=== PATIENT | female | born 2000 | race Caucasian/White ===

== ENCOUNTER 2023-05-05 08:28 | Outpatient (CLI) | payer MEDICAID, SELFPAY | END 2023-05-05 08:29 | disposition home or self-care (01) | LOC: AMB 05-06 15:55 | PROVIDERS: Visit Provider Internal Medicine | DX: R55 Syncope and collapse (principal); I49.9 Cardiac arrhythmia, unspecified | CPT/HCPCS: A0425; A0429 ==

== ENCOUNTER 2023-05-05 08:49 | Emergency (ER) | payer MEDICAID, SELFPAY ==
[2023-05-05] VITALS (26 sets, daily range): BP systolic 124–151; BP diastolic 26–108; PULSE 97–150; RESP 18; TEMP 36.6; O2SAT 96–100; BMI 32.4
[2023-05-05] MEDS: 0.9 % SODIUM CHLORIDE 1000 ml 1,000 ML IV (08:50)
[2023-05-05] MEDS: MAGNESIUM IV 4 GM/100 ML PIGGYBACK IVPB (09:22)
--- NOTE | 2023-05-05 09:34 | ED.NURSE ---
Dr. Daily speaking with metal burrer.
[2023-05-05 09:35] LABS: Basophils Absolute Auto 0.07 K/uL (0.00-0.30); Basophils Percent Auto 0.6 % (0.0-3.0); Eosinophils Absolute Auto 0.39 K/uL (0.00-0.50); Eosinophils Percent Auto 3.6 % (0.0-7.0); Hemoglobin* 10.4 gm/dL (12.0-16.0); Immature Granulocytes Abs Auto 0.15 K/uL (0.00-0.30); Immature Granulocytes Pct Auto 1.4 %; Lymphocytes Percent Auto 13.4 % (20-44); Mean Corpuscular HGB Conc 30 gm/dL (32-36); Mean Corpuscular Hemoglobin 21 pg (26-34); Mean Corpuscular Volume 72 fL (80-100); Monocytes Percent Auto 4.2 % (0.0-11.0); Neutrophils Percent Auto 76.8 % (42.0-72.0); Platelet Count* 253 K/uL (140-440); RDW Coefficient of Variation % 17.6 % (11.5-15.5); Red Blood Count 4.89 m/uL (4.00-5.20); White Blood Count* 10.88 K/uL (4.50-11.00)
[2023-05-05 09:38] LABS: Slide Review Reflex Yes
[2023-05-05 09:43] LABS: Appearance Urine Clear (Clear); Bilirubin Urine Negative (Negative); Blood Urine Negative (Negative); Color Urine Yellow (Yellow); Glucose Urine Negative (Negative); Ketones Urine Negative (Negative); Leukocyte Esterase Urine Negative (Negative); Nitrite Urine Negative (Negative); Protein Urine Negative (Negative); Specific Gravity Urine 1.015 (1.000-1.030); Urobilinogen Urine 0.2 (0.2-1.0); pH Urine 7.5 (5.0-8.5)
--- NOTE | 2023-05-05 09:45 | P.GYNCN_ITS ---
VICE PRESIDENT OF BUSINESS DEVELOPMENT - CN: HPI Data of Consult Time Seen by Provider: 09:10 Date Seen: 05/05/23 Patient: Other ( at [facility] on 05/03/2023.) Consult date: 05/05/23 Requesting Physician: Dr. Alon Daily Consult Narrative Reason for consult: other (Seizures, elevated BP, tachycardic) Narrative: Merry Vargas is a 22 year old 2 para 2 who was brought to the emergency department by EMS this morning after loosing consciousness at home. When she arrived at the ED she was nonresponsive and was having spastic movements of hands and feet. When she became conscious she was somewhat confused. She did not lose control of urination or defecation. She and her spouse, Jesús, recently moved to [place]. She delivered a term girl on 05/03/2023 at [facility] at approximately 2:00 a.m.. She was discharged home yesterday on 05/04/2023. She was told to watch her blood pressure because she had a few elevated blood pressures . She reports that she did not have any serum blood testing. She states that she has had problems with headache starting the week prior to delivery and continued . Also states that she was having small seizures prior to delivery. She states she does not feel that the physicians at [facility] were listening to her. She is anxious that she is dying. Well taking this history it was noticed that the patient was moving back and forth and states that she feels like she is going to have another episode. Prior to delivery she states that these episodes were not severe and just felt like she was going to faint. She states she took her blood pressure this morning and she thinks it was 130s/ 80s. 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 She is extremely edematous and had a blood pressure of 140's/80's on admission. Preeclampsia labs are pending. She received a magnesium 4 g IV load and is now receiving magnesium 2 g IV Q hour for at least 24 hours. If she continues to have seizures Ativan 2-4 mg IV every 10-15 minutes. The patient is being transferred to [facility] via helicopter. MEDICAL HISTORY: 1. Asthma: Uses an albuterol inhaler p.r.n. 2. Anxiety/depression: Sertraline 50 mg daily SURGICAL HISTORY: No history of surgery OBSTETRIC/GYNECOLOGIC HISTORY: Merry has had 2 pregnancies: 1. 03/09/2021. at term, male, Chuy. Father of this baby is different than the father of her most recent baby. Complications of this or delivery. 2. 05/03/2023. at term, female, Aidan. Complicated by eclampsia diagnosed PPD#2. Cis-gender, heterosexual woman Sexually transmitted infections: No Pelvic inflammatory disease: No MRSA infection: No. History of abnormal Pap smears: Has not had a Pap smear as she is not 23 years old. Nothing for contraception SOCIAL HISTORY: Relationship status: . Spouse/Partner: Graciela. 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 Illicit or Recreational drug use: No. Concerns for safety at home/work: No. Would like to discuss issues of abuse: No. Dietary restrictions: No Exercise: No FAMILY HISTORY: 1. Hypertension: Maternal grandmother. 2. Heart disease: Maternal grandfather Negative for recurrent defects, stillbirth, recurrent loss, mental disabilities, genetic or inherited disorders. ALLERGIES: NKDA cc:: CC: [facility] Social History Smoking Status: Former smoker How often do you have a drink containing alcohol: never AUDIT-C Alcohol total score: 0 Non-prescribed substance use: denies use service: No Meds Home Medications and Allergies Allergies Allergy/AdvReac Type Severity Reaction Status Date / Time No Known Drug Allergies Allergy Verified 05/05/23 08:58 VICE PRESIDENT OF BUSINESS DEVELOPMENT - Exam Physical Exam: Vital signs: Temp Pulse Resp BP Pulse Ox O2 Del Method 98 F 135 H 18 124/89 99 Room Air 05/05/23 08:59 05/05/23 09:32 05/05/23 08:59 05/05/23 09:32 05/05/23 09:32 05/05/23 08:59 Narrative: GENERAL APPEARANCE: Pleasant, , appears somewhat agitated and confused VITAL SIGNS: as noted in nursing notes HEAD: Facial edema. THYROID: no masses, nodularity, tenderness or enlargement. LUNGS: Clear to auscultation bilaterally without wheezes, rales or rhonchi. HEART: Regular rate and rhythm with normal S1 and S2. No gallop, rub or murmur. GENITOURINARY: Deferred. EXTREMITIES: 2+ bilateral lower extremity edema to the mid leg, (+)facial edema NEUROLOGIC: Postictal confusion no apparent other neurologic affects. Patient reports feeling weak. PSYCHIATRIC: Somewhat confused but is oriented x3. Slow speech. Normal eye contact. Appropriately tearful. SKIN: Warm, dry, and well perfused. Good turgor. No lesions, nodules or rashes. VICE PRESIDENT OF BUSINESS DEVELOPMENT - Results Labs Labs: Short CBC 05/05/23 Range/Units 09:15 WBC 10.88 (4.50-11.00) K/uL Hgb 10.4 L (12.0-16.0) gm/dL Hct 35.0 (33.0-51.0) % Plt Count 253 (140-440) K/uL Urine 05/05/23 Range/Units 09:08 Urine Color Yellow (Yellow) Urine Appearance Clear (Clear) Urine pH 7.5 (5.0-8.5) Ur Specific [place] 1.015 (1.000-1.030) Urine Protein Negative (Negative) Urine Glucose (UA) Negative (Negative) Assessment and Plan Assessment and plan (1) Eclampsia: Status: Acute Plan 1. Serum preeclampsia labs ordered, pending 2. Magnesium 4 g IV load completed. Running magnesium IV 2 g/hour. 3. If the patient has more seizures: Ativan IV 2-4 g IV
[2023-05-05] MEDS: LACTATED RINGERS 1000 ML 1,000 ML 75 ML IV (09:47)
[2023-05-05 09:50] LABS: Albumin* 3.5 g/dL (3.3-5.0); Chloride* 108 mmol/L (96-114)
--- NOTE | 2023-05-05 09:50 | ED_ITS ---
HPI - Syncope General Chief Complaint: Syncope/Fainted Stated Complaint: syncope Time Seen by Provider: 05/05/23 09:47 History of Present Illness HPI narrative: Patient is a 22-year-old woman who is 2 para 2 who had normal term gestation baby 2 days ago. Patient had some elevated blood pressures during her and was told what her blood pressure carefully at home. Patient was discharged from [facility] yesterday and has been having syncopal and presyncopal episodes at home. Patient has not been feeling well. She has had a small amount of vaginal bleeding. Today she had a major syncopal episode and actually fell to the ground. Her called 911 she was brought to the emergency room where she was nonverbal with repetitive activities of the head neck. She did come out of this and did have some post echo confusion but no incontinence. Patient's blood pressure and pulse are noted to be elevated. OBGYN was immediately called to the bedside and they graciously came by. Related Data Allergies Allergy/AdvReac Type Severity Reaction Status Date / Time No Known Drug Allergies Allergy Verified 05/05/23 08:58 Review of Systems Status of ROS: Reports: unobtainable due to mental status PFSH PFS Social History Smoking Status: Former smoker How often do you have a drink containing alcohol: never AUDIT-C Alcohol total score: 0 Non-prescribed substance use: denies use service: No Exam Narrative: Exam Narrative: Postictal exam EXAM GENERAL: Patient appears to be in moderate distress with tachycardia hypertension. EYES: No scleral icterus. LYMPH: No supraclavicular or cervical lymphadenopathy. SKIN: Visible skin seen during exam normal or with benign process only. EXT: 2+ lower extremity edema. HEART: Tachycardic LUNGS: Clear to auscultation bilaterally with no crackles or wheezes. ABD: Soft, non tender, non distended. PSYCH: Good eye contact, speech is not pressured. Const: Vital Signs, click to edit/add: Vital Signs - 24 hr 05/05/23 08:59 05/05/23 09:21 05/05/23 09:26 Temperature 98 F Pulse Rate 135 H 143 H Pulse Rate [Apical ] 107 H Respiratory Rate 18 Blood Pressure 148/84 H Blood Pressure [Le ft Upper Arm] 147/108 H Pulse Oximetry 98 99 100 Oxygen Delivery Me thod Room Air 05/05/23 09:30 05/05/23 09:32 05/05/23 09:33 Temperature Pulse Rate 138 H 135 H 126 H Pulse Rate [Apical ] Respiratory Rate Blood Pressure 124/89 Blood Pressure [Le ft Upper Arm] Pulse Oximetry 98 99 100 Oxygen Delivery Me thod 05/05/23 09:40 05/05/23 09:42 Temperature Pulse Rate 137 H 134 H Pulse Rate [Apical ] Respiratory Rate Blood Pressure 140/87 H Blood Pressure [Le ft Upper Arm] Pulse Oximetry 100 99 Oxygen Delivery Me thod Course Course Hospital Course: Patient seen and examined. OBGYN called immediately as patient is eclamptic. Vital Signs Vital signs: Initial Vital Signs Temperature 98 F 05/05/23 08:59 Temperature Source Temporal Artery Scan 05/05/23 08:59 Pulse Rate 107 H 05/05/23 08:59 Pulse Rhythm Regular 05/05/23 08:59 Respiratory Rate 18 05/05/23 08:59 Blood Pressure 147/108 H 05/05/23 08:59 Blood Pressure Mean 121 H 05/05/23 08:59 Blood Pressure Position Supine 05/05/23 08:59 Pulse Oximetry 98 05/05/23 08:59 Oxygen Delivery Method Room Air 05/05/23 08:59 Vital Signs Temperature 98 F 05/05/23 08:59 Pulse Rate 107 H 05/05/23 08:59 Respiratory Rate 18 05/05/23 08:59 Blood Pressure 147/108 H 05/05/23 08:59 Pulse Oximetry 98 05/05/23 08:59 Oxygen Delivery Method Room Air 05/05/23 08:59 Temperature 98 F 05/05/23 08:59 Pulse Rate 134 H 05/05/23 09:42 Respiratory Rate 18 05/05/23 08:59 Blood Pressure 140/87 H 05/05/23 09:42 Pulse Oximetry 99 05/05/23 09:42 Oxygen Delivery Method Room Air 05/05/23 08:59 MDM - Syncope MDM Narrative Medical decision making narrative: Patient is a 22-year-old woman who presents with a clamp see a. OBGYN called to the bedside. He was established patient received IV magnesium. She was medically stabilized with IV fluids and we did have the [place] supervisor from [facility] come down to help with care. Patient is receiving IV magnesium and standard treatment. We have arranged for transfer to the ICU at [facility] she will be gone by air. She is leaving and stable condition but I am still very concerned. Critical care time 1:00 hour. Differential Diagnosis Differential diagnosis: Likely syncope due to orthostatic hypotension, vasovagal syncope, complete atrioventricular block, subarachnoid hemorrhage, pulmonary embolism and dehydration Lab Data Labs: Lab Results 05/05/23 05/05/23 Range/Units 09:08 09:15 WBC 10.88 (4.50-11.00) K/uL RBC 4.89 (4.00-5.20) m/uL Hgb 10.4 L (12.0-16.0) gm/dL Hct 35.0 (33.0-51.0) % MCV 72 L (80-100) fL MCH 21 L (26-34) pg MCHC 30 L (32-36) gm/dL RDW Coeff of [place] 17.6 H (11.5-15.5) % Plt Count 253 (140-440) K/uL Neut % (Auto) 76.8 H (42.0-72.0) % Lymph % (Auto) 13.4 L (20-44) % [place] % (Auto) 4.2 (0.0-11.0) % Eos % (Auto) 3.6 (0.0-7.0) % Baso % (Auto) 0.6 (0.0-3.0) % Neut # (Auto) 8.40 H (1.7-7.0) K/uL Lymph # (Auto) 1.50 (0.90-2.90) K/uL [place] # (Auto) 0.50 (0.00-0.90) K/UL Eos # (Auto) 0.39 (0.00-0.50) K/uL Baso # (Auto) 0.07 (0.00-0.30) K/uL Abs Immat Gran (auto) 0.15 (0.00-0.30) K/uL Imm/Tot Granulo (auto) 1.4 % Urine Color Yellow (Yellow) Urine Appearance Clear (Clear) Urine pH 7.5 (5.0-8.5) Ur Specific [place] 1.015 (1.000-1.030) Urine Protein Negative (Negative) Urine Glucose (UA) Negative (Negative) Urine Ketones Negative (Negative) Urine Blood Negative (Negative) Urine Nitrite Negative (Negative) Urine Bilirubin Negative (Negative) Urine Urobilinogen 0.2 (0.2-1.0) Ur Leukocyte Esterase Negative (Negative) Discharge Plan Discharge Clinical Impression: Eclampsia Patient Disposition: Xfer [facility] Discharge Location: [facility] Condition: Critical Activity Level: Other Discharge Diet: Other Stand Alone Forms: MyHealth Info Instructions
[2023-05-05 09:51] LABS: Potassium* 3.3 mmol/L (3.6-5.1); Sodium* 139 mmol/L (135-149)
[2023-05-05 09:53] LABS: Alkaline Phosphatase* 80 U/L (40-150); Aspartate Amino Transferase* 24 U/L (12-35); Bilirubin Total* 0.3 mg/dL (0.1-1.5); Blood Urea Nitrogen* 5 mg/dL (5-24); Carbon Dioxide* 24 mmol/L (20-32); Creatinine* 0.7 mg/dL (0.5-1.5); Est. Creatinine Clearance* 124.67; Estimated Glomerular Filt Rate 127 ml/min; Total Protein* 6.6 g/dL (6.0-8.3)
[2023-05-05 09:54] LABS: Alanine Aminotransferase* 17 U/L (4-35); Calcium* 8.7 mg/dL (8.4-10.6); Glucose* 88 mg/dL (60-115)
[2023-05-05 10:01] LABS: Slide Review Acceptable Review (Acceptable)
[2023-05-05 10:06] LABS: Troponin I* < 0.01 ng/mL (0.01-0.04)
== END 2023-05-05 10:45 | disposition short-term general hospital (02) ==
PROVIDERS: Emergency Provider Internal Medicine
DX: O15.2 Eclampsia complicating the puerperium (principal)
CPT/HCPCS: 36415; 80053; 81003; 84484; 85025; 87040; 93005; 96365; 96366; 96375; 99284; 99291; J3475; J7030; J7120

== ENCOUNTER 2023-05-08 18:15 | Emergency (ER) | payer MEDICAID, SELFPAY ==
[2023-05-08] VITALS (17 sets, daily range): BP systolic 143–150; BP diastolic 86–109; PULSE 79–108; RESP 20; TEMP 37; O2SAT 96–98; BMI 30.5
--- NOTE | 2023-05-08 18:50 | ED.NURSE ---
patient is concerned of having another seizure and is feeling lightheaded and tinging in the back of the head. rechecked bp 145/109. talking with patient taken Seroquel 25 mg tonight at 1800 as missed mourning dose. Updated Dr. Bray of patient's concern.
--- NOTE | 2023-05-08 19:16 | ED.GENADULT ---
HPI - General Adult General Chief complaint: Headache/Migraine Stated complaint: high BP, headache, nausea, clammy Time Seen by Provider: 05/08/23 18:37 History of Present Illness HPI narrative: This 22-year-old female is 4 days and 2 days status post eclampsia seizure. She was seen here 2 days ago with a seizure and transferred to [facility]. She was discharged yesterday. She comes in today stating that she feels some tingling sensation and wonders if this is a precursor to another seizure. She states that she does have some generalized anxiety and during her hospitalization she had 2 visits with psychiatrist as there was apparently some realization that there is an anxiety component to her symptoms. She does report a mild to moderate headache. She did have lots of pedal edema a couple days ago but this has completely resolved. The patient did receive magnesium sulfate for 24 hours according to protocol for eclampsia. She was not placed on a blood pressure medicine and has a follow-up appointment to review that possible need. She arrives here with blood pressure in the 140s for systolic value and the diastolic value around 90. The patient is breast-feeding. Related Data Previous Rx's Medication Instructions Recorded nifedipine 30 mg tablet,extended 30 mg PO DAILY #30 tabs 05/08/23 release Allergies Allergy/AdvReac Type Severity Reaction Status Date / Time No Known Drug Allergies Allergy Verified 05/08/23 18:23 Review of Systems Status of ROS: Reports: 10 or more systems reviewed and unremarkable except as noted in History and below Narrative: Constitutional: No fevers, no weight gain or loss. Eyes: No discharge. No vision changes. HENT: No congestion, no sore throat, no ear pain. Cardiovascular: No chest pain, no palpitations. Respiratory: No shortness of breath, no wheezes, no cough. Gastrointestinal: No vomiting, no diarrhea. Genitourinary: No dysuria, no hematuria. Musculoskeletal: Normal range of motion. Skin: No rashes, no pruritis. Neurological: No dizziness, weakness, sensory change, speech change. Endo/Heme/Allergies: No bruising or bleeding. No polydipsia. Pysch: no suicidality, no insomnia. All other systems reviewed and are negative. [facility] Social History Smoking Status: Former smoker Do you use any of these nicotine containing products: None Second hand tobacco smoke exposure: No How often do you have a drink containing alcohol: never How often do you have six or more drinks on one occasion: Never AUDIT-C Alcohol total score: 0 Non-prescribed substance use: denies use service: No Exam Narrative: Exam Narrative: Constitutional: Well-developed, well-nourished, no acute distress. HEENT: Normocephalic, atraumatic. Neck: Normal range of motion. Nontender. Supple. Heart: Regular. No murmurs. Normal rate. Intact distal pulses. Lungs: Clear to auscultation. No chest discomfort. No wheezes, rhonchi, or rales. Abdomen: Normal bowel sounds. A abdomen. Genitalia: Deferred. Back: No midline tenderness. Normal range of motion. Extremities: Normal range of motion. No injury. Skin: Intact. No rash. Warm. No erythema or pallor. Neurologic: No altered sensation. No weakness. Alert and oriented. Psychiatric: No suicidality. No anxiety or depression. No insomnia. Nursing notes and vitals signs are reviewed. Const: Vital Signs, click to edit/add: Vital Signs - 24 hr 05/08/23 18:23 05/08/23 18:35 05/08/23 18:36 Temperature 98.6 F Pulse Rate 93 85 Pulse Rate [Pulse Oximeter] 79 Respiratory Rate 20 Blood Pressure 144/90 H Blood Pressure [Ri ght Upper Arm] 149/93 H Pulse Oximetry 97 97 97 Oxygen Delivery Me thod Room Air 05/08/23 18:45 05/08/23 18:46 05/08/23 19:00 Temperature Pulse Rate 88 99 89 Pulse Rate [Pulse Oximeter] Respiratory Rate Blood Pressure 145/109 H Blood Pressure [Ri ght Upper Arm] Pulse Oximetry 98 98 97 Oxygen Delivery Me thod 05/08/23 19:01 Temperature Pulse Rate 89 Pulse Rate [Pulse Oximeter] Respiratory Rate Blood Pressure 145/95 H Blood Pressure [Ri ght Upper Arm] Pulse Oximetry 96 Oxygen Delivery Me thod Course Vital Signs Vital signs: Initial Vital Signs Temperature 98.6 F 05/08/23 18:23 Temperature Source Temporal Artery Scan 05/08/23 18:23 Pulse Rate 79 05/08/23 18:23 Pulse Rhythm Regular 05/08/23 18:23 Respiratory Rate 20 05/08/23 18:23 Blood Pressure 149/93 H 05/08/23 18:23 Blood Pressure Mean 111 H 05/08/23 18:23 Blood Pressure Position Supine 05/08/23 18:23 Pulse Oximetry 97 05/08/23 18:23 Oxygen Delivery Method Room Air 05/08/23 18:23 Vital Signs Temperature 98.6 F 05/08/23 18:23 Pulse Rate 79 05/08/23 18:23 Respiratory Rate 20 05/08/23 18:23 Blood Pressure 149/93 H 05/08/23 18:23 Pulse Oximetry 97 05/08/23 18:23 Oxygen Delivery Method Room Air 05/08/23 18:23 Temperature 98.6 F 05/08/23 18:23 Pulse Rate 89 05/08/23 19:01 Respiratory Rate 20 05/08/23 18:23 Blood Pressure 145/95 H 05/08/23 19:01 Pulse Oximetry 96 05/08/23 19:01 Oxygen Delivery Method Room Air 05/08/23 18:23 Medical Decision Making MDM Narrative Medical decision making narrative: This patient comes in 4 days and did have a eclamptic seizure 2 days ago. She does arrive with blood pressure at around 145 systolic. Her blood pressure remained at this level throughout her stay here. She was just discharged from the hospital yesterday and there are plans to follow-up with her regular doctor to consider ongoing antihypertensive management. Currently she is not taking any such medicine. She reports a mild headache but states that her pedal edema is completely resolved. She does have some anxiety related to these recent circumstances and prior to this with some generalized anxiety. The patient did receive an oral dose of Zofran and [place]. I did connect with the OBGYN physician on-call, Dr. Baez, who recommended nifedipine 30 mg daily. The patient is okay to return home and does have follow-up appointment for ongoing management. A prescription for nifedipine is provided. The patient also received a 30 mg dose orally here in the emergency department. Discharge Plan Discharge Clinical Impression: Essential hypertension in patient Patient Disposition: Home, Self-Care Condition: Stable Additional Instructions: Take nifedipine as prescribed. Follow up with MD appointment as scheduled. Return if worsening. Prescriptions: New nifedipine 30 mg tablet extended release 30 mg PO DAILY Qty: 30 2RF Follow Up/Referrals: Provider,Not a Local [Primary Care Provider] - Stand Alone Forms: MyHealth Info Instructions
[2023-05-08] MEDS: ONDANSETRON ODT 4 MG TAB PO (19:20)
[2023-05-08] MEDS: NIFEdipine 30 MG TAB.ER.24 PO (20:21)
== END 2023-05-08 20:28 | disposition home or self-care (01) ==
PROVIDERS: Emergency Provider Emergency Medicine Emergency Medical Services
DX: O16.5 Unspecified maternal hypertension, complicating the puerperium (principal)
CPT/HCPCS: 99283; 99284; A9270

== ENCOUNTER 2023-05-10 16:11 | Emergency (ER) | payer MEDICAID, SELFPAY ==
[2023-05-10] VITALS (7 sets, daily range): BP systolic 121–129; BP diastolic 73–80; PULSE 79–98; RESP 18; TEMP 37.1; O2SAT 97–98; BMI 30.5
[2023-05-10 16:38] LABS: Appearance Urine Cloudy (Clear); Bilirubin Urine Negative (Negative); Blood Urine Trace-intact (Negative); Color Urine Yellow (Yellow); Glucose Urine Negative (Negative); Ketones Urine Negative (Negative); Leukocyte Esterase Urine Negative (Negative); Nitrite Urine Negative (Negative); Protein Urine Negative (Negative); Urobilinogen Urine 0.2 (0.2-1.0); pH Urine 7.5 (5.0-8.5)
--- NOTE | 2023-05-10 16:38 | CRLHL7_ITS ---
For Patients: As a result of the Century Cures Act, medical imaging exams and procedure reports are released immediately into your electronic medical record. You may view this report before your referring provider. If you have questions, please contact your health care provider. INDICATION: Right flank pain. TECHNIQUE: CT abdomen and pelvis without contrast. Permanently recorded images are archived. COMPARISON: None. FINDINGS: Lower chest: Unremarkable. Liver: Normal in size and attenuation. No suspicious masses. Gallbladder and bile ducts: No stones or inflammation. No biliary dilatation. Pancreas: Unremarkable. No mass or inflammation. Spleen: Normal in size. No masses. Adrenal glands: Normal in size. No nodules. Kidneys, Ureters, and Bladder: No suspicious renal masses, stones, or hydronephrosis. Unremarkable ureters. Normal bladder. GI tract: Unremarkable. Normal in caliber. No sign of inflammation. Normal appendix. Vasculature: Abdominal aorta is normal in caliber. Lymph nodes: No lymphadenopathy. Peritoneum/Abdominal Wall: Unremarkable. No free air or significant free fluid. Pelvis: Bulky uterus with increased myometrial thickness. Otherwise limited evaluation due to noncontrast technique. No adnexal mass. Bones: Unremarkable for age. IMPRESSION: No acute findings in the abdomen and pelvis. No urolith or evidence of obstructive uropathy. Bulky uterus with increased myometrial thickness. This could be on the basis of adenomyosis or multiple fibroids. Recommend pelvic ultrasound for further evaluation. Please note that all CT scans at this facility use dose modulation, iterative reconstruction, and/or weight-based dosing when appropriate to reduce radiation dose to as low as reasonably achievable. Dictated by Cruz Garrido MD @ 05/10/2023 6:23:27 PM (Electronically Signed)
--- NOTE | 2023-05-10 16:39 | CRLHL7_ITS ---
For Patients: As a result of the Century Cures Act, medical imaging exams and procedure reports are released immediately into your electronic medical record. You may view this report before your referring provider. If you have questions, please contact your health care provider. INDICATION: Shortness of breath TECHNIQUE: Chest 2 view. Permanently recorded images are archived. COMPARISON: None. FINDINGS: Cardiovascular and mediastinum: Heart size and vasculature are normal in caliber and appearance. Lungs and pleural spaces: The lungs are clear. No pleural effusion or pneumothorax. Bones and soft tissues: Mild dextroconvex curvature of the spine. Otherwise, unremarkable for age. IMPRESSION: No evidence of an acute pulmonary process. Dictated by Cruz Garrido MD @ 05/10/2023 6:23:48 PM (Electronically Signed)
--- NOTE | 2023-05-10 16:39 | CRLHL7_ITS ---
For Patients: As a result of the Century Cures Act, medical imaging exams and procedure reports are released immediately into your electronic medical record. You may view this report before your referring provider. If you have questions, please contact your health care provider. INDICATION: Vision changes TECHNIQUE: CT of the head without contrast. Coronal and sagittal reformats. Bone and soft tissue algorithms. COMPARISON: No prior studies available for comparison at this institution. FINDINGS: No acute intracranial hemorrhage or extraaxial collection. No evidence of acute cortical infarction. No mass effect or midline shift. The ventricles and sulci are age appropriate. Orbital contents are normal. No calvarial fractures. Unremarkable pituitary gland and sella. Unremarkable optic chiasm. No lytic or sclerotic osseous lesions within the calvarium or skull base. Scalp and other imaged soft tissue structures are normal. Mastoid air cells are clear. Rightward deviation of the nasal septum. Mild polypoid mucosal thickening in the right maxillary sinus. No evidence of dural venous sinus thrombosis. IMPRESSION: No acute intracranial abnormality. Please note that all CT scans at this facility use dose modulation, iterative reconstruction, and/or weight-based dosing when appropriate to reduce radiation dose to as low as reasonably achievable. Dictated by Ruddy Pa MD @ 05/10/2023 5:57:42 PM (Electronically Signed)
[2023-05-10 16:47] LABS: Amorphous Sediment Urine Few; RBC Urine 0-2 (0-2); Squamous Epithelial Cell Urine Few (None-Few); WBC Urine 0-2 (0-5)
--- NOTE | 2023-05-10 17:06 | ED_ITS ---
HPI - General Adult General Date Seen: 05/10/23 Chief complaint: Abdominal Pain Stated complaint: R side pain Time Seen by Provider: 05/10/23 16:14 Source: patient Mode of arrival: ambulatory Limitations: no limitations History of Present Illness HPI narrative: Patient is a 22-year-old female with most recent delivery 05/03 with a history of eclampsia 6 days ago and essential hypertension present to to the emergency department for multiple complaints. She states since her seizure she has been noticing worsening vision in her right side. She has also been having a mild headache. She took Tylenol for the pain with only helped minimally. She last took it at 09:00. He she also states she has been having right flank pain. Symptoms have been radiated to the right upper quadrant but pain is worse on the right flank. This has been going for the past couple days. She has also nose with a past couple days she has been having foul-smelling urine. She states that has been getting worse but denies dysuria or polyuria. She says she has been eating and drinking well without issues. Has been having some nausea but no vomiting. Does states she has had some mild shortness of breath compared to her baseline denies any chest pain. She states she did not get short of breath walking from her car to the triage area but the states she was more short of breath than normal walking up multiple flights of stairs today. Denies fevers, chills, diarrhea, constipation, weakness, numbness. Related Data Home Medications Medication Instructions Recorded Confirmed magnesium sulfate PO 05/10/23 [id number] ps-folate 1 PO 05/10/23 quetiapine 50 mg tablet (Seroquel) 50 mg PO QHS 05/10/23 05/10/23 valacyclovir 500 mg tablet 500 mg PO DAILY 05/10/23 05/10/23 (Valtrex) Previous Rx's Medication Instructions Recorded nifedipine 30 mg tablet,extended 30 mg PO DAILY #30 tabs 05/08/23 release Allergies Allergy/AdvReac Type Severity Reaction Status Date / Time No Known Drug Allergies Allergy Verified 05/08/23 18:23 Review of Systems Status of ROS: Reports: 10 or more systems reviewed and unremarkable except as noted in History and below PFSH PFS Social History Smoking Status: Former smoker Do you use any of these nicotine containing products: None Second hand tobacco smoke exposure: No How often do you have a drink containing alcohol: never How often do you have six or more drinks on one occasion: Never AUDIT-C Alcohol total score: 0 Non-prescribed substance use: denies use service: No Exam Narrative: Exam Narrative: Const: Well-nourished, Well-developed, in mild distress Eyes: PERRL, no conjunctival injection, and symmetrical lids ENMT: Atraumatic external nose and ears. Moist mucous membranes. Neck: Symmetric, trachea midline, No thyromegaly. CVS: RRR, No murmurs or gallops. Peripheral pulses 2+ and equal in all extremities RESP: Unlabored respiratory effort. Clear to auscultation bilaterally. GI: Minimal tenderness right upper quadrant. Right CVA tenderness. Nondi stended, No rebound or guarding. MSK:Extremities w/o deformity, Normal Active ROM Skin: Warm, Dry. No rashes or lesions. Neuro: Normal Muscle tone, No focal neurological deficits. Psych: Awake, Alert, & Oriented x3. Appropriate mood and affect. Const: Vital Signs, click to edit/add: Vital Signs - 24 hr 05/10/23 16:15 05/10/23 17:07 05/10/23 17:31 Temperature 98.7 F Pulse Rate 94 98 Pulse Rate [Pulse Oximeter] 92 Respiratory Rate 18 Blood Pressure Blood Pressure [Ri ght Upper Arm] 126/80 Pulse Oximetry 98 98 97 Oxygen Delivery Me thod Room Air 05/10/23 17:54 05/10/23 17:55 05/10/23 18:00 Temperature Pulse Rate 79 86 92 Pulse Rate [Pulse Oximeter] Respiratory Rate Blood Pressure 129/73 Blood Pressure [Ri ght Upper Arm] Pulse Oximetry 98 98 98 Oxygen Delivery Me thod 05/10/23 18:01 Temperature Pulse Rate 87 Pulse Rate [Pulse Oximeter] Respiratory Rate Blood Pressure 121/79 Blood Pressure [Ri ght Upper Arm] Pulse Oximetry 97 Oxygen Delivery Me thod Course Vital Signs Vital signs: Initial Vital Signs Temperature 98.7 F 05/10/23 16:15 Temperature Source Temporal Artery Scan 05/10/23 16:15 Pulse Rate 92 05/10/23 16:15 Respiratory Rate 18 05/10/23 16:15 Blood Pressure 126/80 05/10/23 16:15 Blood Pressure Mean 95 05/10/23 16:15 Blood Pressure Position Supine 05/10/23 16:15 Pulse Oximetry 98 05/10/23 16:15 Oxygen Delivery Method Room Air 05/10/23 16:15 Vital Signs Temperature 98.7 F 05/10/23 16:15 Pulse Rate 92 05/10/23 16:15 Respiratory Rate 18 05/10/23 16:15 Blood Pressure 126/80 05/10/23 16:15 Pulse Oximetry 98 05/10/23 16:15 Oxygen Delivery Method Room Air 05/10/23 16:15 Temperature 98.7 F 05/10/23 16:15 Pulse Rate 87 05/10/23 18:01 Respiratory Rate 18 05/10/23 16:15 Blood Pressure 121/79 05/10/23 18:01 Pulse Oximetry 97 05/10/23 18:01 Oxygen Delivery Method Room Air 05/10/23 16:15 Medical Decision Making MDM Narrative Medical decision making narrative: Patient is a 22-year-old female presenting for multiple complaints. First complaint is a headache and some visual disturbance her right eye. This has been going on since her eclamptic seizure 6 days ago. She does take Tylenol for headache movement minimal improvement in symptoms. With a recent being and the seizure we will do a head CT to rule out any intracranial hemorrhages or other concerning acute abnormalities. She is also having some shortness of breath. This is being off for few days but she states it is mild. Her blood pressure is stable and she does not appear to be suffering from preec lampsia at this time. We will order a chest x-ray, EKG, troponin. She is PERC negative and D-dimer is not indicated. She is complaining of right flank pain has been going on since her seizure the radiates to her right upper quadrant. CBC, CMP, urinalysis and abdominal CT without contrast were ordered. Patient's lab work returned showing no concerning abnormalities. She does appear to have a microcytic anemia that has improved since she was previously here. She follow-up with a primary care provider for that. Urine does not appear to show a UTI. BMP shows no concerning abnormalities. Review a head CT which shows no acute abnormalities. Visual acuity shows 20/25 on the right eye and 20/20 on the left. Since this has been going on for few days I believe she can follow-up both patent with optometry with the minimal change in her vision. Chest x-ray shows no acute abnormalities. Troponin EKG showed no acute abnormalities. Abdominal CT also shows no acute abnormalities within a bulky uterus. Since she is at this time notes that the likely cause which we will have her follow-up with chemical waste management technician. Is not clear what is causing her vision changes at this time but she will follow up outpatient. For shortness of breath is also unclear exactly what could be secondary to microcytic anemia but she does have since giving in her seizure. I recommend she follow up with primary care for this. Her abdominal and flank pain is most likely muscle strain secondary to sequela from her seizure. She is doing well at this time. She will be discharged home. She is agreeable to this plan Lab Data Labs: Lab Results 05/10/23 05/10/23 Range/Units 16:33 16:58 WBC 10.81 (4.50-11.00) K/uL RBC 5.38 H (4.00-5.20) m/uL Hgb 11.5 L (12.0-16.0) gm/dL Hct 38.8 (33.0-51.0) % MCV 72 L (80-100) fL MCH 21 L (26-34) pg MCHC 30 L (32-36) gm/dL RDW Coeff of [place] 18.8 H (11.5-15.5) % Plt Count 384 (140-440) K/uL Neut % (Auto) 72.6 H (42.0-72.0) % Lymph % (Auto) 16.6 L (20-44) % [place] % (Auto) 6.8 (0.0-11.0) % Eos % (Auto) 3.1 (0.0-7.0) % Baso % (Auto) 0.6 (0.0-3.0) % Neut # (Auto) 7.80 H (1.7-7.0) K/uL Lymph # (Auto) 1.80 (0.90-2.90) K/uL [place] # (Auto) 0.70 (0.00-0.90) K/UL Eos # (Auto) 0.33 (0.00-0.50) K/uL Baso # (Auto) 0.07 (0.00-0.30) K/uL Abs Immat Gran (auto) 0.03 (0.00-0.30) K/uL Imm/Tot Granulo (auto) 0.3 % Sodium 137 (135-149) mmol/L Potassium 3.7 (3.6-5.1) mmol/L Chloride 105 (96-114) mmol/L Carbon Dioxide 24 (20-32) mmol/L BUN 20 (5-24) mg/dL Creatinine 0.9 (0.5-1.5) mg/dL Estimated Creat Clear 96.96 Estimated GFR 94 ml/min Glucose 93 (60-115) mg/dL Calcium 9.3 (8.4-10.6) mg/dL Troponin I < 0.01 L (0.01-0.04) ng/mL Urine Color Yellow (Yellow) Urine Appearance Cloudy A (Clear) Urine pH 7.5 (5.0-8.5) Ur Specific [place] 1.020 (1.000-1.030) Urine Protein Negative (Negative) Urine Glucose (UA) Negative (Negative) Urine Ketones Negative (Negative) Urine Blood Trace-intact A (Negative) Urine Nitrite Negative (Negative) Urine Bilirubin Negative (Negative) Urine Urobilinogen 0.2 (0.2-1.0) Ur Leukocyte Esterase Negative (Negative) Urine RBC 0-2 (0-2) Urine WBC 0-2 (0-5) Ur Squamous Epith Cells Few (None-Few) Amorphous Sediment Few A (None) Urine Bacteria None (None) ECG Data Attestation: I personally reviewed and interpreted this ECG as follows: (Normal sinus rhythm with rate of 94 beats per minute, occasional PVCs, normal axis, normal intervals, no ST or T-wave abnormalities.) Prior ECG tracings: available for review (05/05/2023) Discharge Plan Discharge Clinical Impression: Muscle strain, Microcytic anemia Patient Disposition: Home, Self-Care Condition: Stable Instructions: Anemia (ED) Additional Instructions: Your head CT showed no concerning abnormalities. Her visual acuity was only slightly. I recommend he follow up with Ophthalmology or Optometry if your visual acuity continues to worsen. Her shortness of breath could be secondary to her mild microcytic anemia. Unsure if this is a chronic issue or not I do recommend you follow-up with your primary care provider. This could be secondary to your recent and may improve over time on its own. Your flank pain is likely a muscle strain as is a results of your recent seizure. The abdominal CT shows no concerning abnormalities. It does show an enlarged uterus but this is normal after in will be back to its normal size most likely within 4 weeks. If symptoms continue to worsen to follow up with the chemical waste management technician Return emergency department for any new or worsening symptoms. Prescriptions: No Action nifedipine 30 mg tablet extended release 30 mg PO DAILY Qty: 30 2RF valacyclovir [Valtrex] 500 mg tablet 500 mg PO DAILY quetiapine [Seroquel] 50 mg tablet 50 mg PO QHS [id number] ps-folate 1 PO magnesium sulfate PO Follow Up/Referrals: Provider,Not a Local [Primary Care Provider] - Stand Alone Forms: [employer] Info Instructions
[2023-05-10 17:07] LABS: Basophils Absolute Auto 0.07 K/uL (0.00-0.30); Basophils Percent Auto 0.6 % (0.0-3.0); Eosinophils Absolute Auto 0.33 K/uL (0.00-0.50); Eosinophils Percent Auto 3.1 % (0.0-7.0); Hematocrit 38.8 % (33.0-51.0); Hemoglobin* 11.5 gm/dL (12.0-16.0); Immature Granulocytes Abs Auto 0.03 K/uL (0.00-0.30); Immature Granulocytes Pct Auto 0.3 %; Lymphocytes Percent Auto 16.6 % (20-44); Mean Corpuscular HGB Conc 30 gm/dL (32-36); Mean Corpuscular Hemoglobin 21 pg (26-34); Mean Corpuscular Volume 72 fL (80-100); Monocytes Percent Auto 6.8 % (0.0-11.0); Neutrophils Percent Auto 72.6 % (42.0-72.0); Platelet Count* 384 K/uL (140-440); RDW Coefficient of Variation % 18.8 % (11.5-15.5); Red Blood Count 5.38 m/uL (4.00-5.20); White Blood Count* 10.81 K/uL (4.50-11.00)
[2023-05-10 17:23] LABS: Slide Review Reflex No
[2023-05-10 17:24] LABS: Chloride* 105 mmol/L (96-114); Sodium* 137 mmol/L (135-149)
[2023-05-10 17:25] LABS: Potassium* 3.7 mmol/L (3.6-5.1)
[2023-05-10 17:27] LABS: Creatinine* 0.9 mg/dL (0.5-1.5); Est. Creatinine Clearance* 96.96; Estimated Glomerular Filt Rate 94 ml/min
[2023-05-10 17:28] LABS: Blood Urea Nitrogen* 20 mg/dL (5-24); Calcium* 9.3 mg/dL (8.4-10.6); Carbon Dioxide* 24 mmol/L (20-32); Glucose* 93 mg/dL (60-115)
[2023-05-10 17:44] LABS: Troponin I* < 0.01 ng/mL (0.01-0.04)
== END 2023-05-10 18:55 | disposition home or self-care (01) ==
PROVIDERS: Emergency Provider Student in an Organized Health Care Education/Training Program
DX: S39.011A Strain of muscle, fascia and tendon of abdomen, initial encounter (principal); D50.8 Other iron deficiency anemias
CPT/HCPCS: 36415; 70450; 71046; 74176; 80048; 81001; 84484; 85025; 93005; 99283; 99284; 99285

== ENCOUNTER 2023-05-13 23:15 | Emergency (ER) | payer MEDICAID, SELFPAY ==
[2023-05-13 23:21] VITALS: BP 126/79; PULSE 103; RESP 16; TEMP 36.1; O2SAT 97; BMI 30.5
--- NOTE | 2023-05-13 23:33 | ED_ITS ---
HPI - General Chief complaint: Vaginal Bleeding Stated complaint: 10 days , cramping and heavy bleeding. Time Seen by Provider: 05/13/23 23:17 History of Present Illness HPI Narrative: Patient is a 22-year-old woman who delivered a baby approximately 10 days ago who was seen 2 days later with eclampsia with seizure. She was stabilized on IV magnesium and was sent to the ICU at [place]. She is discharged home the next day and has been in 2 other times for complaints of visual changes headaches body aches fatigue and malaise. Workup has been unremarkable patient was started on Procardia for her blood pressure and blood pressure looks great at 126/79. Patient has had low level vaginal bleeding since her delivery but her bleeding has picked up in tonight to greater than 1 pad per hour. Patient is having no nausea no vomiting no fevers no chills and otherwise has been feeling better with regards to her other concerns. She states that her vaginal drainage is foul smelling. She has no dysuria no other related symptoms. No abdominal pain or fever. Related Data Home Medications Medication Instructions Recorded Confirmed magnesium sulfate PO 05/10/23 [id number] ps-folate 1 PO 05/10/23 quetiapine 50 mg tablet (Seroquel) 50 mg PO QHS 05/10/23 05/13/23 valacyclovir 500 mg tablet 500 mg PO DAILY 05/10/23 05/13/23 (Valtrex) Previous Rx's Medication Instructions Recorded nifedipine 30 mg tablet,extended 30 mg PO DAILY #30 tabs 05/08/23 release Allergies Allergy/AdvReac Type Severity Reaction Status Date / Time No Known Drug Allergies Allergy Verified 05/13/23 23:27 Review of Systems Status of ROS: Reports: 10 or more systems reviewed and unremarkable except as noted in History and below [facility] Medical History Seizure ?R56.9 - Unspecified convulsions (ICD-10) Preeclampsia ?O14.90 - Unspecified pre-eclampsia, unspecified trimester (ICD-10) Social History Smoking Status: Former smoker Do you use any of these nicotine containing products: None Second hand tobacco smoke exposure: No How often do you have a drink containing alcohol: never How often do you have six or more drinks on one occasion: Never AUDIT-C Alcohol total score: 0 Non-prescribed substance use: denies use service: No Exam Narrative: Exam Narrative: EXAM GENERAL: Patient appears comfortable and well. EYES: No scleral icterus. LYMPH: No supraclavicular or cervical lymphadenopathy. SKIN: Visible skin seen during exam normal or with benign process only. EXT: No dependent lower extremity pedal edema. HEART: Regular rate and rhythm with no murmurs, rubs, or gallops. LUNGS: Clear to auscultation bilaterally with no crackles or wheezes. ABD: Soft, non tender, non distended. PSYCH: Good eye contact, speech is not pressured. Const: Vital Signs, click to edit/add: Vital Signs - 24 hr 05/13/23 23:21 Temperature 96.9 F L Pulse Rate [Pulse Oximeter] 103 H Respiratory Rate 16 Blood Pressure [Le ft Upper Arm] 126/79 Pulse Oximetry 97 Oxygen Delivery Me thod Room Air Course Course Hospital Course: Patient seen examined CBC PT PTT CMP pelvic ultrasound requested. Vital Signs Vital signs: Initial Vital Signs Temperature 96.9 F L 05/13/23 23:21 Temperature Source Temporal Artery Scan 05/13/23 23:21 Pulse Rate 103 H 05/13/23 23:21 Pulse Rhythm Regular 05/13/23 23:21 Pulse Strength 3+ Normal 05/13/23 23:21 Respiratory Rate 16 05/13/23 23:21 Blood Pressure 126/79 05/13/23 23:21 Blood Pressure Mean 94 05/13/23 23:21 Pulse Oximetry 97 05/13/23 23:21 Oxygen Delivery Method Room Air 05/13/23 23:21 Vital Signs Temperature 96.9 F L 05/13/23 23:21 Pulse Rate 103 H 05/13/23 23:21 Respiratory Rate 16 05/13/23 23:21 Blood Pressure 126/79 05/13/23 23:21 Pulse Oximetry 97 05/13/23 23:21 Oxygen Delivery Method Room Air 05/13/23 23:21 Temperature 96.9 F L 05/13/23 23:21 Pulse Rate 103 H 05/13/23 23:21 Respiratory Rate 16 05/13/23 23:21 Blood Pressure 126/79 05/13/23 23:21 Pulse Oximetry 97 05/13/23 23:21 Oxygen Delivery Method Room Air 05/13/23 23:21 MDM - OB/Uterine Contractions MDM Narrative Medical decision making narrative: Patient is a 22-year-old woman who has had a complex post course as outlined above. She comes in to discuss heavy vaginal bleeding. We did do a trance vaginal entrance abdominal ultrasound which showed no retained products of conception minimal blood and there was no overt bleeding at the time through the vagina. Hemoglobin is stable coags are normal electrolytes look great her blood pressure is under good control. At this time reassurance is offered and I did recommend continued care at home with primary care follow-up. Lab Data Labs: Lab Results 05/13/23 05/13/23 Range/Units 23:40 23:57 WBC 9.93 (4.50-11.00) K/uL RBC 4.83 (4.00-5.20) m/uL Hgb 10.4 L (12.0-16.0) gm/dL Hct 35.1 (33.0-51.0) % MCV 73 L (80-100) fL MCH 22 L (26-34) pg MCHC 30 L (32-36) gm/dL RDW Coeff of [place] 18.9 H (11.5-15.5) % Plt Count 316 (140-440) K/uL Neut % (Auto) 75.3 H (42.0-72.0) % Lymph % (Auto) 15.1 L (20-44) % [place] % (Auto) 5.1 (0.0-11.0) % Eos % (Auto) 2.9 (0.0-7.0) % Baso % (Auto) 0.7 (0.0-3.0) % Neut # (Auto) 7.50 H (1.7-7.0) K/uL Lymph # (Auto) 1.50 (0.90-2.90) K/uL [place] # (Auto) 0.50 (0.00-0.90) K/UL Eos # (Auto) 0.29 (0.00-0.50) K/uL Baso # (Auto) 0.07 (0.00-0.30) K/uL Abs Immat Gran (auto) 0.09 (0.00-0.30) K/uL Imm/Tot Granulo (auto) 0.9 % APTT 28 (23-33) Seconds Sodium 139 (135-149) mmol/L Potassium 3.5 L (3.6-5.1) mmol/L Chloride 108 (96-114) mmol/L Carbon Dioxide 24 (20-32) mmol/L BUN 13 (5-24) mg/dL Creatinine 0.8 (0.5-1.5) mg/dL Estimated Creat Clear 109.08 Estimated GFR 108 ml/min Glucose 113 (60-115) mg/dL Calcium 8.9 (8.4-10.6) mg/dL Total Bilirubin 0.4 (0.1-1.5) mg/dL AST 23 (12-35) U/L ALT 16 (4-35) U/L Alkaline Phosphatase 51 (40-150) U/L Total Protein 6.7 (6.0-8.3) g/dL Albumin 3.9 (3.3-5.0) g/dL Urine Color Yellow (Yellow) Urine Appearance Cloudy A (Clear) Urine pH 7.0 (5.0-8.5) Ur Specific [place] 1.025 (1.000-1.030) Urine Protein Negative (Negative) Urine Glucose (UA) Negative (Negative) Urine Ketones Negative (Negative) Urine Blood Trace-intact A (Negative) Urine Nitrite Negative (Negative) Urine Bilirubin Negative (Negative) Urine Urobilinogen 0.2 (0.2-1.0) Ur Leukocyte Esterase 1+ A (Negative) Discharge Plan Discharge Clinical Impression: Vaginal bleeding Patient Disposition: Home, Self-Care Condition: Stable Instructions: Abnormal (Dysfunctional) Uterine Bleeding (ED) Additional Instructions: Continue current care Follow-up with your doctor Activity Level: No Restrictions Discharge Diet: Regular Prescriptions: No Action nifedipine 30 mg tablet extended release 30 mg PO DAILY Qty: 30 2RF valacyclovir [Valtrex] 500 mg tablet 500 mg PO DAILY quetiapine [Seroquel] 50 mg tablet 50 mg PO QHS [id number] ps-folate 1 PO magnesium sulfate PO Follow Up/Referrals: Provider,Not a Local [Primary Care Provider] - Stand Alone Forms: [facility] Info Instructions
[2023-05-13 23:48] LABS: Basophils Absolute Auto 0.07 K/uL (0.00-0.30); Basophils Percent Auto 0.7 % (0.0-3.0); Eosinophils Absolute Auto 0.29 K/uL (0.00-0.50); Eosinophils Percent Auto 2.9 % (0.0-7.0); Hematocrit 35.1 % (33.0-51.0); Hemoglobin* 10.4 gm/dL (12.0-16.0); Immature Granulocytes Abs Auto 0.09 K/uL (0.00-0.30); Immature Granulocytes Pct Auto 0.9 %; Lymphocytes Percent Auto 15.1 % (20-44); Mean Corpuscular HGB Conc 30 gm/dL (32-36); Mean Corpuscular Hemoglobin 22 pg (26-34); Mean Corpuscular Volume 73 fL (80-100); Monocytes Percent Auto 5.1 % (0.0-11.0); Neutrophils Percent Auto 75.3 % (42.0-72.0); Platelet Count* 316 K/uL (140-440); RDW Coefficient of Variation % 18.9 % (11.5-15.5); Red Blood Count 4.83 m/uL (4.00-5.20); White Blood Count* 9.93 K/uL (4.50-11.00)
[2023-05-13 23:50] LABS: Slide Review Reflex No
[2023-05-14] LABS: Albumin* 3.9 g/dL (3.3-5.0); Chloride* 108 mmol/L (96-114); Potassium* 3.5 mmol/L (3.6-5.1); Sodium* 139 mmol/L (135-149)
[2023-05-14 00:03] LABS: Alanine Aminotransferase* 16 U/L (4-35); Alkaline Phosphatase* 51 U/L (40-150); Aspartate Amino Transferase* 23 U/L (12-35); Bilirubin Total* 0.4 mg/dL (0.1-1.5); Blood Urea Nitrogen* 13 mg/dL (5-24); Calcium* 8.9 mg/dL (8.4-10.6); Carbon Dioxide* 24 mmol/L (20-32); Creatinine* 0.8 mg/dL (0.5-1.5); Est. Creatinine Clearance* 109.08; Estimated Glomerular Filt Rate 108 ml/min; Glucose* 113 mg/dL (60-115); Total Protein* 6.7 g/dL (6.0-8.3)
[2023-05-14 00:16] LABS: Appearance Urine Cloudy (Clear); Bilirubin Urine Negative (Negative); Blood Urine Trace-intact (Negative); Color Urine Yellow (Yellow); Glucose Urine Negative (Negative); Ketones Urine Negative (Negative); Protein Urine Negative (Negative); Specific Gravity Urine 1.025 (1.000-1.030)
[2023-05-14 00:17] LABS: Leukocyte Esterase Urine 1+ (Negative); Nitrite Urine Negative (Negative); Urobilinogen Urine 0.2 (0.2-1.0)
[2023-05-14 00:18] LABS: Partial Thromboplastin Time* 28 Seconds (23-33)
[2023-05-14 00:42] LABS: RBC Urine 0-2 (0-2)
[2023-05-14 00:43] LABS: Bacteria Urine Few
[2023-05-14 01:35] VITALS: BP 123/67
--- NOTE | 2023-05-14 23:31 | CRLHL7_ITS ---
For Patients: As a result of the Century Cures Act, medical imaging exams and procedure reports are released immediately into your electronic medical record. You may view this report before your referring provider. If you have questions, please contact your health care provider. INDICATION: 10 days post w/cramping and bleeding. TECHNIQUE: Ultrasound pelvis transvaginal. Real-time sonographic images with spectral and color Doppler imaging of the ovaries were obtained. COMPARISON: CT abdomen and pelvis 05/10/2023.. FINDINGS: Uterus: 11.1 x 7.7 x 8.3 cm. Normal echotexture of the myometrium. No masses. Endometrium: Fluid within the endometrial canal. No evidence to suggest retained products of conception. The ovaries are not visualized. Cul-de-sac: Small amount of free fluid. IMPRESSION: uterus with fluid in the endometrial canal. No evidence to suggest retained products of conception. Dictated by Julien Mahmood MD @ 05/14/2023 1:27:29 AM (Electronically Signed)
== END 2023-05-14 01:35 | disposition home or self-care (01) ==
PROVIDERS: Emergency Provider Internal Medicine
DX: O72.1 Other immediate postpartum hemorrhage (principal)
CPT/HCPCS: 36415; 76830; 80053; 81003; 81015; 85025; 85610; 85730; 87086; 99283

== ENCOUNTER 2023-05-22 20:44 | Emergency (ER) | payer MEDICAID, SELFPAY ==
[2023-05-22 20:49] VITALS: BP 120/81; PULSE 117; RESP 18; TEMP 36.7; O2SAT 100; BMI 30.5
--- NOTE | 2023-05-22 21:15 | ED.GENADULT ---
HPI - General Adult General Date Seen: 05/22/23 Chief complaint: Hypertension Stated complaint: high blood pressure, 3wks Time Seen by Provider: 05/22/23 20:47 Source: patient Mode of arrival: ambulatory Limitations: no limitations History of Present Illness HPI narrative: Patient is a very nice 23-year-old female who delivered a baby, I had a chance to review her history. She was flown out of here for preeclampsia, discharged the next day. She does have what sounds like essential hypertension, bad anxiety. Presents now with a couple different issues she just feels unwell for the last 3-4 days felt her heart racing, feels like her blood pressure is up and down, taking her medicine somewhat as needed. Was recently started on Risperdal, in place of the Seroquel. She thinks this is likely anxiety she is feeling, but just want to be safe, and coming in here tonight to be checked. She denies any nausea vomiting, fevers chills or sweats or any visual disturbances or headaches. She says that she is eating and drinking normally in fact trying to drink more water. Denies any use of drugs or alcohol. Did take up smoking again and smokes approximately 5 cigarettes per day. Has an appointment on Tuesday with primary care, Denies chest pain abdominal pain nausea , vomiting, leg swelling, suicidal or homicidal ideation or other issues. Related Data Home Medications Medication Instructions Recorded Confirmed magnesium sulfate PO 05/10/23 [id number] ps-folate 1 PO 05/10/23 quetiapine 50 mg tablet (Seroquel) 50 mg PO QHS 05/10/23 05/13/23 valacyclovir 500 mg tablet 500 mg PO DAILY 05/10/23 05/13/23 (Valtrex) Previous Rx's Medication Instructions Recorded nifedipine 30 mg tablet,extended 30 mg PO DAILY #30 tabs 05/08/23 release Allergies Allergy/AdvReac Type Severity Reaction Status Date / Time No Known Drug Allergies Allergy Verified 05/22/23 20:53 Review of Systems Status of ROS: Reports: 10 or more systems reviewed and unremarkable except as noted in History and below [facility] Medical History Seizure ?R56.9 - Unspecified convulsions (ICD-10) Preeclampsia ?O14.90 - Unspecified pre-eclampsia, unspecified trimester (ICD-10) Social History Smoking Status: Former smoker Do you use any of these nicotine containing products: None Second hand tobacco smoke exposure: No How often do you have a drink containing alcohol: never How often do you have six or more drinks on one occasion: Never AUDIT-C Alcohol total score: 0 Non-prescribed substance use: denies use service: No Exam Narrative: Exam Narrative: I find her in room 3, she is a little anxious but not overly. Speaking to me normally. Her pupils are equal round reactive to light there is no scleral icterus redness TMs are normal oropharynx is normal her visual solorio bilaterally are normal, her fundi are nice and crisp. Oropharynx normal. Neck is supple no meningismus chest is clear heart sounds are normal abdomen is soft skin reveals no petechiae rashes and she does not have a tremor she moves all extremities independently and well. Reflexes are 2+ out of 4. No clonus Const: Vital Signs, click to edit/add: Vital Signs - 24 hr 05/22/23 20:49 Temperature 98.1 F Pulse Rate [Right Pulse Oximeter] 117 H Respiratory Rate 18 Blood Pressure [Ri ght Upper Arm] 120/81 Pulse Oximetry 100 Oxygen Delivery Me thod Room Air Documenting provider has reviewed patient's vital signs: yes Course Vital Signs Vital signs: Initial Vital Signs Temperature 98.1 F 05/22/23 20:49 Temperature Source Temporal Artery Scan 05/22/23 20:49 Pulse Rate 117 H 05/22/23 20:49 Pulse Rhythm Regular 05/22/23 20:49 Pulse Strength 3+ Normal 05/22/23 20:49 Respiratory Rate 18 05/22/23 20:49 Blood Pressure 120/81 05/22/23 20:49 Blood Pressure Mean 94 05/22/23 20:49 Blood Pressure Position Sitting 05/22/23 20:49 Pulse Oximetry 100 05/22/23 20:49 Oxygen Delivery Method Room Air 05/22/23 20:49 Vital Signs Temperature 98.1 F 05/22/23 20:49 Pulse Rate 117 H 05/22/23 20:49 Respiratory Rate 18 05/22/23 20:49 Blood Pressure 120/81 05/22/23 20:49 Pulse Oximetry 100 05/22/23 20:49 Oxygen Delivery Method Room Air 05/22/23 20:49 Temperature 98.1 F 05/22/23 20:49 Pulse Rate 117 H 05/22/23 20:49 Respiratory Rate 18 05/22/23 20:49 Blood Pressure 120/81 05/22/23 20:49 Pulse Oximetry 100 05/22/23 20:49 Oxygen Delivery Method Room Air 05/22/23 20:49 Medical Decision Making MDM Narrative Medical decision making narrative: I reassured her that I do not think she has preeclampsia, I do think this is likely anxiety related to the above. She has a lot a good supports for this. Including Psychiatry and also psychology she is not suicidal or homicidal. I think it would be reasonable let her go home with reassurance tonight, but she should keep a log of her blood pressures, if she is continually in the 100 her 90 systolic I do not think she needs to take her nifedipine. The other thing that this could be issues recently switched over from Seroquel to risperidone, and this could be just the new medication taking affect. This was done 3 days ago. We went over signs and symptoms of worsening she will follow up with these occur. Discharge Plan Discharge Clinical Impression: Anxiety Patient Disposition: Home, Self-Care Condition: Stable Instructions: Generalized Anxiety Disorder (ED), Anxiety (ED) Additional Instructions: I totally understand which are going through. I would like to reassure you tonight that I do not think anything severe is going on, a couple things we discussed were the keeping track of the blood pressures, so when you see your provider on Tuesday there will be a good record. Reassurance given. Return as needed Activity Level: Light activity Prescriptions: No Action nifedipine 30 mg tablet extended release 30 mg PO DAILY Qty: 30 2RF valacyclovir [Valtrex] 500 mg tablet 500 mg PO DAILY quetiapine [Seroquel] 50 mg tablet 50 mg PO QHS [id number] ps-folate 1 PO magnesium sulfate PO Follow Up/Referrals: Provider,Not a Local [Primary Care Provider] - Stand Alone Forms: [employer]th Info Instructions
== END 2023-05-22 21:29 | disposition home or self-care (01) ==
LOC: ED 21:15
PROVIDERS: Emergency Provider Family Medicine
DX: F41.9 Anxiety disorder, unspecified (principal); O90.9 Complication of the puerperium, unspecified
CPT/HCPCS: 99283

== ENCOUNTER 2023-05-24 02:34 | Emergency (ER) | payer MEDICAID, SELFPAY ==
[2023-05-24 02:48] VITALS: BP 128/85; PULSE 111; RESP 16; TEMP 36.7; O2SAT 98; BMI 30.5
--- NOTE | 2023-05-24 02:51 | ED_ITS ---
HPI - General Adult General Time Seen by Provider: 02:51 Date Seen: 05/24/23 Chief complaint: Psychiatric Problem/Disorder Stated complaint: mental health Time Seen by Provider: 05/24/23 02:50 History of Present Illness HPI narrative: Patient is a 23-year-old female who is presenting over 2 weeks after giving for suicide ideation, auditory hallucinations, concerned that she might hurt her children. Patient states she is been having symptoms of depression since the . She has been seen emergency department a few times but previously has had homicidal or suicidal thoughts. She states now she is having them as she is concerned she will hurt her children or her . She is doing outpatient treatment right now that she states is not helping. She feels like she needs to be inpatient somewhere. She states the previous pregnancies she had depression but was not this bad. Patient states right now her symptoms are better but they seem to come and go. Denies fevers, chills, chest pain, shortness of breath, abdominal pain, diarrhea, constipation, headache, vision changes, lightheadedness, dizziness. Related Data Home Medications Medication Instructions Recorded Confirmed magnesium sulfate PO 05/10/23 [id number] ps-folate 1 PO 05/10/23 quetiapine 50 mg tablet (Seroquel) 50 mg PO QHS 05/10/23 05/13/23 valacyclovir 500 mg tablet 500 mg PO DAILY 05/10/23 05/13/23 (Valtrex) Previous Rx's Medication Instructions Recorded nifedipine 30 mg tablet,extended 30 mg PO DAILY #30 tabs 05/08/23 release Allergies Allergy/AdvReac Type Severity Reaction Status Date / Time No Known Drug Allergies Allergy Verified 05/22/23 20:53 Review of Systems Status of ROS: Reports: 10 or more systems reviewed and unremarkable except as noted in History and below [facility] Medical History Seizure ?R56.9 - Unspecified convulsions (ICD-10) Preeclampsia ?O14.90 - Unspecified pre-eclampsia, unspecified trimester (ICD-10) Social History Smoking Status: Former smoker Do you use any of these nicotine containing products: None Second hand tobacco smoke exposure: No How often do you have a drink containing alcohol: never How often do you have six or more drinks on one occasion: Never AUDIT-C Alcohol total score: 0 Non-prescribed substance use: denies use service: No Exam Narrative: Exam Narrative: Const: Well-nourished, Well-developed, in mild distress Eyes: PERRL, no conjunctival injection, and symmetrical lids ENMT: Atraumatic external nose and ears. Moist mucous membranes. Neck: Symmetric, trachea midline, No thyromegaly. CVS: RRR, No murmurs or gallops. Peripheral pulses 2+ and equal in all extremities RESP: Unlabored respiratory effort. Clear to auscultation bilaterally. GI: Nontender/Nondistended, No rebound or guarding. MSK:Extremities w/o deformity, Normal Active ROM Skin: Warm, Dry. No rashes or lesions. Neuro: Normal Muscle tone, No focal neurological deficits. Psych: Awake, Alert, & Oriented x3. Appropriate mood and affect. Const: Vital Signs, click to edit/add: Vital Signs - 24 hr 05/24/23 02:48 Temperature 98.1 F Pulse Rate [Left P ulse Oximeter] 111 H Respiratory Rate 16 Blood Pressure [Ri ght Upper Arm] 128/85 Pulse Oximetry 98 Oxygen Delivery Me thod Room Air Course Vital Signs Vital signs: Initial Vital Signs Temperature 98.1 F 05/24/23 02:48 Temperature Source Temporal Artery Scan 05/24/23 02:48 Pulse Rate 111 H 05/24/23 02:48 Respiratory Rate 16 05/24/23 02:48 Blood Pressure 128/85 05/24/23 02:48 Blood Pressure Mean 99 05/24/23 02:48 Blood Pressure Position Sitting 05/24/23 02:48 Pulse Oximetry 98 05/24/23 02:48 Oxygen Delivery Method Room Air 05/24/23 02:48 Vital Signs Temperature 98.1 F 05/24/23 02:48 Pulse Rate 111 H 05/24/23 02:48 Respiratory Rate 16 05/24/23 02:48 Blood Pressure 128/85 05/24/23 02:48 Pulse Oximetry 98 05/24/23 02:48 Oxygen Delivery Method Room Air 05/24/23 02:48 Temperature 98.1 F 05/24/23 02:48 Pulse Rate 111 H 05/24/23 02:48 Respiratory Rate 16 05/24/23 02:48 Blood Pressure 128/85 05/24/23 02:48 Pulse Oximetry 98 05/24/23 02:48 Oxygen Delivery Method Room Air 05/24/23 02:48 Medical Decision Making MDM Narrative Medical decision making narrative: Patient is doing old female presented emergency department for mental health evaluation. She admits to intermittent auditory hallucinations with homicidal and suicidal ideation. She states she is not currently have these feelings was concerned she will hurt herself or others related to depression. She has seen outpatient providers but she is is is not helping she believes she needs inpatient treatment. Mental health labs were ordered. DEC was consulted and they recommended inpatient treatment. Patient is voluntary at this time. Or lab work shows no concerning abnormalities. Patient is currently pending placement and will be signed out to the day team. Lab Data Labs: Lab Results 05/24/23 Range/Units 02:55 WBC 8.38 (4.50-11.00) K/uL RBC 5.40 H (4.00-5.20) m/uL Hgb 11.8 L (12.0-16.0) gm/dL Hct 39.9 (33.0-51.0) % MCV 74 L (80-100) fL MCH 22 L (26-34) pg MCHC 30 L (32-36) gm/dL RDW Coeff of [place] 21.2 H (11.5-15.5) % Plt Count 397 (140-440) K/uL Neut % (Auto) 71.1 (42.0-72.0) % Lymph % (Auto) 19.6 L (20-44) % [place] % (Auto) 5.5 (0.0-11.0) % Eos % (Auto) 3.0 (0.0-7.0) % Baso % (Auto) 0.7 (0.0-3.0) % Neut # (Auto) 5.96 (1.7-7.0) K/uL Lymph # (Auto) 1.60 (0.90-2.90) K/uL [place] # (Auto) 0.50 (0.00-0.90) K/UL Eos # (Auto) 0.25 (0.00-0.50) K/uL Baso # (Auto) 0.06 (0.00-0.30) K/uL Abs Immat Gran (auto) 0.01 (0.00-0.30) K/uL Imm/Tot Granulo (auto) 0.1 % Sodium 142 (135-149) mmol/L Potassium 4.1 (3.6-5.1) mmol/L Chloride 106 (96-114) mmol/L Carbon Dioxide 25 (20-32) mmol/L BUN 15 (5-24) mg/dL Creatinine 0.8 (0.5-1.5) mg/dL Estimated Creat Clear 108.17 Estimated GFR 107 ml/min Glucose 121 H (60-115) mg/dL Calcium 9.5 (8.4-10.6) mg/dL TSH 2.140 (0.270-4.20) uIU/mL Salicylates < 1.0 L (1.0-10) mg/dL Acetaminophen < 10.0 L (10.0-30.0) ug/mL Discharge Plan Discharge Prescriptions: No Action nifedipine 30 mg tablet extended release 30 mg PO DAILY Qty: 30 2RF valacyclovir [Valtrex] 500 mg tablet 500 mg PO DAILY quetiapine [Seroquel] 50 mg tablet 50 mg PO QHS [id number] ps-folate 1 PO magnesium sulfate PO Follow Up/Referrals: Provider,Not a Local [Primary Care Provider] -
[2023-05-24 03:02] LABS: Basophils Absolute Auto 0.06 K/uL (0.00-0.30); Basophils Percent Auto 0.7 % (0.0-3.0); Eosinophils Absolute Auto 0.25 K/uL (0.00-0.50); Hematocrit 39.9 % (33.0-51.0); Hemoglobin* 11.8 gm/dL (12.0-16.0); Immature Granulocytes Abs Auto 0.01 K/uL (0.00-0.30); Immature Granulocytes Pct Auto 0.1 %; Lymphocytes Percent Auto 19.6 % (20-44); Mean Corpuscular HGB Conc 30 gm/dL (32-36); Mean Corpuscular Hemoglobin 22 pg (26-34); Mean Corpuscular Volume 74 fL (80-100); Monocytes Percent Auto 5.5 % (0.0-11.0); Neutrophils Absolute Auto 5.96 K/uL (1.7-7.0); Neutrophils Percent Auto 71.1 % (42.0-72.0); Platelet Count* 397 K/uL (140-440); RDW Coefficient of Variation % 21.2 % (11.5-15.5); White Blood Count* 8.38 K/uL (4.50-11.00)
[2023-05-24 03:09] LABS: Slide Review Reflex No
[2023-05-24 03:14] LABS: Chloride* 106 mmol/L (96-114); Potassium* 4.1 mmol/L (3.6-5.1); Sodium* 142 mmol/L (135-149)
[2023-05-24 03:17] LABS: Blood Urea Nitrogen* 15 mg/dL (5-24); Carbon Dioxide* 25 mmol/L (20-32); Creatinine* 0.8 mg/dL (0.5-1.5); Est. Creatinine Clearance* 108.17; Estimated Glomerular Filt Rate 107 ml/min; Glucose* 121 mg/dL (60-115)
[2023-05-24 03:18] LABS: Acetaminophen* < 10.0 ug/mL (10.0-30.0); Calcium* 9.5 mg/dL (8.4-10.6); Salicylate* < 1.0 mg/dL (1.0-10)
--- NOTE | 2023-05-24 05:40 | ED.NURSE ---
patient given manual breast pump x2.
[2023-05-24 07:43] VITALS: BP 120/71; PULSE 62; RESP 16; TEMP 36.9; O2SAT 99
[2023-05-24 11:35] LABS: Ur HCG Qualitative* Negative (Negative)
[2023-05-24 11:38] LABS: Amphetamine Screen Urine Negative (Negative); Barbiturate Screen Urine Negative (Negative); Benzodiazepines Screen Urine Negative (Negative); Cannabinoid Screen Urine Negative (Negative); Cocaine Screen Urine Negative (Negative); Methadone Screen Urine Negative (Negative); Methamphetamines Screen Urine Negative (Negative); Opiate Screen Urine Negative (Negative); Oxycodone Screen Urine Negative (Negative); Phencyclidine Screen Urine Negative (Negative); Tricyclic Antidepressant Urine Negative (Negative)
[2023-05-24 11:40] LABS: Appearance Urine Clear (Clear); Bilirubin Urine Negative (Negative); Blood Urine Negative (Negative); Color Urine Yellow (Yellow); Glucose Urine Negative (Negative); Ketones Urine Negative (Negative); Leukocyte Esterase Urine Trace (Negative); Nitrite Urine Negative (Negative); Protein Urine Negative (Negative); Urobilinogen Urine 0.2 (0.2-1.0)
[2023-05-24 11:57] LABS: RBC Urine 0-2 (0-2)
--- NOTE | 2023-05-24 12:32 | ED.NURSE ---
Pt vitally stable, cooperative, voided x1. Refused breakfast. Aware that a bed is available for her [place] and pt is okay with this.
[2023-05-24 12:52] VITALS: BP 106/57; PULSE 67; RESP 20; TEMP 36.6; O2SAT 99
--- NOTE | 2023-05-24 16:53 | ED.NURSE ---
Attempted to call report x2 to [facility] , [place] gave number. Left voicemail to call back, unable to give RN report.
== END 2023-05-24 13:30 ==
PROVIDERS: Student in an Organized Health Care Education/Training Program; Emergency Provider Emergency Medicine
DX: F53.0 Postpartum depression (principal)
CPT/HCPCS: 36415; 80048; 80143; 80179; 80306; 81001; 81025; 84443; 85025; 99283; 99284

== ENCOUNTER 2023-05-24 13:14 | Outpatient (CLI) | payer MEDICAID, SELFPAY | END 2023-05-24 13:15 | disposition home or self-care (01) | LOC: AMB 05-25 18:37 | PROVIDERS: Visit Provider Emergency Medicine | DX: F32.A Depression, unspecified (principal); R44.3 Hallucinations, unspecified | CPT/HCPCS: A0425; A0428 ==

== ENCOUNTER 2023-06-02 09:56 | Outpatient (CLI) | payer MEDICAID, SELFPAY | END 2023-06-02 09:57 | disposition home or self-care (01) | PROVIDERS: PCP Nurse Practitioner Family; Visit Provider Nurse Practitioner Family | DX: Z00.00 Encounter for general adult medical examination without abnormal findings (principal); R00.2 Palpitations; R10.32 Left lower quadrant pain; D50.9 Iron deficiency anemia, unspecified; I10 Essential (primary) hypertension; R19.5 Other fecal abnormalities | CPT/HCPCS: 82607; 83540; 83550; 83735; 84443; 85025; 86376; 87086 ==

== ENCOUNTER 2023-06-03 10:47 | Emergency (ER) | payer MEDICAID, SELFPAY ==
[2023-06-03 10:58] VITALS: BP 137/74; PULSE 106; RESP 16; TEMP 36.7; O2SAT 99; BMI 30.4
--- NOTE | 2023-06-03 11:48 | ED_ITS ---
HPI - Abdominal Pain General Time Seen by Provider: 11:48 Date Seen: 06/03/23 Chief Complaint: Abdominal Pain Stated Complaint: R side pain Time Seen by Provider: 06/03/23 11:48 Source: patient and RN notes reviewed Mode of arrival: ambulatory Limitations: no limitations History of Present Illness HPI narrative: This 23-year-old female is coming in with right-sided abdominal pain. It woke her at about 3:00 a.m. overnight but she was able to get back to sleep. She feels it in the right upper quadrant and does radiate or wrap around into her back now. Stools have been dark but she is on iron. She delivered a baby at the end of March. She has not been sexually active and thus does not feel there is any chance for . Has not noted any change in urination like dysuria or hematuria. Has had no vomiting but did feel nausea this morning. She had decreased appetite but force herself to eat earlier today, felt that increased her pain. No fevers noted. MD elicited complaint: abdominal pain Related Data Patient : No Home Medications Medication Instructions Recorded Confirmed [id number] ps-folate 1 PO 05/10/23 06/02/23 valacyclovir 500 mg tablet 500 mg PO DAILY 05/10/23 06/02/23 (Valtrex) cyanocobalamin (vitamin B-12) 1,000 mcg PO QDAY 06/02/23 06/02/23 1,000 mcg capsule lamotrigine 25 mg tablet (Lamictal) 25 mg PO ONCE 06/02/23 06/02/23 magnesium sulfate 100 mg capsule 250 mg PO QDAY 06/02/23 06/02/23 nifedipine 30 mg tablet,extended 30 mg PO DAILY PRN 06/02/23 release olanzapine 2.5 mg tablet (Zyprexa) 2.5 mg PO QDAY 06/02/23 06/02/23 Allergies Allergy/AdvReac Type Severity Reaction Status Date / Time No Known Drug Allergies Allergy Verified 06/02/23 09:18 Review of Systems Status of ROS Reports: 6 or more systems reviewed and unremarkable except as noted in History and below [facility] Medical History Seizure ?R56.9 - Unspecified convulsions (ICD-10) Preeclampsia ?O14.90 - Unspecified pre-eclampsia, unspecified trimester (ICD-10) Family History Maternal Grandfather Heart disease Father Depression Anxiety Paternal Grandmother Anxiety Depression Mother Anxiety Depression Paternal Grandmother Anxiety Depression Social History Narrative: . 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 Current everyday smoker. No alcohol. No illicit drug use. Smoking Status: Current every day smoker What tobacco products do you use: ci garjames Second hand tobacco smoke exposure: No How often do you have a drink containing alcohol: never How often do you have six or more drinks on one occasion: Never AUDIT-C Alcohol total score: 0 Non-prescribed substance use: denies use Little interest or pleasure in doing things: several days Feeling down, depressed, or hopeless: more than half the days service: No Exam Const: Vital Signs, click to edit/add: Vital Signs - 24 hr 06/03/23 10:58 06/03/23 12:50 06/03/23 15:15 Temperature 98.1 F Pulse Rate [Left P ulse Oximeter] 106 H 70 Respiratory Rate 16 16 Blood Pressure [Ri ght Upper Arm] 137/74 115/64 Pulse Oximetry 99 100 100 Oxygen Delivery Me thod Room Air Room Air Documenting provider has reviewed patient's vital signs: yes Common normals: no apparent distress, average body habitus, oriented x3, no limitations, healthy appearing, alert and well nourished General appearance: cooperative, comfortable, well kempt and well developed HENMT: Common normals: normocephalic, head/scalp atraumatic, hearing grossly normal bilaterally and external nose normal Head and scalp: normocephalic and atraumatic Face and sinus: normal facial exam Nose: external nose normal Eye: Common normals: PERRL, EOMs intact bilaterally, conjunctivae normal and no scleral icterus Conjunctiva: conjunctiva(e) normal Pupil: PERRL Neck & C-Spine: Common normals: full ROM, no lymphadenopathy, supple and no JVD Resp: Common normals: normal respiratory effort, no retractions, no use of accessory muscles and clear to auscultation bilaterally Effort & inspection: able to speak in complete sentences Auscultation: clear to auscultation bilaterally Cardio: Common normals: no JVD, regular rate, regular rhythm, S1 normal heart sound, S2 normal heart sound, no gallops, no clicks and no murmurs Rate: regular rate Rhythm: regular rhythm Heart sounds: S1 normal and S2 normal GI: Common normals: Normal to inspection, nondistended, normoactive bowel sounds present, soft to palpation, no hepatosplenomegaly and no masses Palpation: soft and no hepatosplenomegaly Other: Is definitely tender right upper quadrant. Neuro: Common normals: oriented x3 Sensorium/orientation: alert Psych: Appearance: well kempt Course Course Hospital Course: Discussed with patient that gallbladder issues as well as kidney stones can sometimes present around and . She notes her grandmother had to have her gallbladder out before. Her symptoms to me certainly sound concerning for possible gallbladder disease, she is tender in the right upper quadrant. Will get appropriate labs. Discussed IV placement with nausea control with Zofran and pain management with Toradol. Will initiate our evaluation with a limited abdominal ultrasound. She should be out of the window preeclampsia. Reevaluation(s) Time of Reevaluation #1: 14:58 Reevaluation #1: Reviewed with patient that her ultrasound is normal, no gallstones or any evidence of cholecystitis. We did discuss that this does not completely rule out gallbladder disease. We did discuss biliary dysfunction which cannot be adequately evaluated and worked up in the ED. We did discuss HIDA scan if ongoing symptoms that were suggestive of this. She is still noting a little mild right flank pain. Her urine was just collected, await urinalysis. We reviewed that are lipase reagent is out and we were unable to get further E agent, I will not get a lipase in a timely fashion today. Given her symptoms, we have discussed CT imaging and she would like to proceed with this. We are going to do CT abdomen pelvis with IV contrast to ensure that we are not missing any acute intra-abdominal pathology. Time of Reevaluation #2: 16:15 Reevaluation #2: Reviewed with patient that there were no acute findings on her CT. She is reassured by this. We have discussed conservative outpatient management, follow up in clinic if ongoing symptoms. We reviewed signs and symptoms to return to the ED. she does have baseline reflux, did discuss with her consider taking [id number] omeprazole. Vital Signs Vital signs: Initial Vital Signs Temperature 98.1 F 06/03/23 10:58 Temperature Source Oral 06/03/23 10:58 Pulse Rate 106 H 06/03/23 10:58 Pulse Rhythm Regular 06/03/23 10:58 Respiratory Rate 16 06/03/23 10:58 Blood Pressure 137/74 06/03/23 10:58 Blood Pressure Mean 95 06/03/23 10:58 Pulse Oximetry 99 06/03/23 10:58 Oxygen Delivery Method Room Air 06/03/23 10:58 Vital Signs Temperature 98.1 F 06/03/23 10:58 Pulse Rate 106 H 06/03/23 10:58 Respiratory Rate 16 06/03/23 10:58 Blood Pressure 137/74 06/03/23 10:58 Pulse Oximetry 99 06/03/23 10:58 Oxygen Delivery Method Room Air 06/03/23 10:58 Temperature 98.1 F 06/03/23 10:58 Pulse Rate 70 06/03/23 15:15 Respiratory Rate 16 06/03/23 15:15 Blood Pressure 115/64 06/03/23 15:15 Pulse Oximetry 100 06/03/23 15:15 Oxygen Delivery Method Room Air 06/03/23 15:15 MDM - Abdominal Pain Differential Diagnosis Differential diagnosis: Likely abdominal pain, acute appendicitis, calculus of kidney, constipation, diverticulitis, gastroenteritis and pancreatitis Lab Data Attestation: I reviewed the patient's lab results. Labs: Lab Results 06/03/23 06/03/23 Range/Units 13:10 14:48 WBC 8.15 (4.50-11.00) K/uL RBC 4.93 (4.00-5.20) m/uL Hgb 11.1 L (12.0-16.0) gm/dL Hct 37.0 (33.0-51.0) % MCV 75 L (80-100) fL MCH 23 L (26-34) pg MCHC 30 L (32-36) gm/dL RDW Coeff of [place] 22.7 H (11.5-15.5) % Plt Count 283 (140-440) K/uL Neut % (Auto) 73.5 H (42.0-72.0) % Lymph % (Auto) 18.0 L (20-44) % Frio % (Auto) 5.4 (0.0-11.0) % Eos % (Auto) 2.3 (0.0-7.0) % Baso % (Auto) 0.7 (0.0-3.0) % Neut # (Auto) 6.00 (1.7-7.0) K/uL Lymph # (Auto) 1.50 (0.90-2.90) K/uL Frio # (Auto) 0.40 (0.00-0.90) K/UL Eos # (Auto) 0.19 (0.00-0.50) K/uL Baso # (Auto) 0.06 (0.00-0.30) K/uL Abs Immat Gran (auto) 0.01 (0.00-0.30) K/uL Imm/Tot Granulo (auto) 0.1 % Sodium 139 (135-149) mmol/L Potassium 4.1 (3.6-5.1) mmol/L Chloride 107 (96-114) mmol/L Carbon Dioxide 26 (20-32) mmol/L Anion Gap 6 L (7-15) mEq/L BUN 13 (5-24) mg/dL Creatinine 0.8 (0.5-1.5) mg/dL Estimated Creat Clear 108.17 Estimated GFR 107 ml/min Glucose 93 (60-115) mg/dL Lactate 0.7 (0.5-1.9) mmol/L Calcium 9.5 (8.4-10.6) mg/dL Total Bilirubin 0.3 (0.1-1.5) mg/dL Direct Bilirubin 0.0 (0.0-0.5) mg/dL AST 23 (12-35) U/L ALT 22 (4-35) U/L Alkaline Phosphatase 53 (40-150) U/L C-Reactive Protein 0.5 (0.5-1.0) mg/dL Total Protein 7.0 (6.0-8.3) g/dL Albumin 4.2 (3.3-5.0) g/dL HCG, Qual Negative (Negative) Urine Color Yellow (Yellow) Urine Appearance Slightly Cloudy A (Clear) Urine pH 7.5 (5.0-8.5) Ur Specific [place] 1.025 (1.000-1.030) Urine Protein Negative (Negative) Urine Glucose (UA) Negative (Negative) Urine Ketones Negative (Negative) Urine Blood Negative (Negative) Urine Nitrite Negative (Negative) Urine Bilirubin Negative (Negative) Urine Urobilinogen 0.2 (0.2-1.0) Ur Leukocyte Esterase Negative (Negative) Urine RBC 0-2 (0-2) Urine WBC 0-2 (0-5) Ur Squamous Epith Cells Few (None-Few) Urine Bacteria Few A (None) Imaging Data US - abdomen: Attestation: I have reviewed the pertinent imaging results. Radiologist's impression: Patient: [facility] Facility:?[facility] Patient ID:?[id number] Site Patient ID:?[id number]. Site :?[id number] Study:?US Abdomen RUQ-06/03/2023 12:34:22 PM Ordering Physician:?Alejandra Suarez Final Report: INDICATION: Right upper quadrant abdomen pain. TECHNIQUE: Ultrasound abdomen limited. Sonographic images of the right upper quadrant were obtained using rand-scale and color Doppler images. COMPARISON: None. FINDINGS: Liver: Normal in size and echotexture. No suspicious masses. No intrahepatic biliary dilatation. Gallbladder: No stones or sludge. Normal wall thickness. No pericholecystic f luid. Common bile duct: 4 mm. Pancreas: Obscured. Right kidney: Normal in size. Normal echotexture and cortex. No suspicious masses, stones, or hydronephrosis. Vasculature: Visualized proximal aorta is unremarkable. IMPRESSION: Unremarkable right upper quadrant ultrasound. Dictated by Kash Villar MD @ 06/03/2023 1:18:10 PM (Electronic Signature) CT scan - abdomen: Attestation: I have reviewed the pertinent imaging results. Radiologist's impression: Patient: [facility] Facility:?[facility] Patient ID:?[id number] Site Patient ID:?[id number]. Site :?2002 Study:?CT Abdomen/Pelvis W/ 90CC [id number]/25/2023 3:39:17 PM Ordering Physician:?Alejandra Suarez Final Report: INDICATION: RIGHT SIDED ABD PAIN TECHNIQUE: CT abdomen and pelvis with 90 cc Isovue 370 IV contrast. COMPARISON: CT abdomen May 10, 2023 FINDINGS: The liver is normal in size, shape and attenuation. Gallbladder and biliary tree are normal. The spleen, adrenal glands and pancreas are within normal limits. The kidneys are unremarkable. No hydronephrosis. Decompressed bladder. No evidence of bowel obstruction or inflammation. Unremarkable appearing appendix. No significant free fluid and no free air. Abdominal aorta normal in caliber. No enlarged lymph nodes by size criteria. Uterus and ovaries are visualized. The lower chest is unremarkable. No acute osseous abnormality. IMPRESSION: No evidence of acute intra-abdominal/pelvic process. Please note that all CT scans at this facility use dose modulation, iterative reconstruction, and/or weight-based dosing when appropriate to reduce radiation dose to as low as reasonably achievable. Dictated by Allen Seth MD @ 06/03/2023 4:07:39 PM (Electronic Signature) Critical Care Time Critical Care Time Critical Care Time: No Discharge Plan Discharge Clinical Impression: Right upper quadrant abdominal pain Patient Disposition: Home, Self-Care Condition: Stable Instructions: Acute Abdominal Pain (ED) Additional Instructions: Labs, ultrasound and CT were not showing any definitive acute pathology. If you have ongoing symptoms and if they are particularly associated with food, biliary dysfunction or gallbladder dysfunction is still a possibility. Follow up in clinic to have a HIDA scan ordered with her primary care provider if felt clinically indicated. In the meantime, if you have increasing abdominal pain, if it is associated with fever or vomiting, have other concerning symptoms develop, please seek re-evaluation in the ER. Activity Level: Activity as Tolerated Discharge Diet: Regular Prescriptions: No Action magnesium sulfate 100 mg capsule 250 mg PO QDAY nifedipine 30 mg tablet extended release 30 mg PO DAILY PRN olanzapine [Zyprexa] 2.5 mg tablet 2.5 mg PO QDAY Rx Instructions: 2.5 am and 5mg PM lamotrigine [Lamictal] 25 mg tablet 25 mg PO ONCE cyanocobalamin (vitamin B-12) 1,000 mcg capsule 1,000 mcg PO QDAY valacyclovir [Valtrex] 500 mg tablet 500 mg PO DAILY [id number] ps-folate 1 PO Follow Up/Referrals: Comfort Platt, COMPUTER SECURITY COORDINATOR, [employer] [Primary Care Provider] - Stand Alone Forms: [employer] Info Instructions
--- NOTE | 2023-06-03 12:05 | CRLHL7_ITS ---
For Patients: As a result of the Century Cures Act, medical imaging exams and procedure reports are released immediately into your electronic medical record. You may view this report before your referring provider. If you have questions, please contact your health care provider. INDICATION: Right upper quadrant abdomen pain. TECHNIQUE: Ultrasound abdomen limited. Sonographic images of the right upper quadrant were obtained using rand-scale and color Doppler images. COMPARISON: None. FINDINGS: Liver: Normal in size and echotexture. No suspicious masses. No intrahepatic biliary dilatation. Gallbladder: No stones or sludge. Normal wall thickness. No pericholecystic fluid. Common bile duct: 4 mm. Pancreas: Obscured. Right kidney: Normal in size. Normal echotexture and cortex. No suspicious masses, stones, or hydronephrosis. Vasculature: Visualized proximal aorta is unremarkable. IMPRESSION: Unremarkable right upper quadrant ultrasound. Dictated by Kash Villar MD @ 06/03/2023 1:18:10 PM (Electronically Signed)
[2023-06-03 12:50] VITALS: O2SAT 100
[2023-06-03] MEDS: KETOROLAC 15 MG/ML inj IVP (13:00)
[2023-06-03] MEDS: ONDANSETRON 2 MG/ML inj 4 MG IVP (13:00)
[2023-06-03] MEDS: 0.9 % SODIUM CHLORIDE 1000 ml 1,000 ML 500 ML IV (13:00)
[2023-06-03 13:18] LABS: Lactate* 0.7 mmol/L (0.5-1.9)
[2023-06-03 13:24] LABS: Basophils Absolute Auto 0.06 K/uL (0.00-0.30); Basophils Percent Auto 0.7 % (0.0-3.0); Eosinophils Absolute Auto 0.19 K/uL (0.00-0.50); Eosinophils Percent Auto 2.3 % (0.0-7.0); Hemoglobin* 11.1 gm/dL (12.0-16.0); Immature Granulocytes Abs Auto 0.01 K/uL (0.00-0.30); Immature Granulocytes Pct Auto 0.1 %; Mean Corpuscular HGB Conc 30 gm/dL (32-36); Mean Corpuscular Hemoglobin 23 pg (26-34); Mean Corpuscular Volume 75 fL (80-100); Monocytes Percent Auto 5.4 % (0.0-11.0); Neutrophils Percent Auto 73.5 % (42.0-72.0); Platelet Count* 283 K/uL (140-440); RDW Coefficient of Variation % 22.7 % (11.5-15.5); Red Blood Count 4.93 m/uL (4.00-5.20); White Blood Count* 8.15 K/uL (4.50-11.00)
[2023-06-03 13:37] LABS: Albumin* 4.2 g/dL (3.3-5.0); Chloride* 107 mmol/L (96-114)
[2023-06-03 13:38] LABS: Potassium* 4.1 mmol/L (3.6-5.1); Sodium* 139 mmol/L (135-149)
[2023-06-03 13:39] LABS: Slide Review Reflex No
[2023-06-03 13:40] LABS: Alkaline Phosphatase* 53 U/L (40-150); Anion Gap 6 mEq/L (7-15); Aspartate Amino Transferase* 23 U/L (12-35); Bilirubin Total* 0.3 mg/dL (0.1-1.5); Blood Urea Nitrogen* 13 mg/dL (5-24); Carbon Dioxide* 26 mmol/L (20-32); Creatinine* 0.8 mg/dL (0.5-1.5); Est. Creatinine Clearance* 108.17; Estimated Glomerular Filt Rate 107 ml/min
[2023-06-03 13:41] LABS: Alanine Aminotransferase* 22 U/L (4-35); Calcium* 9.5 mg/dL (8.4-10.6); Glucose* 93 mg/dL (60-115)
[2023-06-03 13:43] LABS: C Reactive Protein* 0.5 mg/dL (0.5-1.0); HCG Qualitative Serum* Negative (Negative)
[2023-06-03 14:59] LABS: Appearance Urine Slightly Cloudy (Clear); Bilirubin Urine Negative (Negative); Blood Urine Negative (Negative); Color Urine Yellow (Yellow); Glucose Urine Negative (Negative); Ketones Urine Negative (Negative); Leukocyte Esterase Urine Negative (Negative); Nitrite Urine Negative (Negative); Protein Urine Negative (Negative); Specific Gravity Urine 1.025 (1.000-1.030); Urobilinogen Urine 0.2 (0.2-1.0); pH Urine 7.5 (5.0-8.5)
--- NOTE | 2023-06-03 15:00 | CRLHL7_ITS ---
For Patients: As a result of the Century Cures Act, medical imaging exams and procedure reports are released immediately into your electronic medical record. You may view this report before your referring provider. If you have questions, please contact your health care provider. INDICATION: RIGHT SIDED ABD PAIN TECHNIQUE: CT abdomen and pelvis with 90 cc Isovue 370 IV contrast. COMPARISON: CT abdomen May 10, 2023 FINDINGS: The liver is normal in size, shape and attenuation. Gallbladder and biliary tree are normal. The spleen, adrenal glands and pancreas are within normal limits. The kidneys are unremarkable. No hydronephrosis. Decompressed bladder. No evidence of bowel obstruction or inflammation. Unremarkable appearing appendix. No significant free fluid and no free air. Abdominal aorta normal in caliber. No enlarged lymph nodes by size criteria. Uterus and ovaries are visualized. The lower chest is unremarkable. No acute osseous abnormality. IMPRESSION: No evidence of acute intra-abdominal/pelvic process. Please note that all CT scans at this facility use dose modulation, iterative reconstruction, and/or weight-based dosing when appropriate to reduce radiation dose to as low as reasonably achievable. Dictated by Allen Seth MD @ 06/03/2023 4:07:39 PM (Electronically Signed)
[2023-06-03 15:09] LABS: Bacteria Urine Few; RBC Urine 0-2 (0-2); Squamous Epithelial Cell Urine Few (None-Few); WBC Urine 0-2 (0-5)
[2023-06-03 15:15] VITALS: BP 115/64; PULSE 70; RESP 16; O2SAT 100
[2023-06-03 18:51] LABS: Lipase* 38 U/L (23-300)
== END 2023-06-03 17:00 | disposition home or self-care (01) ==
PROVIDERS: Emergency Provider Family Medicine; PCP Nurse Practitioner Family
DX: R10.11 Right upper quadrant pain (principal)
CPT/HCPCS: 36415; 74177; 76705; 80053; 81001; 82248; 83605; 83690; 84703; 85025; 86140; 87086; 93225; 93226; 94761; 96374; 96375; 99283; 99284; J1885; J2405; J7030; Q9967

== ENCOUNTER 2023-06-07 20:08 | Emergency (ER) | payer MEDICAID, SELFPAY ==
[2023-06-07 20:17] VITALS: BP 130/82; PULSE 98; RESP 18; TEMP 37.1; O2SAT 97; BMI 30.4
[2023-06-07 20:20] VITALS: BP 121/82; PULSE 93; RESP 18; O2SAT 99
[2023-06-07 20:30] VITALS: BP 133/83; PULSE 101; RESP 18; TEMP 36.7; O2SAT 98
[2023-06-07] MEDS: PROPRANOLOL 20 MG TABLET PO (21:03)
--- NOTE | 2023-06-07 21:26 | ED.GENADULT ---
HPI - General Adult General Date Seen: 06/07/23 Chief complaint: Dizziness/Vertigo Stated complaint: feeling like she may pass out, feeling dizzy Time Seen by Provider: 06/07/23 20:14 Source: patient Mode of arrival: ambulatory Limitations: no limitations History of Present Illness HPI narrative: Patient is a 23-year-old woman who is recently and notably had eclampsia, was signed out by helicopter to [facility]. She has had significant problems with anxiety since then, has had multiple visits to the ER and actually had an inpatient psychiatric stay a couple of weeks ago, she is on several medications for anxiety at this point and is participating in an outpatient psychiatric program that she goes to Tuesday through . She comes in tonight saying that she has been having symptoms tonight of feeling intermittently confused, vision changes, headaches, lightheadedness, shortness of breath, she admits that she is uncertain whether very these symptoms are due to anxiety, she notes that her heart is racing, all these symptoms come and go and she has had these intermittently throughout the past couple of weeks. She is not able to tell when it is anxiety when it might be something else. She starts to worry that maybe she is having eclamptic symptoms again and she does not know whether she should come in or not. She does say overall she feels like her anxiety symptoms have been getting somewhat better, but she knows that she comes into the hospital lot because she worries about possibly swelling in her brain, recurrent seizures, recurrent high blood pressure, etcetera. She says that her psychiatrist did talk about possibly giving her prescription for propanolol but wanted to talk with her regular doctor 1st. She is actually off of blood pressure medicines because her blood pressures have been around 110/80 and it has been determined that she did not need the nifedipine any longer. She has not had any swelling. She is not having vomiting, altered mentation, or focal neurologic changes. Her she says is good at helping her with her baby and her 2-year-old, but he is also back at work, and her day program will stop in a couple of weeks, so she has anxiety about what will happen when she no longer has that as an outlet. She does not have any family who can help and she worries about being at home with the kids all the time. She is a [id number] mom. She did have problems with depression and anxiety as well as psychosis and PTSD after her 1st baby although symptoms were delayed to about 6 months after she had her baby. Related Data Home Medications Medication Instructions Recorded Confirmed [id number] ps-folate 1 PO 05/10/23 06/02/23 valacyclovir 500 mg tablet 500 mg PO DAILY 05/10/23 06/07/23 (Valtrex) cyanocobalamin (vitamin B-12) 1,000 mcg PO QDAY 06/02/23 06/07/23 1,000 mcg capsule lamotrigine 25 mg tablet (Lamictal) 25 mg PO ONCE 06/02/23 06/07/23 magnesium sulfate 100 mg capsule 250 mg PO QDAY 06/02/23 06/07/23 nifedipine 30 mg tablet,extended 30 mg PO DAILY PRN 06/02/23 release olanzapine 2.5 mg tablet (Zyprexa) 2.5 mg PO QDAY 06/02/23 06/07/23 Previous Rx's Medication Instructions Recorded propranolol 20 mg tablet 20 mg PO BID PRN #30 tabs 06/07/23 Allergies Allergy/AdvReac Type Severity Reaction Status Date / Time No Known Drug Allergies Allergy Verified 06/02/23 09:18 Review of Systems Status of ROS: Reports: 10 or more systems reviewed and unremarkable except as noted in History and below [facility] Medical History Seizure ?R56.9 - Unspecified convulsions (ICD-10) Preeclampsia ?O14.90 - Unspecified pre-eclampsia, unspecified trimester (ICD-10) Family History Maternal Grandfather Heart disease Father Depression Anxiety Paternal Grandmother Anxiety Depression Mother Anxiety Depression Paternal Grandmother Anxiety Depression Social History Narrative: . 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 Current everyday smoker. No alcohol. No illicit drug use. Smoking Status: Current every day smoker What tobacco products do you use: cigarettes Second hand tobacco smoke exposure: No How often do you have a drink containing alcohol: never How often do you have six or more drinks on one occasion: Never AUDIT-C Alcohol total score: 0 Non-prescribed substance use: denies use Little interest or pleasure in doing things: several days Feeling down, depressed, or hopeless: more than half the days service: No Exam Narrative: Exam Narrative: Vital signs as noted above. In general, an alert, well-appearing patient. Head: Normocephalic, atraumatic. Eyes: Pupils are equal reactive. Extraocular movements are full. Conjunctivae are normal. ENT: Mucous membranes are moist. Throat is normal. Neck: Supple without lymphadenopathy. Heart: Regular rate and rhythm. No murmur or rub. Lungs: Clear bilaterally. No increased work of breathing, crackles or wheezes. Abdomen: Soft and nontender. No organomegaly. Extremities: Well perfused. No edema. No calf tenderness. Pulses intact. Neurologic: Patient is alert and oriented to person and place. Speech is fluent. Face is symmetric. Moves all extremities equally. Affect: Normal. Skin: Warm and dry. Well perfused. Const: Vital Signs, click to edit/add: Vital Signs - 24 hr 06/07/23 20:17 06/07/23 20:20 06/07/23 20:30 Temperature 98.8 F 98.1 F Pulse Rate [Left P ulse Oximeter] 98 93 101 H Respiratory Rate 18 18 18 Blood Pressure [Ri ght Upper Arm] 130/82 121/82 133/83 Pulse Oximetry 97 99 98 Oxygen Delivery Me thod Room Air Room Air Room Air Course Course Hospital Course: I had a lengthy conversation with her. She was initially fairly anxious but calmed down quite a bit as we talked. I have reviewed her records, she has had multiple recent visits and lots of labs done as recently as 4 days ago all of which were normal. Her vital signs here initially she was tachycardic, she did have an EKG done and she has occasional PVCs, but otherwise has a sinus rhythm, was little tachycardic when she came in but came down to a sinus rhythm with rare PVCs. Her blood pressure initially was in the 130 systolic, came down to 110 systolic. I did give her a dose of propanolol here and I am giving her prescription as I think it is reasonable for her to have that when she starts to feel more agitated. She is working with a psychiatrist on medication management, she has her outpatient program. They were talking about EMDR which I think would be a good option for her in terms of managing the PTSD component from her eclampsia. I discussed with her I do not think she needs additional evaluation tonight, I think her symptoms are related to anxiety and she agrees. She does feel quite a bit better and is comfortable going home tonight. Reviewed with her that I think in the short term if she needs to come back if she is having uncontrolled anxiety that may be her best option, but I would go ahead and try the propanolol and see if that helps as I think if her physical symptoms are better controlled as she may be able to get things under better control from an anxiety standpoint. Continue current therapies. Vital Signs Vital signs: Initial Vital Signs Temperature 98.8 F 06/07/23 20:17 Temperature Source Temporal Artery Scan 06/07/23 20:17 Pulse Rate 98 06/07/23 20:17 Respiratory Rate 18 06/07/23 20:17 Blood Pressure 130/82 06/07/23 20:17 Blood Pressure Mean 98 06/07/23 20:17 Blood Pressure Position Sitting 06/07/23 20:17 Pulse Oximetry 97 06/07/23 20:17 Oxygen Delivery Method Room Air 06/07/23 20:17 Vital Signs Temperature 98.8 F 06/07/23 20:17 Pulse Rate 98 06/07/23 20:17 Respiratory Rate 18 06/07/23 20:17 Blood Pressure 130/82 06/07/23 20:17 Pulse Oximetry 97 06/07/23 20:17 Oxygen Delivery Method Room Air 06/07/23 20:17 Temperature 98.1 F 06/07/23 20:30 Pulse Rate 101 H 06/07/23 20:30 Respiratory Rate 18 06/07/23 20:30 Blood Pressure 133/83 06/07/23 20:30 Pulse Oximetry 98 06/07/23 20:30 Oxygen Delivery Method Room Air 06/07/23 20:30 Discharge Plan Discharge Clinical Impression: Anxiety Patient Disposition: Home, Self-Care Condition: Improved Instructions: Anxiety (ED) Additional Instructions: Continue your medications, consider EMDR therapy as discussed. Add propranolol as needed for symptoms of heart racing, lightheadedness, elevated blood pressure etcetera. Continue your outpatient and psychiatric therapy. Return to the emergency department as needed for acute worsening. Prescriptions: New propranolol 20 mg tablet 20 mg PO BID PRNQty: 30 0RF No Action magnesium sulfate 100 mg capsule 250 mg PO QDAY nifedipine 30 mg tablet extended release 30 mg PO DAILY PRN olanzapine [Zyprexa] 2.5 mg tablet 2.5 mg PO QDAY Rx Instructions: 2.5 am and 5mg PM lamotrigine [Lamictal] 25 mg tablet 25 mg PO ONCE cyanocobalamin (vitamin B-12) 1,000 mcg capsule 1,000 mcg PO QDAY valacyclovir [Valtrex] 500 mg tablet 500 mg PO DAILY [id number] ps-folate 1 PO Follow Up/Referrals: Comfort Platt, ADVERTISING COPYWRITER, PULL OVER [Primary Care Provider] - Stand Alone Forms: [facility] Info Instructions
== END 2023-06-07 21:04 | disposition home or self-care (01) ==
LOC: ED 20:55
PROVIDERS: Emergency Provider Emergency Medicine; PCP Nurse Practitioner Family
DX: F41.9 Anxiety disorder, unspecified (principal)
CPT/HCPCS: 93005; 99283; 99284; A9270

== ENCOUNTER 2023-07-01 15:50 | Outpatient (CLI) | payer MEDICAID, SELFPAY ==
[2023-07-01 18:32] LABS: Chlamydia DNA Amplified* NOT DETECTED (No Detected); GC DNA Amplified* NOT DETECTED (No Detected)
== END 2023-07-01 15:51 | disposition home or self-care (01) ==
LOC: NFLDREF 15:50
PROVIDERS: PCP Nurse Practitioner Family; Visit Provider Registered Nurse
DX: Z11.3 Encounter for screening for infections with a predominantly sexual mode of transmission (principal)
CPT/HCPCS: 87491; 87591

== ENCOUNTER 2023-09-15 08:54 | Day surgery (SDC) | payer MEDICAID, SELFPAY ==
[2023-09-15] VITALS (11 sets, daily range): BP systolic 83–132; BP diastolic 42–71; PULSE 43–84; RESP 12–21; TEMP 35.8–36.7; O2SAT 94–100; BMI 31.7
[2023-09-15] MEDS: LACTATED RINGERS 1000 ML 1,000 ML 100 ML IV (09:15)
[2023-09-15] MEDS: SODIUM CHLORIDE 0.9 % (FLUSH) 10 ML SYRINGE IVF (09:15)
[2023-09-15 09:38] LABS: Hemoglobin* 13.4 gm/dL (12.0-16.0)
[2023-09-15 09:40] LABS: Ur HCG Qualitative* Negative (Negative)
--- NOTE | 2023-09-15 10:12 | W.PM.H&PU ---
History & Physical Update History & Physical Update H&P Reviewed and patient assessed: No changes noted H&P Updates: Preoperative diagnosis: Undesired fertility Planned procedures: laparoscopic bilateral salpingectomy Labs: hemoglobin 13.4 urine hCG negative
--- NOTE | 2023-09-15 11:56 | W.ANESCHARGE ---
Anesthesia Charges Start Date/Time Anesthesia Start Date: 09/15/23 Anesthesia Start Time: 10:28 Stop Date/Time Anesthesia Stop Date: 09/15/23 Anesthesia Stop Time: 11:55
--- NOTE | 2023-09-15 11:57 | W.ANESCHARGE ---
Anesthesia Charges Start Date/Time Anesthesia Start Date: 09/15/23 Anesthesia Start Time: 10:28 Stop Date/Time Anesthesia Stop Date: 09/15/23 Anesthesia Stop Time: 11:55
--- NOTE | 2023-09-15 12:01 | P.GYNPRC_ITS ---
Procedure Note Date of procedure: 09/15/23 Pre-op diagnosis: Undesired fertility Post-op diagnosis: same Procedure: Laparoscopic bilateral salpingectomy Anesthesia: GETA Complications: None Surgeon: Isis Walker MD Estimated blood loss (mL): 5 IV fluids (mL): 900 Pathology: specimen obtained, sent to pathology (Fallopian tubes. Intention to send to pathology was confirmed in postoperative debrief.) Condition: stable Disposition: same day Findings: 1. Upon pelvic exam under anesthesia, the cervix and vagina were normal in appearance. Uterus was mobile and anteverted, of normal size and texture. There were no palpable adnexal masses. 2. Upon laparoscopy, survey of the upper abdomen revealed a normal appearance to the inferior edge of the liver, gallbladder and stomach. Bowels were grossly normal appearance, as was the appendix. Survey of the pelvis revealed normal appearance to the uterus. Bilateral tubes and ovaries were normal in appearance. The cul-de-sac and bladder reflection were normal in appearance. Procedure Description: Patient was taken to the operating room with IV running. She was positioned in dorsal lithotomy position with her legs fully supported in Yellofin stirrups. General anesthesia was administered. She was prepped and draped in the usual sterile fashion. Bimanual exam was performed for the above-noted findings. Speculum was inserted. A single-toothed uterine manipulator was inserted through the cervix into the lower uterine segment, and affixed to the anterior cervical lip. Speculum was removed. Yun catheter was placed. Patient's legs were placed in neutral position. Attention was turned to patient's abdomen. The infraumbilical area was infiltrated with small amount of Marcaine. An infraumbilical incision was made with a scalpel and carried through to the underlying layer of fascia with a hemostat. The 5 mm Fios Kii trocar was assembled with laparoscope within, and insufflator attached. While tenting up the abdomen manually, the trocar was passed through the anterior abdominal wall into the peritoneal cavity. Trocar was removed. Pneumoperitoneum was achieved. Survey of abdomen and pelvis revealed the above-noted findings. Two additional port sites were created. The first was in the patient's left lower quadrant, just superior medial to the left ASIS. The second was a hand's breath superior to and slightly medial to the first. Each was infiltrated with small amount of Marcaine prior to incision. A 5 mm incision was made at each site, making sure the large vessels were out of harm's way. A 5 mm Fios Kii port was inserted at each site, under direct visualization and without complication. The balloon on each of the three ports was inflated, holding each in place. The left fallopian tube was elevated away from the left pelvic sidewall. Using the Thunderbeat device, this was divided from its blood supply, which was cauter ized and transected. Dissection was carried laterally to medially through the mesosalpinx, reaching the left uterine cornua. The tube was amputated at the left uterine cornua and removed through the port. Hemostasis was noted. Attention was then turned to the right fallopian tube, which was similarly elevated away from the right pelvic sidewall. The Thunderbeat device was again used to cauterize and transect the blood supply and divide the tube from the mesosalpinx. It was amputated at the right uterine cornua. Hemostasis of the pedicle was achieved with Thunderbeat. Bilateral fallopian tubes were sent to pathology for further analysis. All instruments were removed from the port sites. The balloon tip of all of the ports were deflated. Pneumoperitoneum was released and ports removed. The skin of each port site was closed with a subcuticular stitch of 4 Monocryl. Surgical glue was applied above this. With the patient's legs back in lithotomy position, the uterine manipulator was removed. Hemostasis of the puncture wound of the cervix was attained with silver nitrate. Catheter was removed. Patient tolerated procedure well and was taken to recovery area in stable condition.
[2023-09-15] MEDS: HYDROmorphone 0.5 mg/0.5 ml inj IVP (12:03)
== END 2023-09-15 13:12 | disposition home or self-care (01) ==
PROVIDERS: PCP Nurse Practitioner Family; Visit Provider Obstetrics & Gynecology
PROC: (CPT 58661; principal; 2023-09-15 10:15)
DX: Z30.2 Encounter for sterilization (principal)
CPT/HCPCS: 58661; 00851; 36415; 81025; 85018; 86850; 86900; 86901; A9270; J1100; J1170; J1885; J2405; J2704; J2710; J3010; J7120

== ENCOUNTER 2023-09-15 22:15 | Emergency (ER) | payer MEDICAID, SELFPAY ==
[2023-09-15 22:25] VITALS: BP 135/76; PULSE 155; RESP 30; TEMP 37.6; O2SAT 97; BMI 31.3
[2023-09-15] MEDS: LORazepam 1 MG TABLET PO (22:33)
--- NOTE | 2023-09-15 22:36 | ED_ITS ---
HPI - General Adult General Date Seen: 09/15/23 Chief complaint: Anxiety Stated complaint: Post-surgery, having a panic attack Time Seen by Provider: 09/15/23 22:19 Source: patient Mode of arrival: ambulatory Limitations: no limitations History of Present Illness HPI narrative: Patient is a 23-year-old female with a history of panic attacks and generalized anxiety since her eclampsia this summer presenting to emergency department for what she believes is a panic attack. She states she have salpingectomy this morning around 10:00 and was not having any issues but started having worsening anxiety throughout the day. She states she took an oxycodone at 19:00 and her BuSpar at 21:00. She states her anxiety has been getting worse and she feels short of breath, tingling sensation in her arms, lightheaded and dizzy. She states this feels like a previous panic attacks but is not taking any benzodiazepines for these symptoms today. Denies fevers, chills, abdominal pain, headache, weakness. Related Data Home Medications Medication Instructions Recorded Confirmed [id number] ps-folate 1 PO 05/10/23 08/30/23 valacyclovir 500 mg tablet 500 mg PO DAILY 05/10/23 09/15/23 (Valtrex) ascorbic acid (vitamin C) 1,000 mg 1 g PO Q6H 06/28/23 09/15/23 tablet ferrous sulfate 325 mg (65 mg 325 mg PO QDAY 06/28/23 09/15/23 iron) tablet (Iron (ferrous sulfate)) buspirone 15 mg tablet 15 mg PO BID 08/30/23 09/15/23 sertraline 100 mg tablet 100 mg PO QDAY 08/30/23 09/15/23 Previous Rx's Medication Instructions Recorded albuterol sulfate 90 mcg/actuation 2 puff inhalation Q4-6H PRN 08/30/23 aerosol inhaler shortness of breath or wheezing #8.5 grams acetaminophen 500 mg tablet 1,000 mg (2 x 500 mg) PO Q6H PRN 09/15/23 Pain #0 tabs oxycodone 5 mg tablet 5 mg PO Q4H PRN 4 OR GREATER ON 09/15/23 PAIN SCALE #25 tabs Allergies Allergy/AdvReac Type Severity Reaction Status Date / Time tea tree Allergy Mild Verified 09/15/23 09:05 lamotrigine [From Lamictal] Allergy Verified 09/15/23 09:05 Review of Systems Status of ROS: Reports: 10 or more systems reviewed and unremarkable except as noted in History and below PFSH PFSH Medical History PTSD (post-traumatic stress disorder) ?F43.10 - Post-traumatic stress disorder, unspecified (ICD-10) Palpitations ?R00.2 - Palpitations (ICD-10) Hypertension ?I10 - Essential (primary) hypertension (ICD-10) Eclampsia ?O15.9 - Eclampsia, unspecified as to time period (ICD-10) Anxiety, generalized ?F41.1 - Generalized anxiety disorder (ICD-10) Migraines ?G43.909 - Migraine, unspecified, not intractable, without status migrainosus (ICD-10) Seizure ?R56.9 - Unspecified convulsions (ICD-10) Surgical History No history of previous surgery Family History Maternal Grandfather Heart disease Father Depression Anxiety Alcohol dependence Drug dependence Paternal Grandmother Anxiety Depression Mother Anxiety Depression Diabetes Alcohol dependence Drug dependence Maternal Grandmother Preeclampsia Paternal Grandfather Anxiety Depression Alcohol dependence Eczema Social History Narrative: . 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 The patient vapes. No alcohol. No illicit drug use. What is your current living situation?: I presently have a place to live Problems where you live: no known problems In the past 12 months, utilities in danger of being shut off: no In past 12 months, lack of transportation kept you from medical appts, meetings, work, or getting things needed for daily living: no In the past 12 mos, have been you worried that your food would run out before you had money to buy more?: never true In the past 12 mos, the food you bought just didn't last and you didn't have money to buy more?: never true Smoking Status: Current every day smoker What tobacco products do you use: cigarettes Second hand tobacco smoke exposure: Yes How often do you have a drink containing alcohol: never How often do you have six or more drinks on one occasion: Never AUDIT-C Alcohol total score: 0 Non-prescribed substance use: denies use Caffeine: Yes How often does anyone, including family, friends and others, physically hurt you : never How often does anyone, including family, friends and others, insult or talk down to you: never How often does anyone, including family, friends and others, threaten you with harm: never How often does anyone, including family, friends and others, scream or curse at you: never Little interest or pleasure in doing things: several days Feeling down, depressed, or hopeless: more than half the days service: No Exam Narrative: Exam Narrative: Const: Well-nourished, Well-developed, in moderate distress Eyes: PERRL, no conjunctival injection, and symmetrical lids HENT: Atraumatic external nose and ears. Moist mucous membranes. Neck: Symmetric, trachea midline, No thyromegaly. CVS: Tachycardic, No murmurs or gallops. Peripheral pulses 2+ and equal in all extremities RESP: Tachypneic. Clear to auscultation bilaterally. GI: Nontender/Nondistended, No rebound or guarding. MSK:Extremities w/o deformity, Normal Active ROM Skin: Warm, Dry. No rashes or lesions. Neuro: Normal Muscle tone, No focal neurological deficits. Psych: Awake, Alert, & Oriented x3. Appropriate mood and affect. Const: Vital Signs, click to edit/add: Vital Signs - 24 hr 09/15/23 22:25 Temperature 99.7 F H Pulse Rate [Pulse Oximeter] 155 H Respiratory Rate 30 H Blood Pressure [Ri ght Upper Arm] 135/76 Pulse Oximetry 97 Oxygen Delivery Me thod Room Air Course Vital Signs Vital signs: Initial Vital Signs Respiratory Effort Normal, Spontaneous, Non-Labored 09/15/23 22:19 Respiratory Depth Normal 09/15/23 22:19 Respiratory Pattern Normal 09/15/23 22:19 Vital Signs Temperature 99.7 F H 09/15/23 22:25 Pulse Rate 155 H 09/15/23 22:25 Respiratory Rate 30 H 09/15/23 22:25 Blood Pressure 135/76 09/15/23 22:25 Pulse Oximetry 97 09/15/23 22:25 Oxygen Delivery Method Room Air 09/15/23 22:25 Temperature 99.7 F H 09/15/23 22:25 Pulse Rate 155 H 09/15/23 22:25 Respiratory Rate 30 H 09/15/23 22:25 Blood Pressure 135/76 09/15/23 22:25 Pulse Oximetry 97 09/15/23 22:25 Oxygen Delivery Method Room Air 09/15/23 22:25 Medications Administered Medications: Discontinued Medications Generic Name Dose Route Start Last Admin Trade Name Evens PRN Reason Stop Dose Admin Lorazepam 1 mg 09/15/23 22:30 09/15/23 22:33 Lorazepam 1 Mg Tablet PO 09/15/23 22:31 1 mg ONCE ONE Administration Medical Decision Making MDM Narrative Medical decision making narrative: Patient is a 23-year-old female presents to emergency department for multiple symptoms. She states this feels like a panic attack so I will give her a dose of Ativan p.o. to the help with her symptoms. The symptoms persist we will do further workup. Her surgery was very recent so that seems unlikely it would be a pulmonary embolism. At her age ACS also seems unlikely. Pneumonia and pneumothorax are on the differential at this time. After the Ativan her symptoms resolved and her heart rate came down to between 90 and 96. She states she feels much better and feels safe for discharge. I do not believe further workup is necessary at this time as appears all other symptoms were from her anxiety. I did give her return give her return precautions. She states he understands. Discharge Plan Discharge Clinical Impression: Panic disorder Patient Disposition: Home, Self-Care Condition: Improved Instructions: Panic Attack (ED) Additional Instructions: Appears symptoms are all from anxiety. Of note since he did have recent surgery today does increase her chance of blood clots for the next few weeks of he developed shortness of breath and chest pain again it is reasonable to come in to be re-evaluated. Prescriptions: No Action buspirone 15 mg tablet 15 mg PO BID sertraline 100 mg tablet 100 mg PO QDAY albuterol sulfate 90 mcg/actuation HFA aerosol inhaler 2 puff inhalation Q4-6H PRN (Reason: shortness of breath or wheezing) Qty: 8.5 0RF ferrous sulfate [Iron (ferrous sulfate)] 325 mg (65 mg iron) tablet 325 mg PO QDAY ascorbic acid (vitamin C) 1,000 mg tablet 1 g PO Q6H acetaminophen 500 mg Tablet 1,000 mg PO Q6H PRN (Reason: Pain) Qty: 0 0RF oxycodone 5 mg Tablet 5 mg PO Q4H PRN (Reason: 4 OR GREATER ON PAIN SCALE) Qty: 25 0RF valacyclovir [Valtrex] 500 mg tablet 500 mg PO DAILY [id number] ps-folate 1 PO Follow Up/Referrals: Comfort Platt, VAZQUEZ, INSURANCE SALES REPRESENTATIVE [Primary Care Provider] - Stand [facility]
[2023-09-15 23:25] VITALS: PULSE 93; RESP 18; O2SAT 98
[2023-09-15 23:47] VITALS: BP 135/76; PULSE 93; RESP 18; TEMP 37.6
== END 2023-09-15 23:48 | disposition home or self-care (01) ==
PROVIDERS: Emergency Provider Student in an Organized Health Care Education/Training Program; PCP Nurse Practitioner Family
DX: F41.0 Panic disorder [episodic paroxysmal anxiety] (principal)
CPT/HCPCS: 99282; 99283; A9270

== ENCOUNTER 2023-09-22 17:04 | Emergency (ER) | payer MEDICAID, SELFPAY ==
[2023-09-22 17:22] VITALS: BP 122/80; PULSE 91; TEMP 36.6; O2SAT 98; BMI 31.3
--- NOTE | 2023-09-22 17:42 | ED.GENADULT ---
HPI - General Adult General Date Seen: 09/22/23 Chief complaint: Skin/Abscess/Foreign Body Stated complaint: Ref from UC-wound from tube removal needs restuck Time Seen by Provider: 09/22/23 17:26 History of Present Illness HPI narrative: 23-year-old female with a past medical history including anxiety, GERD, anemia, previous eclampsia, who underwent laparoscopic tubal ligation 1 week ago on 09/[address] Walker here at [facility] [place] presents to the ER today with concern that 1 of her laparoscopic incisions is opening. She had has been healing well from her incision. No bleeding, drainage, or redness around any of her 3 incisions. Today the Dermabond glue was peeling up from the incision from her left lower quadrant. She peeled off (even though her told her leave it alone). After doing so the edges of the wound began to open up about a mm. She called her doctor's office and they told to come in. She went to the Urgent Care. When she told them that her wound was peeling open, they directly referred her to the emergency department review of without examining her. Only she felt like she probably could have been treated in the Urgent Care, but came to here to the ER anyway. She is not having any pain. No redness. No drainage. No bleeding. No fever. Other incisions are fine. Related Data Home Medications Medication Instructions Recorded Confirmed [id number] ps-folate 1 PO 05/10/23 08/30/23 valacyclovir 500 mg tablet 500 mg PO DAILY 05/10/23 09/15/23 (Valtrex) ascorbic acid (vitamin C) 1,000 mg 1 g PO Q6H 06/28/23 09/15/23 tablet ferrous sulfate 325 mg (65 mg 325 mg PO QDAY 06/28/23 09/15/23 iron) tablet (Iron (ferrous sulfate)) buspirone 15 mg tablet 15 mg PO BID 08/30/23 09/15/23 sertraline 100 mg tablet 100 mg PO QDAY 08/30/23 09/15/23 Previous Rx's Medication Instructions Recorded albuterol sulfate 90 mcg/actuation 2 puff inhalation Q4-6H PRN 08/30/23 aerosol inhaler shortness of breath or wheezing #8.5 grams acetaminophen 500 mg tablet 1,000 mg (2 x 500 mg) PO Q6H PRN 09/15/23 Pain #0 tabs oxycodone 5 mg tablet 5 mg PO Q4H PRN 4 OR GREATER ON 09/15/23 PAIN SCALE #25 tabs Allergies Allergy/AdvReac Type Severity Reaction Status Date / Time tea tree Allergy Mild Verified 09/15/23 09:05 lamotrigine [From Lamictal] Allergy Verified 09/15/23 09:05 [facility] Medical History PTSD (post-traumatic stress disorder) ?F43.10 - Post-traumatic stress disorder, unspecified (ICD-10) Palpitations ?R00.2 - Palpitations (ICD-10) Hypertension ?I10 - Essential (primary) hypertension (ICD-10) Eclampsia ?O15.9 - Eclampsia, unspecified as to time period (ICD-10) Anxiety, generalized ?F41.1 - Generalized anxiety disorder (ICD-10) Migraines ?G43.909 - Migraine, unspecified, not intractable, without status migrainosus (ICD-10) Seizure ?R56.9 - Unspecified convulsions (ICD-10) Surgical History No history of previous surgery Family History Maternal Grandfather Heart disease Father Depression Anxiety Alcohol dependence Drug dependence Paternal Grandmother Anxiety Depression Mother Anxiety Depression Diabetes Alcohol dependence Drug dependence Maternal Grandmother Preeclampsia Paternal Grandfather Anxiety Depression Alcohol dependence Eczema Social History Narrative: . 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 The patient vapes. No alcohol. No illicit drug use. What is your current living situation?: I presently have a place to live Problems where you live: no known problems In the past 12 months, utilities in danger of being shut off: no In past 12 months, lack of transportation kept you from medical appts, meetings, work, or getting things needed for daily living: no In the past 12 mos, have been you worried that your food would run out before you had money to buy more?: never true In the past 12 mos, the food you bought just didn't last and you didn't have money to buy more?: never true Smoking Status: Current every day smoker What tobacco products do you use: cigarettes Do you use any of these nicotine containing products: None Second hand tobacco smoke exposure: Yes How often do you have a drink containing alcohol: never How often do you have six or more drinks on one occasion: Never AUDIT-C Alcohol total score: 0 Non-prescribed substance use: denies use Caffeine: Yes How often does anyone, including family, friends and others, physically hurt you: never How often does anyone, including family, friends and others, insult or talk down to you: never How often does anyone, including family, friends and others, threaten you with harm: never How often does anyone, including family, friends and others, scream or curse at you: never Little interest or pleasure in doing things: several days Feeling down, depressed, or hopeless: more than half the days service: No Exam Narrative: Exam Narrative: Constitutional: Appears well-developed and well-nourished. Alert. Conversant. Non toxic. HENT: Head: Atraumatic. Nose: Nose normal. Mouth/Throat: Oral mucosa is clear and moist. no trismus. Pharynx normal. Tonsils symmetric. No tonsillar enlargement, erythema, or exudate. Eyes: Conjunctivae normal. EOM normal. Pupils equal, round, and reactive to light. No scleral icterus. Neck: Normal range of motion. Neck supple. No tracheal deviation present. Cardiovascular: Normal rate, regular rhythm. N normal cap refill Pulmonary/Chest: Effort normal. No stridor. No respiratory distress. No wheezes. No rales. No rhonchi . Abdominal: Soft. Three her laparoscopic incisions. The incision in the periumbilical region and in the left central abdomen looked good. The incision in left lower quadrant has the Dermabond removed. The wound edges dehisced about 1 mm at the skin edge. I think it is being held together by a subcuticular stitch. There is no redness. No drainage. No bleeding from any of her incisions. No tenderness. Bowel sounds normal. No distension. No mass. No tenderness. No rebound. No guarding. Musculoskeletal: RUE: Normal range of motion. No tenderness. No deformity LUE: Normal range of motion. No tenderness. No deformity RLE: Normal range of motion. No edema. No tenderness. No deformity LLE: Normal range of motion. No edema. No tenderness. No deformity Neurological: Alert and oriented to person, place, and time. Normal strength. CN II-VII intact. No sensory deficit. GCS eye subscore is 4. GCS verbal subscore is 5. GCS motor subscore is 6. Normal coordination Skin: Skin is warm and dry. No rash noted. No pallor. Normal capillary refill. Psychiatric: Normal mood. Normal affect. Const: Vital Signs, click to edit/add: Vital Signs - 24 hr 09/22/23 17:22 Temperature 97.9 F Pulse Rate [Pulse Oximeter] 91 Blood Pressure [Ri ght Upper Arm] 122/80 Pulse Oximetry 98 Oxygen Delivery Me thod Room Air Course Vital Signs Vital signs: Initial Vital Signs Temperature 97.9 F 09/22/23 17:22 Temperature Source Temporal Artery Scan 09/22/23 17:22 Pulse Rate 91 09/22/23 17:22 Pulse Rhythm Regular 09/22/23 17:22 Blood Pressure 122/80 09/22/23 17:22 Blood Pressure Mean 94 09/22/23 17:22 Blood Pressure Position Sitting 09/22/23 17:22 Pulse Oximetry 98 09/22/23 17:22 Oxygen Delivery Method Room Air 09/22/23 17:22 Vital Signs Temperature 97.9 F 09/22/23 17:22 Pulse Rate 91 09/22/23 17:22 Blood Pressure 122/80 09/22/23 17:22 Pulse Oximetry 98 09/22/23 17:22 Oxygen Delivery Method Room Air 09/22/23 17:22 Temperature 97.9 F 09/22/23 17:22 Pulse Rate 91 09/22/23 17:22 Blood Pressure 122/80 09/22/23 17:22 Pulse Oximetry 98 09/22/23 17:22 Oxygen Delivery Method Room Air 09/22/23 17:22 Medical Decision Making MDM Narrative Medical decision making narrative: Very pleasant 23-year-old females who is 7 days status post laparoscopic tubal ligation presents to the ER today with concerned that her left lower quadrant laparoscopic incision is breaking open. She was picking at and subsequently removed the Dermabond tissue adhesive from the skin this morning. On exam the wound edges gaping about 1 mm or so. There is no redness or warmth suggest abscess. No bleeding. No purulent drainage to suggest seroma. Overall I think the wound is actually healing well. I think it is probably being held together by subcuticular stitches. We did place 1 Steri-Strips across the wound edges to help give it support. Brother in 2 incisions look good and there Dermabond is well in place. At this point I do not think patient needs lab workup, ultrasound or CT imaging, or surgical consultation. She will monitor carefully at home. Precautions for follow-up and return to the ER reviewed. Questions answered.. Discharge Plan Discharge Clinical Impression: Encounter for wound re-check Patient Disposition: Home, Self-Care Condition: Stable Instructions: Laceration (DC) Additional Instructions: Please monitor your incisions carefully. If you develop redness, swelling, drainage of fluid or pus from her wounds, high fever, or have any overt problems, please call your surgeon or come back to the ER right away to be rechecked. To care for your incisions, try to keep them clean and dry. Keep the incision with a Steri-Strip on it covered with a Band-Aid. Avoid picking at the Steri-Strips or glue. If the Steri-Strips does start to peel off, you can reapply a new Steri-Strips or trim off the peeling edges of the Steri-Strip with a nail clipper. Prescriptions: No Action buspirone 15 mg tablet 15 mg PO BID sertraline 100 mg tablet 100 mg PO QDAY albuterol sulfate 90 mcg/actuation HFA aerosol inhaler 2 puff inhalation Q4-6H PRN (Reason: shortness of breath or wheezing) Qty: 8.5 0RF ferrous sulfate [Iron (ferrous sulfate)] 325 mg (65 mg iron) tablet 325 mg PO QDAY ascorbic acid (vitamin C) 1,000 mg tablet 1 g PO Q6H acetaminophen 500 mg Tablet 1,000 mg PO Q6H PRN (Reason: Pain) Qty: 0 0RF oxycodone 5 mg Tablet 5 mg PO Q4H PRN (Reason: 4 OR GREATER ON PAIN SCALE) Qty: 25 0RF valacyclovir [Valtrex] 500 mg tablet 500 mg PO DAILY [id number] ps-folate 1 PO Follow Up/Referrals: Comfort Platt, [employer]ER, INFORMATION DIRECTOR [Primary Care Provider] - Stand Alone Forms: MyHealth Info Instructions Discharge Comment: Pt discharged @ [id number]
== END 2023-09-22 18:00 | disposition home or self-care (01) ==
LOC: ED 17:57
PROVIDERS: Emergency Provider Emergency Medicine; PCP Nurse Practitioner Family
DX: Z48.89 Encounter for other specified surgical aftercare (principal)
CPT/HCPCS: 95992; 99281; 99282

== ENCOUNTER 2023-09-28 18:47 | Emergency (ER) | payer MEDICAID, SELFPAY ==
[2023-09-28 19:07] VITALS: BP 132/73; PULSE 110; RESP 16; TEMP 36.4; O2SAT 99; BMI 31.3
--- NOTE | 2023-09-28 19:17 | CRLHL7_ITS ---
For Patients: As a result of the Century Cures Act, medical imaging exams and procedure reports are released immediately into your electronic medical record. You may view this report before your referring provider. If you have questions, please contact your health care provider. INDICATION: Left lower extremity pain. TECHNIQUE: Ultrasound venous duplex lower left extremity. Compression venous exam was performed using rand-scale, color Doppler, and spectral Doppler analysis. Permanently recorded images are archived. COMPARISON: None. FINDINGS: Deep veins: Sonographic imaging demonstrates the left common femoral, deep femoral, superficial femoral, popliteal, posterior tibial, peroneal and the contralateral right common femoral veins to be fully compressible with normal color Doppler blood flow. Superficial veins: Greater saphenous vein is fully compressible. No popliteal cyst. IMPRESSION: No deep venous thrombosis in the evaluated veins of the left lower extremity. Dictated by Cruz Garrido MD @ 09/28/2023 8:45:51 PM (Electronically Signed)
--- NOTE | 2023-09-28 19:17 | ED_ITS ---
HPI - General Adult General Chief complaint: Cough Stated complaint: Cough, shortness of breath, elevated heartrate/BP Time Seen by Provider: 09/28/23 18:50 History of Present Illness HPI narrative: This 23-year-old female was seen in urgent care earlier today and noted to have slightly elevated heart rate. The patient does have history of anxiety and states that she has recently tapering off of 2 antidepressant medications. She does have an occasional cough. She also reports a recent surgery under anesthesia where she had tubal ligation. She was indicating some discomfort in her left upper leg and comes here to rule out deep venous thrombosis. The patient did receive a prescription for steroid at her urgent care visit. She arrives here with normal vital signs but does have a slightly elevated heart rate at 110 beats per minute. She admits to being anxious and is rather fidgety during the time of my initial interview. Related Data Home Medications Medication Instructions Recorded Confirmed [id number] ps-folate 1 PO 05/10/23 09/28/23 valacyclovir 500 mg tablet 500 mg PO DAILY 05/10/23 09/28/23 (Valtrex) ascorbic acid (vitamin C) 1,000 mg 1 g PO Q6H 06/28/23 09/28/23 tablet ferrous sulfate 325 mg (65 mg 325 mg PO QDAY 06/28/23 09/28/23 iron) tablet (Iron (ferrous sulfate)) buspirone 15 mg tablet 15 mg PO BID 08/30/23 09/28/23 sertraline 100 mg tablet 100 mg PO QDAY 08/30/23 09/28/23 lorazepam 1 mg tablet mg PO 09/28/23 09/28/23 Previous Rx's Medication Instructions Recorded albuterol sulfate 90 mcg/actuation 2 puff inhalation Q4-6H PRN 08/30/23 aerosol inhaler shortness of breath or wheezing #8.5 grams acetaminophen 500 mg tablet 1,000 mg (2 x 500 mg) PO Q6H PRN 09/15/23 Pain #0 tabs prednisone 20 mg tablet 40 mg (2 x 20 mg) PO QDAY 5 days 09/28/23 #10 tabs Allergies Allergy/AdvReac Type Severity Reaction Status Date / Time tea tree Allergy Mild Verified 09/28/23 15:58 adhesive Allergy Rash Verified 09/28/23 15:58 lamotrigine [From Lamictal] Allergy Verified 09/28/23 15:58 Review of Systems Status of ROS: Reports: 10 or more systems reviewed and unremarkable except as noted in History and below Narrative: Constitutional: No fevers, no weight gain or loss. Eyes: No discharge. No vision changes. HENT: No congestion, no sore throat, no ear pain. Cardiovascular: No chest pain, no palpitations. Respiratory: No shortness of breath, no wheezes, no cough. Gastrointestinal: No abdominal pain, no vomiting, no diarrhea. Genitourinary: No dysuria, no hematuria. Musculoskeletal: Normal range of motion. Skin: No rashes, no pruritis. Neurological: No dizziness, weakness, sensory change, speech change. Endo/Heme/Allergies: No bruising or bleeding. No polydipsia. Pysch: no suicidality, no insomnia. She reports anxiety symptoms. All other systems reviewed and are negative. [facility] Medical History (Updated 09/28/23 @ 20:25 by Art Bray MD) PTSD (post-traumatic stress disorder) ?F43.10 - Post-traumatic stress disorder, unspecified (ICD-10) Palpitations ?R00.2 - Palpitations (ICD-10) Hypertension ?I10 - Essential (primary) hypertension (ICD-10) Eclampsia ?O15.9 - Eclampsia, unspecified as to time period (ICD-10) Anxiety, generalized ?F41.1 - Generalized anxiety disorder (ICD-10) Migraines ?G43.909 - Migraine, unspecified, not intractable, without status migrainosus (ICD-10) Seizure ?R56.9 - Unspecified convulsions (ICD-10) Surgical History (Updated 09/23/23 @ 07:00 by Comfort Platt APRN, [employer]) H/O tubal ligation ?Z98.51 - Tubal ligation status (ICD-10) Family History Maternal Grandfather Heart disease Father Depression Anxiety Alcohol dependence Drug dependence Paternal Grandmother Anxiety Depression Mother Anxiety Depression Diabetes Alcohol dependence Drug dependence Maternal Grandmother Preeclampsia Paternal Grandfather Anxiety Depression Alcohol dependence Eczema Social History Narrative: . 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 The patient vapes. No alcohol. No illicit drug use. What is your current living situation?: I presently have a place to live Problems where you live: no known problems In the past 12 months, utilities in danger of being shut off: no In past 12 months, lack of transportation kept you from medical appts, meetings, work, or getting things needed for daily living: no In the past 12 mos, have been you worried that your food would run out before you had money to buy more?: never true In the past 12 mos, the food you bought just didn't last and you didn't have money to buy more?: never true Smoking Status: Current every day smoker What tobacco products do you use: cigarettes Do you use any of these nicotine containing products: None Second hand tobacco smoke exposure: Yes How often do you have a drink containing alcohol: never How often do you have six or more drinks on one occasion: Never AUDIT-C Alcohol total score: 0 Non-prescribed substance use: denies use Caffeine: Yes How often does anyone, including family, friends and others, physically hurt you : never How often does anyone, including family, friends and others, insult or talk down to you: never How often does anyone, including family, friends and others, threaten you with harm: never How often does anyone, including family, friends and others, scream or curse at you: never Little interest or pleasure in doing things: several days Feeling down, depressed, or hopeless: more than half the days service: No Exam Narrative: Exam Narrative: Constitutional: Well-developed, well-nourished, no acute distress. HEENT: Normocephalic, atraumatic. Neck: Normal range of motion. Nontender. Supple. Heart: Regular. No murmurs. Tachycardia. Intact distal pulses. Lungs: Clear to auscultation. No chest discomfort. No wheezes, rhonchi, or rales. Abdomen: Normal bowel sounds. Nontender. No rebound tenderness. Genitalia: Deferred. Back: No midline tenderness. Normal range of motion. Extremities: Normal range of motion. No injury. No unilateral leg swelling. She reports some discomfort in her left upper thigh. Skin: Intact. No rash. Warm. No erythema or pallor. Neurologic: No altered sensation. No weakness. Alert and oriented. Psychiatric: No suicidality. No insomnia. She has anxiety symptoms. Nursing notes and vitals signs are reviewed. Const: Vital Signs, click to edit/add: Vital Signs - 24 hr 09/28/23 19:07 Temperature 97.6 F Pulse Rate [Pulse Oximeter] 110 H Respiratory Rate 16 Blood Pressure [Ri ght Upper Arm] 132/73 Pulse Oximetry 99 Oxygen Delivery Me thod Room Air Course Vital Signs Vital signs: Initial Vital Signs Temperature 97.6 F 09/28/23 19:07 Temperature Source Temporal Artery Scan 09/28/23 19:07 Pulse Rate 110 H 09/28/23 19:07 Pulse Rhythm Regular 09/28/23 19:07 Respiratory Rate 16 09/28/23 19:07 Blood Pressure 132/73 09/28/23 19:07 Blood Pressure Mean 92 09/28/23 19:07 Blood Pressure Position Sitting 09/28/23 19:07 Pulse Oximetry 99 09/28/23 19:07 Oxygen Delivery Method Room Air 09/28/23 19:07 Vital Signs Temperature 97.6 F 09/28/23 19:07 Pulse Rate 110 H 09/28/23 19:07 Respiratory Rate 16 09/28/23 19:07 Blood Pressure 132/73 09/28/23 19:07 Pulse Oximetry 99 09/28/23 19:07 Oxygen Delivery Method Room Air 09/28/23 19:07 Temperature 97.6 F 09/28/23 19:07 Pulse Rate 110 H 09/28/23 19:07 Respiratory Rate 16 09/28/23 19:07 Blood Pressure 132/73 09/28/23 19:07 Pulse Oximetry 99 09/28/23 19:07 Oxygen Delivery Method Room Air 09/28/23 19:07 Medical Decision Making MDM Narrative Medical decision making narrative: This patient is here because of concern about possible blood clot. Her revised [place] score does score a moderate risk. Ultrasound of her left lower extremity shows no evidence of thrombus. Nasal pharyngeal swab returns negative for COVID, influenza, and RSV. The patient does have anxiety symptoms in his weaned off of Zoloft and BuSpar and awaiting insurance approval to use a newer medication. She states that she has some increased anxiety currently. The patient is okay to return home and follow-up with her primary physician. Lab Data Labs: Lab Results 09/28/23 Range/Units 19:00 SARS-CoV-2 (PCR) Negative SARS-CoV-2 (Negative) Influenza Type A (PCR) Negative PCR FLU A (Negative) Influenza Type B (PCR) Negative PCR FLU B (Negative) RSV (PCR) Negative PCR RSV (Negative) Discharge Plan Discharge Clinical Impression: Feared condition not demonstrated Patient Disposition: Home, Self-Care Condition: Stable Additional Instructions: Continue current plans. Follow up with primary physician for ongoing management. Return if worsening. Prescriptions: No Action buspirone 15 mg tablet 15 mg PO BID sertraline 100 mg tablet 100 mg PO QDAY albuterol sulfate 90 mcg/actuation HFA aerosol inhaler 2 puff inhalation Q4-6H PRN (Reason: shortness of breath or wheezing) Qty: 8.5 0RF lorazepam 1 mg tablet PO prednisone 20 mg tablet 40 mg PO QDAY 5 Days Qty: 10 0RF ferrous sulfate [Iron (ferrous sulfate)] 325 mg (65 mg iron) tablet 325 mg PO QDAY ascorbic acid (vitamin C) 1,000 mg tablet 1 g PO Q6H acetaminophen 500 mg Tablet 1,000 mg PO Q6H PRN (Reason: Pain) Qty: 0 0RF valacyclovir [Valtrex] 500 mg tablet 500 mg PO DAILY [id number] ps-folate 1 PO Follow Up/Referrals: Comfort Platt APRN, [employer] [Primary Care Provider] - Stand Alone Forms: MyHealth Info Instructions
[2023-09-28 19:58] LABS: PCR FLU A Negative PCR FLU A (Negative); PCR FLU B Negative PCR FLU B (Negative); PCR RSV Negative PCR RSV (Negative)
[2023-09-28 20:10] LABS: SARS PCR* Negative SARS-CoV-2 (Negative)
== END 2023-09-28 20:30 | disposition home or self-care (01) ==
PROVIDERS: Emergency Provider Emergency Medicine Emergency Medical Services; PCP Nurse Practitioner Family
DX: Z71.1 Person with feared health complaint in whom no diagnosis is made (principal)
CPT/HCPCS: 87631; 93971; 99283; 99284

== ENCOUNTER 2023-09-29 16:20 | Outpatient (CLI) | payer MEDICAID, SELFPAY | END 2023-09-29 16:21 | disposition home or self-care (01) | LOC: NFLDREF 10-02 07:29 | PROVIDERS: PCP Nurse Practitioner Family; Referring Provider Nurse Practitioner Family; Visit Provider Nurse Practitioner Family | DX: D50.9 Iron deficiency anemia, unspecified (principal); Z15.89 Genetic susceptibility to other disease | CPT/HCPCS: 82607; 83090; 83540; 83550 ==

== ENCOUNTER 2023-10-08 00:46 | Emergency (ER) | payer MEDICAID, SELFPAY ==
[2023-10-08 00:51] VITALS: BP 165/78; PULSE 110; RESP 20; TEMP 37.2; O2SAT 99; BMI 31.3
--- NOTE | 2023-10-08 00:52 | ED_ITS ---
HPI - General Adult General Time Seen by Provider: 00:52 Date Seen: 10/08/23 Chief complaint: Anxiety Stated complaint: anxiety Time Seen by Provider: 10/08/23 00:53 Source: patient, RN notes reviewed and old records reviewed Mode of arrival: ambulatory Limitations: no limitations History of Present Illness HPI narrative: 23-year-old female with history of anxiety who presents today with anxiety symptoms. Reviewed prior emergency department evaluation from September 28 as well as July and May of this year when patient was seen with anxiety symptoms, treated and discharged. Related Data Home Medications Medication Instructions Recorded Confirmed valacyclovir 500 mg tablet 500 mg PO DAILY 05/10/23 10/08/23 (Valtrex) ascorbic acid (vitamin C) 1,000 mg 1 g PO Q6H 06/28/23 10/08/23 tablet ferrous sulfate 325 mg (65 mg 325 mg PO QDAY 06/28/23 10/08/23 iron) tablet (Iron (ferrous sulfate)) buspirone 15 mg tablet 15 mg PO BID 08/30/23 10/08/23 lorazepam 1 mg tablet 1 mg PO DAILY PRN 09/28/23 10/08/23 Previous Rx's Medication Instructions Recorded albuterol sulfate 90 mcg/actuation 2 puff inhalation Q4-6H PRN 08/30/23 aerosol inhaler shortness of breath or wheezing #8.5 grams acetaminophen 500 mg tablet 1,000 mg (2 x 500 mg) PO Q6H PRN 09/15/23 Pain #0 tabs Allergies Allergy/AdvReac Type Severity Reaction Status Date / Time tea tree Allergy Mild Verified 10/08/23 00:54 adhesive Allergy Rash Verified 10/08/23 00:54 lamotrigine [From Lamictal] Allergy Verified 10/08/23 00:54 [facility] Medical History PTSD (post-traumatic stress disorder) ?F43.10 - Post-traumatic stress disorder, unspecified (ICD-10) Palpitations ?R00.2 - Palpitations (ICD-10) Hypertension ?I10 - Essential (primary) hypertension (ICD-10) Eclampsia ?O15.9 - Eclampsia, unspecified as to time period (ICD-10) Anxiety, generalized ?F41.1 - Generalized anxiety disorder (ICD-10) Migraines ?G43.909 - Migraine, unspecified, not intractable, without status migrainosus (ICD-10) Seizure ?R56.9 - Unspecified convulsions (ICD-10) Family History Maternal Grandfather Heart disease Father Depression Anxiety Alcohol dependence Drug dependence Paternal Grandmother Anxiety Depression Mother Anxiety Depression Diabetes Alcohol dependence Drug dependence Maternal Grandmother Preeclampsia Paternal Grandfather Anxiety Depression Alcohol dependence Eczema Social History Narrative: . 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 The patient vapes. No alcohol. No illicit drug use. What is your current living situation?: I presently have a place to live Problems where you live: no known problems In the past 12 months, utilities in danger of being shut off: no In past 12 months, lack of transportation kept you from medical appts, meetings, work, or getting things needed for daily living: no In the past 12 mos, have been you worried that your food would run out before you had money to buy more?: never true In the past 12 mos, the food you bought just didn't last and you didn't have money to buy more?: never true Smoking Status: Current every day smoker What tobacco products do you use: cigarettes Do you use any of these nicotine containing products: None Second hand tobacco smoke exposure: Yes How often do you have a drink containing alcohol: never How often do you have six or more drinks on one occasion: Never AUDIT-C Alcohol total score: 0 Non-prescribed substance use: denies use Caffeine: Yes How often does anyone, including family, friends and others, physically hurt you : never How often does anyone, including family, friends and others, insult or talk down to you: never How often does anyone, including family, friends and others, threaten you with harm: never How often does anyone, including family, friends and others, scream or curse at you: never Little interest or pleasure in doing things: several days Feeling down, depressed, or hopeless: more than half the days service: No Exam Narrative: Exam Narrative: General: Well-developed and well-nourished, tearful, tremulous Head: Atraumatic and normocephalic Eyes: Pupils are equal reactive, extraocular motions intact, conjunctiva clear ENT: External nose and ears are normal, posterior pharynx without erythema or exudate Neck: No midline cervical tenderness, full spontaneous range of motion the neck, trachea midline, no adenopathy Heart: Tachycardic but regular Lungs: Clear to auscultation bilaterally without wheezes or crackles Abdomen: Soft, nontender, nondistended with active bowel sounds Musculoskeletal: No tenderness, deformity, or edema Neurologic: Awake, alert, and oriented x3, no gross focal neurologic deficits, cranial nerves intact as tested Psych: Anxious appearing, tearful Skin: No rashes Const: Vital Signs, click to edit/add: Vital Signs - 24 hr 10/08/23 00:51 10/08/23 02:00 10/08/23 02:37 Temperature 99.0 F 98.5 F Pulse Rate [Right Pulse Oximeter] 110 H 105 H Respiratory Rate 20 20 Blood Pressure [Ri ght Upper Arm] 165/78 H 132/70 Pulse Oximetry 99 98 99 Oxygen Delivery Me thod Room Air Room Air Course Course ED Course: Patient seen and examined, prior records are reviewed. Patient with history of anxiety presents with palpitations, lightheadedness, headache. Appears anxious on exam, tachycardia but otherwise vital is stable. Ativan will be given in anticipate discharge. No chest pain or shortness of breath suggest pulmonary embolism, acute myocardial infarction or acute coronary syndrome, pneumonia. Does report upper respiratory symptoms but says she had a negative COVID and influenza recently. Vital Signs Vital signs: Initial Vital Signs Temperature 99.0 F 10/08/23 00:51 Temperature Source Temporal Artery Scan 10/08/23 00:51 Pulse Rate 110 H 10/08/23 00:51 Respiratory Rate 20 10/08/23 00:51 Blood Pressure 165/78 H 10/08/23 00:51 Blood Pressure Mean 107 H 10/08/23 00:51 Blood Pressure Position Sitting 10/08/23 00:51 Pulse Oximetry 99 10/08/23 00:51 Oxygen Delivery Method Room Air 10/08/23 00:51 Vital Signs Temperature 99.0 F 10/08/23 00:51 Pulse Rate 110 H 10/08/23 00:51 Respiratory Rate 20 10/08/23 00:51 Blood Pressure 165/78 H 10/08/23 00:51 Pulse Oximetry 99 10/08/23 00:51 Oxygen Delivery Method Room Air 10/08/23 00:51 Temperature 98.5 F 10/08/23 02:37 Pulse Rate 105 H 10/08/23 02:37 Respiratory Rate 20 10/08/23 02:37 Blood Pressure 132/70 10/08/23 02:37 Pulse Oximetry 99 10/08/23 02:37 Oxygen Delivery Method Room Air 10/08/23 02:37 Medications Administered Medications: Discontinued Medications Generic Name Dose Route Start Last Admin Trade Name Freq PRN Reason Stop Dose Admin Lorazepam 1 mg 10/08/23 01:30 10/08/23 01:37 Lorazepam 1 Mg Tablet PO 10/08/23 01:31 1 mg ONCE ONE Administration Discharge Plan Discharge Clinical Impression: Acute anxiety Patient Disposition: Home, Self-Care Condition: Improved Instructions: Panic Disorder (ED), Anxiety (ED) Additional Instructions: Take Ativan as needed Follow-up with your primary care provider Activity Level: Activity as Tolerated Discharge Diet: Regular Prescriptions: No Action buspirone 15 mg tablet 15 mg PO BID albuterol sulfate 90 mcg/actuation HFA aerosol inhaler 2 puff inhalation Q4-6H PRN (Reason: shortness of breath or wheezing) Qty: 8.5 0RF lorazepam 1 mg tablet 1 mg PO DAILY PRN ferrous sulfate [Iron (ferrous sulfate)] 325 mg (65 mg iron) tablet 325 mg PO QDAY ascorbic acid (vitamin C) 1,000 mg tablet 1 g PO Q6H acetaminophen 500 mg Tablet 1,000 mg PO Q6H PRN (Reason: Pain) Qty: 0 0RF valacyclovir [Valtrex] 500 mg tablet 500 mg PO DAILY Follow Up/Referrals: Comfort Platt, CRIME VICTIM SPECIALIST, BEHAVIORAL HEALTH CLINICIAN [Primary Care Provider] - Stand Alone Forms: MyHealth Info Instructions
[2023-10-08] MEDS: LORazepam 1 MG TABLET PO (01:37)
[2023-10-08 02:00] VITALS: O2SAT 98
[2023-10-08 02:37] VITALS: BP 132/70; PULSE 105; RESP 20; TEMP 36.9; O2SAT 99
[2023-10-08 03:23] VITALS: BP 132/70; PULSE 105; RESP 20; TEMP 36.9
== END 2023-10-08 03:23 | disposition home or self-care (01) ==
LOC: ED 01:26
PROVIDERS: Emergency Provider Family Medicine; PCP Nurse Practitioner Family
DX: F41.9 Anxiety disorder, unspecified (principal)
CPT/HCPCS: 94761; 99282; 99283; A9270

== ENCOUNTER 2023-10-20 07:03 | Outpatient (CLI) | payer MEDICAID, SELFPAY ==
--- OUTSIDE RECORDS SUMMARY | 2023-10-20 07:07 | XMS_ITS | Encounter Summary ---
Author Name Unknown Organization [facility] Address [address] [place] [address] Phone Care Team Providers Care Assistant Health Educator Name Role Phone Unavailable Primary Care Provider Unavailabl e Encounter Details Date Type Department Care Team Description 07/01/2023 10:00 AM CDT Telemedicine Psych Rehab [address] [id number] Claire Workman, [facility] [address] [place], [place] [id number] Discharge Disposition: Discharged to home or self care (routine discharge) Social History Tobacco Use Types Packs/Day Years Used Date Smoking Tobacco: Unknown Alcohol Use Standard Drinks/Week Comments Not Currently 0 (1 standard drink = 0.6 oz pur e alcohol) PHQ-2 Answer Date Recorded PHQ-2 Subtotal 3 06/02/2023 Sex and Gender Information Value Date Recorded Sex Assigned at Female 05/06/2023 2:19 PM CDT Gender Identity Female 05/06/2023 2:19 PM CDT Sexual Orientation Not on file COVID-19 Exposure Response Date Recorded In the last 10 days, have yo u been in contact with someone who was confirmed or suspected to have Coronavirus/COVID-19? No / Unsure 06/08/2023 9:50 PM CDT documented as of this encounter Miscellaneous Notes * [facility] 07/01/2023 10:00 AM CDT Dept: [facility] Type of Service: Group Therapy Provider/Group Chief Steward/Stewardess: Claire Workman [facility] Date of Service: 07/01/2023 Start Time: 10:00 AM Stop Time: 11:30 AM Number of Group Members Present: 4 Name of Group: [facility] Group Frequency: Weekly Location of Service: Hybrid Group (some participants face to face and some some on video): If this option is selected, telemed statement needs to be added for those who were on video. Telemedicine: [employer] Video Visit: This telemedicine visit is conducted by audio and video technology between thepatient and provider. Informed consent was provided during e-check in and signed by patient. Patient was offered opportunity to ask any questions. Patient's Physical Location: Home Provider's Physical Location: Onsite at [facility] Participants in this Telemedicine Visit other than the patient/provided included: Other group members This visit started at: 10 AM and concluded at: 11:30 AM. Group Description: [facility] group consists of a psychotherapy group with content from [facility] [employer] [facility]. Session Content of Today's Group: Topics addressed in psychotherapy group included coping with anxiety, navigating difficult family dynamics, and self- care when caring for young children. The targeted goal and objective: In development. The patient's response to the intervention (including any plans to change the treatment if deemed ineffective): Merry joined group and introduced herself. She reports feeling, okay, noting someanxiety and depression, on and off, over the past week. She processed frustration related to not being able to access a needed medical procedure, which the group held and validated, and discussed plan to return to her and her 's apartment over the weekend. She reports feeling nervous aboutthis but also ready to challenge herself. Observations of Individual Group Member: MENTAL STATUS EXAMINATION: Appearance: No apparent distress, Casually groomed, and Dressed appropriately for weather Behavior/relationship to examiner/demeanor: Cooperative, Engaged, and Pleasant Motor activity/EPS: Normal Speech rate: Normal Speech volume: Normal Speech articulation: Normal Speech coherence: Normal Speech spontaneity: Normal Mood (subjective report): Neutral Affect (objective appearance): Appropriate/mood-congruent, Anxious/Nervous Thought Process (Associations): Logical/goal-directed Thought process (Rate): Normal Thought content: Normal, No suicidal ideation, No violent ideation, and No homicidal ideation Abnormal Perception: None Sensorium: Alert, Oriented to person, Oriented to place, Oriented to date/time, and Oriented to situation Attention/Concentration: Normal Memory: Immediate recall intact, Short-term memory intact, and Long-term memory intact Computation: Not Assessed Language: Intact Fund of Knowledge/Intelligence: Average Abstraction: Normal Insight: Adequate Judgment: Adequate. Patient denies thoughts of suicide, thoughts of self-harm/self-Injury, and thoughts of harm to others. Discharge Plan/Anticipated Discharge: 09/16 Diagnoses: 1. Bipolar II disorder () 2. Trauma and stressor-related disorder Claire Workman [facility], 07/01/2023 11:49 AM documented in this encounter Plan of Treatment Not on file documented as of this encounter Visit Diagnoses Diagnosis Bipolar II disorder ()- Primary Other bipolar disorders Trauma and stressor-related disorder documented in this encounter Additional Health Concerns Assessment Noted Time PHQ-9 Depression Total Score: 19 023 4:26 PM CDT PHQ-2 Depression Total Score: 3 06/02/20 23 4:26 PM CDT documented as of this encounter
--- OUTSIDE RECORDS SUMMARY | 2023-10-20 07:07 | XMS_ITS | Encounter Summary ---
Author Name Unknown Organization [facility] Address [address] [place] [id number] Phone Care Team Providers Care Floor Grinder Name Role Phone Unavailable Primary Care Provider Unavailabl e Reason for Visit * Prior Authorization (Routine) - Closed Specialty Diagnoses / Procedures Referred By Contac t Referred To Contact Psych Rehab Diagnoses Bipolar II disorder () Trauma and stressor-related disorder Procedures MOTHER BABY ENROLLMENT Jazmine Potter, [facility] [address] [place] [address] [address] Referral ID Status Reason Start Date Expiration Date Visits Re quested Visits Authorized [id number] Closed 05/09/2023 06/24/2023 105 105 Encounter Details Date Type Department Care Team Description 06/23/2023 10:15 AM CDT Psych Rehab [facility] [address] [place] [id number] Karoline Benson MD [address] [facility] [address] [place], [place] [phone] Dh, Mother Baby Discharge Disposition: Discharged to home or self [...] Notes * Group Note - Claire Workman [facility] - 06/23/2023 10:15 AM CDT Dept: [facility] Type of Service: Group Therapy Name of Group: Psychotherapy Process Group Provider/Group Rubber Off: Claire Workman [facility] Date of Service: 06/23/2023 Start Time: 10:15 AM Stop Time: 11:00 AM Number of Group Members Present: 4 Location of Service: Face to Face at [facility] Session Content of Today's Group: At the start of this group, participants were invited to check inby identifying themselves, describing their current emotional status, and identifying issues to address in this group. Topics addressed included coping skills for anxiety and dissociation, systems' influence on mental health and life choices, and feelings of loss of control. The targeted goal and objective: To increase functioning by decreasing mental health symptoms that impact the ability to make safe choices Decrease frequency/intensity/duration of worry The patient's response to the intervention (including any plans to change the treatment if deemed ineffective): Kristina processed a stressful night with many unexpected happenings, but also named coping with this and using skills to regulate her anxiety. She reports her intrusive thoughts have felt,pretty good, and states that she has been able to cope with these. She reflected on which days ofthe week are better and/or worse for her, naming that , Fridays, and Saturdays are best for her and Sundays, Mondays, and Tuesdays are hardest, and noted that these difficult days were aligned with her father's custody days in the past. Observations of Individual Group Member: MENTAL STATUS EXAMINATION: Appearance: No apparent distress, Casually groomed, and Dressed appropriately for weather Behavior/relationship to examiner/demeanor: Cooperative, Engaged, and Pleasant Motor activity/EPS: Normal Speech rate: Normal Speech volume: Normal Speech articulation: Normal Speech coherence: Normal Speech spontaneity: Normal Mood (subjective report): Neutral Affect (objective appearance): Appropriate/mood-congruent Thought Process (Associations): Logical/goal-directed Thought process (Rate): [...] self-harm/self-Injury, and thoughts of harm to others. Diagnoses: 1. Bipolar II disorder () 2. Trauma and stressor-related disorder Claire Workman [facility], 06/23/2023 11:27 AM documented in this encounter Plan of [...]
--- OUTSIDE RECORDS SUMMARY | 2023-10-20 07:07 | XMS_ITS | Clinical Summary ---
Author Name Unknown Organization [facility] Address [address] [place] [address] Phone Care Team Providers Care Head Irrigator Name Role Phone Unavailable Primary Care Provider Unavailabl e Source Comments [facility] is fully rolled out on judo. Last update 03/14/09.[place] Allergies Active Allergy Reactions Criticality Noted Date Comments Lamotrigine Rash 06/21/2023 Medications * Be aware that medications may not be up to date as of this document. Always verify current medications with patient. Medication Sig Dispensed Refills Start Date End Date Status valACYclovir (VALTREX) 500 mg oral TABSIndications:Her pes Simplex Infection Take 2 Tablets (1,000 mg) by mouth once daily for 5 days for HSV outbreaks as needed 0 Active cyanocobalamin (VITAMIN B-12) 1000 mcg oral TABSIndications:Vit aguilar B12 Deficiency Take 1 tablet (1,000 mcg) by mouth daily. 0 Active ibuprofen (MOTRIN;ADVIL) 600 mg oral tabletIndications:P ain Take 1 tablet (600 mg) by mouth every 6 hours if needed for pain 0 Active albuterol (VENTOLIN HFA;PROVENTIL HFA;PROAIR) 108 (90 BASE) mcg/act inhalation inhalerIndications: Asthma Inhale 1-2 puffs into the lungs every 4 hours as needed for wheezing or shortness of breath 0 Active ferrous sulfate 325 mg oral TABSIndications:Iro n Deficiency Take 1 tablet (325 mg) by mouth every Tuesday, Tuesday and Tuesday for Iron Deficiency 30 tablet 0 06/15/2023 Active Vit-Fe Fumarate-FA ( VIT-FE SULFATE-FA) 27-0.8 MG oral TABSIndications:Lac tation Take 1 tablet by mouth at bedtime. Indications: 30 tablet 0 06/15/2023 Active busPIRone (BUSPAR) 15 mg oral tablet Take 1 tablet (15 mg) by mouth 3 times daily. 90 tablet 2 06/20/2023 Active sertraline (ZOLOFT) 50 mg oral tabletIndications:G eneralized Anxiety Disorder,Major Depressive Disorder,Posttrauma tic Stress Disorder Take 1 tablet (50 mg) by mouth daily 30 tablet 0 06/22/2023 Active Active Problems Problem Noted Date Diagnosed Date Obsessive-compulsive disorder 08/19/2023 Panic disorder 08/19/2023 MDD (major depressive disord er), recurrent episode, moderate 08/19/2023 Suicidal ideation 06/09/2023 Asthma 06/08/2023 06/08/2023 Essential hypertension in patient 06/08/2023 Hypertension 06/08/2023 06/08/2023 Iron deficiency anemia 06/08/2023 Anxiety 06/08/2023 06/08/2023 Anxiety disorder, unspecified type 06/08/2023 Bipolar II disorder 05/09/2023 PTSD (post-traumatic stress disorder) 05/09/2023 Eclampsia 05/05/2023 06/08/2023 History of depression 05/05/2023 06/08/2023 Iron deficiency 12/23/2020 06/08/2023 Chronic GERD 01/24/2020 06/08/2023 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 Encounter for screening 02/05/2005 06/08/20 23 Overview: LW Onset: [id number] ; Child and Teen Check Up Needs Resolved Problems Problem Noted Date Diagnosed Date Resolved Date Acute encephalopathy 05/07/2023 06/08/2023 023 Encounters Date Type Department Care Team Description 10/14/2023 10:00 AM ER MEDICAL TECHNICIAN Telemedicine Psych Rehab [facility] [address] [address] Claire Workman, [facility] Karoline Benson MD Discharge Disposition: Discharged to home or self care (routine discharge) 09/30/2023 10:00 AM ER MEDICAL TECHNICIAN Telemedicine Psych Re[facility] [address] [address] Claire Workman, [facility] Karoline Benson MD Discharge Disposition: Discharged to home or self care (routine discharge) 09/23/2023 10:00 AM ER MEDICAL TECHNICIAN Telemedicine Psych Re[facility] [address] [address] Claire Workman, [facility] Mando Estes DO Discharge Disposition: Discharged to home or self care (routine discharge) 09/09/2023 10:00 AM ER MEDICAL TECHNICIAN Telemedicine Psych Rehab [facility] [address] [address] Claire Workman, [facility] Discharge Disposition: Discharged to home or self care (routine discharge) 09/07/2023 [place] [facility] [address] [address] Regina Romero MHW Mother Baby - Mental Health Outreach 08/26/2023 10:00 AM ER MEDICAL TECHNICIAN Telemedicine Psych Rehab [facility] [address] [address] Claire Workman, [facility] Discharge Disposition: Discharged to home or self care (routine discharge) 08/19/2023 1:00 PM ER MEDICAL TECHNICIAN Telemedicine Psych Rehab [facility] [address] [address] Claire Workman, [facility] Mother Baby - Standard Diagnostic Assessment Discharge Disposition: Discharged to home or self care (routine discharge) 08/19/2023 10:00 AM ER MEDICAL TECHNICIAN Telemedicine Psych Rehab [facility] [address] [address] Claire Workman, [facility] Discharge Disposition: Discharged to home or self care (routine discharge) 08/12/2023 10:00 AM CDT Telemedicine Psych Rehab [address] [address] Claire Workman, [facility] Discharge Disposition: Discharged to home or self care (routine discharge) 08/12/2023 Documentation Only [address] [address] Kiana Borges RN Psych Rehab Health Screen 07/22/2023 10:00 AM CDT Telemedicine Psych Rehab [address] [address] Claire Workman, [facility] Discharge Disposition: Discharged to home or self care (routine discharge) from Last 3 Months Social History Tobacco Use Types Packs/Day Years Used Date Smoking Tobacco: Unknown Tobacco Cessation:Counseling Given: Yes Alcohol Use Standard Drinks/Week Comments Not Currently 0 (1 standard drink = 0.6 oz pur e alcohol) PHQ-2 Answer Date Recorded PHQ-2 Subtotal 2 08/22/2023 Sex and Gender Information Value Date Recorded Sex Assigned at Female 05/06/2023 2:19 PM CDT Gender Identity Female 05/06/2023 2:19 PM CDT Sexual Orientation Not on file Last Filed Vital Signs Vital Sign Reading Time Taken Comments Blood Pressure 105/59 06/14/2023 9:28 AM CDT Pulse 82 06/14/2023 9:28 AM CDT Temperature 36.4 ??C (97.5 ??F) 06/14/2023 9:28 AM CD T Respiratory Rate 18 06/14/2023 9:28 AM CDT Oxygen Saturation 99% 06/14/2023 9:28 AM CDT Inhaled Oxygen Concentration - - Weight 88.6 kg (195 lb 6.4 oz) 06/08/2023 8:18 P M CDT Height 170.8 cm (5' 7.24) 06/08/2023 8:18 PM CD T Body Mass Index 30.38 06/08/2023 8:18 PM CDT Plan of Treatment Health Maintenance Due Date Last Done Comments Asthma Action Plan 2002 Asthma Control Test 2002 Dental Oral Exam 2002 Dental Prophylaxis 2002 Dental X-Ray: Bitewings 2002 Well Child Check 2005 Pneumococcal Vaccine: Pediatrics (0 to 5 Years) and At-Risk Patients (6 to 64 Years) (1 of 2 - PCV) 2008 07/16/2004, 07/16/2004, 2002, Additional history exists Periodontal Maintenance 2016 HEALTH MAINTENANCE PROTOCOL 2021 HPV (3 - 3-dose series) 01/13/2022 10/21/2021, 07/01 PREVENTATIVE VISIT 10/21/2022 10/21/2021 INFLUENZA VACCINE 05/10/2023 10/21/2021, , 08/20/2008, Additional history exists Cervical Cancer Screening Age 21-29 2023 COVID-19 Vaccine ( season) 2023 09/30/2021, 2021 Chlamydia & Gonorrhea Screening 11/26/2023 11/26/2022, 09/21/2022, 10/21/2021, Additional history exists Depression Management 02/20/2024 08/22/2023 TD/TDAP ADULTS 03/30/2033 03/30/2023, 12/09, 02/19/2014, Additional history exists HIB Completed 07/16/2004, 2002 Hepatitis B Vaccines Completed 07/08/2022, 07/16/2004, 2002, Additional history exists HIV Screening Completed 11/26/2022, 1212/2019, 07/01/2020, Additional history exists RSV Immunoglobulin Aged Out No longer eligible based on patient's age to complete this topic Goals Goal Patient Goal Type Associated Problems Recent Progress Patient-Stated? Author Mood - MB OTP - To increase functioning by decreasing mental health symptoms that impact the ability to make safe choices Care Plan MB OTP - To increase functioning by decreasing mental health symptoms that impact the ability to make safe choices [facility], [facility] Reflective Functioning - MB OTP - To increase capacity to recognize and act on her child(deann)? s needs Care Plan MB OTP - To increase capacity to recognize and act on her child(deann)? s needs No [facility], [facility] Developmental Growth - MB OTP - Increase overall functioning and stability by working towards emotional safety, developmental growth and self-agency Care Plan MB OTP - Increase overall functioning and stability by working towards emotional safety, developmental growth and self-agency No Claire Workman, [facility] Additional Health Concerns Problem Noted Date Diagnosed Date MB OTP - To increase functio lai by decreasing mental health symptoms that impact the ability to make safe choices 07/22/2023 MB OTP - To increase capacit y to recognize and act on her child(deann)? s needs 07/22/2023 MB OTP - Increase overall fu nctioning and stability by working towards emotional safety, developmental growth and self-agency 07/22/2023 Advance Directives For more information, please contact: [phone] Latest Code Status on File Code Status Date Activated Date Inactivated Comments Full Code 06/08/2023 10:12 PM 06/15/2023 1:52 PM Question Answer Comments Does the Patient have prefer ences regarding life sustaining measures (these options only apply when the patient has a pulse): No Discussed Code Status With Whom? Not discussed
--- OUTSIDE RECORDS SUMMARY | 2023-10-20 07:07 | XMS_ITS | Encounter Summary ---
Author Name Unknown Organization [facility] Address [address] [place] [address] Phone Care Team Providers Care R&D Engineer Name Role Phone Unavailable Primary Care Provider Unavailabl e Reason for Visit * Prior Authorization (Routine) - Closed Specialty Diagnoses / Procedures Referred By Contac t Referred To Contact Psych Rehab Diagnoses Bipolar II disorder () Trauma and stressor-related disorder Procedures MOTHER BABY ENROLLMENT Jazmine Potter, [facility] [address] [place] [id number] [address] Referral ID Status Reason Start Date Expiration Date Visits Re quested Visits Authorized [id number] Closed 05/09/2023 06/24/2023 105 105 Encounter Details Date Type Department Care Team Description 06/23/2023 9:30 AM CDT [facility] [address] [place] [id number] Karoline Benson MD [address] [facility] [address] [place], [place] [phone] Dh, Mother Baby Discharge Disposition: Discharged to [...] Note - Claire Workman LPCC - 06/23/2023 9:30 AM CDT Dept: [facility] Type of Service: Group Therapy Name of Group: Psychoeducation/Skills Group Provider/Group Memorial Designer: Claire Workman LPCC Date of Service: 06/23/2023 Start Time: 9:30 AM Stop Time: 10:15 AM Number of Group Members Present: 4 Location of Service: Face to Face at [facility] Session Content (Intervention): Welcomed any new patients to the group and reviewed group guidelines. Asked patients to participate in a check in identifying their focus for the day, how their evening was, and any baby concerns or triumphs, and any requests of the group. Offered clients time to identify issues they would like to bring up in psychotherapy group. Encouraged group interaction. Skills taught today included: Understanding Shame and Guilt and Self-Compassion The patient???s response to the intervention (including observations of the patient and their readiness to learn): Patient presented as engaged and active. The patient did demonstrate readiness to learn both verbally and non-verbally. The patient did demonstrate understanding of the material as evidenced by sharing own experience, participating in the group discussion, and non-verbals (i.e., nodding head in agreement) . Barriers to learning: No Other observations: N/A Claire Workman LPCC, 06/23/2023 11:26 AM documented in this encounter Plan of [...]
--- OUTSIDE RECORDS SUMMARY | 2023-10-20 07:07 | XMS_ITS | Encounter Summary ---
Author Name Unknown Organization [facility] Address [address] [place] [address] Phone Care Team Providers Care Correctional Officer Chief Name Role Phone Unavailable Primary Care Provider Unavailabl e Encounter Details Date Type Department Care Team Description 10/14/2023 10:00 AM BOARDER MACHINE [facility] [address] [place], [place] [phone] Claire Workman, [facility] [address] [facility] [place], [place] [id number] Karoline Benson MD [address] [facility] [address] [place], [place] [address] Discharge Disposition: Discharged to home or self [...] PM CDT Sexual Orientation Not on file documented as of this encounter Plan of Treatment Not on file documented as of this encounter Goals Goal Patient Goal Type Associated Problems Recent Progress Patient-Stated? Author Mood - MB OTP - To increase functioning by decreasing mental health symptoms that impact the ability to make safe choices Care Plan MB OTP - To increase functioning by decreasing mental health symptoms that impact the ability to make safe choices No Claire Workman LPCC Reflective Functioning - MB OTP - To increase capacity to recognize and act on her child(deann)? s needs Care Plan MB OTP - To increase capacity to recognize and act on her child(deann)? s needs No Clarie Workman LPCC Developmental Growth - MB OTP - Increase overall functioning and stability by working towards emotional safety, developmental growth and self-agency Care Plan MB OTP - Increase overall functioning and stability by working towards emotional safety, developmental growth and self-agency No Claire Workman LPCC documented as of this encounter Visit Diagnoses Not on filedocumented in this encounter Additional Health Concerns Problem Noted Date Diagnosed [...] emotional safety, developmental growth and self-agency 07/22/2023 Assessment Noted Time PHQ-9 Depression Total Score: 7 08/22/20 23 11:05 AM BOARDER MACHINE PHQ-2 Depression Total Score: 2 08/22/20 23 11:05 AM BOARDER MACHINE documented as of this encounter
--- OUTSIDE RECORDS SUMMARY | 2023-10-20 07:07 | XMS_ITS | Encounter Summary ---
Author Name Unknown Organization [facility] Address [address] [place] [address] Phone Care Team Providers Care Weather Analyst Name Role Phone Unavailable Primary Care Provider Unavailabl e Encounter Details Date Type Department Care Team Description 08/12/2023 10:00 AM CDT Telemedicine Psych Rehab [facility] [address] [place] [id number] Claire Workman LPCC [address] [place], [place] [phone] Discharge Disposition: Discharged to home or self [...] on file documented as of this encounter Miscellaneous Notes * Group Note - Claire Workman LPCC - 08/12/2023 10:00 AM CDT Dept: [facility] Type of Service: Group Therapy Provider/Group Pipe Fitter [employer] Spr[employer]: Claire Workman LPCC Date of Service: 08/12/2023 Start Time: 10:00 AM Stop Time: 11:30 AM Number of Group Members Present: 5 Name of Group: Tuesday Connections Group Frequency: Weekly Location of Service: Telemedicine: This group telemedicine visit is conducted by audio and video technology between the patient and providers. Informed consent was provided during e-check in and signed by the patient. Patient was offered opportunity to ask questions. Patient's Physical Location: Home Provider's Physical Location: [facility]site [facility] Participants in this Telemedicine Visit other than the patient/provider and other group attendees included: N/A This visit started at: 10 AM and concluded at: 11:30 AM. Total time spent on this visit, including [id number] interaction, review of medical record, and documentation: 100 minutes. Patient consents to this service: Yes Group Description: Tuesday Connections group consists of a psychotherapy group with content from [place] [employer]. Session Content of Today's Group: Topics addressed in psychotherapy group included boundaries as well as shame and guilt. The targeted goal and objective: To increase functioning by decreasing mental health symptoms that impact the ability to make safe choices Improve understanding of mental health, symptoms and coping strategies in order to alleviate symptoms and improve functioning and quality of life The patient's response to the intervention (including any plans to change the treatment if deemed ineffective): Kristina processed setting boundaries with family members and difficulties present in navigating complex relationships. She names that at home, her current experience is, a lot of chaos, and notes an increase in intrusive thoughts related to the idea of going crazy. She received validation from other group members related to this and named she is working on this with her individual therapist, which has been helpful. Observations of Individual Group Member: MENTAL STATUS EXAMINATION: Appearance: No apparent distress, Casually groomed, and Dressed appropriately for weather Behavior/relationship to examiner/demeanor: Cooperative, Engaged, and Pleasant Motor activity/EPS: Normal Speech rate: Normal Speech volume: Normal Speech articulation: Normal Speech coherence: Normal Speech spontaneity: Normal Mood (subjective report): Neutral, Depressed, Elevated, Euphoric, Anxious, Angry, Irritable, and Stable Affect (objective appearance): Appropriate/mood-congruent, Inappropriate, Euthymic, Bright, Subdued, Dysphoric, Tearful, Reactive/Full range, Labile, Restricted, Blunted/Flat, and Anxious/Nervous Thought Process (Associations): Logical/goal-directed Thought process [...] of harm to others. Discharge Plan/Anticipated Discharge: 09/23 Diagnoses: 1. Bipolar II disorder () 2. Trauma and stressor-related disorder Claire Workman LPCC, 08/12/2023 12:00 PM documented in this encounter Plan of Treatment [...] on her child(deann)? s needs No Claire Workman LPCC Developmental Growth - MB OTP [...] documented in this encounter Additional Health Concerns Problem [...]
--- OUTSIDE RECORDS SUMMARY | 2023-10-20 07:07 | XMS_ITS | Encounter Summary ---
Author Name Unknown Organization [facility] Address [address] [place] [address] Phone Care Team Providers Care Heavy Equipment Engine Mechanic Name Role Phone Unavailable Primary Care Provider Unavailabl e Reason for Visit * Reason Onset Date Comments Mother Baby - Mental Health Outreach 09/07/2023 Encounter Details Date Type Department Care Team Description 09/07/2023 Telephone [facility] [address] [place] [address] Regina Romero MHW [address] [place] [address] Mother Baby - Mental Health Outreach Social History Tobacco Use Types Packs/Day Years [...] as of this encounter Miscellaneous Notes * Telephone Encounter - Regina Romero MHW - 09/07/2023 12:39 PM CST Left a vm regarding starting POP and needing to know if they can start next week. Stated we needed confirmation by 12p 09/08 Lor Romero Mental Health Worker Mother-Baby Program TRICAL ENGINEER documented in this encounter Plan of Treatment [...] the ability to make safe choices Claire Vazquez LPCC Reflective Functioning - MB OTP - [...] towards emotional safety, developmental growth and self-agency Claire Vazquez LPCC documented as of this encounter Visit [...] Total Score: 7 08/22/20 23 11:05 AM ELECTRICAL ENGINEER PHQ-2 Depression Total Score: 2 08/22/20 23 11:05 AM ELECTRICAL ENGINEER documented as of this encounter
--- OUTSIDE RECORDS SUMMARY | 2023-10-20 07:07 | XMS_ITS | Encounter Summary ---
Author Name Unknown Organization [facility] Address [address] [place] [address] Phone Care Team Providers Care Center Mgr Name Role Phone Unavailable Primary Care Provider Unavailabl e Encounter Details Date Type Department Care Team Description 08/19/2023 10:00 AM PRINT GRAPHIC DESIGNER Telemedicine Psych Rehab [facility] [address] [place] [phone] Claire Workman LPCC [address] [place], [place] [address] Discharge Disposition: Discharged to home or self [...] Group Note - Claire Workman LPCC - 08/19/2023 10:00 AM CST Dept: [facility] Type of Service: Group Therapy Provider/Group Tetryl Wringer Operator: Claire Workman LPCC Date of Service: 08/19/2023 Start Time: 10:00 AM Stop Time: 11:30 AM Number of Group Members Present: 6 Name of Group: Tuesday Connections Group Frequency: Weekly Location of Service: Telemedicine: This group telemedicine visit is conducted by audio and video technology between the patient and providers. Informed consent was provided during e-check in and signed by the patient. Patient was offered opportunity to ask questions. Patient's Physical Location: Home Provider's Physical Location: Onsite at [facility] Participants in this Telemedicine Visit other than the patient/provider and other group attendees included: N/A This visit started at: 10 AM and concluded at: 11:30 AM. Total time spent on this visit, including [id number] interaction, review of medical record, and documentation: 100 minutes. Patient consents to this service: Yes Group Description: Tuesday Connections group consists of a psychotherapy group with content from [place] [employer]. Session Content of Today's Group: Topics addressed in psychotherapy group included coping with anxiety and trauma reminders, communication with partners/spouses and self-advocacy, and sleep loss. The targeted goal and objective: To increase functioning by decreasing mental health symptoms that impact the ability to make safe choices Improve understanding of mental health, symptoms and coping strategies in order to alleviate symptoms and improve functioning and quality of life The patient's response to the intervention (including any plans to change the treatment if deemed ineffective): Kristina reports that her family had a cold/flu virus this week and processed how this experience triggered her anxiety and caused trauma reminders of her experience with eclampsia immediately after her daughter's . She reports increased anxiety, intrusive thoughts, and ruminative thought patterns. She reflected on ways that she has been able to disrupt these patterns and states that she has noticed symptoms decrease as her physical symptoms have lessened. Observations of Individual Group Member: MENTAL STATUS EXAMINATION: Appearance: No apparent distress, Casually groomed, and Dressed appropriately for weather Behavior/relationship to examiner/demeanor: Cooperative, Engaged, and Pleasant Motor activity/EPS: Normal Speech rate: Normal Speech volume: Normal Speech articulation: Normal Speech coherence: Normal Speech spontaneity: Normal Mood (subjective report): Anxious Affect (objective appearance): Appropriate/mood-congruent, Anxious/Nervous Thought Process [...] of harm to others. Discharge Plan/Anticipated Discharge: Discharge 08/26 to begin POP program Diagnoses: 1. Bipolar II disorder () 2. Trauma and stressor-related disorder Claire Workman LPCC, 08/19/2023 2:14 PM T GRAPHIC DESIGNER documented in this encounter Plan of Treatment [...] Noted Time PHQ-9 Depression Total Score: 19 06/02/2 023 4:26 PM CDT PHQ-2 Depression Total Score: 3 06/02/20 23 4:26 PM CDT documented as of this encounter
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
--- OUTSIDE RECORDS SUMMARY | 2023-10-20 07:07 | XMS_ITS | Encounter Summary ---
Author Name Unknown Organization [facility] Address [address] [facility] [place] [address] Phone Care Team Providers Care Chalker Soles Name Role Phone Unavailable Primary Care Provider Unavailabl e Encounter Details Date Type Department Care Team Description 07/22/2023 Plan of Care Documentation [facility] Family [facility] [address] [place], [place] [phone] Social History Tobacco Use Types Packs/Day Years [...] safety, developmental growth and self-agency Claire Vazquez, LPCC documented as of this encounter Visit Diagnoses Not on filedocumented in this encounter Additional Health Concerns Problem Noted Date Diagnosed Date NEIL OTP - To increase functio lai by [...]
--- OUTSIDE RECORDS SUMMARY | 2023-10-20 07:07 | XMS_ITS | Encounter Summary ---
Author Name Unknown Organization [facility] Address [address] [place] [id number] Phone Care Team Providers Care Flavor Tank Tender Name Role Phone Unavailable Primary Care Provider Unavailabl e Encounter Details Date Type Department Care Team Description 09/23/2023 10:00 AM BROOD STATION MANAGER Telemedicine Psych Rehab [address] [id number] Claire Workman, [address] [address] Mando Estes DO HENN [address] [id number] Discharge Disposition: Discharged to home or self [...] Notes * Group Note - Claire Workman [facility] - 09/23/2023 10:00 AM CST Dept: [facility] Type of Service: Group Therapy Provider/Group Import Export Agent: Claire Workman [facility] Date of Service: 09/23/2023 Start Time: 10:00 AM Stop Time: 11:30 AM Number of Group Members Present: 3 Name of Group: Tuesday Ariane Group Frequency: Weekly Location of Service: Telemedicine: This group telemedicine visit is conducted by audio and video technology between the patient and providers. Informed consent was provided during e-check in and signed by the patient. Patient was offered opportunity to ask questions. Patient's Physical Location: Home Provider's Physical Location: Onsite at [facility] Participants in this Telemedicine Visit other than the patient/provider and other group attendees included: N/A This visit started at: 10 AM and concluded at: 11:30 AM. Total time spent on this visit, including dvrojfff-nn-twiptry interaction, review of medical record, and documentation: 100 minutes. Patient consents to this service: Yes Group Description: Tuesday Connections group consists of a psychotherapy group with content from [place] [facility] [employer]. Session Content of Today's Group: Topics addressed in psychotherapy group included boundaries, in/out of control, and coping skills. The targeted goal and objective: To increase functioning by decreasing mental health symptoms that impact the ability to make safe choices Improve understanding of mental health, symptoms and coping strategies in order to alleviate symptoms and improve functioning and quality of life The patient's response to the intervention (including any plans to change the treatment if deemed ineffective): Kristina reflected on her outpatient surgical procedure a week ago, naming increased anxiety and panic since the procedure. She states she was given an Ativan prn from an emergency room doctor but has not needed to use this so far. She notes that sleep has been difficult for her and she feels this has further complicated her recovery. She reports she is making medication changes after agenetic test suggested these changes and has recently noticed she is experiencing new tics, although states this has happened in the past when weaning off of SSRIs. Observations of Individual Group Member: MENTAL STATUS EXAMINATION: Appearance: No apparent distress, Casually groomed, and Dressed appropriately for weather Behavior/relationship to examiner/demeanor: Cooperative, Engaged, and Pleasant Motor activity/EPS: Normal Speech rate: Normal Speech volume: Normal Speech articulation: Normal Speech coherence: Normal Speech spontaneity: Normal Mood (subjective report): Anxious Affect (objective appearance): Anxious/Nervous Thought Process (Associations): Logical/goal-directed Thought process [...] of harm to others. Discharge Plan/Anticipated Discharge: 10/14 Diagnoses: 1. PTSD (post-traumatic stress disorder) 2. Mixed obsessional thoughts and acts Claire Workman LPCC, 09/23/2023 1:01 PM D STATION MANAGER documented in this encounter Plan of Treatment [...] (post-traumatic stress disorder)- Primary Posttraumatic stress disorder Mixed obsessional thoughts and acts documented in [...] Total Score: 7 08/22/20 23 11:05 AM BROOD STATION MANAGER PHQ-2 Depression Total Score: 2 08/22/20 11:05 AM BROOD STATION MANAGER documented as of this encounter
--- OUTSIDE RECORDS SUMMARY | 2023-10-20 07:07 | XMS_ITS | Encounter Summary ---
Author Name Unknown Organization [facility] Address [address] [place] [phone] Phone Care Team Providers Care Procurement Services Manager Name Role Phone Unavailable Primary Care Provider Unavailabl e Reason for Visit * Prior Authorization (Routine) - Closed Specialty Diagnoses / Procedures Referred By Contac t Referred To Contact Psych Rehab Diagnoses Bipolar II disorder () Trauma and stressor-related disorder Procedures MOTHER BABY ENROLLMENT Jazmine Potter, [facility] [address] [place] [address] [address] Referral ID Status Reason Start Date Expiration Date Visits Re quested Visits Authorized [id number] Closed 05/09/2023 06/24/2023 105 105 Encounter Details Date Type Department Care Team Description 06/23/2023 1:45 PM CDT [facility] [address] [place] [phone] Karoline Benson MD [address] [facility] [address] [place], [place] [phone] Dh, Mother Baby Discharge Disposition: Discharged to [...] Note - Claire Workman LPCC - 06/23/2023 1:45 PM CDT Dept: [facility] Type of Service: Group Therapy Name of Group: Psychoeducation/Skills Group Provider/Group Hydraulic Design Engineer: Claire Workman LPCC Date of Service: 06/23/2023 Start Time: 1:45 PM Stop Time: 2:30 PM Number of Group Members Present: 5 Location of Service: Face to Face at [facility] Session Content (Intervention): The purpose of this group was to provide education through information-sharing and facilitated group discussion. Handouts were provided and covered in detail. Skills taught today included: Other: Weekend planning and graduation The patient???s response to the intervention (including [...] Other observations: N/A Claire Workman LPCC, 06/23/2023 3:13 PM documented in this encounter Plan of [...]
--- OUTSIDE RECORDS SUMMARY | 2023-10-20 07:07 | XMS_ITS ---
Care Plan Created on: October 20, 2023 Merry Rooney : 2000 Sex: Female Author Name Unknown Organization [facility] Address [address] [place] [phone] Phone Care Team Providers Care Ice Seller Name Role Phone Unavailable Primary Care Provider Unavailabl e Active Problems Problem Noted Date Diagnosed Date [...] screening 02/05/2005 06/08/20 23 Overview: LW Onset: [id number] ; Child and Teen Check Up Needs Resolved Problems Problem Noted Date Diagnosed Date Resolved Date Acute encephalopathy 05/07/2023 06/08/2023 023 Additional Health Concerns Problem Noted Date Diagnosed [...] emotional safety, developmental growth and self-agency 07/22/2023 Goals Goal Patient Goal Type Associated Problems Recent Progress Patient-Stated? Author Mood - MB OTP - To increase functioning by decreasing mental health symptoms that impact the ability to make safe choices Care Plan MB OTP - To increase functioning by decreasing mental health symptoms that impact the ability to make safe choices No Claire Workman, [facility] Reflective Functioning - MB OTP - To increase capacity to recognize and act on her child(deann)? s needs Care Plan MB OTP - To increase capacity to recognize and act on her child(deann)? s needs No Claire Workman, [facility] Developmental Growth - MB OTP - Increase overall functioning and stability by working towards emotional safety, developmental growth and self-agency Care Plan MB OTP - Increase overall functioning and stability by working towards emotional safety, developmental growth and self-agency No Claire Workman, [facility] Interventions Intervention Entry Date Outcome (Patient) Build relational capacity by identifying sources of emotional support and asking for/accepting emotional support; identify and ask for support in 4/10 opportunities?? - MB OTP 07/22/2023 Note:07/15: I asked [] to hold the baby and help with the baby more. (Patient) Increase understanding of the impact of own trauma/mental health on baby and/or parent-child relationship, identify impact of trauma on relationship in 4/10 situations?? - MB OTP 07/22/2023 Note:07/15: I have some guilt over not feeling bonded to baby after everything that's happened. (Patient) Improve understanding of mental health, symptoms and coping strategies in order to alleviate symptoms and improve functioning and quality of life and will be able to use coping skills 6/10 times in times of stress?? - MB OTP 07/22/2023 Note:07/15: The anxiety is still there, especially when I'm by myself all day. Related Goals and Interventions Goal Associated Intervent ions Mood - MB OTP - To increase functioning by decreasing mental health symptoms that impact the ability to make safe choices (Patient) Improve understanding of mental health, symptoms and coping strategies in order to alleviate symptoms and improve functioning and quality of life and will be able to use coping skills 6/10 times in times of stress?? - MB OTP Reflective Functioning - MB OTP - To increase capacity to recognize and act on her child(deann)? s needs (Patient) Increase understanding of the impact of own trauma/mental health on baby and/or parent-child relationship, identify impact of trauma on relationship in 4/10 situations?? - MB OTP Developmental Growth - MB OT P - Increase overall functioning and stability by working towards emotional safety, developmental growth and self-agency (Patient) Build relational capacity by identifying sources of emotional support and asking for/accepting emotional support; identify and ask for support in 4/10 opportunities?? - MB OTP
--- OUTSIDE RECORDS SUMMARY | 2023-10-20 07:07 | XMS_ITS | Encounter Summary ---
Author Name Unknown Organization [facility] Address [address] [facility] [place] [address] Phone Care Team Providers Care Cigarette Book Maker Name Role Phone Unavailable Primary Care Provider Unavailabl e Reason for Visit * Reason Onset Date Comments Mother Baby - Mental Health Outreach 07/11/2023 Encounter Details Date Type Department Care Team Description 07/11/2023 Telephone [facility] Family [facility] [address] [place], [place] [phone] Claire Workman LPCC [address] [place], [place] [phone] Mother Baby - Mental Health Outreach Social [...] encounter Miscellaneous Notes * Telephone Encounter - Claire Workman LPCC - 07/11/2023 3:16 PM CDT Attempted to call pt to check in after missed Tuesday group; pt did not answer. Plan: LVM asking for call back to check in. documented in this encounter Plan of Treatment Not on file documented as of this encounter Visit Diagnoses Not on filedocumented in this encounter Additional Health Concerns Assessment Noted Time PHQ-9 Depression Total Score: 19 023 4:26 PM CDT PHQ-2 Depression Total Score: 3 06/02/20 23 4:26 PM CDT documented as of this encounter
--- OUTSIDE RECORDS SUMMARY | 2023-10-20 07:07 | XMS_ITS | Encounter Summary ---
Author Name Unknown Organization [facility] Address 1 [place] [address] Phone Care Team Providers Care Clinical Implementation Specialist Name Role Phone Unavailable Primary Care Provider Unavailabl e Encounter Details Date Type Department Care Team Description 09/09/2023 10:00 AM PAPER AND PULP MILL OPERATOR Telemedicine Psych Rehab [facility] [address] [place] [phone] Claire Workman LPCC [address] [place], [place] [phone] Discharge Disposition: Discharged to home or self [...] Group Note - Claire Workman LPCC - 09/09/2023 10:00 AM CST Dept: [facility] Type of Service: Group Therapy Provider/Group Sawmilling Operator: Claire Workman LPCC Date of Service: 09/09/2023 Start Time: 10:00 AM Stop Time: 11:30 AM Number of Group Members Present: 4 Name of Group: Tuesday Connections group Frequency: Weekly Location of Service: Telemedicine: This group telemedicine visit is conducted by audio and video technology between the patient and providers. Informed consent was provided during e-check in and signed by the patient. Patient was offered opportunity to ask questions. Patient's Physical Location: Home Provider's Physical Location: Onsite at [facility] Participants in this Telemedicine Visit other than the patient/provider and other group attendees included: N/A This visit started at: 10 AM and concluded at: 11:30 AM. Total time spent on this visit, including aegpsdxb-zq-raotkge interaction, review of medical record, and documentation: 100 minutes. Patient consents to this service: Yes Group Description: Tuesday Connections group consists of a psychotherapy group with content from [place] [facility] [employer]. Session Content of Today's Group: Topics addressed in psychotherapy group included boundaries, stressors and trauma reminders, and interpersonal dynamics. The targeted goal and objective: To increase functioning by decreasing mental health symptoms that impact the ability to make safe choices Improve understanding of mental health, symptoms and coping strategies in order to alleviate symptoms and improve functioning and quality of life The patient's response to the intervention (including any plans to change the treatment if deemed ineffective): Kristina reports her anxiety has increased over the past week and a half. She notes this may be in anticipation of scheduled surgical procedure next week, and processed the trauma triggers around medical procedures and spending time in the hospital. She reports it feels difficult to keep herself grounded. She and the group discussed ways to cope, particularly in regards to the days before her procedure. Observations of Individual Group Member: MENTAL STATUS [...] others. Discharge Plan/Anticipated Discharge: 09/23 Diagnoses: 1. PTSD (post-traumatic stress disorder) 2. Mixed obsessional thoughts and acts 3. MDD (major depressive disorder), recurrent episode, moderate () Claire Workman LPCC, 09/09/2023 11:54 AM R AND PULP MILL OPERATOR documented in this encounter Plan of Treatment [...] stress disorder Mixed obsessional thoughts and acts MDD (major depressive disorder), recurrent episode, moderate () Major depressive disorder, recurrent episode, moderate documented in this encounter Additional Health Concerns [...] Total Score: 7 08/22/20 23 11:05 AM PAPER AND PULP MILL OPERATOR PHQ-2 Depression Total Score: 2 08/22/20 11:05 AM PAPER AND PULP MILL OPERATOR documented as of this encounter
--- OUTSIDE RECORDS SUMMARY | 2023-10-20 07:07 | XMS_ITS | Encounter Summary ---
Author Name Unknown Organization [facility] Address [address] [place] [address] Phone Care Team Providers Care High School Band Teacher Name Role Phone Unavailable Primary Care Provider Unavailabl e Reason for Visit * Reason Comments Psych Rehab Health Screen Encounter Details Date Type Department Care Team Description 08/12/2023 Documentation Only [facility] [address] [place], [place] [phone] Kiana Borges, RN [facility] [address] [place] [address] Psych Rehab Health Screen Social History Tobacco Use Types Packs/Day Years [...] as of this encounter Progress Notes * Kiana Borges RN - 08/12/2023 4:52 PM CDT Health Screen Mother Baby Treatment Program A Health Screen form was completed by the patient. Information provided by the patient was reviewedand updated during a phone meeting. The problem list will be updated as needed and the procedure for screening, assessment, and triage will be followed. See plan, below. Primary Care Provider: [facility] Date of last PCP visit: A month ago Primary Care visit indicated: No NOTE: If last medical history/physical was completed >1 year ago, and/or there is a new/urgent health concern, refer to Primary Care. Dentist: [facility] Date of last dental visit: 06/2023 Dental visit indicated: Yes. Pt will make own appt when ready. NOTE: If last dental visit was completed >1 year ago, and/or there is a new/urgent concern, refer to Dentist. Urgent health concerns identified by patient: No Allergies: Reviewed with Pt. Allergies Allergen Reactions Lamotrigine Rash Past Surgical History:Reviewed with Pt. No past surgical history on file. Past Medical History:Reviewed with Pt. No past medical history on file. Do you have a current problem with any of the following? Yes No Yes No Diabetes X Hearing X Seizure X Sight: R eye still blurry, but hasn't gotten any worse. X High Blood Pressure:History of preeclampsia/eclampsia. X Head Injury X Arthritis X Memory X HIV/AIDS X Skin X Hepatitis X Sleep X TB X Urinary X Do you smoke? Vaping, not interested in quitting X Stomach/Bowel X Do you use Over the Counter Medications and/or Herbal Remedies? Tylenol X Asthma: Uses PRN albuterol X Do you have a child that you are currently breast feeding or formula feeding? 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 X If you answered yes to the question above, any concerns with feeding or accessing formula? X If male: impotence, prostate, STD's, sexual issues N/A Describe where your child or children sleep at naptime and at bedtime? Baby sleeps in bassinet and toddler in a toddler bed Current reproductive plans: (Future plans on conceiving, natural family planning, condoms, control ect???.) Pt getting tubal on 09/15/23 X The patient endorsed the following issues related to diet: Yes No 1. I don't always have enough money to buy food. X 2. I have trouble with my teeth, mouth, or throat that prevent me from eating. X 3. In the last month, I have overeaten and had to make myself throw up. X 4. In the last month, I have taken laxatives or water pills to help control my weight. X 5. I have been eating poorly due to a reduced appetite for the past 7 days or more. X 6. In the last three months I have lost or gained 10 pounds without trying. X Have your family experienced financial changes recently? If yes, answer the three following questions. Difficult to pay for director of child welfare services? X 2. Difficult to pay your bills? X 3. Difficult to buy food? X Pain Screening and Assessment Denied pain. Healthcare Directive on File: No Healthcare Directive information provided to patient: No Psychiatric Advanced Directive on File: No Psychiatric Advanced Directive information provided to patient: No Plan for follow up: Pt is up to date for physical and dental exam. Pt denied any urgent health concerns at this time. Pt denied financial concerns or concerns with access to food. Patient will attend wellness groups as part of current programming. Patient educated to contact RN or treatment team while in the program related to any concerns with medications, symptoms, or physical health concerns. documented in this encounter Plan of Treatment [...]
--- OUTSIDE RECORDS SUMMARY | 2023-10-20 07:07 | XMS_ITS | Encounter Summary ---
Author Name Unknown Organization [facility] Address [address] [place] [address] Phone Care Team Providers Care Service Now Developer Name Role Phone Unavailable Primary Care Provider Unavailabl e Encounter Details Date Type Department Care Team Description 08/26/2023 10:00 AM OPTICAL GLASS SAWYER Telemedicine Psych Rehab [facility] [address] [place] [phone] Claire Workman LPCC [address] [place], [place] [phone] Discharge Disposition: Discharged to home or self [...] Group Note - Claire Workman LPCC - 08/26/2023 10:00 AM CST Dept: [facility] Type of Service: Group Therapy Provider/Group Drilling Engineer: Claire Workman LPCC Date of Service: 08/26/2023 Start Time: 10:00 AM Stop Time: 11:30 AM Number of Group Members Present: 5 Name of Group: Tuesday Connections Frequency: Weekly Location of Service: Telemedicine: This group telemedicine visit is conducted by audio and video technology between the patient and providers. Informed consent was provided during e-check in and signed by the patient. Patient was offered opportunity to ask questions. Patient's Physical Location: Home Provider's Physical Location: Onsite at [facility]ili[facility] Participants in this Telemedicine Visit other than the patient/provider and other group attendees included: N/A This visit started at: 10 AM and concluded at: 11:30 AM. Total time spent on this visit, including wfqtndgt-cx-xuqodhe interaction, review of medical record, and documentation: 100 minutes. Patient consents to this service: Yes Group Description: Tuesday Connections group consists of a psychotherapy group with content from [place] [facility] [employer]. Session Content of Today's Group: Topics addressed in psychotherapy group included coping with anxiety triggers, effect of sleep deprivation on mood and daily functioning, and coping with upcoming holidays. The targeted goal and objective: To increase functioning by decreasing mental health symptoms that impact the ability to make safe choices Improve understanding of mental health, symptoms and coping strategies in order to alleviate symptoms and improve functioning and quality of life The patient's response to the intervention (including any plans to change the treatment if deemed ineffective): Kristina reports her mood has been, up and down, noting recent stressor of finding moldin her apartment as well as another illness. She connected illness to PTSD symptom triggers. She reports increased obsessions and intrusive thoughts. She processed coping skills, noting that art has felt helpful, as well as butterfly hugs/tapping as a form of vagus nerve stimulation. Observations of Individual Group Member: MENTAL STATUS [...] of harm to others. Discharge Plan/Anticipated Discharge: 09/09, then transfer to [facility] Diagnoses: 1. PTSD (post-traumatic stress disorder) 2. Mixed obsessional thoughts and acts Claire Workman LPCC, 08/26/2023 1:21 PM CAL GLASS SAWYER documented in this encounter Plan of Treatment [...] Total Score: 7 08/22/20 23 11:05 AM OPTICAL GLASS SAWYER PHQ-2 Depression Total Score: 2 08/22/20 23 11:05 AM OPTICAL GLASS SAWYER documented as of this encounter
--- OUTSIDE RECORDS SUMMARY | 2023-10-20 07:07 | XMS_ITS | Encounter Summary ---
Author Name Unknown Organization [facility] Address [address] [place] [address] Phone Care Team Providers Care Inspector Watch Parts Name Role Phone Unavailable Primary Care Provider Unavailabl e Encounter Details Date Type Department Care Team Description 09/30/2023 10:00 AM PLANT BREEDER Telemedicine Psych Rehab [facility] [address] [place] [address] Claire Workman, [facility] [address] [place], [place] [phone] Karoline Benson MD [address] [facility] [address] [place], [place] [phone] Discharge Disposition: Discharged to home or self [...] Group Note - Claire Workman LPCC - 09/30/2023 10:00 AM CST Dept: [facility] Type of Service: Group Therapy Provider/Group Prefabricator: Claire Workman [facility] Date of Service: 09/30/2023 Start Time: 10:00 AM Stop Time: 11:30 AM Number of Group Members Present: 6 Name of Group: Tuesday Ariane Group Frequency: Weekly Location of Service: Telemedicine: This group telemedicine visit is conducted by audio and video technology between the patient and providers. Informed consent was provided during e-check in and signed by the patient. Patient was offered opportunity to ask questions. Patient's Physical Location: Home Provider's Physical Location: Onsite at [facility] Participants in this Telemedicine Visit other than the patient/provider and other group attendees included: N/A This visit started at: 10 AM and concluded at: 11:30 AM. Total time spent on this visit, including cpedrjyo-cg-[id number] interaction, review of medical record, and documentation: 100 minutes. Patient consents to this service: Yes Group Description: Tuesday Connections group consists of a psychotherapy group with content from [place] [facility] [employer]. Session Content of Today Group: Topics addressed in psychotherapy group included boundaries, regulation, and holiday stress coping techniques. The targeted goal and objective: To increase functioning by decreasing mental health symptoms that impact the ability to make safe choices Improve understanding of mental health, symptoms and coping strategies in order to alleviate symptoms and improve functioning and quality of life The patient's response to the intervention (including any plans to change the treatment if deemed ineffective): Kristina reports feeling sick this week and reports increased anxiety and panic in context of weaning off of SSRIs. She processed her fear of losing control and how this has been exacerbated by withdrawal symptoms. She and the group named how trauma healing can occur around trauma-versaries, with Kristina sharing that she has felt more reminded of past trauma in recent weeks, and namingfeeling more anger towards perpetrators of trauma than previous. Observations of Individual Group Member: MENTAL STATUS [...] obsessional thoughts and acts Claire Workman LPCC, 09/30/2023 1:35 PM T BREEDER documented in this encounter Plan of Treatment [...] Total Score: 7 08/22/20 23 11:05 AM PLANT BREEDER PHQ-2 Depression Total Score: 2 08/22/20 23 11:05 AM PLANT BREEDER documented as of this encounter
--- OUTSIDE RECORDS SUMMARY | 2023-10-20 07:07 | XMS_ITS | Encounter Summary ---
Author Name Unknown Organization [facility] Address [address] [place] [phone] Phone Care Team Providers Care Brush Cutter Name Role Phone Unavailable Primary Care Provider Unavailabl e Reason for Visit * Prior Authorization (Routine) - Closed Specialty Diagnoses / Procedures Referred By Contac t Referred To Contact Psych Rehab Diagnoses Bipolar II disorder () Trauma and stressor-related disorder Procedures MOTHER BABY ENROLLMENT Jazmine Potter, [facility] [address] [place] [address] [address] Referral ID Status Reason Start Date Expiration Date Visits Re quested Visits Authorized [id number] Closed 05/09/2023 06/24/2023 105 105 Encounter Details Date Type Department Care Team Description 06/23/2023 11:00 AM CDT Psych [facility]hab [facility] [address] [place] [phone] Karoline Benson MD 701 [facility] [address] [place], [place] [phone] Dh, Mother Baby Discharge Disposition: Discharged to [...] encounter Miscellaneous Notes * Group Note - Kiana Borges RN - 06/23/2023 11:00 AM CDT Dept: [facility] Type of Service: Group Therapy Provider/Group Experimental Rocketsled Mechanic: Kiana Borges RN Date of Service: 06/23/2023 Start Time: 11:15 AM Stop Time: 12:00 PM Number of Group Members Present: 4 Name of Group: Movement Location of Service: Face to Face at [facility] [employer] PROVIDED (if applicable): No Session Content (Intervention) (including goal/intended outcome): Encouraged group members to participate in mind-body skills facilitated by [facility] Trauma- Informed Yoga providers. Trauma-sensitive mind-body skills and practice were used to safely experiment with connecting with one's body. Movement included practicing - breathing, moving, strengthening and resting. Group members were invited to check in and notice their bodies. The psychoeducation topic related to the mind-body skills today was self compassion. The patient's response to the intervention: Patient presented as engaged and passive. The patient did participate fully in the activity. Observations of Individual Group Member: the patient arrived to group on time and remained the entire 45-minute session. She participated in the mind-body skills and movement exercises. Appeared alert and attentive to material presented and group members. Kiana Borges RN, 06/23/2023 12:07 PM documented in this encounter Plan of Treatment Not on file documented as of this encounter Visit Diagnoses Diagnosis Bipolar II disorder ()- Primary Other bipolar disorders Trauma and stressor-related disorder History of depression documented in this encounter Additional Health Concerns Assessment Noted Time PHQ-9 Depression Total Score: 19 06/02/ 023 4:26 PM CDT PHQ-2 Depression Total Score: 3 06/02/20 23 4:26 PM CDT documented as of this encounter
--- OUTSIDE RECORDS SUMMARY | 2023-10-20 07:07 | XMS_ITS | Encounter Summary ---
Author Name Unknown Organization [facility] Address [address] [place] [address] Phone Care Team Providers Care Electric Motor Analyst Name Role Phone Unavailable Primary Care Provider Unavailabl e Encounter Details Date Type Department Care Team Description 07/22/2023 10:00 AM CDT Telemedicine Psych Rehab [facility] [address] [place] [phone] Claire Workman LPCC [address] [place], [place] [address] Discharge Disposition: Discharged to home or self [...] Group Note - Claire Workman LPCC - 07/22/2023 10:00 AM CDT Dept: [facility] Type of Service: Group Therapy Provider/Group Cartography Professor: Claire Workman LPCC Date of Service: 07/22/2023 Start Time: 10:00 AM Stop Time: 11:30 AM Number of Group Members Present: 5 Name of Group: Tuesday Group Frequency: Weekly Location of Service: Hybrid Group (some participants face to face and some some on video): If this option is selected, telemed statement needs to be added for those who were on video. Group Description: Tuesday group consists of a psychotherapy group with content from [place] [facility] [employer]. Session Content of Today's Group: Topics addressed in psychotherapy group included complex relationships with parents, substance use and its effect on relationships, and coping skills in the period. The targeted goal and objective: To increase functioning by decreasing mental health symptoms that impact the ability to make safe choices Improve understanding of mental health, symptoms and coping strategies in order to alleviate symptoms and improve functioning and quality of life The patient's response to the intervention (including any plans to change the treatment if deemed ineffective): Kristina named continuing to process trauma, both from recent hospitalizations and also deeper trauma from childhood. She notes that her mood is, okay, and states she has experienced increased anxiety yesterday and today but has been able to cope with this. She participated in a group discussion of complex grief and named grieving her relationships with her parents as well as elementsof ambiguous loss. Observations of Individual Group Member: MENTAL STATUS EXAMINATION: Appearance: No apparent distress, Casually groomed, and Dressed appropriately for weather Behavior/relationship to examiner/demeanor: Cooperative, Engaged, and Pleasant Motor activity/EPS: Normal Speech rate: Normal Speech volume: Normal Speech articulation: Normal Speech coherence: Normal Speech spontaneity: Normal Mood (subjective report): Anxious/nervous Affect (objective appearance): Anxious/Nervous Thought Process (Associations): [...] Trauma and stressor-related disorder Claire Workman LPCC, 07/22/2023 11:46 AM documented in this encounter Plan of [...] No Claire Workman LPCC Developmental Growth - OTP - Increase overall functioning and stability [...]
--- OUTSIDE RECORDS SUMMARY | 2023-10-20 07:07 | XMS_ITS | Encounter Summary ---
Author Name Unknown Organization [facility] Address [address] [place] [address] Phone Care Team Providers Care Feeder Operator Automatic Name Role Phone Unavailable Primary Care Provider Unavailabl e Encounter Details Date Type Department Care Team Description 07/15/2023 10:00 AM CDT Telemedicine Psych Rehab [facility] [address] [place] [phone] Claire Workman LPCC [address] [place], [place] [address] Discharge Disposition: Discharged to home or self [...] Group Note - Claire Workman LPCC - 07/15/2023 10:00 AM CDT Dept: [facility] Type of Service: Group Therapy Provider/Group Denitrator: Claire Workman LPCC Date of Service: 07/15/2023 Start Time: 10:00 AM Stop Time: 11:30 AM Number of Group Members Present: 5 Name of Group: Tuesday Connections Group Frequency: Weekly Location of Service: Hybrid Group (some participants face to face and some some on video): If this option is selected, telemed statement needs to be added for those who were on video. Telemedicine: [employer] Video Visit: This telemedicine visit is conducted by audio and video technology between thepatient and provider. Informed consent was provided during e-check in and signed by patient. Patient was offered opportunity to ask any questions. Patient's Physical Location: Home Provider's Physical Location: Onsite at [facility] Participants in this Telemedicine Visit other than the patient/provided included: Group members This visit started at: 10 AM and concluded at: 11:30 AM. Group Description: Tuesday Connections group consists of a psychotherapy group with content from [place] [facility] [employer]. Session Content of Today's Group: Topics addressed in psychotherapy group included boundaries, coping with anxiety, and ambiguous loss around relationship with parents. The targeted goal and objective: To increase functioning by decreasing mental health symptoms that impact the ability to make safe choices Improve understanding of mental health, symptoms and coping strategies in order to alleviate symptoms and improve functioning and quality of life The patient's response to the intervention (including any plans to change the treatment if deemed ineffective): Kristina reports that she has felt, pretty good, over the last two weeks, and has had more opportunities to care for her two children without support from others. She relates that this has felt good and she has not felt overly overwhelmed. She and the group discussed asking for support,with Kristina noting she has asked her for support and experiences feelings of guilt around this. She accepted encouragement and validation from the group around asking for help. Observations of Individual Group Member: MENTAL STATUS [...] Trauma and stressor-related disorder Claire Workman LPCC, 07/15/2023 11:53 AM documented in this encounter Plan of [...]
--- OUTSIDE RECORDS SUMMARY | 2023-10-20 07:07 | XMS_ITS | Encounter Summary ---
Author Name Unknown Organization [facility] Address [address] [place] [address]. [place] [address] Phone Care Team Providers Care Adult Literacy Teacher Name Role Phone Unavailable Primary Care Provider Unavailabl e Encounter Details Date Type Department Care Team Description 06/23/2023 12:30 PM CDT Psych Rehab [facility] [address] [place] [phone] Ray Esposito MD [address] [phone] Discharge Disposition: Discharged to home or self [...] PM CDT documented as of this encounter Progress Notes * Ray Esposito MD - 06/23/2023 12:30 PM CDT 06/23/[address] [facility]. [facility] - mother-baby day [facility]. Medication review. Recent chart notes reviewed on Epic - including most recent brief admission to [facility] in-patient psychiatry because of severe and unrelenting obsessional thoughts of harming her baby (06/08/23 - 06/15/23). Per therapy staff - (and confirmed by patient herself today) - Kristina is now living with her partner's family in [place] - until such time as she can summon the courage to return to the apartcount includes the [facility] and her partner rent in [place] (which naturally had triggered a return of trauma-related s ymptoms). Has been coping better, though still symptomatic - and likely to graduate from the program this week. Patient is seen today in-person. Cooperative, pleasant in manner. Engages fairly readily. Allows adequate eye contact. Alert, gait normal. Self-care adequate. Speech is clearly enunciated. Not pressured. Normal volume. Associations intact. Thought content. Denies any current psychotic experiences - no AH, no VH. Immediate reality contactseems good. Mood - anxious, but overall less distressed and no longer severely depressed or suicidal. Denies any thoughts of causing harm to her child or to others. Affect somewhat constricted. No signs of hypomania. Insight is fairly good, current judgment improved. Recent and remote memory grossly intact. Appears fully oriented in 3 spheres. Attention span and concentration adequate for interview. Fund of knowledge adequate (but continues to disagree with the stated dx of Bipolarity). Diagnosis - Bipolar disorder type 2 (most recent episode depressed with psychotic symptoms) - PTSD with complex developmental trauma - BRANDON with intrusive thoughts - r/o OCD - history of alcohol use disorder and substance use disorder (opioids) - history multiple CHT injuries and history of seizure - pre-eclampsia with previous cardiac complications and work-up (including Holter monitor) - history of acute encephalopathy - Fe deficiency anemia Plan - continue Sertraline 50 mg daily (though has been advised to not continue unopposed SSRI without back-up from a mood stabilizer). - continue Buspirone ? 15 mg TID - FeSulfate 325 mg 3x week - Valacyclovir 500 mg tab, 2 daily - Ibuprofen 600 mg Q 6 h prn Ray Esposito M.D. documented in this encounter Plan of Treatment Not on file documented as of this encounter Visit Diagnoses Not on filedocumented in this encounter Additional Health Concerns Assessment Noted Time PHQ-9 Depression Total Score: 19 023 4:26 PM CDT PHQ-2 Depression Total Score: 3 06/02/20 23 4:26 PM CDT documented as of this encounter
--- OUTSIDE RECORDS SUMMARY | 2023-10-20 07:08 | XMS_ITS | Encounter Summary ---
Author Name Unknown Organization [facility] Address [address] [place] [phone] Phone Care Team Providers Care Lasting Machine Operator Bed Name Role Phone Unavailable Primary Care Provider Unavailabl e Reason for Visit * Reason Comments Suicidal Anxiety Direct Admit * Auth/Cert (Routine) Specialty Diagnoses / Procedures Referred By Contac t Referred To Contact PSYCHIATRY Diagnoses Bipolar II disorder () PTSD (post-traumatic stress disorder) Suicidal ideation Anxiety disorder, unspecified type Ildefonso Aviles MD [address] [place] [address] Psychiatry 3 Inpt (B5) [address] [facility] [address] [place] [address] Referral ID Status Reason Start Date Expiration Date Visits Re quested Visits Authorized [id number] 1 1 Encounter Details Date Type Department Care Team Description 06/08/2023 1:08 PM CDT - 06/15/2023 10:40 AM CDT Hospital Encounter [facility] Psych[facility] B5 [address] [facility] [address] [place], [place] [address] Andrew Barraza, SENIOR SERVICE TECHNICIAN, HAND CELL TU[facility] [address] [place], [place] [phone] Mervin Middleton MD [address] [facility] [address] [place], [place] [id number] Raegan Marinelli DO [address] [place], [place] [phone] Ildefonso Aviles MD [address] [place], [place] [id number] Bipolar II disorder () Discharge Disposition: Discharged to home or self [...] PM CDT documented as of this encounter Last Filed Vital Signs Vital Sign Reading [...] Mass Index 30.38 06/08/2023 8:18 PM CDT documented in this encounter Discharge Summaries * Raegan Marinelli DO - 06/15/2023 9:48 AM CDT Images from the original note were not included. PSYCHIATRIC DISCHARGE SUMMARY - Staff Merry Rooney : 2000 Sex: female DATE OF ADMISSION: 06/08/2023 DATE OF DISCHARGE: 06/15/2023 DISPOSITION: Home ATTENDING PSYCHIATRIST: Drs. Middleton and Yves OUTPATIENT PSYCHIATRIST: [facility] PRIMARY CARE PROVIDER: No primary care provider on file. ADMISSION DIAGNOSES: Hx of ana- mood and anxiety disorder Complex post-traumatic stress disorder R/o obsessive-compulsive disorder vs post- psychosis Bipolar disorder, unspecified vs cluster B traits Hx of opioid use disorder and alcohol use disorder, in sustained remission Pertinent medical diagnoses: Recent history of eclampsia w/ seizures DISCHARGE DIAGNOSES: Hx of ana- mood and anxiety disorder Complex post-traumatic stress disorder R/o obsessive-compulsive disorder vs post- psychosis Bipolar disorder, unspecified vs cluster B traits Hx of opioid use disorder and alcohol use disorder, in sustained remission Pertinent medical diagnoses: Recent history of eclampsia w/ seizures SUMMARY OF HOSPITAL COURSE: Initial Assessment, 06/09/23: Merry Rooney is a 23 y.o. female with past hx as noted above who presented to the ED for psychiatric admission after being placed on a 72 hour by the [facility] due to increased suicidal ideation. Upon arrival to [facility], she was calm and controlled. She denied any medical or physical concerns and was cooperative. Her current symptomatology does not suggest classic post- psychosis, but rather a confluence of past trauma, characterological factors, and perhaps underlying obsessive-compulsive disorder manifesting in ego-dystonic, intrusive thoughts. She has a history of poor tolerance of medications, particularly antipsychotics (even at lowdoses), with consequent various somatic symptoms. In light of this and due to the possibility that intrusive thoughts are less aligned with psychosis and moreso OCD, Risperdal 0.25 mg qHS will be started tonight. Pt has a history of possible akathisia on this agent (at this dose), but was not on concurrent propranolol at that time, which is likely to be protective as it is the first-line agent for treating akathisia. Pt also requested a PRN for anxiety and hydroxyzine 10 mg q4h PRN would be a reasonable option as she found 25 mg to be excessively sedating in the past. Finally, she has not yetbeen on Lamictal 25 mg for two weeks, so will defer titration until that point (next week). I believe that pt would also benefit from psychotherapy services focusing on DBT-type interventions; this is likely to help her address deeper past traumas with modalities like EMDR, which I see has been discussed during past encounters. Pt is denying any acute thoughts of harming self or others and is agreeable to hospitalization; she signed in voluntarily and we discussed tentative discharge date of mid-week next week. Pt verbalized understanding and was in agreement with the plan. Subsequent Course: 06/10/23: Pt denied acute concerns and appears to be doing well. Some residual intrusive thoughts butoverall lessened. Pt denied experiencing akathisia/restlessness, none objectively observed. No safety concerns today. Ordered referral for inpatient psychologist with an eye toward outpatient DBT program or individual therapy with DBT focus. Added additional, higher dose of hydroxyzine for insomnia. Continuing other medications for now, with plan to titrate Lamictal next week. 06/14/23: Weekend summary - went to some groups; pumping well; behaviorally did okay; medication compliant but for risperdal as she stated It gives me reactions, makes me want to go jump hard, racing thoughts. Notes she wants increase in Buspar as feels it helps immensely. Noted to RN she had intrusive thoughts 06/10 noc. Seen by x cover on 06/11 due to concern over iron level. Iron studies ordered. Ferritin within range but low end. Iron Saturation low. Iron low. Noted to another x cover that she continues to experience dizziness, headaches, and light sensitivity & Imitrex did not help. Summary from Dr. Mejia 05/29/23, right prior to admission: 23 y.o. mother of 2 following a harrowing course with psychotic symptoms and possible preeclampsia leading to transfer to [facility]. Longitudinal course consistent with Complex Developmental Trauma and bipolar spectrum. Recent psychiatric admission (05/24-) to [facility] and multiple, subsequent visits to outside ED (not avail in Care Everywhere) for increased SI, paranoia, and auditory hallucinations. Significantly worsened suicidal ideation, intrusive, ego-dystonic thoughts/images of harm befalling children, and trauma symptoms in the past several days. [place] safety concerns, recommending direct inpatient admission. Will await a bed in [facility]. Kids will be with safe family members ('s step parents). 1) Direct admission... 72 hour hold placed. 2)MEDICATIONS: - Continue Zyprexa 5mg QHS (too sedating at higher doses) - Continue buspar 10mg BID (recently increased) - Continue Lamictal titration of 25mg and due to go up to 50mg next week -Continue propranolol 10mg bid. 3) Anticipate continuing mother baby PHP upon d/c. Has therapy intake for EMDR that will need reschedule. 4) has ongoing cardiac workup with PCP -Holter monitor anticipated (has been multiple times to the ER with chest pain, palpitations. Extensive workup and ruled out for acute cardiac event or pulmonary event. Told she was having PVCs and referred to cardiology). Today, she is pleasant and engaged with the treatment team. We review her iron studies and why she is on every other day dosing for iron supplementation (per Medicine, better for absorption). We review Risperdal and she declines to take it further or any antipsychotic, I don't think I'm bipolar & they make my symptoms worse. She denies SI; and denies intrusive, ego dystonic thoughts/images over the weekend but notes this time of day (lunch) is when my trauma/anxiety comes up, can we add Buspar as I used to take it three times a day? Mixing Plant Operator reviews that notes showed she found it helpsimmensely. Per above, she's to be on 10mg BID (at present, on 7.5mg BID) and we agree to add 10mg m . As well, review that Lamictal will go to 50mg tmrw (confirmed that with PharmD). D/w her adding SSRI I was on Zoloft during my , it helped but, at present, she'd like to defer further medication additions to Mother [facility] staff. She is hopeful to return to Mother Baby program upon discharge. She denies SI/HI/AH/VH. Day of Discharge: Patient was feeling ready to leave the hospital. She was eager to be back with her family and children. She denies having any intrusive thoughts currently and says that they are overall greatly improved. She still has some intrusive thoughts but they are no longer what if I threw my baby out the window and more what if I accidentally dropped my baby. She shares that she has continued anxiety but that she is better able to identify it, address it and move on from it. She will be staying withher in-laws and will have her and children with her. Her in-laws flare worker and will bepresent with her 02/05 to assist. She feels safe to discharge both for her own safety and for that of her children. She feels supported by her family as well as by the mother baby program and other professional supports she has in place. She will be back in programming at [facility] tomorrow and plans to go visit them today at discharge. She did request to restart her Zoloft so this was restartedprior to discharge. On day of discharge, patient denies suicidal ideations, homicidal ideation, and did not appear to be a threat to themself or others . There are no enforcements of auditory hallucinations or visual hallucinations and no overt psychosis or manic symptoms are observed. Even though we are discharging the patient today, there are still chronic risk factors that continue to exist. The patient will be discharged in stable condition and as of today , no longer requires further monitoring in an inpatient setting. The patient is tolerating medications and is willing to maintain compliance. They will follow up with scheduled appointments. Complete sobriety was stressed and a crisis situation was discussed with the patient and a crisis plan was set in place. Medications: 06/09/23: CONTROL SYSTEMS TECHNICIAN Buspar 7.5 mg BID, Lamictal 25 mg daily, propranolol 10 mg BID Discontinued Zyprexa 5 mg due to poor tolerance / side effects Started Risperdal 0.25 mg qHS -- aware of previous of possible akathisia, believe it will be mitigated/masked by concurrent propranolol Started hydroxyzine 10 mg q4h PRN 06/10/23: Add hydroxyzine 25 mg qHS PRN for insomnia. 06/14/2023 Dc risperidone c/o akathisia Add to Buspar dosing, so now on 7.5mg qAM / 10mg qLunch / 7.5mg qHS (she states TID dosing would not be an issue for her) Inc Lamictal to 50mg on 06/15/2023 (confirmed with PharmD) Add Melatonin 1mg po qHS prn sleep 06/15/2023 Zoloft 50 mg daily RECOMMENDATIONS AND FOLLOWUP: Discharge Instructions: 1) Take medications on time as recommended and do not manage on your own/discontinue without consulting your physician. 2) Do not drive, operate heavy machinery or make any major life decision and/or business deal if feels sedated after taking medications. 3) Do not mix medications with alcohol. 4) Avoid use of alcohol and illegal drugs. 5) Keep all appointments as scheduled. 6) Come to nearest ER or call 911 or Crisis line if suicidal, homicidal and violent thoughts occur. Patient Education: 1) I educated the patient regarding the purpose of medications and potential side effects at length. 2) Diagnosis, medication choices, and the risks and benefits of all treatment options were discussed Your Appointments Jun 16, 2023 9:00 AM Gathering Group with Mother Sharron [facility] ([facility])) Arrive at: [address] [place], [place] [id number] Arrival Screening: When you arrive for your appointment, please have your photo ID and insurance card with you. Symptoms or Exposure: Please wear a mask if you have respiratory symptoms or were exposed or testedpositive for COVID-19 in the last 10 days. Visitor Policy: [facility], [facility] 2 visitors maximumin exam room, not including patient (subject to provider discretion). Located on the 1st level of the [facility] (P[facility]) , [address] [place] [address] Parking is available in the [facility] Parking Ramp on [address] [place] [address]. Jun 16, 2023 10:15 AM Psychtherapy Group with Mother Sharron [facility] ([facility])) Arrive at: [address] [place] [phone] Arrival Screening: When you arrive for your appointment, please have your photo ID and insurance card with you. Symptoms or Exposure: Please wear a mask if you have respiratory symptoms or were exposed or testedpositive for COVID-19 in the last 10 days. Visitor Policy: [facility], [facility], [facility] 2 visitors maximumin exam room, not including patient (subject to provider discretion). Located on the 1st level of the [facility] (P1.274) , [address] [place] [address] Parking is available in the [facility] Parking Ramp on [address] [place] [address]. Jun 16, 2023 11:00 AM Mother-Baby Connection Group with Mother Baby [facility] ([facility])) Arrive at: [address] [place] [phone] Arrival Screening: When you arrive for your appointment, please have your photo ID and insurance card with you. Symptoms or Exposure: Please wear a mask if you have respiratory symptoms or were exposed or testedpositive for COVID-19 in the last 10 days. Visitor Policy: [facility], [facility], [facility] 2 visitors maximumin exam room, not including patient (subject to provider discretion). Located on the 1st level of the [facility] (P1.508) , [address] [place] [address] Parking is available in the [facility] Parking Ramp on [address] [place] [address]. Jun 16, 2023 12:30 PM Psycheducation Group with Mother Baby [facility] ([facility])) Arrive at: [address] [place] [phone] Arrival Screening: When you arrive for your appointment, please have your photo ID and insurance card with you. Symptoms or Exposure: Please wear a mask if you have respiratory symptoms or were exposed or testedpositive for COVID-19 in the last 10 days. Visitor Policy: [facility], [facility], [facility] 2 visitors maximumin exam room, not including patient (subject to provider discretion). Located on the 1st level of the [facility] (P1.584) , [address] [place] [address] Parking is available in the [facility] Parking Ramp on [address] [place] [address]. Jun 16, 2023 1:45 PM Reflection Group with Mother Baby [facility] ([facility])) Arrive at: [address] [place] [phone] Arrival Screening: When you arrive for your appointment, please have your photo ID and insurance card with you. Symptoms or Exposure: Please wear a mask if you have respiratory symptoms or were exposed or testedpositive for COVID-19 in the last 10 days. Visitor Policy: [facility], [facility], [facility] 2 visitors maximumin exam room, not including patient (subject to provider discretion). Located on the 1st level of the [facility] (P1.571) , [address] [place] [address] Parking is available in the [facility] Parking Ramp on [address] [place] [address]. The next level of care provider has access to the EMR: Yes. PENDING TEST RESULTS: None RECOMMENDATIONS OF ANY SUB-SPECIALTY CONSULTANTS: - Patient was seen by consults to assist with during hospitalization - Follow up with neurology for assessment of neurological concerns - Follow up regarding microcytic anemia HOSPITAL PROBLEM LIST Principal Problem: Bipolar II disorder () Active Problems: Trauma and stressor-related disorder Anxiety disorder, unspecified type Suicidal ideation Resolved Problems: * No resolved hospital problems. * DISCHARGE VITALS: BP 105/59 (Cuff Location: Left Arm) Pulse 82 Temp 36.4 ??C (97.5 ??F) Resp 18 Ht 1.708 m (5' 7.24) Wt 88.6 kg (195 lb 6.4 oz) SpO2 99% BMI 30.38 kg/m?? DISCHARGE MENTAL STATUS EXAMINATION: Appearance: No apparent distress and Casually groomed Behavior/relationship to examiner/demeanor: Cooperative, Engaged, and Pleasant Speech rate: Normal Speech volume: Normal Speech articulation: Normal Speech coherence: Normal Speech spontaneity: Normal Thought Process (Associations): Logical/goal-directed, no loosening of associations Thought process (Rate): Normal Thought content: No suicidal ideation, No violent ideation, and No homicidal ideation. No current intrusive thoughts about harming herself or her child. Has not had any intrusive thoughts about harm since the 06/10. Continues to have thoughts of anxiety such as what if I accidentally drop my baby? Abnormal Perception: Denies, not RTIS Insight: Adequate Judgment: Adequate Sensorium: Alert, Oriented to person, Oriented to place, Oriented to date/time, and Oriented to situation Memory: Immediate recall intact, Short-term memory intact, and Long-term memory intact Attention/Concentration: Normal Fund of Knowledge/Intelligence: Average Mood (subjective report): good! Affect (objective appearance): Appropriate/mood-congruent and Bright Motor activity/EPS: Normal muscle strength and tone grossly Gait/Station: Normal Language: Intact Battery Vent Plug Inserter Needed: no PLANNED DISCHARGE ORDERS: Discharge Procedure Orders Set up Med Minders and educate. Order Comments: Set up Med Minders process and educate patient/caregivers. Scheduling Instructions: Specify what patient education is needed. Patient refuses post-discharge tobacco cessation education/assistance Why you were at the hospital: Order Comments: You were in the hospital to have your mood stabilized and to have your thinking improved. Your legal status at discharge: Other: voluntary Major Tests/Treatments During This Encounter Order Comments: Your care did not include major test or treatments, but followed an individualized treatment plan that included medication management, psychotherapy, and occupational therapy. Studies Pending at Discharge Order Comments: There were no pending lab tests or other tests at the time of your hospital discharge. When should I be concerned? Order Comments: Please call your clinic Psychiatrist, 911, or Acute Psychiatric Services (APS) at [phone]. It is located on the 1st floor of the [facility] ([address] [place] [address]) if: - you have not slept for 2 or more nights in a row - you have thoughts of self-harm - you have thoughts of harming others - you have increased depression - you have feelings of helplessness or hopelessness - you are unable to enjoy or complete usual activities After discharge phone call: Order Comments: -- A nursing staff person will call you 2 to 3 days after you are discharged to seehow you are doing. Please keep the appointments that have already been made. Order Comments: -- Please keep the appointments that have already been made. Ways to cope: Order Comments: -- Take prescribed medicines as scheduled -- Keep follow-up appointments -- Talk to others about your concerns -- Get regular exercise -- Eat a healthy diet -- Use community resources -- Stay sober Up as tolerated activity level. Order Comments: UP TOLERATED -- Rest is an important part of healing. Save your energy by spreading out activities that make youtired. Rest as needed. -- Slowly increase your level of activity. Resume Previous Activity Order Comments: -- You may continue your usual level of activity. It is important to get regular activity! -- Rest is also an important part of healing. Save your energy by spreading out activities that make you tired. Regular diet Order Comments: -- Eat a wide variety of foods, including fruits and vegetables, dairy, grains and meats. Take your medicine and plan ahead for refills Order Comments: - It is important that you take the medicines on your list. Work with your health care provider or pharmacist if you have questions about your medicine. - Plan ahead and use the Refill Line so that you don't run out of your medicine. It may take time to review your chart and get the medicine ordered. Medication List START taking these medications sertraline 50 mg tablet Commonly known as: ZOLOFT Take 1 tablet (50 mg) by mouth daily CHANGE how you take these medications * busPIRone 5 mg tablet Commonly known as: BUSPAR Take 1.5 tablets (7.5 mg) by mouth twice daily. What changed: medication strength how much to take * busPIRone 10 mg tablet Commonly known as: BUSPAR Take 1 tablet (10 mg) by mouth daily with lunch. Indications: Anxiety Disorder What changed: You were already taking a medication with the same name, and this prescription was added. Make sure you understand how and when to take each. ferrous sulfate 325 mg Tabs Take 1 tablet (325 mg) by mouth every Tuesday, Tuesday and Tuesday for Iron Deficiency What changed: how much to take how to take this when to take this additional instructions lamoTRIgine 25 mg Tabs Commonly known as: LaMICtal Take 2 tablets (50 mg) by mouth daily. Indications: Manic-Depression Start taking on: June 16, 2023 What changed: how much to take how to take this when to take this additional instructions vit-fe sulfate-fa 27-0.8 MG Tabs Take 1 tablet by mouth at bedtime. Indications: What changed: medication strength how much to take how to take this when to take this additional instructions * This list has 2 medication(s) that are the same as other medications prescribed for you. Read thedirections carefully, and ask your doctor or other care provider to review them with you. CONTINUE taking these medications albuterol 108 (90 BASE) mcg/act inhaler Commonly known as: VENTOLIN HFA;PROVENTIL HFA;PROAIR cyanocobalamin 1000 mcg Tabs Commonly known as: VITAMIN B-12 ibuprofen 600 mg tablet Commonly known as: MOTRIN;ADVIL propranolol 10 mg Tabs Commonly known as: INDERAL Take 1 tablet (10 mg) by mouth twice daily. valACYclovir 500 mg Tabs Commonly known as: VALTREX STOP taking these medications NIFEdipine 30 mg XL tablet Commonly known as: PROCARDIA XL OLANZapine 2.5 mg Tabs Commonly known as: ZyPREXA Where to Get Your Medications These medications were sent to [facility] [place] [id number] Hours: 02/05 busPIRone 10 mg tablet busPIRone 5 mg tablet ferrous sulfate 325 mg Tabs lamoTRIgine 25 mg Tabs vit-fe sulfate-fa 27-0.8 MG Tabs propranolol 10 mg Tabs sertraline 50 mg tablet REVIEW OF ANTIPSYCHOTIC MEDICATIONS: This patient was not discharged on multiple antipsychotic medications LEGAL STATUS AT TIME OF DISCHARGE: Voluntary Raegan Marinelli DO, 06/15/2023 9:22 PM documented in this encounter Medications at Time of Discharge Medication Sig Dispensed Refills Start Date End Date ferrous sulfate 325 mg oral TABSIndications:Iron Deficiency Take 1 tablet (325 mg) by mouth every Tuesday, Tuesday and Tuesday for Iron Deficiency 30 tablet 0 06/15/2023 Vit-Fe Fumarate-FA ( VIT-FE SULFATE-FA) 27-0.8 MG oral TABSIndications:Lactat ion Take 1 tablet by mouth at bedtime. Indications: 30 tablet 0 06/15/2023 valACYclovir (VALTREX) 500 mg oral TABSIndications:Herpes Simplex Infection Take 2 Tablets (1,000 mg) by mouth once daily for 5 days for HSV outbreaks as needed 0 cyanocobalamin (VITAMIN B-12) 1000 mcg oral TABSIndications:Vitami n B12 Deficiency Take 1 tablet (1,000 mcg) by mouth daily. 0 ibuprofen (MOTRIN;ADVIL) 600 mg oral tabletIndications:Pain Take 1 tablet (600 mg) by mouth every 6 hours if needed for pain 0 albuterol (VENTOLIN HFA;PROVENTIL HFA;PROAIR) 108 (90 BASE) mcg/act inhalation inhalerIndications:Ast hma Inhale 1-2 puffs into the lungs every 4 hours as needed for wheezing or shortness of breath 0 busPIRone (BUSPAR) 5 mg oral tabletIndications:Anxi ety Disorder Take 1.5 tablets (7.5 mg) by mouth twice daily. 90 tablet 0 06/15/2023 06/16/2023 busPIRone (BUSPAR) 10 mg oral tabletIndications:Anxi ety Disorder Take 1 tablet (10 mg) by mouth daily with lunch. Indications: Anxiety Disorder 30 tablet 0 06/15/2023 06/16/2023 lamoTRIgine (LAMICTAL) 25 mg oral TABSIndications:Bipola r Mood Disorder Take 2 tablets (50 mg) by mouth daily. Indications: Manic-Depression 60 tablet 0 06/16/2023 06/22/2023 propranolol (INDERAL) 10 mg oral TABSIndications:Situat ional Anxiety Take 1 tablet (10 mg) by mouth twice daily. 60 tablet 0 06/15/2023 06/16/2023 sertraline (ZOLOFT) 50 mg oral tabletIndications:Gene ralized Anxiety Disorder,Major Depressive Disorder,Posttraumatic Stress Disorder Take 1 tablet (50 mg) by mouth daily 30 tablet 0 06/15/2023 06/22/2023 documented as of this encounter Progress Notes * Eryn Romero RN - 06/15/2023 10:40 AM CDT DISCHARGE NOTE D: Patient has been discharged at 1040. A: (As documented in the Discharge Planning Flowsheet) Discharge Instructions (AVS): AVS given Discharge clothing/valuables: has adequate clothing Discharge medications: patient received medications Home equipment status: no equipment needed Home equipment/supplies recommended: none Final discharge destination: Home or self care R: The patient understood the AVS. P: Support patient if they call back with questions. Nursing Note D: Patient present in milieu and interacted with peers and students. Patient observed doing jewel art. Patient medication compliant, but refused propranolol 10 mg at 0907. A: Mixing Plant Operator administered medications as prescribed. Offered therapeutic 1:1 time including reassurance and positive affirmations, assessed mood and behaviors, and encouraged groups. R: Patient remained in behavioral control. Denied thought to harm self and/or others. Denied experiencing auditory and/or visual hallucinations. Denied pain. P: Patient needs met. Will continue to monitor and intervene as needed. Symptoms: No Direct COVID-19 exposure?: No History of positive COVID test?: Yes - Date: 05/26/23 - Infection Resolved Other indications for testing: No Shift compliance for patient masking: Patient did not wear mask appropriately while in milieu Shift compliance for patient social distancing: Patient was out in milieu majority of shift * Rosa Aldridge - 06/15/2023 10:09 AM CDT Psychiatric Social Work Discharge Note Plan: The patient has been evaluated and treated on inpatient psychiatry and is currently stable for discharge to home her in-laws home with .. Transportation provided by . Discharge address confirmed with: Patient beng taken home by Patient's family/Emergency Contact notified: Yes Contact information: Jesús Callejas was able to meet with the patient to discuss discharge plan. The patient is in agreement with this plan. Safety plan: Completed; see Safety Plan in FYI Legal: The patient's legal status at the time of discharge is: vol The patient does not have a legal guardian. Commitment end date, if applicable: n/a. Is there a Vanessa order in place? No Is there a Cesar Silva in place? No See PD below, if applicable. Contact Information: The patient does not have a clinical case manager. government program manager was not contacted. CM contact information: Other contact information: Additional comments/Follow Up Appointments: Pt will d/c with meds. Pt will d/c with appts noted below. Pt will restart [facility] tomorrow. Pt said she and her will be living with her in-laws for period of time and they will help care for the baby. She said in-laws flare worker. Mixing Plant Operator met with pt and her on the unit yesterday at length and discussed her illness re: knowing her triggers, importance of sleep, and f/u plan. Pt said she will be making appts at the [facility] program at some point because she will be completing the Mother Baby program. She discussed how she and her take shifts in caring for the baby during the night and speech therapist early intervention hours. She stated her family is very supportive. Appointments: Your Appointments Jun 16, 2023 9:00 AM Gathering Group with Mother Baby [facility] ([facility]) Arrive at: [address] [place] [id number] Arrival Screening: When you arrive for your appointment, please have your photo ID and insurance card with you. Symptoms or Exposure: Please wear a mask if you have respiratory symptoms or were exposed or testedpositive for COVID-19 in the last 10 days. Visitor Policy: [facility] [place], [facility], [facility] 2 visitors maximumin exam room, not including patient (subject to provider discretion). Located on the 1st level of the [facility] (F2.664) [place] [id number] Parking is available in the [facility]ing [facility]amp on [address] [place] [address]. Jun 16, 2023 10:15 AM Psychtherapy Group with Mother Baby [facility] ([facility]) Arrive at: [address] [place] [address] [phone] Arrival Screening: When you arrive for your appointment, please have your photo ID and insurance card with you. Symptoms or Exposure: Please wear a mask if you have respiratory symptoms or were exposed or testedpositive for COVID-19 in the last 10 days. Visitor Policy: [facility] [place], [facility], [facility] 2 visitors maximumin exam room, not including patient (subject to provider discretion). Located on the 1st level of the [facility] (C3.753) [address] [address] Parking is available in the [facility] Parking Ramp on [address] [place] [address]. Jun 16, 2023 11:00 AM Mother-Baby Connection Group with Mother Baby [facility] ([facility]) Arrive at: [address] [place] [phone] Arrival Screening: When you arrive for your appointment, please have your photo ID and insurance card with you. Symptoms or Exposure: Please wear a mask if you have respiratory symptoms or were exposed or testedpositive for COVID-19 in the last 10 days. Visitor Policy: [facility] [place], [facility], [facility] 2 visitors maximumin exam room, not including patient (subject to provider discretion). Located on the 1st level of the [facility] (P1.298) , [address] [place] [address] Parking is available in the [facility] Parking Ramp on [address] [place] [address]. Jun 16, 2023 12:30 PM Psycheducation Group with Mother Baby [facility] ([facility]) Arrive at: [address] [place] [phone] Arrival Screening: When you arrive for your appointment, please have your photo ID and insurance card with you. Symptoms or Exposure: Please wear a mask if you have respiratory symptoms or were exposed or testedpositive for COVID-19 in the last 10 days. Visitor Policy: [facility] [place], [facility], [facility] 2 visitors maximumin exam room, not including patient (subject to provider discretion). Located on the 1st level of the [facility] (P1.634) , [address] [place] [address] Parking is available in the [facility] Parking Ramp on [address] [place] [address]. Jun 16, 2023 1:45 PM Reflection Group with Mother Baby [facility] ([facility]) Arrive at: [address] [place] [address] Arrival Screening: When you arrive for your appointment, please have your photo ID and insurance card with you. Symptoms or Exposure: Please wear a mask if you have respiratory symptoms or were exposed or testedpositive for COVID-19 in the last 10 days. Visitor Policy: [facility] [place], [facility], [facility] 2 visitors maximumin exam room, not including patient (subject to provider discretion). Located on the 1st level of the [facility] (P1.755) , [address] [place] [address], [place] [address] Parking is available in the [facility] Parking Ramp on [address] Please keep your appointment. If you are unable to attend or if you are going to be late, please call the service or clinic. [facility] entrances: Purple = [address] or [address] [facility] [address] [facility] [address] Blue = [address] [facility] [address] or [address] Red = [address] Stage of Change: Subst Abuse: Stage of Change/Treatment: Relapse Prevention Mental Illness: Stage of Change/Treatment: Early Persuasion (IMR - Engagement) * Shira Quinones OTR/L - 06/15/2023 10:03 AM CDT Problem: Alteration in Emotional Regulation Skills Goal: By discharge, the patient will identify healthy coping strategies to manage stressful situtations Description: By discharge, the patient will identify 3 healthy coping strategies to manage stressful situtations as a way to cope in a healthy and meaningful manner within discharge setting. 06/15/2023 0956 by Shira Quinones, OTR/L Outcome: In progress Note: Occupational Therapy Contact Note D: Met with patient for 25 minutes. A: Therapist invited patient to participate in a 1:1 OT services. Patient accepted invitation. R: Approached pt who had just finished eating breakfast in the milieu. Pt was invited to work on jessica art project that she had started in OT clinic. Pt engaged in conversation throughout activity and stated she would like to purchase some jessica art for home. She reports that it is relaxing andcalming to her and I need things like this because I have a 2 year old and at home. Pt expressed that she feels she does not have enough time to do relaxing activities, and if she were to do jessica art at home her 2 year old would want to sit on her lap at all times. Discussed and educated on additional calming activities pt could do at home. Pt also stated she is waiting to meet with her doctor this morning and she believes she is leaving today. States I've done my time, I don't know why it's so difficult to leave. Pt pleasant in all interactions, expresses frustration with peer(BUTCH) who was talking poorly of a staff member. Shared that she plans to give her jessica art to nehemiah. P: Continue with plan of care. Therapist will invite to OT groups to engage patient in tasks and assess functional performance. Shira Quinones, OTR/L, 06/15/2023 9:56 AM * Sharon Camarillo RN - 06/15/2023 7:22 AM CDT Problem: Alterations in Thought Process Description: List psychotic symptoms - Hallucination - Thought blocking - Delusions - Disorganization Goal: Adequate Sleep/Rest Description: - Patient will sleep 6-8 hours per night - Patient will state he/she feels rested after each night's sleep. - Patient will state that nightmares are not a problem each morning. - Patient will not fall asleep while sitting in the TV room or lounge on all shifts. Outcome: In progress NIGHT NURSING NOTE D: Patient appeared to be asleep most hours of the shift. Declined to use breast pump at 03:00 am and 06:00 am. No concern on behavioral issue A: Sleep, mood, behavior and safety checks assessed every 15 minutes. R: Patient slept with no complain of pain. P: Continue to monitor and follow care plan. * Amelia Benavides RN - 06/14/2023 9:17 PM CDT Problem: Alterations in Thought Process Description: List psychotic symptoms - Hallucination - Thought blocking - Delusions - Disorganization Goal: Reverse/prevent/modify psychotic symptoms Description: - Patient will state psychotic symptoms are not interfering with their abiliity to process conversation at a minimum of once per shift. - Patient will report at least once per shift that their psychotic symptoms are less or at an acceptable level. - Patient will pursue interests and activities that have been important to them in the past. Outcome: In progress Nursing Note D: Had visit from at shift start reported visit went well. Signed 12 hour notice at 16:16; message sent to team however, patient changed her mind after talked to social science professor. Per provider patient might discharge tomorrow morning. Denies current thoughts of harming self, others or COVID symptoms. Compliant with medications except propanol 10 mg it will drop my blood pressure. Appropriate with request. Remain in control. A: Offered 1;1, PRN melatonin and scheduled medications given as ordered and reassurance provided to patient. Encouraged for groups and socialization, and performing ADLs. Safety and behavior monitored during the shift. R: Cooperative and calm on approach. Medication compliant. Makes needs known. P: Will continue to monitor and follow per plan. * Humera Bear TR - 06/14/2023 8:44 PM CDT Problem: Stress Management / Coping Goal: Patient will identify/demonstrate positive skills to improve stress, mood, behaviors Description: Patient will identify or demonstrate 1 positive Coping Strategies to improve Stress Management. Outcome: In progress Note: Therapeutic Recreation Group Note D: Patient attended Therapeutic Recreation group: Recreation Activity/Skills Patient stayed in group for: 100% A: Patient was invited to attend Therapeutic Recreation group to improve awareness of healthy choices that promote good physical and mental health, as well as develop the skills needed to be successful in maintaining a healthy lifestyle. Patient was encouraged to participate and was offered feedback, support, and intervention as needed. R: Patient joined group when announced, she re-learned and played Rummy, good focus, very pleasant and social with TR staff and peers, easily engaged. P: Patient met goal in today's Therapeutic Recreation group. See Care Plan for goals and interventions. Therapeutic Recreation staff will encourage patient's participation in a variety of groups. Humera Bear TR, 06/14/2023 8:43 PM * Duglas Jose TR - 06/14/2023 3:13 PM CDT Problem: Stress Management / Coping Goal: Patient will identify/demonstrate positive skills to improve stress, mood, behaviors Description: Patient will identify or demonstrate 1 positive Coping Strategies to improve Stress Management. Outcome: In progress Note: Wellness Group Core content of session: Participants were presented with the topic of social wellness. Session Structure: 45 minute group in which introductions were completed and group rules discussed.The topic from the previous group was discussed. Introduced group to discussion/activity with focuson learning new skill, healthy habits, and incorporating wellness into everyday life. When applicable, participants also discussed how substance use impacts their life in relation to this topic. Treatment Techniques: Motivational Interviewing, Cognitive-Behavioral Techniques, Psychoeducation Session Content/Progress: Introduction to social wellness Patient was able to actively participate in the group discussion and/or activity. Patient discussed during the group that on a scale from 1-10 in regards to lowest number is perceived low level of social wellness and 10 being the greatest. Pt. States that she rates this for self at 6. Pt. Shares that she does have limited social wellness connections as a young mom of two very young children where she is more isolated. She does note that her mom and as her main social connection. She now is involved in the Mother Baby program here at [facility] and expresses great appreciation for this program and would encourage everyone after the of their child to be engaged. Pt. Does openly share with comic writer post group that she has had very difficult pregnancies and post delivering. This is further complicated by her difficult childhood and much trauma and PTSD as well asun treated pre term high blood pressure which too adds to the existing PTSD. Pt. Does share that she is Jewish and stated that she appreciated talking to the comic writer and could affirm all that she has accomplished and the HOPE she has even if little can continue to build. Plan: Discuss progress in treatment rounds. Continue to encourage participation in Wellness group. Practice: Participants are encouraged to try new skills relative to the group topic. Duglas Jose TR, 06/14/2023 3:07 PM * Maxine Mays OTR/Malik - 06/14/2023 2:00 PM CDT Problem: Alteration in Emotional Regulation Skills Goal: By discharge, the patient will identify healthy coping strategies to manage stressful situtations Description: By discharge, the patient will identify 3 healthy coping strategies to manage stressful situtations as a way to cope in a healthy and meaningful manner within discharge setting. Outcome: In progress Note: Occupational Therapy Psych Progress Note D: Pt attended OT group for 30-45 minutes A: Invited to OT per schedule. Provided with opportunity to participate in task and graded to functional level. Offered feedback and support. R: Group Participation: Appearance: Clean and neatly groomed Attention span/concentration: Attends 30-45 minutes Attention to detail: neat/ organized Decision making: Makes decisions independently Organization: Organizes complex tasks Direction following: Follows 2-3 step directions consistently Problem solving: Accomplishes task with simple trial and error problem solving Interpersonal skills: Interacts upon approach Assertiveness: Expresses needs directly Comments: Pt arrived to group upon invite and continued working on fine detail project. She was self-directed and task-focused in group. She shared supplies with peer and was organized. Pt shared shemay discharge tomorrow and inquired about finishing her project. Pt was informed she could take herproject as is, but she couldn't have additional supplies. Pt verbalized understanding and worked quickly for the remainder of group while still paying attention to detail. Her affect was neutral and she was pleasant in group. P: Continue per plan. Therapist will invite to OT to engage in tasks to assess through occupationalperformance. Maxine Mays OTR/L, 06/14/2023 4:06 PM * Binu Street RN - 06/14/2023 1:21 PM CDT Problem: Inadequate Coping Goal: Verbalizes Adaptive Coping Mechanisms Description: Able to verbalize adaptive coping mechanisms such as physical activity, distraction, and deep breathing exercises. INTERVENTIONS: o Encourage ambulation/activity per patient's ability o Encourage participation in diversionary activities Outcome: In progress D: Merry has been visible on the lounge interacting with selected peers.. Has been pumping/handexpressing, getting 1-2 oz of milk. Appropriate affect. Mostly keeping to herself in room. Denies SI,HI,VH,AH. Denies for pain/headache. Neuro Intact. BP remain under control. A: Administered medications. Behavior/mood monitored. 1:1 Staff time offered. Encouraged use of healthy coping skills-pumping and attending groups. Discussed Importance of getting enough fluid to generate milk supply. R: Compliant with medications and cooperative and pleasant. Making her needs known. P: Continue to monitor with care plan and endorse positive reinforcement toward care plan behavioral goals. * Sharon Camarillo RN - 06/14/2023 7:28 AM CDT Problem: Alterations in Thought Process Description: List psychotic symptoms - Hallucination - Thought blocking - Delusions - Disorganization Goal: Adequate Sleep/Rest Description: - Patient will sleep 6-8 hours per night - Patient will state he/she feels rested after each night's sleep. - Patient will state that nightmares are not a problem each morning. - Patient will not fall asleep while sitting in the TV room or lounge on all shifts. Outcome: In progress NIGHT NURSING NOTE D: Patient appeared to be asleep most hours of the shiftPatient declined to use breast pump at 03:00 am and 06:00 am. No concern or behavioral issue was observed. Patient requested and received Tylenol 650 Mg for headache at 0332 A: Sleep, mood, behavior and safety checks assessed every 15 minutes. R: Patient slept with no complain of pain. P: Continue to monitor and follow care plan. * Dulce Hardin MD - 06/14/2023 7:18 AM CDT PSYCHIATRY PROVIDER WEEKDAY PROGRESS NOTE - Staff Merry Rooney : 2000 Sex: female Merry Rooney is seen today for ongoing management of diagnoses as noted below. DIAGNOSES: Hx of ana-betsy mood and anxiety disorder Complex post-traumatic stress disorder R/o obsessive-compulsive disorder vs post- psychosis Bipolar disorder, unspecified vs cluster B traits Hx of opioid use disorder and alcohol use disorder, in sustained remission Pertinent medical diagnoses: Recent history of eclampsia w/ seizures ASSESSMENT AND PLAN: Initial Assessment, 06/09/23: Merry Rooney is a 23 y.o. female with past hx as noted above who presented to the ED for psychiatric admission after being placed on a 72 hour by the [facility] due to increased suicidal ideation. Upon arrival to [facility], she was calm and controlled. She denied any medical or physical concerns and was cooperative. Her current symptomatology does not suggest classic post- psychosis, but rather a confluence of past trauma, characterological factors, and perhaps underlying obsessive-compulsive disorder manifesting in ego-dystonic, intrusive thoughts. She has a history of poor tolerance of medications, particularly antipsychotics (even at lowdoses), with consequent various somatic symptoms. In light of this and due to the possibility that intrusive thoughts are less aligned with psychosis and moreso OCD, Risperdal 0.25 mg qHS will be started tonight. Pt has a history of possible akathisia on this agent (at this dose), but was not on concurrent propranolol at that time, which is likely to be protective as it is the first-line agent for treating akathisia. Pt also requested a PRN for anxiety and hydroxyzine 10 mg q4h PRN would be a reasonable option as she found 25 mg to be excessively sedating in the past. Finally, she has not yetbeen on Lamictal 25 mg for two weeks, so will defer titration until that point (next week). I believe that pt would also benefit from psychotherapy services focusing on DBT-type interventions; this is likely to help her address deeper past traumas with modalities like EMDR, which I see has been discussed during past encounters. Pt is denying any acute thoughts of harming self or others and is agreeable to hospitalization; she signed in voluntarily and we discussed tentative discharge date of mid-week next week. Pt verbalized understanding and was in agreement with the plan. 06/10/23: Pt denied acute concerns and appears to be doing well. Some residual intrusive thoughts butoverall lessened. Pt denied experiencing akathisia/restlessness, none objectively observed. No safety concerns today. Ordered referral for inpatient psychologist with an eye toward outpatient DBT program or individual therapy with DBT focus. Added additional, higher dose of hydroxyzine for insomnia. Continuing other medications for now, with plan to titrate Lamictal next week. 06/14/23: Weekend summary - went to some groups; pumping well; behaviorally did okay; medication compliant but for risperdal as she stated It gives me reactions, makes me want to go jump hard, racing thoughts. Notes she wants increase in Buspar as feels it helps immensely. Noted to RN she had intrusive thoughts 06/10 noc. Seen by x cover on 06/11 due to concern over iron level. Iron studies ordered. Ferritin within range but low end. Iron Saturation low. Iron low. Noted to another x cover that she continues to experience dizziness, headaches, and light sensitivity & Imitrex did not help. Summary from Dr. Mejia 05/29/23, right prior to admission: 23 y.o. mother of 2 following a harrowing course with psychotic symptoms and possible preeclampsia leading to transfer to [facility]. Longitudinal course consistent with Complex Developmental Trauma and bipolar spectrum. Recent psychiatric admission (05/24-) to [facility] and multiple, subsequent visits to outside ED (not avail in Care Everywhere) for increased SI, paranoia, and auditory hallucinations. Significantly worsened suicidal ideation, intrusive, ego-dystonic thoughts/images of harm befalling children, and trauma symptoms in the past several days. [place] safety concerns, recommending direct inpatient admission. Will await a bed in [facility]. Kids will be with safe family members ('s step parents). 1) Direct admission... 72 hour hold placed. 2)MEDICATIONS: - Continue Zyprexa 5mg QHS (too sedating at higher doses) - Continue buspar 10mg BID (recently increased) - Continue Lamictal titration of 25mg and due to go up to 50mg next week -Continue propranolol 10mg bid. 3) Anticipate continuing mother baby PHP upon d/c. Has therapy intake for EMDR that will need reschedule. 4) has ongoing cardiac workup with PCP -Holter monitor anticipated (has been multiple times to the ER with chest pain, palpitations. Extensive workup and ruled out for acute cardiac event or pulmonary event. Told she was having PVCs and referred to cardiology). Today, she is pleasant and engaged with the treatment team. We review her iron studies and why she is on every other day dosing for iron supplementation (per Medicine, better for absorption). We review Risperdal and she declines to take it further or any antipsychotic, I don't think I'm bipolar & they make my symptoms worse. She denies SI; and denies intrusive, ego dystonic thoughts/images over the weekend but notes this time of day (lunch) is when my trauma/anxiety comes up, can we add Buspar as I used to take it three times a day? Mixing Plant Operator reviews that notes showed she found it helpsimmensely. Per above, she's to be on 10mg BID (at present, on 7.5mg BID) and we agree to add 10mg m . As well, review that Lamictal will go to 50mg tmrw (confirmed that with PharmD). D/w her adding SSRI I was on Zoloft during my , it helped but, at present, she'd like to defer further medication additions to [facility] staff. She is hopeful to return to [facility] program upon discharge. She denies SI/HI/AH/VH. 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 06/14/2023 Dc risperidone c/o akathisia Add to Buspar dosing, so now on 7.5mg qAM / 10mg qLunch / 7.5mg qHS (she states TID dosing would not be an issue for her) Inc Lamictal to 50mg on 06/15/2023 (confirmed with PharmD) Add Melatonin 1mg po qHS prn sleep Diagnostic Testing: N/A Consultations: N/A Labs: Labs reviewed and unremarkable I have reviewed and approved the Interdisciplinary Care Plan: Yes. SUBJECTIVE/HPI: Per Nursing Note/Report: D: Patient has alternated between room and lounge. Anxious mood with appropriate affect. Requested and received tylenol for headache with partial effect. Patient requested to talk to a provider.I keep having these headaches and dizziness. BP this morning 105/50 sitting pulse 82, 108/65 standing, pulse 84. Med psych cross cover paged and seen. See notes. Denied hallucinations, suicidal or homicidal ideations. Ate meals with good appetite. Kept to self. Made some calls. Compliant with medications. 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 Patient did pump breast milk . and mom visited. Took some naps. Behaviorally in control. A: Offered 1:1 time. Assessed and monitored behavior, mood, thought process. Offered support, reassurance and encouragement. Medications given as per order. R: Anxious mood. Polite and cooperative with cares. Compliant with medications. Kept to self. No behavioral concerns. P: Will continue to monitor per care plan. Per Staff Interview: Pt is seen in the conference room. We review iron studies and iron supplementation. She mentions not wanting to use Risperdal or any other AP they make my symptoms worse and thinks she was incorrectly labeled as bipolar. She has found TID Buspar to help in the past and is unaware why she went down on the Buspar dose but would like a lunchtime dose added Vistaril doesn't help. Pt says she had depression and says she can be hyperactive sometimes. Notes guanfacine did help but lowered my blood pressure. Notes she is drinking a lot of fluids to keep BP up and to help with milk supply. has been visiting her and she's been using phone pictures of the baby to help with , but she is concerned her supply is going down. Pt reports not sleeping well but that's all the time because my Propanolol drops my blood pressure some. Pt denies having any intrusive thoughts since 06/10. Denies SI/HI/AH/VH or other medication side effects. REVIEW OF SYSTEMS/SIDE EFFECTS: Constitutional: No concerns/complaints Eyes: No concerns/complaints ENT: No concerns/complaints Respiratory: No concerns/complaints Cardiovasuclar: No concerns/complaints Gastrointestinal: No concerns/complaints Genitourinary: No concerns/complaints Musculoskeletal: No concerns/complaints Integumentary: No concerns/complaints Neurological: No Concerns/complaints Psychiatric: Concerns/complaints may be reviewed in the note below Endocrine: No concerns/complaints Hematological/Lymphatic: No concerns/complaints Allergic/Immunologic: No concerns/complaints EXAMINATION: Vitals: Patient Vitals for the past 24 hrs: BP Temp Temp src Pulse Resp SpO2 06/13/23 1700 127/63 37.2 ??C (99 ??F) Oral 78 16 100 % 06/13/23 1003 91/61 -- -- 81 -- -- 06/13/23 1000 95/56 36.3 ??C (97.3 ??F) Oral 71 18 99 % 06/13/23 0822 108/65 -- -- 84 -- -- 06/13/23 0820 105/50 36.5 ??C (97.7 ??F) Oral 82 18 99 % Weight: Weight: 88.6 kg (195 lb 6.4 oz) (06/08/232017) MENTAL STATUS EXAM: Appearance: Casually groomed and Appears stated age Behavior/relationship to examiner/demeanor: Cooperative, Engaged, and Pleasant Speech rate: Normal Speech volume: Normal Speech articulation: Normal Speech coherence: Normal Speech spontaneity: Normal Thought Process (Associations): Logical/goal-directed Thought process (Rate): Normal Thought content: Normal, No SI/HI/AH/VH. Denies intrusive, ego dystonic thoughts/images today &over the weekend Abnormal Perception: None Insight: Fair Judgment: Fair Sensorium: Alert Memory: Immediate recall intact, Short-term memory intact, and Long-term memory intact Attention/Concentration: Normal Fund of Knowledge/Intelligence: Average Mood (subjective report): this time of day (lunch) is when my trauma/anxiety comes up Affect (objective appearance): Appropriate/mood-congruent Motor activity/EPS: Normal muscle strength and tone Gait/Station: Normal Language: Intact Edinson Arroyo Scribe, acted as scribe for Dulce Hardin MD in documenting the service orprocedure. Ari Birch Carter, Scribe, 06/14/2023 12:11 Dulce Arroyo MD have reviewed the initial documentation provided by the david and affirmthat it is an accurate restatement of my dictated record of services. Signed: Dulce Hardin MD, 06/14/2023 1:51 PM * Humera Christiansen RN - 06/13/2023 10:59 PM CDT Problem: Pain Goal: Verbalizes/displays adequate comfort level or baseline comfort level Description: o Encourage patient to monitor pain and request assistance o Assess pain using appropriate pain scale o Administer analgesics based on type and severity of pain and evaluate response o Implement non-pharmacological measures as appropriate and evaluate responses o Notify provider if interventions unsuccessful or patient reports new pain Outcome: In progress Problem: Inadequate Coping Goal: Demonstrates Ability to [place] Effectively Description: Patient is able to verbalize feelings related to emotional state. INTERVENTIONS: o Encourage verbalization of feelings, perceptions, fears, stressors, loss of loved ones o Encourage verbalization of problems out of their control o Encourage participation in care o Inform patient of all treatment/care prior to providing care o Collaborate with pastoral/spiritual care, social sciences chair, mental health counselor as needed 06/13/2023 [id number] by Humera Christiansen, LUCÍA Outcome: In progress 06/13/2023 0852 by Humera Christiansen RN Outcome: In progress Problem: Potential for Suicide Goal: Remain Free From Self Harm Description: INTERVENTIONS: o Assess suicide risk on admission and per hospital policy o Assess and monitor patient's mood and behaviors which may signal an increase in suicidal potential, statements such as I wish I were , acting recklessly, giving away personal possessions, or suicide notes o Assess patient for symptoms of post-traumatic stress disorder o Implement suicide precautions per hospital policy o Collaborate with interdisciplinary team and initiate plan and interventions as ordered o Provide and maintain a safe environment o Provide room close to nursing station o Visual checks per hospital policy o Sitter/family member in room with patient o Develop in writing or verbally a no self harm contract with patient o Ask family/caregiver if they have observed any suicidal preparations o Include patient/family/caregiver in decisions related to safety o Involve patient/family/caregiver in discharge planning process o Collaborate with pastoral/spiritual care, social sciences chair, mental health counselor as needed o Refer to community support groups 06/13/[id number] by Humera Christiansen RN Outcome: In progress 06/13/2023851 by Humera Christiansen RN Outcome: In progress Problem: Alterations in Thought Process Description: List psychotic symptoms - Hallucination - Thought blocking - Delusions - Disorganization Goal: Reverse/prevent/modify psychotic symptoms Description: - Patient will state psychotic symptoms are not interfering with their abiliity to process conversation at a minimum of once per shift. - Patient will report at least once per shift that their psychotic symptoms are less or at an acceptable level. - Patient will pursue interests and activities that have been important to them in the past. 06/13/20231736 by Humera Christiansen RN Outcome: In progress 06/13/2023851 by Humera Christiansen RN Outcome: In progress Nursing Note D: Patient has alternated between room and lounge. Neutral mood with appropriate affect. Denied pain or Covid symptoms. Denied thoughts of hurting self or others as well as hallucinations. Compliant with medications except bedtime Risperdal. Social with room mate. Ate meals with good appetite. Carmen received some calls. Patient expressed some breast milk but did not use the breast pump. Patient stated she is not getting enough milk. Patient stated she might be able to get more milk once she leaves the hospital and be with her baby. Watched TV. Initiated and took a shower. Observed patient doing some writing in her room. No behavioral concerns. A: Assessed and monitored behavior, mood, thought process. Offered support and reassurance. Medications given as per order. R: Compliant with medications. Social with select peer. No behavioral concerns. P: Will continue to monitor per care plan. Inpatient Psych COVID Screen Temperature: see vital signs Do you have a fever? No Do you have nasal congestion? No Do you have chills? No Do you have shortness of breath? No Do you have a cough? No Are you sneezing? No Do you have a sore throat? No Do you have nausea/vomiting or GI upset? No Do you have diarrhea? NoShift compliance for patient maskin - Patient did not wear mask appropriately while in milieu Shift compliance for patient social distancin - Patient was out in milieu majority of shift * Humera Christiansen RN - 06/13/2023 3:12 PM CDT Problem: Pain Goal: Verbalizes/displays adequate comfort level or baseline comfort level Description: o Encourage patient to monitor pain and request assistance o Assess pain using appropriate pain scale o Administer analgesics based on type and severity of pain and evaluate response o Implement non-pharmacological measures as appropriate and evaluate responses o Notify provider if interventions unsuccessful or patient reports new pain Outcome: In progress Problem: Inadequate Coping Goal: Demonstrates Ability to [place] Effectively Description: Patient is able to verbalize feelings related to emotional state. INTERVENTIONS: o Encourage verbalization of feelings, perceptions, fears, stressors, loss of loved ones o Encourage verbalization of problems out of their control o Encourage participation in care o Inform patient of all treatment/care prior to providing care o Collaborate with pastoral/spiritual care, social sciences chair, mental health counselor as needed Outcome: In progress Problem: Potential for Suicide Goal: Remain Free From Self Harm Description: INTERVENTIONS: o Assess suicide risk on admission and per hospital policy o Assess and monitor patient's mood and behaviors which may signal an increase in suicidal potential, statements such as I wish I were , acting recklessly, giving away personal possessions, or suicide notes o Assess patient for symptoms of post-traumatic stress disorder o Implement suicide precautions per hospital policy o Collaborate with interdisciplinary team and initiate plan and interventions as ordered o Provide and maintain a safe environment o Provide room close to nursing station o Visual checks per hospital policy o Sitter/family member in room with patient o Develop in writing or verbally a no self harm contract with patient o Ask family/caregiver if they have observed any suicidal preparations o Include patient/family/caregiver in decisions related to safety o Involve patient/family/caregiver in discharge planning process o Collaborate with pastoral/spiritual care, social sciences chair, mental health counselor as needed o Refer to community support groups Outcome: In progress Problem: Alterations in Thought Process Description: List psychotic symptoms - Hallucination - Thought blocking - Delusions - Disorganization Goal: Reverse/prevent/modify psychotic symptoms Description: - Patient will state psychotic symptoms are not interfering with their abiliity to process conversation at a minimum of once per shift. - Patient will report at least once per shift that their psychotic symptoms are less or at an acceptable level. - Patient will pursue interests and activities that have been important to them in the past. Outcome: In progress Nursing Note D: Patient has alternated between room and lounge. Anxious mood with appropriate affect. Requested and received tylenol for headache with partial effect. Patient requested to talk to a provider.I keep having these headaches and dizziness. BP this morning 105/50 sitting pulse 82, 108/65 standing, pulse 84. Med psych cross cover paged and seen. See notes. Denied hallucinations, suicidal or homicidal ideations. Ate meals with good appetite. Kept to self. Made some calls. Compliant with medications. 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 Patient did pump breast milk . and mom visited. Took some naps. Behaviorally in control. A: Offered 1:1 time. Assessed and monitored behavior, mood, thought process. Offered support, reassurance and encouragement. Medications given as per order. R: Anxious mood. Polite and cooperative with cares. Compliant with medications. Kept to self. No behavioral concerns. P: Will continue to monitor per care plan. Shift compliance for patient maskin - Patient did not wear mask appropriately while in milieu Shift compliance for patient social distancin - Patient was out in milieu majority of shift Inpatient Psych COVID Screen Temperature: see vital signs Do you have a fever? No Do you have nasal congestion? No Do you have chills? No Do you have shortness of breath? No Do you have a cough? No Are you sneezing? No Do you have a sore throat? No Do you have nausea/vomiting or GI upset? No Do you have diarrhea? No * Humera Christiansen RN - 06/13/2023 3:10 PM CDT MEDICATION RESPONSE NOTE D: Reveals pain, anxiety A: Merry Rooney was given tylenol for headache and vistaril for anxiety. R: Response to medication was partially effective. P: Will continue to monitor for comfort and safety. * Melvina Morrow APRN, CNP - 06/13/2023 3:08 PM CDT Provider: Melvina Morrow APRN, CNP, 06/13/2023 3:08 [place] [address] [facility]#: [id number] PATIENT: Merry Rooney INPATIENT PSYCHIATRY WEEKEND PROGRESS NOTE DATE OF SERVICE: 06/13/2023 Chief complaint: Merry Rooney is seen today for inpatient follow-up for Bipolar II disorder() [F31.81] PTSD (post-traumatic stress disorder) [F43.10] Suicidal ideation [R45.851] Anxiety disorder, unspecified type [F41.9]. Subjective/Interval History: Please refer to nursing notes for details of recent behaviors. Today, the patient was on the unit, denied any physical ailments. States that Risperdal is not a good medication for her. It makes her dizzy and decreases her BP. Would like Buspar of Sertraline for managing anxiety. Mental Status Exam: Thought Content: No suicidal ideation, No violent ideation, No homicidal ideation, No paranoid ideation or delusional thought content elicited. Abnormal Perception: Denies auditory and visual hallucinations and does not appear distracted by internal stimuli. Mood (subjective report): good Affect (objective appearance): Reactive Plan of Care/Evaluation: Continue current medication regimen and treatment plan per primary psychiatric care team. Pertinent diagnoses/considerations: Patient Active Problem List Diagnosis Bipolar II disorder () Trauma and stressor-related disorder Asthma Chronic GERD Eclampsia Encounter for screening Essential hypertension in patient Herpes simplex History of depression Hypertension Iron deficiency Iron deficiency anemia Anxiety Acute encephalopathy Anxiety disorder, unspecified type Suicidal ideation VITAL SIGNS: Blood pressure 91/61, pulse 81, temperature 36.3 ??C (97.3 ??F), temperature source Oral, resp. rate 18, height 1.708 m (5' 7.24), weight 88.6 kg (195 lb 6.4 oz), SpO2 99 %. LAB RESULTS: No results found for this visit on 06/08/23 (from the past 24 hour(s)). MEDICATIONS: Current Facility-Administered Medications Medication Dose Route Frequency Provider Last Rate Last Admin hydrOXYzine (ATARAX;VISTARIL) tablet 25 mg 25 mg Oral hs prn Mervin Middleton MD 25 mg at 06/12/23 1928 tablet 1 tablet 1 tablet Oral hs Tiera Talbert PA-C 1 tablet at 06/12/231927 ferrous sulfate tablet 325 mg 325 mg Oral every other day Tiera Talbert PA-C 325 mg at 06/13/23 0824 hydrOXYzine (ATARAX;VISTARIL) tablet 10 mg 10 mg Oral q4h prn Mervin Middleton MD 10 mg at 06/13/23 124 risperiDONE (RISPERDAL) tablet 0.25 mg 0.25 mg Oral hs Mervin Middleton MD 0.25 mg at 06/09/232041 acetaminophen tablet 650 mg 650 mg Oral q6h prn Andrew Barraza APRN, CNP 650 mg at 06/13/23 0827 lamoTRIgine (LaMICtal) tablet 25 mg 25 mg Oral daily Andrew Barraza APRN, CNP 25 mg at 06/13/23 0824 propranolol (INDERAL) tablet 10 mg 10 mg Oral bid Andrew Barraza APRN, CNP 10 mg at 06/13/23 0824 busPIRone (BUSPAR) tablet 7.5 mg 7.5 mg Oral bid Andrew Barraza APRN, CNP 7.5 mg at 06/13/23 0824 VTE - Low Risk Does not apply protocol Josiah Martines APRN, CNP Signed: Melvina Morrow APRN, CNP, 06/13/2023 3:08 PM * Mona Hudson RN - 06/12/2023 10:30 PM CDT Nursing Note D: Pt was in CR with @ start of shift. Visit went well as per pt. Calm & cooperative. Did coloring work. Denies psych sx or pain. Pt allowed cell phone access for baby's pictures to stimulate adequate pump output in CR. Pt requested prn vistaril 25 mg for anxiety & sleep with HS meds. Pt refused scheduled risperidone 0.25 mg. Good appetite. Controlled behavior. A: Assessed mood, thought process, & behavior. 1:1 time offered. Encourage groups, administer medications. Provide reassurances & maintain safe environment. R: Neutral & appropriate affect. Compliant with medications. Controlled behavior. P: Continue to monitor & follow the care plan. * Humera Christiansen RN - 06/12/2023 3:11 PM CDT Problem: Inadequate Coping Goal: Demonstrates Ability to [place] Effectively Description: Patient is able to verbalize feelings related to emotional state. INTERVENTIONS: o Encourage verbalization of feelings, perceptions, fears, stressors, loss of loved ones o Encourage verbalization of problems out of their control o Encourage participation in care o Inform patient of all treatment/care prior to providing care o Collaborate with pastoral/spiritual care, social sciences chair, mental health counselor as needed Outcome: In progress Problem: Potential for Suicide Goal: Remain Free From Self Harm Description: INTERVENTIONS: o Assess suicide risk on admission and per hospital policy o Assess and monitor patient's mood and behaviors which may signal an increase in suicidal potential, statements such as I wish I were , acting recklessly, giving away personal possessions, or suicide notes o Assess patient for symptoms of post-traumatic stress disorder o Implement suicide precautions per hospital policy o Collaborate with interdisciplinary team and initiate plan and interventions as ordered o Provide and maintain a safe environment o Provide room close to nursing station o Visual checks per hospital policy o Sitter/family member in room with patient o Develop in writing or verbally a no self harm contract with patient o Ask family/caregiver if they have observed any suicidal preparations o Include patient/family/caregiver in decisions related to safety o Involve patient/family/caregiver in discharge planning process o Collaborate with pastoral/spiritual care, social sciences chair, mental health counselor as needed o Refer to community support groups Outcome: In progress Problem: Alterations in Thought Process Description: List psychotic symptoms - Hallucination - Thought blocking - Delusions - Disorganization Goal: Reverse/prevent/modify psychotic symptoms Description: - Patient will state psychotic symptoms are not interfering with their abiliity to process conversation at a minimum of once per shift. - Patient will report at least once per shift that their psychotic symptoms are less or at an acceptable level. - Patient will pursue interests and activities that have been important to them in the past. Outcome: In progress Nursing Note D: Patient has been visible in the lounge. Neutral/anxious mood.Denied pain or Covid symptoms. Denied hallucination, suicidal or homicidal ideations. Compliant with medications. Kept to self. Sat in the lounge and did some coloring. Pumped breast milk. Patient requested and received her phone to use while pumping breast milk as per order. Ate meals with good appetite. Made some calls. No behavioral concerns. Patient requested to talk to a provider about her iron levels. Med psych cross cover paged. A: Offered 1:1 time. Assessed and monitored mood, behavior, thought process. Medications given as per order. Offered support and encouragement, reassurance,. R: Polite and cooperative with cares. Compliant with medications. Kept to self. Behaviorally in control. P: Will continue to monitor per care plan. Shift compliance for patient maskin - Patient did not wear mask appropriately while in milieu Shift compliance for patient social distancin - Patient was out in milieu majority of shift Inpatient Psych COVID Screen Temperature: see vital signs Do you have a fever? No Do you have nasal congestion? No Do you have chills? No Do you have shortness of breath? No Do you have a cough? No Are you sneezing? No Do you have a sore throat? No Do you have nausea/vomiting or GI upset? No Do you have diarrhea? No * Jackie Mohr APRN, CNP - 06/12/2023 11:35 AM CDT Provider: Jackie Mohr APRN, CNP, 06/12/2023 11:35 [place] [address] [id number] PATIENT: Merry Rooney INPATIENT PSYCHIATRY WEEKEND PROGRESS NOTE DATE OF SERVICE: 06/12/2023 Chief complaint: Merry Rooney is seen today for inpatient follow-up for Bipolar II disorder() [F31.81] PTSD (post-traumatic stress disorder) [F43.10] Suicidal ideation [R45.851] Anxiety disorder, unspecified type [F41.9]. Subjective/Interval History: Please refer to nursing notes for details of recent behaviors. Today, the patient reports an okay mood but endorsed nightmares which impacts sleep negatively. Shewould have considered Prazosin but currently on propranolol and her BP occasionally trend low. Overall, sleep is a bit restful. Appetite is intact and adequate. She denies any physical ailments. Mental Status Exam: Thought Content: No suicidal ideation, No violent ideation, No homicidal ideation, No paranoid ideation or delusional thought content elicited. Abnormal Perception: Denies auditory and visual hallucinations and does not appear distracted by internal stimuli. Mood (subjective report): Okay Affect (objective appearance): Reactive, bright Plan of Care/Evaluation: Continue current medication regimen and treatment plan per primary psychiatric care team. Pertinent diagnoses/considerations: Patient Active Problem List Diagnosis Bipolar II disorder () Trauma and stressor-related disorder Asthma Chronic GERD Eclampsia Encounter for screening Essential hypertension in patient Herpes simplex History of depression Hypertension Iron deficiency Iron deficiency anemia Anxiety Acute encephalopathy Anxiety disorder, unspecified type Suicidal ideation VITAL SIGNS: Blood pressure 125/69, pulse 74, temperature 36.5 ??C (97.7 ??F), temperature source Oral, resp. rate 16, height 1.708 m (5' 7.24), weight 88.6 kg (195 lb 6.4 oz), SpO2 99 %. LAB RESULTS: Results for orders placed or performed during the hospital encounter of 06/08/23 (from the past 24 hour(s)) FERRITIN Result Value Ref Range Ferritin 18.9 13.0 - 150.0 ng/mL TRANSFERRIN (INCLUDES TIBC) Result Value Ref Range Transferrin 293 200 - 360 mg/dL IBC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 congruent. There was no evidence of hallucinations, delusions, or formal thought disorder.Thoughts: linear. No evidence of SI or HI. Judgment and insight appeared to be fair, although not formally assessed. Teto Scott, PhD, LP, 06/14/2023 1:12 PM * Cross Cover - Rosa Astudillo DO - 06/13/2023 9:18 AM CDT Images from the original note were not included. MED-PSYCH CONSULT CROSS-COVER BRIEF NOTE - PGY-2 Merry Quarles Toribio : 2000 Sex: female BP 108/65 (Cuff Location: Left Arm) Pulse 84 Temp 36.5 ??C (97.7 ??F) (Oral) Resp 18 Ht 1.708 m (5' 7.24) Wt 88.6 kg (195 lb 6.4 oz) SpO2 99% BMI 30.38 kg/m?? Paged: Patient requested to talk to a providerI keep having these headaches and dizziness BP 105/50 sitting pulse 82, BP 108/65 standing, pulse 84 Response: Patient Has a long history of microcytic anemia that has been worsened over the past few months since being /giving . Continues to experience dizziness, headaches, and light sensitivity. Patient previously seen by med-psych on 06/10 for similar complaint and given Imitrex, saidthis did not help. Recommend patient follow up with outpatient provider who knows her anemia history well, continue todrink more fluids, consume food with high levels of iron. Patient said in the past that Excedrin sometimes helps, but sometimes worsens anxiety/palpitations. Patient is wanting to try Excedrin so will order to see if there is improvement. Currently on ferrous sulfate 325 mg every other day. Would keep it as every other day as taking it daily has been shown to decrease iron absorption. Labs were drawn on 06/12 showing low iron (32), low iron saturation of 7%,normal ferritin. Rosa Astudillo DO PGY-2 [facility] * Nursing Assessment - Cyndie Gabriel RN - 06/13/2023 5:29 AM CDT Night Nursing Note D: Merry was asleep at shift start and appeared to be asleep throughout the night. Nurse woke her up at 03:00 am to pump breast milk. Merry declined and asked not to be woken up again. Asked her about 06:00 am for Pumping and she declined that as well. A: Observed every 15 minutes. Sleep status, safety and sleep duration monitored. R: Appeared to be asleep. Respirations regular while asleep. No medical or behavioral problems. Showed no signs of distress or discomfort. No interventions necessary. P: Continue to monitor, follow care plan, meet needs as expressed while awake. * Note - Jeannette Cueto IBCLC - 06/12/2023 3:50 PM CDT Patient is visiting with her when LC arrives. She states that milk output has not been goodstill and she's only getting 5-10mL per side per feeding. She also states that she found out she's not allowed to see her baby even for nursing. MURPHY says she will reach out to auto [employer] safety program coordinator to see if there can be an exception made, but didn't make any promises. The nurse on duty, Surendra So, said that he's all for it and thinks it's a great idea to try and help Mother's milk supply increase. Nurse gave LC director's contact to try and facilitate this to happen. LC will follow up on Tuesday after the holiday. Jeannette Cueto IBCLC, 06/12/2023 3:52 PM * Note - Jeannette Cueto IBCLC - 06/11/2023 4:22 PM CDT Merry Rooney Female, 23 y.o., 2000 Patient is writing in her journal when LC arrives. Mother remembers LC and is in good spirits. She states her milk is even less than it was yesterday. Mother is not able to look at her phone because her phone and she did not have a charger tester. She also doesn't feel comfortable pumping in the offered room from the staff due to the large windows and heavily male inpatient population. LC discussesusing a blanket to cover herself up and Mother says she doesn't have a nursing bra. MURPHY recommends using a mesh underwear to shape into a pumping bra. Patient asks if LC can talk to the nurse to see what to privileges with that are. Mother also states that the staff is not waking her up in the night to pump. She asks LC if they can talk to nurse about that as well. LC agrees and says they will try to figure out the situation andif it's due to mental health well-being. LC asks if is going to bring the baby to nurse. Mother says that she's not sure now and that she has to clear it with the staff. Mother states that hus band is going to visit tomorrow and will bring her phone charger tester. LC talked to nursing staff. Nurse says that he's passed on Patient's request to pump every shift heworks. He says tonight he'll put a note on the door so that everyone is aware Mother needs to be woken up to pump in the middle of the night. He also says he has the mesh underwear for Mother to fashion a pump bra as it's a common practice when patients don't have undergarments. MURPHY relayed information to Mother and confirms she'll follow up with Patient tomorrow afternoon. Plan is as follows: -Pumping every 3 hours -Drinking and eating more -Getting charger tester for phone to charge for pictures and videos of baby -Figuring out safe covering for comfort with pumping Jeannette Cueto IBCLC, 06/11/2023 4:30 PM * Note - Jeannette Cueto IBCLC - 06/10/2023 4:41 PM CDT MURPHY saw patient on B5 for support. Mother is exclusively pumping for her 5wo baby. She is not with her baby at the moment. She states she's pumping every 2-3 hours and is not getting much from the pump. She said she's going to see if her can visit daily or every other day with babyfor more skin to skin and nursing from the breast. She said her supply tanked when she was inpatient for a week without her baby. LC asks if she's eating and drinking enough and patient says she's not. LC encourages her to eat more if she can and order some protein shakes with her meals if possible. Patient states her is bringing her cookies and snacks from [employer] this evening. LC educates on oxytocin and asks if there's anything she can do while pumping to make her feel good. Mother states that she isn't allowed to have her phone. LC suggests maybe she could ask to look atpictures of her baby on her phone while she pumps to help milk flow. Patient asks LC if she can talk to staff on her behalf. LC talked to Mother's nurse. He states that it's possible for Mother to pump in a secure and safe room and use her phone for pictures and videos of baby only. She is not allowed to do other things onher phone. He said he will pass on this ability to the other nurses as well so that she can continue this privilege to see if it helps pumping. MURPHY will follow up with her over the weekend to see if anything is improving. Jeannette Cueto IBCLC, 06/10/2023 4:46 PM * Group Note - Teto Scott, PhD, LP - 06/10/2023 1:00 PM CDT INPATIENT PSYCHIATRY PSYCHOLOGY GROUP NOTE - SMART DOS: 06/10/23 Start: 1300 Stop: 1345 Duration: 45 minutes Type of Therapy: Group - SMART (Self-Management and Recovery Training) Group Members Present: 4 Group Content & Themes: Welcomed group members. Each member stated their name, what brought them to group, drug of choice if applicable, and how their recovery has been going. Introduced SMART, including the 4 Point system: Building and Maintaining Motivation, Coping with Cravings, Managing thoughts, feelings, and behaviors, and Living a balanced lifestyle. Group today focused on Points # 1 & 2: Building and Maintaining Motivation & Coping with Urges. The rationale for SMART recovery was introduced. The strategy of developing a Cost/Benefit analysis was introduced. Cravings and urges were defined and myths about urges were dispelled. Strategies for coping with urges were covered including: avoiding triggers, finding a moment of clarity, consi dering the negative consequences, etc. Personal examples were used to highlight aspects of the points discussed. All members participated in group. Individual Response to Group: Attended for partial (left briefly to meet with physician) duration and actively participated. Engaged in completion of SMART tool: change plan worksheet. Noted her change plan is centered on managing medical anxiety. Diagnoses per chart: Hx of ana-betsy mood and anxiety disorder Complex post-traumatic stress disorder R/o obsessive-compulsive disorder vs post- psychosis Bipolar disorder, unspecified vs cluster B traits Hx of opioid use disorder and alcohol use disorder, in sustained remission Pertinent medical diagnoses: Recent history of eclampsia w/ seizures Mental Status: The patient was pleasant and cooperative. Speech of normal rate and volume. Mood was on edge. Affect was generally bright. There was no evidence of hallucinations, delusions, or formal thought disorder. Thoughts: linear. No evidence of SI or HI. Judgment and insight appeared to be fair, although not formally assessed. Teto Scott, PhD, LP, 06/10/2023 1:59 PM * Nursing Assessment - Micha Yan Sr., RN - 06/10/2023 5:10 AM CDT Problem: Alterations in Thought Process Description: List psychotic symptoms - Hallucination - Thousught blocking - Delions - Disorganization Goal: Adequate Sleep/Rest Description: - Patient will sleep 6-8 hours per night - Patient will state he/she feels rested after each night's sleep. - Patient will state that nightmares are not a problem each morning. - Patient will not fall asleep while sitting in the TV room or lounge on all shifts. NURSING NOTE D/A: Patient was in bed at start of the shift, and appeared to have slept. Quiet and conducive environment was provided to promote sleep and monitored sleep pattern. Routine round check done every 15minutes for patient safety. Provided nourishment as needed. No prn medications was given. R:Slept most of the night P: Follow plan of care * Note - Yuko Lynn, IBCLC - 06/09/2023 1:42 PM CDT INPATIENT CONSULT Patient: Merry Rooney : 2000 Sex: female CONSULT SUMMARY: Merry Rooney is a 23 y.o. female who was seen for pumping and assistance. Merry's baby is one month old and is breastfed as well as bottle fed pumped milk and formula. Merry experienced a drop in milk supply during her first hospitalization and is working to increase it again; she currently gets around 1-1.5 oz at a time, and baby takes 3-4 oz bottles. Merry reports her baby is fussier at breast because the milk flow is slowed and she is used to bottle volumes. dispensed milk storage containers to patient and refrigerator to staff. counseled about frequent pumping including at night, hands-on pumping, paced bottle feeding. A lso recommended putting baby to breast after giving half of a feed by bottle- breast for dessert.LC encouraged the benefits of baby receiving half of her nutrition from mother's milk. Merry's demeanor was warm and engaged with the consult and she appears motivated to continue trying to maintain milk supply. Mother Assessment: WNL Mother's Feeding Goals: increase supply to approach excl BF as much as possible EQUIPMENT DISPENSED: Milk storage bottles Is a DME breast pump recommended per the feeding plan? yes Is mother at risk for engorgement? no Was mother taught how to use the DME breast pump? No- already using it FOLLOW-UP PLAN: Mother was given contact information and encouraged to call if she had questions or further concerns and needed to be seen in the Clinic. Thank you for involving me in the care of Merry Rooney. I will continue to follow along with you. Please do not hesitate to page if you have questions. ++++++++++++++++++++++++++++++++++++++++++++++++++++++++++++++++ APPRAISAL TECHNICIAN PRESENT? NO LANGUAGE: Burmese [50] MEDICATIONS: No current facility-administered medications on file prior to encounter. Current Outpatient Medications on File Prior to Encounter Medication Sig Dispense Refill Vit-Fe Fumarate-FA ( VITAMIN ORAL) Take 1 tablet by mouth daily valACYclovir (VALTREX) 500 mg oral TABS Take 2 Tablets (1,000 mg) by mouth once daily for 5 days for HSV outbreaks as needed ferrous sulfate 325 mg oral TABS Take 1 tablet by mouth daily NIFEdipine (PROCARDIA XL) 30 mg oral XL tablet Take 1 Tablet (30 mg) by mouth once daily before a meal. cyanocobalamin (VITAMIN B-12) 1000 mcg oral TABS Take 1 tablet (1,000 mcg) by mouth daily. ibuprofen (MOTRIN;ADVIL) 600 mg oral tablet Take 1 tablet (600 mg) by mouth every 6 hours if neededfor pain albuterol (VENTOLIN HFA;PROVENTIL HFA;PROAIR) 108 (90 BASE) mcg/act inhalation inhaler Inhale 1-2 puffs into the lungs every 4 hours as needed for wheezing or shortness of breath busPIRone (BUSPAR) 10 mg oral tablet Take 1 tablet (10 mg) by mouth twice daily. 60 tablet 2 propranolol (INDERAL) 10 mg oral TABS Take 1 tablet (10 mg) by mouth twice daily. 60 tablet 2 lamoTRIgine (LAMICTAL) 25 mg oral TABS Take 25mg daily for 2 weeks, 50mg daily for 2 weeks, then 100mg daily 42 tablet 0 OLANZapine (ZYPREXA) 2.5 mg oral TABS Take 2.5mg QAM and 5mg QHS 90 tablet 2 ALLERGIES: No Known Drug Allergies Total Time Spent 20 minutes; Counseling/Coordination/Education time 20 minutes. [facility] [phone] (MILK) * Nursing Assessment - Micha Yan Sr., RN - 06/09/2023 5:12 AM CDT Problem: Alterations in Thought Process Description: List psychotic symptoms - Hallucination - Thousught blocking - Delions - Disorganization Goal: Adequate Sleep/Rest Description: - Patient will sleep 6-8 hours per night - Patient will state he/she feels rested after each night's sleep. - Patient will state that nightmares are not a problem each morning. - Patient will not fall asleep while sitting in the TV room or lounge on all shifts. NURSING NOTE D/A: Patient was in bed at start of the shift, and appeared to have slept. Patient awoke at 0135 and came to the desk and complained of dizziness and weakness to bilateral arms. Hand grapes strong bilateral and able to raise both hands equally, denies numbness. Vital signs Temp 36.5, P 86, R 18, bp133/86, o2 sat 99%. Offered tylenol prn. Encouraged to let the nurse know if no relief and to update the team in the morning if further complains. Patient retired to bed and slept. Quiet and conducive environment was provided to promote sleep and monitored sleep pattern. Routine round check done every 15 minutes for patient safety. Provided nourishment as needed. R:Slept most of the night P: Follow plan of care * Nursing Assessment - Loki Santizo RN - 06/08/2023 9:53 PM CDT Nursing Assessment Head to Toe Head to Toe Assessment Shift Summary Shift Summary Neurologic/Cognitive Within Defined Limits HEENT Within Defined Limits Cardiac Within Defined Limits Respiratory Within defined limits Neurovascular Within Defined Limits Gastrointestinal Within Defined Limits Genitourinary Within Defined Limits Musculoskeletal Within Defined Limits Integumentary Within Defined Limits Psychosocial Assessment Within Defined Limits except for: Psychosocial Assessment: Observed Patient Behaviors: Anxious/afraid/apprehensive, frustrated, flat affect and quiet/withdrawn Verbalized Emotional State: Anxiety and depression Filed Vitals: 06/08/232017 BP: 122/73 Pulse: 62 Resp: 18 Temp: 36.4 ??C (97.5 ??F) Weight: 88.6 kg (195 lb 6.4 oz) A 23 yo female presented to APS for psychiatric admission, after she had been seen at the [facility] due to increased suicidal ideation. Patient anxious, but calm in control upon arrival to . Patient reports a istory of eclampsia following the April of her last child. She states that her BP issues have largely resolved & that she has not required medications in recent weeks. Patient repoted reported being borderline anemic during her & has been on Iron supplements. Patient on 72 hours hold * APS Note - Jam Hope RN - 06/08/2023 7:26 PM CDT Patient stated she will take her medications when she goes upstairs. * APS Note - Jam Hope RN - 06/08/2023 7:12 PM CDT Patient has been assigned to B5. Report will be given when unit is ready to receive her. * APS Note - Jam Hope RN - 06/08/2023 6:44 PM CDT Patient just woke. She said she was feeling better because she was able to get some sleep. She asked if she could use the breast pump, but one was never ordered. She said it was too soon to say if she felt suicidal because she just woke up. She asked to use the phone to call her so cordlessphone was provided. Patient will be admitted to inpatient psych this evening. Unsure which unit as of now. Will let receiving unit know to order breast pump so it isn't sent here when she is in transit to the receiving unit (as recommended by inpatient triage). * APS Note - Jam Hope RN - 06/08/2023 3:51 PM CDT Chart reviewed, care assumed. Patient is currently bed resting in HR#14. Plan is to admit to an inpatient psychiatric unit on a 72 hour hold which expires on 06/14/23 @ 1228. She has suicide and elopement precautions in place. * APS Note - Mary Alice Encarnacion RN - 06/08/2023 1:40 PM CDT Pt cooperative with rooming. Pleasant and cooperative. Denies current SI. C/o headache, PRN Tylenolgiven. Plan is to admit on 72 hr hold. documented in this encounter Plan of Treatment Not on file documented as of this encounter Procedures Procedure Name Priority Date/Time Associated Diagnosis Comments TRANSFERRIN (INCLUDES TIBC) Routine 06/12/2023 8:27 AM CDT IRON Routine 06/12/2023 8:27 AM CDT FERRITIN Routine 06/12/2023 8:27 AM CDT PANEL LIPID Routine 06/11/2023 8:[address] HEAD NO IV CONTRAST Routine 06/10/2023 5:34 PM CDT documented in this encounter Results * (ABNORMAL) IRON (06/12/2023 8:27 AM CDT) Iron 32(L) 35 - 145 mcg/dL [facility] Blood 06/12/2023 8:27 AM CDT 06/12/2023 8:50 AM CDT Mervin Middleton MD LABORATORY [facility] [address] [address] * (ABNORMAL) TRANSFERRIN (INCLUDES TIBC) (06/12/2023 8:27 AM CDT) Transferrin 293 200 - 360 mg/dL [facility] IBC 437 298 - 536 mcg/dL [facility] Iron Saturation Percent 7(L) 20 - 50 % [facility] Blood 06/12/2023 8:27 AM CDT 06/12/2023 8:50 AM CDT Mervin Middleton MD LABORATORY Performing Organization Address City/[facility] [[email or web address]] Co de Phone Number [facility] [address] [address] * FERRITIN (06/12/2023 8:27 AM CDT) Ferritin 18.9 13.0 - 150.0 ng/mL [facility] Comment: Test Performed by: [facility] [address] [place] [id number] Blood 06/12/2023 8:27 AM CDT 06/12/2023 8:50 AM CDT Mervin Middleton MD LABORATORY Performing Organization Address [facility] [[email or web address]] Co de Phone Number [facility] [address] [phone] * (ABNORMAL) PANEL LIPID (06/11/2023 8:44 AM CDT) HDL 46(L) >=50 mg/dL [facility] Comment: Interpretive Data Normal > 40 Male > 50 Female Cholesterol 152 <=200 mg/dL [facility] Comment: Interpretive Data <200 Desirable 200-239 Borderline high >=240 High Triglyceride 104 <=150 mg/dL [facility] Comment: Interpretive Data <150 Normal 150-199 Borderline high 200-499 High >=500 Very high Calc LDL 85 <=100 mg/dL [facility] Comment: Interpretive Data <100 Desirable 100-129 Above desirable 130-159 Borderline high 160-189 High >=190 Very high Non-HDL Cholesterol Calculated 106 <=130 mg/dL [facility] Comment: Interpretive Data <130 Desirable 130-159 Above desirable 160-189 Borderline high 190-219 High >=220 Very high Blood 06/11/2023 8:44 AM CDT 06/11/2023 9:10 AM CDT Narrative [facility] - 06/11/2023 9:35 AM CDT Fasting: Yes Mervin Middleton MD LABORATORY [facility] [address] [address] * CT HEAD NO IV CONTRAST (06/10/2023 5:34 PM CDT) Anatomical Region Laterality Modality Skull Computed Tomogra phy 06/10/2023 6:04 PM CDT Impressions 06/10/2023 11:31 PM CDT Impression: No acute intracranial abnormality. I have personally reviewed the image(s) and initial interpretation, and I agree with the findings as documented by the resident/fellow. Reading Radiologist: Ino Espinosa Reading Resident: Mervin Hawley 06/10/2023 11:[address] without contrast Indication: Headache, chronic, new features or increased frequency ??Memory loss ??recently (April 2023 complicated by eclampsia); increase in CUMMINS, dizziness, memory loss; seizure activity after giving ?? Technique: Axial thin section CT images through the brain were obtained from the base of the skull through the vertex without intravenous contrast and reviewed in brain, bone and subdural windows. Dose: Total DLP = 1312.2 mGy.cm. Comparison: None. Findings: There is no evidence of intracranial hemorrhage, mass effect, midline shift or abnormal extraaxial fluid collection. Normal appearance of the pituitary gland and hypophyseal fossa. The ventricles do not appear enlarged out of proportion to the cerebral sulci. Copeland-white differentiation is intact throughout both cerebral hemispheres. The bony calvarium and the bones of the skull base appear normal. The visualized portions of the paranasal sinuses and the mastoid air cells are clear. Review of visualized dentition does not reveal significant periapical dental disease. Procedure Note Ino Espinosa MD - 06/10/[address] without contrast Indication: Headache, chronic, new features or increased frequency Memoryloss recently (April 2023 complicated by eclampsia); increasein CUMMINS, dizziness, memory loss; seizure activity after giving Technique: Axial thin section CT images through the brain were obtainedfrom the base of the skull through the vertex without intravenous contrastand reviewed in brain, bone and subdural windows. Dose: Total DLP = 1312.2 mGy.cm. Comparison: None. Findings: There is no evidence of intracranial hemorrhage, mass effect,midline shift or abnormal extraaxial fluid collection. Normal appearanceof the pituitary gland and hypophyseal fossa. The ventricles do not appearenlarged out of proportion to the cerebral sulci. Copeland-whitedifferentiation is intact throughout both cerebral hemispheres. The bony calvarium and the bones of the skull base appear normal. Thevisualized portions of the paranasal sinuses and the mastoid air cells areclear. Review of visualized dentition does not reveal significantperiapical dental disease. IMPRESSION Impression: No acute intracranial abnormality. I have personally reviewed the image(s) and initial interpretation, and Iagree with the findings as documented by the resident/fellow. Reading Radiologist: Ino Espinosa Resident: Mervin Hawley Tiera Talbert PA-C RAD CT NEURO documented in this encounter Visit Diagnoses Diagnosis Bipolar II disorder ()- Primary Other bipolar disorders Suicidal ideation Bipolar II disorder () Other bipolar disorders Anxiety disorder, unspecified type PTSD (post-traumatic stress disorder) Posttraumatic stress disorder Anxiety disorder, unspecified type Suicidal ideation Trauma and stressor-related disorder documented in this encounter Admitting Diagnoses Diagnosis Anxiety disorder, unspecified type Suicidal ideation Bipolar II disorder () Other bipolar disorders documented in this encounter Administered Medications Inactive Administered Medications - up to 3 most recent administrations Medication Order MAR Action Action Date Dose Rate Site acetaminophen tablet 650 mg 650 mg, Oral, Q6H PRN, Starting on Tue06/08/23 at 1327, Until Tue06/15/23 at 1352, Mild Pain (Use First), Moderate Pain (Use First) Given 06/14/2023 3:32 AM CDT 650 mg Given 06/13/2023 8:27 AM CDT 650 mg Given 06/11/2023 7:13 PM CDT 650 mg busPIRone (BUSPAR) tablet 10 mg 10 mg, Oral, DAILY WITH LUNCH, First dose on Tue06/14/23 at 1245, Until Discontinued Given 06/14/2023 1:17 PM CDT 10 mg busPIRone (BUSPAR) tablet 7.5 mg 7.5 mg, Oral, BID, First dose on Tue06/08/23 at 2000, Until Discontinued Given 06/15/2023 9:10 AM CDT 7.5 mg Given 06/14/2023 8:06 PM CDT 7.5 mg Given 06/14/2023 9:04 AM CDT 7.5 mg DC MED REC REVIEW BY PHARMACY Discharge Date: 06/15/2023, Discharge Location: Home, Anticipated Discharge Time: 10 am - 2 pm, Discharge Medication Orders: DC Med Orders Final, Does not apply, PROTOCOL, Starting on Tue06/15/23 at 0921, Until Tue06/15/23 at 1352 ferrous sulfate tablet 325 mg 325 mg, Oral, QOD, First dose on Tue06/11/23 at 0800, Until Discontinued Given 06/15/2023 9:10 AM CDT 325 mg Given 06/13/2023 8:24 AM CDT 325 mg Given 06/11/2023 8:44 AM CDT 325 mg hydrOXYzine (ATARAX;VISTARIL) tablet 10 mg 10 mg, Oral, Q4H PRN, Starting on Tue06/09/23 at 1259, Until Tue06/15/23 at 1352, Anxiety Given 06/13/2023 12:42 PM CDT 10 mg Given 06/11/2023 12:17 PM CDT 10 mg Given 06/09/2023 8:42 PM CDT 10 mg hydrOXYzine (ATARAX;VISTARIL) tablet 25 mg 25 mg, Oral, BEDTIME PRN, Starting on Tue06/10/23 at 0849, Until Tue06/15/23 at 1352, insomnia Given 06/12/2023 7:28 PM CDT 25 mg Given 06/11/2023 7:11 PM CDT 25 mg Given 06/10/2023 9:39 PM CDT 25 mg lamoTRIgine (LaMICtal) tablet 25 mg 25 mg, Oral, DAILY, First dose on Tue06/09/23 at 0800, Until Discontinued Given 06/14/2023 9:04 AM CDT 25 mg Given 06/13/2023 8:24 AM CDT 25 mg Given 06/12/2023 8:56 AM CDT 25 mg lamoTRIgine (LaMICtal) tablet 50 mg 50 mg, Oral, DAILY, First dose (after last modification) on Tue06/15/23 at 0800, Until Discontinued Given 06/15/2023 9:10 AM CDT 50 mg melatonin tablet 1 mg 1 mg, Oral, BEDTIME PRN, Starting on Tue06/14/23 at 1418, Until Tue06/15/23 at 1352, Sleep Given 06/14/2023 8:06 PM CDT 1 mg OLANZapine (ZyPREXA) tablet 5 mg 5 mg, Oral, BEDTIME, First dose on Tue06/08/23 at 1999, Until Discontinued Given 06/08/2023 8:18 PM CDT 5 mg tablet 1 tablet 1 tablet, Oral, BEDTIME, First dose on Tue06/10/23 at 1999, Until Discontinued Given 06/14/2023 8:06 PM CDT 1 tablet Given 06/13/2023 7:21 PM CDT 1 tablet Given 06/12/2023 7:28 PM CDT 1 tablet propranolol (INDERAL) tablet 10 mg 10 mg, Oral, BID, First dose on Tue06/08/23 at 1999, Until Discontinued Given 06/14/2023 9:04 AM CDT 10 mg Given 06/13/2023 7:21 PM CDT 10 mg Given 06/13/2023 8:24 AM CDT 10 mg risperiDONE (RISPERDAL) tablet 0.25 mg 0.25 mg, Oral, BEDTIME, First dose on Tue06/09/23 at 1999, Until Discontinued Given 06/09/2023 8:42 PM CDT 0.25 mg SUMAtriptan (IMITREX) tablet 50 mg 50 mg, Oral, ONE TIME PRN, 1 dose, Starting on Tue06/10/23 at 1453, Until Tue06/10/23 at 1633, Headache Given 06/10/2023 4:33 PM CDT 50 mg VTE - Low Risk Low Risk Reason: Ambulating greater than 200m Twice Daily, Does not apply, PROTOCOL, Starting on Tue06/08/23 at 2211, Until Tue06/15/23 at 1352 documented in this encounter Active and Recently Administered Medications Times are shown in CDT. Scheduled Medication Order 06/13/2023 06/14/2023 06/15/2023 busPIRone (BUSPAR) tablet 10 mg 10 mg, Oral, DAILY WITH LUNCH, First dose on Tue06/14/23 at 1245, Until Discontinued 1317 (Given - Provider: Binu Street RN) busPIRone (BUSPAR) tablet 7.5 mg 7.5 mg, Oral, BID, First dose on Tue06/08/23 at 2000, Until Discontinued 823 (Given - Provider: Humera Christiansen RN)1920 (Given - Provider: Humera Christiansen RN) 903 (Given - Provider: Binu Street RN)2005 (Given - Provider: Amelia Benavides RN) 909 (Given - Provider: Eryn Romero RN) [place] MED REC REVIEW BY PHARMACY(Linked Group 1) Discharge Date: 06/15/2023, Discharge Location: Home, Anticipated Discharge Time: 10 am - 2 pm, Discharge Medication Orders: DC Med Orders Final, Does not apply, PROTOCOL, Starting on Tue06/15/23 at 0921, Until Tue06/15/23 at 1352 ferrous sulfate tablet 325 mg 325 mg, Oral, QOD, First dose on Tue06/11/23 at 0800, Until Discontinued 823 (Given - Provider: Humera Christiansen RN) 909 (Given - Provider: Eryn Romero RN) lamoTRIgine (LaMICtal) tablet 25 mg (CANCELED) 25 mg, Oral, DAILY, First dose on Tue06/09/23 at 0800, Until Discontinued 823 (Given - Provider: Humera Christiansen RN) 903 (Given - Provider: Binu Street RN) lamoTRIgine (LaMICtal) tablet 50 mg 50 mg, Oral, DAILY, First dose (after last modification) on Tue06/15/23 at 0800, Until Discontinued 909 (Given - Provider: Eryn Romero RN) tablet 1 tablet 1 tablet, Oral, BEDTIME, First dose on Tue06/10/23 at 2000, Until Discontinued 1920 (Given - Provider: Humera Christiansen RN) 2005 (Given - Provider: Amelia Benavides RN) propranolol (INDERAL) tablet 10 mg 10 mg, Oral, BID, First dose on Tue06/08/23 at 2000, Until Discontinued 823 (Given - Provider: Humera Christiansen RN)1920 (Given - Provider: Humera Christiansen RN) 903 (Given - Provider: Binu Street RN)2007 (Refused - Provider: Amelia Benavides RN) 906 (Refused - Provider: Eryn Romero RN - Comment: Patient stated that medication makes her blood pressure too low.) VTE - Low Risk(Linked Group 2) Low Risk Reason: Ambulating greater than 200m Twice Daily, Does not apply, PROTOCOL, Starting on Tue06/08/23 at 2211, Until Tue06/15/23 at 1352 PRN Medication Order 06/13/2023 06/14/2023 06/15/2023 acetaminophen tablet 650 mg 650 mg, Oral, Q6H PRN, Starting on Tue06/08/23 at 1327, Until Tue06/15/23 at 1352, Mild Pain (Use First), Moderate Pain (Use First) 0827 (Given - Provider: Humera Christiansen RN) 0332 (Given - Provider: Sharon Camarillo RN) hydrOXYzine (ATARAX;VISTARIL) tablet 10 mg 10 mg, Oral, Q4H PRN, Starting on Anais 06/09/23 at 1259, Until Tue06/15/23 at 1352, Anxiety 1242 (Given - Provider: Shakila Smith RN) hydrOXYzine (ATARAX;VISTARIL) tablet 25 mg 25 mg, Oral, BEDTIME PRN, Starting on Tue06/10/23 at 0849, Until Tue06/15/23 at 1352, insomnia melatonin tablet 1 mg 1 mg, Oral, BEDTIME PRN, Starting on Tue06/14/23 at 1418, Until Tue06/15/23 at 1352, Sleep 2005 (Given - Provider: Amelia Benavides RN) Linked Groups Order Group 1: DC MED REC REVIEW BY PHARMACYJump to med Discharge Date: 06/15/2023
Discharge Location: Home
Anticipated Discharge Time: 10 am - 2 pm
Discharge Medication Orders: DC Med Orders Final
Does not apply, PROTOCOL, Starting on Tue06/15/23 at 0921, Until Tue06/15/23 at 1352 And Discharge Med Rec Final Review by Pharmacy (COMPLETED) Routine, Order to be placed by provider after medications have been entered for discharge and are ready for review by Pharmacist. This order can be placed multiple times if changes or additions have been made to medications for discharge. Choose the Preliminary DC Med Rec review when placing orders prior to the day of discharge. Choose Final DC Med Rec when all medication changes have been entered. If DC Med Rec needed now, please page the Pharmacist covering the patient to inform them.
Discharge Date: 06/15/2023
Discharge Location: Home
Anticipated Discharge Time: 10 am - 2 pm Group 2: VTE - Low RiskJump to med Low Risk Reason: Ambulating greater than 200m Twice Daily
Does not apply, PROTOCOL, Starting on Tue06/08/23 at 2211, Until Tue06/15/23 at 1352 And VTE - Low Risk Communication (CANCELED) ONCE, On Tue06/08/23 at 2215, For 1 occurrence
Low Risk Reason: Ambulating greater than 200m Twice Daily
Patient at low risk for VTE; neither mechanical nor chemical prophylaxis is required documented in this encounter Additional Health Concerns Assessment Noted Time PHQ-9 Depression Total Score: 19 023 4:26 PM CDT PHQ-2 Depression Total Score: 3 06/02/20 23 4:26 PM CDT documented as of this encounter
--- OUTSIDE RECORDS SUMMARY | 2023-10-20 07:08 | XMS_ITS | Encounter Summary ---
Author Name Unknown Organization [facility] Address [address] [place] [id number] Phone Care Team Providers Care Sr. Manager Name Role Phone Unavailable Primary Care Provider Unavailabl e Reason for Visit * Prior Authorization (Routine) - Closed Specialty Diagnoses / Procedures Referred By Contac t Referred To Contact Psych Rehab Diagnoses Bipolar II disorder () Trauma and stressor-related disorder Procedures [employer] ENRO[employer]MENT Jazmine Potter, [facility] [address] [place] [id number] [address] Referral ID Status Reason Start Date Expiration Date Visits Re quested Visits Authorized [id number] Closed 05/09/2023 06/24/[phone] Encounter Details Date Type Department Care Team Description 06/22/2023 1:45 PM CDT [facility] [address] [place] [address] [id number] Karoline Benson MD [address] [facility] [address] [place], [place] [phone] Dh, Mother Baby Discharge Disposition: Discharged to [...] encounter Miscellaneous Notes * Group Note - Jazmine Potter LICSW - 06/22/2023 1:45 PM CDT Dept: [facility] Type of Service: Group Therapy Name of Group: Psychoeducation/Skills Group Provider/Group Office Service Coordinator: Jazmine Potter LICSW Date of Service: 06/22/2023 Start Time: 1:45 PM Stop Time: 2:30 PM Number of Group Members Present: 4 Location of Service: Face to Face at [facility] DISK GRINDER SERVICES PROVIDED (if applicable): No Session Content (Intervention): The purpose of this group was to provide education through information-sharing and facilitated group discussion. Handouts were provided and covered in detail. Skills taught today included: Understanding Grief and Loss The patient???s response to the intervention (including observations of the patient and their readiness to learn): Patient presented as engaged. The patient did demonstrate readiness to learn both verbally and non-verbally. The patient did demonstrate understanding of the material as evidenced by sharing own experience, participating in the group discussion, and non-verbals (i.e., nodding head in agreement) . Barriers to learning: No Other observations: N/A Jazmine Potter LICSW, 06/22/2023 2:27 PM documented in this encounter Plan of Treatment Not on file documented as of this encounter Visit Diagnoses Diagnosis Bipolar II disorder ()- Primary Other bipolar disorders Anxiety disorder, unspecified type Trauma and stressor-related disorder documented in this encounter Additional Health Concerns Assessment Noted Time PHQ-9 Depression Total Score: 19 023 4:26 PM CDT PHQ-2 Depression Total Score: 3 06/02/20 23 4:26 PM CDT documented as of this encounter
--- OUTSIDE RECORDS SUMMARY | 2023-10-20 07:08 | XMS_ITS | Encounter Summary ---
Author Name Unknown Organization [facility] Address [address] [place] [address] Phone Care Team Providers Care Counter Professional Name Role Phone Unavailable Primary Care Provider Unavailabl e Reason for Visit * Prior Authorization (Routine) - Closed Specialty Diagnoses / Procedures Referred By Contac t Referred To Contact Psych Rehab Diagnoses Bipolar II disorder () Trauma and stressor-related disorder Procedures MOTHER BABY ENROLLMENT Jazmine Potter, [facility] [address] [place] [id number] [address] Referral ID Status Reason Start Date Expiration Date Visits Re quested Visits Authorized [id number] Closed 05/09/2023 06/24/[phone] Encounter Details Date Type Department Care Team Description 06/22/2023 9:30 AM CDT [facility] [address] [place] [address] [phone] Karoline Benson MD 701 [facility] [address] [place], [place] [phone] Dh, Mother Baby Discharge Disposition: Discharged to [...] Group Note - Claire Workman LPCC - 06/22/2023 9:30 AM CDT Dept: [facility] Type of Service: Group Therapy Name of Group: Psychoeducation/Skills Group Provider/Group Core Fitter: Claire Workman LPCC Date of Service: 06/22/2023 Start Time: 9:30 AM Stop Time: 10:15 AM Number of Group Members Present: 4 Location of Service: Face to Face at [facility] Session Content (Intervention): Welcomed any new [...] group interaction. Skills taught today included: Understanding Grief and Loss, Understanding Shame and Guilt, and Self-Compassion The patient???s response to the [...] No Other observations: N/A Claire Workman LPCC, 06/22/2023 12:58 PM documented in this encounter Plan of [...]
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
--- OUTSIDE RECORDS SUMMARY | 2023-10-20 07:08 | XMS_ITS | Encounter Summary ---
Author Name Unknown Organization [facility] Address [address] [place] [id number] Phone Care Team Providers Care Scrubber System Attendant Name Role Phone Unavailable Primary Care Provider Unavailabl e Reason for Visit * Prior Authorization (Routine) - Closed Specialty Diagnoses / Procedures Referred By Contac t Referred To Contact Psych Rehab Diagnoses Bipolar II disorder () Trauma and stressor-related disorder Procedures MOTHER BABY ENROLLMENT Jazmine Potter, [facility] [address] [place] [address] [address] Referral ID Status Reason Start Date Expiration Date Visits Re quested Visits Authorized [id number] Closed 05/09/2023 06/24/[phone] Encounter Details Date Type Department Care Team Description 06/20/2023 12:30 PM CDT [facility] [address] [place] [id number] Karoline Benson MD [address] [facility] [address] [place], [place] [phone] Dh, Mother Baby Discharge Disposition: Discharged to [...] encounter Miscellaneous Notes * Group Note - Alisha Hardy OTR/L - 06/20/2023 12:30 PM CDT Dept: [facility] Type of Service: Group Therapy Name of Group: Wellness Group Provider/Group Health And Human Performance Professor: Alisha Hardy OTR/L Date of Service: 06/20/2023 Start Time: 12:45 PM Stop Time: 1:30 PM Number of Group Members Present: 4 Location of Service: Face to Face at [facility] [employer] GOODS DRILLING MACHINE OPERATOR SERVICES PROVIDED (if applicable): No Session Content (Intervention): Education was provided using the SAMHSA 8 Dimensions of Wellness with the goal of assisting patients to lead a healthy and fulfilling life. Group discussion was facilitated, and materials were provided and covered in detail. The Dimension of Wellness covered today: emotional. The patient???s response to the intervention (including observations of the patient and their readiness to learn): Patient presented as engaged. The patient did demonstrate readiness to learn both verbally and non-verbally. The patient did demonstrate understanding of the material as evidenced by sharing own experience and participating in the group discussion. Barriers to learning: No Other observations: Education review was provided on creative activities and relationship to mentalwellness. Briefly reviewed armenta mind skill from Dialectical Behavior Therapy handout, noting that armenta mind is often the result of balancing our doing and being. Patients checked in with response to the Rani August quote Unlike self-criticism which asks if you're good enough, self-compassion asks, 'what's good for you?' in terms of an active self- compassion task or affirmation. Patients sharedcurrent task or one they plan to engage in with a plan to continue determining what brings elementsof dawson, sense of accomplishment and development of desired life roles. Patients have been provided handouts describing these skills in detail. Patient connected with group members on challenging perfectionism and identified a self-care activity for the evening. Alisha Hardy OTR/Malik, 06/20/2023 3:04 PM documented in this encounter Plan of Treatment Not on file documented as of this encounter Visit Diagnoses Diagnosis Bipolar II disorder ()- Primary Other bipolar disorders documented in this encounter Additional Health Concerns Assessment Noted Time PHQ-9 Depression Total Score: 19 023 4:26 PM CDT PHQ-2 Depression Total Score: 3 06/02/20 23 4:26 PM CDT documented as of this encounter
--- OUTSIDE RECORDS SUMMARY | 2023-10-20 07:08 | XMS_ITS | Encounter Summary ---
Author Name Unknown Organization [facility] Address [address] [place] [phone] Phone Care Team Providers Care Concrete Pourer Name Role Phone Unavailable Primary Care Provider Unavailabl e Reason for Visit * Prior Authorization (Routine) - Closed Specialty Diagnoses / Procedures Referred By Contac t Referred To Contact Psych Rehab Diagnoses Bipolar II disorder () Trauma and stressor-related disorder Procedures MOTHER BABY ENROLLMENT Jazmine Potter, [facility] [address] [place] [id number] [address] Referral ID Status Reason Start Date Expiration Date Visits Re quested Visits Authorized [id number] Closed 05/09/2023 06/24/[phone] Encounter Details Date Type Department Care Team Description 06/22/2023 12:30 PM CDT [facility] [address] [place] [phone] Karoline Benson MD [address] [facility] [address] [place], [place] [phone] Dh, Mother Baby Discharge Disposition: Discharged to [...] Group Note - Alisha Hardy OTR/L - 06/22/2023 12:30 PM CDT Dept: [facility] Type of Service: Group Therapy Name of Group: Wellness Group Provider/Group Nurse Midwife: Alisha Hardy OTR/L Date of Service: 06/22/2023 Start Time: 12:45 PM Stop Time: 1:30 PM Number of Group Members Present: 5 Location of Service: Face to Face at [facility] TRADE MARK ATTORNEY SERVICES PROVIDED (if applicable): No Session Content (Intervention): Education was provided using the SAMHSA 8 Dimensions of Wellness with the goal of assisting patients to lead a healthy and fulfilling life. Group discussion was facilitated, and materials were provided and covered in detail. The Dimension of Wellness covered today: emotional-self soothing DBT skills, IMPROVE and ACCEPTS along with self-soothing activity. The patient's response to the intervention (including observations of the client and their readiness to learn): Patient presented as engaged and active. The patient did demonstrate readiness to learnboth verbally and non-verbally. The patient did demonstrate understanding of the material as evidenced by applying technique to personal example. Barriers to learning: No. Additional Observations of Individual Group Member: Patient participated in discussion of DBT Skills to tolerate distress including using the five senses for self-soothing, using imagry and visualization to manage difficult moments. Patient engaged with group members in creating items for a self-soothing kit and reflected on the experience. Patient demonstrated significant knowledge and understanding of this skill but tends to find it hard to put into practice under stressful circumstances. Alisha Hardy OTR/L, 06/23/2023 4:14 PM documented in this encounter Plan of [...]
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
--- OUTSIDE RECORDS SUMMARY | 2023-10-20 07:08 | XMS_ITS | Encounter Summary ---
Author Name Unknown Organization [facility] Address [address] [place] [phone] Phone Care Team Providers Care Space Systems Operations Manager Name Role Phone Unavailable Primary Care Provider Unavailabl e Reason for Visit * Prior Authorization (Routine) - Closed Specialty Diagnoses / Procedures Referred By Contac t Referred To Contact Psych Rehab Diagnoses Bipolar II disorder () Trauma and stressor-related disorder Procedures MOTHER BABY ENROLLMENT Jazmine Potter, [facility] [address] [place] [address] [address] Referral ID Status Reason Start Date Expiration Date Visits Re quested Visits Authorized [id number] Closed 05/09/2023 06/24/[phone] Encounter Details Date Type Department Care Team Description 06/16/2023 1:45 PM CDT Psych [facility] [address] [place] [address] [phone] Karoline Benson MD [address] [facility] [address] [place], [place] [phone] Dh, Mother Baby Discharge Disposition: Discharged to [...] Group Note - Claire Workman LPCC - 06/16/2023 1:45 PM CDT Dept: [facility] Family [facility] Type of Service: Group Therapy Name of Group: Psychoeducation/Skills Group Provider/Group Rolloff Truck Driver: Claire Workman LPCC Date of Service: 06/16/2023 Start Time: 1:45 PM Stop Time: 2:30 PM Number of Group Members Present: 6 Location of Service: Face to Face at [facility] Session Content (Intervention): The purpose of this group was to provide education through information-sharing and facilitated group discussion. Handouts were provided and covered in detail. Skills taught today included: Social Emotional Education (describe Weekend planning) The patient???s response to the intervention (including [...] No Other observations: N/A Claire Workman LPCC, 06/16/2023 3:24 PM documented in this encounter Plan of [...]
--- OUTSIDE RECORDS SUMMARY | 2023-10-20 07:08 | XMS_ITS | Encounter Summary ---
Author Name Unknown Organization [facility] Address [address] [place] [address] Phone Care Team Providers Care Data Processing Control Clerk Name Role Phone Unavailable Primary Care Provider Unavailabl e Reason for Visit * Reason Comments Psych Medication Management Encounter Details Date Type Department Care Team Description 06/16/2023 10:00 AM CDT Psych Rehab [facility] [address] [place], [place] [phone] Karoline Benson MD 701 [facility] [address] [place], [place] [phone] Psych Medication Management Discharge Disposition: Discharged to [...] Progress Notes * Karoline Benson MD - 06/16/2023 10:00 AM CDT Images from the original note were not included. [facility], Psychiatry Visit Started the [facility] on: 05/09/23 (admitted to [facility] Psychiatry 06/08-06/15/23) Merry Rooney is a 23 y.o. mother of baby (Aidan born 05/03/23) and 2 year old son (Chuy). Referred by [facility] inpatient initially to the [facility]. Also admitted while she was in the program to [facility] ([place], [place]) 05/24-05/30/23. Cultural Context: white, Northern Irish and Kyrgyz Pronouns: she/her/hers; Supports: Espinosa -- supportive Therapist: ; PCP: ; OB-MUSEUM ATTENDANT: Antonio Ob; Dulser: Feeding Method: mainly formula because milk supply [...] while she was in the program to [facility] ([place], [place]) 05/24- 05/30/23. Multiple, recent ED visits for physical sx of anxiety as well as SI - mainly to [place] ED (see 06/02/[address] Esposito for recent summary of ED courses). Admitted to [facility] Psychiatry 06/08-06/15/23) Diagnostic Impression(s) Bipolar II Disorder, current episode depressed, severe with psychotic symptoms PTSD and (Complex Developmental Trauma) Unspecified anxiety (intrusive thoughts) Opioid and alcohol use disorders, by history Multiple closed head injuries and hx of seizure preeclampsia Assessment [place], caring, resilient 23 y.o. mother of 2 following a harrowing course with psychotic symptoms and possible preeclampsia leading to transfer to [facility] ICU. Longitudinal course consistent with Complex Developmental Trauma and bipolar spectrum leading to a psychiatric admission ( 05/24- to [facility]) and recent admission to 06/08-06/15/23 [facility]. Improved depression and no current suicidal ideation. She has clear strengths including her warmth, drive, capacity for empathy and reflection, and strong commitment to parent well. Plan 1) Discussed safety and treatment plan 2) MEDICATIONS: Buspar 7.5AM 10 afternoon and 7.5 HS ferrous sulfate 325 mg Tabs lamoTRIgine 25 mg titration vit-fe sulfate-fa 27-0.8 MG Tabs sertraline 50 mg tablet Risks and benefits reviewed including use while nursing (she is using both breast and formula) 3) Iron deficiency: taking oral iron and vit C, and will check with her PCP about possibility of iviron (has symptoms --SOB, dizziness, arm and leg numbness, and sleep symptoms) 4) Will cont [facility]. 5) Discharge planning. Intervening History Recent admission to [facility] Psychiatry reviewed -- 06/08-06/15/23 Today -I feel anxious. I still have intrusve thoughts about what if I do something myself but there not as intense. Has insight that they are irrational thoughts and able to acknowledge them them and know that's my fight or flight. I force myself to slow down -- counting, or doing a body scan -Continues to have PTSD symptoms and difficulty falling and staying asleep. -Feels safe there, but my body is constantly convinced that it's not. Breathing helps. -No firearms and kitchen knives are all put away. -Staying at her partner's step parents. -Still having a hard time falling and staying asleep. -Taking meds as prescribed. Feels the Buspar has been helpful for her anxiety. Current meds: Buspar 7.5AM 10 afternoon and 7.5 HS Sertraline 50mg Lamictal 50mg AM Admission on 06/08/2023, Discharged on 06/15/2023 Component [...] 150.0 ng/mL Final Comment: Test Performed by: [facility] Laboratory [address] [place] [id number] Transferrin 06/12/2023 293 200 - 360 mg/dL [...] when she was 4. Mother lived in [place]. 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 Legal: no had involvement with the legal system. The patient reports the following spiritual and/or cultural history: Northern Irish and Kyrgyz background Relationship to her partner/father/co-parent of the child : after short time knowing each other. He's supportive. Mental Status Exam Appearance: Dressed appropriately for weather Behavior/relationship to examiner/demeanor: Cooperative, Engaged, and Pleasant. Motor activity/EPS: Normal Gait: Normal Speech rate: Normal Speech volume: Normal Speech articulation: Normal Speech coherence: Normal Speech spontaneity: Normal Mood: depressed, anxious Affect: mood congruent, full and reactive [...]
--- OUTSIDE RECORDS SUMMARY | 2023-10-20 07:08 | XMS_ITS | Encounter Summary ---
Author Name Unknown Organization [facility] Address [address] [place] [phone] Phone Care Team Providers Care Leather Cutter Name Role Phone Unavailable Primary Care Provider Unavailabl e Reason for Visit * Prior Authorization (Routine) - Closed Specialty Diagnoses / Procedures Referred By Contac t Referred To Contact Psych Rehab Diagnoses Bipolar II disorder () Trauma and stressor-related disorder Procedures MOTHER BABY ENROLLMENT Jazmine Potter, [facility] [address] [place] [address] [address] Referral ID Status Reason Start Date Expiration Date Visits Re quested Visits Authorized [id number] Closed 05/09/2023 06/24/2023 105 105 Encounter Details Date Type Department Care Team Description 06/16/2023 11:00 AM CDT [facility] [address] [place] [address] [phone] Karoline Benson MD 701 [facility] [address] [place], [place] [phone] Dh, Mother Baby Discharge Disposition: Discharged to [...] encounter Miscellaneous Notes * Group Note - Sara Cunha PT - 06/16/2023 11:00 AM CDT Dept: [facility] Type of Service: Group Therapy Provider/Group Technology Director: Sara Cunha PT Date of Service: 06/16/2023 Start Time: 11:00 AM Stop Time: 12:00 PM Number of Group Members Present: 5 Name of Group: Movement Location of Service: Face to Face at a [facility] DIRECTOR OF TEACHING AND LEARNING SERVICES PROVIDED (if applicable): No Session Content (Intervention) (including goal/intended outcome): Mindful Movement. Encouraged group members to participate in mind-body skills facilitated by [facility] Trauma-Informed Yoga providers. Trauma-sensitive mind-body skills and practice were used to safely experiment with connecting with one's body. Movement included practicing - breathing, moving, strengthening and resting.Group members were invited to check in and notice their bodies. The psychoeducation topic related to the mind-body skills today was restorative movement and relaxation practices. The patient's response to the intervention: Patient presented as engaged and passive. The patient did participate fully in the activity. Observations of Individual Group Member: participated silently from her chair Sara Cunha PT, 06/16/2023 12:32 PM documented in this encounter Plan of [...]
--- OUTSIDE RECORDS SUMMARY | 2023-10-20 07:08 | XMS_ITS | Encounter Summary ---
Author Name Unknown Organization [facility] Address [address] [place] [address] Phone Care Team Providers Care Process Safety Management Engineer Name Role Phone Unavailable Primary Care Provider Unavailabl e Reason for Visit * Prior Authorization (Routine) - Closed Specialty Diagnoses / Procedures Referred By Contac t Referred To Contact Psych Rehab Diagnoses Bipolar II disorder () Trauma and stressor-related disorder Procedures MOTHER BABY ENROLLMENT Jazmine Potter, [facility] [address] [place] [address] [phone] [address] Referral ID Status Reason Start Date Expiration Date Visits Re quested Visits Authorized [id number] Closed 05/09/2023 06/24/2023 105 105 Encounter Details Date Type Department Care Team Description 06/20/2023 1:45 PM CDT [facility] [address] [place] [phone] Karoline Benson MD [address] [facility] [address] [place], [place] [phone] Dh, Mother Baby Discharge Disposition: Discharged to [...] Group Note - Jazmine Potter LICSW - 06/20/2023 1:45 PM CDT Dept: [facility] Family [facility] Type of Service: Group Therapy Name of Group: Psychoeducation/Skills Group Provider/Group Shroudman: Jazmine Potter LICSW Date of Service: 06/20/2023 Start Time: 1:45 PM Stop Time: 2:30 PM Number of Group Members Present: 3 Location of Service: Face to Face at [facility] CERAMIC DESIGNER SERVICES PROVIDED (if applicable): No Session Content (Intervention): The purpose of this group was to provide education through information-sharing and facilitated group discussion. Handouts were provided and covered in detail. Skills taught today included: DBT Distress Tolerance skills of TIPP and Other Mindfulness Educationor Practice (describe Progressive Muscle Relaxation), Behavioral Activation, Mood Momentum The patient???s response to the intervention (including observations of the patient and their readiness to learn): Patient presented as engaged. The patient did demonstrate readiness to learn both verbally and non-verbally. The patient did demonstrate understanding of the material as evidenced by providing an example, sharing own experience, participating in the group discussion, and non-verbals (i.e., nodding head in agreement) . Barriers to learning: No Other observations: N/A Jazmine Potter LICSW, 06/20/2023 2:31 PM documented in this encounter Plan of Treatment Not on file documented as of this encounter Visit Diagnoses Diagnosis Bipolar II disorder ()- Primary Other bipolar disorders Trauma and stressor-related disorder Anxiety disorder, unspecified type documented in this encounter Additional Health Concerns Assessment Noted Time PHQ-9 Depression Total Score: 19 023 4:26 PM CDT PHQ-2 Depression Total Score: 3 06/02/20 23 4:26 PM CDT documented as of this encounter
--- OUTSIDE RECORDS SUMMARY | 2023-10-20 07:08 | XMS_ITS | Encounter Summary ---
Author Name Unknown Organization [facility] Address [address] [place] [address] Phone Care Team Providers Care Social Worker Health Services Name Role Phone Unavailable Primary Care Provider Unavailabl e Reason for Visit * Prior Authorization (Routine) - Closed Specialty Diagnoses / Procedures Referred By Contac t Referred To Contact Psych Rehab Diagnoses Bipolar II disorder () Trauma and stressor-related disorder Procedures MOTHER BABY ENROLLMENT Jazmine Potter, [facility] [address] [place] [address] [address] Referral ID Status Reason Start Date Expiration Date Visits Re quested Visits Authorized [id number] Closed 05/09/2023 06/24/[phone] Encounter Details Date Type Department Care Team Description 06/22/2023 10:15 AM CDT [facility] [address] [place] [phone] Karoline Benson MD 701 [facility] [address] [place], [place] [phone] Dh, Mother Baby Discharge Disposition: Discharged to [...] Note - Claire Workman LPCC - 06/22/2023 10:15 AM CDT Dept: [facility] Family [facility] Type of Service: Group Therapy Name of Group: Psychotherapy Process Group Provider/Group Home Care Liaison: Claire Workman LPCC Date of Service: 06/22/2023 Start Time: 10:15 AM Stop Time: 11:00 AM Number of Group Members Present: 5 Location of Service: Face to Face at [facility] Session Content of Today's Group: At the start of this group, participants were invited to check inby identifying themselves, describing their current emotional status, and identifying issues to address in this group. Topics addressed included pressure to make progress in mental health, intrusive thoughts, and body-based regulation. The targeted goal and objective: To increase functioning by decreasing mental health symptoms that impact the ability to make safe choices Decrease frequency/intensity/duration of worry The patient's response to the intervention (including any plans to change the treatment if deemed ineffective): Kristina shared feeling, really paranoid, noting she worries about having a diagnosis of bipolar disorder or OCD. She reports some compulsive behaviors and states she has been googling OCD, incessantly. She states her intrusive thoughts have increased as well. She and the group discussed coping strategies for intrusive thoughts, including naming them and creating separation from herself as well as body-based regulation; Kristina stated she would try this and it felt doable. Observations of Individual Group Member: MENTAL STATUS EXAMINATION: Appearance: No apparent distress, Casually groomed, and Dressed appropriately for weather Behavior/relationship to examiner/demeanor: Cooperative, Engaged, and Pleasant Motor activity/EPS: Normal Speech rate: Normal Speech volume: Normal Speech articulation: Normal Speech coherence: Normal Speech spontaneity: Normal Mood (subjective report): Neutral, Anxious Affect (objective appearance): Appropriate/mood-congruent, Anxious/Nervous Thought [...] Trauma and stressor-related disorder Claire Workman LPCC, 06/22/2023 12:58 PM documented [...]
--- OUTSIDE RECORDS SUMMARY | 2023-10-20 07:08 | XMS_ITS | Encounter Summary ---
Author Name Unknown Organization [facility] Address [address] [place] [address] Phone Care Team Providers Care Holiday Detector Operator Name Role Phone Unavailable Primary Care Provider Unavailabl e Reason for Visit * Reason Onset Date Comments Mother Baby - Mental Health Outreach 06/17/2023 Encounter Details Date Type Department Care Team Description 06/17/2023 Telephone [facility] Family [facility] [address] [place], [place] [phone] Regina Romero MHW [address] [place] [address] Mother Baby - Mental Health Outreach Social [...] Telephone Encounter - Regina Romero MHW - 06/17/2023 11:48 AM CDT Left a vm just checking in. Requested a cb if needed. Lor Romero Mental Health Worker Mother-Baby Program documented in this encounter Plan of Treatment Not on file documented as of this encounter Visit Diagnoses Not on filedocumented in this encounter Additional Health Concerns Assessment Noted Time PHQ-9 Depression Total Score: 19 023 4:26 PM CDT PHQ-2 Depression Total Score: 3 06/02/20 23 4:26 PM CDT documented as of this encounter
--- OUTSIDE RECORDS SUMMARY | 2023-10-20 07:08 | XMS_ITS | Encounter Summary ---
Author Name Unknown Organization [facility] Address [address] [place] [address] Phone Care Team Providers Care Certified Mortician Name Role Phone Unavailable Primary Care Provider Unavailabl e Reason for Visit * Reason Comments Mother Baby - Individual Psychotherapy * Prior Authorization (Routine) - Closed Specialty Diagnoses / Procedures Referred By Bernardo t Referred To Contact Psych Rehab Diagnoses Bipolar II disorder () Trauma and stressor-related disorder Procedures MOTHER BABY ENROLLMENT Jazmine Potter, [facility] [address] [place] [address] [address] Referral ID Status Reason Start Date Expiration Date Visits Re quested Visits Authorized [id number] Closed 05/09/2023 06/24/2023 105 105 Encounter Details Date Type Department Care Team Description 06/20/2023 2:30 PM CDT Psych Rehab [facility] [address] [place] [address] [phone] Claire Workman, PSYCHIATRIC [address] [place], [place] [phone] Mother Baby - Individual Psychotherapy Discharge Disposition: Discharged to home or self [...] as of this encounter Progress Notes * Ji Claire Garcia, PSYCHIATRIC - 06/20/2023 2:30 PM CDT [facility] for Family [facility] Progress Note Date of Service: 06/20/2023 Start Time: 2:30 pm Stop Time: 3 pm Location of Visit: Face to Face at [facility] Participants in this Visit other than the patient/provider included: N/A Type of Therapy: Individual, Modality: Emotion Focused Therapy, Motivational Interviewing, and Narrative Therapy Session #: 4 For Calendar year: 2022 Diagnoses: 1. Bipolar II disorder () 2. Trauma and stressor-related disorder Interventions used this session: Reassessed emotional status. Provided support and opportunity to explore and express feelings and reactions. Discussed treatment directions. Will continue to follow as needed. Session Content: Kristina states, My intrusive thoughts are getting a lot better, they're really few and far between. She reports more ability to challenge and to separate herself from intrusive thoughts. She notes that mindfulness has also helped her and has helped to reduce her anxiety, reporting that previously it had felt, out of control. She reports that she cared for baby all night over the weekend and that it went well, and that she has continued to have consistent protected sleep as Mother-Baby team has emphasized. She and clinician discussed discharge plan and plan for further services, including [facility] Psychotherapy outpatient services. Patient Response to Intervention (including any plans to change the treatment if deemed ineffective): Patient presented as engaged and active. The patient did demonstrate understanding as evidenced by other: engaging in session throughout . Observations of patient (including any changes to mental or physical symptoms if indicated): Observations of Individual: MENTAL STATUS EXAMINATION: Appearance: No apparent distress, [...] self-harm/self-Injury, and thoughts of harm to others. Most Recent C-SSRS Calculated C-SSRS Risk Score (Since Last Contact): No Risk Identified - Provide treatment per regular standard of care, complete SAFE-T assessment only if needed based on clinical judgment (:25 PM) Stage of change: Preparation Progress Toward Treatment Plan Goals: Progressing. Treatment goal addressed: To increase functioning by decreasing mental health symptoms that impact the ability to make safe choices Objective targeted: Decrease frequency/intensity/duration of worry Plan: 1. Psychotherapy: Continue with this provider in , then transition to [facility] Psychotherapy provider; therapy homework = n/a 2. Psychiatric care: Continue with providers, then transition to [facility] Psychotherapy prescriber 3. Utilize emergency resources (APS, COPE) if needed; Safety Plan created and in effect Claire Workman LPCC, 06/20/23, 3:14 PM documented in this encounter Plan of [...]
--- OUTSIDE RECORDS SUMMARY | 2023-10-20 07:08 | XMS_ITS | Encounter Summary ---
Author Name Unknown Organization [facility] Address [address] [facility] [place] [address] Phone Care Team Providers Care Crane Mechanic Name Role Phone Unavailable Primary Care Provider Unavailabl e Reason for Visit * Reason Comments Mother Baby - Family Session * Auth/Cert (Routine) Specialty Diagnoses / Procedures Referred By Contac t Referred To Contact PSYCHIATRY Diagnoses Bipolar II disorder () PTSD (post-traumatic stress disorder) Suicidal ideation Anxiety disorder, unspecified type Ildefonso Aviles MD [address] [place] [address] Psychiatry 3 Inpt (B5) 701 [facility] B5.[address] [place] [address] Referral ID Status Reason Start Date Expiration Date Visits Re quested Visits Authorized [id number] 1 1 Encounter Details Date Type Department Care Team Description 06/15/2023 3:30 PM CDT Telemedicine [facility] [address] [place], [place] [phone] Noy Chen, NUISANCE WILDLIFE CONTROL OPERATOR 701 [facility] [place], [place] [phone] Mother Baby - Family Session Discharge Disposition: Discharged to home or self [...] as of this encounter Progress Notes * Noy Chen, NUISANCE WILDLIFE CONTROL OPERATOR - 06/15/2023 3:30 PM CDT [facility] Progress Note Date of Service: 06/15/2023 Start Time: 3:30pm Stop Time: 4:30pm Location of Visit: Telemedicine: [employer] Video Visit: This telemedicine visit is conducted by audio and video technology between thepatient and provider. Informed consent was provided during e-check in and signed by patient. Patient was offered opportunity to ask any questions. Patient's Physical Location: Vehicle Provider's Physical Location: Onsite at [facility] Participants in this Visit other than the patient/provider included: Patient's partner. Pt was not present during today's visit. PHYSICIAN ASSISTANT SERVICES PROVIDED (if applicable): No Type of Therapy: Family, Modality: Cognitive Behavioral Therapy, Motivational Interviewing, Narrative Therapy, and Psychodynamic Therapy Session #: 1 For Calendar year: 2022 Diagnoses: Bipolar II BRANDON Complex Trauma Interventions used this session: Provided psychoeducation regarding impact of trauma on health and emotions and how to obtain psychological resources if needed after discharge. Provided support and opportunity to explore and express feelings and reactions. Explored the nature of worries/fears and developed adaptive coping responses. Discussed treatment directions. Session Content: Today was a family session without patient. Patient's , P., was present today. He notes feelings of overwhelm given family situation and parenting two children. Partner shared parts of his ownhistory, including his mental health history, denying any current safety concerns. Treatment directions discussed. Partner notes interest in learning more about longer term, more sustainable supports. This clinician will meet partner again next week. Patient Response to Intervention (including any plans to change the treatment if deemed ineffective): Patient presented as engaged. The patient did demonstrate understanding as evidenced by applying technique to personal example. Observations of patient (including any changes to mental or physical symptoms if indicated): MSE within Normal Limits Stage of change: Action Progress Toward Treatment Plan Goals: Learning and Progressing. Treatment goal addressed: Utilizing external supports Objective targeted: Ensuring partner and patient are utilizing supports at this time Plan: 1. Psychotherapy: Pt to continue in [facility] programming; partner to engage in brief, individual support through MB team to ensure he and partner are best supported at this time 2. Psychiatric care: Dr. Benson/Dr. Mejia 3. Utilize emergency resources (APS, COPE) Noy Chen LICSW, 06/17/2023 11:03 AM documented in this encounter Plan of Treatment Not on file documented as of this encounter Visit Diagnoses Diagnosis Bipolar II disorder ()- Primary Other bipolar disorders BRANDON (generalized anxiety disorder) Generalized anxiety disorder Trauma and stressor-related disorder documented in this encounter Additional Health Concerns Assessment Noted Time PHQ-9 Depression Total Score: 19 023 4:26 PM CDT PHQ-2 Depression Total Score: 3 06/02/20 23 4:26 PM CDT documented as of this encounter
--- OUTSIDE RECORDS SUMMARY | 2023-10-20 07:08 | XMS_ITS | Encounter Summary ---
Author Name Unknown Organization [facility] Address [address] [place] [address] Phone Care Team Providers Care Detention Sergeant Name Role Phone Unavailable Primary Care Provider Unavailabl e Reason for Visit * Prior Authorization (Routine) - Closed Specialty Diagnoses / Procedures Referred By Contac t Referred To Contact Psych Rehab Diagnoses Bipolar II disorder () Trauma and stressor-related disorder Procedures MOTHER BABY ENROLLMENT Jazmine Potter, [facility] [address] [place] [address] [address] Referral ID Status Reason Start Date Expiration Date Visits Re quested Visits Authorized [id number] Closed 05/09/2023 06/24/2023 105 105 Encounter Details Date Type Department Care Team Description 06/22/2023 3:00 PM CDT [facility] [address] [place], [place] [address] oNy Chen, [facility] 701 [place], [place] [phone] Karoline Benson MD 701 [facility] [address] [place], [place] [address] Discharge Disposition: Discharged to home or self [...] this encounter Progress Notes * Noy Chen, [facility] - 06/22/2023 3:00 PM CDT [facility] Progress Note Date of Service: 06/22/2023 Start Time: 3pm Stop Time: 4pm Location of Visit: Face to Face at [facility] Participants in this Visit other than the patient/provider included: Patient's partner. Pt was not present during today's visit. SECURITY SUPPORT ANALYST SERVICES PROVIDED (if applicable): No Type of Therapy: Family, Modality: Cognitive Behavioral Therapy, Motivational Interviewing, Narrative Therapy, and Psychodynamic Therapy Session #: 2 For Calendar year: 2022 Diagnoses: Bipolar II [...] patient. Patient's , P., was present today. Partner reports patient appears to be in a better place now than she has these past several weeks and they are anticipating pt to graduate this week. Partner reports his own interest in engaging in supports to continue to be able to be there for partner, but also children. He reflected on how he was raised and notes he'd like to do things differently for his children. Treatment directions discussed and partner was made aware that today would be the last session we have together due to pt graduation. Partner notes interest in learning more about longer term, more sustainable supports, which were discussed at length and insurance information was discussed and provided. Partner encouraged to reach out to MB/this clinician with follow up questions or concerns, especially regarding finding a provider for himself. Partner consented to an email being sent with moreinformation about DAD supports and VA information. Again encouraging partner to reach out if needed. Email sent: [email or web address] Patient Response to Intervention (including any plans [...] Plan: 1. Psychotherapy: Pt to continue in [facility] programming; partner to engage in brief, individual support through MB team to ensure he and partner are best supported at this time 2. Psychiatric care: Dr. Benson/Dr. Mejia 3. Utilize emergency resources (APS, COPE) Noy Chen LICSW, 06/24/2023 10:00 AM documented in this encounter Plan of [...]
--- OUTSIDE RECORDS SUMMARY | 2023-10-20 07:08 | XMS_ITS | Encounter Summary ---
Author Name Unknown Organization [facility] Address [address] [place] [address] Phone Care Team Providers Care Conformal Pad Former Name Role Phone Unavailable Primary Care Provider Unavailabl e Reason for Visit * Prior Authorization (Routine) - Closed Specialty Diagnoses / Procedures Referred By Contac t Referred To Contact Psych Rehab Diagnoses Bipolar II disorder () Trauma and stressor-related disorder Procedures MOTHER BABY ENROLLMENT Jazmine Potter, [facility] [address] [place] [address] [address] [address] [address] Referral ID Status Reason Start Date Expiration Date Visits Re quested Visits Authorized [id number] Closed 05/09/2023 06/24/2023 105 105 Encounter Details Date Type Department Care Team Description 06/16/2023 9:30 AM CDT [facility] [address] [place] [phone] Karoline Benson MD [address] [facility] [address] [place], [place] [phone] Dh, Mother Baby Discharge Disposition: Discharged to [...] PM CDT documented as of this encounter Plan of Treatment Not on file documented as of this encounter Visit Diagnoses Not on filedocumented in this encounter Additional Health Concerns Assessment Noted Time PHQ-9 Depression Total Score: 19 023 4:26 PM CDT PHQ-2 Depression Total Score: 3 06/02/20 23 4:26 PM CDT documented as of this encounter
--- OUTSIDE RECORDS SUMMARY | 2023-10-20 07:08 | XMS_ITS | Encounter Summary ---
Author Name Unknown Organization [facility] Address [address] [place] [address] Phone Care Team Providers Care Knockup Worker Name Role Phone Unavailable Primary Care Provider Unavailabl e Reason for Visit * Prior Authorization (Routine) - Closed Specialty Diagnoses / Procedures Referred By Contac t Referred To Contact Psych Rehab Diagnoses Bipolar II disorder () Trauma and stressor-related disorder Procedures MOTHER BABY ENROLLMENT Jazmine Potter, [facility] [address] [place] [address] [address] Referral ID Status Reason Start Date Expiration Date Visits Re quested Visits Authorized [id number] Closed 05/09/2023 06/24/2023 105 105 Encounter Details Date Type Department Care Team Description 06/20/2023 11:00 AM CDT [facility] [address] [place] [phone] Karoline Benson MD 701 [facility] S[address] [place], [place] [address] Dh, Mother Baby Discharge Disposition: Discharged to [...] Group Note - Claire Workman LPCC - 06/20/2023 11:00 AM CDT Dept: [facility] Family [facility] Type of Service: Group Therapy Name of Group: Psychoeducation/Skills Group Provider/Group Shovel Handle Assembler: Claire Workman LPCC Date of Service: 06/20/2023 Start Time: 11:15 AM Stop Time: 12:00 PM Number of Group Members Present: 3 Location of Service: Face to Face at [facility] Session Content (Intervention): The purpose of this group was to provide education through information-sharing and facilitated group discussion. Handouts were provided and covered in detail. Skills taught today included: Parenting Education (describe [employer] Chapter 7) The patient???s response to the intervention (including [...] No Other observations: N/A Claire Workman LPCC, 06/20/2023 1:46 PM documented in this encounter Plan of [...]
--- OUTSIDE RECORDS SUMMARY | 2023-10-20 07:09 | XMS_ITS | Encounter Summary ---
Author Name Unknown Organization [facility] Address [address] [place] [address] Phone Care Team Providers Care Outsewer Name Role Phone Unavailable Primary Care Provider Unavailabl e Reason for Visit * Reason Comments Mother Baby - Family Session * Prior Authorization (Routine) - Closed Specialty Diagnoses / Procedures Referred By Bernardo t Referred To Contact Psych Rehab Diagnoses Bipolar II disorder () Trauma and stressor-related disorder Procedures MOTHER BABY ENROLLMENT Jazmine Potter, [facility] [address] [place] [address] [address] Referral ID Status Reason Start Date Expiration Date Visits Re quested Visits Authorized [id number] Closed 05/09/2023 06/24/[phone] Encounter Details Date Type Department Care Team Description 06/01/2023 9:00 AM CDT Psych Rehab [facility] [address] [place] [address] [phone] Claire Workman, [facility] [address] [place] [address] [id number] Mother Baby - Family Session Discharge Disposition: Discharged to home or self care (routine discharge) Social History Tobacco Use Types Packs/Day Years Used Date Smoking Tobacco: Unknown PHQ-2 Answer Date Recorded PHQ-2 Subtotal 3 [...] of this encounter Progress Notes * Claire Workman, [facility] - 06/01/2023 9:00 AM CDT [facility] Progress Note Date of Service: 06/01/2023 Start Time: 9 am Stop Time: 9:30 am Location of Visit: Face to Face at [facility] Participants in this Visit other than the patient/provider included: Pt's , son, daughter present Type of Therapy: Family, Modality: Emotion Focused Therapy, Motivational Interviewing, and Narrative Therapy Session #: 1 For Calendar year: 2022 Diagnoses: 1. Bipolar II disorder () 2. Trauma and stressor-related disorder Interventions used this session: Reassessed emotional status. Provided support and opportunity to explore and express feelings and reactions. Reviewed progress in treatment and gains made. Discussed treatment directions. Will continue to follow as needed. Session Content: Kristina and P were present along with their two young children. Kristina processed her recent hospitalization, naming that before hospitalization she felt intense anxiety, I was dizzy, heart racing... I felt pretty out of touch. She reports that intrusive thoughts intensify along with heightened anxiety, and states that before hospitalization she experienced vivid images of harm coming to herself and her children. She also named feeling paranoia before hospitalization, including feeling that the doctors in the emergency room were planning to hurt her and feeling her was a threat to her. She and clinician and created a safety plan, naming that if she experiences the above symptoms, is isolating herself, feels dizzy or clammy or out of it, is more irritable or has less impulse control or having intrusive thoughts, she will go to her room or on the balcony at their apartment or sit in their car, all safe places fo rher. She identified her and her mother as i ndividuals she could reach out to. She and her agreed to attempt to check in twice a day with one of these occurring before bed in attempt to help them feel more joined while feeling the stress of caring for two young and high- needs children. She and her agreed at end of session that safety plan feels adequate and they are both comfortable with Kristina at home. Patient Response to Intervention (including any plans to change the treatment if deemed ineffective): Patient presented as engaged and active. The patient did demonstrate understanding as evidenced by practicing the skill in session. Observations of Patient: MENTAL STATUS EXAMINATION: Appearance: No apparent distress, Casually groomed, and Dressed appropriately for weather Behavior/relationship to examiner/demeanor: Cooperative, Engaged, and Distressed Motor activity/EPS: Normal Speech rate: Normal Speech volume: Normal Speech articulation: Normal Speech coherence: Normal Speech spontaneity: Normal Mood (subjective report): Neutral Affect (objective appearance): Anxious/Nervous Thought Process (Associations): [...] only if needed based on clinical judgment (05/18/2023 2:36 PM) Stage of change: Action Progress Toward Treatment Plan Goals: Progressing. Treatment goal addressed: To increase functioning by decreasing mental health symptoms that impact the ability to make safe choices Objective targeted: Decrease frequency/intensity/duration of worry Plan: 1. Psychotherapy: Continue with this clinician in ; therapy homework = n/a 2. Psychiatric care: providers 3. Utilize emergency resources (APS, COPE) if needed; Safety Plan in effect and pt has copy Claire Workman, [facility], 05/18/2023 3:15 PM documented in this encounter Plan of [...]
--- OUTSIDE RECORDS SUMMARY | 2023-10-20 07:09 | XMS_ITS | Encounter Summary ---
Author Name Unknown Organization [facility] Address [address] [place] [address] Phone Care Team Providers Care Junior Brand Manager Name Role Phone Unavailable Primary Care Provider Unavailabl e Encounter Details Date Type Department Care Team Description 05/31/2023 Telephone [facility][note 3] for Family [facility] [address] [place], [place] [address] Kiana Borges RN [facility] [address] [place] [address] Social History Tobacco Use Types Packs/Day Years Used Date Smoking Tobacco: Unknown PHQ-2 Answer Date Recorded PHQ-2 Subtotal 2 05/18/2023 Sex and Gender Information Value Date Recorded Sex Assigned at Female 05/06/2023 2:19 PM CDT Gender Identity Female 05/06/2023 2:19 PM CDT Sexual Orientation Not on file documented as of this encounter Miscellaneous Notes * Telephone Encounter - Kiana Borges RN - 05/31/2023 1:09 PM CDT Pt called and requested to speak with resume writer. Pt reported she has an appt with a doctor on , yet doesn't know if she should wait or be seen sooner. Pt states she the hospital she was recentlydischarged from was a behavioral health center and did not address her physical symptoms. Pt reports she has been having a headache and right sided eye pain along with trails in her vision.Pt also reports she has been experiencing twitching that started in her hands and now happens all over her body. Pt reports this started about 5 days ago. Pt also reports she has been experiencing heart palpitations. She states she has had heart palpitations in the past, yet these are worse than before. She described them occurring when she lays down and when asked, she reports she also feels dizzy. Pt denies ever passing out, yet states I have seen some spots though. Pt was encouraged to be evaluated today, either in in urgent care or emergency room. Pt verbalized an understanding. Notified Dr. Mejia. documented in this encounter Plan of Treatment Not on file documented as of this encounter Visit Diagnoses Not on filedocumented in this encounter Additional Health Concerns Assessment Noted Time PHQ-9 Depression Total Score: 12 023 3:14 PM CDT PHQ-2 Depression Total Score: 2 05/18/20 23 3:14 PM CDT documented as of this encounter
--- OUTSIDE RECORDS SUMMARY | 2023-10-20 07:09 | XMS_ITS | Encounter Summary ---
Author Name Unknown Organization [facility] Address [address] [facility] [place] [address] Phone Care Team Providers Care Dust Operator Name Role Phone Unavailable Primary Care Provider Unavailabl e Reason for Visit * Reason Onset Date Comments Mother Baby - Mental Health Outreach 06/03/2023 Encounter Details Date Type Department Care Team Description 06/03/2023 Telephone [facility] Family [facility] [address] [place], [place] [address] Claire Workman, [facility] [address] [facility] [place], [place] [phone] Mother Baby - Mental Health Outreach Social [...] Miscellaneous Notes * Telephone Encounter - Claire Workman, [facility] - 06/03/2023 12:57 PM CDT Called pt to check in, pt states she is in ER due to gallbladder concerns. She and clinician processed frustration over pt's multiple physical health concerns that have arisen recently. She expressedconcern over her partner's burnout when caring for children, and she and clinician again reviewed options for respite care/support from family. She stated she has no concerns for children's wellbeingwhile in partner's care. Clinician encouraged pt to ask to schedule a session with her (andpossibly pt) next week for his own support; she stated she would do this. Pt reports her anxiety has decreased significantly after beginning Buspar prescription yesterday. Plan: Pt to ask to schedule session with clinician next week. documented in this encounter Plan of Treatment Not on file documented as of this encounter Visit Diagnoses Not on filedocumented in this encounter Additional Health Concerns Assessment Noted Time PHQ-9 Depression Total Score: 19 023 4:26 PM CDT PHQ-2 Depression Total Score: 3 06/02/20 23 4:26 PM CDT documented as of this encounter
--- OUTSIDE RECORDS SUMMARY | 2023-10-20 07:09 | XMS_ITS | Encounter Summary ---
Author Name Unknown Organization [facility] Address [address] [place] [phone] Phone Care Team Providers Care Heater Mechanic Name Role Phone Unavailable Primary Care Provider Unavailabl e Reason for Visit * Prior Authorization (Routine) - Closed Specialty Diagnoses / Procedures Referred By Contac t Referred To Contact Psych Rehab Diagnoses Bipolar II disorder () Trauma and stressor-related disorder Procedures MOTHER BABY ENROLLMENT Jazmine Potter, [facility] [address] [place] [address] [address] Referral ID Status Reason Start Date Expiration Date Visits Re quested Visits Authorized [id number] Closed 05/09/2023 06/24/2023 105 105 Encounter Details Date Type Department Care Team Description 05/23/2023 1:45 PM CDT [facility] [address] [place] [address] [phone] Karoline Benson MD 701 [facility] [address] [place], [place] [phone] Dh, Mother Baby Discharge Disposition: Discharged to [...] Group Note - Jazmine Potter LICSW - 05/23/2023 1:45 PM CDT Dept: [facility] Type of Service: Group Therapy Name of Group: Psychoeducation/Skills Group Provider/Group Line Erector: Jazmine Potter LICSW Date of Service: 05/23/2023 Start Time: 1:45 PM Stop Time: 2:30 PM Number of Group Members Present: 5 Location of Service: Face to Face at [facility] MED DIR SERVICES PROVIDED (if applicable): No Session Content (Intervention): The purpose of this group was to provide education through information-sharing and facilitated group discussion. Handouts were provided and covered in detail. Skills taught today included: stress exploration and management. Completed worksheet and reviewed as a group. The patient???s response to the intervention (including [...] No Other observations: N/A Jazmine Potter LICSW, 05/23/2023 2:48 PM documented in this encounter Plan of [...]
--- OUTSIDE RECORDS SUMMARY | 2023-10-20 07:09 | XMS_ITS | Encounter Summary ---
Author Name Unknown Organization [facility] Address [address] [place] [address] Phone Care Team Providers Care Bicycle Rental Clerk Name Role Phone Unavailable Primary Care Provider Unavailabl e Reason for Visit * Reason Onset Date Comments Follow-up 05/27/2023 Encounter Details Date Type Department Care Team Description 05/27/2023 Telephone [facility] Family [facility] [address] [place], [place] [phone] Kiana Borges RN [facility] [address] [place] [address] Follow-up Social History Tobacco Use Types Packs/Day Years Used Date Smoking Tobacco: Unknown PHQ-2 Answer Date Recorded PHQ-2 Subtotal 2 05/18/2023 Sex and Gender Information Value Date Recorded Sex Assigned at Female 05/06/2023 2:19 PM CDT Gender Identity Female 05/06/2023 2:19 PM CDT Sexual Orientation Not on file documented as of this encounter Miscellaneous Notes * Telephone Encounter - Kiana Borges RN - 05/27/2023 11:20 AM CDT Pt called the clinic to update staff that she has been hospitalized in [place] at [facility]. Pt stated They have stated I have had a brief psychotic episode/ psychosis. I am hoping to be back next week, if not the next week. Pt stated the team may reach out next week, she is willing to sign a MERY if needed. Pt stated she is feeling better and has been able to sleep. She does report she has been bleeding more and is waiting to be worked up for this as she is also feeling tired and dizzy. Pt encouraged to reach out if she has any further questions or concerns and Pt verbalized an understanding. Will update team. documented in this encounter Plan of Treatment Not on file documented as of this encounter Visit Diagnoses Not on filedocumented in this encounter Additional Health Concerns Assessment Noted Time PHQ-9 Depression Total Score: 12 023 3:14 PM CDT PHQ-2 Depression Total Score: 2 05/18/20 23 3:14 PM CDT documented as of this encounter
--- OUTSIDE RECORDS SUMMARY | 2023-10-20 07:09 | XMS_ITS | Encounter Summary ---
Author Name Unknown Organization [facility] Address [address] [place] [phone] Phone Care Team Providers Care Inflated Ball Molder Name Role Phone Unavailable Primary Care Provider Unavailabl e Encounter Details Date Type Department Care Team Description 05/23/2023 10:00 AM CDT Psych Rehab [facility] [address] [place] [phone] Ray Esposito MD [address] [phone] Discharge Disposition: Discharged to home or self [...] Progress Notes * Ray Esposito MD - 05/23/2023 10:00 AM CDT 05/23/2023 [facility] ([facility]) Medication follow-up. Patient seen in-person today. Medical records reviewed (Epic). Recent clinical status discussed with therapy staff. Start time: 10:00 a.m. Finish time: 10:30 a.m. Interviewed in-person in [facility] today. Seen together with her baby daughter. Is noted to be attentive to her new-born, breast feeding her. Reports difficulties getting to sleep - though says that once asleep she is usually able to fairly easily get back to sleep - even after feeding. On 05/22/23 did take a further Risperdal tablet - but now describes that with additional Risperidone she experienced a worsening of her symptoms. Specifically waves of anxiety and and a certain difficulty because of feeling her body tingly. Some increase in racing thoughts and heart palpitations are also noted - as well as distinct feelings of restlessness and an inability to relax - (suggestive of possible akathesia ?). Is reluctant to have Seroquel re-started, and states she's unable to tolerate Abilify. In other respects appears to have been coping fairly well - (though did make a visit to her local ER because of these recent difficulties). Mood has otherwise improved - not any longer suicidal. Reports that she checks her BP several times daily - and that for the most part she has not needed to take Nifedipine (though does still take occasionally when BP becomes elevated). States that she remains on Guanfacine (prescribed long-term for ADHD) - and that she finds it very helpful in controlling her hyperactivity. Mental status Cooperative, alert. Engages readily, good eye contact. Gait normal. Self-care good. Speech normal in volume and rate - not pressured. Associations intact. Thought content - no psychotic material, denies AH, VH. No delusional material. Mood is anxious (see above) - but denies having any current suicidal thoughts or plan. No grandiosesymptoms. Affect is mood-congruent. Insight is fair. Current judgment fair. Appears fully oriented in 3 spheres. Concentration and attention span are adequate for purpose of interview. Recent and remote memory are intact. Diagnosis - reported history of bipolar disorder (though patient herself seems somewhat uncertain re this diagnosis) - mood disorder - history of ADHD - history of CHT and seizure - history of cumulative trauma - recent history of hypertension during - ? Pre-eclampsia Plan: extensive discussion of potential side-effects today - with the possibility of akathesia considered - thus, on a trial basis the immediate plan will be to withhold Risperidone and substitute Hydroxyzine 25 mg at hs for management of sleep pattern (prescription called in to [facility] in [place]) - continue Guanfacine (and Nifedipine basically on a prn basis). Ray Esposito M.D. documented in this encounter Miscellaneous Notes * Group Note - Jazmine Potter LICSW - 05/23/2023 10:00 AM CDT Dept: [facility] Type of Service: Group Therapy Name of Group: Psychoeducation/Skills Group Provider/Group Education And Outreach Coordinator: Jazmine Potter LICSW Date of Service: 05/23/2023 Start Time: 9:30 AM Stop Time: 10:15 AM Number of Group Members Present: 5 Location of Service: Face to Face at [facility] ESL INSTRUCTIONAL ASSISTANT SERVICES PROVIDED (if applicable): No Session Content (Intervention): The purpose of this group was to provide education through information-sharing and facilitated group discussion. Handouts were provided and covered in detail. Skills taught today included: Wellness Education (describe boundaries and self-compassion) Welcomed any new patients to the group and reviewed group guidelines. Asked patients to participatein a check in identifying their focus for the day, how their evening was, and any baby concerns or triumphs, and any requests of the group. Offered clients time to identify issues they would like to bring up in psychotherapy group. Encouraged group interaction. The patient???s response to the intervention (including [...] Other observations: N/A Jazmine Potter LICSW, 05/23/2023 12:55 PM documented in this encounter Plan of [...]
--- OUTSIDE RECORDS SUMMARY | 2023-10-20 07:09 | XMS_ITS | Encounter Summary ---
Author Name Unknown Organization [facility] Address [address] [place] [phone] Phone Care Team Providers Care Insurance Account Representative Name Role Phone Unavailable Primary Care Provider Unavailabl e Encounter Details Date Type Department Care Team Description 06/08/2023 Travel Social History Tobacco Use Types Packs/Day Years [...]
--- OUTSIDE RECORDS SUMMARY | 2023-10-20 07:09 | XMS_ITS | Encounter Summary ---
Author Name Unknown Organization [facility] Address [address] [place] [phone] Phone Care Team Providers Care Technology Services Manager Name Role Phone Unavailable Primary Care Provider Unavailabl e Reason for Visit * Prior Authorization (Routine) - Closed Specialty Diagnoses / Procedures Referred By Contac t Referred To Contact Psych Rehab Diagnoses Bipolar II disorder () Trauma and stressor-related disorder Procedures MOTHER BABY ENROLLMENT Jazmine Potter, [facility] [address] [place] [address] [address] Referral ID Status Reason Start Date Expiration Date Visits Re quested Visits Authorized [id number] Closed 05/09/2023 06/24/2023 105 105 Encounter Details Date Type Department Care Team Description 06/02/2023 1:45 PM CDT Psych [facility] [address] [place] [address] [phone] Karoline Benson MD 701 [facility] [address] [place], [place] [address] Dh, Mother Baby Discharge Disposition: Discharged to [...] Group Note - Claire Workman LPCC - 06/02/2023 1:45 PM CDT Dept: [facility] Type of Service: Group Therapy Name of Group: Psychoeducation/Skills Group Provider/Group Telephone Exchange Operator: Claire Workman LPCC Date of Service: 06/02/2023 Start Time: 1:45 PM Stop Time: 2:30 PM Number of Group Members Present: 3 Location of Service: Face to Face at [facility] Session Content (Intervention): The purpose of this group was to provide education through information-sharing and facilitated group discussion. Handouts were provided and covered in detail. Skills taught today included: Other: Weekend Planning, BOBO DBT skill The patient???s response to the intervention (including [...] No Other observations: N/A Claire Workman LPCC, 06/02/2023 4:01 PM documented in this encounter Plan of [...]
--- OUTSIDE RECORDS SUMMARY | 2023-10-20 07:09 | XMS_ITS | Encounter Summary ---
Author Name Unknown Organization [facility] Address [address] [place] [address] Phone Care Team Providers Care Singing Telegram Performer Name Role Phone Unavailable Primary Care Provider Unavailabl e Reason for Visit * Prior Authorization (Routine) - Closed Specialty Diagnoses / Procedures Referred By Contac t Referred To Contact Psych Rehab Diagnoses Bipolar II disorder () Trauma and stressor-related disorder Procedures MOTHER BABY ENROLLMENT Jazmine Potter, [facility] [address] [place] [address] [address] Referral ID Status Reason Start Date Expiration Date Visits Re quested Visits Authorized [id number] Closed 05/09/2023 06/24/2023 105 105 Encounter Details Date Type Department Care Team Description 06/06/2023 11:00 AM CDT [facility] [address] [place] [phone] Karoline Benson MD 701 [facility] [address] [place], [place] [address] Dh, Mother Baby Discharge Disposition: Discharged to [...] Group Note - Jazmine Potter LICSW - 06/06/2023 11:00 AM CDT Dept: [facility] Type of Service: Group Therapy Name of Group: Psychoeducation/Skills Group Provider/Group Rope Silica Machine Operator: Jazmine Potter LICSW Date of Service: 06/06/2023 Start Time: 11:15 AM Stop Time: 12:00 PM Number of Group Members Present: 4 Location of Service: Face to Face at [facility] MANAGER LOSS PREVENTION SERVICES PROVIDED (if applicable): No Session Content (Intervention): The purpose of this group was to provide education through information-sharing and facilitated group discussion. Skills taught today included: Understanding Shame and Guilt The patient???s response to the intervention (including [...] No Other observations: N/A Jazmine Potter LICSW, 06/06/2023 2:01 PM documented in this encounter Plan of [...]
--- OUTSIDE RECORDS SUMMARY | 2023-10-20 07:09 | XMS_ITS | Encounter Summary ---
Author Name Unknown Organization [facility] Address [address] [place] [address] Phone Care Team Providers Care Oriental Medicine Practitioner Name Role Phone Unavailable Primary Care Provider Unavailabl e Reason for Visit * Reason Comments Psych Medication Management Encounter Details Date Type Department Care Team Description 06/06/2023 10:00 AM CDT Psych Rehab [facility] for Family [facility] [address] [place], [place] [id number] Karoline Benson MD [address] [facility] [address] [place], [place] [id number] Psych Medication Management Discharge Disposition: Discharged to [...] Progress Notes * Karoline Benson MD - 06/06/2023 10:00 AM CDT Images from the original note were not included. Mother Baby [facility], Psychiatry Visit Started the [facility] on: 05/09/23 Merry Rooney is a 23 y.o. mother of baby (Aidan born 05/03/23) and 2 year old son (Chuy). Referred by [place] inpatient initially to the [facility]. Also admitted while she was in the program to [facility] ([place], [place]) 05/24-05/30/23. Cultural Context: white, Frisian and Tunisian Pronouns: she/her/hers; Supports: Jesús -- supportive Therapist: ; PCP: ; OB-FOUNDRY METALLURGIST: Antonio Ob; English And Reading Instructor: Feeding Method: mainly formula because milk supply [...] while she was in the program to [facility] ([place], [place]) 05/24-05/30/23. 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 mother of 2 following a harrowing course with psychotic symptoms and possible preeclampsia leading to transfer to [place] ICU. Longitudinal course consistent with Complex Developmental Trauma and bipolar spectrum. Feeling better now after recent psy chiatric admission (05/24-) to [facility] for increased SI, paranoia, and auditory hallucinations. She has clear strengths including her warmth, drive, capacity for empathy and reflection, and strong commitment to parent well. The patient is benefiting from the structure, support and education of the program and continues toneed this level of care for medication evaluation, treatment and monitoring and would likely regress without this intensive mental health intervention. Plan 1) In our prior visit we discussed diagnosis and course and frame of complex developmental trauma and bipolar spectrum. Discussed 4Ss (safety, sleep, support, and structure). 2) MEDICATIONS: - Reviewed treatment options. -Will take Zyprexa 5mg hs -Increase buspar 10mg bid -Cont lamictal 25mg and due to go up to 50mg next week -Start inderal 10mg bid -Risks and benefits reviewed including use while nursing (she is using both breast and formula) 3) LABS: Reviewed recent labs 4) Continue to monitor symptoms 5) Engage patient in individual and group therapy process in the [facility]. 6) Review old records. 7) Contact collateral informants as indicated. 8) Arrange appropriate outpatient follow-up at the conclusion of the [facility] 9) has PCP follow-up for physical symptoms tomorrow, RN to connect with services Intervening History Last seen by Dr. Esposito on 06/03/23 at which time they partnered on increasing Zyprexa to 5 mg bid and starting Buspirone 5 mg t.I.d. Today -Feeling a little better today -- slept better and doing shifts with her partner -Anxious this morning because she was by herself with the kids. Also didn't take her morning meds. -Decided that the Zyprexa in the day was too sedating so advocated for just taking 5mg at night. Also started the Buspar 5mg tid and thinks that it helps with her anxiety. -Feels the paranoia is much better. Had some tingling and twitching of her arms when she was taking more Zyprexa 2.5mg AM and 5mg HS, but feels better with just taking 5mg hs. -Yesterday went to the ER with chest pain, palpitations. Extensive workup and ruled out for acute cardiac event or pulmonary event. Told she was having PVCs and referred to cardiology Denies current chest pain, shortness of breath, palpitation -Continues to feel supported and validated by the group -Denies current SI/HI/psychotic symptoms. Baby/Children: Toddler Chuy -- all over the place, sweetheart, cute, loves animals and blocks and tractors. Baby Latha - amazing, the easiest baby ever. Recent Substance Use: denies -would like to abstain from alcohol use for now Reproductive Plans/Menstrual Cycle: Not discussed today Current Psychiatric Medications: Psychiatric medications at start of today's visit: -Olanzapine 2.5 mg twice daily Safety Screening: SI: Ms. Rooney reports in interview no suicidal thoughts. HI: She reports no violent ideation. She reports current abuse concerns: none. Most Recent C-SSRS Calculated C-SSRS Risk Score (Since Last Contact): No Risk Identified - Provide treatment per regular standard of care, complete SAFE-T assessment only if needed based on clinical judgment (:16 PM) Summary of critical care points since [...] when she was 4. Mother lived in [place]. 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 Legal: no had involvement with the legal system. The patient reports the following spiritual and/or cultural history: Frisian and Tunisian background Relationship to her partner/father/co-parent of the child : after short time knowing each other. He's supportive. Mental Status Exam Appearance: Casually groomed and Dressed appropriately for weather Behavior/relationship to examiner/demeanor: Cooperative, Engaged, and Pleasant. Motor activity/EPS: Normal Gait: Normal Speech rate: Normal Speech volume: Normal Speech articulation: Normal Speech coherence: Normal Speech spontaneity: Normal Mood: less anxious Affect: Reactive/Full range, more regulated Thought Process: Logical/goal-directed, Normal Thought Content: Normal, No suicidal ideation, and No violent ideation Abnormal Perception: None Sensorium: Alert Attention/Concentration: Normal Memory: Immediate recall intact, although not formally tested Language: Intact Fund of Knowledge/Intelligence: Average Insight: Adequate Judgment: Adequate PROVIDER: Karoline Benson MD Time In: 10 AM time Out: 10:30 AM Total time spent on this encounter, on the date of service, including pre-visit review of separately obtained history, patient counseling/education, interpretation of diagnostic results, care coordination and documentation was 45 minutes. documented in this encounter Plan of Treatment Not on file documented as of this encounter Visit Diagnoses Not on filedocumented in this encounter Additional Health Concerns Assessment Noted Time PHQ-9 Depression Total Score: 19 023 4:26 PM CDT PHQ-2 Depression Total Score: 3 06/02/20 23 4:26 PM CDT documented as of this encounter
--- OUTSIDE RECORDS SUMMARY | 2023-10-20 07:09 | XMS_ITS | Encounter Summary ---
Author Name Unknown Organization [facility] Address [address] [place] [address] Phone Care Team Providers Care Painter Name Role Phone Unavailable Primary Care Provider Unavailabl e Reason for Visit * Reason Onset Date Comments Mother Baby - Mental Health Outreach 05/24/2023 Encounter Details Date Type Department Care Team Description 05/24/2023 Telephone [facility] [address] [place], [place] [phone] Jazmine Potter, CLINICAL OB [address] [place], [place] [phone] Mother Baby - Mental Health Outreach Social [...] encounter Miscellaneous Notes * Telephone Encounter - Jazmine Potter CLINICAL OB - 05/25/2023 9:55 AM CDT Cold Patcher spoke with patient who reported that [facility] was [facility]. Patient stated, all signs are pointing to psychosis. Endorsed increased paranoia since Tuesday evening and hearing whispers. Cold Patcher offered emotional support and ensured patient that [facility] is available upon discharge from the hospital. Patient expressed relief to hear this. Ensured that she is currently safe in ED and stated that she will be in touch with [facility] upon discharge to return to programming. documented in this encounter Plan of Treatment Not on file documented as of this encounter Visit Diagnoses Not on filedocumented in this encounter Additional Health Concerns Assessment Noted Time PHQ-9 Depression Total Score: 12 023 3:14 PM CDT PHQ-2 Depression Total Score: 2 05/18/20 23 3:14 PM CDT documented as of this encounter
--- OUTSIDE RECORDS SUMMARY | 2023-10-20 07:09 | XMS_ITS | Encounter Summary ---
Author Name Unknown Organization [facility] Address [address] [place] [phone] Phone Care Team Providers Care Manager Power Name Role Phone Unavailable Primary Care Provider Unavailabl e Reason for Visit * Prior Authorization (Routine) - Closed Specialty Diagnoses / Procedures Referred By Contac t Referred To Contact Psych Rehab Diagnoses Bipolar II disorder () Trauma and stressor-related disorder Procedures MOTHER [facility]ABY ENR[facility]LLMENT Jazmine Potter, [facility] [address] [place] [address] [address] Referral ID Status Reason Start Date Expiration Date Visits Re quested Visits Authorized [id number] Closed 05/09/2023 06/24/2023 105 105 Encounter Details Date Type Department Care Team Description 06/06/2023 9:30 AM CDT Psych Rehab [facility] [address] [place] [id number] Karoline Benson MD [address] [facility] [address] [place], [place] [phone] Dh, Mother Baby Discharge Disposition: Discharged to [...] Note - Jazmine Potter LICSW - 06/06/2023 9:30 AM CDT Dept: [facility] Type of Service: Group Therapy Name of Group: Psychoeducation/Skills Group Provider/Group Field Crew Chief: Jazmine Potter LICSW Date of Service: 06/06/2023 Start Time: 9:30 AM Stop Time: 10:15 AM Number of Group Members Present: 5 Location of Service: Face to Face at [facility] PURCHASING ENGINEER SERVICES PROVIDED (if applicable): No Session Content (Intervention): Welcomed any new patients [...] Other observations: N/A Jazmine Potter LICSW, 06/06/2023 11:12 AM documented in this encounter Plan of [...]
--- OUTSIDE RECORDS SUMMARY | 2023-10-20 07:09 | XMS_ITS | Encounter Summary ---
Author Name Unknown Organization [facility] Address [address] [place] [id number] Phone Care Team Providers Care Mail Technician Name Role Phone Unavailable Primary Care Provider Unavailabl e Reason for Visit * Reason Onset Date Comments Psych Medication Management 06/01/2023 * Prior Authorization (Routine) - Closed Specialty Diagnoses / Procedures Referred By Bernardo belle Referred To Contact Psych Rehab Diagnoses Bipolar II disorder () Trauma and stressor-related disorder Procedures MOTHER BABY ENROLLMENT Jazmine Potter, [facility] [address] [place] [address] [id number] [address] Referral ID Status Reason Start Date Expiration Date Visits Re quested Visits Authorized [id number] Closed 05/09/2023 06/24/2023 105 105 Encounter Details Date Type Department Care Team Description 06/01/2023 10:00 AM CDT [facility] [address] [place] [phone] Karissa Mejia MD [address] [place], [place] [phone] Psych Medication Management Discharge Disposition: Discharged to [...] on file documented as of this encounter Patient Instructions * Patient Instructions* Karissa Mejia MD - 06/01/2023 10:00 AM CDT Only the psychiatric medicines on this list were confirmed at this visit. Please review the other medicines on this list with the person who prescribed them to make sure that they are correct. documented in this encounter Progress Notes * Karissa Mejia MD - 06/01/2023 10:00 AM CDT Images from the original note were not included. Mother Baby [facility], Psychiatry Visit Started the [facility] on: 05/09/23 Merry Rooney is a 23 y.o. mother of baby (Aidan born 05/03/23) and 2 year old son (Chuy). Referred by [facility] Cultural Context: white, Canadian and Korean Pronouns: she/her/hers; Supports: Espinosa -- supportive Therapist: ; PCP: ; OB-SATELLITE TV INSTALLER: Antonio Ob; Wood Gluer: Feeding Method: breast and bottle feeding with breastmilk and formula Psych critical item history includes: adverse childhood experiences (ACEs and cumulative trauma; history of psychiatric admissions in teens and diagnosed with bipolar disorder in 2020 after a manic episode. 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 mother of 2 following a harrowing course with what sounds like a delirium with psychotic symptoms and possible [place]. Longitudinal course consistent with Complex Developmental Trauma (history of cumulativetrauma during childhood with inadequate adult nurturance and protection resulting in struggles withself-regulation, attachment, anxiety, and relationships) and bipolar spectrum. She has clear strengths including her warmth, [...] structure). 2) MEDICATIONS: - Reviewed treatment options. -Continue olanzapine 2.5 mg in the morning and increase nighttime dose to 5 mg nightly -Start Lamictal titration -Do not restart guanfacine Risks and benefits reviewed including use while nursing (she is using both breast and formula) 3) LABS: Reviewed recent labs 4) Continue to monitor symptoms 5) Engage patient in individual and group therapy process in the [facility]. 6) Review old records. 7) Contact collateral informants as indicated. 8) Arrange appropriate outpatient follow-up at the conclusion of the [facility] 9) has PCP follow-up for physical symptoms tomorrow, RN to connect with services Intervening History Last met with Dr. Esposito on 05/23/23 at which time hydroxyzine was added in favor of risperidone dueto concerns of potential side effect of akathisia with risperidone. Since that time, she was hospitalized psychiatrically for worsening symptoms of paranoia at outside facility which is not availablein Care Everywhere (went to ED 05/24, not sure of exact admission date, discharged yesterday). Working on obtaining an MERY for the records. Yesterday, she was seen in urgent care and later brought to the emergency room by ambulance for various physical symptoms including palpitations- PVCs (tachycardia and high BP which resolved in the ED). Heart rate was up to 150 at urgent care with associated sy mptoms of feeling dizzy -EKG showed PVCs and sinus tachycardia. S/p Toradol and IVF. Today: -Overall feels better and more regulated today although continues to suffer with emotional dysregulation and trauma triggered paranoia at times. Describes her symptoms leading to recent hospitalization as episodes of paranoia, intrusive thoughts, auditory hallucinations (not come mandatory, whispers), and delusions that my was slipping the pills. -Reviewed psychiatric hospital course (records not currently available for review): States they stopped her risperidone, hydroxyzine and guanfacine. Kept Nifedipine as needed and started olanzapine 2.5 mg twice daily. Shares that she has found olanzapine very helpful and feeling more calm, reducingsymptoms of psychosis, feels mood is more regulated and is sleeping better. She wonders about an increase in this today. She also advocates to consider starting lamotrigine as she had been on this previously in a period with her son and found it very helpful for mood regulation and similar symptoms she experienced during that time. Recalls being up to either 75 mg or 100 mg of the Lamictal and only stopping it as she was feeling well and thought alcohol would be a better medication, it turns out it was not. Clarifies that she has not had any side effects previously with Lamictal, particularly no Turner- Tyler syndrome. We review r/b/a of medications in today. -Reviews her visit in the emergency room yesterday -confirms no medication changes were made and she was discharged home with counseling to return to the ER if she had worsening symptoms such as severe headache, fever, vomiting, rapid or irregular heartbeat, vision changes or other concerning symptoms. She wonders if her symptoms are due to a B12 deficiency -plans to discuss this with her PCP at their upcoming appointment tomorrow. Not currently having any of these symptoms that would warrant return to emergency room. She does not feel that she was having any seizure like activity although does feel that this explains her previous episode on day 3 (versus notes that suggest more likely related to mental health pathology versus preeclampsia/seizures). -Continues to feel supported and validated by [...] when she was 4. Mother lived in [place]. 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 Legal: no had involvement with the legal system. The patient reports the following spiritual and/or cultural history: Canadian and Korean background Relationship to her partner/father/co-parent of the child : after short time knowing each other. He's supportive. Mental Status Exam Appearance: Casually groomed and Dressed appropriately for weather Behavior/relationship to examiner/demeanor: Cooperative, Engaged, and Pleasant. Responds warmly andappropriately to baby's needs Motor activity/EPS: Normal Gait: Normal Speech rate: Normal Speech volume: Normal Speech articulation: Normal Speech coherence: Normal Speech spontaneity: Normal Mood: Anxious, depressed Affect: Reactive/Full range, more regulated Thought Process: Logical/goal-directed, Normal Thought Content: Normal, No suicidal ideation, and No violent ideation Abnormal Perception: None Sensorium: Alert Attention/Concentration: Normal Memory: Immediate recall intact, although not formally tested Language: Intact Fund of Knowledge/Intelligence: Average Insight: Adequate Judgment: Adequate PROVIDER: Karissa Mejia MD Time In: 10 AM time Out: 10:30 AM Total time spent on this encounter, on the date of service, including pre-visit review of separately obtained history, patient counseling/education, interpretation of diagnostic results, care coordination and documentation was 70 minutes. documented in this encounter Plan of Treatment Not on file documented as of this encounter Visit Diagnoses Diagnosis Bipolar II disorder ()- Primary Other bipolar disorders Trauma and stressor-related disorder documented in this encounter Additional Health Concerns Assessment Noted Time PHQ-9 Depression Total Score: 12 023 3:14 PM CDT PHQ-2 Depression Total Score: 2 05/18/20 3:14 PM CDT documented as of this encounter
--- OUTSIDE RECORDS SUMMARY | 2023-10-20 07:09 | XMS_ITS | Encounter Summary ---
Author Name Unknown Organization [facility] Address [address] [place] [address] Phone Care Team Providers Care Fast Foods Worker Name Role Phone Unavailable Primary Care Provider Unavailabl e Reason for Visit * Reason Onset Date Comments Psych Medication Management 06/08/2023 Encounter Details Date Type Department Care Team Description 06/08/2023 11:30 AM CDT [facility] [address] [place] [address] [phone] Karissa Mejia MD [address] [place] [address] [phone] Psych Medication Management Discharge Disposition: Discharged to [...] * Patient Instructions* Karissa Mejia MD - 06/08/2023 11:30 AM CDT Only the psychiatric medicines on this list were confirmed at this visit. Please review the other medicines on this list with the person who prescribed them to make sure that they are correct. documented in this encounter Progress Notes * Karissa Mejia MD - 06/08/2023 11:30 AM CDT Images from the original note were not included. Mother Baby [facility], Psychiatry Visit Started the [facility] on: 05/09/23 Merry Rooney is a 23 y.o. mother of baby (Aidan born 05/03/23) and 2 year old son (Chuy). Referred by [facility] inpatient initially to the [facility]. Also admitted while she was in the program to [facility] ([place], [place]) 05/24-05/30/23. Cultural Context: white, Setswana and Bulgarian Pronouns: she/her/hers; Supports: [place] -- supportive Therapist: ; PCP: ; OB-TRACK SERVICE WORKER: Antonio Ob; Air Traffic Controller: Feeding Method: mainly formula because milk supply [...] while she was in the program to [facility] ([place], [place]) 05/24- 05/30/23. Multiple, recent ED visits for physical sx of anxiety as well as SI - mainly to [facility] (see 06/02/[address] Esposito for recent summary of ED courses). Diagnostic Impression(s) Bipolar II Disorder, current episode depressed, severe with psychotic symptoms PTSD and (Complex Developmental Trauma) Unspecified anxiety (intrusive thoughts) Opioid and alcohol use disorders, by history Multiple closed head injuries and hx of seizure preeclampsia Assessment [employer], caring, resilient 23 y.o. mother of 2 following a harrowing course with psychotic symptoms and possible preeclampsia leading to transfer to [facility] ICU. Longitudinal course consistent with Complex Developmental Trauma and bipolar spectrum. Recent psychiatric admission (05/24- ) to [facility] and multiple, subsequent visits to outside ED (not avail in Care Everywhere) for increased SI, paranoia, and auditory hallucinations. Significantly worsened suicidal ideation, intrusive, ego-dystonic thoughts/images of harm befallingchildren, and trauma symptoms in the past several days. Given clear safety concerns, recommending direct inpatient admission. Will await a bed in APS. Kids will be with safe family members ('sstep parents). She has clear strengths including her warmth, drive, capacity for empathy and reflection, and strong commitment to parent well. Plan 1) Direct admission to inpatient psychiatry - I have connected with APS charge nurse. 72 hour hold placed. 2) MEDICATIONS: Defer any potential changes to APS/inpt team - Continue Zyprexa 5mg QHS (too sedating at higher doses) - Continue buspar 10mg BID (recently increased) -Continue Lamictal titration of 25mg and due to go up to 50mg next week -Continue propranolol 10mg bid -Risks and benefits reviewed including use while nursing (she is using both breast and formula) 3) reviewed safe plan for childcare of her kids with family and support for her who is alsostruggling with mental health 4) Anticipate continuing mother baby PHP upon d/c. Has therapy intake for EMDR this - willkeep the appt but may need to cancel pending course in APS/hospitalization. 5) has ongoing cardiac workup with PCP -Holter monitor anticipated ( has been multiple times to theER with chest pain, palpitations. Extensive workup and ruled out for acute cardiac event or pulmonary event. Told she was having PVCs and referred to cardiology) Intervening History Last seen by Dr. Benson on 06/06/23 at which time buspar was increased, inderal was started. Today: -Has been in contact with mother baby therapist since early this morning describing a very difficult morning with severe and increased symptoms. Was able to get here today later in the morning with her daughter. -Describes significantly increased and more intense ego dystonic intrusive thoughts/images of harm befalling her children including images of stabbing or suffocating them. Increased trauma symptoms including flashbacks and dissociation. Very clear that she has no intent and absolutely does not wantto harm her children although very fearful that something could happen when I feel overwhelmed ordisconnected. These intrusive thoughts and images have led to suicidal ideation with plan to overdose. Worries for her safety if she were to leave here today. Wonders about hospitalization and states that her and other family members have talked to her about considering coming back to inpatient. I echoed this concern and she is in agreement that hospitalization is warranted today. -States she called the crisis nursery this morning, she and mother baby therapist had also discussed together for good as an option of respite care although her stepparents offered to watch the children while she and her can heal in this acute distress. She feels much better about this option and confirms that they are safe and trusted people to watch her children. -Anxiety significantly worse -Describes symptoms of paranoia and worries of someone out to get her -Not sleeping well Baby/Children: Toddler Chuy -- all over the place, sweetheart, cute, loves animals and blocks and tractors. Baby Latha - amazing, the easiest baby ever. Recent Substance Use: denies -would like to abstain from alcohol use for now Reproductive Plans/Menstrual Cycle: Not discussed today Current Psychiatric Medications: Psychiatric medications at start of today's visit: - Zyprexa 5mg QHS (too sedating at higher doses) - buspar 10mg BID (recently increased) -Lamictal titration of 25mg and due to go up to 50mg next week -propranolol 10mg bid Safety Screening: SI: Ms. Rooney reports in [...] when she was 4. Mother lived in [place]. 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 Legal: no had involvement with the legal system. The patient reports the following spiritual and/or cultural history: Setswana and Bulgarian background Relationship to her partner/father/co-parent of the child : after short time knowing each other. He's supportive. Mental Status Exam Appearance: in distress and Dressed appropriately for weather Behavior/relationship to examiner/demeanor: Cooperative, Engaged, and Pleasant. Motor activity/EPS: anxious fidgeting Gait: Normal Speech rate: Normal Speech volume: Normal Speech articulation: Normal Speech coherence: Normal Speech spontaneity: Normal Mood: depressed, very anxious Affect: mood congruent, much more anxious and distressed Thought Process: Logical/goal-directed, Normal Thought Content: SI, ego-dystonic intrusive thoughts Abnormal Perception: paranoid thoughts Sensorium: Alert Attention/Concentration: limited Memory: Immediate recall intact, although not formally tested Language: Intact Fund of Knowledge/Intelligence: Average Insight: Adequate Judgment: Adequate PROVIDER: Karissa Mejia MD Time In: 1145 AM time Out: 1230pm Total time spent on this encounter, on [...]
--- OUTSIDE RECORDS SUMMARY | 2023-10-20 07:09 | XMS_ITS | Encounter Summary ---
Author Name Unknown Organization [facility] Address [address] [place] [address] Phone Care Team Providers Care Door Manager Name Role Phone Unavailable Primary Care Provider Unavailabl e Reason for Visit * Prior Authorization (Routine) - Closed Specialty Diagnoses / Procedures Referred By Contac t Referred To Contact Psych Rehab Diagnoses Bipolar II disorder () Trauma and stressor-related disorder Procedures MOTHER BABY ENROLLMENT Jazmine Potter, [facility] [address] [place] [address] [address] Referral ID Status Reason Start Date Expiration Date Visits Re quested Visits Authorized [id number] Closed 05/09/2023 06/24/2023 105 105 Encounter Details Date Type Department Care Team Description 06/01/2023 11:00 AM CDT [facility] [address] [place] [address] [phone] Karoline Benson MD 701 [facility] [address] [place], [place] 235[address] Dh, Mother Baby Discharge Disposition: Discharged to [...] Group Note - Kiana Borges RN - 06/01/2023 11:00 AM CDT Dept: [facility] Type of Service: Group Therapy Provider/Group Christian Science Healer: Kiana Borges RN Date of Service: 06/01/2023 Start Time: 11:15 AM Stop Time: 12:00 PM Number of Group Members Present: 5 Name of Group: Movement Location of Service: Face to Face at [facility] SENIOR TECHNICAL BUSINESS ANALYST SERVICES PROVIDED (if applicable): No Session Content (Intervention) (including goal/intended outcome): Encouraged group members to participate in mind-body skills facilitated by [facility] Trauma- Informed Yoga providers. Trauma-sensitive mind-body skills and practice were used to safely experiment with connecting with one's body. Movement included practicing - breathing, moving, strengthening and resting. Group members were invited to check in and notice their bodies. The psychoeducation topic related to the mind-body skills today was mind-body conection. The patient's response to the intervention: Patient presented as engaged and active. The patient did participate fully in the activity. Observations of Individual Group Member: the patient arrived to group on time and remained the entire 45-minute session. She participated in the mind-body skills and movement exercises. Appeared alert and attentive to material presented and group members. Kiana Borges RN, 06/01/2023 12:24 PM documented in this encounter Plan of [...]
--- OUTSIDE RECORDS SUMMARY | 2023-10-20 07:09 | XMS_ITS | Encounter Summary ---
Author Name Unknown Organization [facility] Address [address] [place] [address] Phone Care Team Providers Care Service Order Expediter Name Role Phone Unavailable Primary Care Provider Unavailabl e Reason for Visit * Reason Comments Mother Baby - Family Session Encounter Details Date Type Department Care Team Description 06/07/2023 12:15 PM CDT Telemedicine [facility] [address] [place], [place] [phone] Claire Workman, [facility] [address] [place], [place] [phone] Karoline Benson MD 701 [facility] [address] [place], [place] [address] Mother Baby - Family Session Discharge Disposition: [...] this encounter Progress Notes * Claire Workman, [facility] - 06/07/2023 12:15 PM CDT [facility] Progress Note Date of Service: 06/07/2023 Start Time: 12:15 pm Stop Time: 12:52 pm Location of Visit: Hybrid (pt and infant daughter in person, pt's present via telehealth) Telemedicine: [email or web address] Video Visit: This telemedicine visit is conducted by audio and video technology between thepatient and provider. Informed consent was provided during e-check in and signed by patient. Patient was offered opportunity to ask any questions. Patient's Physical Location: Home Provider's Physical Location: Onsite at [facility] Participants in this Telemedicine Visit other than the patient/provided included: pt's (home), pt's infant daughter (in person with pt) This visit started at: 12:15 PM and concluded at: 12:52 PM. Type of Therapy: Family, Modality: Emotion Focused Therapy, Motivational Interviewing, and Narrative Therapy Session #: 2 For Calendar year: 2022 Diagnoses: 1. Bipolar II disorder () 2. Trauma and stressor-related disorder Interventions used this session: Reassessed emotional status. Provided support and opportunity to explore and express feelings and reactions. Reviewed progress in treatment and gains made. Discussed treatment directions. Will continue to follow as needed. Session Content: Kristina and P were present along with their daughter. Focus of session was for P to receive additional support with his mental health. P reports, I feel like I'm not the best equipped, to care for children on a consistent basis, noting that he often feels frustrated and is quickly ov erstimulated by infant daughter's cries. He notes that before bedtime and bathrime is the hardest time for him. Kristina added that she feels P's frustration and burnout have been worse over the last weeks, with P at first stating he feels he has not noticed a change but then agreeing. Clinician provi ded psychoeducation on TIPP strategies for regulation in moments of overwhelm and also encouraged Pto make a plan of how he can step away from the children safely when he is overwhelmed. P processedhis worries that he is afraid he will have to care for the children by himself again, as has happened previously when Kristina was hospitalized. Clinician provided gentle and affirming environment to share these worries and for the couple to process them together. Plan for clinician to check with coworker Carmen to see if she can see P for individual therapy. Patient Response to Intervention (including any plans [...] in effect and pt has copy Claire Workman LPCC, 06/07/2023 1:40 PM documented in this encounter Plan of [...]
--- OUTSIDE RECORDS SUMMARY | 2023-10-20 07:09 | XMS_ITS | Encounter Summary ---
Author Name Unknown Organization [facility] Address [address] [place] [address] Phone Care Team Providers Care Fireproof Door Maker Name Role Phone Unavailable Primary Care Provider Unavailabl e Encounter Details Date Type Department Care Team Description 06/02/2023 10:00 AM CDT Psych Rehab [facility] [address] [place] [id number] Ray Esposito MD [address] [address] Discharge Disposition: Discharged to home or self [...] Progress Notes * Ray Esposito MD - 06/02/2023 10:00 AM CDT 06/02/2023 [facility] Medication follow-up Interim history - seen by this editorial writer previously on 05/23/23 - and subsequently by on 06/01/23. After delivery of her baby girl on 05/03/23 had returned home - but had then experienced visual hallucinations. Her then called 911 and she was hospitalized in [place], [place]. While there her BP was very unstable and she had a seizure (imaging apparently demonstrated brain swelling and because of very elevated BP she was then airlifted to [facility]. She was discharged home - then was seen on 05/23/23 ( [facility]) at which time she described worrisome symptoms which were felt to possibly represent akathesia. On a trial basis, Risperidone (even though in low dosage) was discontinued and prn Hydroxyzine substituted. However on 05/24/23 she became acutely paranoid and delusional - and was then transferred to [place], [place] ([facility]) - and stabilized there (on Olanzapine ) - eventually discharged [place] to [place] on 05/30/23. Later on 06/01/23 she was again evaluated at the [facility] mother-baby clinic - by Karissa Mejia M.D. - who noted that patient had been again seen in a local urgent-care clinic (in [place], [place]) - where BP was elevated and HR increased - with PVC's and sinus tachycardia reported (also received IV fluids ). Low dosage Olanzapine 2.5 mg Q a.m. was then increased to 2.5 mg a.m. and 5.0 mg Q h.s. Lamictal was also initiated at that time (had previously been on Lamictal during an earlier episode of mood changes) and Guanfacine stopped (previously had been prescribed for ADHD symptoms). Earlier today (06/02/23) patient was seen by her primary provider - who again noted tachycardia and ordered Holter monitor review. Today Merry is seen by this editorial writer in the [facility]. All recent notes are reviewed. Fully alert and cooperative with interview - but very distressed because of unrelenting obsessionalthoughts to harm her baby. Gait normal. Good eye contact. Casual attire. Speech normal in rate and volume, not pressured. Associations are intact. Thought content: denies all psychotic symptoms, denies any further AH or VH. However does emphasizeongoing intrusive and ego-alien obsessive thoughts of either harming her baby or of her baby experiencing some kind of fatal medical condition. As noted, experiences these intrusive thoughts as very unpleasant - and is quite clear that she would not wish for any kind of unpleasant outcome - instead, requests additional help in finding some relief from these thoughts. Says she has tried many different behavioral approaches - but to no avail. Somewhat reluctant to accept the possible need for temporary increase in Olanzapine dosage - but eventually says she'd agree (along with a trial of Buspi albert - which has not previously been prescribed). Mood is highly anxious, affect mood-congruent. As noted, is not currently suicidal - and strongly denies any intent to harm her children or other family members. No manic features evident at this time. Insight is fair. Judgment variable - but indicates a wish for further help at this time. Appears fully oriented in 3 spheres. Immediate reality contact good. Attention span and concentration adequate for purpose of interview. Fund of knowledge adequate. Note: patient currently does describe odd somatic complaints - which she attributes to Olanzapine -specifically a feeling of being pulled to the floor and of jerky and twitchy movements in her arms and legs. However on formal evaluation by this editorial writer today, there is no noticeable tremor and muscle tone is normal - I.e.no extra-pyramidal side effects noted. Diagnosis - PTSD - history of ADHD - history of psychosis and possible history of Bipolar disorder - BRANDON - history of MDD with prior suicide attempts and prior depression (and possible psychosis) - prior history of opioid and alcohol use disorder (but has recently maintained sobriety) - history of eclampsia and hypertension during - history of seizure - history of HSV - history of anemia. Plan: on trial basis, increase Zyprexa dosage to 5 mg a.m and h.s. - trial of Buspirone 5 mg t.I.d. - with further dosage increases likely needed [facility] [place] - continue Lamictal titration (Guanfacine discontinued). - patient given some limited info regarding potential trial of EMDR - and encouraged to seek further information regarding possible indications (considering current severe trauma-related symptoms, lack of tolerance to antipsychotic medication - even in low-dosage, and ongoing triggering by the necessity of now living in an apartment - with related constant reminders of the setting of prior trauma experience). - further cardiac work-up per primary provider - with Holter monitoring anticipated. Ray Esposito M.D. k documented in this encounter Plan of Treatment Not on file documented as of this encounter Visit Diagnoses Not on filedocumented in this encounter Additional Health Concerns Assessment Noted Time PHQ-9 Depression Total Score: 19 06/02/ 023 4:26 PM CDT PHQ-2 Depression Total Score: 3 06/02/20 23 4:26 PM CDT documented as of this encounter
--- OUTSIDE RECORDS SUMMARY | 2023-10-20 07:09 | XMS_ITS | Encounter Summary ---
Author Name Unknown Organization [facility] Address [address] [place] [address] Phone Care Team Providers Care Suction Worker Name Role Phone Unavailable Primary Care Provider Unavailabl e Encounter Details Date Type Department Care Team Description 06/08/2023 Documentation Only Unspecified Department [place] Unknown, Provider Social History Tobacco Use Types Packs/Day Years [...] Procedure Name Priority Date/Time Associated Diagnosis Comments LEGAL 06/16/2023 12:15 PM CDT documented in this encounter Results * LEGAL (06/16/2023 12:15 PM CDT) Narrative 06/16/2023 12:15 PM CDT Ordered by an unspecified provider. Provider Unknown SCANNED CONSENTS documented in this encounter Visit Diagnoses Not on filedocumented in this encounter Additional Health Concerns Assessment Noted Time PHQ-9 Depression Total Score: 19 023 4:26 PM CDT PHQ-2 Depression Total Score: 3 06/02/20 23 4:26 PM CDT documented as of this encounter
--- OUTSIDE RECORDS SUMMARY | 2023-10-20 07:09 | XMS_ITS | Encounter Summary ---
Author Name Unknown Organization [facility] Address [address] [place] [address] Phone Care Team Providers Care Real Estate Director Name Role Phone Unavailable Primary Care Provider Unavailabl e Reason for Visit * Prior Authorization (Routine) - Closed Specialty Diagnoses / Procedures Referred By Contac t Referred To Contact Psych Rehab Diagnoses Bipolar II disorder () Trauma and stressor-related disorder Procedures MOTHER BABY ENROLLMENT Jazmine Potter, [facility] [address] [place] [address] [id number] [address] [address] Referral ID Status Reason Start Date Expiration Date Visits Re quested Visits Authorized [id number] Closed 05/09/2023 06/24/2023 105 105 Encounter Details Date Type Department Care Team Description 06/07/2023 1:45 PM CDT Psych Rehab [facility] [address] [place] [address] [phone] Dh, Mother Baby Discharge Disposition: Discharged to [...] Group Note - Claire Workman LPCC - 06/07/2023 1:45 PM CDT Dept: [facility] Type of Service: Group Therapy Name of Group: Psychoeducation/Skills Group Provider/Group Mac Artist: Claire Workman LPCC Date of Service: 06/07/2023 Start Time: 1:45 PM Stop Time: 2:30 PM Number of Group Members Present: 7 Location of Service: Face to Face at [facility] Session Content (Intervention): The purpose of this group was to provide education through information-sharing and facilitated group discussion. Handouts were provided and covered in detail. Skills taught today included: Parenting Education (describe [place] [employer] [place]) The patient???s response to the intervention (including [...] No Other observations: N/A Claire Workman LPCC, 06/07/2023 2:31 PM documented in this encounter Plan [...]
--- OUTSIDE RECORDS SUMMARY | 2023-10-20 07:09 | XMS_ITS | Encounter Summary ---
Author Name Unknown Organization [facility] Address [address] [place] [address] Phone Care Team Providers Care Screw Machine Set Up Operator Tool Name Role Phone Unavailable Primary Care Provider Unavailabl e Reason for Visit * Reason Comments Blood Pressure Check Encounter Details Date Type Department Care Team Description 05/23/2023 Documentation Only [facility] Family [facility] [address] [place] [address] [phone] Kiana Borges RN [facility] [address] [place] [address] Blood Pressure Check Social History Tobacco Use Types Packs/Day Years Used Date Smoking Tobacco: Unknown PHQ-2 Answer Date Recorded PHQ-2 Subtotal 2 05/18/2023 Sex and Gender Information Value Date Recorded Sex Assigned at Female 05/06/2023 2:19 PM CDT Gender Identity Female 05/06/2023 2:19 PM CDT Sexual Orientation Not on file documented as of this encounter Last Filed Vital Signs Vital Sign Reading Time Taken Comments Blood Pressure 112/68 05/23/2023 1:45 PM CDT Pulse 86 05/23/2023 1:45 PM CDT Temperature - - Respiratory Rate - - Oxygen Saturation - - Inhaled Oxygen Concentration - - Weight - - Height - - Body Mass Index - - documented in this encounter Progress Notes * Kiana Borges RN - 05/23/2023 11:59 PM CDT Pt requested to have her BP checked throughout the day. First check around 0930 was 117/68 HR 98. Second check around 1345 was 112/68 HR 86. documented in this encounter Plan of Treatment Not on file documented as of this encounter Visit Diagnoses Not on filedocumented in this encounter Additional Health Concerns Assessment Noted Time PHQ-9 Depression Total Score: 12 023 3:14 PM CDT PHQ-2 Depression Total Score: 2 05/18/20 23 3:14 PM CDT documented as of this encounter
--- OUTSIDE RECORDS SUMMARY | 2023-10-20 07:09 | XMS_ITS | Encounter Summary ---
Author Name Unknown Organization [facility] Address [address] [place] [address] Phone Care Team Providers Care Registered Nurse Float Pool Name Role Phone Unavailable Primary Care Provider Unavailabl e Reason for Visit * Prior Authorization (Routine) - Closed Specialty Diagnoses / Procedures Referred By Contac t Referred To Contact Psych Rehab Diagnoses Bipolar II disorder () Trauma and stressor-related disorder Procedures MOTHER BABY ENROLLMENT Jazmine Potter, [facility] [address] [place] [address] [address] Referral ID Status Reason Start Date Expiration Date Visits Re quested Visits Authorized [id number] Closed 05/09/2023 06/24/2023 105 105 Encounter Details Date Type Department Care Team Description 06/02/2023 12:30 PM CDT [facility] [address] [place] [address] [phone] Karoline Benson MD 701 [facility] S1 [address] [place], [place] [phone] Dh, Mother Baby Discharge Disposition: Discharged to [...] Note - Claire Workman LPCC - 06/02/2023 12:30 PM CDT Dept: [facility] Type of Service: Group Therapy Name of Group: Psychoeducation/Skills Group Provider/Group Apprentice Electrician: Claire Workman LPCC Date of Service: 06/02/2023 Start Time: 12:45 PM Stop Time: 1:30 PM Number of Group Members Present: 4 Location of Service: Face to Face at [facility] Session Content (Intervention): The purpose of this group was to provide education through information-sharing and facilitated group discussion. Handouts were provided and covered in detail. Skills taught today included: Parenting Education (describe [place] [employer] Chapter 4) The patient???s response to the intervention (including [...] Other observations: N/A Claire Workman LPCC, 06/02/2023 4:00 PM documented in this encounter Plan of [...]
--- OUTSIDE RECORDS SUMMARY | 2023-10-20 07:09 | XMS_ITS | Encounter Summary ---
Author Name Unknown Organization [facility] Address [address] [place] [address] Phone Care Team Providers Care Quill Picking Machine Operator Name Role Phone Unavailable Primary Care Provider Unavailabl e Reason for Visit * Reason Onset Date Comments Mother Baby Documentation 06/08/2023 Encounter Details Date Type Department Care Team Description 06/08/2023 Telephone [facility] Family [facility] 701 [place], [place] [phone] Claire Workman [facility] 701 [facility] [place], [place] [phone] Mother Baby Documentation Social History Tobacco Use Types Packs/Day Years [...] Telephone Encounter - Claire Workman LPCC - 06/08/2023 9:29 AM CDT Pt called before clinician was in office requesting call. Clinician returned call at 8:05 am. Pt reports increased anxiety since last night, when her parents and siblings came over and she began to feel overwhelmed. She stated that symptoms of paranoia and psychosis seemed to have returned, along with intrusive thoughts. She stated that she went to the emergency room last night and was given propranolol, which reduced her heart rate, but has still been feeling increased anxiety and panic this morning along with intrusive thoughts (noted some intrusive thoughts were related to harming her children, but stated she had no desire to harm children and did not believe there was a risk of her acting on these thoughts). She stated she felt safe to be alone with her children until her mother arrived, made plan with clinician to call either her mother or step- father in law and stay on the phone until her mother arrived, at which point she would come into programming and meet with psychiatry to assess next steps. Plan: Listed above - pt to come into for assessment. documented in this encounter Plan of Treatment Not on file documented as of this encounter Visit Diagnoses Not on filedocumented in this encounter Additional Health Concerns Assessment Noted Time PHQ-9 Depression Total Score: 19 023 4:26 PM CDT PHQ-2 Depression Total Score: 3 06/02/20 23 4:26 PM CDT documented as of this encounter
--- OUTSIDE RECORDS SUMMARY | 2023-10-20 07:09 | XMS_ITS | Encounter Summary ---
Author Name Unknown Organization [facility] Address [address] [place] [address] Phone Care Team Providers Care Front End Loader Driver Name Role Phone Unavailable Primary Care Provider Unavailabl e Reason for Visit * Prior Authorization (Routine) - Closed Specialty Diagnoses / Procedures Referred By Contac t Referred To Contact Psych Rehab Diagnoses Bipolar II disorder () Trauma and stressor-related disorder Procedures MOTHER BABY ENROLLMENT Jazmine Potter, [facility] [address] [place] [phone] [address] Referral ID Status Reason Start Date Expiration Date Visits Re quested Visits Authorized [id number] Closed 05/09/2023 06/24/2023 105 105 Encounter Details Date Type Department Care Team Description 06/06/2023 12:30 PM CDT Psych [facility] [address] [place] [address] [phone] Karoline Benson MD 701 [facility] S[address] [place], [place] [phone] Dh, Mother Baby Discharge Disposition: Discharged to [...] Group Note - Alisha Hardy OTR/L - 06/06/2023 12:30 PM CDT Dept: [facility] Family [facility] Type of Service: Group Therapy Name of Group: Wellness Group Provider/Group Grain Elevator Superintendent: Alisha Hardy OTR/L Date of Service: 06/06/2023 Start Time: 12:45 PM Stop Time: 1:30 PM Number of Group Members Present: 4 Location of Service: Face to Face at [facility] NUTRITION ASSOCIATE SERVICES PROVIDED (if applicable): No Session Content (Intervention): Education was provided using the SAMHSA 8 Dimensions of Wellness with the goal of assisting patients to lead a healthy and fulfilling life. Group discussion was facilitated, and materials were provided and covered in detail. The Dimension of Wellness covered today: social. The patient's response to the intervention (including observations of the client and their readiness to learn): Patient presented as engaged and active. The patient did demonstrate readiness to learnboth verbally and non-verbally. The patient did demonstrate understanding of the material as evidenced by applying technique to personal example. Barriers to learning: No. Additional Observations of Individual Group Member: Patient participated in discussion about conflict interaction styles and reflected on guidelines they set in conversations with significant people in her network. Patient noted challenges with setting boundaries and shared in common with other group members that it is challenging, but possible to change dynamics in relationships. Alisha Hardy OTR/L, 06/15/2023 11:28 AM documented in this encounter Plan of [...]
--- OUTSIDE RECORDS SUMMARY | 2023-10-20 07:10 | XMS_ITS | Encounter Summary ---
Author Name Unknown Organization [facility] Address [address] [place] [address] Phone Care Team Providers Care Trade Show Coordinator Name Role Phone Unavailable Primary Care Provider Unavailabl e Reason for Visit * Prior Authorization (Routine) - Closed Specialty Diagnoses / Procedures Referred By Contac t Referred To Contact Psych Rehab Diagnoses Bipolar II disorder () Trauma and stressor-related disorder Procedures MOTHER BABY ENROLLMENT Jazmine Potter, [facility] [address] [place] [address] [address] Referral ID Status Reason Start Date Expiration Date Visits Re quested Visits Authorized [id number] Closed 05/09/2023 06/24/2023 105 105 Encounter Details Date Type Department Care Team Description 05/19/2023 1:30 PM CDT [facility] [address] [place] [address] [phone] Karoline Benson MD 701 [facility] S1 [address] [place], [place] [phone] Dh, Mother Baby Discharge Disposition: Discharged to [...] Group Note - Claire Workman LPCC - 05/19/2023 1:30 PM CDT Dept: [facility] Type of Service: Group Therapy Name of Group: Psychoeducation/Skills Group Provider/Group Manufacturing Software Engineer: Claire Workman LPCC Date of Service: 05/19/2023 Start Time: 1:45 PM Stop Time: 2:30 PM Number of Group Members Present: 7 Location of Service: Face to Face at [facility] Session Content (Intervention): The purpose of this group was to provide education through information-sharing and facilitated group discussion. Handouts were provided and covered in detail. Skills taught today included: Other: Weekend Planning, DBT (BOBO) The patient???s response to the intervention (including [...] No Other observations: N/A Claire Workman LPCC, 05/19/2023 3:36 PM documented in this encounter Plan of [...]
--- OUTSIDE RECORDS SUMMARY | 2023-10-20 07:10 | XMS_ITS | Encounter Summary ---
Author Name Unknown Organization [facility] Address [address] [place] [phone] Phone Care Team Providers Care Stage Setting Painter Apprentice Name Role Phone Unavailable Primary Care Provider Unavailabl e Reason for Visit * Reason Comments Mother Baby - Individual Psychotherapy * Prior Authorization (Routine) - Closed Specialty Diagnoses / Procedures Referred By Bernardo t Referred To Contact Psych Rehab Diagnoses Bipolar II disorder () Trauma and stressor-related disorder Procedures MOTHER BABY ENROLLMENT Jazmine Potter, [facility] [address] [place] [address] [address] Referral ID Status Reason Start Date Expiration Date Visits Re quested Visits Authorized [id number] Closed 05/09/2023 06/24/2023 105 105 Encounter Details Date Type Department Care Team Description 05/18/2023 2:30 PM CDT Psych Rehab [facility] [address] [place] [address] [phone] Claire Workman, [facility] [address] [place] [address] [phone] Mother Baby - Individual Psychotherapy Discharge Disposition: [...] this encounter Progress Notes * Claire Workman, [facility] - 05/18/2023 2:30 PM CDT [facility] Progress Note Date of Service: 05/18/2023 Start Time: 2:30 pm Stop Time: 3 pm Location of Visit: Face to Face at [facility] Participants in this Visit other than the patient/provider included: Pt's daughter present Type of Therapy: Individual, Modality: Emotion Focused [...] to follow as needed. Session Content: Kristina reports increased anxiety and panic over the weekend, reporting, my thoughts got way worse, in regards to intrusive thoughts. She reports that intrusive thoughts are sometimes virual with pictures or thoughts of ways harm could come to baby. She states she did not feel in danger of harmingherself or baby at any time. She processed feeling that past traumatic experiences are affecting her more strongly in this time of panic, noting that she feels on the edge of a panic attack. She and clinician discussed TIPP skills and ways she can regulate her emotions; she notes that panic and anxiety have subsided since attending [facility] programming this week. Patient Response to Intervention (including any plans to change the treatment if deemed ineffective): Patient presented as engaged and active. The patient did demonstrate understanding as evidenced by practicing the skill in session. Observations of Patient: MENTAL STATUS EXAMINATION: Appearance: No apparent distress, Casually groomed, and Dressed appropriately for weather Behavior/relationship to examiner/demeanor: Cooperative, Engaged, and Distressed Motor activity/EPS: Normal Speech rate: Rapid Speech volume: Normal Speech articulation: Normal Speech coherence: Normal Speech spontaneity: Normal Mood (subjective report): Neutral Affect (objective appearance): Subdued and Anxious/Nervous Thought Process (Associations): Logical/goal-directed Thought [...] and pt has copy Claire Workman LPCC, 05/18/2023 3:15 PM documented in this encounter [...]
--- OUTSIDE RECORDS SUMMARY | 2023-10-20 07:10 | XMS_ITS | Encounter Summary ---
Author Name Unknown Organization [facility] Address [address] [place] [address] Phone Care Team Providers Care General Expeditor Name Role Phone Unavailable Primary Care Provider Unavailabl e Reason for Visit * Prior Authorization (Routine) - Closed Specialty Diagnoses / Procedures Referred By Contac t Referred To Contact Psych Rehab Diagnoses Bipolar II disorder () Trauma and stressor-related disorder Procedures MOTHER BABY ENROLLMENT Jazmine Potter, [facility] 701 [place] [address] [address] Referral ID Status Reason Start Date Expiration Date Visits Re quested Visits Authorized [id number] Closed 05/09/2023 06/24/2023 105 105 Encounter Details Date Type Department Care Team Description 05/18/2023 10:15 AM CDT [facility] [address] [place] [address] [phone] Karoline Benson MD 701 [facility] S1 [address]60 [place], [place] [phone] Dh, Mother Baby Discharge Disposition: Discharged to [...] Group Note - Claire Workman LPCC - 05/18/2023 10:15 AM CDT Dept: [facility] Type of Service: Group Therapy Name of Group: Psychotherapy Process Group Provider/Group Silk Washing Machine Operator: Claire Workman LPCC Date of Service: 05/18/2023 Start Time: 10:15 AM Stop Time: 11:00 AM Number of Group Members Present: 5 Location of Service: Face to Face at [facility] Session Content of Today's Group: At the start of this group, participants were invited to check inby identifying themselves, describing their current emotional status, and identifying issues to address in this group. Topics addressed included intrusive thoughts, lack of support and advocating forself, and dialectics. The targeted goal and objective: To increase functioning by decreasing mental health symptoms that impact the ability to make safe choices Decrease frequency/intensity/duration of worry The patient's response to the intervention (including any plans to change the treatment if deemed ineffective): Kristina shared that she has had a bad several days, noting that she feels very sad and has had several difficult panic attacks recently. She reports more significant intrusive thoughts anddistress over the of her family dog over the weekend. She notes that she feels she is in a, constant fight or flight, reaction. She was open to encouragement to care for herself and rest today, and also felt encouraged by plan to meet with psychiatry and then with this clinician individually later in day. Observations of Individual Group Member: MENTAL STATUS EXAMINATION: Appearance: Distressed, Casually groomed, and Dressed appropriately for weather Behavior/relationship to examiner/demeanor: Cooperative, Engaged, and Pleasant Motor activity/EPS: Normal Speech rate: Rapid Speech volume: Normal Speech articulation: Normal Speech coherence: Normal Speech spontaneity: Normal Mood (subjective report): Neutral Affect (objective appearance): Tearful, Reactive/Full range, and Anxious/Nervous Thought Process (Associations): Logical/goal-directed Thought [...] Trauma and stressor-related disorder Claire Workman LPCC, 05/18/2023 11:55 AM documented in this encounter Plan of [...]
--- OUTSIDE RECORDS SUMMARY | 2023-10-20 07:10 | XMS_ITS | Encounter Summary ---
Author Name Unknown Organization [facility] Address [address] [facility] [place] [address] Phone Care Team Providers Care Bingo Checker Name Role Phone Unavailable Primary Care Provider Unavailabl e Encounter Details Date Type Department Care Team Description 05/19/2023 12:00 PM CDT Psych Rehab [facility] [address] [place] [address] [phone] Ray Esposito MD [address] [address] Discharge Disposition: Discharged to home or self [...] Progress Notes * Ray Esposito MD - 05/19/2023 12:00 PM CDT Not seen by this blurb writer in [facility] today. documented in this encounter Plan of Treatment Not on file documented as of this encounter Visit Diagnoses Not on filedocumented in this encounter Additional Health Concerns Assessment Noted Time PHQ-9 Depression Total Score: 12 023 3:14 PM CDT PHQ-2 Depression Total Score: 2 05/18/20 23 3:14 PM CDT documented as of this encounter
--- OUTSIDE RECORDS SUMMARY | 2023-10-20 07:10 | XMS_ITS | Encounter Summary ---
Author Name Unknown Organization [facility] Address [address] [place] [address] Phone Care Team Providers Care Senior Sourcing Manager Name Role Phone Unavailable Primary Care Provider Unavailabl e Encounter Details Date Type Department Care Team Description 05/13/2023 9:00 AM CDT Telemedicine Psych Rehab [facility] 701 [place], [place] [phone] Karoline Benson MD 701 [facility] S[address]60 [place] [address] Left without seen Discharge Disposition: Discharged to home or self [...] Progress Notes * Karoline Benson MD - 05/13/2023 9:00 AM CDT Not seen today documented in this encounter Plan of Treatment Not on file documented as of this encounter Visit Diagnoses Not on filedocumented in this encounter Additional Health Concerns Assessment Noted Time PHQ-9 Depression Total Score: 12 023 3:56 PM CDT PHQ-2 Depression Total Score: 1 05/11/20 23 3:56 PM CDT documented as of this encounter
--- OUTSIDE RECORDS SUMMARY | 2023-10-20 07:10 | XMS_ITS | Encounter Summary ---
Author Name Unknown Organization [facility] Address [address] [place] [address] Phone Care Team Providers Care Package Reinspector Name Role Phone Unavailable Primary Care Provider Unavailabl e Reason for Visit * Prior Authorization (Routine) - Closed Specialty Diagnoses / Procedures Referred By Contac t Referred To Contact Psych Rehab Diagnoses Bipolar II disorder () Trauma and stressor-related disorder Procedures MOTHER BABY ENROLLMENT Jazmine Potter, [facility] [address] [place] [address] [address] [address] [address] Referral ID Status Reason Start Date Expiration Date Visits Re quested Visits Authorized [id number] Closed 05/09/2023 06/24/2023 105 105 Encounter Details Date Type Department Care Team Description 05/23/2023 12:30 PM CDT [facility] [address] [place] [address] [phone] Karoline Benson MD 701 [facility] S1 [address]60 [place], [place] [phone] Dh, Mother Baby Discharge Disposition: Discharged to [...] Group Note - Kiana Borges RN - 05/23/2023 12:30 PM CDT Dept: [facility] Type of Service: Group Therapy Provider/Group Technical Support Analyst: Kiana Borges RN Date of Service: 05/23/2023 Start Time: 12:45 PM Stop Time: 1:30 PM Number of Group Members Present: 6 Name of Group: Psycho education Location of Service: Face to Face at [facility] TRANSACTIONAL PARALEGAL SERVICES PROVIDED (if applicable): No Session Content of Today's Group (including goal/intended outcome): Medications. The patient's response to the intervention: Kiana Borges RN Name of Group: Psycho education Location of Service: Face to Face at [facility] TRANSACTIONAL PARALEGAL SERVICES PROVIDED (if applicable): No Session Content of Today's Group (including goal/intended outcome): Medications. Merry presented as: D: alert and actively involved in the discussion. A: Educational material was presented, utilizing handouts and encouraging discussion. R: Based on comments and questions Merry appears to have a reasonable understanding of the information and is open to learning about the topics. Her baby was present with her. P: To continue with [facility]. Encourage follow up in psychotherapy group regarding any outstanding issues. Observations of Individual Group Member: the patient arrived to group on time and remained the entire 45-minute session. Appeared alert and attentive to material presented and group members. Kiana Borges RN, 05/23/2023 3:16 PM documented in this encounter Plan of [...]
--- OUTSIDE RECORDS SUMMARY | 2023-10-20 07:10 | XMS_ITS | Encounter Summary ---
Author Name Unknown Organization [facility] Address [address] [place] [phone] Phone Care Team Providers Care Press Set Up Name Role Phone Unavailable Primary Care Provider Unavailabl e Reason for Visit * Prior Authorization (Routine) - Closed Specialty Diagnoses / Procedures Referred By Contac t Referred To Contact Psych Rehab Diagnoses Bipolar II disorder () Trauma and stressor-related disorder Procedures MOTHER BABY ENROLLMENT Jazmine Potter, [facility] [address] [place] [id number] [address] Referral ID Status Reason Start Date Expiration Date Visits Re quested Visits Authorized [id number] Closed 05/09/2023 06/24/[phone] Encounter Details Date Type Department Care Team Description 05/16/2023 1:45 PM CDT [facility] [address] [place] [address] [phone] Karoline Benson MD 701 [facility] [address] [place], [place] [phone] Dh, Mother Baby Discharge Disposition: Discharged to home or self care (routine discharge) Social History Tobacco Use Types Packs/Day Years Used Date Smoking Tobacco: Unknown PHQ-2 Answer Date Recorded PHQ-2 Subtotal 1 05/11/2023 Sex and Gender Information Value Date Recorded Sex Assigned at Female 05/06/2023 2:19 PM CDT Gender Identity Female 05/06/2023 2:19 PM CDT Sexual Orientation Not on file documented as of this encounter Miscellaneous Notes * Group Note - Jazmine Potter LICSW - 05/16/2023 1:45 PM CDT Dept: [facility] Type of Service: Group Therapy Name of Group: Psychoeducation/Skills Group Provider/Group Unemployment Insurance Director: Jazmine Potter LICSW Date of Service: 05/16/2023 Start Time: 1:45 PM Stop Time: 2:30 PM Number of Group Members Present: 7 Location of Service: Face to Face at [facility] NUMERICAL CONTROL DRILL PRESS OPERATOR SERVICES PROVIDED (if applicable): No Session Content (Intervention): The purpose of this group was to provide education through information-sharing and facilitated group discussion. Handouts were provided and covered in detail. Skills taught today included: Social Emotional Education (describe discussed core beliefs.) The patient???s response to the intervention (including observations of the patient and their readiness to learn): Patient presented as engaged. The patient did demonstrate readiness to learn both verbally and non-verbally. The patient did demonstrate understanding of the material as evidenced by providing an example, sharing own experience, and asking questions. Barriers to learning: No Other observations: N/A Jazmine Potter LICSW, 05/16/2023 2:49 PM documented in this encounter Plan of [...]
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
--- OUTSIDE RECORDS SUMMARY | 2023-10-20 07:10 | XMS_ITS | Encounter Summary ---
Author Name Unknown Organization [facility] Address [address] [place] [address] Phone Care Team Providers Care Technical Training Specialist Name Role Phone Unavailable Primary Care Provider Unavailabl e Reason for Visit * Prior Authorization (Routine) - Closed Specialty Diagnoses / Procedures Referred By Contac t Referred To Contact Psych Rehab Diagnoses Bipolar II disorder () Trauma and stressor-related disorder Procedures MOTHER BABY ENROLLMENT Jazmine Potter, [facility] [address] [place] [address] [address] Referral ID Status Reason Start Date Expiration Date Visits Re quested Visits Authorized [id number] Closed 05/09/2023 06/24/[phone] Encounter Details Date Type Department Care Team Description 05/17/2023 11:00 AM CDT [facility] [address] [place] [phone] Karoline Benson MD 701 [facility] S[address]60 [place], [place] [phone] Dh, Mother Baby Discharge Disposition: Discharged to [...] Group Note - Sara Cunha PT - 05/17/2023 11:00 AM CDT Dept: [facility] Type of Service: Group Therapy Provider/Group Epic Analyst: Sara Cunha PT Date of Service: 05/17/2023 Start Time: 11:00 AM Stop Time: 12:00 PM Number of Group Members Present: 4 Name of Group: Movement Location of Service: Face to Face at a [facility] NOVELTY WORKER SERVICES PROVIDED (if applicable): No Session Content (Intervention) (including goal/intended outcome): Mindful Movement. Encouraged group members to participate in mind-body skills facilitated by [facility] Trauma-Informed Yoga providers. Trauma-sensitive mind-body skills and practice were used to safely experiment with connecting with one's body. Movement included practicing - breathing, moving, strengthening and resting.Group members were invited to check in and notice their bodies. The psychoeducation topic related to the mind-body skills today was movement for improved digestion. The patient's response to the intervention: Patient presented as engaged and active. The patient did participate fully in the activity. Observations of Individual Group Member: actively participated in movement Sara Cunha PT, 05/19/2023 12:14 PM documented in this encounter Plan of Treatment Not on file documented as of this encounter Visit Diagnoses Diagnosis Trauma and stressor-related disorder- Primary documented in this encounter Additional Health Concerns Assessment Noted Time PHQ-9 Depression Total Score: 12 023 3:56 PM CDT PHQ-2 Depression Total Score: 1 05/11/20 23 3:56 PM CDT documented as of this encounter
--- OUTSIDE RECORDS SUMMARY | 2023-10-20 07:10 | XMS_ITS | Encounter Summary ---
Author Name Unknown Organization [facility] Address [address] [place] [phone] Phone Care Team Providers Care Development Chemist Name Role Phone Unavailable Primary Care Provider Unavailabl e Reason for Visit * Prior Authorization (Routine) - Closed Specialty Diagnoses / Procedures Referred By Contac t Referred To Contact Psych Rehab Diagnoses Bipolar II disorder () Trauma and stressor-related disorder Procedures MOTHER BABY ENROLLMENT Jazmine Potter, [facility] [address] [place] [address] [address] Referral ID Status Reason Start Date Expiration Date Visits Re quested Visits Authorized [id number] Closed 05/09/2023 06/24/2023 105 105 Encounter Details Date Type Department Care Team Description 05/18/2023 12:30 PM CDT [facility] [address] [place] [address] [phone] Karoline Benson MD 701 [facility] [address] [place], [place] [phone] Dh, Mother Baby Discharge Disposition: Discharged to [...] Group Note - Alisha Hardy OTR/L - 05/18/2023 12:30 PM CDT Dept: [facility] Type of Service: Group Therapy Name of Group: Wellness Group Provider/Group Iron Worker Foreman: Alisha Hardy OTR/L Date of Service: 05/18/2023 Start Time: 12:45 PM Stop Time: 1:30 PM Number of Group Members Present: 6 Location of Service: Face to Face at [facility] SUPERINTENDENT DISTRIBUTION SERVICES PROVIDED (if applicable): No Session Content (Intervention): Education was provided using the SAMHSA 8 Dimensions of Wellness with the goal of assisting patients to lead a healthy and fulfilling life. Group discussion was facilitated, and materials were provided and covered in detail. The Dimension of Wellness covered today: emotional, Self-compassion vs. Self-esteem. Modalities: Rani AGUSTIN Talk with discussion, Short Form Self compassion inventory, check out per turn The patient???s response to the intervention (including observations of the patient and their readiness to learn): Patient presented as engaged. The patient did demonstrate readiness to learn both verbally and non-verbally. The patient did demonstrate understanding of the material as evidenced by sharing own experience and participating in the group discussion. Barriers to learning: No The patient's response to the intervention (including observations of the client, progress made, etc.): Patient was engaged with both individual and group aspects of session. Patient agreed that developing a healthy level of self- compassion would help them feel more engaged in parenting and aspectsof family life. Patient endorsed understanding of mindfulness, self-kindness, and common humanity. Alisha Hardy OTR/L, 05/18/2023 3:47 PM documented in this encounter Plan of [...]
--- OUTSIDE RECORDS SUMMARY | 2023-10-20 07:10 | XMS_ITS | Encounter Summary ---
Author Name Unknown Organization [facility] Address [address] [place] [address] Phone Care Team Providers Care Power Wood Sawyer Name Role Phone Unavailable Primary Care Provider Unavailabl e Reason for Visit * Reason Comments Blood Pressure Check Encounter Details Date Type Department Care Team Description 05/18/[address] [facility] Family [facility] [address] [place] [address] [phone] Kiana Borges RN [facility] [address] [place] [address] Blood Pressure Check Social History Tobacco Use [...] Sign Reading Time Taken Comments Blood Pressure 118/82 05/18/2023 12:32 PM CDT Pulse 100 05/18/2023 12:32 PM CDT Temperature - - Respiratory Rate - - Oxygen Saturation - - Inhaled Oxygen Concentration - - Weight - - Height - - Body Mass Index - - documented in this encounter Progress Notes * Kiana Borges RN - 05/18/2023 4:42 PM CDT Assessed BP per Dr. Mejia request as Pt reports mild symptoms of dizziness at times, especiallywith positional changes. Pt sitting BP was 115/69 HR 85. Standing BP was 118/82 HR 100. Pt reportedmild dizziness from sitting to standing that went away shortly after. Pt encouraged to drink enoughwater and change positions slowly. Pt verbalized an understanding. Notified Dr. Mejia of VS. documented in this encounter Plan of Treatment Not on file documented as of this encounter Visit Diagnoses Not on filedocumented in this encounter Additional Health Concerns Assessment Noted Time PHQ-9 Depression Total Score: 12 023 3:14 PM CDT PHQ-2 Depression Total Score: 2 05/18/20 23 3:14 PM CDT documented as of this encounter
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
--- OUTSIDE RECORDS SUMMARY | 2023-10-20 07:10 | XMS_ITS | Encounter Summary ---
Author Name Unknown Organization [facility] Address [address] [place] [phone] Phone Care Team Providers Care Complaint Investigations Officer Name Role Phone Unavailable Primary Care Provider Unavailabl e Reason for Visit * Prior Authorization (Routine) - Closed Specialty Diagnoses / Procedures Referred By Contac t Referred To Contact Psych Rehab Diagnoses Bipolar II disorder () Trauma and stressor-related disorder Procedures MOTHER BABY ENROLLMENT Jazmine Potter, [facility] [address] [place] [phone] [address] Referral ID Status Reason Start Date Expiration Date Visits Re quested Visits Authorized [id number] Closed 05/09/2023 06/24/2023 105 105 Encounter Details Date Type Department Care Team Description 05/12/2023 1:30 PM CDT [facility] [address] [place] [address] [phone] Karoline Benson MD 701 [facility] [address]60 [place], [place] [phone] Dh, Mother Baby Discharge Disposition: Discharged to [...] encounter Miscellaneous Notes * Group Note - Noy Chen LICSW - 05/12/2023 1:30 PM CDT Dept: [facility] Type of Service: Group Therapy Name of Group: Psychoeducation/Skills Group Provider/Group Gluer Machine Operator: Noy Chen LICSW Date of Service: 05/12/2023 Start Time: 1:45 PM Stop Time: 2:30 PM Number of Group Members Present: 5 Location of Service: Face to Face at [facility] GRADUATE RECRUITER SERVICES PROVIDED (if applicable): No Session Content (Intervention): The purpose of this group was to provide education through information-sharing and facilitated group discussion. Handouts were provided and covered in detail. Skills taught today included: DBT Distress Tolerance skills of coping ahead and Weekend Planning The patient???s response to the intervention (including observations of the patient and their readiness to learn): Patient presented as engaged. The patient did demonstrate readiness to learn both verbally and non-verbally. The patient did demonstrate understanding of the material as evidenced by sharing own experience and participating in the group discussion. Barriers to learning: No Other observations: Noy Barrera LICSW, 05/13/2023 3:37 PM documented in this encounter Plan of [...]
--- OUTSIDE RECORDS SUMMARY | 2023-10-20 07:10 | XMS_ITS | Encounter Summary ---
Author Name Unknown Organization [facility][Note 3] Address [address] [place] [phone] Phone Care Team Providers Care Fur Pointer Name Role Phone Unavailable Primary Care Provider Unavailabl e Reason for Visit * Prior Authorization (Routine) - Closed Specialty Diagnoses / Procedures Referred By Contac t Referred To Contact Psych Rehab Diagnoses Bipolar II disorder () Trauma and stressor-related disorder Procedures MOTHER BABY ENROLLMENT Jazmine Potter, [facility] [address] [place] [phone] [address] Referral ID Status Reason Start Date Expiration Date Visits Re quested Visits Authorized [id number] Closed 05/09/2023 06/24/2023 105 105 Encounter Details Date Type Department Care Team Description 05/16/2023 12:30 PM CDT [facility] [address] [place] [address] [phone] Karoline Benson MD 701 [facility] S[address]60 [place], [place] [phone] Dh, Mother Baby Discharge Disposition: Discharged to [...] Group Note - Alisha Hardy OTR/L - 05/16/2023 12:30 PM CDT Dept: [facility] Type of Service: Group Therapy Name of Group: Wellness Group Provider/Group Correction Officer: Alisha Hardy OTR/L Date of Service: 05/16/2023 Start Time: 12:45 PM Stop Time: 1:30 PM Number of Group Members Present: 6 Location of Service: Face to Face at [facility] DIETARY CLERK SERVICES PROVIDED (if applicable): No Session Content (Intervention): Education was provided using the SAMHSA 8 Dimensions of Wellness with the goal of assisting patients to lead a healthy and fulfilling life. Group discussion was facilitated, and materials were provided and covered in detail. The Dimension of Wellness covered today: emotional and social. The patient???s response to the intervention (including [...] agreed that developing a healthy level of empathy is important in building and maintaining relationships. Patient noted feeling somewhat skilled regarding their observation of their ability to be self-aware and empathetic in a balanced way. Patient was engaged with both individual and group aspects of session. Patient agreed that developing a healthy level of empathy is important in building and maintaining relationships. Patient noted job stress and relationship stress are factors regarding their observation of their ability to be self-aware and empathetic in a balanced, middle ground way. Naming her own needs, managing expectations, and setting healthy boundaries were discussed. Alisha Hardy OTR/L, 05/16/2023 3:47 PM documented in this encounter Plan [...]
--- OUTSIDE RECORDS SUMMARY | 2023-10-20 07:10 | XMS_ITS | Encounter Summary ---
Author Name Unknown Organization [facility] Address [address] [place] [phone] Phone Care Team Providers Care Straightening Machine Feeder Name Role Phone Unavailable Primary Care Provider Unavailabl e Reason for Visit * Prior Authorization (Routine) - Closed Specialty Diagnoses / Procedures Referred By Contac t Referred To Contact Psych Rehab Diagnoses Bipolar II disorder () Trauma and stressor-related disorder Procedures MOTHER BABY ENROLLMENT Jazmine Potter, [facility] 701 [place] [address] [address] Referral ID Status Reason Start Date Expiration Date Visits Re quested Visits Authorized [id number] Closed 05/09/2023 06/24/2023 105 105 Encounter Details Date Type Department Care Team Description 05/12/2023 11:00 AM CDT [facility] [address] [place] [address] [phone] Karoline Benson MD 701 [facility] [address]60 [place], [place] [phone] Dh, Mother Baby Discharge Disposition: Discharged to [...] Group Note - Sara Cunha PT - 05/12/2023 11:00 AM CDT Dept: [facility] Type of Service: Group Therapy Provider/Group Energy Engineer: Sara Cunha PT Date of Service: 05/12/2023 Start Time: 11:00 AM Stop Time: 12:00 PM Number of Group Members Present: 5 Name of Group: Movement Location of Service: Face to Face at a [facility] PRESSURISED CONTAINER FILLER SERVICES PROVIDED (if applicable): No Session Content (Intervention) (including goal/intended outcome): Mindful Movement. Encouraged group members to participate in mind-body skills facilitated by [facility] Trauma-Informed Yoga providers. Trauma-sensitive mind-body skills and practice were used to safely experiment with connecting with one's body. Movement included practicing - breathing, moving, strengthening and resting.Group members were invited to check in and notice their bodies. The psychoeducation topic related to the mind-body skills today was mindful self compassion. The patient's response to the intervention: Patient presented as engaged and active. The patient did participate fully in the activity. Observations of Individual Group Member: actively participated as able - needed to pause practice occasionally but much more engaged than previous session Sara Cunha PT, 05/12/2023 12:45 PM documented in this encounter Plan of [...]
--- OUTSIDE RECORDS SUMMARY | 2023-10-20 07:10 | XMS_ITS | Encounter Summary ---
Author Name Unknown Organization [facility] Address [address] [place] [address] Phone Care Team Providers Care Blueprint Assembler Name Role Phone Unavailable Primary Care Provider Unavailabl e Reason for Visit * Prior Authorization (Routine) - Closed Specialty Diagnoses / Procedures Referred By Contac t Referred To Contact Psych Rehab Diagnoses Bipolar II disorder () Trauma and stressor-related disorder Procedures MOTHER BABY ENROLLMENT Jazmine Potter, [facility] [address] [place] [address] [address] Referral ID Status Reason Start Date Expiration Date Visits Re quested Visits Authorized [id number] Closed 05/09/2023 06/24/2023 105 105 Encounter Details Date Type Department Care Team Description 05/18/2023 1:45 PM CDT [facility] [address] [place] [address] [phone] Karoline Benson MD 701 [facility] [address] [place], [place] [phone] Dh, Mother Baby Discharge Disposition: Discharged to [...] Group Note - Jazmine Potter LICSW - 05/18/2023 1:45 PM CDT Dept: [facility] Type of Service: Group Therapy Name of Group: Psychoeducation/Skills Group Provider/Group Tire Shop Mechanic: Jazmine Potter LICSW Date of Service: 05/18/2023 Start Time: 1:45 PM Stop Time: 2:30 PM Number of Group Members Present: 5 Location of Service: Face to Face at [facility] PRINTED CIRCUIT BOARD REWORKER SERVICES PROVIDED (if applicable): No Session Content (Intervention): The purpose of this group was to provide education through information-sharing and facilitated group discussion. Handouts were provided and covered in detail. Skills taught today included: Other: Psychoeducation group regarding intrusive thoughts. The patient???s response to the intervention (including observations of the patient and their readiness to learn): Patient presented as engaged. The patient did demonstrate readiness to learn both verbally and non-verbally. The patient did demonstrate understanding of the material as evidenced by providing an example, sharing own experience, sharing previous knowledge of topic, and non-verbals (i.e., nodding head in agreement) . Barriers to learning: No Other observations: N/A Jazmine Potter LICSW, 05/18/2023 2:41 PM documented in this encounter Plan of [...]
--- OUTSIDE RECORDS SUMMARY | 2023-10-20 07:10 | XMS_ITS | Encounter Summary ---
Author Name Unknown Organization [facility] Address [address] [place] [phone] Phone Care Team Providers Care Policy Analyst Name Role Phone Unavailable Primary Care Provider Unavailabl e Reason for Visit * Prior Authorization (Routine) - Closed Specialty Diagnoses / Procedures Referred By Contac t Referred To Contact Psych Rehab Diagnoses Bipolar II disorder () Trauma and stressor-related disorder Procedures MOTHER BABY ENROLLMENT Jazmine Potter, [facility] 701 [place] [address] [address] Referral ID Status Reason Start Date Expiration Date Visits Re quested Visits Authorized [id number] Closed 05/09/2023 06/24/2023 105 105 Encounter Details Date Type Department Care Team Description 05/19/2023 10:15 AM CDT [facility] [address] [place] [address] [phone] Karoline Benson MD 701 [facility] S[address]60 [place], [place] [phone] Dh, Mother Baby Discharge Disposition: Discharged to [...] Note - Claire Workman LPCC - 05/19/2023 10:15 AM CDT Dept: [facility] Type of Service: Group Therapy Name of Group: Psychotherapy Process Group Provider/Group Oss Architect: Claire Workman LPCC Date of Service: 05/19/2023 Start Time: 10:15 AM Stop Time: 11:00 AM Number of Group Members Present: 5 Location of Service: Face to Face at [facility] Session Content of Today's Group: At the start of this group, participants were invited to check inby identifying themselves, describing their current emotional status, and identifying issues to address in this group. Topics addressed included coping with depressive symptoms and boundary-setting. The targeted goal and objective: To increase functioning by decreasing mental health symptoms that impact the ability to make safe choices Decrease frequency/intensity/duration of worry The patient's response to the intervention (including any plans to change the treatment if deemed ineffective): Kristina reports feeling tired and reports she has continued to connect with her partner as she had hoped earlier in the week. She notes that this feels good, but also leaves her with less time to sleep. She processed concerns around her physical health and connected this to desire to find a new provider. Observations of Individual Group Member: MENTAL STATUS EXAMINATION: Appearance: No apparent distress, Neatly groomed, and Dressed appropriately for weather Behavior/relationship [...] Trauma and stressor-related disorder Claire Workman LPCC, 05/19/2023 3:34 PM documented in this encounter Plan of [...]
--- OUTSIDE RECORDS SUMMARY | 2023-10-20 07:10 | XMS_ITS | Encounter Summary ---
Author Name Unknown Organization [facility] Address [address] [place] [phone] Phone Care Team Providers Care Pbx Inspector Name Role Phone Unavailable Primary Care Provider Unavailabl e Reason for Visit * Prior Authorization (Routine) - Closed Specialty Diagnoses / Procedures Referred By Contac t Referred To Contact Psych Rehab Diagnoses Bipolar II disorder () Trauma and stressor-related disorder Procedures MOTHER BABY ENROLLMENT Jazmine Potter, [facility] [address] [place] [address] [address] Referral ID Status Reason Start Date Expiration Date Visits Re quested Visits Authorized [id number] Closed 05/09/2023 06/24/2023 105 105 Encounter Details Date Type Department Care Team Description 05/19/2023 12:30 PM CDT [facility] [address] [place] [address] [phone] Karoline Benson MD 701 [facility] S[address] [place], [place] [phone] Dh, Mother Baby Discharge Disposition: Discharged to [...] Note - Claire Workman LPCC - 05/19/2023 12:30 PM CDT Dept: [facility] Type of Service: Group Therapy Name of Group: Psychoeducation/Skills Group Provider/Group Marketing Intern: Claire Workman LPCC Date of Service: 05/19/2023 Start Time: 12:45 PM Stop Time: 1:30 PM Number of Group Members Present: 5 Location of Service: Face to Face at [facility] Session Content (Intervention): The purpose of this group was to provide education through information-sharing and facilitated group discussion. Handouts were provided and covered in detail. Skills taught today included: Parenting Education (describe [place] of Security Chapters 1 and 2) The patient???s response to the intervention (including [...] Other observations: N/A Claire Workman LPCC, 05/19/2023 3:35 PM documented in this encounter Plan of Treatment Not on file documented as of this encounter Visit Diagnoses Not on filedocumented in this encounter Additional Health Concerns Assessment Noted Time PHQ-9 Depression Total Score: 12 023 3:14 PM CDT PHQ-2 Depression Total Score: 2 05/18/20 23 3:14 PM CDT documented as of this encounter
--- OUTSIDE RECORDS SUMMARY | 2023-10-20 07:10 | XMS_ITS | Encounter Summary ---
Author Name Unknown Organization [facility] Address [address] [place] [address] Phone Care Team Providers Care Theater Company Producer Name Role Phone Unavailable Primary Care Provider Unavailabl e Reason for Visit * Prior Authorization (Routine) - Closed Specialty Diagnoses / Procedures Referred By Contac t Referred To Contact Psych Rehab Diagnoses Bipolar II disorder () Trauma and stressor-related disorder Procedures MOTHER BABY ENROLLMENT Jazmine Potter, [facility] 701 [place] [address] [address] Referral ID Status Reason Start Date Expiration Date Visits Re quested Visits Authorized [id number] Closed 05/09/2023 06/24/2023 105 105 Encounter Details Date Type Department Care Team Description 05/23/2023 11:00 AM CDT [facility] [address] [place] [address] [phone] Karoline Benson MD 701 [facility] [address] [place], [place] [phone] Dh, Mother Baby Discharge Disposition: Discharged to [...] Group Note - Claire Workman LPCC - 05/23/2023 11:00 AM CDT Dept: [facility] Type of Service: Group Therapy Name of Group: Psychoeducation/Skills Group Provider/Group Measurement Superintendent: Claire Workman LPCC Date of Service: 05/23/2023 Start Time: 11:15 AM Stop Time: 12:00 PM Number of Group Members Present: 5 Location of Service: Face to Face at [facility] Session Content (Intervention): The purpose of this group was to provide education through information-sharing and facilitated group discussion. Handouts were provided and covered in detail. Skills taught today included: Parenting Education (describe [place] of Security Chapter 2) The patient???s response to the intervention [...] . Barriers to learning: No Other observations: N/A. Claire Workman LPCC, 05/23/2023 1:14 PM documented in this encounter Plan of [...]
--- OUTSIDE RECORDS SUMMARY | 2023-10-20 07:10 | XMS_ITS | Encounter Summary ---
Author Name Unknown Organization [facility] Address [address] [place] [address] Phone Care Team Providers Care Data Center Project Manager Name Role Phone Unavailable Primary Care Provider Unavailabl e Reason for Visit * Prior Authorization (Routine) - Closed Specialty Diagnoses / Procedures Referred By Contac t Referred To Contact Psych Rehab Diagnoses Bipolar II disorder () Trauma and stressor-related disorder Procedures MOTHER BABY ENROLLMENT Jazmine Potter, [facility] 701 [place] [address] [address] Referral ID Status Reason Start Date Expiration Date Visits Re quested Visits Authorized [id number] Closed 05/09/2023 06/24/2023 105 105 Encounter Details Date Type Department Care Team Description 05/17/2023 10:15 AM CDT [facility] [address] [place] [address] [phone] Karolnie Benson MD 701 [facility] [address] [place], [place] [phone] Dh, Mother Baby Discharge Disposition: Discharged to [...] Group Note - Jazmine Potter LICSW - 05/17/2023 10:15 AM CDT Dept: [facility] Type of Service: Group Therapy Name of Group: Psychotherapy Process Group Provider/Group Automation Mechanic: Jazmine Potter LICSW Date of Service: 05/17/2023 Start Time: 10:15 AM Stop Time: 11:00 AM Number of Group Members Present: 7 Location of Service: Face to Face at [facility] TANK WASHER SERVICES PROVIDED (if applicable): No Session Content of Today's Group: At the start of this group, participants were invited to check inby identifying themselves, describing their current emotional status, and identifying issues to address in this group. Topics addressed included healthy boundaries, self-compassion and emotional regulation. The targeted goal and objective: To increase functioning by decreasing mental health symptoms that impact the ability to make safe choices The patient's response to the intervention (including any plans to change the treatment if deemed ineffective): Patient reported feeling dysregulated due to chaotic morning getting to programming. She demonstrated ability to effectively utilize TIPP skills to regulate anxiety. Reports ongoing thoughts of recent trauma. Engaged with group members and provided support and validation. Observations of Individual Group Member: MENTAL STATUS EXAMINATION: Appearance: Distressed Behavior/relationship to examiner/demeanor: Cooperative and Engaged Motor activity/EPS: Normal Speech rate: Normal Speech volume: Normal Speech articulation: Normal Speech coherence: Normal Speech spontaneity: Normal Mood (subjective report): Anxious Affect (objective appearance): Anxious/Nervous Thought Process (Associations): Logical/goal-directed Thought process (Rate): Normal Thought content: Normal Abnormal Perception: None Sensorium: Alert Attention/Concentration: Normal Memory: Immediate recall intact, Short-term memory intact, and Long-term memory intact Computation: Intact Language: Intact Fund of Knowledge/Intelligence: Average Abstraction: Normal Insight: Adequate Judgment: Adequate. Patient denies thoughts of suicide, thoughts of self-harm/self-Injury, and thoughts of harm to others. Diagnoses: No diagnosis found. Jazmine Potter LICSW, 05/17/2023 3:36 PM documented in this encounter Plan [...]
--- OUTSIDE RECORDS SUMMARY | 2023-10-20 07:10 | XMS_ITS | Encounter Summary ---
Author Name Unknown Organization [facility] Address [address] [place] [address] Phone Care Team Providers Care Bagging Machine Operator Name Role Phone Unavailable Primary Care Provider Unavailabl e Reason for Visit * Prior Authorization (Routine) - Closed Specialty Diagnoses / Procedures Referred By Contac t Referred To Contact Psych Rehab Diagnoses Bipolar II disorder () Trauma and stressor-related disorder Procedures MOTHER BABY ENROLLMENT Jazmine Potter, [facility] [address] [place] [address] [address] [address] Referral ID Status Reason Start Date Expiration Date Visits Re quested Visits Authorized [id number] Closed 05/09/2023 06/24/2023 105 105 Encounter Details Date Type Department Care Team Description 05/18/2023 9:30 AM CDT [facility] [address] [place] [address] [phone] Karoline Benson MD 701 [facility] [address] [place], [place] [phone] Dh, Mother Baby Discharge Disposition: Discharged to [...] Note - Claire Workman LPCC - 05/18/2023 9:30 AM CDT Dept: [facility] Type of Service: Group Therapy Name of Group: Psychoeducation/Skills Group Provider/Group Draughtsman: Claire Workman LPCC Date of Service: 05/18/2023 Start Time: 9:30 AM Stop Time: 10:15 AM Number of Group Members Present: 4 Location of Service: Face to Face at [facility] Session Content (Intervention): Welcomed any new [...] No Other observations: N/A Claire Workman LPCC, 05/18/2023 11:54 AM documented in this encounter Plan [...]
--- OUTSIDE RECORDS SUMMARY | 2023-10-20 07:10 | XMS_ITS | Encounter Summary ---
Author Name Unknown Organization [facility] Address [address] [place] [phone] Phone Care Team Providers Care Scientific Publications Editor Name Role Phone Unavailable Primary Care Provider Unavailabl e Reason for Visit * Reason Onset Date Comments Psych Medication Management 05/18/2023 Encounter Details Date Type Department Care Team Description 05/18/2023 11:00 AM CDT Psych Rehab [facility] [address] [place] [address] [id number] Karissa Mejia MD [address] [place] [address] [phone] Psych Medication Management Discharge Disposition: Discharged to [...] * Patient Instructions* Karissa Mejia MD - 05/18/2023 11:00 AM CDT Only the psychiatric medicines on this list were confirmed at this visit. Please review the other medicines on this list with the person who prescribed them to make sure that they are correct. documented in this encounter Progress Notes * Karissa Mejia MD - 05/18/2023 11:00 AM CDT Images from the original note were not included. [facility], Psychiatry Visit Started the Day Hospital on: 05/09/23 Merry Rooney is a 22 y.o. mother of baby (Aidan born 05/03/23) and 2 year old son (Chuy). Referred by [facility] inpatient Cultural Context: white, German and Kyrgyz Pronouns: she/her/hers; Supports: [place] -- supportive Therapist: ; PCP: ; OB-PERFORMING ARTS TECHNICIANS: Antonio Ob; Seat Covers Trimmer: Feeding Method: breast and bottle feeding with [...] injuries and one recent seizure preeclampsia Assessment Increased emotion regulation and resolution of psychotic symptoms although emerging and severe ego dystonic intrusive thoughts in this brave, caring, resilient 22 y.o. mother of 2 following aharrowing course with what sounds like a delirium with psychotic symptoms and possible pr eeclampsia leading to transfer to [facility]. Seen by psychiatry (Dr Ortiz) at [facility], discontinued from her sertraline and started on Seroquel which has been helpful for sleep, regulation, and resolution of her acute psychotic symptoms. 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 [...] structure). 2) MEDICATIONS: - Reviewed treatment options. -Discontinue Seroquel 25 mg given daytime grogginess and start risperidone 0.25 mg nightly and 0.25mg daily as needed for intrusive thoughts -Continue Guanfacine 2mg. She has taken it in the past for ADHD and found it helpful. Risks and benefits reviewed including use while nursing (she is using both breast and formula) 3) LABS: Will review labs in [facility] 4) Continue to monitor symptoms 5) Engage patient in individual and group therapy process in the [facility]. 6) Review old records. 7) Contact collateral informants as indicated. 8) Arrange appropriate outpatient follow-up at the conclusion of the [facility] 9) RN to check blood pressure today given occasional lightheadedness and recent restart of guanfacine. She has been holding nifedipine as prescribed in the emergency room given blood pressures have been within normal limits. Has an appointment with PCP to discuss further next week. Intervening History Last met with Dr. Benson 05/16/23 at which time Seroquel was lowered 50mg -->25mg given daytime sedation and guanfacine 2mg was restarted for ADHD. Today: -Overall feeling ok and has found the group helpful and supportive. -Feels restarting guanfacine has been helpful for ADHD, feels less groggy on the lower dose of Seroquel. Describes never feeling great on the Seroquel although is grateful for the acute relief it offered when she needed it. Does not feel that going down on the Seroquel has contributed to worsening intrusive thoughts. -Shares more about her intrusive thoughts today. Becomes tearful in discussing them given the ego-dystonic nature and fear around them. I would never want to hurt my kids. Some avoidance after obsessions such as avoiding holding baby when she has the intrusive thought if what if I drop baby. Atthe same time has been able to somewhat gently challenge these thoughts and continue to engage in caretaking behaviors. We spend much of our visit today on psychoeducation around intrusive thoughts reminding her that she is not these thoughts and the difference between them and psychosis (also acknowledging potential previous psychotic features she has experienced) - We also talked about the overlap of ADHD with hypomania (distractibility, racing thoughts, impulsivity) and she said she hasn't had hypomanic symptoms like grandiosity, decreased need for sleep, pressured speech. -Denies SI/HI/psychotic symptoms. Baby/Children: Toddler Chuy -- all over the place, sweetheart, cute, loves animals and blocks and tractors. Baby Latha - amazing, the easiest baby ever. Recent Substance Use: denies Reproductive Plans/Menstrual Cycle: Not discussed today Current Psychiatric Medications: Psychiatric medications at start of today's visit: -Seroquel 25 mg HS and 12.5mg bid prn anxiety (has not been using daytime as needed) -Guanfacine 2 mg nightly Safety Screening: SI: Ms. Rooney reports in interview no suicidal thoughts. HI: She reports no violent ideation. She reports current abuse concerns: none. Most Recent C-SSRS Calculated C-SSRS Risk Score (Since Last Contact): No Risk Identified - Provide treatment per regular standard of care, complete SAFE-T assessment only if needed based on clinical judgment (05/18/2023 2:36 PM) Substance Use No current substance use. She notices a desire to have 1-2 drinks on her 23st birthday although after discussing together today including how this could increase vulnerability for worsening intrusivethoughts and mood she is thinking of avoiding any alcohol for now. Psychiatric History Hospitalizations: admitted at 16 for [...] with sleep but caused daytime drowsiness) Zoloft Mood, Anxiety, and Trauma Related Disorders [...] when she was 4. Mother lived in [place]. 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 Legal: no had involvement with the legal system. The patient reports the following spiritual and/or cultural history: German and Kyrgyz background Relationship to her partner/father/co-parent [...] Adequate PROVIDER: Karissa Mejia MD Time In: 2:30PM Time Out: 3PM [...]
--- OUTSIDE RECORDS SUMMARY | 2023-10-20 07:10 | XMS_ITS | Encounter Summary ---
Author Name Unknown Organization [facility] Address [address] [place] [phone] Phone Care Team Providers Care Clinical Care Manager Name Role Phone Unavailable Primary Care Provider Unavailabl e Reason for Visit * Prior Authorization (Routine) - Closed Specialty Diagnoses / Procedures Referred By Contac t Referred To Contact Psych Rehab Diagnoses Bipolar II disorder () Trauma and stressor-related disorder Procedures MOTHER BABY ENROLLMENT Jazmine Potter, [facility] [address] [place] [address] [address] Referral ID Status Reason Start Date Expiration Date Visits Re quested Visits Authorized [id number] Closed 05/09/2023 06/24/[phone] Encounter Details Date Type Department Care Team Description 05/16/2023 10:15 AM CDT Psych [facility] [address] [place] [address] [phone] Karoline Benson MD [address] [facility] [address] [place], [place] [phone] Dh, Mother Baby Discharge Disposition: Discharged to [...] encounter Miscellaneous Notes * Group Note - Jazimne Potter LICSW - 05/16/2023 10:15 AM CDT Dept: [facility] Type of Service: Group Therapy Name of Group: Psychotherapy Process Group Provider/Group Safety Fire Boss: Jazmine Potter LICSW Date of Service: 05/16/2023 Start Time: 10:15 AM Stop Time: 11:00 AM Number of Group Members Present: 6 Location of Service: Face to Face at [facility] MIG TIG WELDER SERVICES PROVIDED (if applicable): No Session Content of Today's Group: At the start of this group, participants were invited to check inby identifying themselves, describing their current emotional status, and identifying issues to address in this group. Topics addressed included accessing support systems, emotional regulation and self-compassion. The targeted goal and objective: To increase functioning by decreasing mental health symptoms that impact the ability to make safe choices The patient's response to the intervention (including any plans to change the treatment if deemed ineffective): Patient reports having a challenging weekend. Endorsed difficulty managing anxiety due to a variety of situational factors. Observations of Individual Group Member: MENTAL STATUS EXAMINATION: Appearance: Distressed Behavior/relationship to examiner/demeanor: Cooperative and Engaged Motor activity/EPS: Normal Speech rate: Normal Speech volume: Normal Speech articulation: Normal Speech coherence: Normal Speech spontaneity: Normal Mood (subjective report): Anxious Affect (objective appearance): Appropriate/mood-congruent Thought Process (Associations): [...] disorder () 2. Trauma and stressor-related disorder Jazmine Potter LICSW, 05/16/2023 1:03 PM documented in this encounter Plan of [...]
--- OUTSIDE RECORDS SUMMARY | 2023-10-20 07:11 | XMS_ITS | Encounter Summary ---
Author Name Unknown Organization [facility] Address [address] [place] [address] Phone Care Team Providers Care Repairer Handtools Name Role Phone Unavailable Primary Care Provider Unavailabl e Reason for Visit * Prior Authorization (Routine) - Closed Specialty Diagnoses / Procedures Referred By Contac t Referred To Contact Psych Rehab Diagnoses Bipolar II disorder () Trauma and stressor-related disorder Procedures MOTHER BABY ENROLLMENT Jazmine Potter, [facility] [address] [place] [address] [address] Referral ID Status Reason Start Date Expiration Date Visits Re quested Visits Authorized [id number] Closed 05/09/2023 06/24/[phone] Encounter Details Date Type Department Care Team Description 05/09/2023 1:45 PM CDT [facility] [address] [place] [address] [phone] Karoline Benson MD [address] [facility] [address] [place], [place] [phone] Dh, Mother Baby Discharge Disposition: Discharged to [...] Group Note - Jazmine Potter LICSW - 05/09/2023 1:45 PM CDT Dept: [facility] Type of Service: Group Therapy Name of Group: Psychoeducation/Skills Group Provider/Group Student Services Coordinator: Jazmine Potter LICSW Date of Service: 05/09/2023 Start Time: 1:45 PM Stop Time: 2:30 PM Number of Group Members Present: 5 Location of Service: Face to Face at [facility] Session Content (Intervention): The purpose of this group was to provide education through information-sharing and facilitated group discussion. Handouts were provided and covered in detail. Skills taught today included: Social Emotional Education (describe Polyvagal Theory) The patient???s response to the intervention (including observations of the patient and their readiness to learn): Patient presented as engaged. The patient did demonstrate readiness to learn both verbally and non-verbally. The patient did demonstrate understanding of the material as evidenced by providing an example and sharing own experience. Barriers to learning: No Other observations: N/A Jazmine Potter LICSW, 05/09/2023 2:32 PM documented in this encounter Plan of Treatment Not on file documented as of this encounter Visit Diagnoses Diagnosis Bipolar II disorder ()- Primary Other bipolar disorders Trauma and stressor-related disorder documented in this encounter
--- OUTSIDE RECORDS SUMMARY | 2023-10-20 07:11 | XMS_ITS | Encounter Summary ---
Author Name Unknown Organization [facility] Address [address] [place] [address] Phone Care Team Providers Care Life Underwriter Name Role Phone Unavailable Primary Care Provider Unavailabl e Reason for Visit * Prior Authorization (Routine) - Closed Specialty Diagnoses / Procedures Referred By Contac t Referred To Contact Psych Rehab Diagnoses Bipolar II disorder () Trauma and stressor-related disorder Procedures MOTHER BABY ENROLLMENT Jazmine Potter, [facility] [address] [place] [address] [address] [address] Referral ID Status Reason Start Date Expiration Date Visits Re quested Visits Authorized [id number] Closed 05/09/2023 06/24/[phone] Encounter Details Date Type Department Care Team Description 05/10/2023 9:30 AM CDT [facility] [address] [place] [address] [phone] Karoline Benson MD 701 [facility] [address] [place], [place] [phone] Dh, Mother Baby Discharge Disposition: Discharged to [...] Group Note - Jazmine Potter LICSW - 05/10/2023 9:30 AM CDT Dept: [facility] Type of Service: Group Therapy Name of Group: Psychoeducation/Skills Group Provider/Group Digital Marketing Strategist: Jazmine Potter LICSW Date of Service: 05/10/2023 Start Time: 9:30 AM Stop Time: 10:15 AM Number of Group Members Present: 4 Location of Service: Face to Face at [facility] PROGRAM MANAGEMENT SPECIALIST SERVICES PROVIDED (if applicable): No Session Content (Intervention): The purpose of this group was to provide education through information-sharing and facilitated group discussion. Handouts were provided and covered in detail. Skills taught today included: Social and emotional skills, self-compassion The patient???s response to the intervention (including observations of the patient and their readiness to learn): Patient presented as engaged. The patient did demonstrate readiness to learn both verbally and non-verbally. The patient did demonstrate understanding of the material as evidenced by providing an example, sharing own experience, and taking notes. Barriers to learning: No Other observations: N/A Jazmine Potter LICSW, 05/10/2023 11:07 AM documented in this encounter Plan of Treatment Not on file documented as of this encounter Visit Diagnoses Diagnosis Bipolar II disorder ()- Primary Other bipolar disorders Trauma and stressor-related disorder documented in this encounter
--- OUTSIDE RECORDS SUMMARY | 2023-10-20 07:11 | XMS_ITS | Encounter Summary ---
Author Name Unknown Organization [facility] Address [address] [place] [phone] Phone Care Team Providers Care Websphere Commerce Consultant Name Role Phone Unavailable Primary Care Provider Unavailabl e Reason for Visit * Prior Authorization (Routine) - Closed Specialty Diagnoses / Procedures Referred By Contac t Referred To Contact Psych Rehab Diagnoses Bipolar II disorder () Trauma and stressor-related disorder Procedures MOTHER BABY ENROLLMENT Jazmine Potter, [facility] [address] [place] [address] [address] [address] Referral ID Status Reason Start Date Expiration Date Visits Re quested Visits Authorized [id number] Closed 05/09/2023 06/24/[phone] Encounter Details Date Type Department Care Team Description 05/10/2023 12:30 PM CDT [facility] [address] [place] [address] [phone] Karoline Benson MD 701 [facility] [address] [place], [place] [phone] Dh, Mother Baby Discharge Disposition: Discharged to [...] Group Note - Alisha Hardy OTR/L - 05/10/2023 12:30 PM CDT Dept: [facility] Type of Service: Group Therapy Name of Group: Wellness Group Provider/Group Brass Pourer: Alisha Hardy OTR/L Date of Service: 05/10/2023 Start Time: 12:45 PM Stop Time: 1:30 PM Number of Group Members Present: 5 Location of Service: Face to Face at [facility] SEWING MACHINE REPAIRER HELPER SERVICES PROVIDED (if applicable): No Session Content (Intervention): Education was provided using the SAMHSA 8 Dimensions of Wellness with the goal of assisting patients to lead a healthy and fulfilling life. Group discussion was facilitated, and materials were provided and covered in detail. The Dimension of Wellness covered today: physical. The patient's response to the intervention (including observations of the patient and their readiness to learn): Patient presented as active. The patient did demonstrate readiness to learn both verbally and non-verbally. The patient did demonstrate understanding of the material as evidenced by providing an example, sharing own experience, and sharing previous knowledge of topic. Barriers to learning: No Other observations: Patient noted they are working at establishing increased structure and routine.Habit formation and behavioral activation techniques were discussed and plans for implementation were developed. Patient took physical wellness inventory and made plans for ways to implement meaningful activity around treating physical illnesses, getting adequate sleep, eating well, and having somemindful moments into daily plans. Alisha Hardy OTR/L, 05/24/2023 10:08 AM documented in this encounter Plan of Treatment Not on file documented as of this encounter Visit Diagnoses Diagnosis Bipolar II disorder ()- Primary Other bipolar disorders documented in this encounter
--- OUTSIDE RECORDS SUMMARY | 2023-10-20 07:11 | XMS_ITS | Encounter Summary ---
Author Name Unknown Organization [facility] Address [address] [place] [phone] Phone Care Team Providers Care Tipple Supervisor Name Role Phone Unavailable Primary Care Provider Unavailabl e Reason for Visit * Prior Authorization (Routine) - Closed Specialty Diagnoses / Procedures Referred By Contac t Referred To Contact Psych Rehab Diagnoses Bipolar II disorder () Trauma and stressor-related disorder Procedures MOTHER BABY ENROLLMENT Jazmine Potter, [facility] [address] [place] [address] [address] Referral ID Status Reason Start Date Expiration Date Visits Re quested Visits Authorized [id number] Closed 05/09/2023 06/24/2023 105 105 Encounter Details Date Type Department Care Team Description 05/10/2023 10:15 AM CDT [facility] [address] [place] [id number] Karoline Benson MD 701 [facility] [address] [place], [place] [phone] Dh, Mother Baby Discharge Disposition: Discharged to [...] Note - Jazmine Potter LICSW - 05/10/2023 10:15 AM CDT Dept: [facility] Type of Service: Group Therapy Name of Group: Psychotherapy Process Group Provider/Group Doorkeeper: Jazmine Potter LICSW Date of Service: 05/10/2023 Start Time: 10:15 AM Stop Time: 11:00 AM Number of Group Members Present: 4 Location of Service: Face to Face at [facility] CHIMNEY MECHANIC SERVICES PROVIDED (if applicable): No Session Content of Today's Group: At the start of this group, participants were invited to check inby identifying themselves, describing their current emotional status, and identifying issues to address in this group. Topics addressed included emotional regulation, accessing support systems and engaging in self-compassion. The targeted goal and objective: To increase functioning by decreasing mental health symptoms that impact the ability to make safe choices: Learn and practice coping skills to deal with mood and emotional fluctuations The patient's response to the intervention (including any plans to change the treatment if deemed ineffective): Kristina reported experiencing a breakdown last night. Endorses feeling vulnerable after giving one week ago and experiencing significant medical trauma while in the hospital. Discussed childhood trauma and how it impacts her mental health and relationships today. Observations of Individual Group Member: MENTAL STATUS [...] Fund of Knowledge/Intelligence: Average Abstraction: Normal Insight: Fair Judgment: Adequate. Patient denies thoughts of suicide, thoughts of self-harm/self-Injury, and thoughts of harm to others. Diagnoses: No diagnosis found. Jazmine Potter LICSW, 05/10/2023 11:23 AM documented in this encounter Plan of Treatment Not on file documented as of this encounter Visit Diagnoses Diagnosis Bipolar II disorder ()- Primary Other bipolar disorders Trauma and stressor-related disorder documented in this encounter
--- OUTSIDE RECORDS SUMMARY | 2023-10-20 07:11 | XMS_ITS | Referral Summary ---
Author Name Unknown Organization [facility] Address [address] [place] [address] Care Team Providers Care Minute Clerk Name Role Phone Abbey Bagley PA-C Primary Care Provider + [phone] Ino Robbins MD Unavailable + [phone] Allergies No known active allergies Medications Medication Sig Dispensed Refills Start Date End Date Status albuterol (PROAIR HFA/PROVENTIL HFA/VENTOLIN HFA) 108 (90 Base) MCG/ACT inhaler Inhale 1 puff into the lungs 0 11/26/2019 Active sertraline (ZOLOFT) 50 MG tabletIndications:Cur rent mild episode of major depressive disorder, unspecified whether recurrent (H24) Take 1 tablet (50 mg) by mouth daily 30 tablet 3 01/19/2023 Active valACYclovir (VALTREX) 500 MG tabletIndications:HSV (herpes simplex virus) infection TAKE 1 TABLET BY MOUTH EVERY DAY 90 tablet 1 03/01/2023 Active Vit-Fe Fumarate-FA ( MULTIVITAMIN W/IRON) 27-0.8 MG tabletIndications:Pre care in third trimester Take 1 tablet by mouth daily 90 tablet 3 03/30/2023 Active ibuprofen (ADVIL/MOTRIN) 600 MG tabletIndications:Vag inal delivery Take 1 tablet (600 mg) by mouth every 6 hours as needed for mild pain or moderate pain Take w/ food 30 tablet 0 05/04/2023 Active Active Problems Problem Noted Date Diagnosed Date anemia 05/04/2023 Depression 11/23/2022 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 02/18/2021 Overview: valtrex prn, lidocaine Vaginal delivery 01/14/2021 Iron deficiency 12/23/2020 Mild intermittent asthma 12/23/2020 Overview: albuterol as needed albuterol as needed Chronic GERD 01/24/2020 PTSD (post-traumatic stress disorder) 08/10/2016 Resolved Problems Problem Noted Date Diagnosed Date Resolved Date Encounter for triage in patient 04/09/2023 05/04/2023 Club foot of fetus affecting antepartum care of mother 01/13/2021 05/04/2023 Echogenic intracardiac focus of fetus on ultrasound 01/13/2021 05/04/2023 Herpes simplex virus (HSV) infection 09/09/2019 02/18/2021 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 Mirena IUD inserted : Due for removal 05/2026/ 5 05/04/2023 Immunizations Name Administration Dates Next Due COVID-19 MONOVALENT 12+ (Pfizer) 09/30/2021,05/10 DTAP (<7y) 05/23/2007,08/27/2004,2002 DTaP / Hep B / IPV 07/16/2004 Flu, Unspecified 10/21/2021,08/27/2004 HEPATITIS A (PEDS 12M-18Y) 02/19/2014,05/23/2007 HIB (PRP-T) 07/16/2004,2002 HIB(PRP-OMP)(PedvaxHIB) 07/16/2004 HPV9 10/21/2021,07/01/2020 Hep B, Adult (Heplisav- B) 07/08/2022 Hepatitis B, Peds 2002,2002 Hib, Unspecified 2002 Influenza (IIV3) PF 07/01/2020,08/20/2008,2003 Influenza Intranasal Vaccine 08/20/2008 Influenza Vaccine >6 months,quad, PF 10/21/2021, 07/01/2020,08/20/2008 Influenza, seasonal, injectable, PF 08/27/2004 MMR 05/23/2007,07/16/2004 Meningococcal ACWY (Menveo??) 11/27/2019, 014 Meningococcal,unspecified 02/19/2014 Nasal Influenza Vaccine 2-49 (FluMist) 8 Pneumococcal (PCV 7) 07/16/2004,2002 Poliovirus, inactivated (IPV) 05/23/2007, 004,2002 TDAP (Adacel,Boostrix) 03/30/2023,01/01/2021, Social History Tobacco Use Types Packs/Day Years Used Date Smoking Tobacco: Former Cigarettes 0.3 Q uit: 03/10/2023 Passive Smoke Exposure: Never Smokeless Tobacco: Never Alcohol Use Standard Drinks/Week Comments Not Currently 0 (1 standard drink = 0.6 oz pur e alcohol) Seldom PHQ-2 Answer Date Recorded PHQ-2 Score 0 04/14/2023 [place] Depression Scale Answer Date Recorded Last EPDS Total Score Not on file 05/04/2023 The thought of harming myself has occurred to me . Never 05/04/2023 Adolescent Education Answer Date Record ed Getting School Help Needed Not on file 07/10 Education Answer Date Recorded What is the highest level of school you have completed or the highest degree you have received? GED or equivalent Sex and Gender Information Value Date Recorded Sex Assigned at Female 07/13/2020 10:08 AM CDT Gender Identity Female 07/13/2020 10:08 AM CDT Sexual Orientation Bisexual 07/13/2020 10 :08 AM CDT Last Filed Vital Signs Vital Sign Reading Time Taken Comments Blood Pressure 125/66 05/04/2023 10:00 AM CDT Pulse 70 05/04/2023 4:19 AM CDT Temperature 36.8 ??C (98.2 ??F) 05/04/2023 10:00 AM C DT Respiratory Rate 16 05/04/2023 10:00 AM CDT Oxygen Saturation 99% 05/03/2023 1:20 AM CDT Inhaled Oxygen Concentration - - Weight 95 kg (209 lb 8 oz) 05/04/2023 12:13 PM C DT Height 170.2 cm (5' 7) 05/02/2023 9:25 AM CDT Body Mass Index 32.81 05/02/2023 9:25 AM CDT Plan of Treatment Not on file Advance Directives For more information, please contact: [phone] Latest Code Status on File Code Status Date Activated Date Inactivated Comments Full Code 05/02/2023 8:49 AM 05/03/2023 5:05 AM All b asic and advanced life-sustaining interventions are performed as appropriate Question Answer Comments Code status determined by: Discussion with patient/ legal decision maker Code Status History Code Status Date Activated Date Inactivated Comments Full Code 03/10/2021 4:09 PM 03/10/2021 10:45 PM All ba sic and advanced life-sustaining interventions are performed as appropriate Question Answer Comments Code status determined by: Discussion with patient/ legal decision maker Care Teams Minute Clerk Relationship Specialty Start Date End Date Abbey Bagley PA-C [employer] [address] [place] [address] PCP - General Physician Health Assessment And Treatment Teacher 08/15/20 Ino Robbins MD [address] [place] [address] Assigned OBGYN Provider 01/01/23
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
--- OUTSIDE RECORDS SUMMARY | 2023-10-20 07:11 | XMS_ITS | Encounter Summary ---
Author Name Unknown Organization [facility] Address [address] [place] [address] Phone Care Team Providers Care Packager And Strapper Name Role Phone Unavailable Primary Care Provider Unavailabl e Reason for Visit * Prior Authorization (Routine) - Closed Specialty Diagnoses / Procedures Referred By Contac t Referred To Contact Psych Rehab Diagnoses Bipolar II disorder () Trauma and stressor-related disorder Procedures MOTHER BABY ENROLLMENT Jazmine Potter, [facility] [address] [place] [address] [address] Referral ID Status Reason Start Date Expiration Date Visits Re quested Visits Authorized [id number] Closed 05/09/2023 06/24/2023 105 105 Encounter Details Date Type Department Care Team Description 05/09/2023 10:15 AM CDT Psych [facility] [address] [place] [id number] Karoline Benson MD [address] [facility] [address] [place], [place] [address] Dh, Mother Baby Discharge Disposition: Discharged to [...] Note - Jazmine Potter LICSW - 05/09/2023 10:15 AM CDT Dept: [facility] Type of Service: Group Therapy Name of Group: Psychotherapy Process Group Provider/Group Crackling Press Operator: Jazmine Potter LICSW Date of Service: 05/09/2023 Start Time: 10:15 AM Stop Time: 11:00 AM Number of Group Members Present: 2 Location of Service: Face to Face at [facility] PHOTOGRAPHER HELPER SERVICES PROVIDED (if applicable): No Session Content of Today's Group: At the start of this group, participants were invited to check inby identifying themselves, describing their current emotional status, and identifying issues to address in this group. Topics addressed included processing experiences with anxiety and relational stressors. The targeted goal and objective: To increase functioning by decreasing mental health symptoms that impact the ability to make safe choices: Learn and practice coping skills to deal with mood and emotional fluctuations The patient's response to the intervention (including any plans to change the treatment if deemed ineffective): Patient shared experience with recent medical trauma. Discussed how it is currently impacting her mental health. Observations of Individual Group Member: MSE within Normal Limits. Patient denies thoughts of suicide, thoughts of self-harm/self-Injury, thoughts of harm to others, suicidal Ideation, suicidal action, actions of harm to self, homicidal Ideation, and actions of harm to others. Diagnoses: No diagnosis found. Jazmine Potter LICSW, 05/09/2023 3:03 PM documented in this encounter Plan of Treatment Not on file documented as of this encounter Visit Diagnoses Diagnosis Bipolar II disorder ()- Primary Other bipolar disorders Trauma and stressor-related disorder documented in this encounter
--- OUTSIDE RECORDS SUMMARY | 2023-10-20 07:11 | XMS_ITS | Encounter Summary ---
Author Name Unknown Organization [facility] Address [address] [facility] [place] [place] [address] Phone Care Team Providers Care Transportation Security Officer Name Role Phone Unavailable Primary Care Provider Unavailabl e Reason for Visit * Reason Comments Mother Baby - Individual Psychotherapy Encounter Details Date Type Department Care Team Description 05/11/2023 2:30 PM CDT Psych Rehab [facility] [address] [place], [place] [address] Claire Workman, [facility] [address] [place], [place] [phone] Mother Baby - Individual Psychotherapy Discharge Disposition: [...] this encounter Progress Notes * [facility]/11/[facility]23 2:30 PM CDT [facility] [place] for Treatment Planning Sessions Start Time: 2:30 pm Stop Time: 2:55 pm Date of Service: 05/11/2023 Type of Therapy: Individual, Modality: Emotion Focused Therapy Type of Treatment Plan: Initial Location of Visit: Face to Face at [facility] Participants in this Visit other than the patient/provider included: pt's daughter Session #: 1 For Calendar year: 2022 Diagnoses (note any changes): 1. Bipolar II disorder () 2. Trauma and stressor-related disorder Session Content:? Observations of patient (including any changes to mental or physical symptoms if indicated): MSE within Normal Limits Patient reports taking the following psychotropic medications (if any): Serjaki The prescriber for these medications is: Drs. Benson and Roberto Patient completed assessment measures including PHQ-9 and BRANDON. These were reviewed with the patientand discussed: Notable findings include: Depression Screening (PHQ-9): Little interest or pleasure in doing things?: Not at all Feeling down, depressed or hopeless?: Several days Trouble falling/staying asleep, sleeping too much: Several days Feeling tired or having little energy: Nearly every day Poor appetite or overeating: Nearly every day Feeling bad about yourself - or that you are a failure or have let yourself or your family down: Several days Trouble concentrating on things, such as reading the newspaper or watching television: Nearly everyday Moving or speaking so slowly that other people could have noticed. Or the opposite - being so fidgety or restless that you have been moving around a lot more than usual.: Not at all Thoughts that you would be better off or of hurting yourself in some way: Not at all PHQ-9 Total score: 12 Score: moderate risk for depression Anxiety Disorder Screen - BRANDON-7: Feeling nervous, anxious, or on edge?: nearly every day Not being able to stop or control worrying?: nearly every day Worrying too much about different things?: nearly every day Trouble relaxing?: more than half the days Being so restless that it is hard to sit still?: several days Becoming easily annoyed or irritable?: several days Feeling afraid as if something awful might happen?: more than half the days BRANDON-7 TOTAL: 15 BRANDON-7 Result: Positive screen for anxiety disorder with severe symptom severity Does the patient have a family or cultural support person that they would like to be involved in their treatment planning? No. Is the patient court ordered to participate in treatment or take neuroleptic medications? No. Were there areas of assessment that were not complete during the DA? No. Does the patient have a history of not engaging in treatment? No. Does the patient/guardian agree with this plan? Yes. Other Interventions used this session (if applicable): Reassessed emotional status. Provided support and opportunity to explore and express feelings and reactions. Will continue to follow as needed.. Patient response to intervention(s): Patient presented as engaged and active, as evidenced by verbal engagement in session. Plan for Discharge: 06/02. Claire Workman LPCC, 05/11/2023 4:17 PM documented in this encounter Plan of [...]
--- OUTSIDE RECORDS SUMMARY | 2023-10-20 07:11 | XMS_ITS | Encounter Summary ---
Author Name Unknown Organization [facility] Address [address] [place] [address] Phone Care Team Providers Care Firearms Model Maker Name Role Phone Unavailable Primary Care Provider Unavailabl e Encounter Details Date Type Department Care Team Description 05/11/2023 Plan of Care Documentation [facility] [address] [place], [place] [id number] Social History Tobacco Use Types Packs/Day Years [...]
--- OUTSIDE RECORDS SUMMARY | 2023-10-20 07:11 | XMS_ITS | Encounter Summary ---
Author Name Unknown Organization [facility] Address [address] [place] [address] Phone Care Team Providers Care Supervisor Steel Division Name Role Phone Unavailable Primary Care Provider Unavailabl e Reason for Visit * Prior Authorization (Routine) - Closed Specialty Diagnoses / Procedures Referred By Contac t Referred To Contact Psych Rehab Diagnoses Bipolar II disorder () Trauma and stressor-related disorder Procedures MOTHER BABY ENROLLMENT Jazmine Potter, [facility] [address] [place] [address] [address] Referral ID Status Reason Start Date Expiration Date Visits Re quested Visits Authorized [id number] Closed 05/09/2023 06/24/2023 105 105 Encounter Details Date Type Department Care Team Description 05/10/2023 11:00 AM CDT [facility] [address] [place] [address] [phone] Karoline Benson MD 701 [facility] S1 [address]60 [place], [place] [phone] Dh, Mother Baby Discharge Disposition: Discharged to [...] Group Note - Sara Cunha PT - 05/10/2023 11:00 AM CDT Dept: [facility] Type of Service: Group Therapy Provider/Group Marketing Graphics Specialist: Sara Cunha PT Date of Service: 05/10/2023 Start Time: 11:00 AM Stop Time: 12:00 PM Number of Group Members Present: 5 Name of Group: Movement Location of Service: Face to Face at a [facility] TEST WORKER SERVICES PROVIDED (if applicable): No Session Content (Intervention) (including goal/intended outcome): Mindful Movement. Encouraged group members to participate in mind-body skills facilitated by [facility] Trauma-Informed Yoga providers. Trauma-sensitive mind-body skills and practice were used to safely experiment with connecting with one's body. Movement included practicing - breathing, moving, strengthening and resting.Group members were invited to check in and notice their bodies. The psychoeducation topic related to the mind-body skills today was interoceptive movement for pain relieve and relaxation. The patient's response to the intervention: Patient presented as engaged and active. The patient did participate fully in the activity. Observations of Individual Group Member: participated throughout Sara Cunha PT, 05/10/2023 5:00 PM documented in this encounter Plan of Treatment Not on file documented as of this encounter Visit Diagnoses Diagnosis Trauma and stressor-related disorder- Primary documented in this encounter
--- OUTSIDE RECORDS SUMMARY | 2023-10-20 07:11 | XMS_ITS | Encounter Summary ---
Author Name Unknown Organization [facility] Address [address] [place] [address] Phone Care Team Providers Care Perioperative Assistant Name Role Phone Unavailable Primary Care Provider Unavailabl e Reason for Referral * Prior Authorization (Routine) - Closed Specialty Diagnoses / Procedures Referred By Contac t Referred To Contact Psych Rehab Diagnoses Bipolar II disorder () Trauma and stressor-related disorder Procedures MOTHER BABY ENROLLMENT Jazmine Potter [facility] [address] [place] [address] [address] Referral ID Status Reason Start Date Expiration Date Visits Re quested Visits Authorized [id number] Closed 05/09/2023 06/24/2023 105 105 Reason for Visit * Prior Authorization (Routine) - Closed Specialty Diagnoses / Procedures Referred By Contac t Referred To Contact Psych Rehab Diagnoses Bipolar II disorder () Trauma and stressor-related disorder Procedures MOTHER BABY ENROLLMENT Jazmine Potter [employer] [address] [place] [address] [address] Referral ID Status Reason Start Date Expiration Date Visits Re quested Visits Authorized [id number] Closed 05/09/2023 06/24/2023 105 105 Encounter Details Date Type Department Care Team Description 05/09/2023 9:30 AM CDT Psych Rehab [facility] [address] [place] [address] Karoline Benson MD 701 [facility] S1 [address]60 [place] [address] Dh, Mother Baby Discharge Disposition: Discharged to [...] Note - Jazmine Potter LICSW - 05/09/2023 9:30 AM CDT Dept: [facility] Type of Service: Group Therapy Name of Group: Psychoeducation/Skills Group Provider/Group Straightener And Aligner: Jazmine Potter LICSW Date of Service: 05/09/2023 Start Time: 9:30 AM Stop Time: 10:15 AM Number of Group Members Present: 3 Location of Service: Face to Face at [facility] PUBLIC SERVICES LIBRARIAN SERVICES PROVIDED (if applicable): No Session Content [...] Skills taught today included: Understanding Shame and Guilt, Self-Compassion, and Co-dependency andHealthy Boundaries The patient???s response to the intervention (including observations of the patient and their readiness to learn): Patient presented as engaged. The patient did demonstrate readiness to learn both verbally and non-verbally. The patient did demonstrate understanding of the material as evidenced by providing an example, sharing own experience, and asking questions. Barriers to learning: No Other observations: N/A Jazmine Potter LICSW, 05/09/2023 2:58 PM documented in this encounter Plan of Treatment Not on file documented as of this encounter Visit Diagnoses Diagnosis Bipolar II disorder ()- Primary Other bipolar disorders Trauma and stressor-related disorder documented in this encounter
--- OUTSIDE RECORDS SUMMARY | 2023-10-20 07:11 | XMS_ITS | Encounter Summary ---
Author Name Unknown Organization [facility] Address [address] [place] [address] Phone Care Team Providers Care Supervisor [place] Name Role Phone Unavailable Primary Care Provider Unavailabl e Reason for Visit * Prior Authorization (Routine) - Closed Specialty Diagnoses / Procedures Referred By Contac t Referred To Contact Psych Rehab Diagnoses Bipolar II disorder () Trauma and stressor-related disorder Procedures MOTHER BABY ENROLLMENT Jazmine Potter, [facility] [address] [place] [address] [address] Referral ID Status Reason Start Date Expiration Date Visits Re quested Visits Authorized [id number] Closed 05/09/2023 06/24/2023 105 105 Encounter Details Date Type Department Care Team Description 05/12/2023 12:30 PM CDT [facility] [address] [place] [address] [phone] Karoline Benson MD 701 [facility] S1 [address]60 [place], [place] [address] Dh, Mother Baby Discharge Disposition: Discharged to [...] Note - Noy Chen LICSW - 05/12/2023 12:30 PM CDT Dept: [facility] Type of Service: Group Therapy Name of Group: Psychoeducation/Skills Group Provider/Group Physical Plant Employee: Noy Chen LICSW Date of Service: 05/12/2023 Start Time: 12:45 PM Stop Time: 1:30 PM Number of Group Members Present: 5 Location of Service: Face to Face at [facility] HAND UPPER AND BOTTOM LACER SERVICES PROVIDED (if applicable): No Session Content (Intervention): The purpose of this group was to provide education through information-sharing and facilitated group discussion. Handouts were provided and covered in detail. Skills taught today included: Parenting Education (describe [place] [employer]) The patient???s response to the intervention (including observations of the patient and their readiness to learn): Patient presented as engaged. The patient did demonstrate readiness to learn both verbally and non-verbally. The patient did demonstrate understanding of the material as evidenced by sharing own experience and participating in the group discussion. Barriers to learning: No Other observations: Noy Barrera LICSW, 05/12/2023 1:35 PM documented in this encounter Plan of [...]
--- OUTSIDE RECORDS SUMMARY | 2023-10-20 07:11 | XMS_ITS | Encounter Summary ---
Author Name Unknown Organization [facility] Address [address] [place] [address] Phone Care Team Providers Care Bun Panner Name Role Phone Unavailable Primary Care Provider Unavailabl e Reason for Visit * Reason Comments Blood Pressure Check Encounter Details Date Type Department Care Team Description 05/09/2023 Documentation Only [facility] [address] [place] [address] [phone] Kiana Borges RN [facility] [address] [place] [address] Blood Pressure Check Social History Tobacco Use Types Packs/Day Years Used Date Smoking Tobacco: Unknown Sex and Gender Information Value Date Recorded Sex Assigned at Female 05/06/2023 2:19 PM CDT Gender Identity Female 05/06/2023 2:19 PM CDT Sexual Orientation Not on file documented as of this encounter Last Filed Vital Signs Vital Sign Reading Time Taken Comments Blood Pressure 113/72 05/09/2023 1:40 PM CDT Pulse 87 05/09/2023 1:40 PM CDT Temperature - - Respiratory Rate - - Oxygen Saturation - - Inhaled Oxygen Concentration - - Weight - - Height - - Body Mass Index - - documented in this encounter Progress Notes * Kiana Borges RN - 05/09/2023 2:00 PM CDT Pt requests to have her BP assessed due to recent elevation in her BP after delivery. At 1130, her BP was 100/71 and HR was 55. At 1340, her BP was 113/72 and HR was 87. Provided reassurance. Pt was thankful. documented in this encounter Plan of Treatment Not on file documented as of this encounter Visit Diagnoses Not on filedocumented in this encounter
--- OUTSIDE RECORDS SUMMARY | 2023-10-20 07:11 | XMS_ITS | Encounter Summary ---
Author Name Unknown Organization [facility] Address [address] [place] [address] Phone Care Team Providers Care Diplomatic Interpreter Name Role Phone Unavailable Primary Care Provider Unavailabl e Reason for Visit * Reason Comments Psych Rehab Health Screen Encounter Details Date Type Department Care Team Description 05/10/2023 Documentation Only [facility] [address] [place], [place] [address] Kiana Borges RN [facility] [address] [place] [address] Psych Rehab Health Screen Social History Tobacco Use Types Packs/Day Years Used Date Smoking Tobacco: Unknown PHQ-2 Answer Date Recorded PHQ-2 Subtotal 2 05/18/2023 Sex and Gender Information Value Date Recorded Sex Assigned at Female 05/06/2023 2:19 PM CDT Gender Identity Female 05/06/2023 2:19 PM CDT Sexual Orientation Not on file documented as of this encounter Progress Notes * Kiana Borges RN - 05/10/2023 5:04 PM CDT Health Screen Mother Baby Treatment Program A Health Screen form was completed by the patient. Information provided by the patient was reviewedand updated during a [id number] meeting. The problem list will be updated as needed and the procedure for screening, assessment, and triage will be followed. See plan, below. Primary Care Provider: Getting established at [facility] Date of last PCP visit: 10/2021 Primary Care visit indicated: Yes. Pt will make own appt when ready. NOTE: If last medical history/physical was completed >1 year ago, and/or there is a new/urgent health concern, refer to Primary Care. Dentist: Doesn't have one Date of last dental visit: 2007 Dental visit indicated: Yes. Pt will make own appt when ready. NOTE: If last dental visit was completed >1 year ago, and/or there is a new/urgent concern, refer to Dentist. Urgent health concerns identified by patient: Yes. Pt currently concerned about possible preeclampsia or eclampsia. Allergies: Reviewed with Pt. No Known Drug Allergies Past Surgical History:Reviewed with Pt. No past surgical history on file. Past Medical History:Reviewed with Pt. No past medical history on file. Do you have a current problem with any of the following? Yes No Yes No Diabetes X Hearing X Seizure X Sight: R eye has gotten worse X High Blood Pressure: Possible preeclampsia/eclampsia, on meds X Head Injury X Arthritis X Memory X HIV/AIDS X Skin X Hepatitis X Sleep X TB X Urinary X Do you smoke? X Stomach/Bowel X Do you use Over the Counter Medications and/or Herbal Remedies? Tylenol X Asthma: Uses PRN albuterol X Do you have a child that you are currently breast feeding or formula feeding? 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 X If you answered yes to the question above, any concerns with feeding or accessing formula? X If male: impotence, prostate, STD's, sexual issues N/A Describe where your child or children sleep at naptime and at bedtime? Baby sleeps in bassinet and toddler in a toddler bed Current reproductive plans: (Future plans on conceiving, natural family planning, condoms, control ect???.) Partner thinking about vasectomy or Pt possible Tubal or control. X The patient endorsed the following issues [...] for the past 7 days or more. Declined nutrition referral. X 6. In the last three months I have lost or gained 10 pounds without trying. Declined nutrition referral. X Have your family experienced financial changes recently? If yes, answer the three following questions. Difficult to pay for early childhood associate teacher? X 2. Difficult to pay your bills? X 3. Difficult to buy food? X Pain Screening and Assessment acute - Patient reports acute pain. Rating 5/10, Location right side of back, radiating to front abdomen, Onset since , Treatment and Effectiveness Tylenol and rest, Impact on Functioning mild. Pt also reports some nausea, along with concern about her urine which she reports as Fluorescentyellow and has an ammonia odor. Pt denied pain on urination, vaginal discharge, states she is not really bleeding anymore either. When asked about vision changes, Pt reports she has had worsening vision in her right eye since she fell last week on . Pt allowed VS and her BP was 111/72 HR 96. She also endorsed having recent headaches, currently rated her headache at about a 3/10 and reports it goes down with Tylenol. Discussed with Dr. Benson and encouraged Pt to be seen in urgent care today. Gave Pt a list of urgent care clinics that were on her way home. Pt verbalized an understanding and thanked proposal manager writer. Healthcare Directive on File: No Healthcare Directive information provided to patient: Yes Psychiatric Advanced Directive on File: No Psychiatric Advanced Directive information provided to patient: Yes Plan for follow up: Pt is due for physical and dental exam. Pt identified urgent health concern regarding preeclampsia or eclampsia. Pt currently about 2 weeks . Pt reporting pain in her abdomen that continuesto get worse and abnormalities with her urine. Pt referred to urgent care. Pt currently on medications for HTN. Reports vision changes in her right eye that have also gotten worse from when she fell.Pt has asthma she manages with PRN albuterol inhaler. 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 Pt identified reduced appetite along with recent weight changes, yet declined a nutrition referral at this time. Pt denied financial concerns [...]
--- OUTSIDE RECORDS SUMMARY | 2023-10-20 07:11 | XMS_ITS | Encounter Summary ---
Author Name Unknown Organization [facility] Address [address] [place] [address] Phone Care Team Providers Care Candy Mixer Name Role Phone Unavailable Primary Care Provider Unavailabl e Reason for Visit * Prior Authorization (Routine) - Closed Specialty Diagnoses / Procedures Referred By Contac t Referred To Contact Psych Rehab Diagnoses Bipolar II disorder () Trauma and stressor-related disorder Procedures MOTHER BABY ENROLLMENT Jazmine Potter, [facility] [address] [place] [address] [address] [address] [address] Referral ID Status Reason Start Date Expiration Date Visits Re quested Visits Authorized [id number] Closed 05/09/2023 06/24/2023 105 105 Encounter Details Date Type Department Care Team Description 05/12/2023 9:30 AM CDT [facility] [address] [place] [address] [phone] Karoline Benson MD [address] [facility] S1 [address]60 [place], [place] [phone] Dh, Mother Baby Discharge Disposition: Discharged to [...] Note - Claire Workman LPCC - 05/12/2023 9:30 AM CDT Dept: [facility] Type of Service: Group Therapy Name of Group: Psychoeducation/Skills Group Provider/Group Airfreight Loading Supervisor: Claire Workman LPCC Date of Service: 05/12/2023 Start Time: 9:30 AM Stop Time: 10:15 AM Number of Group Members Present: 5 Location of Service: Face to Face at [facility] Session Content (Intervention): Welcomed any new patients [...] No Other observations: N/A Claire Workman LPCC, 05/12/2023 11:51 AM documented in this encounter Plan of [...]
--- OUTSIDE RECORDS SUMMARY | 2023-10-20 07:11 | XMS_ITS | Encounter Summary ---
Author Name Unknown Organization [facility] Address [address] [place] [address] Phone Care Team Providers Care [place] Miner Name Role Phone Unavailable Primary Care Provider Unavailabl e Reason for Visit * Prior Authorization (Routine) - Closed Specialty Diagnoses / Procedures Referred By Contac t Referred To Contact Psych Rehab Diagnoses Bipolar II disorder () Trauma and stressor-related disorder Procedures MOTHER BABY ENROLLMENT Jazmine Potter, [facility] [address] [place] [address] [address] [address] [address] Referral ID Status Reason Start Date Expiration Date Visits Re quested Visits Authorized [id number] Closed 05/09/2023 06/24/2023 105 105 Encounter Details Date Type Department Care Team Description 05/10/2023 1:45 PM CDT [facility] [address] [place] [address] [phone] Karoline Benson MD 701 [facility] S1 [address]60 [place], [place] [phone] Dh, Mother Baby Discharge Disposition: Discharged to [...] Group Note - Noy Chen LICSW - 05/10/2023 1:45 PM CDT Dept: [facility] Type of Service: Group Therapy Name of Group: Psychoeducation/Skills Group Provider/Group Vermin Exterminator: Noy Chen LICSW Date of Service: 05/10/2023 Start Time: 1:45 PM Stop Time: 2:30 PM Number of Group Members Present: 5 Location of Service: Face to Face at [facility] MAINTENANCE SUPERVISOR 2ND SHIFT SERVICES PROVIDED (if applicable): No Session Content (Intervention): The purpose of this group was to provide education through information-sharing and facilitated group discussion. Skills taught today included: Parenting Education (describe [place] [employer] Parenting) The patient???s response to the intervention (including observations of the patient and their readiness to learn): Patient presented as engaged. The patient did demonstrate readiness to learn both verbally and non-verbally. The patient did demonstrate understanding of the material as evidenced by sharing own experience and participating in the group discussion. Barriers to learning: No Other observations: NA Noy Chen LICSW, 05/10/2023 4:07 PM documented in this encounter Plan of Treatment Not on file documented as of this encounter Visit Diagnoses Diagnosis Bipolar II disorder ()- Primary Other bipolar disorders Trauma and stressor-related disorder documented in this encounter
--- OUTSIDE RECORDS SUMMARY | 2023-10-20 07:11 | XMS_ITS | Encounter Summary ---
Author Name Unknown Organization [facility] Address [address] [place] [phone] Phone Care Team Providers Care Used Car Make Ready Worker Name Role Phone Unavailable Primary Care Provider Unavailabl e Reason for Visit * Prior Authorization (Routine) - Closed Specialty Diagnoses / Procedures Referred By Contac t Referred To Contact Psych Rehab Diagnoses Bipolar II disorder () Trauma and stressor-related disorder Procedures MOTHER BABY ENROLLMENT Jazmine Potter, [facility] [address] [place] [address] [address] [address] Referral ID Status Reason Start Date Expiration Date Visits Re quested Visits Authorized [id number] Closed 05/09/2023 06/24/2023 105 105 Encounter Details Date Type Department Care Team Description 05/09/2023 12:30 PM CDT [facility] [address] [place] [address] [phone] Karoline Benson MD 701 [facility] S1 [address]60 [place], [place] [phone] Dh, Mother Baby Discharge Disposition: Discharged to [...] Group Note - Alisha Hardy OTR/L - 05/09/2023 12:30 PM CDT Dept: [facility] Type of Service: Group Therapy Name of Group: Wellness Group Provider/Group Airport Sales Agent: Alisha Hardy OTR/L Date of Service: 05/09/2023 Start Time: 12:45 PM Stop Time: 1:30 PM Number of Group Members Present: 5 Location of Service: Face to Face at [facility] CLIENT ADMINISTRATOR SERVICES PROVIDED (if applicable): No Session Content (Intervention): Education was provided using the [employer] 8 Dimensions of Wellness with the goal of assisting patients to lead a healthy and fulfilling life. Group discussion was facilitated, and materials were provided and covered in detail. The Dimension of Wellness covered today: emotional and social. The patient's response to the intervention [...] plans for implementation were developed. Patient took emotional and social wellness inventory and made plans for ways to implement meaningful activity into daily plans. Alisha Hardy OTR/L, 05/23/2023 1:53 PM documented in this encounter Plan of Treatment Not on file documented as of this encounter Visit Diagnoses Diagnosis Bipolar II disorder ()- Primary Other bipolar disorders documented in this encounter
--- OUTSIDE RECORDS SUMMARY | 2023-10-20 07:11 | XMS_ITS | Clinical Summary ---
Author Name Unknown Organization [facility] Address [address] [place] [address] Care Team Providers Care Municipal Court Magistrate Name Role Phone Abbey Bagley PA-C Primary Care Provider + [phone] Ino Robbins MD Unavailable + [phone] Allergies No known active allergies Medications Medication [...] inactivated (IPV) 05/23/2007, 004,2002 TDAP (Adacel,Boostrix) 03/30/2023,01/01/2021, Family History Relation Status Comments Father Alive Mother Alive Social History Tobacco Use Types Packs/Day Years Used Date Smoking Tobacco: Former Cigarettes 0.3 Q uit: 03/10/2023 Passive Smoke Exposure: Never Smokeless Tobacco: Never Alcohol Use Standard Drinks/Week Comments Not Currently 0 (1 standard drink = 0.6 oz pur e alcohol) Seldom PHQ-2 Answer Date Recorded PHQ-2 Score 0 04/14/2023 [place] Depression Scale Answer Date Recorded Last EPDS [...] 05/02/2023 9:25 AM CDT Plan of Treatment Health Maintenance Due Date Last Done Comments ADVANCE CARE PLANNING 2002 ANNUAL REVIEW OF HM ORDERS 2002 ASTHMA ACTION PLAN 2002 ASTHMA CONTROL TEST 2002 DEPRESSION ACTION PLAN 2002 HPV IMMUNIZATION (3 - 3-dose series) 01/13/2022 10/21/2021, 07/01/2020 YEARLY PREVENTIVE VISIT 10/21/2022 10/21/2021, 08/20 PAP 2023 COVID-19 Vaccine ( season) 2023 09/30/2021, 2021 INFLUENZA VACCINE (#1) 2023 , 10/21/2021, 07/01/2020, Additional history exists PHQ-9 09/29/2023 03/30/2023, 08/02/2021, 02/19/2021 CHLAMYDIA SCREENING 11/26/2023 11/26/2022, 09/21/2022, 12/23/2020, Additional history exists DTAP/TDAP/TD IMMUNIZATION (8 - Td or Tdap) 03/30/2033 03/30/2023, 01/01/2021, 02/19/2014, Additional history exists Pneumococcal Vaccine: Pediatrics (0 to 5 Years) and At-Risk Patients (6 to 64 Years) Aged Out 07/16/2004, 2002 No longer eligibl e based on patient's age to complete this topic IPV IMMUNIZATION Completed 05/23/2007, , 07/16/2004, Additional history exists MENINGITIS IMMUNIZATION Completed 11/27/19 20, 02/19/2014, 02/19/2014 HEPATITIS B IMMUNIZATION Completed 022, 07/16/2004, 2002, Additional history exists HEPATITIS C SCREENING Completed 11/26/2022 HIV SCREENING Completed 11/26/2022, 09/11/2020 RSV MONOCLONAL ANTIBODY Aged Out No l onger eligible based on patient's age to complete this topic Advance Directives For more information, please contact: [phone] Latest Code Status on File Code Status [...] with patient/ legal decision maker Care Teams Municipal Court Magistrate Relationship Specialty Start Date End Date Abbey Bagley PA-C [employer] [address] [place] [address] PCP - General Physician Event Organizer 08/15/20 Ino Robbins MD [address] [place] [address] Assigned OBGYN Provider 01/01/23
--- OUTSIDE RECORDS SUMMARY | 2023-10-20 07:11 | XMS_ITS | Encounter Summary ---
Author Name Unknown Organization [facility] Address [address] [place] [id number] Phone Care Team Providers Care Spar Machine Operator Helper Name Role Phone Unavailable Primary Care Provider Unavailabl e Reason for Visit * Prior Authorization (Routine) - Closed Specialty Diagnoses / Procedures Referred By Contac t Referred To Contact Psych Rehab Diagnoses Bipolar II disorder () Trauma and stressor-related disorder Procedures MOTHER BABY ENROLLMENT Jazmine Potter, [facility] [address] [place] [address] [address] Referral ID Status Reason Start Date Expiration Date Visits Re quested Visits Authorized [id number] Closed 05/09/2023 06/24/2023 105 105 Encounter Details Date Type Department Care Team Description 05/11/2023 12:30 PM CDT Psych Rehab [facility] [address] [place] [id number] Karoline Benson MD [address] [facility] [address] [place], [place] [address] Dh, Mother Baby Discharge Disposition: Discharged to [...] Group Note - Alisha Hardy OTR/L - 05/11/2023 12:30 PM CDT Dept: [facility] Type of Service: Group Therapy Name of Group: Wellness Group Provider/Group Thread Drawer: Alisha Hardy OTR/L Date of Service: 05/11/2023 Start Time: 12:45 PM Stop Time: 1:30 PM Number of Group Members Present: 6 Location of Service: Face to Face at [facility] [employer] PROVIDED (if applicable): No Session Content (Intervention): Education was provided using the [employer] 8 Dimensions of Wellness with the goal of assisting patients to lead a healthy and fulfilling life. Group discussion was facilitated, and materials were provided and covered in detail. The Dimension of Wellness covered today: emotional and social. Skills taught today included: Mindfulness based experiences and planning for structure and routine The patient's response to the intervention (including observations of the patient and their readiness to learn): Patient presented as active. The patient did demonstrate readiness to learn both verbally and non-verbally. The patient did demonstrate understanding of the material as evidenced by providing an example, sharing own experience, and sharing previous knowledge of topic. Barriers to learning: No Other observations: Patient participated in check in about whole-hearted living, noting that letting go of worries about what others think and challenging perfectionism and self-criticism are important parts of healing for emotional wellness. Patient noted an affirmation that could help as they approach these challenges. Alisha Hardy OTR/L, 05/24/2023 10:18 AM documented in this encounter Plan of [...]
--- OUTSIDE RECORDS SUMMARY | 2023-10-20 07:12 | XMS_ITS | Encounter Summary ---
Author Name Unknown Organization [facility] Address [address] [facility] [place] [address] Care Team Providers Care Ice Cream Dispenser Name Role Phone Abbey Bagley PA-C Unavailable [phone] Abbey Bagley PA-C Primary Care Provider + [phone] Ino Robbins MD Unavailable + [phone] Reason for Visit * Reason Comments Care Encounter Details Date Type Department Care Team (Late st Contact Info) Description 04/20/2023 1:30 PM CDT Office Visit [facility] [address] [place] [phone] Ino Robbins MD [address] [place], [place] [phone] care in third trimester (Primary Dx) Social History Tobacco Use Types Packs/Day Years Used Date Smoking Tobacco: Former Cigarettes 0.3 Q uit: 03/10/2023 Passive Smoke Exposure: Never Smokeless Tobacco: Never Alcohol Use Standard Drinks/Week Comments Not Currently 0 (1 standard drink = 0.6 oz pur e alcohol) Seldom PHQ-2 Answer Date Recorded PHQ-2 Score 0 04/14/2023 [place] Depression Scale Answer Date Recorded [place] Depression Score 13 03/10/2021 Last EPDS Self Harm Result Not on file 03/10 Education Answer Date Recorded What is the highest level of school you have completed or the highest degree you have received? GED or equivalent Comments Yes Sex and Gender Information Value Date Recorded Sex Assigned at Female 07/13/2020 10:08 AM CDT Gender Identity Female 07/13/2020 10:08 AM CDT Sexual Orientation Bisexual 07/13/2020 10 :08 AM CDT COVID-19 Exposure Response Date Recorded In the last 10 days, have yo u been in contact with someone who was confirmed or suspected to have Coronavirus/COVID-19? No / Unsure 04/20/2023 1:20 PM CDT documented as of this encounter Last Filed Vital Signs Vital Sign Reading Time Taken Comments Blood Pressure 118/78 04/20/2023 1:26 PM CDT Pulse - - Temperature - - Respiratory Rate - - Oxygen Saturation - - Inhaled Oxygen Concentration - - Weight 98 kg (216 lb) 04/20/2023 1:26 PM CDT Height - - Body Mass Index 33.83 04/12/2023 3:52 PM CDT documented in this encounter Progress Notes * Ino Robbins MD - 04/20/2023 1:30 PM CDT 22yo at 37w5d here for routine visit. No OB concerns. Has apartment now and with paternity leave. Ready for delivery. Discussed elective induction at 39 weeks if cervix favorable and sheexpressed interest. RTC 1 week if undelivered documented in this encounter Plan of Treatment Not on file documented as of this encounter Visit Diagnoses Diagnosis care in third trimester- Primary documented in this encounter Additional Health Concerns Assessment Noted Time PHQ-9 Depression Total Score: 21 023 12:25 PM CDT documented as of this encounter Care Teams Ice Cream Dispenser Relationship Specialty Start Date End Date Abbey Bagley PA-C [employer] [facility] [employer] [address] [address] PCP - General Physician Merchandise Pickup/Receiving Associate 11/6/20 Abbey Bagley PA-C [facility] [address] [address] Physician Merchandise Pickup/Receiving Associate 04/11/20 05/02/23 Ino Robbins MD [address] [place], [place] [id number] Assigned OBGYN Provider 01/01/23 documented as of this encounter
--- OUTSIDE RECORDS SUMMARY | 2023-10-20 07:12 | XMS_ITS | Encounter Summary ---
Author Name Unknown Organization [facility] Address [facility] [place] [address] Care Team Providers Care Suit Maker Name Role Phone Abbey Bagley PA-C Unavailable [phone] Abbey Bagley PA-C Primary Care Provider + [phone] Ino Robbins MD Unavailable + [phone] Encounter Details Date Type Department Care Team (Latest Contact Info) Description 04/27/2023 Travel Social History Tobacco Use Types Packs/Day Years Used Date Smoking Tobacco: Former Cigarettes 0.3 Q uit: 03/10/2023 Passive Smoke Exposure: Never Smokeless Tobacco: Never Alcohol Use Standard Drinks/Week Comments Not Currently 0 (1 standard drink = 0.6 oz pur e alcohol) Seldom PHQ-2 Answer Date Recorded PHQ-2 Score 0 04/14/2023 [place] Depression Scale Answer Date Recorded [place] Depression Score 13 03/10/2021 Last EPDS Self [...] Recorded In the last 10 days, have robert u been in contact with someone who was confirmed or suspected to have Coronavirus/COVID-19? No / Unsure 04/27/2023 3:24 PM CDT documented as of this encounter Plan of Treatment Not on file documented as of this encounter Visit Diagnoses Not on filedocumented in this encounter Additional Health Concerns Assessment Noted Time PHQ-9 Depression Total Score: 21 023 12:25 PM CDT documented as of this encounter Care Teams Suit Maker Relationship Specialty Start Date End Date Abbey Bagley PA-C [employer] [address] [place] [address] PCP - General Physician Director Of Flight Operations 08/15/20 Abbey Bagley PA-C [employer] [address] [place] [address] Physician Director Of Flight Operations 04/11/20 05/02/23 Ino Robbins MD [address] [place] [address] Assigned OBGYN Provider 01/01/23 documented as of this encounter
--- OUTSIDE RECORDS SUMMARY | 2023-10-20 07:12 | XMS_ITS | Encounter Summary ---
Author Name Unknown Organization [place] Address [address] [place] [address] Care Team Providers Care Vector Control Assistant Name Role Phone Abbey Bagley PA-C Unavailable [phone] Abbey Bagley PA-C Primary Care Provider [phone] Ino Robbins MD Unavailable Reason for Visit * Reason Comments Rule Out Labor Encounter Details Date Type Department Care Team (Latest Contact Info) Description 04/24/2023 11:01 PM CDT - 04/25/2023 1:18 AM CDT Hospital Encounter [facility] [address] [place] [address] [place] [address] [place] [address] Discharge Disposition: Home or Self Care Social History Tobacco Use Types Packs/Day Years Used Date Smoking Tobacco: Former Cigarettes 0.3 Q uit: 03/10/2023 Passive Smoke Exposure: Never Smokeless Tobacco: Never Alcohol Use Standard Drinks/Week Comments Not Currently 0 (1 standard drink = 0.6 oz pur e alcohol) Seldom PHQ-2 Answer Date Recorded PHQ-2 Score 0 04/14/2023 [place] Depression Scale Answer Date Recorded [place] Depression Score 13 03/10/2021 Last EPDS Self [...] suspected to have Coronavirus/COVID-19? No / Unsure 04/22/2023 12:30 PM CDT documented as of this encounter Last Filed Vital Signs Vital Sign Reading Time Taken Comments Blood Pressure 117/71 04/25/2023 1:07 AM CDT Pulse - - Temperature 37 ??C (98.6 ??F) 04/24/2023 11:22 PM CDT Respiratory Rate 15 04/24/2023 11:22 PM CDT Oxygen Saturation - - Inhaled Oxygen Concentration - - Weight - - Height - - Body Mass Index - - documented in this encounter Discharge Instructions * Discharge Instructions* Martha Guzmán V, RN - 04/25/2023 1:15 AM CDT Discharge Instruction for Undelivered Patients You were seen for: Labor Assessment We Consulted: Dr. Diane You had (Test or Medicine): and uterine monitoring, labs, cervix checked x2 Diet: Drink 8 to 12 glasses of liquids (milk, juice, water) every day. You may eat meals and snacks. Activity: Count kicks everyday (see handout) Call your doctor or nurse chinchilla machine operator if your baby is moving less than usual. Call your provider if you notice: Swelling in your face or increased swelling in your hands or legs. Headaches that are not relieved by Tylenol (acetaminophen). Changes in your vision (blurring: seeing spots or stars.) Nausea (sick to your stomach) and vomiting (throwing up). Weight gain of 5 pounds or more per week. Heartburn that doesn't go away. Signs of bladder infection: pain when you urinate (use the toilet), need to go more often and more urgently. The bag of pressley (rupture of membranes) breaks, or you notice leaking in your underwear. Bright red blood in your underwear. Abdominal (lower belly) or stomach pain. Second (plus) baby: Contractions (tightening) less than 10 minutes apart and getting stronger. Increase or change in vaginal discharge (note the color and amount) Follow-up: Make an appointment to be seen on Wednesday 04/25 * Attachments The following attachments cannot be sent through Care Everywhere. * (s) Any Day Now: Your guide to early labor at home (Setswana) documented in this encounter Medications at Time of Discharge Medication Sig Dispensed Refills Start Date End Date albuterol (PROAIR HFA/PROVENTIL HFA/VENTOLIN HFA) 108 (90 Base) MCG/ACT inhaler Inhale 1 puff into the lungs 0 11/26/2019 Vit-Fe Fumarate-FA ( MULTIVITAMIN W/IRON) 27-0.8 MG tabletIndications:Prenata l care in third trimester Take 1 tablet by mouth daily 90 tablet 3 03/30/2023 sertraline (ZOLOFT) 50 MG tabletIndications:Current mild episode of major depressive disorder, unspecified whether recurrent (H24) Take 1 tablet (50 mg) by mouth daily 30 tablet 3 01/19/2023 valACYclovir (VALTREX) 500 MG tabletIndications:HSV (herpes simplex virus) infection TAKE 1 TABLET BY MOUTH EVERY DAY 90 tablet 1 03/01/2023 ferrous sulfate (FEROSUL) 325 (65 Fe) MG tablet Take 325 mg by mouth daily (with breakfast) 0 05/04/2023 valACYclovir (VALTREX) 1000 mg tablet Take 1,000 mg by mouth 0 05/04/2023 documented as of this encounter Miscellaneous Notes * Plan of Care - Martha Guzmán RN - 04/25/2023 1:18 AM CDT Data: Patient assessed in the Birthplace for uterine contractions. Cervical exam mid position, dilated to 1, effaced 50-70% and soft. Membranes intact. Contractions/uterine assessment irregular 2-25 minutes, palpate mild. FHR category 1. Action: Presumed adequate oxygenation documented (see flow record). Discharge instructions reviewed. Patient instructed to report change in movement, vaginal leaking of fluid or bleeding,abdominal pain, or any concerns related to the to her nurse/physician. Response: Orders to discharge home per Kelley Diane. Patient verbalized understanding of education and verbalized agreement with plan. Discharged to home at 0118. \ * Provider Notification - Martha Guzmán RN - 04/24/2023 11:48 PM CDT 04/24/23 5718 Provider Notification Provider Name/Title Dr. Diane Method of Notification Phone Patient is a at 38 weeks and 2 days here for r/o labor. 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 Pt reports contractions at home every 5-10 min utes. TOCO shows 1 ctx in 25 minutes. Pt also agrees, she has only had one. FHR category 1. Denies LOF, vaginal bleeding, and fetus is active. Cervix unchanged from clinic, 1.5/60/-1. BP 140/93 with 15 min recheck at 144/68. No pre-e symptoms at this time. wants pre-e labs and serial blood pressure. R/O labor with cervix rechecked in 1 hour. * Plan of Care - Martha Guzmán RN - 04/24/2023 11:33 PM CDT Data: Patient presented to Birthplace: 04/24/2023 11:01 PM. Reason for maternal/ assessment is uterine contractions. Patient reports contractions intensified this morning and occurring every 5-10minutes. Patient is a . record reviewed. has been uncomplicated.. Gestational Age 38w2d. VSS. movement active. Patient denies leaking of vaginal fluid/rupture of membranes, vaginal bleeding, abdominal pain, pelvic pressure, nausea, vomiting, headache, visual disturbances, epigastric or URQ pain, significant edema. Support person is not present. Action: Verbal consent for EFM. Triage assessment completed. Bill of rights reviewed. Response: Patient verbalized agreement with plan. Will contact Dr Kelley Diane with update and for further orders. documented in this encounter Plan of Treatment Not on file documented as of this encounter Procedures Procedure Name Priority Date/Time Associated Diagnosis Comments PROTEIN RANDOM URINE STAT 04/25/2023 12:15 AM CDT COMPREHENSIVE METABOLIC PANEL STAT 04/25/2023 12:03 AM CDT CBC WITH PLATELETS STAT 04/25/2023 12 :03 AM CDT documented in this encounter Results * Protein random urine (04/25/2023 12:15 AM CDT) Total Protein Urine mg/dL 8.4 mg/dL 04/25/2023 1:04 AM CDT LABORATORY Comment:The reference ranges have not been established in urine protein. The results should be integrated into the clinical context for interpretation. Total Protein Urine mg/mg Creat 0.07 0.00 - 0.20 mg/mg Cr 04/25/2023 1:04 AM CDT LABORATORY Creatinine Urine mg/dL 112.5 mg/dL 04/25/2023 1:04 AM CDT LABORATORY Comment:The reference ranges have not been established in urine creatinine. The results should be integrated into the clinical context for interpretation. Urine MID-STREAM URINE SPECIMEN / Unknown Non-blood Collection / Unknown 04/25/2023 12:15 AM CDT 04/25/2023 12:25 AM CDT Kelley Diane DO LAB - URINE ORDER [facility] [address] [facility] Lab (1st floor, no room number) [place] [address], [facility] [phone] * (ABNORMAL) CBC with platelets (04/25/2023 12:03 AM CDT) WBC Count 11.1(H) 4.0 - 11.0 10e3/uL 04/25/2023 12:18 AM CDT [facility] RBC Count 4.45 3.80 - 5.20 10e6/uL 04/25/2023 12:18 AM CDT [facility] Hemoglobin 9.8(L) 11.7 - 15.7 g/dL 04/25/2023 12:18 AM CDT [facility] Hematocrit 32.6(L) 35.0 - 47.0 % 04/25/2023 12:18 AM CDT [facility] MCV 73(L) 78 - 100 fL 04/25/2023 12:18 AM CDT [facility] MCH 22.0(L) 26.5 - 33.0 pg 04/25/2023 12:18 AM CDT [facility] MCHC 30.1(L) 31.5 - 36.5 g/dL 04/25/2023 12:18 AM CDT [facility] RDW 15.8(H) 10.0 - 15.0 % 04/25/2023 12:18 AM CDT [facility] Platelet Count 281 150 - 450 10e3/uL 04/25/2023 12:18 AM CDT [facility] Blood STRUCTURE OF LEFT UPPER LIMB / Unknown Venipuncture / Unknown 04/25/2023 12:03 AM CDT 04/25/2023 12:16 AM CDT Kelley Diane DO LAB - BLOOD ORDER [facility] [address] Lab (1st floor, no room number) [place] [address], [facility] [phone] * (ABNORMAL) Comprehensive metabolic panel (04/25/2023 12:03 AM CDT) Sodium 139 136 - 145 mmol/L 04/25/2023 1:05 AM CDT [facility] Potassium 4.3 3.4 - 5.3 mmol/L 04/25/2023 1:05 AM CDT LABORATORY Chloride 105 98 - 107 mmol/L 04/25/2023 1:05 AM CDT LABORATORY Carbon Dioxide (CO2) 23 22 - 29 mmol/L 04/25/2023 1:05 AM CDT [facility] Anion Gap 11 7 - 15 mmol/L 04/25/2023 1:05 AM CDT LABORATORY Urea Nitrogen 5.6(L) 6.0 - 20.0 mg/dL 04/25/2023 1:05 AM CDT LABORATORY Creatinine 0.72 0.51 - 0.95 mg/dL 04/25/2023 1:05 AM CDT LABORATORY Calcium 9.8 8.6 - 10.0 mg/dL 04/25/2023 1:05 AM CDT LABORATORY Glucose 101(H) 70 - 99 mg/dL 04/25/2023 1:05 AM CDT LABORATORY Alkaline Phosphatase 88 35 - 104 U/L 04/25/2023 1:05 AM CDT LABORATORY AST 17 0 - 45 U/L 04/25/2023 1:05 AM CDT LABORATORY Comment:Reference intervals for this test were updated on 03/21/2023 to more accurately reflect our healthy population. There may be differences in the flagging of prior results with similar values performed with this method. Interpretation of those prior results can be made in the context of the updated reference intervals. ALT 8 0 - 50 U/L 04/25/2023 1:05 AM CDT [facility] Comment:Reference intervals for this test were updated on 03/21/2023 to more accurately reflect our healthy population. There may be differences in the flagging of prior results with similar values performed with this method. Interpretation of those prior results can be made in the context of the updated reference intervals. Protein Total 6.5 6.4 - 8.3 g/dL 04/25/2023 1:05 AM CDT LABORATORY Albumin 3.4(L) 3.5 - 5.2 g/dL 04/25/2023 1:05 AM CDT LABORATORY Bilirubin Total 0.3 <=1.2 mg/dL 04/25/2023 1:05 AM CDT LABORATORY GFR Estimate >90 >60 mL/min/1. 73m2 04/25/2023 1:05 AM CDT LABORATORY Blood STRUCTURE OF LEFT UPPER LIMB / Unknown Venipuncture / Unknown 04/25/2023 12:03 AM CDT 04/25/2023 12:16 AM CDT Kelley Gloria Benedicto DO LAB - BLOOD ORDER [facility] [address] Lab (1st floor, no room number) [place] [address], [facility] [phone] documented in this encounter Visit Diagnoses Diagnosis Encounter for triage in patient- Primary documented in this encounter Admitting Diagnoses Diagnosis Encounter for triage in patient documented in this encounter Administered Medications Inactive Administered Medications - up to 3 most recent administrations Medication Order MAR Action Action Date Dose Rate Site lidocaine (LMX4) cream Topical, EVERY 1 HOUR PRN, pain, with VAD insertion, Starting on 04/24/23 at 2347, Apply at least 30 minutes prior to VAD insertion in divided doses as needed for size of site for insertion. MAX Dose: 2.5 g (?? of 5 g tube) Do NOT give if patient has a history of allergy to any local anesthetic or any gracie product. Do NOT use both lidocaine intradermal/subcutaneous injection and the lidocaine cream on the same site., OB Preadmission lidocaine 1 % 0.1-1 mL 0.1-1 mL, Other, EVERY 1 HOUR PRN, mild pain with VAD insertion, Starting on 04/24/23 at 2347, MAX dose 1 mL subcutaneous OR intradermal along the side of the vein in divided doses as needed for VAD insertion. Do NOT give if patient has a history of allergy to any local anesthetic or any gracie product. Do NOT use both lidocaine intradermal/subcutaneous injection and the lidocaine cream on the same site., OB Preadmission sodium chloride (PF) 0.9% PF flush 3 mL 3 mL, Intracatheter, EVERY 8 HOURS, First dose on 04/25/23 at 0000, to lock peripheral IV dormant line, OB Preadmission sodium chloride (PF) 0.9% PF flush 3 mL 3 mL, Intracatheter, EVERY 1 MIN PRN, line flush, other, to ensure patency or to lock dormant line, Starting on 04/24/23 at 2347, OB Preadmission documented in this encounter Active and Recently Administered Medications Times are shown in CDT. Scheduled Medication Order 04/23/2023 04/24/2023 04/25/2023 sodium chloride (PF) 0.9% PF flush 3 mL 3 mL, Intracatheter, EVERY 8 HOURS, First dose on 04/25/23 at 0000, to lock peripheral IV dormant line, OB Preadmission 0000 (Canceled Entry - Provider: Orders Generic Provider - Comment: Automatically canceled at discontinue of medication order) PRN Medication Order 04/23/2023 04/24/2023 04/25/2023 lidocaine (LMX4) cream Topical, EVERY 1 HOUR PRN, pain, with VAD insertion, Starting on 04/24/23 at 2347, Apply at least 30 minutes prior to VAD insertion in divided doses as needed for size of site for insertion. MAX Dose: 2.5 g (?? of 5 g tube) Do NOT give if patient has a history of allergy to any local anesthetic or any gracie product. Do NOT use both lidocaine intradermal/subcutaneous injection and the lidocaine cream on the same site., OB Preadmission lidocaine 1 % 0.1-1 mL 0.1-1 mL, Other, EVERY 1 HOUR PRN, mild pain with VAD insertion, Starting on 04/24/23 at 2347, MAX dose 1 mL subcutaneous OR intradermal along the side of the vein in divided doses as needed for VAD insertion. Do NOT give if patient has a history of allergy to any local anesthetic or any gracie product. Do NOT use both lidocaine intradermal/subcutaneous injection and the lidocaine cream on the same site., OB Preadmission sodium chloride (PF) 0.9% PF flush 3 mL 3 mL, Intracatheter, EVERY 1 MIN PRN, line flush, other, to ensure patency or to lock dormant line, Starting on 04/24/23 at 2347, OB Preadmission documented in this encounter Additional Health Concerns Assessment Noted Time PHQ-9 Depression Total Score: 21 023 12:25 PM CDT documented as of this encounter Care Teams Vector Control Assistant Relationship Specialty Start Date End Date Abbey Bagley PA-C [facility] [address] [address] PCP - General Physician Welder Gas 08/15/20 Abbey Bagley PA-C [facility] [address] [address] Physician Welder Gas 04/11/20 05/02/23 Ino Robbins MD [address], [place] [address] Assigned OBGYN Provider 01/01/23 documented as of this encounter
--- OUTSIDE RECORDS SUMMARY | 2023-10-20 07:12 | XMS_ITS | Encounter Summary ---
Author Name Unknown Organization [place] Address [address] [facility] [place] [address] Care Team Providers Care Outdoor Guide Name Role Phone Abbey Bagley PA-C Unavailable [phone] Abbey Bagley PA-C Primary Care Provider + [phone] Ino Robbins MD Unavailable + [phone] Reason for Visit * Reason Comments Care Encounter Details Date Type Department Care Team (Late st Contact Info) Description 04/27/2023 3:45 PM CDT Office Visit [facility] [address] [place] [phone] Ino Robbins MD [address], [place] [address] care in third trimester (Primary Dx) Social History Tobacco Use Types Packs/Day Years Used Date Smoking Tobacco: Former Cigarettes 0.3 Q uit: 03/10/2023 Passive Smoke Exposure: Never Smokeless Tobacco: Never Alcohol Use Standard Drinks/Week Comments Not Currently 0 (1 standard drink = 0.6 oz pur e alcohol) Seldom PHQ-2 Answer Date Recorded PHQ-2 Score 0 04/14/2023 [place] Depression Scale Answer Date Recorded [place] Depression Score 13 03/10/2021 Last EPDS Self [...] Sign Reading Time Taken Comments Blood Pressure 126/74 04/27/2023 3:38 PM CDT Pulse - - Temperature - - Respiratory Rate - - Oxygen Saturation - - Inhaled Oxygen Concentration - - Weight 98.4 kg (217 lb) 04/27/2023 3:38 PM CDT Height - - Body Mass Index 33.99 04/12/2023 3:52 PM CDT documented in this encounter Progress Notes * Ino Robbins MD - 04/27/2023 3:45 PM CDT 22yo at 38w5d. Miserable with prodromal ctx. Desires delivery. 3 visits to L&D last 2 weeks. Discussed elective induction at 39wks and will schedule given Finley of 8 and multip status. documented in this encounter Plan of Treatment Not on file documented as of this encounter Visit Diagnoses Diagnosis care in third trimester- Primary documented in this encounter Additional Health Concerns Assessment Noted Time PHQ-9 Depression Total Score: 21 023 12:25 PM CDT documented as of this encounter Care Teams Outdoor Guide Relationship Specialty Start Date End Date Abbey Bagley PA-C [employer] [address] [address] PCP - General Physician Agency Development Manager 08/15/20 Abbey Bagley PA-C [facility] [address] [address] Physician Agency Development Manager 04/11/20 05/02/23 Ino Robbins MD [address] [place] [address] Assigned OBGYN Provider 01/01/23 documented as of this encounter
--- OUTSIDE RECORDS SUMMARY | 2023-10-20 07:12 | XMS_ITS | Encounter Summary ---
Author Name Unknown Organization [place] Address [address] [place] [address] Care Team Providers Care Gas Well Drilling Manager Name Role Phone Abbey Bagley PA-C Unavailable [phone] Abbey Bagley PA-C Primary Care Provider + [phone] Ino Robbins MD Unavailable + [phone] Reason for Visit * Reason Onset Date Comments Care 04/26/2023 Encounter Details Date Type Department Care Team (Late st Contact Info) Description 04/26/2023 MyC Medical Advice [facility] [place] [address] [facility] [address] [place] [address] Ino Robbins MD [address], [place] [address] Care Social History Tobacco Use Types Packs/Day Years Used Date Smoking Tobacco: Former Cigarettes 0.3 Q uit: 03/10/2023 Passive Smoke Exposure: Never Smokeless Tobacco: Never Alcohol Use Standard Drinks/Week Comments Not Currently 0 (1 standard drink = 0.6 oz pur e alcohol) Seldom PHQ-2 Answer Date Recorded PHQ-2 Score 0 04/14/2023 [place] Depression Scale Answer Date Recorded [place] Depression Score 13 03/10/2021 Last EPDS Self [...] documented as of this encounter Care Teams Gas Well Drilling Manager Relationship Specialty Start Date End Date Abbey Bagley PA-C [facility] [address] [address] PCP - General Physician Skein Straightener 08/15/20 Abbey Bagley PA-C [facility] [address] [address] Physician Skein Straightener 04/11/20 05/02/23 Ino Robbins MD [address] [place] [address] Assigned OBGYN Provider 01/01/23 documented as of this encounter
--- OUTSIDE RECORDS SUMMARY | 2023-10-20 07:12 | XMS_ITS | Encounter Summary ---
Author Name Unknown Organization [place] Address [address] [place] [address] Care Team Providers Care Charge Histotechnologist Name Role Phone Abbey Bagley PA-C Unavailable [phone] Abbey Bagley PA-C Primary Care Provider + [phone] Ino Robbins MD Unavailable + [phone] Encounter Details Date Type Department Care Team (Latest Contact Info) Description 05/02/2023 11:59 PM CDT Hospital Encounter [facility] [address] [place] [phone] No Show Discharge Disposition: Home or Self Care Social History Tobacco Use Types Packs/Day Years Used Date Smoking Tobacco: Former Cigarettes 0.3 Q uit: 03/10/2023 Passive Smoke Exposure: Never Smokeless Tobacco: Never Alcohol Use Standard Drinks/Week Comments Not Currently 0 (1 standard drink = 0.6 oz pur e alcohol) Seldom PHQ-2 Answer Date Recorded PHQ-2 Score 0 04/14/2023 [place] Depression Scale Answer Date Recorded [place] Depression Score 13 03/10/2021 Last EPDS Self [...] PM CDT documented as of this encounter Medications at Time of Discharge Medication Sig Dispensed Refills Start Date End Date albuterol (PROAIR HFA/PROVENTIL HFA/VENTOLIN HFA) 108 (90 Base) MCG/ACT inhaler Inhale 1 puff into the lungs 0 11/26/2019 ibuprofen (ADVIL/MOTRIN) 600 MG tabletIndications:Vagina l delivery Take 1 tablet (600 mg) by mouth every 6 hours as needed for mild pain or moderate pain Take w/ food 30 tablet 0 05/04/2023 Vit-Fe Fumarate-FA ( MULTIVITAMIN W/IRON) 27-0.8 MG tabletIndications:Prenat al care in third trimester Take 1 tablet by mouth daily 90 tablet 3 03/30/2023 sertraline (ZOLOFT) 50 MG tabletIndications:Dain belle mild episode of major depressive disorder, unspecified whether recurrent (H24) Take 1 tablet (50 mg) by mouth daily 30 tablet 3 01/19/2023 valACYclovir (VALTREX) 500 MG tabletIndications:HSV (herpes simplex virus) infection TAKE 1 TABLET BY MOUTH EVERY DAY 90 tablet 1 03/01/2023 ferrous sulfate (FEROSUL) 325 (65 Fe) MG tabletIndications:Postpa rtum anemia Take 1 tablet (325 mg) by mouth daily (with breakfast) for 14 days 14 tablet 0 05/04/2023 05/18/2023 ferrous sulfate (FEROSUL) 325 (65 Fe) MG tablet Take 325 mg by mouth daily (with breakfast) 0 05/04/2023 valACYclovir (VALTREX) 1000 mg tablet Take 1,000 mg by mouth 0 05/04/2023 documented as of this encounter Plan of Treatment Not on file documented as of this encounter Visit Diagnoses Not on filedocumented in this encounter Additional Health Concerns Assessment Noted Time PHQ-9 Depression Total Score: 21 023 12:25 PM CDT documented as of this encounter Care Teams Charge Histotechnologist Relationship Specialty Start Date End Date [facility] [address] [address] PCP - General Physician Monkey Trainer 08/15/20 Abbey Bagley PA-C [email or web address] [address] [address] Physician Monkey Trainer 04/11/20 05/02/23 Ino Robbins MD [address] [place] [address] Assigned OBGYN Provider 01/01/23 documented as of this encounter
--- OUTSIDE RECORDS SUMMARY | 2023-10-20 07:12 | XMS_ITS | Encounter Summary ---
Author Name Unknown Organization [place] Address [facility] [place] [address] Care Team Providers Care Ship'S Carpenter Name Role Phone Abbey Bagley PA-C Unavailable [phone] Abbey Bagley PA-C Primary Care Provider + [phone] Ino Robbins MD Unavailable + [phone] Encounter Details Date Type Department Care Team (Latest Contact Info) Description 04/14/2023 Travel Social History Tobacco Use Types Packs/Day Years Used Date Smoking Tobacco: Some Days Cigarettes 0.3 Passive Smoke Exposure: Never Smokeless Tobacco: Never Alcohol Use Standard Drinks/Week Comments Not Currently 0 (1 standard drink = 0.6 oz pur e alcohol) Seldom PHQ-2 Answer Date Recorded PHQ-2 Score 0 04/14/2023 [place] Depression Scale Answer Date Recorded [place] Depression Score 13 03/10/2021 Last EPDS Self [...] suspected to have Coronavirus/COVID-19? No / Unsure 04/14/2023 4:11 PM CDT documented as of this encounter Plan of Treatment Not on file documented as of this encounter Visit Diagnoses Not on filedocumented in this encounter Additional Health Concerns Assessment Noted Time PHQ-9 Depression Total Score: 21 023 12:25 PM CDT documented as of this encounter Care Teams Ship'S Carpenter Relationship Specialty Start Date End Date Abbey Bagley PA-C [facility] [address] [facility] [address] [place] [address] PCP - General Physician Group Fitness Assistant Department Head 08/15/20 Abbey Bagley PA-C [facility] [address] [place] [address] Physician Group Fitness Assistant Department Head 04/11/20 05/02/23 Ino Robbins MD [address] [place], [place] [address] Assigned OBGYN Provider 01/01/23 documented as of this encounter
--- OUTSIDE RECORDS SUMMARY | 2023-10-20 07:12 | XMS_ITS | Encounter Summary ---
Author Name Unknown Organization [place] Address [facility] [place] [address] Care Team Providers Care Coffee Shop Manager Name Role Phone Abbey Bagley PA-C Unavailable [phone] Abbey Bagley PA-C Primary Care Provider + [phone] Ino Robbins MD Unavailable + [phone] Encounter Details Date Type Department Care Team (Latest Contact Info) Description 04/22/2023 Travel Social History Tobacco Use Types Packs/Day Years Used Date Smoking Tobacco: Former Cigarettes 0.3 Q uit: 03/10/2023 Passive Smoke Exposure: Never Smokeless Tobacco: Never Alcohol Use Standard Drinks/Week Comments Not Currently 0 (1 standard drink = 0.6 oz pur e alcohol) Seldom PHQ-2 Answer Date Recorded PHQ-2 Score 0 04/14/2023 [place] Depression Scale Answer Date Recorded [place] Depression Score 13 03/10/2021 Last EPDS Self [...] documented as of this encounter Care Teams Coffee Shop Manager Relationship Specialty Start Date End Date Abbey Bagley PA-C [employer]AGE [address] [place] [address] PCP - General Physician Environmental Marketer 08/15/20 Abbey Bagley PA-C [employer]AGE [address] [place] [address] Physician Environmental Marketer 04/11/20 05/02/23 Ino Robbins MD [address] [place] [address] Assigned OBGYN Provider 01/01/23 documented as of this encounter
--- OUTSIDE RECORDS SUMMARY | 2023-10-20 07:12 | XMS_ITS | Encounter Summary ---
Author Name Unknown Organization [place] Address [address] [facility] [place] [address] Care Team Providers Care Hris Coordinator Name Role Phone Abbey Bagley PA-C Unavailable [phone] Abbey Bagley PA-C Primary Care Provider + [phone] Ion Robbins MD Unavailable [phone] Reason for Visit * Reason Comments Care Encounter Details Date Type Department Care Team (Latest Contact Info) Description 04/14/2023 4:15 PM CDT Office Visit [facility] [place] [address] [facility] [address] [place] [address] [place] [address] [place] [address] care in third trimester (Primary Dx) Social History Tobacco Use Types Packs/Day Years Used Date Smoking Tobacco: Some Days Cigarettes 0.3 Passive Smoke Exposure: Never Smokeless Tobacco: Never Alcohol Use Standard Drinks/Week Comments Not Currently 0 (1 standard drink = 0.6 oz pur e alcohol) Seldom PHQ-2 Answer Date Recorded PHQ-2 Score 0 04/14/2023 [place] Depression Scale Answer Date Recorded [place] Depression Score 13 03/10/2021 Last EPDS Self [...] Sign Reading Time Taken Comments Blood Pressure 110/76 04/14/2023 4:14 PM CDT Pulse - - Temperature - - Respiratory Rate - - Oxygen Saturation - - Inhaled Oxygen Concentration - - Weight 98 kg (216 lb) 04/14/2023 4:14 PM CDT Height - - Body Mass Index 33.83 04/12/2023 3:52 PM CDT documented in this encounter Patient Instructions * Patient Instructions* Kelley Diane DO - 04/14/2023 4:15 PM CDT Return weekly Return to clinic: every 4 weeks till 28 weeks, then every 2 weeks till 36 weeks, then weekly till delivery Phone numbers [place]: Day/ night [phone] ask for ob triage Emergency: Call labor and delivery: [phone] What should I call about?? Contraction every 5 minutes for 1 hour 1 minute long (511), bleeding, loss of fluid, headache that doesn't resolve with tylenol, and decreased movement Start kick counts @ 26-28 weeks There is an maureen for this! It is called count the kicks Keep track of movement and discover your normal baby movement pattern guideline is listed below Please call if you do not feel the baby move! We will have you come in for heart rate monitoring: Perception of at least 10 FMs during 12 hours of normal maternal activity Perception of least 10 FMs over two hours when the mother is at rest and focused on [facility] Address [address] [facility], [place] [address] Dr. Kelley Diane DO COREMAKING SUPERVISOR [facility] documented in this encounter Progress Notes * Kelley Diane DO - 04/14/2023 4:15 PM CDT CC: Here for routine visit 22 year old y/o @ 36w6d with Estimated Date of Delivery: May 06, 2023 BP 110/76 Wt 98 kg (216 lb) LMP 07/30/2022 (Exact Date) BMI 33.83 kg/m?? See OB flowsheet + movement, no contractions, no bleeding, no loss of fluid Discussed monitoring movement 1) concerns: doing well, feeling like baby will come early 2) Routine: Blood type A+ RI tdap [ ] flu [ ] GS [dec] Covid v [ ] gtt [ ] 3) Risk factors: A: HSV: valtrex B: intermittent care: moved and then returned, housing stable now, moving into own Apartment tomorrow. C: Anemia: On iron 4) Return: weekly [place] documented in this encounter Plan of Treatment Not on file documented as of this encounter Procedures Procedure Name Priority Date/Time Associated Diagnosis Comments GROUP B STREP PCR Routine 04/14/2023 4:1 7 PM CDT care in third trimester documented in this encounter Results * Group B strep PCR (04/14/2023 4:17 PM CDT) Group B Strep PCR Negative Negative 023 9:09 AM CDT [facility] Comment:Presumed negative fo r Streptococcus agalactiae (Group B Streptococcus) or the number of organisms may be below the limit of detection of the assay. Swab STRUCTURE OF RECTOVAGINAL SEPTUM / Unknown Non-blood Collection / Unknown 04/14/2023 4:17 PM CDT 04/14/2023 4:56 PM CDT Narrative [facility] - 04/16/2023 9:09 AM CDT The Cepheid Xpert GBS LB Assay, performed on the [employer] Instrument Systems, is a qualitative in vitro diagnostic test designed to detect Group B Streptococcus (GBS) DNA from enriched vaginal/rectal swab specimens, using fully automated, real- time polymerase chain reaction (PCR) with fluorogenic detection of the amplified DNA. Xpert GBS LB Assay testing is indicated as an aid in determining GBS colonization status in antepartum women. This assay does not diagnose or monitor treatment for GBS infections. The Cepheid Xpert GBS LB Assay is intended for use in hospital, reference or state laboratory settings. The device is not intended for [id number]-ik-[id number] use. Kelley Diane DO LAB - MICRO GENER AL ORDERABLES [facility] Inf. Diseases Diag. Lab [address] [facility], [address] [place] [id number], [facility] [phone] documented in this encounter Visit Diagnoses Diagnosis care in third trimester- Primary documented in this encounter Additional Health Concerns Assessment Noted Time PHQ-9 Depression Total Score: 21 023 12:25 PM CDT documented as of this encounter Care Teams Hris Coordinator Relationship Specialty Start Date End Date Abbey Bagley PA-C [employer] [address] [address] PCP - General Physician Security Researcher 08/15/20 Abbey Bagley PA-C [employer] [address] [address] Physician Security Researcher 04/11/20 05/02/23 Ino Robbins MD [address] [place] [address] Assigned OBGYN Provider 01/01/23 documented as of this encounter
--- OUTSIDE RECORDS SUMMARY | 2023-10-20 07:12 | XMS_ITS | Encounter Summary ---
Author Name Unknown Organization [place] Address [address] [facility] [place] [address] Care Team Providers Care Equipment Scheduler Name Role Phone Abbey Bagley PA-C Unavailable [phone] Abbey Bagley PA-C Primary Care Provider + [phone] Ino Robbins MD Unavailable [phone] Reason for Visit * Reason Comments Rule Out Labor Encounter Details Date Type Department Care Team (Latest Contact Info) Description 04/22/2023 12:14 PM CDT - 04/22/2023 3:10 PM CDT Hospital Encounter [facility] [address] [place] [id number] Vanessa Lopes MD [address] [place] [address] Discharge Disposition: Home or Self Care Social History Tobacco Use Types Packs/Day Years Used Date Smoking Tobacco: Former Cigarettes 0.3 Q uit: 03/10/2023 Passive Smoke Exposure: Never Smokeless Tobacco: Never Alcohol Use Standard Drinks/Week Comments Not Currently 0 (1 standard drink = 0.6 oz pur e alcohol) Seldom PHQ-2 Answer Date Recorded PHQ-2 Score 0 04/14/2023 [place] Depression Scale Answer Date Recorded [place] Depression Score 13 03/10/2021 Last EPDS Self [...] Sign Reading Time Taken Comments Blood Pressure 116/71 04/22/2023 12:35 PM CDT Pulse - - Temperature 36.7 ??C (98 ??F) 04/22/2023 12:35 PM CDT Respiratory Rate 16 04/22/2023 12:35 PM CDT Oxygen Saturation - - Inhaled Oxygen Concentration - - Weight - - Height - - Body Mass Index - - documented in this encounter Discharge Instructions * Discharge Instructions* Charlene Price RN - 04/22/2023 12:49 PM CDT Discharge Instruction for Undelivered Patients You were seen for: Labor Assessment We Consulted: Dr. Lopes You had (Test or Medicine): and Uterine monitoring, SVE Diet: Drink 8 to 12 glasses of liquids (milk, juice, water) every day. Activity: Call your doctor or nurse pier hand if your baby is moving less than [...] underwear. Abdominal (lower belly) or stomach pain. For first baby: Contractions (tightening) less than 5 minutes apart for one hour or more. Second (plus) baby: Contractions (tightening) less than 10 minutes apart and getting stronger. *If less than 34 weeks: Contractions (tightening) more than 6 times in one hour. Increase or change in vaginal discharge (note the color and amount) Follow-up: As scheduled in the clinic documented in this encounter Medications at Time [...] as of this encounter Miscellaneous Notes * Provider Notification - Charlene Price RN - 04/22/2023 3:02 PM CDT 04/22/23 1502 Provider Notification Provider Name/Title Moses Method of Notification Phone Telephone call to Dr. Lopes-updated on SVE, ctx patter, Cat I tracing. Okay to discharge to home.Discharge instructions reviewed. SVE checked again before discharge per patient request-no change. Patient discharge to home. * Plan of Care - Charlene Price RN - 04/22/2023 12:54 PM CDT Goal Outcome Evaluation: No change in SVE since clinic visit yesterday. Ctx every 2-4 minutes apart, palpate mild. Patient on phone and talking calmly through admission. Lots of movement. * Plan of Care - Charlene Price RN - 04/22/2023 12:18 PM CDT Goal Outcome Evaluation: Patient present to [facility] for labor evaluation-patient was being seen by irving Lucas. Dr. Lopes assuming care. Verbal permission given to apply external monitors. Hx and VS taken. documented in this encounter Plan of Treatment Not on file documented as of this encounter Visit Diagnoses Diagnosis Encounter for triage in patient- Primary documented in this encounter Admitting Diagnoses Diagnosis Encounter for triage in patient documented in this encounter Administered Medications Inactive Administered Medications - up to 3 most recent administrations Medication Order MAR Action Action Date Dose Rate Site lidocaine (LMX4) cream Topical, EVERY 1 HOUR PRN, pain, with VAD insertion, Starting on Tue04/22/23 at 1217, Apply at least 30 minutes prior to [...] mild pain with VAD insertion, Starting on Tue04/22/23 at 1217, MAX dose 1 mL subcutaneous OR intradermal [...] Intracatheter, EVERY 8 HOURS, First dose on Tue04/22/23 at 1230, to lock peripheral IV dormant line, OB Preadmission sodium chloride (PF) 0.9% PF flush 3 mL 3 mL, Intracatheter, EVERY 1 MIN PRN, line flush, other, to ensure patency or to lock dormant line, Starting on Tue04/22/23 at 1217, OB Preadmission documented in this encounter Active and Recently Administered Medications Times are shown in CDT. Scheduled Medication Order 04/20/2023 04/21/2023 04/22/2023 sodium chloride (PF) 0.9% PF flush 3 mL 3 mL, Intracatheter, EVERY 8 HOURS, First dose on Tue04/22/23 at 1230, to lock peripheral IV dormant line, OB Preadmission 1230 (Canceled Entry - Provider: Orders Generic Provider - Comment: Automatically canceled at discontinue of medication order) PRN Medication Order 04/20/2023 04/21/2023 04/22/2023 lidocaine (LMX4) cream Topical, EVERY 1 HOUR PRN, pain, with VAD insertion, Starting on Tue04/22/23 at 1217, Apply at least 30 minutes prior to [...] mild pain with VAD insertion, Starting on Tue04/22/23 at 1217, MAX dose 1 mL subcutaneous OR intradermal [...] or to lock dormant line, Starting on Tue04/22/23 at 1217, OB Preadmission documented in this encounter Additional Health Concerns Assessment Noted Time PHQ-9 Depression Total Score: 21 023 12:25 PM CDT documented as of this encounter Care Teams Equipment Scheduler Relationship Specialty Start Date End Date Abbey Bagley PA-C [employer] [address] [address] PCP - General Physician Whip Operator 08/15/20 Abbey Bagley PA-C [employer] [address] [address] Physician Whip Operator 04/11/20 05/02/23 Ino Robbins MD [address] [place] [address] Assigned OBGYN Provider 01/01/23 documented as of this encounter
--- OUTSIDE RECORDS SUMMARY | 2023-10-20 07:12 | XMS_ITS | Encounter Summary ---
Author Name Unknown Organization [facility] Address [address] [place] [address] Care Team Providers Care Radiologist Chief Of Breast Imaging Name Role Phone Abbey Bagley PA-C Unavailable [phone] Abbey Bagley PA-C Primary Care Provider + [phone] Ino Robbins MD Unavailable + [phone] Reason for Visit * Auth/Cert (Routine) Specialty Diagnoses / Procedures Referred By Bernardo belle Referred To Contact html web developer Diagnoses Indication for care in labor or delivery Indication for care in labor or delivery [place] [address] [place] [address] Referral ID Status Reason Start Date Expiration Date Visits Re quested Visits Authorized [id number] 1 1 Encounter Details Date Type Department Care Team (Late st Contact Info) Description 05/02/2023 8:35 PM CDT Anesthesia Event [facility] [address] [place] [address] Wagner Lynn MD [facility] ANESTHESIA [address] [place], [place] [address] Deangelo Gamboa MD [facility] [address] [place] [address] Anesthesia Record Procedure Summary Procedure Name Responsible Anesthesiologist Anesthesia Start Time Anesthesia Stop Time LABOR ANALGESIA Wagner Lynn MD 05/02/23203405/03/23218 Events Date Time Event Comment 05/02/20232034 An Start 2034 AN FACE TIME IN 2051 An Facetime Out 05/03/2023218 An Stop Electronically signed by Leena Thao, LUCÍA on May 03, 2023 2:23 AM Meds Name Total 0.25% Bupivacaine PF (Epidural) 10 mL 2% Lidocaine w/ 1:200K Epi (EPIDURAL) 2. 5 mL * Agents No agents on file. * Blood No blood administrations on file. Lines, Drains, and Airways Type Details Placement Removal Peripheral IV 05/02/23; 0904; 18 G ; BD; Left, Posterior; Hand; Chlorhexidine; None; 1; Tolerated well 05/02/23 09 by Zainab Regalado RN 05/03/231644 by Lorrie Clifford, LUCÍA Epidural 05/02/23; 2051; Physician; Epidural; L3-4; Leena Funes RN; Tip intact 05/02/232051 by Wagner Lynn MD 05/03/23239 by Leena Thao, LUCÍA documented in this encounter Social History Tobacco Use Types Packs/Day Years Used Date Smoking Tobacco: Former Cigarettes 0.3 Q uit: 03/10/2023 Passive Smoke Exposure: Never Smokeless Tobacco: Never Alcohol Use Standard Drinks/Week Comments Not Currently 0 (1 standard drink = 0.6 oz pur e alcohol) Seldom PHQ-2 Answer Date Recorded PHQ-2 Score 0 04/14/2023 [place] Depression Scale Answer Date Recorded Last EPDS Total Score Not on file 05/04/2023 The thought of harming myself has occurred to me . Never 05/04/2023 Education Answer Date Recorded What is the [...] PM CDT documented as of this encounter OR Notes * Anesthesia Postprocedure Evaluation - Piter Ho DO - 05/03/2023 9:04 AM CDT Patient: Merry Vargas Procedure: * No procedures listed * Anesthesia Type: Epidural Note: Postop Pain Control: Uneventful Sign Out: Well controlled pain PONV: No Neuro/Psych: Uneventful Sign Out: Acceptable/Baseline neuro status Airway/Respiratory: Sign Out: Acceptable/Baseline resp. status CV/Hemodynamics: Sign Out: Acceptable CV status Other NRE: DID A NON-ROUTINE EVENT OCCUR? Event details/Postop Comments: .Anesthesiologist ANGIE Monitoring Note. EMR/L&D RN communication of patient progress of labor. Anesthesiologist immediately available for management. Adam Ho Last vitals: Vitals: 05/03/23 0405 05/03/23 0420 05/03/23 0750 BP: 102/57 90/55 111/41 Resp: 16 Temp: 98.1 ??F (36.7 ??C) SpO2: Electronically Signed By: Piter Ho DO May 03, 2023 9:04 AM * Anesthesia Procedure Notes - Wagner Lynn MD - 05/02/2023 8:54 PM CDT Associated Order(s): Epidural Block Epidural catheter Procedure Note Pre-Procedure Staff - Anesthesiologist: Wagner Lynn MD Performed By: anesthesiologist Referred By: Benedicto Location: OB Procedure Start/Stop Times: 05/02/2023 8:35 PM and 05/02/2023 8:52 PM Pre-Anesthestic Checklist: patient identified, IV checked, risks and benefits discussed, informed consent, monitors and equipment checked, pre-op evaluation, at physician/surgeon's request and post-op pain management Timeout: Correct Patient: Yes Correct Procedure: Yes Correct Site: Yes Correct Position: Yes Procedure Documentation Procedure: epidural catheter Medication(s) Administered 0.25% Bupivacaine PF (Epidural) - EPIDURAL 10 mL - 05/02/2023 8:45:00 PM 2% Lidocaine w/ 1:200K Epi (EPIDURAL) - EPIDURAL 2.5 mL - 05/02/2023 8:40:00 PM Medication Administration Time: 05/02/2023 8:35 PM Comments: Patient desires Labor Epidural for labor analgesia. Vaginal delivery anticipated. Chart reviewed. Patient examined. No changes to pre procedure chart review. Risks including but notlimited to bleeding, infection, nerve injury, PDPH, intrathecal injection, high block, incomplete block, one-sided block, back pain, and low blood pressure discussed in detail. Questions answered. Consent signed. Pause for the Cause completed. NIBP and pulse ox functioning. L&D nurse present. Procedure: Sitting. Betadine prep x 3. Sterile drape applied. Lidocaine 1% x 2 cc local infiltration at L 3-4. 17 G. Tu needle ML MELISSA 1 attempt. No CSF, paresthesia or blood. 20 g. Epidural catheter inserted w/o resistance 5 cm. Negative aspiration for CSF and blood. Filter in line. Test dose Lidocaine 2% w/ 1:200,000 epi x 2.5 cc injected. Negative for neuro change or symptoms ofintravascular injection. Bolus dose: Marcaine 0.25% 5cc x 2 doses (10 cc total). Infusion orders written. I or my partner am immediately available. I or my partner will monitor the patient and supervise nursing care at necessary intervals. [facility] ([facility] ONLY: Pain Team Contact information: please page the Pain Team Via [facility]Search Pain. During daytime hours, please page the attending first. At night please page the resident first. * Anesthesia Preprocedure Evaluation - Wagner Lynn MD - 05/02/2023 6:44 PM CDT Anesthesia Pre-Procedure Evaluation Patient: Merry Vargas : 2000 Procedure : Past Medical History: Diagnosis Date Anemia Anxiety Asthma Depressive disorder 12/2020 on meds Gastroesophageal reflux disease Genital herpes Migraines Past Surgical History: Procedure Laterality Date NO HISTORY OF SURGERY No Known Allergies Social History Tobacco Use Smoking status: Former Packs/day: 0.25 Types: Cigarettes Quit date: 03/10/2023 Years since quittin.1 Passive exposure: Never Smokeless tobacco: Never Substance Use Topics Alcohol use: Not Currently Comment: Seldom Wt Readings from Last 1 Encounters: 05/02/23 98.4 kg (217 lb) Anesthesia Evaluation ROS/MED HX ENT/Pulmonary: (+) asthma Neurologic: - neg neurologic ROS Cardiovascular: - neg cardiovascular ROS METS/Exercise Tolerance: >4 METS Hematologic: - neg hematologic ROS Musculoskeletal: - neg musculoskeletal ROS GI/Hepatic: (+) GERD, Renal/Genitourinary: - neg Renal ROS Endo: - neg endo ROS Psychiatric/Substance Use: (+) psychiatric history depression Infectious Disease: - neg infectious disease ROS Malignancy: - neg malignancy ROS Other: - neg other ROS Physical Exam Airway Mallampati: II TM distance: > 3 FB Neck ROM: full Mouth opening: > 3 cm Respiratory Devices and Support Dental Cardiovascular cardiovascular exam normal Pulmonary pulmonary exam normal OUTSIDE LABS: CBC: Lab Results Component Value Date WBC 11.1 (H) 04/25/2023 WBC 10.5 03/30/2023 HGB 9.2 (L) 05/02/2023 HGB 9.8 (L) 04/25/2023 HCT 32.6 (L) 04/25/2023 HCT 31.6 (L) 03/30/2023 PLT 281 04/25/2023 PLT 263 03/30/2023 BMP: Lab Results Component Value Date NA 139 04/25/2023 NA 139 01/14/2021 POTASSIUM 4.3 04/25/2023 POTASSIUM 3.8 01/14/2021 CHLORIDE 105 04/25/2023 CHLORIDE 109 01/14/2021 CO2 23 04/25/2023 CO2 24 01/14/2021 BUN 5.6 (L) 04/25/2023 BUN 6 (L) 01/14/2021 CR 0.72 04/25/2023 CR 0.67 01/14/2021 GLC 101 (H) 04/25/2023 GLC 93 01/14/2021 COAGS: No results found for: PTT, INR, FIBR POC: Lab Results Component Value Date HCG Negative 05/14/2021 HEPATIC: Lab Results Component Value Date ALBUMIN 3.4 (L) 04/25/2023 PROTTOTAL 6.5 04/25/2023 ALT 8 04/25/2023 AST 17 04/25/2023 ALKPHOS 88 04/25/2023 BILITOTAL 0.3 04/25/2023 OTHER: Lab Results Component Value Date ROX 9.8 04/25/2023 Anesthesia Plan ASA Status: 2 Anesthesia Type: Epidural. Consents Anesthesia Plan(s) and associated risks, benefits, and realistic alternatives discussed. Questions answered and patient/asset protection representative(s) expressed understanding. - Discussed: - Discussed with: Patient Postoperative Care Comments: Wagner Lynn MD documented in this encounter Plan of Treatment Not on file documented as of this encounter Procedures Procedure Name Priority Date/Time Associated Diagnosis Comments ANE EPIDURAL BLOCK Routine 05/02/2023 8: 35 PM CDT documented in this encounter Results * Epidural Block (05/02/2023 8:35 PM CDT) Narrative Wagner Lynn MD - 05/02/2023 8:35 PM CDT Wagner Lynn MD ? 05/02/2023 ??8:56 PM Epidural catheter Procedure Note Pre-Procedure Staff - ? Anesthesiologist: ??Wagner Lynn MD ? Performed By: anesthesiologist ? Referred By: Benedicto ? Location: OB ? Procedure Start/Stop Times: 05/02/2023 8:35 PM and 05/02/2023 8:52 PM ? Pre-Anesthestic Checklist: patient identified, IV checked, risks and benefits discussed, informed consent, monitors and equipment checked, pre-op evaluation, at physician/surgeon's request and post-op pain management Timeout: ? Correct Patient: Yes ? Correct Procedure: Yes ? Correct Site: Yes ? Correct Position: Yes Procedure Documentation Procedure: epidural catheter Medication(s) Administered 0.25% Bupivacaine PF (Epidural) - EPIDURAL 10 mL - 05/02/2023 8:45:00 PM 2% Lidocaine w/ 1:200K Epi (EPIDURAL) - EPIDURAL 2.5 mL - 05/02/2023 8:40:00 PM Medication Administration Time: 05/02/2023 8:35 PM Comments: ??Patient desires Labor Epidural for labor analgesia. Vaginal delivery anticipated. Chart reviewed. Patient examined. No changes to pre procedure chart review. Risks including but not limited to bleeding, infection, nerve injury, PDPH, intrathecal injection, high block, incomplete block, one-sided block, back pain, and low blood pressure discussed in detail. Questions answered. Consent signed. Pause for the Cause completed. NIBP and pulse ox functioning. L&D nurse present. Procedure: Sitting. Betadine prep x 3. Sterile drape applied. Lidocaine 1% x 2 cc local infiltration at L 3-4. ??17 G. Tu needle ML MELISSA 1 attempt. No CSF, paresthesia or blood. 20 g. Epidural catheter inserted w/o resistance 5 cm. Negative aspiration for CSF and blood. Filter in line. Test dose Lidocaine 2% w/ 1:200,000 epi x 2.5 cc injected. Negative for neuro change or symptoms of intravascular injection. Bolus dose: Marcaine 0.25% 5cc x 2 doses (10 cc total). Infusion orders written. I or my partner am immediately available. I or my partner will monitor the patient and supervise nursing care at necessary intervals. [facility] ([facility] ONLY: ?? Pain Team Contact information: please page the Pain Team Via [facility]. Search Pain. During daytime hours, please page the attending first. At night please page the resident first. Wagner Lynn MD [place] [facility] documented in this encounter Visit Diagnoses Not on filedocumented in this encounter Administered Medications Inactive Administered Medications - up to 3 most recent administrations Medication Order MAR Action Action Date Dose Rate Site 0.25% Bupivacaine PF (Epidural) EPIDURAL, Starting on Tue05/02/23 at 2044, Anesthesia Intra-op $Given 05/02/2023 8:45 PM CDT 10 mLs lidocaine 2%-EPINEPHrine 1:200,000 injection EPIDURAL, Starting on Tue05/02/23 at 2040, Anesthesia Intra-op $Given 05/02/2023 8:40 PM CDT 2.5 mLs documented in this encounter Additional Health Concerns Assessment Noted Time PHQ-9 Depression Total Score: 21 023 12:25 PM CDT documented as of this encounter Care Teams Radiologist Chief Of Breast Imaging Relationship Specialty Start Date End Date Abbey Bagley PA-C [employer] [address] [facility] [address] [place] [address] PCP - General Physician Industrial Relations Commissioner 08/15/20 Abbey Bagley PA-C [employer] [address] [place] [address] Physician Industrial Relations Commissioner 04/11/20 05/02/23 Ino Robbins MD [address] [place], [place] [address] Assigned OBGYN Provider 01/01/23 documented as of this encounter
--- OUTSIDE RECORDS SUMMARY | 2023-10-20 07:12 | XMS_ITS | Encounter Summary ---
Author Name Unknown Organization [facility] Address [facility] [place] [address] Care Team Providers Care Outreach Consultant Name Role Phone Abbey Bagley PA-C Unavailable [phone] Abbey Bagley PA-C Primary Care Provider + [phone] Ino Robbins MD Unavailable + [phone] Encounter Details Date Type Department Care Team (Latest Contact Info) Description 04/12/2023 Travel Social History Tobacco Use Types Packs/Day Years Used Date Smoking Tobacco: Some Days Cigarettes 0.3 Passive Smoke Exposure: Never Smokeless Tobacco: Never Alcohol Use Standard Drinks/Week Comments Not Currently 0 (1 standard drink = 0.6 oz pur e alcohol) Seldom PHQ-2 Answer Date Recorded PHQ-2 Score 4 03/30/2023 [place] Depression Scale Answer Date Recorded [place] Depression Score 13 03/10/2021 Last EPDS Self [...] suspected to have Coronavirus/COVID-19? No / Unsure 04/12/2023 3:48 PM CDT documented as of this encounter Plan of Treatment Not on file documented as of this encounter Visit Diagnoses Not on filedocumented in this encounter Additional Health Concerns Assessment Noted Time PHQ-9 Depression Total Score: 21 023 12:25 PM CDT documented as of this encounter Care Teams Outreach Consultant Relationship Specialty Start Date End Date Abbey Bagley PA-C [employer] [address] [facility] [address] [place] [address] PCP - General Physician Dianetic Counselor 08/15/20 Abbey Bagley PA-C [employer] [address] [place] [address] Physician Dianetic Counselor 04/11/20 05/02/23 Ino Robbins MD [address] [place], [place] [address] Assigned OBGYN Provider 01/01/23 documented as of this encounter
--- OUTSIDE RECORDS SUMMARY | 2023-10-20 07:12 | XMS_ITS | Encounter Summary ---
Author Name Unknown Organization [facility] Address [facility] [place] [address] Care Team Providers Care Allergy Specialist Name Role Phone Abbey Bagley PA-C Unavailable [phone] Abbey Bagley PA-C Primary Care Provider + [phone] Ino Robbins MD Unavailable + [phone] Encounter Details Date Type Department Care Team (Latest Contact Info) Description 04/20/2023 Travel Social History Tobacco Use Types Packs/Day Years Used Date Smoking Tobacco: Former Cigarettes 0.3 Q uit: 03/10/2023 Passive Smoke Exposure: Never Smokeless Tobacco: Never Alcohol Use Standard Drinks/Week Comments Not Currently 0 (1 standard drink = 0.6 oz pur e alcohol) Seldom PHQ-2 Answer Date Recorded PHQ-2 Score 0 04/14/2023 [place] Depression Scale Answer Date Recorded [place] Depression Score 13 03/10/2021 Last EPDS Self [...] documented as of this encounter Care Teams Allergy Specialist Relationship Specialty Start Date End Date Abbey Bagley PA-C [employer] [address] [place] [address] PCP - General Physician Set O Type Operator 08/15/20 Abbey Bagley PA-C [employer] [address] [place] [address] Physician Set O Type Operator 04/11/20 05/02/23 Ino Robbins MD [address] [place] [address] Assigned OBGYN Provider 01/01/23 documented as of this encounter
--- OUTSIDE RECORDS SUMMARY | 2023-10-20 07:12 | XMS_ITS | Encounter Summary ---
Author Name Unknown Organization [facility] Address [address] [place] [address] Care Team Providers Care Cabinetmaker Maintenance Name Role Phone Abbey Bagley PA-C Unavailable [phone] Abbey Bagley PA-C Primary Care Provider [phone] Ino Robbins MD Unavailable Reason for Visit * Reason Comments Decreased Movement Abdominal Cramping Encounter Details Date Type Department Care Team (Latest Contact Info) Description 04/12/2023 3:31 PM CDT - 04/12/2023 5:05 PM CDT Hospital Encounter [facility] [address] [place] [id number] [place] [address] [place], [place] [phone] Encounter for triage in patient (Primary Dx) Discharge Disposition: Home or Self Care Social History Tobacco Use Types Packs/Day Years Used Date Smoking Tobacco: Some Days Cigarettes 0.3 Passive Smoke Exposure: Never Smokeless Tobacco: Never Tobacco Cessation:Ready to Q uit: Not Asked; Counseling Given: Not Answered Alcohol Use Standard Drinks/Week Comments Not Currently 0 (1 standard drink = 0.6 oz pur e alcohol) Seldom PHQ-2 Answer Date Recorded PHQ-2 Score 4 03/30/2023 Thorp Depression Scale Answer Date Recorded Thorp Depression Score 13 03/10/2021 Last EPDS Self [...] Sign Reading Time Taken Comments Blood Pressure 120/67 04/12/2023 3:52 PM CDT Pulse 102 04/12/2023 3:52 PM CDT Temperature 36.8 ??C (98.2 ??F) 04/12/2023 3:52 PM CD T Respiratory Rate 16 04/12/2023 3:52 PM CDT Oxygen Saturation - - Inhaled Oxygen Concentration - - Weight 97.1 kg (214 lb) 04/12/2023 3:52 PM CDT Height 170.2 cm (5' 7) 04/12/2023 3:52 PM CDT Body Mass Index 33.52 04/12/2023 3:52 PM CDT documented in this encounter Discharge Instructions * Discharge Instructions* Bernadette Blair RN - 04/12/2023 4:59 PM CDT Discharge Instruction for Undelivered Patients You were seen for: Decreased Movement We Consulted: Dr. Diane You had (Test or Medicine): uterine and monitoring, biophysical profile Diet: Drink 8 to 12 glasses of liquids (milk, juice, water) every day. You may eat meals and snacks. Activity: Count kicks everyday (see handout) Call your doctor or nurse wringer machine operator if your baby is moving [...] amount) Follow-up: As scheduled in the clinic for 04/14/23 * Attachments The following attachments cannot be sent through Care Everywhere. * Kick Counts (Estonian) documented in this encounter Medications at Time [...] MOUTH EVERY DAY 90 tablet 1 03/01/2023 Docosahexaenoic Acid (DHA) 200 MG CAPSIndications: care in second trimester Take 1 each by mouth daily 60 capsule 3 11/26/2022 04/20/2023 ferrous sulfate (FEROSUL) 325 (65 Fe) MG tablet Take 325 mg by mouth daily (with breakfast) 0 05/04/2023 Vit-Fe Fumarate-FA (PNV PLUS MULTIVITAMIN) 27-1 MG TABS per tablet Take 1 tablet by mouth daily 0 04/20/2023 valACYclovir (VALTREX) 1000 mg tablet Take 1,000 mg by mouth 0 05/04/2023 documented as of this encounter Miscellaneous Notes * Plan of Care - Bernadette Blair RN - 04/12/2023 5:06 PM CDT Data: Patient assessed in the [facility] for decreased movement, abdominal cramping, nausea. Cervical exam not examined. Membranes intact. Contractions/uterine assessment none per toco, some irritability but patient not feeling cramping at this time. Action: Presumed adequate oxygenation documented (see flow record). Discharge instructions reviewed. Patient instructed to report change in movement, vaginal leaking of fluid or bleeding,abdominal pain, or any concerns related to the to her nurse/physician. Response: Orders to discharge home per Kelley Diane. Patient verbalized understanding of education and verbalized agreement with plan. Discharged to home at 1705. * Provider Notification - Bernadette Blair RN - 04/12/2023 4:54 PM CDT 04/12/23 1654 Provider Notification Provider Name/Title Dr. Diane Method of Notification Electronic Page Request Evaluate - Remote Notification Reason Lab/Diagnostic Study Dr. Diane web-paged and updated on BPP 05/17 with MVP 5.2cm. Patient discharged to home. * Provider Notification - Bernadette Blair RN - 04/12/2023 4:16 PM CDT 04/12/23 1614 Provider Notification Provider Name/Title Dr. Diane Method of Notification Phone Request Evaluate - Remote Notification Reason Patient Arrived;Uterine Activity;Status Update Dr. Diane paged and updated on patient arrival, patient report of decreased movement since last evening prior to midnight, intermittent abdominal cramping, some nausea but able to eat and drink, blood tinged mucous when wiping after using the bathroom, patient seen on 04/09 at [facility] for similar complaints. MD updated on FHR tracing category I with baseline 135bpm accelerations present, patient able to feel some movement since arrival, no contractions per toco or palpation, UA and wet prep normal from 04/09. Orders received for BPP at this time. If BPP 03/17 or 05/17, patient may discharge to home with plan to follow up as scheduled in clinic on 04/14. Will web-page MD with BPP results. * Plan of Care - Bernadette Blair RN - 04/12/2023 4:02 PM CDT Data: Patient presented to [facility]: 04/12/2023 3:31 PM. Reason for maternal/ assessment is decreased movement, abdominal cramping, and nausea. Patient reports she has not felt any baby movements since last evening before midnight. Patient also reports some mild intermittent abdominal cramping and blood tinged mucous like discharge when wiping after using the bathroom. Patient also c/osome nausea over the past couple of days but has been able to eat and drink without vomiting. Patient is a . record reviewed. has been complicated by limited care and hx genital herpes currently taking valtrex. Gestational Age 36w4d. VSS. movement decreased since last evening before midnight. Patient denies uterine contractions, leaking of vaginal fluid/rupture of membranes, vaginal bleeding, pelvic pressure, vomiting, headache, visual disturbances, epigastric or URQ pain, significant edema. SupportpersonJesús is present. Action: Verbal consent for EFM. Triage assessment completed. Bill of rights reviewed. Response: Patient verbalized agreement with plan. Will contact Dr Kelley Diane with update and for further orders. documented in this encounter Plan of Treatment Scheduled Orders Name Type Priority Associated Diagnoses Orde r Schedule Non Stress Test by Provider/bone char puller Routine One Time for 1 Occurrences starting 04/12/2023 until 04/12/2023 documented as of this encounter Procedures Procedure Name Priority Date/Time Associated Diagnosis Comments US OB BIOPHY PROFILE W/O NON STRESS SINGLE STAT 04/12/2023 4:50 PM CDT NON-STRESS TEST - HIM SCAN 04/12/2023 12:00 AM CDT NON-STRESS TEST - HIM SCAN 04/12/2023 12:00 AM CDT documented in this encounter Results * US Biophys Prof w/o Non Stress Test (04/12/2023 4:50 PM CDT) Anatomical Region Laterality Modality Abdomen/Pelvis Ultrasound 04/12/2023 4:50 PM CDT Impressions 04/12/2023 4:53 PM CDT IMPRESSION: 1. ??Single living intrauterine gestation in cephalic presentation. 2. ??Normal / biophysical profile. Narrative 04/12/2023 4:53 PM CDT EXAM: US OB BIOPHY PROFILE W/O NST SINGLE W/LTD LOCATION: [facility] DATE: 04/12/2023 INDICATION: 36w4d with decreased movement COMPARISON: None. FINDINGS: Single living fetus, cephalic presentation. HEART RATE: 149 bpm. SDP 5.2 cm. PLACENTA: Anterior. No previa. CERVIX: Not visualized. 2/2 breathing 2/2 movements 2/2 tone 2/2 amniotic fluid Total biophysical profile 05/17 Procedure Note Danyell Hi MD - 04/12/2023 EXAM: US OB BIOPHY PROFILE W/O NST SINGLE W/LTD LOCATION: [facility] DATE: 04/12/2023 INDICATION: 36w4d with decreased movement COMPARISON: None. FINDINGS: Single living fetus, cephalic presentation. HEART RATE: 149 bpm. SDP 5.2 cm. PLACENTA: Anterior. No previa. CERVIX: Not visualized. 2/2 breathing 2/2 movements 2/2 tone 2/2 amniotic fluid Total biophysical profile 05/17 IMPRESSION: 1. Single living intrauterine gestation in cephalic presentation. 2. Normal /8 biophysical profile. Kelley Diane DO IMG US ORDERABLES * NON-STRESS TEST - HIM SCAN (04/12/2023 12:00 AM CDT) 04/12/2023 Provider Outside PROCEDURES * NON-STRESS TEST - HIM SCAN (04/12/2023 12:00 AM CDT) 04/12/2023 Provider Outside PROCEDURES documented in this encounter Visit Diagnoses Diagnosis Encounter for triage in patient- Primary Encounter for triage in patient documented in this encounter Admitting Diagnoses Diagnosis Encounter for triage in patient documented in this encounter Additional Health Concerns Assessment Noted Time PHQ-9 Depression Total Score: 21 023 12:25 PM CDT documented as of this encounter Care Teams Cabinetmaker Maintenance Relationship Specialty Start Date End Date Abbey Bagley PA-C [employer] [id number] [address] PCP - General Physician Piano Mover 08/15/20 Abbey Bagley PA-C [employer] [address] [facility] [address] [place] [address] Physician Piano Mover 04/11/20 05/02/23 Ino Robbins MD [facility] [place] [address] [place] [address] Assigned OBGYN Provider 01/01/23 documented as of this encounter
--- OUTSIDE RECORDS SUMMARY | 2023-10-20 07:12 | XMS_ITS | Encounter Summary ---
Author Name Unknown Organization [place] Address [address] [place] [address] Care Team Providers Care Ruby On Rails Software Developer Name Role Phone Abbey Bagley PA-C Unavailable [phone] Abbey Bagley PA-C Primary Care Provider + [phone] Ino Robbins MD Unavailable + [phone] Reason for Referral * Home Health Therapies & Aides (Priority: 1-2 Weeks) Specialty Diagnoses / Procedures Referred By Bernardo belle Referred To Contact [facility] [address] [place] [address] Referral ID Status Reason Start Date Expiration Date Visits Re quested Visits Authorized Question Answer Please see patient within 96 hours of discharge Reason for Referral /Low Milk Supply Comments If your home visit was not scheduled during your hospital stay, you should receive a call from [facility] within 24 hours after discharge to schedule your ordered home visit. If you have not heard by then, please call [phone]. Reason for Visit * Reason Comments Induction Of Labor * Auth/Cert (Routine) Specialty Diagnoses / Procedures Referred By Bernardo belle Referred To Contact tissue coordinator Diagnoses Indication for care in labor or delivery Indication for care in labor or delivery [facility] [address] [place] [address] Referral ID Status Reason Start Date Expiration Date Visits Re quested Visits Authorized [id number] 1 1 Encounter Details Date Type Department Care Team (Latest Contact Info) Description 05/02/2023 7:24 AM CDT - 05/04/2023 12:33 PM CDT Hospital Encounter [facility] [address] [place] [id number] [place] [address] [place] [address] Vaginal delivery (Primary Dx); Indication for care in labor or delivery; anemia Discharge Disposition: Home-Health Care Svc Social History Tobacco Use Types Packs/Day Years Used Date Smoking Tobacco: Former Cigarettes 0.3 Q uit: 03/10/2023 Passive Smoke Exposure: Never Smokeless Tobacco: Never Alcohol Use Standard Drinks/Week Comments Not Currently 0 (1 standard drink = 0.6 oz pur e alcohol) Seldom PHQ-2 Answer Date Recorded PHQ-2 Score 0 04/14/2023 [place] Depression Scale Answer Date Recorded Last EPDS [...] Mass Index 32.81 05/02/2023 9:25 AM CDT documented in this encounter Discharge Summaries * Micheal Rodriguez MD - 05/04/2023 7:54 AM CDT [facility] OB /Discharge Note S: Patient without complaints. Minimal lochia. Wants to go home if baby okay for discharge. O: Blood pressure 110/67, pulse 70, temperature 97.9 ??F (36.6 ??C), temperature source Oral, resp.rate 16, height 1.702 m (5' 7), weight 98.4 kg (217 lb), last menstrual period 07/30/2022, SpO2 99%, unknown if currently . Urine output adequate Abdomen - Fundus firm, at umbilicus, nontender Extremities - No calf tenderness Hemoglobin Date Value Ref Range Status 05/03/2023 8.3 (L) 11.7 - 15.7 g/dL Final 03/10/2021 9.1 (L) 11.7 - 15.7 g/dL Final ] A: Day# 1, s/p Vaginal delivery - doing well Acute Blood Loss Anemia superimposed on chronic Anemia - due to typical intrapartum blood loss, no sx's, mild, plan to Rx w/ po Fe on discharge home. P: 1) Discharge home if baby okay for discharge. If baby needs to stay, cancel discharge. 2) F/U 6 weeks w/ Primary OB 3) Discharge meds: Fe sulfate 325 mg every day x 14 days, Cristhian Jaffe. MD Michael documented in this encounter Discharge Instructions * Discharge Instructions* Sharona Elena RN - 05/04/2023 11:35 AM CDT Warning Signs after Having a Baby Keep this paper on your fridge or somewhere else where you can see it. Call your provider if you have any of these symptoms up to 12 weeks after having your baby. Thoughts of hurting yourself or your baby Pain in your chest or trouble breathing Severe headache not helped by pain medicine Eyesight concerns (blurry vision, seeing spots or flashes of light, other changes to eyesight) Fainting, shaking or other signs of a seizure Call if you feel that it is an emergency. The symptoms below can happen to anyone after giving . They can be very serious. Call your provider if you have any of these warning signs. My provider???s phone number: Losing too much blood (hemorrhage) Call your provider if you soak through a pad in less than an hour or pass blood clots bigger than agolf ball. These may be signs that you are bleeding too much. Blood clots in the legs or lungs After you give , your body naturally clots its blood to help prevent blood loss. Sometimes this increased clotting can happen in other areas of the body, like the legs or lungs. This can block your blood flow and be very dangerous. Call your provider if you: Have a red, swollen spot on the back of your leg that is warm or painful when you touch it. Are coughing up blood. Infection Call your provider if you have any of these symptoms: Fever of 100.4 F (38 C) or higher. Pain or redness around your stitches if you had an incision. Any yellow, white, or green fluid coming from places where you had stitches or surgery. Mood Problems ( depression) Many people feel sad or have mood changes after having a baby. But for some people, these mood swings are worse. Call your provider right away if you feel so anxious or nervous that you can't care for yourself oryour baby. Preeclampsia (high blood pressure) Even if you didn't have high blood pressure when you were , you are at risk for the high blood pressure disease called preeclampsia. This risk can last up to 12 weeks after giving . Call your provider if you have: Pain on your right side under your rib cage Sudden swelling in the hands and face Remember: You know your body. If something doesn't feel right, get medical help. For informational purposes only. Not to replace the advice of your health care provider. Copyright 2020 [facility]. All rights reserved. Clinically reviewed by Gala Singh RNC-OB, MSN. [employer] [id number] - Rev 12/02. documented in this encounter Medications at Time [...] 14 days 14 tablet 0 05/04/2023 05/18/2023 documented as of this encounter H&P Notes * Kelley Diane DO - 05/04/2023 12:33 PM CDT No significant change in general health status based on exam of the patient, review of Nursing database and Dr. Kelley Diane DO Obstetrics and Gynecology [facility] [place] [facility] [place] * Kelley Diane DO - 05/02/2023 4:06 PM CDT [facility] Labor and Delivery History and Physical Merry Vargas Age: [age] year old Date of : 2000 Date of Admission: 05/02/2023 Primary care provider: Abbey Bagley Chief Complaint: Merry Vargas is a 22 year old female who is @ 39w3d and being admitted for SROM. GBS negative. history: OBSTETRIC HISTORY: OB History Para Term AB Living 2 1 1 0 0 1 SAB IAB Ectopic Multiple Live Births 0 0 0 0 1 # Outcome Date GA Lbr Randall/2nd Weight Sex Delivery Anes PTL Lv 2 Current 1 Term 03/09/21 38w2d 05:20 / 00:32 2.86 kg (6 lb 4.9 oz) M Vag-Vacuum EPI N SHANNA Complications: Intolerance Name: Chuy Apgar1: 8 Apgar5: 9 EDC: Estimated Date of Delivery: May 06, 2023 Labs: Lab Results Component Value Date ABO A 03/09/2021 RH Pos 03/09/2021 Negative 05/02/2023 HEPBANG Nonreactive 11/26/2022 CHPCRT Negative 11/26/2022 RUBELLAABIGG immune 09/11/2020 HGB 9.2 (L) 05/02/2023 GBS Status: Lab Results Component Value Date GBS Negative 02/27/2021 Active Problem List Patient Active Problem List Diagnosis Indication for care in labor or delivery Chronic GERD Club foot of fetus affecting antepartum care of mother Echogenic intracardiac focus of fetus on ultrasound Mirena IUD inserted : Due for removal 05/2026 Iron deficiency Mild intermittent asthma PTSD (post-traumatic stress disorder) Recurrent genital HSV (herpes simplex virus) infection Depression Encounter for triage in patient Medication Prior to Admission Medications Prior to Admission Medication Sig Dispense Refill Last Dose albuterol (PROAIR HFA/PROVENTIL HFA/VENTOLIN HFA) 108 (90 Base) MCG/ACT inhaler Inhale 1 puff into the lungs More than a month ferrous sulfate (FEROSUL) 325 (65 Fe) MG tablet Take 325 mg by mouth daily (with breakfast) 05/01/2023 Vit-Fe Fumarate-FA ( MULTIVITAMIN W/IRON) 27-0.8 MG tablet Take 1 tablet by mouth daily 90 tablet 3 05/01/2023 sertraline (ZOLOFT) 50 MG tablet Take 1 tablet (50 mg) by mouth daily 30 tablet 3 More than a month valACYclovir (VALTREX) 500 MG tablet TAKE 1 TABLET BY MOUTH EVERY DAY 90 tablet 1 05/01/2023 valACYclovir (VALTREX) 1000 mg tablet Take 1,000 mg by mouth (Patient not taking: Reported on 04/27/2023) . Maternal Past Medical History: Past Medical History: Diagnosis Date Anemia Anxiety Asthma Depressive disorder 12/2020 on meds Gastroesophageal reflux disease Genital herpes Migraines Family History: This patient has no significant family history Social History: This patient has no significant social history Review of Systems: CONSTITUTIONAL: NEGATIVE for fever, chills, change in weight INTEGUMENTARY/SKIN: NEGATIVE for worrisome rashes, moles or lesions EYES: NEGATIVE for vision changes or irritation ENT/MOUTH: NEGATIVE for ear, mouth and throat problems RESP: NEGATIVE for significant cough or SOB BREAST: NEGATIVE for masses, tenderness or discharge CV: NEGATIVE for chest pain, palpitations or peripheral edema GI: NEGATIVE for nausea, abdominal pain, heartburn, or change in bowel habits : NEGATIVE for frequency, dysuria, or hematuria MUSCULOSKELETAL: NEGATIVE for significant arthralgias or myalgia NEURO: NEGATIVE for weakness, dizziness or paresthesias ENDOCRINE: NEGATIVE for temperature intolerance, skin/hair changes HEME: NEGATIVE for bleeding problems PSYCHIATRIC: NEGATIVE for changes in mood or affect Physical Exam: Vitals were reviewed Patient Vitals for the past 8 hrs: BP Temp Temp src Resp Height Weight 05/02/23 1507 111/57 98 ??F (36.7 ??C) Oral 18 -- -- 05/02/23 1349 111/68 98.2 ??F (36.8 ??C) Oral 18 -- -- 05/02/23 1200 -- 98.1 ??F (36.7 ??C) Oral -- -- -- 05/02/23 1000 -- 98 ??F (36.7 ??C) Oral -- -- -- 05/02/23 0925 -- -- -- -- 1.702 m (5' 7) 98.4 kg (217 lb) Constitutional: Awake, alert, cooperative, no apparent distress, and appears stated age. Eyes: Lids and lashes normal, pupils equal, round and reactive to light, extra ocular muscles intact, sclera clear, conjunctiva normal. ENT: Normocephalic, without obvious abnormality, atramatic, sinuses nontender on palpation, external ears without lesions, oral pharynx with moist mucus membranes, tonsils without erythema or exudates, gums normal and good dentition. Neck: Supple, symmetrical, trachea midline, no adenopathy, thyroid symmetric, not enlarged and no tenderness, skin normal. Hematologic / Lymphatic: No cervical lymphadenopathy and no supraclavicular lymphadenopathy. Back: Symmetric, no curvature, spinous processes are non-tender on palpation, paraspinous muscles are non-tender on palpation, no costal vertebral tenderness. Lungs: No increased work of breathing, good air exchange, clear to auscultation bilaterally, no crackles or wheezing. Cardiovascular: Regular rate and rhythm, normal S1 and S2, no S3 or S4, and no murmur noted. Chest / Breast: Breasts symmetrical, skin without lesion(s), no nipple retraction or dimpling, no nipple discharge, no masses palpated, no axillary or supraclavicular adenopathy. Abdomen: No scars, normal bowel sounds, soft, non-distended, non-tender, no masses palpated, no hepatosplenomegally. Genitourinary: No urethral discharge, normal external genitalia, no hernia. Musculoskeletal: No redness, warmth, or swelling of the joints. Full range of motion noted. Motor strength is 5 out of 5 all extremities bilaterally. Tone is normal. Neurologic: Awake, alert, oriented to name, place and time. Cranial nerves II- XII are grossly intact. Motor is 5 out of 5 bilaterally. Cerebellar finger to nose, heel to escalona intact. Sensory is intact. Babinski down going, Romberg negative, and gait is normal. Neuropsychiatric: Normal affect, mood, orientation, memory and insight. Skin: No rashes, erythema, pallor, petechia or purpura. Cervix: Membranes: SROM Dilation: 1 Effacement: 50% Station:-2 Consistency: average Position: Mid Presentation:Cephalic Heart Rate Tracing: Tier 1 (normal) Tocometer: frequency q 2-4 minutes Assessment: Merry Vargas is a 22 year old female who is @ 39w3d and being admitted for SROM. GBS negative. Plan: Admit - see IP orders Labor induction with Pitocin, GBS negative. Anticipate Kelley Diane DO documented in this encounter Consult Notes * Yuli Pace LSW - 05/04/2023 9:51 AM CDTAssociated Order(s): CARE MANAGEMENT / SOCIAL WORK IP CONSULT SW is aware of consult placed due to patient having moved during & history of PPD. Per discussion with nursing patient is declining a need for a social work consult at this time. SW will clear consult & can be re-consulted if needs arise. DOUGLAS [facility] 05/04/2023 9:51 AM documented in this encounter Miscellaneous Notes * L&D Delivery Note - Kelley Diane DO - 05/04/2023 12:33 PM CDT OB Vaginal Delivery Note Merry Vargas Age: [age] year old Date of : 2000 GA: 39w4d GP: Labor Complications: EBL: mL Delivery QBL: 100 mL Delivery Type: Vaginal, Spontaneous ROM to Delivery Time: (Delivered) Hours: 19 Minutes: 59 Mullen Weight: 3.19 kg (7 lb 0.5 oz) 1 Minute 5 Minute 10 Minute Totals: 8 9 KEVEN THAO;MAE SCOTT Delivery Details: Merry Vargas, a 22 year old female delivered a viable infant with apgars of 8 and 9 . Patient was fully dilated and pushing after hours minutes in active labor. Delivery was via vaginal, spontaneous to a sterile field under epidural anesthesia. Infant delivered in vertex left occiput anterior position. Anterior and posterior shoulders delivered without difficulty. The cord was clamped, cut twice and 3 vessels were noted. Cord blood was obtained in routine fashion with the following disposition: discard . Cord complications: none Placenta delivered at 05/03/2023 2:23 AM . Placental disposition was Hospital disposal . Fundal massage performed and fundus found to be firm. Episiotomy: none Perineum, vagina, cervix were inspected, and the following lacerations were noted: Perineal lacerations: none Excellent hemostasis was noted. Needle count correct. Infant and patient in delivery room in good and stable condition. Aidan Vargas [[id number]] Labor Event Times Dilation complete date: 05/03/23 Complete time: 2:10 AM Start pushing date/time: 05/03/2023 0214 Labor Length 2nd Stage (hrs): 0 (min): 9 3rd Stage (hrs): 0 (min): 4 Labor Events labor?: No steroids: None Labor Type: Augmentation Predominate monitoring during 1st stage: continuous electronic monitoring Antibiotics received during labor?: No Rupture date/time: 05/02/23 0620 Rupture type: Spontaneous Rupture of Membranes Fluid color: Clear Augmentation: Oxytocin Augmentation date/time: 05/02/23 0915 Delivery/Placenta Date and Time Delivery Date: 05/03/23 Delivery Time: 2:19 AM Placenta Date/Time: 05/03/2023 2:23 AM Oxytocin given at the time of delivery: after delivery of baby Delivering clinician: Kelley Diane DO Other personnel present at delivery: Provider Role Keven Thao RN Delivery Nurse Mae Scott RN Delivery Assist Vaginal Counts Initial count performed by 2 team members: Two Team Members Dr. Benedicto Stern RN Oxford Suture Oxford Sponges (RETIRED) Instruments Initial counts 2 5 Added to count Relief counts Final counts 2 5 Placed during labor Accounted for at the end of labor FSE Yes Yes IUPC Yes Yes Cervidil No NA Final count performed by 2 team members: Two Team Members MD Keven Morillo, RN Final count correct?: Yes Pre- Team Brief: Complete Post- Team Debrief: Complete Apgars Living status: Living 1 Minute 5 Minute 10 Minute 15 Minute 20 Minute Skin color: 0 1 Heart rate: 2 2 Reflex irritability: 2 2 Muscle tone: 2 2 Respiratory effort: 2 2 Total: 8 9 Apgars assigned by: KEVEN Funes RN Cord Vessels: 3 Vessels Cord Complications: None Cord Blood Disposition: Discard Gases Sent?: No Delayed cord clamping?: Yes Cord Clamping Delay (seconds): 31-60 seconds Mullen Resuscitation Methods: None Care at Delivery: Infant to maternal chest. Stimulation and bulb suction provided Mullen Measurements Weight: 7 lb 0.5 oz Length: 1' 8.5 Head circumference: 33 cm Skin to Skin and Feeding Plan Skin to skin initiation date/time: 10/16/1840 Skin to skin with: Mother Skin to skin end date/time: Labor Events and Shoulder Dystocia Tracing Prior to Delivery: Category 1 Shoulder dystocia present?: Neg Delivery (Maternal) (Provider to Complete) ([id number]) Episiotomy: None Perineal lacerations: None Repair suture: None Blood Loss Mother: Chaz Vargasvivek Quarles #[id number] Start of Mother's Information Delivery Blood Loss 05/02/23 1419 - 05/04/23 0219 Delivery QBL (mL) Hospital Encounter 100 mL Total 100 mL End of Mother's Information Mother: AliciaChazvivek Quarles #[id number] Delivery - Provider to Complete ([id number]) Delivering clinician: Kelley Diane DO Delivery Type (Choose the 1 that will go to the History): Vaginal, Spontaneous Other personnel: Provider Role Keven Thao RN Delivery Nurse Mae Scott band tier Assist Placenta Date/Time: 05/03/2023 2:23 AM Removal: Spontaneous Disposition: Hospital disposal Anesthesia Method: Epidural Cervical dilation at placement: 0-3 Presentation and Position Presentation: Vertex Position: Left Occiput Anterior Kelley Diane DO * Plan of Care - Sharona Elena RN - 05/04/2023 12:22 PM CDT Vitals remained stable. checks within normal limits. Ambulating independently. Voiding spontaneously. every 2-3 hours, baby latching well but not sustaining latch every time and is sleepy. Education done with parents about ways to stimulate baby to feed. Formula feeding after each attempt per parent request. Tolerating 10-20 mL. Education complete with mom and spouse. All questions answered. Discharge paperwork discussed and signed for mom and baby. Bands checked. Sensor removed. Walked out with staff member at 1225. * Plan of Care - Cathy Mcintyre RN - 05/04/2023 3:21 AM CDT VSS and WDL. Fundus firm and midline, bleeding scant. Up ad lillian, voiding spontaneously. Pain well managed. baby every 2-3 hours, as well as supplementing with formula as needed. Independent with self and baby's cares. Spouse at bedside and supportive. * Plan of Care - Lorrie Clifford RN - 05/03/2023 8:41 PM CDT Patient doing well this shift. VSS. Eating and drinking, tolerating regular diet well. Voiding without difficulty. She has been independent with self and cares. Up ad lillian in the room. Husbandpresent, supportive and involved in care. * Plan of Care - Sharona Elena RN - 05/03/2023 2:46 PM CDT Vitals remained stable with Lower bps this morning with slight dizziness. Able to ambulate independently. Adequate oral intake with no reports of nausea. checks within normal limits. Pain controlled with ibuprofen. every 2-3 hours, baby very sleepy at breast. Bonding well with baby. Spouse at bedside and attentive to mom and baby. * Plan of Care - Cathy Mcintyre RN - 05/03/2023 5:17 AM CDT Pt transferred to unit at 0500 via wheelchair. Stable upon transfer. Room orientation completed, call light within reach. Pt told to call once more when needing to use bathroom, as legs were still feeling a little heavy. Voiding spontaneously. Pain well managed. baby every 2-3 hours. Attentive to baby's cues and bonding well. Spouse at bedside and supportive. * Plan of Care - Keven Thao RN - 05/03/2023 5:07 AM CDT Data: Merry Quarles Held transferred to 429 via wheelchair at 0450. Baby transferred via parent's arms. Action: Receiving unit notified of transfer: Yes. Patient and family notified of room change. Report given to LUCÍA Morgan at 0450. Belongings sent to receiving unit. Accompanied by Registered Nurse. Oriented patient to surroundings. Call light within reach. ID bands double-checked with receiving RN. Response: Patient tolerated transfer and is stable. * Provider Notification - Keven Thao RN - 05/03/2023 12:00 AM CDT MD updated on patient status. Comfortable with epidural & last SVE was roughly unchanged so internals were placed. First MVU was adequate. FHR moderate with accels and occ variables. Will plan toincrease pitocin as able and update MD as needed. * Provider Notification - Keven Thao RN - 05/02/2023 9:45 PM CDT 05/02/232144 Provider Notification Provider Name/Title Dr. Diane Method of Notification In Department MD updated on patient status. Pt got an epidural about an hour ago and is comfortable. Was tianna q2-3 before epidural but difficult to hot die picker now that she is on her side. FHR moderate with accels and no decels. Pitocin at 14. SVE at 1930 3/50/-2. If no cervical change after next SVE, orders to place internals. * Provider Notification - Carol Darnell RN - 05/02/2023 6:42 PM CDT 05/02/23 1832 Provider Notification Provider Name/Title Dr. Diane Method of Notification In Department Patient requesting fentanyl for discomfort. Patient will get an epidural but not ready yet Order received * Provider Notification - Zainab Regalado RN - 05/02/2023 3:33 PM CDT 05/02/23 1532 Provider Notification Provider Name/Title Dr. Diane Method of Notification In Department Request Evaluate - Remote UC's q 1.5-3, patient getting more uncomfortable, rates pain at 4. 12 ashwin units of Pitocin infusing. Update given. * Plan of Care - Zainab Regalado RN - 05/02/2023 1:38 PM CDT 1330- Patient admits to feeling occasional cramping/contracts, uterus palpates mild, rates pain at 1. Pitocin increased to 12 ashwin units. * Provider Notification - Zainab Regalado RN - 05/02/2023 12:57 PM CDT 05/02/23 1250 Provider Notification Provider Name/Title Dr. Diane Method of Notification Phone Request Evaluate in Person Tianna q 1.5-3 minutes, getting more uncomfortable, requesting stronger heartburn medicine. Dr. Diane updated per phone, order received for Mylanta. * Provider Notification - Zainab Regalado RN - 05/02/2023 8:49 AM CDT Data: Patient presented to Birthplace: 05/02/2023 7:24 AM. Patient admitted for induction for elective induction scheduled today and patient SROM. Patient is a . record reviewed. has been uncomplicated.. Gestational Age 39w3d. VSS. movement active. Patient denies vaginal bleeding, headache, visual disturbances, epigastric or URQ pain, significant edema. Support person is present. Action: Verbal consent for EFM. Admission assessment completed. Bill of rights reviewed. Response: Patient verbalized agreement with plan. Dr Kelley Diane contacted with update and orders received. documented in this encounter Plan of Treatment Scheduled Referrals Name Type Priority Associated Diagnoses Orde r Schedule Home Care Referral Referral Priority: 1-2 Weeks Vaginal delivery Ordered: 05/04/2023 documented as of this encounter Procedures Procedure Name Priority Date/Time Associated Diagnosis Comments HEMOGLOBIN Routine 05/03/2023 6:52 AM CDT TYPE AND SCREEN, ADULT STAT 05/02/2023 9:21 AM CDT TREPONEMA ABS W REFLEX TO RPR AND TITER STAT 05/02/2023 9:21 AM CDT HEMOGLOBIN STAT 05/02/2023 9:21 AM CDT ABO/RH TYPE AND SCREEN STAT 05/02/2023 9:21 AM CDT documented in this encounter Results * (ABNORMAL) Hemoglobin (05/03/2023 6:52 AM CDT) Hemoglobin 8.3(L) 11.7 - 15.7 g/dL 05/03/2023 7:08 AM CDT [facility] Blood STRUCTURE OF LEFT UPPER LIMB / Unknown Venipuncture / Unknown 05/03/2023 6:52 AM CDT 05/03/2023 7:04 AM CDT Kelley Diane DO LAB - BLOOD ORDER [facility] [address] [facility] (1st floor, no room number) [place] [address], [facility] [phone] * Adult Type and Screen (05/02/2023 9:21 AM CDT) ABO/RH(D) A POS 05/02/2023 8:50 AM CDT [facility] Antibody Screen Negative Negative 05/02/2023 8:50 AM CDT [facility] SPECIMEN EXPIRATION DATE [id number] 05/02/2023 8:50 AM CDT [facility] Blood BLOOD SPECIMEN / Unknown Venipuncture / Unknown 05/02/2023 9:21 AM CDT 05/02/2023 9:36 AM CDT Kelley Diane DO LAB - BLOOD BANK TEST ORDER Performing Organization Address City/[facility]/ZIP Co de Phone Number BLOOD BANK [address] [place] [address], [facility] [facility] * Treponema Abs w Reflex to RPR and Titer (05/02/2023 9:21 AM CDT) Treponema Antibody Total Nonreactive Nonreactive 05/02/2023 3:59 PM CDT [facility] DO Blood BLOOD SPECIMEN / Unknown Venipuncture / Unknown 05/02/2023 9:21 AM CDT 05/02/2023 9:36 AM CDT Kelley Diane DO LAB - BLOOD ORDER [facility]Endo [address] [facility] [address], Room [address] [place] [address], [facility] [phone] * (ABNORMAL) Hemoglobin (05/02/2023 9:21 AM CDT) Hemoglobin 9.2(L) 11.7 - 15.7 g/dL 05/02/2023 9:40 AM CDT LABORATORY Blood BLOOD SPECIMEN / Unknown Venipuncture / Unknown 05/02/2023 9:21 AM CDT 05/02/2023 9:36 AM CDT Kelley Diane DO LAB - BLOOD ORDER [facility] [address] [facility] (1st floor, no room number) [place] [address], [facility] [phone] documented in this encounter Visit Diagnoses Diagnosis Vaginal delivery- Primary Normal delivery Indication for care in labor or delivery Unspecified indication for care or intervention related to labor and delivery, unspecified as to episode of care anemia Anemia, Vaginal delivery Normal delivery anemia Anemia, documented in this encounter Admitting Diagnoses Diagnosis Indication for care in labor or delivery Unspecified indication for care or intervention related to labor and delivery, unspecified as to episode of care documented in this encounter Administered Medications Inactive Administered Medications - up to 3 most recent administrations Medication Order MAR Action Action Date Dose Rate Site acetaminophen (TYLENOL) tablet 650 mg 650 mg, Oral, EVERY 4 HOURS PRN, mild pain, fever, greater than or equal to 38?? C /100.4?? F (oral) or 38.5?? C/ 101.4?? F (core)., Starting on Tue05/03/23 at 0236, Maximum acetaminophen dose from all sources = 75 mg/kg/day not to exceed 4 grams/day. alum & mag hydroxide-simethicone (MAALOX) suspension 30 mL 30 mL, Oral, EVERY 4 HOURS PRN, indigestion, Starting on Tue05/02/23 at 1252, Shake well. $Given 05/03/2023 12:55 AM CDT 30 mLs $Given 05/02/2023 5:10 PM CDT 30 mLs $Given 05/02/2023 1:24 PM CDT 30 mLs benzocaine (AMERICAINE) 20 % topical spray Topical, 4 TIMES DAILY PRN, perineal pain, Starting on Tue05/03/23 at 0236 bisacodyl (DULCOLAX) suppository 10 mg 10 mg, Rectal, DAILY PRN, constipation, Starting on Tue05/03/23 at 0237, Do not administer if patient has 3rd or 4th degree lacerations. Hold for loose stools. calcium carbonate (TUMS) chewable tablet 1,000 mg 1,000 mg, Oral, DAILY PRN, heartburn, Starting on Tue05/02/23 at 0843 $Given 05/02/2023 9:12 AM CDT 1,000 mg carboprost (HEMABATE) injection 250 mcg 250 mcg, Intramuscular, EVERY 15 MIN PRN, ONLY for uterine atony with significant bleeding POST-DELIVERY, Starting on Tue05/03/23 at 0236, Notify provider IF uterine atony and clarify with provider medication preference. Administer only if directed by provider. Give with caution in patients with asthma, active pulmonary, hepatic, renal or cardiovascular disease. docusate sodium (COLACE) capsule 100 mg 100 mg, Oral, DAILY, First dose on Tue05/03/23 at 0900, Hold for loose stools. $Given 05/03/2023 9:34 AM CDT 100 mg fentaNYL (PF) (SUBLIMAZE) injection 100 mcg 100 mcg, Intravenous, EVERY 1 HOUR PRN, moderate pain, Starting on Tue05/02/23 at 1834 $Given 05/02/2023 8:18 PM CDT 100 mcg $Given 05/02/2023 7:05 PM CDT 100 mcg fentaNYL (SUBLIMAZE) 2 mcg/mL, bupivacaine (MARCAINE) 0.125% in NS premix for PCEA PCEA dose (mL): 5, PCEA Lockout Interval (min): 15 minutes, Hour Limit (mL): 25, Continuous Rate (Basal Rate) (mL/hr): 10, Absolutely no anticoagulants, thrombolytics or antiplatelet medications or other opioid analgesics or other sedatives without prior notification of anesthesiology. For CADD cassettes, pharmacy to send epidural tubing set., Routine $New Syringe/Cartridge 05/02/2023 9:01 PM CDT hydrocortisone (Perianal) (ANUSOL-HC) 2.5 % cream Rectal, 3 TIMES DAILY PRN, hemorrhoids, Starting on Tue05/03/23 at 0236, Apply to hemorrhoids. Send only if nurse requests. ibuprofen (ADVIL/MOTRIN) tablet 800 mg 800 mg, Oral, EVERY 6 HOURS PRN, other, cramping, Starting on Tue05/03/23 at 0236, Start 6 hours after ketorolac is completed (if ordered). Max dose: 3200 mg/day Give with food. $Given 05/04/2023 4:19 AM CDT 800 mg $Given 05/03/2023 1:42 PM CDT 800 mg $Given 05/03/2023 2:49 AM CDT 800 mg lactated ringers infusion at 25-125 mL/hr, Intravenous, CONTINUOUS, Intrapartum, Starting on Tue05/02/23 at 0900, Until Tue05/03/23 at 0239 $New Bag 05/02/2023 9:04 AM CDT 125 mL/hr lanolin cream Topical, EVERY 1 HOUR PRN, other, sore nipples, Starting on Tue05/03/23 at 0236, Apply to sore nipples. methylergonovine (METHERGINE) injection 200 mcg 200 mcg, Intramuscular, EVERY 2 HOURS PRN, ONLY for uterine atony with significant bleeding POST-DELIVERY, Starting on Tue05/03/23 at 0236, Notify provider IF uterine atony and clarify with provider medication preference. Administer only if directed by provider. Contraindicated if Blood Pressure greater than 140/90, preeclampsia, or hypertension. misoprostol (CYTOTEC) tablet 400 mcg 400 mcg, Oral, GIVE ONCE PRN AND REPEAT ACCORDING TO INSTRUCTIONS, post- hemorrhage, Starting on Tue05/03/23 at 0236, Administer only if directed by provider. Max administrations: 4 doses misoprostol (CYTOTEC) tablet 800 mcg 800 mcg, Rectal, GIVE ONCE PRN AND REPEAT ACCORDING TO INSTRUCTIONS, post- hemorrhage, Starting on Tue05/03/23 at 0236, Give rectally if unable to take oral without complications. Administer only if directed by provider. Max administrations: 4 doses. oxytocin (PITOCIN) 30 units in 500 mL 0.9% NaCl infusion 100-340 mL/hr, Intravenous, CONTINUOUS PRN, After delivery to prevent uterine atony, Starting on Tue05/02/23 at 0844, Give after delivery to prevent uterine atony per provider direction. Administer 340 mL/hr over 30 minutes for a total of 170 mL, then decrease to 100 mL/hr until infusion complete (about 3.5 hours) or per provider direction. Start new bag at delivery. Discontinue or saline lock peripheral IV per nurse discretion., $New Bag 05/03/2023 2:50 AM CDT 100 mL/hr 100 mL/hr $New Bag 05/03/2023 2:27 AM CDT 340 mL/hr 340 mL/hr oxytocin (PITOCIN) 30 units in 500 mL 0.9% NaCl infusion 1-24 ashwin-units/min (1-24 mL/hr), Intravenous, CONTINUOUS, Starting on Tue05/02/23 at 0900, Start infusion at 2 ashwin-units/min. Increase by 2 ashwin-units/min every 30 minutes until contractions are 2-3 minutes apart, lasting 45 to 60 seconds in duration to achieve labor progress. Max rate is 24 milliunits/min. Do NOT go higher without a provider order. If oxytocin (PITOCIN) infusion is discontinued and off for less than 30 minutes, restart infusion at half of previous oxytocin (PITOCIN) rate. If oxytocin (PITOCIN) infusion has been discontinued equal to or greater than 30 minutes, begin at initial dose. IF another cervical ripening medication is ordered wait 60 minutes after oxytocin (PITOCIN) infusion is stopped before administering cervical ripening medication., Intrapartum Rate/Dose Change 05/02/2023 4:59 PM CDT 14 ashwin-units/min 14 mL/hr Rate/Dose Change 05/02/2023 1:30 PM CDT 12 ashwin-units/min 12 mL/hr Rate/Dose Change 05/02/2023 11:17 AM CDT 10 ashwin-units/mi n 10 mL/hr oxytocin (PITOCIN) 30 units in 500 mL 0.9% NaCl infusion 340 mL/hr, Intravenous, CONTINUOUS PRN, for hemorrhage (PPH) UNTIL bleeding subsided., Starting on Tue05/03/23 at 0236, When bleeding subsides decrease rate to 100 mL/hr. Notify provider immediately when infusion begun. Oxytocin is first line medication for PPH. oxytocin (PITOCIN) injection 10 Units 10 Units, Intramuscular, ONCE PRN, for hemorrhage (PPH), IF no IV access is available., Starting on Tue05/03/23 at 0236, For 1 dose, Notify provider immediately when injection given. Oxytocin is first line medication for PPH. tranexamic acid 1 g in 100 mL NS IV bag (premix) 1 g, Intravenous, Administer over 10 Minutes, EVERY 30 MIN PRN, Post- hemorrhage (PPH), Starting on Tue05/03/23 at 0236, For 2 doses, Provider consultation REQUIRED and MUST be administered as soon as the ONSET of bleeding AND within 3 hours of regardless of cause of the PPH (atony OR laceration). IF bleeding continues, a 2nd dose may be administered after 30 minutes. IF concern for DIC (Disseminated Intravascular Coagulation), obtain coagulation studies PRIOR to administration. Contraindications include: history of PE (Pulmonary Emboli), DVT (Deep Vein Thrombosis) and current Subarachnoid hemorrhage and active DIC. Administer only if directed by provider. documented in this encounter Active and Recently Administered Medications Times are shown in CDT. Scheduled Medication Order 05/02/2023 05/03/2023 05/04/2023 docusate sodium (COLACE) capsule 100 mg 100 mg, Oral, DAILY, First dose on Tue05/03/23 at 0900, Hold for loose stools. 0934 ($Given - Provider: Sharona Elena RN) 0930 (Not Given - Provider: Sharona Elena RN - Reason: Patient/family refused) fentaNYL (SUBLIMAZE) 2 mcg/mL, bupivacaine (MARCAINE) 0.125% in NS premix for PCEA (CANCELED) PCEA dose (mL): 5, PCEA Lockout Interval (min): 15 minutes, Hour Limit (mL): 25, Continuous Rate (Basal Rate) (mL/hr): 10, Absolutely no anticoagulants, thrombolytics or antiplatelet medications or other opioid analgesics or other sedatives without prior notification of anesthesiology. For CADD cassettes, pharmacy to send epidural tubing set., Routine 1900 (Hold - Provider: Keven Thao RN - Reason: Order parameters not met)2100 ($New Syringe/Cartridge - Provider: Keven Thao RN) 227 (Stopped - Provider: Keven Thao RN) Continuous Medication Order 05/02/2023 05/03/2023 05/04/2023 lactated ringers infusion (CANCELED) at 25-125 mL/hr, Intravenous, CONTINUOUS, Intrapartum, Starting on Tue05/02/23 at 0900, Until Tue05/03/23 at 0239 0904 ($New Bag - Provider: Zainab Regalado RN) oxytocin (PITOCIN) 30 units in 500 mL 0.9% NaCl infusion (CANCELED) 1-24 ashwin-units/min (1-24 mL/hr), Intravenous, CONTINUOUS, Starting on Tue05/02/23 at 0900, Start infusion at 2 ashwin-units/min. Increase by 2 ashwin-units/min every 30 minutes until contractions are 2-3 minutes apart, lasting 45 to 60 seconds in duration to achieve labor progress. Max rate is 24 milliunits/min. Do NOT go higher without a provider order. If oxytocin (PITOCIN) infusion is discontinued and off for less than 30 minutes, restart infusion at half of previous oxytocin (PITOCIN) rate. If oxytocin (PITOCIN) infusion has been discontinued equal to or greater than 30 minutes, begin at initial dose. IF another cervical ripening medication is ordered wait 60 minutes after oxytocin (PITOCIN) infusion is stopped before administering cervical ripening medication., Intrapartum 0913 ($New Bag - Provider: Zainab Regalado RN)0945 (Rate/Dose Change - Provider: Zainab Regalado RN)1015 (Rate/Dose Change - Provider: Zainab Regalado RN)1045 (Rate/Dose Change - Provider: Zainab Regalado RN)1117 (Rate/Dose Change - Provider: Zainab Regalado RN)1330 (Rate/Dose Change - Provider: Zainab Regalado RN)1659 (Rate/Dose Change - Provider: Carol Darnell RN) PRN Medication Order 05/02/2023 05/03/2023 05/04/2023 acetaminophen (TYLENOL) tablet 650 mg 650 mg, Oral, EVERY 4 HOURS PRN, mild pain, fever, greater than or equal to 38?? C /100.4?? F (oral) or 38.5?? C/ 101.4?? F (core)., Starting on Tue05/03/23 at 0236, Maximum acetaminophen dose from all sources = 75 mg/kg/day not to exceed 4 grams/day. alum & mag hydroxide-simethicone (MAALOX) suspension 30 mL (CANCELED) 30 mL, Oral, EVERY 4 HOURS PRN, indigestion, Starting on Tue05/02/23 at 1252, Shake well. 1324 ($Given - Provider: Zainab Regalado RN)1710 ($Given - Provider: Carol Darnell, LUCÍA) 0055 ($Given - Provider: Keven Thao, LUCÍA) benzocaine (AMERICAINE) 20 % topical spray Topical, 4 TIMES DAILY PRN, perineal pain, Starting on Tue05/03/23 at 0236 bisacodyl (DULCOLAX) suppository 10 mg 10 mg, Rectal, DAILY PRN, constipation, Starting on Tue05/03/23 at 0237, Do not administer if patient has 3rd or 4th degree lacerations. Hold for loose stools. calcium carbonate (TUMS) chewable tablet 1,000 mg (CANCELED) 1,000 mg, Oral, DAILY PRN, heartburn, Starting on Tue05/02/23 at 0843 0912 ($Given - Provider: Zainab Regalado RN) carboprost (HEMABATE) injection 250 mcg 250 mcg, Intramuscular, EVERY 15 MIN PRN, ONLY for uterine atony with significant bleeding POST-DELIVERY, Starting on Tue05/03/23 at 0236, Notify provider IF uterine atony and clarify with provider medication preference. Administer only if directed by provider. Give with caution in patients with asthma, active pulmonary, hepatic, renal or cardiovascular disease. fentaNYL (PF) (SUBLIMAZE) injection 100 mcg (CANCELED) 100 mcg, Intravenous, EVERY 1 HOUR PRN, moderate pain, Starting on Tue05/02/23 at 1834 1905 ($Given - Provider: Carol Darnell, LUCÍA)2018 ($Given - Provider: Keven Thao, LUCÍA) hydrocortisone (Perianal) (ANUSOL-HC) 2.5 % cream Rectal, 3 TIMES DAILY PRN, hemorrhoids, Starting on Tue05/03/23 at 0236, Apply to hemorrhoids. Send only if nurse requests. ibuprofen (ADVIL/MOTRIN) tablet 800 mg 800 mg, Oral, EVERY 6 HOURS PRN, other, cramping, Starting on Tue05/03/23 at 0236, Start 6 hours after ketorolac is completed (if ordered). Max dose: 3200 mg/day Give with food. 0249 ($Given - Provider: Keven Thao, RN)1342 ($Given - Provider: Maite Delgado, LUCÍA) 0419 ($Given - Provider: Cathy Mcintyre RN) lanolin cream Topical, EVERY 1 HOUR PRN, other, sore nipples, Starting on Tue05/03/23 at 0236, Apply to sore nipples. methylergonovine (METHERGINE) injection 200 mcg 200 mcg, Intramuscular, EVERY 2 HOURS PRN, ONLY for uterine atony with significant bleeding POST-DELIVERY, Starting on Tue05/03/23 at 0236, Notify provider IF uterine atony and clarify with provider medication preference. Administer only if directed by provider. Contraindicated if Blood Pressure greater than 140/90, preeclampsia, or hypertension. misoprostol (CYTOTEC) tablet 400 mcg(Linked Group 1) 400 mcg, Oral, GIVE ONCE PRN AND REPEAT ACCORDING TO INSTRUCTIONS, post- hemorrhage, Starting on Tue05/03/23 at 0236, Administer only if directed by provider. Max administrations: 4 doses misoprostol (CYTOTEC) tablet 800 mcg(Linked Group 1) 800 mcg, Rectal, GIVE ONCE PRN AND REPEAT ACCORDING TO INSTRUCTIONS, post- hemorrhage, Starting on Tue05/03/23 at 0236, Give rectally if unable to take oral without complications. Administer only if directed by provider. Max administrations: 4 doses. oxytocin (PITOCIN) 30 units in 500 mL 0.9% NaCl infusion (CANCELED) 100-340 mL/hr, Intravenous, CONTINUOUS PRN, After delivery to prevent uterine atony, Starting on Tue05/02/23 at 0844, Give after delivery to prevent uterine atony per provider direction. Administer 340 mL/hr over 30 minutes for a total of 170 mL, then decrease to 100 mL/hr until infusion complete (about 3.5 hours) or per provider direction. Start new bag at delivery. Discontinue or saline lock peripheral IV per nurse discretion., 226 ($New Bag - Provider: Keven Thao, RN)0250 ($New Bag - Provider: Keven Thao, RN) oxytocin (PITOCIN) 30 units in 500 mL 0.9% NaCl infusion 340 mL/hr, Intravenous, CONTINUOUS PRN, for hemorrhage (PPH) UNTIL bleeding subsided., Starting on Tue05/03/23 at 0236, When bleeding subsides decrease rate to 100 mL/hr. Notify provider immediately when infusion begun. Oxytocin is first line medication for PPH. oxytocin (PITOCIN) injection 10 Units 10 Units, Intramuscular, ONCE PRN, for hemorrhage (PPH), IF no IV access is available., Starting on Tue05/03/23 at 0236, For 1 dose, Notify provider immediately when injection given. Oxytocin is first line medication for PPH. tranexamic acid 1 g in 100 mL NS IV bag (premix) 1 g, Intravenous, Administer over 10 Minutes, EVERY 30 MIN PRN, Post- hemorrhage (PPH), Starting on Tue05/03/23 at 0236, For 2 doses, Provider consultation REQUIRED and MUST be administered as soon as the ONSET of bleeding AND within 3 hours of regardless of cause of the PPH (atony OR laceration). IF bleeding continues, a 2nd dose may be administered after 30 minutes. IF concern for DIC (Disseminated Intravascular Coagulation), obtain coagulation studies PRIOR to administration. Contraindications include: history of PE (Pulmonary Emboli), DVT (Deep Vein Thrombosis) and current Subarachnoid hemorrhage and active DIC. Administer only if directed by provider. Linked Groups Order Group 1: misoprostol (CYTOTEC) tablet 400 mcgJump to med 400 mcg, Oral, GIVE ONCE PRN AND REPEAT ACCORDING TO INSTRUCTIONS, post- hemorrhage, Starting on Tue05/03/23 at 0236, Administer only if directed by provider. Max administrations: 4 doses Or misoprostol (CYTOTEC) tablet 800 mcgJump to med 800 mcg, Rectal, GIVE ONCE PRN AND REPEAT ACCORDING TO INSTRUCTIONS, post- hemorrhage, Starting on Tue05/03/23 at 0236, Give rectally if unable to take oral without complications. Administer only if directed by provider. Max administrations: 4 doses. 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
--- OUTSIDE RECORDS SUMMARY | 2023-10-20 07:13 | XMS_ITS | Encounter Summary ---
Author Name Unknown Organization [facility] [place] [address] Care Team Providers Care Dust Handler Name Role Phone Abbey Bagley PA-C Unavailable [phone] Abbey Bagley PA-C Primary Care Provider + [phone] Ino Robbins MD Unavailable + [phone] Encounter Details Date Type Department Care Team (Latest Contact Info) Description 03/23/2023 Travel Social History Tobacco Use Types Packs/Day Years Used Date Smoking Tobacco: Some Days Cigarettes 0.3 Smokeless Tobacco: Never Alcohol Use Standard Drinks/Week Comments Not Currently 0 (1 standard drink = 0.6 oz pur e alcohol) Seldom PHQ-2 Answer Date Recorded PHQ-2 Score 2 11/26/2022 [place] Depression Scale Answer Date Recorded [place] Depression Score 13 03/10/2021 Last EPDS Self [...] suspected to have Coronavirus/COVID-19? No / Unsure 03/23/2023 1:30 PM CDT documented as of this encounter Plan of Treatment Not on file documented as of this encounter Visit Diagnoses Not on filedocumented in this encounter Additional Health Concerns Assessment Noted Time PHQ-9 Depression Total Score: 19 021 3:52 PM CDT documented as of this encounter Care Teams Dust Handler Relationship Specialty Start Date End Date Abbey Bagley PA-C [employer] [address] [place] [address] PCP - General Physician Biller 08/15/20 Abbey Bagley PA-C [employer] [address] [place] [address] Physician Biller 04/11/20 05/02/23 Ino Robbins MD [address] [place] [address] Assigned OBGYN Provider 01/01/23 documented as of this encounter
--- OUTSIDE RECORDS SUMMARY | 2023-10-20 07:13 | XMS_ITS | Encounter Summary ---
Author Name Unknown Organization [place] Address [address] [facility] [place] [address] Care Team Providers Care Cream Maker Name Role Phone Abbey Bagley PA-C Unavailable [phone] Abbey Bagley PA-C Primary Care Provider [phone] Ino Robbins MD Unavailable Reason for Visit * Reason Comments Vaginal Bleeding Encounter Details Date Type Department Care Team (Latest Contact Info) Description 04/09/2023 1:24 PM CDT - 04/09/2023 3:18 PM CDT Hospital Encounter [facility] [address] [place] [address] Christie Medellin MD [address] [place] [address] Discharge Disposition: Home or Self Care Social History Tobacco Use Types Packs/Day Years Used Date Smoking Tobacco: Some Days Cigarettes 0.3 Smokeless Tobacco: Never Alcohol Use Standard Drinks/Week Comments Not Currently 0 (1 standard drink = 0.6 oz pur e alcohol) Seldom PHQ-2 Answer Date Recorded PHQ-2 Score 4 03/30/2023 [place] Depression Scale Answer Date Recorded [place] Depression Score 13 03/10/2021 Last EPDS Self [...] suspected to have Coronavirus/COVID-19? No / Unsure 04/01/2023 8:31 AM CDT documented as of this encounter Last Filed Vital Signs Vital Sign Reading Time Taken Comments Blood Pressure 121/68 04/09/2023 1:42 PM CDT Pulse - - Temperature 36.8 ??C (98.3 ??F) 04/09/2023 1:42 PM CD T Respiratory Rate 16 04/09/2023 1:42 PM CDT Oxygen Saturation - - Inhaled Oxygen Concentration - - Weight - - Height - - Body Mass Index - - documented in this encounter Discharge Instructions * Discharge Instructions* Tali Matthews RN - 04/09/2023 2:52 PM CDT Discharge Instruction for Undelivered Patients You were seen for: Bleeding Assessment We Consulted: Dr. Christie Medellin You had (Test or Medicine): and uterine monitoring, cervical exam, wet prep and urine analysis Diet: Drink 8 to 12 glasses of liquids (milk, juice, water) every day. You may eat meals and snacks. Activity: Pelvic rest-Nothing in the vagina Count kicks everyday (see handout) Call your doctor or nurse auto bumper straightener if your baby is moving less than [...] mouth daily 60 capsule 3 11/26/2022 04/20/2023 Vit-Fe Fumarate-FA (PNV PLUS MULTIVITAMIN) 27-1 MG TABS per tablet Take 1 tablet by mouth daily 0 04/20/2023 valACYclovir (VALTREX) 1000 mg tablet Take 1,000 mg by mouth 0 05/04/2023 documented as of this encounter Plan of Treatment Scheduled Orders Name Type Priority Associated Diagnoses Orde r Schedule Non Stress Test by Provider/environmental studies program director Routine One Time for 1 Occurrences starting 04/09/2023 until 04/09/2023 documented as of this encounter Procedures Procedure Name Priority Date/Time Associated Diagnosis Comments ROUTINE UA WITH MICROSCOPIC REFLEX TO CULTURE STAT 04/09/2023 2:29 PM CDT WET PREPARATION STAT 04/09/2023 2:29 PM CDT NON-STRESS TEST - HIM SCAN 04/09/2023 12:00 AM CDT documented in this encounter Results * (ABNORMAL) UA with Microscopic reflex to Culture (04/09/2023 2:29 PM CDT) Color Urine Yellow Colorless, Straw, Light Yellow, Yellow 04/09/2023 2:42 PM CDT LABORATORY Appearance Urine Clear Clear 04/09/20 2:42 PM CDT LABORATORY Glucose Urine Negative Negative mg/dL 04/09/2023 2:42 PM CDT LABORATORY Bilirubin Urine Negative Negative 2:42 PM CDT LABORATORY Ketones Urine Trace(A) Negative mg/dL 04/09/2023 2:42 PM CDT LABORATORY Specific [place] Urine 1.027 1.003 - 1.035 04/09/2023 2:42 PM CDT LABORATORY Blood Urine Moderate(A) Negative 04/09/2023 2:42 PM CDT LABORATORY pH Urine 6.0 5.0 - 7.0 04/09/2023 2:42 PM CDT LABORATORY Protein Albumin Urine 20(A) Negative mg/dL 04/09/2023 2:42 PM CDT LABORATORY Urobilinogen Urine Normal Normal, 2.0 mg/dL 04/09/2023 2:42 PM CDT LABORATORY Nitrite Urine Negative Negative 04/09/2023 2:42 PM CDT LABORATORY Leukocyte Esterase Urine Negative Negative 04/09/2023 2:42 PM CDT LABORATORY Mucus Urine Present(A) None Seen /LPF 04/09/2023 2:42 PM CDT LABORATORY RBC Urine 8(H) <=2 /HPF 04/09/2023 2:42 PM CDT LABORATORY WBC Urine 1 <=5 /HPF 04/09/2023 2:42 PM CDT LABORATORY Squamous Epithelials Urine 18(H) <=1 /HPF 04/09/2023 2:42 PM CDT LABORATORY Urine URINE SPECIMEN OBTAINED BY CLEAN CATCH PROCEDURE / Unknown Non-blood Collection / Unknown 04/09/2023 2:29 PM CDT 04/09/2023 2:36 PM CDT Narrative LABORATORY - 04/09/2023 2:42 PM CDT Urine Culture not indicated Christie Medellin MD LAB - URINE ORDERABL ES Performing Organization Address City/[facility]/ZIP Co de Phone Number LABORATORY [facility] [address], [address] [place] [address], [facility] [phone] * (ABNORMAL) Wet preparation (04/09/2023 2:29 PM CDT) Trichomonas Absent Absent RHIANNA 04/09/2023 2:48 PM CDT LABORATORY Yeast Absent Absent RHIANNA 04/09/2023 2:48 PM CDT LABORATORY Clue Cells Absent Absent RHIANNA 04/09/2023 2:48 PM CDT LABORATORY WBCs/high power field 1+(A) None RHIANNA 04/09/2023 2:48 PM CDT LABORATORY Swab VAGINAL STRUCTURE / Unknown Non-blood Collection / Unknown 04/09/2023 2:29 PM CDT 04/09/2023 2:35 PM CDT Christie Medellin MD LAB - MICRO GENERAL ORDERABLES LABORATORY [facility] [address], [address] [place] [address], [facility] [phone] * NON-STRESS TEST - HIM SCAN (04/09/2023 12:00 AM CDT) 04/09/2023 Provider Outside PROCEDURES documented in this encounter [...] PRN, pain, with VAD insertion, Starting on 04/09/23 at 1415, Apply at least 30 minutes prior to [...] mild pain with VAD insertion, Starting on 04/09/23 at 1415, MAX dose 1 mL subcutaneous OR intradermal [...] Intracatheter, EVERY 8 HOURS, First dose on 04/09/23 at 1430, to lock peripheral IV dormant line, OB Preadmission sodium chloride (PF) 0.9% PF flush 3 mL 3 mL, Intracatheter, EVERY 1 MIN PRN, line flush, other, to ensure patency or to lock dormant line, Starting on 04/09/23 at 1415, OB Preadmission documented in this encounter Active and Recently Administered Medications Times are shown in CDT. Scheduled Medication Order 04/07/2023 04/08/2023 04/09/2023 sodium chloride (PF) 0.9% PF flush 3 mL 3 mL, Intracatheter, EVERY 8 HOURS, First dose on 04/09/23 at 1430, to lock peripheral IV dormant line, OB Preadmission 1430 (Canceled Entry - Provider: Orders Generic Provider - Comment: Automatically canceled at discontinue of medication order) PRN Medication Order 04/07/2023 04/08/2023 04/09/2023 lidocaine (LMX4) cream Topical, EVERY 1 HOUR PRN, pain, with VAD insertion, Starting on 04/09/23 at 1415, Apply at least 30 minutes prior to [...] mild pain with VAD insertion, Starting on 04/09/23 at 1415, MAX dose 1 mL subcutaneous OR intradermal [...] or to lock dormant line, Starting on 04/09/23 at 1415, OB Preadmission documented in this encounter Additional Health Concerns Assessment Noted Time PHQ-9 Depression Total Score: 21 023 12:25 PM CDT documented as of this encounter Care Teams Cream Maker Relationship Specialty Start Date End Date Abbey Bagley PA-C [employer] [address] [place] [address] PCP - General Physician Toxicology Supervisor 08/15/20 Abbey Bagley PA-C [employer] [facility] [place] [address] [place] [address] Physician Toxicology Supervisor 04/11/20 05/02/23 Ino Robbins MD [address] [place], [place] [address] Assigned OBGYN Provider 01/01/23 documented as of this encounter
--- OUTSIDE RECORDS SUMMARY | 2023-10-20 07:13 | XMS_ITS | Encounter Summary ---
Author Name Unknown Organization [place] Address [facility] [place] [address] Care Team Providers Care Account Support Associate Name Role Phone Abbey Bagley PA-C Unavailable [phone] Abbey Bagley PA-C Primary Care Provider + [phone] Ino Robbins MD Unavailable + [phone] Encounter Details Date Type Department Care Team (Latest Contact Info) Description 04/01/2023 Travel Social History Tobacco Use Types Packs/Day Years Used Date Smoking Tobacco: Some Days Cigarettes 0.3 Smokeless Tobacco: Never Alcohol Use Standard Drinks/Week Comments Not Currently 0 (1 standard drink = 0.6 oz pur e alcohol) Seldom PHQ-2 Answer Date Recorded PHQ-2 Score 4 03/30/2023 [place] Depression Scale Answer Date Recorded [place] Depression Score 13 03/10/2021 Last EPDS Self [...] AM CDT documented as of this encounter Plan of Treatment Not on file documented as of this encounter Visit Diagnoses Not on filedocumented in this encounter Additional Health Concerns Assessment Noted Time PHQ-9 Depression Total Score: 21 023 12:25 PM CDT documented as of this encounter Care Teams Account Support Associate Relationship Specialty Start Date End Date Abbey Bagley PA-C [employer] [address] [facility] [address] [place] [address] PCP - General Physician Semiconductor Packages Leak Tester 08/15/20 Abbey Bagley PA-C [employer] [address] [facility] [address] [place] [address] Physician Semiconductor Packages Leak Tester 04/11/20 05/02/23 Ino Robbins MD [address] [place] [address] Assigned OBGYN Provider 01/01/23 documented as of this encounter
--- OUTSIDE RECORDS SUMMARY | 2023-10-20 07:13 | XMS_ITS | Encounter Summary ---
Author Name Unknown Organization [place] Address Replaced by [facility] [place] [address] Care Team Providers Care Sprinkler Inspector Name Role Phone Abbey Bagley PA-C Unavailable [phone] Abbey Bagley PA-C Primary Care Provider + [phone] Ino Robbins MD Unavailable + [phone] Encounter Details Date Type Department Care Team (Latest Contact Info) Description 01/25/2023 Travel Social History Tobacco Use Types Packs/Day Years Used Date Smoking Tobacco: Some Days Cigarettes 0.3 Smokeless Tobacco: Never Alcohol Use Standard Drinks/Week Comments Not Currently 0 (1 standard drink = 0.6 oz pur e alcohol) Seldom PHQ-2 Answer Date Recorded PHQ-2 Score 2 11/26/2022 [place] Depression Scale Answer Date Recorded [place] Depression Score 13 03/10/2021 Last EPDS Self [...] suspected to have Coronavirus/COVID-19? No / Unsure 01/25/2023 10:11 AM CDT documented as of this encounter Plan of Treatment Not on file documented as of this encounter Visit Diagnoses Not on filedocumented in this encounter Additional Health Concerns Assessment Noted Time PHQ-9 Depression Total Score: 19 021 3:52 PM CDT documented as of this encounter Care Teams Sprinkler Inspector Relationship Specialty Start Date End Date Abbey Bagley PA-C [employer] [address] [facility] [address] [place] [address] PCP - General Physician Machine Feller 08/15/20 Abbey Bagley PA-C [employer] [address] [facility] [address] [place] [address] Physician Machine Feller 04/11/20 05/02/23 Ino Robbins MD [address] [place] [address] Assigned OBGYN Provider 01/01/23 documented as of this encounter
--- OUTSIDE RECORDS SUMMARY | 2023-10-20 07:13 | XMS_ITS | Encounter Summary ---
Author Name Unknown Organization [place] Address [facility] [place] [address] Care Team Providers Care Perl Developer Name Role Phone Abbey Bagley PA-C Unavailable [phone] Abbey Bagley PA-C Primary Care Provider + [phone] Ino Robbins MD Unavailable + [phone] Encounter Details Date Type Department Care Team (Latest Contact Info) Description 01/19/2023 Travel Social History Tobacco Use Types Packs/Day Years Used Date Smoking Tobacco: Some Days Cigarettes 0.3 Smokeless Tobacco: Never Alcohol Use Standard Drinks/Week Comments Not Currently 0 (1 standard drink = 0.6 oz pur e alcohol) Seldom PHQ-2 Answer Date Recorded PHQ-2 Score 2 11/26/2022 [place] Depression Scale Answer Date Recorded [place] Depression Score 13 03/10/2021 Last EPDS Self [...] suspected to have Coronavirus/COVID-19? No / Unsure 01/19/2023 1:25 PM CDT documented as of this encounter Plan of Treatment Not on file documented as of this encounter Visit Diagnoses Not on filedocumented in this encounter Additional Health Concerns Assessment Noted Time PHQ-9 Depression Total Score: 19 021 3:52 PM CDT documented as of this encounter Care Teams Perl Developer Relationship Specialty Start Date End Date Abbey Bagley PA-C [employer] [address] [facility] [address] [place] [address] PCP - General Physician Boat Engines Installer 08/15/20 Abbey Bagley PA-C [employer] [address] [facility] [address] [place] [address] Physician Boat Engines Installer 04/11/20 05/02/23 Ino Robbins MD [address] [place] [address] Assigned OBGYN Provider 01/01/23 documented as of this encounter
--- OUTSIDE RECORDS SUMMARY | 2023-10-20 07:13 | XMS_ITS | Encounter Summary ---
Author Name Unknown Organization [place] Address [address] [facility] [place] [address] Care Team Providers Care Mail Handler Assistant Name Role Phone Abbey Bagley PA-C Unavailable [phone] Abbey Bagley PA-C Primary Care Provider Kelley Diane DO Unavailable [phone] Reason for Visit * Diagnostic Imaging Ultrasound (Routine) - Pending Review Specialty Diagnoses / Procedures Referred By Bernardo belle Referred To Contact Radiology. Diagnoses care in second trimester Procedures US OB >14 Weeks Follow Up Ino Robbins MD [address] [place] [address] Referral ID Status Reason Start Date Expiration Date V isits Requested Visits Authorized [id number] Pending Review 12/14/2022 12/14/2023 1 1 Encounter Details Date Type Department Care Team (Late st Contact Info) Description 12/30/2022 3:40 PM CDT Ancillary Procedure [address] [id number] Ino Robbins MD [address] [place] [address] care in second trimester Social History Tobacco Use Types Packs/Day Years Used Date Smoking Tobacco: Some Days Cigarettes 0.3 Smokeless Tobacco: Never Alcohol Use Standard Drinks/Week Comments Not Currently 0 (1 standard drink = 0.6 oz pur e alcohol) Seldom PHQ-2 Answer Date Recorded PHQ-2 Score 2 11/26/2022 [place] Depression Scale Answer Date Recorded [place] Depression Score 13 03/10/2021 Last EPDS Self [...] suspected to have Coronavirus/COVID-19? No / Unsure 12/30/2022 3:11 PM CDT documented as of this encounter Plan of Treatment Not on file documented as of this encounter Procedures Procedure Name Priority Date/Time Associated Diagnosis Comments US OB FOLLOW UP >14 WEEKS Routine 12/30/2022 4:12 PM CDT care in second trimester documented in this encounter Results * (ABNORMAL) US OB >14 Weeks Follow Up (12/30/2022 4:12 PM CDT) Anatomical Region Laterality Modality Abdomen/Pelvis Ultrasound Impressions 12/30/2022 6:59 PM CDT ? [place] Gestation. ?? presentation: Cephalic Placenta: Anterior, no previa, > 2 cm from internal os ?? Cord: 3 Vessel Cord ?? MEASUREMENTS BPD 5.30 cm 22w1d HC 19.84 cm 22w0d AC 16.08 cm 21w1d FL 3.62 cm 21w3d HL 3.70 cm 22w6d Heart Rate 169 bpm ?? Amniotic fluid 4.5 cm MVP ?? EFW (lbs/oz) 0 lbs 15ozs ?? EFW (g) 422 g 23.5% EDC: ?? 05/07/23 GA by Current Scan: 21w5d ? SURVEY Visualized with normal appearance: 4 Chamber Heart, RVOT, Kidneys, Stomach, and Bladder Not visualized on today? s ultrasound: LVOT Abnormal appearance: ?? MATERNAL ANATOMY ?? Right Ovary: Visualized Left Ovary: Not visualized ?? *Other Findings: ?? Impression: ?? Limited growth obstetrical ultrasound using realtime transabdominal scanning. No gross anomalies observed. Corresponding menstrual and sonographic dates. Amniotic fluid assessment is Normal. Spine and 4CH view seen and appear normal on today's sonogram. ?? Sub-optimal views of LVOT due to maternal habitus and position, favor normal. ??Consider short term follow-up versus referral to M to complete heart views. growth shows satisfactory interval growth with composite EFW 24%ile Camila Ledezma MD Note: federal law requires the release of results to patients even prior to the ordering provider viewing the result. Your provider will notify you, generally within 24 hours, of any critical results. If follow up is necessary, you will be notified at that time. Normal results, and abnormal but non-urgent results, will generally be addressed within 48-72 hours. ?? Narrative 12/30/2022 6:59 PM CDT Table formatting from the original result was not included. [facility] ULTRASOUND - OB FOLLOW UP > 14 Weeks - Transabdominal ?? Referring Provider: Ino Robbins MD ?? INDICATIONS FOR ULTRASOUND: OB History: Present Conditions: Follow-up spine, heart, outflow tracts ?? CLINICAL INFORMATION ?? LMP: Jul 31 ??- sure EDC: May 01 ?EGA: 21w 6d Ino Robbins MD [facility] ORDERAB LES documented in this encounter Visit Diagnoses Diagnosis care in second trimester documented in this encounter Additional Health Concerns Assessment Noted Time PHQ-9 Depression Total Score: 19 05/14/ 021 3:52 PM CDT documented as of this encounter Care Teams Mail Handler Assistant Relationship Specialty Start Date End Date Abbey Bagley PA-C [employer] [address] [address] PCP - General Physician Franchise Business Consultant 08/15/20 Abbey Bagley PA-C [employer] [address] [facility] [address] [place] [address] Physician Franchise Business Consultant 04/11/20 05/02/23 [place] [address] [place] [address] Assigned OBGYN Provider 12/04/22 documented as of this encounter
--- OUTSIDE RECORDS SUMMARY | 2023-10-20 07:13 | XMS_ITS | Encounter Summary ---
Author Name Unknown Organization [place] Address [address] [facility] [place] [address] Care Team Providers Care Anesthesiologist/Physician Name Role Phone Abbey Bagley PA-C Unavailable [phone] Abbey Bagley PA-C Primary Care Provider + [phone] Ino Robbins MD Unavailable [phone] Encounter Details Date Type Department Care Team (Late st Contact Info) Description 03/30/2023 Orders Only [facility] [place] [address] [facility] [address] [place] [address] Ino Robbins MD [address] [place], [place] [address] Abnormal maternal glucose tolerance, antepartum (Primary Dx) Social History Tobacco Use Types Packs/Day Years Used Date Smoking Tobacco: Some Days Cigarettes 0.3 Smokeless Tobacco: Never Alcohol Use Standard Drinks/Week Comments Not Currently 0 (1 standard drink = 0.6 oz pur e alcohol) Seldom PHQ-2 Answer Date Recorded PHQ-2 Score 4 03/30/2023 [place] Depression Scale Answer Date Recorded [place] Depression Score 13 03/10/2021 Last EPDS Self [...] suspected to have Coronavirus/COVID-19? No / Unsure 03/30/2023 11:47 AM CDT documented as of this encounter Plan of Treatment Not on file documented as of this encounter Visit Diagnoses Diagnosis Abnormal maternal glucose tolerance, antepartum- Primary documented in this encounter Additional Health Concerns Assessment Noted Time PHQ-9 Depression Total Score: 21 023 12:25 PM CDT documented as of this encounter Care Teams Anesthesiologist/Physician Relationship Specialty Start Date End Date Abbey Bagley PA-C [employer] [address] [address] PCP - General Physician Jumpbasting Machine Operator 08/15/20 Abbey Bagley PA-C [employer] [address] [address] Physician Jumpbasting Machine Operator 04/11/20 05/02/23 Ino Robbins MD [address] [place] [address] Assigned OBGYN Provider 01/01/23 documented as of this encounter
--- OUTSIDE RECORDS SUMMARY | 2023-10-20 07:13 | XMS_ITS | Encounter Summary ---
Author Name Unknown Organization [place] Address [address] [facility] [place] [address] Care Team Providers Care Car Rental Agent Name Role Phone Abbey Bagley PA-C Unavailable [phone] Abbey Bagley PA-C Primary Care Provider + [phone] Ino Robbins MD Unavailable [phone] Reason for Visit * Reason Comments Medication Refill Encounter Details Date Type Department Care Team (Late st Contact Info) Description 02/10/2023 Refill [facility] [address] [place] [address] Ino Robbins MD [address] [place], [place] [address] Medication Refill Social History Tobacco Use Types Packs/Day Years Used Date Smoking Tobacco: Some Days Cigarettes 0.3 Smokeless Tobacco: Never Alcohol Use Standard Drinks/Week Comments Not Currently 0 (1 standard drink = 0.6 oz pur e alcohol) Seldom PHQ-2 Answer Date Recorded PHQ-2 Score 2 11/26/2022 [place] Depression Scale Answer Date Recorded [place] Depression Score 13 03/10/2021 Last EPDS Self [...] AM CDT documented as of this encounter Miscellaneous Notes * Telephone Encounter - Tierra Soliman RN - 02/10/2023 10:55 AM CDT Prescription approved per [facility] Refill Protocol. Last OV: 01/19/23 which provider wrote order. LUCÍA Mayorga documented in this encounter Plan of Treatment Not on file documented as of this encounter Visit Diagnoses Diagnosis HSV (herpes simplex virus) infection Herpes simplex without mention of complication documented in this encounter Additional Health Concerns Assessment Noted Time PHQ-9 Depression Total Score: 19 021 3:52 PM CDT documented as of this encounter Care Teams Car Rental Agent Relationship Specialty Start Date End Date Abbey Bagley PA-C [employer] [address] [address] PCP - General Physician Stars Specialist 08/15/20 Abbey Bagley PA-C [employer] [address] [place] [address] Physician Stars Specialist 04/11/20 05/02/23 Ino Robbins MD [address] [place], [place] [address] Assigned OBGYN Provider 01/01/23 documented as of this encounter
--- OUTSIDE RECORDS SUMMARY | 2023-10-20 07:13 | XMS_ITS | Encounter Summary ---
Author Name Unknown Organization [place] Address [address] [facility] [place] [address] Care Team Providers Care Lumber Tying Machine Operator Name Role Phone Abbey Bagley PA-C Unavailable [phone] Abbey Bagley PA-C Primary Care Provider + [phone] Ino Robbins MD Unavailable [phone] Reason for Visit * Reason Comments Ultrasound L2-LVOT not well see n on outside scan Encounter Details Date Type Department Care Team (Late st Contact Info) Description 01/25/2023 10:45 AM CDT Office Visit [facility] [place] [address] [facility] [address] [place] [address] Ino Robbins MD [address] [place], [place] [address] Camden Flores MD [address] [place] [address] Suspected anomaly, antepartum, single or unspecified fetus (Primary Dx); Encounter for follow-up ultrasound of anatomy Social History Tobacco Use Types Packs/Day Years Used Date Smoking Tobacco: Some Days Cigarettes 0.3 Smokeless Tobacco: Never Alcohol Use Standard Drinks/Week Comments Not Currently 0 (1 standard drink = 0.6 oz pur e alcohol) Seldom PHQ-2 Answer Date Recorded PHQ-2 Score 2 11/26/2022 [place] Depression Scale Answer Date Recorded [place] Depression Score 13 03/10/2021 Last EPDS Self [...] AM CDT documented as of this encounter Progress Notes * Camden Flores MD - 01/25/2023 10:45 AM CDT Please see Imaging tab under Chart Review for details of today's US at the [facility]. Camden Flores MD Maternal- Medicine documented in this encounter Plan of Treatment Not on file documented as of this encounter Visit Diagnoses Diagnosis Suspected anomaly, antepartum, single or unspecified fetus- Primary Encounter for follow-up ultrasound of anatomy documented in this encounter Additional Health Concerns Assessment Noted Time PHQ-9 Depression Total Score: 19 021 3:52 PM CDT documented as of this encounter Care Teams Lumber Tying Machine Operator Relationship Specialty Start Date End Date Abbey Bagley PA-C [employer] [place] [address] [address] PCP - General Physician Gasket Notcher 08/15/20 Abbey Bagley PA-C [employer] [place] [address] [place] [address] Physician Gasket Notcher 04/11/20 05/02/23 Ino Robbins MD [address] [place] [address] Assigned OBGYN Provider 01/01/23 documented as of this encounter
--- OUTSIDE RECORDS SUMMARY | 2023-10-20 07:13 | XMS_ITS | Encounter Summary ---
Author Name Unknown Organization [place] Address [address] [facility] [place] [address] Care Team Providers Care Maintenance Supervisor Electrical Name Role Phone Abbey Bagley PA-C Unavailable [phone] Abbey Bagley PA-C Primary Care Provider + [phone] Ino Robbins MD Unavailable [phone] Reason for Visit * Reason Comments Care Encounter Details Date Type Department Care Team (Late st Contact Info) Description 03/30/2023 11:45 AM CDT Office Visit [facility] [address] [place] [phone] Ino Robbins MD [address] [place], [place] [id number] care in third trimester (Primary Dx); HSV (herpes simplex virus) infection Social History Tobacco Use Types Packs/Day Years Used Date Smoking Tobacco: Some Days Cigarettes 0.3 Smokeless Tobacco: Never Tobacco Cessation:Ready to Q uit: Not Asked; Counseling Given: Not Answered Alcohol Use Standard Drinks/Week Comments Not Currently 0 (1 standard drink = 0.6 oz pur e alcohol) Seldom PHQ-2 Answer Date Recorded PHQ-2 Score 4 03/30/2023 [place] Depression Scale Answer Date Recorded [place] Depression Score 13 03/10/2021 Last EPDS Self [...] Sign Reading Time Taken Comments Blood Pressure 118/72 03/30/2023 11:55 AM CDT Pulse - - Temperature - - Respiratory Rate - - Oxygen Saturation - - Inhaled Oxygen Concentration - - Weight 97.1 kg (214 lb) 03/30/2023 11:55 AM CDT Height - - Body Mass Index 33.52 11/04/2022 3:15 PM DIRECTOR OF TEENAGE ACTIVITIES documented in this encounter Progress Notes * Ino Robbins MD - 03/30/2023 11:45 AM CDT 22yo at 34w5d. Care has been intermittent due primarily to familial chaos. Moved to [place] and living arrangements were not as advertised. Now living locally. Needs to have meds refilled as were lost. Advised to begin Valtrex suppression. Some nausea and unusual cravings. Checking GCT and CBC today. TDap today. RTC 2 weeks documented in this encounter Plan of Treatment Not on file documented as of this encounter Procedures Procedure Name Priority Date/Time Associated Diagnosis Comments TREPONEMA ABS W REFLEX TO RPR AND TITER Routine 03/30/2023 12:53 PM CDT care in third trimester HSV (herpes simplex virus) infection GLUCOSE TOLERANCE GEST SCREEN 1 HOUR Routine 03/30/2023 12:53 PM CDT care in third trimester HSV (herpes simplex virus) infection CBC WITH PLATELETS Routine 03/30/2023 12 :53 PM CDT care in third trimester HSV (herpes simplex virus) infection documented in this encounter Results * (ABNORMAL) Glucose tolerance, gest screen, 1 hour (03/30/2023 12:53 PM CDT) Glu Gest Screen 1hr 50g 133(H) 70 - 129 mg/dL 03/30/2023 12:58 PM CDT [facility] Blood BLOOD SPECIMEN / Unknown Venipuncture / Unknown 03/30/2023 12:53 PM CDT 03/30/2023 12:53 PM CDT Narrative [facility] - 03/30/2023 12:58 PM CDT This is a screening test for Gestational Diabetes Mellitus. If results are 130 mg/dL or greater, a Standard 100 gram Gestational ??3 hour Glucose Tolerance should be performed. Ino Robbins MD LAB - BLOOD OR DERABLES [facility] [address] [facility], [address] [place] [address], [facility] [phone] * Treponema Abs w Reflex to RPR and Titer (03/30/2023 12:53 PM CDT) Treponema Antibody Total Nonreactive Nonreactive 03/31/2023 9:50 AM CDT SPECIALTY CORE/PROT/EN DO Blood BLOOD SPECIMEN / Unknown Venipuncture / Unknown 03/30/2023 12:53 PM CDT 03/30/2023 12:53 PM CDT Ino Robbins MD LAB - BLOOD OR DERABLES [facility]/PROT/ENDO Specialty Core/Prot/Endo [address] [facility], [address] [place] [address], [facility] [phone] * (ABNORMAL) CBC with platelets (03/30/2023 12:53 PM CDT) WBC Count 10.5 4.0 - 11.0 10e3/uL 03/30/2023 1:13 PM CDT [facility] RBC Count 4.31 3.80 - 5.20 10e6/uL 03/30/2023 1:13 PM CDT [facility] Hemoglobin 9.8(L) 11.7 - 15.7 g/dL 03/30/2023 1:13 PM CDT [facility] Hematocrit 31.6(L) 35.0 - 47.0 % 03/30/2023 1:13 PM CDT [facility] MCV 73(L) 78 - 100 fL 03/30/2023 1:13 PM CDT [facility] MCH 22.7(L) 26.5 - 33.0 pg 03/30/2023 1:13 PM CDT [facility] MCHC 31.0(L) 31.5 - 36.5 g/dL 03/30/2023 1:13 PM CDT [facility] RDW 14.2 10.0 - 15.0 % 03/30/2023 1:13 PM CDT [facility] Platelet Count 263 150 - 450 10e3/uL 03/30/2023 1:13 PM CDT [facility] Blood BLOOD SPECIMEN / Unknown Venipuncture / Unknown 03/30/2023 12:53 PM CDT 03/30/2023 12:53 PM CDT Ino Robbins MD LAB - BLOOD OR DERABLES [facility] [address], [address] [place] [address], [facility] [phone] documented in this encounter Visit Diagnoses Diagnosis care in third trimester- Primary HSV (herpes simplex virus) infection Herpes simplex without mention of complication documented in this encounter Additional Health Concerns Assessment Noted Time PHQ-9 Depression Total Score: 023 12:25 PM CDT documented as of this encounter Care Teams Maintenance Supervisor Electrical Relationship Specialty Start Date End Date Abbey Bagley PA-C [facility] [place] [address] [place] [address] PCP - General Physician Broaching Machine Repairer 08/15/20 Abbey Bagley PA-C [facility] [place] [address] [place] [address] Physician Broaching Machine Repairer 04/11/20 05/02/23 Ino Robbins MD [address] [place], [place] [address] Assigned OBGYN Provider 01/01/23 documented as of this encounter
--- OUTSIDE RECORDS SUMMARY | 2023-10-20 07:13 | XMS_ITS | Encounter Summary ---
Author Name Unknown Organization [place] Address [address] [place] [address] Care Team Providers Care Mother Tester Name Role Phone Abbey Bagley PA-C Unavailable [phone] Abbey Bagley PA-C Primary Care Provider + [phone] Pawel Guardado MD Unavailable + [phone] Reason for Referral * Diagnostic Imaging Ultrasound (Routine) - Pending Review Specialty Diagnoses / Procedures Referred By Bernardo t Referred To Contact Radiology. Diagnoses related condition, antepartum Procedures [facility] Pawel Forte MD [address] [place] [address] Referral ID Status Reason Start Date Expiration Date V isits Requested Visits Authorized [id number] Pending Review 01/19/2023 01/19/2024 1 1 Reason for Visit * Diagnostic Imaging Ultrasound (Routine) - Pending Review Specialty Diagnoses / Procedures Referred By Contac t Referred To Contact Radiology. Diagnoses related condition, antepartum Procedures [facility] Pawel Forte MD [address] [place] [address] Referral ID Status Reason Start Date Expiration Date V isits Requested Visits Authorized [id number] Pending Review 01/19/2023 01/19/2024 1 1 Encounter Details Date Type Department Care Team (Late st Contact Info) Description 01/25/2023 10:11 AM CDT - 01/25/2023 11:59 PM CDT Hospital Encounter [facility] [place] [address] [facility] [address] [place] [address] Pawel Guardado MD [address] [place] [address] Camden Flores MD [address] [place] [address] [address] [place] [address] related condition, antepartum Discharge Disposition: Home or Self Care Social History Tobacco Use Types Packs/Day Years Used Date Smoking Tobacco: Some Days Cigarettes 0.3 Smokeless Tobacco: Never Alcohol Use Standard Drinks/Week Comments Not Currently 0 (1 standard drink = 0.6 oz pur e alcohol) Seldom PHQ-2 Answer Date Recorded PHQ-2 Score 2 11/26/2022 [place] Depression Scale Answer Date Recorded [place] Depression Score 13 03/10/2021 Last EPDS Self [...] AM CDT documented as of this encounter Medications at Time of Discharge Medication Sig Dispensed Refills Start Date End Date albuterol (PROAIR HFA/PROVENTIL HFA/VENTOLIN HFA) 108 (90 Base) MCG/ACT inhaler Inhale 1 puff into the lungs 0 11/26/2019 sertraline (ZOLOFT) 50 MG tabletIndications:Dain belle mild episode of major depressive disorder, unspecified whether recurrent (H24) Take 1 tablet (50 mg) by mouth daily 30 tablet 3 01/19/2023 Docosahexaenoic Acid (DHA) 200 MG CAPSIndications: care in second trimester Take 1 each by mouth daily 60 capsule 3 11/26/2022 04/20/2023 Vit-Fe Fumarate-FA (PNV PLUS MULTIVITAMIN) 27-1 MG TABS per tablet Take 1 tablet by mouth daily 0 04/20/2023 valACYclovir (VALTREX) 1000 mg tablet Take 1,000 mg by mouth 0 05/04/2023 valACYclovir (VALTREX) 500 MG tabletIndications:HSV (herpes simplex virus) infection Take 1 tablet (500 mg) by mouth daily 30 tablet 1 01/19/2023 02/10/2023 documented as of this encounter Plan of Treatment Not on file documented as of this encounter Procedures Procedure Name Priority Date/Time Associated Diagnosis Comments [facility] COMPREHENSIVE SINGLE Routine 01/25/2023 11:28 AM CDT related condition, antepartum documented in this encounter Results * [facility] Comprehensive Single (01/25/2023 11:28 AM CDT) Anatomical Region Laterality Modality Ultrasound 01/25/2023 10:1 9 AM CDT Impressions 01/25/2023 11:14 AM CDT IMPRESSION ----- 1) Growth parameters and estimated weight were consistent with appropriate for gestational age pattern of growth. 2) The cardiac and facial anatomy were not adequately seen due to position. 3) anatomy appeared otherwise normal for gestational age. Narrative 01/25/2023 11:14 AM CDT Comprehensive ----- Pat. Name: MERRY JACK Study Date: 01/25/2023 10:19am Pat. NO: [id number] Referring ??MD: PAWEL GUARDADO Site: [facility] Third Helper: Arthur Herman RDMS : 2000 Age: 22 ----- INDICATION ----- LVOT not well seen on outside u/s. METHOD ----- Transabdominal ultrasound examination. View: Suboptimal view: limited by maternal body habitus. Suboptimal view: limited by position ----- Cartwright . Number of fetuses: 1 DATING ----- ? Date ?Details ?Gest. age ?LAINA LMP ?07/30/2022 ? 25 w + 4 d ? 05/06/2023 Prior assessment ? 11/04/2022 ? GA: 14 w + 1 d ?25 w + 6 d ? 05/04/2023 U/S ? 01/25/2023 ? based upon AC, BPD, Femur, HC ?26 w + 0 d ? 05/03/2023 Assigned dating ?Dating performed on 01/25/2023, based on the LMP ?25 w + 4 d ? 05/06/2023 GENERAL EVALUATION ----- Cardiac activity present. FHR 142 bpm. movements present. Presentation cephalic. Placenta Anterior, No Previa, > 2 cm from internal os. Umbilical cord 3 vessel cord. Amniotic fluid Amount of AF: normal. MVP 4.0 cm. BIOMETRY ----- Main Biometry: BPD ?66.7 ?mm ? 26w 6d ?Lawanda LOVE ?81.8 ?mm ? 24w 5d ?Nicolaides HC ?236.4 ?mm ?25w 5d ?Hadlock Cerebellum tr ?29.2 ? mm ?26w 1d ?Nicolaides AC ?203.5 ?mm ?25w 0d ?23% ?Hadlock Femur ?48.3 ? mm ?26w 1d ?Hadlock Humerus ?42.5 ?mm ? 25w 4d ?Honey Weight Calculation: EFW ? 827 ? g ? 39% ?Hadlock EFW (lb,oz) ? 1 lb 13 ? oz EFW by ?Hadlock ([id number]) Head / Face / Neck Biometry: Model And Pattern Supervisor ? 7.7 ? mm CM ?6.9 ? mm ANATOMY ----- The following structures appear normal: Head / Neck ? Cranium. Head size. Head shape. Lateral ventricles. Choroid plexus. Midline falx. Cavum septi pellucidi. Cerebellum. Cisterna magna. ? Parenchyma. Thalami. Vermis. ? Neck. Face ? Lips. Heart / Thorax ?RVOT view. LVOT view. Situs. Aortic arch view. Bicaval view. Superior vena cava. Inferior vena cava. 3-vessel view. 9-gspbkp-lyenbfo view. ? Cardiac position. Cardiac size. Cardiac rhythm. ? Diaphragm. Abdomen ? Abdominal wall. Cord insertion. Stomach. Kidneys. Bladder. Liver. Bowel. Genitals. Spine ?Cervical spine. Thoracic spine. Lumbar spine. Sacral spine. Extremities / Skeleton ?Right arm. Right hand. Left arm. Left hand. Right leg. Right foot. Left leg. Left foot. The following structures could not be adequately visualized: Face ? Profile. Nose. Maxilla. Mandible. Orbits. Lens. Heart / Thorax ?4-chamber view: Suboptimal Apical view. ? Right lung. Left lung. The following structures could not be visualized: Heart / Thorax ?Ductal arch view. Gender: female. MATERNAL STRUCTURES ----- Cervix ?Visualized ? Appearance: Appears Closed ? Approach - Transabdominal: Cervical length 32.7 mm Right Ovary ?Visualized Left Ovary ?Visualized RECOMMENDATION ----- We discussed the findings on today's ultrasound with the patient. A repeat ultrasound has been scheduled in 4 weeks to reevaluate the anatomy. Return to primary provider for continued care. Thank-you for the opportunity to participate in the care of this patient. If you have questions regarding today's evaluation or if we can be of further service, please contact the [facility]. anomalies may be present but not detected Procedure Note Camden Flores MD - 01/25/2023 Comprehensive ----- Pat. Name:Loki JACK Date:01/25/2023 10:19am Pat. NO: [id number] MD:PAWEL GUARDADO Site:Ulisesonographer:Arthur Herman RDMS :2000Age:22 ----- INDICATION ----- LVOT not well seen on outside u/s. METHOD ----- Transabdominal ultrasound examination. View: Suboptimal view: limited bymaternal body habitus. Suboptimal view: limited by position ----- Cartwright . Number of fetuses: 1 DATING ----- DateDetailsGest. age LAINA LMP w + 4 d 05/06/2023 Prior assessment 11/04/2022 GA: 14 w+ 1 d25 w + 6 d 05/04/2023 U/S 01/25/2023ased upon AC, BPD, Femur, HC26 w + 0 d 05/03/2023 Assigned dating Dating performed on 01/25/2023, based onthe LMP 25 w +4 d 05/06/2023 GENERAL EVALUATION ----- Cardiac activity present. FHR 142 bpm. movements present. Presentation cephalic. Placenta Anterior, No Previa, > 2 cm from internal os. Umbilical cord 3 vessel cord. Amniotic fluid Amount of AF: normal. MVP 4.0 cm. BIOMETRY ----- Main Biometry: BPD 66.7 mm26w 6d Hadlock OFD 81.8 mm24w 5d Nicolaides HC 236.4 mm25w 5d Hadlock Cerebellum tr 29.2 mm26w 1d Nicolaides AC 203.5 mm25w 0d 23% Hadlock Femur 48.3 mm26w 1d Hadlock Humerus 42.5 mm25w 4d Honey Weight Calculation: EFW 827 g39% Hadlock EFW (lb,oz) 1 lb 13 oz EFW by Hadlock ([id number]) Head / Face / Neck Biometry: Model And Pattern Supervisor 7.7 mm CM 6.9 mm ANATOMY ----- The following structures appear normal: Head / Neck Cranium. Head size. Head shape.Lateral ventricles. Choroid plexus. Midline falx. Cavum septi pellucidi.Cerebellum. Cisterna magna. Parenchyma. Thalami. Vermis. Neck. Face Lips. Heart / Thorax RVOT view. LVOT view. Situs. Aorticarch view. Bicaval view. Superior vena cava. Inferior vena cava. 3-vesselview. 0-scfdlj-gnhhzdo view. Cardiac position. Cardiac size.Cardiac rhythm. Diaphragm. Abdomen Abdominal wall. Cord insertion.Stomach. Kidneys. Bladder. Liver. Bowel. Genitals. Spine Cervical spine. Thoracic spine.Lumbar spine. Sacral spine. Extremities / Skeleton Right arm. Right hand. Left arm. Lefthand. Right leg. Right foot. Left leg. Left foot. The following structures could not be adequately visualized: Face Profile. Nose. Maxilla. Mandible.Orbits. Lens. Heart / Thorax 4-chamber view: Suboptimal Apicalview. Right lung. Left lung. The following structures could not be visualized: Heart / Thorax Ductal arch view. Gender: female. MATERNAL STRUCTURES ----- Cervix Visualized Appearance: Appears Closed Approach - Transabdominal:Cervical length 32.7 mm Right Ovary Visualized Left Ovary Visualized RECOMMENDATION ----- We discussed the findings on today's ultrasound with the patient. A repeat ultrasound has been scheduled in 4 weeks to reevaluate the fetalanatomy. Return to primary provider for continued care. Thank-you for the opportunity to participate in the care of this patient.If you have questions regarding today's evaluation or if we can be offurther service, please contact the [facility]. anomalies may be present but not detected IMPRESSION ----- 1) Growth parameters and estimated weight were consistent withappropriate for gestational age pattern of growth. 2) The cardiac and facial anatomy were not adequately seen due to fetalposition. 3) anatomy appeared otherwise normal for gestational age. Pawel Guardado MD [facility] ORD ERABLES documented in this encounter Visit Diagnoses Diagnosis related condition, antepartum documented in this encounter Additional Health Concerns Assessment Noted Time PHQ-9 Depression Total Score: 19 021 3:52 PM CDT documented as of this encounter Care Teams Mother Tester Relationship Specialty Start Date End Date Abbey Bagley PA-C [facility].AGE [address] [address] [place] [address] PCP - General Physician Machine I Coremaker 08/15/20 Abbey Bagley PA-C [facility] [address] [address] Physician Machine I Coremaker 04/11/20 05/02/23 Pawel Guardado MD [address] [place], [place] [id number] Assigned OBGYN Provider 01/01/23 documented as of this encounter
--- OUTSIDE RECORDS SUMMARY | 2023-10-20 07:13 | XMS_ITS | Encounter Summary ---
Author Name Unknown Organization [place] Address [address] [facility] [place] [address] Care Team Providers Care Rug Cutter Name Role Phone Abbey Bagley PA-C Unavailable [phone] Abbey Bagley PA-C Primary Care Provider + [phone] Ino Robbins MD Unavailable + [phone] Encounter Details Date Type Department Care Team (Late st Contact Info) Description 04/01/2023 8:30 AM CDT [facility] [address] [facility] [address] [place] [phone] Abnormal maternal glucose tolerance, antepartum Social History Tobacco Use Types Packs/Day Years Used Date Smoking Tobacco: Some Days Cigarettes 0.3 Smokeless Tobacco: Never Alcohol Use Standard Drinks/Week Comments Not Currently 0 (1 standard drink = 0.6 oz pur e alcohol) Seldom PHQ-2 Answer Date Recorded PHQ-2 Score 4 03/30/2023 [place] Depression Scale Answer Date Recorded [place] Depression Score 13 03/10/2021 Last EPDS Self [...] Procedure Name Priority Date/Time Associated Diagnosis Comments GESTATIONAL GLUCOSE TOLERANCE TESTING, 3 HOUR Routine 04/01/2023 11:35 AM CDT Abnormal maternal glucose tolerance, antepartum GESTATIONAL GLUCOSE TOLERANCE TESTING, 2 HOUR Routine 04/01/2023 10:38 AM CDT Abnormal maternal glucose tolerance, antepartum GESTATIONAL GLUCOSE TOLERANCE TESTING, 1 HOUR Routine 04/01/2023 9:37 AM CDT Abnormal maternal glucose tolerance, antepartum GESTATIONAL GLUCOSE TOLERANCE TESTING, FASTING Routine 04/01/2023 8:31 AM CDT Abnormal maternal glucose tolerance, antepartum GESTATIONAL GLUCOSE TOLERANCE TESTING, 3 HOUR Routine 04/01/2023 8:31 AM CDT Abnormal maternal glucose tolerance, antepartum documented in this encounter Results * Gestational Glucose Tolerance Testing, 3 Hour (04/01/2023 11:35 AM CDT) Gestational GTT 3 Hr Post Dose 129 60 - 139 mg/dL 04/02/2023 12:55 AM CDT [facility] Blood BLOOD SPECIMEN / Unknown Venipuncture / Unknown 04/01/2023 11:35 AM CDT 04/01/2023 11:35 AM CDT Narrative [facility] - 04/02/2023 12:55 AM CDT Blood glucose levels collected at fasting, 1 hour, 2 hours and 3 hours after ingestion of 100g glucose during . The diagnosis of gestational diabetes mellitus is made when 2 or more of the glucose values listed below are met or exceeded: Fasting ? 95 mg/dL 1 hour ?180 mg/dL 2 hour ?155 mg/dL 3 hour ?140 mg/dL Ino Robbins MD LAB - BLOOD OR DERABLES Performing Organization Address [facility]/ZIP Co de Phone Number [facility] [address] [facility], [address] [place] [address], [facility] [phone] * Gestational Glucose Tolerance Testing, 2 Hour (04/01/2023 10:38 AM CDT) Gestational GTT 2 Hr Post Dose 117 60 - 154 mg/dL 04/02/2023 12:23 AM CDT [facility] Blood BLOOD SPECIMEN / Unknown Venipuncture / Unknown 04/01/2023 10:38 AM CDT 04/01/2023 10:38 AM CDT Ino Robbins MD LAB - BLOOD OR DERABLES Performing Organization Address [facility] Co de Phone Number LABORATORY [facility] [address] [facility], [address] [place] [address], [facility] [phone] * Gestational Glucose Tolerance Testing, 1 Hour (04/01/2023 9:37 AM CDT) Gestational GTT 1 Hr Post Dose 151 60 - 179 mg/dL 04/02/2023 12:16 AM CDT [facility] Blood BLOOD SPECIMEN / Unknown Venipuncture / Unknown 04/01/2023 9:37 AM CDT 04/01/2023 9:37 AM CDT Ino Robbins MD LAB - BLOOD OR DERABLES LABORATORY [facility] [address] [facility], [address] [place] [address], [facility] [phone] * Gestational Glucose Tolerance Testing, Fasting (04/01/2023 8:31 AM CDT) Gestational GTT Fasting 89 60 - 94 mg/dL 04/01/2023 7:17 PM CDT [facility] Blood BLOOD SPECIMEN / Unknown Venipuncture / Unknown 04/01/2023 8:31 AM CDT 04/01/2023 8:35 AM CDT Ino Robbins MD LAB - BLOOD OR DERABLES [facility] [address] [facility], [address] [place] [address], [facility] [phone] documented in this encounter Visit Diagnoses Diagnosis Abnormal maternal glucose tolerance, antepartum documented in this encounter Additional Health Concerns Assessment Noted Time PHQ-9 Depression Total Score: 023 12:25 PM CDT documented as of this encounter Care Teams Rug Cutter Relationship Specialty Start Date End Date Abbey Bagley PA-C [employer] [address] [facility] [address] [place] [address] PCP - General Physician Client Consultant 08/15/20 Abbey Bagley PA-C [employer] [address] [facility] [address] [place] [address] Physician Client Consultant 04/11/20 05/02/23 Ino Robbins MD [address] [place] [address] Assigned OBGYN Provider 01/01/23 documented as of this encounter
--- OUTSIDE RECORDS SUMMARY | 2023-10-20 07:13 | XMS_ITS | Encounter Summary ---
Author Name Unknown Organization [facility] Address [address] [place] [address] Care Team Providers Care Robotic Toy Inventor Name Role Phone Abbey Bagley PA-C Unavailable [phone] Abbey Bagley PA-C Primary Care Provider + [phone] Kelley Diane DO Unavailable [phone] Encounter Details Date Type Department Care Team (Latest Contact Info) Description 12/30/2022 Travel Social History Tobacco Use Types Packs/Day Years Used Date Smoking Tobacco: Some Days Cigarettes 0.3 Smokeless Tobacco: Never Alcohol Use Standard Drinks/Week Comments Not Currently 0 (1 standard drink = 0.6 oz pur e alcohol) Seldom PHQ-2 Answer Date Recorded PHQ-2 Score 2 11/26/2022 [place] Depression Scale Answer Date Recorded [place] Depression Score 13 03/10/2021 Last EPDS Self [...] documented as of this encounter Care Teams Robotic Toy Inventor Relationship Specialty Start Date End Date Abbey Bagley PA-C [employer] [address] [place] [address] PCP - General Physician Cut Tobacco Bulker 08/15/20 Abbey Bagley PA-C [facility] [place] [address] [place] [address] Physician Cut Tobacco Bulker 04/11/20 05/02/23 [place] [address] [place] [address] Assigned OBGYN Provider 12/04/22 documented as of this encounter
--- OUTSIDE RECORDS SUMMARY | 2023-10-20 07:13 | XMS_ITS | Encounter Summary ---
Author Name Unknown Organization [place] Address [facility] [place] [address] Care Team Providers Care Dormitory Maid Name Role Phone Abbey Bagley PA-C Unavailable [phone] Abbey Bagley PA-C Primary Care Provider + [phone] Ino Robbins MD Unavailable [phone] Reason for Referral * Consultation (Routine) - Pending Review Specialty Diagnoses / Procedures Referred By Bernardo belle Referred To Contact Diagnoses care in second trimester Ino Robbins MD [address] [place] [address] [facility]aternal [facility] [address] [place] [address] Referral ID Status Reason Start Date Expiration Date V isits Requested Visits Authorized [id number] Pending Review 01/19/2023 01/19/2024 1 1 Question Answer Preferred Location: [facility] [place] 05/06/2023 Ultrasound Comprehensive US (>than 18 weeks GA) US PROC NONE MF Issue Abnormal Ultrasound Findings (enter details in Comments) - LVOT not well seen Genetic Counseling Consultation: No fax x Comments >> Patient may proceed with recommendations for further testing as directed by the Maternal Medicine Specialist >> >> If requesting Echo: MFM will determine appropriate location for exam due to indication. >> If requesting Lung Maturity Amnio: If results indicate lung maturity, induction or C/S is recommended within 36 hours. Please schedule accordingly. Dear Patient: Please be aware that coverage of these services is subject to the terms and limitations of your health insurance plan. Call member services at your health plan with any benefit or coverage questions. Please bring the following to your appointment: >> Any x-rays, CTs or MRIs which have been performed. Contact the facility where they were done to arrange for fruit picker prior to your scheduled appointment. Any new CT, MRI or other procedures ordered by your specialist must be performed at a [facility] or coordinated by your clinic's referral office. >> List of current medications >> This referral request >> Any documents/labs given to you for this referral Reason for Visit * Reason Comments Care Encounter Details Date Type Department Care Team (Late st Contact Info) Description 01/19/2023 1:30 PM CDT Office Visit [facility] Women's [address] [place] [phone] Ino Robbins MD [address] [place] [address] HSV (herpes simplex virus) infection (Primary Dx); Current mild episode of major depressive disorder, unspecified whether recurrent (H); care in second trimester Social History Tobacco Use Types Packs/Day Years Used Date Smoking Tobacco: Some Days Cigarettes 0.3 Smokeless Tobacco: Never Tobacco Cessation:Ready to Q uit: Not Asked; Counseling Given: Not Answered Alcohol Use Standard Drinks/Week Comments Not Currently 0 (1 standard drink = 0.6 oz pur e alcohol) Seldom PHQ-2 Answer Date Recorded PHQ-2 Score 2 11/26/2022 [place] Depression Scale Answer Date Recorded [place] Depression Score 13 03/10/2021 Last EPDS Self [...] Sign Reading Time Taken Comments Blood Pressure 114/74 01/19/2023 1:31 PM CDT Pulse - - Temperature - - Respiratory Rate - - Oxygen Saturation - - Inhaled Oxygen Concentration - - Weight 93.7 kg (206 lb 9.6 oz) 01/19/2023 1:31 P M CDT Height - - Body Mass Index 32.36 11/04/2022 3:15 PM MANAGER READING documented in this encounter Progress Notes * Ino Robbins MD - 01/19/2023 1:30 PM CDT 22yo at 24w5d. Was planning to relocate to [place] but found housing conditions filthy. Ants,mold, etc. Has had diarrhea off and on. Concerned about an intestinal parasite. Will check stool culture and O&P. Needs follow up U/S to visualize LVOT not yet well seen. MFM referral placed. Unsure if she plans to remain in [place] for delivery. RTC 4 weeks with GCT documented in this encounter Nursing Notes * Shelly Pedraza CMA - 01/19/2023 1:30 PM CDT Chief Complaint Patient presents with ??? Care 24w5d Moving back from [place] initial BP 114/74 Wt 93.7 kg (206 lb 9.6 oz) LMP 07/30/2022 (Exact Date) BMI 32.36 kg/m?? Estimated body mass index is 32.36 kg/m?? as calculated from the following: Height as of 11/04/22: 1.702 m (5' 7). Weight as of this encounter: 93.7 kg (206 lb 9.6 oz). BP completed using cuff size regular. Shelly Pedraza CMA documented in this encounter Plan of Treatment Scheduled Referrals Name Type Priority Associated Diagnoses Orde r Schedule Mat Med Ctr Referral - Referral Routine care in second trimester Ordered: 01/19/2023 documented as of this encounter Procedures Procedure Name Priority Date/Time Associated Diagnosis Comments ENTERIC BACTERIA AND VIRUS PANEL BY PCR Routine 01/19/2023 2:50 PM CDT care in second trimester ROUTINE PARASITOLOGY EXAM Routine 01/19/2023 2:50 PM CDT care in second trimester WET PREPARATION Routine 01/19/2023 2:00 PM CDT care in second trimester documented in this encounter Results * Enteric Bacteria and Virus Panel by KANG Stool (01/19/2023 2:50 PM CDT) Campylobacter group Not Detected Not Detected 01/20/2023 12:39 AM CDT [facility] Salmonella species Not Detected Not Detected 01/20/2023 12:39 AM CDT [facility] Shigella species Not Detected Not Detected 01/20/2023 12:39 AM CDT [facility] Vibrio group Not Detected Not Detected 01/20/2023 12:39 AM CDT [facility] Rotavirus Not Detected Not Detected 01/20/2023 12:39 AM CDT [facility] Shiga toxin 1 gene Not Detected Not Detected 01/20/2023 12:39 AM CDT [facility] Shiga toxin 2 gene Not Detected Not Detected 01/20/2023 12:39 AM CDT [facility] Norovirus I and II Not Detected Not Detected 01/20/2023 12:39 AM CDT [facility] Yersinia enterocolitica Not Detected Not Detected 01/20/2023 12:39 AM CDT [facility] Stool RECTAL CONTENTS / Unknown Non-blood Collection / Unknown 01/19/2023 2:50 PM CDT 01/19/2023 3:33 PM CDT Narrative [facility] - 01/20/2023 12:39 AM CDT Testing performed by multiplexed, qualitative PCR using the [employer] Enteric Pathogens Nucleic Acid Test. Results should not be used as the sole basis for diagnosis, treatment or other patient management decisions. Positive results do not rule out co-infection with other organisms that are not detected by this test and may not be the sole or definitive cause of patient illness. Negative results in the setting of clinical illness compatible with gastroenteritis may be due to infection by pathogens that are not detected by this test or non-infectious causes such as ulcerative colitis, irritable bowel syndrome or Crohn's disease. Note: Shiga toxin producing E. coli (STEC) typically harbor one or both genes that encode for Shiga toxins 1 and 2. Ino Robbins MD LAB - MICRO Teamo.ru ORDERABLES Performing Organization Address City/[facility]/ZIP Co de Phone Number [facility] Inf. Diseases Diag. Lab [address] [facility], [address] [address], [facility] [phone] * Ova and Parasite Exam Routine (01/19/2023 2:50 PM CDT) [facility] OVA AND PARASITE EXAM Negative Negative [facility] 01/20/2023 2:49 PM CDT [facility] Comment:A single negative sp ecimen does not rule out parasitic infection. Stool RECTAL CONTENTS / Unknown Non-blood Collection / Unknown 01/19/2023 2:50 PM CDT 01/19/2023 3:33 PM CDT Narrative [facility] - 01/20/2023 2:49 PM CDT Cryptosporidium, Cyclospora and Microsporidia are not readily detected by this method. Ino Robbins MD LAB - MICRO IntentAL ORDERABLES [facility] Inf. Diseases Diag. Lab [address] [facility], [address] [address] [phone] * (ABNORMAL) Wet prep - Clinic Collect (01/19/2023 2:00 PM CDT) Trichomonas Absent Absent [facility] 01/19/2023 3:04 PM CDT [facility] Yeast Absent Absent [facility] 01/19/2023 3:04 PM CDT [facility] Clue Cells Absent Absent [facility] 01/19/2023 3:04 PM CDT [facility] WBCs/high power field 1+(A) None [facility] 01/19/2023 3:04 PM CDT [facility] Swab VAGINAL STRUCTURE / Unknown Non-blood Collection / Unknown 01/19/2023 2:00 PM CDT 01/19/2023 2:02 PM CDT Ino Robbins MD LAB - MICRO GE NERAL ORDERABLES [facility] [address] [place] [address] [phone] documented in this encounter Visit Diagnoses Diagnosis HSV (herpes simplex virus) infection- Primary Herpes simplex without mention of complication Current mild episode of major depressive disorder, unspecified whether recurrent (H24) care in second trimester documented in this encounter Additional Health Concerns Assessment Noted Time PHQ-9 Depression Total Score: 19 08/2 021 3:52 PM CDT documented as of this encounter Care Teams Dormitory Maid Relationship Specialty Start Date End Date Abbey Bagley PA-C [employer] [address] [address] PCP - General Physician Elevator Supervisor 08/15/20 Abbey Bagley PA-C [employer] [address] [address] Physician Elevator Supervisor 04/11/20 05/02/23 Ino Robbins MD [address] [address] Assigned OBGYN Provider 01/01/23 documented as of this encounter
--- OUTSIDE RECORDS SUMMARY | 2023-10-20 07:13 | XMS_ITS | Encounter Summary ---
Author Name Unknown Organization [place] Address [address] [facility] [address] Care Team Providers Care Sizer Hand Name Role Phone Abbey Bagley PA-C Unavailable [phone] Abbey Bagley PA-C Primary Care Provider + [phone] Ino Robbins MD Unavailable [phone] Reason for Visit * Reason Comments Med Change Request Encounter Details Date Type Department Care Team (Late st Contact Info) Description 03/01/2023 [facility] [address] [place] [address] Ino Robbins MD [address], [place] [address] Med Change Request Social History Tobacco Use Types Packs/Day Years Used Date Smoking Tobacco: Some Days Cigarettes 0.3 Smokeless Tobacco: Never Alcohol Use Standard Drinks/Week Comments Not Currently 0 (1 standard drink = 0.6 oz pur e alcohol) Seldom PHQ-2 Answer Date Recorded PHQ-2 Score 2 11/26/2022 [place] Depression Scale Answer Date Recorded [place] Depression Score 13 03/10/2021 Last EPDS Self [...] Orientation Bisexual 07/13/2020 10 :08 AM CDT documented as of this encounter Miscellaneous Notes * Telephone Encounter - Diana Rainey RN - 03/01/2023 12:31 PM CDT Prescription approved per [facility] Refill Protocol. Diana Rodrigues RN documented in this encounter Plan of Treatment Not on file documented as of this encounter Visit Diagnoses Diagnosis HSV (herpes simplex virus) infection Herpes simplex without mention of complication documented in this encounter Additional Health Concerns Assessment Noted Time PHQ-9 Depression Total Score: 19 021 3:52 PM CDT documented as of this encounter Care Teams Sizer Hand Relationship Specialty Start Date End Date Abbey Bagley PA-C [employer] [address] [address] PCP - General Physician Boom Worker 08/15/20 Abbey Bagley PA-C [employer] [place] [address] [address] Physician Boom Worker 04/11/20 05/02/23 Ino Robbins MD [address] [place], [place] [address] Assigned OBGYN Provider 01/01/23 documented as of this encounter
--- OUTSIDE RECORDS SUMMARY | 2023-10-20 07:13 | XMS_ITS | Encounter Summary ---
Author Name Unknown Organization [place] Address [facility] [place] [address] Care Team Providers Care Pcmh Specialist Name Role Phone Abbey Bagley PA-C Unavailable [phone] Abbey Bagley PA-C Primary Care Provider + [phone] Ino Robbins MD Unavailable + [phone] Encounter Details Date Type Department Care Team (Latest Contact Info) Description 03/30/2023 Travel Social History Tobacco Use Types Packs/Day Years Used Date Smoking Tobacco: Some Days Cigarettes 0.3 Smokeless Tobacco: Never Alcohol Use Standard Drinks/Week Comments Not Currently 0 (1 standard drink = 0.6 oz pur e alcohol) Seldom PHQ-2 Answer Date Recorded PHQ-2 Score 4 03/30/2023 [place] Depression Scale Answer Date Recorded [place] Depression Score 13 03/10/2021 Last EPDS Self [...] documented as of this encounter Care Teams Pcmh Specialist Relationship Specialty Start Date End Date Abbey Bagley PA-C [employer] [address] [facility] [address] [place] [address] PCP - General Physician Aircraft Time Clerk 08/15/20 Abbey Bagley PA-C [employer] [address] [facility] [address] [place] [address] Physician Aircraft Time Clerk 04/11/20 05/02/23 Ino Robbins MD [address] [place] [address] Assigned OBGYN Provider 01/01/23 documented as of this encounter
--- OUTSIDE RECORDS SUMMARY | 2023-10-20 07:13 | XMS_ITS | Encounter Summary ---
Author Name Unknown Organization [place] Address [address] [facility] [address] Care Team Providers Care Carbon Paper Coating Supervisor Name Role Phone Abbey Bagley PA-C Unavailable [phone] Abbey Bagley PA-C Primary Care Provider + [phone] Pawel Guardado MD Unavailable + [phone] Reason for Referral * Diagnostic Imaging Ultrasound (Routine) - Pending Review Specialty Diagnoses / Procedures Referred By Bernardo belle Referred To Contact Radiology. Diagnoses related condition, antepartum Procedures [facility] US Comprehensive Single Pawel Guardado MD [address] [place] [address] Referral ID Status Reason Start Date Expiration Date V isits Requested Visits Authorized [id number] Pending Review 01/19/2023 01/19/2024 1 1 Encounter Details Date Type Department Care Team (Late st Contact Info) Description 01/19/2023 Transcribe Orders [facility] [place] [address] [place] [address] Pawel Guardado MD [address] [place] [address] related condition, antepartum (Primary Dx) Social History Tobacco Use Types Packs/Day Years Used Date Smoking Tobacco: Some Days Cigarettes 0.3 Smokeless Tobacco: Never Alcohol Use Standard Drinks/Week Comments Not Currently 0 (1 standard drink = 0.6 oz pur e alcohol) Seldom PHQ-2 Answer Date Recorded PHQ-2 Score 2 11/26/2022 [place] Depression Scale Answer Date Recorded [place] Depression Score 13 03/10/2021 Last EPDS Self [...] on file documented as of this encounter Results * [facility] Comprehensive Single (01/25/2023 11:28 AM CDT) Anatomical [...] JACK Study Date: 01/25/2023 10:19am Pat. NO: [id number] Referring ??: PAWEL GUARDADO Site: [facility] Wellness Educator: Arthur Herman RDMS : 2000 Age: 22 [...] lb 13 ? oz EFW by ?Hadlock ([id number]) Head / Face / Neck Biometry: Senior Business Manager ? 7.7 ? mm CM ?6.9 ? [...] vena cava. Inferior vena cava. 3-vessel view. 2-bhnqwh-pttrjdq view. ? Cardiac position. Cardiac size. Cardiac [...] Pat. Name:Loki JACK Date:01/25/2023 10:19am Pat. NO: [id number] MD:PAWEL GUARDADO Site:[facility]grapher:Arthur Herman RDMS :2000Age:22 ----- INDICATION ----- LVOT [...] 1 lb 13 oz EFW by Hadlock ([id number]) Head / Face / Neck Biometry: Senior Business Manager 7.7 mm CM 6.9 mm ANATOMY ----- The following structures appear normal: Head / Neck Cranium. Head size. Head shape.Lateral ventricles. Choroid plexus. Midline falx. Cavum septi pellucidi.Cerebellum. Cisterna magna. Parenchyma. Thalami. Vermis. Neck. Face Lips. Heart / Thorax RVOT view. LVOT view. Situs. Aorticarch view. Bicaval view. Superior vena cava. Inferior vena cava. 3-vesselview. 3-ihqrwu-tparawd view. Cardiac position. Cardiac size.Cardiac rhythm. Diaphragm. [...] normal for gestational age. Pawel Guardado MD [facility] ORD [facility] documented in this encounter Visit Diagnoses Diagnosis related condition, antepartum- Primary related condition, antepartum documented in this encounter Additional Health Concerns Assessment Noted Time PHQ-9 Depression Total Score: 19 05/14/2 021 3:52 PM CDT documented as of this encounter Care Teams Carbon Paper Coating Supervisor Relationship Specialty Start Date End Date Abbey Bagley PA-C [employer] [place] [address] [address] PCP - General Physician Poultry Offal Icer 08/15/20 Abbey Bagley PA-C [facility] [address] [address] Physician Poultry Offal Icer 04/11/20 05/02/23 Pawel Guardado MD [address] [place] [address] Assigned OBGYN Provider 01/01/23 documented as of this encounter
--- OUTSIDE RECORDS SUMMARY | 2023-10-20 07:13 | XMS_ITS | Encounter Summary ---
Author Name Unknown Organization [place] Address [address] [facility] [place] [address] Care Team Providers Care Graphics Edit Technician Name Role Phone Abbey Bagley PA-C Unavailable [phone] Abbey Bagley PA-C Primary Care Provider + [phone] Ino Robbins MD Unavailable + [phone] Reason for Visit * Reason Comments Ultrasound L2-LVOT not well see n Encounter Details Date Type Department Care Team (Late st Contact Info) Description 01/19/[address] [facility] Maternal Medicine Center [place] [address] [facility] [address] [place] [address] Michelle Avina RN Ultrasound (L2-LVOT not well seen) Social History Tobacco Use Types Packs/Day Years Used Date Smoking Tobacco: Some Days Cigarettes 0.3 Smokeless Tobacco: Never Alcohol Use Standard Drinks/Week Comments Not Currently 0 (1 standard drink = 0.6 oz pur e alcohol) Seldom PHQ-2 Answer Date Recorded PHQ-2 Score 2 11/26/2022 [place] Depression Scale Answer Date Recorded [place] Depression Score 13 03/10/2021 Last EPDS Self [...] documented as of this encounter Care Teams Graphics Edit Technician Relationship Specialty Start Date End Date Abbey Bagley PA-C [employer] [address] [facility] [address] [place] [address] PCP - General Physician Employee Placement Specialist 08/15/20 Abbey Bagley PA-C [employer] [place] [address] [place] [address] Physician Employee Placement Specialist 04/11/20 05/02/23 Ino Robbins MD [address] [place] [address] Assigned OBGYN Provider 01/01/23 documented as of this encounter
--- OUTSIDE RECORDS SUMMARY | 2023-10-20 07:14 | XMS_ITS | Encounter Summary ---
Author Name Unknown Organization [place] Address [address] [facility] [place] [address] Care Team Providers Care Personal Companion Name Role Phone Abbey Bagley PA-C Unavailable [phone] Abbey Bagley PA-C Primary Care Provider Ino Robbins MD Unavailable Azul Gilman DO Unavailable [phone] Kelley Diane DO Unavailable Ino Robbins MD Unavailable Encounter Details Date Type Department Care Team (Late st Contact Info) Description 04/07/2021 [facility] Medical Advice [facility] [address] [place] [phone] Ino Robbins MD [address] [place], [place] [address] Social History Tobacco Use Types Packs/Day Years Used Date Smoking Tobacco: Every Day Cigarettes 0.3 Smokeless Tobacco: Never Alcohol Use Standard Drinks/Week Comments Not Currently 0 (1 standard drink = 0.6 oz pur e alcohol) Seldom PHQ-2 Answer Date Recorded PHQ-2 Score 6 02/19/2021 [place] Depression Scale Answer Date Recorded [place] Depression Score 13 03/10/2021 Last EPDS Self Harm Result Not on file 03/10 Sex and Gender Information Value Date Recorded Sex Assigned at Female 07/13/2020 10:08 AM CDT Gender Identity Female 07/13/2020 10:08 AM CDT Sexual Orientation Bisexual 07/13/2020 10 :08 AM CDT COVID-19 Exposure Response Date Recorded In the last month, have you been in contact with someone who was confirmed or suspected to have Coronavirus / COVID-19? No / Unsure 03/13/2021 8:34 AM CDT documented as of this encounter Plan of Treatment Not on file documented as of this encounter Visit Diagnoses Not on filedocumented in this encounter Additional Health Concerns Assessment Noted Time PHQ-9 Depression Total Score: 21 021 2:42 PM CDT documented as of this encounter Care Teams Personal Companion Relationship Specialty Start Date End Date Abbey Bagley PA-C [employer] [address] [address] PCP - General Physician Utility Porter 08/15/20 Abbey Bagley PA-C [employer] [address] [address] Physician Utility Porter 04/11/20 05/02/23 Ino Robbins MD [address] [place] [address] Assigned OBGYN Provider 03/08/21 Azul Gilman DO [address] [place] [address] Assigned Heart and Vascular Provider 03/08/21 09/10/22 [place] [address] [place] [address] Assigned OBGYN Provider 12/04/22 Ino Robbins MD [address] [place] [address] Assigned OBGYN Provider 01/01/23 documented as of this encounter
--- OUTSIDE RECORDS SUMMARY | 2023-10-20 07:14 | XMS_ITS | Encounter Summary ---
Author Name Unknown Organization [facility] Address [address] [facility] [address] Care Team Providers Care Web Services Architect Name Role Phone Abbey Bagley PA-C Unavailable [phone] Abbey Bagley PA-C Primary Care Provider Reason for Visit * Reason Comments Care New visit 1 7 weeks 0 days Labs & G/C due U/S 11/04 & 12/13/2022 Encounter Details Date Type Department Care Team (Latest Contact Info) Description 11/26/2022 1:30 PM CADASTRAL SURVEYOR Office Visit [facility] [place] [address] [facility] [address] [place] [address] [place] [address] [place] [address] Screen for STD (sexually transmitted disease) (Primary Dx); care in second trimester; Encounter for supervision of other normal in second trimester Social History Tobacco Use Types Packs/Day Years Used Date Smoking Tobacco: Some Days Cigarettes 0.3 Smokeless Tobacco: Never Tobacco Cessation:Ready to Q uit: No; Counseling Given: Yes Alcohol Use Standard Drinks/Week Comments Not Currently 0 (1 standard drink = 0.6 oz pur e alcohol) Seldom PHQ-2 Answer Date Recorded PHQ-2 Score 2 11/26/2022 [place] Depression Scale Answer Date Recorded [place] Depression Score 13 03/10/2021 Last EPDS Self [...] suspected to have Coronavirus/COVID-19? No / Unsure 11/26/2022 1:26 PM CADASTRAL SURVEYOR documented as of this encounter Last Filed Vital Signs Vital Sign Reading Time Taken Comments Blood Pressure 92/64 11/26/2022 1:32 PM CADASTRAL SURVEYOR Pulse - - Temperature - - Respiratory Rate - - Oxygen Saturation - - Inhaled Oxygen Concentration - - Weight 89.9 kg (198 lb 4.8 oz) 11/26/2022 1:32 P M CADASTRAL SURVEYOR Height - - Body Mass Index 31.06 11/04/2022 3:15 PM CADASTRAL SURVEYOR documented in this encounter Patient Instructions * Patient Instructions* Kelley Diane, - 11/26/2022 1:30 PM CADASTRAL SURVEYOR Labs today Return 4 weeks Return to clinic: every 4 weeks till 28 weeks, then every 2 weeks till 36 weeks, then weekly till delivery Phone numbers [place]: Day/ night [phone] ask for ob triage Emergency: Call labor and delivery: [phone] What should I call about?? Contraction every [...] mother is at rest and focused on [facility] Address Luigi Norman [facility], [place] [address] Dr. Kelley Diane DO QUILL CLEANER [facility] STRAL SURVEYOR documented in this encounter Progress Notes * Kelley Diane DO - 11/26/2022 1:30 PM CST Merry Rooney is a 22 year old @ 17w0d wks EGA with May 06, 2023 who presents to theclinic for an new ob visit. Estimated Date of Delivery: May 06, 2023 Reviewed nurse intake visit on previously H/o Chicken Pox or Varicella Vaccination: Yes History of GDM: no Hx PTL : no History of HTN in : no Shoulder dystocia: no Vacuum Extraction: yes PPH: no 3rd of 4th degree laceration: no Other complications: no PERSONAL HISTORY Exercise Habits: normal Employment: [email or web address] Her job involves no activity with no potential for toxic exposure. Travel plans: no Diet: normal vitamins? yes Fish Oil? no, rx called in today Abuse concerns? no Any history if abuse, varbal, physical, sexual? no Hgb A1c screen: BMI > 30: yes, 1st degree family DM: no, History of GDM: no, PCOS: no, High riskethnicity: no Low Dose Aspirin for Preeclampsia Prevention: Consider for those with 1 high risk or 2 moderate risk factors High risk: previous with preeclampsia, multifetal gestation, chronic htn, diabetes, chronic kidney disease, autoimmune disorder Medium risk: nulliparity, BMI >30 (yes), family hx preeclampsia, age >/= 35, Americanrace, low SES, personal risk factors (hx low weight, hx stillbirth, >10yrs between pregnancies). Teenage . Patient does not qualify for low dose aspirin therapy Patient Active Problem List Diagnosis ??? Indication for care in labor or delivery ??? Chronic GERD ??? Club foot of fetus affecting antepartum care of mother ??? Echogenic intracardiac focus of fetus on ultrasound ??? Mirena IUD inserted : Due for removal 05/2026 ??? Iron deficiency ??? Mild intermittent asthma ??? PTSD (post-traumatic stress disorder) ??? Recurrent genital HSV (herpes simplex virus) infection ??? Depression Past Medical History: Diagnosis Date ??? Anemia ??? Anxiety ??? Asthma ??? Depressive disorder 12/2020 on meds ??? Gastroesophageal reflux disease ??? Genital herpes ??? Migraines Past Surgical History: Procedure Laterality Date ??? NO HISTORY OF SURGERY Current Outpatient Medications Medication Sig Dispense Refill ??? Vit-Fe Fumarate-FA (PNV PLUS MULTIVITAMIN) 27-1 MG TABS per tablet Take 1 tablet by mouth daily ??? sertraline (ZOLOFT) 50 MG tablet Take 50 mg by mouth daily ??? albuterol (PROAIR HFA/PROVENTIL HFA/VENTOLIN HFA) 108 (90 Base) MCG/ACT inhaler Inhale 1 puff into the lungs (Patient not taking: Reported on 11/23/2022) ??? valACYclovir (VALTREX) 500 MG tablet Take 1 tablet (500 mg) by mouth 2 times daily (Patient nottaking: Reported on 05/14/2021) 6 tablet 0 PERSONAL/SOCIAL HISTORY Social History Socioeconomic History ??? Marital status: Spouse name: Jesús ??? Number of children: 1 ??? Years of education: None ??? Highest education level: GED or equivalent Occupational History ??? 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 Smoking status: Some Days Packs/day: 0.25 Types: Cigarettes ??? Smokeless tobacco: Never Vaping Use ??? Vaping Use: Former ??? Substances: Nicotine, Flavoring ??? Devices: Disposable Substance and Sexual Activity ??? Alcohol use: Not Currently Comment: Seldom ??? Drug use: Not Currently ??? Sexual activity: Yes Partners: Male Social History Narrative Merged History Encounter REVIEW OF SYSTEMS ENT: NEGATIVE for ear, mouth and throat problems CV: NEGATIVE for chest pain, palpitations or peripheral edema GI: NEGATIVE for nausea, abdominal pain, heartburn, or change in bowel habits : NEGATIVE for unusual urinary or vaginal symptoms. Periods are regular. C: NEGATIVE for fever, chills, change in weight I: NEGATIVE for worrisome rashes, moles or lesions E: NEGATIVE for vision changes or irritation R: NEGATIVE for significant cough or SOB B: NEGATIVE for masses, tenderness or discharge M: NEGATIVE for significant arthralgias or myalgia N: NEGATIVE for weakness, dizziness or paresthesias P: NEGATIVE for changes in mood or affect PHYSICAL EXAM: BP 92/64 (BP Location: Right arm, Cuff Size: Adult Regular) Wt 89.9 kg (198 lb 4.8 oz) LMP 07/30/2022 (Exact Date) BMI 31.06 kg/m?? GENERAL: Pleasant female, alert, well groomed. SKIN: Warm and dry, without lesions or rashes HEAD: Symmetrical features. EYES: PERRLA, MOUTH: Buccal mucosa pink, moist without lesions. NECK: Thyroid without enlargement and nodules. Lymph nodes not palpable. LUNGS: Clear to auscultation. BREAST: Symmetrical. No dominant, fixed or suspicious masses are noted. No skin or nipple changes or axillary nodes. Self exam is taught and encouraged. Nipples everted. HEART: RRR without murmur. ABDOMEN: Soft without masses , tenderness or organomegaly. No CVA tenderness. No scars noted.. FHT 151 MUSCULOSKELETAL: Full range of motion EXTREMITIES: No edema. No significant varicosities. GENITALIA: BUS WNL, no lesions noted VAGINA: [place], normal rugae and discharge normal and physiologic, CERVIX: smooth, without discharge or CMT and parous os, firm/ closed 4 cm long. UTERUS: Anteverted, nontender 12 weeks in size. ADNEXA: Without masses or tenderness PELVIS: Adequate, Pelvis proven to 6 pounds 2 ounces. ICSI Routine [place]fe Guideline ASSESSMENT/PLAN: Merry Rooney is a 22 year old @ 17w0d wks EGA with EDC Estimated Date of Delivery: May 06, 2023 who presents to the clinic for an new ob visit. 1) Concerns: none today Nausea some, declines. Has at home Covid-19 concerns: covid infection and vaccination recommendations discussed. 2) Routine: Blood type pending R I tdap [ ] flu [ ] GS [declines] Covid v [v and b x 1] GTT [ ] 3) Risk factors: low-risk multip A: PPBC: Micronor, orthoevra when completed B: ASA evaluation for pre-eclampsia prevention: does not qualify 4) Problem list Patient Active Problem List Diagnosis ??? Indication for care in labor or delivery ??? Chronic GERD ??? Club foot of fetus affecting antepartum care of mother ??? Echogenic intracardiac focus of fetus on ultrasound ??? Mirena IUD inserted : Due for removal 05/2026 ??? Iron deficiency ??? Mild intermittent asthma ??? PTSD (post-traumatic stress disorder) ??? Recurrent genital HSV (herpes simplex virus) infection ??? Depression 5) EDUCATION : RECOMMENDED WEIGHT GAIN: 25-35 lbs. Instructed on best evidence for: weight gain for her BMI for ; healthy diet and foods to avoid; exercise and activity during ;avoiding exposure to toxoplasmosis; and maintenance of a generally healthy lifestyle. Discussed the harms, benefits, side effects and alternative therapies for current prescribed and OTC medications: patient previously given list of recommended medications. 6) Counseled about genetic screening tests (Innatal, preparent with options, discussed standard panel and other options, 1st trimester screen and targeted anatomy scan and AFP and quad screen if first trimester screening not done) and invasive definitive testing (chorionic villus sampling and genetic amniocentesis). Patient wishes to undergo anatomy scan. 7) Return: [address] Kelley Diane DO QUILL CLEANER [facility] STRAL SURVEYOR documented in this encounter Nursing Notes * Dada, Kristyn M, COMIC ARTIST - 11/26/2022 1:30 PM CST Chief Complaint Patient presents with ??? Care New visit 17 weeks 0 days Labs & G/C due U/S 11/04 & 12/13/2022 Initial BP 92/64 (BP Location: Right arm, Cuff Size: Adult Regular) Wt 89.9 kg (198 lb 4.8 oz) LMP 07/30/2022 (Exact Date) BMI 31.06 kg/m?? Estimated body mass index is 31.06 kg/m?? as calculated from the following: Height as of 11/04/22: 1.702 m (5' 7). Weight as of this encounter: 89.9 kg (198 lb 4.8 oz). BP completed using cuff size: regular Questioned patient about current smoking habits. Pt. currently smokes. Advised about smoking cessation. 17w0d The following HM Due: NONE +Nausea getting better Kristyn Garland CMA on 11/26/2022 at 1:35 PM STRAL SURVEYOR documented in this encounter Plan of Treatment Scheduled Orders Name Type Priority Associated Diagnoses Orde r Schedule NEISSERIA GONORRHOEA PCR Microbiology Routine Screen for STD (sexually transmitted disease) Ordered: 11/26/2022 documented as of this encounter Procedures Procedure Name Priority Date/Time Associated Diagnosis Comments URINE CULTURE Routine 11/26/2022 2:37 PM CADASTRAL SURVEYOR Encounter for supervision of other normal in second trimester TYPE AND SCREEN, ADULT Routine 11/26/2022 2:16 PM CADASTRAL SURVEYOR Encounter for supervision of other normal in second trimester RUBELLA ANTIBODY IGG Routine 11/26/2022 2:16 PM CADASTRAL SURVEYOR Encounter for supervision of other normal in second trimester HIV ANTIGEN ANTIBODY COMBO Routine 11/26/2022 2:16 PM CADASTRAL SURVEYOR Encounter for supervision of other normal in second trimester TREPONEMA ABS W REFLEX TO RPR AND TITER Routine 11/26/2022 2:16 PM CADASTRAL SURVEYOR Encounter for supervision of other normal in second trimester HEPATITIS C ANTIBODY Routine 11/26/2022 2:16 PM CADASTRAL SURVEYOR Encounter for supervision of other normal in second trimester HEPATITIS B SURFACE ANTIGEN Routine 11/26/2022 2:16 PM CADASTRAL SURVEYOR Encounter for supervision of other normal in second trimester ABO/RH TYPE AND SCREEN Routine 11/26/2022 2:16 PM CADASTRAL SURVEYOR Encounter for supervision of other normal in second trimester CHLAMYDIA TRACHOMATIS PCR Routine 11/26/2022 1:42 PM CADASTRAL SURVEYOR Screen for STD (sexually transmitted disease) documented in this encounter Results * Urine Culture Aerobic Bacterial (11/26/2022 2:37 PM CADASTRAL SURVEYOR) Culture 10,000-50,000 CFU/mL Mixture of urogenital chely RHIANNA 11/28/2022 10:50 AM CADASTRAL SURVEYOR [facility] Urine MID-STREAM URINE SPECIMEN / Unknown Non-blood Collection / Unknown 11/26/2022 2:37 PM CADASTRAL SURVEYOR 11/26/2022 2:37 PM CADASTRAL SURVEYOR Kelley Diane DO LAB - MICRO GENER AL ORDERABLES [facility] Inf. Diseases Diag. Lab [address] [facility] [place] [address], [facility] [phone] * Adult Type and Screen (11/26/2022 2:16 PM CADASTRAL SURVEYOR) ABO/RH(D) A POS 11/25/2022 6:00 PM CADASTRAL SURVEYOR RH BLOOD BANK Antibody Screen Negative Negative 11/25/2022 6:00 PM CADASTRAL SURVEYOR RH BLOOD BANK SPECIMEN EXPIRATION DATE [id number] 11/25/2022 6:00 PM CADASTRAL SURVEYOR RH BLOOD BANK Blood BLOOD SPECIMEN / Unknown Venipuncture / Unknown 11/26/2022 2:16 PM CADASTRAL SURVEYOR 11/26/2022 2:27 PM CADASTRAL SURVEYOR Kelley Diane DO LAB - BLOOD BANK TEST ORDER BLOOD BANK [place] [address] * Hepatitis C antibody (11/26/2022 2:16 PM CADASTRAL SURVEYOR) Hepatitis C Antibody Nonreactive Nonreactive 11/27/2022 2:46 PM CADASTRAL SURVEYOR [facility] C[facility]/PROT/EN DO Blood BLOOD SPECIMEN / Unknown Venipuncture / Unknown 11/26/2022 2:16 PM CADASTRAL SURVEYOR 11/26/2022 2:28 PM CADASTRAL SURVEYOR Narrative [facility] SPECIALTY CORE/PROT/ENDO - 11/27/2022 2:46 PM CADASTRAL SURVEYOR Assay performance characteristics have not been established for newborns, infants, and children. Kelley Diane DO LAB - BLOOD ORDER BROOKE Performing Organization Address City/[facility]/ZIP Co de Phone Number SPECIALTY CORE/PROT/ENDO Specialty Core/Prot/Endo [address] [facility], [address] [phone] * Treponema Abs w Reflex to RPR and Titer (11/26/2022 2:16 PM CADASTRAL SURVEYOR) Pathologist [facility] Treponema Antibody Total Nonreactive Nonreactive 11/27/2022 10:22 AM CADASTRAL SURVEYOR SPECIALTY CORE/PROT/EN DO Blood BLOOD SPECIMEN / Unknown Venipuncture / Unknown 11/26/2022 2:16 PM CADASTRAL SURVEYOR 11/26/2022 2:28 PM CADASTRAL SURVEYOR Kelley Castro [facility] LAB - BLOOD ORDER BROOKE SPECIALTY CORE/PROT/ENDO Specialty Core/Prot/Endo [address] [facility] [address] [facility], [address] [phone] * Rubella Antibody IgG Quantitative (11/26/2022 2:16 PM CADASTRAL SURVEYOR) Rubella Isabelle IgG Instrument Value 3.93 <0.90 Index 11/29/2022 12:01 PM CADASTRAL SURVEYOR [facility] SPECIALTY CORE/PROT/END O Rubella Antibody IgG Positive 11/29/2022 12:01 PM CADASTRAL SURVEYOR SPECIALTY CORE/PROT/END O Comment:Suggests previous ex posure or immunization and probable immunity. Blood BLOOD SPECIMEN / Unknown Venipuncture / Unknown 11/26/2022 2:16 PM CADASTRAL SURVEYOR 11/26/2022 2:27 PM CADASTRAL SURVEYOR Kelley Diane DO LAB - BLOOD ORDER BROOKE [facility] SPECIALTY CORE/PROT/ENDO UM Specialty Core/Prot/Endo [address] [facility], [address] [phone] * HIV Antigen Antibody Combo (11/26/2022 2:16 PM CADASTRAL SURVEYOR) HIV Antigen Antibody Combo Nonreactive Nonreactive 11/27/2022 2:46 PM CADASTRAL SURVEYOR SPECIALTY CORE/PROT/EN DO Comment:HIV-1 p24 Ag & HIV-1 /HIV-2 Ab Not Detected Blood BLOOD SPECIMEN / Unknown Venipuncture / Unknown 11/26/2022 2:16 PM CADASTRAL SURVEYOR 11/26/2022 2:28 PM CADASTRAL SURVEYOR Kelley Diane DO LAB - BLOOD ORDER BROOKE UM SPECIALTY CORE/PROT/ENDO Specialty Core/Prot/Endo [address] [facility], [address] [phone] * Hepatitis B surface antigen (11/26/2022 2:16 PM CADASTRAL SURVEYOR) Hepatitis B Surface Antigen Nonreactive Nonreactive 11/27/2022 2:46 PM CADASTRAL SURVEYOR SPECIALTY CORE/PROT/EN DO Blood BLOOD SPECIMEN / Unknown Venipuncture / Unknown 11/26/2022 2:16 PM CADASTRAL SURVEYOR 11/26/2022 2:28 PM CADASTRAL SURVEYOR Kelley Diane DO LAB - BLOOD ORDER BROOKE SPECIALTY CORE/PROT/ENDO Specialty Core/Prot/Endo [address] [facility], [address] [place] [address], [facility] [phone] * CHLAMYDIA TRACHOMATIS PCR (11/26/2022 1:42 PM CADASTRAL SURVEYOR) Chlamydia trachomatis Negative Negative 11/27/2022 12:55 PM CADASTRAL SURVEYOR [facility] Comment:A negative result by nutrition aide mediated amplification does not preclude the presence of C. trachomatis infection because results are dependent on proper and adequate collection, absence of inhibitors and sufficient rRNA to be detected. Swab CERVIX UTERI STRUCTURE / Unknown Non-blood Collection / Unknown 11/26/2022 1:42 PM CADASTRAL SURVEYOR 11/26/2022 3:02 PM CADASTRAL SURVEYOR Kelley Diane DO LAB - MICRO GENER AL ORDERABLES [facility] Inf. Diseases Diag. Lab [address] [facility] [place] [address], [facility] [phone] documented in this encounter Visit Diagnoses Diagnosis Screen for STD (sexually transmitted disease)- Primary Screening examination for venereal disease care in second trimester Encounter for supervision of other normal in second trimester documented in this encounter Additional Health Concerns Assessment Noted Time PHQ-9 Depression Total Score: 19 08/05/2 021 3:52 PM CDT documented as of this encounter Care Teams Web Services Architect Relationship Specialty Start Date End Date Abbey Bagley PA-C [facility] [address] [id number] PCP - General Physician Client Support Representative 08/15/20 Abbey Bagley PA-C [facility] [place] [address] [id number] Physician Client Support Representative 04/11/20 05/02/23 documented as of this encounter
--- OUTSIDE RECORDS SUMMARY | 2023-10-20 07:14 | XMS_ITS | Encounter Summary ---
Author Name Unknown Organization [place] Address [address] [facility] [address] Care Team Providers Care Knockout Machine Operator Name Role Phone Abbey Bagley PA-C Unavailable [phone] Abbey Bagley PA-C Primary Care Provider Kelley Diane DO Unavailable [phone] Reason for Referral * Diagnostic Imaging Ultrasound (Routine) - Pending Review Specialty Diagnoses / Procedures Referred By Bernardo belle Referred To Contact Radiology. Diagnoses care in second trimester Procedures US OB >14 Weeks Follow Up Ino Robbins MD [address] [place] [address] Referral ID Status Reason Start Date Expiration Date V isits Requested Visits Authorized [id number] Pending Review 12/14/2022 12/14/2023 1 1 ICATION CHEMIST Encounter Details Date Type Department Care Team (Late st Contact Info) Description 12/14/2022 Orders Only [facility] [address] [place] [phone] Ino Robbins MD [address] [place] [address] care in second trimester (Primary Dx) Social History Tobacco Use Types Packs/Day Years Used Date Smoking Tobacco: Some Days Cigarettes 0.3 Smokeless Tobacco: Never Alcohol Use Standard Drinks/Week Comments Not Currently 0 (1 standard drink = 0.6 oz pur e alcohol) Seldom PHQ-2 Answer Date Recorded PHQ-2 Score 2 11/26/2022 [place] Depression Scale Answer Date Recorded [place] Depression Score 13 03/10/2021 Last EPDS Self [...] suspected to have Coronavirus/COVID-19? No / Unsure 12/13/2022 10:57 AM APPLICATION CHEMIST documented as of this encounter Plan of Treatment Not on file documented as of this encounter Results * (ABNORMAL) US OB [...] ??Consider short term follow-up versus referral to MFM to complete heart views. growth shows satisfactory [...] from the original result was not included. [facility] ULTRASOUND - OB FOLLOW UP > 14 Weeks - Transabdominal ?? Referring Provider: Ino Robbins MD ?? INDICATIONS FOR ULTRASOUND: OB History: Present Conditions: Follow-up spine, heart, outflow tracts ?? CLINICAL INFORMATION ?? LMP: Jul 31 ??- sure EDC: May 01 ?EGA: 21w 6d Ino Robbins MD IMG US ORDERAB LES documented in this encounter Visit Diagnoses Diagnosis care in second trimester- Primary care in second trimester documented in this encounter Additional Health Concerns Assessment Noted Time PHQ-9 Depression Total Score: 19 021 3:52 PM CDT documented as of this encounter Care Teams Knockout Machine Operator Relationship Specialty Start Date End Date Abbey Bagley [facility]-C [facility] [address] [place] [address] PCP - General Physician Leave Specialist 08/15/20 Abbey Bagley PA-C [facility] [address] [place] [address] Physician Leave Specialist 04/11/20 05/02/23 [place] [address] [place] [address] Assigned OBGYN Provider 12/04/22 documented as of this encounter
--- OUTSIDE RECORDS SUMMARY | 2023-10-20 07:14 | XMS_ITS | Encounter Summary ---
Author Name Unknown Organization [facility] Address [address] [place] [address] Care Team Providers Care Skin Drier Name Role Phone Abbey Bagley PA-C Unavailable [phone] Abbey Bagley PA-C Primary Care Provider [phone] Encounter Details Date Type Department Care Team (Latest Contact Info) Description 11/26/2022 Travel Social History Tobacco Use Types Packs/Day Years Used Date Smoking Tobacco: Some Days Cigarettes 0.3 Smokeless Tobacco: Never Alcohol Use Standard Drinks/Week Comments Not Currently 0 (1 standard drink = 0.6 oz pur e alcohol) Seldom PHQ-2 Answer Date Recorded PHQ-2 Score 2 11/26/2022 [place] Depression Scale Answer Date Recorded [place] Depression Score 13 03/10/2021 Last EPDS Self [...] Coronavirus/COVID-19? No / Unsure 11/26/2022 1:26 PM SECURITY PROJECT MANAGER documented as of this encounter Plan of Treatment Not on file documented as of this encounter Visit Diagnoses Not on filedocumented in this encounter Additional Health Concerns Assessment Noted Time PHQ-9 Depression Total Score: 19 021 3:52 PM CDT documented as of this encounter Care Teams Skin Drier Relationship Specialty Start Date End Date Abbey Bagley PA-C [employer] [address] [place] [address] PCP - General Physician Loom Overhauler 08/15/20 Abbey Bagley PA-C [employer] [place] [address] [place] [address] Physician Loom Overhauler 04/11/20 05/02/23 documented as of this encounter
--- OUTSIDE RECORDS SUMMARY | 2023-10-20 07:14 | XMS_ITS | Encounter Summary ---
Author Name Unknown Organization [facility] Address [address] [place] [address] Care Team Providers Care Hospice Massage Therapist Name Role Phone Abbey Bagley PA-C Unavailable [phone] Abbey Bagley PA-C Primary Care Provider + [phone] Ino Robbins MD Unavailable [phone] Reason for Visit * Reason Comments Headache Abdominal Pain Back Pain Encounter Details Date Type Department Care Team (Late st Contact Info) Description 11/04/2022 5:28 PM STOREROOM ATTENDANT - 11/04/2022 7:04 PM [facility] Emergency Dept [address] [place] [phone] Jillian Multani MD [facility] [address] [place], [place] [id number] Nonintractable headache, unspecified chronicity pattern, unspecified headache type; 14 weeks gestation of Discharge Disposition: Left Against Medical Advice Social History Tobacco Use Types Packs/Day Years Used Date Smoking Tobacco: Every Day Cigarettes 0.3 Smokeless Tobacco: Never Alcohol Use Standard Drinks/Week Comments Not Currently 0 (1 standard drink = 0.6 oz pur e alcohol) Seldom PHQ-2 Answer Date Recorded PHQ-2 Score 4 05/14/2021 [place] Depression Scale Answer Date Recorded [place] Depression Score 13 03/10/2021 Last EPDS Self Harm Result Not on file 03/10 Comments Yes Sex and Gender Information Value Date Recorded Sex Assigned at Female 07/13/2020 10:08 AM CDT Gender Identity Female 07/13/2020 10:08 AM CDT Sexual Orientation Bisexual 07/13/2020 10 :08 AM CDT COVID-19 Exposure Response Date Recorded In the last 10 days, have yo u been in contact with someone who was confirmed or suspected to have Coronavirus/COVID-19? No / Unsure 11/04/2022 3:04 PM STOREROOM ATTENDANT documented as of this encounter Last Filed Vital Signs Vital Sign Reading Time Taken Comments Blood Pressure 115/79 11/04/2022 3:19 PM STOREROOM ATTENDANT Pulse 83 11/04/2022 3:15 PM STOREROOM ATTENDANT Temperature 36.6 ??C (97.8 ??F) 11/04/2022 3:15 PM CS T Respiratory Rate 16 11/04/2022 3:15 PM STOREROOM ATTENDANT Oxygen Saturation 100% 11/04/2022 3:15 PM STOREROOM ATTENDANT Inhaled Oxygen Concentration - - Weight 89.4 kg (197 lb) 11/04/2022 3:15 PM STOREROOM ATTENDANT Height 170.2 cm (5' 7) 11/04/2022 3:15 PM STOREROOM ATTENDANT Body Mass Index 30.85 11/04/2022 3:15 PM STOREROOM ATTENDANT documented in this encounter Medications at Time of Discharge Medication Sig Dispensed Refills Start Date End Date albuterol (PROAIR HFA/PROVENTIL HFA/VENTOLIN HFA) 108 (90 Base) MCG/ACT inhaler Inhale 1 puff into the lungs 0 11/26/2019 diphenhydrAMINE (BENADRYL) 25 MG capsuleIndications:[place] and vomiting, unspecified vomiting type Take 1 capsule (25 mg) by mouth every 6 hours as needed (nausea) 30 capsule 0 09/24/2022 11/23/2022 escitalopram (LEXAPRO) 10 MG tabletIndications:Rout ine follow-up, depression Take 1 tablet (10 mg) by mouth daily 90 tablet 1 05/14/2021 11/23/2022 levonorgestrel (MIRENA) 20 MCG/24HR IUDIndications:Encount er for insertion of intrauterine contraceptive device 1 each (20 mcg) by Intrauterine route once 0 11/23/2022 metroNIDAZOLE (FLAGYL) 500 MG tablet Take 500 mg by mouth 0 09/22/20222022 Vit-Fe Fumarate-FA (PNV PLUS MULTIVITAMIN) 27-1 MG TABS per tablet Take 1 tablet by mouth daily 0 04/20/2023 sertraline (ZOLOFT) 50 MG tablet Take 50 mg by mouth daily 0 01/19/2023 valACYclovir (VALTREX) 500 MG tablet Take 1 tablet (500 mg) by mouth 2 times daily 6 tablet 0 04/11/2020 01/19/2023 documented as of this encounter ED Notes * Anna Estrella RN - 11/04/2022 7:03 PM CST Pt states she had to leave to go cook pickled meat child. Pt signed AMA paperwork after Dr. Multani went through risks of leaving. Pt was told to come back with any worsening symptoms. EROOM ATTENDANT * Jacque Pitts RN - 11/04/2022 3:17 PM CST Pt. Presents to ED with complaints of 4 days of migraine like CUMMINS. No hx of migraines. Is 14 weeks , second . Reports lower abdominal cramping with increased clear/serous vaginal discharge along with lower back pain. Pt. Reports photosensitivity, nausea, vomiting, dizziness. AVSS onRA. A & O x 4, independent. Triage Assessment Row Name 11/04/22 1517 Triage Assessment (Adult) Airway WDL WDL Respiratory WDL Respiratory WDL WDL Skin Circulation/Temperature WDL Skin Circulation/Temperature WDL WDL Cardiac WDL Cardiac WDL WDL Peripheral/Neurovascular WDL Peripheral Neurovascular WDL WDL Cognitive/Neuro/Behavioral WDL Cognitive/Neuro/Behavioral WDL WDL EROOM ATTENDANT * Jillian Multani MD - 11/04/2022 3:04 PM CST ED evaluation Patient presented with headache and dizziness. Headache started about 4 days ago. It was not a thunderclap headach. No fever, cough or congestion. Headache has persisted despite using tylenol. Occasional nausea and vomiting- about 2x per day. No diarrhea. Mild lower abdominal cramping. Pt notes some increase in vaginal discharge but states that it is very similar to the increased discharge with her prior and denies that it is consistent leaking of fluid. No vaginal bleeding. Denies trauma. No weakness of extremities. Some light sednsitivity. Does not have a history of chronic CUMMINS. Reports occasional blurry vision but not consistent. Feels dizzy upon standing. Exam is notable for: Gen: alert HEENT: no acute abnl Neck: normal ROM CV: RRR, no murmurs Pulm: breath sounds equal, lungs clear Abd: Soft, nontender MSK: no deformity, moves all extremities Neuro: alert, oriented x3, PERRL, EOMI, CN 2-7 and 9-12 intact, 5/5 grasp BUE, 5/5 elbow flexion and extension BUE, 5/5 shoulder abduction BUE, 5/5 hip flexion, knee flexion, knee extension, plantar and dorsiflexion BLE, no pronator drift, normal gait, negative romberg, no dysdiadochokinesia, normal [id number] testing Appropriate interventions for symptom management were initiated if applicable. Appropriate diagnostic tests were initiated if indicated. Labs Ordered and Resulted from Time of ED Arrival to Time of ED Departure HCG QUANTITATIVE - Abnormal Result Value hCG Quantitative 43,965 (*) CBC WITH PLATELETS AND DIFFERENTIAL - Abnormal WBC Count 9.2 RBC Count 5.16 Hemoglobin 13.2 Hematocrit 41.7 MCV 81 MCH 25.6 (*) MCHC 31.7 RDW 15.4 (*) Platelet Count 264 % Neutrophils 74 % Lymphocytes 17 % Monocytes 5 % Eosinophils 3 % Basophils 1 % Immature Granulocytes 0 NRBCs per 100 WBC 0 Absolute Neutrophils 6.8 Absolute Lymphocytes 1.5 Absolute Monocytes 0.5 Absolute Eosinophils 0.2 Absolute Basophils 0.1 Absolute Immature Granulocytes 0.0 Absolute NRBCs 0.0 US OB < 14 Weeks Single Final Result IMPRESSION: Single living intrauterine gestation at 14 weeks 1 day, EDC 05/04/2023. CRUZ PATE MD SYSTEM ID: [id number] I mental decision making 14 weeks. I recommended MRI brain and MRV brain to the patient to evaluate for mass bleeding and venous sinus thrombosis given . I recommended treatment with headache medications and fluids. Ultrasound result was discussed with the patient. At this time, she states that she must leave to cook pickled meat her child and is not able to stay for further diagnostic testing. She understands that she is leaving AGAINST MEDICAL ADVICE but may return at any time for further evaluation. She understands that risk of missed intracranial pathology. Jillian Multani MD 11/04/22 1840 Jillian Multani MD 11/05/22 0214 EROOM ATTENDANT documented in this encounter Plan of Treatment Not on file documented as of this encounter Procedures Procedure Name Priority Date/Time Associated Diagnosis Comments US OB < 14 WEEKS SINGLE-TRANSABDOMINAL STAT 11/04/2022 4:09 PM STOREROOM ATTENDANT CBC WITH PLATELETS AND DIFFERENTIAL STAT 11/04/2022 3:22 PM STOREROOM ATTENDANT CBC WITH PLATELETS & DIFFERENTIAL STAT 11/04/2022 3:22 PM STOREROOM ATTENDANT HCG QUANTITATIVE STAT 11/04/2022 3:22 PM STOREROOM ATTENDANT documented in this encounter Results * US OB < 14 Weeks Single (11/04/2022 4:09 PM STOREROOM ATTENDANT) Anatomical Region Laterality Modality Abdomen/Pelvis Ultrasound Impressions 11/04/2022 7:34 PM STOREROOM ATTENDANT IMPRESSION: Single living intrauterine gestation at 14 weeks 1 day, EDC 05/04/2023. CRUZ PATE MD SYSTEM ID: [id number] Narrative 11/04/2022 7:34 PM STOREROOM ATTENDANT US OB < 14 WEEKS SINGLE-TRANSABDOMINAL 11/04/2022 4:09 PM CLINICAL HISTORY: Cramping and low back pain during early . TECHNIQUE: Transabdominal scans were performed. Endovaginal ultrasound was performed to better visualize the embryo. COMPARISON: 08/15/2020. FINDINGS: UTERUS: Single normal appearing intrauterine gestation sac. CRL: measures 81 mm, equals 14 weeks 1 day. HEART RATE: 161 bpm. AMNIOTIC FLUID: Normal. PLACENTA: Anterior. No evidence for sub-chorionic hemorrhage. RIGHT OVARY: Normal. LEFT OVARY: Normal. Procedure Note Cruz Pate MD - 11/04/2022 US OB < 14 WEEKS SINGLE-TRANSABDOMINAL 11/04/2022 4:09 PM CLINICAL HISTORY: Cramping and low back pain during early . TECHNIQUE: Transabdominal scans were performed. Endovaginal ultrasound was performed to better visualize the embryo. COMPARISON: 08/15/2020. FINDINGS: UTERUS: Single normal appearing intrauterine gestation sac. CRL: measures 81 mm, equals 14 weeks 1 day. HEART RATE: 161 bpm. AMNIOTIC FLUID: Normal. PLACENTA: Anterior. No evidence for sub-chorionic hemorrhage. RIGHT OVARY: Normal. LEFT OVARY: Normal. IMPRESSION: Single living intrauterine gestation at 14 weeks 1 day, EDC 05/04/2023. CRUZ PATE MD SYSTEM ID: [id number] Wagner Moody MD IMG US ORDERABLES * (ABNORMAL) CBC with platelets and differential (11/04/2022 3:22 PM STOREROOM ATTENDANT) WBC Count 9.2 4.0 - 11.0 10e3/uL 11/04/2022 5:49 PM STOREROOM ATTENDANT [facility] RBC Count 5.16 3.80 - 5.20 10e6/uL 11/04/2022 5:49 PM STOREROOM ATTENDANT [facility] Hemoglobin 13.2 11.7 - 15.7 g/dL 11/04/2022 5:49 PM STOREROOM ATTENDANT [facility] Hematocrit 41.7 35.0 - 47.0 % 11/04/2022 5:49 PM STOREROOM ATTENDANT [facility] MCV 81 78 - 100 fL 11/04/2022 5:49 PM STOREROOM ATTENDANT [facility] MCH 25.6(L) 26.5 - 33.0 pg 11/04/2022 5:49 PM STOREROOM ATTENDANT [facility] MCHC 31.7 31.5 - 36.5 g/dL 11/04/2022 5:49 PM STOREROOM ATTENDANT [facility] RDW 15.4(H) 10.0 - 15.0 % 11/04/2022 5:49 PM STOREROOM ATTENDANT [facility] Platelet Count 264 150 - 450 10e3/uL 11/04/2022 5:49 PM STOREROOM ATTENDANT [facility] % Neutrophils 74 % 11/04/2022 5:49 PM STOREROOM ATTENDANT [facility] % Lymphocytes 17 % 11/04/2022 5:49 PM STOREROOM ATTENDANT [facility] % Monocytes 5 % 11/04/2022 5:49 PM STOREROOM ATTENDANT [facility] % Eosinophils 3 % 11/04/2022 5:49 PM STOREROOM ATTENDANT [facility] % Basophils 1 % 11/04/2022 5:49 PM STOREROOM ATTENDANT [facility] % Immature Granulocytes 0 % 11/04/2022 5:49 PM STOREROOM ATTENDANT [facility] NRBCs per 100 WBC 0 <1 /100 023 5:49 PM STOREROOM ATTENDANT [facility] Absolute Neutrophils 6.8 1.6 - 8.3 10e3/uL 11/04/2022 5:49 PM STOREROOM ATTENDANT [facility] Absolute Lymphocytes 1.5 0.8 - 5.3 10e3/uL 11/04/2022 5:49 PM STOREROOM ATTENDANT [facility] Absolute Monocytes 0.5 0.0 - 1.3 10e3/uL 11/04/2022 5:49 PM STOREROOM ATTENDANT [facility] Absolute Eosinophils 0.2 0.0 - 0.7 10e3/uL 11/04/2022 5:49 PM STOREROOM ATTENDANT [facility] Absolute Basophils 0.1 0.0 - 0.2 10e3/uL 11/04/2022 5:49 PM STOREROOM ATTENDANT [facility] Absolute Immature Granulocytes 0.0 <=0.4 10e3/uL 11/04/2022 5:49 PM STOREROOM ATTENDANT [facility] Absolute NRBCs 0.0 10e3/uL 11/04/2022 5:49 PM STOREROOM ATTENDANT [facility] Blood BLOOD SPECIMEN / Unknown Venipuncture / Unknown 11/04/2022 3:22 PM STOREROOM ATTENDANT 11/04/2022 5:43 PM STOREROOM ATTENDANT Jillian Multani MD LAB - BL OOD ORDERABLES [facility] [address] Lab (1st floor, no room number) [place] [address], [facility] [phone] * (ABNORMAL) HCG QUANTitative (blood) (11/04/2022 3:22 PM STOREROOM ATTENDANT) [facility] hCG Quantitative 43,965(H) <5 mIU/mL 11/04/19 6:59 PM STOREROOM ATTENDANT LABORATORY Comment: Adult: 0-5 mIU/mL for healthy non- person Neonates: Should be within normal ranges by 2 days after Blood BLOOD SPECIMEN / Unknown Venipuncture / Unknown 11/04/2022 3:22 PM STOREROOM ATTENDANT 11/04/2022 5:43 PM STOREROOM ATTENDANT Jillian Multani MD LAB - BL OOD ORDERABLES LABORATORY [facility] [address] [facility] Lab (1st floor, no room number) [place] [address], [facility] [phone] documented in this encounter Visit Diagnoses Diagnosis Nonintractable headache, unspecified chronicity pattern, unspecified headache type 14 weeks gestation of state, incidental documented in this encounter Administered Medications Inactive Administered Medications - up to 3 most recent administrations Medication Order MAR Action Action Date Dose Rate Site ondansetron (ZOFRAN ODT) ODT tab 4 mg 4 mg, Oral, ONCE, On Anais 11/04/22 at 1535, For 1 dose, With dry hands, peel back foil backing and gently remove tablet. Do not push oral disintegrating tablet through foil backing. Administer immediately on tongue and oral disintegrating tablet dissolves in seconds, then swallow with saliva. Liquid not required. $Given 11/04/2022 3:33 PM STOREROOM ATTENDANT 4 mg documented in this encounter Active and Recently Administered Medications Times are shown in STOREROOM ATTENDANT. Scheduled Medication Order 11/02/2022 11/03/2022 11/04/2022 0.9% sodium chloride BOLUS Intravenous, 1,000 mL, ONCE, at 1,000 mL/hr, Administer over 1 Hours, On Anais 11/04/22 at 1840, For 1 dose 1840 (Canceled Entry - Provider: Orders Generic Provider - Comment: Automatically canceled at discontinue of medication order) acetaminophen (TYLENOL) tablet 650 mg 650 mg, Oral, ONCE, On Anais 11/04/22 at 1840, For 1 dose, Maximum acetaminophen dose from all sources = 75 mg/kg/day not to exceed 4 grams/day. 1840 (Canceled Entry - Provider: Orders Generic Provider - Comment: Automatically canceled at discontinue of medication order) diphenhydrAMINE (BENADRYL) injection 25 mg 25 mg, Intravenous, ONCE, On Anais 11/04/22 at 1840, For 1 dose 1840 (Canceled Entry - Provider: Orders Generic Provider - Comment: Automatically canceled at discontinue of medication order) metoclopramide (REGLAN) injection 10 mg 10 mg, Intravenous, Administer over 2 Minutes, ONCE, On Anais 11/04/22 at 1840, For 1 dose, Avoid use if patient has full bowel obstruction or perforation. Irritant. 1840 (Canceled Entry - Provider: Orders Generic Provider - Comment: Automatically canceled at discontinue of medication order) ondansetron (ZOFRAN ODT) ODT tab 4 mg (COMPLETED) 4 mg, Oral, ONCE, On Anais 11/04/22 at 1535, For 1 dose, With dry hands, peel back foil backing and gently remove tablet. Do not push oral disintegrating tablet through foil backing. Administer immediately on tongue and oral disintegrating tablet dissolves in seconds, then swallow with saliva. Liquid not required. 1533 ($Given - Provi aly: Jacque Pitts RN) documented in this encounter Additional Health Concerns Assessment Noted Time PHQ-9 Depression Total Score: 19 05/14/ 021 3:52 PM CDT documented as of this encounter Care Teams Hospice Massage Therapist Relationship Specialty Start Date End Date Abbey Bagley PA-C [facility] [address] [address] PCP - General Physician Grinder Set Up Operator Surface 08/15/20 Abbey Bagley PA-C [employer] [address] [facility] [address] [place] [address] Physician Grinder Set Up Operator Surface 04/11/20 05/02/23 [place] [address] Assigned OBGYN Provider 03/08/21 documented as of this encounter
--- OUTSIDE RECORDS SUMMARY | 2023-10-20 07:14 | XMS_ITS | Encounter Summary ---
Author Name Unknown Organization [facility] Address [address] [place] [address] Care Team Providers Care Director Writing Name Role Phone Abbey Bagley PA-C Unavailable [phone] Abbey Bagley PA-C Primary Care Provider + [phone] Kelley Diaen DO Unavailable [phone] Encounter Details Date Type Department Care Team (Latest Contact Info) Description 12/13/2022 Travel Social History Tobacco Use Types Packs/Day Years Used Date Smoking Tobacco: Some Days Cigarettes 0.3 Smokeless Tobacco: Never Alcohol Use Standard Drinks/Week Comments Not Currently 0 (1 standard drink = 0.6 oz pur e alcohol) Seldom PHQ-2 Answer Date Recorded PHQ-2 Score 2 11/26/2022 [place] Depression Scale Answer Date Recorded [place] Depression Score 13 03/10/2021 Last EPDS Self [...] Coronavirus/COVID-19? No / Unsure 12/13/2022 10:57 AM [employer] documented as of this encounter Plan of Treatment Not on file documented as of this encounter Visit Diagnoses Not on filedocumented in this encounter Additional Health Concerns Assessment Noted Time PHQ-9 Depression Total Score: 19 021 3:52 PM CDT documented as of this encounter Care Teams Director Writing Relationship Specialty Start Date End Date Abbey Bagley PA-C [employer] [address] [facility] [address] [place] [address] PCP - General Physician Core Machine Tender 08/15/20 Abbey Bagley PA-C [employer] [place] [address] [facility] [address] [place] [address] Physician Core Machine Tender 04/11/20 05/02/23 [place] [address] [place] [address] Assigned OBGYN Provider 12/04/22 documented as of this encounter
--- OUTSIDE RECORDS SUMMARY | 2023-10-20 07:14 | XMS_ITS | Encounter Summary ---
Author Name Unknown Organization [facility] Address [address] [place] [address] Care Team Providers Care Service Desk Specialist Name Role Phone Abbey Bagley PA-C Unavailable Abbey Bagley PA-C Primary Care Provider Kelley Diane DO Unavailable [phone] Reason for Visit * Diagnostic Imaging Ultrasound (Routine) - Pending Review Specialty Diagnoses / Procedures Referred By Bernardo belle Referred To Contact Radiology. Diagnoses Encounter for supervision of other normal in second trimester Procedures US OB > 14 Weeks Ino Robbins MD [address] [place] [address] Referral ID Status Reason Start Date Expiration Date V isits Requested Visits Authorized [id number] Pending Review 11/23/2022 11/23/2023 1 1 Encounter Details Date Type Department Care Team (Late st Contact Info) Description 12/13/2022 11:00 AM TRAVEL COTA Ancillary Procedure [facility] [address] [facility] [address] [place] [phone] Ino Robbins MD [address] [place] [address] Encounter for supervision of other normal in second trimester Social History Tobacco Use Types Packs/Day Years Used Date Smoking Tobacco: Some Days Cigarettes 0.3 Smokeless Tobacco: Never Alcohol Use Standard Drinks/Week Comments Not Currently 0 (1 standard drink = 0.6 oz pur e alcohol) Seldom PHQ-2 Answer Date Recorded PHQ-2 Score 2 11/26/2022 [place] Depression Scale Answer Date Recorded [place] Depression Score 13 03/10/2021 Last EPDS Self [...] Coronavirus/COVID-19? No / Unsure 12/13/2022 10:57 AM TRAVEL COTA documented as of this encounter Plan of Treatment Not on file documented as of this encounter Procedures Procedure Name Priority Date/Time Associated Diagnosis Comments US OB > 14 WEEKS Routine 12/13/2022 11:5 0 AM TRAVEL COTA Encounter for supervision of other normal in second trimester documented in this encounter Results * US OB > 14 Weeks (12/13/2022 11:50 AM TRAVEL COTA) Anatomical Region Laterality Modality Abdomen/Pelvis Ultrasound Narrative 12/13/2022 1:08 PM TRAVEL COTA Table formatting from the original result was not included. [facility] Obstetrics and Gynecology ?? ULTRASOUND - OB > 14 Weeks Complete - Transabdominal ?? Referring Provider: Ino Robbins MD ?? INDICATIONS FOR ULTRASOUND: OB History: Present Conditions: Initial Survey (18-26 weeks) ?? CLINICAL INFORMATION ?? LMP: 07/30/2022 ??sure EDC: 05/06/2023 ??EGA: 19w 3d ? [place] Gestation. ?? presentation: Cephalic Placenta location: Anterior, no previa, > 2 cm from internal os Grade: I ?? Cord: 3 Vessel Cord ?? BPD 4.72 cm 19w2d HC 16.63 cm 19w2d AC 13.58 cm 19w0d FL 2.98 cm 19w1d HL 2.86 cm 19w2d Cerebellum 1.89 cm 18w3d CM 4.18 mm ?? Lat Vent 5.67 mm ?? Amniotic Fluid 3.82 cm MVP ?? Heart Rate 138 bpm ?? EFW (lbs/oz) 10ozs ?? EFW (g) 277 g ?? EDC: 05/06/2023 EGA:19w3d ??correspond ?? SURVEY Visualized with normal appearance: Lateral Ventricle, Choroid Plexus, Cisterna Magna, Cerebellum, Midline Falx, Cavum Septum Pellucidum, Face, Nose/Lips , Profile, RVOT, Kidneys, Stomach, Diaphragm, Abdominal Cord Insertion, Bladder, Arms, Legs, and Gender: Female Not visualized on today? s ultrasound: 4 Chamber Heart, RVOT, and Spine ?? MATERNAL ANATOMY Cervix: The cervix appears long and closed. Cervical Length: 4.40cm ?? Right Ovary: Not visualized Left Ovary: Not visualized Complete obstetrical ultrasound using realtime transabdominal scanning. Corresponding menstrual and sonographic dates. Four chamber heart view, left ventricular outflow tract and spine not well seen. Maternal uterus appears Normal Maternal ovaries were not visualized. Placenta is anterior. Amniotic fluid assessment is: Normal. 1. Recommend follow-up ultrasound in 2 weeks to re-evaluate four chamber heart view, left ventricular outflow tract and spine not well seen. 2. Otherwise, no other gross anomalies observed. anomalies may be present but not detected. Godwin Latham MD FACOG Obstetrics and Gynecology [facility] Ino Robbins MD IMG US ORDERAB LES documented in this encounter Visit Diagnoses Diagnosis Encounter for supervision of other normal in second trimester documented in this encounter Additional Health Concerns Assessment Noted Time PHQ-9 Depression Total Score: 19 021 3:52 PM CDT documented as of this encounter Care Teams Service Desk Specialist Relationship Specialty Start Date End Date Abbey Bagley PA-C [employer] [address] [address] PCP - General Physician Welding Machine Operator Electroslag 08/15/20 Abbey Bagley PA-C [employer] [address] [facility] [address] [place] [address] Physician Welding Machine Operator Electroslag 04/11/20 05/02/23 [place] [address] [place] [address] Assigned OBGYN Provider 12/04/22 documented as of this encounter
--- OUTSIDE RECORDS SUMMARY | 2023-10-20 07:14 | XMS_ITS | Encounter Summary ---
Author Name Unknown Organization [facility] Address [facility] [place] [address] Care Team Providers Care Genetic Counsellor Name Role Phone Abbey Bagley PA-C Unavailable Abbey Bagley PA-C Primary Care Provider Ino Robbins MD Unavailable Azul Gilman DO Unavailable [phone] Kelley Diane DO Unavailable [phone] Ino Robbins MD Unavailable [phone] Reason for Visit * Reason Onset Date Comments Refill Request 04/02/2021 Encounter Details Date Type Department Care Team (Late st Contact Info) Description 04/02/2021 MyC Refill Initial Department Abbey Bagley PA-C [employer] [address] [id number] Refill Request Social History Tobacco Use Types Packs/Day Years Used Date Smoking Tobacco: Every Day Cigarettes 0.3 Smokeless Tobacco: Never Alcohol Use Standard Drinks/Week Comments Not Currently 0 (1 standard drink = 0.6 oz pur e alcohol) Seldom PHQ-2 Answer Date Recorded PHQ-2 Score 6 02/19/2021 [place] Depression Scale Answer Date Recorded [place] Depression Score 13 03/10/2021 Last EPDS Self [...] documented as of this encounter Care Teams Genetic Counsellor Relationship Specialty Start Date End Date Abbey Bagley PA-C [employer] [address] [address] PCP - General Physician Acquisition Consultant 08/15/20 Abbey Bagley PA-C [employer] [place] [address] [facility] [address] [place] [address] Physician Acquisition Consultant 04/11/20 05/02/23 Ino Robbins MD [address] [place], [place] [address] Assigned OBGYN Provider 03/08/21 Azul Gilman DO [address] [place] [address] Assigned Heart and Vascular Provider 03/08/21 09/10/22 [place] [address] [place] [address] Assigned OBGYN Provider 12/04/22 Ino Robbins MD [address] [place] [address] Assigned OBGYN Provider 01/01/23 documented as of this encounter
--- OUTSIDE RECORDS SUMMARY | 2023-10-20 07:14 | XMS_ITS | Encounter Summary ---
Author Name Unknown Organization [place] Address [address] [facility] [place] [address] Care Team Providers Care Agronomy Supervisor Name Role Phone Abbey Bagley PA-C Unavailable [phone] Abbey Bagley PA-C Primary Care Provider [phone] Kelley Diane DO Unavailable [phone] Ino Robbins MD Unavailable Encounter Details Date Type Department Care Team (Late st Contact Info) Description 12/07/2022 [facility] [place] [facility] Adv[facility] [address] [place] [address] Diana Rainey RN Social History Tobacco Use Types Packs/Day Years Used Date Smoking Tobacco: Some Days Cigarettes 0.3 Smokeless Tobacco: Never Alcohol Use Standard Drinks/Week Comments Not Currently 0 (1 standard drink = 0.6 oz pur e alcohol) Seldom PHQ-2 Answer Date Recorded PHQ-2 Score 2 11/26/2022 [place] Depression Scale Answer Date Recorded [place] Depression Score 13 03/10/2021 Last EPDS Self [...] Coronavirus/COVID-19? No / Unsure 11/26/2022 1:26 PM MACHINE MAINTENANCE MECHANIC documented as of this encounter Plan of Treatment Not on file documented as of this encounter Visit Diagnoses Not on filedocumented in this encounter Additional Health Concerns Assessment Noted Time PHQ-9 Depression Total Score: 19 021 3:52 PM CDT documented as of this encounter Care Teams Agronomy Supervisor Relationship Specialty Start Date End Date Abbey Bagley PA-C [employer] [address] [facility] [address] [place] [address] PCP - General Physician Auto Design Checker 08/15/20 Abbey Bagley PA-C [employer] [place] [address] [place] [address] Physician Auto Design Checker 04/11/20 05/02/23 [place] [address] [place] [address] Assigned OBGYN Provider 12/04/22 Ino Robbins MD [address] [place] [address] Assigned OBGYN Provider 01/01/23 documented as of this encounter
--- OUTSIDE RECORDS SUMMARY | 2023-10-20 07:14 | XMS_ITS | Encounter Summary ---
Author Name Unknown Organization [place] Address [address] [facility] [place] [address] Care Team Providers Care Software Installer Name Role Phone Abbey Bagley PA-C Unavailable [phone] Abbey Bagley PA-C Primary Care Provider [phone] Reason for Referral * Diagnostic Imaging Ultrasound (Routine) - Pending Review Specialty Diagnoses / Procedures Referred By Bernardo t Referred To Contact Radiology. Diagnoses Encounter for supervision of other normal in second trimester Procedures US OB > 14 Weeks Ino Robbins MD [address] [place] [address] Referral ID Status Reason Start Date Expiration Date V isits Requested Visits Authorized [id number] Pending Review 11/23/2022 11/23/2023 1 1 GATION DOCKET MANAGER Reason for Visit * Reason Comments Care New Nurse Doyle villalobos Visit Encounter Details Date Type Department Care Team (Latest Contact Info) Description 11/23/2022 2:15 PM LITIGATION DOCKET MANAGER Office Visit [address] [place] [address] Encounter for supervision of other normal in second trimester (Primary Dx) Social History Tobacco Use Types Packs/Day Years Used Date Smoking Tobacco: Some Days Cigarettes 0.3 Smokeless Tobacco: Never Tobacco Cessation:Ready to Q uit: Not Asked; Counseling Given: Not Answered Alcohol Use Standard Drinks/Week Comments Not Currently 0 (1 standard drink = 0.6 oz pur e alcohol) Seldom PHQ-2 Answer Date Recorded PHQ-2 Score 2 11/23/2022 [place] Depression Scale Answer Date Recorded [place] Depression Score 13 03/10/2021 Last EPDS Self [...] suspected to have Coronavirus/COVID-19? No / Unsure 11/17/2022 6:32 PM LITIGATION DOCKET MANAGER documented as of this encounter Progress Notes * Di Sher RN - 11/23/2022 2:15 PM CST Chief Complaint Patient presents with ??? Care New Nurse Telephone Visit [id number] Initial LMP 07/30/2022 (Exact Date) Estimated body mass index is 30.85 kg/m?? as calculated from the following: Height as of 11/04/22: 1.702 m (5' 7). Weight as of 11/04/22: 89.4 kg (197 lb). BP completed using cuff size: NA (Not Taken) Questioned patient about current smoking habits. Pt. currently smokes. Advised about smoking cessation. NPN nurse visit done over the phone. Pt will be given NPN folder and book at her upcoming appt. Discussed optional screening available to assess chromosomal anomalies. Questions answered. Pt advised to call the clinic if she has any questions or concerns related to her . labs will be obtained at her upcoming appt. New visit scheduled on 11/26/[address] Diane. No results found for: PAP Patient supplied answers from flow sheet for: OB Questionnaire. Past Medical History Have you ever recieved care for your mental health? : (!) Yes Have you ever been in a major accident or suffered serious trauma?: No Within the last year, has anyone hit, slapped, kicked or otherwise hurt you?: No In the last year, has anyone forced you to have sex when you didn't want to?: No Past Medical History 2 Have you ever received a blood transfusion?: No Would you accept a blood transfusion if was medically recommended?: Yes Does anyone in your home smoke?: (!) Yes (FOB smokes outside the home) Is your blood type Rh negative?: No Have you ever breastfed?: (!) Yes Have you been hospitalized for a nonsurgical reason excluding normal delivery?: No Have you ever had an abnormal pap smear?: No Past Medical History (Continued) Do you have a history of abnormalities of the uterus?: No Did your mother take FORD or any other hormones when she was with you?: No Do you have any other problems we have not asked about which you feel may be important to this ?: No Di Sher RN GATION DOCKET MANAGER documented in this encounter Plan of Treatment Not on file documented as of this encounter Results * US OB > 14 Weeks (12/13/2022 11:50 AM LITIGATION DOCKET MANAGER) Anatomical Region Laterality Modality Abdomen/Pelvis Ultrasound Narrative 12/13/2022 1:08 PM LITIGATION DOCKET MANAGER Table formatting from the original result was not included. [facility] Obstetrics and Gynecology ?? ULTRASOUND - OB [...] Godwin Latham MD FACOG Obstetrics and Gynecology [facility] Ino Robbins MD [facility] US ORDERAB LES * Urine Culture Aerobic Bacterial (11/26/2022 2:37 PM LITIGATION DOCKET MANAGER) Culture 10,000-50,000 CFU/mL Mixture of urogenital chely RHIANNA 11/28/2022 10:50 AM LITIGATION DOCKET MANAGER [facility] Urine MID-STREAM URINE SPECIMEN / Unknown Non-blood Collection / Unknown 11/26/2022 2:37 PM LITIGATION DOCKET MANAGER 11/26/2022 2:37 PM LITIGATION DOCKET MANAGER Kelley Diane DO LAB - MICRO GENER AL ORDERABLES [facility] Inf. Diseases Diag. Lab [address] [facility], [address] [place] [address], [facility] [phone] * Hepatitis C antibody (11/26/2022 2:16 PM LITIGATION DOCKET MANAGER) Hepatitis C Antibody Nonreactive Nonreactive 11/27/2022 2:46 PM LITIGATION DOCKET MANAGER SPECIALTY CORE/PROT/EN DO Blood BLOOD SPECIMEN / Unknown Venipuncture / Unknown 11/26/2022 2:16 PM LITIGATION DOCKET MANAGER 11/26/2022 2:28 PM LITIGATION DOCKET MANAGER Narrative SPECIALTY CORE/PROT/ENDO - 11/27/2022 2:46 PM LITIGATION DOCKET MANAGER Assay performance characteristics have not been established for newborns, infants, and children. Kelley Diane DO LAB - BLOOD ORDER BROOKE SPECIALTY CORE/PROT/ENDO Specialty Core/Prot/Endo [address] [facility], [address] [place] [address], [facility] [phone] * Treponema Abs w Reflex to RPR and Titer (11/26/2022 2:16 PM LITIGATION DOCKET MANAGER) Treponema Antibody Total Nonreactive Nonreactive 11/27/2022 10:22 AM LITIGATION DOCKET MANAGER SPECIALTY CORE/PROT/EN DO Blood BLOOD SPECIMEN / Unknown Venipuncture / Unknown 11/26/2022 2:16 PM LITIGATION DOCKET MANAGER 11/26/2022 2:28 PM LITIGATION DOCKET MANAGER Kelley Diane DO LAB - BLOOD ORDER BROOKE [facility] SPECIALTY CORE/PROT/ENDO UM Specialty Core/Prot/Endo [address] [facility] [address], [address] [place] [address], [facility] [phone] * Rubella Antibody IgG Quantitative (11/26/2022 2:16 PM LITIGATION DOCKET MANAGER) Rubella Isabelle IgG Instrument Value 3.93 <0.90 Index 11/29/2022 12:01 PM LITIGATION DOCKET MANAGER UM SPECIALTY CORE/PROT/END O Rubella Antibody IgG Positive 11/29/2022 12:01 PM LITIGATION DOCKET MANAGER SPECIALTY CORE/PROT/END O Comment:Suggests previous ex posure or immunization and probable immunity. Blood BLOOD SPECIMEN / Unknown Venipuncture / Unknown 11/26/2022 2:16 PM LITIGATION DOCKET MANAGER 11/26/2022 2:27 PM LITIGATION DOCKET MANAGER Kelley Diane DO LAB - BLOOD ORDER BROOKE UM SPECIALTY CORE/PROT/ENDO UM Specialty Core/Prot/Endo [address] [facility] [address], [address] [place] [address], [facility] [phone] * HIV Antigen Antibody Combo (11/26/2022 2:16 PM LITIGATION DOCKET MANAGER) HIV Antigen Antibody Combo Nonreactive Nonreactive 11/27/2022 2:46 PM LITIGATION DOCKET MANAGER UM SPECIALTY CORE/PROT/EN DO Comment:HIV-1 p24 Ag & HIV-1 /HIV-2 Ab Not Detected Blood BLOOD SPECIMEN / Unknown Venipuncture / Unknown 11/26/2022 2:16 PM LITIGATION DOCKET MANAGER 11/26/2022 2:28 PM LITIGATION DOCKET MANAGER Kelley Diane DO LAB - BLOOD ORDER BROOKE UM SPECIALTY CORE/PROT/ENDO UM Specialty Core/Prot/Endo [address] [facility] [address], [address] [place] [address], [facility] [phone] * Hepatitis B surface antigen (11/26/2022 2:16 PM LITIGATION DOCKET MANAGER) Hepatitis B Surface Antigen Nonreactive Nonreactive 11/27/2022 2:46 PM LITIGATION DOCKET MANAGER UM SPECIALTY CORE/PROT/EN DO Blood BLOOD SPECIMEN / Unknown Venipuncture / Unknown 11/26/2022 2:16 PM LITIGATION DOCKET MANAGER 11/26/2022 2:28 PM LITIGATION DOCKET MANAGER Kelley Diane DO LAB - BLOOD ORDER BROOKE UM SPECIALTY CORE/PROT/ENDO UM Specialty Core/Prot/Endo [address] [facility] [address] [facility], [address] [phone] documented in this encounter Visit Diagnoses Diagnosis Encounter for supervision of other normal in second trimester- Primary Encounter for supervision of other normal in second trimester documented in this encounter Additional Health Concerns Assessment Noted Time PHQ-9 Depression Total Score: 19 021 3:52 PM CDT documented as of this encounter Care Teams Software Installer Relationship Specialty Start Date End Date Abbey Bagley PA-C [employer] [address] [address] PCP - General Physician Steward/Stewardess Dining Room 08/15/20 Abbey Bagley PA-C [employer] [place] [address] [place] [address] Physician Steward/Stewardess Dining Room 04/11/20 05/02/23 documented as of this encounter
--- OUTSIDE RECORDS SUMMARY | 2023-10-20 07:14 | XMS_ITS | Encounter Summary ---
Author Name Unknown Organization [place] Address [address] [place] [address] Care Team Providers Care Vp Of Customer Experience Strategy Name Role Phone Abbey Bagley PA-C Unavailable [phone] Abbey Bagley PA-C Primary Care Provider + [phone] Ino Robbins MD Unavailable + [phone] Encounter Details Date Type Department Care Team (Latest Contact Info) Description 11/17/2022 Travel Social History Tobacco Use Types Packs/Day Years Used Date Smoking Tobacco: Every Day Cigarettes 0.3 Smokeless Tobacco: Never Alcohol Use Standard Drinks/Week Comments Not Currently 0 (1 standard drink = 0.6 oz pur e alcohol) Seldom PHQ-2 Answer Date Recorded PHQ-2 Total Score (Adult) - Positive if 3 or more points; Administer PHQ-9 if positive 2 11/17/2022 [place] Depression Scale Answer Date Recorded [place] Depression Score 13 03/10/2021 Last EPDS Self [...] Coronavirus/COVID-19? No / Unsure 11/17/2022 6:32 PM DIRECTOR OF PUBLIC HEALTH documented as of this encounter Plan of Treatment Not on file documented as of this encounter Visit Diagnoses Not on filedocumented in this encounter Additional Health Concerns Assessment Noted Time PHQ-9 Depression Total Score: 19 021 3:52 PM CDT documented as of this encounter Care Teams Vp Of Customer Experience Strategy Relationship Specialty Start Date End Date Abbey Bagley PA-C [employer] [address] [address] PCP - General Physician Ramp Lead 08/15/20 Abbey Bagley PA-C [employer] [address] [facility] [address] [place] [address] Physician Ramp Lead 04/11/20 05/02/23 Ino Robbins MD [address] [place] [address] Assigned OBGYN Provider 03/08/21 documented as of this encounter
--- OUTSIDE RECORDS SUMMARY | 2023-10-20 07:14 | XMS_ITS | Encounter Summary ---
Author Name Unknown Organization [place] Address [address] [place] [address] Care Team Providers Care Legal Billing Coordinator Name Role Phone Abbey Bagley PA-C Unavailable [phone] Abbey Bagley PA-C Primary Care Provider + [phone] Kelley Diane DO Unavailable [phone] Encounter Details Date Type Department Care Team (Latest Contact Info) Description 12/24/2022 Travel Social History Tobacco Use Types Packs/Day Years Used Date Smoking Tobacco: Some Days Cigarettes 0.3 Smokeless Tobacco: Never Alcohol Use Standard Drinks/Week Comments Not Currently 0 (1 standard drink = 0.6 oz pur e alcohol) Seldom PHQ-2 Answer Date Recorded PHQ-2 Score 2 11/26/2022 [place] Depression Scale Answer Date Recorded [place] Depression Score 13 03/10/2021 Last EPDS Self [...] suspected to have Coronavirus/COVID-19? No / Unsure 12/24/2022 1:32 PM CDT documented as of this encounter Plan of Treatment Not on file documented as of this encounter Visit Diagnoses Not on filedocumented in this encounter Additional Health Concerns Assessment Noted Time PHQ-9 Depression Total Score: 19 05/14/ 021 3:52 PM CDT documented as of this encounter Care Teams Legal Billing Coordinator Relationship Specialty Start Date End Date Abbey Bagley PA-C [employer] [address] [facility] [address] [place] [address] PCP - General Physician Demurrage Agent 08/15/20 Abbey Bagley PA-C [employer] [place] [address] [place] [address] Physician Demurrage Agent 04/11/20 05/02/23 [place] [address] [place] [address] Assigned OBGYN Provider 12/04/22 documented as of this encounter
--- OUTSIDE RECORDS SUMMARY | 2023-10-20 07:14 | XMS_ITS ---
Author Name Unknown Organization [place] Address [address] [place] [address] Care Team Providers Care Service Loss Control Consultant Name Role Phone Abbey Bagley PA-C Primary Care Provider + [phone] Ino Robbins MD Unavailable + [phone] Transitional Care Management Status:Closed (Closed) Start date:05/05/2023 End date:05/05/2023 Continued Care and Services Coordination
--- OUTSIDE RECORDS SUMMARY | 2023-10-20 07:14 | XMS_ITS | Encounter Summary ---
Author Name Unknown Organization [place] Address [address] [place] [address] Care Team Providers Care General Merchandise Manager Name Role Phone Abbey Bagley PA-C Unavailable [phone] Abbey Bagley PA-C Primary Care Provider + [phone] Ino Robbins MD Unavailable + [phone] Encounter Details Date Type Department Care Team (Latest Contact Info) Description 11/04/2022 Travel Social History Tobacco Use Types Packs/Day Years Used Date Smoking Tobacco: Every Day Cigarettes 0.3 Smokeless Tobacco: Never Alcohol Use Standard Drinks/Week Comments Not Currently 0 (1 standard drink = 0.6 oz pur e alcohol) Seldom PHQ-2 Answer Date Recorded PHQ-2 Score 4 05/14/2021 [place] Depression Scale Answer Date Recorded [place] Depression Score 13 03/10/2021 Last EPDS Self [...] Coronavirus/COVID-19? No / Unsure 11/04/2022 3:04 PM ECONOMIC SPECIALIST documented as of this encounter Plan of Treatment Not on file documented as of this encounter Visit Diagnoses Not on filedocumented in this encounter Additional Health Concerns Assessment Noted Time PHQ-9 Depression Total Score: 19 021 3:52 PM CDT documented as of this encounter Care Teams General Merchandise Manager Relationship Specialty Start Date End Date Abbey Bagley PA-C [employer] [address] [place] [address] PCP - General Physician Supervisor Agricultural Education 08/15/20 Abbey Bagley PA-C [employer] [address] [place] [address] Physician Supervisor Agricultural Education 04/11/20 05/02/23 Ino Robbins MD [address] [place], [place] [address] Assigned OBGYN Provider 03/08/21 documented as of this encounter
--- OUTSIDE RECORDS SUMMARY | 2023-10-20 07:14 | XMS_ITS | Encounter Summary ---
Author Name Unknown Organization [place] Address [address] [place] [address] Care Team Providers Care Post Framer Name Role Phone Abbey Bagley PA-C Unavailable [phone] Abbey Bagley PA-C Primary Care Provider Kelley Diane DO Unavailable [phone] Ino Robbins MD Unavailable Encounter Details Date Type Department Care Team (Late st Contact Info) Description 11/22/2022 MyC Medical Advice [address] [place] [address] Di Sher RN Social History Tobacco Use Types Packs/Day Years Used Date Smoking Tobacco: Every Day Cigarettes 0.3 Smokeless Tobacco: Never Alcohol Use Standard Drinks/Week Comments Not Currently 0 (1 standard drink = 0.6 oz pur e alcohol) Seldom PHQ-2 Answer Date Recorded PHQ-2 Score 2 11/26/2022 [place] Depression Scale Answer Date Recorded [place] Depression Score 13 03/10/2021 Last EPDS Self [...] Coronavirus/COVID-19? No / Unsure 11/17/2022 6:32 PM EMPLOYMENT AND CLAIMS AIDE documented as of this encounter Plan of Treatment Not on file documented as of this encounter Visit Diagnoses Not on filedocumented in this encounter Additional Health Concerns Assessment Noted Time PHQ-9 Depression Total Score: 19 021 3:52 PM CDT documented as of this encounter Care Teams Post Framer Relationship Specialty Start Date End Date Abbey Bagley PA-C [employer] [address] [address] PCP - General Physician Firefighter Type One 08/15/20 Abbey Bagley PA-C [employer] [place] [address] [facility] [address] [place] [address] Physician Firefighter Type One 04/11/20 05/02/23 [place] [address] [place] [address] Assigned OBGYN Provider 12/04/22 Ino Robbins MD [address] [place] [address] Assigned OBGYN Provider 01/01/23 documented as of this encounter
--- OUTSIDE RECORDS SUMMARY | 2023-10-20 07:14 | XMS_ITS | Encounter Summary ---
Author Name Unknown Organization [place] Address [address] [place] [address] Care Team Providers Care Senior Core Java Developer Name Role Phone Abbey Bagley PA-C Unavailable [phone] Abbey Bagley PA-C Primary Care Provider + [phone] Kelley Diane DO Unavailable [phone] Encounter Details Date Type Department Care Team (Latest Contact Info) Description 12/12/2022 Travel Social History Tobacco Use Types Packs/Day Years Used Date Smoking Tobacco: Some Days Cigarettes 0.3 Smokeless Tobacco: Never Alcohol Use Standard Drinks/Week Comments Not Currently 0 (1 standard drink = 0.6 oz pur e alcohol) Seldom PHQ-2 Answer Date Recorded PHQ-2 Score 2 11/26/2022 [place] Depression Scale Answer Date Recorded [place] Depression Score 13 03/10/2021 Last EPDS Self [...] suspected to have Coronavirus/COVID-19? No / Unsure 12/12/2022 12:48 PM PEARL RESTORER documented as of this encounter Plan of Treatment Not on file documented as of this encounter Visit Diagnoses Not on filedocumented in this encounter Additional Health Concerns Assessment Noted Time PHQ-9 Depression Total Score: 19 021 3:52 PM CDT documented as of this encounter Care Teams Senior Core Java Developer Relationship Specialty Start Date End Date Abbey Bagley PA-C [employer] [address] [facility] [address] [place] [address] PCP - General Physician [facility] 08/15/20 Abbey Bagley PA-C [employer] [place] [address] [place] [address] Physician [facility] 04/11/20 05/02/23 [place] [address] [place] [address] Assigned OBGYN Provider 12/04/22 documented as of this encounter
--- OUTSIDE RECORDS SUMMARY | 2023-10-20 07:14 | XMS_ITS | Encounter Summary ---
Author Name Unknown Organization [place] Address [address] [facility] [place] [address] Care Team Providers Care Carrier Blower Name Role Phone Abbey Bagley PA-C Unavailable [phone] Abbey Bagley PA-C Primary Care Provider [phone] Kelley Diane DO Unavailable [phone] Ino Robbins MD Unavailable Encounter Details Date Type Department Care Team (Late st Contact Info) Description 11/23/2022 MyC Medical Advice [address] [place] [phone] Di Sher RN Social History Tobacco Use Types Packs/Day Years Used Date Smoking Tobacco: Some Days Cigarettes 0.3 Smokeless Tobacco: Never Alcohol Use Standard Drinks/Week Comments Not Currently 0 (1 standard drink = 0.6 oz pur e alcohol) Seldom PHQ-2 Answer Date Recorded PHQ-2 Score 2 11/26/2022 [place] Depression Scale Answer Date Recorded [place] Depression Score 13 03/10/2021 Last EPDS Self [...] Coronavirus/COVID-19? No / Unsure 11/26/2022 1:26 PM DATA SECURITY ANALYST documented as of this encounter Plan of Treatment Not on file documented as of this encounter Visit Diagnoses Not on filedocumented in this encounter Additional Health Concerns Assessment Noted Time PHQ-9 Depression Total Score: 19 021 3:52 PM CDT documented as of this encounter Care Teams Carrier Blower Relationship Specialty Start Date End Date Abbey Bagley PA-C [employer] [address] [facility] [address] [place] [address] PCP - General Physician Theatrical Rigger 08/15/20 Abbey Bagley PA-C [employer] [place] [address] [facility] [address] [place] [address] Physician Theatrical Rigger 04/11/20 05/02/23 [place] [address] [place] [address] Assigned OBGYN Provider 12/04/22 Ino Robbins MD [address] [place] [address] Assigned OBGYN Provider 01/01/23 documented as of this encounter
--- OUTSIDE RECORDS SUMMARY | 2023-10-20 07:14 | XMS_ITS | Encounter Summary ---
Author Name Unknown Organization [facility] Address [address] [facility] [address] Care Team Providers Care Furnace Tapper Name Role Phone Abbey Bagley PA-C Unavailable [phone] Abbey Bagley PA-C Primary Care Provider Kelley Diane DO Unavailable [phone] Reason for Visit * Reason Comments Care Encounter Details Date Type Department Care Team (Late st Contact Info) Description 12/24/2022 1:30 PM CDT Office Visit [address] [place] [address] Ino Robbins MD [address] [place] [address] care in second trimester (Primary Dx) Social History Tobacco Use Types Packs/Day Years Used Date Smoking Tobacco: Some Days Cigarettes 0.3 Smokeless Tobacco: Never Tobacco Cessation:Ready to Q uit: Not Asked; Counseling Given: Not Answered Alcohol Use Standard Drinks/Week Comments Not Currently 0 (1 standard drink = 0.6 oz pur e alcohol) Seldom PHQ-2 Answer Date Recorded PHQ-2 Score 2 11/26/2022 [place] Depression Scale Answer Date Recorded [place] Depression Score 13 03/10/2021 Last EPDS Self [...] Sign Reading Time Taken Comments Blood Pressure 106/68 12/24/2022 1:41 PM CDT Pulse 76 12/24/2022 1:41 PM CDT irreg ular Temperature - - Respiratory Rate - - Oxygen Saturation - - Inhaled Oxygen Concentration - - Weight 91.2 kg (201 lb) 12/24/2022 1:41 PM CDT Height - - Body Mass Index 31.48 11/04/2022 3:15 PM [employer] documented in this encounter Progress Notes * Ino Robbins MD - 12/24/2022 1:30 PM CDT 22yo at 21w0d. Relocating to [place] at the end of the month. Has noted some left sided pain.No bleeding or cramps. Possibly ovarian etiology but no abnormality seen on recent U/S. Needs follow up U/S to complete anatomic survey prior to move if at all possible. documented in this encounter Plan of Treatment Not on file documented as of this encounter Visit Diagnoses Diagnosis care in second trimester- Primary documented in this encounter Additional Health Concerns Assessment Noted Time PHQ-9 Depression Total Score: 19 021 3:52 PM CDT documented as of this encounter Care Teams Furnace Tapper Relationship Specialty Start Date End Date Abbey Bagley PA-C [facility] [address] [address] PCP - General Physician Company Secretary 08/15/20 Abbey Bagley PA-C [facility] [address] [facility] [address] [place] [address] Physician Company Secretary 04/11/20 05/02/23 [place] [address] [place] [address] Assigned OBGYN Provider 12/04/22 documented as of this encounter
--- NOTE | 2023-10-20 07:15 | CRLHL7_ITS ---
For Patients: As a result of the Century Cures Act, medical imaging exams and procedure reports are released immediately into your electronic medical record. You may view this report before your referring provider. If you have questions, please contact your health care provider. Indication: Headaches, spots in vision, dizziness Technique: Multiplanar, multisequence MRI of the brain obtained without contrast. Comparison: CT head 05/10/2023 Findings: The ventricles and cortical sulci appear within normal limits for age. No hydrocephalus or herniation. No acute/subacute ischemia, intracranial hemorrhage or abnormal extra-axial fluid collection. White matter signal appears within normal limits. Midline structures are unremarkable. Major expected intracranial flow voids are visualized. Bone marrow signal is unremarkable. No suspicious findings in the regional soft tissues. Mild ethmoid air cell mucosal thickening. No paranasal sinus air-fluid level or mastoid effusion. Unremarkable orbits. Impression: 1. Unremarkable MRI brain. No evidence of acute intracranial abnormality. Dictated by Kelley Stephens MD @ 10/20/2023 8:34:57 AM (Electronically Signed)
--- OUTSIDE RECORDS SUMMARY | 2023-10-20 07:15 | XMS_ITS | Clinical Summary ---
Author Name Unknown Organization [facility] Address [place], [place] [address] Care Team Providers Care Canvas Cutter Hand Name Role Phone Staff, Other Clinical Primary Care Provider Unav ailable Allergies No known active allergies Medications Medication Sig Dispensed Refills Start Date End Date Status multivitamin () 27 mg iron- 800 mcg folic Take 1 tablet by mouth once daily with a meal. 0 07/08/2020 Active albuterol HFA (PRO-AIR; VENTOLIN; PROVENTIL) 90 mcg/actuation inhalerIndications:M ild intermittent asthma without complication Inhale 2 Puffs by mouth 4 times daily if needed. 6.7 Each 12 06/01/2021 Active ibuprofen (ADVIL; MOTRIN) 600 mg tablet Take 600 mg by mouth every 6 hours if needed for Pain. 0 Active ferrous sulfate 325 mg delayed release tablet Take 325 mg by mouth once daily. 0 Active QUEtiapine (SEROQUEL) 25 mg tabletIndications:PT SD (post-traumatic stress disorder),Brief psychotic disorder (HC) Take one-half tablet (12.5 mg) by mouth two times daily. 14 Tablet 0 05/07/2023 Active QUEtiapine (SEROQUEL) 50 mg tabletIndications:PT SD (post-traumatic stress disorder),Brief psychotic disorder (HC) Take 1 Tablet (50 mg) by mouth at bedtime. Refills per primary care provider / outpatient providers 14 Tablet 0 05/07/2023 Active NIFEdipine (PROCARDIA XL) 30 mg extended-release tablet Take 1 Tablet (30 mg) by mouth once daily before a meal. 0 05/11/2023 Active OLANzapine (ZyPREXA) 5 mg tablet Take 5 mg by mouth at bedtime. 0 Active Active Problems Problem Noted Date Diagnosed Date Acute encephalopathy 05/07/2023 Eclampsia 05/05/2023 History of depression 05/05/2023 Depression 09/21/2022 Overview: Sertraline. Past trial: lexapro (not effective) Bipolar disorder 10/21/2021 Chronic GERD 01/24/2020 PTSD (post-traumatic stress disorder) 08/10/2016 Generalized anxiety disorder 08/10/2016 Panic disorder 08/10/2016 Vitamin D deficiency Iron deficiency Mild intermittent asthma Overview: albuterol as needed 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 Resolved Problems Problem Noted Date Diagnosed Date Resolved Date Depression 09/21/2022 09/21/2022 Overview: on fluoxetine. Past trial: lexapro (not effective) Club foot of fetus affecting antepartum care of mother 01/13/2021 06/24/2021 Echogenic intracardiac focus of fetus on ultrasound 01/13/2021 06/24/2021 , supervision, normal, first 08/04/2020 06/24/2021 Subchorionic hemorrhage of p lacenta in first trimester 07/31/2020 06/24/2021 Reactive airway disease 01/24/202006/11 Herpes simplex virus (HSV) infection 09/09/2019 09/21/2022 Vitamin D insufficiency 08/11/201606/11 Overweight 02/19/2014 07/01/2020 Encounter for insertion of mirena IUD 02/05/2005 06/24/2021 BRANDON (generalized anxiety disorder) 01/24/2020 Immunizations Name Administration Dates Next Due COVID-19 vaccine ([employer] 30mcg/0.3mL) PF, MDV 2021 DTaP 05/23/2007, 7,08/27/2004,08/27,2002,2002 [id number] (Pediarix) 07/16/2004,07/16/2004 HIB PRP-OMP (PedvaxHIB) 07/16/2004 HIB PRP-T (ActHIB,Hiberix) 07/16/2004,2002 HPV 9 (Gardasil 9) 10/21/2021,07/01/2020 Hep B (Hepatitis B (Adult) R ecombinant Adjuvanted) 07/08/2022 Hepatitis A (Peds) 02/19/2014,05/23/2007, 007 Hepatitis B (Peds) 2002, 2,2002,05/22 Hepatitis B, Unspecified 2002 Hib Conjugate, Unspecified 07/16/2004,2002 Inactivated Polio Vaccine 05/23/2007,,08/27/2004,08/27,2002,2002 Influenza Virus, Unspecified 10/21/2021,08/27/20 04 Influenza, IIV3 (Age >=3 years) 08/27/2004 Influenza, IIV4 10/21/2021,07/01/2020,08/20/2008 Influenza,LAIV4 Live Intrana dee (Flumist) 08/20/2008,08/20/2008 MMR 05/23/2007, 7,07/16/2004,07/16 Meningococcal Vaccine (Menveo) 11/27/2019,2013 Meningococcal, Unspecified 02/19/2014 Pneumococcal conj 7-Valent (Prevnar 7) 1 ,07/16/2004,2002,08/20 Pneumococcal, Unspecified 07/16/2004,2002 Tdap 01/01/2021,02/19/2014 Family History Medical History Relation Name Comments Good Health Brother bad vision Emphysema Father Good Health Father No Known Problems Maternal Grandfather No Known Problems Maternal Grandmother Good Health Mother Good Health Paternal Grandfather Emphysema Paternal Grandmother Good Health Sister half Relation Name Status Comments Brother Alive bad vision Father Alive Maternal Grandfather Alive Maternal Grandmother Alive Mother Alive Paternal Grandfather Alive Paternal Grandmother Alive Sister half Alive Son 2020 Alive Social History Tobacco Use Types Packs/Day Years Used Date Smoking Tobacco: Former Cigarettes 0.3 5 S tarted: 2019 Smokeless Tobacco: Former Tobacco Cessation:Counseling Given: Not Answered Comments:4 per day Alcohol Use Standard Drinks/Week Comments Not Currently 0 (1 standard drink = 0.6 oz pur e alcohol) twice/year PHQ-2 Answer Date Recorded PHQ-2 TOTAL SCORE 6 09/21/2022 Social Connections Answer Date Recorded Frequency of Communication with Friends and Fami ly 0 05/11/2023 Financial Resource Strain Answer Date R ecorded Difficulty of Paying Living Expenses 3 05/11/2023 Difficulty of Paying Living Expenses Not on file 05/11/2023 Food Insecurity Answer Date Recorded Worried About Running Out of Food in the Last Ye ar 1 05/11/2023 Transportation Needs Answer Date Record ed Lack of Transportation (Medical) 1 05/11/2023 Housing Stability Answer Date Recorded Unable to Pay for Housing in the Last Year 1 05/11/2023 Sex and Gender Information Value Date Recorded Sex Assigned at Not on file Gender Identity Not on file Sexual Orientation Not on file Obstetrics History Para Term AB IAB SAB Ectopic Multiple Livin g Live Births 2 2 2 2 2 Date Outcome GA Total Labor Labor/2nd/3rd Weight Sex Delivery Anes PTL Heather A1 A5 Name Cl in 03/09 Term 38w 2d 5h 55m 5h 20m/0h 32m/0h 03m 2.86 kg (6 lb 4.9 oz) M Vag-Vacuu m Epidu ral N Elodia ng 8 9 Ryan min Austin Ledezma MD Complications: Intolera nce Delivery Location:[facility]) 05/03 Term 39w 3d Vag Elodia ng Last Filed Vital Signs Vital Sign Reading Time Taken Comments Blood Pressure 125/79 06/05/2023 8:00 AM CDT Pulse 84 06/05/2023 8:00 AM CDT Temperature 36.9 ??C (98.4 ??F) 06/05/2023 3:26 AM CD T Respiratory Rate 20 06/05/2023 3:26 AM CDT Oxygen Saturation 98% 06/05/2023 8:00 AM CDT Inhaled Oxygen Concentration - - Weight 88 kg (194 lb) 06/05/2023 3:26 AM CDT Height 170.2 cm (5' 7) 06/05/2023 3:26 AM CDT Body Mass Index 30.38 06/05/2023 3:26 AM CDT Plan of Treatment Health Maintenance Due Date Last Done Comments Pneumococcal series for age 6-64 (1 of 2 - PCV) 2008 07/16/2004, 07/16/2004, 07/16/2004, Additional history exists HPV series for age 9-26 (3 - 3-dose series) 01/13/2022 10/21/2021, 07/01/2020 Pap test for age 21-65 2023 COVID-19 vaccine series ( season) 2023 09/30/2021, 2021 Influenza for age 9-49 06/10/2023 , 10/21/2021, 07/01/2020, Additional history exists Chlamydia for age 16-24 09/21/2023 09/21/20, 09/11/2020, 07/01/2020, Additional history exists Depression screening for age 12+ 09/24/2023 09/24/2022, 09/22/2022, 09/22/2022, Additional history exists BMI (ht and wt on same day) for age 18+ 05/11/2024 05/11/2023, 09/21/2022, 06/01/2021, Additional history exists Tetanus booster 01/01/2031 01/01/2021, 02/19/2014 Meningococcal series for age 11-21 Completed 11/27/2019, 02/19/2014, 02/19/2014 HIV for age 15-65 Completed 09/11/2020, , 07/05/2016 Hepatitis C screening for ag e 18-79 Completed 09/11/2020, 07/05/2016 Tdap Completed 01/01/2021, 02/19/2014 Goals Goal Patient Goal Type Associated Problems Recent Progress Patient-Stated? Author Transportation - Increase reliability General Yes Praful Orozco, INDEPENDENT PRODUCER, [employer] MACHINE Note: Goal identified during: Initial Screening Status: Unresolved, Result: Attempt Failed Barriers to goal achievement: Financial. Patient has a vehicle of her own, however this mode of transportation is not reliable. Patient steps toward goal achievement: The patient will be calling the resources she received via text from the [facility] in order to begin addressing her identified social needs. Navigator steps to support goal achievement: The [facility]W will be contacting the patient for a follow-up in two weeks to review her [facility] goals and get a status update on the outcome of her communication with resources in the community. Proposed timeline for goal completion: Ongoing until resolved. Notes: None. Date of follow up: 08/04/20 Advance Directives Latest Code Status on File Code Status Date Activated Date Inactivated Comments Full Code 05/06/2023 8:15 AM 05/07/2023 4:11 PM Question Answer Comments Code Status Discussion: Reviewed Preferences Code Status History Code Status Date Activated Date Inactivated Comments Full Code 05/05/2023 11:14 AM 05/06/2023 8:15 AM Question Answer Comments Code Status Discussion: Unable to Assess Preferences, Provider to review later Full Code 08/09/2016 3:46 PM 08/18/2016 1:40 PM Care Teams Canvas Cutter Hand Relationship Specialty Start Date End Date Staff, Other Clinical . PCP - General 06/05/23
== END 2023-10-20 07:04 | disposition home or self-care (01) ==
LOC: MRI 07:04
PROVIDERS: PCP Nurse Practitioner Family; Visit Provider Nurse Practitioner Family
DX: R51.9 Headache, unspecified (principal); B36.0 Pityriasis versicolor; R29.90 Unspecified symptoms and signs involving the nervous system; R42 Dizziness and giddiness; R00.0 Tachycardia, unspecified
CPT/HCPCS: 70551

== ENCOUNTER 2023-10-22 22:27 | Emergency (ER) | payer MEDICAID, SELFPAY ==
[2023-10-22 22:46] VITALS: BP 116/75; PULSE 105; RESP 20; TEMP 36.6; O2SAT 98; BMI 30.5
[2023-10-22] MEDS: ONDANSETRON 2 MG/ML inj 4 MG IVP (23:10)
--- NOTE | 2023-10-22 23:11 | ED.NAVMDI ---
HPI - Nausea/Vomiting/Diarrhea General Time Seen by Provider: 23:11 Date Seen: 10/22/23 Chief complaint: Nausea/Vomiting Stated complaint: vomiting, diarrhea, passed out Time Seen by Provider: 10/22/23 23:11 Source: patient and RN notes reviewed Mode of arrival: ambulatory Limitations: no limitations History of Present Illness HPI Narrative: Merry is a very pleasant 23-year-old female with history of iron deficiency anemia, anxiety who comes to the emergency room for evaluation regarding nausea vomiting diarrhea abdominal pain and passing out. Patient notes the onset of vomiting and diarrhea at approximately 1300 hours earlier today. She notes no blood in either. She has not been able to keep any food or water down. She is feeling lightheaded and while she was sitting on the toilet experiencing diarrhea she had an episode of vomiting and then felt like she passed out. She remembers falling forward onto the floor which had vomit on it. She denies any injury. Immediately her was there to help pick her up clean her up and put her in the shower. She notes she had some shortness of breath earlier but denies any chest pain. She notes no recent travel, antibiotic use. She prepared food at home last night. Her has center attacks that her son is narrow starting to experience similar symptoms. Temp up to 99.1. She did take Tylenol earlier that stay down. Related Data Home Medications Medication Instructions Recorded Confirmed valacyclovir 500 mg tablet 500 mg PO DAILY 05/10/23 10/13/23 (Valtrex) ascorbic acid (vitamin C) 1,000 mg 1 g PO Q6H 06/28/23 10/13/23 tablet ferrous sulfate 325 mg (65 mg 325 mg PO QDAY 06/28/23 10/13/23 iron) tablet (Iron (ferrous sulfate)) lorazepam 1 mg tablet 1 mg PO DAILY PRN 09/28/23 10/13/23 Previous Rx's Medication Instructions Recorded albuterol sulfate 90 mcg/actuation 2 puff inhalation Q4-6H PRN 08/30/23 aerosol inhaler shortness of breath or wheezing #8.5 grams acetaminophen 500 mg tablet 1,000 mg (2 x 500 mg) PO Q6H PRN 09/15/23 Pain #0 tabs Allergies Allergy/AdvReac Type Severity Reaction Status Date / Time tea tree Allergy Mild Verified 10/13/23 08:34 adhesive Allergy Rash Verified 10/13/23 08:34 lamotrigine [From Lamictal] Allergy Verified 10/13/23 08:34 Review of Systems Status of ROS: Reports: 10 or more systems reviewed and unremarkable except as noted in History and below Narrative: Positive for nicotine vaping. Negative for alcohol use. Negative for drug use. [facility] Medical History PTSD (post-traumatic stress disorder) ?F43.10 - Post-traumatic stress disorder, unspecified (ICD-10) Palpitations ?R00.2 - Palpitations (ICD-10) Hypertension ?I10 - Essential (primary) hypertension (ICD-10) Eclampsia ?O15.9 - Eclampsia, unspecified as to time period (ICD-10) Anxiety, generalized ?F41.1 - Generalized anxiety disorder (ICD-10) Migraines ?G43.909 - Migraine, unspecified, not intractable, without status migrainosus (ICD-10) Seizure ?R56.9 - Unspecified convulsions (ICD-10) Family History Maternal Grandfather Heart disease Father Depression Anxiety Alcohol dependence Drug dependence Paternal Grandmother Anxiety Depression Mother Anxiety Depression Diabetes Alcohol dependence Drug dependence Maternal Grandmother Preeclampsia Paternal Grandfather Anxiety Depression Alcohol dependence Eczema Social History Narrative: . 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 The patient vapes. No alcohol. No illicit drug use. What is your current living situation?: I presently have a place to live Problems where you live: no known problems In the past 12 months, utilities in danger of being shut off: no In past 12 months, lack of transportation kept you from medical appts, meetings, work, or getting things needed for daily living: no In the past 12 mos, have been you worried that your food would run out before you had money to buy more?: never true In the past 12 mos, the food you bought just didn't last and you didn't have money to buy more?: never true Smoking Status: Current every day smoker What tobacco products do you use: cigarettes Do you use any of these nicotine containing products: None Second hand tobacco smoke exposure: Yes How often do you have a drink containing alcohol: never How often do you have six or more drinks on one occasion: Never AUDIT-C Alcohol total score: 0 Non-prescribed substance use: denies use Caffeine: Yes How often does anyone, including family, friends and others, physically hurt you: never How often does anyone, including family, friends and others, insult or talk down to you: never How often does anyone, including family, friends and others, threaten you with harm: never How often does anyone, including family, friends and others, scream or curse at you: never Little interest or pleasure in doing things: several days Feeling down, depressed, or hopeless: more than half the days service: No Exam Narrative: Exam Narrative: Alert and oriented. No acute distress. External ears eyes nose clear. Oral cavity with moist mucous membranes but no excessive saliva. Neck is supple. Heart with a tachycardic rate but normal rhythm. Lungs are clear bilaterally. Abdomen soft with generalized discomfort but no acute tenderness. Lower extremities without edema. Moving all extremities. Const: Vital Signs, click to edit/add: Vital Signs - 24 hr 10/22/23 22:46 10/22/23 23:19 10/23/23 00:04 Temperature 97.9 F 97.9 F Pulse Rate [Right Pulse Oximeter] 105 H 95 Pulse Rate [orthos tatic lying Right Pulse Oximeter] 99 Pulse Rate [orthos tatic sitting Righ t Pulse Oximeter] 112 H Pulse Rate [orthos tatic standing Rig ht Pulse Oximeter] 115 H Respiratory Rate 20 20 Blood Pressure [Ri ght Upper Arm] 116/75 123/78 Blood Pressure [or thostatic lying Le ft Arm] 123/82 Blood Pressure [or thostatic sitting Left Arm] 119/83 Blood Pressure [or thostatic standing Left Arm] 130/64 Pulse Oximetry 98 98 Oxygen Delivery Me thod Room Air Room Air Documenting provider has reviewed patient's vital signs: yes Course Course ED Course: Differential diagnosis at this time includes but is not limited to viral gastroenteritis, bacterial food poisoning. Patient will have IV placed with 1 L of normal saline 4 mg of IV Zofran given. Labs to include CBC, comprehensive panel, CRP, lipase. Reevaluation(s) Reevaluation #1: Patient's electrolytes are reassuring. She notes that she is already feeling better. A 2 L of fluid has been hung. Vital Signs Vital signs: Initial Vital Signs Temperature 97.9 F 10/22/23 22:46 Temperature Source Temporal Artery Scan 10/22/23 22:46 Pulse Rate 105 H 10/22/23 22:46 Respiratory Rate 20 10/22/23 22:46 Blood Pressure 116/75 10/22/23 22:46 Blood Pressure Mean 88 10/22/23 22:46 Blood Pressure Position Sitting 10/22/23 22:46 Pulse Oximetry 98 10/22/23 22:46 Oxygen Delivery Method Room Air 10/22/23 22:46 Vital Signs Temperature 97.9 F 10/22/23 22:46 Pulse Rate 105 H 10/22/23 22:46 Respiratory Rate 10/22/23 22:46 Blood Pressure 116/75 10/22/23 22:46 Pulse Oximetry 98 10/22/23 22:46 Oxygen Delivery Method Room Air 10/22/23 22:46 Temperature 97.9 F 10/23/23 00:04 Pulse Rate 95 10/23/23 00:04 Respiratory Rate 10/23/23 00:04 Blood Pressure 123/78 10/23/23 00:04 Pulse Oximetry 98 10/23/23 00:04 Oxygen Delivery Method Room Air 10/23/23 00:04 Medications Administered Medications: Generic Name Dose Route Start Last Admin Trade Name Freq PRN Reason Stop Dose Admin Sodium Chloride 1,000 mls @ 1,000 mls/hr 10/22/23 23:20 10/22/23 23:55 0.9 % Sodium Chloride 1000 Ml IV 10/23/23 00:19 Infused .Q1H JAYDON Infusion Sodium Chloride 1,000 mls @ 1,000 mls/hr 10/22/23 23:38 10/22/23 23:43 0.9 % Sodium Chloride 1000 Ml IV 10/23/23 00:37 1,000 mls/hr .Q1H JAYDON Administration Ondansetron HCl 4 mg 10/22/23 23:19 10/22/23 23:10 Ondansetron 2 Mg/Ml Inj IVP 10/22/23 23:20 4 mg ONCE ONE Administration MDM - Nausea/Vomiting/Diarrhea MDM Narrative Medical decision making narrative: 1. Vomiting and diarrhea -likely viral in nature as patient does not report any high risk foods and she now has her son coming down with similar symptoms. Labs are reassuring at this time. She is feeling much better after fluids and Zofran. Patient has Zofran at home and may use this as needed for nausea. I would ask that you avoid Imodium or any other medications to limit stooling. She will likely have resolution of the vomiting in the next few hours but may experience diarrhea over the next few days. [place] foods and pushing fluids very important at this time. 2. Near syncopal episode- patient was sitting on the toilet and remembers falling forward. was immediately there we do not think there was extended loss of consciousness. No exterior signs of trauma and patient has no complaints. EKG shows sinus tachycardia. Heart rate has now come down to within normal limits after fluids. This sounds like of vasovagal type picture exacerbated by dehydration and loss of fluids. 3. Disposition- home at this time. Will send additional Zofran into pharmacy for patient to use as needed. Of course return to the emergency room for worsening symptoms. Medical Records Attestation: I reviewed the patient's medical records. Lab Data Attestation: I reviewed the patient's lab results. Labs: Lab Results 10/22/23 Range/Units 23:00 WBC 10.85 (4.50-11.00) K/uL RBC 5.56 H (4.00-5.20) m/uL Hgb 15.3 (12.0-16.0) gm/dL Hct 47.4 (33.0-51.0) % MCV 85 (80-100) fL MCH 28 (26-34) pg MCHC 32 (32-36) gm/dL RDW Coeff of [place] 13.8 (11.5-15.5) % Plt Count 227 (140-440) K/uL Neut % (Auto) 87.9 H (42.0-72.0) % Lymph % (Auto) 4.4 L (20-44) % [place] % (Auto) 5.4 (0.0-11.0) % Eos % (Auto) 1.6 (0.0-7.0) % Baso % (Auto) 0.3 (0.0-3.0) % Neut # (Auto) 9.50 H (1.7-7.0) K/uL Lymph # (Auto) 0.50 L (0.90-2.90) K/uL [place] # (Auto) 0.60 (0.00-0.90) K/UL Eos # (Auto) 0.17 (0.00-0.50) K/uL Baso # (Auto) 0.03 (0.00-0.30) K/uL Abs Immat Gran (auto) 0.04 (0.00-0.30) K/uL Imm/Tot Granulo (auto) 0.4 % Sodium 140 (135-149) mmol/L Potassium 3.7 (3.6-5.1) mmol/L Chloride 107 (96-114) mmol/L Carbon Dioxide 21 (20-32) mmol/L Anion Gap 12 (7-15) mEq/L BUN 17 (5-24) mg/dL Creatinine 0.7 (0.5-1.5) mg/dL Estimated Creat Clear 123.63 Estimated GFR 126 ml/min Glucose 105 (60-115) mg/dL Calcium 9.2 (8.4-10.6) mg/dL Total Bilirubin 0.7 (0.1-1.5) mg/dL AST 19 (12-35) U/L ALT 18 (4-35) U/L Alkaline Phosphatase 58 (40-150) U/L C-Reactive Protein 0.6 (0.5-1.0) mg/dL Total Protein 7.8 (6.0-8.3) g/dL Albumin 4.7 (3.3-5.0) g/dL Lipase 83 (23-300) U/L ECG Data Attestation: I personally reviewed and interpreted this ECG as follows: ECG interpretation date: 10/22/23 ECG interpretation time: 23:26 Interpretation: EKG by my read shows sinus tachycardia at a rate of 113. No acute ST or T-wave changes. QT and KY intervals within normal limits Discharge Plan Discharge Clinical Impression: Combined abdominal pain, vomiting, and diarrhea Patient Disposition: Home, Self-Care Condition: Improved Additional Instructions: Zofran that you have at home may be used for vomiting. Do not take immodium and meds for diarrhea at this point. Push fluids. [place] foods return as needed Prescriptions: No Action albuterol sulfate 90 mcg/actuation HFA aerosol inhaler 2 puff inhalation Q4-6H PRN (Reason: shortness of breath or wheezing) Qty: 8.5 0RF lorazepam 1 mg tablet 1 mg PO DAILY PRN ferrous sulfate [Iron (ferrous sulfate)] 325 mg (65 mg iron) tablet 325 mg PO QDAY ascorbic acid (vitamin C) 1,000 mg tablet 1 g PO Q6H acetaminophen 500 mg Tablet 1,000 mg PO Q6H PRN (Reason: Pain) Qty: 0 0RF valacyclovir [Valtrex] 500 mg tablet 500 mg PO DAILY Follow Up/Referrals: Comfort Platt, STATION INSTALLER, BOTTOM WORKER [Primary Care Provider] - Stand Alone Forms: [facility] Info Instructions
[2023-10-22] MEDS: 0.9 % SODIUM CHLORIDE 1000 ml 1,000 ML IV ×2 (23:15→23:43)
[2023-10-22 23:19] VITALS: BP 119/83; BP 123/82; BP 130/64; PULSE 112; PULSE 115; PULSE 99
[2023-10-22 23:29] LABS: Basophils Absolute Auto 0.03 K/uL (0.00-0.30); Basophils Percent Auto 0.3 % (0.0-3.0); Eosinophils Absolute Auto 0.17 K/uL (0.00-0.50); Eosinophils Percent Auto 1.6 % (0.0-7.0); Hematocrit 47.4 % (33.0-51.0); Hemoglobin* 15.3 gm/dL (12.0-16.0); Immature Granulocytes Abs Auto 0.04 K/uL (0.00-0.30); Immature Granulocytes Pct Auto 0.4 %; Lymphocytes Percent Auto 4.4 % (20-44); Mean Corpuscular HGB Conc 32 gm/dL (32-36); Mean Corpuscular Hemoglobin 28 pg (26-34); Mean Corpuscular Volume 85 fL (80-100); Monocytes Percent Auto 5.4 % (0.0-11.0); Neutrophils Percent Auto 87.9 % (42.0-72.0); Platelet Count* 227 K/uL (140-440); RDW Coefficient of Variation % 13.8 % (11.5-15.5); Red Blood Count 5.56 m/uL (4.00-5.20); White Blood Count* 10.85 K/uL (4.50-11.00)
[2023-10-22 23:31] LABS: Slide Review Reflex No
[2023-10-22 23:42] LABS: Albumin* 4.7 g/dL (3.3-5.0); Chloride* 107 mmol/L (96-114)
[2023-10-22 23:43] LABS: Potassium* 3.7 mmol/L (3.6-5.1); Sodium* 140 mmol/L (135-149)
[2023-10-22 23:45] LABS: Creatinine* 0.7 mg/dL (0.5-1.5); Est. Creatinine Clearance* 123.63; Estimated Glomerular Filt Rate 126 ml/min
[2023-10-22 23:46] LABS: Alanine Aminotransferase* 18 U/L (4-35); Alkaline Phosphatase* 58 U/L (40-150); Anion Gap 12 mEq/L (7-15); Aspartate Amino Transferase* 19 U/L (12-35); Bilirubin Total* 0.7 mg/dL (0.1-1.5); Blood Urea Nitrogen* 17 mg/dL (5-24); Calcium* 9.2 mg/dL (8.4-10.6); Carbon Dioxide* 21 mmol/L (20-32); Glucose* 105 mg/dL (60-115); Lipase* 83 U/L (23-300); Total Protein* 7.8 g/dL (6.0-8.3)
--- OUTSIDE RECORDS SUMMARY | 2023-10-22 23:46 | XMS_ITS | Clinical Summary ---
Author Name Unknown Organization [facility] Address [address] [place] [id number] Phone Care Team Providers Care Tray Checker Name Role Phone Unavailable Primary Care Provider Unavailabl e Source Comments [employer] is fully rolled out on [employer]. Last update 03/14/09.[employer] Allergies Active Allergy Reactions Criticality Noted Date [...] screening 02/05/2005 06/08/20 23 Overview: LW Onset: [id number] ; Child and Teen Check Up Needs Resolved Problems Problem Noted Date Diagnosed Date Resolved Date Acute encephalopathy 05/07/2023 06/08/2023 023 Encounters Date Type Department Care Team Description 10/14/2023 10:00 AM PROJECT COORDINATOR Telemedicine Psych Rehab [facility] [address] [address] Claire Workman, [facility] Karoline Benson MD Discharge Disposition: Discharged to home or self care (routine discharge) 09/30/2023 10:00 AM PROJECT COORDINATOR Telemedicine Psych [facility] [address] [address] Claire Workman, [facility] Karoline Benson MD Discharge Disposition: Discharged to home or self care (routine discharge) 09/23/2023 10:00 AM PROJECT COORDINATOR Telemedicine Psych [facility] [address] [address] Claire Workman, [facility] Mando Estes DO Discharge Disposition: Discharged to home or self care (routine discharge) 09/09/2023 10:00 AM PROJECT COORDINATOR Telemedicine Psych Re[facility] [address] [address] Claire Workman, [facility] Discharge Disposition: Discharged to home or self care (routine discharge) 09/07/2023 [place] [facility] [address] [address] Regina Romero MHW Mother Baby - Mental Health Outreach 08/26/2023 10:00 AM PROJECT COORDINATOR Telemedicine Psych Re[facility] [address] [address] Claire Workman, [facility] Discharge Disposition: Discharged to home or self care (routine discharge) 08/19/2023 1:00 PM PROJECT COORDINATOR Telemedicine Psych Re[facility] [address] [address] Claire Workman, [facility] Mother Baby - Standard Diagnostic Assessment Discharge Disposition: Discharged to home or self care (routine discharge) 08/19/2023 10:00 AM PROJECT COORDINATOR Telemedicine Psych Re[facility] [address] [address] Claire Workman, [facility] Discharge Disposition: Discharged to home or self care (routine discharge) 08/12/2023 10:00 AM CDT Telemedicine Psych Rehab [address] [address] Claire Workman, [facility] Discharge Disposition: Discharged to home or self care (routine discharge) 08/12/2023 Documentation Only [address] [address] Kiana Borges RN Psych Rehab Health Screen 07/22/2023 10:00 AM CDT Telemedicine Psych Rehab [address] [address] Claire Workman, [facility] Discharge Disposition: Discharged to home or [...] ability to make safe choices [facility], [facility] Reflective Functioning - MB OTP - To increase capacity to recognize and act on her child(edann)? s needs Care Plan MB OTP - To increase capacity to recognize and act on her child(deann)? s needs No [facility] Developmental Growth - MB OTP - [...] Advance Directives For more information, please contact: [phone] Latest Code Status on File Code Status Date Activated Date Inactivated Comments Full Code 06/08/2023 10:12 PM 06/15/2023 1:52 PM Question Answer Comments Does the Patient have prefer ences regarding life sustaining measures (these options only apply when the patient has a pulse): No Discussed Code Status With Whom? Not discussed
--- OUTSIDE RECORDS SUMMARY | 2023-10-22 23:46 | XMS_ITS ---
Care Plan Created on: October 22, 2023 Merry Rooney : 2000 Sex: Female Author Name Unknown Organization [facility] Address [address] [place] [phone] Phone Care Team Providers Care Salvage Inspector [employer] Name Role Phone Unavailable Primary Care [...] screening 02/05/2005 06/08/20 23 Overview: LW Onset: [id number] ; Child and Teen Check Up Needs [...] to make safe choices No Claire Workman, [facility] Reflective Functioning - MB OTP - To increase capacity to recognize and act on her child(deann)? s needs Care Plan MB OTP - To increase capacity to recognize and act on her child(deann)? s needs No Claire Workman, [facility] Developmental Growth - MB OTP - Increase overall functioning and stability by working towards emotional safety, developmental growth and self-agency Care Plan MB OTP - Increase overall functioning and stability by working towards emotional safety, developmental growth and self-agency No Claire Workman, [facility] Interventions Intervention Entry Date Outcome (Patient) Build [...]
--- OUTSIDE RECORDS SUMMARY | 2023-10-22 23:46 | XMS_ITS | Encounter Summary ---
Author Name Unknown Organization [facility] Address [address] [place] [address] Phone Care Team Providers Care Inspector Bullet Slugs Name Role Phone Unavailable Primary Care Provider Unavailabl e Encounter Details Date Type Department Care Team Description 10/14/2023 10:00 AM AUTO CLUB TRAVEL COUNSELOR [facility]icine [facility] [address] [place], [place] [phone] Claire Workman, [facility] [address] [facility] [place], [place] [phone] Karoline Benson MD [address] [facility] [address] [place], [place] [phone] Discharge Disposition: Discharged to home or self [...] Total Score: 7 08/22/20 23 11:05 AM AUTO CLUB TRAVEL COUNSELOR PHQ-2 Depression Total Score: 2 08/22/20 23 11:05 AM AUTO CLUB TRAVEL COUNSELOR documented as of this encounter
--- OUTSIDE RECORDS SUMMARY | 2023-10-22 23:46 | XMS_ITS | Encounter Summary ---
Author Name Unknown Organization [facility] Address [address] [place] [address] Phone Care Team Providers Care Dough Mixer Operator Name Role Phone Unavailable Primary Care Provider Unavailabl e Encounter Details Date Type Department Care Team Description 09/09/2023 10:00 AM SAFETY COUNCIL DIRECTOR Telemedicine Psych Rehab [facility] [address] [place] [phone] Claire Workman [facility] [address] [place], [place] [phone] Discharge Disposition: Discharged to home or self [...] - 09/09/2023 10:00 AM CST Dept: [facility] Type of Service: Group Therapy Provider/Group Senior Vice President And Chief Information Officer: Claire Workman [facility] Date of Service: 09/09/2023 [...] Total time spent on this visit, including jxicgkoh-[id number] interaction, review of medical record, and documentation: 100 minutes. Patient consents to this service: Yes Group Description: Tuesday Connections group consists of a psychotherapy group with content from [place] [employer]. Session Content of Today's Group: Topics [...] () Claire Workman [facility], 09/09/2023 11:54 AM TY COUNCIL DIRECTOR documented in this encounter Plan of Treatment [...] Total Score: 7 08/22/20 23 11:05 AM SAFETY COUNCIL DIRECTOR PHQ-2 Depression Total Score: 2 08/22/20 11:05 AM SAFETY COUNCIL DIRECTOR documented as of this encounter
--- OUTSIDE RECORDS SUMMARY | 2023-10-22 23:46 | XMS_ITS | Encounter Summary ---
Author Name Unknown Organization [facility] Address [address] [place] [address] Phone Care Team Providers Care Life Insurance Underwriter Name Role Phone Unavailable Primary Care Provider Unavailabl e Reason for Visit * Reason Onset Date Comments Mother Baby - Mental Health Outreach 09/07/2023 Encounter Details Date Type Department Care Team Description 09/07/2023 Telephone [facility] Family [facility] [address] [place] [address] Regina Romero MHW [address] [place] [address] Mother Baby - Mental Health Outreach Social [...] Lor Romero Mental Health Worker Mother-Baby Program [facility]GG[facility] documented in this encounter Plan of Treatment [...] Total Score: 7 08/22/20 23 11:05 AM PORTER LUGGAGE PHQ-2 Depression Total Score: 2 08/22/20 23 11:05 AM PORTER LUGGAGE documented as of this encounter
--- OUTSIDE RECORDS SUMMARY | 2023-10-22 23:46 | XMS_ITS | Encounter Summary ---
Author Name Unknown Organization [facility] Address [address] [place] [phone] Phone Care Team Providers Care Manager Immunology Name Role Phone Unavailable Primary Care Provider Unavailabl e Encounter Details Date Type Department Care Team Description 09/23/2023 10:00 AM SPOUT LINER Telemedicine Psych Rehab [address] [address] Claire Workman, [address] [id number] Mando Estes DO [facility] [address] [phone] Discharge Disposition: Discharged to home or self [...] Notes * Group Note - Claire Workman [facility] - 09/23/2023 10:00 AM CST Dept: [facility] Type of Service: Group Therapy Provider/Group Assembler Bicycle: Claire Workman [facility] Date of Service: 09/23/2023 Start Time: [...] Location: Home Provider's Physical Location: Onsite at [facility] Participants in this Telemedicine Visit other than the patient/provider and other group attendees included: N/A This visit started at: 10 AM and concluded at: 11:30 AM. Total time spent on this visit, including cpkeukjf-[id number] interaction, review of medical record, and documentation: 100 minutes. Patient consents to this service: Yes Group Description: Tuesday Connections group consists of a psychotherapy group with content from [place] [facility] [employer]. Session Content of Today's Group: Topics [...] acts Claire Workman [facility], 09/23/2023 1:01 PM T LINER documented in this encounter Plan of Treatment [...] Total Score: 7 08/22/20 23 11:05 AM SPOUT LINER PHQ-2 Depression Total Score: 2 08/22/20 11:05 AM SPOUT LINER documented as of this encounter
--- OUTSIDE RECORDS SUMMARY | 2023-10-22 23:46 | XMS_ITS | Encounter Summary ---
Author Name Unknown Organization [facility] Address [address] [place] [address] Phone Care Team Providers Care Material Spreader Name Role Phone Unavailable Primary Care Provider Unavailabl e Encounter Details Date Type Department Care Team Description 09/30/2023 10:00 AM SENIOR MOBILE WEB DEVELOPER Telemedicine Psych Rehab [facility] [address] [place] [address] Claire Workman, [facility] [address] [place], [place] [phone] Karoline Benson MD [address] [facility] [address] [place], [place] [phone] Discharge Disposition: Discharged to home or self [...] [facility] - 09/30/2023 10:00 AM CST Dept: [facility] Type of Service: Group Therapy Provider/Group Enterprise Engineer: Claire Workman [facility] Date of Service: 09/30/2023 Start Time: 10:00 [...] Location: Home Provider's Physical Location: Onsite at [facility] Participants in this Telemedicine Visit other than the patient/provider and other group attendees included: N/A This visit started at: 10 AM and concluded at: 11:30 AM. Total time spent on this visit, including hmmimjvo-gu-khynzqk interaction, review of medical record, and documentation: 100 minutes. Patient consents to this service: Yes Group Description: Tuesday Connections group consists of a psychotherapy group with content from [place] [employer]. Session Content of Today Group: Topics [...] acts Claire Workman [facility], 09/30/2023 1:35 PM OR MOBILE WEB DEVELOPER documented in this encounter Plan of Treatment [...] Total Score: 7 08/22/20 23 11:05 AM SENIOR MOBILE WEB DEVELOPER PHQ-2 Depression Total Score: 2 08/22/20 23 11:05 AM SENIOR MOBILE WEB DEVELOPER documented as of this encounter
--- OUTSIDE RECORDS SUMMARY | 2023-10-22 23:47 | XMS_ITS | Encounter Summary ---
Author Name Unknown Organization [facility] Address 1 [place] [address] Phone Care Team Providers Care College Or University Department Head Name Role Phone Unavailable Primary Care Provider Unavailabl e Encounter Details Date Type Department Care Team Description 07/01/2023 10:00 AM CDT Telemedicine Psych Rehab [address] [phone] Claire Workman, [facility] [address] [place], [place] [phone] Discharge Disposition: Discharged to home or self [...] Notes * Group Note - Claire Workman [facility] - 07/01/2023 10:00 AM CDT Dept: [facility] Type of Service: Group Therapy Provider/Group Laboratory Specialist: Claire Workman [facility] Date of Service: 07/01/2023 Start Time: 10:00 AM Stop Time: 11:30 AM Number of Group Members Present: 4 Name of Group: Tuesday Connections Group Frequency: Weekly Location of Service: Hybrid Group (some participants face to face and some some on video): If this option is selected, telemed statement needs to be added for those who were on video. Telemedicine: Chatterous Video Visit: This telemedicine visit is conducted by audio and video technology between thepatient and provider. Informed consent was provided during e-check in and signed by patient. Patient was offered opportunity to ask any questions. Patient's Physical Location: Home Provider's Physical Location: Onsite at [facility]Affili[facility] Participants in this Telemedicine Visit other than the patient/provided included: Other group members This visit started at: 10 AM and concluded at: 11:30 AM. Group Description: Tuesday Connections group consists of a psychotherapy group with content from [place] of [employer]. Session Content of Today's [...]
--- OUTSIDE RECORDS SUMMARY | 2023-10-22 23:47 | XMS_ITS | Encounter Summary ---
Author Name Unknown Organization [facility] Address 1 [place] [address] Phone Care Team Providers Care Liquefied Natural Gas Plant Operator Name Role Phone Unavailable Primary Care Provider Unavailabl e Encounter Details Date Type Department Care Team Description 07/22/2023 10:00 AM CDT Telemedicine Psych Rehab [facility] [address] [place] [address] [phone] Claire Workman LPCC [address] [place], [place] [phone] Discharge Disposition: Discharged to home or self [...] LPCC - 07/22/2023 10:00 AM CDT Dept: [facility] Type of Service: Group Therapy Provider/Group Human Resources Officer: Claire Workman LPCC Date of Service: 07/22/2023 [...] of a psychotherapy group with content from [place] of [employer]. Session Content of Today's [...]
--- OUTSIDE RECORDS SUMMARY | 2023-10-22 23:47 | XMS_ITS | Encounter Summary ---
Author Name Unknown Organization [facility] Address [address] [place] [address] Phone Care Team Providers Care Sports Leadership Instructor Name Role Phone Unavailable Primary Care Provider Unavailabl e Reason for Visit * Prior Authorization (Routine) - Closed Specialty Diagnoses / Procedures Referred By Contac t Referred To Contact Psych Rehab Diagnoses Bipolar II disorder () Trauma and stressor-related disorder Procedures MOTHER BABY ENROLLMENT Jazmine Potter, [facility] [address] [place] [address] [address] Referral ID Status Reason Start Date Expiration Date Visits Re quested Visits Authorized [id number] Closed 05/09/2023 06/24/2023 105 105 Encounter Details Date Type Department Care Team Description 06/22/2023 1:45 PM CDT Psych Rehab [facility] [address] [place] [address] [phone] Karoline Benson MD 701 [facility] S1 [address]60 [place], [place] [phone] Dh, Mother Baby Discharge Disposition: Discharged to [...] LICSW - 06/22/2023 1:45 PM CDT Dept: [facility] Type of Service: Group Therapy Name of Group: Psychoeducation/Skills Group Provider/Group Grand Scribe: Jazmine Potter LICSW Date of Service: 06/22/2023 Start Time: 1:45 PM Stop Time: 2:30 PM Number of Group Members Present: 4 Location of Service: Face to Face at [facility] COSTUMED CHARACTER ENTERTAINER SERVICES PROVIDED (if applicable): No Session Content [...]
--- OUTSIDE RECORDS SUMMARY | 2023-10-22 23:47 | XMS_ITS | Encounter Summary ---
Author Name Unknown Organization [facility] Address 1 [place] [address] Phone Care Team Providers Care Mop Worker Name Role Phone Unavailable Primary Care Provider Unavailabl e Encounter Details Date Type Department Care Team Description 08/26/2023 10:00 AM SUPERVISOR COSTUMING Telemedicine Psych Rehab [facility] [address] [place] [address] [phone] Claire Workman LPCC [address] [place], [place] [address] Discharge Disposition: Discharged to home or self [...] LPCC - 08/26/2023 10:00 AM CST Dept: [facility] Type of Service: Group Therapy Provider/Group Pulp Grinder Feeder: Claire Workman LPCC Date of Service: 08/26/2023 [...] Location: Home Provider's Physical Location: Onsite at [facility]/Affiliate Participants in this Telemedicine Visit other than the patient/provider and other group attendees included: N/A This visit started at: 10 AM and concluded at: 11:30 AM. Total time spent on this visit, including jqsderkl-[id number]-[id number] interaction, review of medical record, and documentation: 100 minutes. Patient consents to this service: Yes Group Description: Tuesday Connections group consists of a psychotherapy group with content from [place] of [employer] Parenting. Session Content of Today's Group: Topics [...] Discharge Plan/Anticipated Discharge: 09/09, then transfer to [facility] Diagnoses: 1. PTSD (post-traumatic stress disorder) 2. Mixed obsessional thoughts and acts Claire Workman LPCC, 08/26/2023 1:21 PM RVISOR COSTUMING documented in this encounter Plan of Treatment [...] Total Score: 7 08/22/20 23 11:05 AM SUPERVISOR COSTUMING PHQ-2 Depression Total Score: 2 08/22/20 23 11:05 AM SUPERVISOR COSTUMING documented as of this encounter
--- OUTSIDE RECORDS SUMMARY | 2023-10-22 23:47 | XMS_ITS | Encounter Summary ---
Author Name Unknown Organization [facility] Address [address] [place] [address] Phone Care Team Providers Care Flanging Machine Operator Name Role Phone Unavailable Primary Care Provider Unavailabl e Reason for Visit * Reason Comments Psych Rehab Health Screen Encounter Details Date Type Department Care Team Description 08/12/[address] [facility] [address] [place] [address] Kiana Borges, RN [facility] 701 [place] [address] Psych Rehab Health Screen Social History Tobacco [...] three following questions. Difficult to pay for child care coordinator? X 2. Difficult to pay your bills? [...]
--- OUTSIDE RECORDS SUMMARY | 2023-10-22 23:47 | XMS_ITS | Encounter Summary ---
Author Name Unknown Organization [facility] Address [address] [place] [address] Phone Care Team Providers Care Branch Maker Name Role Phone Unavailable Primary Care Provider Unavailabl e Reason for Visit * Prior Authorization (Routine) - Closed Specialty Diagnoses / Procedures Referred By Contac t Referred To Contact Psych Rehab Diagnoses Bipolar II disorder () Trauma and stressor-related disorder Procedures MOTHER BABY ENROLLMENT Jazmine Potter, [facility] [address] [place] [address] [address] Referral ID Status Reason Start Date Expiration Date Visits Re quested Visits Authorized [id number] Closed 05/09/2023 06/24/2023 105 105 Encounter Details Date Type Department Care Team Description 06/22/2023 12:30 PM CDT [facility] [address] [place] [address]125 Karoline Benson MD [address] [facility] S1 860 [place], [place] [phone] Dh, Mother Baby Discharge Disposition: Discharged to [...] OTR/L - 06/22/2023 12:30 PM CDT [facility] Type of Service: Group Therapy Name of Group: Wellness Group Provider/Group Library Technical Assistant: Alisha Hardy OTR/L Date of Service: 06/22/2023 Start Time: 12:45 PM Stop Time: 1:30 PM Number of Group Members Present: 5 Location of Service: Face to Face at [facility] SOIL ANALYST SERVICES PROVIDED (if applicable): No Session [...]
--- OUTSIDE RECORDS SUMMARY | 2023-10-22 23:47 | XMS_ITS | Encounter Summary ---
Author Name Unknown Organization [facility] Address 1 [facility] [place] [address] Phone Care Team Providers Care Hospice Community Liaison Name Role Phone Unavailable Primary Care Provider Unavailabl e Encounter Details Date Type Department Care Team Description 06/23/2023 12:30 PM CDT Psych Rehab [facility] [address] [place] [address] [phone] Ray Esposito MD [address] [phone] Discharge Disposition: Discharged to home or self [...] MD - 06/23/2023 12:30 PM CDT 06/23/2023 [facility]. [facility] - [facility]. Medication review. Recent chart notes reviewed on Epic - including most recent brief admission to [facility] in-patient psychiatry because of severe and unrelenting obsessional thoughts of harming her baby (06/08/23 - 06/15/23). Per therapy staff - (and confirmed by patient herself today) - Kristina is now living with her partner's family in [place] - until such time as she can summon the courage to [facility] her partner rent in [place] (which naturally had triggered a return of [...]
--- OUTSIDE RECORDS SUMMARY | 2023-10-22 23:47 | XMS_ITS | Encounter Summary ---
Author Name Unknown Organization [facility] Address [address] [place] [address] Phone Care Team Providers Care Side Hemmer Name Role Phone Unavailable Primary Care Provider Unavailabl e Reason for Visit * Prior Authorization (Routine) - Closed Specialty Diagnoses / Procedures Referred By Contac t Referred To Contact Psych Rehab Diagnoses Bipolar II disorder () Trauma and stressor-related disorder Procedures MOTHER BABY ENROLLMENT Jazmine Potter, [facility] [address] [place] [address] [address] Referral ID Status Reason Start Date Expiration Date Visits Re quested Visits Authorized [id number] Closed 05/09/2023 06/24/2023 105 105 Encounter Details Date Type Department Care Team Description 06/23/2023 9:30 AM CDT [facility] [address] [place] [address] [phone] Karoline Benson MD 701 [facility] S1 860 [place], [place] [phone] Dh, Mother Baby Discharge Disposition: Discharged to [...] LPCC - 06/23/2023 9:30 AM CDT Dept: [facility] Type of Service: Group Therapy Name of Group: Psychoeducation/Skills Group Provider/Group Brass Bobbin Winder: Claire Workman LPCC Date of Service: 06/23/2023 Start Time: 9:30 AM Stop Time: 10:15 AM Number of Group Members Present: 4 Location of Service: Face to Face at [facility] Session Content (Intervention): Welcomed any new patients [...]
--- OUTSIDE RECORDS SUMMARY | 2023-10-22 23:47 | XMS_ITS | Encounter Summary ---
Author Name Unknown Organization [facility] Address 1 [place] [address] Phone Care Team Providers Care Dredge Pipe Operator Name Role Phone Unavailable Primary Care Provider Unavailabl e Encounter Details Date Type Department Care Team Description 08/19/2023 10:00 AM DEPUTY DIRECTOR OF FINANCE Telemedicine Psych Rehab [facility] [address] [place] [address] [phone] Claire Workman LPCC 701 [place], [place] [address] Discharge Disposition: Discharged to home or self [...] LPCC - 08/19/2023 10:00 AM CST Dept: [facility] Type of Service: Group Therapy Provider/Group Turning Machine Operator Helper: Claire Workman LPCC Date of Service: 08/19/2023 [...] Location: Home Provider's Physical Location: Onsite at [facility]/Affili[facility] Participants in this Telemedicine Visit other than the patient/provider and other group attendees included: N/A This visit started at: 10 AM and concluded at: 11:30 AM. Total time spent on this visit, including [id number]-jc-[id number] interaction, review of medical record, and documentation: 100 minutes. Patient consents to this service: Yes Group Description: Tuesday Connections group consists of a psychotherapy group with content from [place] of [employer] Parent[employer]. Session Content of Today's Group: Topics [...] disorder Claire Workman LPCC, 08/19/2023 2:14 PM TY DIRECTOR OF FINANCE documented in this encounter Plan of Treatment [...]
--- OUTSIDE RECORDS SUMMARY | 2023-10-22 23:47 | XMS_ITS | Encounter Summary ---
Author Name Unknown Organization [facility] Address [address] [place] [address] Phone Care Team Providers Care Improvement Rn Name Role Phone Unavailable Primary Care Provider Unavailabl e Reason for Visit * Reason Comments Mother Baby - Individual Psychotherapy * Prior Authorization (Routine) - Closed Specialty Diagnoses / Procedures Referred By Bernardo t Referred To Contact Psych Rehab Diagnoses Bipolar II disorder () Trauma and stressor-related disorder Procedures MOTHER BABY ENROLLMENT Jazmine Potter, [facility] [address] [place] [address] [address] Referral ID Status Reason Start Date Expiration Date Visits Re quested Visits Authorized [id number] Closed 05/09/2023 06/24/2023 105 105 Encounter Details Date Type Department Care Team Description 06/20/2023 2:30 PM CDT Psych Rehab [facility] [address] [place] [address] [phone] Claire Workman, [facility] 701 [place], [place] [phone] Mother Baby - Individual Psychotherapy Discharge Disposition: [...] encounter Progress Notes * Ji Claire Garcia, [facility] - 06/20/2023 2:30 PM CDT [facility] Progress Note Date of Service: 06/20/2023 Start Time: 2:30 pm Stop Time: 3 pm Location of Visit: Face [facility] Face at [facility] Participants in this Visit other than [...] plan and plan for further services, including [facility] Psychotherapy outpatient services. Patient Response to Intervention [...] this provider in , then transition to [facility] Psychotherapy provider; therapy homework = n/a 2. Psychiatric care: Continue with providers, then transition to [facility] Psychotherapy prescriber 3. Utilize emergency resources (APS, [...]
--- OUTSIDE RECORDS SUMMARY | 2023-10-22 23:47 | XMS_ITS | Encounter Summary ---
Author Name Unknown Organization [facility] Address 1 [place] [address] Phone Care Team Providers Care Master [employer] Name Role Phone Unavailable Primary Care Provider Unavailabl e Reason for Visit * Reason Comments Mother Baby - Standard Diagnostic Assess ment Encounter Details Date Type Department Care Team Description 08/19/2023 1:00 PM CHEESE PRODUCTION SUPERVISOR Telemedicine Psych Rehab [facility] 701 [place], [place] [phone] Claire Workman, [facility] [address] [place] [address] [phone] Mother Baby - Standard Diagnostic Assessment Discharge [...] this encounter Progress Notes * Claire Workman [facility] - 08/19/2023 1:00 PM CST [place] Patient Name: Merry Rooney : 2000 STANDARD DIAGNOSTIC ASSESSMENT Date of Service: 08/19/2023 Start Time: 1:07 pm Stop Time: 1:48 pm Location: Telemedicine: [facility] Video Visit: This telemedicine visit is conducted by audio and video technology between thepatient and provider. Informed consent was provided during e-check in and signed by patient. Patient was offered opportunity to ask any questions. Patient's Physical Location: Home Provider's [facility] PRESENTING CONCERN: Referral Source: referred by inpatient team at [facility] after traumatic of second child Reason for [...] who was referred by inpatient team at [facility] for evaluation of PTSD and effects of [...] She reports a history of self-injury from [phone]. She reports violent behaviors have happened several [...] Resources Current psychiatry provider is Juanita at [facility]. Current therapist is Raegan at [facility]. Current treatment resources include group psychotherapy. Other [...] and chemical health):?No Support for Sobriety Includes: [place] Support Group such as AA/SMART in the [...] Orientation: bisexual Race/Ethnicity: white History: No Belief System:?Hinduism, non-oriental orthodox Impact of Cultural Influences on Treatment: None [...] needs include Food stamps Medical insurance Employment [employer]. Significant Personal Relationships: Patient is [...] law. Claire Workman LPCC, 08/19/2023 1:08 PM SE PRODUCTION SUPERVISOR documented in this encounter Plan of Treatment [...] safety, developmental growth and self-agency [facility]quez[facility] documented as of this encounter Visit Diagnoses [...] Total Score: 7 08/22/20 23 11:05 AM CHEESE PRODUCTION SUPERVISOR PHQ-2 Depression Total Score: 2 08/22/20 23 11:05 AM CHEESE PRODUCTION SUPERVISOR documented as of this encounter
--- OUTSIDE RECORDS SUMMARY | 2023-10-22 23:47 | XMS_ITS | Encounter Summary ---
Author Name Unknown Organization [facility] Address [address] [place] [address] Phone Care Team Providers Care Grocery Cashier Name Role Phone Unavailable Primary Care Provider Unavailabl e Reason for Visit * Prior Authorization (Routine) - Closed Specialty Diagnoses / Procedures Referred By Contac t Referred To Contact Psych Rehab Diagnoses Bipolar II disorder () Trauma and stressor-related disorder Procedures MOTHER BABY ENROLLMENT Jazmine Potter, [facility] 701 [place] [address] [address] Referral ID Status Reason Start Date Expiration Date Visits Re quested Visits Authorized [id number] Closed 05/09/2023 06/24/2023 105 105 Encounter Details Date Type Department Care Team Description 06/22/2023 10:15 AM CDT [facility] [address] [place] [address] [phone] Karoline Benson MD 701 [facility] S1 [address]60 [place], [place] [phone] Dh, Mother Baby Discharge Disposition: Discharged to [...] LPCC - 06/22/2023 10:15 AM CDT Dept: [facility] Type of Service: Group Therapy Name of Group: Psychotherapy Process Group Provider/Group Police Reserves Commander: Claire Workman LPCC Date of Service: 06/22/2023 Start Time: 10:15 AM Stop Time: 11:00 AM Number of Group Members Present: 5 Location of Service: Face to Face at [facility] Session Content of Today's Group: At [...]
--- OUTSIDE RECORDS SUMMARY | 2023-10-22 23:47 | XMS_ITS | Encounter Summary ---
Author Name Unknown Organization [facility] Address 701 [facility] [place] [address] Phone Care Team Providers Care Sleep Scientist Name Role Phone Unavailable Primary Care Provider Unavailabl e Reason for Visit * Reason Onset Date Comments Mother Baby - Mental Health Outreach 07/11/2023 Encounter Details Date Type Department Care Team Description 07/11/2023 Telephone [facility] Family [facility] 701 [place], [place] [phone] Claire Workman LPCC 701 [place], [place] [phone] Mother Baby - Mental Health Outreach Social [...]
--- OUTSIDE RECORDS SUMMARY | 2023-10-22 23:47 | XMS_ITS | Encounter Summary ---
Author Name Unknown Organization [facility] Address [address] [place] [address] Phone Care Team Providers Care Manager Corporate Responsibility Name Role Phone Unavailable Primary Care Provider Unavailabl e Reason for Visit * Prior Authorization (Routine) - Closed Specialty Diagnoses / Procedures Referred By Contac t Referred To Contact Psych Rehab Diagnoses Bipolar II disorder () Trauma and stressor-related disorder Procedures MOTHER BABY ENROLLMENT Jazmine Potter, [facility] 701 [place] [address] [address] Referral ID Status Reason Start Date Expiration Date Visits Re quested Visits Authorized [id number] Closed 05/09/2023 06/24/2023 105 105 Encounter Details Date Type Department Care Team Description 06/23/2023 10:15 AM CDT [facility] [address] [place] [address] [phone] Karoline Benson MD 701 [facility] S1 860 [place], [place] [phone] Dh, Mother Baby Discharge Disposition: Discharged to [...] LPCC - 06/23/2023 10:15 AM CDT Dept: [facility] Type of Service: Group Therapy Name of Group: Psychotherapy Process Group Provider/Group Heating And Cooling Technician: Claire Workman LPCC Date of Service: 06/23/2023 Start Time: 10:15 AM Stop Time: 11:00 AM Number of Group Members Present: 4 Location of Service: Face to Face at [facility] Session Content of Today's Group: At the [...]
--- OUTSIDE RECORDS SUMMARY | 2023-10-22 23:47 | XMS_ITS | Encounter Summary ---
Author Name Unknown Organization [facility] Address 1 [place] [address] Phone Care Team Providers Care Baller Tender Name Role Phone Unavailable Primary Care Provider Unavailabl e Encounter Details Date Type Department Care Team Description 08/12/2023 10:00 AM CDT Telemedicine Psych Rehab [facility] [address] [place] [address] [phone] Claire Workman LPCC 701 [place], [place] [phone] Discharge Disposition: Discharged to home or self [...] LPCC - 08/12/2023 10:00 AM CDT Dept: [facility] Type of Service: Group Therapy Provider/Group Clinical Research Management Associate: Claire Workman LPCC Date of Service: 08/12/2023 [...] Location: Home Provider's Physical Location: [facility] Participants in this Telemedicine Visit other than the patient/provider and other group attendees included: N/A This visit started at: 10 AM and concluded at: 11:30 AM. Total time spent on this visit, including odgtmgqs-az-[id number] interaction, review of medical record, and documentation: 100 minutes. Patient consents to this service: Yes Group Description: Tuesday Connections group consists of a psychotherapy group with content from [employer]. Session Content of Today's Group: Topics [...]
--- OUTSIDE RECORDS SUMMARY | 2023-10-22 23:47 | XMS_ITS | Encounter Summary ---
Author Name Unknown Organization [facility] Address [address] [place] [address] Phone Care Team Providers Care Pile Driving Nozzleman Name Role Phone Unavailable Primary Care Provider Unavailabl e Reason for Visit * Prior Authorization (Routine) - Closed Specialty Diagnoses / Procedures Referred By Contac t Referred To Contact Psych Rehab Diagnoses Bipolar II disorder () Trauma and stressor-related disorder Procedures MOTHER BABY ENROLLMENT Jazmine Potter, [facility] [address] [place] [address] [address] Referral ID Status Reason Start Date Expiration Date Visits Re quested Visits Authorized [id number] Closed 05/09/2023 06/24/2023 105 105 Encounter Details Date Type Department Care Team Description 06/23/2023 1:45 PM CDT [facility] [address] [place] [address] [phone] Karoline Benson MD 701 [facility] S1 860 [place], [place] [phone] Dh, Mother Baby Discharge Disposition: Discharged to [...] LPCC - 06/23/2023 1:45 PM CDT Dept: [facility] Family [facility] Type of Service: Group Therapy Name of Group: Psychoeducation/Skills Group Provider/Group Public Relations Account Executive: Claire Workman LPCC Date of Service: 06/23/2023 Start Time: 1:45 PM Stop Time: 2:30 PM Number of Group Members Present: 5 Location of Service: Face to Face at [facility] Session Content (Intervention): The purpose of [...]
--- OUTSIDE RECORDS SUMMARY | 2023-10-22 23:47 | XMS_ITS | Encounter Summary ---
Author Name Unknown Organization [facility] Address 1 [place] [address] Phone Care Team Providers Care Account Services Coordinator Name Role Phone Unavailable Primary Care Provider Unavailabl e Encounter Details Date Type Department Care Team Description 07/15/2023 10:00 AM CDT Telemedicine Psych Rehab [facility] [address] [place] [address] [phone] Claire Workman LPCC 701 [place], [place] 869105 Discharge Disposition: Discharged to home or self [...] LPCC - 07/15/2023 10:00 AM CDT Dept: [facility] Type of Service: Group Therapy Provider/Group Voice Intercept Technician: Claire Workman LPCC Date of Service: 07/15/2023 Start Time: 10:00 AM Stop Time: 11:30 AM Number of Group Members Present: 5 Name of Group: Tuesday Connections Group Frequency: Weekly Location of Service: Hybrid Group (some participants face to face and some some on video): If this option is selected, telemed statement needs to be added for those who were on video. Telemedicine: Primekss Video Visit: This telemedicine visit is conducted by audio and video technology between thepatient and provider. Informed consent was provided during e-check in and signed by patient. Patient was offered opportunity to ask any questions. Patient's Physical Location: Home Provider's Physical Location: Onsite at [facility] Participants in this Telemedicine Visit other than the patient/provided included: Group members This visit started at: 10 AM and concluded at: 11:30 AM. Group Description: Tuesday Connections group consists of a psychotherapy group with content from [place] [employer] Parenting. Session Content of Today's [...]
--- OUTSIDE RECORDS SUMMARY | 2023-10-22 23:47 | XMS_ITS | Encounter Summary ---
Author Name Unknown Organization [facility] Address 701 [facility] [place] [address] Phone Care Team Providers Care Pipe Foreman Name Role Phone Unavailable Primary Care Provider Unavailabl e Encounter Details Date Type Department Care Team Description 07/22/2023 Plan of Care Documentation [facility] Family [facility] 701 [place], [place] 388495 Social History Tobacco Use Types Packs/Day Years [...]
--- OUTSIDE RECORDS SUMMARY | 2023-10-22 23:47 | XMS_ITS | Encounter Summary ---
Author Name Unknown Organization [facility] Address [address] [place] [address] Phone Care Team Providers Care Foundation Engineer Name Role Phone Unavailable Primary Care Provider Unavailabl e Reason for Visit * Prior Authorization (Routine) - Closed Specialty Diagnoses / Procedures Referred By Contac t Referred To Contact Psych Rehab Diagnoses Bipolar II disorder () Trauma and stressor-related disorder Procedures MOTHER BABY ENROLLMENT Jazmine Potter, [facility] 701 [place] [address] [address] Referral ID Status Reason Start Date Expiration Date Visits Re quested Visits Authorized [id number] Closed 05/09/2023 06/24/2023 105 105 Encounter Details Date Type Department Care Team Description 06/23/2023 11:00 AM CDT [facility] [address] [place] [address] [phone] Karoline Benson MD 701 [facility] S1 860 [place], [place] 269075 Dh, Mother Baby Discharge Disposition: Discharged to [...] RN - 06/23/2023 11:00 AM CDT Dept: [facility] Family [facility] Type of Service: Group Therapy Provider/Group Press Technician: Kiana Borges RN Date of Service: 06/23/2023 Start Time: 11:15 AM Stop Time: 12:00 PM Number of Group Members Present: 4 Name of Group: Movement Location of Service: Face to Face at [facility] LEAF STRIPPER SERVICES PROVIDED (if applicable): No Session Content (Intervention) (including goal/intended outcome): Encouraged group members to participate in mind-body skills facilitated by [facility] Trauma- Informed Yoga providers. Trauma-sensitive mind-body skills [...]
--- OUTSIDE RECORDS SUMMARY | 2023-10-22 23:47 | XMS_ITS | Encounter Summary ---
Author Name Unknown Organization [facility] Address [address] [place] [address] Phone Care Team Providers Care Office Engineer Name Role Phone Unavailable Primary Care Provider Unavailabl e Reason for Visit * Prior Authorization (Routine) - Closed Specialty Diagnoses / Procedures Referred By Contac t Referred To Contact Psych Rehab Diagnoses Bipolar II disorder () Trauma and stressor-related disorder Procedures MOTHER BABY ENROLLMENT Jazmine Potter, [facility] 701 [place] [address] [address] Referral ID Status Reason Start Date Expiration Date Visits Re quested Visits Authorized [id number] Closed 05/09/2023 06/24/2023 105 105 Encounter Details Date Type Department Care Team Description 06/22/2023 3:00 PM CDT [facility] 701 [place], [place] [phone] Noy Chen, [facility] 701 [place], [place] 8[address] Karoline Benson MD 701 [facility] S[address]60 [place], [place] 7[address]255 Discharge Disposition: Discharged to home or self [...] this encounter Progress Notes * Noy Chen, [facility] - 06/22/2023 3:00 PM CDT [facility] Progress Note Date of Service: 06/22/2023 Start Time: 3pm Stop Time: 4pm Location of Visit: Face to Face at [facility] Participants in this Visit other than the patient/provider included: Patient's partner. Pt was not present during today's visit. ETHNOARCHAEOLOGIST SERVICES PROVIDED (if applicable): No Type of [...] to reach out if needed. Email sent: [email or web address] Patient Response to Intervention (including any plans [...] Plan: 1. Psychotherapy: Pt to continue in [facility] programming; partner to engage in brief, individual [...]
--- OUTSIDE RECORDS SUMMARY | 2023-10-22 23:47 | XMS_ITS | Encounter Summary ---
Author Name Unknown Organization [facility] Address 701 [place] [address] Phone Care Team Providers Care Metal Patternmaker Name Role Phone Unavailable Primary Care Provider Unavailabl e Reason for Visit * Reason Comments Psych Medication Management Encounter Details Date Type Department Care Team Description 06/20/2023 10:00 AM CDT Psych Rehab [facility] 701 [place], [place] [phone] Karoline Benson MD 701 [facility] S1 860 [place], [place] 8[address] Psych Medication Management Discharge Disposition: Discharged to [...] Baby [facility], Psychiatry Visit Started the [facility] on: 05/09/23 ([place] [facility] [place]08-06[place]15[place] Merry Rooney is a 23 y.o. mother of baby (Aidan born 05/03/23) and 2 year old son (Chuy). Referred by [facility] inpatient initially to the [facility]. Also admitted while she was in the program to [facility] ([place], [place]) 05/24-05/30/23. Cultural Context: white, Indonesian and Citizen Of [place] Pronouns: she/her/hers; Supports: [place] -- supportive Therapist: ; PCP: ; OB-NEGOTIATIONS DIRECTOR: Antonio Ob; Cruise Counselor: Feeding Method: mainly formula because milk supply [...] she was in the program to [facility] ([place]) 05/24- 05/30/23. Multiple, recent ED visits for physical sx of anxiety as well as SI - mainly to [place] ED (see 06/02/[address] Esposito for recent summary of ED courses). Admitted [place] [facility] [place] 06/08-06/15/23) Diagnostic Impression(s) Bipolar II Disorder, current episode depressed, severe with psychotic symptoms PTSD and (Complex Developmental Trauma) Unspecified anxiety (intrusive thoughts) Opioid and alcohol use disorders, by history Multiple closed head injuries and hx of seizure preeclampsia Assessment [place], caring, resilient 23 y.o. mother of 2 following a harrowing course with psychotic symptoms and possible preeclampsia leading to transfer to [facility] ICU. Longitudinal course consistent with Complex Developmental Trauma and bipolar spectrum leading to a psychiatric admission ( 05/24- to [facility]) and recent admission to 06/08-06/15/23 [facility]. Improved depression and no [...] Discharge planning. Intervening History Recent admission [place] [facility] [place] reviewed -- 06/08-06/15/23 [...] 150.0 ng/mL Final Comment: Test Performed by: [facility] [address] [place] [phone] Transferrin 06/12/2023 293 200 - 360 mg/dL [...] when she was 4. Mother lived in [place]. 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 Legal: no had involvement with the legal system. The patient reports the following spiritual and/or cultural history: Indonesian and Citizen Of [place] background Relationship to her partner/father/co-parent of the [...]
--- OUTSIDE RECORDS SUMMARY | 2023-10-22 23:47 | XMS_ITS | Encounter Summary ---
Author Name Unknown Organization [facility] Address [address] [place] [address] Phone Care Team Providers Care Vice President Of Academic Affairs Name Role Phone Unavailable Primary Care Provider Unavailabl e Reason for Visit * Prior Authorization (Routine) - Closed Specialty Diagnoses / Procedures Referred By Contac t Referred To Contact Psych Rehab Diagnoses Bipolar II disorder () Trauma and stressor-related disorder Procedures MOTHER BABY ENROLLMENT Jazmine Potter, [facility] [address] [place] [address] [address] Referral ID Status Reason Start Date Expiration Date Visits Re quested Visits Authorized [id number] Closed 05/09/2023 06/24/2023 105 105 Encounter Details Date Type Department Care Team Description 06/22/2023 9:30 AM CDT [facility] [address] [place] [address] [phone] Karoline Benson MD 701 [facility] S1 860 [place], [place] [phone] Dh, Mother Baby Discharge Disposition: Discharged to [...] LPCC - 06/22/2023 9:30 AM CDT Dept: [facility] Type of Service: Group Therapy Name of Group: Psychoeducation/Skills Group Provider/Group Technical Sales Support Specialist: Claire Workman LPCC Date of Service: 06/22/2023 Start Time: 9:30 AM Stop Time: 10:15 AM Number of Group Members Present: 4 Location of Service: Face to Face at [facility] Session Content (Intervention): Welcomed any new [...]
--- OUTSIDE RECORDS SUMMARY | 2023-10-22 23:47 | XMS_ITS | Encounter Summary ---
Author Name Unknown Organization [facility] Address [address] [place] [address] Phone Care Team Providers Care Poultry Cutter Name Role Phone Unavailable Primary Care Provider Unavailabl e Reason for Visit * Reason Onset Date Comments Psych Medication Management 06/22/2023 Encounter Details Date Type Department Care Team Description 06/22/2023 11:00 AM CDT Psych Rehab [facility] [address] [place] [address] [phone] Karissa Sams MD [address] [place] [address] [phone] Psych Medication Management Discharge Disposition: Discharged to [...] Baby Day [facility], Psychiatry Visit Started the [facility] on: 05/09/23 ([facility] [facility] [place] 06/08-06/15/23) Merry Rooney is a 23 y.o. mother of baby (Aidan born 05/03/23) and 2 year old son (Chuy). Referred by [facility] initially to [facility]. Also admitted while she was in the program to [place], [place]) 05/24-05/30/23. Cultural Context: white, Central African and [place]ian Pronouns: she/her/hers; Supports: Espinosa -- supportive Therapist: ; PCP: ; OB-PHOTOGRAPHER STILL: Antonio Ob; Gutter Hanger: Feeding Method: mainly formula because milk supply [...] while she was in the program to [facility] ([place], [place]) 05/24- 05/30/23. Multiple, recent ED visits for physical sx of anxiety as well as SI - mainly to [place] ED (see 06/02/[address] Esposito [...] injuries and hx of seizure preeclampsia Assessment [place], caring, resilient 23 y.o. mother of 2 following a harrowing course with psychotic symptoms and possible preeclampsia leading to transfer to [place] ICU. Longitudinal course consistent with Complex Developmental Trauma and bipolar spectrum leading to a psychiatric admission ( 05/24- to [facility]) and recent [facility] [...] DBT, medication management appt next week at [facility]. Intervening History Last seen 06/20 [...] when she was 4. Mother lived in [place]. 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 Legal: no had involvement with the legal system. The patient reports the following spiritual and/or cultural history: [place] and [place]ian background Relationship to her partner/father/co-parent of the [...] LICSW - 06/22/2023 11:00 AM CDT Dept: [facility] Type of Service: Group Therapy Provider/Group Thermal Surfacing Machine Operator: Jazmine Potter LICSW Date of Service: 06/22/2023 Start Time: 11:15 AM Stop Time: 12:00 PM Number of Group Members Present: 4 Name of Group: Movement Location of Service: Face to Face at [facility] SUPERVISOR CEMETERY WORKERS SERVICES PROVIDED (if applicable): No Session Content [...]
[2023-10-22 23:48] LABS: C Reactive Protein* 0.6 mg/dL (0.5-1.0)
--- OUTSIDE RECORDS SUMMARY | 2023-10-22 23:48 | XMS_ITS | Encounter Summary ---
Author Name Unknown Organization [facility] Address [address] [place] [address] Phone Care Team Providers Care Test Engineering Intern Name Role Phone Unavailable Primary Care Provider Unavailabl e Reason for Visit * Prior Authorization (Routine) - Closed Specialty Diagnoses / Procedures Referred By Contac t Referred To Contact Psych Rehab Diagnoses Bipolar II disorder () Trauma and stressor-related disorder Procedures MOTHER BABY ENROLLMENT Jazmine Potter, [facility] [address] [place] [address] [address] Referral ID Status Reason Start Date Expiration Date Visits Re quested Visits Authorized [id number] Closed 05/09/2023 06/24/2023 105 105 Encounter Details Date Type Department Care Team Description 06/07/2023 1:45 PM CDT Psych Rehab [facility] [address] [place] [address] [phone] Dh, Mother Baby Discharge Disposition: Discharged to [...] 06/07/2023 1:45 PM CDT Dept: [facility] Type of Service: Group Therapy Name of Group: Psychoeducation/Skills Group Provider/Group Perfect Binder Operator: Claire Workman LPCC Date of Service: 06/07/2023 Start Time: 1:45 PM Stop Time: 2:30 PM Number of Group Members Present: 7 Location of Service: Face to Face at [facility] Session Content (Intervention): The purpose of this group was to provide education through information-sharing and facilitated group discussion. Handouts were provided and covered in detail. Skills taught today included: Parenting Education (describe [place] of Security Chapter 5) The patient???s response [...]
--- OUTSIDE RECORDS SUMMARY | 2023-10-22 23:48 | XMS_ITS | Encounter Summary ---
Author Name Unknown Organization [facility] Address 701 [place] [address] Phone Care Team Providers Care English Language Learner Teacher Name Role Phone Unavailable Primary Care Provider Unavailabl e Reason for Visit * Reason Comments Psych Medication Management Encounter Details Date Type Department Care Team Description 06/16/2023 10:00 AM CDT Psych Rehab [facility] 701 [place], [place] [phone] Karoline Benson MD 701 [facility] S1 860 [place], [place] [phone] Psych Medication Management Discharge Disposition: Discharged to [...] original note were not included. Mother Baby [facility], Psychiatry Visit Started the [facility] on[facility] 05/09/23 (admitted to [facility] Psych[place] 06/08-06/15/23) Merry Rooney is a 23 y.o. mother of baby (Aidan born 05/03/23) and 2 year old son (Chuy). Referred by [facility] inpatient initially to the [facility]. Also admitted while she was in the program to [facility] ([place]) 05/24-05/30/23. Cultural Context: white, [place] and Amharic Pronouns: she/her/hers; Supports: Espinosa -- supportive Therapist: ; PCP: ; OB-TRIBAL DELEGATE: Antonio Ob; Diamond Die Polisher: Feeding Method: mainly formula because milk supply [...] while she was in the program to [facility] ([place]) 05/24- 05/30/23. Multiple, recent ED visits for physical sx of anxiety as well as SI - mainly to [place] ED (see 06/02/[address] Esposito for recent summary of ED courses). Admitted to [facility] Psychiatry 06/08-06/15/23) Diagnostic Impression(s) Bipolar II Disorder, current episode depressed, severe with psychotic symptoms PTSD and (Complex Developmental Trauma) Unspecified anxiety (intrusive thoughts) Opioid and alcohol use disorders, by history Multiple closed head injuries and hx of seizure preeclampsia Assessment [place], caring, resilient 23 y.o. mother of 2 following a harrowing course with psychotic symptoms and possible preeclampsia leading to transfer to [place] ICU. Longitudinal course consistent with Complex Developmental Trauma and bipolar spectrum leading to a psychiatric admission ( 05/24- to [facility]) and recent admission to 06/08-06/15/23 [facility]. Improved depression and [...] Discharge planning. Intervening History Recent admission to [facility] Psychiatry reviewed -- [...] 150.0 ng/mL Final Comment: Test Performed by: [facility] [address] [place] [id number] Transferrin 06/12/2023 293 200 - 360 mg/dL [...] when she was 4. Mother lived in [place]. Mother's place was safe space but she [...] reports the following spiritual and/or cultural history: [place] and Amharic background Relationship to her partner/father/co-parent of the [...]
--- OUTSIDE RECORDS SUMMARY | 2023-10-22 23:48 | XMS_ITS | Encounter Summary ---
Author Name Unknown Organization [facility] Address [address] [place] [address] Phone Care Team Providers Care Diversity Manager Name Role Phone Unavailable Primary Care Provider Unavailabl e Reason for Visit * Reason Onset Date Comments Mother Baby - Mental Health Outreach 06/17/2023 Encounter Details Date Type Department Care Team Description 06/17/2023 Telephone [facility] 701 [place] [address] Regina Romero [facility] 701 [place] [address] Mother Baby - Mental Health Outreach Social [...]
--- OUTSIDE RECORDS SUMMARY | 2023-10-22 23:48 | XMS_ITS | Encounter Summary ---
Author Name Unknown Organization [facility] Address [address] [place] [address] Phone Care Team Providers Care Executive Community Planning Name Role Phone Unavailable Primary Care Provider Unavailabl e Reason for Visit * Prior Authorization (Routine) - Closed Specialty Diagnoses / Procedures Referred By Contac t Referred To Contact Psych Rehab Diagnoses Bipolar II disorder () Trauma and stressor-related disorder Procedures MOTHER BABY ENROLLMENT Jazmine Potter, [facility] 701 [place] [address] [address] Referral ID Status Reason Start Date Expiration Date Visits Re quested Visits Authorized [id number] Closed 05/09/2023 06/24/2023 105 105 Encounter Details Date Type Department Care Team Description 06/20/2023 11:00 AM CDT Psych [facility] [address] [place] [address] [phone] Karoline Benson MD 701 [facility] S1 [address]60 [place], [place] [phone] Dh, Mother Baby Discharge Disposition: Discharged to [...] LPCC - 06/20/2023 11:00 AM CDT Dept: [facility] Type of Service: Group Therapy Name of Group: Psychoeducation/Skills Group Provider/Group Cancer Genetics Assistant: Claire Workman LPCC Date of Service: 06/20/2023 Start Time: 11:15 AM Stop Time: 12:00 PM Number of Group Members Present: 3 Location of Service: Face to Face at [facility] Session Content (Intervention): The purpose of this group was to provide education through information-sharing and facilitated group discussion. Handouts were provided and covered in detail. Skills taught today included: Parenting Education (describe [place] of Security Chapter 7) The patient???s response [...]
--- OUTSIDE RECORDS SUMMARY | 2023-10-22 23:48 | XMS_ITS | Encounter Summary ---
Author Name Unknown Organization [facility] Address [address] [place] [address] Phone Care Team Providers Care Hacksaw Inspector Name Role Phone Unavailable Primary Care [...]
--- OUTSIDE RECORDS SUMMARY | 2023-10-22 23:48 | XMS_ITS | Encounter Summary ---
Author Name Unknown Organization [facility] Address [address] [place] [address] Phone Care Team Providers Care Rope Twisting Machine Operator Name Role Phone Unavailable Primary Care Provider Unavailabl e Reason for Visit * Reason Onset Date Comments Mother Baby Documentation 06/08/2023 Encounter Details Date Type Department Care Team Description 06/08/2023 Telephone [facility] [address] [place], [place] [phone] Claire Workman [facility] [address] [facility]. [place], [place] [phone] Mother Baby Documentation Social History Tobacco Use [...]
--- OUTSIDE RECORDS SUMMARY | 2023-10-22 23:48 | XMS_ITS | Encounter Summary ---
Author Name Unknown Organization [facility] Address [address] [place] [address] Phone Care Team Providers Care Crate Liner Name Role Phone Unavailable Primary Care Provider Unavailabl e Reason for Visit * Reason Comments Mother Baby - Family Session Encounter Details Date Type Department Care Team Description 06/07/2023 12:15 PM CDT Telemedicine [facility] [address] [place], [place] [address] Claire Workman, [facility] [address] [place], [place] [phone] Karoline Benson MD 701 [facility] [address] [place], [place] [phone] Mother Baby - Family Session Discharge Disposition: [...] this encounter Progress Notes * Claire Workman, [facility] - 06/07/2023 12:15 PM CDT [facility] Progress Note Date of Service: 06/07/2023 Start Time: 12:15 pm Stop Time: 12:52 pm Location of Visit: Hybrid (pt and infant daughter in person, pt's present via telehealth) Telemedicine: Pneumof[employer] System[employer]art Video Visit: This telemedicine visit is conducted [...]
--- OUTSIDE RECORDS SUMMARY | 2023-10-22 23:48 | XMS_ITS | Encounter Summary ---
Author Name Unknown Organization [facility] Address [address] [place] [address] Phone Care Team Providers Care Customer Service Dispatcher Name Role Phone Unavailable Primary Care Provider Unavailabl e Reason for Visit * Prior Authorization (Routine) - Closed Specialty Diagnoses / Procedures Referred By Contac t Referred To Contact Psych Rehab Diagnoses Bipolar II disorder () Trauma and stressor-related disorder Procedures MOTHER BABY ENROLLMENT Jazmine Potter, [facility] [address] [place] [address] [address] Referral ID Status Reason Start Date Expiration Date Visits Re quested Visits Authorized [id number] Closed 05/09/2023 06/24/[phone] Encounter Details Date Type Department Care Team Description 06/16/2023 11:00 AM CDT [facility] [address] [place] [phone] Karoline Benson MD 701 [facility] [address] [place], [place] [phone] Dh, Mother Baby Discharge Disposition: Discharged to [...] PT - 06/16/2023 11:00 AM CDT Dept: [facility] Type of Service: Group Therapy Provider/Group Gold Leaf Gilder: Sara Cunha PT Date of Service: 06/16/2023 Start Time: 11:00 AM Stop Time: 12:00 PM Number of Group Members Present: 5 Name of Group: Movement Location of Service: Face to Face at a [facility] [employer] SH[employer] HELPER SERVICES PROVIDED (if applicable): No Session Content (Intervention) (including goal/intended outcome): Mindful Movement. Encouraged group members to participate in mind-body skills facilitated by [facility] Trauma-Informed Yoga providers. Trauma-sensitive mind-body skills and [...]
--- OUTSIDE RECORDS SUMMARY | 2023-10-22 23:48 | XMS_ITS | Encounter Summary ---
Author Name Unknown Organization [facility] Address [address] [place] [address] Phone Care Team Providers Care Travel Med Surg Rn Name Role Phone Unavailable Primary Care Provider Unavailabl e Reason for Visit * Prior Authorization (Routine) - Closed Specialty Diagnoses / Procedures Referred By Contac t Referred To Contact Psych Rehab Diagnoses Bipolar II disorder () Trauma and stressor-related disorder Procedures MOTHER BABY ENROLLMENT Jazmine Potter, [facility] [address] [place] [address] [address] Referral ID Status Reason Start Date Expiration Date Visits Re quested Visits Authorized [id number] Closed 05/09/2023 06/24/[phone] Encounter Details Date Type Department Care Team Description 06/20/2023 12:30 PM CDT [facility] [address] [place] [phone] Karoline Benson MD 701 [facility] [address] [place], [place] [phone] Dh, Mother Baby Discharge Disposition: Discharged to [...] OTR/L - 06/20/2023 12:30 PM CDT Dept: [facility] Type of Service: Group Therapy Name of Group: Wellness Group Provider/Group Cutter Aluminum Sheet: Alisha Hardy OTR/L Date of Service: 06/20/2023 Start Time: 12:45 PM Stop Time: 1:30 PM Number of Group Members Present: 4 Location of Service: Face to Face at [facility] COLLIERY CLERK SERVICES PROVIDED (if applicable): No Session [...]
--- OUTSIDE RECORDS SUMMARY | 2023-10-22 23:48 | XMS_ITS | Encounter Summary ---
Author Name Unknown Organization [facility] Address [address] [facility] [place] [address] Phone Care Team Providers Care Contact Center Engineer Name Role Phone Unavailable Primary Care Provider Unavailabl e Reason for Visit * Reason Comments Mother Baby - Family Session * Auth/Cert (Routine) Specialty Diagnoses / Procedures Referred By Contac t Referred To Contact PSYCHIATRY Diagnoses Bipolar II disorder () PTSD (post-traumatic stress disorder) Suicidal ideation Anxiety disorder, unspecified type Ildefonso Aviles MD [address] [place] [address] Psychiatry 3 Inpt (B5) 701 [facility] [address] [place] [address] Referral ID Status Reason Start Date Expiration Date Visits Re quested Visits Authorized [id number] 1 1 Encounter Details Date Type Department Care Team Description 06/15/2023 3:30 PM CDT Telemedicine [facility] [address] [place], [place] [phone] Noy Chen, GLOVE WRAPPER [address] [facility] [address] [place], [place] [phone] Mother Baby - Family Session Discharge Disposition: [...] this encounter Progress Notes * Noy Chen, GLOVE WRAPPER - 06/15/2023 3:30 PM CDT [facility] Progress Note Date of Service: 06/15/2023 Start Time: 3:30pm Stop Time: 4:30pm Location of Visit: Telemedicine: ViewCast Video Visit: This telemedicine visit is conducted by audio and video technology between thepatient and provider. Informed consent was provided during e-check in and signed by patient. Patient was offered opportunity to ask any questions. Patient's Physical Location: Vehicle Provider's Physical Location: Onsite at [facility] Participants in this Visit other than the patient/provider included: Patient's partner. Pt was not present during today's visit. CONSUMER SERVICES ADVISOR SERVICES PROVIDED (if applicable): No Type of [...] Plan: 1. Psychotherapy: Pt to continue in [facility] programming; partner to engage in [...]
--- OUTSIDE RECORDS SUMMARY | 2023-10-22 23:48 | XMS_ITS | Encounter Summary ---
Author Name Unknown Organization [facility] Address [address] [place] [address] Phone Care Team Providers Care Toll Lineman Name Role Phone Unavailable Primary Care Provider Unavailabl e Reason for Visit * Prior Authorization (Routine) - Closed Specialty Diagnoses / Procedures Referred By Contac t Referred To Contact Psych Rehab Diagnoses Bipolar II disorder () Trauma and stressor-related disorder Procedures MOTHER BABY ENROLLMENT Jazmine Potter, [facility] [address] [place] [address] [address] Referral ID Status Reason Start Date Expiration Date Visits Re quested Visits Authorized [id number] Closed 05/09/2023 06/24/[phone] Encounter Details Date Type Department Care Team Description 06/16/2023 1:45 PM CDT [facility] [address] [place] [phone] Karoline Benson MD 701 [facility] [address] [place], [place] [phone] Dh, Mother Baby Discharge Disposition: Discharged to [...] LPCC - 06/16/2023 1:45 PM CDT Dept: [facility] Type of Service: Group Therapy Name of Group: Psychoeducation/Skills Group Provider/Group Ground Wirer: Claire Workman LPCC Date of Service: 06/16/2023 Start Time: 1:45 PM Stop Time: 2:30 PM Number of Group Members Present: 6 Location of Service: Face to Face at [facility] Session Content (Intervention): The purpose of this [...]
--- OUTSIDE RECORDS SUMMARY | 2023-10-22 23:48 | XMS_ITS | Encounter Summary ---
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 8:29 PM documented in this encounter [...] been seen by Dr Mejia at the [facility] and placed on a 72 hr hold due to increased suicidal ideation. She is calm and controlled upon arrival to [facility]. She denies any medical/physical concerns that require [...] has been going. Introduced CBT, including the ryebjcxp-sikhcxwg-opuwknffd interaction triangle. Group today focused : Managing thoughts, feelings, and behaviors. The cognitive model was introduced. The concept of cognitive distortions introduced. A/C Tech provided and personal examples were used to [...] of 7%,normal ferritin. Rosa Astudillo DO PGY-2 Parking Station Attendant * Nursing Assessment - Cyndie Gabriel RN [...] MURPHY says she will reach out to etl programmer to see if there can be an [...] phone and she did not have a light rail vehicle operator. She also doesn't feel comfortable pumping in [...] visit tomorrow and will bring her phone light rail vehicle operator. LC talked to nursing staff. Nurse says [...] 3 hours -Drinking and eating more -Getting light rail vehicle operator for phone to charge for pictures and [...] to page if you have questions. ++++++++++++++++++++++++++++++++++++++++++++++++++++++++++++++++ MULTI NEEDLE MACHINE OPERATOR PRESENT? NO LANGUAGE: Japanese [50] MEDICATIONS: No current facility-administered medications on [...] Counseling/Coordination/Education time 20 minutes. ALEXANDER Jin Services [phone] (MILK) * Nursing Assessment - Micha Yan [...] after she had been seen at the [facility] due to increased suicidal [...] CDT) Iron 32(L) 35 - 145 mcg/dL [facility] Blood 06/12/2023 8:27 AM CDT 06/12/2023 8:50 AM CDT Mervin Middleton MD LABORATORY [facility] [address] [address] * (ABNORMAL) TRANSFERRIN (INCLUDES TIBC) (06/12/2023 8:27 AM CDT) Transferrin 293 200 - 360 mg/dL [facility] IBC 437 298 - 536 mcg/dL [facility] Iron Saturation Percent 7(L) 20 - 50 % [facility] Blood 06/12/2023 8:27 AM CDT 06/12/2023 8:50 AM CDT Mervin Middleton MD LABORATORY Performing Organization Address [facility] Co de Phone Number [facility] [address] [address] * FERRITIN (06/12/2023 8:27 AM CDT) Ferritin 18.9 13.0 - 150.0 ng/mL [facility] Comment: Test Performed by: [facility] [address] [place] [id number] Blood 06/12/2023 8:27 AM CDT 06/12/2023 8:50 AM CDT Mervin Middleton MD LABORATORY Performing Organization Address [facility] Co de Phone Number [facility] [address] [address] * (ABNORMAL) PANEL LIPID (06/11/2023 8:44 AM CDT) HDL 46(L) >=50 mg/dL [facility] Comment: Interpretive Data Normal > 40 Male > 50 Female Cholesterol 152 <=200 mg/dL [facility] Comment: Interpretive Data <200 Desirable 200-239 Borderline high >=240 High Triglyceride 104 <=150 mg/dL [facility] Comment: Interpretive Data <150 Normal 150-199 Borderline high 200-499 High >=500 Very high Calc LDL 85 <=100 mg/dL [facility] Comment: Interpretive Data <100 Desirable 100-129 Above desirable 130-159 Borderline high 160-189 High >=190 Very high Non-HDL Cholesterol Calculated 106 <=130 mg/dL [facility] Comment: Interpretive Data <130 Desirable 130-159 Above desirable 160-189 Borderline high 190-219 High >=220 Very high Blood 06/11/2023 8:44 AM CDT 06/11/2023 9:10 AM CDT Narrative [facility] - 06/11/2023 9:35 AM CDT Fasting: Yes Mrevin Middleton MD LABORATORY [facility] [address] [address] * CT HEAD NO IV CONTRAST (06/10/2023 [...] 909 (Given - Provider: Eryn Romero RN) [place] MED REC REVIEW BY PHARMACY(Linked Group 1) [...] Humera Christiansen RN) 903 (Given - Provider: Biun Street RN) lamoTRIgine (LaMICtal) tablet 50 mg [...]
--- OUTSIDE RECORDS SUMMARY | 2023-10-22 23:48 | XMS_ITS | Encounter Summary ---
Author Name Unknown Organization [facility] Address [address] [place] [address] Phone Care Team Providers Care Braille Teacher Name Role Phone Unavailable Primary Care Provider Unavailabl e Reason for Visit * Prior Authorization (Routine) - Closed Specialty Diagnoses / Procedures Referred By Contac t Referred To Contact Psych Rehab Diagnoses Bipolar II disorder () Trauma and stressor-related disorder Procedures MOTHER BABY ENROLLMENT Jazmine Potter, [facility] [address] [place] [address] [address] Referral ID Status Reason Start Date Expiration Date Visits Re quested Visits Authorized [id number] Closed 05/09/2023 06/24/2023 105 105 Encounter Details Date Type Department Care Team Description 06/16/2023 9:30 AM CDT [facility] [address] [place] [address] [phone] Karoline Benson MD 701 [facility] S1 [address]60 [place], [place] [phone] Dh, Mother Baby Discharge Disposition: Discharged to [...]
--- OUTSIDE RECORDS SUMMARY | 2023-10-22 23:48 | XMS_ITS | Encounter Summary ---
Author Name Unknown Organization [facility] Address [address] [place] [address] Phone Care Team Providers Care Metal Furniture Glazier Name Role Phone Unavailable Primary Care Provider [...]
--- OUTSIDE RECORDS SUMMARY | 2023-10-22 23:48 | XMS_ITS | Encounter Summary ---
Author Name Unknown Organization [facility] Address [address] [place] [address] Phone Care Team Providers Care Paraoptometric Name Role Phone Unavailable Primary Care Provider Unavailabl e Reason for Visit * Reason Comments Psych Medication Management Encounter Details Date Type Department Care Team Description 06/06/2023 10:00 AM CDT Psych Rehab [facility] [address] [place], [place] [phone] Karoline Benson MD 701 [facility] S1 [address]60 [place], [place] [phone] Psych Medication Management Discharge Disposition: Discharged to [...] note were not included. Mother Baby [facility], Psychiatry Visit Started the [facility] on: 05/09/23 Merry Rooney is a 23 y.o. mother of baby (Aidan born 05/03/23) and 2 year old son (Chuy). Referred by [facility] inpatient initially to the [facility]. Also admitted while she was in the program to [facility] ([place], [place]) 05/24-05/30/23. Cultural Context: white, Portuguese and French Pronouns: she/her/hers; Supports: Jesús -- supportive Therapist: ; PCP: ; OB-CASE MANAGER: Antonio Ob; Document Imaging Manager: Feeding Method: mainly formula because milk supply [...] while she was in the program to [facility] ([place] [place]) 05/24-05/30/23. 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 mother of 2 following a harrowing course with psychotic symptoms and possible preeclampsia leading to transfer to [facility] ICU. Longitudinal course consistent with Complex Developmental Trauma and bipolar spectrum. Feeling better now after recent psy chiatric admission (05/24-) to [facility] for increased SI, paranoia, and auditory hallucinations. [...] individual and group therapy process in the [facility]. 6) Review old records. 7) Contact [...] when she was 4. Mother lived in [place]. 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 Legal: no had involvement with the legal system. The patient reports the following spiritual and/or cultural history: Portuguese and French background Relationship to her partner/father/co-parent of the [...]
--- OUTSIDE RECORDS SUMMARY | 2023-10-22 23:48 | XMS_ITS | Encounter Summary ---
Author Name Unknown Organization [facility] Address [address] [place] [address] Phone Care Team Providers Care Flue Gas Analyst Name Role Phone Unavailable Primary Care Provider Unavailabl e Reason for Visit * Prior Authorization (Routine) - Closed Specialty Diagnoses / Procedures Referred By Contac t Referred To Contact Psych Rehab Diagnoses Bipolar II disorder () Trauma and stressor-related disorder Procedures MOTHER BABY ENROLLMENT Jazmine Potter, [facility] [address] [place] [address] [address] Referral ID Status Reason Start Date Expiration Date Visits Re quested Visits Authorized [id number] Closed 05/09/2023 06/24/2023 105 105 Encounter Details Date Type Department Care Team Description 06/20/2023 1:45 PM CDT Psych Rehab [facility] [address] [place] [address] [phone] Karoline Benson MD 701 [facility] S1 860 [place], [place] [phone] Dh, Mother Baby Discharge Disposition: Discharged to [...] LICSW - 06/20/2023 1:45 PM CDT Dept: [facility] Family [facility] Type of Service: Group Therapy Name of Group: Psychoeducation/Skills Group Provider/Group Domestic Freight Forwarder: Jazmine Potter LICSW Date of Service: 06/20/2023 Start Time: 1:45 PM Stop Time: 2:30 PM Number of Group Members Present: 3 Location of Service: Face to Face at [facility] SHUTTLE OPERATOR SERVICES PROVIDED (if applicable): No Session [...]
--- OUTSIDE RECORDS SUMMARY | 2023-10-22 23:48 | XMS_ITS | Encounter Summary ---
Author Name Unknown Organization [facility] Address [address] [place] [address] Phone Care Team Providers Care China Decorator Name Role Phone Unavailable Primary Care Provider Unavailabl e Reason for Visit * Reason Onset Date Comments Psych Medication Management 06/08/2023 Encounter Details Date Type Department Care Team Description 06/08/2023 11:30 AM CDT Psych Rehab [facility] Family [facility] [address] [place] [address] [phone] Karissa Mejia MD [address] [place] [address] [phone] Psych Medication Management Discharge Disposition: Discharged to [...] original note were not included. Mother Baby [facility], Psychiatry Visit Started the [facility] on: 05/09/23 Merry Rooney is a 23 y.o. mother of baby (Aidan born 05/03/23) and 2 year old son (Chuy). Referred by [facility] inpatient initially to the [facility]. Also admitted while she was in the program to [facility] ([place], [place]) 05/24-05/30/23. Cultural Context: white, Maori and Romanian Pronouns: she/her/hers; Supports: [place] -- supportive Therapist: ; PCP: ; OB-HEARING HEALTH TECHNICIAN: Antonio Ob; Land Leasing Information Clerk: Feeding Method: mainly formula because milk supply [...] while she was in the program to [facility] ([place], [place]) 05/24- 05/30/23. Multiple, recent ED visits for physical sx of anxiety as well as SI - mainly to [place] [facility] ED (see 06/02/[address] Esposito for recent summary of ED courses). Diagnostic Impression(s) Bipolar II Disorder, current episode depressed, severe with psychotic symptoms PTSD and (Complex Developmental Trauma) Unspecified anxiety (intrusive thoughts) Opioid and alcohol use disorders, by history Multiple closed head injuries and hx of seizure preeclampsia Assessment [place], caring, resilient 23 y.o. mother of 2 following a harrowing course with psychotic symptoms and possible preeclampsia leading to transfer to [facility]. Longitudinal course consistent with Complex Developmental Trauma and bipolar spectrum. Recent psychiatric admission (05/24- ) to [facility] and multiple, subsequent visits to outside [...] when she was 4. Mother lived in [place]. 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 Legal: no had involvement with the legal system. The patient reports the following spiritual and/or cultural history: Maori and Romanian background Relationship to her partner/father/co-parent of the [...]
--- OUTSIDE RECORDS SUMMARY | 2023-10-22 23:49 | XMS_ITS | Encounter Summary ---
Author Name Unknown Organization [facility] Address [address] [place] [address] Phone Care Team Providers Care Metal Wire Coating Operator Name Role Phone Unavailable Primary Care Provider Unavailabl e Reason for Visit * Reason Comments Blood Pressure Check Encounter Details Date Type Department Care Team Description 05/23/2023 Documentation Only [facility] Family [facility] [address] [place] [address] [phone] Kiana Borges RN [facility] 701 [place] [address] Blood Pressure Check Social History Tobacco Use [...]
--- OUTSIDE RECORDS SUMMARY | 2023-10-22 23:49 | XMS_ITS | Encounter Summary ---
Author Name Unknown Organization [facility] Address [address] [place] [address] Phone Care Team Providers Care Glue Wheel Operator Name Role Phone Unavailable Primary Care Provider Unavailabl e Encounter Details Date Type Department Care Team Description 05/19/2023 12:00 PM CDT Psych Rehab [facility] [address] [place] [address] [phone] Ray Esposito MD [address] [address] Discharge Disposition: Discharged to home or self [...] 12:00 PM CDT Not seen by this senior copywriter in [facility] today. documented in this encounter Plan of Treatment Not on file documented as of this encounter Visit Diagnoses Not on filedocumented in this encounter Additional Health Concerns Assessment Noted Time PHQ-9 Depression Total Score: 12 023 3:14 PM CDT PHQ-2 Depression Total Score: 2 05/18/20 23 3:14 PM CDT documented as of this encounter
--- OUTSIDE RECORDS SUMMARY | 2023-10-22 23:49 | XMS_ITS | Encounter Summary ---
Author Name Unknown Organization [facility] Address [address] [place] [address] Phone Care Team Providers Care Healthcare Receptionist Name Role Phone Unavailable Primary Care Provider Unavailabl e Reason for Visit * Prior Authorization (Routine) - Closed Specialty Diagnoses / Procedures Referred By Contac t Referred To Contact Psych Rehab Diagnoses Bipolar II disorder () Trauma and stressor-related disorder Procedures MOTHER BABY ENROLLMENT Jazmine Potter, [facility] [address] [place] [address] [address] Referral ID Status Reason Start Date Expiration Date Visits Re quested Visits Authorized [id number] Closed 05/09/2023 06/24/2023 105 105 Encounter Details Date Type Department Care Team Description 06/02/2023 12:30 PM CDT [facility] [address] [place] [address] [phone] Karoline Benson MD 701 [facility] S[address]60 [place], [place] [phone] Dh, Mother Baby Discharge Disposition: Discharged to [...] LPCC - 06/02/2023 12:30 PM CDT Dept: [facility] Type of Service: Group Therapy Name of Group: Psychoeducation/Skills Group Provider/Group Net Developer Architect: Claire Workman LPCC Date of Service: 06/02/2023 Start Time: 12:45 PM Stop Time: 1:30 PM Number of Group Members Present: 4 Location of Service: Face to Face at [facility] Session Content (Intervention): The purpose of this group was to provide education through information-sharing and facilitated group discussion. Handouts were provided and covered in detail. Skills taught today included: Parenting Education (describe Darby of Security Chapter 4) The patient???s response [...]
--- OUTSIDE RECORDS SUMMARY | 2023-10-22 23:49 | XMS_ITS | Encounter Summary ---
Author Name Unknown Organization [facility] Address [address] [place] [address] Phone Care Team Providers Care Patrol Inspector Name Role Phone Unavailable Primary Care Provider Unavailabl e Reason for Visit * Prior Authorization (Routine) - Closed Specialty Diagnoses / Procedures Referred By Contac t Referred To Contact Psych Rehab Diagnoses Bipolar II disorder () Trauma and stressor-related disorder Procedures MOTHER BABY ENROLLMENT Jazmine Potter, [facility] [address] [place] [address] [address] Referral ID Status Reason Start Date Expiration Date Visits Re quested Visits Authorized [id number] Closed 05/09/2023 06/24/2023 105 105 Encounter Details Date Type Department Care Team Description 06/06/2023 11:00 AM CDT [facility] [address] [place] [address] [phone] Karoline Benson MD 701 [facility] S1 [address]60 [place], [place] [phone] Dh, Mother Baby Discharge Disposition: Discharged to [...] LICSW - 06/06/2023 11:00 AM CDT Dept: [facility] Type of Service: Group Therapy Name of Group: Psychoeducation/Skills Group Provider/Group Linotype Worker: Jazmine Potter LICSW Date of Service: 06/06/2023 Start Time: 11:15 AM Stop Time: 12:00 PM Number of Group Members Present: 4 Location of Service: Face to Face at [facility] ELECTRO MECHANICAL ASSEMBLER SERVICES PROVIDED (if applicable): No Session Content [...]
--- OUTSIDE RECORDS SUMMARY | 2023-10-22 23:49 | XMS_ITS | Encounter Summary ---
Author Name Unknown Organization [facility] Address [address] [place] [address] Phone Care Team Providers Care Certified Medical Coder Name Role Phone Unavailable Primary Care Provider Unavailabl e Reason for Visit * Prior Authorization (Routine) - Closed Specialty Diagnoses / Procedures Referred By Contac t Referred To Contact Psych Rehab Diagnoses Bipolar II disorder () Trauma and stressor-related disorder Procedures MOTHER BABY ENROLLMENT Jazmine Potter, [facility] [address] [place] [address] [address] Referral ID Status Reason Start Date Expiration Date Visits Re quested Visits Authorized [id number] Closed 05/09/2023 06/24/2023 105 105 Encounter Details Date Type Department Care Team Description 05/23/2023 12:30 PM CDT [facility] [address] [place] [address] [phone] Karoline Benson MD 701 [facility] S1 [address]60 [place], [place] [phone] Dh, Mother Baby Discharge Disposition: Discharged to [...] RN - 05/23/2023 12:30 PM CDT Dept: [facility] Type of Service: Group Therapy Provider/Group District Customs Director: Kiana Borges RN Date of Service: 05/23/2023 Start Time: 12:45 PM Stop Time: 1:30 PM Number of Group Members Present: 6 Name of Group: Psycho education Location of Service: Face to Face at [facility] INDUSTRIAL GAS SERVICER HELPER SERVICES PROVIDED (if applicable): No Session Content of Today's Group (including goal/intended outcome): Medications. The patient's response to the intervention: Kiana Borges RN Name of Group: Psycho education Location of Service: Face to Face at [facility] INDUSTRIAL GAS SERVICER HELPER SERVICES PROVIDED (if applicable): No Session [...] present with her. P: To continue with [facility]. Encourage follow up in psychotherapy group regarding [...]
--- OUTSIDE RECORDS SUMMARY | 2023-10-22 23:49 | XMS_ITS | Encounter Summary ---
Author Name Unknown Organization [facility] Address [address] [place] [address] Phone Care Team Providers Care Field Service Technician Name Role Phone Unavailable Primary Care Provider Unavailabl e Reason for Visit * Reason Onset Date Comments Follow-up 05/27/2023 Encounter Details Date Type Department Care Team Description 05/27/2023 Telephone [facility] Family [facility] 701 [place], [place] [phone] Kiana Borges RN [facility] 701 [place] [address] Follow-up Social History Tobacco Use Types Packs/Day [...] staff that she has been hospitalized in [place] at [facility]. Pt stated They have stated I [...]
--- OUTSIDE RECORDS SUMMARY | 2023-10-22 23:49 | XMS_ITS | Encounter Summary ---
Author Name Unknown Organization [facility] Address [address] [place] [address] Phone Care Team Providers Care Claims Analyst Name Role Phone Unavailable Primary Care Provider Unavailabl e Encounter Details Date Type Department Care Team Description 06/02/2023 10:00 AM CDT Psych Rehab [facility] [address] [place] [address] Ray Esposito MD [address] [address] Discharge Disposition: Discharged to home or self [...] MD - 06/02/2023 10:00 AM CDT 06/02/2023 [facility]-baby day hospital [facility] Medication follow-up Interim history - seen by this information writer previously on 05/23/23 - and subsequently by on 06/01/23. After delivery of her baby girl on 05/03/23 had returned home - but had then experienced visual hallucinations. Her then called 911 and she was hospitalized in [place], [place]. While there her BP was very unstable and she had a seizure (imaging apparently demonstrated brain swelling and because of very elevated BP she was then airlifted to [facility] in [facility]. She was discharged home - then was seen on 05/23/23 ( [facility]) at which time she described worrisome symptoms which were felt to possibly represent akathesia. On a trial basis, Risperidone (even though in low dosage) was discontinued and prn Hydroxyzine substituted. However on 05/24/23 she became acutely paranoid and delusional - and was then transferred to [place], [place] ([facility]) - and stabilized there (on Olanzapine ) - eventually discharged home to [place] on 05/30/23. Later on 06/01/23 she was again evaluated at the [facility] mother-baby clinic - by Karissa Mejia M.D. - who noted that patient had been again seen in a local urgent-care clinic (in [place], [place]) - where BP was elevated and [...] review. Today Merry is seen by this information writer in the [facility]. All recent notes are reviewed. Fully alert [...] legs. However on formal evaluation by this information writer today, there is no noticeable tremor [...] dosage increases likely needed [facility] [place] - continue Lamictal titration (Guanfacine discontinued). - [...]
--- OUTSIDE RECORDS SUMMARY | 2023-10-22 23:49 | XMS_ITS | Encounter Summary ---
Author Name Unknown Organization [facility] Address [address] [place] [address] Phone Care Team Providers Care Oracle Ebs Architect Name Role Phone Unavailable Primary Care Provider Unavailabl e Reason for Visit * Prior Authorization (Routine) - Closed Specialty Diagnoses / Procedures Referred By Contac t Referred To Contact Psych Rehab Diagnoses Bipolar II disorder () Trauma and stressor-related disorder Procedures MOTHER BABY ENROLLMENT Jazmine Potter, [facility] [address] [place] [address] [address] Referral ID Status Reason Start Date Expiration Date Visits Re quested Visits Authorized [id number] Closed 05/09/2023 06/24/2023 105 105 Encounter Details Date Type Department Care Team Description 06/02/2023 1:45 PM CDT [facility] [address] [place] [address] [phone] Karoline Benson MD 701 [facility] S1 860 [place], [place] [phone] Dh, Mother Baby Discharge Disposition: Discharged to [...] - 06/02/2023 1:45 PM CDT Dept: [facility] Type of Service: Group Therapy Name of Group: Psychoeducation/Skills Group Provider/Group Sidewalk Inspector: Claire Workman LPCC Date of Service: 06/02/2023 Start Time: 1:45 PM Stop Time: 2:30 PM Number of Group Members Present: 3 Location of Service: Face to Face at [facility] Session Content (Intervention): The purpose of [...]
--- OUTSIDE RECORDS SUMMARY | 2023-10-22 23:49 | XMS_ITS | Encounter Summary ---
Author Name Unknown Organization [facility] Address 701 [facility] [place] [address] Phone Care Team Providers Care Machine Assembler Supervisor Name Role Phone Unavailable Primary Care Provider Unavailabl e Reason for Visit * Reason Onset Date Comments Mother Baby - Mental Health Outreach 06/03/2023 Encounter Details Date Type Department Care Team Description 06/03/2023 Telephone [facility] 701 [place], [place] 153195 Claire Workman, [facility] 701 [facility] [place], [place] [phone] Mother Baby - Mental Health Outreach Social [...] Notes * Telephone Encounter - Claire Workman, [facility] - 06/03/2023 12:57 PM CDT Called pt [...]
--- OUTSIDE RECORDS SUMMARY | 2023-10-22 23:49 | XMS_ITS | Encounter Summary ---
Author Name Unknown Organization [facility] Address 701 [place] [address] Phone Care Team Providers Care Market Researcher Name Role Phone Unavailable Primary Care Provider Unavailabl e Reason for Visit * Reason Onset Date Comments Mother Baby - Mental Health Outreach 05/24/2023 Encounter Details Date Type Department Care Team Description 05/24/[address] [facility] 701 [place], [place] [phone] Jazmine Potter, ADMITTING INTERVIEWER 701 [place], [place] [phone] Mother Baby - Mental Health Outreach Social [...] Notes * Telephone Encounter - Jazmine Potter ADMITTING INTERVIEWER - 05/25/2023 9:55 AM CDT It Support Consultant spoke with patient who reported that she was currently in ED [facility]. Patient stated, all signs are pointing to psychosis. Endorsed increased paranoia since Tuesday evening and hearing whispers. It Support Consultant offered emotional support and ensured patient that [facility] is available upon discharge from the hospital. Patient expressed relief to hear this. Ensured that she is currently safe in ED and stated that she will be in touch with [facility] upon discharge to return to programming. [...]
--- OUTSIDE RECORDS SUMMARY | 2023-10-22 23:49 | XMS_ITS | Encounter Summary ---
Author Name Unknown Organization [facility] Address [address] [place] [address] Phone Care Team Providers Care Grader Meat Name Role Phone Unavailable Primary Care Provider Unavailabl e Encounter Details Date Type Department Care Team Description 05/23/2023 10:00 AM CDT Psych Rehab [facility] [address] [place] [phone] Ray Esposito MD [address] [address] Discharge Disposition: Discharged to home or self [...] MD - 05/23/2023 10:00 AM CDT 05/23/2023 [facility] mother-baby day [facility] ([facility]) Medication follow-up. Patient seen in-person today. Medical records reviewed (Epic). Recent clinical status discussed with therapy staff. Start time: 10:00 a.m. Finish time: 10:30 a.m. Interviewed in-person in [facility] today. Seen together with her baby daughter. [...] (prescription called in to [facility] in [place]) - continue Guanfacine (and Nifedipine basically on a prn basis). Ray Esposito M.D. documented in this encounter Miscellaneous Notes * Group Note - Jazmine Potter LICSW - 05/23/2023 10:00 AM CDT Dept: [facility] Type of Service: Group Therapy Name of Group: Psychoeducation/Skills Group Provider/Group Sustain Engineer: Jazmine Potter LICSW Date of Service: 05/23/2023 Start Time: 9:30 AM Stop Time: 10:15 AM Number of Group Members Present: 5 Location of Service: Face to Face at [facility] [employer]AV[employer]QUIPMENT [employer] PROVIDED (if applicable): No Session Content [...]
--- OUTSIDE RECORDS SUMMARY | 2023-10-22 23:49 | XMS_ITS | Encounter Summary ---
Author Name Unknown Organization [facility] Address [address] [place] [address] Phone Care Team Providers Care Pants Closer Name Role Phone Unavailable Primary Care Provider Unavailabl e Reason for Visit * Prior Authorization (Routine) - Closed Specialty Diagnoses / Procedures Referred By Contac t Referred To Contact Psych Rehab Diagnoses Bipolar II disorder () Trauma and stressor-related disorder Procedures MOTHER BABY ENROLLMENT Jazmine Potter, [facility] 701 [place] [address] [address] Referral ID Status Reason Start Date Expiration Date Visits Re quested Visits Authorized [id number] Closed 05/09/2023 06/24/2023 105 105 Encounter Details Date Type Department Care Team Description 05/19/2023 1:30 PM CDT [facility] [address] [place] [address] [phone] Karoline Benson MD 701 [facility] S1 860 [place], [place] [phone] Dh, Mother Baby Discharge Disposition: Discharged to [...] LPCC - 05/19/2023 1:30 PM CDT Dept: [facility] Type of Service: Group Therapy Name of Group: Psychoeducation/Skills Group Provider/Group Medical Office Specialist: Claire Workman LPCC Date of Service: 05/19/2023 [...]
--- OUTSIDE RECORDS SUMMARY | 2023-10-22 23:49 | XMS_ITS | Encounter Summary ---
Author Name Unknown Organization [facility] Address [address] [place] [address] Phone Care Team Providers Care Community Health Agent Name Role Phone Unavailable Primary Care Provider Unavailabl e Reason for Visit * Prior Authorization (Routine) - Closed Specialty Diagnoses / Procedures Referred By Contac t Referred To Contact Psych Rehab Diagnoses Bipolar II disorder () Trauma and stressor-related disorder Procedures MOTHER BABY ENROLLMENT Jazmine Potter, [facility] [address] [place] [address] [address] Referral ID Status Reason Start Date Expiration Date Visits Re quested Visits Authorized [id number] Closed 05/09/2023 06/24/2023 105 105 Encounter Details Date Type Department Care Team Description 05/23/2023 1:45 PM CDT [facility] [address] [place] [address] [phone] Karoline Benson MD 701 [facility] S1 860 [place], [place] [phone] Dh, Mother Baby Discharge Disposition: Discharged to [...] LICSW - 05/23/2023 1:45 PM CDT Dept: [facility] Type of Service: Group Therapy Name of Group: Psychoeducation/Skills Group Provider/Group Pediatrician: Jazmine Potter LICSW Date of Service: 05/23/2023 Start Time: 1:45 PM Stop Time: 2:30 PM Number of Group Members Present: 5 Location of Service: Face to Face at [facility] SOLE TIER SERVICES PROVIDED (if applicable): No Session Content [...]
--- OUTSIDE RECORDS SUMMARY | 2023-10-22 23:49 | XMS_ITS | Encounter Summary ---
Author Name Unknown Organization [facility] Address [address] [place] [address] Phone Care Team Providers Care Juke Box Mechanic Name Role Phone Unavailable Primary Care Provider Unavailabl e Reason for Visit * Reason Onset Date Comments Psych Medication Management 05/18/2023 Encounter Details Date Type Department Care Team Description 05/18/2023 11:00 AM CDT Psych Rehab [facility] [address] [place] [address] [phone] Karissa Mejia MD [address] [place] [address] [phone] Psych Medication Management Discharge Disposition: Discharged to [...] 2 year old son (Chuy). Referred by [facility] inpatient Cultural Context: white, Lao and Mongolian Pronouns: she/her/hers; Supports: Espinosa -- supportive Therapist: ; PCP: ; OB-ELIGIBILITY AND OCCUPANCY INTERVIEWER: Antonio Ob; Inpatient Care Manager Rn: Feeding Method: breast and bottle feeding with [...] possible pr eeclampsia leading to transfer to [facility] ICU. Seen by psychiatry (Dr Ortiz) at [facility], discontinued from her sertraline and started on [...] formula) 3) LABS: Will review labs in [facility] 4) Continue to monitor symptoms 5) Engage patient in individual and group therapy process [facility] the [facility]. 6) Review old records. 7) Contact collateral [...] when she was 4. Mother lived in [place]. 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 Legal: no had involvement with the legal system. The patient reports the following spiritual and/or cultural history: Lao and Mongolian background Relationship to her partner/father/co-parent of the [...]
--- OUTSIDE RECORDS SUMMARY | 2023-10-22 23:49 | XMS_ITS | Encounter Summary ---
Author Name Unknown Organization [facility] Address [address] [place] [address] Phone Care Team Providers Care Teenage Program Director Name Role Phone Unavailable Primary Care Provider Unavailabl e Reason for Visit * Prior Authorization (Routine) - Closed Specialty Diagnoses / Procedures Referred By Contac t Referred To Contact Psych Rehab Diagnoses Bipolar II disorder () Trauma and stressor-related disorder Procedures MOTHER BABY ENROLLMENT Jazmine Potter, [facility] 701 [place] [address] [address] Referral ID Status Reason Start Date Expiration Date Visits Re quested Visits Authorized [id number] Closed 05/09/2023 06/24/2023 105 105 Encounter Details Date Type Department Care Team Description 06/06/2023 9:30 AM CDT [facility] [address] [place] [address] [phone] Karoline Benson MD 701 [facility] S1 860 [place], [place] [phone] Dh, Mother Baby Discharge Disposition: Discharged to [...] LICSW - 06/06/2023 9:30 AM CDT Dept: [facility] Type of Service: Group Therapy Name of Group: Psychoeducation/Skills Group Provider/Group Filer Metal Patterns: Jazmine Potter LICSW Date of Service: 06/06/2023 Start Time: 9:30 AM Stop Time: 10:15 AM Number of Group Members Present: 5 Location of Service: Face to Face at [facility] RN CORRECTIONS SERVICES PROVIDED (if applicable): No Session Content [...]
--- OUTSIDE RECORDS SUMMARY | 2023-10-22 23:49 | XMS_ITS | Encounter Summary ---
Author Name Unknown Organization [facility] Address [address] [place] [address] Phone Care Team Providers Care Transmissions Systems Operator Name Role Phone Unavailable Primary Care Provider Unavailabl e Reason for Visit * Prior Authorization (Routine) - Closed Specialty Diagnoses / Procedures Referred By Contac t Referred To Contact Psych Rehab Diagnoses Bipolar II disorder () Trauma and stressor-related disorder Procedures MOTHER BABY ENROLLMENT Jazmine Potter, [facility] 701 [place] [address] [address] Referral ID Status Reason Start Date Expiration Date Visits Re quested Visits Authorized [id number] Closed 05/09/2023 06/24/2023 105 105 Encounter Details Date Type Department Care Team Description 05/19/2023 10:15 AM CDT [facility] [address] [place] [address] [phone] Karoline Benson MD 701 [facility] S1 860 [place], [place] [phone] Dh, Mother Baby Discharge Disposition: Discharged to [...] LPCC - 05/19/2023 10:15 AM CDT Dept: [facility] Type of Service: Group Therapy Name of Group: Psychotherapy Process Group Provider/Group Strip Catcher: Claire Workman LPCC Date of Service: 05/19/2023 Start Time: 10:15 AM Stop Time: 11:00 AM Number of Group Members Present: 5 Location of Service: Face to Face at [facility] Session Content of Today's Group: At the [...]
--- OUTSIDE RECORDS SUMMARY | 2023-10-22 23:49 | XMS_ITS | Encounter Summary ---
Author Name Unknown Organization [facility] Address [address] [place] [address] Phone Care Team Providers Care Household Worker Name Role Phone Unavailable Primary Care Provider Unavailabl e Reason for Visit * Prior Authorization (Routine) - Closed Specialty Diagnoses / Procedures Referred By Contac t Referred To Contact Psych Rehab Diagnoses Bipolar II disorder () Trauma and stressor-related disorder Procedures MOTHER BABY ENROLLMENT Jazmine Potter, [facility] 701 [place] [address] [address] Referral ID Status Reason Start Date Expiration Date Visits Re quested Visits Authorized [id number] Closed 05/09/2023 06/24/2023 105 105 Encounter Details Date Type Department Care Team Description 06/01/2023 11:00 AM CDT [facility] [address] [place] [address] [phone] Karoline Benson MD 701 [facility] S1 [phone] Dh, Mother Baby Discharge Disposition: Discharged to [...] RN - 06/01/2023 11:00 AM CDT Dept: [facility] Type of Service: Group Therapy Provider/Group Bridges Supervisor: Kiana Borges RN Date of Service: 06/01/2023 Start Time: 11:15 AM Stop Time: 12:00 PM Number of Group Members Present: 5 Name of Group: Movement Location of Service: Face to Face at [facility] FISCAL AGENT SERVICES PROVIDED (if applicable): No Session Content (Intervention) (including goal/intended outcome): Encouraged group members to participate in mind-body skills facilitated by [facility] Trauma- Informed Yoga providers. Trauma-sensitive mind-body skills [...]
--- OUTSIDE RECORDS SUMMARY | 2023-10-22 23:49 | XMS_ITS | Encounter Summary ---
Author Name Unknown Organization [facility] Address [address] [place] [address] Phone Care Team Providers Care Call Out Clerk Name Role Phone Unavailable Primary Care Provider Unavailabl e Reason for Visit * Reason Onset Date Comments Psych Medication Management 06/01/2023 * Prior Authorization (Routine) - Closed Specialty Diagnoses / Procedures Referred By Bernardo belle Referred To Contact Psych Rehab Diagnoses Bipolar II disorder () Trauma and stressor-related disorder Procedures MOTHER BABY ENROLLMENT Jazmine Potter, [facility] [address] [place] [address] [address] [address] [address] Referral ID Status Reason Start Date Expiration Date Visits Re quested Visits Authorized [id number] Closed 05/09/2023 06/24/2023 105 105 Encounter Details Date Type Department Care Team Description 06/01/2023 10:00 AM CDT [facility] [address] [place] [address] [phone] Karissa Mejia MD 701 [place], [place] 116[address] Psych Medication Management Discharge Disposition: Discharged to [...] original note were not included. [facility], Psychiatry Visit Started the [facility] on: 05/09/23 Merry Rooney is a 23 y.o. mother of baby (Aidan born 05/03/23) and 2 year old son (Chuy). Referred by [facility] Cultural Context: white, Gabonese and Hungarian Pronouns: she/her/hers; Supports: Espinosa -- supportive Therapist: ; PCP: ; OB-APPLICATIONS TRAINER: Antonio Ob; Software Administrator: Feeding Method: breast and bottle feeding with [...] symptoms [place]. Longitudinal course consistent with Complex Developmental [...] individual and group therapy process in the [facility]. 6) Review old records. 7) Contact [...] when she was 4. Mother lived in [place]. 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 Legal: no had involvement with the legal system. The patient reports the following spiritual and/or cultural history: Gabonese and Hungarian background Relationship to her partner/father/co-parent of the [...]
--- OUTSIDE RECORDS SUMMARY | 2023-10-22 23:49 | XMS_ITS | Encounter Summary ---
Author Name Unknown Organization [facility] Address [address] [place] [address] Phone Care Team Providers Care Senior Sustainability Consultant Name Role Phone Unavailable Primary Care Provider Unavailabl e Reason for Visit * Prior Authorization (Routine) - Closed Specialty Diagnoses / Procedures Referred By Contac t Referred To Contact Psych Rehab Diagnoses Bipolar II disorder () Trauma and stressor-related disorder Procedures MOTHER BABY ENROLLMENT Jazmine Potter, [facility] [address] [place] [address] [address] [address] [address] Referral ID Status Reason Start Date Expiration Date Visits Re quested Visits Authorized [id number] Closed 05/09/2023 06/24/2023 105 105 Encounter Details Date Type Department Care Team Description 05/19/2023 12:30 PM CDT [facility] [address] [place] [address] [phone] Karoline Benson MD 701 [facility] S1 860 [place], [place] [phone] Dh, Mother Baby Discharge Disposition: Discharged to [...] LPCC - 05/19/2023 12:30 PM CDT Dept: [facility] Type of Service: Group Therapy Name of Group: Psychoeducation/Skills Group Provider/Group Tin Dipper: Claire Workman LPCC Date of Service: 05/19/2023 Start Time: 12:45 PM Stop Time: 1:30 PM Number of Group Members Present: 5 Location of Service: Face to Face at [facility] Session Content (Intervention): The purpose of this group was to provide education through information-sharing and facilitated group discussion. Handouts were provided and covered in detail. Skills taught today included: Parenting Education (describe [place] of Security Chapters 1 and 2) The [...]
--- OUTSIDE RECORDS SUMMARY | 2023-10-22 23:49 | XMS_ITS | Encounter Summary ---
Author Name Unknown Organization [facility] Address 701 [place] [address] Phone Care Team Providers Care Motion Picture Camera Operator Name Role Phone Unavailable Primary Care Provider Unavailabl e Encounter Details Date Type Department Care Team Description 05/31/2023 Telephone [facility] 701 [place] [address] Kiana Borges RN [facility] 701 [place] [address] Social History Tobacco Use Types Packs/Day Years [...] Pt called and requested to speak with real estate underwriter. Pt reported she has an appt with [...]
--- OUTSIDE RECORDS SUMMARY | 2023-10-22 23:49 | XMS_ITS | Encounter Summary ---
Author Name Unknown Organization [facility] Address [address] [place] [address] Phone Care Team Providers Care Byproduct Engineer Name Role Phone Unavailable Primary Care Provider Unavailabl e Reason for Visit * Prior Authorization (Routine) - Closed Specialty Diagnoses / Procedures Referred By Contac t Referred To Contact Psych Rehab Diagnoses Bipolar II disorder () Trauma and stressor-related disorder Procedures MOTHER BABY ENROLLMENT Jazmine Potter, [facility] [address] [place] [address] [address] Referral ID Status Reason Start Date Expiration Date Visits Re quested Visits Authorized [id number] Closed 05/09/2023 06/24/2023 105 105 Encounter Details Date Type Department Care Team Description 05/23/2023 11:00 AM CDT Psych [facility] [address] [place] [address] [phone] Karoline Benson MD 701 [facility] S1 [address]60 [place], [place] [phone] Dh, Mother Baby Discharge Disposition: Discharged to [...] LPCC - 05/23/2023 11:00 AM CDT Dept: [facility] Type of Service: Group Therapy Name of Group: Psychoeducation/Skills Group Provider/Group Radiator Fitter: Claire Workman LPCC Date of Service: 05/23/2023 Start Time: 11:15 AM Stop Time: 12:00 PM Number of Group Members Present: 5 Location of Service: Face to Face at [facility] Session Content (Intervention): The purpose of this group was to provide education through information-sharing and facilitated group discussion. Handouts were provided and covered in detail. Skills taught today included: Parenting Education (describe [place] of Security Chapter 2) The patient???s response [...]
--- OUTSIDE RECORDS SUMMARY | 2023-10-22 23:49 | XMS_ITS | Encounter Summary ---
Author Name Unknown Organization [facility] Address [address] [place] [address] Phone Care Team Providers Care Topographical Engineer Name Role Phone Unavailable Primary Care Provider Unavailabl e Reason for Visit * Reason Comments Blood Pressure Check Encounter Details Date Type Department Care Team Description 05/18/2023 Documentation Only [facility] [address] [place] [address] [phone] Kiana Borges RN [facility] [address] [place] [address] Blood Pressure Check Social History Tobacco Use [...]
--- OUTSIDE RECORDS SUMMARY | 2023-10-22 23:49 | XMS_ITS | Encounter Summary ---
Author Name Unknown Organization [facility] Address [address] [place] [address] Phone Care Team Providers Care Envelope Maker Name Role Phone Unavailable Primary Care Provider Unavailabl e Reason for Visit * Reason Comments Mother Baby - Family Session * Prior Authorization (Routine) - Closed Specialty Diagnoses / Procedures Referred By Bernardo t Referred To Contact Psych Rehab Diagnoses Bipolar II disorder () Trauma and stressor-related disorder Procedures MOTHER BABY ENROLLMENT Jazmine Potter, [facility] [address] [place] [address] [address] Referral ID Status Reason Start Date Expiration Date Visits Re quested Visits Authorized [id number] Closed 05/09/2023 06/24/2023 105 105 Encounter Details Date Type Department Care Team Description 06/01/2023 9:00 AM CDT Psych Rehab [facility] [address] [place] [address] [phone] Claire Workman, [facility] [address] [place] [address] [phone] Mother Baby - Family Session Discharge Disposition: [...] Progress Notes * Claire Workman, [facility] - 06/01/2023 9:00 AM CDT [facility] Progress Note Date of Service: 06/01/2023 Start Time: 9 am Stop Time: 9:30 am Location of Visit: Face to Face at [facility] Participants in this Visit other than [...] effect and pt has copy Claire Workman, [facility], 05/18/2023 3:15 PM documented in this encounter [...]
--- OUTSIDE RECORDS SUMMARY | 2023-10-22 23:49 | XMS_ITS | Encounter Summary ---
Author Name Unknown Organization [facility] Address [address] [place] [address] Phone Care Team Providers Care Casket Assembler Metal Name Role Phone Unavailable Primary Care Provider Unavailabl e Reason for Visit * Prior Authorization (Routine) - Closed Specialty Diagnoses / Procedures Referred By Contac t Referred To Contact Psych Rehab Diagnoses Bipolar II disorder () Trauma and stressor-related disorder Procedures MOTHER BABY ENROLLMENT Jazmine Potter, [facility] [address] [place] [address] [address] Referral ID Status Reason Start Date Expiration Date Visits Re quested Visits Authorized [id number] Closed 05/09/2023 06/24/2023 105 105 Encounter Details Date Type Department Care Team Description 06/06/2023 12:30 PM CDT [facility] [address] [place] [address] [phone] Karoline Benson MD 701 [facility] S1 [address]60 [place], [place] [phone] Dh, Mother Baby Discharge Disposition: Discharged to [...] OTR/L - 06/06/2023 12:30 PM CDT Dept: [facility] Type of Service: Group Therapy Name of Group: Wellness Group Provider/Group Mixologist: Alisha Hardy OTR/L Date of Service: 06/06/2023 Start Time: 12:45 PM Stop Time: 1:30 PM Number of Group Members Present: 4 Location of Service: Face to Face at [facility] QUENCHER OPERATOR SERVICES PROVIDED (if applicable): No Session [...]
--- OUTSIDE RECORDS SUMMARY | 2023-10-22 23:50 | XMS_ITS | Encounter Summary ---
Author Name Unknown Organization [facility] Address [address] [place] [address] Phone Care Team Providers Care Professor Of Graphic Design Name Role Phone Unavailable Primary Care Provider Unavailabl e Reason for Visit * Reason Comments Mother Baby - Individual Psychotherapy * Prior Authorization (Routine) - Closed Specialty Diagnoses / Procedures Referred By Bernardo t Referred To Contact Psych Rehab Diagnoses Bipolar II disorder () Trauma and stressor-related disorder Procedures MOTHER BABY ENROLLMENT Jazmine Potter, [facility] [address] [place] [address] [address] Referral ID Status Reason Start Date Expiration Date Visits Re quested Visits Authorized [id number] Closed 05/09/2023 06/24/2023 105 105 Encounter Details Date Type Department Care Team Description 05/18/2023 2:30 PM CDT Psych Rehab [facility] [address] [place] [address] [phone] Claire Workman, [facility] [address] [place] [address] [phone] Mother Baby - Individual Psychotherapy Discharge Disposition: [...] this encounter Progress Notes * Claire Workman, [facility] - 05/18/2023 2:30 PM CDT [facility] Progress Note Date of Service: 05/18/2023 Start Time: 2:30 pm Stop Time: 3 pm Location of Visit: Face [facility] Face at [facility] Participants in this Visit other than [...]
--- OUTSIDE RECORDS SUMMARY | 2023-10-22 23:50 | XMS_ITS | Encounter Summary ---
Author Name Unknown Organization [facility] Address [address] [place] [address] Phone Care Team Providers Care Director Of Scientific Research Name Role Phone Unavailable Primary Care Provider Unavailabl e Reason for Visit * Reason Comments Psych Medication Management Encounter Details Date Type Department Care Team Description 05/16/2023 2:30 PM CDT Psych Rehab [facility] 701 [place], [place] [phone] Giovana Benson MD 701 [facility] S[address]60 [place], [place] [phone] Psych Medication Management Discharge Disposition: Discharged to [...] original note were not included. Mother Baby [facility], Psychiatry Visit Started the Day [facility] on: 05/09/23 Merry Rooney is a 22 y.o. mother of baby (Latha b. 05/03/23) and 2 year old son (Chuy). Referred by [facility] Cultural Context: white, Cook Islander and Serbian Pronouns: she/her/hers; Supports: Jesús -- supportive Therapist: ; PCP: ; OB-PRODUCT DEVELOPMENT ACTUARY: Antonio Ob; Employment Law Attorney: Feeding Method: breast and bottle feeding with [...] symptoms and possible preeclampsia leading to transferto [facility] ICU. Seen by psychiatry (Dr Ortiz) at [facility], discontinued from her sertraline and started on [...] individual and group therapy process in the [facility]. 6) Review old records. 7) [...] when she was 4. Mother lived in [place]. 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 Legal: no had involvement with the legal system. The patient reports the following spiritual and/or cultural history: Cook Islander and Serbian background Relationship to her partner/father/co-parent of the [...]
--- OUTSIDE RECORDS SUMMARY | 2023-10-22 23:50 | XMS_ITS | Encounter Summary ---
Author Name Unknown Organization [facility] Address [address] [place] [address] Phone Care Team Providers Care Community Center Director Name Role Phone Unavailable Primary Care Provider Unavailabl e Reason for Visit * Prior Authorization (Routine) - Closed Specialty Diagnoses / Procedures Referred By Contac t Referred To Contact Psych Rehab Diagnoses Bipolar II disorder () Trauma and stressor-related disorder Procedures MOTHER BABY ENROLLMENT Jazmine Potter, [facility] [address] [place] [address] [address] Referral ID Status Reason Start Date Expiration Date Visits Re quested Visits Authorized [id number] Closed 05/09/2023 06/24/2023 105 105 Encounter Details Date Type Department Care Team Description 05/10/2023 12:30 PM CDT [facility] [address] [place] [address] [phone] Karoline Benson MD [address] [facility] S1 [address]60 [place], [place] [phone] Dh, Mother Baby Discharge Disposition: Discharged to [...] OTR/L - 05/10/2023 12:30 PM CDT Dept: [facility] Type of Service: Group Therapy Name of Group: Wellness Group Provider/Group Viticulture Teacher: Alisha Hardy OTR/L Date of Service: 05/10/2023 Start Time: 12:45 PM Stop Time: 1:30 PM Number of Group Members Present: 5 Location of Service: Face to Face at [facility] RATING OFFICER SERVICES PROVIDED (if applicable): No Session Content [...]
--- OUTSIDE RECORDS SUMMARY | 2023-10-22 23:50 | XMS_ITS | Encounter Summary ---
Author Name Unknown Organization [facility] Address [address] [place] [address] Phone Care Team Providers Care Medical Coding Specialist Name Role Phone Unavailable Primary Care Provider Unavailabl e Reason for Visit * Prior Authorization (Routine) - Closed Specialty Diagnoses / Procedures Referred By Contac t Referred To Contact Psych Rehab Diagnoses Bipolar II disorder () Trauma and stressor-related disorder Procedures MOTHER BABY ENROLLMENT Jazmine Potter, [facility] [address] [place] [address] [address] Referral ID Status Reason Start Date Expiration Date Visits Re quested Visits Authorized [id number] Closed 05/09/2023 06/24/2023 105 105 Encounter Details Date Type Department Care Team Description 05/10/2023 1:45 PM CDT [facility] [address] [place] [address] [phone] Karoline Benson MD 701 [facility] S1 860 [place], [place] [phone] Dh, Mother Baby Discharge Disposition: Discharged to [...] LICSW - 05/10/2023 1:45 PM CDT Dept: [facility] Type of Service: Group Therapy Name of Group: Psychoeducation/Skills Group Provider/Group Digital Account Supervisor: Noy Chen LICSW Date of Service: 05/10/2023 Start Time: 1:45 PM Stop Time: 2:30 PM Number of Group Members Present: 5 Location of Service: Face to Face at [facility] RESEARCH SUBJECT SERVICES PROVIDED (if applicable): No Session Content (Intervention): The purpose of this group was to provide education through information-sharing and facilitated group discussion. Skills taught today included: Parenting Education (describe [place] of Security Parenting) The patient???s response to [...]
--- OUTSIDE RECORDS SUMMARY | 2023-10-22 23:50 | XMS_ITS | Encounter Summary ---
Author Name Unknown Organization [facility] Address [address] [place] [address] Phone Care Team Providers Care Drama Professor Name Role Phone Unavailable Primary Care Provider Unavailabl e Reason for Visit * Prior Authorization (Routine) - Closed Specialty Diagnoses / Procedures Referred By Contac t Referred To Contact Psych Rehab Diagnoses Bipolar II disorder () Trauma and stressor-related disorder Procedures MOTHER BABY ENROLLMENT Jazmine Potter, [facility] [address] [place] [address] [address] Referral ID Status Reason Start Date Expiration Date Visits Re quested Visits Authorized [id number] Closed 05/09/2023 06/24/2023 105 105 Encounter Details Date Type Department Care Team Description 05/12/2023 9:30 AM CDT [facility] [address] [place] [address] [phone] Karoline Benson MD 701 [facility] S1 860 [place], [place] [phone] Dh, Mother Baby Discharge Disposition: Discharged to [...] LPCC - 05/12/2023 9:30 AM CDT Dept: [facility] Type of Service: Group Therapy Name of Group: Psychoeducation/Skills Group Provider/Group Software Development Manager: Claire Workman LPCC Date of Service: 05/12/2023 Start Time: 9:30 AM Stop Time: 10:15 AM Number of Group Members Present: 5 Location of Service: Face to Face at [facility] Session Content (Intervention): Welcomed any new [...]
--- OUTSIDE RECORDS SUMMARY | 2023-10-22 23:50 | XMS_ITS | Encounter Summary ---
Author Name Unknown Organization [facility] Address [address] [place] [address] Phone Care Team Providers Care Chrome Worker Name Role Phone Unavailable Primary Care Provider Unavailabl e Reason for Visit * Prior Authorization (Routine) - Closed Specialty Diagnoses / Procedures Referred By Contac t Referred To Contact Psych Rehab Diagnoses Bipolar II disorder () Trauma and stressor-related disorder Procedures MOTHER BABY ENROLLMENT Jazmine Potter, [facility] 701 [place] [address] [address] Referral ID Status Reason Start Date Expiration Date Visits Re quested Visits Authorized [id number] Closed 05/09/2023 06/24/2023 105 105 Encounter Details Date Type Department Care Team Description 05/10/2023 10:15 AM CDT [facility] [address] [place] [address] [phone] Karoline Benson MD 701 [facility] S1 860 [place], [place] [phone] Dh, Mother Baby Discharge Disposition: Discharged to [...] LICSW - 05/10/2023 10:15 AM CDT Dept: [facility] Type of Service: Group Therapy Name of Group: Psychotherapy Process Group Provider/Group Rn Plastic Surgery: Jazmine Potter LICSW Date of Service: 05/10/2023 Start Time: 10:15 AM Stop Time: 11:00 AM Number of Group Members Present: 4 Location of Service: [facility] HELIX COIL WINDER SERVICES PROVIDED (if applicable): No Session Content [...]
--- OUTSIDE RECORDS SUMMARY | 2023-10-22 23:50 | XMS_ITS | Encounter Summary ---
Author Name Unknown Organization [facility] Address [address] [place] [address] Phone Care Team Providers Care Poultry Farmer Name Role Phone Unavailable Primary Care Provider Unavailabl e Reason for Visit * Prior Authorization (Routine) - Closed Specialty Diagnoses / Procedures Referred By Contac t Referred To Contact Psych Rehab Diagnoses Bipolar II disorder () Trauma and stressor-related disorder Procedures MOTHER BABY ENROLLMENT Jazmine Potter, [facility] 701 [place] [address] [address] Referral ID Status Reason Start Date Expiration Date Visits Re quested Visits Authorized [id number] Closed 05/09/2023 06/24/2023 105 105 Encounter Details Date Type Department Care Team Description 05/10/2023 11:00 AM CDT [facility] [address] [place] [address] [phone] Karoline Benson MD 701 [facility] S[address]60 [place], [place] [phone] Dh, Mother Baby Discharge Disposition: Discharged to [...] PT - 05/10/2023 11:00 AM CDT Dept: [facility] Type of Service: Group Therapy Provider/Group Heavy Rail Train Operator: Sara Cunha PT Date of Service: 05/10/2023 Start Time: 11:00 AM Stop Time: 12:00 PM Number of Group Members Present: 5 Name of Group: Movement Location of Service: Face to Face at a [facility] ORGAN TUNER SERVICES PROVIDED (if applicable): No Session Content (Intervention) (including goal/intended outcome): Mindful Movement. Encouraged group members to participate in mind-body skills facilitated by [facility] Trauma-Informed Yoga providers. Trauma-sensitive mind-body skills and [...]
--- OUTSIDE RECORDS SUMMARY | 2023-10-22 23:50 | XMS_ITS | Encounter Summary ---
Author Name Unknown Organization [facility] Address [address] [place] [address] Phone Care Team Providers Care Finished Goods Inspector Name Role Phone Unavailable Primary Care Provider Unavailabl e Reason for Visit * Prior Authorization (Routine) - Closed Specialty Diagnoses / Procedures Referred By Contac t Referred To Contact Psych Rehab Diagnoses Bipolar II disorder () Trauma and stressor-related disorder Procedures MOTHER BABY ENROLLMENT Jazmine Potter, [facility] [address] [place] [address] [address] Referral ID Status Reason Start Date Expiration Date Visits Re quested Visits Authorized [id number] Closed 05/09/2023 06/24/2023 105 105 Encounter Details Date Type Department Care Team Description 05/11/2023 12:30 PM CDT [facility] [address] [place] [address] [phone] Karoline Benson MD 701 [facility] S1 [address]60 [place], [place] [phone] Dh, Mother Baby Discharge Disposition: Discharged to [...] OTR/L - 05/11/2023 12:30 PM CDT Dept: [facility] Type of Service: Group Therapy Name of Group: Wellness Group Provider/Group Maintenance Of Way Foreman: Alisha Hardy OTR/L Date of Service: 05/11/2023 Start Time: 12:45 PM Stop Time: 1:30 PM Number of Group Members Present: 6 Location of Service: Face to Face at [facility] HAND LOOM WEAVER SERVICES PROVIDED (if applicable): No Session Content [...]
--- OUTSIDE RECORDS SUMMARY | 2023-10-22 23:50 | XMS_ITS | Encounter Summary ---
Author Name Unknown Organization [facility] Address [address] [place] [address] Phone Care Team Providers Care Supervisor Carbon Electrodes Name Role Phone Unavailable Primary Care Provider Unavailabl e Reason for Visit * Prior Authorization (Routine) - Closed Specialty Diagnoses / Procedures Referred By Contac t Referred To Contact Psych Rehab Diagnoses Bipolar II disorder () Trauma and stressor-related disorder Procedures MOTHER BABY ENROLLMENT Jazmine Potter, [facility] 701 [place] [address] [address] Referral ID Status Reason Start Date Expiration Date Visits Re quested Visits Authorized [id number] Closed 05/09/2023 06/24/2023 105 105 Encounter Details Date Type Department Care Team Description 05/18/2023 10:15 AM CDT [facility] [address] [place] [address] [phone] Karoline Benson MD 701 [facility] S1 [address]60 [place], [place] [phone] Dh, Mother Baby Discharge Disposition: Discharged to [...] LPCC - 05/18/2023 10:15 AM CDT Dept: [facility] Type of Service: Group Therapy Name of Group: Psychotherapy Process Group Provider/Group Electric Stove Mechanic: Claire Workmna LPCC Date of Service: 05/18/2023 Start Time: 10:15 AM Stop Time: 11:00 AM Number of Group Members Present: 5 Location of Service: Face to Face at [facility] Session Content of Today's Group: [...]
--- OUTSIDE RECORDS SUMMARY | 2023-10-22 23:50 | XMS_ITS | Encounter Summary ---
Author Name Unknown Organization [facility] Address [address] [place] [address] Phone Care Team Providers Care Paralegal Instructor Name Role Phone Unavailable Primary Care Provider Unavailabl e Reason for Visit * Prior Authorization (Routine) - Closed Specialty Diagnoses / Procedures Referred By Contac t Referred To Contact Psych Rehab Diagnoses Bipolar II disorder () Trauma and stressor-related disorder Procedures MOTHER BABY ENROLLMENT Jazmine Potter, [facility] [address] [place] [address] [address] Referral ID Status Reason Start Date Expiration Date Visits Re quested Visits Authorized [id number] Closed 05/09/2023 06/24/2023 105 105 Encounter Details Date Type Department Care Team Description 05/12/2023 1:30 PM CDT [facility] [address] [place] [address] [phone] Karoline Benson MD 701 [facility] S1 [address]60 [place], [place] [phone] Dh, Mother Baby Discharge Disposition: Discharged to [...] 05/12/2023 1:30 PM CDT Dept: [facility] Type of Service: Group Therapy Name of Group: Psychoeducation/Skills Group Provider/Group Ethics Manager: Noy Chen LICSW Date of Service: 05/12/2023 Start Time: 1:45 PM Stop Time: 2:30 PM Number of Group Members Present: 5 Location of Service: Face to Face at [facility] GRAINING MACHINE OPERATOR SERVICES PROVIDED (if applicable): No [...]
--- OUTSIDE RECORDS SUMMARY | 2023-10-22 23:50 | XMS_ITS | Encounter Summary ---
Author Name Unknown Organization [facility] Address [address] [place] [address] Phone Care Team Providers Care German Professor Name Role Phone Unavailable Primary Care Provider Unavailabl e Reason for Visit * Prior Authorization (Routine) - Closed Specialty Diagnoses / Procedures Referred By Contac t Referred To Contact Psych Rehab Diagnoses Bipolar II disorder () Trauma and stressor-related disorder Procedures MOTHER BABY ENROLLMENT Jazmine Potter, [facility] [address] [place] [address] [address] Referral ID Status Reason Start Date Expiration Date Visits Re quested Visits Authorized [id number] Closed 05/09/2023 06/24/[phone] Encounter Details Date Type Department Care Team Description 05/12/2023 12:30 PM CDT [facility] [address] [place] [address] [phone] Karoline Benson MD 701 [facility] S1 [address]60 [place], [place] [phone] Dh, Mother Baby Discharge Disposition: Discharged to [...] LICSW - 05/12/2023 12:30 PM CDT Dept: [facility] Type of Service: Group Therapy Name of Group: Psychoeducation/Skills Group Provider/Group Inside Sales Person: Noy Chen LICSW Date of Service: 05/12/2023 Start Time: 12:45 PM Stop Time: 1:30 PM Number of Group Members Present: 5 Location of Service: Face to Face at [facility] AGRICULTURAL CHEMICALS INSPECTOR SERVICES PROVIDED (if applicable): No Session Content (Intervention): The purpose of this group was to provide education through information-sharing and facilitated group discussion. Handouts were provided and covered in detail. Skills taught today included: Parenting Education (describe [place] of Security) The patient???s response to the [...]
--- OUTSIDE RECORDS SUMMARY | 2023-10-22 23:50 | XMS_ITS | Encounter Summary ---
Author Name Unknown Organization [facility] Address [address] [place] [address] Phone Care Team Providers Care Supervisor Roller Shop Name Role Phone Unavailable Primary Care Provider Unavailabl e Reason for Visit * Prior Authorization (Routine) - Closed Specialty Diagnoses / Procedures Referred By Contac t Referred To Contact Psych Rehab Diagnoses Bipolar II disorder () Trauma and stressor-related disorder Procedures MOTHER BABY ENROLLMENT Jazmine Potter, [facility] [address] [place] [address] [address] Referral ID Status Reason Start Date Expiration Date Visits Re quested Visits Authorized [id number] Closed 05/09/2023 06/24/2023 105 105 Encounter Details Date Type Department Care Team Description 05/16/2023 1:45 PM CDT [facility] [address] [place] [address] [phone] Karoline Benson MD 701 [facility] S1 860 [place], [place] [phone] Dh, Mother Baby Discharge Disposition: Discharged to [...] LICSW - 05/16/2023 1:45 PM CDT Dept: [facility] Type of Service: Group Therapy Name of Group: Psychoeducation/Skills Group Provider/Group Driver Supervisor: Jazmine Potter LICSW Date of Service: 05/16/2023 Start Time: 1:45 PM Stop Time: 2:30 PM Number of Group Members Present: 7 Location of Service: Face to Face at [facility] COOKY PACKER SERVICES PROVIDED (if applicable): No Session Content [...]
--- OUTSIDE RECORDS SUMMARY | 2023-10-22 23:50 | XMS_ITS | Encounter Summary ---
Author Name Unknown Organization [facility] Address [address] [place] [address] Phone Care Team Providers Care Civil Engineering Project Manager Name Role Phone Unavailable Primary Care Provider Unavailabl e Reason for Visit * Prior Authorization (Routine) - Closed Specialty Diagnoses / Procedures Referred By Contac t Referred To Contact Psych Rehab Diagnoses Bipolar II disorder () Trauma and stressor-related disorder Procedures MOTHER BABY ENROLLMENT Jazmine Potter, [facility] 701 [place] [address] [address] Referral ID Status Reason Start Date Expiration Date Visits Re quested Visits Authorized [id number] Closed 05/09/2023 06/24/2023 105 105 Encounter Details Date Type Department Care Team Description 05/16/2023 10:15 AM CDT [facility] [address] [place] [address] [phone] Karoline Benson MD 701 [facility] S1 860 [place], [place] [phone] Dh, Mother Baby Discharge Disposition: Discharged to [...] Note - Jazmine Potter LICSW - 05/16/2023 10:15 AM CDT Dept: [facility] Type of Service: Group Therapy Name of Group: Psychotherapy Process Group Provider/Group Cat Wagon Operator: Jazmine Potter LICSW Date of Service: 05/16/2023 Start Time: 10:15 AM Stop Time: 11:00 AM Number of Group Members Present: 6 Location of Service: Face to Face at [facility] WIRE HARNESS DESIGN ENGINEER SERVICES PROVIDED (if applicable): No Session [...]
--- OUTSIDE RECORDS SUMMARY | 2023-10-22 23:50 | XMS_ITS | Encounter Summary ---
Author Name Unknown Organization [facility] Address [address] [place] [address] Phone Care Team Providers Care Clinical Dietetic Technician Name Role Phone Unavailable Primary Care Provider Unavailabl e Reason for Visit * Prior Authorization (Routine) - Closed Specialty Diagnoses / Procedures Referred By Contac t Referred To Contact Psych Rehab Diagnoses Bipolar II disorder () Trauma and stressor-related disorder Procedures MOTHER BABY ENROLLMENT Jazmine Potter, [facility] [address] [place] [address] [address] Referral ID Status Reason Start Date Expiration Date Visits Re quested Visits Authorized [id number] Closed 05/09/2023 06/24/2023 105 105 Encounter Details Date Type Department Care Team Description 05/16/2023 12:30 PM CDT [facility] [address] [place] [address] [phone] Karoline Benson MD [address] [facility] S1 [address]60 [place], [place] [phone] Dh, Mother Baby Discharge Disposition: Discharged to [...] OTR/L - 05/16/2023 12:30 PM CDT Dept: [facility] Type of Service: Group Therapy Name of Group: Wellness Group Provider/Group Machine Tank Operator: Alisha Hardy OTR/L Date of Service: 05/16/2023 Start Time: 12:45 PM Stop Time: 1:30 PM Number of Group Members Present: 6 Location of Service: Face to Face at [facility] SHOT CORE DRILL OPERATOR HELPER SERVICES PROVIDED (if applicable): No Session [...]
--- OUTSIDE RECORDS SUMMARY | 2023-10-22 23:50 | XMS_ITS | Encounter Summary ---
Author Name Unknown Organization [facility] Address 701 [facility] [place] [address] Phone Care Team Providers Care Bottom Man Name Role Phone Unavailable Primary Care Provider Unavailabl e Reason for Visit * Reason Comments Mother Baby - Individual Psychotherapy Encounter Details Date Type Department Care Team Description 05/11/2023 2:30 PM CDT Psych Rehab [facility] 701 [place], [place] [phone] Claire Workman, [facility] 701 [place], [place] 965[address] Mother Baby - Individual Psychotherapy Discharge Disposition: [...] this encounter Progress Notes * [facility]man [facility] - 05/11/2023 2:30 PM CDT [facility] Progress Note for Treatment Planning Sessions Start Time: 2:30 pm Stop Time: 2:55 pm Date of Service: 05/11/2023 Type of Therapy: Individual, Modality: Emotion Focused Therapy Type of Treatment Plan: Initial Location of Visit: Face to Face at [facility] Participants in this Visit other than the [...]
--- OUTSIDE RECORDS SUMMARY | 2023-10-22 23:50 | XMS_ITS | Encounter Summary ---
Author Name Unknown Organization [facility] Address 701 [facility] [address] Phone Care Team Providers Care Artificial Fly Tier Name Role Phone Unavailable Primary Care Provider Unavailabl e Encounter Details Date Type Department Care Team Description 05/13/2023 9:00 AM CDT Telemedicine Psych Rehab [facility] 701 [place], [place] [phone] Karoline Benson MD 701 [facility] S[address]60 [place] [address] Left without seen Discharge Disposition: Discharged to [...]
--- OUTSIDE RECORDS SUMMARY | 2023-10-22 23:50 | XMS_ITS | Encounter Summary ---
Author Name Unknown Organization [facility] Address [address] [place] [address] Phone Care Team Providers Care Dyer Assistant Name Role Phone Unavailable Primary Care Provider Unavailabl e Reason for Visit * Prior Authorization (Routine) - Closed Specialty Diagnoses / Procedures Referred By Contac t Referred To Contact Psych Rehab Diagnoses Bipolar II disorder () Trauma and stressor-related disorder Procedures MOTHER BABY ENROLLMENT Jazmine Potter, [facility] 701 [place] [address] [address] Referral ID Status Reason Start Date Expiration Date Visits Re quested Visits Authorized [id number] Closed 05/09/2023 06/24/2023 105 105 Encounter Details Date Type Department Care Team Description 05/12/2023 11:00 AM CDT [facility] [address] [place] [address] [phone] Karoline Benson MD 701 [facility] S1 [address]60 [place], [place] [phone] Dh, Mother Baby Discharge Disposition: Discharged to [...] PT - 05/12/2023 11:00 AM CDT Dept: [facility] Type of Service: Group Therapy Provider/Group Wort Extractor: Sara Cunha PT Date of Service: 05/12/2023 Start Time: 11:00 AM Stop Time: 12:00 PM Number of Group Members Present: 5 Name of Group: Movement Location of Service: Face to Face at a [facility] LIBRARY SERVICES COORDINATOR SERVICES PROVIDED (if applicable): No Session Content (Intervention) (including goal/intended outcome): Mindful Movement. Encouraged group members to participate in mind-body skills facilitated by [facility] Trauma-Informed Yoga providers. Trauma-sensitive mind-body skills and [...]
--- OUTSIDE RECORDS SUMMARY | 2023-10-22 23:50 | XMS_ITS | Encounter Summary ---
Author Name Unknown Organization [facility] Address [address] [place] [address] Phone Care Team Providers Care In Store Demonstrator Name Role Phone Unavailable Primary Care Provider Unavailabl e Reason for Visit * Prior Authorization (Routine) - Closed Specialty Diagnoses / Procedures Referred By Contac t Referred To Contact Psych Rehab Diagnoses Bipolar II disorder () Trauma and stressor-related disorder Procedures MOTHER BABY ENROLLMENT Jazmine Potter, [facility] 701 [place] [address] [address] Referral ID Status Reason Start Date Expiration Date Visits Re quested Visits Authorized [id number] Closed 05/09/2023 06/24/2023 105 105 Encounter Details Date Type Department Care Team Description 05/17/2023 11:00 AM CDT [facility] [address] [place] [address] [phone] Karoline Benson MD [address] [facility] S1 860 [place], [place] [phone] Dh, Mother Baby Discharge Disposition: Discharged to [...] PT - 05/17/2023 11:00 AM CDT Dept: [facility] Type of Service: Group Therapy Provider/Group Investment Professional: Sara Cunha PT Date of Service: 05/17/2023 Start Time: 11:00 AM Stop Time: 12:00 PM Number of Group Members Present: 4 Name of Group: Movement Location of Service: Face to Face at a [facility] TERMITE RENEWAL INSPECTOR SERVICES PROVIDED (if applicable): No Session Content (Intervention) (including goal/intended outcome): Mindful Movement. Encouraged group members to participate in mind-body skills facilitated by [facility] Trauma-Informed Yoga providers. Trauma-sensitive mind-body skills and [...]
--- OUTSIDE RECORDS SUMMARY | 2023-10-22 23:50 | XMS_ITS | Encounter Summary ---
Author Name Unknown Organization [facility] Address 701 [place] [address] Phone Care Team Providers Care Marketing Director Assisted Living Name Role Phone Unavailable Primary Care Provider Unavailabl e Reason for Visit * Reason Comments Psych Rehab Health Screen Encounter Details Date Type Department Care Team Description 05/10/2023 Documentation Only [facility] 701 [place], [place] 116765 Kiana Borges RN [facility] 701 [place] [address] Psych Rehab Health Screen Social History Tobacco [...] the patient was reviewedand updated during a solr-vy-crch meeting. The problem list will be updated as needed and the procedure for screening, assessment, and triage will be followed. See plan, below. Primary Care Provider: Getting established at [facility] Date of last PCP visit: 10/2021 Primary [...] questions. Difficult to pay for child care center administrator? X 2. Difficult to pay your bills? [...] home. Pt verbalized an understanding and thanked repairer typewriter. Healthcare Directive on File: No Healthcare Directive [...]
--- OUTSIDE RECORDS SUMMARY | 2023-10-22 23:50 | XMS_ITS | Encounter Summary ---
Author Name Unknown Organization [facility] Address [address] [place] [address] Phone Care Team Providers Care Supervisor Files Name Role Phone Unavailable Primary Care Provider Unavailabl e Reason for Visit * Prior Authorization (Routine) - Closed Specialty Diagnoses / Procedures Referred By Contac t Referred To Contact Psych Rehab Diagnoses Bipolar II disorder () Trauma and stressor-related disorder Procedures MOTHER BABY ENROLLMENT Jazmine Potter, [facility] 701 [place] [address] [address] Referral ID Status Reason Start Date Expiration Date Visits Re quested Visits Authorized [id number] Closed 05/09/2023 06/24/2023 105 105 Encounter Details Date Type Department Care Team Description 05/17/2023 10:15 AM CDT [facility] [address] [place] [address] [phone] Karoline Benson MD 701 [facility] S1 860 [place], [place] [phone] Dh, Mother Baby Discharge Disposition: Discharged to [...] LICSW - 05/17/2023 10:15 AM CDT Dept: [facility] Type of Service: Group Therapy Name of Group: Psychotherapy Process Group Provider/Group Mule Packer: Jazmine Potter LICSW Date of Service: 05/17/2023 Start Time: 10:15 AM Stop Time: 11:00 AM Number of Group Members Present: 7 Location of Service: Face to Face at [facility] MIXER WHIPPED TOPPING SERVICES PROVIDED (if applicable): No Session Content [...]
--- OUTSIDE RECORDS SUMMARY | 2023-10-22 23:50 | XMS_ITS | Encounter Summary ---
Author Name Unknown Organization [facility] Address [address] [place] [address] Phone Care Team Providers Care Antitank Assault Gunner Name Role Phone Unavailable Primary Care Provider Unavailabl e Reason for Visit * Prior Authorization (Routine) - Closed Specialty Diagnoses / Procedures Referred By Contac t Referred To Contact Psych Rehab Diagnoses Bipolar II disorder () Trauma and stressor-related disorder Procedures MOTHER BABY ENROLLMENT Jazmine Potter, [facility] [address] [place] [address] [address] Referral ID Status Reason Start Date Expiration Date Visits Re quested Visits Authorized [id number] Closed 05/09/2023 06/24/2023 105 105 Encounter Details Date Type Department Care Team Description 05/18/2023 9:30 AM CDT [facility] [address] [place] [address] [phone] Karoline Benson MD 701 [facility] S1 [address]60 [place], [place] 176[address] Dh, Mother Baby Discharge Disposition: Discharged to [...] LPCC - 05/18/2023 9:30 AM CDT Dept: [facility] Type of Service: Group Therapy Name of Group: Psychoeducation/Skills Group Provider/Group Business Solutions Architect: Claire Workman LPCC Date of Service: 05/18/2023 Start Time: 9:30 AM Stop Time: 10:15 AM Number of Group Members Present: 4 Location of Service: Face to Face at [facility] Session Content (Intervention): Welcomed any new [...]
--- OUTSIDE RECORDS SUMMARY | 2023-10-22 23:50 | XMS_ITS | Encounter Summary ---
Author Name Unknown Organization [facility] Address [address] [place] [address] Phone Care Team Providers Care Materials Supervisor Name Role Phone Unavailable Primary Care Provider Unavailabl e Reason for Visit * Prior Authorization (Routine) - Closed Specialty Diagnoses / Procedures Referred By Contac t Referred To Contact Psych Rehab Diagnoses Bipolar II disorder () Trauma and stressor-related disorder Procedures MOTHER BABY ENROLLMENT Jazmine Potter, [facility] 701 [place] [address] [address] Referral ID Status Reason Start Date Expiration Date Visits Re quested Visits Authorized [id number] Closed 05/09/2023 06/24/2023 105 105 Encounter Details Date Type Department Care Team Description 05/12/2023 10:15 AM CDT [facility] [address] [place] [address] [phone] Karoline Benson MD 701 [facility] S1 860 [place], [place] [phone] Dh, Mother Baby Discharge Disposition: Discharged to [...] LPCC - 05/12/2023 10:15 AM CDT Dept: [facility] Type of Service: Group Therapy Name of Group: Psychotherapy Process Group Provider/Group Branch Operations Manager: Claire Workman LPCC Date of Service: 05/12/2023 Start Time: 10:15 AM Stop Time: 11:00 AM Number of Group Members Present: 5 Location of Service: Face to Face at [facility] Session Content of Today's Group: At the [...] to change the treatment if deemed ineffective): Kristian processed difficulties in her relationship with her [...]
--- OUTSIDE RECORDS SUMMARY | 2023-10-22 23:50 | XMS_ITS | Encounter Summary ---
Author Name Unknown Organization [facility] Address [address] [place] [address] Phone Care Team Providers Care Consumer Credit Counselor Name Role Phone Unavailable Primary Care Provider Unavailabl e Reason for Visit * Prior Authorization (Routine) - Closed Specialty Diagnoses / Procedures Referred By Contac t Referred To Contact Psych Rehab Diagnoses Bipolar II disorder () Trauma and stressor-related disorder Procedures MOTHER BABY ENROLLMENT Jazmine Potter, [facility] [address] [place] [address] [address] Referral ID Status Reason Start Date Expiration Date Visits Re quested Visits Authorized [id number] Closed 05/09/2023 06/24/2023 105 105 Encounter Details Date Type Department Care Team Description 05/18/2023 12:30 PM CDT [facility] [address] [place] [address] [phone] Karoline Benson MD 701 [facility] S1 [address]60 [place], [place] [address] Dh, Mother Baby Discharge Disposition: Discharged to [...] OTR/L - 05/18/2023 12:30 PM CDT Dept: [facility] Type of Service: Group Therapy Name of Group: Wellness Group Provider/Group Chair Spring Assembler: Alisha Hardy OTR/L Date of Service: 05/18/2023 Start Time: 12:45 PM Stop Time: 1:30 PM Number of Group Members Present: 6 Location of Service: Face to Face at [facility] UNDER SHERIFF SERVICES PROVIDED (if applicable): No Session Content [...]
--- OUTSIDE RECORDS SUMMARY | 2023-10-22 23:50 | XMS_ITS | Encounter Summary ---
Author Name Unknown Organization [facility] Address [address] [place] [address] Phone Care Team Providers Care Commercial Green Building Designer Name Role Phone Unavailable Primary Care Provider Unavailabl e Reason for Visit * Prior Authorization (Routine) - Closed Specialty Diagnoses / Procedures Referred By Contac t Referred To Contact Psych Rehab Diagnoses Bipolar II disorder () Trauma and stressor-related disorder Procedures MOTHER BABY ENROLLMENT Jazmine Potter, [facility] [address] [place] [address] [address] Referral ID Status Reason Start Date Expiration Date Visits Re quested Visits Authorized [id number] Closed 05/09/2023 06/24/2023 105 105 Encounter Details Date Type Department Care Team Description 05/18/2023 1:45 PM CDT [facility] [address] [place] [address] [phone] Karoline Benson MD 701 [facility] S1 [address]60 [place], [place] [phone] Dh, Mother Baby Discharge Disposition: Discharged to [...] LICSW - 05/18/2023 1:45 PM CDT Dept: [facility] Type of Service: Group Therapy Name of Group: Psychoeducation/Skills Group Provider/Group Instructor Kindergarten: Jazmine Potter LICSW Date of Service: 05/18/2023 Start Time: 1:45 PM Stop Time: 2:30 PM Number of Group Members Present: 5 Location of Service: Face to Face at [facility] DISTRIBUTION MANAGER SERVICES PROVIDED (if applicable): No Session Content [...]
--- OUTSIDE RECORDS SUMMARY | 2023-10-22 23:51 | XMS_ITS | Referral Summary ---
Author Name Unknown Organization [facility] Address [address] [place] [address] Care Team Providers Care Fermenting Cellar Dropper Name Role Phone Abbey Bagley PA-C Primary Care Provider + [phone] Ino Robbins MD Unavailable + [phone] Allergies No known active allergies Medications Medication [...] Answer Date Recorded PHQ-2 Score 0 04/14/2023 [place] Depression Scale Answer Date Recorded Last EPDS [...] Advance Directives For more information, please contact: [phone] Latest Code Status on File Code Status [...] with patient/ legal decision maker Care Teams Fermenting Cellar Dropper Relationship Specialty Start Date End Date Abbey Bagley PA-C [employer] [address] [place] [address] PCP - General Physician Bonded Structures Repairer 08/15/20 Ino Robbins MD [address] [place] [address] Assigned OBGYN Provider 01/01/23
--- OUTSIDE RECORDS SUMMARY | 2023-10-22 23:51 | XMS_ITS | Encounter Summary ---
Author Name Unknown Organization [facility] Address [facility] [place] [address] Care Team Providers Care Maintenance Services Dispatcher Name Role Phone Abbey Bagley PA-C Unavailable [phone] Abbey Bagley PA-C Primary Care Provider + [phone] Ino Robbins MD Unavailable + [phone] Encounter Details Date Type Department Care Team (Latest Contact Info) Description 04/27/2023 Travel Social History Tobacco Use Types Packs/Day Years Used Date Smoking Tobacco: Former Cigarettes 0.3 Q uit: 03/10/2023 Passive Smoke Exposure: Never Smokeless Tobacco: Never Alcohol Use Standard Drinks/Week Comments Not Currently 0 (1 standard drink = 0.6 oz pur e alcohol) Seldom PHQ-2 Answer Date Recorded PHQ-2 Score 0 04/14/2023 [place] Depression Scale Answer Date Recorded [place] Depression Score 13 03/10/2021 Last EPDS Self [...] as of this encounter Care Teams Maintenance Services Dispatcher Relationship Specialty Start Date End Date Abbey Bagley PA-C [employer] [address] [place] [address] PCP - General Physician Centerless Grinder Set Up Operator 08/15/20 Abbey Bagley PA-C [employer] [address] [place] [address] Physician Centerless Grinder Set Up Operator 04/11/20 05/02/23 Ino Robbins MD [address] [place] [address] Assigned OBGYN Provider 01/01/23 documented as of this encounter
--- OUTSIDE RECORDS SUMMARY | 2023-10-22 23:51 | XMS_ITS | Encounter Summary ---
Author Name Unknown Organization [facility] Address [address] [place] [address] Phone Care Team Providers Care Racing Mechanic Name Role Phone Unavailable Primary Care Provider Unavailabl e Reason for Visit * Prior Authorization (Routine) - Closed Specialty Diagnoses / Procedures Referred By Contac t Referred To Contact Psych Rehab Diagnoses Bipolar II disorder () Trauma and stressor-related disorder Procedures MOTHER BABY ENROLLMENT Jazmine Potter, [facility] [address] [place] [address] [address] Referral ID Status Reason Start Date Expiration Date Visits Re quested Visits Authorized [id number] Closed 05/09/2023 06/24/2023 105 105 Encounter Details Date Type Department Care Team Description 05/09/2023 10:15 AM CDT Psych [facility] [address] [place] [phone] Karoline Benson MD 701 [facility] [address] [place], [place] [address] Dh, Mother Baby Discharge Disposition: Discharged to [...] LICSW - 05/09/2023 10:15 AM CDT Dept: [facility] Type of Service: Group Therapy Name of Group: Psychotherapy Process Group Provider/Group Cdl Driver: Jazmine Potter LICSW Date of Service: 05/09/2023 Start Time: 10:15 AM Stop Time: 11:00 AM Number of Group Members Present: 2 Location of Service: Face to Face at [facility] STAIN APPLICATOR SERVICES PROVIDED (if applicable): No Session Content [...]
--- OUTSIDE RECORDS SUMMARY | 2023-10-22 23:51 | XMS_ITS | Encounter Summary ---
Author Name Unknown Organization [facility] Address 1 [place] [address] Phone Care Team Providers Care Precision Jig Grinder Name Role Phone Unavailable Primary Care Provider Unavailabl e Reason for Referral * Prior Authorization (Routine) - Closed Specialty Diagnoses / Procedures Referred By Contac t Referred To Contact Psych Rehab Diagnoses Bipolar II disorder () Trauma and stressor-related disorder Procedures MOTHER BABY ENROLLMENT Jazmine Potter [facility] [address] [place] [address] [address] Referral ID Status Reason Start Date Expiration Date Visits Re quested Visits Authorized [id number] Closed 05/09/2023 06/24/2023 105 105 Reason for Visit * Prior Authorization (Routine) - Closed Specialty Diagnoses / Procedures Referred By Contac t Referred To Contact Psych Rehab Diagnoses Bipolar II disorder () Trauma and stressor-related disorder Procedures MOTHER BABY ENROLLMENT Jazmine Potter BUILDING INSPECTION ENGINEER [address] [place] [address] [address] Referral ID Status Reason Start Date Expiration Date Visits Re quested Visits Authorized [id number] Closed 05/09/2023 06/24/2023 105 105 Encounter Details Date Type Department Care Team Description 05/09/2023 9:30 AM CDT Psych Rehab [facility] 701 [place] [address] Karoline Benson MD 701 [facility] S[address]60 [place] [address] Dh, Mother Baby Discharge Disposition: Discharged to [...] LICSW - 05/09/2023 9:30 AM CDT Dept: [facility] Type of Service: Group Therapy Name of Group: Psychoeducation/Skills Group Provider/Group Packaging Sales Representative: Jazmine Potter LICSW Date of Service: 05/09/2023 Start Time: 9:30 AM Stop Time: 10:15 AM Number of Group Members Present: 3 Location of Service: Face to Face at [facility] CONCRETE BLOCK MAKER SERVICES PROVIDED (if applicable): No Session Content [...]
--- OUTSIDE RECORDS SUMMARY | 2023-10-22 23:51 | XMS_ITS | Encounter Summary ---
Author Name Unknown Organization [facility] Address [address] [place] [address] Care Team Providers Care Pearl Fisherman Name Role Phone Abbey Bagley PA-C Unavailable [phone] Abbey Bagley PA-C Primary Care Provider + [phone] Ino Robbins MD Unavailable + [phone] Reason for Visit * Reason Onset Date Comments Care 04/26/2023 Encounter Details Date Type Department Care Team (Late st Contact Info) Description 04/26/2023 MyC Medical Advice [facility] [place] [address] [facility] [address] [place] [address] Ino Robbins MD [address] [place], [place] [address] Care Social History Tobacco Use Types Packs/Day Years Used Date Smoking Tobacco: Former Cigarettes 0.3 Q uit: 03/10/2023 Passive Smoke Exposure: Never Smokeless Tobacco: Never Alcohol Use Standard Drinks/Week Comments Not Currently 0 (1 standard drink = 0.6 oz pur e alcohol) Seldom PHQ-2 Answer Date Recorded PHQ-2 Score 0 04/14/2023 [place] Depression Scale Answer Date Recorded [place] Depression Score 13 03/10/2021 Last EPDS Self [...] documented as of this encounter Care Teams Pearl Fisherman Relationship Specialty Start Date End Date Abbey Bagley PA-C [employer] [address] [address] PCP - General Physician Marketing Analyst 08/15/20 Abbey Bagely PA-C [employer] [address] [address] Physician Marketing Analyst 04/11/20 05/02/23 Ino Robbins MD [address] [place] [address] Assigned OBGYN Provider 01/01/23 documented as of this encounter
--- OUTSIDE RECORDS SUMMARY | 2023-10-22 23:51 | XMS_ITS | Encounter Summary ---
Author Name Unknown Organization [facility] Address [address] [facility] [place] [address] Care Team Providers Care Boom Stick Man Name Role Phone Abbey Bagley PA-C Unavailable [phone] Abbey Bagley PA-C Primary Care Provider + [phone] Ino Robbins MD Unavailable [phone] Reason for Visit * Reason Comments Care Encounter Details Date Type Department Care Team (Late st Contact Info) Description 04/27/2023 3:45 PM CDT Office Visit [facility] [address] [place] [phone] Ino Robbins MD [address] [place], [place] [address] care in third trimester (Primary Dx) Social History Tobacco Use Types Packs/Day Years Used Date Smoking Tobacco: Former Cigarettes 0.3 Q uit: 03/10/2023 Passive Smoke Exposure: Never Smokeless Tobacco: Never Alcohol Use Standard Drinks/Week Comments Not Currently 0 (1 standard drink = 0.6 oz pur e alcohol) Seldom PHQ-2 Answer Date Recorded PHQ-2 Score 0 04/14/2023 [place] Depression Scale Answer Date Recorded [place] Depression Score 13 03/10/2021 Last EPDS Self [...] documented as of this encounter Care Teams Boom Stick Man Relationship Specialty Start Date End Date Abbey Bagley PA-C [employer] [address] [address] PCP - General Physician Account Support Associate 08/15/20 Abbey Bagley PA-C [facility] [address] [address] Physician Account Support Associate 04/11/20 05/02/23 Ino Robbins MD [address] [place] [address] Assigned OBGYN Provider 01/01/23 documented as of this encounter
--- OUTSIDE RECORDS SUMMARY | 2023-10-22 23:51 | XMS_ITS | Encounter Summary ---
Author Name Unknown Organization [facility] Address [address] [place] [address] Phone Care Team Providers Care Frame And Scrap Crusher Name Role Phone Unavailable Primary Care Provider Unavailabl e Reason for Visit * Prior Authorization (Routine) - Closed Specialty Diagnoses / Procedures Referred By Contac t Referred To Contact Psych Rehab Diagnoses Bipolar II disorder () Trauma and stressor-related disorder Procedures MOTHER BABY ENROLLMENT Jazmine Potter, [facility] [address] [place] [address] [address] Referral ID Status Reason Start Date Expiration Date Visits Re quested Visits Authorized [id number] Closed 05/09/2023 06/24/2023 105 105 Encounter Details Date Type Department Care Team Description 05/10/2023 9:30 AM CDT [facility] [address] [place] [phone] Karoline Benson MD 701 [facility] S[address]60 [place], [place] [address] Dh, Mother Baby Discharge Disposition: Discharged to [...] LICSW - 05/10/2023 9:30 AM CDT Dept: [facility] Type of Service: Group Therapy Name of Group: Psychoeducation/Skills Group Provider/Group Photovoltaic Power Systems Engineer: Jazmine Potter LICSW Date of Service: 05/10/2023 Start Time: 9:30 AM Stop Time: 10:15 AM Number of Group Members Present: 4 Location of Service: Face to Face at [facility] SURGICAL TECHNOLOGY INSTRUCTOR SERVICES PROVIDED (if applicable): No Session Content [...]
--- OUTSIDE RECORDS SUMMARY | 2023-10-22 23:51 | XMS_ITS | Encounter Summary ---
Author Name Unknown Organization [facility] Address [address] [place] [address] Phone Care Team Providers Care Personal Lines Insurance Agent Name Role Phone Unavailable Primary Care Provider Unavailabl e Reason for Visit * Reason Comments Psych Medication Management Encounter Details Date Type Department Care Team Description 05/09/2023 11:30 AM CDT Psych Rehab [facility] [address] [place], [place] [phone] Karoline Benson MD 701 [facility] [address] [place], [place] [address] Psych Medication Management Discharge Disposition: Discharged to [...] original note were not included. Mother Baby [facility], New Patient Psychiatry Evaluation Admitted to [facility] on: 05/09/23 Merry Rooney is a 22 y.o. mother of baby (Latha b. 05/03/23) and 2 year old son (Chuy). Referred by [place] inpatient Cultural Context: white, Syriac and Pashto Pronouns: she/her/hers; Supports: Jesús -- supportive Therapist: ; PCP: ; OB-PACKAGING LINE ATTENDANT: Antonio Ob; Dermatology Sales Representative: Feeding Method: breast and bottle feeding with [...] symptoms and possible preeclampsia leading to transferto [place] ICU. Seen by psychiatry (Dr Ortiz) at [place], discontinued from her sertraline and started on [...] for admission to the Mother Baby Day [facility] and requires the structure, support and education [...] that is provided in the Mother Baby [facility]. Plan 1) Admit patient to the Mother Baby Day [facility] Discussed diagnosis and course and frame of [...] and back rather than drive herself from [place]. She'll talk with her about a sleep plan 2) MEDICATIONS: - Reviewed treatment options. Will cont seroquel 50mg hs and 12.5mg bid 3) LABS: Will review labs in Epic 4) Continue to monitor symptoms 5) Engage patient in individual and group therapy process in the [facility]. 6) Review old records. 7) Contact collateral informants as indicated. 8) Arrange appropriate outpatient follow-up at the conclusion of the [facility] Chief Concern I'm anxious all the time. I almost after I had my baby History of Present Illness Pertinent Background ([facility] notes reviewed) [place] well during . Had taken Sertraline 50mg [...] it and it was scary. Went to [facility] and had a seizure and almost . Life flighted to [place]. 05/05-05/07/23 (discharge note from [facility]): transferred to [place] for further management inthe ICU and seen [...] though she is getting ride here from [place]. Feels anxious all of the time and struggles with PTSD symptoms -- has nightmares related to trauma andflashbacks, hypervigilance, and triggered by things that remind her of the experience she had. Last night had a headache and took her blood pressure 160/100 --- went to [facility], it was 150/100 and then started on a blood pressure med. Also taking: -Seroquel 50mg HS and 12.5mg bid -- has helped with sleep and staying calm. -Had depression at 6 months -- took seroquel 25mg for anxiety and insomnia. Diagnosed with bipolar == Sep 2021 admitted voluntarily at [facility] (had been all over the [...] when she was 4. Mother lived in [place]. 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 Legal: no had involvement with the legal system. The patient reports the following spiritual and/or cultural history: Syriac and Pashto background Relationship to her partner/father/co-parent of the [...]
--- OUTSIDE RECORDS SUMMARY | 2023-10-22 23:51 | XMS_ITS | Encounter Summary ---
Author Name Unknown Organization [facility] Address [address] [place] [address] Phone Care Team Providers Care Finish Specialist Name Role Phone Unavailable Primary Care Provider Unavailabl e Reason for Visit * Prior Authorization (Routine) - Closed Specialty Diagnoses / Procedures Referred By Contac t Referred To Contact Psych Rehab Diagnoses Bipolar II disorder () Trauma and stressor-related disorder Procedures MOTHER BABY ENROLLMENT Jazmine Potter, [facility] [address] [place] [address] [address] Referral ID Status Reason Start Date Expiration Date Visits Re quested Visits Authorized [id number] Closed 05/09/2023 06/24/2023 105 105 Encounter Details Date Type Department Care Team Description 05/09/2023 1:45 PM CDT [facility] [address] [place] [phone] Karoline Benson MD 701 [facility] S[address] [place], [place] [phone] Dh, Mother Baby Discharge Disposition: Discharged to [...] LICSW - 05/09/2023 1:45 PM CDT Dept: [facility] Type of Service: Group Therapy Name of Group: Psychoeducation/Skills Group Provider/Group Dental Assistant: Jazmine Potter LICSW Date of Service: 05/09/2023 Start Time: 1:45 PM Stop Time: 2:30 PM Number of Group Members Present: 5 Location of Service: Face to Face at [facility] Session Content (Intervention): The purpose of [...]
--- OUTSIDE RECORDS SUMMARY | 2023-10-22 23:51 | XMS_ITS | Encounter Summary ---
Author Name Unknown Organization [facility] Address [address] [place] [address] Care Team Providers Care Artist Blacksmith Name Role Phone Abbey Bagley PA-C Unavailable [phone] Abbey Bagley PA-C Primary Care Provider + [phone] Ino Robbins MD Unavailable + [phone] Reason for Visit * Auth/Cert (Routine) Specialty Diagnoses / Procedures Referred By Bernarod belle Referred To Contact manager project Diagnoses Indication for care in labor or delivery Indication for care in labor or delivery [address] [place] [address] Referral ID Status Reason Start Date Expiration Date Visits Re quested Visits Authorized [id number] 1 1 Encounter Details Date Type Department Care Team (Late st Contact Info) Description 05/02/2023 8:35 PM CDT Anesthesia Event [facility] Birthplace [address] [place] [address] Wagner Lynn MD [facility] ANESTHESIA [address] [place], [place] [address] Deangelo Gamboa MD [facility] [address] [place] [address] Anesthesia Record Procedure Summary Procedure Name Responsible [...] Answer Date Recorded PHQ-2 Score 0 04/14/2023 [place] Depression Scale Answer Date Recorded Last EPDS [...] nursing care at necessary intervals. [employer] FOR [facility] ([facility]) ONLY: Pain Team Contact information: please page the Pain Team Via [employer]il[employer].Search Pain. During daytime hours, please page the [...] and realistic alternatives discussed. Questions answered and patient/customer success representative(s) expressed understanding. - Discussed: - Discussed [...] nursing care at necessary intervals. JAKollitzMD FOR [facility] ([facility]) ONLY: ?? Pain Team Contact information: please page the Pain Team Via [employer]il[employer]. Search Pain. During daytime hours, please page the attending first. At night please page the resident first. Wagner Lynn MD [place] ANESTHESIA documented in this encounter Visit Diagnoses [...] documented as of this encounter Care Teams Artist Blacksmith Relationship Specialty Start Date End Date Abbey Bagley PA-C [employer] [address] [facility] [address] [place] [address] PCP - General Physician Lead Software Test Engineer 08/15/20 Abbey Bagley PA-C [employer] [address] [place] [address] Physician Lead Software Test Engineer 04/11/20 05/02/23 Ino Robbins MD [address] [place], [place] [address] Assigned OBGYN Provider 01/01/23 documented as of this encounter
--- OUTSIDE RECORDS SUMMARY | 2023-10-22 23:51 | XMS_ITS | Clinical Summary ---
Author Name Unknown Organization [facility] Address [address] [place] [address] Care Team Providers Care Cart Pusher Name Role Phone Abbey Bagley PA-C Primary Care Provider + [phone] Ino Robbins MD Unavailable + [phone] Allergies No known active allergies Medications Medication [...] Answer Date Recorded PHQ-2 Score 0 04/14/2023 [place] Depression Scale Answer Date Recorded Last EPDS [...] Advance Directives For more information, please contact: [phone] Latest Code Status on File Code Status [...] with patient/ legal decision maker Care Teams Cart Pusher Relationship Specialty Start Date End Date Abbey Bagley PA-C [employer] [address] [place] [address] PCP - General Physician Institution Director 08/15/20 Ino Robbins MD [address] [place] [address] Assigned OBGYN Provider 01/01/23
--- OUTSIDE RECORDS SUMMARY | 2023-10-22 23:51 | XMS_ITS | Encounter Summary ---
Author Name Unknown Organization [facility] Address [address] [place] [address] Phone Care Team Providers Care Senior Escrow Officer Name Role Phone Unavailable Primary Care Provider Unavailabl e Encounter Details Date Type Department Care Team Description 05/11/20[address] [facility] [address] [place], [place] [phone] Social History Tobacco Use Types Packs/Day Years [...]
--- OUTSIDE RECORDS SUMMARY | 2023-10-22 23:51 | XMS_ITS | Encounter Summary ---
Author Name Unknown Organization [facility] Address [address] [place] [address] Phone Care Team Providers Care Oceanographic Meteorologist Name Role Phone Unavailable Primary Care Provider Unavailabl e Reason for Visit * Prior Authorization (Routine) - Closed Specialty Diagnoses / Procedures Referred By Contac t Referred To Contact Psych Rehab Diagnoses Bipolar II disorder () Trauma and stressor-related disorder Procedures MOTHER BABY ENROLLMENT Jazmine Potter, [facility] [address] [place] [address] [address] [address] [address] Referral ID Status Reason Start Date Expiration Date Visits Re quested Visits Authorized [id number] Closed 05/09/2023 06/24/2023 105 105 Encounter Details Date Type Department Care Team Description 05/09/2023 12:30 PM CDT [facility] [address] [place] [address] Karoline Benson MD 701 [facility] [address] [place], [place] [phone] Dh, Mother Baby Discharge Disposition: Discharged to [...] OTR/L - 05/09/2023 12:30 PM CDT Dept: [facility] Type of Service: Group Therapy Name of Group: Wellness Group Provider/Group Investment Executive: Alisha Hardy OTR/L Date of Service: 05/09/2023 Start Time: 12:45 PM Stop Time: 1:30 PM Number of Group Members Present: 5 Location of Service: Face to Face at [facility] FILM FLAT INSPECTOR SERVICES PROVIDED (if applicable): No Session [...]
--- OUTSIDE RECORDS SUMMARY | 2023-10-22 23:51 | XMS_ITS | Encounter Summary ---
Author Name Unknown Organization [facility] Address [address] [place] [address] Phone Care Team Providers Care Lodging Facilities Manager Name Role Phone Unavailable Primary Care Provider Unavailabl e Reason for Visit * Reason Comments Blood Pressure Check Encounter Details Date Type Department Care Team Description 05/09/2023 Documentation Only [facility] [address] [place] [phone] Kiana Borges RN [facility] [address] [place] [address] Blood Pressure Check Social History Tobacco Use [...]
--- OUTSIDE RECORDS SUMMARY | 2023-10-22 23:51 | XMS_ITS | Encounter Summary ---
Author Name Unknown Organization [facility] Address [facility] [place] [address] Care Team Providers Care Project Control Officer Name Role Phone Abbey Bagley PA-C Unavailable [phone] Abbey Bagley PA-C Primary Care Provider + [phone] Ino Robbins MD Unavailable + [phone] Encounter Details Date Type Department Care Team (Latest Contact Info) Description 05/02/2023 11:59 PM CDT Hospital Encounter [facility] Birthplace [address] [place] [phone] No Show Discharge Disposition: Home or Self Care Social History Tobacco Use Types Packs/Day Years Used Date Smoking Tobacco: Former Cigarettes 0.3 Q uit: 03/10/2023 Passive Smoke Exposure: Never Smokeless Tobacco: Never Alcohol Use Standard Drinks/Week Comments Not Currently 0 (1 standard drink = 0.6 oz pur e alcohol) Seldom PHQ-2 Answer Date Recorded PHQ-2 Score 0 04/14/2023 [place] Depression Scale Answer Date Recorded [place] Depression Score 13 03/10/2021 Last EPDS Self [...] documented as of this encounter Care Teams Project Control Officer Relationship Specialty Start Date End Date Abbey Bagley [facility]-C [facility] [address] [address] PCP - General Physician Press Hand Supervisor 08/15/20 Abbey Bagley PA-C [employer] [address] [address] Physician Press Hand Supervisor 04/11/20 05/02/23 Ino Robbins MD [address] [place] [address] Assigned OBGYN Provider 01/01/23 documented as of this encounter
--- OUTSIDE RECORDS SUMMARY | 2023-10-22 23:51 | XMS_ITS | Encounter Summary ---
Author Name Unknown Organization [place] Address [address] [place] [address] Care Team Providers Care Telecommunications Linesworker Name Role Phone Abbey Bagley PA-C Unavailable [phone] Abbey Bagley PA-C Primary Care Provider + [phone] Ino Robbins MD Unavailable + [phone] Reason for Referral * Home Health Therapies & Aides (Priority: 1-2 Weeks) Specialty Diagnoses / Procedures Referred By Bernardo belle Referred To Contact [facility] [address] [place] [address] Referral ID Status Reason Start Date Expiration Date Visits Re quested Visits Authorized Question Answer Please see patient within 96 hours of discharge Reason for Referral /Low Milk Supply Comments If your home visit was not scheduled during your hospital stay, you should receive a call from [facility] within 24 hours after discharge to schedule your ordered home visit. If you have not heard by then, please call [phone]. Reason for Visit * Reason Comments Induction Of Labor * Auth/Cert (Routine) Specialty Diagnoses / Procedures Referred By Bernardo belle Referred To Contact platen builder up Diagnoses Indication for care in labor or delivery Indication for care in labor or delivery Rh [address] [place] [address] Referral ID Status Reason Start Date Expiration Date Visits Re quested Visits Authorized [id number] 1 1 Encounter Details Date Type Department Care Team (Latest Contact Info) Description 05/02/2023 7:24 AM CDT - 05/04/2023 12:33 PM CDT Hospital Encounter [facility] [address] [place] [phone] [place] [address] [place] [address] Vaginal delivery (Primary Dx); Indication [...] Answer Date Recorded PHQ-2 Score 0 04/14/2023 [place] Depression Scale Answer Date Recorded Last EPDS [...] Rodriguez MD - 05/04/2023 7:54 AM CDT [facility] OB /Discharge Note S: Patient without complaints. [...] of your health care provider. Copyright 2020 [facility]. All rights reserved. Clinically reviewed by Gala Singh RNC-OB, MSN. [employer] [id number] - Rev 12/02. documented in this encounter [...] Dr. Kelley Diane DO Obstetrics and Gynecology [facility] * Kelley Diane DO - 05/02/2023 4:06 [...] bilaterally. Cerebellar finger to nose, heel to ecsalona intact. Sensory is intact. Babinski down going, [...] be re-consulted if needs arise. DOUGLAS Snyder [facility] 05/04/2023 9:51 AM documented in this encounter Miscellaneous Notes * L&D Delivery Note - Kelley Diane DO - 05/04/2023 12:33 PM CDT OB Vaginal Delivery Note Merry Vargas Age: [age] year old Date of : 2000 GA: 39w4d GP: Labor Complications: EBL: mL Delivery QBL: 100 mL Delivery Type: Vaginal, Spontaneous ROM to Delivery Time: (Delivered) Hours: 19 Minutes: 59 [place] Weight: 3.19 kg (7 lb 0.5 oz) [...] in good and stable condition. Aidan Vargas [[id number]] Labor Event Times Dilation complete date: 05/03/23 [...] Two Team Members Dr. Benedicto Stern RN [place] Suture [place] Sponges (RETIRED) Instruments Initial counts 2 5 [...] Yes Cord Clamping Delay (seconds): 31-60 seconds [place] Resuscitation Methods: None Care at Delivery: Infant to maternal chest. Stimulation and bulb suction provided [place] Measurements Weight: 7 lb 0.5 oz Length: 1' 8.5 Head circumference: 33 cm Skin to Skin and Feeding Plan Skin to skin initiation date/time: 10/16/1840 Skin to skin with: Mother Skin to skin end date/time: Labor Events and Shoulder Dystocia Tracing Prior to Delivery: Category 1 Shoulder dystocia present?: Neg Delivery (Maternal) (Provider to Complete) ([id number]) Episiotomy: None Perineal lacerations: None Repair suture: None Blood Loss Mother: Chaz Vargasvivek Quarles #[id number] Start of Mother's Information Delivery Blood Loss 05/02/23 1419 - 05/04/23 0219 Delivery QBL (mL) Hospital Encounter 100 mL Total 100 mL End of Mother's Information Mother: AliciaChazvivek Quarles #[id number] Delivery - Provider to Complete ([id number]) Delivering clinician: Kelley Diane DO Delivery Type (Choose the 1 that will go to the History): Vaginal, Spontaneous Other personnel: Provider Role Keven Thao RN Delivery Nurse Mae Scott yard supervisor Assist Placenta Date/Time: 05/03/2023 2:23 AM Removal: [...] tianna q2-3 before epidural but difficult to fish bait picker now that she is on her [...] DO LAB - BLOOD ORDER [facility] [address] [facility] Lab (1st floor, no room number) [place] [address], [facility] [phone] * Adult Type and Screen (05/02/2023 9:21 AM CDT) ABO/RH(D) A POS 05/02/2023 8:50 AM CDT RH BLOOD BANK Antibody Screen Negative Negative 05/02/2023 8:50 AM CDT RH BLOOD BANK SPECIMEN EXPIRATION DATE [id number] 05/02/2023 8:50 AM CDT RH BLOOD BANK Blood BLOOD SPECIMEN / Unknown Venipuncture / Unknown 05/02/2023 9:21 AM CDT 05/02/2023 9:36 AM CDT Kelley Diane DO LAB - BLOOD BANK TEST ORDER Performing Organization Address City/[facility]/ZIP Co de Phone Number BLOOD BANK [address] [place] [address], [facility] * Treponema Abs w Reflex to RPR and Titer (05/02/2023 9:21 AM CDT) Treponema Antibody Total Nonreactive Nonreactive 05/02/2023 3:59 PM CDT [facility] C[facility]/PROT/EN DO Blood BLOOD SPECIMEN / Unknown Venipuncture / Unknown 05/02/2023 9:21 AM CDT 05/02/2023 9:36 AM CDT Kelley Diane DO LAB - BLOOD ORDER [facility]/PROT/ENDO [facility] Specialty Core/Prot/Endo [address] [facility] [address], [address] [place] [address], [facility] [phone] * (ABNORMAL) Hemoglobin (05/02/2023 9:21 AM CDT) Hemoglobin 9.2(L) 11.7 - 15.7 g/dL 05/02/2023 9:40 AM CDT LABORATORY Blood BLOOD SPECIMEN / Unknown Venipuncture / Unknown 05/02/2023 9:21 AM CDT 05/02/2023 9:36 AM CDT Kelley Diane DO LAB - BLOOD ORDER [facility] [address] [facility] Lab (1st floor, no room number) [place] [address], [facility] [phone] documented in this encounter Visit Diagnoses Diagnosis [...] Thao, RN)1342 ($Given - Provider: Maite Delgado, LCUÍA) 0419 ($Given - Provider: Cathy Mcintyre RN) [...] documented as of this encounter Care Teams Telecommunications Linesworker Relationship Specialty Start Date End Date Abbey Bagley PA-C [facility] [address] [address] PCP - General Physician Craniologist 08/15/20 Abbey Bagley PA-C [employer] [address] [facility] [address] [place] [address] Physician Craniologist 04/11/20 05/02/23 Ino Robbins MD [address] [place] [address] Assigned OBGYN Provider 01/01/23 documented as of this encounter
--- OUTSIDE RECORDS SUMMARY | 2023-10-22 23:52 | XMS_ITS | Encounter Summary ---
Author Name Unknown Organization [place] Address [address] [place] [address] Care Team Providers Care Truck Dock Material Mover Name Role Phone Abbey Bagley PA-C Unavailable [phone] Abbey Bagley PA-C Primary Care Provider + [phone] Ino Robbins MD Unavailable + [phone] Encounter Details Date Type Department Care Team (Latest Contact Info) Description 03/30/2023 Travel Social History Tobacco Use Types Packs/Day Years Used Date Smoking Tobacco: Some Days Cigarettes 0.3 Smokeless Tobacco: Never Alcohol Use Standard Drinks/Week Comments Not Currently 0 (1 standard drink = 0.6 oz pur e alcohol) Seldom PHQ-2 Answer Date Recorded PHQ-2 Score 4 03/30/2023 [place] Depression Scale Answer Date Recorded [place] Depression Score 13 03/10/2021 Last EPDS Self [...] documented as of this encounter Care Teams Truck Dock Material Mover Relationship Specialty Start Date End Date Abbey Bagley PA-C [employer] [address] [facility] [address] [place] [address] PCP - General Physician Vice Principal 08/15/20 Abbey Bagley PA-C [employer] [address] [facility] [address] [place] [address] Physician Vice Principal 04/11/20 05/02/23 Ino Robbins MD [address] [place] [address] Assigned OBGYN Provider 01/01/23 documented as of this encounter
--- OUTSIDE RECORDS SUMMARY | 2023-10-22 23:52 | XMS_ITS | Encounter Summary ---
Author Name Unknown Organization [place] Address [address] [facility] [place] [address] Care Team Providers Care Document Review Specialist Name Role Phone Abbey Bagley PA-C Unavailable [phone] Abbey Bagley PA-C Primary Care Provider [phone] Ino Robbins MD Unavailable [phone] Reason for Visit * Reason Comments Vaginal Bleeding Encounter Details Date Type Department Care Team (Latest Contact Info) Description 04/09/2023 1:24 PM CDT - 04/09/2023 3:18 PM CDT Hospital Encounter [facility] [address] [place] [phone] Christie Medellin MD [address] [place] [address] Discharge Disposition: Home or Self Care Social History Tobacco Use Types Packs/Day Years Used Date Smoking Tobacco: Some Days Cigarettes 0.3 Smokeless Tobacco: Never Alcohol Use Standard Drinks/Week Comments Not Currently 0 (1 standard drink = 0.6 oz pur e alcohol) Seldom PHQ-2 Answer Date Recorded PHQ-2 Score 4 03/30/2023 [place] Depression Scale Answer Date Recorded [place] Depression Score 13 03/10/2021 Last EPDS Self [...] (see handout) Call your doctor or nurse saw cleaner if your baby is moving less than [...] Orde r Schedule Non Stress Test by Provider/clinching machine operator Routine One Time for 1 Occurrences starting [...] mg/dL 04/09/2023 2:42 PM CDT LABORATORY Specific [place] Urine 1.027 1.003 - 1.035 04/09/2023 2:42 [...] - URINE ORDERABL ES Performing Organization Address City/[facility]/ZIP Co de Phone Number LABORATORY [facility] [address] 1st floor, [address] [place] [address], [facility] [phone] * (ABNORMAL) Wet preparation (04/09/2023 2:29 PM [...] MD LAB - MICRO GENERAL ORDERABLES LABORATORY [facility] [address] 1st floor, [address] [place] [address], [facility] [phone] * NON-STRESS TEST - HIM SCAN (04/09/2023 [...] documented as of this encounter Care Teams Document Review Specialist Relationship Specialty Start Date End Date Abbey Bagley PA-C [employer] [address] [place] [address] PCP - General Physician Seed Buyer 08/15/20 Abbey Bagley PA-C [employer] [facility] [place] [address] [place] [address] Physician Seed Buyer 04/11/20 05/02/23 Ino Robbins MD [address] [place], [place] [address] Assigned OBGYN Provider 01/01/23 documented as of this encounter
--- OUTSIDE RECORDS SUMMARY | 2023-10-22 23:52 | XMS_ITS | Encounter Summary ---
Author Name Unknown Organization [place] Address [address] [facility] [place] [address] Care Team Providers Care Windows Infrastructure Engineer Name Role Phone Abbey Bagley PA-C Unavailable [phone] Abbey Bagley PA-C Primary Care Provider + [phone] Ino Robbins MD Unavailable + [phone] Encounter Details Date Type Department Care Team (Late st Contact Info) Description 04/01/2023 8:30 AM CDT [facility] [address] [facility] [address] [place] [phone] Abnormal maternal glucose tolerance, antepartum Social History Tobacco Use Types Packs/Day Years Used Date Smoking Tobacco: Some Days Cigarettes 0.3 Smokeless Tobacco: Never Alcohol Use Standard Drinks/Week Comments Not Currently 0 (1 standard drink = 0.6 oz pur e alcohol) Seldom PHQ-2 Answer Date Recorded PHQ-2 Score 4 03/30/2023 [place] Depression Scale Answer Date Recorded [place] Depression Score 13 03/10/2021 Last EPDS Self [...] - BLOOD OR DERABLES Performing Organization Address City/[facility]/ZIP Co de Phone Number U LABORATORY [facility] [place] [facility] [address] [facility], [address] [place] [address], [facility] [phone] * Gestational Glucose Tolerance Testing, 2 Hour (04/01/2023 10:38 AM CDT) Gestational GTT 2 Hr Post Dose 117 60 - 154 mg/dL 04/02/2023 12:23 AM CDT [facility] LABORATORY Blood BLOOD SPECIMEN / Unknown Venipuncture / Unknown 04/01/2023 10:38 AM CDT 04/01/2023 10:38 AM CDT Ino Robbins MD LAB - BLOOD OR DERABLES Performing Organization Address City/[facility] Co de Phone Number LABORATORY [facility] [address] [facility], [address] [place] [address], [facility] [phone] * Gestational Glucose Tolerance Testing, 1 Hour (04/01/2023 9:37 AM CDT) Gestational GTT 1 Hr Post Dose 151 60 - 179 mg/dL 04/02/2023 12:16 AM CDT U LABORATORY Blood BLOOD SPECIMEN / Unknown Venipuncture / Unknown 04/01/2023 9:37 AM CDT 04/01/2023 9:37 AM CDT Ino Robbins MD LAB - BLOOD OR DERABLES LABORATORY [facility] [address] [facility], [address] [place] [address], [facility] [phone] * Gestational Glucose Tolerance Testing, Fasting (04/01/2023 8:31 AM CDT) Gestational GTT Fasting 89 60 - 94 mg/dL 04/01/2023 7:17 PM CDT [facility] LABORATORY Blood BLOOD SPECIMEN / Unknown Venipuncture / Unknown 04/01/2023 8:31 AM CDT 04/01/2023 8:35 AM CDT Ino Robbins MD LAB - BLOOD OR DERABLES [facility] [place] [facility] [address] [facility], [address] [place] [address], [facility] [phone] documented in this encounter Visit Diagnoses Diagnosis Abnormal maternal glucose tolerance, antepartum documented in this encounter Additional Health Concerns Assessment Noted Time PHQ-9 Depression Total Score: 023 12:25 PM CDT documented as of this encounter Care Teams Windows Infrastructure Engineer Relationship Specialty Start Date End Date Abbey Bagley PA-C [employer] [address] [facility] [address] [place] [address] PCP - General Physician Herbarium Worker 08/15/20 Abbey Bagley PA-C [employer] [address] [facility] [address] [place] [address] Physician Herbarium Worker 04/11/20 05/02/23 Ino Robbins MD [address] [place] [address] Assigned OBGYN Provider 01/01/23 documented as of this encounter
--- OUTSIDE RECORDS SUMMARY | 2023-10-22 23:52 | XMS_ITS | Encounter Summary ---
Author Name Unknown Organization [place] Address [address] [facility] [place] [address] Care Team Providers Care Airline Pilot Name Role Phone Abbey Bagley PA-C Unavailable [phone] Abbey Bagley PA-C Primary Care Provider + [phone] Ino Robbins MD Unavailable [phone] Reason for Visit * Reason Comments Care Encounter Details Date Type Department Care Team (Late st Contact Info) Description 03/30/2023 11:45 AM CDT Office Visit [facility] [address] [place] [phone] Ino Robbins MD [address] [place], [place] [address] care in third trimester (Primary Dx); HSV [...] Answer Date Recorded PHQ-2 Score 4 03/30/2023 [place] Depression Scale Answer Date Recorded [place] Depression Score 13 03/10/2021 Last EPDS Self [...] Body Mass Index 33.52 11/04/2022 3:15 PM ELIGIBILITY AND OCCUPANCY INTERVIEWER documented in this encounter Progress Notes * Ino Robbins MD - 03/30/2023 11:45 AM CDT 22yo at 34w5d. Care has been intermittent due primarily to familial chaos. Moved to [place] and living arrangements were not as advertised. [...] Robbins MD LAB - BLOOD OR DERABLES [facility] [address] [facility], [address] [place] [address], [facility] [phone] * Treponema Abs w Reflex to RPR and Titer (03/30/2023 12:53 PM CDT) Treponema Antibody Total Nonreactive Nonreactive 03/31/2023 9:50 AM CDT SPECIALTY CORE/PROT/EN DO Blood BLOOD SPECIMEN / Unknown Venipuncture / Unknown 03/30/2023 12:53 PM CDT 03/30/2023 12:53 PM CDT Ino Robbins MD LAB - BLOOD OR DERABLES [facility] SPECIALTY CORE/PROT/ENDO Specialty Core/Prot/Endo [address] [facility] [address] [facility], [address] [place] [address], [facility] [phone] * (ABNORMAL) CBC with platelets (03/30/2023 12:53 [...] Robbins MD LAB - BLOOD OR DERABLES [place] LABORATORY [facility] [address] [facility], [address] [place] [address], [facility] [phone] documented in this encounter Visit Diagnoses Diagnosis care in third trimester- Primary HSV (herpes simplex virus) infection Herpes simplex without mention of complication documented in this encounter Additional Health Concerns Assessment Noted Time PHQ-9 Depression Total Score: 023 12:25 PM CDT documented as of this encounter Care Teams Airline Pilot Relationship Specialty Start Date End Date Abbey Bagley PA-C [facility] [place] [address] [place] [address] PCP - General Physician Tax Audit Manager 08/15/20 Abbey Bagley PA-C [facility] [place] [address] [place] [address] Physician Tax Audit Manager 04/11/20 05/02/23 Ino Robbins MD [address] [place], [place] [address] Assigned OBGYN Provider 01/01/23 documented as of this encounter
--- OUTSIDE RECORDS SUMMARY | 2023-10-22 23:52 | XMS_ITS | Encounter Summary ---
Author Name Unknown Organization [place] Address [address] [facility] [place] [address] Care Team Providers Care Wash Rack Operator Name Role Phone Abbey Bagley PA-C Unavailable [phone] Abbey Bagley PA-C Primary Care Provider + [phone] Ino Robbins MD Unavailable [phone] Reason for Visit * Reason Comments Med Change Request Encounter Details Date Type Department Care Team (Late st Contact Info) Description 03/01/2023 [facility] [address] [place] [address] Ino Robbins MD [address] [place], [place] [address] Med Change Request Social History Tobacco Use Types Packs/Day Years Used Date Smoking Tobacco: Some Days Cigarettes 0.3 Smokeless Tobacco: Never Alcohol Use Standard Drinks/Week Comments Not Currently 0 (1 standard drink = 0.6 oz pur e alcohol) Seldom PHQ-2 Answer Date Recorded PHQ-2 Score 2 11/26/2022 [place] Depression Scale Answer Date Recorded [place] Depression Score 13 03/10/2021 Last EPDS Self [...] 03/01/2023 12:31 PM CDT Prescription approved per [facility] Refill Protocol. Diana Rodrigues RN documented in this encounter Plan of Treatment Not on file documented as of this encounter Visit Diagnoses Diagnosis HSV (herpes simplex virus) infection Herpes simplex without mention of complication documented in this encounter Additional Health Concerns Assessment Noted Time PHQ-9 Depression Total Score: 19 021 3:52 PM CDT documented as of this encounter Care Teams Wash Rack Operator Relationship Specialty Start Date End Date Abbey Bagley PA-C [employer] [address] [address] PCP - General Physician Director Industrial 08/15/20 Abbey Bagley PA-C [employer] [place] [address] [address] Physician Director Industrial 04/11/20 05/02/23 Ino Robbins MD [address] [place], [place] [address] Assigned OBGYN Provider 01/01/23 documented as of this encounter
--- OUTSIDE RECORDS SUMMARY | 2023-10-22 23:52 | XMS_ITS | Encounter Summary ---
Author Name Unknown Organization [place] Address [facility] [place] [address] Care Team Providers Care Publications Writer Name Role Phone Abbey Bagley PA-C Unavailable [phone] Abbey Bagley PA-C Primary Care Provider + [phone] Ino Robbins MD Unavailable + [phone] Encounter Details Date Type Department Care Team (Latest Contact Info) Description 04/01/2023 Travel Social History Tobacco Use Types Packs/Day Years Used Date Smoking Tobacco: Some Days Cigarettes 0.3 Smokeless Tobacco: Never Alcohol Use Standard Drinks/Week Comments Not Currently 0 (1 standard drink = 0.6 oz pur e alcohol) Seldom PHQ-2 Answer Date Recorded PHQ-2 Score 4 03/30/2023 [place] Depression Scale Answer Date Recorded [place] Depression Score 13 03/10/2021 Last EPDS Self [...] documented as of this encounter Care Teams Publications Writer Relationship Specialty Start Date End Date Abbey Bagley PA-C [employer] [address] [facility] [address] [place] [address] PCP - General Physician Principal Trainer 08/15/20 Abbey Bagley PA-C [employer] [address] [facility] [address] [place] [address] Physician Principal Trainer 04/11/20 05/02/23 Ino Robbins MD [address] [place] [address] Assigned OBGYN Provider 01/01/23 documented as of this encounter
--- OUTSIDE RECORDS SUMMARY | 2023-10-22 23:52 | XMS_ITS | Encounter Summary ---
Author Name Unknown Organization [place] Address [address] [facility] [place] [address] Care Team Providers Care Graduate Teacher Education Name Role Phone Abbey Bagley PA-C Unavailable [phone] Abbey Bagley PA-C Primary Care Provider + [phone] Ino Robbins MD Unavailable + [phone] Reason for Visit * Reason Comments Care Encounter Details Date Type Department Care Team (Late st Contact Info) Description 04/20/2023 1:30 PM CDT Office Visit [facility] [address] [place] [phone] Ino Robbins MD [address], [place] [address] care in third trimester (Primary Dx) Social History Tobacco Use Types Packs/Day Years Used Date Smoking Tobacco: Former Cigarettes 0.3 Q uit: 03/10/2023 Passive Smoke Exposure: Never Smokeless Tobacco: Never Alcohol Use Standard Drinks/Week Comments Not Currently 0 (1 standard drink = 0.6 oz pur e alcohol) Seldom PHQ-2 Answer Date Recorded PHQ-2 Score 0 04/14/2023 [place] Depression Scale Answer Date Recorded [place] Depression Score 13 03/10/2021 Last EPDS Self [...] documented as of this encounter Care Teams Graduate Teacher Education Relationship Specialty Start Date End Date Abbey Bagley PA-C [employer] [address] [address] PCP - General Physician Eyeglass Cutter 11/6/20 Abbey Bagley PA-C [facility] [address] [address] Physician Eyeglass Cutter 04/11/20 05/02/23 Ino Robbins MD [address] [place], [place] [address] Assigned OBGYN Provider 01/01/23 documented as of this encounter
--- OUTSIDE RECORDS SUMMARY | 2023-10-22 23:52 | XMS_ITS | Encounter Summary ---
Author Name Unknown Organization [place] Address [address] [facility] [place] [address] Care Team Providers Care Junior Systems Administrator Name Role Phone Abbey Bagley PA-C Unavailable [phone] Abbey Bagley PA-C Primary Care Provider [phone] Ino Robbins MD Unavailable Reason for Visit * Reason Comments Rule Out Labor Encounter Details Date Type Department Care Team (Latest Contact Info) Description 04/24/2023 11:01 PM CDT - 04/25/2023 1:18 AM CDT Hospital Encounter [facility] [address] [place] [address] [place] [address] [place] [address] Discharge Disposition: Home or Self Care Social History Tobacco Use Types Packs/Day Years Used Date Smoking Tobacco: Former Cigarettes 0.3 Q uit: 03/10/2023 Passive Smoke Exposure: Never Smokeless Tobacco: Never Alcohol Use Standard Drinks/Week Comments Not Currently 0 (1 standard drink = 0.6 oz pur e alcohol) Seldom PHQ-2 Answer Date Recorded PHQ-2 Score 0 04/14/2023 [place] Depression Scale Answer Date Recorded [place] Depression Score 13 03/10/2021 Last EPDS Self [...] (see handout) Call your doctor or nurse upholstery handler if your baby is moving less than [...] Your guide to early labor at home (Mohawk) documented in this encounter Medications at Time [...] RN - 04/24/2023 11:48 PM CDT 04/24/23 5085 Provider Notification Provider Name/Title Dr. Diane Method [...] DO LAB - URINE ORDER [facility] Acute [facility] Lab [address] [facility] Lab (1st floor, no room number) [place] [address], [facility] [phone] * (ABNORMAL) CBC with platelets (04/25/2023 12:03 [...] LAB - BLOOD ORDER [facility] Lab [address] Lab (1st floor, no room number) [place] [address], [facility] [phone] * (ABNORMAL) Comprehensive metabolic panel (04/25/2023 12:03 [...] Benedicto DO LAB - BLOOD ORDER [facility] Acute Care Lab [address] Lab (1st floor, no room number) [place] [address], [facility] [phone] documented in this encounter Visit Diagnoses Diagnosis [...] allergy to any local anesthetic or any garcie product. Do NOT use both lidocaine intradermal/subcutaneous [...] documented as of this encounter Care Teams Junior Systems Administrator Relationship Specialty Start Date End Date Abbey Bagley PA-C [facility] [address] [address] PCP - General Physician Typing Secretary 08/15/20 Abbey Bagley PA-C [facility] [address] [address] Physician Typing Secretary 04/11/20 05/02/23 Ino Robbins MD [address] [place], [place] [address] Assigned OBGYN Provider 01/01/23 documented as of this encounter
--- OUTSIDE RECORDS SUMMARY | 2023-10-22 23:52 | XMS_ITS | Encounter Summary ---
Author Name Unknown Organization [place] Address [address] [facility] [place] [address] Care Team Providers Care Mobile Architect Name Role Phone Abbey Bagley PA-C Unavailable [phone] Abbey Bagley PA-C Primary Care Provider [phone] Ino Robbins MD Unavailable Reason for Visit * Reason Comments Decreased Movement Abdominal Cramping Encounter Details Date Type Department Care Team (Latest Contact Info) Description 04/12/2023 3:31 PM CDT - 04/12/2023 5:05 PM CDT Hospital Encounter [facility] Birthplace [address] [place] [address] [place] [address] [place], [place] [id number] Encounter for triage in patient (Primary Dx) [...] Answer Date Recorded PHQ-2 Score 4 03/30/2023 [place] Depression Scale Answer Date Recorded [place] Depression Score 13 03/10/2021 Last EPDS Self [...] (see handout) Call your doctor or nurse electronic commerce specialist if your baby is moving less than [...] sent through Care Everywhere. * Kick Counts (Hebrew) documented in this encounter Medications at Time [...] Miscellaneous Notes * Plan of Care - Berndaette Blair RN - 04/12/2023 5:06 PM CDT [...] to home. * Provider Notification - Bernadette Bliar RN - 04/12/2023 4:16 PM CDT 04/12/23 [...] the bathroom, patient seen on 04/[address] [facility] for similar complaints. MD updated on FHR [...] Orde r Schedule Non Stress Test by Provider/agricultural lender Routine One Time for 1 Occurrences starting [...] BIOPHY PROFILE W/O NST SINGLE W/LTD LOCATION: [facility] DATE: 04/12/2023 INDICATION: 36w4d with decreased movement COMPARISON: None. FINDINGS: Single living fetus, cephalic presentation. HEART RATE: 149 bpm. SDP 5.2 cm. PLACENTA: Anterior. No previa. CERVIX: Not visualized. 2/2 breathing 2/2 movements 2/2 tone 2/2 amniotic fluid Total biophysical profile 05/17 Procedure Note Danyell Hi MD - 04/12/2023 EXAM: US OB BIOPHY PROFILE W/O NST SINGLE W/LTD LOCATION: [facility] DATE: 04/12/2023 INDICATION: 36w4d with decreased movement [...] documented as of this encounter Care Teams Mobile Architect Relationship Specialty Start Date End Date Abbey Bagley PA-C [facility] [address] [address] PCP - General Physician Hog Sticker 08/15/20 Abbey Bagley PA-C [facility] [address] [facility] [address] [place] [address] Physician Hog Sticker 04/11/20 05/02/23 Ino Robbins MD [facility] [place] [address] [address] Assigned OBGYN Provider 01/01/23 documented as of this encounter
--- OUTSIDE RECORDS SUMMARY | 2023-10-22 23:52 | XMS_ITS | Encounter Summary ---
Author Name Unknown Organization [place] Address [facility] [place] [address] Care Team Providers Care Installation Superintendent Name Role Phone Abbey Bagley PA-C Unavailable [phone] Abbey Bagley PA-C Primary Care Provider + [phone] Ino Robbins MD Unavailable + [phone] Encounter Details Date Type Department Care Team (Latest Contact Info) Description 04/12/2023 Travel Social History Tobacco Use Types Packs/Day Years Used Date Smoking Tobacco: Some Days Cigarettes 0.3 Passive Smoke Exposure: Never Smokeless Tobacco: Never Alcohol Use Standard Drinks/Week Comments Not Currently 0 (1 standard drink = 0.6 oz pur e alcohol) Seldom PHQ-2 Answer Date Recorded PHQ-2 Score 4 03/30/2023 [place] Depression Scale Answer Date Recorded [place] Depression Score 13 03/10/2021 Last EPDS Self [...] documented as of this encounter Care Teams Installation Superintendent Relationship Specialty Start Date End Date Abbey Bagley PA-C [employer] [address] [facility] [address] [place] [address] PCP - General Physician Distributed Generation Project Manager 08/15/20 Abbey Bagley PA-C [employer] [address] [place] [address] Physician Distributed Generation Project Manager 04/11/20 05/02/23 Ino Robbins MD [address] [place], [place] [address] Assigned OBGYN Provider 01/01/23 documented as of this encounter
--- OUTSIDE RECORDS SUMMARY | 2023-10-22 23:52 | XMS_ITS | Encounter Summary ---
Author Name Unknown Organization [place] Address [address] [facility] [place] [address] Care Team Providers Care Conference Planner Name Role Phone Abbey Bagley PA-C Unavailable [phone] Abbey Bagley PA-C Primary Care Provider [phone] Ino Robbins MD Unavailable [phone] Reason for Visit * Reason Comments Rule Out Labor Encounter Details Date Type Department Care Team (Latest Contact Info) Description 04/22/2023 12:14 PM CDT - 04/22/2023 3:10 PM CDT Hospital Encounter [facility]place [address] [place] [phone] Vanessa Lopes MD [address] [place] [address] Discharge Disposition: Home or Self Care Social History Tobacco Use Types Packs/Day Years Used Date Smoking Tobacco: Former Cigarettes 0.3 Q uit: 03/10/2023 Passive Smoke Exposure: Never Smokeless Tobacco: Never Alcohol Use Standard Drinks/Week Comments Not Currently 0 (1 standard drink = 0.6 oz pur e alcohol) Seldom PHQ-2 Answer Date Recorded PHQ-2 Score 0 04/14/2023 [place] Depression Scale Answer Date Recorded [place] Depression Score 13 03/10/2021 Last EPDS Self [...] day. Activity: Call your doctor or nurse systems program manager if your baby is moving less than [...] CDT Goal Outcome Evaluation: Patient present to [facility] for labor evaluation-patient was being seen by [...] documented as of this encounter Care Teams Conference Planner Relationship Specialty Start Date End Date Abbey Bagley PA-C [employer] [address] [address] PCP - General Physician Kerrick Kleaner Operator 08/15/20 Abbey Bagley PA-C [employer] [address] [address] Physician Kerrick Kleaner Operator 04/11/20 05/02/23 Ino Robbins MD [address] [place] [address] Assigned OBGYN Provider 01/01/23 documented as of this encounter
--- OUTSIDE RECORDS SUMMARY | 2023-10-22 23:52 | XMS_ITS | Encounter Summary ---
Author Name Unknown Organization [place] Address [address] [facility] [place] [address] Care Team Providers Care Regional Sales Trainer Name Role Phone Abbey Bagley PA-C Unavailable [phone] Abbey Bagley PA-C Primary Care Provider + [phone] Ino Robbins MD Unavailable [phone] Reason for Visit * Reason Comments Care Encounter Details Date Type Department Care Team (Latest Contact Info) Description 04/14/2023 4:15 PM CDT Office Visit [facility] [place] [address] [facility] [address] [place] [address] [place] [address] [place] [address] care in third trimester (Primary Dx) Social History Tobacco Use Types Packs/Day Years Used Date Smoking Tobacco: Some Days Cigarettes 0.3 Passive Smoke Exposure: Never Smokeless Tobacco: Never Alcohol Use Standard Drinks/Week Comments Not Currently 0 (1 standard drink = 0.6 oz pur e alcohol) Seldom PHQ-2 Answer Date Recorded PHQ-2 Score 0 04/14/2023 [place] Depression Scale Answer Date Recorded [place] Depression Score 13 03/10/2021 Last EPDS Self [...] weeks, then weekly till delivery Phone numbers [place]: Day/ night [phone] ask for ob triage Emergency: Call labor and delivery: [phone] What should I call about?? Contraction every [...] mother is at rest and focused on [facility] Address [address] [facility], [place] [address] Dr. Kelley Diane DO SEED MILL SUPERINTENDENT [facility] documented in this encounter Progress Notes * [...] Xpert GBS LB Assay, performed on the Event [employer], is a qualitative in vitro [...] settings. The device is not intended for [id number] use. Kelley Diane DO LAB - MICRO GENER AL ORDERABLES [facility] Inf. Diseases Diag. Lab [address] [facility], [address] [place] [address], [facility] [phone] documented in this encounter Visit Diagnoses Diagnosis care in third trimester- Primary documented in this encounter Additional Health Concerns Assessment Noted Time PHQ-9 Depression Total Score: 21 023 12:25 PM CDT documented as of this encounter Care Teams Regional Sales Trainer Relationship Specialty Start Date End Date Abbey Bagley PA-C [employer] [address] [address] PCP - General Physician Emergency Department Physician 08/15/20 Abbey Bagley PA-C [employer] [address] [address] Physician Emergency Department Physician 04/11/20 05/02/23 Ino Robbins MD [address] [place] [address] Assigned OBGYN Provider 01/01/23 documented as of this encounter
--- OUTSIDE RECORDS SUMMARY | 2023-10-22 23:52 | XMS_ITS | Encounter Summary ---
Author Name Unknown Organization [place] Address [facility] [place] [address] Care Team Providers Care Patch Worker Name Role Phone Abbey Bagley PA-C Unavailable [phone] Abbey Bagley PA-C Primary Care Provider + [phone] Ino Robbins MD Unavailable + [phone] Encounter Details Date Type Department Care Team (Latest Contact Info) Description 04/20/2023 Travel Social History Tobacco Use Types Packs/Day Years Used Date Smoking Tobacco: Former Cigarettes 0.3 Q uit: 03/10/2023 Passive Smoke Exposure: Never Smokeless Tobacco: Never Alcohol Use Standard Drinks/Week Comments Not Currently 0 (1 standard drink = 0.6 oz pur e alcohol) Seldom PHQ-2 Answer Date Recorded PHQ-2 Score 0 04/14/2023 [place] Depression Scale Answer Date Recorded [place] Depression Score 13 03/10/2021 Last EPDS Self [...] documented as of this encounter Care Teams Patch Worker Relationship Specialty Start Date End Date Abbey Bagley PA-C [facility] [address] [place] [address] PCP - General Physician Workforce Advisor 08/15/20 Abbey Bagley PA-C [facility] [address] [place] [address] Physician Workforce Advisor 04/11/20 05/02/23 Ino Robbins MD [address] [place] [address] Assigned OBGYN Provider 01/01/23 documented as of this encounter
--- OUTSIDE RECORDS SUMMARY | 2023-10-22 23:52 | XMS_ITS | Encounter Summary ---
Author Name Unknown Organization [place] Address [facility] [place] [address] Care Team Providers Care Film Masker Name Role Phone Abbey Bagley PA-C Unavailable [phone] Abbey Bagley PA-C Primary Care Provider + [phone] Ino Robbins MD Unavailable + [phone] Encounter Details Date Type Department Care Team (Latest Contact Info) Description 03/23/2023 Travel Social History Tobacco Use Types Packs/Day Years Used Date Smoking Tobacco: Some Days Cigarettes 0.3 Smokeless Tobacco: Never Alcohol Use Standard Drinks/Week Comments Not Currently 0 (1 standard drink = 0.6 oz pur e alcohol) Seldom PHQ-2 Answer Date Recorded PHQ-2 Score 2 11/26/2022 [place] Depression Scale Answer Date Recorded [place] Depression Score 13 03/10/2021 Last EPDS Self [...] documented as of this encounter Care Teams Film Masker Relationship Specialty Start Date End Date Abbey Bagley PA-C [employer] [address] [facility] [address] [place] [address] PCP - General Physician Wood Patternmaker Apprentice 08/15/20 Abbey Bagley PA-C [employer] [address] [facility] [address] [place] [address] Physician Wood Patternmaker Apprentice 04/11/20 05/02/23 Ino Robbins MD [address] [place] [address] Assigned OBGYN Provider 01/01/23 documented as of this encounter
--- OUTSIDE RECORDS SUMMARY | 2023-10-22 23:52 | XMS_ITS | Encounter Summary ---
Author Name Unknown Organization [place] Address [facility] [place] [address] Care Team Providers Care Wafer Production Lead Worker Name Role Phone Abbey Bagley PA-C Unavailable [phone] Abbey Bagley PA-C Primary Care Provider + [phone] Ino Robbins MD Unavailable + [phone] Encounter Details Date Type Department Care Team (Latest Contact Info) Description 04/22/2023 Travel Social History Tobacco Use Types Packs/Day Years Used Date Smoking Tobacco: Former Cigarettes 0.3 Q uit: 03/10/2023 Passive Smoke Exposure: Never Smokeless Tobacco: Never Alcohol Use Standard Drinks/Week Comments Not Currently 0 (1 standard drink = 0.6 oz pur e alcohol) Seldom PHQ-2 Answer Date Recorded PHQ-2 Score 0 04/14/2023 [place] Depression Scale Answer Date Recorded [place] Depression Score 13 03/10/2021 Last EPDS Self [...] documented as of this encounter Care Teams Wafer Production Lead Worker Relationship Specialty Start Date End Date Abbey Bagley PA-C [employer] [address] [place] [address] PCP - General Physician White Hat Hacker 08/15/20 Abbey Bagley PA-C [employer] [address] [place] [address] Physician White Hat Hacker 04/11/20 05/02/23 Ino Robbins MD [address] [place] [address] Assigned OBGYN Provider 01/01/23 documented as of this encounter
--- OUTSIDE RECORDS SUMMARY | 2023-10-22 23:52 | XMS_ITS | Encounter Summary ---
Author Name Unknown Organization [place] Address [address] [facility] [place] [address] Care Team Providers Care Loop Drier Operator Name Role Phone Abbey Bagley PA-C Unavailable [phone] Abbey Bagley PA-C Primary Care Provider + [phone] Ino Robbins MD Unavailable [phone] Encounter Details Date Type Department Care Team (Late st Contact Info) Description 03/30/2023 Orders Only [facility] [place] [address] [facility] [address] [place] [address] Ino Robbins MD [address] [place], [place] [address] Abnormal maternal glucose tolerance, antepartum (Primary Dx) Social History Tobacco Use Types Packs/Day Years Used Date Smoking Tobacco: Some Days Cigarettes 0.3 Smokeless Tobacco: Never Alcohol Use Standard Drinks/Week Comments Not Currently 0 (1 standard drink = 0.6 oz pur e alcohol) Seldom PHQ-2 Answer Date Recorded PHQ-2 Score 4 03/30/2023 [place] Depression Scale Answer Date Recorded [place] Depression Score 13 03/10/2021 Last EPDS Self [...] documented as of this encounter Care Teams Loop Drier Operator Relationship Specialty Start Date End Date Abbey Bagley PA-C [employer] [address] [address] PCP - General Physician Display Coordinator 08/15/20 Abbey Bagley PA-C [employer] [address] [address] Physician Display Coordinator 04/11/20 05/02/23 Ino Robbins MD [address] [place] [address] Assigned OBGYN Provider 01/01/23 documented as of this encounter
--- OUTSIDE RECORDS SUMMARY | 2023-10-22 23:52 | XMS_ITS | Encounter Summary ---
Author Name Unknown Organization [place] Address [address] [facility] [place] [address] Care Team Providers Care Circulating Process Inspector Name Role Phone Abbey Bagley PA-C Unavailable [phone] Abbey Bagley PA-C Primary Care Provider + [phone] Ino Robbins MD Unavailable [phone] Reason for Visit * Reason Comments Medication Refill Encounter Details Date Type Department Care Team (Late st Contact Info) Description 02/10/2023 Refill [facility] Women's [facility] [address] [place] [address] Ino Robbins MD [address] [place], [place] [address] Medication Refill Social History Tobacco Use Types Packs/Day Years Used Date Smoking Tobacco: Some Days Cigarettes 0.3 Smokeless Tobacco: Never Alcohol Use Standard Drinks/Week Comments Not Currently 0 (1 standard drink = 0.6 oz pur e alcohol) Seldom PHQ-2 Answer Date Recorded PHQ-2 Score 2 11/26/2022 [place] Depression Scale Answer Date Recorded [place] Depression Score 13 03/10/2021 Last EPDS Self [...] 02/10/2023 10:55 AM CDT Prescription approved per [facility] Refill Protocol. Last OV: 01/19/23 which provider [...] documented as of this encounter Care Teams Circulating Process Inspector Relationship Specialty Start Date End Date Abbey Bagley PA-C [employer] [address] [address] PCP - General Physician Nurse Clinical 08/15/20 Abbey Bagley PA-C [employer] [address] [place] [address] Physician Nurse Clinical 04/11/20 05/02/23 Ino Robbins MD [address] [place], [place] [address] Assigned OBGYN Provider 01/01/23 documented as of this encounter
--- OUTSIDE RECORDS SUMMARY | 2023-10-22 23:52 | XMS_ITS | Encounter Summary ---
Author Name Unknown Organization [place] Address [facility] [place] [address] Care Team Providers Care Graphic Art Technician Name Role Phone Abbey Bagley PA-C Unavailable [phone] Abbey Bagley PA-C Primary Care Provider + [phone] Ino Robbins MD Unavailable + [phone] Encounter Details Date Type Department Care Team (Latest Contact Info) Description 04/14/2023 Travel Social History Tobacco Use Types Packs/Day Years Used Date Smoking Tobacco: Some Days Cigarettes 0.3 Passive Smoke Exposure: Never Smokeless Tobacco: Never Alcohol Use Standard Drinks/Week Comments Not Currently 0 (1 standard drink = 0.6 oz pur e alcohol) Seldom PHQ-2 Answer Date Recorded PHQ-2 Score 0 04/14/2023 [place] Depression Scale Answer Date Recorded [place] Depression Score 13 03/10/2021 Last EPDS Self [...] documented as of this encounter Care Teams Graphic Art Technician Relationship Specialty Start Date End Date Abbey Bagley PA-C [employer] [address] [facility] [address] [place] [address] PCP - General Physician Grey Roll Worker 08/15/20 Abbey Bagley PA-C [employer] [address] [place] [address] Physician Grey Roll Worker 04/11/20 05/02/23 Ino Robbins MD [address] [place], [place] [address] Assigned OBGYN Provider 01/01/23 documented as of this encounter
--- OUTSIDE RECORDS SUMMARY | 2023-10-22 23:53 | XMS_ITS | Encounter Summary ---
Author Name Unknown Organization [place] Address [address] [facility] [place] [address] Care Team Providers Care Project Control Officer Name Role Phone Abbey Bagley PA-C Unavailable [phone] Abbey Bagley PA-C Primary Care Provider Kelley Diane DO Unavailable [phone] Reason for Referral * Diagnostic Imaging Ultrasound (Routine) - Pending Review Specialty Diagnoses / Procedures Referred By Bernardo belle Referred To Contact Radiology. Diagnoses care in second trimester Procedures US OB >14 Weeks Follow Up Ino Robbins MD [address] [place] [address] Referral ID Status Reason Start Date Expiration Date V isits Requested Visits Authorized [id number] Pending Review 12/14/2022 12/14/2023 1 1 ET CLERK Encounter Details Date Type Department Care Team (Late st Contact Info) Description 12/14/2022 Orders Only [facility] Women's [facility] [address] [place] [phone] Ino Robbins MD [address] [place] [address] care in second trimester (Primary Dx) Social History Tobacco Use Types Packs/Day Years Used Date Smoking Tobacco: Some Days Cigarettes 0.3 Smokeless Tobacco: Never Alcohol Use Standard Drinks/Week Comments Not Currently 0 (1 standard drink = 0.6 oz pur e alcohol) Seldom PHQ-2 Answer Date Recorded PHQ-2 Score 2 11/26/2022 [place] Depression Scale Answer Date Recorded [place] Depression Score 13 03/10/2021 Last EPDS Self [...] Coronavirus/COVID-19? No / Unsure 12/13/2022 10:57 AM DOCKET CLERK documented as of this encounter Plan of [...] from the original result was not included. [facility] ULTRASOUND - OB FOLLOW UP > [...] Start Date End Date Abbey Bagley PA-C [employer] [address] [place] [address] PCP - General Physician Information Developer 08/15/20 Abbey Bagley PA-C [employer] [address] [place] [address] Physician Information Developer 04/11/20 05/02/23 [place] [address] [place] [address] Assigned OBGYN Provider 12/04/22 documented as of this encounter
--- OUTSIDE RECORDS SUMMARY | 2023-10-22 23:53 | XMS_ITS | Encounter Summary ---
Author Name Unknown Organization [place] Address [address] [place] [address] Care Team Providers Care Rotary Surface Grinder Name Role Phone Abbey Bagley PA-C Unavailable [phone] Abbey Bagley PA-C Primary Care Provider + [phone] Kelley Diane DO Unavailable [phone] Encounter Details Date Type Department Care Team (Latest Contact Info) Description 12/24/2022 Travel Social History Tobacco Use Types Packs/Day Years Used Date Smoking Tobacco: Some Days Cigarettes 0.3 Smokeless Tobacco: Never Alcohol Use Standard Drinks/Week Comments Not Currently 0 (1 standard drink = 0.6 oz pur e alcohol) Seldom PHQ-2 Answer Date Recorded PHQ-2 Score 2 11/26/2022 [place] Depression Scale Answer Date Recorded [place] Depression Score 13 03/10/2021 Last EPDS Self [...] documented as of this encounter Care Teams Rotary Surface Grinder Relationship Specialty Start Date End Date Abbey Bagley PA-C [employer] [address] [facility] [address] [place] [address] PCP - General Physician Records Management Engineer 08/15/20 Abbey Bagley PA-C [employer] [place] [address] [place] [address] Physician Records Management Engineer 04/11/20 05/02/23 [place] [address] [place] [address] Assigned OBGYN Provider 12/04/22 documented as of this encounter
--- OUTSIDE RECORDS SUMMARY | 2023-10-22 23:53 | XMS_ITS | Encounter Summary ---
Author Name Unknown Organization [place] Address [address] [facility] [place] [address] Care Team Providers Care Ssis Architect Name Role Phone Abbey Bagley PA-C Unavailable [phone] Abbey Bagley PA-C Primary Care Provider + [phone] Pawel Guardado MD Unavailable + [phone] Reason for Referral * Diagnostic Imaging Ultrasound (Routine) - Pending Review Specialty Diagnoses / Procedures Referred By Bernardo belle Referred To Contact Radiology. Diagnoses related condition, antepartum Procedures [facility] US Comprehensive Single Pawel Guardado MD [address] [place] [address] Referral ID Status Reason Start Date Expiration Date V isits Requested Visits Authorized [id number] Pending Review 01/19/2023 01/19/2024 1 1 Encounter Details Date Type Department Care Team (Late st Contact Info) Description 01/19/2023 Transcribe Orders [facility] [place] [address] [place] [address] Pawel Guardado MD [address] [place] [address] related condition, antepartum (Primary Dx) Social History Tobacco Use Types Packs/Day Years Used Date Smoking Tobacco: Some Days Cigarettes 0.3 Smokeless Tobacco: Never Alcohol Use Standard Drinks/Week Comments Not Currently 0 (1 standard drink = 0.6 oz pur e alcohol) Seldom PHQ-2 Answer Date Recorded PHQ-2 Score 2 11/26/2022 [place] Depression Scale Answer Date Recorded [place] Depression Score 13 03/10/2021 Last EPDS Self [...] documented as of this encounter Results * [facility] Comprehensive Single (01/25/2023 11:28 AM [...] JACK Study Date: 01/25/2023 10:19am Pat. NO: [id number] Referring ??: PAWEL GUARDADO Site: [facility] Butter Fat Tester: Arthur Herman RDMS : 2000 Age: 22 [...] lb 13 ? oz EFW by ?Hadlock ([id number]) Head / Face / Neck Biometry: Sanforizing Machine Operator ? 7.7 ? mm CM ?6.9 ? [...] vena cava. Inferior vena cava. 3-vessel view. 9-bgefeg-lxrqqyi view. ? Cardiac position. Cardiac size. Cardiac [...] Pat. Name:Loki JACK Date:01/25/2023 10:19am Pat. NO: [id number] MD:PAWEL GUARDADO Site:Abrahamgrapher:Arthur Herman RDMS :2000Age:22 ----- [...] 1 lb 13 oz EFW by Hadlock ([id number]) Head / Face / Neck Biometry: Sanforizing Machine Operator 7.7 mm CM 6.9 mm ANATOMY ----- The following structures appear normal: Head / Neck Cranium. Head size. Head shape.Lateral ventricles. Choroid plexus. Midline falx. Cavum septi pellucidi.Cerebellum. Cisterna magna. Parenchyma. Thalami. Vermis. Neck. Face Lips. Heart / Thorax RVOT view. LVOT view. Situs. Aorticarch view. Bicaval view. Superior vena cava. Inferior vena cava. 3-vesselview. 2-eygdsg-gfmmwtk view. Cardiac position. Cardiac size.Cardiac rhythm. Diaphragm. [...] normal for gestational age. Pawel Guardado MD [facility] ORD RADHA documented in this encounter Visit Diagnoses Diagnosis related condition, antepartum- Primary related condition, antepartum documented in this encounter Additional Health Concerns Assessment Noted Time PHQ-9 Depression Total Score: 19 05/14/2 021 3:52 PM CDT documented as of this encounter Care Teams Ssis Architect Relationship Specialty Start Date End Date Abbey Bagley PA-C [employer] [place] [phone] [address] PCP - General Physician Teaching Artist 08/15/20 Abbey Bagley PA-C [facility] [address] [address] Physician Teaching Artist 04/11/20 05/02/23 Pawel Guardado MD [address] [place] [address] Assigned OBGYN Provider 01/01/23 documented as of this encounter
--- OUTSIDE RECORDS SUMMARY | 2023-10-22 23:53 | XMS_ITS | Encounter Summary ---
Author Name Unknown Organization [place] Address [address] [place] [address] Care Team Providers Care Forensic Toxicologist Name Role Phone Abbey Bagley PA-C Unavailable [phone] Abbey Bagley PA-C Primary Care Provider + [phone] Ino Robbins MD Unavailable + [phone] Reason for Visit * Reason Comments Ultrasound L2-LVOT not well see n Encounter Details Date Type Department Care Team (Late st Contact Info) Description 01/19/2023 PRE VISIT [facility] [place] [address] [facility] [address] [place] [address] Michelle Avina RN Ultrasound (L2-LVOT not well seen) Social History Tobacco Use Types Packs/Day Years Used Date Smoking Tobacco: Some Days Cigarettes 0.3 Smokeless Tobacco: Never Alcohol Use Standard Drinks/Week Comments Not Currently 0 (1 standard drink = 0.6 oz pur e alcohol) Seldom PHQ-2 Answer Date Recorded PHQ-2 Score 2 11/26/2022 [place] Depression Scale Answer Date Recorded [place] Depression Score 13 03/10/2021 Last EPDS Self [...] documented as of this encounter Care Teams Forensic Toxicologist Relationship Specialty Start Date End Date Abbey Bagley PA-C [employer] [address] [facility] [address] [place] [address] PCP - General Physician Manager Inventory 08/15/20 Abbey Bagley PA-C [employer] [place] [address] [place] [address] Physician Manager Inventory 04/11/20 05/02/23 Ino Robbins MD [address] [place] [address] Assigned OBGYN Provider 01/01/23 documented as of this encounter
--- OUTSIDE RECORDS SUMMARY | 2023-10-22 23:53 | XMS_ITS | Encounter Summary ---
Author Name Unknown Organization [place] Address [facility] [place] [address] Care Team Providers Care Blood Bank Order Control Clerk Name Role Phone Abbey Bagley PA-C Unavailable [phone] Abbey Bagley PA-C Primary Care Provider + [phone] Ino Robbins MD Unavailable [phone] Reason for Referral * Consultation (Routine) - Pending Review Specialty Diagnoses / Procedures Referred By Bernardo belle Referred To Contact Diagnoses care in second trimester Ino Robbins MD [address] [place] [address] [facility] [address] [place] [address] Referral ID Status Reason Start Date Expiration Date V isits Requested Visits Authorized [id number] Pending Review 01/19/2023 01/19/2024 1 1 Question Answer Preferred Location: [facility] [place] 05/06/2023 Ultrasound Comprehensive US (>than 18 [...] where they were done to arrange for pickle maker prior to your scheduled appointment. Any new CT, MRI or other procedures ordered by your specialist must be performed at a [facility] or coordinated by your clinic's referral office. >> List of current medications >> This referral request >> Any documents/labs given to you for this referral Reason for Visit * Reason Comments Care Encounter Details Date Type Department Care Team (Late st Contact Info) Description 01/19/2023 1:30 PM CDT Office Visit [facility] [address] [place] [phone] Ino Robbins MD [address] [place] [address] HSV (herpes simplex virus) infection (Primary Dx); [...] Answer Date Recorded PHQ-2 Score 2 11/26/2022 [place] Depression Scale Answer Date Recorded [place] Depression Score 13 03/10/2021 Last EPDS Self [...] Body Mass Index 32.36 11/04/2022 3:15 PM CUSTOMER ASSISTANCE ASSOCIATE documented in this encounter Progress Notes * Ino Robbins MD - 01/19/2023 1:30 PM CDT 22yo at 24w5d. Was planning to relocate to [place] but found housing conditions filthy. Ants,mold, etc. [...] with ??? Care 24w5d Moving back from [place] initial BP 114/74 Wt 93.7 kg (206 [...] performed by multiplexed, qualitative PCR using the Glaxstar Enteric Pathogens Nucleic Acid Test. Results should [...] 2. Ino Robbins MD LAB - MICRO [facility] ORDERABLES Performing Organization Address City/[facility]/ZIP Co de Phone Number [facility] Inf. Diseases Diag. Lab [address] [facility], [address] [address], [facility] [phone] * Ova and Parasite Exam Routine (01/19/2023 2:50 PM CDT) [facility] OVA AND PARASITE EXAM Negative Negative [facility] 01/20/2023 2:49 PM CDT [facility] Comment:A single negative sp ecimen does not rule out parasitic infection. Stool RECTAL CONTENTS / Unknown Non-blood Collection / Unknown 01/19/2023 2:50 PM CDT 01/19/2023 3:33 PM CDT Narrative [facility] - 01/20/2023 2:49 PM CDT Cryptosporidium, Cyclospora and Microsporidia are not readily detected by this method. Ino Robbins MD LAB - MICRO Mult[employer] ORDERABLES [facility] Inf. Diseases Diag. Lab [address] [facility], [address] [address] [phone] * (ABNORMAL) Wet prep - Clinic Collect [...] - MICRO GE NERAL ORDERABLES RI LABORATORY [facility] [address] [facility], [address] [place] [address]R[place] [phone] documented in this encounter Visit Diagnoses Diagnosis HSV (herpes simplex virus) infection- Primary Herpes simplex without mention of complication Current mild episode of major depressive disorder, unspecified whether recurrent (H24) care in second trimester documented in this encounter Additional Health Concerns Assessment Noted Time PHQ-9 Depression Total Score: 19 08/2 021 3:52 PM CDT documented as of this encounter Care Teams Blood Bank Order Control Clerk Relationship Specialty Start Date End Date Abbey Bagley PA-C [employer] [address] [address] PCP - General Physician Radiation Oncologist 08/15/20 Abbey Bagley PA-C [employer] [address] [address] Physician Radiation Oncologist 04/11/20 05/02/23 Ino Robbins MD [address] [address] Assigned OBGYN Provider 01/01/23 documented as of this encounter
--- OUTSIDE RECORDS SUMMARY | 2023-10-22 23:53 | XMS_ITS | Encounter Summary ---
Author Name Unknown Organization [place] Address [facility] [place] [address] Care Team Providers Care Manufacturing Systems Engineer Name Role Phone Abbey Bagley PA-C Unavailable [phone] Abbey Bagley PA-C Primary Care Provider + [phone] Ino Robbins MD Unavailable + [phone] Encounter Details Date Type Department Care Team (Latest Contact Info) Description 01/19/2023 Travel Social History Tobacco Use Types Packs/Day Years Used Date Smoking Tobacco: Some Days Cigarettes 0.3 Smokeless Tobacco: Never Alcohol Use Standard Drinks/Week Comments Not Currently 0 (1 standard drink = 0.6 oz pur e alcohol) Seldom PHQ-2 Answer Date Recorded PHQ-2 Score 2 11/26/2022 [place] Depression Scale Answer Date Recorded [place] Depression Score 13 03/10/2021 Last EPDS Self [...] documented as of this encounter Care Teams Manufacturing Systems Engineer Relationship Specialty Start Date End Date Abbey Bagley PA-C [employer] [address] [facility] [address] [place] [address] PCP - General Physician Threading Machine Feeder Automatic 08/15/20 Abbey Bagley PA-C [employer] [address] [facility] [address] [place] [address] Physician Threading Machine Feeder Automatic 04/11/20 05/02/23 Ino Robbins MD [address] [place] [address] Assigned OBGYN Provider 01/01/23 documented as of this encounter
--- OUTSIDE RECORDS SUMMARY | 2023-10-22 23:53 | XMS_ITS | Encounter Summary ---
Author Name Unknown Organization [place] Address [address] [place] [address] Care Team Providers Care Gunstock Spray Unit Adjuster Name Role Phone Abbey Bagley PA-C Unavailable [phone] Abbey Bagley PA-C Primary Care Provider + [phone] Kelley Diane DO Unavailable [phone] Encounter Details Date Type Department Care Team (Latest Contact Info) Description 12/12/2022 Travel Social History Tobacco Use Types Packs/Day Years Used Date Smoking Tobacco: Some Days Cigarettes 0.3 Smokeless Tobacco: Never Alcohol Use Standard Drinks/Week Comments Not Currently 0 (1 standard drink = 0.6 oz pur e alcohol) Seldom PHQ-2 Answer Date Recorded PHQ-2 Score 2 11/26/2022 [place] Depression Scale Answer Date Recorded [place] Depression Score 13 03/10/2021 Last EPDS Self [...] Coronavirus/COVID-19? No / Unsure 12/12/2022 12:48 PM TELECOM FIELD TECHNICIAN documented as of this encounter Plan of Treatment Not on file documented as of this encounter Visit Diagnoses Not on filedocumented in this encounter Additional Health Concerns Assessment Noted Time PHQ-9 Depression Total Score: 19 021 3:52 PM CDT documented as of this encounter Care Teams Gunstock Spray Unit Adjuster Relationship Specialty Start Date End Date Abbey Bagley PA-C [employer] [address] [facility] [address] [place] [address] PCP - General Physician Pick Up Driver 08/15/20 Abbey Bagley PA-C [employer] [place] [address] [place] [address] Physician Pick Up Driver 04/11/20 05/02/23 [place] [address] [place] [address] Assigned OBGYN Provider 12/04/22 documented as of this encounter
--- OUTSIDE RECORDS SUMMARY | 2023-10-22 23:53 | XMS_ITS | Encounter Summary ---
Author Name Unknown Organization [place] Address [address] [place] [address] Care Team Providers Care Edge Sawyer Name Role Phone Abbey Bagley PA-C Unavailable [phone] Abbey Bagley PA-C Primary Care Provider + [phone] Kelley Diane DO Unavailable [phone] Encounter Details Date Type Department Care Team (Latest Contact Info) Description 12/30/2022 Travel Social History Tobacco Use Types Packs/Day Years Used Date Smoking Tobacco: Some Days Cigarettes 0.3 Smokeless Tobacco: Never Alcohol Use Standard Drinks/Week Comments Not Currently 0 (1 standard drink = 0.6 oz pur e alcohol) Seldom PHQ-2 Answer Date Recorded PHQ-2 Score 2 11/26/2022 [place] Depression Scale Answer Date Recorded [place] Depression Score 13 03/10/2021 Last EPDS Self [...] documented as of this encounter Care Teams Edge Sawyer Relationship Specialty Start Date End Date Abbey Bagley PA-C [employer] [address] [facility] [address] [place] [address] PCP - General Physician Software Quality Assurance Specialist 08/15/20 Abbey Bagley PA-C [employer] [place] [address] [place] [address] Physician Software Quality Assurance Specialist 04/11/20 05/02/23 [place] [address] [place] [address] Assigned OBGYN Provider 12/04/22 documented as of this encounter
--- OUTSIDE RECORDS SUMMARY | 2023-10-22 23:53 | XMS_ITS | Encounter Summary ---
Author Name Unknown Organization [place] Address [address] [place] [address] Care Team Providers Care Medical Professionals Name Role Phone Abbey Bagley PA-C Unavailable [phone] Abbey Bagley PA-C Primary Care Provider + [phone] Kelley Diane DO Unavailable [phone] Encounter Details Date Type Department Care Team (Latest Contact Info) Description 12/13/2022 Travel Social History Tobacco Use Types Packs/Day Years Used Date Smoking Tobacco: Some Days Cigarettes 0.3 Smokeless Tobacco: Never Alcohol Use Standard Drinks/Week Comments Not Currently 0 (1 standard drink = 0.6 oz pur e alcohol) Seldom PHQ-2 Answer Date Recorded PHQ-2 Score 2 11/26/2022 [place] Depression Scale Answer Date Recorded [place] Depression Score 13 03/10/2021 Last EPDS Self [...] Coronavirus/COVID-19? No / Unsure 12/13/2022 10:57 AM MANUFACTURING DEVELOPMENT ENGINEER documented as of this encounter Plan of Treatment Not on file documented as of this encounter Visit Diagnoses Not on filedocumented in this encounter Additional Health Concerns Assessment Noted Time PHQ-9 Depression Total Score: 19 021 3:52 PM CDT documented as of this encounter Care Teams Medical Professionals Relationship Specialty Start Date End Date Abbey Bagley PA-C [employer] [address] [facility] [address] [place] [address] PCP - General Physician Inorganic Chemistry Teacher 08/15/20 Abbey Bagley PA-C [employer] [place] [address] [facility] [address] [place] [address] Physician Inorganic Chemistry Teacher 04/11/20 05/02/23 [place] [address] [place] [address] Assigned OBGYN Provider 12/04/22 documented as of this encounter
--- OUTSIDE RECORDS SUMMARY | 2023-10-22 23:53 | XMS_ITS | Encounter Summary ---
Author Name Unknown Organization [place] Address [address] [place] [address] Care Team Providers Care Manager Transport Name Role Phone Abbey Bagley PA-C Unavailable [phone] Abbey Bagley PA-C Primary Care Provider + [phone] Pawel Guardado MD Unavailable + [phone] Reason for Referral * Diagnostic Imaging Ultrasound (Routine) - Pending Review Specialty Diagnoses / Procedures Referred By Bernardo t Referred To Contact Radiology. Diagnoses related condition, antepartum Procedures [facility] US Pawel Forte MD [address] [place] [address] Referral ID Status Reason Start Date Expiration Date V isits Requested Visits Authorized [id number] Pending Review 01/19/2023 01/19/2024 1 1 Reason for Visit * Diagnostic Imaging Ultrasound (Routine) - Pending Review Specialty Diagnoses / Procedures Referred By Contac t Referred To Contact Radiology. Diagnoses related condition, antepartum Procedures [facility] US Pawel Forte MD [address] [place] [address] Referral ID Status Reason Start Date Expiration Date V isits Requested Visits Authorized [id number] Pending Review 01/19/2023 01/19/2024 1 1 Encounter Details Date Type Department Care Team (Late st Contact Info) Description 01/25/2023 10:11 AM CDT - 01/25/2023 11:59 PM CDT Hospital Encounter [facility] M[facility] Medicine [facility] [place] [address] [facility] [address] [place] [address] Pawel Guardado MD [address] [place] [address] Camden Flores MD [address] [place] [address] [address] [place] [address] related condition, antepartum Discharge Disposition: Home or Self Care Social History Tobacco Use Types Packs/Day Years Used Date Smoking Tobacco: Some Days Cigarettes 0.3 Smokeless Tobacco: Never Alcohol Use Standard Drinks/Week Comments Not Currently 0 (1 standard drink = 0.6 oz pur e alcohol) Seldom PHQ-2 Answer Date Recorded PHQ-2 Score 2 11/26/2022 [place] Depression Scale Answer Date Recorded [place] Depression Score 13 03/10/2021 Last EPDS Self [...] Procedure Name Priority Date/Time Associated Diagnosis Comments [facility] COMPREHENSIVE SINGLE Routine 01/25/2023 11:28 AM CDT related condition, antepartum documented in this encounter Results * [facility] Comprehensive Single (01/25/2023 11:28 AM CDT) [...] JACK Study Date: 01/25/2023 10:19am Pat. NO: [id number] Referring ??MD: APWEL GUARADDO Site: [facility] Digital Learning Platforms Manager: Arthur Herman RDMS : 2000 Age: 22 [...] lb 13 ? oz EFW by ?Hadlock ([id number]) Head / Face / Neck Biometry: Director Hair ? 7.7 ? mm CM ?6.9 ? [...] vena cava. Inferior vena cava. 3-vessel view. 2-trsyyy-ydonxbb view. ? Cardiac position. Cardiac size. Cardiac [...] Pat. Name:Loki JACK Date:01/25/2023 10:19am Pat. NO: [id number] MD:PAWEL GUARDADO Site:Ulisesonographer:Arthur Herman RDMS :2000Age:22 ----- [...] 1 lb 13 oz EFW by Hadlock ([id number]) Head / Face / Neck Biometry: Director Hair 7.7 mm CM 6.9 mm ANATOMY ----- The following structures appear normal: Head / Neck Cranium. Head size. Head shape.Lateral ventricles. Choroid plexus. Midline falx. Cavum septi pellucidi.Cerebellum. Cisterna magna. Parenchyma. Thalami. Vermis. Neck. Face Lips. Heart / Thorax RVOT view. LVOT view. Situs. Aorticarch view. Bicaval view. Superior vena cava. Inferior vena cava. 3-vesselview. 4-udpyzb-weqvxen view. Cardiac position. Cardiac size.Cardiac rhythm. Diaphragm. [...] normal for gestational age. Pawel Guardado MD [facility] ORD ERABLES documented in this encounter Visit Diagnoses Diagnosis related condition, antepartum documented in this encounter Additional Health Concerns Assessment Noted Time PHQ-9 Depression Total Score: 19 021 3:52 PM CDT documented as of this encounter Care Teams Manager Transport Relationship Specialty Start Date End Date Abbey Bagley PA-C [employer] [address] [place] [address] [place] [address] PCP - General Physician Manager Style 08/15/20 Abbey Bagley PA-C [facility] [address] [address] Physician Manager Style 04/11/20 05/02/23 Pawel Guardado MD [address] [place] [address] Assigned OBGYN Provider 01/01/23 documented as of this encounter
--- OUTSIDE RECORDS SUMMARY | 2023-10-22 23:53 | XMS_ITS | Encounter Summary ---
Author Name Unknown Organization [place] Address [address] [facility] [place] [address] Care Team Providers Care Deblocker Name Role Phone Abbey Bagley PA-C Unavailable [phone] Abbey Bagley PA-C Primary Care Provider [phone] Kelley Diane DO Unavailable [phone] Ino Robbins MD Unavailable Encounter Details Date Type Department Care Team (Late st Contact Info) Description 12/07/2022 [facility] Medical Advice [facility] [address] [place] [address] Diana Rainey RN Social History Tobacco Use Types Packs/Day Years Used Date Smoking Tobacco: Some Days Cigarettes 0.3 Smokeless Tobacco: Never Alcohol Use Standard Drinks/Week Comments Not Currently 0 (1 standard drink = 0.6 oz pur e alcohol) Seldom PHQ-2 Answer Date Recorded PHQ-2 Score 2 11/26/2022 [place] Depression Scale Answer Date Recorded [place] Depression Score 13 03/10/2021 Last EPDS Self [...] Coronavirus/COVID-19? No / Unsure 11/26/2022 1:26 PM DIAZO TECHNICIAN documented as of this encounter Plan of Treatment Not on file documented as of this encounter Visit Diagnoses Not on filedocumented in this encounter Additional Health Concerns Assessment Noted Time PHQ-9 Depression Total Score: 19 021 3:52 PM CDT documented as of this encounter Care Teams Deblocker Relationship Specialty Start Date End Date Abbey Bagley PA-C [employer] [address] [facility] [address] [place] [address] PCP - General Physician Pony Ride Operator 08/15/20 Abbey Bagley PA-C [employer] [place] [address] [place] [address] Physician Pony Ride Operator 04/11/20 05/02/23 [place] [address] [place] [address] Assigned OBGYN Provider 12/04/22 Ino Robbins MD [address] [place] [address] Assigned OBGYN Provider 01/01/23 documented as of this encounter
--- OUTSIDE RECORDS SUMMARY | 2023-10-22 23:53 | XMS_ITS | Encounter Summary ---
Author Name Unknown Organization [place] Address [address] [facility] [place] [address] Care Team Providers Care Simulation Engineer Name Role Phone Abbey Bagley PA-C Unavailable [phone] Abbey Bagley PA-C Primary Care Provider [phone] Kelley Diane DO Unavailable [phone] Reason for Visit * Reason Comments Care Encounter Details Date Type Department Care Team (Late st Contact Info) Description 12/24/2022 1:30 PM CDT Office Visit [address] [place] [address] Ino Robbins MD [address] [place] [address] care in second trimester (Primary Dx) Social History Tobacco Use Types Packs/Day Years Used Date Smoking Tobacco: Some Days Cigarettes 0.3 Smokeless Tobacco: Never Tobacco Cessation:Ready to Q uit: Not Asked; Counseling Given: Not Answered Alcohol Use Standard Drinks/Week Comments Not Currently 0 (1 standard drink = 0.6 oz pur e alcohol) Seldom PHQ-2 Answer Date Recorded PHQ-2 Score 2 11/26/2022 [place] Depression Scale Answer Date Recorded [place] Depression Score 13 03/10/2021 Last EPDS Self [...] Body Mass Index 31.48 11/04/2022 3:15 PM PROFESSOR OF FLORICULTURE documented in this encounter Progress Notes * Ino Robbins MD - 12/24/2022 1:30 PM CDT 22yo at 21w0d. Relocating to [place] at the end of the month. Has [...] documented as of this encounter Care Teams Simulation Engineer Relationship Specialty Start Date End Date Abbey Bagley PA-C [facility] [address] [address] PCP - General Physician [employer] 08/15/20 Abbey Bagley PA-C [facility] [address] [facility] [address] [place] [address] Physician Fisher [employer] 04/11/20 05/02/23 [place] [address] [place] [address] Assigned OBGYN Provider 12/04/22 documented as of this encounter
--- OUTSIDE RECORDS SUMMARY | 2023-10-22 23:53 | XMS_ITS | Encounter Summary ---
Author Name Unknown Organization [place] Address [address] [place] [address] Care Team Providers Care Software Computer Specialist Name Role Phone Abbey Bagley PA-C Unavailable [phone] Abbey Bagley PA-C Primary Care Provider Reason for Visit * Reason Comments Care New visit 1 7 weeks 0 days Labs & G/C due U/S 11/04 & 12/13/2022 Encounter Details Date Type Department Care Team (Latest Contact Info) Description 11/26/2022 1:30 PM TRUST OPERATIONS ASSISTANT Office Visit [facility] [place] [address] [facility] [address] [place] [address] [place] [address] [place] [address] Screen for STD (sexually transmitted disease) (Primary [...] Answer Date Recorded PHQ-2 Score 2 11/26/2022 [place] Depression Scale Answer Date Recorded [place] Depression Score 13 03/10/2021 Last EPDS Self [...] Coronavirus/COVID-19? No / Unsure 11/26/2022 1:26 PM TRUST OPERATIONS ASSISTANT documented as of this encounter Last Filed Vital Signs Vital Sign Reading Time Taken Comments Blood Pressure 92/64 11/26/2022 1:32 PM TRUST OPERATIONS ASSISTANT Pulse - - Temperature - - Respiratory Rate - - Oxygen Saturation - - Inhaled Oxygen Concentration - - Weight 89.9 kg (198 lb 4.8 oz) 11/26/2022 1:32 P M TRUST OPERATIONS ASSISTANT Height - - Body Mass Index 31.06 11/04/2022 3:15 PM TRUST OPERATIONS ASSISTANT documented in this encounter Patient Instructions * Patient Instructions* Kelley Diane, - 11/26/2022 1:30 PM TRUST OPERATIONS ASSISTANT Labs today Return 4 weeks Return to clinic: every 4 weeks till 28 weeks, then every 2 weeks till 36 weeks, then weekly till delivery Phone numbers [place]: Day/ night [phone] ask for ob triage Emergency: Call labor and delivery: [phone] What should I call about?? Contraction every [...] mother is at rest and focused on [facility] Address Luigi Norman [facility], [place] [address] Dr. Kelley Diane DO SOUND EDITOR [facility] T OPERATIONS ASSISTANT documented in this encounter Progress Notes * [...] no PERSONAL HISTORY Exercise Habits: normal Employment: [employer] Her job involves no activity with no [...] or equivalent Occupational History ??? 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 Smoking status: Some Days [...] GENITALIA: BUS WNL, no lesions noted VAGINA: [place], normal rugae and discharge normal and physiologic, [...] Return: [address] Kelley Diane DO SOUND EDITOR [facility] T OPERATIONS ASSISTANT documented in this encounter Nursing Notes * Dada, Kristyn M, OUTSOLE CUTTER MACHINE - 11/26/2022 1:30 PM CST Chief Complaint [...] Garland CMA on 11/26/2022 at 1:35 PM T OPERATIONS ASSISTANT documented in this encounter Plan of Treatment Scheduled Orders Name Type Priority Associated Diagnoses Orde r Schedule NEISSERIA GONORRHOEA PCR Microbiology Routine Screen for STD (sexually transmitted disease) Ordered: 11/26/2022 documented as of this encounter Procedures Procedure Name Priority Date/Time Associated Diagnosis Comments URINE CULTURE Routine 11/26/2022 2:37 PM TRUST OPERATIONS ASSISTANT Encounter for supervision of other normal in second trimester TYPE AND SCREEN, ADULT Routine 11/26/2022 2:16 PM TRUST OPERATIONS ASSISTANT Encounter for supervision of other normal in second trimester RUBELLA ANTIBODY IGG Routine 11/26/2022 2:16 PM TRUST OPERATIONS ASSISTANT Encounter for supervision of other normal in second trimester HIV ANTIGEN ANTIBODY COMBO Routine 11/26/2022 2:16 PM TRUST OPERATIONS ASSISTANT Encounter for supervision of other normal in second trimester TREPONEMA ABS W REFLEX TO RPR AND TITER Routine 11/26/2022 2:16 PM TRUST OPERATIONS ASSISTANT Encounter for supervision of other normal in second trimester HEPATITIS C ANTIBODY Routine 11/26/2022 2:16 PM TRUST OPERATIONS ASSISTANT Encounter for supervision of other normal in second trimester HEPATITIS B SURFACE ANTIGEN Routine 11/26/2022 2:16 PM TRUST OPERATIONS ASSISTANT Encounter for supervision of other normal in second trimester ABO/RH TYPE AND SCREEN Routine 11/26/2022 2:16 PM TRUST OPERATIONS ASSISTANT Encounter for supervision of other normal in second trimester CHLAMYDIA TRACHOMATIS PCR Routine 11/26/2022 1:42 PM TRUST OPERATIONS ASSISTANT Screen for STD (sexually transmitted disease) documented in this encounter Results * Urine Culture Aerobic Bacterial (11/26/2022 2:37 PM TRUST OPERATIONS ASSISTANT) Culture 10,000-50,000 CFU/mL Mixture of urogenital chely RHIANNA 11/28/2022 10:50 AM TRUST OPERATIONS ASSISTANT [facility] Urine MID-STREAM URINE SPECIMEN / Unknown Non-blood Collection / Unknown 11/26/2022 2:37 PM TRUST OPERATIONS ASSISTANT 11/26/2022 2:37 PM TRUST OPERATIONS ASSISTANT Kelley Diane DO LAB - MICRO GENER AL ORDERABLES [facility] Inf. Diseases Diag. Lab [address] [facility], [address] [place] [address], [facility] [phone] * Adult Type and Screen (11/26/2022 2:16 PM TRUST OPERATIONS ASSISTANT) ABO/RH(D) A POS 11/25/2022 6:00 PM TRUST OPERATIONS ASSISTANT RH BLOOD BANK Antibody Screen Negative Negative 11/25/2022 6:00 PM TRUST OPERATIONS ASSISTANT RH BLOOD BANK SPECIMEN EXPIRATION DATE [id number] 11/25/2022 6:00 PM TRUST OPERATIONS ASSISTANT RH BLOOD BANK Blood BLOOD SPECIMEN / Unknown Venipuncture / Unknown 11/26/2022 2:16 PM TRUST OPERATIONS ASSISTANT 11/26/2022 2:27 PM TRUST OPERATIONS ASSISTANT Kelley Diane DO LAB - BLOOD BANK TEST ORDER BLOOD [place] [address] * Hepatitis C antibody (11/26/2022 2:16 PM TRUST OPERATIONS ASSISTANT) Hepatitis C Antibody Nonreactive Nonreactive 11/27/2022 2:46 PM TRUST OPERATIONS ASSISTANT [facility] SPECIALTY CORE/PROT/EN DO Blood BLOOD SPECIMEN / Unknown Venipuncture / Unknown 11/26/2022 2:16 PM TRUST OPERATIONS ASSISTANT 11/26/2022 2:28 PM TRUST OPERATIONS ASSISTANT Narrative UM SPECIALTY CORE/PROT/ENDO - 11/27/2022 2:46 PM TRUST OPERATIONS ASSISTANT Assay performance characteristics have not been established for newborns, infants, and children. Kelley Diane DO LAB - BLOOD ORDER BROOKE Performing Organization Address City/[facility]/ZIP Co de Phone Number SPECIALTY CORE/PROT/ENDO Specialty Core/Prot/Endo [address] [facility], [address] [phone] * Treponema Abs w Reflex to RPR and Titer (11/26/2022 2:16 PM TRUST OPERATIONS ASSISTANT) Pathologist [facility] Treponema Antibody Total Nonreactive Nonreactive 11/27/2022 10:22 AM TRUST OPERATIONS ASSISTANT SPECIALTY CORE/PROT/EN DO Blood BLOOD SPECIMEN / Unknown Venipuncture / Unknown 11/26/2022 2:16 PM TRUST OPERATIONS ASSISTANT 11/26/2022 2:28 PM TRUST OPERATIONS ASSISTANT Kelley Castro [employer] [facility] LAB - BLOOD ORDER BROOKE SPECIALTY CORE/PROT/ENDO Specialty Core/Prot/Endo [address] [facility], [address] [phone] * Rubella Antibody IgG Quantitative (11/26/2022 2:16 PM TRUST OPERATIONS ASSISTANT) Rubella Isabelle IgG Instrument Value 3.93 <0.90 Index 11/29/2022 12:01 PM TRUST OPERATIONS ASSISTANT [facility] SPECIALTY CORE/PROT/END O Rubella Antibody IgG Positive 11/29/2022 12:01 PM TRUST OPERATIONS ASSISTANT SPECIALTY CORE/PROT/END O Comment:Suggests previous ex posure or immunization and probable immunity. Blood BLOOD SPECIMEN / Unknown Venipuncture / Unknown 11/26/2022 2:16 PM TRUST OPERATIONS ASSISTANT 11/26/2022 2:27 PM TRUST OPERATIONS ASSISTANT Kelley Diane DO LAB - BLOOD ORDER BROOKE UM SPECIALTY CORE/PROT/ENDO UM Specialty Core/Prot/Endo [address] [facility], [address] [phone] * HIV Antigen Antibody Combo (11/26/2022 2:16 PM TRUST OPERATIONS ASSISTANT) HIV Antigen Antibody Combo Nonreactive Nonreactive 11/27/2022 2:46 PM TRUST OPERATIONS ASSISTANT SPECIALTY CORE/PROT/EN DO Comment:HIV-1 p24 Ag & HIV-1 /HIV-2 Ab Not Detected Blood BLOOD SPECIMEN / Unknown Venipuncture / Unknown 11/26/2022 2:16 PM TRUST OPERATIONS ASSISTANT 11/26/2022 2:28 PM TRUST OPERATIONS ASSISTANT Kelley Diane DO LAB - BLOOD ORDER BROOKE UM SPECIALTY CORE/PROT/ENDO Specialty Core/Prot/Endo [address] [facility], [address] [phone] * Hepatitis B surface antigen (11/26/2022 2:16 PM TRUST OPERATIONS ASSISTANT) Hepatitis B Surface Antigen Nonreactive Nonreactive 11/27/2022 2:46 PM TRUST OPERATIONS ASSISTANT SPECIALTY CORE/PROT/EN DO Blood BLOOD SPECIMEN / Unknown Venipuncture / Unknown 11/26/2022 2:16 PM TRUST OPERATIONS ASSISTANT 11/26/2022 2:28 PM TRUST OPERATIONS ASSISTANT Kelley Diane DO LAB - BLOOD ORDER BROOKE SPECIALTY CORE/PROT/ENDO Specialty Core/Prot/Endo [address] [facility], [address] [place] [address], [facility] [phone] * CHLAMYDIA TRACHOMATIS PCR (11/26/2022 1:42 PM TRUST OPERATIONS ASSISTANT) Chlamydia trachomatis Negative Negative 11/27/2022 12:55 PM TRUST OPERATIONS ASSISTANT [facility] Comment:A negative result by general road production manager mediated amplification does not preclude the presence of C. trachomatis infection because results are dependent on proper and adequate collection, absence of inhibitors and sufficient rRNA to be detected. Swab CERVIX UTERI STRUCTURE / Unknown Non-blood Collection / Unknown 11/26/2022 1:42 PM TRUST OPERATIONS ASSISTANT 11/26/2022 3:02 PM TRUST OPERATIONS ASSISTANT Kelley Diane DO LAB - MICRO GENER AL ORDERABLES [facility] Inf. Diseases Diag. Lab [address] [facility], [address] [place] [address], [facility] [phone] documented in this encounter Visit Diagnoses Diagnosis Screen for STD (sexually transmitted disease)- Primary Screening examination for venereal disease care in second trimester Encounter for supervision of other normal in second trimester documented in this encounter Additional Health Concerns Assessment Noted Time PHQ-9 Depression Total Score: 19 08/05/2 021 3:52 PM CDT documented as of this encounter Care Teams Software Computer Specialist Relationship Specialty Start Date End Date Abbey Bagley PA-C [employer] [address] [id number] PCP - General Physician Supervisor [employer] 08/15/20 Abbey Bagley PA-C [employer] [place] [address] [id number] Physician Supervisor [employer] 04/11/20 05/02/23 documented as of this encounter
--- OUTSIDE RECORDS SUMMARY | 2023-10-22 23:53 | XMS_ITS | Encounter Summary ---
Author Name Unknown Organization [place] Address [address] [place] [address] Care Team Providers Care Addictions Counselor Assistant Name Role Phone Abbey Bagley PA-C Unavailable Abbey Bagley PA-C Primary Care Provider [phone] Kelley Diane DO Unavailable [phone] Reason for Visit * Diagnostic Imaging Ultrasound (Routine) - Pending Review Specialty Diagnoses / Procedures Referred By Bernardo belle Referred To Contact Radiology. Diagnoses Encounter for supervision of other normal in second trimester Procedures US OB > 14 Weeks Ino Robbins MD [address] [place] [address] Referral ID Status Reason Start Date Expiration Date V isits Requested Visits Authorized [id number] Pending Review 11/23/2022 11/23/2023 1 1 Encounter Details Date Type Department Care Team (Late st Contact Info) Description 12/13/2022 11:00 AM SAT TUTOR Ancillary Procedure [facility] [address] [facility] [address] [place] [phone] Ino Robbins MD [address] [place] [address] Encounter for supervision of other normal in second trimester Social History Tobacco Use Types Packs/Day Years Used Date Smoking Tobacco: Some Days Cigarettes 0.3 Smokeless Tobacco: Never Alcohol Use Standard Drinks/Week Comments Not Currently 0 (1 standard drink = 0.6 oz pur e alcohol) Seldom PHQ-2 Answer Date Recorded PHQ-2 Score 2 11/26/2022 [place] Depression Scale Answer Date Recorded [place] Depression Score 13 03/10/2021 Last EPDS Self [...] Coronavirus/COVID-19? No / Unsure 12/13/2022 10:57 AM SAT TUTOR documented as of this encounter Plan of Treatment Not on file documented as of this encounter Procedures Procedure Name Priority Date/Time Associated Diagnosis Comments US OB > 14 WEEKS Routine 12/13/2022 11:5 0 AM SAT TUTOR Encounter for supervision of other normal in second trimester documented in this encounter Results * US OB > 14 Weeks (12/13/2022 11:50 AM SAT TUTOR) Anatomical Region Laterality Modality Abdomen/Pelvis Ultrasound Narrative 12/13/2022 1:08 PM SAT TUTOR Table formatting from the original result was not included. [facility] Obstetrics and Gynecology ?? ULTRASOUND [...] Godwin Latham MD FACOG Obstetrics and Gynecology [facility] Ino Robbins MD IMG US ORDERAB LES documented in this encounter Visit Diagnoses Diagnosis Encounter for supervision of other normal in second trimester documented in this encounter Additional Health Concerns Assessment Noted Time PHQ-9 Depression Total Score: 19 021 3:52 PM CDT documented as of this encounter Care Teams Addictions Counselor Assistant Relationship Specialty Start Date End Date Abbey Bagley PA-C [employer] [address] [address] PCP - General Physician Cutter Operator [employer] 08/15/20 Abbey Bagley PA-C [employer] [address] [facility] [address] [place] [address] Physician Cutter Operator [employer] 04/11/20 05/02/23 [place] [address] [place] [address] Assigned OBGYN Provider 12/04/22 documented as of this encounter
--- OUTSIDE RECORDS SUMMARY | 2023-10-22 23:53 | XMS_ITS | Encounter Summary ---
Author Name Unknown Organization [place] Address [facility] [place] [address] Care Team Providers Care Television Specialist Name Role Phone Abbey Bagley PA-C Unavailable [phone] Abbey Bagley PA-C Primary Care Provider [phone] Ino Robbins MD Unavailable + [phone] Encounter Details Date Type Department Care Team (Latest Contact Info) Description 01/25/2023 Travel Social History Tobacco Use Types Packs/Day Years Used Date Smoking Tobacco: Some Days Cigarettes 0.3 Smokeless Tobacco: Never Alcohol Use Standard Drinks/Week Comments Not Currently 0 (1 standard drink = 0.6 oz pur e alcohol) Seldom PHQ-2 Answer Date Recorded PHQ-2 Score 2 11/26/2022 [place] Depression Scale Answer Date Recorded [place] Depression Score 13 03/10/2021 Last EPDS Self [...] documented as of this encounter Care Teams Television Specialist Relationship Specialty Start Date End Date Abbey Bagley PA-C [employer] [address] [facility] [address] [place] [address] PCP - General Physician Plans Examiner 08/15/20 Abbey Bagley PA-C [employer] [address] [facility] [address] [place] [address] Physician Plans Examiner 04/11/20 05/02/23 Ino Robbins MD [address] [place] [address] Assigned OBGYN Provider 01/01/23 documented as of this encounter
--- OUTSIDE RECORDS SUMMARY | 2023-10-22 23:53 | XMS_ITS | Encounter Summary ---
Author Name Unknown Organization [place] Address [address] [place] [address] Care Team Providers Care Multimedia Project Manager Name Role Phone Abbey Bagley PA-C Unavailable [phone] Abbey Bagley PA-C Primary Care Provider [phone] Kelley Diane DO Unavailable [phone] Reason for Visit * Diagnostic Imaging Ultrasound (Routine) - Pending Review Specialty Diagnoses / Procedures Referred By Bernardo belle Referred To Contact Radiology. Diagnoses care in second trimester Procedures US OB >14 Weeks Follow Up Ino Robbins MD [address] [place] [address] Referral ID Status Reason Start Date Expiration Date V isits Requested Visits Authorized [id number] Pending Review 12/14/2022 12/14/2023 1 1 Encounter Details Date Type Department Care Team (Late st Contact Info) Description 12/30/2022 3:40 PM CDT Ancillary Procedure [address] [phone] Ino Robbins MD [address] [place] [address] care in second trimester Social History Tobacco Use Types Packs/Day Years Used Date Smoking Tobacco: Some Days Cigarettes 0.3 Smokeless Tobacco: Never Alcohol Use Standard Drinks/Week Comments Not Currently 0 (1 standard drink = 0.6 oz pur e alcohol) Seldom PHQ-2 Answer Date Recorded PHQ-2 Score 2 11/26/2022 [place] Depression Scale Answer Date Recorded [place] Depression Score 13 03/10/2021 Last EPDS Self [...] from the original result was not included. [facility] ULTRASOUND - OB FOLLOW UP > 14 Weeks - Transabdominal ?? Referring Provider: Ino Robbins MD ?? INDICATIONS FOR ULTRASOUND: OB History: Present Conditions: Follow-up spine, heart, outflow tracts ?? CLINICAL INFORMATION ?? LMP: Jul 31 ??- sure EDC: May 01 ?EGA: 21w 6d Ino Robbins MD [facility] ORDERAB LES documented in this encounter Visit Diagnoses Diagnosis care in second trimester documented in this encounter Additional Health Concerns Assessment Noted Time PHQ-9 Depression Total Score: 19 05/14/ 021 3:52 PM CDT documented as of this encounter Care Teams Multimedia Project Manager Relationship Specialty Start Date End Date Abbey Bagley PA-C [employer] [address] [address] PCP - General Physician Ip Architect 08/15/20 Abbey Bagley PA-C [employer] [address] [facility] [address] [place] [address] Physician Ip Architect 04/11/20 05/02/23 [place] [address] [place] [address] Assigned OBGYN Provider 12/04/22 documented as of this encounter
--- OUTSIDE RECORDS SUMMARY | 2023-10-22 23:53 | XMS_ITS | Encounter Summary ---
Author Name Unknown Organization [place] Address [address] [facility] [place] [address] Care Team Providers Care Sled Maker Name Role Phone Abbey Bagley PA-C Unavailable [phone] Abbey Bagley PA-C Primary Care Provider [phone] Ino Robbins MD Unavailable [phone] Reason for Visit * Reason Comments Ultrasound L2-LVOT not well see n on outside scan Encounter Details Date Type Department Care Team (Late st Contact Info) Description 01/25/2023 10:45 AM CDT Office Visit [facility] [place] [address] [facility] [address] [place] [address] Ino Robbins MD [address] [place], [place] [address] Camden Flores MD [address] [place] [address] Suspected anomaly, antepartum, single or unspecified fetus (Primary Dx); Encounter for follow-up ultrasound of anatomy Social History Tobacco Use Types Packs/Day Years Used Date Smoking Tobacco: Some Days Cigarettes 0.3 Smokeless Tobacco: Never Alcohol Use Standard Drinks/Week Comments Not Currently 0 (1 standard drink = 0.6 oz pur e alcohol) Seldom PHQ-2 Answer Date Recorded PHQ-2 Score 2 11/26/2022 [place] Depression Scale Answer Date Recorded [place] Depression Score 13 03/10/2021 Last EPDS Self [...] for details of today's US at the [facility]. Camden Flores MD Maternal- Medicine documented in this encounter Plan of Treatment Not on file documented as of this encounter Visit Diagnoses Diagnosis Suspected anomaly, antepartum, single or unspecified fetus- Primary Encounter for follow-up ultrasound of anatomy documented in this encounter Additional Health Concerns Assessment Noted Time PHQ-9 Depression Total Score: 19 021 3:52 PM CDT documented as of this encounter Care Teams Sled Maker Relationship Specialty Start Date End Date Abbey Bagley PA-C [facility] [place] [address] [address] PCP - General Physician Fitting Room Maintenance Mechanic 08/15/20 Abbey Bagley PA-C [facility] [place] [address] [place] [address] Physician Fitting Room Maintenance Mechanic 04/11/20 05/02/23 Ino Robbins MD [address] [place] [address] Assigned OBGYN Provider 01/01/23 documented as of this encounter
--- OUTSIDE RECORDS SUMMARY | 2023-10-22 23:53 | XMS_ITS | Encounter Summary ---
Author Name Unknown Organization [place] Address [address] [place] [address] Care Team Providers Care Commercial Loan Manager Name Role Phone Abbey Bagley PA-C Unavailable [phone] Abbey Bagley PA-C Primary Care Provider [phone] Encounter Details Date Type Department Care Team (Latest Contact Info) Description 11/26/2022 Travel Social History Tobacco Use Types Packs/Day Years Used Date Smoking Tobacco: Some Days Cigarettes 0.3 Smokeless Tobacco: Never Alcohol Use Standard Drinks/Week Comments Not Currently 0 (1 standard drink = 0.6 oz pur e alcohol) Seldom PHQ-2 Answer Date Recorded PHQ-2 Score 2 11/26/2022 [place] Depression Scale Answer Date Recorded [place] Depression Score 13 03/10/2021 Last EPDS Self [...] Coronavirus/COVID-19? No / Unsure 11/26/2022 1:26 PM BORING MILL OPERATOR documented as of this encounter Plan of Treatment Not on file documented as of this encounter Visit Diagnoses Not on filedocumented in this encounter Additional Health Concerns Assessment Noted Time PHQ-9 Depression Total Score: 19 021 3:52 PM CDT documented as of this encounter Care Teams Commercial Loan Manager Relationship Specialty Start Date End Date Abbey Bagley PA-C [employer] [address] [place] [address] PCP - General Physician Professor Of Physical Education 08/15/20 Abbey Bagley PA-C [employer] [place] [address] [place] [address] Physician Professor Of Physical Education 04/11/20 05/02/23 documented as of this encounter
--- OUTSIDE RECORDS SUMMARY | 2023-10-22 23:54 | XMS_ITS | Encounter Summary ---
Author Name Unknown Organization [facility] Address [address] [facility] [place] [address] Care Team Providers Care Cnc Specialist Name Role Phone Abbey Bagley PA-C Unavailable [phone] Abbey Bagley PA-C Primary Care Provider Ino Robbins MD Unavailable Azul Gilman DO Unavailable [phone] Kelley Diane DO Unavailable Ino Robbins MD Unavailable Encounter Details Date Type Department Care Team (Late st Contact Info) Description 04/07/2021 MyC Medical Advice [facility] [address] [place] [id number] Ino Robbins MD [address] [place], [place] [id number] Social History Tobacco Use Types Packs/Day Years Used Date Smoking Tobacco: Every Day Cigarettes 0.3 Smokeless Tobacco: Never Alcohol Use Standard Drinks/Week Comments Not Currently 0 (1 standard drink = 0.6 oz pur e alcohol) Seldom PHQ-2 Answer Date Recorded PHQ-2 Score 6 02/19/2021 [place] Depression Scale Answer Date Recorded [place] Depression Score 13 03/10/2021 Last EPDS Self [...] documented as of this encounter Care Teams Cnc Specialist Relationship Specialty Start Date End Date Abbey Bagley PA-C EPIS [address] [address] PCP - General Physician Fitter Type Bar And Segment 08/15/20 Abbey Bagley PA-C EPIS [address] [address] Physician Fitter Type Bar And Segment 04/11/20 05/02/23 Ino Robbins MD [address] [place] [address] Assigned OBGYN Provider 03/08/21 Azul Gilman DO [address] [place] [address] Assigned Heart and Vascular Provider 03/08/21 09/10/22 [place] [address] [place] [address] Assigned OBGYN Provider 12/04/22 Ino Robbins MD [address] [place] [address] Assigned OBGYN Provider 01/01/23 documented as of this encounter
--- OUTSIDE RECORDS SUMMARY | 2023-10-22 23:54 | XMS_ITS | Encounter Summary ---
Author Name Unknown Organization [facility] Address [address] [place] [address] Care Team Providers Care Clerical Methods Analyst Name Role Phone Abbey Bagley PA-C Unavailable [phone] Abbey Bagley PA-C Primary Care Provider Kelley Diane DO Unavailable [phone] Ino Robbins MD Unavailable Encounter Details Date Type Department Care Team (Late st Contact Info) Description 11/22/2022 MyC Medical Advice [address] [place] [phone] Di Sher RN Social History Tobacco Use Types Packs/Day Years Used Date Smoking Tobacco: Every Day Cigarettes 0.3 Smokeless Tobacco: Never Alcohol Use Standard Drinks/Week Comments Not Currently 0 (1 standard drink = 0.6 oz pur e alcohol) Seldom PHQ-2 Answer Date Recorded PHQ-2 Score 2 11/26/2022 [place] Depression Scale Answer Date Recorded [place] Depression Score 13 03/10/2021 Last EPDS Self [...] Coronavirus/COVID-19? No / Unsure 11/17/2022 6:32 PM SALES TRAINING REPRESENTATIVE documented as of this encounter Plan of Treatment Not on file documented as of this encounter Visit Diagnoses Not on filedocumented in this encounter Additional Health Concerns Assessment Noted Time PHQ-9 Depression Total Score: 19 021 3:52 PM CDT documented as of this encounter Care Teams Clerical Methods Analyst Relationship Specialty Start Date End Date Abbey Bagley PA-C [employer] [address] [address] PCP - General Physician Bleach Machine Operator 08/15/20 Abbey Bagley PA-C Sus[employer] BANERJEE [address] [facility] [address] [place] [address] Physician Bleach Machine Operator 04/11/20 05/02/23 [place] [address] [place] [address] Assigned OBGYN Provider 12/04/22 Ino Robbins MD [address] [place] [address] Assigned OBGYN Provider 01/01/23 documented as of this encounter
--- OUTSIDE RECORDS SUMMARY | 2023-10-22 23:54 | XMS_ITS | Encounter Summary ---
Author Name Unknown Organization [facility] Address [address] [place] [address] Care Team Providers Care Manager Pet Name Role Phone Abbey Bagley PA-C Unavailable [phone] Abbey Bagley PA-C Primary Care Provider + [phone] Ino Robbins MD Unavailable + [phone] Encounter Details Date Type Department Care Team (Latest Contact Info) Description 11/04/2022 Travel Social History Tobacco Use Types Packs/Day Years Used Date Smoking Tobacco: Every Day Cigarettes 0.3 Smokeless Tobacco: Never Alcohol Use Standard Drinks/Week Comments Not Currently 0 (1 standard drink = 0.6 oz pur e alcohol) Seldom PHQ-2 Answer Date Recorded PHQ-2 Score 4 05/14/2021 [place] Depression Scale Answer Date Recorded [place] Depression Score 13 03/10/2021 Last EPDS Self [...] Coronavirus/COVID-19? No / Unsure 11/04/2022 3:04 PM MACHINE HEEL SEAT FITTER documented as of this encounter Plan of Treatment Not on file documented as of this encounter Visit Diagnoses Not on filedocumented in this encounter Additional Health Concerns Assessment Noted Time PHQ-9 Depression Total Score: 19 021 3:52 PM CDT documented as of this encounter Care Teams Manager Pet Relationship Specialty Start Date End Date Abbey Bagley PA-C Ordr[employer] [address] [place] [address] PCP - General Physician Jordan Worker 08/15/20 Abbey Bagley PA-C Ordr[employer] [address] [place] [address] Physician Jordan Worker 04/11/20 05/02/23 Ino Robbins MD [address] [place], [place] [address] Assigned OBGYN Provider 03/08/21 documented as of this encounter
--- OUTSIDE RECORDS SUMMARY | 2023-10-22 23:54 | XMS_ITS | Encounter Summary ---
Author Name Unknown Organization [place] Address [address] [place] [address] Care Team Providers Care Professor Of Music Name Role Phone Abbey Bagley PA-C Unavailable [phone] Abbey Bagley PA-C Primary Care Provider + [phone] Ino Robbins MD Unavailable + [phone] Encounter Details Date Type Department Care Team [...] points; Administer PHQ-9 if positive 2 11/17/2022 [place] Depression Scale Answer Date Recorded [place] Depression Score 13 03/10/2021 Last EPDS Self [...] Coronavirus/COVID-19? No / Unsure 11/17/2022 6:32 PM WELL DRILL OPERATOR HELPER CABLE TOOL documented as of this encounter Plan of Treatment Not on file documented as of this encounter Visit Diagnoses Not on filedocumented in this encounter Additional Health Concerns Assessment Noted Time PHQ-9 Depression Total Score: 19 021 3:52 PM CDT documented as of this encounter Care Teams Professor Of Music Relationship Specialty Start Date End Date Abbey Bagley PA-C [employer] [address] [address] PCP - General Physician Pediatric Speech Therapist 08/15/20 Abbey Bagley PA-C [employer] [address] [facility] [address] [place] [address] Physician Pediatric Speech Therapist 04/11/20 05/02/23 Ino Robbins MD [address] [place] [address] Assigned OBGYN Provider 03/08/21 documented as of this encounter
--- OUTSIDE RECORDS SUMMARY | 2023-10-22 23:54 | XMS_ITS | Encounter Summary ---
Author Name Unknown Organization [facility] Address [address] [place] [address] Care Team Providers Care Welder First Class Name Role Phone Abbey Bagley PA-C Unavailable Abbey Bagley PA-C Primary Care Provider Ino Robbins MD Unavailable Azul Gilman DO Unavailable [phone] Kelley Diane DO Unavailable Ino Robbins MD Unavailable Reason for Visit * Reason Onset Date Comments Refill Request 04/02/2021 Encounter Details Date Type Department Care Team (Late st Contact Info) Description 04/02/2021 MyC Refill Initial Department Abbey Bagley PA-C [facility] [address] [address] Refill Request Social History Tobacco Use Types Packs/Day Years Used Date Smoking Tobacco: Every Day Cigarettes 0.3 Smokeless Tobacco: Never Alcohol Use Standard Drinks/Week Comments Not Currently 0 (1 standard drink = 0.6 oz pur e alcohol) Seldom PHQ-2 Answer Date Recorded PHQ-2 Score 6 02/19/2021 [place] Depression Scale Answer Date Recorded [place] Depression Score 13 03/10/2021 Last EPDS Self [...] documented as of this encounter Care Teams Welder First Class Relationship Specialty Start Date End Date Abbey Bagley PA-C [employer]ingi[employer] [address] [address] PCP - General Physician Cylinder Die Machine Helper 08/15/20 Abbey Bagley PA-C [employer] BANERJEE [address] [facility] [address] [place] [address] Physician Cylinder Die Machine Helper 04/11/20 05/02/23 Ino Robbins MD [address] [place], [place] [address] Assigned OBGYN Provider 03/08/21 Azul Gilman DO [address] [place] [address] Assigned Heart and Vascular Provider 03/08/21 09/10/22 [place] [address] [place] [address] Assigned OBGYN Provider 12/04/22 Ino Robbins MD [address] [place] [address] Assigned OBGYN Provider 01/01/23 documented as of this encounter
--- OUTSIDE RECORDS SUMMARY | 2023-10-22 23:54 | XMS_ITS | Encounter Summary ---
Author Name Unknown Organization [place] Address [address] [facility] [place] [address] Care Team Providers Care Loss Prevention Leader Name Role Phone Abbey Bagley PA-C Unavailable [phone] Abbey Bagley PA-C Primary Care Provider Kelley Diane DO Unavailable [phone] Ino Robbins MD Unavailable [phone] Encounter Details Date Type Department Care Team (Late st Contact Info) Description 11/23/2022 MyC Medical Advice [address] [place] [phone] Di Sher RN Social History Tobacco Use Types Packs/Day Years Used Date Smoking Tobacco: Some Days Cigarettes 0.3 Smokeless Tobacco: Never Alcohol Use Standard Drinks/Week Comments Not Currently 0 (1 standard drink = 0.6 oz pur e alcohol) Seldom PHQ-2 Answer Date Recorded PHQ-2 Score 2 11/26/2022 [place] Depression Scale Answer Date Recorded [place] Depression Score 13 03/10/2021 Last EPDS Self [...] Coronavirus/COVID-19? No / Unsure 11/26/2022 1:26 PM ACTUARIAL ASSISTANT documented as of this encounter Plan of Treatment Not on file documented as of this encounter Visit Diagnoses Not on filedocumented in this encounter Additional Health Concerns Assessment Noted Time PHQ-9 Depression Total Score: 19 021 3:52 PM CDT documented as of this encounter Care Teams Loss Prevention Leader Relationship Specialty Start Date End Date Abbey Bagley PA-C [employer] [address] [facility] [address] [place] [address] PCP - General Physician Active Directory Systems Administrator 08/15/20 Abbey Bagley PA-C [employer] BANERJEE [address] [facility] [address] [place] [address] Physician Active Directory Systems Administrator 04/11/20 05/02/23 [place] [address] [place] [address] Assigned OBGYN Provider 12/04/22 Ino Robbnis MD [address] [place] [address] Assigned OBGYN Provider 01/01/23 documented as of this encounter
--- OUTSIDE RECORDS SUMMARY | 2023-10-22 23:54 | XMS_ITS | Encounter Summary ---
Author Name Unknown Organization [place] Address [address] [facility] [place] [address] Care Team Providers Care Home Sales Consultant Name Role Phone Abbey Bagley PA-C Unavailable [phone] Abbey Bagley PA-C Primary Care Provider [phone] Reason for Referral * Diagnostic Imaging Ultrasound (Routine) - Pending Review Specialty Diagnoses / Procedures Referred By Bernardo t Referred To Contact Radiology. Diagnoses Encounter for supervision of other normal in second trimester Procedures US OB > 14 Weeks Ino Robbins MD [address] [place] [address] Referral ID Status Reason Start Date Expiration Date V isits Requested Visits Authorized [id number] Pending Review 11/23/2022 11/23/2023 1 1 RDS AND TAPE RECORDINGS ENGINEER Reason for Visit * Reason Comments Care New Nurse Doyle villalobos Visit Encounter Details Date Type Department Care Team (Latest Contact Info) Description 11/23/2022 2:15 PM RECORDS AND TAPE RECORDINGS ENGINEER Office Visit [address] [place] [address] Encounter for supervision of other [...] Answer Date Recorded PHQ-2 Score 2 11/23/2022 [place] Depression Scale Answer Date Recorded [place] Depression Score 13 03/10/2021 Last EPDS Self [...] Coronavirus/COVID-19? No / Unsure 11/17/2022 6:32 PM RECORDS AND TAPE RECORDINGS ENGINEER documented as of this encounter Progress Notes [...] to this ?: No Di Sher RN RDS AND TAPE RECORDINGS ENGINEER documented in this encounter Plan of Treatment Not on file documented as of this encounter Results * US OB > 14 Weeks (12/13/2022 11:50 AM RECORDS AND TAPE RECORDINGS ENGINEER) Anatomical Region Laterality Modality Abdomen/Pelvis Ultrasound Narrative 12/13/2022 1:08 PM RECORDS AND TAPE RECORDINGS ENGINEER Table formatting from the original result was not included. [facility] Obstetrics and Gynecology ?? ULTRASOUND - [...] Godwin Latham MD FACOG Obstetrics and Gynecology [facility] Ino Robbins MD [facility] US ORDERAB LES * Urine Culture Aerobic Bacterial (11/26/2022 2:37 PM RECORDS AND TAPE RECORDINGS ENGINEER) Culture 10,000-50,000 CFU/mL Mixture of urogenital chely RHIANNA 11/28/2022 10:50 AM RECORDS AND TAPE RECORDINGS ENGINEER [facility] Urine MID-STREAM URINE SPECIMEN / Unknown Non-blood Collection / Unknown 11/26/2022 2:37 PM RECORDS AND TAPE RECORDINGS ENGINEER 11/26/2022 2:37 PM RECORDS AND TAPE RECORDINGS ENGINEER Kelley Diane DO LAB - MICRO GENER AL ORDERABLES [facility] Inf. Diseases Diag. Lab [address] [facility], [address] [place] [address], [facility] [phone] * Hepatitis C antibody (11/26/2022 2:16 PM RECORDS AND TAPE RECORDINGS ENGINEER) Hepatitis C Antibody Nonreactive Nonreactive 11/27/2022 2:46 PM RECORDS AND TAPE RECORDINGS ENGINEER SPECIALTY CORE/PROT/EN DO Blood BLOOD SPECIMEN / Unknown Venipuncture / Unknown 11/26/2022 2:16 PM RECORDS AND TAPE RECORDINGS ENGINEER 11/26/2022 2:28 PM RECORDS AND TAPE RECORDINGS ENGINEER Narrative SPECIALTY CORE/PROT/ENDO - 11/27/2022 2:46 PM RECORDS AND TAPE RECORDINGS ENGINEER Assay performance characteristics have not been established for newborns, infants, and children. Kelley Diane DO LAB - BLOOD ORDER BROOKE SPECIALTY CORE/PROT/ENDO Specialty Core/Prot/Endo [address] [facility], [address] [place] [address], [facility] [phone] * Treponema Abs w Reflex to RPR and Titer (11/26/2022 2:16 PM RECORDS AND TAPE RECORDINGS ENGINEER) Treponema Antibody Total Nonreactive Nonreactive 11/27/2022 10:22 AM RECORDS AND TAPE RECORDINGS ENGINEER SPECIALTY CORE/PROT/EN DO Blood BLOOD SPECIMEN / Unknown Venipuncture / Unknown 11/26/2022 2:16 PM RECORDS AND TAPE RECORDINGS ENGINEER 11/26/2022 2:28 PM RECORDS AND TAPE RECORDINGS ENGINEER Kelley Diane DO LAB - BLOOD ORDER BROOKE UM SPECIALTY CORE/PROT/ENDO UM Specialty Core/Prot/Endo [address] [facility] [address], [address] [place] [address], [facility] [phone] * Rubella Antibody IgG Quantitative (11/26/2022 2:16 PM RECORDS AND TAPE RECORDINGS ENGINEER) Rubella Isabelle IgG Instrument Value 3.93 <0.90 Index 11/29/2022 12:01 PM RECORDS AND TAPE RECORDINGS ENGINEER UM SPECIALTY CORE/PROT/END O Rubella Antibody IgG Positive 11/29/2022 12:01 PM RECORDS AND TAPE RECORDINGS ENGINEER SPECIALTY CORE/PROT/END O Comment:Suggests previous ex posure or immunization and probable immunity. Blood BLOOD SPECIMEN / Unknown Venipuncture / Unknown 11/26/2022 2:16 PM RECORDS AND TAPE RECORDINGS ENGINEER 11/26/2022 2:27 PM RECORDS AND TAPE RECORDINGS ENGINEER Kelley Diane DO LAB - BLOOD ORDER BROOKE UM SPECIALTY CORE/PROT/ENDO UM Specialty Core/Prot/Endo [address] [facility] [address], [address] [place] [address], [facility] [phone] * HIV Antigen Antibody Combo (11/26/2022 2:16 PM RECORDS AND TAPE RECORDINGS ENGINEER) HIV Antigen Antibody Combo Nonreactive Nonreactive 11/27/2022 2:46 PM RECORDS AND TAPE RECORDINGS ENGINEER UM SPECIALTY CORE/PROT/EN DO Comment:HIV-1 p24 Ag & HIV-1 /HIV-2 Ab Not Detected Blood BLOOD SPECIMEN / Unknown Venipuncture / Unknown 11/26/2022 2:16 PM RECORDS AND TAPE RECORDINGS ENGINEER 11/26/2022 2:28 PM RECORDS AND TAPE RECORDINGS ENGINEER Kelley Diane DO LAB - BLOOD ORDER BROOKE UM SPECIALTY CORE/PROT/ENDO UM Specialty Core/Prot/Endo [address] [facility] [address], [address] [place] [address], [facility] [phone] * Hepatitis B surface antigen (11/26/2022 2:16 PM RECORDS AND TAPE RECORDINGS ENGINEER) Hepatitis B Surface Antigen Nonreactive Nonreactive 11/27/2022 2:46 PM RECORDS AND TAPE RECORDINGS ENGINEER UM SPECIALTY CORE/PROT/EN DO Blood BLOOD SPECIMEN / Unknown Venipuncture / Unknown 11/26/2022 2:16 PM RECORDS AND TAPE RECORDINGS ENGINEER 11/26/2022 2:28 PM RECORDS AND TAPE RECORDINGS ENGINEER Kelley Diane DO LAB - BLOOD ORDER BROOKE UM SPECIALTY CORE/PROT/ENDO UM Specialty Core/Prot/Endo [address] [facility] [address] [phone] documented in this encounter Visit Diagnoses Diagnosis Encounter for supervision of other normal in second trimester- Primary Encounter for supervision of other normal in second trimester documented in this encounter Additional Health Concerns Assessment Noted Time PHQ-9 Depression Total Score: 19 021 3:52 PM CDT documented as of this encounter Care Teams Home Sales Consultant Relationship Specialty Start Date End Date Abbey Bagley PA-C [employer] [address] [address] PCP - General Physician Transportation Associate 08/15/20 Abbey Bagley PA-C [employer] BANERJEE [address] [place] [address] Physician Transportation Associate 04/11/20 05/02/23 documented as of this encounter
--- OUTSIDE RECORDS SUMMARY | 2023-10-22 23:54 | XMS_ITS | Clinical Summary ---
Author Name Unknown Organization [employer] [facility] Address [place], [place] [address] Care Team Providers Care Subway Guard Name Role Phone Staff, Other Clinical Primary [...] Name Administration Dates Next Due COVID-19 vaccine (RisparmioSuper NTGenlot 30mcg/0.3mL) PF, MDV 2021 DTaP 05/23/2007, 7,08/27/2004,08/27,2002,2002 [id number] (Pediarix) 07/16/2004,07/16/2004 HIB PRP-OMP (PedvaxHIB) 07/16/2004 HIB [...] Austin Ledezma MD Complications: Intolera nce Delivery Location:[facility] (RH LABOR AND DELIVERY) 05/03 Term 39w [...] - Increase reliability General Yes Praful Orozco, ROPE CUTTER, DEAD MAIL CHECKER Note: Goal identified during: Initial Screening Status: [...] follow-up in two weeks to review her [facility] goals and get a status update on [...] 3:46 PM 08/18/2016 1:40 PM Care Teams Subway Guard Relationship Specialty Start Date End Date Staff, Other Clinical . PCP - General 06/05/23
--- OUTSIDE RECORDS SUMMARY | 2023-10-22 23:54 | XMS_ITS ---
Author Name Unknown Organization [facility] Address [address] [place] [address] Care Team Providers Care Shipwright Apprentice Name Role Phone Abbey Bagley PA-C Primary Care Provider + [phone] Ino Robbins MD Unavailable + [phone] Transitional Care Management Status:Closed (Closed) Start date:05/05/2023 End date:05/05/2023 Continued Care and Services Coordination
--- OUTSIDE RECORDS SUMMARY | 2023-10-22 23:54 | XMS_ITS | Encounter Summary ---
Author Name Unknown Organization [facility] Address [address] [place] [address] Care Team Providers Care Alarm Adjuster Name Role Phone Abbey Bagley PA-C Unavailable [phone] Abbey Bagley PA-C Primary Care Provider + [phone] Ino Robbins MD Unavailable [phone] Reason for Visit * Reason Comments Headache Abdominal Pain Back Pain Encounter Details Date Type Department Care Team (Late st Contact Info) Description 11/04/2022 5:28 PM MIXING PLANT OPERATOR - 11/04/2022 7:04 PM [facility] Emergency Dept [address] [place] [phone] Jillian Multani MD [facility] [address] [place], [place] [id number] Nonintractable headache, unspecified chronicity pattern, unspecified headache type; 14 weeks gestation of Discharge Disposition: Left Against Medical Advice Social History Tobacco Use Types Packs/Day Years Used Date Smoking Tobacco: Every Day Cigarettes 0.3 Smokeless Tobacco: Never Alcohol Use Standard Drinks/Week Comments Not Currently 0 (1 standard drink = 0.6 oz pur e alcohol) Seldom PHQ-2 Answer Date Recorded PHQ-2 Score 4 05/14/2021 [place] Depression Scale Answer Date Recorded [place] Depression Score 13 03/10/2021 Last EPDS Self [...] Coronavirus/COVID-19? No / Unsure 11/04/2022 3:04 PM MIXING PLANT OPERATOR documented as of this encounter Last Filed Vital Signs Vital Sign Reading Time Taken Comments Blood Pressure 115/79 11/04/2022 3:19 PM MIXING PLANT OPERATOR Pulse 83 11/04/2022 3:15 PM MIXING PLANT OPERATOR Temperature 36.6 ??C (97.8 ??F) 11/04/2022 3:15 PM CS T Respiratory Rate 16 11/04/2022 3:15 PM MIXING PLANT OPERATOR Oxygen Saturation 100% 11/04/2022 3:15 PM MIXING PLANT OPERATOR Inhaled Oxygen Concentration - - Weight 89.4 kg (197 lb) 11/04/2022 3:15 PM MIXING PLANT OPERATOR Height 170.2 cm (5' 7) 11/04/2022 3:15 PM MIXING PLANT OPERATOR Body Mass Index 30.85 11/04/2022 3:15 PM MIXING PLANT OPERATOR documented in this encounter Medications at Time [...] states she had to leave to go spanish moss picker child. Pt signed AMA paperwork after Dr. Multani went through risks of leaving. Pt was told to come back with any worsening symptoms. NG PLANT OPERATOR * Jacque Pitts RN - 11/04/2022 3:17 [...] WDL WDL Cognitive/Neuro/Behavioral WDL Cognitive/Neuro/Behavioral WDL WDL NG PLANT OPERATOR * Jillian Multani MD - 11/04/2022 3:04 [...] normal gait, negative romberg, no dysdiadochokinesia, normal [id number]-[id number] testing Appropriate interventions for symptom management were [...] EDC 05/04/2023. CRUZ PATE MD SYSTEM ID: [id number] I mental decision making 14 weeks. I recommended MRI brain and MRV brain to the patient to evaluate for mass bleeding and venous sinus thrombosis given . I recommended treatment with headache medications and fluids. Ultrasound result was discussed with the patient. At this time, she states that she must leave to [place] moss pick[place] her child and is not able to stay for further diagnostic testing. She understands that she is leaving AGAINST MEDICAL ADVICE but may return at any time for further evaluation. She understands that risk of missed intracranial pathology. Jillian Multani MD 11/04/22 1840 Jillian Multani MD 11/05/22 0214 NG PLANT OPERATOR documented in this encounter Plan of Treatment Not on file documented as of this encounter Procedures Procedure Name Priority Date/Time Associated Diagnosis Comments US OB < 14 WEEKS SINGLE-TRANSABDOMINAL STAT 11/04/2022 4:09 PM MIXING PLANT OPERATOR CBC WITH PLATELETS AND DIFFERENTIAL STAT 11/04/2022 3:22 PM MIXING PLANT OPERATOR CBC WITH PLATELETS & DIFFERENTIAL STAT 11/04/2022 3:22 PM MIXING PLANT OPERATOR HCG QUANTITATIVE STAT 11/04/2022 3:22 PM MIXING PLANT OPERATOR documented in this encounter Results * US OB < 14 Weeks Single (11/04/2022 4:09 PM MIXING PLANT OPERATOR) Anatomical Region Laterality Modality Abdomen/Pelvis Ultrasound Impressions 11/04/2022 7:34 PM MIXING PLANT OPERATOR IMPRESSION: Single living intrauterine gestation at 14 weeks 1 day, EDC 05/04/2023. [facility] PATE MD SYSTEM ID: [id number] Narrative 11/04/2022 7:34 PM MIXING PLANT OPERATOR US OB < 14 WEEKS SINGLE-TRANSABDOMINAL 11/04/2022 [...] EDC 05/04/2023. [facility] PATE MD SYSTEM ID: [id number] Wagner Moody MD IMG US ORDERABLES * (ABNORMAL) CBC with platelets and differential (11/04/2022 3:22 PM MIXING PLANT OPERATOR) WBC Count 9.2 4.0 - 11.0 10e3/uL 11/04/2022 5:49 PM MIXING PLANT OPERATOR [facility] RBC Count 5.16 3.80 - 5.20 10e6/uL 11/04/2022 5:49 PM MIXING PLANT OPERATOR [facility] Hemoglobin 13.2 11.7 - 15.7 g/dL 11/04/2022 5:49 PM MIXING PLANT OPERATOR [facility] Hematocrit 41.7 35.0 - 47.0 % 11/04/2022 5:49 PM MIXING PLANT OPERATOR [facility] MCV 81 78 - 100 fL 11/04/2022 5:49 PM MIXING PLANT OPERATOR [facility] MCH 25.6(L) 26.5 - 33.0 pg 11/04/2022 5:49 PM MIXING PLANT OPERATOR [facility] MCHC 31.7 31.5 - 36.5 g/dL 11/04/2022 5:49 PM MIXING PLANT OPERATOR [facility] RDW 15.4(H) 10.0 - 15.0 % 11/04/2022 5:49 PM MIXING PLANT OPERATOR [facility] Platelet Count 264 150 - 450 10e3/uL 11/04/2022 5:49 PM MIXING PLANT OPERATOR [facility] % Neutrophils 74 % 11/04/2022 5:49 PM MIXING PLANT OPERATOR [facility] % Lymphocytes 17 % 11/04/2022 5:49 PM MIXING PLANT OPERATOR [facility] % Monocytes 5 % 11/04/2022 5:49 PM MIXING PLANT OPERATOR [facility] % Eosinophils 3 % 11/04/2022 5:49 PM MIXING PLANT OPERATOR [facility] % Basophils 1 % 11/04/2022 5:49 PM MIXING PLANT OPERATOR [facility] % Immature Granulocytes 0 % 11/04/2022 5:49 PM MIXING PLANT OPERATOR [facility] NRBCs per 100 WBC 0 <1 /100 023 5:49 PM MIXING PLANT OPERATOR [facility] Absolute Neutrophils 6.8 1.6 - 8.3 10e3/uL 11/04/2022 5:49 PM MIXING PLANT OPERATOR [facility] Absolute Lymphocytes 1.5 0.8 - 5.3 10e3/uL 11/04/2022 5:49 PM MIXING PLANT OPERATOR [facility] Absolute Monocytes 0.5 0.0 - 1.3 10e3/uL 11/04/2022 5:49 PM MIXING PLANT OPERATOR [facility] Absolute Eosinophils 0.2 0.0 - 0.7 10e3/uL 11/04/2022 5:49 PM MIXING PLANT OPERATOR [facility] Absolute Basophils 0.1 0.0 - 0.2 10e3/uL 11/04/2022 5:49 PM MIXING PLANT OPERATOR [facility] Absolute Immature Granulocytes 0.0 <=0.4 10e3/uL 11/04/2022 5:49 PM MIXING PLANT OPERATOR [facility] Absolute NRBCs 0.0 10e3/uL 11/04/2022 5:49 PM MIXING PLANT OPERATOR [facility] Blood BLOOD SPECIMEN / Unknown Venipuncture / Unknown 11/04/2022 3:22 PM MIXING PLANT OPERATOR 11/04/2022 5:43 PM MIXING PLANT OPERATOR Jillian Multani MD LAB - BL OOD ORDERABLES [facility] Acute Care Lab [address] Lab (1st floor, no room number) [place] [address], [facility] [phone] * (ABNORMAL) HCG QUANTitative (blood) (11/04/2022 3:22 PM MIXING PLANT OPERATOR) [facility] hCG Quantitative 43,965(H) <5 mIU/mL 11/04/19 6:59 PM MIXING PLANT OPERATOR LABORATORY Comment: Adult: 0-5 mIU/mL for healthy non- person Neonates: Should be within normal ranges by 2 days after Blood BLOOD SPECIMEN / Unknown Venipuncture / Unknown 11/04/2022 3:22 PM MIXING PLANT OPERATOR 11/04/2022 5:43 PM MIXING PLANT OPERATOR Jillian Multani MD LAB - BL OOD ORDERABLES LABORATORY [facility] Acute Care Lab [address] [facility] Lab (1st floor, no room number) [place] [address], [facility] [phone] documented in this encounter Visit Diagnoses Diagnosis [...] Liquid not required. $Given 11/04/2022 3:33 PM MIXING PLANT OPERATOR 4 mg documented in this encounter Active and Recently Administered Medications Times are shown in MIXING PLANT OPERATOR. Scheduled Medication Order 11/02/2022 11/03/2022 11/04/2022 0.9% [...] documented as of this encounter Care Teams Alarm Adjuster Relationship Specialty Start Date End Date Abbey Bagley PA-C [employer] [id number] [address] PCP - General Physician Profiler Hand 08/15/20 Abbey Bagley PA-C [employer] [address] [facility] [address] [place] [address] Physician Profiler Hand 04/11/20 05/02/23 [place] [address] Assigned OBGYN Provider 03/08/21 documented as of this encounter
[2023-10-23 00:04] VITALS: BP 123/78; PULSE 95; RESP 20; TEMP 36.6; O2SAT 98
[2023-10-23 00:42] VITALS: BP 123/78; PULSE 95; RESP 20; TEMP 36.6
== END 2023-10-23 00:42 | disposition home or self-care (01) ==
PROVIDERS: Emergency Provider Family Medicine; PCP Nurse Practitioner Family
DX: R11.10 Vomiting, unspecified (principal); R19.7 Diarrhea, unspecified; R55 Syncope and collapse
CPT/HCPCS: 36415; 80053; 83690; 85025; 86140; 96374; 99283; 99284; J2405; J7030

== ENCOUNTER 2023-11-03 05:47 | Emergency (ER) | payer MEDICAID, SELFPAY ==
[2023-11-03 05:57] VITALS: BP 147/87; PULSE 100; RESP 24; TEMP 36.5; O2SAT 100; BMI 30.5
--- NOTE | 2023-11-03 06:28 | ED.GENADULT ---
HPI - General Adult General Chief complaint: Unspecified Complaint, Adult Stated complaint: Chest pain Time Seen by Provider: 11/03/23 06:15 Source: patient Mode of arrival: ambulatory Limitations: no limitations History of Present Illness HPI narrative: 23-year-old female with history of panic disorder presents the emergency department for evaluation of chest pain for the past 12-13 hours. And pain started during/after working out, which is a new routine for her. Pain originally started in the left lower lateral ribs but now is more in the left lateral superior anterior chest radiating into the axilla and also in the left scapular area. She feels like her heart is racing. She tried taking Ativan 0.5 mg tablet which she has her panic attacks shortly after the pain started and then again a few hours later with no improvement in her symptoms. She reports that the Ativan ?always works for her? otherwise. He says that this chest pain does feel different than her typical panic attacks. She reports typically she only uses the Ativan 2-3 times per month for anxiety. She takes no other long-term medications. Denies any drugs or alcohol that could have contributed. Pain is worse with sudden movements. Can be somewhat reproducible. His not accompanied by any severe shortness of breath, fevers, productive cough. Denies a prior history of heart issues but reports that she was told that she had a heart murmur when she was . She never had an echo to follow up on this because she delivered her baby early. No history of congenital heart disease. Does not take any anticoagulants. No history of DVT or PE. No trauma or injury. Reports that she takes no long-term medications and has no chronic medical issues. Her medical records indicate bilateral salpingectomy. Does endorse anxiety. P.r.n. use of Ativan. ROS notable for the cardiovascular and musculoskeletal symptoms as described above, otherwise denies times 12 systems. Related Data Home Medications Medication Instructions Recorded Confirmed valacyclovir 500 mg tablet 500 mg PO DAILY 05/10/23 11/03/23 (Valtrex) ascorbic acid (vitamin C) 1,000 mg 1 g PO Q6H 06/28/23 11/03/23 tablet ferrous sulfate 325 mg (65 mg 325 mg PO QDAY 06/28/23 11/03/23 iron) tablet (Iron (ferrous sulfate)) lorazepam 1 mg tablet 1 mg PO DAILY PRN 09/28/23 11/03/23 Previous Rx's Medication Instructions Recorded albuterol sulfate 90 mcg/actuation 2 puff inhalation Q4-6H PRN 08/30/23 aerosol inhaler shortness of breath or wheezing #8.5 grams acetaminophen 500 mg tablet 1,000 mg (2 x 500 mg) PO Q6H PRN 09/15/23 Pain #0 tabs Allergies Allergy/AdvReac Type Severity Reaction Status Date / Time tea tree Allergy Mild Verified 11/03/23 05:57 adhesive Allergy Rash Verified 11/03/23 05:57 lamotrigine [From Lamictal] Allergy Verified 11/03/23 05:57 PFSH PFSH Medical History PTSD (post-traumatic stress disorder) ?F43.10 - Post-traumatic stress disorder, unspecified (ICD-10) Palpitations ?R00.2 - Palpitations (ICD-10) Hypertension ?I10 - Essential (primary) hypertension (ICD-10) Eclampsia ?O15.9 - Eclampsia, unspecified as to time period (ICD-10) Anxiety, generalized ?F41.1 - Generalized anxiety disorder (ICD-10) Migraines ?G43.909 - Migraine, unspecified, not intractable, without status migrainosus (ICD-10) Seizure ?R56.9 - Unspecified convulsions (ICD-10) Family History Maternal Grandfather Heart disease Father Depression Anxiety Alcohol dependence Drug dependence Paternal Grandmother Anxiety Depression Mother Anxiety Depression Diabetes Alcohol dependence Drug dependence Maternal Grandmother Preeclampsia Paternal Grandfather Anxiety Depression Alcohol dependence Eczema Social History Narrative: . 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 The patient vapes. No alcohol. No illicit drug use. What is your current living situation?: I presently have a place to live Problems where you live: no known problems In the past 12 months, utilities in danger of being shut off: no In past 12 months, lack of transportation kept you from medical appts, meetings, work, or getting things needed for daily living: no In the past 12 mos, have been you worried that your food would run out before you had money to buy more?: never true In the past 12 mos, the food you bought just didn't last and you didn't have money to buy more?: never true Smoking Status: Current every day smoker What tobacco products do you use: cigarettes Do you use any of these nicotine containing products: None Second hand tobacco smoke exposure: Yes How often do you have a drink containing alcohol: never How often do you have six or more drinks on one occasion: Never AUDIT-C Alcohol total score: 0 Non-prescribed substance use: denies use Caffeine: Yes How often does anyone, including family, friends and others, physically hurt you: never How often does anyone, including family, friends and others, insult or talk down to you: never How often does anyone, including family, friends and others, threaten you with harm: never How often does anyone, including family, friends and others, scream or curse at you: never Little interest or pleasure in doing things: several days Feeling down, depressed, or hopeless: more than half the days service: No Exam Const: Vital Signs, click to edit/add: Vital Signs - 24 hr 11/03/23 05:57 Temperature 97.7 F Pulse Rate [Pulse Oximeter] 100 Respiratory Rate 24 Blood Pressure [Ri ght Upper Arm] 147/87 H Pulse Oximetry 100 Oxygen Delivery Me thod Room Air Documenting provider has reviewed patient's vital signs: yes Common normals: no apparent distress and alert General appearance: cooperative and well kempt Other: Mildly anxious but answers questions appropriately. No abrasive behavior. HENMT: Common normals: normocephalic and TM's normal bilaterally Head and scalp: normocephalic Face and sinus: normal facial exam Tympanic membrane: TM's normal bilaterally Other: Levsin vehicle mucosa normal. She does have redness of the pharyngeal arches with slight blistering pattern but tonsils are 1+ with no deep crypts or significant enlargement. No exudate. Eye: Common normals: conjunctivae normal General eye: normal appearance of both eyes Conjunctiva: conjunctiva(e) normal Neck & C-Spine: Common normals: full ROM and no lymphadenopathy Chest: Common normals: inspection of chest normal and palpation of chest normal Other: Tenderness with palpation of Rodriguez major muscular insertion when shoulder is externally rotated and abducted, isolating the muscle belly. Normal range of motion and strength of the shoulder. Resp: Common normals: normal respiratory effort and clear to auscultation bilaterally Effort & inspection: able to speak in complete sentences Auscultation: clear to auscultation bilaterally Cardio: Common normals: regular rate, regular rhythm, S1 normal heart sound, S2 normal heart sound and no murmurs Rate: regular rate Rhythm: regular rhythm Heart sounds: S1 normal and S2 normal GI: Common normals: Normal to inspection, nondistended, normoactive bowel sounds present, soft to palpation, non-tender, no hepatosplenomegaly and no masses Palpation: soft and no hepatosplenomegaly Extremity: Common normals: normal to inspection and full ROM Other: Tenderness to rule left Rodriguez major muscle belly on insertion. Neuro: Sensorium/orientation: alert Motor exam: strength 5/5 throughout and no movement abnormalities noted Psych: Appearance: well kempt Attitude: engaged Activity/motor behavior: appropriate eye contact Insight: insight good Judgement: judgment good Other: Mildly anxious but good insight and judgment. For mima cooperative. Skin: Common normals: no rashes or lesions noted General skin exam: no rashes or lesions noted Course Course ED Course: Suspect musculoskeletal etiology based on exam, cannot exclude PE, cardiac process, pulmonary disease or other etiology. Recommended EKG, basic labs including a D-dimer. Trial of Toradol for pain and see if this helps. Re-evaluation after labs are back. Reevaluation(s) Time of Reevaluation #1: 07:55 Reevaluation #1: DISCUSSED INITIAL FINDINGS WITH PATIENT BUT STILL WAITING ON D-DIMER. THE TORADOL HAS IMPROVED HER PAIN SIGNIFICANTLY. I SUSPECT THIS IS MUSCULOSKELETAL, SHE IS IN AGREEMENT. WE DISCUSSED SYMPTOM CONTROL WITH TYLENOL AND IBUPROFEN, OKAY TO RESUME EXERCISE ON ALL TYPICAL ACTIVITIES. ALARM SYMPTOMS REVIEWED THAT WOULD WARRANT ED PRESENTATION AND ALARM, SHE VERBALIZES UNDERSTANDING AND AGREEMENT. She does ask about some chronic insomnia. I counseled patient that I am not the best provider to discuss that as I cannot give her long-term follow-up. I recommended melatonin and or Tylenol p.m., she states that she has tried these in the past. I let her know that since her brain is still developing, she may have a different response at this age than she did a couple of years ago and it may be worth revisiting those medications but have encouraged her to schedule a follow-up with her primary care provider to discuss further. She has a degree of meant with this plan. I will revisit if D-dimer is elevated but suspect it will be negative. She will be discharged if D-dimer is negative. Vital Signs Vital signs: Initial Vital Signs Temperature 97.7 F 11/03/23 05:57 Temperature Source Temporal Artery Scan 11/03/23 05:57 Pulse Rate 100 11/03/23 05:57 Respiratory Rate 11/03/23 05:57 Blood Pressure 147/87 H 11/03/23 05:57 Blood Pressure Mean 107 H 11/03/23 05:57 Blood Pressure Position Sitting 11/03/23 05:57 Pulse Oximetry 11/03/23 05:57 Oxygen Delivery Method Room Air 11/03/23 05:57 Vital Signs Temperature 97.7 F 11/03/23 05:57 Pulse Rate 100 11/03/23 05:57 Respiratory Rate 11/03/23 05:57 Blood Pressure 147/87 H 11/03/23 05:57 Pulse Oximetry 11/03/23 05:57 Oxygen Delivery Method Room Air 11/03/23 05:57 Temperature 97.7 F 11/03/23 05:57 Pulse Rate 11/03/23 05:57 Respiratory Rate 11/03/23 05:57 Blood Pressure 147/87 H 11/03/23 05:57 Pulse Oximetry 100 11/03/23 05:57 Oxygen Delivery Method Room Air 11/03/23 05:57 Medications Administered Medications: Discontinued Medications Generic Name Dose Route Start Last Admin Trade Name Freq PRN Reason Stop Dose Admin Ketorolac Tromethamine 10 mg 11/03/23 06:24 11/03/23 06:40 Ketorolac 10 Mg Tablet PO 11/03/23 06:25 10 mg ONCE ONE Administration Medical Decision Making Lab Data Lab results reviewed: Yes I reviewed the patient's lab results Lab results narrative: All negative, including D-dimer, as expected. Labs: Lab Results 11/03/23 11/03/23 Range/Units 06:23 06:38 WBC 5.78 (4.50-11.00) K/uL RBC 4.66 (4.00-5.20) m/uL Hgb 12.8 (12.0-16.0) gm/dL Hct 40.3 (33.0-51.0) % MCV 87 (80-100) fL MCH 28 (26-34) pg MCHC 32 (32-36) gm/dL RDW Coeff of Destini 14.0 (11.5-15.5) % Plt Count 275 (140-440) K/uL Neut % (Auto) 67.8 (42.0-72.0) % Lymph % (Auto) 20.8 (20-44) % Barbour % (Auto) 6.7 (0.0-11.0) % Eos % (Auto) 3.8 (0.0-7.0) % Baso % (Auto) 0.9 (0.0-3.0) % Neut # (Auto) 3.92 (1.7-7.0) K/uL Lymph # (Auto) 1.20 (0.90-2.90) K/uL [place]bour # (Auto) 0.40 (0.00-0.90) K/UL Eos # (Auto) 0.22 (0.00-0.50) K/uL Baso # (Auto) 0.05 (0.00-0.30) K/uL Abs Immat Gran (auto) 0.00 (0.00-0.30) K/uL Imm/Tot Granulo (auto) 0.0 % D-Dimer Quant (PE/DVT) < 0.27 (0.00-0.50) ug/ml Sodium 141 (135-149) mmol/L Potassium 4.0 (3.6-5.1) mmol/L Chloride 107 (96-114) mmol/L Carbon Dioxide 25 (20-32) mmol/L Anion Gap 9 (7-15) mEq/L BUN 11 (5-24) mg/dL Creatinine 0.7 (0.5-1.5) mg/dL Estimated Creat Clear 123.63 Estimated GFR 126 ml/min Glucose 97 (60-115) mg/dL Calcium 9.2 (8.4-10.6) mg/dL C-Reactive Protein 0.6 (0.5-1.0) mg/dL POC Troponin I 0.01 (0.01-0.04) ng/ml ECG Data Attestation: I personally reviewed and interpreted this ECG as follows: Prior ECG tracings: not available for review Interpretation: Sinus rhythm with a couple of PVCs. Overall normal intervals, normal axis. No ischemic changes. Rate 79. Discharge Plan Discharge Clinical Impression: Chest pain, non-cardiac Patient Disposition: Home, Self-Care Condition: Improved Instructions: Noncardiac Chest Pain (ED) Additional Instructions: As we discussed, it does not seem as though your chest pain is related to any dangers with her heart, lungs or any other vital organs. I do suspect that this is related to a pulled chest wall muscle, the pectoralis major. For pain, it is okay to use Tylenol 1000 mg every 6 hours as needed and or ibuprofen 600 mg every 6 hours as needed for pain. It is okay to ice or apply heat if either of these feel effective for you. It is okay to continue all activities and workouts. I think that the stress and anxiety of the pain was contributing to your poor sleep but this does certainly sound as though it is an ongoing issue for you. It is okay to reach try melatonin and or Benadryl to help. At your age, since her brain is still developing, this may be effective for you even though a couple of years ago it may not have been. I would recommend that for your sleep concerns, you make a follow-up appointment with her primary care physician to discuss alternatives if you do not find [id number] methods affective. If you have significant worsening of the pain, significant difficulty breathing, passing out or neurological changes, I would recommend that you come back to the emergency department. Activity Level: No Restrictions Discharge Diet: Regular Prescriptions: No Action albuterol sulfate 90 mcg/actuation HFA aerosol inhaler 2 puff inhalation Q4-6H PRN (Reason: shortness of breath or wheezing) Qty: 8.5 0RF lorazepam 1 mg tablet 1 mg PO DAILY PRN ferrous sulfate [Iron (ferrous sulfate)] 325 mg (65 mg iron) tablet 325 mg PO QDAY ascorbic acid (vitamin C) 1,000 mg tablet 1 g PO Q6H acetaminophen 500 mg Tablet 1,000 mg PO Q6H PRN (Reason: Pain) Qty: 0 0RF valacyclovir [Valtrex] 500 mg tablet 500 mg PO DAILY Follow Up/Referrals: Comfort Platt, CITY DISTRIBUTION CLERK, SOFTWARE ENGINEER KERNEL [Primary Care Provider] - Stand Alone Forms: [employer] Info Instructions
--- OUTSIDE RECORDS SUMMARY | 2023-11-03 06:30 | XMS_ITS ---
Care Plan Created on: November 03, 2023 Merry Rooney : 2000 Sex: Female Author Name Unknown Organization [facility] Address [address] [place] [id number] Phone Care Team Providers Care Electrical Tech Name Role Phone Unavailable Primary Care Provider [...] screening 02/05/2005 06/08/20 23 Overview: LW Onset: [id number] ; Child and Teen Check Up Needs [...] to make safe choices No Claire Workman, [facility] Reflective Functioning - MB OTP - To increase capacity to recognize and act on her child(deann)? s needs Care Plan MB OTP - To increase capacity to recognize and act on her child(deann)? s needs No Claire Workman, [facility] Developmental Growth - MB OTP - Increase overall functioning and stability by working towards emotional safety, developmental growth and self-agency Care Plan MB OTP - Increase overall functioning and stability by working towards emotional safety, developmental growth and self-agency No Claire Workman, [facility] Interventions Intervention Entry Date Outcome (Patient) Build [...]
--- OUTSIDE RECORDS SUMMARY | 2023-11-03 06:30 | XMS_ITS | Clinical Summary ---
Author Name Unknown Organization [facility] Address [address] [place] [address] Phone Care Team Providers Care Pilot Boat Operator Name Role Phone Unavailable Primary Care Provider Unavailabl e Source Comments [employer] is fully rolled out on [employer]. Last update 03/14/[email or web address] Allergies Active Allergy Reactions Criticality Noted Date [...] screening 02/05/2005 06/08/20 23 Overview: LW Onset: [id number] ; Child and Teen Check Up Needs Resolved Problems Problem Noted Date Diagnosed Date Resolved Date Acute encephalopathy 05/07/2023 06/08/2023 023 Encounters Date Type Department Care Team Description 10/14/2023 10:00 AM DRYING TUNNEL OPERATOR Telemedicine Psych Rehab [facility] [address] [address] Claire Workman, [facility] Karoline Benson MD Discharge Disposition: Discharged to home or self care (routine discharge) 09/30/2023 10:00 AM DRYING TUNNEL OPERATOR Telemedicine Psych Rehab [facility] [address] [address] Claire Workman, [facility] Karoline Benson MD Discharge Disposition: Discharged to home or self care (routine discharge) 09/23/2023 10:00 AM DRYING TUNNEL OPERATOR Telemedicine Psych Rehab [facility] [address] [address] Claire Workman, [facility] Mando Estes DO Discharge Disposition: Discharged to home or self care (routine discharge) 09/09/2023 10:00 AM DRYING TUNNEL OPERATOR Telemedicine Psych Rehab [facility] [address] [address] Claire Workman, [facility] Discharge Disposition: Discharged to home or self care (routine discharge) 09/07/2023 [place] [facility] [address] [address] Regina Romero MHW Mother Baby - Mental Health Outreach 08/26/2023 10:00 AM DRYING TUNNEL OPERATOR Telemedicine Psych Rehab [facility] [address] [address] Claire Workman, [facility] Discharge Disposition: Discharged to home or self care (routine discharge) 08/19/2023 1:00 PM DRYING TUNNEL OPERATOR Telemedicine Psych Rehab [facility] [address] [address] Claire Workman, [facility] Mother Baby - Standard Diagnostic Assessment Discharge Disposition: Discharged to home or self care (routine discharge) 08/19/2023 10:00 AM DRYING TUNNEL OPERATOR Telemedicine Psych Rehab [facility] [address] [address] Claire Workman, [facility] Discharge Disposition: Discharged to home or self care (routine discharge) 08/12/2023 10:00 AM CDT Telemedicine Psych Rehab [address] [address] Claire Workman, [facility] Discharge Disposition: Discharged to home or self care (routine discharge) 08/12/2023 Documentation Only [address] [address] Kiana Borges, nutrition faculty member Rehab Health Screen from Last 3 Months Social History Tobacco [...] Management 02/20/2024 08/22/2023 TD/TDAP ADULTS 03/30/2033 03/30/2023, 03/02/2021, 02/19/2014, Additional history exists HIB Completed 07/16/2004, [...] developmental growth and self-agency No [facility]man, [facility] Additional Health Concerns Problem Noted Date Diagnosed [...] Advance Directives For more information, please contact: [phone] Latest Code Status on File Code Status Date Activated Date Inactivated Comments Full Code 06/08/2023 10:12 PM 06/15/2023 1:52 PM Question Answer Comments Does the Patient have prefer ences regarding life sustaining measures (these options only apply when the patient has a pulse): No Discussed Code Status With Whom? Not discussed
--- OUTSIDE RECORDS SUMMARY | 2023-11-03 06:30 | XMS_ITS | Encounter Summary ---
Author Name Unknown Organization [facility] Address [address] [place] [address] Phone Care Team Providers Care Associate Professor Of Engineering Name Role Phone Unavailable Primary Care Provider Unavailabl e Encounter Details Date Type Department Care Team Description 09/23/2023 10:00 AM DOWEL STICKER OPERATOR Telemedicine Psych Rehab [address] [phone] Claire Workman, [address] [phone] Mando Estes DO [place] [address] [phone] Discharge Disposition: Discharged to home or self [...] Notes * Group Note - Claire Workman [facility] - 09/23/2023 10:00 AM CST Dept: [facility] Type of Service: Group Therapy Provider/Group Spring Coiling Machine Setter: Claire Workman [facility] Date of Service: 09/23/2023 Start Time: [...] Location: Home Provider's Physical Location: Onsite at [facility] Participants in this Telemedicine Visit other than the patient/provider and other group attendees included: N/A This visit started at: 10 AM and concluded at: 11:30 AM. Total time spent on this visit, including kdubkagj-ax-wvrerpy interaction, review of medical record, and documentation: 100 minutes. Patient consents to this service: Yes Group Description: Tuesday Connections group consists of a psychotherapy group with content from [place] of [email or web address] Parenting. Session Content of Today's Group: Topics [...] acts Claire Workman LPCC, 09/23/2023 1:01 PM L STICKER OPERATOR documented in this encounter Plan of [...] Total Score: 7 08/22/20 23 11:05 AM DOWEL STICKER OPERATOR PHQ-2 Depression Total Score: 2 08/22/20 11:05 AM DOWEL STICKER OPERATOR documented as of this encounter
--- OUTSIDE RECORDS SUMMARY | 2023-11-03 06:30 | XMS_ITS | Encounter Summary ---
Author Name Unknown Organization [facility] Address [address] [facility] [place] [address] Phone Care Team Providers Care Pallet Stone Positioner Name Role Phone Unavailable Primary Care Provider Unavailabl e Encounter Details Date Type Department Care Team Description 10/14/2023 10:00 AM PRODUCTION BROACHER Telemedicine Psych [facility]hab [facility] [address] [place], [place] [address] Claire Workman, [facility] [address] [facility] [place], [place] [phone] Karoline Benson MD 701 [facility] [address] [place], [place] [address] Discharge Disposition: Discharged to home or self [...] Total Score: 7 08/22/20 23 11:05 AM PRODUCTION BROACHER PHQ-2 Depression Total Score: 2 08/22/20 23 11:05 AM PRODUCTION BROACHER documented as of this encounter
--- OUTSIDE RECORDS SUMMARY | 2023-11-03 06:30 | XMS_ITS | Encounter Summary ---
Author Name Unknown Organization [facility] Address [address] [place] [address] Phone Care Team Providers Care Hand Candy Cutter Name Role Phone Unavailable Primary Care Provider Unavailabl e Reason for Visit * Reason Onset Date Comments Mother Baby - Mental Health Outreach 09/07/2023 Encounter Details Date Type Department Care Team Description 09/07/2023 Telephone [facility] Family [facility] [address] [place] [address] Regina Romero MHW 701 [place] [address] Mother Baby - Mental Health Outreach Social [...] Lor Romero Mental Health Worker Mother-Baby Program MOGRAPH RECORDER documented in this encounter Plan of Treatment [...] Total Score: 7 08/22/20 23 11:05 AM SEISMOGRAPH RECORDER PHQ-2 Depression Total Score: 2 08/22/20 23 11:05 AM SEISMOGRAPH RECORDER documented as of this encounter
--- OUTSIDE RECORDS SUMMARY | 2023-11-03 06:30 | XMS_ITS | Encounter Summary ---
Author Name Unknown Organization [facility] Address 1 [place] [address] Phone Care Team Providers Care Consumer Loan Underwriter Name Role Phone Unavailable Primary Care Provider Unavailabl e Encounter Details Date Type Department Care Team Description 08/26/2023 10:00 AM FIBERGLASS GRINDER Telemedicine Psych Rehab [facility] [address] [place] [phone] Claire Workman LPCC [address] [place], [place] [phone] Discharge Disposition: Discharged to home or self [...] LPCC - 08/26/2023 10:00 AM CST Dept: [facility] Type of Service: Group Therapy Provider/Group Race Relations Adviser: Claire Workman LPCC Date of Service: 08/26/2023 [...] Location: Home Provider's Physical Location: Onsite at [facility] Participants in this Telemedicine Visit other than the patient/provider and other group attendees included: N/A This visit started at: 10 AM and concluded at: 11:30 AM. Total time spent on this visit, including qkaaeviw-vf-znendsy interaction, review of medical record, and documentation: 100 minutes. Patient consents to this service: Yes Group Description: Tuesday Connections group consists of a psychotherapy group with content from [place] of [employer] Parenting. Session Content of Today's Group: Topics [...] Discharge Plan/Anticipated Discharge: 09/09, then transfer to [facility] Diagnoses: 1. PTSD (post-traumatic stress disorder) 2. Mixed obsessional thoughts and acts Claire Workman LPCC, 08/26/2023 1:21 PM RGLASS GRINDER documented in this encounter Plan of Treatment [...] Total Score: 7 08/22/20 23 11:05 AM FIBERGLASS GRINDER PHQ-2 Depression Total Score: 2 08/22/20 23 11:05 AM FIBERGLASS GRINDER documented as of this encounter
--- OUTSIDE RECORDS SUMMARY | 2023-11-03 06:30 | XMS_ITS | Encounter Summary ---
Author Name Unknown Organization [facility] Address [address] [place] [address] Phone Care Team Providers Care Tin Assorter Name Role Phone Unavailable Primary Care Provider Unavailabl e Encounter Details Date Type Department Care Team Description 09/30/2023 10:00 AM FOREIGN AGENT Telemedicine Psych Rehab [facility] [address] [place] [address] Claire Workman, [facility] 701 [place], [place] [address] Karoline Benson MD 701 [facility] [address] [place], [place] [phone] Discharge Disposition: Discharged to home or self [...] LPCC - 09/30/2023 10:00 AM CST Dept: [facility] Type of Service: Group Therapy Provider/Group Tank Cleaning Supervisor: Claire Workman [facility] Date of Service: 09/30/2023 Start [...] Location: Home Provider's Physical Location: Onsite at [facility] Participants in this Telemedicine Visit other than the patient/provider and other group attendees included: N/A This visit started at: 10 AM and concluded at: 11:30 AM. Total time spent on this visit, including ksuxjhjf-tj-blnsmvj interaction, review of medical record, and documentation: 100 minutes. Patient consents to this service: Yes Group Description: Tuesday Connections group consists of a psychotherapy group with content from [place] of [employer] Parenting. Session Content of Today Group: Topics [...] acts Claire Workman LPCC, 09/30/2023 1:35 PM IGN AGENT documented in this encounter Plan of Treatment [...] Total Score: 7 08/22/20 23 11:05 AM FOREIGN AGENT PHQ-2 Depression Total Score: 2 08/22/20 23 11:05 AM FOREIGN AGENT documented as of this encounter
--- OUTSIDE RECORDS SUMMARY | 2023-11-03 06:30 | XMS_ITS | Encounter Summary ---
Author Name Unknown Organization [facility] Address [address] [place] [address] Phone Care Team Providers Care Groutman Name Role Phone Unavailable Primary Care Provider Unavailabl e Encounter Details Date Type Department Care Team Description 09/09/2023 10:00 AM HYDRAULIC MODELING ENGINEER Telemedicine Psych Rehab [facility] [address] [place] [phone] Claire Workman LPCC [address] [place], [place] [phone] Discharge Disposition: Discharged to home or self [...] LPCC - 09/09/2023 10:00 AM CST Dept: [facility] Type of Service: Group Therapy Provider/Group Doffer: Claire Workman LPCC Date of Service: 09/09/2023 [...] Provider's Physical Location: Onsite at [facility]/Affiliate Participants in this Telemedicine Visit other than the patient/provider and other group attendees included: N/A This visit started at: 10 AM and concluded at: 11:30 AM. Total time spent on this visit, including prmpcgsx-wl-umsqhgu interaction, review of medical record, and documentation: 100 minutes. Patient consents to this service: Yes Group Description: Tuesday Connections group consists of a psychotherapy group with content from [place] of [employer] Parenting. Session Content of Today's Group: Topics [...] () Claire Workman LPCC, 09/09/2023 11:54 AM AULIC MODELING ENGINEER documented in this encounter Plan of [...] Total Score: 7 08/22/20 23 11:05 AM HYDRAULIC MODELING ENGINEER PHQ-2 Depression Total Score: 2 08/22/20 11:05 AM HYDRAULIC MODELING ENGINEER documented as of this encounter
--- OUTSIDE RECORDS SUMMARY | 2023-11-03 06:31 | XMS_ITS | Encounter Summary ---
Author Name Unknown Organization [facility] Address [address] [place] [address] Phone Care Team Providers Care Hair Spring Cutter Name Role Phone Unavailable Primary Care Provider Unavailabl e Reason for Visit * Prior Authorization (Routine) - Closed Specialty Diagnoses / Procedures Referred By Contac t Referred To Contact Psych Rehab Diagnoses Bipolar II disorder () Trauma and stressor-related disorder Procedures MOTHER BABY ENROLLMENT Jazmine Potter, [facility] [address] [place] [address] [address] [address] [address] Referral ID Status Reason Start Date Expiration Date Visits Re quested Visits Authorized [id number] Closed 05/09/2023 06/24/2023 105 105 Encounter Details Date Type Department Care Team Description 06/23/2023 1:45 PM CDT [facility] [address] [place] [phone] Karoline Benson MD 701 [facility] [address] [place], [place] [phone] Dh, Mother Baby Discharge Disposition: Discharged to [...] LPCC - 06/23/2023 1:45 PM CDT Dept: [facility] Family [facility] Type of Service: Group Therapy Name of Group: Psychoeducation/Skills Group Provider/Group Training Instructor: Claire Workman LPCC Date of Service: 06/23/2023 Start Time: 1:45 PM Stop Time: 2:30 PM Number of Group Members Present: 5 Location of Service: Face to Face at [facility] Session Content (Intervention): The purpose of [...]
--- OUTSIDE RECORDS SUMMARY | 2023-11-03 06:31 | XMS_ITS | Encounter Summary ---
Author Name Unknown Organization [facility] Address [address] [place] [address] Phone Care Team Providers Care Painter Spring Name Role Phone Unavailable Primary Care Provider Unavailabl e Reason for Visit * Prior Authorization (Routine) - Closed Specialty Diagnoses / Procedures Referred By Contac t Referred To Contact Psych Rehab Diagnoses Bipolar II disorder () Trauma and stressor-related disorder Procedures MOTHER BABY ENROLLMENT Jazmine Potter, [facility] [address] [place] [address] [address] Referral ID Status Reason Start Date Expiration Date Visits Re quested Visits Authorized [id number] Closed 05/09/2023 06/24/2023 105 105 Encounter Details Date Type Department Care Team Description 06/22/2023 3:00 PM CDT [facility] 701 [place], [place] [address] Noy Chen, [facility] 701 [place], [place] [phone] Karoline Benson MD 701 [facility] [address] [place], [place] [phone] Discharge Disposition: Discharged to home or self [...] this encounter Progress Notes * Noy Chen, [facility] - 06/22/2023 3:00 PM CDT [facility] Progress Note Date of Service: 06/22/2023 Start Time: 3pm Stop Time: 4pm Location of Visit: Face to Face at [facility] Participants in this Visit other than the patient/provider included: Patient's partner. Pt was not present during today's visit. COLLATOR SERVICES PROVIDED (if applicable): No Type of [...] to reach out if needed. Email sent: [email or web address] Patient Response to Intervention (including any plans [...] Plan: 1. Psychotherapy: Pt to continue in [facility] programming; partner to engage in brief, individual [...]
--- OUTSIDE RECORDS SUMMARY | 2023-11-03 06:31 | XMS_ITS | Encounter Summary ---
Author Name Unknown Organization [facility] Address 1 [place] [address] Phone Care Team Providers Care Shank Stitcher Name Role Phone Unavailable Primary Care Provider Unavailabl e Encounter Details Date Type Department Care Team Description 07/01/2023 10:00 AM CDT Telemedicine Psych Rehab [address] [phone] Claire Workman, [facility] 701 [place], [place] [phone] Discharge Disposition: Discharged to home or self [...] Notes * [facility] 10:00 AM CDT Dept: [facility] Type of Service: Group Therapy Provider/Group Gluing Pressman: Claire Workman [facility] Date of Service: 07/01/2023 Start Time: 10:00 AM Stop Time: 11:30 AM Number of Group Members Present: 4 Name of Group: Tuesday Connections Group Frequency: Weekly Location of Service: Hybrid Group (some participants face to face and some some on video): If this option is selected, telemed statement needs to be added for those who were on video. Telemedicine: [employer] Video Visit: This telemedicine visit is conducted by audio and video technology between thepatient and provider. Informed consent was provided during e-check in and signed by patient. Patient was offered opportunity to ask any questions. Patient's Physical Location: Home Provider's Physical Location: Onsite at [facility]/Affiliate Participants in this Telemedicine Visit other than the patient/provided included: Other group members This visit started at: 10 AM and concluded at: 11:30 AM. Group Description: Tuesday Connections group consists of a psychotherapy group with content from [place] of [employer] Parenting. Session Content of Today's [...]
--- OUTSIDE RECORDS SUMMARY | 2023-11-03 06:31 | XMS_ITS | Encounter Summary ---
Author Name Unknown Organization [facility] Address [address] [place] [address] Phone Care Team Providers Care Computer Technology Trainer Name Role Phone Unavailable Primary Care Provider Unavailabl e Encounter Details Date Type Department Care Team Description 07/22/2023 Plan of Care Documentation [facility] [address] [place], [place] [phone] Social History Tobacco Use Types Packs/Day Years [...]
--- OUTSIDE RECORDS SUMMARY | 2023-11-03 06:31 | XMS_ITS | Encounter Summary ---
Author Name Unknown Organization [facility] Address [address] [place] [address] Phone Care Team Providers Care Child Care Assistant Name Role Phone Unavailable Primary Care Provider Unavailabl e Reason for Visit * Reason Comments Psych Medication Management Encounter Details Date Type Department Care Team Description 06/20/2023 10:00 AM CDT Psych Rehab [facility] 701 [place], [place] [phone] Karoline Benson MD 701 [facility] [address] [place], [place] [address] Psych Medication Management Discharge Disposition: Discharged to [...] [facility], Psychiatry Visit Started the [facility] on: 05/09/23 (admitted to [facility] Psychiatry 06/08-06/15/23) Merry Rooney is a 23 y.o. mother of baby (Aidan born 05/03/23) and 2 year old son (Chuy). Referred by [facility] inpatient initially to the [facility]. Also admitted while she was in the program to [facility] ([place], [place]) 05/24-05/30/23. Cultural Context: white, Arabic and Niuean Pronouns: she/her/hers; Supports: [place] -- supportive Therapist: ; PCP: ; OB-MERCHANDISING INTERNSHIP: [place] Ob; Java Programmer: Feeding Method: mainly formula because milk supply [...] while she was in the program to [facility] ([place], [place]) 05/24- 05/30/23. Multiple, recent ED visits for physical sx of anxiety as well as SI - mainly to [place] ED (see 06/02/[address] Esposito for recent summary of ED courses). Admitted to [facility] Psychiatry 06/08-06/15/23) Diagnostic Impression(s) Bipolar II Disorder, current episode depressed, severe with psychotic symptoms PTSD and (Complex Developmental Trauma) Unspecified anxiety (intrusive thoughts) Opioid and alcohol use disorders, by history Multiple closed head injuries and hx of seizure preeclampsia Assessment Strong, caring, resilient 23 y.o. mother of 2 following a harrowing course with psychotic symptoms and possible preeclampsia leading to transfer to [facility] ICU. Longitudinal course consistent with Complex Developmental Trauma and bipolar spectrum leading to a psychiatric admission ( 05/24- to [facility]) and recent admission to 06/08-06/15/23 [facility]. Improved depression and no current suicidal ideation. [...] Discharge planning. Intervening History Recent admission to [facility] Psychiatry reviewed -- 06/08-06/15/23 Today -Yesterday stopped [...] 150.0 ng/mL Final Comment: Test Performed by: [facility] Laboratory [address] [place] [id number] Transferrin 06/12/2023 293 200 - 360 mg/dL [...] when she was 4. Mother lived in [place]. 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 Legal: no had involvement with the legal system. The patient reports the following spiritual and/or cultural history: Arabic and Niuean background Relationship to her partner/father/co-parent of the [...]
--- OUTSIDE RECORDS SUMMARY | 2023-11-03 06:31 | XMS_ITS | Encounter Summary ---
Author Name Unknown Organization [facility] Address [address] [place] [address] Phone Care Team Providers Care Acupressurist Name Role Phone Unavailable Primary Care Provider Unavailabl e Reason for Visit * Reason Comments Mother Baby - Individual Psychotherapy * Prior Authorization (Routine) - Closed Specialty Diagnoses / Procedures Referred By Bernardo t Referred To Contact Psych Rehab Diagnoses Bipolar II disorder () Trauma and stressor-related disorder Procedures MOTHER BABY ENROLLMENT Jazmine Potter, [facility] [address] [place] [address] [address] [address] [address] Referral ID Status Reason Start Date Expiration Date Visits Re quested Visits Authorized [id number] Closed 05/09/2023 06/24/2023 105 105 Encounter Details Date Type Department Care Team Description 06/20/2023 2:30 PM CDT Psych Rehab [facility] [address] [place] [phone] Claire Workman, [facility] 701 [place], [place] [phone] Mother Baby - Individual Psychotherapy Discharge Disposition: [...] encounter Progress Notes * Ji Claire Garcia, [facility] - 06/20/2023 2:30 PM CDT [facility] Progress Note Date of Service: 06/20/2023 Start Time: 2:30 pm Stop Time: 3 pm Location of Visit: Face to Face at [facility] Participants in this Visit other than [...] plan and plan for further services, including [facility] outpatient services. Patient Response to Intervention [...] this provider in , then transition to [facility] provider; therapy homework = n/a 2. Psychiatric care: Continue with providers, then transition to [facility] prescriber 3. Utilize emergency resources (APS, [...]
--- OUTSIDE RECORDS SUMMARY | 2023-11-03 06:31 | XMS_ITS | Encounter Summary ---
Author Name Unknown Organization [facility] Address [address] [place] [address] Phone Care Team Providers Care Spring Manufacturing Set Up Technician Name Role Phone Unavailable Primary Care Provider Unavailabl e Reason for Visit * Prior Authorization (Routine) - Closed Specialty Diagnoses / Procedures Referred By Contac t Referred To Contact Psych Rehab Diagnoses Bipolar II disorder () Trauma and stressor-related disorder Procedures MOTHER BABY ENROLLMENT Jazmine Potter, [facility] [address] [place] [address] [address] Referral ID Status Reason Start Date Expiration Date Visits Re quested Visits Authorized [id number] Closed 05/09/2023 06/24/2023 105 105 Encounter Details Date Type Department Care Team Description 06/22/2023 1:45 PM CDT [facility] [address] [place] [address] [phone] Karoline Benson MD 701 [facility] [address]60 [place], [place] [phone] Dh, Mother Baby Discharge Disposition: Discharged to [...] LICSW - 06/22/2023 1:45 PM CDT Dept: [facility] Type of Service: Group Therapy Name of Group: Psychoeducation/Skills Group Provider/Group Mammography Technician: Jazmine Potter LICSW Date of Service: 06/22/2023 Start Time: 1:45 PM Stop Time: 2:30 PM Number of Group Members Present: 4 Location of Service: Face to Face at [facility] PAINT PREPARER SERVICES PROVIDED (if applicable): No Session Content [...]
--- OUTSIDE RECORDS SUMMARY | 2023-11-03 06:31 | XMS_ITS | Encounter Summary ---
Author Name Unknown Organization [facility] [place] Address [address] [place] [address] Phone Care Team Providers Care Tractor Operator Battery Name Role Phone Unavailable Primary Care Provider Unavailabl e Reason for Visit * Prior Authorization (Routine) - Closed Specialty Diagnoses / Procedures Referred By Contac t Referred To Contact Psych Rehab Diagnoses Bipolar II disorder () Trauma and stressor-related disorder Procedures MOTHER BABY ENROLLMENT Jazmine Potter, [facility] [address] [place] [address] [address] Referral ID Status Reason Start Date Expiration Date Visits Re quested Visits Authorized [id number] Closed 05/09/2023 06/24/2023 105 105 Encounter Details Date Type Department Care Team Description 06/23/2023 9:30 AM CDT [facility] [address] [place] [address] [phone] Karoline Benson MD 701 [facility] S1 860 [place], [place] [phone] Dh, Mother Baby Discharge Disposition: Discharged to [...] LPCC - 06/23/2023 9:30 AM CDT Dept: [facility] Type of Service: Group Therapy Name of Group: Psychoeducation/Skills Group Provider/Group Stockroom Associate: Claire Workman LPCC Date of Service: 06/23/2023 Start Time: 9:30 AM Stop Time: 10:15 AM Number of Group Members Present: 4 Location of Service: Face to Face at [facility] Session Content (Intervention): Welcomed any new [...]
--- OUTSIDE RECORDS SUMMARY | 2023-11-03 06:31 | XMS_ITS | Encounter Summary ---
Author Name Unknown Organization [facility] [place] Address [address] [place] [address] Phone Care Team Providers Care Educational Diagnostician Name Role Phone Unavailable Primary Care Provider Unavailabl e Reason for Visit * Prior Authorization (Routine) - Closed Specialty Diagnoses / Procedures Referred By Contac t Referred To Contact Psych Rehab Diagnoses Bipolar II disorder () Trauma and stressor-related disorder Procedures MOTHER BABY ENROLLMENT Jazmine Potter, [facility] 701 [place] [address] [address] Referral ID Status Reason Start Date Expiration Date Visits Re quested Visits Authorized [id number] Closed 05/09/2023 06/24/2023 105 105 Encounter Details Date Type Department Care Team Description 06/23/2023 11:00 AM CDT [facility] [address] [place] [address] [phone] Karoline Benson MD 701 [facility] S1 860 [place], [place] [phone] Dh, Mother Baby Discharge Disposition: Discharged to [...] RN - 06/23/2023 11:00 AM CDT Dept: [facility] Type of Service: Group Therapy Provider/Group Sand Caster: Kiana Borges RN Date of Service: 06/23/2023 Start Time: 11:15 AM Stop Time: 12:00 PM Number of Group Members Present: 4 Name of Group: Movement Location of Service: Face to Face at [facility] ROLL CARRIER SERVICES PROVIDED (if applicable): No Session Content (Intervention) (including goal/intended outcome): Encouraged group members to participate in mind-body skills facilitated by [facility] Trauma- Informed Yoga providers. Trauma-sensitive mind-body skills [...]
--- OUTSIDE RECORDS SUMMARY | 2023-11-03 06:31 | XMS_ITS | Encounter Summary ---
Author Name Unknown Organization [facility] Address 1 [place] [address] Phone Care Team Providers Care Dermatologist Name Role Phone Unavailable Primary Care Provider Unavailabl e Encounter Details Date Type Department Care Team Description 07/22/2023 10:00 AM CDT Telemedicine Psych Rehab [facility] [address] [place] [address] [phone] Claire Workman LPCC 701 [place], [place] 0[address] Discharge Disposition: Discharged to home or self [...] LPCC - 07/22/2023 10:00 AM CDT Dept: [facility] Type of Service: Group Therapy Provider/Group Workforce Consultant: Claire Workman LPCC Date of Service: 07/22/2023 [...] of a psychotherapy group with content from [employer] [employer]. Session Content of Today's [...]
--- OUTSIDE RECORDS SUMMARY | 2023-11-03 06:31 | XMS_ITS | Encounter Summary ---
Author Name Unknown Organization [facility] Address [address] [place] [address] Phone Care Team Providers Care Finance Business Partner Name Role Phone Unavailable Primary Care Provider Unavailabl e Reason for Visit * Reason Comments Psych Rehab Health Screen Encounter Details Date Type Department Care Team Description 08/12/2023 Documentation Only [facility] 701 [place] [address] Kiana Borges, RN [facility] 701 [place] [address] Psych Rehab Health Screen Social History Tobacco [...] questions. Difficult to pay for child care attendant school? X 2. Difficult to pay your bills? [...]
--- OUTSIDE RECORDS SUMMARY | 2023-11-03 06:31 | XMS_ITS | Encounter Summary ---
Author Name Unknown Organization [facility] Address 1 [place] [address] Phone Care Team Providers Care Middle [employer] Volleyball Coach Name Role Phone Unavailable Primary Care Provider Unavailabl e Encounter Details Date Type Department Care Team Description 08/19/2023 10:00 AM MARKET SPECIALIST Telemedicine Psych Rehab [facility] [address] [place] [address] [phone] Claire Workman LPCC 701 [place], [place] [phone] Discharge Disposition: Discharged to home or self [...] LPCC - 08/19/2023 10:00 AM CST Dept: [facility] Type of Service: Group Therapy Provider/Group Services Mgr: Claire Workman LPCC Date of Service: 08/19/2023 [...] Physical Location: Onsite at [facility] Participants in this Telemedicine Visit other than the patient/provider and other group attendees included: N/A This visit started at: 10 AM and concluded at: 11:30 AM. Total time spent on this visit, including [id number] interaction, review of medical record, and documentation: 100 minutes. Patient consents to this service: Yes Group Description: Tuesday Connections group consists of a psychotherapy group with content from [employer] [employer]. Session Content of Today's Group: Topics [...] disorder Claire Workman LPCC, 08/19/2023 2:14 PM ET SPECIALIST documented in this encounter Plan of Treatment [...]
--- OUTSIDE RECORDS SUMMARY | 2023-11-03 06:31 | XMS_ITS | Encounter Summary ---
Author Name Unknown Organization [facility] Address [address] [place] [address] Phone Care Team Providers Care Log Yard Manager Name Role Phone Unavailable Primary Care Provider Unavailabl e Reason for Visit * Prior Authorization (Routine) - Closed Specialty Diagnoses / Procedures Referred By Contac t Referred To Contact Psych Rehab Diagnoses Bipolar II disorder () Trauma and stressor-related disorder Procedures MOTHER BABY ENROLLMENT Jazmine Potter, [facility] 701 [place] [address] [address] Referral ID Status Reason Start Date Expiration Date Visits Re quested Visits Authorized [id number] Closed 05/09/2023 06/24/2023 105 105 Encounter Details Date Type Department Care Team Description 06/23/2023 10:15 AM CDT [facility] [address] [place] [address] [phone] Karoline Benson MD [address] [facility] S[address]60 [place], [place] [phone] Dh, Mother Baby Discharge Disposition: Discharged to [...] LPCC - 06/23/2023 10:15 AM CDT Dept: [facility] Type of Service: Group Therapy Name of Group: Psychotherapy Process Group Provider/Group Plate Painter Apprentice: Claire Workman LPCC Date of Service: 06/23/2023 Start Time: 10:15 AM Stop Time: 11:00 AM Number of Group Members Present: 4 Location of Service: Face to Face at [facility] Session Content of Today's Group: At [...]
--- OUTSIDE RECORDS SUMMARY | 2023-11-03 06:31 | XMS_ITS | Encounter Summary ---
Author Name Unknown Organization [facility] Address 1 [place] [address] Phone Care Team Providers Care Podiatrist Assistant Name Role Phone Unavailable Primary Care Provider Unavailabl e Reason for Visit * Reason Comments Mother Baby - Standard Diagnostic Assess ment Encounter Details Date Type Department Care Team Description 08/19/2023 1:00 PM MEDICAL PATHOLOGY TEACHER Telemedicine Psych Rehab [facility] 701 [place], [place] [phone] Claire Workman, [facility] [address] [place] [address] [phone] Mother Baby - Standard Diagnostic Assessment Discharge [...] this encounter Progress Notes * Claire Workman [facility] - 08/19/2023 1:00 PM CST [facility] Patient Name: Merry Rooney : 2000 STANDARD DIAGNOSTIC ASSESSMENT Date of Service: 08/19/2023 Start Time: 1:07 pm Stop Time: 1:48 pm Location: Telemedicine: [facility] Video Visit: This telemedicine visit is conducted by audio and video technology between thepatient and provider. Informed consent was provided during e-check in and signed by patient. Patient was offered opportunity to ask any questions. Patient's Physical Location: Home Provider's Physical [facility] PRESENTING CONCERN: Referral Source: referred by inpatient team at [facility] after traumatic of second child Reason for [...] who was referred by inpatient team at [facility] for evaluation of PTSD and effects of [...] She reports a history of self-injury from [id number]. She reports violent behaviors have happened several [...] Resources Current psychiatry provider is Juanita at [facility]. Current therapist is Raegan at [facility]. Current treatment resources include group psychotherapy. [...] and chemical health):?No Support for Sobriety Includes: [place] Support Group such as AA/SMART in the [...] Orientation: bisexual Race/Ethnicity: white History: No Belief System:?Bahai, non-confucianist Impact of Cultural Influences on Treatment: None [...] needs include Food stamps Medical insurance Employment [employer]. Significant Personal Relationships: Patient is . Patient [...] law. Claire Workman LPCC, 08/19/2023 1:08 PM CAL PATHOLOGY TEACHER documented in this encounter Plan of Treatment [...] safety, developmental growth and self-agency Claire Vazquez, [facility] documented as of this encounter Visit [...] Total Score: 7 08/22/20 23 11:05 AM MEDICAL PATHOLOGY TEACHER PHQ-2 Depression Total Score: 2 08/22/20 23 11:05 AM MEDICAL PATHOLOGY TEACHER documented as of this encounter
--- OUTSIDE RECORDS SUMMARY | 2023-11-03 06:31 | XMS_ITS | Encounter Summary ---
Author Name Unknown Organization [facility] Address [address] [place] [address] Phone Care Team Providers Care Credit Card Control Clerk Name Role Phone Unavailable Primary Care Provider Unavailabl e Reason for Visit * Reason Onset Date Comments Psych Medication Management 06/22/2023 Encounter Details Date Type Department Care Team Description 06/22/2023 11:00 AM CDT Psych Rehab [facility] Family [address] [phone] Karissa Sams MD [address] [place] [address] [phone] Psych Medication Management Discharge Disposition: Discharged to [...] [facility], Psychiatry Visit Started the [facility] on: 05/09/23 (admitted to [facility] Psychiatry 06/08-06/15/23) Merry Rooney is a 23 y.o. mother of baby (Aidan born 05/03/23) and 2 year old son (Chuy). Referred by [facility] initially to the [facility]. Also admitted while she was in the program to [place], [place]) 05/24-05/30/23. Cultural Context: white, [place]er and Filipino Pronouns: she/her/hers; Supports: [place] -- supportive Therapist: ; PCP: ; OB-FIBERGLASS BOAT BUILDER: Antonio Ob; Film Flat Inspector: Feeding Method: mainly formula because milk supply [...] while she was in the program to [facility] ([place], [place]) 05/24- 05/30/23. Multiple, recent ED visits for physical sx of anxiety as well as SI - mainly to [facility] (see 06/02/[address] Esposito for recent summary of ED courses). Admitted to [facility] Psychiatry 06/08-06/15/23) Diagnostic Impression(s) Bipolar II Disorder, current episode depressed, severe with previous psychotic symptoms PTSD and (Complex Developmental Trauma) Unspecified anxiety (intrusive thoughts) - R/O OCD Opioid and alcohol use disorders, by history Multiple closed head injuries and hx of seizure preeclampsia Assessment [place], caring, resilient 23 y.o. mother of 2 following a harrowing course with psychotic symptoms and possible preeclampsia leading to transfer to [facility]. Longitudinal course consistent with Complex Developmental Trauma and bipolar spectrum leading to a psychiatric admission ( 05/24- to [facility]) and recent admission to 06/08-06/15/23 [facility]. Improved depression and no current suicidal ideation. [...] DBT, medication management [facility]. Intervening History Last seen 06/[address] [...] PM) Psychiatric History Hospitalizations: multiple-most recent at [facility] 06/08-06/15/23, admitted at 16 for first time [...] when she was 4. Mother lived in [place]. 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 Legal: no had involvement with the legal system. The patient reports the following spiritual and/or cultural history: [place]er and Filipino background Relationship to her partner/father/co-parent of the [...] LICSW - 06/22/2023 11:00 AM CDT Dept: [facility] Type of Service: Group Therapy Provider/Group Piano Instructor: Jazmine Potter LICSW Date of Service: 06/22/2023 Start Time: 11:15 AM Stop Time: 12:00 PM Number of Group Members Present: 4 Name of Group: Movement Location of Service: Face to Face at [facility] [place] [employer] PROVIDED (if applicable): No Session Content (Intervention) (including goal/intended outcome): Encouraged group members to participate in mind-body skills facilitated by [facility] Trauma-Informed Yoga providers. Trauma-sensitive mind-body skills and [...]
--- OUTSIDE RECORDS SUMMARY | 2023-11-03 06:31 | XMS_ITS | Encounter Summary ---
Author Name Unknown Organization [facility] Address [address] [place] [address] Phone Care Team Providers Care Bank Credit Card Collection Clerk Name Role Phone Unavailable Primary Care Provider Unavailabl e Reason for Visit * Prior Authorization (Routine) - Closed Specialty Diagnoses / Procedures Referred By Contac t Referred To Contact Psych Rehab Diagnoses Bipolar II disorder () Trauma and stressor-related disorder Procedures MOTHER BABY ENROLLMENT Jazmine Potter, [facility] [address] [place] [address] [address] [address] [address] Referral ID Status Reason Start Date Expiration Date Visits Re quested Visits Authorized [id number] Closed 05/09/2023 06/24/2023 105 105 Encounter Details Date Type Department Care Team Description 06/22/2023 9:30 AM CDT [facility] [address] [place] [address] [phone] Karoline Benson MD [address] [facility] S[address]60 [place], [place] [phone] Dh, Mother Baby Discharge Disposition: Discharged to [...] LPCC - 06/22/2023 9:30 AM CDT Dept: [facility] Type of Service: Group Therapy Name of Group: Psychoeducation/Skills Group Provider/Group Carpet Floor Layer Apprentice: Claire Workman LPCC Date of Service: 06/22/2023 Start Time: 9:30 AM Stop Time: 10:15 AM Number of Group Members Present: 4 Location of Service: Face to Face at [facility] Session Content (Intervention): Welcomed any new [...]
--- OUTSIDE RECORDS SUMMARY | 2023-11-03 06:31 | XMS_ITS | Encounter Summary ---
Author Name Unknown Organization [facility] [place] Address [address] [place] [address] Phone Care Team Providers Care Client Experience Specialist Name Role Phone Unavailable Primary Care Provider Unavailabl e Reason for Visit * Prior Authorization (Routine) - Closed Specialty Diagnoses / Procedures Referred By Contac t Referred To Contact Psych Rehab Diagnoses Bipolar II disorder () Trauma and stressor-related disorder Procedures MOTHER BABY ENROLLMENT Jazmine Potter, [facility] [address] [place] [address] [address] Referral ID Status Reason Start Date Expiration Date Visits Re quested Visits Authorized [id number] Closed 05/09/2023 06/24/2023 105 105 Encounter Details Date Type Department Care Team Description 06/22/2023 10:15 AM CDT [facility] [address] [place] [address] [phone] Karoline Benson MD 701 [facility] S1 860 [place], [place] [phone] Dh, Mother Baby Discharge Disposition: Discharged to [...] LPCC - 06/22/2023 10:15 AM CDT Dept: [facility] Type of Service: Group Therapy Name of Group: Psychotherapy Process Group Provider/Group Account Director: Claire Workman LPCC Date of Service: 06/22/2023 Start Time: 10:15 AM Stop Time: 11:00 AM Number of Group Members Present: 5 Location of Service: Face to Face at [facility] Session Content of Today's Group: At [...]
--- OUTSIDE RECORDS SUMMARY | 2023-11-03 06:31 | XMS_ITS | Encounter Summary ---
Author Name Unknown Organization [facility] Address [address] [place] [address] Phone Care Team Providers Care Ceramic Tiler Name Role Phone Unavailable Primary Care Provider Unavailabl e Reason for Visit * Prior Authorization (Routine) - Closed Specialty Diagnoses / Procedures Referred By Contac t Referred To Contact Psych Rehab Diagnoses Bipolar II disorder () Trauma and stressor-related disorder Procedures MOTHER BABY ENROLLMENT Jazmine Potter, [facility] [address] [place] [address] [address] Referral ID Status Reason Start Date Expiration Date Visits Re quested Visits Authorized [id number] Closed 05/09/2023 06/24/2023 105 105 Encounter Details Date Type Department Care Team Description 06/22/2023 12:30 PM CDT [facility] [address] [place] [address] [phone] Karoline Benson MD 701 [facility] S1 860 [place], [place] [phone] Dh, Mother Baby Discharge Disposition: Discharged to [...] OTR/L - 06/22/2023 12:30 PM CDT Dept: [facility] Type of Service: Group Therapy Name of Group: Wellness Group Provider/Group Accounting Office Manager: Alisha Hardy OTR/L Date of Service: 06/22/2023 Start Time: 12:45 PM Stop Time: 1:30 PM Number of Group Members Present: 5 Location of Service: Face to Face at [facility] [employer] PROVIDED (if applicable): No Session Content [...]
--- OUTSIDE RECORDS SUMMARY | 2023-11-03 06:31 | XMS_ITS | Encounter Summary ---
Author Name Unknown Organization [facility] Address [address] [place] [address]. [place] [address] Phone Care Team Providers Care Lead Custodian Name Role Phone Unavailable Primary Care Provider Unavailabl e Encounter Details Date Type Department Care Team Description 06/23/2023 12:30 PM CDT Psych Rehab [facility] [address] [place] [address] [phone] Ray Esposito MD [address] [phone] Discharge Disposition: Discharged to home or self [...] MD - 06/23/2023 12:30 PM CDT 06/23/2023 [facility] - mother-baby day [facility]. Medication review. Recent chart notes reviewed on Epic - including most recent brief admission to [facility] in-patient psychiatry because of severe and unrelenting obsessional thoughts of harming her baby (06/08/23 - 06/15/23). Per therapy staff - (and confirmed by patient herself today) - Kristina is now living with her partner's family in [place] - until such time as she can summon the courage to [facility] [place] (which naturally had triggered a return of [...]
--- OUTSIDE RECORDS SUMMARY | 2023-11-03 06:31 | XMS_ITS | Encounter Summary ---
Author Name Unknown Organization [facility] Address 1 [place] [address] Phone Care Team Providers Care Solutions Market Consultant Name Role Phone Unavailable Primary Care Provider Unavailabl e Encounter Details Date Type Department Care Team Description 08/12/2023 10:00 AM CDT Telemedicine Psych Rehab [facility] [address] [place] [address] [phone] Claire Workman LPCC [address] [place], [place] [phone] Discharge Disposition: Discharged to home or self [...] LPCC - 08/12/2023 10:00 AM CDT Dept: [facility] Type of Service: Group Therapy Provider/Group Oil Boiler: Claire Workman LPCC Date of Service: 08/12/2023 [...] Provider's Physical Location: Onsite at [facility] Participants in this Telemedicine Visit other than the patient/provider and other group attendees included: N/A This visit started at: 10 AM and concluded at: 11:30 AM. Total time spent on this visit, including [id number] interaction, review of medical record, and documentation: 100 minutes. Patient consents to this service: Yes Group Description: Tuesday Connections group consists of a psychotherapy group with content from [place] of [employer]. Session Content of Today's Group: Topics [...]
--- OUTSIDE RECORDS SUMMARY | 2023-11-03 06:31 | XMS_ITS | Encounter Summary ---
Author Name Unknown Organization [facility] Address 1 [place] [address] Phone Care Team Providers Care Physician Practice Administrator Name Role Phone Unavailable Primary Care Provider Unavailabl e Encounter Details Date Type Department Care Team Description 07/15/2023 10:00 AM CDT Telemedicine Psych Rehab [facility] [address] [place] [address] [phone] Claire Workman LPCC [address] [place], [place] [address]265 Discharge Disposition: Discharged to home or self [...] - 07/15/2023 10:00 AM CDT Dept: [facility] Type of Service: Group Therapy Provider/Group Delicatessen Slicer: Claire Workman LPCC Date of Service: 07/15/2023 Start Time: 10:00 AM Stop Time: 11:30 AM Number of Group Members Present: 5 Name of Group: Tuesday Connections Group Frequency: Weekly Location of Service: Hybrid Group (some participants face to face and some some on video): If this option is selected, telemed statement needs to be added for those who were on video. Telemedicine: [employer] Video Visit: This telemedicine visit is conducted by audio and video technology between thepatient and provider. Informed consent was provided during e-check in and signed by patient. Patient was offered opportunity to ask any questions. Patient's Physical Location: Home Provider's Physical Location: Onsite at [facility] Participants in this Telemedicine Visit other than the patient/provided included: Group members This visit started at: 10 AM and concluded at: 11:30 AM. Group Description: Tuesday Connections group consists of a psychotherapy group with content from [place] of [employer]. Session Content of Today's [...]
--- OUTSIDE RECORDS SUMMARY | 2023-11-03 06:31 | XMS_ITS | Encounter Summary ---
Author Name Unknown Organization [facility] Address [address] [facility] [place] [address] Phone Care Team Providers Care Grain Elevator Agent Name Role Phone Unavailable Primary Care Provider Unavailabl e Reason for Visit * Reason Onset Date Comments Mother Baby - Mental Health Outreach 07/11/2023 Encounter Details Date Type Department Care Team Description 07/11/2023 Telephone [facility] [address] [place], [place] [phone] Claire Workman LPCC 701 [place], [place] [phone] Mother Baby - Mental Health Outreach Social [...]
--- OUTSIDE RECORDS SUMMARY | 2023-11-03 06:32 | XMS_ITS | Encounter Summary ---
Author Name Unknown Organization [facility] Address [address] [place] [address] Phone Care Team Providers Care Manager Electrical Name Role Phone Unavailable Primary Care Provider Unavailabl e Reason for Visit * Reason Comments Psych Medication Management Encounter Details Date Type Department Care Team Description 06/06/2023 10:00 AM CDT Psych Rehab [facility] 701 [place], [place] [phone] Karoline Benson MD 701 [facility] S1 [address] [place], [place] [address] Psych Medication Management Discharge Disposition: Discharged to [...] were not included. Mother Baby [facility], Psychiatry Visit Started the [facility] on: 05/09/23 Merry Rooney is a 23 y.o. mother of baby (Aidan born 05/03/23) and 2 year old son (Chuy). Referred by [facility] inpatient initially to the [facility]. Also admitted while she was in the program to [facility] ([place], [place]) 05/24-05/30/23. Cultural Context: white, Kazakh and Icelandic Pronouns: she/her/hers; Supports: Jesús -- supportive Therapist: ; PCP: ; OB-WELDING MACHINE OPERATOR: Antonio Ob; Autism Teacher: Feeding Method: mainly formula because milk supply [...] was in the program to [facility] ([place], [place]) 05/24-05/30/23. 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 mother of 2 following a harrowing course with psychotic symptoms and possible preeclampsia leading to transfer to [facility] ICU. Longitudinal course consistent with Complex Developmental Trauma and bipolar spectrum. Feeling better now after recent psy chiatric admission (05/24-) to [facility] for increased SI, paranoia, and auditory [...] individual and group therapy process in the [facility]. 6) Review old records. 7) Contact [...] when she was 4. Mother lived in [place]. 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 Legal: no had involvement with the legal system. The patient reports the following spiritual and/or cultural history: Kazakh and Icelandic background Relationship to her partner/father/co-parent of the [...]
--- OUTSIDE RECORDS SUMMARY | 2023-11-03 06:32 | XMS_ITS | Encounter Summary ---
Author Name Unknown Organization [facility] Address [address] [place] [address] Phone Care Team Providers Care Certified Income Tax Preparer Name Role Phone Unavailable Primary Care Provider Unavailabl e Reason for Visit * Prior Authorization (Routine) - Closed Specialty Diagnoses / Procedures Referred By Contac t Referred To Contact Psych Rehab Diagnoses Bipolar II disorder () Trauma and stressor-related disorder Procedures MOTHER BABY ENROLLMENT Jazmine Potter, [facility] [address] [place] [address] [address] Referral ID Status Reason Start Date Expiration Date Visits Re quested Visits Authorized [id number] Closed 05/09/2023 06/24/2023 105 105 Encounter Details Date Type Department Care Team Description 06/20/2023 12:30 PM CDT Psych [facility] [address] [place] [address] [phone] Karoline Benson MD 701 [facility] S1 [address] [place], [place] [address] Dh, Mother Baby Discharge Disposition: Discharged to [...] Miscellaneous Notes * Group Note - Alisha Hadry OTR/L - 06/20/2023 12:30 PM CDT Dept: [facility] Type of Service: Group Therapy Name of Group: Wellness Group Provider/Group Real Estate Developer: Alisha Hardy OTR/L Date of Service: 06/20/2023 Start Time: 12:45 PM Stop Time: 1:30 PM Number of Group Members Present: 4 Location of Service: Face to Face at [facility] RN MDS COORDINATOR SERVICES PROVIDED (if applicable): No Session [...]
--- OUTSIDE RECORDS SUMMARY | 2023-11-03 06:32 | XMS_ITS | Encounter Summary ---
Author Name Unknown Organization [facility] Address [address] [place] [address] Phone Care Team Providers Care Computer Typesetter Keyliner Name Role Phone Unavailable Primary Care Provider Unavailabl e Reason for Visit * Reason Comments Psych Medication Management Encounter Details Date Type Department Care Team Description 06/16/2023 10:00 AM CDT Psych Rehab [facility] 701 [place], [place] [phone] Karoline Benson MD 701 [facility] S1 860 [place], [place] [phone] Psych Medication Management Discharge Disposition: Discharged to [...] original note were not included. Mother Baby [facility], Psychiatry Visit Started the [facility] on: 05/09/23 ([place] [facility] [place] 06/08-06/15/23) Merry Rooney is a 23 y.o. mother of baby (Aidan born 05/03/23) and 2 year old son (Chuy). Referred by [facility] inpatient initially to the [facility]. Also admitted while she was in the program to [facility] ([place], [place]) 05/24-05/30/23. Cultural Context: white, Uzbek and Greek Pronouns: she/her/hers; Supports: [place] -- supportive Therapist: ; PCP: ; OB-NETBACKUP ADMINISTRATOR: Antonio Ob; Condenser Tube Tender: Feeding Method: mainly formula because milk supply [...] while she was in the program to [facility] ([place]) 05/24- 05/30/23. Multiple, recent ED visits for physical sx of anxiety as well as SI - mainly to [facility] ED (see 06/02/[address] Esposito for recent summary of ED courses). Admitted [place] [facility] [place] 06/08-06/15/23) Diagnostic Impression(s) Bipolar II Disorder, current episode depressed, severe with psychotic symptoms PTSD and (Complex Developmental Trauma) Unspecified anxiety (intrusive thoughts) Opioid and alcohol use disorders, by history Multiple closed head injuries and hx of seizure preeclampsia Assessment [place], caring, resilient 23 y.o. mother of 2 following a harrowing course with psychotic symptoms and possible preeclampsia leading to transfer to [facility] ICU. Longitudinal course consistent with Complex Developmental Trauma and bipolar spectrum leading to a psychiatric admission ( 05/24- to [facility]) and recent admission to 06/08-06/15/23 [...] [facility] [address] [place] [address] Transferrin 06/12/2023 293 200 - 360 mg/dL [...] when she was 4. Mother lived in [place]. 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 Legal: no had involvement with the legal system. The patient reports the following spiritual and/or cultural history: Uzbek and Greek background Relationship to her partner/father/co-parent of the [...]
--- OUTSIDE RECORDS SUMMARY | 2023-11-03 06:32 | XMS_ITS | Encounter Summary ---
Author Name Unknown Organization [facility] Address [address] [place] [address] Phone Care Team Providers Care Patient Services Clerk Name Role Phone Unavailable Primary Care Provider Unavailabl e Reason for Visit * Reason Onset Date Comments Mother Baby Documentation 06/08/2023 Encounter Details Date Type Department Care Team Description 06/08/2023 Telephone [facility] Family [facility] 701 [place], [place] [phone] Claire Workman [facility] 701 [facility] [place], [place] [phone] Mother Baby Documentation Social History Tobacco Use [...]
--- OUTSIDE RECORDS SUMMARY | 2023-11-03 06:32 | XMS_ITS | Encounter Summary ---
Author Name Unknown Organization [facility] Address [address] [place] [address] Phone Care Team Providers Care Shade Matcher Name Role Phone Unavailable Primary Care Provider [...]
--- OUTSIDE RECORDS SUMMARY | 2023-11-03 06:32 | XMS_ITS | Encounter Summary ---
Author Name Unknown Organization [facility] Address [address] [place] [address] Phone Care Team Providers Care Tire Cord Weaver Name Role Phone Unavailable Primary Care Provider Unavailabl e Reason for Visit * Prior Authorization (Routine) - Closed Specialty Diagnoses / Procedures Referred By Contac t Referred To Contact Psych Rehab Diagnoses Bipolar II disorder () Trauma and stressor-related disorder Procedures MOTHER BABY ENROLLMENT Jazmine Potter, [facility] [address] [place] [address] [address] Referral ID Status Reason Start Date Expiration Date Visits Re quested Visits Authorized [id number] Closed 05/09/2023 06/24/2023 105 105 Encounter Details Date Type Department Care Team Description 06/16/2023 1:45 PM CDT Psych [facility] [address] [place] [address] [phone] Karoline Benson MD 701 [facility] S1 [address]60 [place], [place] [phone] Dh, Mother Baby Discharge Disposition: Discharged to [...] LPCC - 06/16/2023 1:45 PM CDT Dept: [facility] Family [facility] Type of Service: Group Therapy Name of Group: Psychoeducation/Skills Group Provider/Group Candy Cooker Helper: Claire Workman LPCC Date of Service: 06/16/2023 Start Time: 1:45 PM Stop Time: 2:30 PM Number of Group Members Present: 6 Location of Service: Face to Face at [facility] Session Content (Intervention): The purpose of this [...]
--- OUTSIDE RECORDS SUMMARY | 2023-11-03 06:32 | XMS_ITS | Encounter Summary ---
Author Name Unknown Organization [facility] Address [address] [place] [address] Phone Care Team Providers Care Behavioral Health Aide Name Role Phone Unavailable Primary Care Provider Unavailabl e Reason for Visit * Prior Authorization (Routine) - Closed Specialty Diagnoses / Procedures Referred By Contac t Referred To Contact Psych Rehab Diagnoses Bipolar II disorder () Trauma and stressor-related disorder Procedures MOTHER BABY ENROLLMENT Jazmine Potter, [facility] [address] [place] [address] [address] Referral ID Status Reason Start Date Expiration Date Visits Re quested Visits Authorized [id number] Closed 05/09/2023 06/24/2023 105 105 Encounter Details Date Type Department Care Team Description 06/07/2023 1:45 PM CDT Psych Rehab [facility] [address] [place] [phone] Dh, Mother Baby Discharge Disposition: Discharged to [...] LPCC - 06/07/2023 1:45 PM CDT Dept: [facility] Type of Service: Group Therapy Name of Group: Psychoeducation/Skills Group Provider/Group Banking Services Advisor: Claire Workman LPCC Date of Service: 06/07/2023 Start Time: 1:45 PM Stop Time: 2:30 PM Number of Group Members Present: 7 Location of Service: Face to Face at [facility] Session Content (Intervention): The purpose of this group was to provide education through information-sharing and facilitated group discussion. Handouts were provided and covered in detail. Skills taught today included: Parenting Education (describe [place] of Security Chapter 5) The patient???s response [...]
--- OUTSIDE RECORDS SUMMARY | 2023-11-03 06:32 | XMS_ITS | Encounter Summary ---
Author Name Unknown Organization [facility] Address [address] [facility] [place] [address] Phone Care Team Providers Care Continuity Clerk Name Role Phone Unavailable Primary Care Provider Unavailabl e Reason for Visit * Reason Comments Mother Baby - Family Session * Auth/Cert (Routine) Specialty Diagnoses / Procedures Referred By Contac t Referred To Contact PSYCHIATRY Diagnoses Bipolar II disorder () PTSD (post-traumatic stress disorder) Suicidal ideation Anxiety disorder, unspecified type Ildefonso Aviles MD 701 [place] [address] Psychiatry 3 Inpt (B5) 701 [facility] B5.360 [place] [address] Referral ID Status Reason Start Date Expiration Date Visits Re quested Visits Authorized [id number] 1 1 Encounter Details Date Type Department Care Team Description 06/15/2023 3:30 PM CDT Telemedicine [facility] 701 [place], [place] [address] Noy Chen, PUBLICATION EDITOR 701 [facility] [place], [place] [phone] Mother Baby - Family Session Discharge Disposition: [...] this encounter Progress Notes * Noy Chen, PUBLICATION EDITOR - 06/15/2023 3:30 PM CDT [facility] Progress Note Date of Service: 06/15/2023 Start Time: 3:30pm Stop Time: 4:30pm Location of Visit: Telemedicine: [employer] Video Visit: This telemedicine visit is conducted by audio and video technology between thepatient and provider. Informed consent was provided during e-check in and signed by patient. Patient was offered opportunity to ask any questions. Patient's Physical Location: Vehicle Provider's Physical Location: Onsite at [facility] Participants in this Visit other than the patient/provider included: Patient's partner. Pt was not present during today's visit. PROGRAM INSTRUCTOR SERVICES PROVIDED (if applicable): No Type of [...] Plan: 1. Psychotherapy: Pt to continue in [facility] programming; partner to engage in brief, [...]
--- OUTSIDE RECORDS SUMMARY | 2023-11-03 06:32 | XMS_ITS | Encounter Summary ---
Author Name Unknown Organization [facility] Address [address] [place] [phone] Phone Care Team Providers Care Commercial Green Building Architect Name Role Phone Unavailable Primary Care Provider Unavailabl e Reason for Visit * Reason Onset Date Comments Psych Medication Management 06/08/2023 Encounter Details Date Type Department Care Team Description 06/08/2023 11:30 AM CDT Psych Rehab [facility] [address] [place] [address] [phone] Karissa Mejia MD [address] [place] [address] [phone] Psych Medication Management Discharge Disposition: Discharged to [...] original note were not included. Mother Baby [facility], Psychiatry Visit Started the [facility] on: 05/09/23 Merry Rooney is a 23 y.o. mother of baby (Aidan born 05/03/23) and 2 year old son (Chuy). Referred by [facility] inpatient initially to the [facility]. Also admitted while she was in the program to [facility] ([place], [place]) 05/24-05/30/23. Cultural Context: white, Welsh and Portuguese Pronouns: she/her/hers; Supports: [place] -- supportive Therapist: ; PCP: ; OB-DOVETAILER: Antonio Ob; Semi Driver: Feeding Method: mainly formula because milk supply [...] the program to [facility] ([place], [place]) 05/24- 05/30/23. Multiple, recent ED visits for physical sx of anxiety as well as SI - mainly to [facility] ED (see 06/02/[address] Esposito for recent summary of ED courses). Diagnostic Impression(s) Bipolar II Disorder, current episode depressed, severe with psychotic symptoms PTSD and (Complex Developmental Trauma) Unspecified anxiety (intrusive thoughts) Opioid and alcohol use disorders, by history Multiple closed head injuries and hx of seizure preeclampsia Assessment [place], caring, resilient 23 y.o. mother of 2 following a harrowing course with psychotic symptoms and possible preeclampsia leading to transfer to [facility] ICU. Longitudinal course consistent with Complex Developmental Trauma and bipolar spectrum. Recent psychiatric admission (05/24- ) to [facility] and multiple, subsequent visits to outside ED [...] when she was 4. Mother lived in [place]. 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 Legal: no had involvement with the legal system. The patient reports the following spiritual and/or cultural history: Welsh and Portuguese background Relationship to her partner/father/co-parent of the [...]
--- OUTSIDE RECORDS SUMMARY | 2023-11-03 06:32 | XMS_ITS | Encounter Summary ---
Author Name Unknown Organization [facility] Address [address] [place] [address] Phone Care Team Providers Care Assistant Education Director Name Role Phone Unavailable Primary Care Provider Unavailabl e Reason for Visit * Prior Authorization (Routine) - Closed Specialty Diagnoses / Procedures Referred By Contac t Referred To Contact Psych Rehab Diagnoses Bipolar II disorder () Trauma and stressor-related disorder Procedures MOTHER BABY ENROLLMENT Jazmine Potter, [facility] [address] [place] [address] [address] [address] Referral ID Status Reason Start Date Expiration Date Visits Re quested Visits Authorized [id number] Closed 05/09/2023 06/24/2023 105 105 Encounter Details Date Type Department Care Team Description 06/20/2023 1:45 PM CDT [facility] [address] [place] [address] [phone] Karoline Benson MD 701 [facility] S1 [address] [place], [place] [phone] Dh, Mother Baby Discharge Disposition: Discharged to [...] LICSW - 06/20/2023 1:45 PM CDT Dept: [facility] Family [facility] Type of Service: Group Therapy Name of Group: Psychoeducation/Skills Group Provider/Group Illuminating Engineer: Jazmine Potter LICSW Date of Service: 06/20/2023 Start Time: 1:45 PM Stop Time: 2:30 PM Number of Group Members Present: 3 Location of Service: Face to Face at [facility] PARACHUTE TAPER SERVICES PROVIDED (if applicable): No Session Content [...]
--- OUTSIDE RECORDS SUMMARY | 2023-11-03 06:32 | XMS_ITS | Encounter Summary ---
Author Name Unknown Organization [facility] Address [address] [place] [address] Phone Care Team Providers Care Bulk Materials Handling Plant Operator Name Role Phone Unavailable Primary Care Provider Unavailabl e Reason for Visit * Reason Comments Mother Baby - Family Session Encounter Details Date Type Department Care Team Description 06/07/2023 12:15 PM CDT Telemedicine [facility] 701 [place], [place] [phone] Claire Workman, [facility] 701 [place], [place] [phone] Karoline Benson MD 701 [facility] S1 [address] [place], [place] [address] Mother Baby - Family Session Discharge Disposition: [...] encounter Progress Notes * Claire Workman, [facility] - 06/07/2023 12:15 PM CDT [facility] Progress Note Date of Service: 06/07/2023 Start Time: 12:15 pm Stop Time: 12:52 pm Location of Visit: Hybrid (pt and infant daughter in person, pt's present via telehealth) Telemedicine: [employer] Video Visit: This telemedicine visit is conducted by audio and video technology between thepatient and provider. Informed consent was provided during e-check in and signed by patient. Patient was offered opportunity to ask any questions. Patient's Physical Location: Home Provider's Physical Location: Onsite at [facility]Affili[facility] Participants in this Telemedicine Visit other than [...]
--- OUTSIDE RECORDS SUMMARY | 2023-11-03 06:32 | XMS_ITS | Encounter Summary ---
Author Name Unknown Organization [facility] Address [address] [place] [phone] Phone Care Team Providers Care Cpc Name Role Phone Unavailable Primary Care Provider Unavailabl e Reason for Visit * Prior Authorization (Routine) - Closed Specialty Diagnoses / Procedures Referred By Contac t Referred To Contact Psych Rehab Diagnoses Bipolar II disorder () Trauma and stressor-related disorder Procedures MOTHER BABY ENROLLMENT Jazmine Potter, [facility] [address] [place] [address] [address] Referral ID Status Reason Start Date Expiration Date Visits Re quested Visits Authorized [id number] Closed 05/09/2023 06/24/[phone] Encounter Details Date Type Department Care Team Description 06/16/2023 11:00 AM CDT Psych [facility] [address] [place] [address] [phone] Karoline Benson MD 701 [facility] [address] [place], [place] [phone] Dh, Mother Baby Discharge Disposition: Discharged to [...] PT - 06/16/2023 11:00 AM CDT Dept: [facility] Family [facility] Type of Service: Group Therapy Provider/Group Account Manager Relief: Sara Cunha PT Date of Service: 06/16/2023 Start Time: 11:00 AM Stop Time: 12:00 PM Number of Group Members Present: 5 Name of Group: Movement Location of Service: Face to Face at a [facility] [employer] PROVIDED (if applicable): No Session Content (Intervention) (including goal/intended outcome): Mindful Movement. Encouraged group members to participate in mind-body skills facilitated by [facility] Trauma-Informed Yoga providers. Trauma-sensitive mind-body skills and [...]
--- OUTSIDE RECORDS SUMMARY | 2023-11-03 06:32 | XMS_ITS | Encounter Summary ---
Author Name Unknown Organization [facility] Address [address] [place] [address] Phone Care Team Providers Care Director Utilization Management Name Role Phone Unavailable Primary Care Provider Unavailabl e Reason for Visit * Reason Onset Date Comments Mother Baby - Mental Health Outreach 06/17/2023 Encounter Details Date Type Department Care Team Description 06/17/2023 Telephone [facility] Family [facility] [address] [place], [place] [phone] Regina Romero M[facility] [address] [place] [address] Mother Baby - Mental Health Outreach Social [...]
--- OUTSIDE RECORDS SUMMARY | 2023-11-03 06:32 | XMS_ITS | Encounter Summary ---
Author Name Unknown Organization [facility] Address [address] [place] [address] Phone Care Team Providers Care Cleaning Professional Name Role Phone Unavailable Primary Care Provider Unavailabl e Reason for Visit * Prior Authorization (Routine) - Closed Specialty Diagnoses / Procedures Referred By Contac t Referred To Contact Psych Rehab Diagnoses Bipolar II disorder () Trauma and stressor-related disorder Procedures MOTHER BABY ENROLLMENT Jazmine Potter, [facility] [address] [place] [address] [address] Referral ID Status Reason Start Date Expiration Date Visits Re quested Visits Authorized [id number] Closed 05/09/2023 06/24/[phone] Encounter Details Date Type Department Care Team Description 06/20/2023 11:00 AM CDT [facility] [address] [place] [address] [phone] Karoline Benson MD 701 [facility] [address] [place], [place] [address] Dh, Mother Baby Discharge Disposition: Discharged to [...] LPCC - 06/20/2023 11:00 AM CDT Dept: [facility] Type of Service: Group Therapy Name of Group: Psychoeducation/Skills Group Provider/Group Cardiologist: Claire Workman LPCC Date of Service: 06/20/2023 Start Time: 11:15 AM Stop Time: 12:00 PM Number of Group Members Present: 3 Location of Service: Face to Face at [facility] Session Content (Intervention): The purpose of this group was to provide education through information-sharing and facilitated group discussion. Handouts were provided and covered in detail. Skills taught today included: Parenting Education (describe [place] [employer] [place] [address]) The patient???s response [...]
--- OUTSIDE RECORDS SUMMARY | 2023-11-03 06:32 | XMS_ITS | Encounter Summary ---
Author Name Unknown Organization [facility] Address [address] [place] [phone] Phone Care Team Providers Care It Solutions Architect Name Role Phone Unavailable Primary Care Provider Unavailabl e Reason for Visit * Prior Authorization (Routine) - Closed Specialty Diagnoses / Procedures Referred By Contac t Referred To Contact Psych Rehab Diagnoses Bipolar II disorder () Trauma and stressor-related disorder Procedures MOTHER BABY ENROLLMENT Jazmine Potter, [facility] [address] [place] [id number] [address] Referral ID Status Reason Start Date Expiration Date Visits Re quested Visits Authorized [id number] Closed 05/09/2023 06/24/[phone] Encounter Details Date Type Department Care Team Description 06/16/2023 9:30 AM CDT Psych [facility] [address] [place] [address] [phone] Karoline Benson MD 701 [facility] [address] [place], [place] [phone] Dh, Mother Baby Discharge Disposition: Discharged to [...]
--- OUTSIDE RECORDS SUMMARY | 2023-11-03 06:32 | XMS_ITS | Encounter Summary ---
Author Name Unknown Organization [facility] Address [address] [place] [phone] Phone Care Team Providers Care Bioinformatics Computer Scientist Name Role Phone Unavailable Primary Care [...]
--- OUTSIDE RECORDS SUMMARY | 2023-11-03 06:32 | XMS_ITS | Encounter Summary ---
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 qjpedkyl-bgqvqlsg-xrgykgbza interaction triangle. Group today focused : Managing thoughts, feelings, and behaviors. The cognitive model was introduced. The concept of cognitive distortions introduced. Metal Furniture Assembly Supervisor provided and personal examples were used to [...] of 7%,normal ferritin. Rosa Astudillo DO PGY-2 Fisheries Enforcement Officer * Nursing Assessment - Cyndie Gabriel RN [...] MURPHY says she will reach out to educational programming director to see if there can be an [...] phone and she did not have a chair mechanic. She also doesn't feel comfortable pumping in [...] visit tomorrow and will bring her phone chair mechanic. LC talked to nursing staff. Nurse says [...] 3 hours -Drinking and eating more -Getting chair mechanic for phone to charge for pictures and [...] to page if you have questions. ++++++++++++++++++++++++++++++++++++++++++++++++++++++++++++++++ FOREIGN TRADE TEACHER PRESENT? NO LANGUAGE: Sierra Leonean [50] MEDICATIONS: No current facility-administered medications on [...] Counseling/Coordination/Education time 20 minutes. ALEXANDER Jin Services [phone] ([place]) * Nursing Assessment - Micha Yan [...] after she had been seen at the [facility] due to increased suicidal [...] CDT) Iron 32(L) 35 - 145 mcg/dL [facility] Blood 06/12/2023 8:27 AM CDT 06/12/2023 8:50 AM CDT Mervin Middleton MD LABORATORY [facility] [address] [address] * (ABNORMAL) TRANSFERRIN (INCLUDES TIBC) (06/12/2023 8:27 AM CDT) Transferrin 293 200 - 360 mg/dL [facility] IBC 437 298 - 536 mcg/dL [facility] Iron Saturation Percent 7(L) 20 - 50 % [facility] Blood 06/12/2023 8:27 AM CDT 06/12/2023 8:50 AM CDT Mervin Middleton MD LABORATORY Performing Organization Address City/[facility] Co de Phone Number [facility] [address] [address] * FERRITIN (06/12/2023 8:27 AM CDT) Ferritin 18.9 13.0 - 150.0 ng/mL [facility] Comment: Test Performed by: [facility] [address] [place] [address] Blood 06/12/2023 8:27 AM CDT 06/12/2023 8:50 AM CDT Mervin Middleton MD LABORATORY Performing Organization Address [facility] Co de Phone Number [facility] [address] [address] * (ABNORMAL) PANEL LIPID (06/11/2023 8:44 AM CDT) HDL 46(L) >=50 mg/dL [facility] Comment: Interpretive Data Normal > 40 Male > 50 Female Cholesterol 152 <=200 mg/dL [facility] Comment: Interpretive Data <200 Desirable 200-239 Borderline high >=240 High Triglyceride 104 <=150 mg/dL [facility] Comment: Interpretive Data <150 Normal 150-199 Borderline high 200-499 High >=500 Very high Calc LDL 85 <=100 mg/dL [facility] Comment: Interpretive Data <100 Desirable 100-129 Above desirable 130-159 Borderline high 160-189 High >=190 Very high Non-HDL Cholesterol Calculated 106 <=130 mg/dL [facility] Comment: Interpretive Data <130 Desirable 130-159 Above desirable 160-189 Borderline high 190-219 High >=220 Very high Blood 06/11/2023 8:44 AM CDT 06/11/2023 9:10 AM CDT Narrative [facility] - 06/11/2023 9:35 AM CDT Fasting: Yes Mervin Middleton MD LABORATORY [facility] [address] [address] * CT HEAD NO IV CONTRAST (06/10/2023 [...] 909 (Given - Provider: Eryn Romero RN) [place] MED REC REVIEW BY PHARMACY(Linked Group 1) [...]
--- OUTSIDE RECORDS SUMMARY | 2023-11-03 06:33 | XMS_ITS | Encounter Summary ---
Author Name Unknown Organization [facility] Address [address] [facility] [place] [address] Phone Care Team Providers Care Pastry Cook Name Role Phone Unavailable Primary Care Provider Unavailabl e Encounter Details Date Type Department Care Team Description 05/19/2023 12:00 PM CDT Psych Rehab [facility] [address] [place] [address] [phone] Ray Esposito MD [address] [address] Discharge Disposition: Discharged to home or self [...] 12:00 PM CDT Not seen by this bond underwriter in [facility] today. documented in this encounter Plan of Treatment Not on file documented as of this encounter Visit Diagnoses Not on filedocumented in this encounter Additional Health Concerns Assessment Noted Time PHQ-9 Depression Total Score: 12 023 3:14 PM CDT PHQ-2 Depression Total Score: 2 05/18/20 23 3:14 PM CDT documented as of this encounter
--- OUTSIDE RECORDS SUMMARY | 2023-11-03 06:33 | XMS_ITS | Encounter Summary ---
Author Name Unknown Organization [facility] Address [address] [place] [address] Phone Care Team Providers Care Family Law Mediator Name Role Phone Unavailable Primary Care Provider Unavailabl e Encounter Details Date Type Department Care Team Description 06/02/2023 10:00 AM CDT Psych Rehab [facility] [address] [place] [phone] Ray Esposito MD [address] [address] Discharge Disposition: Discharged to home or self [...] MD - 06/02/2023 10:00 AM CDT 06/02/2023 [facility] Medication follow-up Interim history - seen by this technical proposal writer previously on 05/23/23 - and subsequently by on 06/01/23. After delivery of her baby girl on 05/03/23 had returned home - but had then experienced visual hallucinations. Her then called 911 and she was hospitalized in [place], [place]. While there her BP was very unstable and she had a seizure (imaging apparently demonstrated brain swelling and because of very elevated BP she was then airlifted to [facility]. She was discharged home - then was seen on 05/23/23 ( [facility]) at which time she described worrisome symptoms which were felt to possibly represent akathesia. On a trial basis, Risperidone (even though in low dosage) was discontinued and prn Hydroxyzine substituted. However on 05/24/23 she became acutely paranoid and delusional - and was then transferred to [place], [place] ([facility]) - and stabilized there (on Olanzapine ) - eventually [place] to [place] on 05/30/23. Later on 06/01/23 she was again evaluated at the [facility] mother-baby clinic - by Karissa Mejia M.D. - who noted that patient had been again seen in a local urgent-care clinic (in [place], [place]) - where BP was elevated and [...] review. Today Merry is seen by this technical proposal writer in the [facility]. All recent notes are reviewed. Fully [...] legs. However on formal evaluation by this technical proposal writer today, there is no noticeable tremor [...] dosage increases likely needed [facility] [place] - continue Lamictal titration (Guanfacine discontinued). - [...]
--- OUTSIDE RECORDS SUMMARY | 2023-11-03 06:33 | XMS_ITS | Encounter Summary ---
Author Name Unknown Organization [facility] Address [address] [place] [address] Phone Care Team Providers Care Shank Boner Name Role Phone Unavailable Primary Care Provider Unavailabl e Reason for Visit * Prior Authorization (Routine) - Closed Specialty Diagnoses / Procedures Referred By Contac t Referred To Contact Psych Rehab Diagnoses Bipolar II disorder () Trauma and stressor-related disorder Procedures MOTHER BABY ENROLLMENT Jazmine Potter, [facility] [address] [place] [address] [address] Referral ID Status Reason Start Date Expiration Date Visits Re quested Visits Authorized [id number] Closed 05/09/2023 06/24/2023 105 105 Encounter Details Date Type Department Care Team Description 05/23/2023 1:45 PM CDT [facility] [address] [place] [address] [phone] Karoline Benson MD 701 [facility] S[address]60 [place], [place] [phone] Dh, Mother Baby Discharge Disposition: Discharged to [...] LICSW - 05/23/2023 1:45 PM CDT Dept: [facility] Type of Service: Group Therapy Name of Group: Psychoeducation/Skills Group Provider/Group Director Of Player Personnel: Jazmine Potter LICSW Date of Service: 05/23/2023 Start Time: 1:45 PM Stop Time: 2:30 PM Number of Group Members Present: 5 Location of Service: Face to Face at [facility] ERGONOMIST SERVICES PROVIDED (if applicable): No Session Content [...]
--- OUTSIDE RECORDS SUMMARY | 2023-11-03 06:33 | XMS_ITS | Encounter Summary ---
Author Name Unknown Organization [facility] Address [address] [place] [address] Phone Care Team Providers Care Billposter Name Role Phone Unavailable Primary Care Provider Unavailabl e Reason for Visit * Reason Onset Date Comments Psych Medication Management 05/18/2023 Encounter Details Date Type Department Care Team Description 05/18/2023 11:00 AM CDT Psych Rehab [facility] [address] [place] [address] [phone] Karissa Mejia MD [address] [place] [address] [phone] Psych Medication Management Discharge Disposition: Discharged to [...] 2 year old son (Chuy). Referred by [facility] inpatient Cultural Context: white, Italian and Faroese Pronouns: she/her/hers; Supports: Espinosa -- supportive Therapist: ; PCP: ; OB-TAX ASSOCIATE ATTORNEY: Antonio Ob; Grading Supervisor: Feeding Method: breast and bottle feeding with [...] possible pr eeclampsia leading to transfer to [facility] ICU. Seen by psychiatry (Dr Ortiz) at [facility], discontinued from her sertraline and started on [...] formula) 3) LABS: Will review labs in [facility] 4) Continue to monitor symptoms 5) Engage patient in individual and group therapy process in the [facility]. 6) Review old records. 7) Contact [...] when she was 4. Mother lived in [place]. 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 Legal: no had involvement with the legal system. The patient reports the following spiritual and/or cultural history: Italian and Faroese background Relationship to her partner/father/co-parent of the [...]
--- OUTSIDE RECORDS SUMMARY | 2023-11-03 06:33 | XMS_ITS | Encounter Summary ---
Author Name Unknown Organization [facility] Address [address] [place] [phone] Phone Care Team Providers Care Recycling Center Operator Name Role Phone Unavailable Primary Care Provider Unavailabl e Reason for Visit * Prior Authorization (Routine) - Closed Specialty Diagnoses / Procedures Referred By Contac t Referred To Contact Psych Rehab Diagnoses Bipolar II disorder () Trauma and stressor-related disorder Procedures MOTHER BABY ENROLLMENT Jazmine Potter, [facility] [address] [place] [address] [address] Referral ID Status Reason Start Date Expiration Date Visits Re quested Visits Authorized [id number] Closed 05/09/2023 06/24/2023 105 105 Encounter Details Date Type Department Care Team Description 06/02/2023 12:30 PM CDT Psych [facility]hab [facility] [address] [place] [address] [phone] Karoline Benson MD [address] [facility] S[address]60 [place], [place] [phone] Dh, Mother Baby Discharge Disposition: Discharged to [...] LPCC - 06/02/2023 12:30 PM CDT Dept: [facility] Type of Service: Group Therapy Name of Group: Psychoeducation/Skills Group Provider/Group Opto Mechanical Technician: Claire Workman LPCC Date of Service: 06/02/2023 Start Time: 12:45 PM Stop Time: 1:30 PM Number of Group Members Present: 4 Location of Service: Face to Face at [facility] Session Content (Intervention): The purpose of this group was to provide education through information-sharing and facilitated group discussion. Handouts were provided and covered in detail. Skills taught today included: Parenting Education (describe [place] of Security Chapter 4) The patient???s response [...]
--- OUTSIDE RECORDS SUMMARY | 2023-11-03 06:33 | XMS_ITS | Encounter Summary ---
Author Name Unknown Organization [facility] Address [address] [place] [address] Phone Care Team Providers Care Analysis Manager Name Role Phone Unavailable Primary Care Provider Unavailabl e Reason for Visit * Reason Onset Date Comments Psych Medication Management 06/01/2023 * Prior Authorization (Routine) - Closed Specialty Diagnoses / Procedures Referred By Bernardo belle Referred To Contact Psych Rehab Diagnoses Bipolar II disorder () Trauma and stressor-related disorder Procedures MOTHER BABY ENROLLMENT Jazmine Potter, [facility] [address] [place] [address] [address] Referral ID Status Reason Start Date Expiration Date Visits Re quested Visits Authorized [id number] Closed 05/09/2023 06/24/2023 105 105 Encounter Details Date Type Department Care Team Description 06/01/2023 10:00 AM CDT [facility] [address] [place] [address] [phone] Karissa Mejia MD 701 [place], [place] 380695 Psych Medication Management Discharge Disposition: Discharged to [...] note were not included. Mother Baby [facility], Psychiatry Visit Started the [facility] on: 05/09/23 Merry Rooney is a 23 y.o. mother of baby (Aidan born 05/03/23) and 2 year old son (Chuy). Referred by [facility] Cultural Context: white, Saudi Arabian and Yakut Pronouns: she/her/hers; Supports: Espinosa -- supportive Therapist: ; PCP: ; OB-CENTER REP: Antonio Ob; Travel Registered Nurse Pacu: Feeding Method: breast and bottle feeding with [...] symptoms and [facility]. Long[facility] course consistent with Complex Developmental [...] individual and group therapy process [facility]. 6) Review old records. 7) Contact [...] she was 4. Mother lived in [place]. 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 Legal: no had involvement with the legal system. The patient reports the following spiritual and/or cultural history: Saudi Arabian and Yakut background Relationship to her partner/father/co-parent of the [...]
--- OUTSIDE RECORDS SUMMARY | 2023-11-03 06:33 | XMS_ITS | Encounter Summary ---
Author Name Unknown Organization [facility] Address [address] [place] [address] Phone Care Team Providers Care Load Blocker Name Role Phone Unavailable Primary Care Provider Unavailabl e Reason for Visit * Prior Authorization (Routine) - Closed Specialty Diagnoses / Procedures Referred By Contac t Referred To Contact Psych Rehab Diagnoses Bipolar II disorder () Trauma and stressor-related disorder Procedures MOTHER BABY ENROLLMENT Jazmine Potter, [facility] [address] [place] [address] [address] Referral ID Status Reason Start Date Expiration Date Visits Re quested Visits Authorized [id number] Closed 05/09/2023 06/24/2023 105 105 Encounter Details Date Type Department Care Team Description 05/19/2023 1:30 PM CDT [facility] [address] [place] [address] [phone] Karoline Benson MD 701 [facility] S[address]60 [place], [place] [phone] Dh, Mother Baby Discharge Disposition: Discharged to [...] LPCC - 05/19/2023 1:30 PM CDT Dept: [facility] Type of Service: Group Therapy Name of Group: Psychoeducation/Skills Group Provider/Group Central Lab Technician: Claire Workman LPCC Date of Service: 05/19/2023 [...]
--- OUTSIDE RECORDS SUMMARY | 2023-11-03 06:33 | XMS_ITS | Encounter Summary ---
Author Name Unknown Organization [facility] Address [address] [place] [address] Phone Care Team Providers Care Hvac Services Professional Name Role Phone Unavailable Primary Care Provider Unavailabl e Reason for Visit * Prior Authorization (Routine) - Closed Specialty Diagnoses / Procedures Referred By Contac t Referred To Contact Psych Rehab Diagnoses Bipolar II disorder () Trauma and stressor-related disorder Procedures MOTHER BABY ENROLLMENT Jazmine Potter, [facility] [address] [place] [address] [address] Referral ID Status Reason Start Date Expiration Date Visits Re quested Visits Authorized [id number] Closed 05/09/2023 06/24/2023 105 105 Encounter Details Date Type Department Care Team Description 05/23/2023 12:30 PM CDT [facility] [address] [place] [address] [phone] Karoline Benson MD 701 [facility] S[address]60 [place], [place] [phone] Dh, Mother Baby Discharge Disposition: Discharged to [...] RN - 05/23/2023 12:30 PM CDT Dept: [facility] Type of Service: Group Therapy Provider/Group Assistant Pressman: Kiana Borges RN Date of Service: 05/23/2023 Start Time: 12:45 PM Stop Time: 1:30 PM Number of Group Members Present: 6 Name of Group: Psycho education Location of Service: Face to Face at [facility] SALES AND LEASING AGENT SERVICES PROVIDED (if applicable): No Session Content of Today's Group (including goal/intended outcome): Medications. The patient's response to the intervention: Kiana Borges RN Name of Group: Psycho education Location of Service: Face to Face at [facility] SALES AND LEASING AGENT SERVICES PROVIDED (if applicable): No Session [...] present with her. P: To continue with [facility]. Encourage follow up in psychotherapy group [...]
--- OUTSIDE RECORDS SUMMARY | 2023-11-03 06:33 | XMS_ITS | Encounter Summary ---
Author Name Unknown Organization [facility] Address [address] [place] [address] Phone Care Team Providers Care Oracle Adf Developer Name Role Phone Unavailable Primary Care Provider Unavailabl e Encounter Details Date Type Department Care Team Description 05/23/2023 10:00 AM CDT Psych Rehab [facility] [address] [place] [address] Ray Esposito MD [address] [address] Discharge Disposition: Discharged to home or self [...] MD - 05/23/2023 10:00 AM CDT 05/23/2023 [facility]-baby day [facility] ([facility]) Medication follow-up. Patient seen in-person today. Medical records reviewed (Epic). Recent clinical status discussed with therapy staff. Start time: 10:00 a.m. Finish time: 10:30 a.m. Interviewed in-person in [facility] today. Seen together with her baby [...] (prescription called in to [facility] in [place]) - continue Guanfacine (and Nifedipine basically on a prn basis). Ray Esposito M.D. documented in this encounter Miscellaneous Notes * Group Note - Jazmine Potter LICSW - 05/23/2023 10:00 AM CDT Dept: [facility] Type of Service: Group Therapy Name of Group: Psychoeducation/Skills Group Provider/Group Boatswains Mate: Jazmine Potter LICSW Date of Service: 05/23/2023 Start Time: 9:30 AM Stop Time: 10:15 AM Number of Group Members Present: 5 Location of Service: Face to Face at [facility] GLASS BLOCK INSTALLER SERVICES PROVIDED (if applicable): No Session Content [...]
--- OUTSIDE RECORDS SUMMARY | 2023-11-03 06:33 | XMS_ITS | Encounter Summary ---
Author Name Unknown Organization [facility] Address [address] [place] [address] Phone Care Team Providers Care Pre Owned Sales Manager Name Role Phone Unavailable Primary Care Provider Unavailabl e Reason for Visit * Prior Authorization (Routine) - Closed Specialty Diagnoses / Procedures Referred By Contac t Referred To Contact Psych Rehab Diagnoses Bipolar II disorder () Trauma and stressor-related disorder Procedures MOTHER BABY ENROLLMENT Jazmine Potter, [facility] [address] [place] [phone] [address] Referral ID Status Reason Start Date Expiration Date Visits Re quested Visits Authorized [id number] Closed 05/09/2023 06/24/2023 105 105 Encounter Details Date Type Department Care Team Description 06/02/2023 1:45 PM CDT Psych [facility] [address] [place] [address] [phone] Karoline Benson MD 701 [facility] S1 860 [place], [place] [phone] Dh, Mother Baby Discharge Disposition: Discharged to [...] encounter Miscellaneous Notes * Group Note - lCaire Workman LPCC - 06/02/2023 1:45 PM CDT Dept: [facility] Type of Service: Group Therapy Name of Group: Psychoeducation/Skills Group Provider/Group Risk Management Analyst: Claire Workman LPCC Date of Service: 06/02/2023 Start Time: 1:45 PM Stop Time: 2:30 PM Number of Group Members Present: 3 Location of Service: Face to Face at [facility] Session Content (Intervention): The purpose [...]
--- OUTSIDE RECORDS SUMMARY | 2023-11-03 06:33 | XMS_ITS | Encounter Summary ---
Author Name Unknown Organization [facility] Address [address] [place] [address] Phone Care Team Providers Care Measurement Specialist Name Role Phone Unavailable Primary Care Provider Unavailabl e Reason for Visit * Reason Comments Blood Pressure Check Encounter Details Date Type Department Care Team Description 05/18/[address] [facility] [address] [place] [address] [phone] Kiana Borges RN [facility] 701 [place] [address] Blood Pressure Check Social History Tobacco Use [...]
--- OUTSIDE RECORDS SUMMARY | 2023-11-03 06:33 | XMS_ITS | Encounter Summary ---
Author Name Unknown Organization [facility] Address [address] [place] [address] Phone Care Team Providers Care Income Tax Analyst Name Role Phone Unavailable Primary Care Provider Unavailabl e Reason for Visit * Prior Authorization (Routine) - Closed Specialty Diagnoses / Procedures Referred By Contac t Referred To Contact Psych Rehab Diagnoses Bipolar II disorder () Trauma and stressor-related disorder Procedures MOTHER BABY ENROLLMENT Jazmine Potter, [facility] [address] [place] [address] [address] Referral ID Status Reason Start Date Expiration Date Visits Re quested Visits Authorized [id number] Closed 05/09/2023 06/24/2023 105 105 Encounter Details Date Type Department Care Team Description 06/06/2023 9:30 AM CDT [facility] [address] [place] [address] [phone] Karoline Benson MD 701 [facility] S1 860 [place], [place] [phone] Dh, Mother Baby Discharge Disposition: Discharged to [...] LICSW - 06/06/2023 9:30 AM CDT Dept: [facility] Type of Service: Group Therapy Name of Group: Psychoeducation/Skills Group Provider/Group Lead Project Manager: Jazmine Potter LICSW Date of Service: 06/06/2023 Start Time: 9:30 AM Stop Time: 10:15 AM Number of Group Members Present: 5 Location of Service: Face to Face at [facility] REGISTERED ACCOUNT ADMINISTRATOR SERVICES PROVIDED (if applicable): No Session [...]
--- OUTSIDE RECORDS SUMMARY | 2023-11-03 06:33 | XMS_ITS | Encounter Summary ---
Author Name Unknown Organization [facility] Address 701 [facility] [place] [address] Phone Care Team Providers Care Forging Operator Name Role Phone Unavailable Primary Care Provider Unavailabl e Reason for Visit * Reason Onset Date Comments Mother Baby - Mental Health Outreach 06/03/2023 Encounter Details Date Type Department Care Team Description 06/03/2023 Telephone [facility] 701 [place], [place] [phone] Claire Workman, [facility] 701 [facility] [place], [place] [phone] Mother Baby - Mental Health Outreach Social [...] Notes * Telephone Encounter - Claire Workman, [facility] - 06/03/2023 12:57 PM CDT Called pt [...]
--- OUTSIDE RECORDS SUMMARY | 2023-11-03 06:33 | XMS_ITS | Encounter Summary ---
Author Name Unknown Organization [facility] Address [address] [place] [address] Phone Care Team Providers Care Auto Body Straightener Name Role Phone Unavailable Primary Care Provider Unavailabl e Reason for Visit * Prior Authorization (Routine) - Closed Specialty Diagnoses / Procedures Referred By Contac t Referred To Contact Psych Rehab Diagnoses Bipolar II disorder () Trauma and stressor-related disorder Procedures MOTHER BABY ENROLLMENT Jazmine Potter, [facility] [address] [place] [address] [address] Referral ID Status Reason Start Date Expiration Date Visits Re quested Visits Authorized [id number] Closed 05/09/2023 06/24/2023 105 105 Encounter Details Date Type Department Care Team Description 06/06/2023 12:30 PM CDT [facility] [address] [place] [address] [phone] Karoline Benson MD 701 [facility] S1 860 [place], [place] [phone] Dh, Mother Baby Discharge Disposition: Discharged to [...] OTR/L - 06/06/2023 12:30 PM CDT Dept: [facility] Type of Service: Group Therapy Name of Group: Wellness Group Provider/Group Circuit Recorder: Alisha Hardy OTR/L Date of Service: 06/06/2023 Start Time: 12:45 PM Stop Time: 1:30 PM Number of Group Members Present: 4 Location of Service: Face to Face at [facility] FACILITY MECHANIC SERVICES PROVIDED (if applicable): No Session [...]
--- OUTSIDE RECORDS SUMMARY | 2023-11-03 06:33 | XMS_ITS | Encounter Summary ---
Author Name Unknown Organization [facility] Address [address] [place] [address] Phone Care Team Providers Care Route Sales Trainee Name Role Phone Unavailable Primary Care Provider Unavailabl e Reason for Visit * Prior Authorization (Routine) - Closed Specialty Diagnoses / Procedures Referred By Contac t Referred To Contact Psych Rehab Diagnoses Bipolar II disorder () Trauma and stressor-related disorder Procedures MOTHER BABY ENROLLMENT Jazmine Potter, [facility] 701 [place] [address] [address] Referral ID Status Reason Start Date Expiration Date Visits Re quested Visits Authorized [id number] Closed 05/09/2023 06/24/2023 105 105 Encounter Details Date Type Department Care Team Description 05/19/2023 10:15 AM CDT [facility] [address] [place] [address] [phone] Karoline Benson MD 701 [facility] S1 860 [place], [place] [phone] Dh, Mother Baby Discharge Disposition: Discharged to [...] LPCC - 05/19/2023 10:15 AM CDT Dept: [facility] Type of Service: Group Therapy Name of Group: Psychotherapy Process Group Provider/Group Salmon Troll Fisher: Claire Workman LPCC Date of Service: 05/19/2023 Start Time: 10:15 AM Stop Time: 11:00 AM Number of Group Members Present: 5 Location of Service: Face to Face at [facility] Session Content of Today's Group: [...]
--- OUTSIDE RECORDS SUMMARY | 2023-11-03 06:33 | XMS_ITS | Encounter Summary ---
Author Name Unknown Organization [facility] Address [address] [place] [address] Phone Care Team Providers Care Medical Instructor Name Role Phone Unavailable Primary Care Provider Unavailabl e Reason for Visit * Reason Comments Mother Baby - Family Session * Prior Authorization (Routine) - Closed Specialty Diagnoses / Procedures Referred By Bernardo t Referred To Contact Psych Rehab Diagnoses Bipolar II disorder () Trauma and stressor-related disorder Procedures MOTHER BABY ENROLLMENT Jazmine Potter, [facility] [address] [place] [address] [address] Referral ID Status Reason Start Date Expiration Date Visits Re quested Visits Authorized [id number] Closed 05/09/2023 06/24/2023 105 105 Encounter Details Date Type Department Care Team Description 06/01/2023 9:00 AM CDT Psych Rehab [facility] [address] [place] [address] [phone] Claire Workman, [facility] [address] [place] [address] [phone] Mother Baby - Family Session Discharge Disposition: [...] this encounter Progress Notes * Claire Workman, [facility] - 06/01/2023 9:00 AM CDT [facility] Progress Note Date of Service: 06/01/2023 Start Time: 9 am Stop Time: 9:30 am Location of Visit: Face to Face at [facility] Participants in this Visit other than [...] effect and pt has copy Claire Workman, [facility], 05/18/2023 3:15 PM documented in this encounter [...]
--- OUTSIDE RECORDS SUMMARY | 2023-11-03 06:33 | XMS_ITS | Encounter Summary ---
Author Name Unknown Organization [facility] Address [address] [place] [address] Phone Care Team Providers Care Environmental Engineering Assistant Name Role Phone Unavailable Primary Care Provider Unavailabl e Reason for Visit * Prior Authorization (Routine) - Closed Specialty Diagnoses / Procedures Referred By Contac t Referred To Contact Psych Rehab Diagnoses Bipolar II disorder () Trauma and stressor-related disorder Procedures MOTHER BABY ENROLLMENT Jazmine Potter, [facility] [address] [place] [address] [address] Referral ID Status Reason Start Date Expiration Date Visits Re quested Visits Authorized [id number] Closed 05/09/2023 06/24/2023 105 105 Encounter Details Date Type Department Care Team Description 05/19/2023 12:30 PM CDT [facility] [address] [place] [address] [phone] Karoline Benson MD 701 [facility] S1 860 [place], [place] [phone] Dh, Mother Baby Discharge Disposition: Discharged to [...] LPCC - 05/19/2023 12:30 PM CDT Dept: [facility] Type of Service: Group Therapy Name of Group: Psychoeducation/Skills Group Provider/Group Food Management Aide: Claire Workman LPCC Date of Service: 05/19/2023 Start Time: 12:45 PM Stop Time: 1:30 PM Number of Group Members Present: 5 Location of Service: Face to Face at [facility] Session Content (Intervention): The purpose of this group was to provide education through information-sharing and facilitated group discussion. Handouts were provided and covered in detail. Skills taught today included: Parenting Education (describe [place] [employer] Chapters 1 and 2) The [...]
--- OUTSIDE RECORDS SUMMARY | 2023-11-03 06:33 | XMS_ITS | Encounter Summary ---
Author Name Unknown Organization [facility] Address [address] [place] [address] Phone Care Team Providers Care Kennel Assistant Name Role Phone Unavailable Primary Care Provider Unavailabl e Reason for Visit * Prior Authorization (Routine) - Closed Specialty Diagnoses / Procedures Referred By Contac t Referred To Contact Psych Rehab Diagnoses Bipolar II disorder () Trauma and stressor-related disorder Procedures MOTHER BABY ENROLLMENT Jazmine Potter, [facility] 701 [place] [address] [address] Referral ID Status Reason Start Date Expiration Date Visits Re quested Visits Authorized [id number] Closed 05/09/2023 06/24/2023 105 105 Encounter Details Date Type Department Care Team Description 06/01/2023 11:00 AM CDT [facility] [address] [place] [address] [phone] Karoline Benson MD 701 [facility] S[address]60 [place], [place] [phone] Dh, Mother Baby Discharge Disposition: Discharged to [...] RN - 06/01/2023 11:00 AM CDT Dept: [facility] Type of Service: Group Therapy Provider/Group Extension Professor: Kiana Borges RN Date of Service: 06/01/2023 Start Time: 11:15 AM Stop Time: 12:00 PM Number of Group Members Present: 5 Name of Group: Movement Location of Service: Face to Face at [facility] ENGINEERING CONSULTANT SERVICES PROVIDED (if applicable): No Session Content (Intervention) (including goal/intended outcome): Encouraged group members to participate in mind-body skills facilitated by [facility] Trauma- Informed Yoga providers. Trauma-sensitive mind-body skills [...]
--- OUTSIDE RECORDS SUMMARY | 2023-11-03 06:33 | XMS_ITS | Encounter Summary ---
Author Name Unknown Organization [facility] Address 701 [place] [address] Phone Care Team Providers Care Dial Painter Name Role Phone Unavailable Primary Care Provider Unavailabl e Reason for Visit * Reason Onset Date Comments Follow-up 05/27/2023 Encounter Details Date Type Department Care Team Description 05/27/2023 Telephone [facility] 701 [place], [place] [phone] Kiana Borges RN [facility] 701 [place] [address] Follow-up Social History Tobacco Use Types Packs/Day [...] staff that she has been hospitalized in [place] at [facility]. Pt stated They have stated I have [...]
--- OUTSIDE RECORDS SUMMARY | 2023-11-03 06:33 | XMS_ITS | Encounter Summary ---
Author Name Unknown Organization [facility] Address 701 [place] [address] Phone Care Team Providers Care District Claims Manager Name Role Phone Unavailable Primary Care Provider Unavailabl e Encounter Details Date Type Department Care Team Description 05/31/2023 Telephone [facility] for Family [facility] 701 [place] [address] Kiana Borges RN [facility] 701 [place] [address] Social History Tobacco Use Types Packs/Day Years [...] Pt called and requested to speak with director underwriter sales. Pt reported she has an appt with [...]
--- OUTSIDE RECORDS SUMMARY | 2023-11-03 06:33 | XMS_ITS | Encounter Summary ---
Author Name Unknown Organization [facility] Address [address] [place] [address] Phone Care Team Providers Care Data Warehousing Manager Name Role Phone Unavailable Primary Care Provider Unavailabl e Reason for Visit * Prior Authorization (Routine) - Closed Specialty Diagnoses / Procedures Referred By Contac t Referred To Contact Psych Rehab Diagnoses Bipolar II disorder () Trauma and stressor-related disorder Procedures MOTHER BABY ENROLLMENT Jazmine Potter, [facility] 701 [place] [address] [address] Referral ID Status Reason Start Date Expiration Date Visits Re quested Visits Authorized [id number] Closed 05/09/2023 06/24/2023 105 105 Encounter Details Date Type Department Care Team Description 06/06/2023 11:00 AM CDT Psych Rehab [facility] [address] [place] [address] [phone] Karoline Benson MD 701 [facility] S1 860 [place], [place] [phone] Dh, Mother Baby Discharge Disposition: Discharged to [...] LICSW - 06/06/2023 11:00 AM CDT Dept: [facility] Type of Service: Group Therapy Name of Group: Psychoeducation/Skills Group Provider/Group Transit Clerk: Jazmine Potter LICSW Date of Service: 06/06/2023 Start Time: 11:15 AM Stop Time: 12:00 PM Number of Group Members Present: 4 Location of Service: Face to Face at [facility] BOBBIN CLEANER SERVICES PROVIDED (if applicable): No Session Content [...]
--- OUTSIDE RECORDS SUMMARY | 2023-11-03 06:33 | XMS_ITS | Encounter Summary ---
Author Name Unknown Organization [facility] Address [address] [place] [address] Phone Care Team Providers Care Acid Mixer Name Role Phone Unavailable Primary Care Provider Unavailabl e Reason for Visit * Reason Comments Blood Pressure Check Encounter Details Date Type Department Care Team Description 05/23/2023 Documentation Only [facility] [address] [place] [address] [phone] Kiana Borges RN [facility] 701 [place] [address] Blood Pressure Check Social History Tobacco Use [...]
--- OUTSIDE RECORDS SUMMARY | 2023-11-03 06:33 | XMS_ITS | Encounter Summary ---
Author Name Unknown Organization [facility] Address 701 [place] [address] Phone Care Team Providers Care Learning Support Aide Name Role Phone Unavailable Primary Care Provider Unavailabl e Reason for Visit * Reason Onset Date Comments Mother Baby - Mental Health Outreach 05/24/2023 Encounter Details Date Type Department Care Team Description 05/24/2023 Telephone [facility] 701 [place], [place] [phone] Jazmine Potter, TYPE INSPECTOR 701 [place], [place] 7[address] Mother Baby - Mental Health Outreach Social [...] Notes * Telephone Encounter - Jazmine Potter TYPE INSPECTOR - 05/25/2023 9:55 AM CDT Property Site Manager spoke with patient who reported that she was currently in ED at [facility]. Patient stated, all signs are pointing to psychosis. Endorsed increased paranoia since Tuesday evening and hearing whispers. Property Site Manager offered emotional support and ensured patient that [facility] is available upon discharge from the hospital. Patient expressed relief to hear this. Ensured that she is currently safe in ED and stated that she will be in touch with [facility] upon discharge to return to programming. [...]
--- OUTSIDE RECORDS SUMMARY | 2023-11-03 06:34 | XMS_ITS | Encounter Summary ---
Author Name Unknown Organization [facility] Address [address] [place] [address] Phone Care Team Providers Care Cow Tender Name Role Phone Unavailable Primary Care Provider Unavailabl e Reason for Visit * Prior Authorization (Routine) - Closed Specialty Diagnoses / Procedures Referred By Contac t Referred To Contact Psych Rehab Diagnoses Bipolar II disorder () Trauma and stressor-related disorder Procedures MOTHER BABY ENROLLMENT Jazmine Potter, [facility] [address] [place] [address] [address] Referral ID Status Reason Start Date Expiration Date Visits Re quested Visits Authorized [id number] Closed 05/09/2023 06/24/2023 105 105 Encounter Details Date Type Department Care Team Description 05/11/2023 12:30 PM CDT [facility] [address] [place] [address] [phone] Karoline Benson MD 701 [facility] S1 860 [place], [place] [phone] Dh, Mother Baby Discharge Disposition: Discharged to [...] OTR/L - 05/11/2023 12:30 PM CDT Dept: [facility] Type of Service: Group Therapy Name of Group: Wellness Group Provider/Group Urgent Care Technician: Alisha Hardy OTR/L Date of Service: 05/11/2023 Start Time: 12:45 PM Stop Time: 1:30 PM Number of Group Members Present: 6 Location of Service: Face to Face at [facility] WARP DRAWER SERVICES PROVIDED (if applicable): No Session Content [...]
--- OUTSIDE RECORDS SUMMARY | 2023-11-03 06:34 | XMS_ITS | Encounter Summary ---
Author Name Unknown Organization [facility] Address [address] [facility] [place] [place] [address] Phone Care Team Providers Care Ramp Manager Name Role Phone Unavailable Primary Care Provider Unavailabl e Encounter Details Date Type Department Care Team Description 05/13/2023 9:00 AM CDT Telemedicine Psych Rehab [facility] for [facility] 701 [place], [place] [address] Karoline Benson MD 701 [facility] S[address]60 [place] [address] Left without seen Discharge Disposition: Discharged to [...]
--- OUTSIDE RECORDS SUMMARY | 2023-11-03 06:34 | XMS_ITS | Encounter Summary ---
Author Name Unknown Organization [facility] Address [address] [place] [address] Phone Care Team Providers Care Remedial Masseur Name Role Phone Unavailable Primary Care Provider Unavailabl e Reason for Visit * Prior Authorization (Routine) - Closed Specialty Diagnoses / Procedures Referred By Contac t Referred To Contact Psych Rehab Diagnoses Bipolar II disorder () Trauma and stressor-related disorder Procedures MOTHER BABY ENROLLMENT Jazmine Potter, [facility] [address] [place] [address] [address] Referral ID Status Reason Start Date Expiration Date Visits Re quested Visits Authorized [id number] Closed 05/09/2023 06/24/2023 105 105 Encounter Details Date Type Department Care Team Description 05/17/2023 10:15 AM CDT [facility] [address] [place] [address] [phone] Karoline Benson MD 701 [facility] S[address]60 [place], [place] [phone] Dh, Mother Baby Discharge Disposition: Discharged to [...] LICSW - 05/17/2023 10:15 AM CDT Dept: [facility] Type of Service: Group Therapy Name of Group: Psychotherapy Process Group Provider/Group It Application Architect: Jazmine Potter LICSW Date of Service: 05/17/2023 Start Time: 10:15 AM Stop Time: 11:00 AM Number of Group Members Present: 7 Location of Service: Face to Face at [facility] MANUFACTURING INTERN SERVICES PROVIDED (if applicable): No Session Content [...]
--- OUTSIDE RECORDS SUMMARY | 2023-11-03 06:34 | XMS_ITS | Encounter Summary ---
Author Name Unknown Organization [facility] Address [address] [place] [phone] Phone Care Team Providers Care Automotive Product Engineer Name Role Phone Unavailable Primary Care Provider Unavailabl e Reason for Visit * Prior Authorization (Routine) - Closed Specialty Diagnoses / Procedures Referred By Contac t Referred To Contact Psych Rehab Diagnoses Bipolar II disorder () Trauma and stressor-related disorder Procedures MOTHER BABY ENROLLMENT Jazmine Potter, [facility] [address] [place] [address] [address] Referral ID Status Reason Start Date Expiration Date Visits Re quested Visits Authorized [id number] Closed 05/09/2023 06/24/2023 105 105 Encounter Details Date Type Department Care Team Description 05/18/2023 1:45 PM CDT [facility] [address] [place] [address] [phone] Karoline Benson MD 701 [facility] S[address]60 [place], [place] [phone] Dh, Mother Baby Discharge Disposition: Discharged to [...] LICSW - 05/18/2023 1:45 PM CDT Dept: [facility] Type of Service: Group Therapy Name of Group: Psychoeducation/Skills Group Provider/Group Tin Flopper: Jazmine Potter LICSW Date of Service: 05/18/2023 Start Time: 1:45 PM Stop Time: 2:30 PM Number of Group Members Present: 5 Location of Service: Face to Face at [facility] CUTTING MACHINE TENDER SERVICES PROVIDED (if applicable): No Session Content [...]
--- OUTSIDE RECORDS SUMMARY | 2023-11-03 06:34 | XMS_ITS | Encounter Summary ---
Author Name Unknown Organization [facility] Address [address] [place] [address] Phone Care Team Providers Care Music Theory Professor Name Role Phone Unavailable Primary Care Provider Unavailabl e Reason for Visit * Reason Comments Mother Baby - Individual Psychotherapy * Prior Authorization (Routine) - Closed Specialty Diagnoses / Procedures Referred By Bernardo t Referred To Contact Psych Rehab Diagnoses Bipolar II disorder () Trauma and stressor-related disorder Procedures MOTHER BABY ENROLLMENT Jazmine Potter, [facility] [address] [place] [address] [address] Referral ID Status Reason Start Date Expiration Date Visits Re quested Visits Authorized [id number] Closed 05/09/2023 06/24/2023 105 105 Encounter Details Date Type Department Care Team Description 05/18/2023 2:30 PM CDT Psych Rehab [facility] [address] [place] [address] [phone] Claire Workman, [facility] [address] [place] [address] [phone] Mother Baby - Individual Psychotherapy Discharge Disposition: [...] this encounter Progress Notes * Claire Workman, [facility] - 05/18/2023 2:30 PM CDT [facility] Progress Note Date of Service: 05/18/2023 Start Time: 2:30 pm Stop Time: 3 pm Location of Visit: Face to Face at [facility] Participants in this Visit other than the [...]
--- OUTSIDE RECORDS SUMMARY | 2023-11-03 06:34 | XMS_ITS | Encounter Summary ---
Author Name Unknown Organization [facility] Address [address] [place] [address] Phone Care Team Providers Care Residential Field Manager Name Role Phone Unavailable Primary Care Provider Unavailabl e Reason for Visit * Prior Authorization (Routine) - Closed Specialty Diagnoses / Procedures Referred By Contac t Referred To Contact Psych Rehab Diagnoses Bipolar II disorder () Trauma and stressor-related disorder Procedures MOTHER BABY ENROLLMENT Jazmine Potter, [facility] [address] [place] [address] [address] Referral ID Status Reason Start Date Expiration Date Visits Re quested Visits Authorized [id number] Closed 05/09/2023 06/24/2023 105 105 Encounter Details Date Type Department Care Team Description 05/10/2023 12:30 PM CDT [facility] [address] [place] [address] [phone] Karoline Benson MD 701 [facility] S1 [address]60 [place], [place] [phone] Dh, Mother Baby Discharge Disposition: Discharged to [...] OTR/L - 05/10/2023 12:30 PM CDT Dept: [facility] Type of Service: Group Therapy Name of Group: Wellness Group Provider/Group Graduate Internship: Alisha Hardy OTR/L Date of Service: 05/10/2023 Start Time: 12:45 PM Stop Time: 1:30 PM Number of Group Members Present: 5 Location of Service: Face to Face at [facility] FRINGING MACHINE OPERATOR SERVICES PROVIDED (if applicable): No [...]
--- OUTSIDE RECORDS SUMMARY | 2023-11-03 06:34 | XMS_ITS | Encounter Summary ---
Author Name Unknown Organization [facility] Address [address] [place] [address] Phone Care Team Providers Care Casualty Claim Adjuster Name Role Phone Unavailable Primary Care Provider Unavailabl e Reason for Visit * Prior Authorization (Routine) - Closed Specialty Diagnoses / Procedures Referred By Contac t Referred To Contact Psych Rehab Diagnoses Bipolar II disorder () Trauma and stressor-related disorder Procedures MOTHER BABY ENROLLMENT Jazmine Potter, [facility] [address] [place] [address] [address] Referral ID Status Reason Start Date Expiration Date Visits Re quested Visits Authorized [id number] Closed 05/09/2023 06/24/2023 105 105 Encounter Details Date Type Department Care Team Description 05/16/2023 12:30 PM CDT [facility] [address] [place] [address] [phone] Karoline Benson MD 701 [facility] S1 [address]60 [place], [place] [phone] Dh, Mother Baby Discharge Disposition: Discharged to [...] OTR/L - 05/16/2023 12:30 PM CDT Dept: [facility] Type of Service: Group Therapy Name of Group: Wellness Group Provider/Group Adjunct Physical Education Instructor: Alisha Hardy OTR/L Date of Service: 05/16/2023 Start Time: 12:45 PM Stop Time: 1:30 PM Number of Group Members Present: 6 Location of Service: Face to Face at [facility] HIGH DENSITY FINISHING OPERATOR SERVICES PROVIDED (if applicable): No Session [...]
--- OUTSIDE RECORDS SUMMARY | 2023-11-03 06:34 | XMS_ITS | Encounter Summary ---
Author Name Unknown Organization [facility] Address [address] [place] [address] Phone Care Team Providers Care Material Assembler Name Role Phone Unavailable Primary Care Provider Unavailabl e Reason for Visit * Prior Authorization (Routine) - Closed Specialty Diagnoses / Procedures Referred By Contac t Referred To Contact Psych Rehab Diagnoses Bipolar II disorder () Trauma and stressor-related disorder Procedures MOTHER BABY ENROLLMENT Jazmine Potter, [facility] 701 [place] [address] [address] Referral ID Status Reason Start Date Expiration Date Visits Re quested Visits Authorized [id number] Closed 05/09/2023 06/24/2023 105 105 Encounter Details Date Type Department Care Team Description 05/12/2023 11:00 AM CDT [facility] [address] [place] [address] [phone] Karoline Benson MD 701 [facility] S[address]60 [place], [place] [phone] Dh, Mother Baby Discharge Disposition: Discharged to [...] PT - 05/12/2023 11:00 AM CDT Dept: [facility] Type of Service: Group Therapy Provider/Group Truss Maker: Sara Cunha PT Date of Service: 05/12/2023 Start Time: 11:00 AM Stop Time: 12:00 PM Number of Group Members Present: 5 Name of Group: Movement Location of Service: Face to Face at [facility] VOICE COACH SERVICES PROVIDED (if applicable): No Session Content (Intervention) (including goal/intended outcome): Mindful Movement. Encouraged group members to participate in mind-body skills facilitated by [facility] Trauma-Informed Yoga providers. [...]
--- OUTSIDE RECORDS SUMMARY | 2023-11-03 06:34 | XMS_ITS | Encounter Summary ---
Author Name Unknown Organization [facility] Address [address] [place] [address] Phone Care Team Providers Care Line Appliance Assembler Name Role Phone Unavailable Primary Care Provider Unavailabl e Reason for Visit * Prior Authorization (Routine) - Closed Specialty Diagnoses / Procedures Referred By Contac t Referred To Contact Psych Rehab Diagnoses Bipolar II disorder () Trauma and stressor-related disorder Procedures MOTHER BABY ENROLLMENT Jazmine Potter, [facility] [address] [place] [address] [address] Referral ID Status Reason Start Date Expiration Date Visits Re quested Visits Authorized [id number] Closed 05/09/2023 06/24/2023 105 105 Encounter Details Date Type Department Care Team Description 05/18/2023 10:15 AM CDT [facility] [address] [place] [address] [phone] Karoline Benson MD 701 [facility] S1 860 [place], [place] [phone] Dh, Mother Baby Discharge Disposition: Discharged to [...] LPCC - 05/18/2023 10:15 AM CDT Dept: [facility] Type of Service: Group Therapy Name of Group: Psychotherapy Process Group Provider/Group Self Pay Collector: Claire Workman LPCC Date of Service: 05/18/2023 Start Time: 10:15 AM Stop Time: 11:00 AM Number of Group Members Present: 5 Location of Service: Face to Face at [facility] Session Content of Today's Group: At [...]
--- OUTSIDE RECORDS SUMMARY | 2023-11-03 06:34 | XMS_ITS | Encounter Summary ---
Author Name Unknown Organization [facility] Address [address] [place] [address] Phone Care Team Providers Care General Dentist/Owner Name Role Phone Unavailable Primary Care Provider Unavailabl e Reason for Visit * Prior Authorization (Routine) - Closed Specialty Diagnoses / Procedures Referred By Contac t Referred To Contact Psych Rehab Diagnoses Bipolar II disorder () Trauma and stressor-related disorder Procedures MOTHER BABY ENROLLMENT Jazmine Potter, [facility] [address] [place] [address] [address] Referral ID Status Reason Start Date Expiration Date Visits Re quested Visits Authorized [id number] Closed 05/09/2023 06/24/2023 105 105 Encounter Details Date Type Department Care Team Description 05/12/2023 1:30 PM CDT [facility] [address] [place] [address] [phone] Karoline Benson MD [address] [facility] [address] [place], [place] [phone] Dh, Mother Baby Discharge Disposition: Discharged to [...] LICSW - 05/12/2023 1:30 PM CDT Dept: [facility] Type of Service: Group Therapy Name of Group: Psychoeducation/Skills Group Provider/Group Painter And Body Work: Noy Chen LICSW Date of Service: 05/12/2023 Start Time: 1:45 PM Stop Time: 2:30 PM Number of Group Members Present: 5 Location of Service: Face to Face at [facility] MASTER BAKER SERVICES PROVIDED (if applicable): No Session Content [...]
--- OUTSIDE RECORDS SUMMARY | 2023-11-03 06:34 | XMS_ITS | Encounter Summary ---
Author Name Unknown Organization [facility] Address [address] [place] [address] Phone Care Team Providers Care Fluid Power Mechanic Name Role Phone Unavailable Primary Care Provider Unavailabl e Reason for Visit * Prior Authorization (Routine) - Closed Specialty Diagnoses / Procedures Referred By Contac t Referred To Contact Psych Rehab Diagnoses Bipolar II disorder () Trauma and stressor-related disorder Procedures MOTHER BABY ENROLLMENT Jazmine Potter, [facility] [address] [place] [address] [address] Referral ID Status Reason Start Date Expiration Date Visits Re quested Visits Authorized [id number] Closed 05/09/2023 06/24/2023 105 105 Encounter Details Date Type Department Care Team Description 05/12/2023 10:15 AM CDT [facility] [address] [place] [address] [phone] Karoline Benson MD 701 [facility] S[address]60 [place], [place] [phone] Dh, Mother Baby Discharge Disposition: Discharged to [...] LPCC - 05/12/2023 10:15 AM CDT Dept: [facility] Type of Service: Group Therapy Name of Group: Psychotherapy Process Group Provider/Group Solutions Architect: Claire Workman LPCC Date of Service: 05/12/2023 Start Time: 10:15 AM Stop Time: 11:00 AM Number of Group Members Present: 5 Location of Service: Face to Face at [facility] Session Content of Today's Group: At the [...]
--- OUTSIDE RECORDS SUMMARY | 2023-11-03 06:34 | XMS_ITS | Encounter Summary ---
Author Name Unknown Organization [facility] Address [address] [place] [address] Phone Care Team Providers Care Freight Receiver Name Role Phone Unavailable Primary Care Provider Unavailabl e Reason for Visit * Reason Comments Psych Rehab Health Screen Encounter Details Date Type Department Care Team Description 05/10/2023 Documentation Only [facility] Family [facility] 701 [place], [place] [phone] Kiana Borges RN [facility] 701 [place] [address] Psych Rehab Health Screen Social History Tobacco [...] the patient was reviewedand updated during a [id number] meeting. The problem list will be updated as needed and the procedure for screening, assessment, and triage will be followed. See plan, below. Primary Care Provider: [facility] Date of last PCP visit: 10/2021 Primary [...] following questions. Difficult to pay for child psychologist? X 2. Difficult to pay your bills? [...] home. Pt verbalized an understanding and thanked [place] underwriter. Healthcare Directive on File: No Healthcare Directive [...]
--- OUTSIDE RECORDS SUMMARY | 2023-11-03 06:34 | XMS_ITS | Encounter Summary ---
Author Name Unknown Organization [facility] Address [address] [place] [address] Phone Care Team Providers Care Billing Spec Name Role Phone Unavailable Primary Care Provider Unavailabl e Reason for Visit * Prior Authorization (Routine) - Closed Specialty Diagnoses / Procedures Referred By Contac t Referred To Contact Psych Rehab Diagnoses Bipolar II disorder () Trauma and stressor-related disorder Procedures MOTHER BABY ENROLLMENT Jazmine Potter, [facility] [address] [place] [address] [address] Referral ID Status Reason Start Date Expiration Date Visits Re quested Visits Authorized [id number] Closed 05/09/2023 06/24/2023 105 105 Encounter Details Date Type Department Care Team Description 05/18/2023 9:30 AM CDT [facility] [address] [place] [address] [phone] Karoline Benson MD 701 [facility] S[address]60 [place], [place] [phone] Dh, Mother Baby Discharge Disposition: Discharged to [...] LPCC - 05/18/2023 9:30 AM CDT Dept: [facility] Type of Service: Group Therapy Name of Group: Psychoeducation/Skills Group Provider/Group Professor Of Business Administration: Claire Workman LPCC Date of Service: 05/18/2023 Start Time: 9:30 AM Stop Time: 10:15 AM Number of Group Members Present: 4 Location of Service: Face to Face at [facility] Session Content (Intervention): Welcomed any new [...]
--- OUTSIDE RECORDS SUMMARY | 2023-11-03 06:34 | XMS_ITS | Encounter Summary ---
Author Name Unknown Organization [facility] Address [address] [place] [address] Phone Care Team Providers Care Cloth Carrier Name Role Phone Unavailable Primary Care Provider Unavailabl e Reason for Visit * Prior Authorization (Routine) - Closed Specialty Diagnoses / Procedures Referred By Contac t Referred To Contact Psych Rehab Diagnoses Bipolar II disorder () Trauma and stressor-related disorder Procedures MOTHER BABY ENROLLMENT Jazmine Potter, [facility] [address] [place] [address] [address] Referral ID Status Reason Start Date Expiration Date Visits Re quested Visits Authorized [id number] Closed 05/09/2023 06/24/2023 105 105 Encounter Details Date Type Department Care Team Description 05/12/2023 9:30 AM CDT [facility] [address] [place] [address] [phone] Karoline Benson MD 701 [facility] S1 [address]60 [place], [place] [phone] Dh, Mother Baby Discharge Disposition: Discharged to [...] LPCC - 05/12/2023 9:30 AM CDT Dept: [facility] Type of Service: Group Therapy Name of Group: Psychoeducation/Skills Group Provider/Group Slip Cover Maker: Claire Workman LPCC Date of Service: 05/12/2023 Start Time: 9:30 AM Stop Time: 10:15 AM Number of Group Members Present: 5 Location of Service: Face to Face at [facility] Session Content (Intervention): Welcomed any new [...]
--- OUTSIDE RECORDS SUMMARY | 2023-11-03 06:34 | XMS_ITS | Encounter Summary ---
Author Name Unknown Organization [facility] Address [address] [place] [address] Phone Care Team Providers Care Barrel Lathe Operator Name Role Phone Unavailable Primary Care Provider Unavailabl e Reason for Visit * Prior Authorization (Routine) - Closed Specialty Diagnoses / Procedures Referred By Contac t Referred To Contact Psych Rehab Diagnoses Bipolar II disorder () Trauma and stressor-related disorder Procedures MOTHER BABY ENROLLMENT Jazmine Potter, [facility] [address] [place] [address] [address] Referral ID Status Reason Start Date Expiration Date Visits Re quested Visits Authorized [id number] Closed 05/09/2023 06/24/2023 105 105 Encounter Details Date Type Department Care Team Description 05/18/2023 12:30 PM CDT [facility] [address] [place] [address] [phone] Karoline Benson MD 701 [facility] S[address]60 [place], [place] [phone] Dh, Mother Baby Discharge Disposition: Discharged to [...] OTR/L - 05/18/2023 12:30 PM CDT Dept: [facility] Type of Service: Group Therapy Name of Group: Wellness Group Provider/Group Appraiser: Alisha Hardy OTR/L Date of Service: 05/18/2023 Start Time: 12:45 PM Stop Time: 1:30 PM Number of Group Members Present: 6 Location of Service: Face to Face at [facility] STILL OPERATOR GIN SERVICES PROVIDED (if applicable): No Session Content [...]
--- OUTSIDE RECORDS SUMMARY | 2023-11-03 06:34 | XMS_ITS | Encounter Summary ---
Author Name Unknown Organization [facility] Address [address] [place] [address] Phone Care Team Providers Care Surveyor Geodetic Name Role Phone Unavailable Primary Care Provider Unavailabl e Reason for Visit * Prior Authorization (Routine) - Closed Specialty Diagnoses / Procedures Referred By Contac t Referred To Contact Psych Rehab Diagnoses Bipolar II disorder () Trauma and stressor-related disorder Procedures MOTHER BABY ENROLLMENT Jazmine Potter, [facility] [address] [place] [address] [address] Referral ID Status Reason Start Date Expiration Date Visits Re quested Visits Authorized [id number] Closed 05/09/2023 06/24/2023 105 105 Encounter Details Date Type Department Care Team Description 05/10/2023 10:15 AM CDT [facility] [address] [place] [address] [phone] Karoline Benson MD 701 [facility] S[address]60 [place], [place] [phone] Dh, Mother Baby Discharge Disposition: Discharged to [...] LICSW - 05/10/2023 10:15 AM CDT Dept: [facility] Type of Service: Group Therapy Name of Group: Psychotherapy Process Group Provider/Group Accounting Auditor: Jazmine Potter LICSW Date of Service: 05/10/2023 Start Time: 10:15 AM Stop Time: 11:00 AM Number of Group Members Present: 4 Location of Service: Face to Face at [facility] MEDICAL COST CONSULTANT SERVICES PROVIDED (if applicable): No Session [...]
--- OUTSIDE RECORDS SUMMARY | 2023-11-03 06:34 | XMS_ITS | Encounter Summary ---
Author Name Unknown Organization [facility] Address [address] [place] [address] Phone Care Team Providers Care Sales Operations Coordinator Name Role Phone Unavailable Primary Care Provider Unavailabl e Reason for Visit * Prior Authorization (Routine) - Closed Specialty Diagnoses / Procedures Referred By Contac t Referred To Contact Psych Rehab Diagnoses Bipolar II disorder () Trauma and stressor-related disorder Procedures MOTHER BABY ENROLLMENT Jazmine Potter, [facility] 701 [place] [address] [address] Referral ID Status Reason Start Date Expiration Date Visits Re quested Visits Authorized [id number] Closed 05/09/2023 06/24/2023 105 105 Encounter Details Date Type Department Care Team Description 05/17/2023 11:00 AM CDT [facility] [address] [place] [address] [phone] Karoline Benson MD 701 [facility] S[address]60 [place], [place] [phone] Dh, Mother Baby Discharge Disposition: Discharged to [...] PT - 05/17/2023 11:00 AM CDT Dept: [facility] Type of Service: Group Therapy Provider/Group Early Childhood Education Coordinator: Sara Cunha PT Date of Service: 05/17/2023 Start Time: 11:00 AM Stop Time: 12:00 PM Number of Group Members Present: 4 Name of Group: Movement Location of Service: Face to Face at a [facility] NET DEVELOPER CONTRACT SERVICES PROVIDED (if applicable): No Session Content (Intervention) (including goal/intended outcome): Mindful Movement. Encouraged group members to participate in mind-body skills facilitated by [facility] Trauma-Informed Yoga providers. Trauma-sensitive mind-body skills and [...]
--- OUTSIDE RECORDS SUMMARY | 2023-11-03 06:34 | XMS_ITS | Encounter Summary ---
Author Name Unknown Organization [facility] Address [address] [place] [address] Phone Care Team Providers Care Naphthalene Operator Helper Name Role Phone Unavailable Primary Care Provider Unavailabl e Reason for Visit * Prior Authorization (Routine) - Closed Specialty Diagnoses / Procedures Referred By Contac t Referred To Contact Psych Rehab Diagnoses Bipolar II disorder () Trauma and stressor-related disorder Procedures MOTHER BABY ENROLLMENT Jazmine Potter, [facility] [address] [place] [address] [address] Referral ID Status Reason Start Date Expiration Date Visits Re quested Visits Authorized [id number] Closed 05/09/2023 06/24/2023 105 105 Encounter Details Date Type Department Care Team Description 05/16/2023 1:45 PM CDT [facility] [address] [place] [address] [phone] Karoline Benson MD [address] [facility] S[address]60 [place], [place] [phone] Dh, Mother Baby Discharge Disposition: Discharged to [...] LICSW - 05/16/2023 1:45 PM CDT Dept: [facility] Type of Service: Group Therapy Name of Group: Psychoeducation/Skills Group Provider/Group Sort Worker: Jazmine Potter LICSW Date of Service: 05/16/2023 Start Time: 1:45 PM Stop Time: 2:30 PM Number of Group Members Present: 7 Location of Service: Face to Face at [facility] WATER TAXI OPERATOR SERVICES PROVIDED (if applicable): No Session [...]
--- OUTSIDE RECORDS SUMMARY | 2023-11-03 06:34 | XMS_ITS | Encounter Summary ---
Author Name Unknown Organization [facility] Address [address] [place] [address] Phone Care Team Providers Care Lead Instructor/Flight Attendant Name Role Phone Unavailable Primary Care Provider Unavailabl e Reason for Visit * Prior Authorization (Routine) - Closed Specialty Diagnoses / Procedures Referred By Contac t Referred To Contact Psych Rehab Diagnoses Bipolar II disorder () Trauma and stressor-related disorder Procedures MOTHER BABY ENROLLMENT Jazmine Potter, [facility] [address] [place] [address] [address] Referral ID Status Reason Start Date Expiration Date Visits Re quested Visits Authorized [id number] Closed 05/09/2023 06/24/[phone] Encounter Details Date Type Department Care Team Description 05/10/2023 1:45 PM CDT Psych [facility] [address] [place] [address] [phone] Karoline Benson MD 701 [facility] S[address] [place], [place] [phone] Dh, Mother Baby Discharge Disposition: Discharged to [...] LICSW - 05/10/2023 1:45 PM CDT Dept: [facility] Type of Service: Group Therapy Name of Group: Psychoeducation/Skills Group Provider/Group Front Office Spec: Noy Chen LICSW Date of Service: 05/10/2023 Start Time: 1:45 PM Stop Time: 2:30 PM Number of Group Members Present: 5 Location of Service: Face to Face at [facility] VP TREASURER SERVICES PROVIDED (if applicable): No Session Content (Intervention): The purpose of this group was to provide education through information-sharing and facilitated group discussion. Skills taught today included: Parenting Education (describe [place] of Security Parenting) The patient???s response to [...]
--- OUTSIDE RECORDS SUMMARY | 2023-11-03 06:34 | XMS_ITS | Encounter Summary ---
Author Name Unknown Organization [facility] Address [address] [place] [address] Phone Care Team Providers Care Strategic Manager Name Role Phone Unavailable Primary Care Provider Unavailabl e Reason for Visit * Prior Authorization (Routine) - Closed Specialty Diagnoses / Procedures Referred By Contac t Referred To Contact Psych Rehab Diagnoses Bipolar II disorder () Trauma and stressor-related disorder Procedures MOTHER BABY ENROLLMENT Jazmine Potter, [facility] [address] [place] [address] [address] Referral ID Status Reason Start Date Expiration Date Visits Re quested Visits Authorized [id number] Closed 05/09/2023 06/24/[phone] Encounter Details Date Type Department Care Team Description 05/10/2023 11:00 AM CDT [facility] [address] [place] [address] [phone] Karoline Benson MD 701 [facility] S[address]60 [place], [place] [phone] Dh, Mother Baby Discharge Disposition: Discharged to [...] 05/10/2023 11:00 AM CDT Dept: [facility] Type of Service: Group Therapy Provider/Group Early Head Start Director: Sara Cunha PT Date of Service: 05/10/2023 Start Time: 11:00 AM Stop Time: 12:00 PM Number of Group Members Present: 5 Name of Group: Movement Location of Service: Face to Face at a [facility] SHELLFISH HARVESTER SERVICES PROVIDED (if applicable): No Session Content (Intervention) (including goal/intended outcome): Mindful Movement. Encouraged group members to participate in mind-body skills facilitated by [facility] Trauma-Informed Yoga providers. Trauma-sensitive mind-body skills and [...]
--- OUTSIDE RECORDS SUMMARY | 2023-11-03 06:34 | XMS_ITS | Encounter Summary ---
Author Name Unknown Organization [facility] Address [address] [place] [address] Phone Care Team Providers Care Infusion Therapy Nurse Name Role Phone Unavailable Primary Care Provider Unavailabl e Reason for Visit * Prior Authorization (Routine) - Closed Specialty Diagnoses / Procedures Referred By Contac t Referred To Contact Psych Rehab Diagnoses Bipolar II disorder () Trauma and stressor-related disorder Procedures MOTHER BABY ENROLLMENT Jazmine Potter, [facility] [address] [place] [phone] [address] Referral ID Status Reason Start Date Expiration Date Visits Re quested Visits Authorized [id number] Closed 05/09/2023 06/24/2023 105 105 Encounter Details Date Type Department Care Team Description 05/16/2023 10:15 AM CDT [facility] [address] [place] [address] [phone] Karoline Benson MD 701 [facility] S[address] [place], [place] [phone] Dh, Mother Baby Discharge Disposition: Discharged to [...] LICSW - 05/16/2023 10:15 AM CDT Dept: [facility] Type of Service: Group Therapy Name of Group: Psychotherapy Process Group Provider/Group Virtual Assistant For Advertisers: Jazmine Potter LICSW Date of Service: 05/16/2023 Start Time: 10:15 AM Stop Time: 11:00 AM Number of Group Members Present: 6 Location of Service[facility] CITY ROUTEMAN SERVICES PROVIDED (if applicable): No Session Content [...]
--- OUTSIDE RECORDS SUMMARY | 2023-11-03 06:34 | XMS_ITS | Encounter Summary ---
Author Name Unknown Organization [facility] Address [address] [place] [address] Phone Care Team Providers Care Commercial Real Estate Manager Name Role Phone Unavailable Primary Care Provider Unavailabl e Reason for Visit * Reason Comments Psych Medication Management Encounter Details Date Type Department Care Team Description 05/16/2023 2:30 PM CDT Psych Rehab [facility] [address] [place], [place] [phone] Giovana Benson MD 701 [facility] S[address] [place], [place] 567[address] Psych Medication Management Discharge Disposition: Discharged to [...] original note were not included. Mother Baby [facility], Psychiatry Visit Started the Day [facility] on: 05/09/23 Merry Rooney is a 22 y.o. mother of baby (Latha b. 05/03/23) and 2 year old son (Chuy). Referred by [facility] Cultural Context: white, Czech and Congolese Pronouns: she/her/hers; Supports: Jesús -- supportive Therapist: ; PCP: ; OB-CORK GRINDER: Antonio Ob; Manager Payer: Feeding Method: breast and bottle feeding with [...] symptoms and possible preeclampsia leading to transferto [place] ICU. Seen by psychiatry (Dr Ortiz) at [place], discontinued from her sertraline and started on [...] individual and group therapy process in the [facility]. 6) Review old records. 7) Contact collateral [...] when she was 4. Mother lived in [place]. 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 Legal: no had involvement with the legal system. The patient reports the following spiritual and/or cultural history: Czech and Congolese background Relationship to her partner/father/co-parent of the [...]
--- OUTSIDE RECORDS SUMMARY | 2023-11-03 06:34 | XMS_ITS | Encounter Summary ---
Author Name Unknown Organization [facility] Address [address] [place] [address] Phone Care Team Providers Care Fish Filleter Name Role Phone Unavailable Primary Care Provider Unavailabl e Reason for Visit * Reason Comments Mother Baby - Individual Psychotherapy Encounter Details Date Type Department Care Team Description 05/11/2023 2:30 PM CDT Psych Rehab [facility] 701 [place], [place] [phone] Claire Workman, [facility] 701 [place], [place] [phone] Mother Baby - Individual Psychotherapy Discharge Disposition: [...] this encounter Progress Notes * [facility] 05/11/2023 2:30 PM CDT [facility] Progress Note for Treatment Planning Sessions Start Time: 2:30 pm Stop Time: 2:55 pm Date of Service: 05/11/2023 Type of Therapy: Individual, Modality: Emotion Focused Therapy Type of Treatment Plan: Initial Location of Visit: Face to Face at [facility] Participants in this Visit other than the [...]
--- OUTSIDE RECORDS SUMMARY | 2023-11-03 06:34 | XMS_ITS | Encounter Summary ---
Author Name Unknown Organization [facility] Address [address] [place] [address] Phone Care Team Providers Care Forest Aide Name Role Phone Unavailable Primary Care Provider Unavailabl e Reason for Visit * Prior Authorization (Routine) - Closed Specialty Diagnoses / Procedures Referred By Contac t Referred To Contact Psych Rehab Diagnoses Bipolar II disorder () Trauma and stressor-related disorder Procedures MOTHER BABY ENROLLMENT Jazmine Potter, [facility] [address] [place] [address] [address] Referral ID Status Reason Start Date Expiration Date Visits Re quested Visits Authorized [id number] Closed 05/09/2023 06/24/2023 105 105 Encounter Details Date Type Department Care Team Description 05/12/2023 12:30 PM CDT [facility] [address] [place] [address] [phone] Karoline Benson MD 701 [facility] S1 [address]60 [place], [place] [phone] Dh, Mother Baby Discharge Disposition: Discharged to [...] LICSW - 05/12/2023 12:30 PM CDT Dept: [facility] Type of Service: Group Therapy Name of Group: Psychoeducation/Skills Group Provider/Group Warehouse Shift Supervisor: Noy Chen LICSW Date of Service: 05/12/2023 Start Time: 12:45 PM Stop Time: 1:30 PM Number of Group Members Present: 5 Location of Service: Face to Face at [facility] WEIGHTER SERVICES PROVIDED (if applicable): No Session Content (Intervention): The purpose of this group was to provide education through information-sharing and facilitated group discussion. Handouts were provided and covered in detail. Skills taught today included: Parenting Education (describe [place] of Security) The patient???s response to the [...]
--- OUTSIDE RECORDS SUMMARY | 2023-11-03 06:35 | XMS_ITS | Encounter Summary ---
Author Name Unknown Organization [facility] Address [address] [place] [address] Care Team Providers Care Narrow Gauge Brakeman Name Role Phone Abbey Bagley PA-C Unavailable Unavailable Abbey Bagley PA-C Primary Care Provider Unava ilIno Reynolds MD Unavailable Reason for Referral * Home Health Therapies & Aides (Priority: 1-2 Weeks) Specialty Diagnoses / Procedures Referred By Bernardo belle Referred To Contact [facility] [address] [place] [address] Referral ID Status Reason Start Date Expiration Date Visits Re quested Visits Authorized Question Answer Please see patient within 96 hours of discharge Reason for Referral /Low Milk Supply Comments If your home visit was not scheduled during your hospital stay, you should receive a call from [facility] within 24 hours after discharge to schedule your ordered home visit. If you have not heard by then, please call [phone]. Reason for Visit * Reason Comments Induction Of Labor * Auth/Cert (Routine) Specialty Diagnoses / Procedures Referred By Contac t Referred To Contact geek squad agent Diagnoses Indication for care in labor or delivery Indication for care in labor or delivery Rh [address] [place] [address] Referral ID Status Reason Start Date Expiration Date Visits Re quested Visits Authorized [id number] 1 1 Encounter Details Date Type Department Care Team (Latest Contact Info) Description 05/02/2023 7:24 AM CDT - 05/04/2023 12:33 PM CDT Hospital Encounter [facility] [address] [place] [phone] Kelley Diane, DO [address] [place] [address] Vaginal delivery (Primary Dx); Indication for care [...] Answer Date Recorded PHQ-2 Score 0 04/14/2023 Far[place] Depression Scale Answer Date Recorded Last EPDS [...] Rodriguez MD - 05/04/2023 7:54 AM CDT [facility] OB /Discharge Note S: Patient without complaints. [...] of your health care provider. Copyright 2020 [facility]. All rights reserved. Clinically reviewed by Gala Singh RNC-OB, MSN. Tryouts [id number] - Rev 12/02. documented in this encounter [...] 3 03/30/2023 sertraline (ZOLOFT) 50 MG tabletIndications:Dain t mild episode of major depressive disorder, unspecified [...] Dr. Kelley Diane DO Obstetrics and Gynecology [facility] [place] * Kelley Diane DO - 05/02/2023 4:06 PM CDT [facility] Labor and Delivery History and Physical [...] be re-consulted if needs arise. DOUGLAS Snyder [facility] 05/04/2023 9:51 AM documented in this encounter Miscellaneous Notes * L&D Delivery Note - Kelley Diane DO - 05/04/2023 12:33 PM CDT OB Vaginal Delivery Note Merry Vargas Age: [age] year old Date of : 2000 GA: [id number] GP: Labor Complications: EBL: mL Delivery QBL: 100 mL Delivery Type: Vaginal, Spontaneous ROM to Delivery Time: (Delivered) Hours: 19 Minutes: 59 Weight: 3.19 kg (7 lb 0.5 oz) 1 Minute 5 Minute 10 Minute Totals: 8 9 KEVEN THAO;MAE SCOTT Delivery Details: Merry Vargas, a 22 year old female delivered a viable with apgars of 8 and 9 . Patient was fully dilated and pushing after hours minutes in active labor. Delivery was via vaginal, spontaneous to a sterile field under epidural anesthesia. delivered in vertex left occiput anterior position. [...] in good and stable condition. Aidan Vargas [[id number]] Labor Event Times Dilation complete date: 05/03/23 [...] Role Keven Thao RN Delivery Nurse Mae Scott, group social worker Assist Vaginal Counts Initial count performed by 2 team members: Two Team Members Dr. Benedicto Stern RN Imbler Suture Imbler Sponges (RETIRED) Instruments Initial counts 2 5 [...] Yes Cord Clamping Delay (seconds): 31-60 seconds Resuscitation Methods: None Care at Delivery: to maternal chest. Stimulation and bulb suction provided [place] Measurements Weight: 7 lb 0.5 oz Length: 1' 8.5 Head circumference: 33 cm Skin to Skin and Feeding Plan Skin to skin initiation date/time: 10/16/1840 Skin to skin with: Mother Skin to skin end date/time: Labor Events and Shoulder Dystocia Tracing Prior to Delivery: Category 1 Shoulder dystocia present?: Neg Delivery (Maternal) (Provider to Complete) ([id number]) Episiotomy: None Perineal lacerations: None Repair suture: None Blood Loss Mother: Kristina Vargas Willam #[id number] Start of Mother's Information Delivery Blood Loss 05/02/23 1419 - 05/04/23 0219 Delivery QBL (mL) Hospital Encounter 100 mL Total 100 mL End of Mother's Information Mother: Chaz Vargasvivek Quarles #[id number] Delivery - Provider to Complete ([id number]) Delivering clinician: Kelley Diane DO Delivery Type (Choose the 1 that will go to the History): Vaginal, Spontaneous Other personnel: Provider Role Keven Thao RN Delivery Nurse Mae Scott RN Delivery Assist Placenta Date/Time: 05/03/2023 2:23 AM Removal: [...] Dr. Diane Method of Notification In Department updated on patient status. Pt got an epidural about an hour ago and is comfortable. 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 [...] Diane DO LAB - BLOOD ORDER [facility] Acute Care Lab [address] [facility] (1st floor, no room number) [place] [address], [facility] [phone] * Adult Type and Screen (05/02/2023 9:21 AM CDT) ABO/RH(D) A POS 05/02/2023 8:50 AM CDT RH BLOOD BANK Antibody Screen Negative Negative 05/02/2023 8:50 AM CDT RH BLOOD BANK SPECIMEN EXPIRATION DATE [id number] 05/02/2023 8:50 AM CDT RH BLOOD BANK Blood BLOOD SPECIMEN / Unknown Venipuncture / Unknown 05/02/2023 9:21 AM CDT 05/02/2023 9:36 AM CDT Kelley Tobiase Benedicto [facility] LAB - BLOOD BANK TEST ORDER Performing Organization Address City/[facility]/ZIP Co de Phone Number BLOOD BANK [address] [place] [address], [facility] * Treponema Abs w Reflex to RPR and Titer (05/02/2023 9:21 AM CDT) Treponema Antibody Total Nonreactive Nonreactive 05/02/2023 3:59 PM CDT [facility] DO Blood BLOOD SPECIMEN / Unknown Venipuncture / Unknown 05/02/2023 9:21 AM CDT 05/02/2023 9:36 AM CDT Kelley Diane DO LAB - BLOOD ORDER [facility]/ENDO [facility]/Prot/Endo [address], Room [address] [place] [address], [facility] [phone] * (ABNORMAL) Hemoglobin (05/02/2023 9:21 AM CDT) Hemoglobin 9.2(L) 11.7 - 15.7 g/dL 05/02/2023 9:40 AM CDT LABORATORY Blood BLOOD SPECIMEN / Unknown Venipuncture / Unknown 05/02/2023 9:21 AM CDT 05/02/2023 9:36 AM CDT Kelley Diane DO LAB - BLOOD ORDER [facility] Acute Care Lab [address] [facility] (1st floor, no room number) [place] [address], [facility] [phone] documented in this encounter Visit Diagnoses Diagnosis [...] pharmacy to send epidural tubing set., Routine 1899 (Hold - Provider: Keven Thao RN - [...] Shake well. 1324 ($Given - Provider: Zainab Regalado, RN)1710 ($Given - Provider: Carol Darnell, LUCÍA) [...] at 0843 0912 ($Given - Provider: Zainab Regalado, LUCÍA) carboprost (HEMABATE) injection 250 mcg 250 mcg, [...] food. 0249 ($Given - Provider: Keven Thao, LUCÍA)1342 ($Given - Provider: Maite Delgado, LUCÍA) 0419 [...] discretion., 226 ($New Bag - Provider: Keven Thao RN)0250 ($New Bag - Provider: Keven Thao RN) oxytocin (PITOCIN) 30 units in 500 [...] documented as of this encounter Care Teams Narrow Gauge Brakeman Relationship Specialty Start Date End Date Abbey Bagley PA-C PCP - General Physician Structural Draftsman 08/15/20 Abeby Bagley PA-C Physician Structural Draftsman 04/11/20 05/02/23 Ino Robbins MD [address] [place] [address] Assigned OBGYN Provider 01/01/23 documented as of this encounter
--- OUTSIDE RECORDS SUMMARY | 2023-11-03 06:35 | XMS_ITS | Clinical Summary ---
Author Name Unknown Organization [place] Address [address] [place] [address] Care Team Providers Care Network Support Manager Name Role Phone Abbey Bagley PA-C Primary Care Provider Ino Ken MD Unavailable [phone] Allergies No known active allergies Medications Medication [...] IUD inserted : Due for removal 05/2026 5 05/04/2023 Immunizations Name Administration Dates Next [...] Answer Date Recorded PHQ-2 Score 0 04/14/2023 [place] Depression Scale Answer Date Recorded Last EPDS [...] 2023 09/30/2021, 2021 INFLUENZA VACCINE (#1) 2023 2, 10/21/2021, 07/01/2020, Additional history exists PHQ-9 09/29/2023 03/30/2023, 08/0 02/2021, 02/19/2021 CHLAMYDIA SCREENING 11/26/2023 11/26/2022, 09/21/2022, 12/23/2020, [...] Advance Directives For more information, please contact: [phone] Latest Code Status on File Code Status [...] with patient/ legal decision maker Care Teams Network Support Manager Relationship Specialty Start Date End Date Abbey Bagley PA-C PCP - General Physician Healthcare Educator 08/15/20 Ino Robbins MD [address] [place] [address] Assigned OBGYN Provider 01/01/23
--- OUTSIDE RECORDS SUMMARY | 2023-11-03 06:35 | XMS_ITS | Encounter Summary ---
Author Name Unknown Organization [facility] Address [address] [place] [address] Phone Care Team Providers Care Business Objects Architect Name Role Phone Unavailable Primary Care Provider Unavailabl e Reason for Visit * Reason Comments Blood Pressure Check Encounter Details Date Type Department Care Team Description 05/09/2023 Documentation Only [facility] [address] [place] [address] [phone] Kiana Borges RN [facility] [address] [place] [address] Blood Pressure Check Social History Tobacco Use [...]
--- OUTSIDE RECORDS SUMMARY | 2023-11-03 06:35 | XMS_ITS | Encounter Summary ---
Author Name Unknown Organization [place] Address [address] [place] [address] Care Team Providers Care Cigar Head Piercer Name Role Phone Abbey Bagley PA-C Unavailable Unavailable Abbey Bagley PA-C Primary Care Provider Americava ilIno Reynolds MD Unavailable Reason for Visit * Auth/Cert (Routine) Specialty Diagnoses / Procedures Referred By Bernardo t Referred To Contact freelance writer Diagnoses Indication for care in labor or delivery Indication for care in labor or delivery Rh [address] [place] [address] Referral ID Status Reason Start Date Expiration Date Visits Re quested Visits Authorized [id number] 1 1 Encounter Details Date Type Department Care Team (Late st Contact Info) Description 05/02/2023 8:35 PM CDT Anesthesia Event [facility] [address] [place] [address] Wagner Lynn MD [facility] ANESTHESIA [address] [place], [place] [address] Deangelo Gamboa MD [facility] [address] [place], [place] [address] Anesthesia Record Procedure Summary Procedure Name Responsible Anesthesiologist Anesthesia Start Time Anesthesia Stop Time LABOR ANALGESIA Wagner Lynn MD 05/02/23203405/03/23218 Events Date Time Event Comment 05/02/20232034 An Start 2034 AN FACE TIME IN 2051 An Facetime Out 05/03/2023218 An Stop Electronically signed by Leena Thao RN on May 03, 2023 2:23 AM Meds Name Total 0.25% Bupivacaine PF (Epidural) 10 mL 2% Lidocaine w/ 1:200K Epi (EPIDURAL) 2. 5 mL * Agents No agents on file. * Blood No blood administrations on file. Lines, Drains, and Airways Type Details Placement Removal Peripheral IV 05/02/23; 903; 18 G ; BD; Left, Posterior; Hand; Chlorhexidine; None; 1; Tolerated well 05/02/23 09 by Zainab Regalado RN 05/03/231644 by Lorrie Clifford RN Epidural 05/02/23; 2051; Physician; Epidural; L3-4; Leena Funes RN; Tip intact 05/02/232051 by Wagner Lynn MD 05/03/23239 by Leena Thao RN documented in this encounter Social History Tobacco Use Types Packs/Day Years Used Date Smoking Tobacco: Former Cigarettes 0.3 Q uit: 03/10/2023 Passive Smoke Exposure: Never Smokeless Tobacco: Never Alcohol Use Standard Drinks/Week Comments Not Currently 0 (1 standard drink = 0.6 oz pur e alcohol) Seldom PHQ-2 Answer Date Recorded PHQ-2 Score 0 04/14/2023 [place] Depression Scale Answer Date Recorded Last EPDS [...] nursing care at necessary intervals. JAKollitzMD FOR [facility] ([facility]) ONLY: Pain Team Contact information: please page the Pain Team Via [employer]Search Pain. During daytime hours, please page the [...] and realistic alternatives discussed. Questions answered and patient/delivery representative(s) expressed understanding. - Discussed: - Discussed [...] nursing care at necessary intervals. JAKollitzMD [facility] ([facility]) ONLY: ?? Pain Team Contact information: please page the Pain Team Via [employer]. Search Pain. During daytime hours, please page the attending first. At night please page the resident first. Wagner Lynn MD [place] ANESTHESIA documented in this encounter Visit Diagnoses Not on filedocumented in this encounter Administered Medications Inactive Administered Medications - up to 3 most recent administrations Medication Order MAR Action Action Date Dose Rate Site 0.25% Bupivacaine PF (Epidural) EPIDURAL, Starting on Tue05/02/23 at 2044, Anesthesia Intra-op $Given 05/02/2023 8:45 PM CDT 10 mLs lidocaine 2%-EPINEPHrine 1:200,000 injection EPIDURAL, Starting on Tue05/02/23 at 2039, Anesthesia Intra-op $Given 05/02/2023 8:40 PM CDT 2.5 mLs documented in this encounter Additional Health Concerns Assessment Noted Time PHQ-9 Depression Total Score: 21 023 12:25 PM CDT documented as of this encounter Care Teams Cigar Head Piercer Relationship Specialty Start Date End Date Abbey Bagley PA-C PCP - General Physician Repair Operator 08/15/20 Abbey Bagley PA-C Physician Repair Operator 04/11/20 05/02/23 Ino Robbins MD [address] [place] [address] Assigned OBGYN Provider 01/01/23 documented as of this encounter
--- OUTSIDE RECORDS SUMMARY | 2023-11-03 06:35 | XMS_ITS | Referral Summary ---
Author Name Unknown Organization [facility] Address [address] [place] [address] Care Team Providers Care Md Do Resident Urgent Care Name Role Phone Abbey Bagley PA-C Primary Care Provider Ino Ken MD Unavailable Allergies No known active allergies Medications Medication [...] Fumarate-FA ( MULTIVITAMIN W/IRON) 27-0.8 MG tabletIndications:Pre betsy care in third trimester Take 1 tablet [...] Answer Date Recorded PHQ-2 Score 0 04/14/2023 [place] Depression Scale Answer Date Recorded Last EPDS [...] Advance Directives For more information, please contact: [phone] Latest Code Status on File Code Status [...] with patient/ legal decision maker Care Teams Md Do Resident Urgent Care Relationship Specialty Start Date End Date Abbey Bagley PA-C PCP - General Physician Incoming Inspector 08/15/20 Ino Robbins MD [address] [place] [address] Assigned OBGYN Provider 3/25/23
--- OUTSIDE RECORDS SUMMARY | 2023-11-03 06:35 | XMS_ITS | Encounter Summary ---
Author Name Unknown Organization [facility] Address [address] [place] [address] Care Team Providers Care Employment Recruiter Name Role Phone Abbey Bagley PA-C Unavailable Unavailable Abbey Bagley PA-C Primary Care Provider Ino Ken MD Unavailable Encounter Details Date Type Department Care Team (Latest Contact Info) Description 05/02/2023 11:59 PM CDT Hospital Encounter [facility] [address] [place] [address] No Show Discharge Disposition: Home or Self Care Social History Tobacco Use Types Packs/Day Years Used Date Smoking Tobacco: Former Cigarettes 0.3 Q uit: 03/10/2023 Passive Smoke Exposure: Never Smokeless Tobacco: Never Alcohol Use Standard Drinks/Week Comments Not Currently 0 (1 standard drink = 0.6 oz pur e alcohol) Seldom PHQ-2 Answer Date Recorded PHQ-2 Score 0 04/14/2023 [place] Depression Scale Answer Date Recorded [place] Depression Score 13 03/10/2021 Last EPDS Self [...] documented as of this encounter Care Teams Employment Recruiter Relationship Specialty Start Date End Date Abbey Bagley PA-C PCP - General Physician Engineer Design And Construction 08/15/20 Abbey Bagley PA-C Physician Engineer Design And Construction 04/11/20 05/02/23 Ino Robbins MD [address] [place] [address] Assigned OBGYN Provider 01/01/23 documented as of this encounter
--- OUTSIDE RECORDS SUMMARY | 2023-11-03 06:35 | XMS_ITS | Encounter Summary ---
Author Name Unknown Organization [place] Address [address] [facility] [place] [address] Care Team Providers Care Supervisor Poultry Farm Name Role Phone Abbey Bagley PA-C Unavailable Unavailable Abbey Bagley PA-C Primary Care Provider Unava ilable Ino Robbins MD Unavailable Reason for Visit * Reason Comments Care Encounter Details Date Type Department Care Team (Late st Contact Info) Description 04/27/2023 3:45 PM CDT Office Visit [facility] [address] [place] [phone] Ino Robbins MD [address] [place], [place] [phone] care in third trimester (Primary Dx) Social History Tobacco Use Types Packs/Day Years Used Date Smoking Tobacco: Former Cigarettes 0.3 Q uit: 03/10/2023 Passive Smoke Exposure: Never Smokeless Tobacco: Never Alcohol Use Standard Drinks/Week Comments Not Currently 0 (1 standard drink = 0.6 oz pur e alcohol) Seldom PHQ-2 Answer Date Recorded PHQ-2 Score 0 04/14/2023 [place] Depression Scale Answer Date Recorded [place] Depression Score 13 03/10/2021 Last EPDS [...] documented as of this encounter Care Teams Supervisor Poultry Farm Relationship Specialty Start Date End Date Abbey Bagley PA-C PCP - General Physician Test Developer 08/15/20 Abbey Bagley PA-C Physician Test Developer 04/11/20 05/02/23 [place] [address] Assigned OBGYN Provider 01/01/23 documented as of this encounter
--- OUTSIDE RECORDS SUMMARY | 2023-11-03 06:35 | XMS_ITS | Encounter Summary ---
Author Name Unknown Organization [place] Address [facility] [place] [address] Care Team Providers Care Adventure Challenge Instructor Name Role Phone Abbey Bagley PA-C Unavailable Unavailable Abbey Bagley PA-C Primary Care Provider Ino Ken MD Unavailable [phone] Reason for Visit * Reason Comments Rule Out Labor Encounter Details Date Type Department Care Team (Latest Contact Info) Description 04/24/2023 11:01 PM CDT - 04/25/2023 1:18 AM CDT Hospital Encounter [facility] [address] [place] [address] Kelley Diane, DO [address] [place] [address] Discharge Disposition: Home or Self Care Social History Tobacco Use Types Packs/Day Years Used Date Smoking Tobacco: Former Cigarettes 0.3 Q uit: 03/10/2023 Passive Smoke Exposure: Never Smokeless Tobacco: Never Alcohol Use Standard Drinks/Week Comments Not Currently 0 (1 standard drink = 0.6 oz pur e alcohol) Seldom PHQ-2 Answer Date Recorded PHQ-2 Score 0 04/14/2023 [place] Depression Scale Answer Date Recorded [place] Depression Score 13 03/10/2021 Last EPDS Self [...] (see handout) Call your doctor or nurse retread mold operator if your baby is moving less [...] Your guide to early labor at home (Cuban) documented in this encounter Medications at Time [...] RN - 04/24/2023 11:48 PM CDT 04/24/23 8631 Provider Notification Provider Name/Title Dr. Diane Method [...] 144/68. No pre-e symptoms at this time. MD wants pre-e labs and serial blood pressure. [...] Diane DO LAB - URINE ORDER BROOKE [facility] Acute Care Lab [address] [facility] Lab (1st floor, no room number) [place] [address], [facility] [phone] * (ABNORMAL) CBC with platelets (04/25/2023 12:03 [...] LAB - BLOOD ORDER [facility] Acute Care Lab [address] Lab (1st floor, no room number) [place] [address], [facility] [phone] * (ABNORMAL) Comprehensive metabolic panel (04/25/2023 12:03 AM CDT) Pathologist [facility] Sodium 139 136 - 145 mmol/L 04/25/2023 1:05 AM CDT [facility] Potassium 4.3 3.4 - 5.3 mmol/L 04/25/2023 1:05 AM CDT [facility] Chloride 105 98 - 107 mmol/L 04/25/2023 1:05 AM CDT [facility] Carbon Dioxide (CO2) 23 22 - 29 mmol/L 04/25/2023 1:05 AM CDT [facility] Anion Gap 11 7 - 15 mmol/L 04/25/2023 1:05 AM CDT [facility] Urea Nitrogen 5.6(L) 6.0 - 20.0 mg/dL 04/25/2023 1:05 AM CDT [facility] Creatinine 0.72 0.51 - 0.95 mg/dL 04/25/2023 1:05 AM CDT [facility] Calcium 9.8 8.6 - 10.0 mg/dL 04/25/2023 1:05 AM CDT [facility] Glucose 101(H) 70 - 99 mg/dL 04/25/2023 1:05 AM CDT [facility] Alkaline Phosphatase 88 35 - 104 U/L 04/25/2023 1:05 AM CDT [facility] AST 17 0 - 45 U/L 04/25/2023 1:05 AM CDT [facility] [...] - 8.3 g/dL 04/25/2023 1:05 AM CDT [facility] Albumin 3.4(L) 3.5 - 5.2 g/dL 04/25/2023 1:05 AM CDT [facility] Bilirubin Total 0.3 <=1.2 mg/dL 04/25/2023 1:05 AM CDT [facility] GFR Estimate >90 >60 mL/min/1. 73m2 04/25/2023 1:05 AM CDT [facility] Blood STRUCTURE OF LEFT UPPER LIMB / Unknown Venipuncture / Unknown 04/25/2023 12:03 AM CDT 04/25/2023 12:16 AM CDT Kelley Gloriacat Diane DO LAB - BLOOD ORDER BROOKE [facility] Acute Care Lab [address] Lab (1st floor, no room number) [place] [address], [facility] [phone] documented in this encounter Visit Diagnoses Diagnosis [...] documented as of this encounter Care Teams Adventure Challenge Instructor Relationship Specialty Start Date End Date Abbey Bagley PA-C PCP - General Physician General Maintenance Mechanic 08/15/20 Abbey Bagley PA-C Physician General Maintenance Mechanic 04/11/20 05/02/23 Ino Robbins MD [address] [place] [address] Assigned OBGYN Provider 01/01/23 documented as of this encounter
--- OUTSIDE RECORDS SUMMARY | 2023-11-03 06:35 | XMS_ITS | Encounter Summary ---
Author Name Unknown Organization [facility] Address [address] [place] [address] Phone Care Team Providers Care Belt Loop Cutter Name Role Phone Unavailable Primary Care Provider Unavailabl e Reason for Visit * Reason Comments Psych Medication Management Encounter Details Date Type Department Care Team Description 05/09/2023 11:30 AM CDT Psych Rehab [facility] for [facility] [address] [place], [place] [phone] Karoline Benson MD [address] [facility] [address] [place], [place] [phone] Psych Medication Management Discharge Disposition: Discharged to [...] were not included. Mother Baby [facility], New Patient Psychiatry Evaluation Admitted to [facility] on: 05/09/23 Merry Rooney is a 22 y.o. mother of baby (Latha b. 05/03/23) and 2 year old son (Chuy). Referred by [facility] inpatient Cultural Context: white, Occitan and Arabic Pronouns: she/her/hers; Supports: Jesús -- supportive Therapist: ; PCP: ; OB-SURVEY CHIEF: Antonio Ob; Home Security Alarm Installer: Feeding Method: breast and bottle feeding with [...] symptoms and possible preeclampsia leading to transferto [facility] ICU. Seen by psychiatry (Dr Ortiz) at [facility], discontinued from her sertraline and started on [...] for admission to the [facility] and requires the structure, support and education [...] that is provided in the [facility]. Plan 1) Admit patient to the [facility] Discussed diagnosis and course and frame of [...] and back rather than drive herself from [place]. She'll talk with her about a sleep plan 2) MEDICATIONS: - Reviewed treatment options. Will cont seroquel 50mg hs and 12.5mg bid 3) LABS: Will review labs in Epic 4) Continue to monitor symptoms 5) Engage patient in individual and group therapy process in the [facility]. 6) Review old records. 7) Contact collateral informants as indicated. 8) Arrange appropriate outpatient follow-up at the conclusion of the [facility] Chief Concern I'm anxious all the time. I almost after I had my baby History of Present Illness Pertinent Background ([facility] notes reviewed) [place] well during . Had taken Sertraline 50mg [...] it and it was scary. Went to [facility] and had a seizure and almost . Life flighted to [facility]. 05/05-05/07/23 (discharge note from [facility]): transferred to [facility] for further management inthe ICU and seen [...] though she is getting ride here from [place]. Feels anxious all of the time and struggles with PTSD symptoms -- has nightmares related to trauma andflashbacks, hypervigilance, and triggered by things that remind her of the experience she had. Last night had a headache and took her blood pressure 160/100 --- went to [facility], it was 150/100 and then started on a blood pressure med. Also taking: -Seroquel 50mg HS and 12.5mg bid -- has helped with sleep and staying calm. -Had depression at 6 months -- took seroquel 25mg for anxiety and insomnia. Diagnosed with bipolar == Sep 2021 admitted voluntarily at [facility] (had been all over the place, felt [...] when she was 4. Mother lived in [place]. 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 Legal: no had involvement with the legal system. The patient reports the following spiritual and/or cultural history: Occitan and Arabic background Relationship to her partner/father/co-parent of the [...]
--- OUTSIDE RECORDS SUMMARY | 2023-11-03 06:35 | XMS_ITS | Encounter Summary ---
Author Name Unknown Organization [facility] Address [address] [place] [address] Phone Care Team Providers Care Drilling Inspector Name Role Phone Unavailable Primary Care Provider Unavailabl e Reason for Visit * Prior Authorization (Routine) - Closed Specialty Diagnoses / Procedures Referred By Contac t Referred To Contact Psych Rehab Diagnoses Bipolar II disorder () Trauma and stressor-related disorder Procedures MOTHER BABY ENROLLMENT Jazmine Potter, [facility] [address] [place] [address] [address] Referral ID Status Reason Start Date Expiration Date Visits Re quested Visits Authorized [id number] Closed 05/09/2023 06/24/2023 105 105 Encounter Details Date Type Department Care Team Description 05/10/2023 9:30 AM CDT Psych [facility] [address] [place] [phone] Karoline Benson MD [address] [facility] [address] [place], [place] [phone] Dh, Mother Baby Discharge Disposition: Discharged to [...] LICSW - 05/10/2023 9:30 AM CDT Dept: [facility] Type of Service: Group Therapy Name of Group: Psychoeducation/Skills Group Provider/Group Postpartum Nurse: Jazmine Potter LICSW Date of Service: 05/10/2023 Start Time: 9:30 AM Stop Time: 10:15 AM Number of Group Members Present: 4 Location of Service: Face to Face at [facility] SCHEDULING CLERK SERVICES PROVIDED (if applicable): No Session [...]
--- OUTSIDE RECORDS SUMMARY | 2023-11-03 06:35 | XMS_ITS | Encounter Summary ---
Author Name Unknown Organization [facility] Address [address] [place] [address] Phone Care Team Providers Care Turbine Room Attendant Name Role Phone Unavailable Primary Care Provider Unavailabl e Reason for Referral * Prior Authorization (Routine) - Closed Specialty Diagnoses / Procedures Referred By Contac t Referred To Contact Psych Rehab Diagnoses Bipolar II disorder () Trauma and stressor-related disorder Procedures MOTHER BABY ENROLLMENT Jazmine Potter [facility] [address] [place] [address] [address] Referral ID Status Reason Start Date Expiration Date Visits Re quested Visits Authorized [id number] Closed 05/09/2023 06/24/2023 105 105 Reason for Visit * Prior Authorization (Routine) - Closed Specialty Diagnoses / Procedures Referred By Contac t Referred To Contact Psych Rehab Diagnoses Bipolar II disorder () Trauma and stressor-related disorder Procedures MOTHER BABY ENROLLMENT Jazmine Potter [employer] [address] [place] [address] [address] Referral ID Status Reason Start Date Expiration Date Visits Re quested Visits Authorized [id number] Closed 05/09/2023 06/24/2023 105 105 Encounter Details Date Type Department Care Team Description 05/09/2023 9:30 AM CDT Psych Rehab [facility] [address] [place] [address] Karoline Benson MD [address] [facility] [address] [place] [address] Dh, Mother Baby Discharge Disposition: Discharged to [...] LICSW - 05/09/2023 9:30 AM CDT Dept: [facility] Type of Service: Group Therapy Name of Group: Psychoeducation/Skills Group Provider/Group Business Transformation Manager: Jazmine Potter LICSW Date of Service: 05/09/2023 Start Time: 9:30 AM Stop Time: 10:15 AM Number of Group Members Present: 3 Location of Service: Face to Face at [facility] HEAVY COIL WINDER SERVICES PROVIDED (if applicable): No [...]
--- OUTSIDE RECORDS SUMMARY | 2023-11-03 06:35 | XMS_ITS | Encounter Summary ---
Author Name Unknown Organization [facility] Address [address] [facility] [place] [address] Care Team Providers Care Audio Visual Design Engineer Name Role Phone Abbey Bagley PA-C Unavailable Unavailable Abbey Baglye PA-C Primary Care Provider Unava ilable Ino Robbins MD Unavailable [phone] Reason for Visit * Reason Onset Date Comments Care 04/26/2023 Encounter Details Date Type Department Care Team (Late st Contact Info) Description 04/26/2023 MyC Medical Advice [facility] [address] [place] [phone] Ino Robbins MD [address] [place], [place] [address] Care Social History Tobacco Use Types Packs/Day Years Used Date Smoking Tobacco: Former Cigarettes 0.3 Q uit: 03/10/2023 Passive Smoke Exposure: Never Smokeless Tobacco: Never Alcohol Use Standard Drinks/Week Comments Not Currently 0 (1 standard drink = 0.6 oz pur e alcohol) Seldom PHQ-2 Answer Date Recorded PHQ-2 Score 0 04/14/2023 [place] Depression Scale Answer Date Recorded [place] Depression Score 13 03/10/2021 Last EPDS Self [...] documented as of this encounter Care Teams Audio Visual Design Engineer Relationship Specialty Start Date End Date Abbey Bagley PA-C PCP - General Physician Multifocal Button Inspector 08/15/20 Abbey Bagley PA-C Physician Multifocal Button Inspector 04/11/20 05/02/23 Ino Robbins MD [address] [place] [address] Assigned OBGYN Provider 01/01/23 documented as of this encounter
--- OUTSIDE RECORDS SUMMARY | 2023-11-03 06:35 | XMS_ITS | Encounter Summary ---
Author Name Unknown Organization [facility] Address [address] [place] [address] Phone Care Team Providers Care System Support Developer Name Role Phone Unavailable Primary Care Provider Unavailabl e Encounter Details Date Type Department Care Team Description 05/11/2023 Plan of Care Documentation [facility] [address] [place], [place] [address] Social History Tobacco Use Types Packs/Day Years [...]
--- OUTSIDE RECORDS SUMMARY | 2023-11-03 06:35 | XMS_ITS | Encounter Summary ---
Author Name Unknown Organization [facility] Address [address] [place] [address] Phone Care Team Providers Care Stewardesses Teacher Name Role Phone Unavailable Primary Care Provider Unavailabl e Reason for Visit * Prior Authorization (Routine) - Closed Specialty Diagnoses / Procedures Referred By Contac t Referred To Contact Psych Rehab Diagnoses Bipolar II disorder () Trauma and stressor-related disorder Procedures MOTHER BABY ENROLLMENT Jazmine Potter, [facility] [address] [place] [address] [address] [address] Referral ID Status Reason Start Date Expiration Date Visits Re quested Visits Authorized [id number] Closed 05/09/2023 06/24/2023 105 105 Encounter Details Date Type Department Care Team Description 05/09/2023 10:15 AM CDT Psych [facility] [address] [place] [phone] Karoline Benson MD [address] [facility] [address] [place], [place] [address] Dh, Mother Baby Discharge Disposition: Discharged to [...] LICSW - 05/09/2023 10:15 AM CDT Dept: [facility] Type of Service: Group Therapy Name of Group: Psychotherapy Process Group Provider/Group Naval Aircrewman: Jazmine Potter LICSW Date of Service: 05/09/2023 Start Time: 10:15 AM Stop Time: 11:00 AM Number of Group Members Present: 2 Location of Service: Face to Face at [facility] CONSUMER INSIGHT ANALYST SERVICES PROVIDED (if applicable): No Session [...]
--- OUTSIDE RECORDS SUMMARY | 2023-11-03 06:35 | XMS_ITS | Encounter Summary ---
Author Name Unknown Organization [facility] Address [address] [place] [address] Phone Care Team Providers Care English Language Learner Tutor Name Role Phone Unavailable Primary Care Provider Unavailabl e Reason for Visit * Prior Authorization (Routine) - Closed Specialty Diagnoses / Procedures Referred By Contac t Referred To Contact Psych Rehab Diagnoses Bipolar II disorder () Trauma and stressor-related disorder Procedures MOTHER BABY ENROLLMENT Jazmine Potter, [facility] [address] [place] [phone] [address] Referral ID Status Reason Start Date Expiration Date Visits Re quested Visits Authorized [id number] Closed 05/09/2023 06/24/2023 105 105 Encounter Details Date Type Department Care Team Description 05/09/2023 1:45 PM CDT Psych Rehab [facility] [address] [place] [address] [phone] Karoline Benson MD [address] [facility] [address] [place], [place] [phone] Dh, Mother Baby Discharge Disposition: Discharged to [...] 05/09/2023 1:45 PM CDT Dept: [facility] Type of Service: Group Therapy Name of Group: Psychoeducation/Skills Group Provider/Group Account General Manager: Jazmine Potter LICSW Date of Service: 05/09/2023 Start Time: 1:45 PM Stop Time: 2:30 PM Number of Group Members Present: 5 Location of Service: Face to Face at [facility] Session Content (Intervention): The purpose of [...]
--- OUTSIDE RECORDS SUMMARY | 2023-11-03 06:35 | XMS_ITS | Encounter Summary ---
Author Name Unknown Organization [facility] Address [address] [place] [address] Phone Care Team Providers Care Vamp Liner Name Role Phone Unavailable Primary Care Provider Unavailabl e Reason for Visit * Prior Authorization (Routine) - Closed Specialty Diagnoses / Procedures Referred By Contac t Referred To Contact Psych Rehab Diagnoses Bipolar II disorder () Trauma and stressor-related disorder Procedures MOTHER BABY ENROLLMENT Jazmine Potter, [facility] [address] [place] [address] [address] Referral ID Status Reason Start Date Expiration Date Visits Re quested Visits Authorized [id number] Closed 05/09/2023 06/24/2023 105 105 Encounter Details Date Type Department Care Team Description 05/09/2023 12:30 PM CDT Psych Rehab [facility] [address] [place] [address] [phone] Karoline Benson MD [address] [facility] [address] [place], [place] [phone] Dh, Mother Baby Discharge Disposition: Discharged to [...] OTR/L - 05/09/2023 12:30 PM CDT Dept: [facility] Type of Service: Group Therapy Name of Group: Wellness Group Provider/Group University Controller: Alisha Hardy OTR/L Date of Service: 05/09/2023 Start Time: 12:45 PM Stop Time: 1:30 PM Number of Group Members Present: 5 Location of Service: Face to Face at [facility] POKER DEALER SERVICES PROVIDED (if applicable): No Session Content [...]
--- OUTSIDE RECORDS SUMMARY | 2023-11-03 06:36 | XMS_ITS | Encounter Summary ---
Author Name Unknown Organization [place] Address [address] [facility] [place] [address] Care Team Providers Care Supervisor Cemetery Workers Name Role Phone Abbey Bagley PA-C Unavailable Unavailable Abbey Bagley PA-C Primary Care Provider Ino Ken MD Unavailable [phone] Reason for Visit * Reason Comments Vaginal Bleeding Encounter Details Date Type Department Care Team (Latest Contact Info) Description 04/09/2023 1:24 PM CDT - 04/09/2023 3:18 PM CDT Hospital Encounter [facility] [address] [place] [phone] Christie Medellin MD [address] [place] [address] Discharge Disposition: Home or Self Care Social History Tobacco Use Types Packs/Day Years Used Date Smoking Tobacco: Some Days Cigarettes 0.3 Smokeless Tobacco: Never Alcohol Use Standard Drinks/Week Comments Not Currently 0 (1 standard drink = 0.6 oz pur e alcohol) Seldom PHQ-2 Answer Date Recorded PHQ-2 Score 4 03/30/2023 [place] Depression Scale Answer Date Recorded [place] Depression Score 13 03/10/2021 Last EPDS Self [...] (see handout) Call your doctor or nurse pediatric physician assistant if your baby is moving less than [...] Orde r Schedule Non Stress Test by Provider/field crop farming supervisor Routine One Time for 1 Occurrences starting [...] mg/dL 04/09/2023 2:42 PM CDT LABORATORY Specific [place] Urine 1.027 1.003 - 1.035 04/09/2023 2:42 [...] Medellin MD LAB - URINE ORDERABL ES LABORATORY [facility] [address] floor, [address] [place] [address], [place] [phone] * (ABNORMAL) Wet preparation (04/09/2023 2:29 PM [...] MD LAB - MICRO GENERAL ORDERABLES LABORATORY [facility] [address] floor, [address] [place] [address], [place] [phone] * NON-STRESS TEST - HIM SCAN (04/09/2023 [...] as of this encounter Care Teams Supervisor Cemetery Workers Relationship Specialty Start Date End Date Abbey Bagley PA-C PCP - General Physician Steam Presser 08/15/20 Abbey Bagley PA-C Physician Steam Presser 04/11/20 05/02/23 Ino Robbins MD [address] [place] [address] Assigned OBGYN Provider 01/01/23 documented as of this encounter
--- OUTSIDE RECORDS SUMMARY | 2023-11-03 06:36 | XMS_ITS | Encounter Summary ---
Author Name Unknown Organization [place] Address [address] [facility] [place] [address] Care Team Providers Care Compensation Advisor Name Role Phone Abbey Bagley PA-C Unavailable Unavailable Abbey Bagley PA-C Primary Care Provider Unava ilable Ino Robbins MD Unavailable Reason for Visit * Reason Comments Care Encounter Details Date Type Department Care Team (Late st Contact Info) Description 04/20/2023 1:30 PM CDT Office Visit [facility] [address] [place] [phone] Ino Robbins MD [address] [place] [address] care in third trimester (Primary Dx) Social History Tobacco Use Types Packs/Day Years Used Date Smoking Tobacco: Former Cigarettes 0.3 Q uit: 03/10/2023 Passive Smoke Exposure: Never Smokeless Tobacco: Never Alcohol Use Standard Drinks/Week Comments Not Currently 0 (1 standard drink = 0.6 oz pur e alcohol) Seldom PHQ-2 Answer Date Recorded PHQ-2 Score 0 04/14/2023 [place] Depression Scale Answer Date Recorded [place] Depression Score 13 03/10/2021 Last EPDS Self [...] documented as of this encounter Care Teams Compensation Advisor Relationship Specialty Start Date End Date Abbey Bagley PA-C PCP - General Physician Dedicated Truck Driver 08/15/20 Abbey Bagley PA-C Physician Dedicated Truck Driver 04/11/20 05/02/23 Ino Robbins MD [address] [place] [address] Assigned OBGYN Provider 01/01/23 documented as of this encounter
--- OUTSIDE RECORDS SUMMARY | 2023-11-03 06:36 | XMS_ITS | Encounter Summary ---
Author Name Unknown Organization [place] Address [address] [place] [address] Care Team Providers Care Financial Reporting Director Name Role Phone Abbey Bagley PA-C Unavailable [...] Answer Date Recorded PHQ-2 Score 4 03/30/2023 [place] Depression Scale Answer Date Recorded [place] Depression Score 13 03/10/2021 Last EPDS Self [...] documented as of this encounter Care Teams Financial Reporting Director Relationship Specialty Start Date End Date Abbey Bagley PA-C PCP - General Physician Mental Health Clinician 08/15/20 Abbey Bagley PA-C Physician Mental Health Clinician 04/11/20 05/02/23 Ino Robbins MD [address] [place] [address] Assigned OBGYN Provider 01/01/23 documented as of this encounter
--- OUTSIDE RECORDS SUMMARY | 2023-11-03 06:36 | XMS_ITS | Encounter Summary ---
Author Name Unknown Organization [facility] Address [address] [place] [address] Care Team Providers Care Mine Boss Name Role Phone Abbey Bagley PA-C Unavailable [...] Answer Date Recorded PHQ-2 Score 0 04/14/2023 [place] Depression Scale Answer Date Recorded [place] Depression Score 13 03/10/2021 Last EPDS Self [...] documented as of this encounter Care Teams Mine Boss Relationship Specialty Start Date End Date Abbey Bagley PA-C PCP - General Physician Health Club Manager 08/15/20 Abbey Bagley PA-C Physician Health Club Manager 04/11/20 05/02/23 Ino Robbins MD [address] [place] [address] Assigned OBGYN Provider 01/01/23 documented as of this encounter
--- OUTSIDE RECORDS SUMMARY | 2023-11-03 06:36 | XMS_ITS | Encounter Summary ---
Author Name Unknown Organization [facility] Address [address] [place] [address] Care Team Providers Care E Commerce Solution Architect Name Role Phone Abbey Bagley PA-C [...] Answer Date Recorded PHQ-2 Score 4 03/30/2023 [place] Depression Scale Answer Date Recorded [place] Depression Score 13 03/10/2021 Last EPDS Self [...] documented as of this encounter Care Teams E Commerce Solution Architect Relationship Specialty Start Date End Date Abbey Bagley PA-C PCP - General Physician Solid Waste Collector 08/15/20 Abbey Bagley PA-C Physician Solid Waste Collector 04/11/20 05/02/23 Ino Robbins MD [address] [place] [address] Assigned OBGYN Provider 01/01/23 documented as of this encounter
--- OUTSIDE RECORDS SUMMARY | 2023-11-03 06:36 | XMS_ITS | Encounter Summary ---
Author Name Unknown Organization [facility] Address [address] [place] [address] Care Team Providers Care Business Development Professional Name Role Phone Abbey Bagley PA-C Unavailable [...] Answer Date Recorded PHQ-2 Score 0 04/14/2023 [place] Depression Scale Answer Date Recorded [place] Depression Score 13 03/10/2021 Last EPDS Self [...] documented as of this encounter Care Teams Business Development Professional Relationship Specialty Start Date End Date Abbey Bagley PA-C PCP - General Physician Fishing Line Winding Machine Operator 08/15/20 Abbey Bagley PA-C Physician Fishing Line Winding Machine Operator 04/11/20 05/02/23 Ino Robbins MD [address] [place] [address] Assigned OBGYN Provider 01/01/23 documented as of this encounter
--- OUTSIDE RECORDS SUMMARY | 2023-11-03 06:36 | XMS_ITS | Encounter Summary ---
Author Name Unknown Organization [place] Address [address] [facility] [place] [address] Care Team Providers Care Nurses' Association Executive Director Name Role Phone Abbey Bagley PA-C Unavailable Unavailable Abbey Bagley PA-C Primary Care Provider Ino Ken MD Unavailable [phone] Reason for Visit * Reason Comments Care Encounter Details Date Type Department Care Team (Late st Contact Info) Description 04/14/2023 4:15 PM CDT Office Visit [facility] [place] [address] [place] [phone] Kelley Diane, DO [address] [facility] [address] [place] [address] care in third trimester (Primary Dx) Social History Tobacco Use Types Packs/Day Years Used Date Smoking Tobacco: Some Days Cigarettes 0.3 Passive Smoke Exposure: Never Smokeless Tobacco: Never Alcohol Use Standard Drinks/Week Comments Not Currently 0 (1 standard drink = 0.6 oz pur e alcohol) Seldom PHQ-2 Answer Date Recorded PHQ-2 Score 0 04/14/2023 [place] Depression Scale Answer Date Recorded [place] Depression Score 13 03/10/2021 Last EPDS Self [...] weeks, then weekly till delivery Phone numbers [place]: Day/ night [phone] ask for ob triage Emergency: Call labor and delivery: [phone] What should I call about?? Contraction every [...] mother is at rest and focused on [facility] Address [address] [facility], [place] [address] Dr. Kelley Diane, DO LEAD ACCOUNTANT [facility] documented in this encounter Progress Notes * [...] LABORATORY - 04/16/2023 9:09 AM CDT The CepCurbsyid Xpert GBS LB Assay, performed on the Livestation?? Instrument Systems, is a qualitative in vitro [...] or monitor treatment for GBS infections. The CepCurbsyid Xpert GBS LB Assay is intended for use in hospital, reference or state laboratory settings. The device is not intended for [id number] use. Kelley Diane DO LAB - MICRO GENER AL ORDERABLES [facility]ORAT[facility] Inf. Diseases Diag. Lab [address] [facility], [address] [place] [address], [facility] [phone] documented in this encounter Visit Diagnoses Diagnosis care in third trimester- Primary documented in this encounter Additional Health Concerns Assessment Noted Time PHQ-9 Depression Total Score: 21 023 12:25 PM CDT documented as of this encounter Care Teams Nurses' Association Executive Director Relationship Specialty Start Date End Date Abbey Bagley PA-C PCP - General Physician Retread Mold Operator 08/15/20 Abbey Bagley PA-C Physician Retread Mold Operator 04/11/20 05/02/23 Ino Robbins MD [address] [place] [address] Assigned OBGYN Provider 01/01/23 documented as of this encounter
--- OUTSIDE RECORDS SUMMARY | 2023-11-03 06:36 | XMS_ITS | Encounter Summary ---
Author Name Unknown Organization [place] Address [address] [facility] [place] [address] Care Team Providers Care Employment Instructional Associate Name Role Phone Abbey Bagley PA-C Unavailable Unavailable Abbey Bagley PA-C Primary Care Provider Unava ilable Ino Robbins MD Unavailable [phone] Reason for Visit * Reason Comments Medication Refill Encounter Details Date Type Department Care Team (Late st Contact Info) Description [facility] [address] [place] [address] [place] [address] Ino Robbins MD [address] [place] [address] Medication Refill Social History Tobacco Use Types Packs/Day Years Used Date Smoking Tobacco: Some Days Cigarettes 0.3 Smokeless Tobacco: Never Alcohol Use Standard Drinks/Week Comments Not Currently 0 (1 standard drink = 0.6 oz pur e alcohol) Seldom PHQ-2 Answer Date Recorded PHQ-2 Score 2 11/26/2022 [place] Depression Scale Answer Date Recorded [place] Depression Score 13 03/10/2021 Last EPDS Self [...] 02/10/2023 10:55 AM CDT Prescription approved per [facility] Refill Protocol. Last OV: 01/19/23 which provider [...] as of this encounter Care Teams Employment Instructional Associate Relationship Specialty Start Date End Date Abbey Bagley PA-C PCP - General Physician Welt Maker 08/15/20 Abbey Bagley PA-C Physician Welt Maker 04/11/20 05/02/23 Ino Robbins MD [facility] [place] [address] Assigned OBGYN Provider 01/01/23 documented as of this encounter
--- OUTSIDE RECORDS SUMMARY | 2023-11-03 06:36 | XMS_ITS | Encounter Summary ---
Author Name Unknown Organization [place] Address [address] [place] [address] Care Team Providers Care Machine Leather Trimmer Name Role Phone Abbey Bagley PA-C Unavailable Unavailable Abbey Bagley PA-C Primary Care Provider Ino Ken MD Unavailable [phone] Encounter Details Date Type Department Care Team (Latest Contact Info) Description 01/25/2023 Travel Social History Tobacco Use Types Packs/Day Years Used Date Smoking Tobacco: Some Days Cigarettes 0.3 Smokeless Tobacco: Never Alcohol Use Standard Drinks/Week Comments Not Currently 0 (1 standard drink = 0.6 oz pur e alcohol) Seldom PHQ-2 Answer Date Recorded PHQ-2 Score 2 11/26/2022 [place] Depression Scale Answer Date Recorded [place] Depression Score 13 03/10/2021 Last EPDS Self [...] documented as of this encounter Care Teams Machine Leather Trimmer Relationship Specialty Start Date End Date Abbey Bagley PA-C PCP - General Physician Barytes Grinder 08/15/20 Abbey Bagley PA-C Physician Barytes Grinder 04/11/20 05/02/23 Ino Robbins MD [address] [place] [address] Assigned OBGYN Provider 01/01/23 documented as of this encounter
--- OUTSIDE RECORDS SUMMARY | 2023-11-03 06:36 | XMS_ITS | Encounter Summary ---
Author Name Unknown Organization [place] Address [address] [facility] [place] [address] Care Team Providers Care Coffee Blender Name Role Phone Abbey Bagley PA-C Unavailable Unavailable Abbey Bagley PA-C Primary Care Provider Unava ilable Ino Robbins MD Unavailable Reason for Visit * Reason Comments Care Encounter Details Date Type Department Care Team (Late st Contact Info) Description 03/30/2023 11:45 AM CDT Office Visit [facility] [address] [place] [address] Ino Robbins MD [address] [place], [place] [address] care in third trimester (Primary Dx); HSV [...] Answer Date Recorded PHQ-2 Score 4 03/30/2023 [place] Depression Scale Answer Date Recorded [place] Depression Score 13 03/10/2021 Last EPDS [...] Body Mass Index 33.52 11/04/2022 3:15 PM ROUGHER FOR CEMENT documented in this encounter Progress Notes * Ino Robbins MD - 03/30/2023 11:45 AM CDT 22yo at 34w5d. Care has been intermittent due primarily to familial chaos. Moved to [place] and living arrangements were not as advertised. [...] Robbins MD LAB - BLOOD OR DERABLES CT LABORATORY [facility] [address] [facility], [address] [place] [address], [facility] [phone] * Treponema Abs w Reflex to RPR and Titer (03/30/2023 12:53 PM CDT) Pathologist [facility] Treponema Antibody Total Nonreactive Nonreactive 03/31/2023 9:50 AM CDT SPECIALTY CORE/PROT/EN DO Blood BLOOD SPECIMEN / Unknown Venipuncture / Unknown 03/30/2023 12:53 PM CDT 03/30/2023 12:53 PM CDT Ino Robbins MD LAB - BLOOD OR DERABLES [facility] SPECIALTY CORE/PROT/ENDO UM Specialty Core/Prot/Endo [address] [facility] [address] [facility], [address] [place] [address], [facility] [phone] * (ABNORMAL) CBC with platelets (03/30/2023 12:53 [...] Robbins MD LAB - BLOOD OR DERABLES RI LABORATORY [facility] [address] [facility], [address] [place] [address], [facility] [phone] documented in this encounter Visit Diagnoses Diagnosis care in third trimester- Primary HSV (herpes simplex virus) infection Herpes simplex without mention of complication documented in this encounter Additional Health Concerns Assessment Noted Time PHQ-9 Depression Total Score: 023 12:25 PM CDT documented as of this encounter Care Teams Coffee Blender Relationship Specialty Start Date End Date Abbey Bagley PA-C PCP - General Physician Wide Area Network Engineer 08/15/20 Abbey Bagley PA-C Physician Wide Area Network Engineer 04/11/20 05/02/23 Ino Robbins MD [address] [place] [address] Assigned OBGYN Provider 01/01/23 documented as of this encounter
--- OUTSIDE RECORDS SUMMARY | 2023-11-03 06:36 | XMS_ITS | Encounter Summary ---
Author Name Unknown Organization [place] Address [address] [facility] [place] [address] Care Team Providers Care Senior Business Intelligence Analyst Name Role Phone Abbey Bagley PA-C Unavailable Unavailable Abbey Bagley PA-C Primary Care Provider Ino Ken MD Unavailable Reason for Visit * Reason Comments Rule Out Labor Encounter Details Date Type Department Care Team (Latest Contact Info) Description 04/22/2023 12:14 PM CDT - 04/22/2023 3:10 PM CDT Hospital Encounter [facility] [address] [place] [phone] Vanessa Lopes MD [address] [place] [address] Discharge Disposition: Home or Self Care Social History Tobacco Use Types Packs/Day Years Used Date Smoking Tobacco: Former Cigarettes 0.3 Q uit: 03/10/2023 Passive Smoke Exposure: Never Smokeless Tobacco: Never Alcohol Use Standard Drinks/Week Comments Not Currently 0 (1 standard drink = 0.6 oz pur e alcohol) Seldom PHQ-2 Answer Date Recorded PHQ-2 Score 0 04/14/2023 [place] Depression Scale Answer Date Recorded [place] Depression Score 13 03/10/2021 Last EPDS Self [...] day. Activity: Call your doctor or nurse senior radiation therapist if your baby is moving less than [...] CDT Goal Outcome Evaluation: Patient present to [facility] for labor evaluation-patient was being seen by [...] as of this encounter Care Teams Senior Business Intelligence Analyst Relationship Specialty Start Date End Date Abbey Bagley PA-C PCP - General Physician [place] District Law Clerk 08/15/20 Abbey Bagley PA-C Physician Federal District Law Clerk 04/11/20 05/02/23 Ino Robbins MD [address] [place] [address] Assigned OBGYN Provider 01/01/23 documented as of this encounter
--- OUTSIDE RECORDS SUMMARY | 2023-11-03 06:36 | XMS_ITS | Encounter Summary ---
Author Name Unknown Organization [place] Address [address] [facility] [address] Care Team Providers Care Design Engineer Products Name Role Phone Abbey Bagley PA-C Unavailable Unavailable Abbey Bagley PA-C Primary Care Provider Ino Ken MD Unavailable [phone] Encounter Details Date Type Department Care Team (Late st Contact Info) Description 04/01/2023 8:30 AM CDT Lab [facility] [address] [place] [address] Abnormal maternal glucose tolerance, antepartum Social History Tobacco Use Types Packs/Day Years Used Date Smoking Tobacco: Some Days Cigarettes 0.3 Smokeless Tobacco: Never Alcohol Use Standard Drinks/Week Comments Not Currently 0 (1 standard drink = 0.6 oz pur e alcohol) Seldom PHQ-2 Answer Date Recorded PHQ-2 Score 4 03/30/2023 [place] Depression Scale Answer Date Recorded [place] Depression Score 13 03/10/2021 Last EPDS [...] Robbins MD LAB - BLOOD OR DERABLES U LABORATORY [facility] [place] [facility] [address] [facility], [address] [place] [phone], [place] [phone] * Gestational Glucose Tolerance Testing, 2 Hour (04/01/2023 10:38 AM CDT) Gestational GTT 2 Hr Post Dose 117 60 - 154 mg/dL 04/02/2023 12:23 AM CDT [facility] LABORATORY Blood BLOOD SPECIMEN / Unknown Venipuncture / Unknown 04/01/2023 10:38 AM CDT 04/01/2023 10:38 AM CDT Ino Robbins MD LAB - BLOOD OR DERABLES Performing Organization Address [facility] de Phone Number U LABORATORY [facility] [place] [facility] [address] [facility], [address] [place] [phone], [place] [phone] * Gestational Glucose Tolerance Testing, 1 Hour (04/01/2023 9:37 AM CDT) Gestational GTT 1 Hr Post Dose 151 60 - 179 mg/dL 04/02/2023 12:16 AM CDT U LABORATORY Blood BLOOD SPECIMEN / Unknown Venipuncture / Unknown 04/01/2023 9:37 AM CDT 04/01/2023 9:37 AM CDT Ino Robbins MD LAB - BLOOD OR DERABLES LABORATORY [facility] [place] [facility] [address] [facility], [address] [place] [address], [place] [phone] * Gestational Glucose Tolerance Testing, Fasting (04/01/2023 8:31 AM CDT) Gestational GTT Fasting 89 60 - 94 mg/dL 04/01/2023 7:17 PM CDT [facility] LABORATORY Blood BLOOD SPECIMEN / Unknown Venipuncture / Unknown 04/01/2023 8:31 AM CDT 04/01/2023 8:35 AM CDT Ino Robbins MD LAB - BLOOD OR DERABLES UU LABORATORY [facility] [address] [facility], [address] [place] [address], [place] [phone] documented in this encounter Visit Diagnoses Diagnosis Abnormal maternal glucose tolerance, antepartum documented in this encounter Additional Health Concerns Assessment Noted Time PHQ-9 Depression Total Score: 21 023 12:25 PM CDT documented as of this encounter Care Teams Design Engineer Products Relationship Specialty Start Date End Date Abbey Bagley PA-C PCP - General Physician Spring Coiler 08/15/20 Abbey Bagley PA-C Physician Spring Coiler 04/11/20 05/02/23 Ino Robbins MD [address] [place] [address] Assigned OBGYN Provider 01/01/23 documented as of this encounter
--- OUTSIDE RECORDS SUMMARY | 2023-11-03 06:36 | XMS_ITS | Encounter Summary ---
Author Name Unknown Organization [place] Address [address] [place] [address] Care Team Providers Care Air Defence Officer Name Role Phone Abbey Bagley PA-C [...] Answer Date Recorded PHQ-2 Score 2 11/26/2022 [place] Depression Scale Answer Date Recorded [place] [...] documented as of this encounter Care Teams Air Defence Officer Relationship Specialty Start Date End Date Abbey Bagley PA-C PCP - General Physician Goodyear Stitcher 08/15/20 Abbey Bagley PA-C Physician Goodyear Stitcher 04/11/20 05/02/23 Ino Robbins MD [address] [place] [address] Assigned OBGYN Provider 01/01/23 documented as of this encounter
--- OUTSIDE RECORDS SUMMARY | 2023-11-03 06:36 | XMS_ITS | Encounter Summary ---
Author Name Unknown Organization [place] Address [address] [place] [address] Care Team Providers Care Deputy County Clerk Name Role Phone Abbey Bagley PA-C [...] Answer Date Recorded PHQ-2 Score 4 03/30/2023 [place] Depression Scale Answer Date Recorded [place] Depression Score 13 03/10/2021 Last EPDS Self [...] documented as of this encounter Care Teams Deputy County Clerk Relationship Specialty Start Date End Date Abbey Bagley PA-C PCP - General Physician Hydraulic Miner Blasting 08/15/20 Abbey Bagley PA-C Physician Hydraulic Miner Blasting 04/11/20 05/02/23 Ino Robbins MD [address] [place] [address] Assigned OBGYN Provider 01/01/23 documented as of this encounter
--- OUTSIDE RECORDS SUMMARY | 2023-11-03 06:36 | XMS_ITS | Encounter Summary ---
Author Name Unknown Organization [place] Address [address] [facility] [place] [address] Care Team Providers Care Spike Maker Name Role Phone Abbey Bagley PA-C Unavailable Unavailable Abbey Bagley PA-C Primary Care Provider Unava ilable Ino Robbins MD Unavailable [phone] Reason for Visit * Reason Comments Med Change Request Encounter Details Date Type Department Care Team (Late st Contact Info) Description 03/01/2023 [facility] [address] [facility] [address] [place] [phone] Ino Robbins MD [address] [place] [address] Med Change Request Social History Tobacco Use Types Packs/Day Years Used Date Smoking Tobacco: Some Days Cigarettes 0.3 Smokeless Tobacco: Never Alcohol Use Standard Drinks/Week Comments Not Currently 0 (1 standard drink = 0.6 oz pur e alcohol) Seldom PHQ-2 Answer Date Recorded PHQ-2 Score 2 11/26/2022 [place] Depression Scale Answer Date Recorded [place] Depression Score 13 03/10/2021 Last EPDS Self [...] 03/01/2023 12:31 PM CDT Prescription approved per [facility] Refill Protocol. Diana Rodrigues RN documented in this encounter Plan of Treatment Not on file documented as of this encounter Visit Diagnoses Diagnosis HSV (herpes simplex virus) infection Herpes simplex without mention of complication documented in this encounter Additional Health Concerns Assessment Noted Time PHQ-9 Depression Total Score: 19 021 3:52 PM CDT documented as of this encounter Care Teams Spike Maker Relationship Specialty Start Date End Date Abbey Bagley PA-C PCP - General Physician Car Mechanic Helper 08/15/20 Abbey Bagley PA-C Physician Car Mechanic Helper 04/11/20 05/02/23 Ino Robbins MD [address] [place] [address] Assigned OBGYN Provider 01/01/23 documented as of this encounter
--- OUTSIDE RECORDS SUMMARY | 2023-11-03 06:36 | XMS_ITS | Encounter Summary ---
Author Name Unknown Organization [place] Address [address] [facility] [place] [address] Care Team Providers Care Water And Sewer Systems Supervisor Name Role Phone Abbey Bagley PA-C Unavailable Unavailable Abbey Bagley PA-C Primary Care Provider Unava ilable Ino Robbins MD Unavailable [phone] Encounter Details Date Type Department Care Team (Late st Contact Info) Description 03/30/2023 Orders Only [facility] [place] [address] [facility] [address] [place] [address] Ino Robbins MD [address] [place] [address] Abnormal maternal glucose tolerance, antepartum (Primary Dx) Social History Tobacco Use Types Packs/Day Years Used Date Smoking Tobacco: Some Days Cigarettes 0.3 Smokeless Tobacco: Never Alcohol Use Standard Drinks/Week Comments Not Currently 0 (1 standard drink = 0.6 oz pur e alcohol) Seldom PHQ-2 Answer Date Recorded PHQ-2 Score 4 03/30/2023 [place] Depression Scale Answer Date Recorded [place] Depression Score 13 03/10/2021 Last EPDS Self [...] documented as of this encounter Care Teams Water And Sewer Systems Supervisor Relationship Specialty Start Date End Date Abbey Bagley PA-C PCP - General Physician Six Pack Packer 08/15/20 Abbey Bagley PA-C Physician Six Pack Packer 04/11/20 05/02/23 Ino Robbins MD [address] [place] [address] Assigned OBGYN Provider 01/01/23 documented as of this encounter
--- OUTSIDE RECORDS SUMMARY | 2023-11-03 06:36 | XMS_ITS | Encounter Summary ---
Author Name Unknown Organization [place] Address [address] [place] [address] Care Team Providers Care Operations Representative Name Role Phone Abbey Bagley PA-C Unavailable [...] Answer Date Recorded PHQ-2 Score 0 04/14/2023 [place] Depression Scale Answer Date Recorded [place] Depression Score 13 03/10/2021 Last EPDS Self [...] documented as of this encounter Care Teams Operations Representative Relationship Specialty Start Date End Date Abbey Bagley PA-C PCP - General Physician Public Health Dietitian 08/15/20 Abbey Bagley PA-C Physician Public Health Dietitian 04/11/20 05/02/23 Ino Robbins MD [address] [place] [address] Assigned OBGYN Provider 01/01/23 documented as of this encounter
--- OUTSIDE RECORDS SUMMARY | 2023-11-03 06:36 | XMS_ITS | Encounter Summary ---
Author Name Unknown Organization [place] Address [facility] [place] [address] Care Team Providers Care Operator Bearer Systems Name Role Phone Abbey Bagley PA-C Unavailable Unavailable Abbey Bagley PA-C Primary Care Provider Ino Ken MD Unavailable [phone] Reason for Visit * Reason Comments Decreased Movement Abdominal Cramping Encounter Details Date Type Department Care Team (Latest Contact Info) Description 04/12/2023 3:31 PM CDT - 04/12/2023 5:05 PM CDT Hospital Encounter [facility] [address] [place] [phone] Kelley Diane, DO [address] [place] [address] Encounter for triage in patient (Primary Dx) [...] Answer Date Recorded PHQ-2 Score 4 03/30/2023 [place] Depression Scale Answer Date Recorded [place] Depression Score 13 03/10/2021 Last EPDS [...] (see handout) Call your doctor or nurse enterprise integration architect if your baby is moving less than [...] sent through Care Everywhere. * Kick Counts (Tajik) documented in this encounter Medications at Time of Discharge Medication Sig Dispensed Refills Start Date End Date albuterol (PROAIR HFA/PROVENTIL HFA/VENTOLIN HFA) 108 (90 Base) MCG/ACT inhaler Inhale 1 puff into the lungs 0 11/26/2019 Vit-Fe Fumarate-FA ( MULTIVITAMIN W/IRON) 27-0.8 MG tabletIndications:Ireneat al care in third trimester Take 1 [...] home at 1705. * Provider Notification - eBrnadette Blair RN - 04/12/2023 4:54 PM CDT [...] the bathroom, patient seen on 04/09 at [facility] for similar complaints. MD updated [...] Orde r Schedule Non Stress Test by Provider/grinding machine operator Routine One Time for 1 [...] intrauterine gestation in cephalic presentation. 2. ??Normal /8 biophysical profile. Narrative 04/12/2023 4:53 PM CDT EXAM: US OB BIOPHY PROFILE W/O NST SINGLE W/LTD LOCATION: [facility] DATE: 04/12/2023 INDICATION: 36w4d with decreased movement COMPARISON: None. FINDINGS: Single living fetus, cephalic presentation. HEART RATE: 149 bpm. SDP 5.2 cm. PLACENTA: Anterior. No previa. CERVIX: Not visualized. 2/2 breathing 2/2 movements 2/2 tone 2/2 amniotic fluid Total biophysical profile 05/17 Procedure Note Danyell Hi MD - 04/12/2023 EXAM: US OB BIOPHY PROFILE W/O NST SINGLE W/LTD LOCATION: [facility] DATE: 04/12/2023 INDICATION: 36w4d with decreased [...] documented as of this encounter Care Teams Operator Bearer Systems Relationship Specialty Start Date End Date Abbey Bagley PA-C PCP - General Physician Machine Taper 08/15/20 Abbey Bagley PA-C Physician Machine Taper 04/11/20 05/02/23 Ino Robbins MD [address] [place] [address] Assigned OBGYN Provider 01/01/23 documented as of this encounter
--- OUTSIDE RECORDS SUMMARY | 2023-11-03 06:37 | XMS_ITS | Encounter Summary ---
Author Name Unknown Organization [place] Address [address] [facility] [place] [place] [address] Care Team Providers Care Retail Services Professional Name Role Phone Abbey Bagley PA-C Unavailable Unavailable Abbey Bagley PA-C Primary Care Provider Unava ilIno Reynolds MD Unavailable Reason for Visit * Reason Comments Ultrasound L2-LVOT not well see n Encounter Details Date Type Department Care Team (Late st Contact Info) Description 01/19/[address] [facility] [place] [address] [facility] [address] [place] [address] Michelle Avina, LUCÍA Ultrasound (L2-LVOT not well seen) Social History Tobacco Use Types Packs/Day Years Used Date Smoking Tobacco: Some Days Cigarettes 0.3 Smokeless Tobacco: Never Alcohol Use Standard Drinks/Week Comments Not Currently 0 (1 standard drink = 0.6 oz pur e alcohol) Seldom PHQ-2 Answer Date Recorded PHQ-2 Score 2 11/26/2022 [place] Depression Scale Answer Date Recorded [place] Depression Score 13 03/10/2021 Last EPDS Self [...] documented as of this encounter Care Teams Retail Services Professional Relationship Specialty Start Date End Date Abbey Bagley PA-C PCP - General Physician Rejected Items Clerk 08/15/20 Abbey Bagley PA-C Physician Rejected Items Clerk 04/11/20 05/02/23 Ino Robbins MD [facility] [place] [address] Assigned OBGYN Provider 01/01/23 documented as of this encounter
--- OUTSIDE RECORDS SUMMARY | 2023-11-03 06:37 | XMS_ITS | Encounter Summary ---
Author Name Unknown Organization [place] Address [facility] [place] [address] Care Team Providers Care Senior Mechanical Estimator Name Role Phone Abbey Bagley PA-C Unavailable Unavailable Abbey Bagley PA-C Primary Care Provider Kelley Ko DO Unavailable [phone] Encounter Details Date Type Department Care Team (Latest Contact Info) Description 12/12/2022 Travel Social History Tobacco Use Types Packs/Day Years Used Date Smoking Tobacco: Some Days Cigarettes 0.3 Smokeless Tobacco: Never Alcohol Use Standard Drinks/Week Comments Not Currently 0 (1 standard drink = 0.6 oz pur e alcohol) Seldom PHQ-2 Answer Date Recorded PHQ-2 Score 2 11/26/2022 [place] Depression Scale Answer Date Recorded [place] Depression Score 13 03/10/2021 Last EPDS Self [...] Coronavirus/COVID-19? No / Unsure 12/12/2022 12:48 PM MEDICAL TECHNOLOGIST BLOOD BANK documented as of this encounter Plan of Treatment Not on file documented as of this encounter Visit Diagnoses Not on filedocumented in this encounter Additional Health Concerns Assessment Noted Time PHQ-9 Depression Total Score: 19 05/14/ 021 3:52 PM CDT documented as of this encounter Care Teams Senior Mechanical Estimator Relationship Specialty Start Date End Date Abbey Bagley PA-C PCP - General Physician Service Advisor 08/15/20 Abbey Bagley PA-C Physician Service Advisor 04/11/20 05/02/23 Kelley Diane DO [address] [address] Assigned OBGYN Provider 12/04/22 documented as of this encounter
--- OUTSIDE RECORDS SUMMARY | 2023-11-03 06:37 | XMS_ITS | Encounter Summary ---
Author Name Unknown Organization [place] Address [facility] [place] [address] Care Team Providers Care Rubber And Plastics Worker Name Role Phone Abbey Bagley PA-C Unavailable Unavailable Abbey Bagley PA-C Primary Care Provider Kelley Ko DO Unavailable Encounter Details Date Type Department Care Team (Latest Contact Info) Description 12/24/2022 Travel Social History Tobacco Use Types Packs/Day Years Used Date Smoking Tobacco: Some Days Cigarettes 0.3 Smokeless Tobacco: Never Alcohol Use Standard Drinks/Week Comments Not Currently 0 (1 standard drink = 0.6 oz pur e alcohol) Seldom PHQ-2 Answer Date Recorded PHQ-2 Score 2 11/26/2022 [place] Depression Scale Answer Date Recorded [place] Depression Score 13 03/10/2021 Last EPDS [...] documented as of this encounter Care Teams Rubber And Plastics Worker Relationship Specialty Start Date End Date Abbey Bagley PA-C PCP - General Physician Metal Tube Cutter 08/15/20 Abbey Bagley PA-C Physician Metal Tube Cutter 04/11/20 05/02/23 Kelley Diane DO [address] [address] Assigned OBGYN Provider 12/04/22 documented as of this encounter
--- OUTSIDE RECORDS SUMMARY | 2023-11-03 06:37 | XMS_ITS | Encounter Summary ---
Author Name Unknown Organization [place] Address [address] [facility] [place] [address] Care Team Providers Care Supervisor Plastic Sheets Name Role Phone Abbey Bagley PA-C Unavailable Unavailable Abbey Bagley PA-C Primary Care Provider Unava ilable Ino Guardado MD Unavailable Reason for Referral * Diagnostic Imaging Ultrasound (Routine) - Pending Review Specialty Diagnoses / Procedures Referred By Contreno t Referred To Contact Radiology. Diagnoses related condition, antepartum Procedures [facility] US Comprehensive Single Ino Guardado MD [address] [place] [address] Referral ID Status Reason Start Date Expiration Date V isits Requested Visits Authorized [id number] Pending Review 01/19/2023 01/19/2024 1 1 Encounter Details Date Type Department Care Team (Late st Contact Info) Description 01/19/2023 Transcribe Orders [facility] [place] [address] [place] [phone] Ino Guardado MD [address] [place], [place] [id number] related condition, antepartum (Primary Dx) Social History Tobacco Use Types Packs/Day Years Used Date Smoking Tobacco: Some Days Cigarettes 0.3 Smokeless Tobacco: Never Alcohol Use Standard Drinks/Week Comments Not Currently 0 (1 standard drink = 0.6 oz pur e alcohol) Seldom PHQ-2 Answer Date Recorded PHQ-2 Score 2 11/26/2022 [place] Depression Scale Answer Date Recorded [place] Depression Score 13 03/10/2021 Last EPDS Self [...] documented as of this encounter Results * [facility] Comprehensive Single (01/25/2023 11:28 AM [...] 11:14 AM CDT Comprehensive ----- Pat. Name: RICHIE JACK Study Date: 01/25/2023 10:19am Pat. NO: [id number] Referring ??MD: INO GUARDADO Site: [facility] Air Quality Engineer: Arthur Herman RDMS : 2000 Age: 22 [...] lb 13 ? oz EFW by ?Hadlock ([id number]) Head / Face / Neck Biometry: Event Technician ? 7.7 ? mm CM ?6.9 ? [...] vena cava. Inferior vena cava. 3-vessel view. 1-adwjyt-iexrmra view. ? Cardiac position. Cardiac size. Cardiac [...] Pat. Name:Loki JACK Date:01/25/2023 10:19am Pat. NO: [id number] MD:INO GUARDADO [facility]Arthur Herman RDMS :2000Age:22 ----- INDICATION ----- LVOT [...] (lb,oz) 1 lb 13 oz EFW by Lawanda (TAQ-[id number]-FL) Head / Face / Neck Biometry: Event Technician 7.7 mm CM 6.9 mm ANATOMY ----- The following structures appear normal: Head / Neck Cranium. Head size. Head shape.Lateral ventricles. Choroid plexus. Midline falx. Cavum septi pellucidi.Cerebellum. Cisterna magna. Parenchyma. Thalami. Vermis. Neck. Face Lips. Heart / Thorax RVOT view. LVOT view. Situs. Aorticarch view. Bicaval view. Superior vena cava. Inferior vena cava. 3-vesselview. 4-heqdop-mnxlfev view. Cardiac position. Cardiac size.Cardiac rhythm. Diaphragm. [...] anatomy appeared otherwise normal for gestational age. Ino Guardado MD [facility] ORD ERABLES documented in this encounter Visit Diagnoses Diagnosis related condition, antepartum- Primary related condition, antepartum documented in this encounter Additional Health Concerns Assessment Noted Time PHQ-9 Depression Total Score: 021 3:52 PM CDT documented as of this encounter Care Teams Supervisor Plastic Sheets Relationship Specialty Start Date End Date Abbey Bagley PA-C PCP - General Physician Hand Flesher 08/15/20 Abbey Bagley PA-C Physician Hand Flesher 04/11/20 05/02/23 Ino Guardado MD [address] [place] [address] Assigned OBGYN Provider 01/01/23 documented as of this encounter
--- OUTSIDE RECORDS SUMMARY | 2023-11-03 06:37 | XMS_ITS | Encounter Summary ---
Author Name Unknown Organization [place] Address [address] [place] [address] Care Team Providers Care Offc Spec Name Role Phone Abbey Bagley PA-C Unavailable Unavailable Abbey Bagley PA-C Primary Care Provider Kelley Ko DO Unavailable Reason for Visit * Diagnostic Imaging Ultrasound (Routine) - Pending Review Specialty Diagnoses / Procedures Referred By Bernardo belle Referred To Contact Radiology. Diagnoses care in second trimester Procedures US OB >14 Weeks Follow Up Ino Robbins MD [address] [place] [address] Referral ID Status Reason Start Date Expiration Date V isits Requested Visits Authorized [id number] Pending Review 12/14/2022 12/14/2023 1 1 Encounter Details Date Type Department Care Team (Late st Contact Info) Description 12/30/2022 3:40 PM CDT Ancillary Procedure [address] [address] Ino Robbins MD [address] [place], [place] [id number] care in second trimester Social History Tobacco Use Types Packs/Day Years Used Date Smoking Tobacco: Some Days Cigarettes 0.3 Smokeless Tobacco: Never Alcohol Use Standard Drinks/Week Comments Not Currently 0 (1 standard drink = 0.6 oz pur e alcohol) Seldom PHQ-2 Answer Date Recorded PHQ-2 Score 2 11/26/2022 [place] Depression Scale Answer Date Recorded [place] Depression Score 13 03/10/2021 Last EPDS Self [...] from the original result was not included. [facility] ULTRASOUND - OB FOLLOW UP > 14 [...] documented as of this encounter Care Teams Offc Spec Relationship Specialty Start Date End Date Abbey Bagley PA-C PCP - General Physician Clerical Assigner 08/15/20 Abbey Bagley PA-C Physician Clerical Assigner 04/11/20 05/02/23 Kelley Diane DO [address] [address] Assigned OBGYN Provider 12/04/22 documented as of this encounter
--- OUTSIDE RECORDS SUMMARY | 2023-11-03 06:37 | XMS_ITS | Encounter Summary ---
Author Name Unknown Organization [place] Address [facility] [place] [address] Care Team Providers Care Medical Staff Services Manager Name Role Phone Abbey Bagley PA-C Unavailable Unavailable Abbey Bagley PA-C Primary Care Provider Unava ilable Reason for Visit * Reason Comments Care New visit 1 7 weeks 0 days Labs & G/C due U/S 11/04 & 12/13/2022 Encounter Details Date Type Department Care Team (Late st Contact Info) Description 11/26/2022 1:30 PM DRYWALL HANGER HELPER Office Visit [facility] [place] [address] [place] [phone] Kelley Diane, DO [address] [facility] [address] [place] [address] Screen for STD (sexually transmitted disease) (Primary [...] Answer Date Recorded PHQ-2 Score 2 11/26/2022 Peck Depression Scale Answer Date Recorded Peck Depression Score 13 03/10/2021 Last EPDS Self [...] Coronavirus/COVID-19? No / Unsure 11/26/2022 1:26 PM DRYWALL HANGER HELPER documented as of this encounter Last Filed Vital Signs Vital Sign Reading Time Taken Comments Blood Pressure 92/64 11/26/2022 1:32 PM DRYWALL HANGER HELPER Pulse - - Temperature - - Respiratory Rate - - Oxygen Saturation - - Inhaled Oxygen Concentration - - Weight 89.9 kg (198 lb 4.8 oz) 11/26/2022 1:32 P M DRYWALL HANGER HELPER Height - - Body Mass Index 31.06 11/04/2022 3:15 PM DRYWALL HANGER HELPER documented in this encounter Patient Instructions * Patient Instructions* Kelley Diane, - 11/26/2022 1:30 PM DRYWALL HANGER HELPER Labs today Return 4 weeks Return to clinic: every 4 weeks till 28 weeks, then every 2 weeks till 36 weeks, then weekly till delivery Phone numbers [place]: Day/ night [phone] ask for ob triage Emergency: Call labor and delivery: [phone] What should I call about?? Contraction every [...] mother is at rest and focused on counting [facility] Address [address], [place] [address] Dr. Kelley Diane DO INSTRUCTOR BUS TROLLEY AND TAXI [facility] and [facility] ALL HANGER HELPER documented in this encounter Progress Notes * [...] no PERSONAL HISTORY Exercise Habits: normal Employment: [employer] Her job involves no activity with no [...] or equivalent Occupational History ??? 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 Smoking status: Some Days [...] GENITALIA: BUS WNL, no lesions noted VAGINA: [place], normal rugae and discharge normal and physiologic, [...] Return: [address] Kelley Diane DO INSTRUCTOR [employer] TROLLEY [employer]AXI [facility] ALL HANGER HELPER documented in this encounter Nursing Notes * Kristyn Garland, STUDY ASSISTANT - 11/26/2022 1:30 PM CST Chief Complaint [...] Garland CMA on 11/26/2022 at 1:35 PM ALL HANGER HELPER documented in this encounter Plan of Treatment Scheduled Orders Name Type Priority Associated Diagnoses Orde r Schedule NEISSERIA GONORRHOEA PCR Microbiology Routine Screen for STD (sexually transmitted disease) Ordered: 11/26/2022 documented as of this encounter Procedures Procedure Name Priority Date/Time Associated Diagnosis Comments URINE CULTURE Routine 11/26/2022 2:37 PM DRYWALL HANGER HELPER Encounter for supervision of other normal in second trimester TYPE AND SCREEN, ADULT Routine 11/26/2022 2:16 PM DRYWALL HANGER HELPER Encounter for supervision of other normal in second trimester RUBELLA ANTIBODY IGG Routine 11/26/2022 2:16 PM DRYWALL HANGER HELPER Encounter for supervision of other normal in second trimester HIV ANTIGEN ANTIBODY COMBO Routine 11/26/2022 2:16 PM DRYWALL HANGER HELPER Encounter for supervision of other normal in second trimester TREPONEMA ABS W REFLEX TO RPR AND TITER Routine 11/26/2022 2:16 PM DRYWALL HANGER HELPER Encounter for supervision of other normal in second trimester HEPATITIS C ANTIBODY Routine 11/26/2022 2:16 PM DRYWALL HANGER HELPER Encounter for supervision of other normal in second trimester HEPATITIS B SURFACE ANTIGEN Routine 11/26/2022 2:16 PM DRYWALL HANGER HELPER Encounter for supervision of other normal in second trimester ABO/RH TYPE AND SCREEN Routine 11/26/2022 2:16 PM DRYWALL HANGER HELPER Encounter for supervision of other normal in second trimester CHLAMYDIA TRACHOMATIS PCR Routine 11/26/2022 1:42 PM DRYWALL HANGER HELPER Screen for STD (sexually transmitted disease) documented in this encounter Results * Urine Culture Aerobic Bacterial (11/26/2022 2:37 PM DRYWALL HANGER HELPER) Culture 10,000-50,000 CFU/mL Mixture of urogenital chely RHIANNA 11/28/2022 10:50 AM DRYWALL HANGER HELPER [facility] Urine MID-STREAM URINE SPECIMEN / Unknown Non-blood Collection / Unknown 11/26/2022 2:37 PM DRYWALL HANGER HELPER 11/26/2022 2:37 PM DRYWALL HANGER HELPER Kelley Diane DO LAB - MICRO GENER AL ORDERABLES [facility] Inf. Diseases Diag. Lab [address] [facility], [address] [place] [address], [facility] [phone] * Adult Type and Screen (11/26/2022 2:16 PM DRYWALL HANGER HELPER) ABO/RH(D) A POS 11/25/2022 6:00 PM DRYWALL HANGER HELPER RH BLOOD BANK Antibody Screen Negative Negative 11/25/2022 6:00 PM DRYWALL HANGER HELPER RH BLOOD BANK SPECIMEN EXPIRATION DATE [id number] 11/25/2022 6:00 PM DRYWALL HANGER HELPER RH BLOOD BANK Blood BLOOD SPECIMEN / Unknown Venipuncture / Unknown 11/26/2022 2:16 PM DRYWALL HANGER HELPER 11/26/2022 2:27 PM DRYWALL HANGER HELPER Kelley Diane DO LAB - BLOOD BANK TEST ORDER BLOOD B[place] [address] * Hepatitis C antibody (11/26/2022 2:16 PM DRYWALL HANGER HELPER) Hepatitis C Antibody Nonreactive Nonreactive 11/27/2022 2:46 PM DRYWALL HANGER HELPER [facility] C[facility]/PROT/EN DO Blood BLOOD SPECIMEN / Unknown Venipuncture / Unknown 11/26/2022 2:16 PM DRYWALL HANGER HELPER 11/26/2022 2:28 PM DRYWALL HANGER HELPER Narrative UM SPECIALTY CORE/PROT/ENDO - 11/27/2022 2:46 PM DRYWALL HANGER HELPER Assay performance characteristics have not been established for newborns, infants, and children. Kelley Diane DO LAB - BLOOD ORDER BROOKE Performing Organization Address City/[facility] [address]/ZIP Co de Phone Number UM SPECIALTY CORE/PROT/ENDO Specialty Core/Prot/Endo [facility], [address] [phone] * Treponema Abs w Reflex to RPR and Titer (11/26/2022 2:16 PM DRYWALL HANGER HELPER) Treponema Antibody Total Nonreactive Nonreactive 11/27/2022 10:22 AM DRYWALL HANGER HELPER SPECIALTY CORE/PROT/EN DO Blood BLOOD SPECIMEN / Unknown Venipuncture / Unknown 11/26/2022 2:16 PM DRYWALL HANGER HELPER 11/26/2022 2:28 PM DRYWALL HANGER HELPER Kelley Gloria Benedicto GUZMAN LAB - BLOOD ORDER BROOEK UM SPECIALTY CORE/PROT/ENDO Specialty Core/Prot/Endo [address] [facility], [address] [phone] * Rubella Antibody IgG Quantitative (11/26/2022 2:16 PM DRYWALL HANGER HELPER) Rubella Isabelle IgG Instrument Value 3.93 <0.90 Index 11/29/2022 12:01 PM DRYWALL HANGER HELPER UM SPECIALTY CORE/PROT/END O Rubella Antibody IgG Positive 11/29/2022 12:01 PM DRYWALL HANGER HELPER SPECIALTY CORE/PROT/END O Comment:Suggests previous ex posure or immunization and probable immunity. Blood BLOOD SPECIMEN / Unknown Venipuncture / Unknown 11/26/2022 2:16 PM DRYWALL HANGER HELPER 11/26/2022 2:27 PM DRYWALL HANGER HELPER Kelley Diane DO LAB - BLOOD ORDER BROOKE UM SPECIALTY CORE/PROT/ENDO UM Specialty Core/Prot/Endo [facility], [address] [phone] * HIV Antigen Antibody Combo (11/26/2022 2:16 PM DRYWALL HANGER HELPER) HIV Antigen Antibody Combo Nonreactive Nonreactive 11/27/2022 2:46 PM DRYWALL HANGER HELPER SPECIALTY CORE/PROT/EN DO Comment:HIV-1 p24 Ag & HIV-1 /HIV-2 Ab Not Detected Blood BLOOD SPECIMEN / Unknown Venipuncture / Unknown 11/26/2022 2:16 PM DRYWALL HANGER HELPER 11/26/2022 2:28 PM DRYWALL HANGER HELPER Kelley Diane DO LAB - BLOOD ORDER BROOKE UM SPECIALTY CORE/PROT/ENDO Specialty Core/Prot/Endo [facility], [address] [phone] * Hepatitis B surface antigen (11/26/2022 2:16 PM DRYWALL HANGER HELPER) Hepatitis B Surface Antigen Nonreactive Nonreactive 11/27/2022 2:46 PM DRYWALL HANGER HELPER UM SPECIALTY CORE/PROT/EN DO Blood BLOOD SPECIMEN / Unknown Venipuncture / Unknown 11/26/2022 2:16 PM DRYWALL HANGER HELPER 11/26/2022 2:28 PM DRYWALL HANGER HELPER Kelley Diane DO LAB - BLOOD ORDER BROOKE UM SPECIALTY CORE/PROT/ENDO UM Specialty Core/Prot/Endo [facility], [address] [place] [address], [facility] [phone] * CHLAMYDIA TRACHOMATIS PCR (11/26/2022 1:42 PM DRYWALL HANGER HELPER) Chlamydia trachomatis Negative Negative 11/27/2022 12:55 PM DRYWALL HANGER HELPER [facility] Comment:A negative result by screedman mediated amplification does not preclude the presence of C. trachomatis infection because results are dependent on proper and adequate collection, absence of inhibitors and sufficient rRNA to be detected. Swab CERVIX UTERI STRUCTURE / Unknown Non-blood Collection / Unknown 11/26/2022 1:42 PM DRYWALL HANGER HELPER 11/26/2022 3:02 PM DRYWALL HANGER HELPER Kelley Diane DO LAB - MICRO GENER AL ORDERABLES [facility] Inf. Diseases Diag. Lab [address] [facility], [address] [place] [address], [facility] [phone] documented in this encounter Visit Diagnoses Diagnosis Screen for STD (sexually transmitted disease)- Primary Screening examination for venereal disease care in second trimester Encounter for supervision of other normal in second trimester documented in this encounter Additional Health Concerns Assessment Noted Time PHQ-9 Depression Total Score: 19 08/ 021 3:52 PM CDT documented as of this encounter Care Teams Medical Staff Services Manager Relationship Specialty Start Date End Date Abbey Bagley PA-C PCP - General Physician Depalletizer Operator 08/15/20 Abbey Bagley PA-C Physician Depalletizer Operator 04/11/20 05/02/23 documented as of this encounter
--- OUTSIDE RECORDS SUMMARY | 2023-11-03 06:37 | XMS_ITS | Encounter Summary ---
Author Name Unknown Organization [place] Address [facility] [place] [address] Care Team Providers Care Scientific Software Developer Name Role Phone Abbey Bagley PA-C Unavailable Unavailable Abbey Bagley PA-C Primary Care Provider Kelley Ko DO Unavailable [phone] Encounter Details Date Type Department Care Team (Latest Contact Info) Description 12/30/2022 Travel Social History Tobacco Use Types Packs/Day Years Used Date Smoking Tobacco: Some Days Cigarettes 0.3 Smokeless Tobacco: Never Alcohol Use Standard Drinks/Week Comments Not Currently 0 (1 standard drink = 0.6 oz pur e alcohol) Seldom PHQ-2 Answer Date Recorded PHQ-2 Score 2 11/26/2022 Mobile Depression Scale Answer Date Recorded Mobile Depression Score 13 03/10/2021 Last EPDS Self [...] documented as of this encounter Care Teams Scientific Software Developer Relationship Specialty Start Date End Date Abbey Bagley PA-C PCP - General Physician Cigarette Packer 08/15/20 Abbey Bagley PA-C Physician Cigarette Packer 04/11/20 05/02/23 Kelley Diane DO [address] [address] Assigned OBGYN Provider 12/04/22 documented as of this encounter
--- OUTSIDE RECORDS SUMMARY | 2023-11-03 06:37 | XMS_ITS | Encounter Summary ---
Author Name Unknown Organization [place] Address [address] [place] [address] Care Team Providers Care Artificial Plastic Eye Maker Name Role Phone Abbey Bagley PA-C Unavailable Unavailable Abbey Bagley PA-C Primary Care Provider Unava ilable Encounter Details Date Type Department Care Team (Latest Contact Info) Description 11/26/2022 Travel Social History Tobacco Use Types Packs/Day Years Used Date Smoking Tobacco: Some Days Cigarettes 0.3 Smokeless Tobacco: Never Alcohol Use Standard Drinks/Week Comments Not Currently 0 (1 standard drink = 0.6 oz pur e alcohol) Seldom PHQ-2 Answer Date Recorded PHQ-2 Score 2 11/26/2022 Creole Depression Scale Answer Date Recorded Creole Depression Score 13 03/10/2021 Last EPDS Self [...] Coronavirus/COVID-19? No / Unsure 11/26/2022 1:26 PM COOK BOAT documented as of this encounter Plan of Treatment Not on file documented as of this encounter Visit Diagnoses Not on filedocumented in this encounter Additional Health Concerns Assessment Noted Time PHQ-9 Depression Total Score: 19 021 3:52 PM CDT documented as of this encounter Care Teams Artificial Plastic Eye Maker Relationship Specialty Start Date End Date Abbey Bagley PA-C PCP - General Physician Racing Mechanic 08/15/20 Abbey Bagley PA-C Physician Racing Mechanic 04/11/20 05/02/23 documented as of this encounter
--- OUTSIDE RECORDS SUMMARY | 2023-11-03 06:37 | XMS_ITS | Encounter Summary ---
Author Name Unknown Organization [place] Address [address] [place] [address] Care Team Providers Care Hoist Mechanic Name Role Phone Abbey Bagley PA-C Unavailable Unavailable Abbey Bagley PA-C Primary Care Provider Ino Ken MD Unavailable [phone] Encounter Details Date Type Department Care Team (Latest Contact Info) Description 01/19/2023 Travel Social History Tobacco Use Types Packs/Day Years Used Date Smoking Tobacco: Some Days Cigarettes 0.3 Smokeless Tobacco: Never Alcohol Use Standard Drinks/Week Comments Not Currently 0 (1 standard drink = 0.6 oz pur e alcohol) Seldom PHQ-2 Answer Date Recorded PHQ-2 Score 2 11/26/2022 Redwood Depression Scale Answer Date Recorded Redwood Depression Score 13 03/10/2021 Last EPDS Self [...] documented as of this encounter Care Teams Hoist Mechanic Relationship Specialty Start Date End Date Abbey Bagley PA-C PCP - General Physician Cut Off Man 08/15/20 Abbey Bagley PA-C Physician Cut Off Man 04/11/20 05/02/23 Ino Robbins MD [address] [place] [address] Assigned OBGYN Provider 01/01/23 documented as of this encounter
--- OUTSIDE RECORDS SUMMARY | 2023-11-03 06:37 | XMS_ITS | Encounter Summary ---
Author Name Unknown Organization [place] Address [facility] [place] [address] Care Team Providers Care Sexton Helper Name Role Phone Abbey Bagley PA-C Unavailable Unavailable Abbey Bagley PA-C Primary Care Provider Unava ilable Ino Robbins MD Unavailable Reason for Referral * Consultation (Routine) - Pending Review Specialty Diagnoses / Procedures Referred By Bernardo t Referred To Contact Diagnoses care in second trimester Ino Robbins MD [address] [place] [address] [facility] [address] [place] [address] Referral ID Status Reason Start Date Expiration Date V isits Requested Visits Authorized [id number] Pending Review 01/19/2023 01/19/2024 1 1 Question Answer Preferred Location: [facility] [place] 05/06/2023 Ultrasound Comprehensive US (>than 18 weeks GA) US PROC NONE MFM Issue Abnormal Ultrasound Findings (enter details in [...] where they were done to arrange for bulk picker prior to your scheduled appointment. Any new CT, MRI or other procedures ordered by your specialist must be performed at a [facility] or coordinated by your clinic's referral office. >> List of current medications >> This referral request >> Any documents/labs given to you for this referral Reason for Visit * Reason Comments Care Encounter Details Date Type Department Care Team (Late st Contact Info) Description 01/19/2023 1:30 PM CDT Office Visit [facility] Women's [address] [place] [address] Ino Robbins MD [facility] [place] [address] HSV (herpes simplex virus) infection (Primary Dx); [...] Answer Date Recorded PHQ-2 Score 2 11/26/2022 Grantville Depression Scale Answer Date Recorded [place] Depression Score 13 03/10/2021 Last EPDS Self [...] Body Mass Index 32.36 11/04/2022 3:15 PM SURGICAL FIRST ASSISTANT documented in this encounter Progress Notes * Ino Robbins MD - 01/19/2023 1:30 PM CDT 22yo at 24w5d. Was planning to relocate to [place] but found housing conditions filthy. Ants,mold, etc. Has had diarrhea off and on. Concerned about an intestinal parasite. Will check stool culture and O&P. Needs follow up U/S to visualize LVOT not yet well seen. MFM referral placed. Unsure if she plans to remain in [place] for delivery. RTC 4 weeks with GCT documented in this encounter Nursing Notes * Shelly Pedraza CMA - 01/19/2023 1:30 PM CDT Chief Complaint Patient presents with ??? Care 24w5d Moving back from [place] initial BP 114/74 Wt 93.7 kg (206 [...] performed by multiplexed, qualitative PCR using the Whotever Enteric Pathogens Nucleic Acid Test. Results should [...] 2. Ino Robbins MD LAB - MICRO Unifyo ORDERABLES Performing Organization Address City/[facility] Co de Phone Number [facility] Inf. Diseases Diag. Lab [address] [facility], [address] [address], [facility] [phone] * Ova and Parasite Exam Routine (01/19/2023 2:50 PM CDT) [facility] OVA AND PARASITE EXAM Negative Negative RHIANNA 01/20/2023 2:49 PM CDT [facility] Comment:A single negative sp ecimen does not rule out parasitic infection. Stool RECTAL CONTENTS / Unknown Non-blood Collection / Unknown 01/19/2023 2:50 PM CDT 01/19/2023 3:33 PM CDT Narrative [facility] - 01/20/2023 2:49 PM CDT Cryptosporidium, Cyclospora and Microsporidia are not readily detected by this method. Ino Robbins MD LAB - MICRO Unifyo ORDERABLES [facility] Inf. Diseases Diag. Lab [address] [facility], [address] [address], [facility] [phone] * (ABNORMAL) Wet prep - Clinic Collect [...] - MICRO GE NERAL ORDERABLES RI LABORATORY [facility] [address] [facility], [address] [place] [address] [phone] documented in this encounter Visit Diagnoses Diagnosis HSV (herpes simplex virus) infection- Primary Herpes simplex without mention of complication Current mild episode of major depressive disorder, unspecified whether recurrent (H24) care in second trimester documented in this encounter Additional Health Concerns Assessment Noted Time PHQ-9 Depression Total Score: 19 08/2 021 3:52 PM CDT documented as of this encounter Care Teams Sexton Helper Relationship Specialty Start Date End Date Abbey Bagley PA-C PCP - General Physician Grid Molder 08/15/20 Abbey Bagley PA-C Physician Grid Molder 04/11/20 05/02/23 Ino Robbins MD [address] [place] [address] Assigned OBGYN Provider 01/01/23 documented as of this encounter
--- OUTSIDE RECORDS SUMMARY | 2023-11-03 06:37 | XMS_ITS | Encounter Summary ---
Author Name Unknown Organization [place] Address [address] [facility] [place] [address] Care Team Providers Care Maintenance Advisor Name Role Phone Abbey Bagley PA-C Unavailable Unavailable Abbey Bagley PA-C Primary Care Provider Kelley Ko DO Unavailable Reason for Visit * Diagnostic Imaging Ultrasound (Routine) - Pending Review Specialty Diagnoses / Procedures Referred By Bernardo t Referred To Contact Radiology. Diagnoses Encounter for supervision of other normal in second trimester Procedures US OB > 14 Weeks Ino Robbins MD [address] [place] [address] Referral ID Status Reason Start Date Expiration Date V isits Requested Visits Authorized [id number] Pending Review 11/23/2022 11/23/2023 1 1 Encounter Details Date Type Department Care Team (Late st Contact Info) Description 12/13/2022 11:00 AM CEMENTER OIL WELL Ancillary Procedure [facility] [address] [facility] [address] [place] [address] Ino Robbins MD [address] [place] [address] Encounter for supervision of other normal in second trimester Social History Tobacco Use Types Packs/Day Years Used Date Smoking Tobacco: Some Days Cigarettes 0.3 Smokeless Tobacco: Never Alcohol Use Standard Drinks/Week Comments Not Currently 0 (1 standard drink = 0.6 oz pur e alcohol) Seldom PHQ-2 Answer Date Recorded PHQ-2 Score 2 11/26/2022 Lovell Depression Scale Answer Date Recorded Lovell Depression Score 13 03/10/2021 Last EPDS Self [...] Coronavirus/COVID-19? No / Unsure 12/13/2022 10:57 AM CEMENTER OIL WELL documented as of this encounter Plan of Treatment Not on file documented as of this encounter Procedures Procedure Name Priority Date/Time Associated Diagnosis Comments US OB > 14 WEEKS Routine 12/13/2022 11:5 0 AM CEMENTER OIL WELL Encounter for supervision of other normal in second trimester documented in this encounter Results * US OB > 14 Weeks (12/13/2022 11:50 AM CEMENTER OIL WELL) Anatomical Region Laterality Modality Abdomen/Pelvis Ultrasound Narrative 12/13/2022 1:08 PM CEMENTER OIL WELL Table formatting from the original result was not included. [facility] Obstetrics and Gynecology ?? ULTRASOUND - [...] Godwin Latham MD FACOG Obstetrics and Gynecology [facility] Ino Robbins MD IMG US ORDERAB LES documented in this encounter Visit Diagnoses Diagnosis Encounter for supervision of other normal in second trimester documented in this encounter Additional Health Concerns Assessment Noted Time PHQ-9 Depression Total Score: 19 021 3:52 PM CDT documented as of this encounter Care Teams Maintenance Advisor Relationship Specialty Start Date End Date Abbey Bagley PA-C PCP - General Physician Life Assurance Representative 08/15/20 Abbey Bagley PA-C Physician Life Assurance Representative 04/11/20 05/02/23 Kelley Diane DO [address] [address] Assigned OBGYN Provider 12/04/22 documented as of this encounter
--- OUTSIDE RECORDS SUMMARY | 2023-11-03 06:37 | XMS_ITS | Encounter Summary ---
Author Name Unknown Organization [place] Address [facility] [place] [address] Care Team Providers Care Licensing Analyst Name Role Phone Abbey Bagley PA-C Unavailable Unavailable Abbey Bagley PA-C Primary Care Provider Kelley Ko DO Unavailable [phone] Reason for Visit * Reason Comments Care Encounter Details Date Type Department Care Team (Late st Contact Info) Description 12/24/2022 1:30 PM CDT Office Visit [address] [place] [address] Ino Robbins MD [address] [place], [place] [id number] care in second trimester (Primary Dx) Social History Tobacco Use Types Packs/Day Years Used Date Smoking Tobacco: Some Days Cigarettes 0.3 Smokeless Tobacco: Never Tobacco Cessation:Ready to Q uit: Not Asked; Counseling Given: Not Answered Alcohol Use Standard Drinks/Week Comments Not Currently 0 (1 standard drink = 0.6 oz pur e alcohol) Seldom PHQ-2 Answer Date Recorded PHQ-2 Score 2 11/26/2022 Zullinger Depression Scale Answer Date Recorded Zullinger Depression Score 13 03/10/2021 Last EPDS Self Harm Result Not on file 06/01 /2021 Education Answer Date Recorded What is the [...] Body Mass Index 31.48 11/04/2022 3:15 PM PRESSROOM FOREMAN documented in this encounter Progress Notes * Ino Robbins MD - 12/24/2022 1:30 PM CDT 22yo at 21w0d. Relocating to [place] at the end of the month. Has [...] documented as of this encounter Care Teams Licensing Analyst Relationship Specialty Start Date End Date Abbey Bagley PA-C PCP - General Physician Grade Recorder 08/15/20 Abbey Bagley PA-C Physician Grade Recorder 04/11/20 05/02/23 Kelley Diane DO [address] [address] Assigned OBGYN Provider 12/04/22 documented as of this encounter
--- OUTSIDE RECORDS SUMMARY | 2023-11-03 06:37 | XMS_ITS | Encounter Summary ---
Author Name Unknown Organization [place] Address [address] [facility] [address] Care Team Providers Care Real Estate Rental Agent Name Role Phone Abbey Bagley PA-C Unavailable Unavailable Abbey Bagley PA-C Primary Care Provider UnaKelley Guillaume DO Unavailable [phone] Ino Robbins MD Unavailable [phone] Encounter Details Date Type Department Care Team (Late st Contact Info) Description 12/07/2022 [facility] Adv[facility] [address] [place] [phone] Diana Rainey, RN Social History Tobacco Use Types Packs/Day Years Used Date Smoking Tobacco: Some Days Cigarettes 0.3 Smokeless Tobacco: Never Alcohol Use Standard Drinks/Week Comments Not Currently 0 (1 standard drink = 0.6 oz pur e alcohol) Seldom PHQ-2 Answer Date Recorded PHQ-2 Score 2 11/26/2022 [place] Depression Scale Answer Date Recorded [place] Depression Score 13 03/10/2021 Last EPDS Self [...] Coronavirus/COVID-19? No / Unsure 11/26/2022 1:26 PM WEB APPLICATION TESTER documented as of this encounter Plan of Treatment Not on file documented as of this encounter Visit Diagnoses Not on filedocumented in this encounter Additional Health Concerns Assessment Noted Time PHQ-9 Depression Total Score: 19 021 3:52 PM CDT documented as of this encounter Care Teams Real Estate Rental Agent Relationship Specialty Start Date End Date Abbey Bagley PA-C PCP - General Physician Mechanical Engineering Draftsperson 08/15/20 Abbey Bagley PA-C Physician Mechanical Engineering Draftsperson 04/11/20 05/02/23 Kelley Diane DO [address] [address] Assigned OBGYN Provider 12/04/22 Ino Robbins MD [address] [place] [address] Assigned OBGYN Provider 01/01/23 documented as of this encounter
--- OUTSIDE RECORDS SUMMARY | 2023-11-03 06:37 | XMS_ITS | Encounter Summary ---
Author Name Unknown Organization [place] Address [address] [facility] [place] [address] Care Team Providers Care Telephone Directory Deliverer Name Role Phone Abbey Bagley PA-C Unavailable Unavailable Abbey Bagley PA-C Primary Care Provider Kelley Ko DO Unavailable [phone] Reason for Referral * Diagnostic Imaging Ultrasound (Routine) - Pending Review Specialty Diagnoses / Procedures Referred By Bernardo t Referred To Contact Radiology. Diagnoses care in second trimester Procedures US OB >14 Weeks Follow Up Ino Robbins MD [address] [place] [address] Referral ID Status Reason Start Date Expiration Date V isits Requested Visits Authorized [id number] Pending Review 12/14/2022 12/14/2023 1 1 D CANE SCALER Encounter Details Date Type Department Care Team (Late st Contact Info) Description 12/14/[address] [facility] [address] [place] [address] Ino Robbins MD [address] [place], [place] [id number] care in second trimester (Primary Dx) Social History Tobacco Use Types Packs/Day Years Used Date Smoking Tobacco: Some Days Cigarettes 0.3 Smokeless Tobacco: Never Alcohol Use Standard Drinks/Week Comments Not Currently 0 (1 standard drink = 0.6 oz pur e alcohol) Seldom PHQ-2 Answer Date Recorded PHQ-2 Score 2 11/26/2022 [place] Depression Scale Answer Date Recorded [place] Depression Score 13 03/10/2021 Last EPDS Self [...] Coronavirus/COVID-19? No / Unsure 12/13/2022 10:57 AM FIELD CANE SCALER documented as of this encounter Plan of [...] from the original result was not included. [facility] ULTRASOUND - OB FOLLOW UP > 14 Weeks - Transabdominal ?? Referring Provider: Ino Robbins MD ?? INDICATIONS FOR ULTRASOUND: OB History: Present Conditions: Follow-up spine, heart, outflow tracts ?? CLINICAL INFORMATION ?? LMP: Jul 31 ??- sure EDC: May 01 ?EGA: 21w 6d Ino Robbins MD IMG ORDERAB LES documented in this encounter Visit Diagnoses Diagnosis care in second trimester- Primary care in second trimester documented in this encounter Additional Health Concerns Assessment Noted Time PHQ-9 Depression Total Score: 19 021 3:52 PM CDT documented as of this encounter Care Teams Telephone Directory Deliverer Relationship Specialty Start Date End Date Abbey Bagley PA-C PCP - General Physician Utility Aide 08/15/20 Abbey Bagley PA-C Physician Utility Aide 04/11/20 05/02/23 Kelley Diane DO [address] [address] Assigned OBGYN Provider 12/04/22 documented as of this encounter
--- OUTSIDE RECORDS SUMMARY | 2023-11-03 06:37 | XMS_ITS | Encounter Summary ---
Author Name Unknown Organization [place] Address [address] [facility] [place] [address] Care Team Providers Care Test Case Developer Name Role Phone Abbey Bagley PA-C Unavailable Unavailable Abbey Bagley PA-C Primary Care Provider Unava ilable Ino Robbins MD Unavailable [phone] Reason for Visit * Reason Comments Ultrasound L2-LVOT not well see n on outside scan Encounter Details Date Type Department Care Team (Late st Contact Info) Description 01/25/2023 10:45 AM CDT Office Visit [facility] [employer] [address] [facility] [address] [place] [address] Ino Robbins MD [address] [place] [address] Camden Flores MD [address] [place] [address] Suspected anomaly, antepartum, single or unspecified fetus (Primary Dx); Encounter for follow-up ultrasound of anatomy Social History Tobacco Use Types Packs/Day Years Used Date Smoking Tobacco: Some Days Cigarettes 0.3 Smokeless Tobacco: Never Alcohol Use Standard Drinks/Week Comments Not Currently 0 (1 standard drink = 0.6 oz pur e alcohol) Seldom PHQ-2 Answer Date Recorded PHQ-2 Score 2 11/26/2022 [place] Depression Scale Answer Date Recorded [place] Depression Score 13 03/10/2021 Last EPDS Self [...] for details of today's US at the [facility]. Camden Flores MD Maternal- Medicine [...] documented as of this encounter Care Teams Test Case Developer Relationship Specialty Start Date End Date Abbey Bagley PA-C PCP - General Physician Furnace Room Supervisor 08/15/20 Abbey Bagley PA-C Physician Furnace Room Supervisor 04/11/20 05/02/23 Ino Robbins MD [address] [place] [address] Assigned OBGYN Provider 01/01/23 documented as of this encounter
--- OUTSIDE RECORDS SUMMARY | 2023-11-03 06:37 | XMS_ITS | Encounter Summary ---
Author Name Unknown Organization [place] Address [address] [facility] [place] [address] Care Team Providers Care Event Services Manager Name Role Phone Abbey Bagley PA-C Unavailable Unavailable Abbey Bagley PA-C Primary Care Provider Kelley Ko DO Unavailable [phone] Ino Robbins MD Unavailable [phone] Encounter Details Date Type Department Care Team (Late st Contact Info) Description 11/23/2022 My[facility] Medical Advice [address] [place] [address] Di Sher RN Social History Tobacco Use Types Packs/Day Years Used Date Smoking Tobacco: Some Days Cigarettes 0.3 Smokeless Tobacco: Never Alcohol Use Standard Drinks/Week Comments Not Currently 0 (1 standard drink = 0.6 oz pur e alcohol) Seldom PHQ-2 Answer Date Recorded PHQ-2 Score 2 11/26/2022 [place] Depression Scale Answer Date Recorded [place] Depression Score 13 03/10/2021 Last EPDS Self [...] Coronavirus/COVID-19? No / Unsure 11/26/2022 1:26 PM LAP GRINDER documented as of this encounter Plan of Treatment Not on file documented as of this encounter Visit Diagnoses Not on filedocumented in this encounter Additional Health Concerns Assessment Noted Time PHQ-9 Depression Total Score: 19 021 3:52 PM CDT documented as of this encounter Care Teams Event Services Manager Relationship Specialty Start Date End Date Abbey Bagley PA-C PCP - General Physician Poultry Farm Manager 08/15/20 Abbey Bagley PA-C Physician Poultry Farm Manager 04/11/20 05/02/23 Kelley Diane DO [address] [address] Assigned OBGYN Provider 12/04/22 Ino Robbins MD [address] [place] [address] Assigned OBGYN Provider 01/01/23 documented as of this encounter
--- OUTSIDE RECORDS SUMMARY | 2023-11-03 06:37 | XMS_ITS | Encounter Summary ---
Author Name Unknown Organization [place] Address [address] [place] [address] Care Team Providers Care Manufacturing Controls Engineer Name Role Phone Abbey Bagley PA-C Unavailable Unavailable Abbey Bagley PA-C Primary Care Provider Unava ilable Pawel Guardado MD Unavailable [phone] Reason for Referral * Diagnostic Imaging Ultrasound (Routine) - Pending Review Specialty Diagnoses / Procedures Referred By Contac t Referred To Contact Radiology. Diagnoses related condition, antepartum Procedures [facility] US Pawel Forte MD [address] [place] [address] Referral ID Status Reason Start Date Expiration Date V isits Requested Visits Authorized [id number] Pending Review 01/19/2023 01/19/2024 1 1 Reason for Visit * Diagnostic Imaging Ultrasound (Routine) - Pending Review Specialty Diagnoses / Procedures Referred By Contac t Referred To Contact Radiology. Diagnoses related condition, antepartum Procedures [facility] US Pawel Forte MD [address] [place] [address] Referral ID Status Reason Start Date Expiration Date V isits Requested Visits Authorized [id number] Pending Review 01/19/2023 01/19/2024 1 1 Encounter Details Date Type Department Care Team (Late st Contact Info) Description 01/25/2023 10:11 AM CDT - 01/25/2023 11:59 PM CDT Hospital Encounter [facility] [place] [address] [facility] [address] [place] [address] Pawel Guardado MD [address] [place] [address] Camden Flores MD [address] [place] [address] [address] [place], [place] [address] related condition, antepartum Discharge Disposition: Home or Self Care Social History Tobacco Use Types Packs/Day Years Used Date Smoking Tobacco: Some Days Cigarettes 0.3 Smokeless Tobacco: Never Alcohol Use Standard Drinks/Week Comments Not Currently 0 (1 standard drink = 0.6 oz pur e alcohol) Seldom PHQ-2 Answer Date Recorded PHQ-2 Score 2 11/26/2022 [place] Depression Scale Answer Date Recorded [place] Depression Score 13 03/10/2021 Last EPDS Self [...] Procedure Name Priority Date/Time Associated Diagnosis Comments [facility] US COMPREHENSIVE SINGLE Routine 01/25/2023 11:28 AM CDT related condition, antepartum documented in this encounter Results * [facility] US Comprehensive Single (01/25/2023 11:28 AM CDT) Anatomical [...] JACK Study Date: 01/25/2023 10:19am Pat. NO: [id number] Referring ??MD: PAWEL GUARDADO Site: [facility] Programmer: Arthur Herman RDMS : 2000 Age: 22 [...] lb 13 ? oz EFW by ?Hadlock ([id number]) Head / Face / Neck Biometry: Cashier And Salesperson ? 7.7 ? mm CM ?6.9 ? [...] vena cava. Inferior vena cava. 3-vessel view. 4-vwcerx-zqijowj view. ? Cardiac position. Cardiac size. Cardiac [...] Pat. Name:Loki JACK Date:01/25/2023 10:19am Pat. NO: [id number] MD:PAWEL GUARDADO [facility]Arthur Herman RD[facility] :2000Age:22 ----- INDICATION ----- LVOT [...] 1 lb 13 oz EFW by Hadlock ([id number]) Head / Face / Neck Biometry: Cashier And Salesperson 7.7 mm CM 6.9 mm ANATOMY ----- The following structures appear normal: Head / Neck Cranium. Head size. Head shape.Lateral ventricles. Choroid plexus. Midline falx. Cavum septi pellucidi.Cerebellum. Cisterna magna. Parenchyma. Thalami. Vermis. Neck. Face Lips. Heart / Thorax RVOT view. LVOT view. Situs. Aorticarch view. Bicaval view. Superior vena cava. Inferior vena cava. 3-vesselview. 2-ukdxrq-qidbxhg view. Cardiac position. Cardiac size.Cardiac rhythm. Diaphragm. [...] normal for gestational age. Pawel Guardado MD [facility] ORD RADHA documented in this encounter Visit Diagnoses Diagnosis related condition, antepartum documented in this encounter Additional Health Concerns Assessment Noted Time PHQ-9 Depression Total Score: 19 021 3:52 PM CDT documented as of this encounter Care Teams Manufacturing Controls Engineer Relationship Specialty Start Date End Date Abbey Bagley PA-C PCP - General Physician On Call Pharmacy Technician 08/15/20 Abbey Bagley PA-C Physician On Call Pharmacy Technician 04/11/20 05/02/23 Pawel Guardado MD [facility] [address] [address] Assigned OBGYN Provider 01/01/23 documented as of this encounter
--- OUTSIDE RECORDS SUMMARY | 2023-11-03 06:37 | XMS_ITS | Encounter Summary ---
Author Name Unknown Organization [place] Address [facility] [place] [address] Care Team Providers Care Blind Lacer Name Role Phone Abbey aBgley PA-C Unavailable Unavailable Abbey Bagley PA-C Primary Care Provider Kelley Ko DO Unavailable [phone] Encounter Details Date Type Department Care Team (Latest Contact Info) Description 12/13/2022 Travel Social History Tobacco Use Types Packs/Day Years Used Date Smoking Tobacco: Some Days Cigarettes 0.3 Smokeless Tobacco: Never Alcohol Use Standard Drinks/Week Comments Not Currently 0 (1 standard drink = 0.6 oz pur e alcohol) Seldom PHQ-2 Answer Date Recorded PHQ-2 Score 2 11/26/2022 [place] Depression Scale Answer Date Recorded [place] Depression Score 13 03/10/2021 Last EPDS [...] Coronavirus/COVID-19? No / Unsure 12/13/2022 10:57 AM FOOD SERVICE CLERK documented as of this encounter Plan of Treatment Not on file documented as of this encounter Visit Diagnoses Not on filedocumented in this encounter Additional Health Concerns Assessment Noted Time PHQ-9 Depression Total Score: 19 021 3:52 PM CDT documented as of this encounter Care Teams Blind Lacer Relationship Specialty Start Date End Date Abbey Bagley PA-C PCP - General Physician Coating And Embossing Unit Operator 08/15/20 Abbey Bagley PA-C Physician Coating And Embossing Unit Operator 04/11/20 05/02/23 Kelley Diane DO [address] [address] Assigned OBGYN Provider 12/04/22 documented as of this encounter
--- OUTSIDE RECORDS SUMMARY | 2023-11-03 06:38 | XMS_ITS | Clinical Summary ---
Author Name Unknown Organization [facility] Address [place], [place] [address] Care Team Providers Care Boom Storage Name Role Phone Staff, Other Clinical Primary [...] Name Administration Dates Next Due COVID-19 vaccine ([employer] NTBioLeap 30mcg/0.3mL) PF, MDV 2021 DTaP 05/23/2007, 7,08/27/2004,08/27,2002,2002 [id number] (Pediarix) 07/16/2004,07/16/2004 HIB PRP-OMP (PedvaxHIB) 07/16/2004 HIB [...] Used Date Smoking Tobacco: Former Cigarettes 0.3 5.1 S tarted: 2019 Smokeless Tobacco: Former Tobacco [...] nce Delivery Location:[facility] ( LABOR AND DELIVERY) 05/03 Term 39w 3d [...] for age 21-65 2023 COVID-19 vaccine series (2022- season) 2023 09/30/2021, 2021 Influenza for age [...] - Increase reliability General Yes Praful Orozco, HOTEL SALES MANAGER, INVESTMENTS MANAGER Note: Goal identified during: Initial Screening Status: [...] follow-up in two weeks to review her [facility] goals and get a status [...] 3:46 PM 08/18/2016 1:40 PM Care Teams Boom Storage Relationship Specialty Start Date End Date Staff, Other Clinical . PCP - General 06/05/23
--- OUTSIDE RECORDS SUMMARY | 2023-11-03 06:38 | XMS_ITS | Encounter Summary ---
Author Name Unknown Organization [place] Address [address] [place] [address] Care Team Providers Care Telescope Operator Name Role Phone Abbey Bagley PA-C Unavailable Unavailable Abbey Bagley PA-C Primary Care Provider Unava ilable Ino Robbins MD Unavailable Azul Gilman DO Unavailable [phone] Kelley Diane DO Unavailable [phone] Ino Robbins MD Unavailable Reason for Visit * Reason Onset Date Comments Refill Request 04/02/2021 Encounter Details Date Type Department Care Team (Late st Contact Info) Description 04/02/2021 MyC Refill Initial Department Abbey Bagley PA-C Refill Request Social History Tobacco Use Types Packs/Day Years Used Date Smoking Tobacco: Every Day Cigarettes 0.3 Smokeless Tobacco: Never Alcohol Use Standard Drinks/Week Comments Not Currently 0 (1 standard drink = 0.6 oz pur e alcohol) Seldom PHQ-2 Answer Date Recorded PHQ-2 Score 6 02/19/2021 [place] Depression Scale Answer Date Recorded [place] Depression Score 13 03/10/2021 Last EPDS Self [...] documented as of this encounter Care Teams Telescope Operator Relationship Specialty Start Date End Date Abbey Bagley PA-C PCP - General Physician Simulation Technician 08/15/20 Abbey Bagley PA-C Physician Simulation Technician 04/11/20 05/02/23 Ino Robbins MD [address] [place] [address] Assigned OBGYN Provider 03/08/21 Azul Gilman DO [address] [place] [address] Assigned Heart and Vascular Provider 03/08/21 09/10/22 Kelley Diane DO [address] [facility] [address] [place] [address] Assigned OBGYN Provider 12/04/22 Ino Robbins MD [address] [place] [address] Assigned OBGYN Provider 01/01/23 documented as of this encounter
--- OUTSIDE RECORDS SUMMARY | 2023-11-03 06:38 | XMS_ITS | Encounter Summary ---
Author Name Unknown Organization [place] Address [address] [facility] [place] [address] Care Team Providers Care Practical Nursing Teacher Name Role Phone Abbey Bagley PA-C Unavailable Unavailable Abbey Bagley PA-C Primary Care Provider Unava ilable Ino Robbins MD Unavailable Azul Gilman DO Unavailable [phone] Kelley Diane DO Unavailable Ino Robbins MD Unavailable Encounter Details Date Type Department Care Team (Late st Contact Info) Description 04/07/2021 MyC Medical Advice [facility] [address] [place] [phone] Ino Robbins MD [address] [place] [address] Social History Tobacco Use Types Packs/Day Years Used Date Smoking Tobacco: Every Day Cigarettes 0.3 Smokeless Tobacco: Never Alcohol Use Standard Drinks/Week Comments Not Currently 0 (1 standard drink = 0.6 oz pur e alcohol) Seldom PHQ-2 Answer Date Recorded PHQ-2 Score 6 02/19/2021 [place] Depression Scale Answer Date Recorded [place] Depression Score 13 03/10/2021 Last EPDS Self [...] documented as of this encounter Care Teams Practical Nursing Teacher Relationship Specialty Start Date End Date Abbey Bagley PA-C PCP - General Physician Physiological Chemist 08/15/20 Abbey Bagley PA-C Physician Physiological Chemist 04/11/20 05/02/23 Ino Robbins MD [address] [place] [address] Assigned OBGYN Provider 03/08/21 Azul Gilman DO [address] [place] [address] Assigned Heart and Vascular Provider 03/08/21 09/10/22 Kelley Diane DO [address] [place] [address] Assigned OBGYN Provider 12/04/22 Ino Robbins MD [address] [place] [address] Assigned OBGYN Provider 01/01/23 documented as of this encounter
--- OUTSIDE RECORDS SUMMARY | 2023-11-03 06:38 | XMS_ITS ---
Author Name Unknown Organization [place] Address [address] [place] [address] Care Team Providers Care Installment Account Checker Name Role Phone Abbey Bagley PA-C Primary Care Provider Ino Ken MD Unavailable Transitional Care Management Status:Closed (Closed) Start date:05/05/2023 End date:05/05/2023 Continued Care and Services Coordination
--- OUTSIDE RECORDS SUMMARY | 2023-11-03 06:38 | XMS_ITS | Encounter Summary ---
Author Name Unknown Organization [place] Address Replaced by [facility] [place] [address] Care Team Providers Care Icing Maker Name Role Phone Abbey Bagley PA-C Unavailable Unavailable Abbey Bagley PA-C Primary Care Provider Kelley Ko DO Unavailable [phone] Ino Robbins MD Unavailable [phone] Encounter Details Date Type Department Care Team (Late st Contact Info) Description 11/22/2022 MyC Medical Advice [address] [place] [address] Di Sher RN Social History Tobacco Use Types Packs/Day Years Used Date Smoking Tobacco: Every Day Cigarettes 0.3 Smokeless Tobacco: Never Alcohol Use Standard Drinks/Week Comments Not Currently 0 (1 standard drink = 0.6 oz pur e alcohol) Seldom PHQ-2 Answer Date Recorded PHQ-2 Score 2 11/26/2022 [place] Depression Scale Answer Date Recorded [place] Depression Score 13 03/10/2021 Last EPDS Self [...] Coronavirus/COVID-19? No / Unsure 11/17/2022 6:32 PM FARM CONTRACTOR documented as of this encounter Plan of Treatment Not on file documented as of this encounter Visit Diagnoses Not on filedocumented in this encounter Additional Health Concerns Assessment Noted Time PHQ-9 Depression Total Score: 19 021 3:52 PM CDT documented as of this encounter Care Teams Icing Maker Relationship Specialty Start Date End Date Abbey Bagley PA-C PCP - General Physician Graduate Recruiter 08/15/20 Abbey Bagley PA-C Physician Graduate Recruiter 04/11/20 05/02/23 Kelley Diane DO [address] [address] Assigned OBGYN Provider 12/04/22 Ino Robbins MD [address] [place] [address] Assigned OBGYN Provider 01/01/23 documented as of this encounter
--- OUTSIDE RECORDS SUMMARY | 2023-11-03 06:38 | XMS_ITS | Encounter Summary ---
Author Name Unknown Organization [place] Address [address] [place] [address] Care Team Providers Care Fuel Oil Truck Driver Name Role Phone Abbey Bagley PA-C Unavailable Unavailable Abbey Bagley PA-C Primary Care Provider Ino Ken MD Unavailable [phone] Encounter Details Date Type Department Care Team (Latest Contact Info) Description 11/04/2022 Travel Social History Tobacco Use Types Packs/Day Years Used Date Smoking Tobacco: Every Day Cigarettes 0.3 Smokeless Tobacco: Never Alcohol Use Standard Drinks/Week Comments Not Currently 0 (1 standard drink = 0.6 oz pur e alcohol) Seldom PHQ-2 Answer Date Recorded PHQ-2 Score 4 05/14/2021 [place] Depression Scale Answer Date Recorded [place] Depression Score 13 03/10/2021 Last EPDS Self [...] Coronavirus/COVID-19? No / Unsure 11/04/2022 3:04 PM MICROFILM DUPLICATING UNIT SUPERVISOR documented as of this encounter Plan of Treatment Not on file documented as of this encounter Visit Diagnoses Not on filedocumented in this encounter Additional Health Concerns Assessment Noted Time PHQ-9 Depression Total Score: 19 021 3:52 PM CDT documented as of this encounter Care Teams Fuel Oil Truck Driver Relationship Specialty Start Date End Date Abbey Bagley PA-C PCP - General Physician Combination Machine Tool Setter 08/15/20 Abbey Bagley PA-C Physician Combination Machine Tool Setter 04/11/20 05/02/23 Ino Robbins MD [address] [place] [address] Assigned OBGYN Provider 03/08/21 documented as of this encounter
--- OUTSIDE RECORDS SUMMARY | 2023-11-03 06:38 | XMS_ITS | Encounter Summary ---
Author Name Unknown Organization [place] Address [address] [facility] [place] [address] Care Team Providers Care Packing House Laborer Name Role Phone Abbey Bagley PA-C Unavailable Unavailable Abbey Bagley PA-C Primary Care Provider Unava ilable Reason for Referral * Diagnostic Imaging Ultrasound (Routine) - Pending Review Specialty Diagnoses / Procedures Referred By Bernardo belle Referred To Contact Radiology. Diagnoses Encounter for supervision of other normal in second trimester Procedures US OB > 14 Weeks Ino Robbins MD [address] [place] [address] Referral ID Status Reason Start Date Expiration Date V isits Requested Visits Authorized [id number] Pending Review 11/23/2022 11/23/2023 1 1 IC TANK SERVICER Reason for Visit * Reason Comments Care New Nurse Doyle villalobos Visit Encounter Details Date Type Department Care Team (Latest Contact Info) Description 11/23/2022 2:15 PM SEPTIC TANK SERVICER Office Visit [address] [place] [address] Encounter for supervision of other [...] Answer Date Recorded PHQ-2 Score 2 11/23/2022 [place] Depression Scale Answer Date Recorded [place] Depression Score 13 03/10/2021 Last EPDS Self [...] Coronavirus/COVID-19? No / Unsure 11/17/2022 6:32 PM SEPTIC TANK SERVICER documented as of this encounter Progress Notes [...] to this ?: No Di Sher RN IC TANK SERVICER documented in this encounter Plan of Treatment Not on file documented as of this encounter Results * US OB > 14 Weeks (12/13/2022 11:50 AM SEPTIC TANK SERVICER) Anatomical Region Laterality Modality Abdomen/Pelvis Ultrasound Narrative 12/13/2022 1:08 PM SEPTIC TANK SERVICER Table formatting from the original result was not included. [facility] Obstetrics and Gynecology ?? ULTRASOUND - [...] Medicine [facility] Ino Robbins MD [facility] ORDERAB LES * Urine Culture Aerobic Bacterial (11/26/2022 2:37 PM SEPTIC TANK SERVICER) Culture 10,000-50,000 CFU/mL Mixture of urogenital chely RHIANNA 11/28/2022 10:50 AM SEPTIC TANK SERVICER [facility] Urine MID-STREAM URINE SPECIMEN / Unknown Non-blood Collection / Unknown 11/26/2022 2:37 PM SEPTIC TANK SERVICER 11/26/2022 2:37 PM SEPTIC TANK SERVICER Kelley Diane DO LAB - MICRO GENER AL ORDERABLES [facility] Inf. Diseases Diag. Lab [address] [facility], [address] [place] [address], [facility] [phone] * Hepatitis C antibody (11/26/2022 2:16 PM SEPTIC TANK SERVICER) Hepatitis C Antibody Nonreactive Nonreactive 11/27/2022 2:46 PM SEPTIC TANK SERVICER SPECIALTY CORE/PROT/EN DO Blood BLOOD SPECIMEN / Unknown Venipuncture / Unknown 11/26/2022 2:16 PM SEPTIC TANK SERVICER 11/26/2022 2:28 PM SEPTIC TANK SERVICER Narrative SPECIALTY CORE/PROT/ENDO - 11/27/2022 2:46 PM SEPTIC TANK SERVICER Assay performance characteristics have not been established for newborns, infants, and children. Kelley Diane DO LAB - BLOOD ORDER BROO[facility] SPECIALTY CORE/PROT/ENDO Specialty Core/Prot/Endo [address] [facility], [address] [place] [address], [facility] [phone] * Treponema Abs w Reflex to RPR and Titer (11/26/2022 2:16 PM SEPTIC TANK SERVICER) Treponema Antibody Total Nonreactive Nonreactive 11/27/2022 10:22 AM SEPTIC TANK SERVICER [facility] SPECIALTY CORE/PROT/EN DO Blood BLOOD SPECIMEN / Unknown Venipuncture / Unknown 11/26/2022 2:16 PM SEPTIC TANK SERVICER 11/26/2022 2:28 PM SEPTIC TANK SERVICER Kelley Diane DO LAB - BLOOD ORDER [facility]OO[facility] SPECIALTY CORE/PROT/ENDO [facility] Specialty Core/Prot/Endo [address] [facility] [address], [address] [place] [address], [facility] [phone] * Rubella Antibody IgG Quantitative (11/26/2022 2:16 PM SEPTIC TANK SERVICER) Rubella Isabelle IgG Instrument Value 3.93 <0.90 Index 11/29/2022 12:01 PM SEPTIC TANK SERVICER SPECIALTY CORE/PROT/END O Rubella Antibody IgG Positive 11/29/2022 12:01 PM SEPTIC TANK SERVICER SPECIALTY CORE/PROT/END O Comment:Suggests previous ex posure or immunization and probable immunity. Blood BLOOD SPECIMEN / Unknown Venipuncture / Unknown 11/26/2022 2:16 PM SEPTIC TANK SERVICER 11/26/2022 2:27 PM SEPTIC TANK SERVICER Kelley Diane DO LAB - BLOOD ORDER BROO[facility] SPECIALTY CORE/PROT/ENDO Specialty Core/Prot/Endo [address] [facility] [address], [address] [place] [address], [facility] [phone] * HIV Antigen Antibody Combo (11/26/2022 2:16 PM SEPTIC TANK SERVICER) HIV Antigen Antibody Combo Nonreactive Nonreactive 11/27/2022 2:46 PM SEPTIC TANK SERVICER SPECIALTY CORE/PROT/EN DO Comment:HIV-1 p24 Ag & HIV-1 /HIV-2 Ab Not Detected Blood BLOOD SPECIMEN / Unknown Venipuncture / Unknown 11/26/2022 2:16 PM SEPTIC TANK SERVICER 11/26/2022 2:28 PM SEPTIC TANK SERVICER Kelley Diane DO LAB - BLOOD ORDER BROOKE [facility] SPECIALTY CORE/PROT/ENDO UM Specialty Core/Prot/Endo [address] [facility] [address], [address] [place] [address], [facility] [phone] * Hepatitis B surface antigen (11/26/2022 2:16 PM SEPTIC TANK SERVICER) Hepatitis B Surface Antigen Nonreactive Nonreactive 11/27/2022 2:46 PM SEPTIC TANK SERVICER UM SPECIALTY CORE/PROT/EN DO Blood BLOOD SPECIMEN / Unknown Venipuncture / Unknown 11/26/2022 2:16 PM SEPTIC TANK SERVICER 11/26/2022 2:28 PM SEPTIC TANK SERVICER Kelley Diane DO LAB - BLOOD ORDER BROOKE [facility] SPECIALTY CORE/PROT/ENDO UM Specialty Core/Prot/Endo [address] [facility] [address] [facility], [address] [place] [address] documented in this encounter Visit Diagnoses Diagnosis Encounter for supervision of other normal in second trimester- Primary Encounter for supervision of other normal in second trimester documented in this encounter Additional Health Concerns Assessment Noted Time PHQ-9 Depression Total Score: 19 05/14/2 021 3:52 PM CDT documented as of this encounter Care Teams Packing House Laborer Relationship Specialty Start Date End Date Abbey Bagley PA-C PCP - General Physician Re Etcher 08/15/20 Abbey Bagley PA-C Physician Re Etcher 04/11/20 05/02/23 documented as of this encounter
--- OUTSIDE RECORDS SUMMARY | 2023-11-03 06:38 | XMS_ITS | Encounter Summary ---
Author Name Unknown Organization [place] Address [address] [place] [address] Care Team Providers Care Fur Polisher Name Role Phone Abbey Bagley PA-C Unavailable Unavailable Abbey Bagley PA-C Primary Care Provider Unava ilnIo Reynolds MD Unavailable [phone] Reason for Visit * Reason Comments Headache Abdominal Pain Back Pain Encounter Details Date Type Department Care Team (Late st Contact Info) Description 11/04/2022 5:28 PM OFFICE NURSE - 11/04/2022 7:04 PM [facility] Emergency Dept [address] [place] [address] Jillian Multani MD [facility] [address] [facility] [place] [id number] Nonintractable headache, unspecified chronicity pattern, unspecified headache type; 14 weeks gestation of Discharge Disposition: Left Against Medical Advice Social History Tobacco Use Types Packs/Day Years Used Date Smoking Tobacco: Every Day Cigarettes 0.3 Smokeless Tobacco: Never Alcohol Use Standard Drinks/Week Comments Not Currently 0 (1 standard drink = 0.6 oz pur e alcohol) Seldom PHQ-2 Answer Date Recorded PHQ-2 Score 4 05/14/2021 [place] Depression Scale Answer Date Recorded [place] Depression Score 13 03/10/2021 Last EPDS Self [...] Coronavirus/COVID-19? No / Unsure 11/04/2022 3:04 PM OFFICE NURSE documented as of this encounter Last Filed Vital Signs Vital Sign Reading Time Taken Comments Blood Pressure 115/79 11/04/2022 3:19 PM OFFICE NURSE Pulse 83 11/04/2022 3:15 PM OFFICE NURSE Temperature 36.6 ??C (97.8 ??F) 11/04/2022 3:15 PM CS T Respiratory Rate 16 11/04/2022 3:15 PM OFFICE NURSE Oxygen Saturation 100% 11/04/2022 3:15 PM OFFICE NURSE Inhaled Oxygen Concentration - - Weight 89.4 kg (197 lb) 11/04/2022 3:15 PM OFFICE NURSE Height 170.2 cm (5' 7) 11/04/2022 3:15 PM OFFICE NURSE Body Mass Index 30.85 11/04/2022 3:15 PM OFFICE NURSE documented in this encounter Medications at Time [...] states she had to leave to go steel pickler child. Pt signed AMA paperwork after Dr. Multani went through risks of leaving. Pt was told to come back with any worsening symptoms. CE NURSE * Jacque Pitts RN - 11/04/2022 3:17 [...] WDL WDL Cognitive/Neuro/Behavioral WDL Cognitive/Neuro/Behavioral WDL WDL CE NURSE * Jillian Multani MD - 11/04/2022 3:04 [...] normal gait, negative romberg, no dysdiadochokinesia, normal gtkffa-xrcm-iblety testing Appropriate interventions for symptom management were [...] EDC 05/04/2023. CRUZ PATE MD SYSTEM ID: [id number] I mental decision making 14 weeks. I recommended MRI brain and MRV brain to the patient to evaluate for mass bleeding and venous sinus thrombosis given . I recommended treatment with headache medications and fluids. Ultrasound result was discussed with the patient. At this time, she states that she must leave to steel pickler her child and is not able to stay for further diagnostic testing. She understands that she is leaving AGAINST MEDICAL ADVICE but may return at any time for further evaluation. She understands that risk of missed intracranial pathology. Jillian Multani MD 11/04/22 1840 Jillian Multani MD 11/05/22 0214 CE NURSE documented in this encounter Plan of Treatment Not on file documented as of this encounter Procedures Procedure Name Priority Date/Time Associated Diagnosis Comments US OB < 14 WEEKS SINGLE-TRANSABDOMINAL STAT 11/04/2022 4:09 PM OFFICE NURSE CBC WITH PLATELETS AND DIFFERENTIAL STAT 11/04/2022 3:22 PM OFFICE NURSE CBC WITH PLATELETS & DIFFERENTIAL STAT 11/04/2022 3:22 PM OFFICE NURSE HCG QUANTITATIVE STAT 11/04/2022 3:22 PM OFFICE NURSE documented in this encounter Results * US OB < 14 Weeks Single (11/04/2022 4:09 PM OFFICE NURSE) Anatomical Region Laterality Modality Abdomen/Pelvis Ultrasound Impressions 11/04/2022 7:34 PM OFFICE NURSE IMPRESSION: Single living intrauterine gestation at 14 weeks 1 day, EDC 05/04/2023. CRUZ PATE MD SYSTEM ID: [id number] Narrative 11/04/2022 7:34 PM OFFICE NURSE US OB < 14 WEEKS SINGLE-TRANSABDOMINAL 11/04/2022 [...] EDC 05/04/2023. CRUZ PATE MD SYSTEM ID: [id number] Wagner Moody MD IMG US ORDERABLES * (ABNORMAL) CBC with platelets and differential (11/04/2022 3:22 PM OFFICE NURSE) WBC Count 9.2 4.0 - 11.0 10e3/uL 11/04/2022 5:49 PM OFFICE NURSE [facility] RBC Count 5.16 3.80 - 5.20 10e6/uL 11/04/2022 5:49 PM OFFICE NURSE [facility] Hemoglobin 13.2 11.7 - 15.7 g/dL 11/04/2022 5:49 PM OFFICE NURSE [facility] Hematocrit 41.7 35.0 - 47.0 % 11/04/2022 5:49 PM OFFICE NURSE [facility] MCV 81 78 - 100 fL 11/04/2022 5:49 PM OFFICE NURSE [facility] MCH 25.6(L) 26.5 - 33.0 pg 11/04/2022 5:49 PM OFFICE NURSE [facility] MCHC 31.7 31.5 - 36.5 g/dL 11/04/2022 5:49 PM OFFICE NURSE [facility] RDW 15.4(H) 10.0 - 15.0 % 11/04/2022 5:49 PM OFFICE NURSE [facility] Platelet Count 264 150 - 450 10e3/uL 11/04/2022 5:49 PM OFFICE NURSE [facility] % Neutrophils 74 % 11/04/2022 5:49 PM OFFICE NURSE [facility] % Lymphocytes 17 % 11/04/2022 5:49 PM OFFICE NURSE [facility] % Monocytes 5 % 11/04/2022 5:49 PM OFFICE NURSE [facility] % Eosinophils 3 % 11/04/2022 5:49 PM OFFICE NURSE [facility] % Basophils 1 % 11/04/2022 5:49 PM OFFICE NURSE [facility] % Immature Granulocytes 0 % 11/04/2022 5:49 PM OFFICE NURSE [facility] NRBCs per 100 WBC 0 <1 /100 023 5:49 PM OFFICE NURSE [facility] Absolute Neutrophils 6.8 1.6 - 8.3 10e3/uL 11/04/2022 5:49 PM OFFICE NURSE [facility] Absolute Lymphocytes 1.5 0.8 - 5.3 10e3/uL 11/04/2022 5:49 PM OFFICE NURSE [facility] Absolute Monocytes 0.5 0.0 - 1.3 10e3/uL 11/04/2022 5:49 PM OFFICE NURSE [facility] Absolute Eosinophils 0.2 0.0 - 0.7 10e3/uL 11/04/2022 5:49 PM OFFICE NURSE [facility] Absolute Basophils 0.1 0.0 - 0.2 10e3/uL 11/04/2022 5:49 PM OFFICE NURSE [facility] Absolute Immature Granulocytes 0.0 <=0.4 10e3/uL 11/04/2022 5:49 PM OFFICE NURSE [facility] Absolute NRBCs 0.0 10e3/uL 11/04/2022 5:49 PM OFFICE NURSE [facility] Blood BLOOD SPECIMEN / Unknown Venipuncture / Unknown 11/04/2022 3:22 PM OFFICE NURSE 11/04/2022 5:43 PM OFFICE NURSE Jillian Multani MD LAB - BL OOD ORDERABLES [facility] [address] Lab (1st floor, no room number) [place] [address], [facility] [phone] * (ABNORMAL) HCG QUANTitative (blood) (11/04/2022 3:22 PM OFFICE NURSE) hCG Quantitative 43,965(H) <5 mIU/mL 11/04/19 6:59 PM OFFICE NURSE [facility] Comment: Adult: 0-5 mIU/mL for healthy non- person Neonates: Should be within normal ranges by 2 days after Blood BLOOD SPECIMEN / Unknown Venipuncture / Unknown 11/04/2022 3:22 PM OFFICE NURSE 11/04/2022 5:43 PM OFFICE NURSE Jillian Beba Multani MD LAB - BL OOD ORDERABLES LABORATORY [facility] [address] Lab (1st floor, no room number) [place] [address], [facility] [phone] documented in this encounter Visit Diagnoses Diagnosis [...] Liquid not required. $Given 11/04/2022 3:33 PM OFFICE NURSE 4 mg documented in this encounter Active and Recently Administered Medications Times are shown in OFFICE NURSE. Scheduled Medication Order 11/02/2022 11/03/2022 11/04/2022 0.9% [...] documented as of this encounter Care Teams Fur Polisher Relationship Specialty Start Date End Date Abbey Bagley PA-C PCP - General Physician Technical Communicator 08/15/20 Abbey Bagley PA-C Physician Technical Communicator 04/11/20 05/02/23 Ino Robbins MD [address] [place] [address] Assigned OBGYN Provider 03/08/21 documented as of this encounter
--- OUTSIDE RECORDS SUMMARY | 2023-11-03 06:38 | XMS_ITS | Encounter Summary ---
Author Name Unknown Organization [place] Address [address] [place] [address] Care Team Providers Care Air Brush Artist Name Role Phone Abbey Bagley PA-C Unavailable [...] points; Administer PHQ-9 if positive 2 11/17/2022 [place] Depression Scale Answer Date Recorded [place] Depression Score 13 03/10/2021 Last EPDS Self [...] Coronavirus/COVID-19? No / Unsure 11/17/2022 6:32 PM HYDROTHERAPIST documented as of this encounter Plan of Treatment Not on file documented as of this encounter Visit Diagnoses Not on filedocumented in this encounter Additional Health Concerns Assessment Noted Time PHQ-9 Depression Total Score: 19 021 3:52 PM CDT documented as of this encounter Care Teams Air Brush Artist Relationship Specialty Start Date End Date Abbey Bagley PA-C PCP - General Physician Mexican Food Cook 08/15/20 Abbey Bagley PA-C Physician Mexican Food Cook 04/11/20 05/02/23 Ino Robbins MD [address] [place] [address] Assigned OBGYN Provider 03/08/21 documented as of this encounter
[2023-11-03] MEDS: KETOROLAC 10 MG TABLET PO (06:40)
[2023-11-03 06:48] LABS: Basophils Absolute Auto 0.05 K/uL (0.00-0.30); Basophils Percent Auto 0.9 % (0.0-3.0); Eosinophils Absolute Auto 0.22 K/uL (0.00-0.50); Eosinophils Percent Auto 3.8 % (0.0-7.0); Hematocrit 40.3 % (33.0-51.0); Hemoglobin* 12.8 gm/dL (12.0-16.0); Lymphocytes Percent Auto 20.8 % (20-44); Mean Corpuscular HGB Conc 32 gm/dL (32-36); Mean Corpuscular Hemoglobin 28 pg (26-34); Mean Corpuscular Volume 87 fL (80-100); Monocytes Percent Auto 6.7 % (0.0-11.0); Neutrophils Absolute Auto 3.92 K/uL (1.7-7.0); Neutrophils Percent Auto 67.8 % (42.0-72.0); Platelet Count* 275 K/uL (140-440); Red Blood Count 4.66 m/uL (4.00-5.20); White Blood Count* 5.78 K/uL (4.50-11.00)
[2023-11-03 06:50] LABS: Slide Review Reflex No
[2023-11-03 07:02] LABS: Troponin, Point-of-Care* 0.01 ng/ml (0.01-0.04)
[2023-11-03 07:26] LABS: Chloride* 107 mmol/L (96-114)
[2023-11-03 07:27] LABS: Sodium* 141 mmol/L (135-149)
[2023-11-03 07:29] LABS: Creatinine* 0.7 mg/dL (0.5-1.5); Est. Creatinine Clearance* 123.63; Estimated Glomerular Filt Rate 126 ml/min
[2023-11-03 07:30] LABS: Anion Gap 9 mEq/L (7-15); Blood Urea Nitrogen* 11 mg/dL (5-24); Calcium* 9.2 mg/dL (8.4-10.6); Carbon Dioxide* 25 mmol/L (20-32); Glucose* 97 mg/dL (60-115)
[2023-11-03 07:33] LABS: C Reactive Protein* 0.6 mg/dL (0.5-1.0)
[2023-11-03 08:04] LABS: D Dimer Quantitative* < 0.27 ug/ml (0.00-0.50)
[2023-11-03 08:15] VITALS: BP 100/61; PULSE 71; RESP 16; O2SAT 97
== END 2023-11-03 08:17 | disposition home or self-care (01) ==
PROVIDERS: Emergency Provider Family Medicine; PCP Nurse Practitioner Family
DX: R07.9 Chest pain, unspecified (principal)
CPT/HCPCS: 36415; 80048; 84484; 85025; 85379; 86140; 93005; 99284; A9270

== ENCOUNTER 2023-11-04 21:21 | Emergency (ER) | payer MEDICAID, SELFPAY ==
[2023-11-04 21:36] VITALS: BP 133/80; PULSE 93; RESP 16; TEMP 36.8; O2SAT 98
--- NOTE | 2023-11-04 21:45 | ED_ITS ---
HPI - General Adult General Chief complaint: Unspecified Complaint, Adult Stated complaint: hasn't slept in 3 days, headache History of Present Illness HPI narrative: Patient is a 23-year-old woman who can sleep. She states she has not slept for 3 days. She has no other symptoms. She has history of anxiety and she does see Mental Health at the generally give her 10 tablets of Ativan a month. She is out of those. She comes in stating that she feels fine other than the anxiety which is precluding her from sleeping. We did meet previously and I treated her for a clamp see with seizures. The baby and she are otherwise doing well. Patient has no racing thoughts no suicidal or homicidal ideation. Related Data Home Medications Medication Instructions Recorded Confirmed valacyclovir 500 mg tablet 500 mg PO DAILY 05/10/23 11/03/23 (Valtrex) ascorbic acid (vitamin C) 1,000 mg 1 g PO Q6H 06/28/23 11/03/23 tablet ferrous sulfate 325 mg (65 mg 325 mg PO QDAY 06/28/23 11/03/23 iron) tablet (Iron (ferrous sulfate)) lorazepam 1 mg tablet 1 mg PO DAILY PRN 09/28/23 11/03/23 Previous Rx's Medication Instructions Recorded albuterol sulfate 90 mcg/actuation 2 puff inhalation Q4-6H PRN 08/30/23 aerosol inhaler shortness of breath or wheezing #8.5 grams acetaminophen 500 mg tablet 1,000 mg (2 x 500 mg) PO Q6H PRN 09/15/23 Pain #0 tabs Allergies Allergy/AdvReac Type Severity Reaction Status Date / Time tea tree Allergy Mild Verified 11/03/23 05:57 adhesive Allergy Rash Verified 11/03/23 05:57 lamotrigine [From Lamictal] Allergy Verified 11/03/23 05:57 Review of Systems Status of ROS: Reports: 10 or more systems reviewed and unremarkable except as noted in History and below [facility] Medical History PTSD (post-traumatic stress disorder) ?F43.10 - Post-traumatic stress disorder, unspecified (ICD-10) Palpitations ?R00.2 - Palpitations (ICD-10) Hypertension ?I10 - Essential (primary) hypertension (ICD-10) Eclampsia ?O15.9 - Eclampsia, unspecified as to time period (ICD-10) Anxiety, generalized ?F41.1 - Generalized anxiety disorder (ICD-10) Migraines ?G43.909 - Migraine, unspecified, not intractable, without status migrainosus (ICD-10) Seizure ?R56.9 - Unspecified convulsions (ICD-10) Family History Maternal Grandfather Heart disease Father Depression Anxiety Alcohol dependence Drug dependence Paternal Grandmother Anxiety Depression Mother Anxiety Depression Diabetes Alcohol dependence Drug dependence Maternal Grandmother Preeclampsia Paternal Grandfather Anxiety Depression Alcohol dependence Eczema Social History Narrative: . 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 The patient vapes. No alcohol. No illicit drug use. What is your current living situation?: I presently have a place to live Problems where you live: no known problems In the past 12 months, utilities in danger of being shut off: no In past 12 months, lack of transportation kept you from medical appts, meetings, work, or getting things needed for daily living: no In the past 12 mos, have been you worried that your food would run out before you had money to buy more?: never true In the past 12 mos, the food you bought just didn't last and you didn't have money to buy more?: never true Smoking Status: Current every day smoker What tobacco products do you use: cigarettes Do you use any of these nicotine containing products: None Second hand tobacco smoke exposure: Yes How often do you have a drink containing alcohol: never How often do you have six or more drinks on one occasion: Never AUDIT-C Alcohol total score: 0 Non-prescribed substance use: denies use Caffeine: Yes How often does anyone, including family, friends and others, physically hurt you : never How often does anyone, including family, friends and others, insult or talk down to you: never How often does anyone, including family, friends and others, threaten you with harm: never How often does anyone, including family, friends and others, scream or curse at you: never Little interest or pleasure in doing things: several days Feeling down, depressed, or hopeless: more than half the days service: No Exam Narrative: Exam Narrative: EXAM GENERAL: Patient appears comfortable and well. EYES: No scleral icterus. LYMPH: No supraclavicular or cervical lymphadenopathy. SKIN: Visible skin seen during exam normal or with benign process only. EXT: No dependent lower extremity pedal edema. HEART: Regular rate and rhythm with no murmurs, rubs, or gallops. LUNGS: Clear to auscultation bilaterally with no crackles or wheezes. ABD: Soft, non tender, non distended. PSYCH: Good eye contact, speech is not pressured. Const: Vital Signs, click to edit/add: Vital Signs - 24 hr 11/04/23 21:36 Temperature 98.2 F Pulse Rate [Pulse Oximeter] 93 Respiratory Rate 16 Blood Pressure [Ri ght Upper Arm] 133/80 Pulse Oximetry 98 Oxygen Delivery Me thod Room Air Course Vital Signs Vital signs: Initial Vital Signs Temperature 98.2 F 11/04/23 21:36 Temperature Source Temporal Artery Scan 11/04/23 21:36 Pulse Rate 93 11/04/23 21:36 Respiratory Rate 16 11/04/23 21:36 Blood Pressure 133/80 11/04/23 21:36 Blood Pressure Mean 97 11/04/23 21:36 Blood Pressure Position Sitting 11/04/23 21:36 Pulse Oximetry 98 11/04/23 21:36 Oxygen Delivery Method Room Air 11/04/23 21:36 Vital Signs Temperature 98.2 F 11/04/23 21:36 Pulse Rate 93 11/04/23 21:36 Respiratory Rate 16 11/04/23 21:36 Blood Pressure 133/80 11/04/23 21:36 Pulse Oximetry 98 11/04/23 21:36 Oxygen Delivery Method Room Air 11/04/23 21:36 Temperature 98.2 F 11/04/23 21:36 Pulse Rate 93 11/04/23 21:36 Respiratory Rate 16 11/04/23 21:36 Blood Pressure 133/80 11/04/23 21:36 Pulse Oximetry 98 11/04/23 21:36 Oxygen Delivery Method Room Air 11/04/23 21:36 Medical Decision Making MDM Narrative Medical decision making narrative: Patient is a 23-year-old woman who has an established relationship with psychiatrist who provides her with Ativan. He does not want to jeopardize that relationship by getting a refill of Ativan tonight. She has been taking melatonin as well as Benadryl but only in low doses. She is has no signs of impaired sensorium or danger to herself. This time I did recommend Benadryl on a p.r.n. basis as well as PCP follow-up. Medical Records Medical records reviewed: Yes I reviewed the patient's medical records Discharge Plan Discharge Clinical Impression: Insomnia Condition: Stable Instructions: Insomnia (ED) Additional Instructions: Benadryl 25-50 mg q.i.d. p.r.n. Melatonin 3-5 mg at at bedtime Follow-up with your doctor. Activity Level: No Restrictions Discharge Diet: Regular Prescriptions: No Action albuterol sulfate 90 mcg/actuation HFA aerosol inhaler 2 puff inhalation Q4-6H PRN (Reason: shortness of breath or wheezing) Qty: 8.5 0RF lorazepam 1 mg tablet 1 mg PO DAILY PRN ferrous sulfate [Iron (ferrous sulfate)] 325 mg (65 mg iron) tablet 325 mg PO QDAY ascorbic acid (vitamin C) 1,000 mg tablet 1 g PO Q6H acetaminophen 500 mg Tablet 1,000 mg PO Q6H PRN (Reason: Pain) Qty: 0 0RF valacyclovir [Valtrex] 500 mg tablet 500 mg PO DAILY Follow Up/Referrals: Comfort Platt APRN, DIABETES SOLUTIONS SPECIALIST [Primary Care Provider] - Stand Alone Forms: [employer] Info Instructions
--- OUTSIDE RECORDS SUMMARY | 2023-11-04 21:52 | XMS_ITS | Clinical Summary ---
Author Name Unknown Organization [facility] Address [address] [place] [address] Phone Care Team Providers Care Therapeutic Dietitian Name Role Phone Unavailable Primary Care Provider Unavailabl e Source Comments ePACT Network is fully rolled out on [employer]. Last update 03/14/09.Pure Focus Allergies Active Allergy Reactions Criticality Noted Date [...] screening 02/05/2005 06/08/20 23 Overview: LW Onset: [id number] ; Child and Teen Check Up Needs Resolved Problems Problem Noted Date Diagnosed Date Resolved Date Acute encephalopathy 05/07/2023 06/08/2023 023 Encounters Date Type Department Care Team Description 10/14/2023 10:00 AM HAND TOOL FILER Telemedicine Psych Rehab [facility] [address] [address] Claire Workman, [facility] Karoline Benson MD Discharge Disposition: Discharged to home or self care (routine discharge) 09/30/2023 10:00 AM HAND TOOL FILER Telemedicine Psych Re[facility] [address] [address] Claire Workman, [facility] Karoline Benson MD Discharge Disposition: Discharged to home or self care (routine discharge) 09/23/2023 10:00 AM HAND TOOL FILER Telemedicine Psych Re[facility] [address] [address] Claire Workman, [facility] Mando Estes DO Discharge Disposition: Discharged to home or self care (routine discharge) 09/09/2023 10:00 AM HAND TOOL FILER Telemedicine Psych Rehab [facility] [address] [address] Claire Workman, [facility] Discharge Disposition: Discharged to home or self care (routine discharge) 09/07/2023 [place] [facility] [address] [address] Regina Romero MHW Mother Baby - Mental Health Outreach 08/26/2023 10:00 AM HAND TOOL FILER Telemedicine Psych Rehab [facility] [address] [address] Claire Workman, [facility] Discharge Disposition: Discharged to home or self care (routine discharge) 08/19/2023 1:00 PM HAND TOOL FILER Telemedicine Psych Rehab [facility] [address] [address] Claire Workman, [facility] Mother Baby - Standard Diagnostic Assessment Discharge Disposition: Discharged to home or self care (routine discharge) 08/19/2023 10:00 AM HAND TOOL FILER Telemedicine Psych Rehab [facility] [address] [address] Claire Workman, [facility] Discharge Disposition: Discharged to home or self care (routine discharge) 08/12/2023 10:00 AM CDT Telemedicine Psych Rehab [address] [address] Claire Workman, [facility] Discharge Disposition: Discharged to home or self care (routine discharge) 08/12/2023 Documentation Only [address] [address] Kiana Borges, anthropology and archeology instructor Rehab Health Screen from Last 3 Months [...] 06/08/2023 8:18 PM CDT Plan of Treatment Upcoming Encounters Date Type Department Care Team Description 11/09/2023 4:30 PM HAND TOOL FILER [facility] [address] [address] Alfred Lambert, FARM APPRAISER, PICK PACK WORKER [address] [address] Scheduled Discharge Disposition: Discharged to home or self care (routine discharge) Health Maintenance Due Date Last Done Comments [...] Additional history exists HIV Screening Completed 11/26/2022, 12/2019, 07/01/2020, Additional history exists RSV Immunoglobulin Aged [...] growth and self-agency No Claire Workman LPCC Additional Health Concerns Problem Noted Date Diagnosed [...] Advance Directives For more information, please contact: [phone] Latest Code Status on File Code Status Date Activated Date Inactivated Comments Full Code 06/08/2023 10:12 PM 06/15/2023 1:52 PM Question Answer Comments Does the Patient have prefer ences regarding life sustaining measures (these options only apply when the patient has a pulse): No Discussed Code Status With Whom? Not discussed
--- OUTSIDE RECORDS SUMMARY | 2023-11-04 21:52 | XMS_ITS | Encounter Summary ---
Author Name Unknown Organization [facility] Address [address] [place] [address] Phone Care Team Providers Care Toolman Name Role Phone Unavailable Primary Care Provider Unavailabl e Encounter Details Date Type Department Care Team Description 10/14/2023 10:00 AM CARGO INSPECTOR [facility]icine [facility] [address] [place] [address] Claire Workman, [facility] [address] [place], [place] [address] Karoline Benson MD 701 [facility] S1 [address]60 [place], [place] [phone] Discharge Disposition: Discharged to home or self [...] as of this encounter Plan of Treatment Upcoming Encounters Date Type Department Care Team Description 11/09/2023 4:30 PM CARGO INSPECTOR [facility] [address] [address] Alfred Lambert, STATION AGENT, HIGH SCHOOL HISTORY TEACHER [address] [place] [address] Scheduled Discharge Disposition: Discharged to home or self care (routine discharge) documented as of this encounter Goals Goal [...] Total Score: 7 08/22/20 23 11:05 AM CARGO INSPECTOR PHQ-2 Depression Total Score: 2 08/22/20 23 11:05 AM CARGO INSPECTOR documented as of this encounter
--- OUTSIDE RECORDS SUMMARY | 2023-11-04 21:52 | XMS_ITS ---
Care Plan Created on: November 04, 2023 Merry Rooney : 2000 Sex: Female Author Name Unknown Organization [facility] Address [address] [place] [address] Phone Care Team Providers Care Satellite Tv Technician Name Role Phone Unavailable Primary Care [...] screening 02/05/2005 06/08/20 23 Overview: LW Onset: [id number] ; Child and Teen Check Up Needs [...] to make safe choices No Claire Workman, [facility] Reflective Functioning - MB OTP - To increase capacity to recognize and act on her child(deann)? s needs Care Plan MB OTP - To increase capacity to recognize and act on her child(deann)? s needs No Claire Workman, [facility] Developmental Growth - MB OTP - Increase overall functioning and stability by working towards emotional safety, developmental growth and self-agency Care Plan MB OTP - Increase overall functioning and stability by working towards emotional safety, developmental growth and self-agency No Claire Workman, [facility] Interventions Intervention Entry Date Outcome (Patient) [...]
--- OUTSIDE RECORDS SUMMARY | 2023-11-04 21:52 | XMS_ITS | Encounter Summary ---
Author Name Unknown Organization [facility] Address [address] [place] [address] Phone Care Team Providers Care Corrections Officer Name Role Phone Unavailable Primary Care Provider Unavailabl e Encounter Details Date Type Department Care Team Description 09/30/2023 10:00 AM LABORER TURKEY FARM Telemedicine Psych Rehab [facility] [address] [place] [address] Claire Workman, [facility] [address] [place], [place] [address] Karoline Benson MD 701 [facility] S1 [address] [place], [place] [address] Discharge Disposition: Discharged to home or self [...] 09/30/2023 10:00 AM CST Dept: [facility] Type of Service: Group Therapy Provider/Group Animal Nurse: Claire Workman [facility] Date of Service: 09/30/2023 Start [...] Provider's Physical Location: Onsite at [facility] Participants in this Telemedicine Visit other than the patient/provider and other group attendees included: N/A This visit started at: 10 AM and concluded at: 11:30 AM. Total time spent on this visit, including xllegdrj-[id number] interaction, review of medical record, and documentation: 100 minutes. Patient consents to this service: Yes Group Description: Tuesday Connections group consists of a psychotherapy group with content from [place] [employer]. Session Content of Today Group: Topics [...] acts Claire Workman LPCC, 09/30/2023 1:35 PM RER TURKEY FARM documented in this encounter Plan of Treatment Upcoming Encounters Date Type Department Care Team Description 11/09/2023 4:30 PM LABORER TURKEY FARM [facility] [address] [place] [address] Alfred Lambert, UNDERCAR SPECIALIST, LABORER HEADING [address] [address] Scheduled Discharge Disposition: Discharged to home or [...] Total Score: 7 08/22/20 23 11:05 AM LABORER TURKEY FARM PHQ-2 Depression Total Score: 2 08/22/20 23 11:05 AM LABORER TURKEY FARM documented as of this encounter
--- OUTSIDE RECORDS SUMMARY | 2023-11-04 21:52 | XMS_ITS | Encounter Summary ---
Author Name Unknown Organization [facility] Address [address] [place] [place] [address] Phone Care Team Providers Care Red Cross Worker Name Role Phone Unavailable Primary Care Provider Unavailabl e Encounter Details Date Type Department Care Team Description 09/23/2023 10:00 AM LOCOMOTIVE OPERATOR Telemedicine Psych Rehab [address] [phone] Claire Workman, [address] [phone] Mando Estes DO [place] [address] [address] Discharge Disposition: Discharged to home or self [...] Notes * Group Note - Claire Workman [facility] - 09/23/2023 10:00 AM CST Dept: [facility] Type of Service: Group Therapy Provider/Group Ceramic Capacitor Processor: Claire Workman [facility] Date of Service: 09/23/2023 Start Time: 10:00 [...] Location: Home Provider's Physical Location: Onsite at [facility] Participants in this Telemedicine Visit other than the patient/provider and other group attendees included: N/A This visit started at: 10 AM and concluded at: 11:30 AM. Total time spent on this visit, including drveosyu-lf-buzesin interaction, review of medical record, and documentation: 100 minutes. Patient consents to this service: Yes Group Description: Tuesday Connections group consists of a psychotherapy group with content from [place] [employer]. Session Content of Today's Group: Topics [...] acts Claire Workman LPCC, 09/23/2023 1:01 PM MOTIVE OPERATOR documented in this encounter Plan of Treatment Upcoming Encounters Date Type Department Care Team Description 11/09/2023 4:30 PM LOCOMOTIVE OPERATOR [facility] [address] [place] [address] Alfred Lambert, BUILDING PRINCIPAL, GAS REVERSER [address] [address] Scheduled Discharge Disposition: Discharged to home or [...] Total Score: 7 08/22/20 23 11:05 AM LOCOMOTIVE OPERATOR PHQ-2 Depression Total Score: 2 08/22/20 23 11:05 AM LOCOMOTIVE OPERATOR documented as of this encounter
--- OUTSIDE RECORDS SUMMARY | 2023-11-04 21:53 | XMS_ITS | Encounter Summary ---
Author Name Unknown Organization [facility] Address [address] [place] [address] Phone Care Team Providers Care Agriculture Specialist Name Role Phone Unavailable Primary Care Provider Unavailabl e Reason for Visit * Prior Authorization (Routine) - Closed Specialty Diagnoses / Procedures Referred By Contac t Referred To Contact Psych Rehab Diagnoses Bipolar II disorder () Trauma and stressor-related disorder Procedures MOTHER BABY ENROLLMENT Jazmine Potter, [facility] [address] [place] [address] [address] Referral ID Status Reason Start Date Expiration Date Visits Re quested Visits Authorized [id number] Closed 05/09/2023 06/24/2023 105 105 Encounter Details Date Type Department Care Team Description 06/23/2023 1:45 PM CDT [facility] [address] [place] [address] Karoline Benson MD 701 [facility] S1 [address]60 [place], [place] [address] Dh, Mother Baby Discharge Disposition: Discharged to [...] LPCC - 06/23/2023 1:45 PM CDT Dept: [facility] Type of Service: Group Therapy Name of Group: Psychoeducation/Skills Group Provider/Group Computer Training Specialist: Claire Workman LPCC Date of Service: 06/23/2023 Start Time: 1:45 PM Stop Time: 2:30 PM Number of Group Members Present: 5 Location of Service: Face to Face at [facility] Session Content (Intervention): The purpose [...] Department Care Team Description 11/09/2023 4:30 PM RV DETAILER [facility] [address] [address] Alfred Lambert, SOLDER LEVELER PRINTED CIRCUIT BOARDS, INTRAMURAL DIRECTOR [address] [address] Scheduled Discharge Disposition: Discharged to home or self care (routine discharge) documented as of this encounter Visit Diagnoses Diagnosis Bipolar II disorder ()- Primary Other bipolar disorders Trauma and stressor-related disorder documented in this encounter Additional Health Concerns Assessment Noted Time PHQ-9 Depression Total Score: 19 023 4:26 PM CDT PHQ-2 Depression Total Score: 3 06/02/20 23 4:26 PM CDT documented as of this encounter
--- OUTSIDE RECORDS SUMMARY | 2023-11-04 21:53 | XMS_ITS | Encounter Summary ---
Author Name Unknown Organization [facility] Address [address] [place] [address] Phone Care Team Providers Care Adoption Counselor Name Role Phone Unavailable Primary Care Provider Unavailabl e Reason for Visit * Prior Authorization (Routine) - Closed Specialty Diagnoses / Procedures Referred By Contac t Referred To Contact Psych Rehab Diagnoses Bipolar II disorder () Trauma and stressor-related disorder Procedures MOTHER BABY ENROLLMENT Jazmine Potter, [facility] [address] [place] [address] [address] Referral ID Status Reason Start Date Expiration Date Visits Re quested Visits Authorized [id number] Closed 05/09/2023 06/24/2023 105 105 Encounter Details Date Type Department Care Team Description 06/22/2023 1:45 PM CDT [facility] [address] [place] [phone] Karoline Benson MD 701 [facility] S1 860 [place], [place] [address] Dh, Mother Baby Discharge Disposition: Discharged to [...] LICSW - 06/22/2023 1:45 PM CDT Dept: [facility] Type of Service: Group Therapy Name of Group: Psychoeducation/Skills Group Provider/Group New Car Inspector: Jazmine Potter LICSW Date of Service: 06/22/2023 Start Time: 1:45 PM Stop Time: 2:30 PM Number of Group Members Present: 4 Location of Service: Face to Face at [facility] SUPERINTENDENT CEMETERY SERVICES PROVIDED (if applicable): No Session Content [...] Department Care Team Description 11/09/2023 4:30 PM [facility] [address] [place] [address] Alfred Lambert, SUBSTATION MECHANIC, FIRE ALARM INSPECTOR [address] [place] [address], [place] [address] Scheduled Discharge Disposition: Discharged to home or [...]
--- OUTSIDE RECORDS SUMMARY | 2023-11-04 21:53 | XMS_ITS | Encounter Summary ---
Author Name Unknown Organization [facility] Address [address] [place] [address] Phone Care Team Providers Care Relocation Counselor Name Role Phone Unavailable Primary Care Provider Unavailabl e Encounter Details Date Type Department Care Team Description 07/22/2023 Plan of Care Documentation [facility] 701 [place] [address] Social History Tobacco Use Types Packs/Day Years [...] Department Care Team Description 11/09/2023 4:30 PM SUPERVISOR BAKING [facility] [address] [address] Alfred Lambert, RV DETAILER, ZOOKEEPER [address] [phone] Scheduled Discharge Disposition: Discharged to home or [...]
--- OUTSIDE RECORDS SUMMARY | 2023-11-04 21:53 | XMS_ITS | Encounter Summary ---
Author Name Unknown Organization [facility] Address [address] [place] [address] Phone Care Team Providers Care Internet Designer Name Role Phone Unavailable Primary Care Provider Unavailabl e Reason for Visit * Prior Authorization (Routine) - Closed Specialty Diagnoses / Procedures Referred By Contac t Referred To Contact Psych Rehab Diagnoses Bipolar II disorder () Trauma and stressor-related disorder Procedures MOTHER BABY ENROLLMENT Jazmine Potter, [facility] [address] [place] [address] [address] Referral ID Status Reason Start Date Expiration Date Visits Re quested Visits Authorized [id number] Closed 05/09/2023 06/24/2023 105 105 Encounter Details Date Type Department Care Team Description 06/22/2023 10:15 AM CDT [facility] [address] [place] [phone] Karoline Benson MD 701 [facility] S1 [address]60 [place], [place] [phone] Dh, Mother Baby Discharge Disposition: Discharged to [...] LPCC - 06/22/2023 10:15 AM CDT Dept: [facility] Type of Service: Group Therapy Name of Group: Psychotherapy Process Group Provider/Group Instrumentation Instructor: Claire Workman LPCC Date of Service: 06/22/2023 Start Time: 10:15 AM Stop Time: 11:00 AM Number of Group Members Present: 5 Location of Service: Face to Face at [facility] Session Content of Today's Group: At [...] Department Care Team Description 11/09/2023 4:30 PM TENNIS RACKET REPAIRER [facility] [address] [place] [address] Alfred Lambert, SEWING DEMONSTRATOR, EAR FLAP BINDER [address] [address] Scheduled Discharge Disposition: Discharged to home or [...]
--- OUTSIDE RECORDS SUMMARY | 2023-11-04 21:53 | XMS_ITS | Encounter Summary ---
Author Name Unknown Organization [facility] Address [address] [place] [address] Phone Care Team Providers Care Flight Surgeon Name Role Phone Unavailable Primary Care Provider Unavailabl e Reason for Visit * Prior Authorization (Routine) - Closed Specialty Diagnoses / Procedures Referred By Contac t Referred To Contact Psych Rehab Diagnoses Bipolar II disorder () Trauma and stressor-related disorder Procedures MOTHER BABY ENROLLMENT Jazmine Potter, [facility] [address] [place] [address] [address] [address] Referral ID Status Reason Start Date Expiration Date Visits Re quested Visits Authorized [id number] Closed 05/09/2023 06/24/2023 105 105 Encounter Details Date Type Department Care Team Description 06/22/2023 9:30 AM CDT [facility] [address] [place] [phone] Karoline Benson MD 701 [facility] S1 [address]60 [place], [place] [phone] Dh, Mother Baby Discharge Disposition: Discharged to [...] LPCC - 06/22/2023 9:30 AM CDT Dept: [facility] Type of Service: Group Therapy Name of Group: Psychoeducation/Skills Group Provider/Group Dehydrogenation Converter Operator: Claire Workman LPCC Date of Service: 06/22/2023 Start Time: 9:30 AM Stop Time: 10:15 AM Number of Group Members Present: 4 Location of Service: Face to Face at [facility] Session Content (Intervention): Welcomed any new [...] Department Care Team Description 11/09/2023 4:30 PM NURSING SCHEDULER [facility] [address] [address] Alfred Lambert, NODULIZER, LOGISTICS RESEARCH ENGINEER [address] [address] Scheduled Discharge Disposition: Discharged to home or [...]
--- OUTSIDE RECORDS SUMMARY | 2023-11-04 21:53 | XMS_ITS | Encounter Summary ---
Author Name Unknown Organization [facility] Address [address] [place] [address] Phone Care Team Providers Care Procurement Clerk Name Role Phone Unavailable Primary Care Provider Unavailabl e Encounter Details Date Type Department Care Team Description 08/19/2023 10:00 AM WAREHOUSE SHIPPING SUPERVISOR Telemedicine Psych Rehab [facility] [address] [place] [phone] Claire Workman LPCC [address] [place], [place] [address] Discharge Disposition: Discharged to home or self [...] LPCC - 08/19/2023 10:00 AM CST Dept: [facility] Type of Service: Group Therapy Provider/Group Cigar Binder: Claire Wormkan LPCC Date of Service: 08/19/2023 Start Time: [...] Provider's Physical Location: Onsite at [facility] Participants in this Telemedicine Visit other than the patient/provider and other group attendees included: N/A This visit started at: 10 AM and concluded at: 11:30 AM. Total time spent on this visit, including vcpvzkuu-bv-jcofbxc interaction, review of medical record, and documentation: 100 minutes. Patient consents to this service: Yes Group Description: Tuesday Connections group consists of a psychotherapy group with content from [place]. Session Content of Today's Group: Topics [...] disorder Claire Workman LPCC, 08/19/2023 2:14 PM HOUSE SHIPPING SUPERVISOR documented in this encounter Plan of Treatment Upcoming Encounters Date Type Department Care Team Description 11/09/2023 4:30 PM WAREHOUSE SHIPPING SUPERVISOR [facility] [address] [place] [address] Alfred Lambert, DATA PROCESSING MECHANIC, MANUFACTURING PRODUCTION MANAGER [address] [phone] Scheduled Discharge Disposition: Discharged to home or [...]
--- OUTSIDE RECORDS SUMMARY | 2023-11-04 21:53 | XMS_ITS | Encounter Summary ---
Author Name Unknown Organization [facility] Address [address] [place] [address] Phone Care Team Providers Care Concrete Stone Fabricating Supervisor Name Role Phone Unavailable Primary Care Provider Unavailabl e Reason for Visit * Prior Authorization (Routine) - Closed Specialty Diagnoses / Procedures Referred By Contac t Referred To Contact Psych Rehab Diagnoses Bipolar II disorder () Trauma and stressor-related disorder Procedures MOTHER BABY ENROLLMENT Jazmine Potter, [facility] [address] [place] [address] [address] Referral ID Status Reason Start Date Expiration Date Visits Re quested Visits Authorized [id number] Closed 05/09/2023 06/24/2023 105 105 Encounter Details Date Type Department Care Team Description 06/23/2023 10:15 AM CDT [facility] [address] [place] [phone] Karoline Benson MD 701 [facility] S1 860 [place], [place] [phone] Dh, Mother Baby Discharge Disposition: Discharged to [...] LPCC - 06/23/2023 10:15 AM CDT Dept: [facility] Type of Service: Group Therapy Name of Group: Psychotherapy Process Group Provider/Group School Vocational Educator: Claire Workman LPCC Date of Service: 06/23/2023 Start Time: 10:15 AM Stop Time: 11:00 AM Number of Group Members Present: 4 Location of Service: Face to Face at [facility] Session Content of Today's Group: At the [...] Department Care Team Description 11/09/2023 4:30 PM [facility] [address] [address] Alfred Lambert, [place], SUPERVISING BAILIFF [address] [phone] Scheduled Discharge Disposition: Discharged to home or [...]
--- OUTSIDE RECORDS SUMMARY | 2023-11-04 21:53 | XMS_ITS | Encounter Summary ---
Author Name Unknown Organization [facility] Address 1 [place] [address] Phone Care Team Providers Care Powerhouse Operator Name Role Phone Unavailable Primary Care Provider Unavailabl e Encounter Details Date Type Department Care Team Description 07/01/2023 10:00 AM CDT Telemedicine Psych Rehab [address] [phone] Claire Workman, [facility] [address] [place], [place] [address] Discharge Disposition: Discharged to home or self [...] Notes * Group [facility] - [facility] 07/01/2023 10:00 AM CDT Dept: [facility] Type of Service: Group Therapy Provider/Group Cereal Maker: Claire Workman [facility] Date of Service: 07/01/2023 Start Time: 10:00 AM Stop Time: 11:30 AM Number of Group Members Present: 4 Name of Group: Tuesday Connections Group Frequency: Weekly Location of Service: Hybrid Group (some participants face to face and some some on video): If this option is selected, telemed statement needs to be added for those who were on video. Telemedicine: [employer] Video Visit: This telemedicine visit is conducted by audio and video technology between thepatient and provider. Informed consent was provided during e-check in and signed by patient. Patient was offered opportunity to ask any questions. Patient's Physical Location: Home Provider's Physical Location: Onsite at [facility] Participants in this Telemedicine Visit other than the patient/provided included: Other group members This visit started at: 10 AM and concluded at: 11:30 AM. Group Description: Tuesday Connections group consists of a psychotherapy group with content from [employer] of [employer]. Session Content of Today's [...] Department Care Team Description 11/09/2023 4:30 PM [facility] Tele[facility]icine [facility] [address] [place] [phone] Alfred Lambert, RUBBER GASKET INSPECTOR TRIMMER, FIXING CARPENTER [address] [address] Scheduled Discharge Disposition: Discharged to home or [...]
--- OUTSIDE RECORDS SUMMARY | 2023-11-04 21:53 | XMS_ITS | Encounter Summary ---
Author Name Unknown Organization [facility] Address [address] [place] [address]. [place] [address] Phone Care Team Providers Care Vice Admiral Name Role Phone Unavailable Primary Care Provider Unavailabl e Encounter Details Date Type Department Care Team Description 06/23/2023 12:30 PM CDT Psych Rehab [facility]note 3[facility] for Family Healing [address] [place] [address] [phone] Ray Esposito MD [address] [phone] Discharge Disposition: Discharged to home or self [...] MD - 06/23/2023 12:30 PM CDT 06/23/2023 [facility]. [facility] - mother-baby day [facility] MB. Medication review. Recent chart notes reviewed on Epic - including most recent brief admission to [facility] in-patient psychiatry because of severe and unrelenting obsessional thoughts of harming her baby (06/08/23 - 06/15/23). Per therapy staff - (and confirmed by patient herself today) - Kristina is now living with her partner's family in [place] - until such time as she can summon the courage [facility] [place] (which naturally had triggered a return of [...] Department Care Team Description 11/09/2023 4:30 PM [facility] [address] [address] Alfred Lambert, RECRUITING INTERNSHIP, ENROLLMENT MANAGER [address] [address] Scheduled Discharge Disposition: Discharged to home or self care (routine discharge) documented as of this encounter Visit Diagnoses Not on filedocumented in this encounter Additional Health Concerns Assessment Noted Time PHQ-9 Depression Total Score: 19 023 4:26 PM CDT PHQ-2 Depression Total Score: 3 06/02/20 23 4:26 PM CDT documented as of this encounter
--- OUTSIDE RECORDS SUMMARY | 2023-11-04 21:53 | XMS_ITS | Encounter Summary ---
Author Name Unknown Organization [facility] Address 1 [place] [address] Phone Care Team Providers Care Carbon Grinder Name Role Phone Unavailable Primary Care Provider Unavailabl e Reason for Visit * Reason Comments Mother Baby - Standard Diagnostic Assess ment Encounter Details Date Type Department Care Team Description 08/19/2023 1:00 PM MATERIAL COORDINATOR Telemedicine Psych Rehab [facility] [address] [place], [place] [phone] Claire Workman, [facility] [address] [place] [address] [phone] Mother Baby - Standard Diagnostic Assessment Discharge [...] this encounter Progress Notes * Claire Workman [facility] - 08/19/2023 1:00 PM CST [facility] Patient Name: Merry Rooney : 2000 STANDARD DIAGNOSTIC ASSESSMENT Date of Service: 08/19/2023 Start Time: 1:07 pm Stop Time: 1:48 pm Location: Telemedicine: [employer] Video Visit: This telemedicine visit is conducted by audio and video technology between thepatient and provider. Informed consent was provided during e-check in and signed by patient. Patient was offered opportunity to ask any questions. Patient's Physical Location: Home Provider's Physical Location: [facility]site at [facility] PRESENTING CONCERN: Referral Source: referred by inpatient team at [facility] after traumatic of second child Reason for [...] who was referred by inpatient team at [facility] for evaluation of PTSD and effects of [...] She reports a history of self-injury from [id number]. She reports violent behaviors have happened several [...] Resources Current psychiatry provider is Juanita at [facility]. Current therapist is Raegan at [facility]. Current treatment resources include group psychotherapy. Other [...] and chemical health):?No Support for Sobriety Includes: [place] Support Group such as AA/SMART in the [...] Orientation: bisexual Race/Ethnicity: white History: No Belief System:?Zoroastrian, non-yazidi Impact of Cultural Influences on Treatment: None [...] needs include Food stamps Medical insurance Employment [facility]. Significant Personal Relationships: Patient is . Patient [...] law. Claire Workman LPCC, 08/19/2023 1:08 PM RIAL COORDINATOR documented in this encounter Plan of Treatment Upcoming Encounters Date Type Department Care Team Description 11/09/2023 4:30 PM MATERIAL COORDINATOR Telemedicine [facility] [address] [place] [phone] Alfred Lambert, MANAGER FIELD INVESTIGATIONS, ELECTRONIC INSTALLER [address] [address] Scheduled Discharge Disposition: Discharged to home or [...] Total Score: 7 08/22/20 23 11:05 AM MATERIAL COORDINATOR PHQ-2 Depression Total Score: 2 08/22/20 23 11:05 AM MATERIAL COORDINATOR documented as of this encounter
--- OUTSIDE RECORDS SUMMARY | 2023-11-04 21:53 | XMS_ITS | Encounter Summary ---
Author Name Unknown Organization [facility] Address 1 [place] [address] Phone Care Team Providers Care Entry Level Electrical Engineer Name Role Phone Unavailable Primary Care Provider Unavailabl e Encounter Details Date Type Department Care Team Description 08/12/2023 10:00 AM CDT Telemedicine Psych Rehab [facility] [address] [place] [address] [phone] Claire Workman LPCC [address] [place], [place] [address] Discharge Disposition: Discharged to home or self [...] LPCC - 08/12/2023 10:00 AM CDT Dept: [facility] Type of Service: Group Therapy Provider/Group Commercial Green Building Architect: Claire Workman LPCC Date of Service: 08/12/2023 [...] Location: Home Provider's Physical Location[facility] Participants in this Telemedicine Visit other than the patient/provider and other group attendees included: N/A This visit started at: 10 AM and concluded at: 11:30 AM. Total time spent on this visit, including ythisnjr-ra-lybywpy interaction, review of medical record, and documentation: 100 minutes. Patient consents to this service: Yes Group Description: Tuesday Connections group consists of a psychotherapy group with content from [place] [employer] [place] of [employer]. Session Content of Today's Group: Topics [...] () 2. Trauma and stressor-related disorder Claire Wokrman LPCC, 08/12/2023 12:00 PM documented in this encounter Plan of Treatment Upcoming Encounters Date Type Department Care Team Description 11/09/2023 4:30 PM [facility] Telemedicine Clinic [facility] Internal Medicine Clinics [address] [place] [phone] Alfred Lambert, POISER BALANCE, MONEY EXAMINER [address] [address] Scheduled Discharge Disposition: Discharged to home or [...]
--- OUTSIDE RECORDS SUMMARY | 2023-11-04 21:53 | XMS_ITS | Encounter Summary ---
Author Name Unknown Organization [facility] Address [address] [place] [phone] Phone Care Team Providers Care Front Desk Assistant Name Role Phone Unavailable Primary Care Provider Unavailabl e Reason for Visit * Prior Authorization (Routine) - Closed Specialty Diagnoses / Procedures Referred By Contac t Referred To Contact Psych Rehab Diagnoses Bipolar II disorder () Trauma and stressor-related disorder Procedures MOTHER BABY ENROLLMENT Jazmine Potter, [facility] 701 [place] [address] [address] Referral ID Status Reason Start Date Expiration Date Visits Re quested Visits Authorized [id number] Closed 05/09/2023 06/24/2023 105 105 Encounter Details Date Type Department Care Team Description 06/23/2023 11:00 AM CDT [facility] [address] [place] [phone] Karoline Benson MD 701 [facility] [address]60 [place], [place] [phone] Dh, Mother Baby Discharge Disposition: Discharged to [...] RN - 06/23/2023 11:00 AM CDT Dept: [facility] Type of Service: Group Therapy Provider/Group Bookkeeping Assistant: Kiana Borges RN Date of Service: 06/23/2023 Start Time: 11:15 AM Stop Time: 12:00 PM Number of Group Members Present: 4 Name of Group: Movement Location of Service: Face to Face at [facility] ASSISTANT PROFESSOR OF DRAMA SERVICES PROVIDED (if applicable): No Session Content (Intervention) (including goal/intended outcome): Encouraged group members to participate in mind-body skills facilitated by [facility] Trauma- Informed Yoga providers. [...] Department Care Team Description 11/09/2023 4:30 PM [facility] Telemedicine [facility] Internal [facility] Clinics [address] [place] [phone] Alfred Lambert, FINAL CANOE INSPECTOR, CLERK GUIDE [address] [address] Scheduled Discharge Disposition: Discharged to home or [...]
--- OUTSIDE RECORDS SUMMARY | 2023-11-04 21:53 | XMS_ITS | Encounter Summary ---
Author Name Unknown Organization [facility] Address 1 [place] [address] Phone Care Team Providers Care Twenty One Dealer Name Role Phone Unavailable Primary Care Provider Unavailabl e Encounter Details Date Type Department Care Team Description 08/26/2023 10:00 AM BATCH AND FURNACE OPERATOR Telemedicine Psych Rehab [facility] [address] [place] [phone] Claire Workman LPCC 701 [place], [place] [phone] Discharge Disposition: Discharged to home or self [...] - 08/26/2023 10:00 AM CST Dept: [facility] Type of Service: Group Therapy Provider/Group Batcher Operator: Claire Workman LPCC Date of Service: 08/26/2023 [...] Location: Home Provider's Physical Location: Onsite at [facility] Participants in this Telemedicine Visit other than the patient/provider and other group attendees included: N/A This visit started at: 10 AM and concluded at: 11:30 AM. Total time spent on this visit, including vpersnoq-ta-rbzayqx interaction, review of medical record, and documentation: 100 minutes. Patient consents to this service: Yes Group Description: Tuesday Connections group consists of a psychotherapy group with content from [place] of [employer]. Session Content of Today's Group: Topics [...] Discharge Plan/Anticipated Discharge: 09/09, then transfer to [facility] Diagnoses: 1. PTSD (post-traumatic stress disorder) 2. Mixed obsessional thoughts and acts Claire Workman LPCC, 08/26/2023 1:21 PM H AND FURNACE OPERATOR documented in this encounter Plan of Treatment Upcoming Encounters Date Type Department Care Team Description 11/09/2023 4:30 PM BATCH AND FURNACE OPERATOR [facility]medicine [facility] [address] [address] Alfred Lambert, FULFILLMENT SPECIALIST, PLUMBING DRAFTER [address] [phone] Scheduled Discharge Disposition: Discharged to home or [...] Total Score: 7 08/22/20 23 11:05 AM BATCH AND FURNACE OPERATOR PHQ-2 Depression Total Score: 2 08/22/20 23 11:05 AM BATCH AND FURNACE OPERATOR documented as of this encounter
--- OUTSIDE RECORDS SUMMARY | 2023-11-04 21:53 | XMS_ITS | Encounter Summary ---
Author Name Unknown Organization [facility] Address [address] [place] [phone] Phone Care Team Providers Care Environmental Systems Coordinator Name Role Phone Unavailable Primary Care Provider Unavailabl e Reason for Visit * Reason Comments Psych Rehab Health Screen Encounter Details Date Type Department Care Team Description 08/12/2023 Documentation Only [facility] 701 [place] [address] Kiana Borges, RN [facility] 701 [place] [address] Psych Rehab Health Screen Social History Tobacco [...] questions. Difficult to pay for child care lead teacher? X 2. Difficult to pay your [...] Department Care Team Description 11/09/2023 4:30 PM [facility] Telemedicine [facility] Clinics [address] [place] [phone] Alfred Lambert, INTERNET SALES REPRESENTATIVE, SERVICE ORDER TAKER [address] [address] Scheduled Discharge Disposition: Discharged to home or [...] safety, developmental growth and self-agency Claire Vazquez, [facility] documented as of this encounter Visit [...]
--- OUTSIDE RECORDS SUMMARY | 2023-11-04 21:53 | XMS_ITS | Encounter Summary ---
Author Name Unknown Organization [facility] Address [address] [place] [phone] Phone Care Team Providers Care Sheet Metal Lay Out Worker Name Role Phone Unavailable Primary Care Provider Unavailabl e Reason for Visit * Prior Authorization (Routine) - Closed Specialty Diagnoses / Procedures Referred By Contac t Referred To Contact Psych Rehab Diagnoses Bipolar II disorder () Trauma and stressor-related disorder Procedures MOTHER BABY ENROLLMENT Jazmine Potter, [facility] 701 [place] [address] [address] Referral ID Status Reason Start Date Expiration Date Visits Re quested Visits Authorized [id number] Closed 05/09/2023 06/24/2023 105 105 Encounter Details Date Type Department Care Team Description 06/22/2023 3:00 PM CDT [facility] 701 [place], [place] [phone] Noy Chen, [facility] 701 [place], [place] [address] Karoline Benson MD 701 [facility] S[facility] 860 [place], [place] [address] Discharge Disposition: Discharged to home or self [...] this encounter Progress Notes * Noy Chen, [facility] - 06/22/2023 3:00 PM CDT [facility] Progress Note Date of Service: 06/22/2023 Start Time: 3pm Stop Time: 4pm Location of Visit: Face to Face at [facility] Participants in this Visit other than the patient/provider included: Patient's partner. Pt was not present during today's visit. GRAD INTERN SERVICES PROVIDED (if applicable): No Type of [...] to reach out if needed. Email sent: Patient Response to Intervention (including any plans [...] Plan: 1. Psychotherapy: Pt to continue in [facility] programming; partner to engage in brief, individual support through MB team to ensure he and partner are best supported at this time 2. Psychiatric care: Dr. Benson/Dr. Mejia 3. Utilize emergency resources (APS, COPE) Noy Chen LICSW, 06/24/2023 10:00 AM documented in this encounter Plan of Treatment Upcoming Encounters Date Type Department Care Team Description 11/09/2023 4:30 PM HEAD OF SALES Telemedicine [facility]ics [address] [place] [phone] Alfred Lambert, EXTRACORPOREAL TECHNICIAN, UNIX SYSTEMS ADMINISTRATOR [address] [address] Scheduled Discharge Disposition: Discharged to home or [...]
--- OUTSIDE RECORDS SUMMARY | 2023-11-04 21:53 | XMS_ITS | Encounter Summary ---
Author Name Unknown Organization [facility] Address 1 [place] [address] Phone Care Team Providers Care Histology Supervisor Name Role Phone Unavailable Primary Care Provider Unavailabl e Encounter Details Date Type Department Care Team Description 09/09/2023 10:00 AM FORESTRY LABORER Telemedicine Psych Rehab [facility] [address] [place] [address] [phone] Claire Workman LPCC 701 [place], [place] [phone] Discharge Disposition: Discharged to home or self [...] LPCC - 09/09/2023 10:00 AM CST Dept: [facility] Type of Service: Group Therapy Provider/Group Automobile Body Repair Supervisor: Claire Workman LPCC Date of Service: 09/09/2023 [...] Total time spent on this visit, including cmobwkxo-lz-abubtye interaction, review of medical record, and documentation: 100 minutes. Patient consents to this service: Yes Group Description: Tuesday Connections group consists of a psychotherapy group with content from [place] of [employer]. Session Content of Today's Group: Topics [...] () Claire Workman LPCC, 09/09/2023 11:54 AM STRY LABORER documented in this encounter Plan of Treatment Upcoming Encounters Date Type Department Care Team Description 11/09/2023 4:30 PM FORESTRY LABORER [facility] [address] [address] Alfred Lambert, ROTARY ENVELOPE MACHINE OPERATOR, MIXING SUPERVISOR [address] [phone] Scheduled Discharge Disposition: Discharged to home or [...] Total Score: 7 08/22/20 23 11:05 AM FORESTRY LABORER PHQ-2 Depression Total Score: 2 08/22/20 23 11:05 AM FORESTRY LABORER documented as of this encounter
--- OUTSIDE RECORDS SUMMARY | 2023-11-04 21:53 | XMS_ITS | Encounter Summary ---
Author Name Unknown Organization [facility] Address 1 [place] [address] Phone Care Team Providers Care Export Specialist Name Role Phone Unavailable Primary Care Provider Unavailabl e Encounter Details Date Type Department Care Team Description 07/22/2023 10:00 AM CDT Telemedicine Psych Rehab [facility] [address] [place] [phone] Claire Workman LPCC 701 [place], [place] [phone] Discharge Disposition: Discharged to home or self [...] LPCC - 07/22/2023 10:00 AM CDT Dept: [facility] Type of Service: Group Therapy Provider/Group Duplex Trimmer: Claire Workman LPCC Date of Service: 07/22/2023 [...] of a psychotherapy group with content from [place] of [employer]. Session Content of Today's [...] Department Care Team Description 11/09/2023 4:30 PM [facility] Telemedicine Clinic [facility] Internal Medicine Clinics [address] [address] [address] Alfred Lambert, ROW BOSS, ARM MAKER [address] [address] Scheduled Discharge Disposition: Discharged to home or [...]
--- OUTSIDE RECORDS SUMMARY | 2023-11-04 21:53 | XMS_ITS | Encounter Summary ---
Author Name Unknown Organization [facility] Address [address] [place] [address] Phone Care Team Providers Care Independent Sales Representative Name Role Phone Unavailable Primary Care Provider Unavailabl e Reason for Visit * Prior Authorization (Routine) - Closed Specialty Diagnoses / Procedures Referred By Contac t Referred To Contact Psych Rehab Diagnoses Bipolar II disorder () Trauma and stressor-related disorder Procedures MOTHER BABY ENROLLMENT Jazmine Potter, [facility] [address] [place] [address] [address] Referral ID Status Reason Start Date Expiration Date Visits Re quested Visits Authorized [id number] Closed 05/09/2023 06/24/2023 105 105 Encounter Details Date Type Department Care Team Description 06/22/2023 12:30 PM CDT [facility] [address] [place] [phone] Karoline Benson MD 701 [facility] S1 860 [place], [place] [phone] Dh, Mother Baby Discharge Disposition: Discharged to [...] OTR/L - 06/22/2023 12:30 PM CDT Dept: [facility] Type of Service: Group Therapy Name of Group: Wellness Group Provider/Group Milling Machine Tender: Alisha Hardy OTR/L Date of Service: 06/22/2023 Start Time: 12:45 PM Stop Time: 1:30 PM Number of Group Members Present: 5 Location of Service: Face to Face at [facility] SMOKE ROOM OPERATOR SERVICES PROVIDED (if applicable): No Session [...] Department Care Team Description 11/09/2023 4:30 PM TAX SENIOR ASSOCIATE [facility] [address] [phone] Alfred Lambert, PRIMARY CARE NURSE, CUSTOMER SUPPLY COORDINATOR [address] [phone] Scheduled Discharge Disposition: Discharged to home or [...]
--- OUTSIDE RECORDS SUMMARY | 2023-11-04 21:53 | XMS_ITS | Encounter Summary ---
Author Name Unknown Organization [facility] Address [address] [place] [address] Phone Care Team Providers Care Die Storage Clerk Name Role Phone Unavailable Primary Care Provider Unavailabl e Reason for Visit * Reason Onset Date Comments Psych Medication Management 06/22/2023 Encounter Details Date Type Department Care Team Description 06/22/2023 11:00 AM CDT Psych Rehab [facility] [address] [phone] Karissa Sams MD [address] [place] [address] [phone] Psych Medication Management Discharge Disposition: Discharged to [...] [facility], [facility]iatry Visit Started the [facility] on: 05/09/23 (admitted to [facility] Psychiatry 06/08-06/15/23) Merry Rooney is a 23 y.o. mother of baby (Aidan born 05/03/23) and 2 year old son (Chuy). Referred by [facility] initially to the [facility]. Also admitted while she was in the program to [place], [place]) 05/24-05/30/23. Cultural Context: white, Scottish and [place] Pronouns: she/her/hers; Supports: [place] -- supportive Therapist: ; PCP: ; OB-HELICOPTER DISPATCHER: Antonio Ob; Research Chef: Feeding Method: mainly formula because milk supply [...] while she was in the program to [facility] ([place], [place]) 05/24- 05/30/23. Multiple, recent ED visits for physical sx of anxiety as well as SI - mainly to [place] ED (see 06/02/[address] Esposito for recent summary of ED courses). Admitted to [facility] Psychiatry 06/08-06/15/23) Diagnostic Impression(s) Bipolar II Disorder, current episode depressed, severe with previous psychotic symptoms PTSD and (Complex Developmental Trauma) Unspecified anxiety (intrusive thoughts) - R/O OCD Opioid and alcohol use disorders, by history Multiple closed head injuries and hx of seizure preeclampsia Assessment [place], caring, resilient 23 y.o. mother of 2 following a harrowing course with psychotic symptoms and possible preeclampsia leading to transfer to [facility] ICU. Longitudinal course consistent with Complex Developmental Trauma and bipolar spectrum leading to a psychiatric admission ( 05/24- to [facility]) and recent admission to 06/08-06/15/23 [facility]. Improved depression and no current suicidal ideation. [...] DBT, medication management appt next week at [facility]. Intervening History Last seen 06/20 by [...] PM) Psychiatric History Hospitalizations: multiple-most recent at [facility] 06/08-06/15/23, admitted at 16 for first time [...] when she was 4. Mother lived in [place]. 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 Legal: no had involvement with the legal system. The patient reports the following spiritual and/or cultural history: Scottish and [place]uan background Relationship to her partner/father/co-parent of the [...] LICSW - 06/22/2023 11:00 AM CDT Dept: [facility] Type of Service: Group Therapy Provider/Group Planer Feeder: Jazmine Potter LICSW Date of Service: 06/22/2023 Start Time: 11:15 AM Stop Time: 12:00 PM Number of Group Members Present: 4 Name of Group: Movement Location of Service: Face to Face at [facility] [place] CUSTOMER DEVELOPMENT MANAGER SERVICES PROVIDED (if applicable): No Session Content (Intervention) (including goal/intended outcome): Encouraged group members to participate in mind-body skills facilitated by [facility] Trauma-Informed Yoga providers. Trauma-sensitive mind-body skills and [...] to material presented and group members. Jazmine Potter LICSW, 06/22/2023 12:06 PM * Addendum Note - Karissa Sams MD - 06/22/2023 11:00 AM CDTAddended by: KARISSA SAMS on: 06/22/2023 08:29 PM Modules accepted: Orders documented in this encounter Plan of Treatment Upcoming Encounters Date Type Department Care Team Description 11/09/2023 4:30 PM [facility] [address] [place] [address] Alfred Lambert, MECHANICAL SYSTEMS DESIGNER, GUN WELDER [address] [address] Scheduled Discharge Disposition: Discharged to home or [...]
--- OUTSIDE RECORDS SUMMARY | 2023-11-04 21:53 | XMS_ITS | Encounter Summary ---
Author Name Unknown Organization [facility] Address [address] [place] [address] Phone Care Team Providers Care Correctional Counselor/Case Manager Name Role Phone Unavailable Primary Care Provider Unavailabl e Reason for Visit * Reason Onset Date Comments Mother Baby - Mental Health Outreach 09/07/2023 Encounter Details Date Type Department Care Team Description 09/07/2023 Telephone [facility] [address] [place] [address] Regina Romero MHW [address] [place] [address] Mother Baby - Mental Health Outreach Social [...] Lor Romero Mental Health Worker Mother-Baby Program FARMWORKER documented in this encounter Plan of Treatment Upcoming Encounters Date Type Department Care Team Description 11/09/2023 4:30 PM HOPS FARMWORKER [facility] [address] [address] Alfred Lambert, PHYSICAL EDUCATION SPECIALIST, ENVIRONMENTAL SCIENCES PROFESSOR [address] [place] [address] Scheduled Discharge Disposition: Discharged to home or [...] Total Score: 7 08/22/20 23 11:05 AM HOPS FARMWORKER PHQ-2 Depression Total Score: 2 08/22/20 23 11:05 AM HOPS FARMWORKER documented as of this encounter
--- OUTSIDE RECORDS SUMMARY | 2023-11-04 21:53 | XMS_ITS | Encounter Summary ---
Author Name Unknown Organization [facility] Address [address] [facility] [place] [address] Phone Care Team Providers Care Pl Sql Programmer Name Role Phone Unavailable Primary Care Provider Unavailabl e Reason for Visit * Reason Onset Date Comments Mother Baby - Mental Health Outreach 07/11/2023 Encounter Details Date Type Department Care Team Description 07/11/2023 Telephone [facility] [address] [place], [place] [phone] Claire Workman LPCC [address] [place], [place] [phone] Mother Baby - Mental Health Outreach Social [...] Department Care Team Description 11/09/2023 4:30 PM FIELD SALES SPECIALIST [facility] [address] [address] Alfred Lambert, CIVIL SERVICE CLERK, OVER SHORT AND DAMAGE CLERK [address] [address] Scheduled Discharge Disposition: Discharged to home or self care (routine discharge) documented as of this encounter Visit Diagnoses Not on filedocumented in this encounter Additional Health Concerns Assessment Noted Time PHQ-9 Depression Total Score: 19 023 4:26 PM CDT PHQ-2 Depression Total Score: 3 06/02/20 23 4:26 PM CDT documented as of this encounter
--- OUTSIDE RECORDS SUMMARY | 2023-11-04 21:53 | XMS_ITS | Encounter Summary ---
Author Name Unknown Organization [facility] Address [address] [place] [address] Phone Care Team Providers Care Android Ios Developer Name Role Phone Unavailable Primary Care Provider Unavailabl e Reason for Visit * Prior Authorization (Routine) - Closed Specialty Diagnoses / Procedures Referred By Contac t Referred To Contact Psych Rehab Diagnoses Bipolar II disorder () Trauma and stressor-related disorder Procedures MOTHER BABY ENROLLMENT Jazmine Potter, [facility] [address] [place] [address] [address] Referral ID Status Reason Start Date Expiration Date Visits Re quested Visits Authorized [id number] Closed 05/09/2023 06/24/2023 105 105 Encounter Details Date Type Department Care Team Description 06/23/2023 9:30 AM CDT [facility] [address] [place] [phone] Karoline Benson MD 701 [facility] S1 [address] [place], [place] [address] Dh, Mother Baby Discharge Disposition: Discharged to [...] LPCC - 06/23/2023 9:30 AM CDT Dept: [facility] Type of Service: Group Therapy Name of Group: Psychoeducation/Skills Group Provider/Group Marketing Outreach Coordinator: Claire Workman LPCC Date of Service: 06/23/2023 Start Time: 9:30 AM Stop Time: 10:15 AM Number of Group Members Present: 4 Location of Service: Face to Face at [facility] Session Content (Intervention): Welcomed any new patients [...] Department Care Team Description 11/09/2023 4:30 PM ORTHOPEDIC TECHNICIAN [facility] [address] [address] Alfred Lambert, FREIGHT SEPARATOR, LABORER [employer] [address] [address] Scheduled Discharge Disposition: Discharged to home or [...]
--- OUTSIDE RECORDS SUMMARY | 2023-11-04 21:53 | XMS_ITS | Encounter Summary ---
Author Name Unknown Organization [facility] Address [address] [place] [address] Phone Care Team Providers Care Accounting Administrator Name Role Phone Unavailable Primary Care Provider Unavailabl e Encounter Details Date Type Department Care Team Description 07/15/2023 10:00 AM CDT Telemedicine Psych Rehab [facility] [address] [place] [phone] Claire Workman LPCC 701 [place], [place] [phone] Discharge Disposition: Discharged to home or self [...] LPCC - 07/15/2023 10:00 AM CDT Dept: [facility] Type of Service: Group Therapy Provider/Group Internet Merchant: Claire Workman LPCC Date of Service: 07/15/2023 Start Time: 10:00 AM Stop Time: 11:30 AM Number of Group Members Present: 5 Name of Group: Tuesday Connections Group Frequency: Weekly Location of Service: Hybrid Group (some participants face to face and some some on video): If this option is selected, telemed statement needs to be added for those who were on video. Telemedicine: Ambric Video Visit: This telemedicine visit is conducted by audio and video technology between thepatient and provider. Informed consent was provided during e-check in and signed by patient. Patient was offered opportunity to ask any questions. Patient's Physical Location: Home Provider's Physical Location: Onsite at [facility] Participants in this Telemedicine Visit other than the patient/provided included: Group members This visit started at: 10 AM and concluded at: 11:30 AM. Group Description: Tuesday Connections group consists of a psychotherapy group with content from [place] [employer] Parent[employer]. Session Content of Today's [...] Department Care Team Description 11/09/2023 4:30 PM EXCHANGE UNDERWRITING CONSULTANT [facility] [address] [address] Alfred Lambert, FOREST FIRE OFFICER, EDUCATION RESEARCH ANALYST [address] [address] Scheduled Discharge Disposition: Discharged to home or [...]
--- OUTSIDE RECORDS SUMMARY | 2023-11-04 21:54 | XMS_ITS | Encounter Summary ---
Author Name Unknown Organization [facility] Address [address] [place] [address] Phone Care Team Providers Care Curriculum Consultant Name Role Phone Unavailable Primary Care Provider Unavailabl e Reason for Visit * Reason Comments Psych Medication Management Encounter Details Date Type Department Care Team Description 06/16/2023 10:00 AM CDT Psych Rehab [facility] [address] [place], [place] [phone] Karoline Benson MD 701 [facility] S1 [address]60 [place], [place] [phone] Psych Medication Management Discharge Disposition: Discharged to [...] original note were not included. Mother Baby [facility], Psychiatry Visit Started the [facility] on: 05/09/23 (ad[facility] to [facility] Psych[facility]ry 06/08-06/15/23) Merry Rooney is a 23 y.o. mother of baby (Aidan born 05/03/23) and 2 year old son (Chuy). Referred by [facility] initially to the [facility]. Also admitted while she was in the program to [facility] ([place], [place]) 05/24-05/30/23. Cultural Context: white, Colombian and Faroese Pronouns: she/her/hers; Supports: Espinosa -- supportive Therapist: ; PCP: ; OB-SENIOR QUALITY ASSURANCE SPECIALIST: Antonio Ob; Access Clinician: Feeding Method: mainly formula because milk supply [...] while she was in the program to [facility] ([place], [place]) 05/24- 05/30/23. Multiple, recent ED visits for physical sx of anxiety as well as SI - mainly to [place] ED (see 06/02/[address] Esposito for recent summary of ED courses). Admitted to [facility] Psychiatry 06/08-06/15/23) Diagnostic Impression(s) Bipolar II Disorder, current episode depressed, severe with psychotic symptoms PTSD and (Complex Developmental Trauma) Unspecified anxiety (intrusive thoughts) Opioid and alcohol use disorders, by history Multiple closed head injuries and hx of seizure preeclampsia Assessment [place], caring, resilient 23 y.o. mother of 2 following a harrowing course with psychotic symptoms and possible preeclampsia leading to transfer to [facility] ICU. Longitudinal course consistent with Complex Developmental Trauma and bipolar spectrum leading to a psychiatric admission ( 05/24- to [facility]) and recent admission to 06/08-06/15/23 [facility]. Improved depression and no current suicidal ideation. [...] Discharge planning. Intervening History Recent admission to [facility] Psychiatry reviewed -- 06/08-06/15/23 Today -I feel [...] 150.0 ng/mL Final Comment: Test Performed by: [facility] [address] [place] [id number] Transferrin 06/12/2023 293 200 - 360 mg/dL [...] when she was 4. Mother lived in [place]. 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 Legal: no had involvement with the legal system. The patient reports the following spiritual and/or cultural history: Colombian and Faroese background Relationship to her partner/father/co-parent [...] Department Care Team Description 11/09/2023 4:30 PM UPPER LINING CEMENTER [facility] Clinics [address] [place] [phone] Alfred Lambert, STRAIGHT RULING MACHINE OPERATOR, CHIEF FUNDRAISING OFFICER [address] [address] Scheduled Discharge Disposition: Discharged to home or self care (routine discharge) documented as of this encounter Visit Diagnoses Not on filedocumented in this encounter Additional Health Concerns Assessment Noted Time PHQ-9 Depression Total Score: 19 023 4:26 PM CDT PHQ-2 Depression Total Score: 3 06/02/20 23 4:26 PM CDT documented as of this encounter
--- OUTSIDE RECORDS SUMMARY | 2023-11-04 21:54 | XMS_ITS | Encounter Summary ---
Author Name Unknown Organization [facility] Address [address] [place] [address] Phone Care Team Providers Care Cell Room Supervisor Name Role Phone Unavailable Primary Care Provider Unavailabl e Reason for Visit * Reason Comments Mother Baby - Individual Psychotherapy * Prior Authorization (Routine) - Closed Specialty Diagnoses / Procedures Referred By Bernardo t Referred To Contact Psych Rehab Diagnoses Bipolar II disorder () Trauma and stressor-related disorder Procedures MOTHER BABY ENROLLMENT Jazmine Potter, [facility] [address] [place] [address] [address] Referral ID Status Reason Start Date Expiration Date Visits Re quested Visits Authorized [id number] Closed 05/09/2023 06/24/2023 105 105 Encounter Details Date Type Department Care Team Description 06/20/2023 2:30 PM CDT Psych Rehab [facility] [address] [place] [address] [phone] Claire Workman, [facility] [address] [place], [place] [phone] Mother Baby - Individual Psychotherapy Discharge Disposition: [...] encounter Progress Notes * Ji Claire Garcia, [facility] - 06/20/2023 2:30 PM CDT [facility] Progress Note Date of Service: 06/20/2023 Start Time: 2:30 pm Stop Time: 3 pm Location of Visit: Face to Face at [facility] Participants in this Visit other than the [...] plan and plan for further services, including [facility] Psychotherapy outpatient services. Patient Response to [...] only if needed based on clinical judgment (38:25 PM) Stage of change: Preparation Progress Toward Treatment Plan Goals: Progressing. Treatment goal addressed: To increase functioning by decreasing mental health symptoms that impact the ability to make safe choices Objective targeted: Decrease frequency/intensity/duration of worry Plan: 1. Psychotherapy: Continue with this provider in , then transition to [facility] Psychotherapy provider; therapy homework = n/a 2. Psychiatric care: Continue with providers, then transition to [facility] Psychotherapy prescriber 3. Utilize emergency resources (APS, COPE) if needed; Safety Plan created and in effect Claire Workman LPCC, 06/20/23, 3:14 PM documented in this encounter Plan of Treatment Upcoming Encounters Date Type Department Care Team Description 11/09/2023 4:30 PM SOUND EDITOR [facility] Clinics [address] [address] Alfred Lambert, INFECTION CONTROL MANAGER, NEWSPAPER DELIVERY COUNSELOR [address] [address] Scheduled Discharge Disposition: Discharged to home or [...]
--- OUTSIDE RECORDS SUMMARY | 2023-11-04 21:54 | XMS_ITS | Encounter Summary ---
Author Name Unknown Organization [facility] Address [address] [place] [address] Phone Care Team Providers Care Qc Analyst Name Role Phone Unavailable Primary Care Provider Unavailabl e Reason for Visit * Prior Authorization (Routine) - Closed Specialty Diagnoses / Procedures Referred By Contac t Referred To Contact Psych Rehab Diagnoses Bipolar II disorder () Trauma and stressor-related disorder Procedures MOTHER BABY ENROLLMENT Jazmine Potter, [facility] [address] [place] [address] [address] Referral ID Status Reason Start Date Expiration Date Visits Re quested Visits Authorized [id number] Closed 05/09/2023 06/24/2023 105 105 Encounter Details Date Type Department Care Team Description 06/20/2023 11:00 AM CDT [facility] [address] [place] [address] [phone] Karoline Benson MD 701 [facility] S1 [address]60 [place], [place] [phone] Dh, Mother Baby Discharge Disposition: Discharged to [...] LPCC - 06/20/2023 11:00 AM CDT Dept: [facility] Type of Service: Group Therapy Name of Group: Psychoeducation/Skills Group Provider/Group Bioinformatics Software Engineer: Claire Workman LPCC Date of Service: 06/20/2023 Start Time: 11:15 AM Stop Time: 12:00 PM Number of Group Members Present: 3 Location of Service: Face to Face at [facility] Session Content (Intervention): The purpose of this group was to provide education through information-sharing and facilitated group discussion. Handouts were provided and covered in detail. Skills taught today included: Parenting Education (describe [place] of [employer] Chapter 7) The patient???s response [...] Department Care Team Description 11/09/2023 4:30 PM REED POLISHER [facility] Internal [facility] Clinics [address] [place] [address] Alfred Lambert, EDGER SAW OPERATOR, CUTTING TOOL SHARPENER [address] [address] Scheduled Discharge Disposition: Discharged to home or [...]
--- OUTSIDE RECORDS SUMMARY | 2023-11-04 21:54 | XMS_ITS | Encounter Summary ---
Author Name Unknown Organization [facility] Address [address] [place] [address] Phone Care Team Providers Care Shift Lab Technician Name Role Phone Unavailable Primary Care Provider Unavailabl e Reason for Visit * Prior Authorization (Routine) - Closed Specialty Diagnoses / Procedures Referred By Contac t Referred To Contact Psych Rehab Diagnoses Bipolar II disorder () Trauma and stressor-related disorder Procedures MOTHER BABY ENROLLMENT Jazmine Potter, [facility] [address] [place] [address] [address] Referral ID Status Reason Start Date Expiration Date Visits Re quested Visits Authorized [id number] Closed 05/09/2023 06/24/2023 105 105 Encounter Details Date Type Department Care Team Description 06/07/2023 1:45 PM CDT Psych Rehab [facility] [address] [place] [phone] Dh, Mother Baby Discharge Disposition: Discharged to [...] LPCC - 06/07/2023 1:45 PM CDT Dept: [facility] Type of Service: Group Therapy Name of Group: Psychoeducation/Skills Group Provider/Group Orthopedic Specialist: Claire Workman LPCC Date of Service: 06/07/2023 Start Time: 1:45 PM Stop Time: 2:30 PM Number of Group Members Present: 7 Location of Service: Face to Face at [facility] Session Content (Intervention): The purpose of this group was to provide education through information-sharing and facilitated group discussion. Handouts were provided and covered in detail. Skills taught today included: Parenting Education (describe [place] of Security Chapter 5) The patient???s response [...] Department Care Team Description 11/09/2023 4:30 PM CAKE PRESS OPERATOR [facility] Clin[facility] [address] [address] Alfred Lambert, SCALE BALANCER, CMS EXPERT [address] [address] Scheduled Discharge Disposition: Discharged to home or [...]
--- OUTSIDE RECORDS SUMMARY | 2023-11-04 21:54 | XMS_ITS | Encounter Summary ---
Author Name Unknown Organization [facility] Address [address] [place] [id number] Phone Care Team Providers Care Sole Painter Name Role Phone Unavailable Primary Care Provider Unavailabl e Reason for Visit * Reason Onset Date Comments Psych Medication Management 06/08/2023 Encounter Details Date Type Department Care Team Description 06/08/2023 11:30 AM CDT Psych Rehab [facility] Family [facility] [address] [place] [address] [phone] Karissa Mejia MD [address] [place] [id number] [phone] Psych Medication Management Discharge Disposition: Discharged to [...] note were not included. Mother Baby [facility], Psychiatry Visit Started the [facility] on: 05/09/23 Merry Rooney is a 23 y.o. mother of baby (Aidan born 05/03/23) and 2 year old son (Chuy). Referred by [facility] to [facility]. Also admitted while she was in the program to [facility] ([place], [place]) 05/24-05/30/23. Cultural Context: white, Slovak and [place] Pronouns: she/her/hers; Supports: [place] -- supportive Therapist: ; PCP: ; OB-MEDIA ASSOCIATE: Antonio Ob; Electric Motorman: Feeding Method: mainly formula because milk supply [...] while she was in the program to [facility] ([place], [place]) 05/24- 05/30/23. Multiple, recent ED visits for physical sx of anxiety as well as SI - mainly to [facility] (see 06/02/[address] Esposito for recent summary of ED courses). Diagnostic Impression(s) Bipolar II Disorder, current episode depressed, severe with psychotic symptoms PTSD and (Complex Developmental Trauma) Unspecified anxiety (intrusive thoughts) Opioid and alcohol use disorders, by history Multiple closed head injuries and hx of seizure preeclampsia Assessment [place], caring, resilient 23 y.o. mother of 2 following a harrowing course with psychotic symptoms and possible preeclampsia leading to transfer to [facility]. Longitudinal course consistent with Complex Developmental Trauma and bipolar spectrum. Recent psychiatric admission (05/24- ) to [facility] and multiple, subsequent visits to outside [...] when she was 4. Mother lived in [place]. 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 Legal: no had involvement with the legal system. The patient reports the following spiritual and/or cultural history: Slovak and [place] background Relationship to her partner/father/co-parent of the [...] Department Care Team Description 11/09/2023 4:30 PM [employer]PER[employer]ENT [employer] [address] [id number] Alfred Lambert, SOLAR PROJECT COORDINATION SPECIALIST, SMOKE JUMPER SUPERVISOR [address] [id number] Scheduled Discharge Disposition: Discharged to home or [...]
--- OUTSIDE RECORDS SUMMARY | 2023-11-04 21:54 | XMS_ITS | Encounter Summary ---
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 she did not have a pants cutter. She also doesn't feel comfortable pumping in [...] visit tomorrow and will bring her phone pants cutter. LC talked to nursing staff. Nurse says [...] 3 hours -Drinking and eating more -Getting pants cutter for phone to charge for pictures and [...] to page if you have questions. ++++++++++++++++++++++++++++++++++++++++++++++++++++++++++++++++ CAMPUS CHAPLAIN PRESENT? NO LANGUAGE: Zambian [50] MEDICATIONS: No current facility-administered medications on [...] Counseling/Coordination/Education time 20 minutes. ALEXANDER Jin Services [phone] (MILK) * Nursing Assessment - Micha Yan [...] after she had been seen at the [facility] due to increased suicidal [...] Department Care Team Description 11/09/2023 4:30 PM WORKDAY CONSULTANT [facility] [address] [address] Alfred Lambert, RESEARCH WORKER KITCHEN, PROMOS EXECUTIVE PRODUCER [address] [address] Scheduled Discharge Disposition: Discharged to home or self care (routine discharge) documented as of this encounter Procedures Procedure [...] CDT) Iron 32(L) 35 - 145 mcg/dL [facility] Blood 06/12/2023 8:27 AM CDT 06/12/2023 8:50 AM CDT Mervin Middleton MD LABORATORY [facility] [place] [address] * (ABNORMAL) TRANSFERRIN (INCLUDES TIBC) (06/12/2023 8:27 AM CDT) Transferrin 293 200 - 360 mg/dL [facility] IBC 437 298 - 536 mcg/dL [facility] Iron Saturation Percent 7(L) 20 - 50 % [facility] Blood 06/12/2023 8:27 AM CDT 06/12/2023 8:50 AM CDT Mervin Middleton MD LABORATORY [facility] [address] [address] * FERRITIN (06/12/2023 8:27 AM CDT) Pathologist [facility] Ferritin 18.9 13.0 - 150.0 ng/mL [facility] Comment: Test Performed by: [facility] [address] [place] [address] Blood 06/12/2023 8:27 AM CDT 06/12/2023 8:50 AM CDT Mervin Middleton MD LABORATORY Performing Organization Address City/[facility]/ZIP Co de Phone Number [facility] [address] [address] * (ABNORMAL) PANEL LIPID (06/11/2023 8:44 AM CDT) HDL 46(L) >=50 mg/dL [facility] Comment: Interpretive Data Normal > 40 Male > 50 Female Cholesterol 152 <=200 mg/dL [facility] Comment: Interpretive Data <200 Desirable 200-239 Borderline high >=240 High Triglyceride 104 <=150 mg/dL [facility] Comment: Interpretive Data <150 Normal 150-199 Borderline high 200-499 High >=500 Very high Calc LDL 85 <=100 mg/dL [facility] Comment: Interpretive Data <100 Desirable 100-129 Above desirable 130-159 Borderline high 160-189 High >=190 Very high Non-HDL Cholesterol Calculated 106 <=130 mg/dL [facility] Comment: Interpretive Data <130 Desirable 130-159 Above desirable 160-189 Borderline high 190-219 High >=220 Very high Blood 06/11/2023 8:44 AM CDT 06/11/2023 9:10 AM CDT Narrative [facility] - 06/11/2023 9:35 AM CDT Fasting: Yes Mervin Middleton MD LABORATORY [facility] [address] [address] * CT HEAD NO IV CONTRAST (06/10/2023 5:34 PM CDT) Anatomical Region Laterality Modality Skull Computed Tomogra phy 06/10/2023 6:04 PM CDT Impressions 06/10/2023 11:31 PM CDT Impression: No acute intracranial abnormality. I have personally reviewed the image(s) and initial interpretation, and I agree with the findings as documented by the resident/fellow. Reading Radiologist: Ino Espinosa Reading Resident: Mervin Hawley Narrative 06/10/2023 11:[address] without [...] recently (April 2023 complicated by eclampsia); increasein CMUMINS, dizziness, memory loss; seizure activity after giving [...] Radiologist: Ino Espinosa Reading Resident: Mervin Hawley Tiera Talbert PA-C RAD [...] 1245, Until Discontinued 1317 (Given - Provider: Biun Street RN) busPIRone (BUSPAR) tablet 7.5 mg 7.5 mg, Oral, BID, First dose on Tue06/08/23 at 2000, Until Discontinued 0824 (Given - Provider: Humera Christiansen RN)1920 (Given - Provider: Humera Christiansen RN) 09 (Given - Provider: Binu Street RN)2005 (Given - Provider: Amelia Benavides RN) 09 (Given - Provider: rEyn Romero RN) DC MED REC REVIEW BY PHARMACY(Linked Group 1) Discharge Date: 06/15/2023, Discharge Location: Home, Anticipated Discharge Time: 10 am - 2 pm, Discharge Medication Orders: DC Med Orders Final, Does not apply, PROTOCOL, Starting on Tue06/15/23 at 0921, Until Tue06/15/23 at 1352 ferrous sulfate tablet 325 mg 325 mg, Oral, QOD, First dose on Tue06/11/23 at 0800, Until Discontinued 0824 (Given - Provider: Humera Christiansen RN) 09 (Given - Provider: Eryn Romero RN) lamoTRIgine (LaMICtal) tablet 25 mg (CANCELED) 25 mg, Oral, DAILY, First dose on Tue06/09/23 at 0800, Until Discontinued 0824 (Given - Provider: Humera Christiansen RN) 903 (Given - Provider: Binu Street RN) lamoTRIgine (LaMICtal) tablet 50 mg 50 mg, Oral, DAILY, First dose (after last modification) on Tue06/15/23 at 0800, Until Discontinued 09 (Given - Provider: Eryn Romero RN) tablet 1 tablet 1 tablet, Oral, BEDTIME, First dose on Tue06/10/23 at 2000, Until Discontinued 192 (Given - Provider: Humera Christiansen RN) 2005 (Given - Provider: Amelia Benavides RN) propranolol (INDERAL) tablet 10 mg 10 mg, Oral, BID, First dose on Tue06/08/23 at 2000, Until Discontinued 0824 (Given - Provider: Humera Christiansen RN)192 (Given - Provider: Humera Christiansen RN) 09 (Given - Provider: Binu Street RN)2007 (Refused - Provider: Amelia Benavides RN) 09 (Refused - Provider: Eryn Romero RN - [...]
--- OUTSIDE RECORDS SUMMARY | 2023-11-04 21:54 | XMS_ITS | Encounter Summary ---
Author Name Unknown Organization [facility] Address [address] [place] [address] Phone Care Team Providers Care Grain Ii Farmworker Name Role Phone Unavailable Primary Care Provider Unavailabl e Reason for Visit * Prior Authorization (Routine) - Closed Specialty Diagnoses / Procedures Referred By Contac t Referred To Contact Psych Rehab Diagnoses Bipolar II disorder () Trauma and stressor-related disorder Procedures MOTHER BABY ENROLLMENT Jazmine Potter, [facility] [address] [place] [address] [address] Referral ID Status Reason Start Date Expiration Date Visits Re quested Visits Authorized [id number] Closed 05/09/2023 06/24/2023 105 105 Encounter Details Date Type Department Care Team Description 06/16/2023 11:00 AM CDT [facility] [address] [place] [phone] Karoline Benson MD 701 [facility] S[address] [place], [place] [address] Dh, Mother Baby Discharge Disposition: Discharged to [...] PT - 06/16/2023 11:00 AM CDT Dept: [facility] Type of Service: Group Therapy Provider/Group Bus Matron: Sara Cunha PT Date of Service: 06/16/2023 Start Time: 11:00 AM Stop Time: 12:00 PM Number of Group Members Present: 5 Name of Group: Movement Location of Service: Face to Face at a [facility] MASTER MECHANIC SERVICES PROVIDED (if applicable): No Session Content (Intervention) (including goal/intended outcome): Mindful Movement. Encouraged group members to participate in mind-body skills facilitated by [facility] Trauma-Informed Yoga providers. Trauma-sensitive mind-body skills and [...] Department Care Team Description 11/09/2023 4:30 PM FOOD TECHNOLOGY TEACHER [facility] [address] [address] Alfred Lambert, LINE UP MACHINE OPERATOR, CATERING DRIVER [address] [address] Scheduled Discharge Disposition: Discharged to home or [...]
--- OUTSIDE RECORDS SUMMARY | 2023-11-04 21:54 | XMS_ITS | Encounter Summary ---
Author Name Unknown Organization [facility] Address [address] [place] [address] Phone Care Team Providers Care Roll Forger Name Role Phone Unavailable Primary Care Provider Unavailabl e Reason for Visit * Reason Onset Date Comments Mother Baby Documentation 06/08/2023 Encounter Details Date Type Department Care Team Description 06/08/2023 Telephone [facility] Family [facility] [address] [place], [place] [phone] Claire Workman [facility] 701 [facility] [place], [place] [phone] Mother Baby Documentation Social History Tobacco Use [...] Department Care Team Description 11/09/2023 4:30 PM [facility] Clinics [address] [place] [address] [phone] Alfred Lambert, COMMUNITY INTEGRATION SPECIALIST, TOWER EXCAVATOR OPERATOR [address] [address] Scheduled Discharge Disposition: Discharged to home or self care (routine discharge) documented as of this encounter Visit Diagnoses Not on filedocumented in this encounter Additional Health Concerns Assessment Noted Time PHQ-9 Depression Total Score: 19 023 4:26 PM CDT PHQ-2 Depression Total Score: 3 06/02/20 23 4:26 PM CDT documented as of this encounter
--- OUTSIDE RECORDS SUMMARY | 2023-11-04 21:54 | XMS_ITS | Encounter Summary ---
Author Name Unknown Organization [facility] Address [address] [place] [address] Phone Care Team Providers Care Actuary Manager Name Role Phone Unavailable Primary Care Provider Unavailabl e Reason for Visit * Reason Comments Mother Baby - Family Session Encounter Details Date Type Department Care Team Description 06/07/2023 12:15 PM CDT Telemedicine Psych Rehab [facility] [address] [place], [place] [address] Claire Workman, [facility] 701 [place], [place] [phone] Karoline Benson MD 701 [facility] S1 [address]60 [place], [place] [phone] Mother Baby - Family Session Discharge Disposition: [...] this encounter Progress Notes * Claire Workman, [facility] - 06/07/2023 12:15 PM CDT [facility] Progress Note Date of Service: 06/07/2023 Start Time: 12:15 pm Stop Time: 12:52 pm Location of Visit: Hybrid (pt and infant daughter in person, pt's present via telehealth) Telemedicine: Pfenexhart Video Visit: This telemedicine visit is conducted by audio and video technology between thepatient and provider. Informed consent was provided during e-check in and signed by patient. Patient was offered opportunity to ask any questions. Patient's Physical Location: Home Provider's Physical Location: Onsite at [facility] Participants in this Telemedicine Visit [...] Department Care Team Description 11/09/2023 4:30 PM ENAMEL BURNER [facility] Clinics [address] [address] Alfred Lambert, EMPLOYMENT CONSULTANT, CHANNEL MARKETING SPECIALIST [address] [address] Scheduled Discharge Disposition: Discharged to home or [...]
--- OUTSIDE RECORDS SUMMARY | 2023-11-04 21:54 | XMS_ITS | Encounter Summary ---
Author Name Unknown Organization [facility] Address [address] [place] [address] Phone Care Team Providers Care Packaging Sales Consultant Name Role Phone Unavailable Primary Care [...] Department Care Team Description 11/09/2023 4:30 PM SYSTEM SPECIALIST [facility] [address] [address] Alfred Lambert, SENIOR SOFTWARE ENGINEER ANALYTICS, IRISH MOSS GATHERER [address] [address] Scheduled Discharge Disposition: Discharged to home or [...]
--- OUTSIDE RECORDS SUMMARY | 2023-11-04 21:54 | XMS_ITS | Encounter Summary ---
Author Name Unknown Organization [facility] Address [address] [place] [address] Phone Care Team Providers Care Banking Services Officer Name Role Phone Unavailable Primary Care Provider Unavailabl e Reason for Visit * Prior Authorization (Routine) - Closed Specialty Diagnoses / Procedures Referred By Contac t Referred To Contact Psych Rehab Diagnoses Bipolar II disorder () Trauma and stressor-related disorder Procedures MOTHER BABY ENROLLMENT Jazmine Potter, [facility] [address] [place] [address] [address] Referral ID Status Reason Start Date Expiration Date Visits Re quested Visits Authorized [id number] Closed 05/09/2023 06/24/2023 105 105 Encounter Details Date Type Department Care Team Description 06/16/2023 1:45 PM CDT [facility] [address] [place] [phone] Karoline Benson MD 701 [facility] S1 [address]60 [place], [place] [phone] Dh, Mother Baby Discharge Disposition: Discharged to [...] LPCC - 06/16/2023 1:45 PM CDT Dept: [facility] Family [facility] Type of Service: Group Therapy Name of Group: Psychoeducation/Skills Group Provider/Group Senior Product Development Scientist: Claire Workman LPCC Date of Service: 06/16/2023 Start Time: 1:45 PM Stop Time: 2:30 PM Number of Group Members Present: 6 Location of Service: Face to Face at [facility] Session Content (Intervention): The purpose of [...] Department Care Team Description 11/09/2023 4:30 PM DYE WEIGHER [facility] Clin[facility] [address] [address] Alfrde Lambert, DUMP OPERATOR, TAPER OPERATOR [address] [address] Scheduled Discharge Disposition: Discharged to home or [...]
--- OUTSIDE RECORDS SUMMARY | 2023-11-04 21:54 | XMS_ITS | Encounter Summary ---
Author Name Unknown Organization [facility] Address [address] [place] [address] Phone Care Team Providers Care Resource Development Manager Name Role Phone Unavailable Primary Care Provider Unavailabl e Reason for Visit * Reason Comments Psych Medication Management Encounter Details Date Type Department Care Team Description 06/20/2023 10:00 AM CDT Psych Rehab [facility] 701 [place], [place] [address] Karoline Benson MD 701 [facility] S1 [address]60 [place], [place] [address] Psych Medication Management Discharge Disposition: Discharged to [...] [facility], Psychiatry Visit Started the [facility] on: 05/09/23 (admitted to [facility] 06/08-06/15/23) Merry Rooney is a 23 y.o. mother of baby (Aidan born 05/03/23) and 2 year old son (Chuy). Referred by [facility] inpatient initially to the [facility]. Also admitted while she was in the program to [facility] ([place], [place]) 05/24-05/30/23. Cultural Context: white, Swedish and Citizen [place] Pronouns: she/her/hers; Supports: Espinosa -- supportive Therapist: ; PCP: ; OB-FREIGHT LOADER: Antonio Ob; Instant Printer Operator: Feeding Method: mainly formula because milk [...] while she was in the program to [facility] ([place], [place]) 05/24- 05/30/23. Multiple, recent ED visits for physical sx of anxiety as well as SI - mainly to [place] ED (see 06/02/[address] Esposito for recent summary of ED courses). Admitted to [facility] 06/08-06/15/23) Diagnostic Impression(s) Bipolar II Disorder, current episode depressed, severe with psychotic symptoms PTSD and (Complex Developmental Trauma) Unspecified anxiety (intrusive thoughts) Opioid and alcohol use disorders, by history Multiple closed head injuries and hx of seizure preeclampsia Assessment [place], caring, resilient 23 y.o. mother of 2 following a harrowing course with psychotic symptoms and possible preeclampsia leading to transfer to [facility] ICU. Longitudinal course consistent with Complex Developmental Trauma and bipolar spectrum leading to a psychiatric admission ( 05/24- to [facility]) and recent admission to 06/08-06/15/23 [facility]. Improved depression and no current suicidal ideation. [...] Discharge planning. Intervening History Recent admission to [facility] Psychiatry reviewed -- 06/08-06/15/23 Today -Yesterday stopped [...] 150.0 ng/mL Final Comment: Test Performed by: [facility] [address] [place] [id number] Transferrin 06/12/2023 293 200 - 360 mg/dL [...] when she was 4. Mother lived in [place]. 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 Legal: no had involvement with the legal system. The patient reports the following spiritual and/or cultural history: Swedish and Citizen [place] background Relationship to her partner/father/co-parent of the [...] Department Care Team Description 11/09/2023 4:30 PM CURING OVEN TENDER [facility] [address] [address] Alfred Lambert, BEAD WORKER SEWING, END FRAZER [address] [address] Scheduled Discharge Disposition: Discharged to home or self care (routine discharge) documented as of this encounter Visit Diagnoses Not on filedocumented in this encounter Additional Health Concerns Assessment Noted Time PHQ-9 Depression Total Score: 19 023 4:26 PM CDT PHQ-2 Depression Total Score: 3 06/02/20 23 4:26 PM CDT documented as of this encounter
--- OUTSIDE RECORDS SUMMARY | 2023-11-04 21:54 | XMS_ITS | Encounter Summary ---
Author Name Unknown Organization [facility] Address [address] [place] [address] Phone Care Team Providers Care Chairman President And Chief Executive Officer Name Role Phone Unavailable Primary Care Provider Unavailabl e Reason for Visit * Prior Authorization (Routine) - Closed Specialty Diagnoses / Procedures Referred By Contac t Referred To Contact Psych Rehab Diagnoses Bipolar II disorder () Trauma and stressor-related disorder Procedures MOTHER BABY ENROLLMENT Jazmine Potter, [facility] [address] [place] [address] [address] Referral ID Status Reason Start Date Expiration Date Visits Re quested Visits Authorized [id number] Closed 05/09/2023 06/24/2023 105 105 Encounter Details Date Type Department Care Team Description 06/20/2023 12:30 PM CDT [facility] [address] [place] [phone] Karoline Benson MD 701 [facility] S1 [address]60 [place], [place] [phone] Dh, Mother Baby Discharge Disposition: Discharged to [...] OTR/L - 06/20/2023 12:30 PM CDT Dept: [facility] Type of Service: Group Therapy Name of Group: Wellness Group Provider/Group Travel Agent: Alisha Hardy OTR/L Date of Service: 06/20/2023 Start Time: 12:45 PM Stop Time: 1:30 PM Number of Group Members Present: 4 Location of Service: Face to Face at [facility] GLOBAL SAFETY OFFICER SERVICES PROVIDED (if applicable): No Session [...] self-care activity for the evening. Alisha Hardy OTR/L, 06/20/2023 3:04 PM documented in this encounter Plan of Treatment Upcoming Encounters Date Type Department Care Team Description 11/09/2023 4:30 PM SERVICE ORDER EXPEDITER [facility] [address] [address] Alfred Lambert, GUARD IMMIGRATION, TRANSMITTER SUPERVISOR [address] [phone] Scheduled Discharge Disposition: Discharged to home or [...]
--- OUTSIDE RECORDS SUMMARY | 2023-11-04 21:54 | XMS_ITS | Encounter Summary ---
Author Name Unknown Organization [facility] Address [address] [facility] [place] [address] Phone Care Team Providers Care Injection Molding Supervisor Name Role Phone Unavailable Primary Care Provider Unavailabl e Reason for Visit * Reason Comments Mother Baby - Family Session * Auth/Cert (Routine) Specialty Diagnoses / Procedures Referred By Contac t Referred To Contact PSYCHIATRY Diagnoses Bipolar II disorder () PTSD (post-traumatic stress disorder) Suicidal ideation Anxiety disorder, unspecified type Ildefonso Aviles MD 701 [place] [address] Psychiatry 3 Inpt (B5) 701 [facility] B5.360 [place] [address] Referral ID Status Reason Start Date Expiration Date Visits Re quested Visits Authorized [id number] 1 1 Encounter Details Date Type Department Care Team Description 06/15/2023 3:30 PM CDT Telemedicine Psych Rehab [facility] 701 [place], [place] [phone] Noy Chen, CHEMICAL LABORATORY SCIENTIST 701 [facility] [place] [place], [place] [phone] Mother Baby - Family Session Discharge Disposition: [...] this encounter Progress Notes * Noy Chen, CHEMICAL LABORATORY SCIENTIST - 06/15/2023 3:30 PM CDT [facility] Progress Note Date of Service: 06/15/2023 Start Time: 3:30pm Stop Time: 4:30pm Location of Visit: Telemedicine: AfterShip Video Visit: This telemedicine visit is conducted by audio and video technology between thepatient and provider. Informed consent was provided during e-check in and signed by patient. Patient was offered opportunity to ask any questions. Patient's Physical Location: Vehicle Provider's Physical Location: Onsite at [facility] Participants in this Visit other than the patient/provider included: Patient's partner. Pt was not present during today's visit. FIRST RESPONDER SERVICES PROVIDED (if applicable): No Type of [...] Plan: 1. Psychotherapy: Pt to continue in [facility] programming; partner to engage in brief, individual support through MB team to ensure he and partner are best supported at this time 2. Psychiatric care: Dr. Benson/Dr. Mejia 3. Utilize emergency resources (APS, COPE) Noy Chen LICSW, 06/17/2023 11:03 AM documented in this encounter Plan of Treatment Upcoming Encounters Date Type Department Care Team Description 11/09/2023 4:[address] [facility] [address] [address] Alfred Lambert, HAND WOVEN CARPET AND RUG MENDER, ENGINEERING PROGRAM MANAGER [address] [address] Scheduled Discharge Disposition: Discharged to home or [...]
--- OUTSIDE RECORDS SUMMARY | 2023-11-04 21:54 | XMS_ITS | Encounter Summary ---
Author Name Unknown Organization [facility] Address [address] [place] [address] Phone Care Team Providers Care School Health Aide Name Role Phone Unavailable Primary Care Provider Unavailabl e Reason for Visit * Prior Authorization (Routine) - Closed Specialty Diagnoses / Procedures Referred By Contac t Referred To Contact Psych Rehab Diagnoses Bipolar II disorder () Trauma and stressor-related disorder Procedures MOTHER BABY ENROLLMENT Jazmine Potter, [facility] [address] [place] [address] [address] Referral ID Status Reason Start Date Expiration Date Visits Re quested Visits Authorized [id number] Closed 05/09/2023 06/24/2023 105 105 Encounter Details Date Type Department Care Team Description 06/20/2023 1:45 PM CDT [facility] [address] [place] [address] [phone] Karoline Benson MD 701 [facility] S1 860 [place], [place] [phone] Dh, Mother Baby Discharge Disposition: Discharged to [...] LICSW - 06/20/2023 1:45 PM CDT Dept: [facility] Type of Service: Group Therapy Name of Group: Psychoeducation/Skills Group Provider/Group Ham Sawyer: Jazmine Potter LICSW Date of Service: 06/20/2023 Start Time: 1:45 PM Stop Time: 2:30 PM Number of Group Members Present: 3 Location of Service: Face to Face at [facility] TUBE PUSHER SERVICES PROVIDED (if applicable): No Session Content [...] Department Care Team Description 11/09/2023 4:30 PM [facility]ics [address] [place], [place] [phone] Alfred Lambert, EXPLOSIVE ORDNANCE TECHNICIAN, RACETRACK STEWARD [address] [address] Scheduled Discharge Disposition: Discharged to home or [...]
--- OUTSIDE RECORDS SUMMARY | 2023-11-04 21:54 | XMS_ITS | Encounter Summary ---
Author Name Unknown Organization [facility] Address [address] [place] [address] Phone Care Team Providers Care Barker Operator Name Role Phone Unavailable Primary Care Provider Unavailabl e Reason for Visit * Prior Authorization (Routine) - Closed Specialty Diagnoses / Procedures Referred By Contac t Referred To Contact Psych Rehab Diagnoses Bipolar II disorder () Trauma and stressor-related disorder Procedures MOTHER BABY ENROLLMENT Jazmine Potter, [facility] [address] [place] [address] [address] Referral ID Status Reason Start Date Expiration Date Visits Re quested Visits Authorized [id number] Closed 05/09/2023 06/24/2023 105 105 Encounter Details Date Type Department Care Team Description 06/16/2023 9:30 AM CDT [facility] [address] [place] [address] Karoline Benson MD 701 [facility] S1 860 [place], [place] [phone] Dh, Mother Baby Discharge Disposition: Discharged to [...] Department Care Team Description 11/09/2023 4:30 PM ERGONOMICS TECHNICIAN [facility] [address] [address] Alfred Lambert, STITCH BONDING MACHINE OPERATOR, STUDIO MANAGER [address] [address] Scheduled Discharge Disposition: Discharged to home or self care (routine discharge) documented as of this encounter Visit Diagnoses Not on filedocumented in this encounter Additional Health Concerns Assessment Noted Time PHQ-9 Depression Total Score: 19 023 4:26 PM CDT PHQ-2 Depression Total Score: 3 06/02/20 23 4:26 PM CDT documented as of this encounter
--- OUTSIDE RECORDS SUMMARY | 2023-11-04 21:54 | XMS_ITS | Encounter Summary ---
Author Name Unknown Organization [facility] Address 701 [place] [address] Phone Care Team Providers Care Legal Arbitrator Name Role Phone Unavailable Primary Care Provider Unavailabl e Reason for Visit * Reason Onset Date Comments Mother Baby - Mental Health Outreach 06/17/2023 Encounter Details Date Type Department Care Team Description 06/17/2023 Telephone [facility] 701 [place], [place] [address] Regina Romero MHW 701 [place] [address] Mother Baby - Mental Health Outreach Social [...] Department Care Team Description 11/09/2023 4:30 PM STEAM FITTER SUPERVISOR MAINTENANCE [facility] [address] [address] Alfred Lambert, MOTOR VEHICLE OR CARAVAN SALESPERSON, SURVEYOR GEOPHYSICAL PROSPECTING [address] [phone] Scheduled Discharge Disposition: Discharged to home or self care (routine discharge) documented as of this encounter Visit Diagnoses Not on filedocumented in this encounter Additional Health Concerns Assessment Noted Time PHQ-9 Depression Total Score: 19 023 4:26 PM CDT PHQ-2 Depression Total Score: 3 06/02/20 23 4:26 PM CDT documented as of this encounter
--- OUTSIDE RECORDS SUMMARY | 2023-11-04 21:54 | XMS_ITS | Encounter Summary ---
Author Name Unknown Organization [facility] Address [address] [place] [address] Phone Care Team Providers Care Logistics Engineering Manager Name Role Phone Unavailable Primary Care [...] Department Care Team Description 11/09/2023 4:30 PM CLINICAL EDUCATION ACADEMIC COORDINATOR [facility] [address] [address] Alfred Lambert, SANITATION ASSOCIATE, PROJECT MANAGEMENT PROFESSOR [address] [address] Scheduled Discharge Disposition: Discharged to home or self care (routine discharge) documented as of this encounter Visit Diagnoses Not on filedocumented in this encounter Additional Health Concerns Assessment Noted Time PHQ-9 Depression Total Score: 19 08/24/2 023 4:26 PM CDT PHQ-2 Depression Total Score: 3 06/02/20 23 4:26 PM CDT documented as of this encounter
--- OUTSIDE RECORDS SUMMARY | 2023-11-04 21:55 | XMS_ITS | Encounter Summary ---
Author Name Unknown Organization [facility] Address 701 [place] [address] Phone Care Team Providers Care Temporary Receptionist Name Role Phone Unavailable Primary Care Provider Unavailabl e Reason for Visit * Reason Onset Date Comments Mother Baby - Mental Health Outreach 05/24/2023 Encounter Details Date Type Department Care Team Description 05/24/2023 Telephone [facility] Family [facility] 701 [place], [place] [address] Jazmine Potter, TRANSPLANT SURGEON 701 [place], [place] [phone] Mother Baby - Mental Health Outreach Social [...] Notes * Telephone Encounter - Jazmine Potter TRANSPLANT SURGEON - 05/25/2023 9:55 AM CDT Dye Maker spoke with patient who reported that she was currently in ED [facility]. Patient stated, all signs are pointing to psychosis. Endorsed increased paranoia since Tuesday evening and hearing whispers. Dye Maker offered emotional support and ensured patient that [facility] is available upon discharge from the hospital. Patient expressed relief to hear this. Ensured that she is currently safe in ED and stated that she will be in touch with [facility] upon discharge to return to programming. documented in this encounter Plan of Treatment Upcoming Encounters Date Type Department Care Team Description 11/09/2023 4:30 PM COFFEE SHOP ATTENDANT [facility] [address] [place] [address] Alfred Lambert, AUTOMAT CAR ATTENDANT, BLOW UP OPERATOR [address] [address] Scheduled Discharge Disposition: Discharged to home or self care (routine discharge) documented as of this encounter Visit Diagnoses Not on filedocumented in this encounter Additional Health Concerns Assessment Noted Time PHQ-9 Depression Total Score: 12 023 3:14 PM CDT PHQ-2 Depression Total Score: 2 05/18/20 23 3:14 PM CDT documented as of this encounter
--- OUTSIDE RECORDS SUMMARY | 2023-11-04 21:55 | XMS_ITS | Encounter Summary ---
Author Name Unknown Organization [facility] Address [address] [place] [address] Phone Care Team Providers Care Underground Repairer Name Role Phone Unavailable Primary Care Provider Unavailabl e Reason for Visit * Reason Comments Mother Baby - Family Session * Prior Authorization (Routine) - Closed Specialty Diagnoses / Procedures Referred By Bernardo t Referred To Contact Psych Rehab Diagnoses Bipolar II disorder () Trauma and stressor-related disorder Procedures MOTHER BABY ENROLLMENT Jazmine Potter, [facility] [address] [place] [address] [address] Referral ID Status Reason Start Date Expiration Date Visits Re quested Visits Authorized [id number] Closed 05/09/2023 06/24/2023 105 105 Encounter Details Date Type Department Care Team Description 06/01/2023 9:00 AM CDT Psych Rehab [facility] [address] [place] [phone] Claire Workman, [facility] [address] [place] [phone] Mother Baby - Family Session Discharge Disposition: [...] this encounter Progress Notes * Claire Workman, [facility] - 06/01/2023 9:00 AM CDT [facility] Progress Note Date of Service: 06/01/2023 Start Time: 9 am Stop Time: 9:30 am Location of Visit: Face to Face at [facility] Participants in this Visit other than the [...] effect and pt has copy Claire Workman, [facility], 05/18/2023 3:15 PM documented in this encounter Plan of Treatment Upcoming Encounters Date Type Department Care Team Description 11/09/2023 4:30 PM BENZOL STILL OPERATOR [facility] [address] [address] Alfred Lambert, BUSINESS SOLUTIONS ARCHITECT, FOOD AND BEVERAGE SERVER [address] [phone] Scheduled Discharge Disposition: Discharged to home or [...]
--- OUTSIDE RECORDS SUMMARY | 2023-11-04 21:55 | XMS_ITS | Encounter Summary ---
Author Name Unknown Organization [facility] Address [address] [place] [address] Phone Care Team Providers Care Automobile Insurance Claim Examiner Name Role Phone Unavailable Primary Care Provider Unavailabl e Reason for Visit * Prior Authorization (Routine) - Closed Specialty Diagnoses / Procedures Referred By Contac t Referred To Contact Psych Rehab Diagnoses Bipolar II disorder () Trauma and stressor-related disorder Procedures MOTHER BABY ENROLLMENT Jazmine Potter, [facility] 701 [place] [address] [address] Referral ID Status Reason Start Date Expiration Date Visits Re quested Visits Authorized [id number] Closed 05/09/2023 06/24/2023 105 105 Encounter Details Date Type Department Care Team Description 05/23/2023 11:00 AM CDT [facility] [address] [place] [phone] Karoline Benson MD 701 [facility] S1 860 [place], [place] [phone] Dh, Mother Baby Discharge Disposition: Discharged to [...] LPCC - 05/23/2023 11:00 AM CDT Dept: [facility] Type of Service: Group Therapy Name of Group: Psychoeducation/Skills Group Provider/Group Registered Radiologic Technologist: Claire Workman LPCC Date of Service: 05/23/2023 [...] Skills taught today included: Parenting Education (describe [place] of Security Chapter 2) The patient???s response [...] Department Care Team Description 11/09/2023 4:30 PM HARNESS CUTTER [facility] Clinics [address] [address] Alfred Lambert, ADMINISTRATOR PESTICIDE, PSYCHOLOGICAL ASSISTANT [address] [address] Scheduled Discharge Disposition: Discharged to home or [...]
--- OUTSIDE RECORDS SUMMARY | 2023-11-04 21:55 | XMS_ITS | Encounter Summary ---
Author Name Unknown Organization [facility] Address [address] [place] [address] Phone Care Team Providers Care Certified Peer Specialist Name Role Phone Unavailable Primary Care Provider Unavailabl e Reason for Visit * Prior Authorization (Routine) - Closed Specialty Diagnoses / Procedures Referred By Contac t Referred To Contact Psych Rehab Diagnoses Bipolar II disorder () Trauma and stressor-related disorder Procedures MOTHER BABY ENROLLMENT Jazmine Potter, [facility] [address] [place] [address] [address] Referral ID Status Reason Start Date Expiration Date Visits Re quested Visits Authorized [id number] Closed 05/09/2023 06/24/2023 105 105 Encounter Details Date Type Department Care Team Description 06/06/2023 12:30 PM CDT [facility] [address] [place] [phone] Karoline Benson MD 701 [facility] S1 860 [place], [place] [phone] Dh, Mother Baby Discharge Disposition: Discharged to [...] OTR/L - 06/06/2023 12:30 PM CDT Dept: [facility] Type of Service: Group Therapy Name of Group: Wellness Group Provider/Group Journeyman Operator Assistant: Alisha Hardy OTR/L Date of Service: 06/06/2023 Start Time: 12:45 PM Stop Time: 1:30 PM Number of Group Members Present: 4 Location of Service: Face to Face at [facility] HYPERBARIC TECHNICIAN SERVICES PROVIDED (if applicable): No Session Content [...] Department Care Team Description 11/09/2023 4:30 PM [facility] Clinics [address] [place] [address] Alfred Lambert, POT ROOM TAPPER, FIRESTOPPER INSTALLER [address] [place] [address] Scheduled Discharge Disposition: Discharged to home or [...]
--- OUTSIDE RECORDS SUMMARY | 2023-11-04 21:55 | XMS_ITS | Encounter Summary ---
Author Name Unknown Organization [facility] Address [address] [place] [address] Phone Care Team Providers Care Stockkeeper Name Role Phone Unavailable Primary Care Provider Unavailabl e Encounter Details Date Type Department Care Team Description 06/02/2023 10:00 AM CDT Psych Rehab [facility] [address] [place] [address] Ray Esposito MD [address] [address] Discharge Disposition: Discharged to home or self [...] MD - 06/02/2023 10:00 AM CDT 06/02/2023 [facility] Medication follow-up Interim history - seen by this curriculum writer previously on 05/23/23 - and subsequently by on 06/01/23. After delivery of her baby girl on 05/03/23 had returned home - but had then experienced visual hallucinations. Her then called 911 and she was hospitalized in [place], [place]. While there her BP was very unstable and she had a seizure (imaging apparently demonstrated brain swelling and because of very elevated BP she was then airlifted to [facility]. She was discharged home - then was seen on 05/23/23 ( [facility]) at which time she described worrisome symptoms which were felt to possibly represent akathesia. On a trial basis, Risperidone (even though in low dosage) was discontinued and prn Hydroxyzine substituted. However on 05/24/23 she became acutely paranoid and delusional - and was then transferred to [place], [place] ([facility]) - and stabilized there (on Olanzapine ) - eventually discharged home to [place] on 05/30/23. Later on 06/01/23 she was again evaluated at the [facility] mother-baby clinic - by Karissa Mejia M.D. - who noted that patient had been again seen in a local urgent-care clinic (in [place], [place]) - where BP was elevated and [...] review. Today Merry is seen by this curriculum writer in the [facility]. All recent notes are reviewed. Fully alert [...] legs. However on formal evaluation by this curriculum writer today, there is no noticeable tremor [...] dosage increases likely needed [facility] [place] - continue Lamictal titration (Guanfacine discontinued). - [...] Department Care Team Description 11/09/2023 4:30 PM FRUIT GRADING SUPERVISOR [facility] Clinics [address] [address] Alfred Lambert, HOIST MECHANIC, MASON TENDER RESTORATION LABOR [address] [address] Scheduled Discharge Disposition: Discharged to home or self care (routine discharge) documented as of this encounter Visit Diagnoses Not on filedocumented in this encounter Additional Health Concerns Assessment Noted Time PHQ-9 Depression Total Score: 19 023 4:26 PM CDT PHQ-2 Depression Total Score: 3 06/02/20 23 4:26 PM CDT documented as of this encounter
--- OUTSIDE RECORDS SUMMARY | 2023-11-04 21:55 | XMS_ITS | Encounter Summary ---
Author Name Unknown Organization [facility] Address [address] [place] [address] Phone Care Team Providers Care Medical Educator Name Role Phone Unavailable Primary Care Provider Unavailabl e Reason for Visit * Prior Authorization (Routine) - Closed Specialty Diagnoses / Procedures Referred By Contac t Referred To Contact Psych Rehab Diagnoses Bipolar II disorder () Trauma and stressor-related disorder Procedures MOTHER BABY ENROLLMENT Jazmine Potter, [facility] [address] [place] [address] [address] Referral ID Status Reason Start Date Expiration Date Visits Re quested Visits Authorized [id number] Closed 05/09/2023 06/24/2023 105 105 Encounter Details Date Type Department Care Team Description 06/02/2023 12:30 PM CDT [facility] [address] [place] [phone] Karoline Benson MD [address] [facility] [address] [place], [place] [phone] Dh, Mother Baby Discharge Disposition: Discharged to [...] LPCC - 06/02/2023 12:30 PM CDT Dept: [facility] Type of Service: Group Therapy Name of Group: Psychoeducation/Skills Group Provider/Group Division Engineer: Claire Workman LPCC Date of Service: 06/02/2023 Start Time: 12:45 PM Stop Time: 1:30 PM Number of Group Members Present: 4 Location of Service: Face to Face at [facility] Session Content (Intervention): The purpose of this group was to provide education through information-sharing and facilitated group discussion. Handouts were provided and covered in detail. Skills taught today included: Parenting Education (describe [place] of Security Chapter 4) The patient???s response [...] Department Care Team Description 11/09/2023 4:30 PM PONY TRIMMER [facility]ics [address] [place] [address] Alfred Lambert, EXECUTIVE MANAGER, VALUER [address] [address] Scheduled Discharge Disposition: Discharged to home or [...]
--- OUTSIDE RECORDS SUMMARY | 2023-11-04 21:55 | XMS_ITS | Encounter Summary ---
Author Name Unknown Organization [facility] Address [address] [place] [address] Phone Care Team Providers Care Robotic Technician Name Role Phone Unavailable Primary Care Provider Unavailabl e Reason for Visit * Reason Comments Psych Medication Management Encounter Details Date Type Department Care Team Description 06/06/2023 10:00 AM CDT Psych Rehab [facility] [address] [place], [place] [address] Karoline Benson MD [address] [facility] [address] [place], [place] [phone] Psych Medication Management Discharge Disposition: Discharged to [...] 2 year old son (Chuy). Referred by [facility] initially to the [facility]. Also admitted while she was in the program to [facility] ([place], [place]) 05/24-05/30/23. Cultural Context: white, Belarusian and Guinean Pronouns: she/her/hers; Supports: Jesús -- supportive Therapist: ; PCP: ; OB-REAMING MACHINE TENDER: Antonio Ob; Highway Construction Inspector: Feeding Method: mainly formula because milk [...] while she was in the program to [facility] ([place] [place]) 05/24-05/30/23. 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 mother of 2 following a harrowing course with psychotic symptoms and possible preeclampsia leading to transfer to [facility] ICU. Longitudinal course consistent with Complex Developmental Trauma and bipolar spectrum. Feeling better now after recent psy chiatric admission (05/24-) to [facility] for increased SI, paranoia, and auditory hallucinations. [...] individual and group therapy process in the [facility]. 6) Review old records. 7) Contact collateral [...] when she was 4. Mother lived in [place]. 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 Legal: no had involvement with the legal system. The patient reports the following spiritual and/or cultural history: Belarusian and Guinean background Relationship to her partner/father/co-parent of the [...] Department Care Team Description 11/09/2023 4:30 PM COLLISION WORKER [facility] [address] [place] [address] Alfred Lambert, VAZQUEZ, CAFE SERVER [address] [address] Scheduled Discharge Disposition: Discharged to home or self care (routine discharge) documented as of this encounter Visit Diagnoses Not on filedocumented in this encounter Additional Health Concerns Assessment Noted Time PHQ-9 Depression Total Score: 19 023 4:26 PM CDT PHQ-2 Depression Total Score: 3 06/02/20 23 4:26 PM CDT documented as of this encounter
--- OUTSIDE RECORDS SUMMARY | 2023-11-04 21:55 | XMS_ITS | Encounter Summary ---
Author Name Unknown Organization [facility] Address [address] [place] [address] Phone Care Team Providers Care Employee Services Manager Name Role Phone Unavailable Primary Care Provider Unavailabl e Reason for Visit * Reason Onset Date Comments Psych Medication Management 06/01/2023 * Prior Authorization (Routine) - Closed Specialty Diagnoses / Procedures Referred By Bernardo belle Referred To Contact Psych Rehab Diagnoses Bipolar II disorder () Trauma and stressor-related disorder Procedures MOTHER BABY ENROLLMENT Jazmine Potter, [facility] [address] [place] [address] [address] Referral ID Status Reason Start Date Expiration Date Visits Re quested Visits Authorized [id number] Closed 05/09/2023 06/24/2023 105 105 Encounter Details Date Type Department Care Team Description 06/01/2023 10:00 AM CDT [facility] [address] [place] [address] [phone] Karissa Mejia MD [address] [place], [place] [phone] Psych Medication Management Discharge Disposition: Discharged to [...] Mother Baby [facility], Psychiatry Visit Started the [facility] on: 05/09/23 Merry Rooney is a 23 y.o. mother of baby (Aidan born 05/03/23) and 2 year old son (Chuy). Referred by [facility] inpatient Cultural Context: white, Micronesian and Kyrgyz Pronouns: she/her/hers; Supports: Espinosa -- supportive Therapist: ; PCP: ; OB-SUPPORT SERVICES SPECIALIST: Antonio Ob; Clinical Liaison: Feeding Method: breast and bottle feeding with [...] symptoms and possible preeclampsia [place] [facility]. Longitudinal course consistent with Complex Developmental [...] individual and group therapy process in the [facility]. 6) Review old records. 7) Contact [...] when she was 4. Mother lived in [place]. 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 Legal: no had involvement with the legal system. The patient reports the following spiritual and/or cultural history: Micronesian and Kyrgyz background Relationship to her partner/father/co-parent [...] Department Care Team Description 11/09/2023 4:30 PM ELECTRICAL ACCESSORIES II ASSEMBLER [facility] [address] [place] [address] Alfred Lambert, VOLUNTEER COORDINATOR, METALLOGRAPHIC TECHNICIAN [address] [address] Scheduled Discharge Disposition: Discharged to home or [...]
--- OUTSIDE RECORDS SUMMARY | 2023-11-04 21:55 | XMS_ITS | Encounter Summary ---
Author Name Unknown Organization [facility] Address [address] [place] [address] Phone Care Team Providers Care Low Pressure Boiler Tender Name Role Phone Unavailable Primary Care Provider Unavailabl e Reason for Visit * Prior Authorization (Routine) - Closed Specialty Diagnoses / Procedures Referred By Contac t Referred To Contact Psych Rehab Diagnoses Bipolar II disorder () Trauma and stressor-related disorder Procedures MOTHER BABY ENROLLMENT Jazmine Potter, [facility] [address] [place] [address] [address] Referral ID Status Reason Start Date Expiration Date Visits Re quested Visits Authorized [id number] Closed 05/09/2023 06/24/2023 105 105 Encounter Details Date Type Department Care Team Description 05/19/2023 10:15 AM CDT Psych Rehab [facility] [address] [place] [address] [phone] Karoline Benson MD 701 [facility] S[address] [place], [place] [address] Dh, Mother Baby Discharge Disposition: Discharged to [...] LPCC - 05/19/2023 10:15 AM CDT Dept: [facility] Type of Service: Group Therapy Name of Group: Psychotherapy Process Group Provider/Group Cleat Feeder: Claire Workman LPCC Date of Service: 05/19/2023 Start Time: 10:15 AM Stop Time: 11:00 AM Number of Group Members Present: 5 Location of Service: Face to Face at [facility] Session Content of Today's Group: At [...] Department Care Team Description 11/09/2023 4:30 PM OPERATIONS OFFICER AFLOAT [facility] [address] [place] [address] Alfred Lambert, VAZQUEZ, GENERAL ROAD PRODUCTION MANAGER [address] [address] Scheduled Discharge Disposition: Discharged to home or [...]
--- OUTSIDE RECORDS SUMMARY | 2023-11-04 21:55 | XMS_ITS | Encounter Summary ---
Author Name Unknown Organization [facility] Address [address] [place] [address] Phone Care Team Providers Care Chief Executive Or Managing Director Name Role Phone Unavailable Primary Care Provider Unavailabl e Reason for Visit * Prior Authorization (Routine) - Closed Specialty Diagnoses / Procedures Referred By Contac t Referred To Contact Psych Rehab Diagnoses Bipolar II disorder () Trauma and stressor-related disorder Procedures MOTHER BABY ENROLLMENT Jazmine Potter, [facility] [address] [place] [address] [address] Referral ID Status Reason Start Date Expiration Date Visits Re quested Visits Authorized [id number] Closed 05/09/2023 06/24/2023 105 105 Encounter Details Date Type Department Care Team Description 05/19/2023 12:30 PM CDT [facility] [address] [place] [address] [phone] Karoline Benson MD 701 [facility] S1 [address] [place], [place] [phone] Dh, Mother Baby Discharge Disposition: Discharged to [...] LPCC - 05/19/2023 12:30 PM CDT Dept: [facility] Type of Service: Group Therapy Name of Group: Psychoeducation/Skills Group Provider/Group Rn Nicu: Claire Workman LPCC Date of Service: 05/19/2023 Start Time: 12:45 PM Stop Time: 1:30 PM Number of Group Members Present: 5 Location of Service: Face to Face at [facility] Session Content (Intervention): The purpose of this group was to provide education through information-sharing and facilitated group discussion. Handouts were provided and covered in detail. Skills taught today included: Parenting Education (describe Bowie of Security Chapters 1 and 2) The [...] Department Care Team Description 11/09/2023 4:30 PM GREASE MONKEY [facility] [address] [address] Alfred Lambert, TEAM LEADER SURGERY, WEB MARKETING STRATEGIST [address] [address] Scheduled Discharge Disposition: Discharged to home or self care (routine discharge) documented as of this encounter Visit Diagnoses Not on filedocumented in this encounter Additional Health Concerns Assessment Noted Time PHQ-9 Depression Total Score: 12 023 3:14 PM CDT PHQ-2 Depression Total Score: 2 05/18/20 23 3:14 PM CDT documented as of this encounter
--- OUTSIDE RECORDS SUMMARY | 2023-11-04 21:55 | XMS_ITS | Encounter Summary ---
Author Name Unknown Organization [facility] Address [address] [place] [address] Phone Care Team Providers Care Oracle Hrms Consultant Name Role Phone Unavailable Primary Care Provider Unavailabl e Reason for Visit * Reason Onset Date Comments Follow-up 05/27/2023 Encounter Details Date Type Department Care Team Description 05/27/2023 Telephone [facility] [address] [place], [place] [address] Kiana Borges RN [facility] [address] [place] [address] Follow-up Social History Tobacco Use Types Packs/Day [...] staff that she has been hospitalized in [place] at [facility]. Pt stated They have stated I have [...] Department Care Team Description 11/09/2023 4:30 PM TRUCK RENTAL SERVICE ATTENDANT [facility] [address] [phone] Alrfed Lambert, MANAGEMENT TRAINEE, PICKING TECH [address] [address] Scheduled Discharge Disposition: Discharged to home or self care (routine discharge) documented as of this encounter Visit Diagnoses Not on filedocumented in this encounter Additional Health Concerns Assessment Noted Time PHQ-9 Depression Total Score: 12 023 3:14 PM CDT PHQ-2 Depression Total Score: 2 05/18/20 23 3:14 PM CDT documented as of this encounter
--- OUTSIDE RECORDS SUMMARY | 2023-11-04 21:55 | XMS_ITS | Encounter Summary ---
Author Name Unknown Organization [facility] Address [address] [place] [address] Phone Care Team Providers Care Exterminator Termite Name Role Phone Unavailable Primary Care Provider Unavailabl e Encounter Details Date Type Department Care Team Description 05/31/2023 Telephone [facility] [address] [place] [address] Kiana Borges RN [facility] [address] [place] [address] Social History Tobacco Use Types Packs/Day Years [...] Pt called and requested to speak with fha underwriter. Pt reported she has an appt [...] Department Care Team Description 11/09/2023 4:30 PM BUYER INTERNSHIP [facility] [address] [place] [address] [phone] Alfred Lambert, VASCULAR SPECIALISTS, CARD READER [address] [phone] Scheduled Discharge Disposition: Discharged to home or self care (routine discharge) documented as of this encounter Visit Diagnoses Not on filedocumented in this encounter Additional Health Concerns Assessment Noted Time PHQ-9 Depression Total Score: 12 023 3:14 PM CDT PHQ-2 Depression Total Score: 2 05/18/20 23 3:14 PM CDT documented as of this encounter
--- OUTSIDE RECORDS SUMMARY | 2023-11-04 21:55 | XMS_ITS | Encounter Summary ---
Author Name Unknown Organization [facility] Address [address] [place] [address] Phone Care Team Providers Care Security Patrol Driver Name Role Phone Unavailable Primary Care Provider Unavailabl e Reason for Visit * Reason Comments Blood Pressure Check Encounter Details Date Type Department Care Team Description 05/23/2023 Documentation Only [facility] Family [facility] [address] [place] [phone] Kiana Borges RN [facility] [address] [place] [address] Blood Pressure Check Social History Tobacco Use [...] Department Care Team Description 11/09/2023 4:30 PM INDUSTRIAL TECH INSTRUCTOR [facility] [address] [phone] Alfred Lambert, PARTNER INTEGRATION PLANNER, CORPSMAN [address] [address] Scheduled Discharge Disposition: Discharged to home or self care (routine discharge) documented as of this encounter Visit Diagnoses Not on filedocumented in this encounter Additional Health Concerns Assessment Noted Time PHQ-9 Depression Total Score: 12 023 3:14 PM CDT PHQ-2 Depression Total Score: 2 05/18/20 23 3:14 PM CDT documented as of this encounter
--- OUTSIDE RECORDS SUMMARY | 2023-11-04 21:55 | XMS_ITS | Encounter Summary ---
Author Name Unknown Organization [facility] Address [address] [place] [address] Phone Care Team Providers Care Innovations Paraprofessional Name Role Phone Unavailable Primary Care Provider Unavailabl e Reason for Visit * Prior Authorization (Routine) - Closed Specialty Diagnoses / Procedures Referred By Contac t Referred To Contact Psych Rehab Diagnoses Bipolar II disorder () Trauma and stressor-related disorder Procedures MOTHER BABY ENROLLMENT Jazmine Potter, [facility] [address] [place] [address] [address] Referral ID Status Reason Start Date Expiration Date Visits Re quested Visits Authorized [id number] Closed 05/09/2023 06/24/2023 105 105 Encounter Details Date Type Department Care Team Description 05/23/2023 12:30 PM CDT [facility] [address] [place] [phone] Karoline Benson MD 701 [facility] S1 [address]60 [place], [place] [phone] Dh, Mother Baby Discharge Disposition: Discharged to [...] RN - 05/23/2023 12:30 PM CDT Dept: [facility] Type of Service: Group Therapy Provider/Group Sample Tester: Kiana Borges RN Date of Service: 05/23/2023 Start Time: 12:45 PM Stop Time: 1:30 PM Number of Group Members Present: 6 Name of Group: Psycho education Location of Service: Face to Face at [facility] ICING AND GLAZE MAKER SERVICES PROVIDED (if applicable): No Session Content of Today's Group (including goal/intended outcome): Medications. The patient's response to the intervention: Kiana Borges RN Name of Group: Psycho education Location of Service: Face to Face at [facility] ICING AND GLAZE MAKER SERVICES PROVIDED (if applicable): No Session [...] present with her. P: To continue with [facility]. Encourage follow up in psychotherapy group regarding any outstanding issues. Observations of Individual Group Member: the patient arrived to group on time and remained the entire 45-minute session. Appeared alert and attentive to material presented and group members. Kiana Borges RN, 05/23/2023 3:16 PM documented in this encounter Plan of Treatment Upcoming Encounters Date Type Department Care Team Description 11/09/2023 4:30 PM PRODUCT AMBASSADOR [facility] [address] [address] Alfred Lambert, RESPIRATORY SUPERVISOR, PROTOTYPE ENGINEER [address] [address] Scheduled Discharge Disposition: Discharged to home or [...]
--- OUTSIDE RECORDS SUMMARY | 2023-11-04 21:55 | XMS_ITS | Encounter Summary ---
Author Name Unknown Organization [facility] Address [address] [place] [address] Phone Care Team Providers Care Furnace Loader Name Role Phone Unavailable Primary Care Provider Unavailabl e Reason for Visit * Prior Authorization (Routine) - Closed Specialty Diagnoses / Procedures Referred By Contac t Referred To Contact Psych Rehab Diagnoses Bipolar II disorder () Trauma and stressor-related disorder Procedures MOTHER BABY ENROLLMENT Jazmine Potter, [facility] [address] [place] [address] [address] Referral ID Status Reason Start Date Expiration Date Visits Re quested Visits Authorized [id number] Closed 05/09/2023 06/24/2023 105 105 Encounter Details Date Type Department Care Team Description 06/06/2023 9:30 AM CDT [facility] [address] [place] [address] [phone] Karoline Benson MD 701 [facility] S1 [address]60 [place], [place] [phone] Dh, Mother Baby Discharge Disposition: Discharged to [...] LICSW - 06/06/2023 9:30 AM CDT Dept: [facility] Type of Service: Group Therapy Name of Group: Psychoeducation/Skills Group Provider/Group Director Learning And Development: Jazmine Potter LICSW Date of Service: 06/06/2023 Start Time: 9:30 AM Stop Time: 10:15 AM Number of Group Members Present: 5 Location of Service: Face to Face at [facility] ENVIRONMENTAL HEALTH AND SAFETY LEADER SERVICES PROVIDED (if applicable): No Session Content [...] Department Care Team Description 11/09/2023 4:30 PM RUST [facility] [address] [address] Alfred Lambert, COMMERCIAL SALES CONSULTANT, NURSE EXAMINER [address] [place] [address] Scheduled Discharge Disposition: Discharged to home or [...]
--- OUTSIDE RECORDS SUMMARY | 2023-11-04 21:55 | XMS_ITS | Encounter Summary ---
Author Name Unknown Organization [facility] Address [address] [place] [address] Phone Care Team Providers Care Bulb Planter Name Role Phone Unavailable Primary Care Provider Unavailabl e Reason for Visit * Prior Authorization (Routine) - Closed Specialty Diagnoses / Procedures Referred By Contac t Referred To Contact Psych Rehab Diagnoses Bipolar II disorder () Trauma and stressor-related disorder Procedures MOTHER BABY ENROLLMENT Jazmine Potter, [facility] [address] [place] [address] [address] Referral ID Status Reason Start Date Expiration Date Visits Re quested Visits Authorized [id number] Closed 05/09/2023 06/24/2023 105 105 Encounter Details Date Type Department Care Team Description 06/02/2023 1:45 PM CDT [facility] [address] [place] [address] Karoline Benson MD 701 [facility] S1 [address] [place], [place] [phone] Dh, Mother Baby Discharge Disposition: Discharged to [...] 06/02/2023 1:45 PM CDT Dept: [facility] Type of Service: Group Therapy Name of Group: Psychoeducation/Skills Group Provider/Group Vocational Rehabilitation Supervisor: Claire Workman LPCC Date of Service: 06/02/2023 Start Time: 1:45 PM Stop Time: 2:30 PM Number of Group Members Present: 3 Location of Service: Face to Face at [facility] Session Content (Intervention): The purpose [...] Department Care Team Description 11/09/2023 4:30 PM NUTRITIONAL ASSISTANT [facility] [address] [place] [address] Alfred Lambert, DATA COLLECTION SPECIALIST, OUTLET MANAGER [address] [address] Scheduled Discharge Disposition: Discharged to home or [...]
--- OUTSIDE RECORDS SUMMARY | 2023-11-04 21:55 | XMS_ITS | Encounter Summary ---
Author Name Unknown Organization [facility] Address [address] [place] [address] Phone Care Team Providers Care Ambulance Paramedic Name Role Phone Unavailable Primary Care Provider Unavailabl e Reason for Visit * Prior Authorization (Routine) - Closed Specialty Diagnoses / Procedures Referred By Contac t Referred To Contact Psych Rehab Diagnoses Bipolar II disorder () Trauma and stressor-related disorder Procedures MOTHER BABY ENROLLMENT Jazmine Potter, [facility] [address] [place] [address] [address] Referral ID Status Reason Start Date Expiration Date Visits Re quested Visits Authorized [id number] Closed 05/09/2023 06/24/2023 105 105 Encounter Details Date Type Department Care Team Description 05/23/2023 1:45 PM CDT [facility] [address] [place] [address] [phone] Karoline Benson MD 701 [facility] S1 [address]60 [place], [place] [phone] Dh, Mother Baby Discharge Disposition: Discharged to [...] LICSW - 05/23/2023 1:45 PM CDT Dept: [facility] Type of Service: Group Therapy Name of Group: Psychoeducation/Skills Group Provider/Group Powerhouse Laborer: Jazmine Potter LICSW Date of Service: 05/23/2023 Start Time: 1:45 PM Stop Time: 2:30 PM Number of Group Members Present: 5 Location of Service: Face to Face at [facility] SUPERANNUATION FUNDS MANAGER SERVICES PROVIDED (if applicable): No Session [...] Department Care Team Description 11/09/2023 4:30 PM BRIDGE CONTRACTOR [facility] [address] [address] Alfred Lambert, ARM MAKER, [place] [address] [address] Scheduled Discharge Disposition: Discharged to home or [...]
--- OUTSIDE RECORDS SUMMARY | 2023-11-04 21:55 | XMS_ITS | Encounter Summary ---
Author Name Unknown Organization [facility] Address [address] [place] [address] Phone Care Team Providers Care Information Systems Coordinator Name Role Phone Unavailable Primary Care Provider Unavailabl e Reason for Visit * Prior Authorization (Routine) - Closed Specialty Diagnoses / Procedures Referred By Contac t Referred To Contact Psych Rehab Diagnoses Bipolar II disorder () Trauma and stressor-related disorder Procedures MOTHER BABY ENROLLMENT Jazmine Potter, [facility] [address] [place] [address] [address] Referral ID Status Reason Start Date Expiration Date Visits Re quested Visits Authorized [id number] Closed 05/09/2023 06/24/2023 105 105 Encounter Details Date Type Department Care Team Description 05/19/2023 1:30 PM CDT [facility] [address] [place] [address] [phone] Karoline Benson MD 701 [facility] S1 860 [place], [place] [phone] Dh, Mother Baby Discharge Disposition: Discharged to [...] LPCC - 05/19/2023 1:30 PM CDT Dept: [facility] Type of Service: Group Therapy Name of Group: Psychoeducation/Skills Group Provider/Group Flexo Operator: Claire Workman LPCC Date of Service: 05/19/2023 Start Time: 1:45 PM Stop Time: 2:30 PM Number of Group Members Present: 7 Location of Service: Face to Face at [facility] Session Content (Intervention): The purpose of [...] Department Care Team Description 11/09/2023 4:30 PM BUILDER'S LABOURER [facility] [address] [address] Alfred Lambert, TITLE INSURANCE EXAMINER, TRAVEL JOURNALIST [address] [address] Scheduled Discharge Disposition: Discharged to home or [...]
--- OUTSIDE RECORDS SUMMARY | 2023-11-04 21:55 | XMS_ITS | Encounter Summary ---
Author Name Unknown Organization [facility] Address [address] [facility] [place] [address] Phone Care Team Providers Care Air And Water Tester Name Role Phone Unavailable Primary Care Provider Unavailabl e Reason for Visit * Reason Onset Date Comments Mother Baby - Mental Health Outreach 06/03/2023 Encounter Details Date Type Department Care Team Description 06/03/2023 Telephone [facility] 701 [place], [place] [phone] Claire Workman, [facility] 701 [facility] [place], [place] [phone] Mother Baby - Mental Health Outreach Social [...] Notes * Telephone Encounter - Claire Workman, [facility] - 06/03/2023 12:57 PM CDT Called [...] Department Care Team Description 11/09/2023 4:30 PM PRESERVATIONIST [facility] [address] [place] [address] Alfred Lambert, SANITATION WORKER CLEANING MACHINERY, CONCRETE MIXER [address] [phone] Scheduled Discharge Disposition: Discharged to home or self care (routine discharge) documented as of this encounter Visit Diagnoses Not on filedocumented in this encounter Additional Health Concerns Assessment Noted Time PHQ-9 Depression Total Score: 19 06/02/ 023 4:26 PM CDT PHQ-2 Depression Total Score: 3 06/02/20 23 4:26 PM CDT documented as of this encounter
--- OUTSIDE RECORDS SUMMARY | 2023-11-04 21:55 | XMS_ITS | Encounter Summary ---
Author Name Unknown Organization [facility] Address [address] [place] [address] Phone Care Team Providers Care Supervisor Agricultural Education Name Role Phone Unavailable Primary Care Provider Unavailabl e Encounter Details Date Type Department Care Team Description 05/19/2023 12:00 PM CDT [facility] [address] [place] [address] [phone] Ray Esposito MD [address] [address] Discharge Disposition: Discharged to home or self [...] 12:00 PM CDT Not seen by this repairer typewriter in [facility] today. documented in this encounter Plan of Treatment Upcoming Encounters Date Type Department Care Team Description 11/09/2023 4:30 PM [facility] [address] [place] [address] Alfred Lambert, VAZQUEZ, SUPERVISOR [employer] [address] [place] [address] Scheduled Discharge Disposition: Discharged to home or self care (routine discharge) documented as of this encounter Visit Diagnoses Not on filedocumented in this encounter Additional Health Concerns Assessment Noted Time PHQ-9 Depression Total Score: 12 023 3:14 PM CDT PHQ-2 Depression Total Score: 2 05/18/20 23 3:14 PM CDT documented as of this encounter
--- OUTSIDE RECORDS SUMMARY | 2023-11-04 21:55 | XMS_ITS | Encounter Summary ---
Author Name Unknown Organization [facility] Address [address] [place] [address] Phone Care Team Providers Care Physics Teacher Name Role Phone Unavailable Primary Care Provider Unavailabl e Reason for Visit * Prior Authorization (Routine) - Closed Specialty Diagnoses / Procedures Referred By Contac t Referred To Contact Psych Rehab Diagnoses Bipolar II disorder () Trauma and stressor-related disorder Procedures MOTHER BABY ENROLLMENT Jazmine Potter, [facility] 701 [place] [address] [address] Referral ID Status Reason Start Date Expiration Date Visits Re quested Visits Authorized [id number] Closed 05/09/2023 06/24/2023 105 105 Encounter Details Date Type Department Care Team Description 06/01/2023 11:00 AM CDT [facility] [address] [place] [phone] Karoline Benson MD 701 [facility] S1 860 [place], [place] [phone] Dh, Mother Baby Discharge Disposition: Discharged to [...] RN - 06/01/2023 11:00 AM CDT Dept: [facility] Type of Service: Group Therapy Provider/Group Lime Burner: Kiana Borges RN Date of Service: 06/01/2023 Start Time: 11:15 AM Stop Time: 12:00 PM Number of Group Members Present: 5 Name of Group: Movement Location of Service: Face to Face at [facility] STONE DRILLER SERVICES PROVIDED (if applicable): No Session Content (Intervention) (including goal/intended outcome): Encouraged group members to participate in mind-body skills facilitated by [facility] Trauma- Informed Yoga providers. Trauma-sensitive mind-body skills [...] Department Care Team Description 11/09/2023 4:30 PM PROFESSOR OF PHILOSOPHY [facility] [address] [address] Alfred Lambert, ELECTRONIC CALIBRATION TECHNICIAN, GRAIN PROCESSOR [address] [address] Scheduled Discharge Disposition: Discharged to home or [...]
--- OUTSIDE RECORDS SUMMARY | 2023-11-04 21:55 | XMS_ITS | Encounter Summary ---
Author Name Unknown Organization [facility] Address [address] [place] [address] Phone Care Team Providers Care Time Buyer Name Role Phone Unavailable Primary Care Provider Unavailabl e Reason for Visit * Prior Authorization (Routine) - Closed Specialty Diagnoses / Procedures Referred By Contac t Referred To Contact Psych Rehab Diagnoses Bipolar II disorder () Trauma and stressor-related disorder Procedures MOTHER BABY ENROLLMENT Jazmine Potter, [facility] 701 [place] [address] [address] Referral ID Status Reason Start Date Expiration Date Visits Re quested Visits Authorized [id number] Closed 05/09/2023 06/24/2023 105 105 Encounter Details Date Type Department Care Team Description 06/06/2023 11:00 AM CDT Psych [facility]hab [facility] [address] [place] [address] [phone] Karoline Benson MD 701 [facility] S1 860 [place], [place] [phone] Dh, Mother Baby Discharge Disposition: Discharged to [...] LICSW - 06/06/2023 11:00 AM CDT Dept: [facility] Type of Service: Group Therapy Name of Group: Psychoeducation/Skills Group Provider/Group Store Shopper: Jazmine Potter LICSW Date of Service: 06/06/2023 Start Time: 11:15 AM Stop Time: 12:00 PM Number of Group Members Present: 4 Location of Service: Face to Face at [facility] ADOLESCENT MEDICINE SPECIALIST SERVICES PROVIDED (if applicable): No Session [...] Department Care Team Description 11/09/2023 4:30 PM DIRECTOR ALLIANCE MARKETING [facility] [address] [address] Alfred Lambert, METAL MOULDER'S ASSISTANT, ADMINISTRATIVE STAFF SUPERVISOR [address] [address] Scheduled Discharge Disposition: Discharged to home or [...]
--- OUTSIDE RECORDS SUMMARY | 2023-11-04 21:55 | XMS_ITS | Encounter Summary ---
Author Name Unknown Organization [facility] Address [address] [place] [address] Phone Care Team Providers Care Museum Attendant Name Role Phone Unavailable Primary Care Provider Unavailabl e Encounter Details Date Type Department Care Team Description 05/23/2023 10:00 AM CDT Psych Rehab [facility] [address] [place] [address] Ray Esposito MD [address] [address] Discharge Disposition: Discharged to home or self [...] MD - 05/23/2023 10:00 AM CDT 05/23/2023 [facility]baby [facility] ([facility]) Medication follow-up. Patient seen in-person today. Medical records reviewed (Epic). Recent clinical status discussed with therapy staff. Start time: 10:00 a.m. Finish time: 10:30 a.m. Interviewed in-person in [facility] today. Seen together with her baby [...] (prescription called in to [facility] in [place]) - continue Guanfacine (and Nifedipine basically on a prn basis). Ray Esposito M.D. documented in this encounter Miscellaneous Notes * Group Note - Jazmine Potter LICSW - 05/23/2023 10:00 AM CDT Dept: [facility] Type of Service: Group Therapy Name of Group: Psychoeducation/Skills Group Provider/Group Bean Sprout Grower: Jazmine Potter LICSW Date of Service: 05/23/2023 Start Time: 9:30 AM Stop Time: 10:15 AM Number of Group Members Present: 5 Location of Service: Face to Face at [facility] OIL WELL SERVICE OPERATOR HELPER SERVICES PROVIDED (if applicable): No [...] Department Care Team Description 11/09/2023 4:30 PM [facility] [address] [place] [address] Alfred Lambert, QUALITY ASSURANCE TESTER, ESCORT CAR DRIVER [address] [place] [address] Scheduled Discharge Disposition: Discharged to home or [...]
--- OUTSIDE RECORDS SUMMARY | 2023-11-04 21:56 | XMS_ITS | Encounter Summary ---
Author Name Unknown Organization [facility] Address [address] [place] [address] Phone Care Team Providers Care Linux Architect Name Role Phone Unavailable Primary Care Provider Unavailabl e Reason for Visit * Reason Comments Blood Pressure Check Encounter Details Date Type Department Care Team Description 05/18/2023 Documentation Only [facility] [address] [place] [address] [phone] Kiana Borges RN [facility] 701 [place] [address] Blood Pressure Check Social History Tobacco Use [...] Department Care Team Description 11/09/2023 4:30 PM FISH RECEIVER [facility] [address] [phone] Alfred Lambert, SAMPLE DISTRIBUTOR, BRUSHER WARP [address] [phone] Scheduled Discharge Disposition: Discharged to home or self care (routine discharge) documented as of this encounter Visit Diagnoses Not on filedocumented in this encounter Additional Health Concerns Assessment Noted Time PHQ-9 Depression Total Score: 12 023 3:14 PM CDT PHQ-2 Depression Total Score: 2 05/18/20 23 3:14 PM CDT documented as of this encounter
--- OUTSIDE RECORDS SUMMARY | 2023-11-04 21:56 | XMS_ITS | Encounter Summary ---
Author Name Unknown Organization [facility] Address [address] [place] [address] Phone Care Team Providers Care Project Coordinator Rn Name Role Phone Unavailable Primary Care Provider Unavailabl e Reason for Visit * Prior Authorization (Routine) - Closed Specialty Diagnoses / Procedures Referred By Contac t Referred To Contact Psych Rehab Diagnoses Bipolar II disorder () Trauma and stressor-related disorder Procedures MOTHER BABY ENROLLMENT Jazmine Potter, [facility] [address] [place] [address] [address] Referral ID Status Reason Start Date Expiration Date Visits Re quested Visits Authorized [id number] Closed 05/09/2023 06/24/2023 105 105 Encounter Details Date Type Department Care Team Description 05/10/2023 1:45 PM CDT [facility] [address] [place] [address] [phone] Karoline Benson MD 701 [facility] S1 860 [place], [place] [address] Dh, Mother Baby Discharge Disposition: Discharged to [...] LICSW - 05/10/2023 1:45 PM CDT Dept: [facility] Type of Service: Group Therapy Name of Group: Psychoeducation/Skills Group Provider/Group Analog Ic Design Engineer: Noy Chen LICSW Date of Service: 05/10/2023 Start Time: 1:45 PM Stop Time: 2:30 PM Number of Group Members Present: 5 Location of Service: Face to Face at [facility] FOREIGN AGENT SERVICES PROVIDED (if applicable): No Session Content (Intervention): The purpose of this group was to provide education through information-sharing and facilitated group discussion. Skills taught today included: Parenting Education (describe [place] of Security Parenting) The patient???s response to [...] Department Care Team Description 11/09/2023 4:30 PM LIVESTOCK BUYER [facility] [address] [address] Alfred Lambert, CORPORATE BUYER, THERMOMETER TESTER [address] [address] Scheduled Discharge Disposition: Discharged to home or self care (routine discharge) documented as of this encounter Visit Diagnoses Diagnosis Bipolar II disorder ()- Primary Other bipolar disorders Trauma and stressor-related disorder documented in this encounter
--- OUTSIDE RECORDS SUMMARY | 2023-11-04 21:56 | XMS_ITS | Encounter Summary ---
Author Name Unknown Organization [facility] Address [address] [place] [address] Phone Care Team Providers Care Chemical Tester Name Role Phone Unavailable Primary Care Provider Unavailabl e Reason for Visit * Prior Authorization (Routine) - Closed Specialty Diagnoses / Procedures Referred By Contac t Referred To Contact Psych Rehab Diagnoses Bipolar II disorder () Trauma and stressor-related disorder Procedures MOTHER BABY ENROLLMENT Jazmine Potter, [facility] [address] [place] [address] [address] Referral ID Status Reason Start Date Expiration Date Visits Re quested Visits Authorized [id number] Closed 05/09/2023 06/24/2023 105 105 Encounter Details Date Type Department Care Team Description 05/12/2023 12:30 PM CDT [facility] [address] [place] [address] [phone] Karoline Benson MD 701 [facility] S[address] 860 [place], [place] [address] Dh, Mother Baby Discharge Disposition: Discharged to [...] LICSW - 05/12/2023 12:30 PM CDT Dept: [facility] Type of Service: Group Therapy Name of Group: Psychoeducation/Skills Group Provider/Group Policy Services Representative: Noy Chen LICSW Date of Service: 05/12/2023 Start Time: 12:45 PM Stop Time: 1:30 PM Number of Group Members Present: 5 Location of Service: Face to Face at [facility] TRAFFIC SIGNAL MECHANIC SERVICES PROVIDED (if applicable): No Session Content (Intervention): The purpose of this group was to provide education through information-sharing and facilitated group discussion. Handouts were provided and covered in detail. Skills taught today included: Parenting Education (describe [place] of Security) The patient???s response to the intervention (including observations of the patient and their readiness to learn): Patient presented as engaged. The patient did demonstrate readiness to learn both verbally and non-verbally. The patient did demonstrate understanding of the material as evidenced by sharing own experience and participating in the group discussion. Barriers to learning: No Other observations: NA Noy Chen LICSW, 05/12/2023 1:35 PM documented in this encounter Plan of Treatment Upcoming Encounters Date Type Department Care Team Description 11/09/2023 4:30 PM FISHER [facility] [address] [address] Alfred Lambert, MANUFACTURING INSPECTOR, FINANCIAL SERVICES AGENT [address] [address] Scheduled Discharge Disposition: Discharged to home or [...]
--- OUTSIDE RECORDS SUMMARY | 2023-11-04 21:56 | XMS_ITS | Encounter Summary ---
Author Name Unknown Organization [facility] Address [address] [place] [address] Phone Care Team Providers Care Human Machine Interface Engineer Name Role Phone Unavailable Primary Care Provider Unavailabl e Reason for Visit * Prior Authorization (Routine) - Closed Specialty Diagnoses / Procedures Referred By Contac t Referred To Contact Psych Rehab Diagnoses Bipolar II disorder () Trauma and stressor-related disorder Procedures MOTHER BABY ENROLLMENT Jazmine Potter, [facility] [address] [place] [address] [address] Referral ID Status Reason Start Date Expiration Date Visits Re quested Visits Authorized [id number] Closed 05/09/2023 06/24/2023 105 105 Encounter Details Date Type Department Care Team Description 05/12/2023 1:30 PM CDT [facility] [address] [place] [address] [phone] Karoline Benson MD 701 [facility] S1 [address]60 [place], [place] [phone] Dh, Mother Baby Discharge Disposition: Discharged to [...] LICSW - 05/12/2023 1:30 PM CDT Dept: [facility] Type of Service: Group Therapy Name of Group: Psychoeducation/Skills Group Provider/Group Payroll Human Resources Assistant: Noy Chen LICSW Date of Service: 05/12/2023 Start Time: 1:45 PM Stop Time: 2:30 PM Number of Group Members Present: 5 Location of Service: Face to Face at [facility] GEOSCIENCES ASSOCIATE PROFESSOR SERVICES PROVIDED (if applicable): No Session Content [...] Department Care Team Description 11/09/2023 4:30 PM LEVEL VIAL GRINDER [facility] [address] [address] Alfred Lambert, DISTRIBUTION A CLASS LINEMAN, TOBACCO ACREAGE MEASURER [address] [address] Scheduled Discharge Disposition: Discharged to home or [...]
--- OUTSIDE RECORDS SUMMARY | 2023-11-04 21:56 | XMS_ITS | Encounter Summary ---
Author Name Unknown Organization [facility] Address [address] [place] [address] Phone Care Team Providers Care Clock And Watch Hands Mounter Name Role Phone Unavailable Primary Care Provider Unavailabl e Reason for Visit * Prior Authorization (Routine) - Closed Specialty Diagnoses / Procedures Referred By Contac t Referred To Contact Psych Rehab Diagnoses Bipolar II disorder () Trauma and stressor-related disorder Procedures MOTHER BABY ENROLLMENT Jazmine Potter, [facility] 701 [place] [address] [address] Referral ID Status Reason Start Date Expiration Date Visits Re quested Visits Authorized [id number] Closed 05/09/2023 06/24/2023 105 105 Encounter Details Date Type Department Care Team Description 05/12/2023 10:15 AM CDT [facility] [address] [place] [address] [phone] Karoline Benson MD 701 [facility] S1 860 [place], [place] [phone] Dh, Mother Baby Discharge Disposition: Discharged to [...] LPCC - 05/12/2023 10:15 AM CDT Dept: [facility] Type of Service: Group Therapy Name of Group: Psychotherapy Process Group Provider/Group Trestleman: Claire Workman LPCC Date of Service: 05/12/2023 Start Time: 10:15 AM Stop Time: 11:00 AM Number of Group Members Present: 5 Location of Service: Face to Face at [facility] Session Content of Today's Group: [...] Department Care Team Description 11/09/2023 4:30 PM PELT INSPECTOR [facility] [address] [place] [address] Alfred Lambert, CRITICAL CARE CLINICAL NURSE SPECIALIST, CLOTH MEASURER MACHINE [address] [address] Scheduled Discharge Disposition: Discharged to home or [...]
--- OUTSIDE RECORDS SUMMARY | 2023-11-04 21:56 | XMS_ITS | Encounter Summary ---
Author Name Unknown Organization [facility] Address [address] [place] [address] Phone Care Team Providers Care Enginehouse Brakeman Name Role Phone Unavailable Primary Care Provider Unavailabl e Reason for Visit * Reason Comments Mother Baby - Individual Psychotherapy * Prior Authorization (Routine) - Closed Specialty Diagnoses / Procedures Referred By Bernardo t Referred To Contact Psych Rehab Diagnoses Bipolar II disorder () Trauma and stressor-related disorder Procedures MOTHER BABY ENROLLMENT Jazmine Potter, [facility] [address] [place] [address] [address] Referral ID Status Reason Start Date Expiration Date Visits Re quested Visits Authorized [id number] Closed 05/09/2023 06/24/2023 105 105 Encounter Details Date Type Department Care Team Description 05/18/2023 2:30 PM CDT Psych Rehab [facility] [address] [place] [address] [phone] Claire Workman, [facility] [address] [place] [address] [phone] Mother Baby - Individual Psychotherapy Discharge Disposition: [...] this encounter Progress Notes * Claire Workman, [facility] - 05/18/2023 2:30 PM CDT [facility] Progress Note Date of Service: 05/18/2023 Start Time: 2:30 pm Stop Time: 3 pm Location of Visit: Face to Face at [facility] Participants in this Visit other than the [...] Department Care Team Description 11/09/2023 4:30 PM BIODIESEL ENGINE SPECIALIST [facility] [address] [address] Alfred Lambert, DISH PERSON, HAT CONDITIONER [address] [address] Scheduled Discharge Disposition: Discharged to home or [...]
--- OUTSIDE RECORDS SUMMARY | 2023-11-04 21:56 | XMS_ITS | Encounter Summary ---
Author Name Unknown Organization [facility] Address [address] [place] [address] Phone Care Team Providers Care Mannequin Decorator Name Role Phone Unavailable Primary Care Provider Unavailabl e Reason for Visit * Prior Authorization (Routine) - Closed Specialty Diagnoses / Procedures Referred By Contac t Referred To Contact Psych Rehab Diagnoses Bipolar II disorder () Trauma and stressor-related disorder Procedures MOTHER BABY ENROLLMENT Jazmine Potter, [facility] [address] [place] [address] [address] Referral ID Status Reason Start Date Expiration Date Visits Re quested Visits Authorized [id number] Closed 05/09/2023 06/24/2023 105 105 Encounter Details Date Type Department Care Team Description 05/16/2023 10:15 AM CDT Psych [facility] [address] [place] [address] [phone] Karoline Benson MD 701 [facility] S1 860 [place], [place] [address] Dh, Mother Baby Discharge Disposition: Discharged to [...] LICSW - 05/16/2023 10:15 AM CDT Dept: [facility] Type of Service: Group Therapy Name of Group: Psychotherapy Process Group Provider/Group Food Safety Specialist: Jazmine Potter LICSW Date of Service: 05/16/2023 Start Time: 10:15 AM Stop Time: 11:00 AM Number of Group Members Present: 6 Location of Service: Face to Face at [facility] CONVEX GRINDER OPERATOR SERVICES PROVIDED (if applicable): No Session [...] Department Care Team Description 11/09/2023 4:30 PM DEVOPS SOLUTIONS ARCHITECT [facility] [address] [address] Alfred Lambert, ROTARY DRILL OPERATOR HELPER, NEUROPSYCHOLOGY DIRECTOR [address] [address] Scheduled Discharge Disposition: Discharged to home or [...]
--- OUTSIDE RECORDS SUMMARY | 2023-11-04 21:56 | XMS_ITS | Encounter Summary ---
Author Name Unknown Organization [facility] Address [address] [place] [address] Phone Care Team Providers Care Directional Driller Name Role Phone Unavailable Primary Care Provider Unavailabl e Reason for Visit * Reason Comments Psych Medication Management Encounter Details Date Type Department Care Team Description 05/16/2023 2:30 PM CDT Psych Rehab [facility] 701 [place], [place] [address] Giovana Benson MD 701 [facility] S1 860 [place], [place] [address] Psych Medication Management Discharge Disposition: Discharged to [...] original note were not included. Mother Baby [facility], Psychiatry Visit Started the [facility] on: 05/09/23 Merry Rooney is a 22 y.o. mother of baby (Latha b. 05/03/23) and 2 year old son (Chuy). Referred by [facility] Cultural Context: white, Danish and Latvian Pronouns: she/her/hers; Supports: Jesús -- supportive Therapist: ; PCP: ; OB-BOG CUTTER: Antonio Ob; Crystal Calibrator: Feeding Method: breast and bottle feeding with [...] symptoms and possible preeclampsia leading to transferto [place] ICU. Seen by psychiatry (Dr Ortiz) at [place], discontinued from her sertraline and started on [...] individual and group therapy process in the [facility]. 6) Review old records. 7) Contact collateral [...] when she was 4. Mother lived in [place]. Mother's place was safe space but she [...] reports the following spiritual and/or cultural history: Danish and Latvian background Relationship to her partner/father/co-parent of the [...] Department Care Team Description 11/09/2023 4:30 PM BAT LATHE OPERATOR [facility] [address] [address] Alfred Lambert, COMMERCIAL PROJECT MANAGER, WEB SPECIALIST [address] [address] Scheduled Discharge Disposition: Discharged to home or self care (routine discharge) documented as of this encounter Visit Diagnoses Not on filedocumented in this encounter Additional Health Concerns Assessment Noted Time PHQ-9 Depression Total Score: 12 023 3:56 PM CDT PHQ-2 Depression Total Score: 1 05/11/20 23 3:56 PM CDT documented as of this encounter
--- OUTSIDE RECORDS SUMMARY | 2023-11-04 21:56 | XMS_ITS | Encounter Summary ---
Author Name Unknown Organization [facility] Address [address] [place] [address] Phone Care Team Providers Care Mining Machinery Assembler Name Role Phone Unavailable Primary Care Provider Unavailabl e Reason for Visit * Prior Authorization (Routine) - Closed Specialty Diagnoses / Procedures Referred By Contac t Referred To Contact Psych Rehab Diagnoses Bipolar II disorder () Trauma and stressor-related disorder Procedures MOTHER BABY ENROLLMENT Jazmine Potter, [facility] [address] [place] [address] [address] Referral ID Status Reason Start Date Expiration Date Visits Re quested Visits Authorized [id number] Closed 05/09/2023 06/24/2023 105 105 Encounter Details Date Type Department Care Team Description 05/12/2023 9:30 AM CDT Psych [facility] [address] [place] [address] [phone] Karoline Benson MD 701 [facility] S1 860 [place], [place] [phone] Dh, Mother Baby Discharge Disposition: Discharged to [...] LPCC - 05/12/2023 9:30 AM CDT Dept: [facility] Type of Service: Group Therapy Name of Group: Psychoeducation/Skills Group Provider/Group Vehicle Body Maker: Claire Workman LPCC Date of Service: 05/12/2023 Start Time: 9:30 AM Stop Time: 10:15 AM Number of Group Members Present: 5 Location of Service: Face to Face at [facility] Session Content (Intervention): Welcomed any new [...] Department Care Team Description 11/09/2023 4:30 PM UNIT OPERATOR [facility] [address] [address] Alfred Lambert, PUNCH FINISHER, GLOBAL COMMODITY MANAGER [address] [address] Scheduled Discharge Disposition: Discharged to home or [...]
--- OUTSIDE RECORDS SUMMARY | 2023-11-04 21:56 | XMS_ITS | Encounter Summary ---
Author Name Unknown Organization [facility] Address [address] [place] [address] Phone Care Team Providers Care Safety Sealer Name Role Phone Unavailable Primary Care Provider Unavailabl e Reason for Visit * Prior Authorization (Routine) - Closed Specialty Diagnoses / Procedures Referred By Contac t Referred To Contact Psych Rehab Diagnoses Bipolar II disorder () Trauma and stressor-related disorder Procedures MOTHER BABY ENROLLMENT Jazmine Potter, [facility] [address] [place] [address] [address] Referral ID Status Reason Start Date Expiration Date Visits Re quested Visits Authorized [id number] Closed 05/09/2023 06/24/2023 105 105 Encounter Details Date Type Department Care Team Description 05/18/2023 9:30 AM CDT [facility] [address] [place] [phone] Karoline Benson MD 701 [facility] S1 860 [place], [place] [phone] Dh, Mother Baby Discharge Disposition: Discharged to [...] LPCC - 05/18/2023 9:30 AM CDT Dept: [facility] Type of Service: Group Therapy Name of Group: Psychoeducation/Skills Group Provider/Group Hoop Puncher: Claire Workman LPCC Date of Service: 05/18/2023 Start Time: 9:30 AM Stop Time: 10:15 AM Number of Group Members Present: 4 Location of Service: Face to Face at [facility] Session Content (Intervention): Welcomed any new patients [...] Barriers to learning: No Other observations: N/A Cliare Workman LPCC, 05/18/2023 11:54 AM documented in this encounter Plan of Treatment Upcoming Encounters Date Type Department Care Team Description 11/09/2023 4:30 PM END USER SUPPORT SPECIALIST [facility] [address] [address] Alfred Lambert, COMPUTER NUMERIC CONTROL SETTER, PEANUT ROASTER [address] [phone] Scheduled Discharge Disposition: Discharged to home or [...]
--- OUTSIDE RECORDS SUMMARY | 2023-11-04 21:56 | XMS_ITS | Encounter Summary ---
Author Name Unknown Organization [facility] Address [address] [place] [address] Phone Care Team Providers Care Bpm Solution Architect Name Role Phone Unavailable Primary Care Provider Unavailabl e Reason for Visit * Prior Authorization (Routine) - Closed Specialty Diagnoses / Procedures Referred By Contac t Referred To Contact Psych Rehab Diagnoses Bipolar II disorder () Trauma and stressor-related disorder Procedures MOTHER BABY ENROLLMENT Jazmine Potter, [facility] [address] [place] [address] [address] Referral ID Status Reason Start Date Expiration Date Visits Re quested Visits Authorized [id number] Closed 05/09/2023 06/24/2023 105 105 Encounter Details Date Type Department Care Team Description 05/11/2023 12:30 PM CDT [facility] [address] [place] [address] [phone] Karoline Benson MD 701 [facility] S1 [address]60 [place], [place] [phone] Dh, Mother Baby Discharge Disposition: Discharged to [...] OTR/L - 05/11/2023 12:30 PM CDT Dept: [facility] Type of Service: Group Therapy Name of Group: Wellness Group Provider/Group Telehealth Coordinator: Alisha Hardy OTR/L Date of Service: 05/11/2023 Start Time: 12:45 PM Stop Time: 1:30 PM Number of Group Members Present: 6 Location of Service: Face to Face at [facility] FIBERGLASSER SERVICES PROVIDED (if applicable): No Session Content [...] Department Care Team Description 11/09/2023 4:30 PM INDUCTION MACHINE SETTER [facility] [address] [address] Alfred Lambert, REEL FILM INSPECTOR, OVERNIGHT CAREGIVER [address] [address] Scheduled Discharge Disposition: Discharged to home or [...]
--- OUTSIDE RECORDS SUMMARY | 2023-11-04 21:56 | XMS_ITS | Encounter Summary ---
Author Name Unknown Organization [facility] Address [address] [place] [address] Phone Care Team Providers Care Facilities Maintenance Manager Name Role Phone Unavailable Primary Care Provider Unavailabl e Reason for Visit * Prior Authorization (Routine) - Closed Specialty Diagnoses / Procedures Referred By Contac t Referred To Contact Psych Rehab Diagnoses Bipolar II disorder () Trauma and stressor-related disorder Procedures MOTHER BABY ENROLLMENT Jazmine Potter, [facility] 701 [place] [address] [address] Referral ID Status Reason Start Date Expiration Date Visits Re quested Visits Authorized [id number] Closed 05/09/2023 06/24/2023 105 105 Encounter Details Date Type Department Care Team Description 05/18/2023 10:15 AM CDT [facility] [address] [place] [address] [phone] Karoline Benson MD 701 [facility] S1 860 [place], [place] [phone] Dh, Mother Baby Discharge Disposition: Discharged to [...] LPCC - 05/18/2023 10:15 AM CDT Dept: [facility] Type of Service: Group Therapy Name of Group: Psychotherapy Process Group Provider/Group Samples And Repairs Preparer: Claire Workman LPCC Date of Service: 05/18/2023 Start Time: 10:15 AM Stop Time: 11:00 AM Number of Group Members Present: 5 Location of Service: Face to Face at [facility] Session Content of Today's Group: [...] Department Care Team Description 11/09/2023 4:30 PM [facility] [address] [place] [address] Alfred Lambert, COMPRESSOR OPERATOR PORTABLE, BATTER OUT [address] [address] Scheduled Discharge Disposition: Discharged to home or [...]
--- OUTSIDE RECORDS SUMMARY | 2023-11-04 21:56 | XMS_ITS | Encounter Summary ---
Author Name Unknown Organization [facility] Address [address] [place] [address] Phone Care Team Providers Care Fixed Wing Aircraft Crew Chief Name Role Phone Unavailable Primary Care Provider Unavailabl e Reason for Visit * Prior Authorization (Routine) - Closed Specialty Diagnoses / Procedures Referred By Contac t Referred To Contact Psych Rehab Diagnoses Bipolar II disorder () Trauma and stressor-related disorder Procedures MOTHER BABY ENROLLMENT Jazmine Potter, [facility] [address] [place] [address] [address] Referral ID Status Reason Start Date Expiration Date Visits Re quested Visits Authorized [id number] Closed 05/09/2023 06/24/2023 105 105 Encounter Details Date Type Department Care Team Description 05/18/2023 12:30 PM CDT [facility] [address] [place] [address] [phone] Karoline Benson MD 701 [facility] S1 [address]60 [place], [place] [phone] Dh, Mother Baby Discharge Disposition: Discharged to [...] OTR/L - 05/18/2023 12:30 PM CDT Dept: [facility] Type of Service: Group Therapy Name of Group: Wellness Group Provider/Group Resource Manager: Alisha Hardy OTR/L Date of Service: 05/18/2023 Start Time: 12:45 PM Stop Time: 1:30 PM Number of Group Members Present: 6 Location of Service: Face to Face at [facility] EMPLOYMENT SERVICES DIRECTOR SERVICES PROVIDED (if applicable): No Session Content [...] Department Care Team Description 11/09/2023 4:30 PM VICE PRESIDENT QUALITY IMPROVEMENT [facility] [address] [address] Alfred Lambert, CHEF FRENCH, PATIENT RELATIONS SPECIALIST [address] [address] Scheduled Discharge Disposition: Discharged to home or [...]
--- OUTSIDE RECORDS SUMMARY | 2023-11-04 21:56 | XMS_ITS | Encounter Summary ---
Author Name Unknown Organization [facility] Address [address] [place] [address] Phone Care Team Providers Care Industrial Analyst Name Role Phone Unavailable Primary Care Provider Unavailabl e Reason for Visit * Reason Onset Date Comments Psych Medication Management 05/18/2023 Encounter Details Date Type Department Care Team Description 05/18/2023 11:00 AM CDT Psych Rehab [facility] [address] [place] [address] Karissa Mejia MD [address] [place] [phone] Psych Medication Management Discharge Disposition: Discharged to [...] 2 year old son (Chuy). Referred by [facility] Cultural Context: white, Spanish and Gambian Pronouns: she/her/hers; Supports: Espinosa -- supportive Therapist: ; PCP: ; OB-BLUING OVEN TENDER: Antonio Ob; Russian Rubber: Feeding Method: breast and bottle feeding with [...] possible pr eeclampsia leading to transfer to [facility]. Seen by psychiatry (Dr Ortiz) at [facility], discontinued from her sertraline and started on [...] formula) 3) LABS: Will review labs in [facility] 4) Continue to monitor symptoms 5) Engage patient in individual and group therapy process in the [facility]. 6) Review old records. 7) Contact [...] when she was 4. Mother lived in [place]. 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 Legal: no had involvement with the legal system. The patient reports the following spiritual and/or cultural history: Spanish and Gambian background Relationship to her partner/father/co-parent of the [...] Department Care Team Description 11/09/2023 4:30 PM SENIOR ASIC DESIGN ENGINEER [facility] [address] [address] Alfred Lambert, REDIPPER, ACOUSTIC ENGINEER [address] [address] Scheduled Discharge Disposition: Discharged to home or [...]
--- OUTSIDE RECORDS SUMMARY | 2023-11-04 21:56 | XMS_ITS | Encounter Summary ---
Author Name Unknown Organization [facility] Address [address] [place] [address] Phone Care Team Providers Care Mechanical Drawing Teacher Name Role Phone Unavailable Primary Care Provider Unavailabl e Reason for Visit * Prior Authorization (Routine) - Closed Specialty Diagnoses / Procedures Referred By Contac t Referred To Contact Psych Rehab Diagnoses Bipolar II disorder () Trauma and stressor-related disorder Procedures MOTHER BABY ENROLLMENT Jazmine Potter, [facility] [address] [place] [address] [address] Referral ID Status Reason Start Date Expiration Date Visits Re quested Visits Authorized [id number] Closed 05/09/2023 06/24/2023 105 105 Encounter Details Date Type Department Care Team Description 05/16/2023 12:30 PM CDT [facility] [address] [place] [address] [phone] Karoline Benson MD 701 [facility] S1 860 [place], [place] [phone] Dh, Mother Baby Discharge Disposition: Discharged to [...] - 05/16/2023 12:30 PM CDT Dept: [facility] Type of Service: Group Therapy Name of Group: Wellness Group Provider/Group Remediation Technician: Alisha Hardy OTR/L Date of Service: 05/16/2023 Start Time: 12:45 PM Stop Time: 1:30 PM Number of Group Members Present: 6 Location of Service: Face to Face at [facility] FLASK HANDLER SERVICES PROVIDED (if applicable): No Session Content [...] Department Care Team Description 11/09/2023 4:30 PM MENTAL HEALTH PROFESSIONAL [facility] [address] [address] Alfred Lambert, STORAGE CONSULTANT, FAMILY SOCIOLOGIST [address] [address] Scheduled Discharge Disposition: Discharged to home or [...]
--- OUTSIDE RECORDS SUMMARY | 2023-11-04 21:56 | XMS_ITS | Encounter Summary ---
Author Name Unknown Organization [facility] Address [address] [place] [address] Phone Care Team Providers Care Tar Boiler Name Role Phone Unavailable Primary Care Provider Unavailabl e Reason for Visit * Prior Authorization (Routine) - Closed Specialty Diagnoses / Procedures Referred By Contac t Referred To Contact Psych Rehab Diagnoses Bipolar II disorder () Trauma and stressor-related disorder Procedures MOTHER BABY ENROLLMENT Jazmine Potter, [facility] 701 [place] [address] [place] [address] [address] Referral ID Status Reason Start Date Expiration Date Visits Re quested Visits Authorized [id number] Closed 05/09/2023 06/24/2023 105 105 Encounter Details Date Type Department Care Team Description 05/17/2023 11:00 AM CDT [facility] [address] [place] [address] [phone] Karoline Benson MD 701 [facility] S1 [address]60 [place], [place] [phone] Dh, Mother Baby Discharge Disposition: Discharged to [...] PT - 05/17/2023 11:00 AM CDT Dept: [facility] Type of Service: Group Therapy Provider/Group Nitroglycerin Separator Operator: Sara Cunha PT Date of Service: 05/17/2023 Start Time: 11:00 AM Stop Time: 12:00 PM Number of Group Members Present: 4 Name of Group: Movement Location of Service: Face to Face at a [facility] SIMULATION TECH SERVICES PROVIDED (if applicable): No Session Content (Intervention) (including goal/intended outcome): Mindful Movement. Encouraged group members to participate in mind-body skills facilitated by [facility] Trauma-Informed Yoga providers. Trauma-sensitive [...] Department Care Team Description 11/09/2023 4:30 PM MERCHANT MARINER [facility] [address] [address] Alfred Lambert, BOW TACKER, MANAGER RESPIRATORY [address] [address] Scheduled Discharge Disposition: Discharged to home or self care (routine discharge) documented as of this encounter Visit Diagnoses Diagnosis Trauma and stressor-related disorder- Primary documented in this encounter Additional Health Concerns Assessment Noted Time PHQ-9 Depression Total Score: 12 08/02/2 023 3:56 PM CDT PHQ-2 Depression Total Score: 1 05/11/20 23 3:56 PM CDT documented as of this encounter
--- OUTSIDE RECORDS SUMMARY | 2023-11-04 21:56 | XMS_ITS | Encounter Summary ---
Author Name Unknown Organization [facility] Address [address] [place] [address] Phone Care Team Providers Care Pararescue Craftsman Name Role Phone Unavailable Primary Care Provider Unavailabl e Reason for Visit * Prior Authorization (Routine) - Closed Specialty Diagnoses / Procedures Referred By Contac t Referred To Contact Psych Rehab Diagnoses Bipolar II disorder () Trauma and stressor-related disorder Procedures MOTHER BABY ENROLLMENT Jazmine Potter, [facility] 701 [place] [address] [address] Referral ID Status Reason Start Date Expiration Date Visits Re quested Visits Authorized [id number] Closed 05/09/2023 06/24/2023 105 105 Encounter Details Date Type Department Care Team Description 05/17/2023 10:15 AM CDT [facility] [address] [place] [address] [phone] Karoline Benson MD 701 [facility] S1 860 [place], [place] [phone] Dh, Mother Baby Discharge Disposition: Discharged to [...] LICSW - 05/17/2023 10:15 AM CDT Dept: [facility] Type of Service: Group Therapy Name of Group: Psychotherapy Process Group Provider/Group Credit Collections Rep: Jazmine Potter LICSW Date of Service: 05/17/2023 Start Time: 10:15 AM Stop Time: 11:00 AM Number of Group Members Present: 7 Location of Service: Face to Face at [facility] DICE PERSON SERVICES PROVIDED (if applicable): No Session Content [...] Department Care Team Description 11/09/2023 4:30 PM APRON TRIMMER [facility] [address] [phone] Alfred Lambert, ELECTRICAL TECHNOLOGY INSTRUCTOR, MANAGER INTERNET [address] [phone] Scheduled Discharge Disposition: Discharged to home or [...]
--- OUTSIDE RECORDS SUMMARY | 2023-11-04 21:56 | XMS_ITS | Encounter Summary ---
Author Name Unknown Organization [facility] Address 701 [place] [address] Phone Care Team Providers Care Industrial Equipment Wirer Name Role Phone Unavailable Primary Care Provider Unavailabl e Reason for Visit * Reason Comments Psych Rehab Health Screen Encounter Details Date Type Department Care Team Description 05/10/2023 Documentation Only [facility] 701 [place], [place] [address] Kiana Borges RN [facility] 701 [place] [address] Psych Rehab Health Screen Social History Tobacco [...] the patient was reviewedand updated during a [id number] meeting. The problem list will be updated as needed and the procedure for screening, assessment, and triage will be followed. See plan, below. Primary Care Provider: Getting established at [facility] Date of last PCP visit: 10/2021 Primary [...] three following questions. Difficult to pay for children's service worker? X 2. Difficult to pay your bills? [...] home. Pt verbalized an understanding and thanked designer/writer. Healthcare Directive on File: No Healthcare Directive [...] Department Care Team Description 11/09/2023 4:30 PM SHOE ASSOCIATE [facility] [address] [address] Alfred Lambert, FARMWORKER LIVESTOCK, SONG AND DANCE PERFORMER [address] [address] Scheduled Discharge Disposition: Discharged to home or self care (routine discharge) documented as of this encounter Visit Diagnoses Not on filedocumented in this encounter
--- OUTSIDE RECORDS SUMMARY | 2023-11-04 21:56 | XMS_ITS | Encounter Summary ---
Author Name Unknown Organization [facility] [place] Address [address] [place] [address] Phone Care Team Providers Care Tool Carrier Name Role Phone Unavailable Primary Care Provider Unavailabl e Reason for Visit * Prior Authorization (Routine) - Closed Specialty Diagnoses / Procedures Referred By Contac t Referred To Contact Psych Rehab Diagnoses Bipolar II disorder () Trauma and stressor-related disorder Procedures MOTHER BABY ENROLLMENT Jazmine Potter, [facility] [address] [place] [address] [address] Referral ID Status Reason Start Date Expiration Date Visits Re quested Visits Authorized [id number] Closed 05/09/2023 06/24/2023 105 105 Encounter Details Date Type Department Care Team Description 05/18/2023 1:45 PM CDT [facility] [address] [place] [address] [phone] Karoline Benson MD 701 [facility] S1 860 [place], [place] [phone] Dh, Mother Baby Discharge Disposition: Discharged to [...] LICSW - 05/18/2023 1:45 PM CDT Dept: [facility] Type of Service: Group Therapy Name of Group: Psychoeducation/Skills Group Provider/Group Machine Package Sealer: Jazmine Potter LICSW Date of Service: 05/18/2023 Start Time: 1:45 PM Stop Time: 2:30 PM Number of Group Members Present: 5 Location of Service: Face to Face at [facility] COUNSELOR AID SERVICES PROVIDED (if applicable): No Session Content [...] Department Care Team Description 11/09/2023 4:30 PM LEATHER DRESSER [facility] [address] [address] Alfred Lambert, SHIFT LEADER, REHABILITATION ATTENDANT [address] [place] [address] Scheduled Discharge Disposition: Discharged to home or [...]
--- OUTSIDE RECORDS SUMMARY | 2023-11-04 21:56 | XMS_ITS | Encounter Summary ---
Author Name Unknown Organization [facility] Address [address] [place] [address] Phone Care Team Providers Care Exerciser Name Role Phone Unavailable Primary Care Provider Unavailabl e Encounter Details Date Type Department Care Team Description 05/13/2023 9:00 AM CDT Telemedicine Psych Rehab [facility] 701 [place], [place] [phone] Karoline Benson MD 701 [facility] S1 860 [place] [address] Left without seen Discharge Disposition: Discharged to [...] Department Care Team Description 11/09/2023 4:30 PM [facility] [address] [phone] Alfred Lambert APRN, CHILD CARE ATTENDANT [employer]CHO[employer] [address] [place] [address] Scheduled Discharge Disposition: Discharged to home or self care (routine discharge) documented as of this encounter Visit Diagnoses Not on filedocumented in this encounter Additional Health Concerns Assessment Noted Time PHQ-9 Depression Total Score: 12 023 3:56 PM CDT PHQ-2 Depression Total Score: 1 05/11/20 23 3:56 PM CDT documented as of this encounter
--- OUTSIDE RECORDS SUMMARY | 2023-11-04 21:56 | XMS_ITS | Encounter Summary ---
Author Name Unknown Organization [facility] Address 701 [facility] [place] [address] Phone Care Team Providers Care Die Designer Name Role Phone Unavailable Primary Care Provider Unavailabl e Reason for Visit * Reason Comments Mother Baby - Individual Psychotherapy Encounter Details Date Type Department Care Team Description 05/11/2023 2:30 PM CDT Psych Rehab [facility] 701 [place], [place] [phone] Claire Workman, [facility] 701 [place], [place] [phone] Mother Baby - Individual Psychotherapy Discharge Disposition: [...] this encounter Progress Notes * [facility] 05/11/2023 2:30 PM CDT [facility] Progress Note for Treatment Planning Sessions Start Time: 2:30 pm Stop Time: 2:55 pm Date of Service: 05/11/2023 Type of Therapy: Individual, Modality: Emotion Focused Therapy Type of Treatment Plan: Initial Location of Visit: Face to Face at [facility] Participants in this Visit other than the [...] Department Care Team Description 11/09/2023 4:30 PM STUDENT SUPPORT COUNSELOR [facility] [address] [phone] Alfred Lambert, SIDE FRAMER, ELECTRIC TRACK SWITCH MAINTAINER [address] [phone] Scheduled Discharge Disposition: Discharged to home or [...]
--- OUTSIDE RECORDS SUMMARY | 2023-11-04 21:56 | XMS_ITS | Encounter Summary ---
Author Name Unknown Organization [facility] Address [address] [place] [address] Phone Care Team Providers Care Tube Test Technician Name Role Phone Unavailable Primary Care Provider Unavailabl e Reason for Visit * Prior Authorization (Routine) - Closed Specialty Diagnoses / Procedures Referred By Contac t Referred To Contact Psych Rehab Diagnoses Bipolar II disorder () Trauma and stressor-related disorder Procedures MOTHER BABY ENROLLMENT Jazmine Potter, [facility] [address] [place] [address] [address] Referral ID Status Reason Start Date Expiration Date Visits Re quested Visits Authorized [id number] Closed 05/09/2023 06/24/2023 105 105 Encounter Details Date Type Department Care Team Description 05/16/2023 1:45 PM CDT [facility] [address] [place] [address]995 Karoline Benson MD 701 [facility] S1 860 [place], [place] [phone] Dh, Mother Baby Discharge Disposition: Discharged to [...] LICSW - 05/16/2023 1:45 PM CDT Dept: [facility] Type of Service: Group Therapy Name of Group: Psychoeducation/Skills Group Provider/Group Protector Plate Attacher: Jazmine Potter LICSW Date of Service: 05/16/2023 Start Time: 1:45 PM Stop Time: 2:30 PM Number of Group Members Present: 7 Location of Service: Face to Face at [facility] LAYOUT ARTIST SERVICES PROVIDED (if applicable): No Session Content [...] Department Care Team Description 11/09/2023 4:30 PM GOLD LEAF GILDER [facility] [address] [address] Alfred Lambert, BRICK BURNER HEAD, DIRECTOR OF LABORATORY OPERATIONS [address] [address] Scheduled Discharge Disposition: Discharged to home or [...]
--- OUTSIDE RECORDS SUMMARY | 2023-11-04 21:56 | XMS_ITS | Encounter Summary ---
Author Name Unknown Organization [facility] Address [address] [place] [address] Phone Care Team Providers Care Carbonator Name Role Phone Unavailable Primary Care Provider Unavailabl e Reason for Visit * Prior Authorization (Routine) - Closed Specialty Diagnoses / Procedures Referred By Contac t Referred To Contact Psych Rehab Diagnoses Bipolar II disorder () Trauma and stressor-related disorder Procedures MOTHER BABY ENROLLMENT Jazmine Potter, [facility] 701 [place] [address] [address] Referral ID Status Reason Start Date Expiration Date Visits Re quested Visits Authorized [id number] Closed 05/09/2023 06/24/2023 105 105 Encounter Details Date Type Department Care Team Description 05/12/2023 11:00 AM CDT [facility] [address] [place] [address] [phone] Karoline Benson MD 701 [facility] S1 860 [place], [place] [phone] Dh, Mother Baby Discharge Disposition: Discharged to [...] PT - 05/12/2023 11:00 AM CDT Dept: [facility] Type of Service: Group Therapy Provider/Group Credit Union Teller: Sara Cunha PT Date of Service: 05/12/2023 Start Time: 11:00 AM Stop Time: 12:00 PM Number of Group Members Present: 5 Name of Group: Movement Location of Service: Face to Face at a [facility] SECURITY TEAM LEAD SERVICES PROVIDED (if applicable): No Session Content (Intervention) (including goal/intended outcome): Mindful Movement. Encouraged group members to participate in mind-body skills facilitated by [facility] Trauma-Informed Yoga providers. Trauma-sensitive mind-body skills and [...] Department Care Team Description 11/09/2023 4:30 PM DISASTER RECOVERY SPECIALIST [facility] [address] [place] [address] Alfred Lambert, TITLE SPECIALIST, RN ORTHO [address] [address] Scheduled Discharge Disposition: Discharged to home or [...]
--- OUTSIDE RECORDS SUMMARY | 2023-11-04 21:57 | XMS_ITS | Encounter Summary ---
Author Name Unknown Organization [facility] Address [address] [place] [address] Phone Care Team Providers Care Lodging Facilities Attendant Name Role Phone Unavailable Primary Care Provider Unavailabl e Reason for Visit * Prior Authorization (Routine) - Closed Specialty Diagnoses / Procedures Referred By Contac t Referred To Contact Psych Rehab Diagnoses Bipolar II disorder () Trauma and stressor-related disorder Procedures MOTHER BABY ENROLLMENT Jazmine Potter, [facility] [address] [place] [address] [place] [address] [address] Referral ID Status Reason Start Date Expiration Date Visits Re quested Visits Authorized [id number] Closed 05/09/2023 06/24/2023 105 105 Encounter Details Date Type Department Care Team Description 05/10/2023 9:30 AM CDT [facility] [address] [place] [phone] Karoline Benson MD 701 [facility] S1 860 [place], [place] [phone] Dh, Mother Baby Discharge Disposition: Discharged to [...] LICSW - 05/10/2023 9:30 AM CDT Dept: [facility] Type of Service: Group Therapy Name of Group: Psychoeducation/Skills Group Provider/Group Hotel Sales Manager: Jazmine Potter LICSW Date of Service: 05/10/2023 Start Time: 9:30 AM Stop Time: 10:15 AM Number of Group Members Present: 4 Location of Service: Face to Face at [facility] [place] [facility] TRANSPORTATION MECHANIC SERVICES PROVIDED (if applicable): No Session [...] Department Care Team Description 11/09/2023 4:30 PM SALES STOCK ASSOCIATE [facility] [address] [address] Alfred Lambert, MOLDED GRID AND PARTS INSPECTOR, THEATER TEACHER [address] [address] Scheduled Discharge Disposition: Discharged to home or self care (routine discharge) documented as of this encounter Visit Diagnoses Diagnosis Bipolar II disorder ()- Primary Other bipolar disorders Trauma and stressor-related disorder documented in this encounter
--- OUTSIDE RECORDS SUMMARY | 2023-11-04 21:57 | XMS_ITS | Encounter Summary ---
Author Name Unknown Organization [facility] [place] Address [address] [place] [address] Phone Care Team Providers Care House Mover Name Role Phone Unavailable Primary Care Provider Unavailabl e Reason for Visit * Reason Comments Blood Pressure Check Encounter Details Date Type Department Care Team Description 05/09/2023 Documentation Only [facility] [address] [place] [address] [phone] Kiana Borges RN [facility] 701 [place] [address] Blood Pressure Check Social History Tobacco Use [...] Department Care Team Description 11/09/2023 4:30 PM PROGRESS MAN [facility] [address] [phone] Alfred Lambert, CDA TEACHER, HOTEL OFFICE MANAGER [address] [phone] Scheduled Discharge Disposition: Discharged to home or self care (routine discharge) documented as of this encounter Visit Diagnoses Not on filedocumented in this encounter
--- OUTSIDE RECORDS SUMMARY | 2023-11-04 21:57 | XMS_ITS | Encounter Summary ---
Author Name Unknown Organization [facility] Address [address] [place] [address] Phone Care Team Providers Care Servicer Travel Trailers Name Role Phone Unavailable Primary Care Provider Unavailabl e Reason for Visit * Prior Authorization (Routine) - Closed Specialty Diagnoses / Procedures Referred By Contac t Referred To Contact Psych Rehab Diagnoses Bipolar II disorder () Trauma and stressor-related disorder Procedures MOTHER BABY ENROLLMENT Jazmine Potter, [facility] 701 [place] [address] [address] Referral ID Status Reason Start Date Expiration Date Visits Re quested Visits Authorized [id number] Closed 05/09/2023 06/24/2023 105 105 Encounter Details Date Type Department Care Team Description 05/10/2023 11:00 AM CDT [facility] [address] [place] [phone] Karoline Benson MD 701 [facility] S1 860 [place], [place] [address] Dh, Mother Baby Discharge Disposition: Discharged to [...] PT - 05/10/2023 11:00 AM CDT Dept: [facility] Type of Service: Group Therapy Provider/Group Mincing Machine Operator: Sara Cunha PT Date of Service: 05/10/2023 Start Time: 11:00 AM Stop Time: 12:00 PM Number of Group Members Present: 5 Name of Group: Movement Location of Service: Face to Face at a [facility] CONTRACTOR FIELD HAULING SERVICES PROVIDED (if applicable): No Session Content (Intervention) (including goal/intended outcome): Mindful Movement. Encouraged group members to participate in mind-body skills facilitated by [facility] Trauma-Informed Yoga providers. Trauma-sensitive mind-body skills and [...] Department Care Team Description 11/09/2023 4:30 PM BRAND DEVELOPMENT MANAGER [facility] [address] [address] Alfred Lambert, ART EDUCATOR, LOCKER ROOM CLERK [address] [address] Scheduled Discharge Disposition: Discharged to home or self care (routine discharge) documented as of this encounter Visit Diagnoses Diagnosis Trauma and stressor-related disorder- Primary documented in this encounter
--- OUTSIDE RECORDS SUMMARY | 2023-11-04 21:57 | XMS_ITS | Encounter Summary ---
Author Name Unknown Organization [facility] Address [address] [place] [address] Phone Care Team Providers Care Motion Picture Projectionist Name Role Phone Unavailable Primary Care Provider Unavailabl e Reason for Visit * Prior Authorization (Routine) - Closed Specialty Diagnoses / Procedures Referred By Contac t Referred To Contact Psych Rehab Diagnoses Bipolar II disorder () Trauma and stressor-related disorder Procedures MOTHER BABY ENROLLMENT Jazmine Potter, [facility] [address] [place] [address] [address] Referral ID Status Reason Start Date Expiration Date Visits Re quested Visits Authorized [id number] Closed 05/09/2023 06/24/2023 105 105 Encounter Details Date Type Department Care Team Description 05/10/2023 12:30 PM CDT [facility] [address] [place] [address] [phone] Karoline Benson MD 701 [facility] S1 860 [place], [place] [phone] Dh, Mother Baby Discharge Disposition: Discharged to [...] OTR/L - 05/10/2023 12:30 PM CDT Dept: [facility] Type of Service: Group Therapy Name of Group: Wellness Group Provider/Group Fulfillment Coordinator: Alisha Hardy OTR/L Date of Service: 05/10/2023 Start Time: 12:45 PM Stop Time: 1:30 PM Number of Group Members Present: 5 Location of Service: Face to Face at [facility] MAINTAINER SEWER AND WATERWORKS SERVICES PROVIDED (if applicable): No Session Content [...] Department Care Team Description 11/09/2023 4:30 PM BAKERY SALES CLERK [facility] [address] [address] Alfred Lambert, GROOVER OPERATOR, WAREHOUSE ASSEMBLY WORKER [address] [address] Scheduled Discharge Disposition: Discharged to home or self care (routine discharge) documented as of this encounter Visit Diagnoses Diagnosis Bipolar II disorder ()- Primary Other bipolar disorders documented in this encounter
--- OUTSIDE RECORDS SUMMARY | 2023-11-04 21:57 | XMS_ITS | Encounter Summary ---
Author Name Unknown Organization [facility] Address 701 [place] [address] Phone Care Team Providers Care Welt Rander Name Role Phone Unavailable Primary Care Provider Unavailabl e Reason for Visit * Reason Comments Psych Medication Management Encounter Details Date Type Department Care Team Description 05/09/2023 11:30 AM CDT Psych Rehab [facility] 701 [place], [place] [phone] Karoline Benson MD 701 [facility] S1 860 [place], [place] [phone] Psych Medication Management Discharge Disposition: Discharged to [...] were not included. Mother Baby [facility], New Patient Psychiatry Evaluation Admitted to [facility] on: 05/09/23 Merry Rooney is a 22 y.o. mother of baby (Latha b. 05/03/23) and 2 year old son (Chuy). Referred by [facility] inpatient Cultural Context: white, Icelandic and Lithuanian Pronouns: she/her/hers; Supports: Jesús -- supportive Therapist: ; PCP: ; OB-MEN'S LOCKER ROOM ATTENDANT: Antonio Ob; Translator/Interpreter: Feeding Method: breast and bottle feeding with [...] symptoms and possible preeclampsia leading to transferto [facility] ICU. Seen by psychiatry (Dr Ortiz) at [facility], discontinued from her sertraline and started on [...] for admission to the Mother Baby Day [facility] and requires the structure, support and [...] that is provided in the Mother Baby [facility]. Plan 1) Admit patient to the Mother Baby Day [facility] Discussed diagnosis and course and frame [...] and back rather than drive herself from [place]. She'll talk with her about a sleep plan 2) MEDICATIONS: - Reviewed treatment options. Will cont seroquel 50mg hs and 12.5mg bid 3) LABS: Will review labs in Epic 4) Continue to monitor symptoms 5) Engage patient in individual and group therapy process in the [facility]. 6) Review old records. 7) Contact collateral informants as indicated. 8) Arrange appropriate outpatient follow-up at the conclusion of the [facility] Chief Concern I'm anxious all the time. I almost after I had my baby History of Present Illness Pertinent Background ([facility] notes reviewed) [place] well during . Had taken Sertraline 50mg [...] it and it was scary. Went to [facility] and had a seizure and almost . Life flighted to [facility]. 05/05-05/07/23 (discharge note from [facility]): transferred to [facility] for further management inthe ICU and seen [...] though she is getting ride here from [place]. Feels anxious all of the time and struggles with PTSD symptoms -- has nightmares related to trauma andflashbacks, hypervigilance, and triggered by things that remind her of the experience she had. Last night had a headache and took her blood pressure 160/100 --- went to [facility], it was 150/100 and then started on a blood pressure med. Also taking: -Seroquel 50mg HS and 12.5mg bid -- has helped with sleep and staying calm. -Had depression at 6 months -- took seroquel 25mg for anxiety and insomnia. Diagnosed with bipolar == Sep 2021 admitted voluntarily at [facility] (had been all over the [...] when she was 4. Mother lived in [place]. 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 Legal: no had involvement with the legal system. The patient reports the following spiritual and/or cultural history: Icelandic and Lithuanian background Relationship to her partner/father/co-parent of the [...] Department Care Team Description 11/09/2023 4:30 PM LOFTSMAN/WOMAN [facility] [address] [place] [address] [phone] Alfred Lambert, RESOURCE TECHNICIAN, DYNAMOMETER TUNER [address] [address] Scheduled Discharge Disposition: Discharged to home or self care (routine discharge) documented as of this encounter Visit Diagnoses Not on filedocumented in this encounter
--- OUTSIDE RECORDS SUMMARY | 2023-11-04 21:57 | XMS_ITS | Clinical Summary ---
Author Name Unknown Organization [place] Address [address] [place] [address] Care Team Providers Care Electronic Warfare Technical Name Role Phone Abbey Bagley PA-C Primary Care Provider Ino Ken MD Unavailable [phone] Allergies No known active allergies Medications Medication [...] Answer Date Recorded PHQ-2 Score 0 04/14/2023 [place] Depression Scale Answer Date Recorded Last EPDS [...] Advance Directives For more information, please contact: [phone] Latest Code Status on File Code Status [...] with patient/ legal decision maker Care Teams Electronic Warfare Technical Relationship Specialty Start Date End Date Abbey Bagley PA-C PCP - General Physician Patient Care Technician Instructor 08/15/20 Ino Robbins MD [address] [place] [address] Assigned OBGYN Provider 01/01/23
--- OUTSIDE RECORDS SUMMARY | 2023-11-04 21:57 | XMS_ITS | Encounter Summary ---
Author Name Unknown Organization [facility] Address [address] [place] [address] Phone Care Team Providers Care Mill Tender Name Role Phone Unavailable Primary Care Provider Unavailabl e Reason for Visit * Prior Authorization (Routine) - Closed Specialty Diagnoses / Procedures Referred By Contac t Referred To Contact Psych Rehab Diagnoses Bipolar II disorder () Trauma and stressor-related disorder Procedures MOTHER BABY ENROLLMENT Jazmine Potter, [facility] 701 [place] [address] [address] Referral ID Status Reason Start Date Expiration Date Visits Re quested Visits Authorized [id number] Closed 05/09/2023 06/24/2023 105 105 Encounter Details Date Type Department Care Team Description 05/09/2023 10:15 AM CDT [facility] [address] [place] [address] [phone] Karoline Benson MD 701 [facility] S1 860 [place], [place] [phone] Dh, Mother Baby Discharge Disposition: Discharged to [...] LICSW - 05/09/2023 10:15 AM CDT Dept: [facility] Type of Service: Group Therapy Name of Group: Psychotherapy Process Group Provider/Group Register Clerk: Jazmine Potter LICSW Date of Service: 05/09/2023 Start Time: 10:15 AM Stop Time: 11:00 AM Number of Group Members Present: 2 Location of Service: Face to Face at [facility] CONSERVATION SCIENCE TEACHER SERVICES PROVIDED (if applicable): No Session Content [...] Department Care Team Description 11/09/2023 4:30 PM OVERHEAD DISTRIBUTION ENGINEER [facility] [address] [address] Alfred Lambert, GEOTHERMAL TECHNICIAN, SHANK CUTTER [address] [address] Scheduled Discharge Disposition: Discharged to home or self care (routine discharge) documented as of this encounter Visit Diagnoses Diagnosis Bipolar II disorder ()- Primary Other bipolar disorders Trauma and stressor-related disorder documented in this encounter
--- OUTSIDE RECORDS SUMMARY | 2023-11-04 21:57 | XMS_ITS | Encounter Summary ---
Author Name Unknown Organization [facility] Address [address] [place] [address] Phone Care Team Providers Care Field Operations Technician Name Role Phone Unavailable Primary Care Provider Unavailabl e Encounter Details Date Type Department Care Team Description 05/11/2023 Plan of Care Documentation [facility] Family [facility] [address] [place] [address] Social History Tobacco Use Types Packs/Day Years [...] Department Care Team Description 11/09/2023 4:30 PM MINING TEACHER [facility] [address] [phone] Alfred Lambert, INFORMATION TECHNOLOGY AUDITOR, FISHING GEAR MECHANIC [address] [address] Scheduled Discharge Disposition: Discharged to home or self care (routine discharge) documented as of this encounter Visit Diagnoses Not on filedocumented in this encounter
--- OUTSIDE RECORDS SUMMARY | 2023-11-04 21:57 | XMS_ITS | Encounter Summary ---
Author Name Unknown Organization [facility] Address [address] [place] [address] Phone Care Team Providers Care Trestle Mainternance Laborer Name Role Phone Unavailable Primary Care Provider Unavailabl e Reason for Referral * Prior Authorization (Routine) - Closed Specialty Diagnoses / Procedures Referred By Contac t Referred To Contact Psych Rehab Diagnoses Bipolar II disorder () Trauma and stressor-related disorder Procedures MOTHER BABY ENROLLMENT Jazmine Potter [facility] [address] [place] [address] [address] Referral ID Status Reason Start Date Expiration Date Visits Re quested Visits Authorized [id number] Closed 05/09/2023 06/24/2023 105 105 Reason for Visit * Prior Authorization (Routine) - Closed Specialty Diagnoses / Procedures Referred By Contac t Referred To Contact Psych Rehab Diagnoses Bipolar II disorder () Trauma and stressor-related disorder Procedures MOTHER BABY ENROLLMENT Jazmine Potter NORMALIZER [address] [place] [address] [address] Referral ID Status Reason Start Date Expiration Date Visits Re quested Visits Authorized [id number] Closed 05/09/2023 06/24/2023 105 105 Encounter Details Date Type Department Care Team Description 05/09/2023 9:30 AM CDT Psych Rehab [facility] [address] [place] [address] Karoline Benson MD 701 [facility] [address] [place] [address] Dh, Mother Baby Discharge Disposition: Discharged to [...] LICSW - 05/09/2023 9:30 AM CDT Dept: [facility] Type of Service: Group Therapy Name of Group: Psychoeducation/Skills Group Provider/Group Handle Bar Assembler: Jazmine Potter LICSW Date of Service: 05/09/2023 Start Time: 9:30 AM Stop Time: 10:15 AM Number of Group Members Present: 3 Location of Service: Face to Face at [facility] GRAIN TRIMMER SERVICES PROVIDED (if applicable): No Session Content [...] Department Care Team Description 11/09/2023 4:30 PM MANAGER RFID [facility] [address] [place] [phone] Alfred Lambert, HEALTH ADVOCATE, RN RADIATION [address] [phone] Scheduled Discharge Disposition: Discharged to home or self care (routine discharge) documented as of this encounter Visit Diagnoses Diagnosis Bipolar II disorder ()- Primary Other bipolar disorders Trauma and stressor-related disorder documented in this encounter
--- OUTSIDE RECORDS SUMMARY | 2023-11-04 21:57 | XMS_ITS | Encounter Summary ---
Author Name Unknown Organization [facility] Address [address] [place] [address] Care Team Providers Care Body And Fender Mechanic Name Role Phone Abbey Bagley PA-C Unavailable Unavailable Abbey Bagley PA-C Primary Care Provider Ino Ken MD Unavailable Encounter Details Date Type Department Care Team (Latest Contact Info) Description 05/02/2023 11:59 PM CDT Hospital Encounter [facility] [address] [place] [phone] No Show Discharge Disposition: Home or Self Care Social History Tobacco Use Types Packs/Day Years Used Date Smoking Tobacco: Former Cigarettes 0.3 Q uit: 03/10/2023 Passive Smoke Exposure: Never Smokeless Tobacco: Never Alcohol Use Standard Drinks/Week Comments Not Currently 0 (1 standard drink = 0.6 oz pur e alcohol) Seldom PHQ-2 Answer Date Recorded PHQ-2 Score 0 04/14/2023 [place] Depression Scale Answer Date Recorded [place] Depression Score 13 03/10/2021 Last EPDS Self [...] documented as of this encounter Care Teams Body And Fender Mechanic Relationship Specialty Start Date End Date Abbey Bagley PA-C PCP - General Physician Plating Inspector 08/15/20 Abbey Bagley PA-C Physician Plating Inspector 04/11/20 05/02/23 Ino Robbins MD [address] [place] [address] Assigned OBGYN Provider 01/01/23 documented as of this encounter
--- OUTSIDE RECORDS SUMMARY | 2023-11-04 21:57 | XMS_ITS | Referral Summary ---
Author Name Unknown Organization [facility] Address [address] [place] [address] Care Team Providers Care Cook Dinner Name Role Phone Abbey Bagley PA-C Primary [...] Answer Date Recorded PHQ-2 Score 0 04/14/2023 [place] Depression Scale Answer Date Recorded Last EPDS [...] Advance Directives For more information, please contact: [phone] Latest Code Status on File Code Status [...] with patient/ legal decision maker Care Teams Cook Dinner Relationship Specialty Start Date End Date Abbey Bagley PA-C PCP - General Physician Pearl Peller 08/15/20 Ino Robbins MD [address] [place] [address] Assigned OBGYN Provider 3/25/23
--- OUTSIDE RECORDS SUMMARY | 2023-11-04 21:57 | XMS_ITS | Encounter Summary ---
Author Name Unknown Organization [facility] Address [address] [place] [address] Phone Care Team Providers Care Dehorner Name Role Phone Unavailable Primary Care Provider Unavailabl e Reason for Visit * Prior Authorization (Routine) - Closed Specialty Diagnoses / Procedures Referred By Contac t Referred To Contact Psych Rehab Diagnoses Bipolar II disorder () Trauma and stressor-related disorder Procedures MOTHER BABY ENROLLMENT Jazmine Potter, [facility] [address] [place] [address] [address] Referral ID Status Reason Start Date Expiration Date Visits Re quested Visits Authorized [id number] Closed 05/09/2023 06/24/2023 105 105 Encounter Details Date Type Department Care Team Description 05/09/2023 1:45 PM CDT Psych Rehab [facility] [address] [place] [phone] Karoline Benson MD 701 [facility] S[address] [place], [place] [phone] Dh, Mother Baby Discharge Disposition: Discharged to [...] LICSW - 05/09/2023 1:45 PM CDT Dept: [facility] Type of Service: Group Therapy Name of Group: Psychoeducation/Skills Group Provider/Group Hair Sample Matcher: Jazmine Potter LICSW Date of Service: 05/09/2023 Start Time: 1:45 PM Stop Time: 2:30 PM Number of Group Members Present: 5 Location of Service: Face to Face at [facility] Session Content (Intervention): The purpose of [...] Department Care Team Description 11/09/2023 4:30 PM WOODS SUPERINTENDENT [facility] [address] [address] Alfred Lambert, MACHINING ENGINEER, HEDGE FUND TRADER [address] [address] Scheduled Discharge Disposition: Discharged to home or self care (routine discharge) documented as of this encounter Visit Diagnoses Diagnosis Bipolar II disorder ()- Primary Other bipolar disorders Trauma and stressor-related disorder documented in this encounter
--- OUTSIDE RECORDS SUMMARY | 2023-11-04 21:57 | XMS_ITS | Encounter Summary ---
Author Name Unknown Organization [facility] Address [address] [place] [address] Phone Care Team Providers Care Property Man Name Role Phone Unavailable Primary Care Provider Unavailabl e Reason for Visit * Prior Authorization (Routine) - Closed Specialty Diagnoses / Procedures Referred By Contac t Referred To Contact Psych Rehab Diagnoses Bipolar II disorder () Trauma and stressor-related disorder Procedures MOTHER BABY ENROLLMENT Jazmine Potter, [facility] [address] [place] [address] [address] Referral ID Status Reason Start Date Expiration Date Visits Re quested Visits Authorized [id number] Closed 05/09/2023 06/24/2023 105 105 Encounter Details Date Type Department Care Team Description 05/09/2023 12:30 PM CDT [facility] [address] [place] [phone] Karoline Benson MD 701 [facility] [address] [place], [place] [phone] Dh, Mother Baby Discharge Disposition: Discharged to [...] - 05/09/2023 12:30 PM CDT Dept: [facility] Type of Service: Group Therapy Name of Group: Wellness Group Provider/Group Automobile Mechanic Apprentice: Alisha Hardy OTR/L Date of Service: 05/09/2023 Start Time: 12:45 PM Stop Time: 1:30 PM Number of Group Members Present: 5 Location of Service: Face to Face at [facility] HUMIDIFIER OPERATOR SERVICES PROVIDED (if applicable): No Session [...] Department Care Team Description 11/09/2023 4:30 PM COPYWRITER [facility] [address] [address] Alfred Lambert, MONTESSORI PARAPROFESSIONAL, SPECIAL NEEDS NANNY [address] [address] Scheduled Discharge Disposition: Discharged to home or self care (routine discharge) documented as of this encounter Visit Diagnoses Diagnosis Bipolar II disorder ()- Primary Other bipolar disorders documented in this encounter
--- OUTSIDE RECORDS SUMMARY | 2023-11-04 21:57 | XMS_ITS | Encounter Summary ---
Author Name Unknown Organization [facility] Address [address] [place] [address] Phone Care Team Providers Care Power And Recovery Superintendent Name Role Phone Unavailable Primary Care Provider Unavailabl e Reason for Visit * Prior Authorization (Routine) - Closed Specialty Diagnoses / Procedures Referred By Contac t Referred To Contact Psych Rehab Diagnoses Bipolar II disorder () Trauma and stressor-related disorder Procedures MOTHER BABY ENROLLMENT Jazmine Potter, [facility] [address] [place] [address] [address] Referral ID Status Reason Start Date Expiration Date Visits Re quested Visits Authorized [id number] Closed 05/09/2023 06/24/2023 105 105 Encounter Details Date Type Department Care Team Description 05/10/2023 10:15 AM CDT [facility] [address] [place] [phone] Karoline Benson MD 701 [facility] S1 [address] [place], [place] [address] Dh, Mother Baby Discharge Disposition: Discharged to [...] LICSW - 05/10/2023 10:15 AM CDT Dept: [facility] Type of Service: Group Therapy Name of Group: Psychotherapy Process Group Provider/Group Mission Systems Engineer: Jazmine Potter LICSW Date of Service: 05/10/2023 Start Time: 10:15 AM Stop Time: 11:00 AM Number of Group Members Present: 4 Location of Service: Face to Face at [facility] WEATHERIZATION INSTALLER SERVICES PROVIDED (if applicable): No Session [...] Care Team Description 11/09/2023 4:30 PM [facility] Internal Medicine Clinics [address] [place] [address] Alfred Lambert, SCIENTIFIC RESEARCH ASSOCIATE, WALLPAPER INSTALLER [address] [address] Scheduled Discharge Disposition: Discharged to home or self care (routine discharge) documented as of this encounter Visit Diagnoses Diagnosis Bipolar II disorder ()- Primary Other bipolar disorders Trauma and stressor-related disorder documented in this encounter
--- OUTSIDE RECORDS SUMMARY | 2023-11-04 21:57 | XMS_ITS | Encounter Summary ---
Author Name Unknown Organization [facility] Address [address] [place] [address] Care Team Providers Care Lean Six Sigma Senior Specialist Name Role Phone Abbey Bagley PA-C [...] Answer Date Recorded PHQ-2 Score 0 04/14/2023 [place] Depression Scale Answer Date Recorded [place] Depression Score 13 03/10/2021 Last EPDS Self [...] documented as of this encounter Care Teams Lean Six Sigma Senior Specialist Relationship Specialty Start Date End Date Abbey Bagley PA-C PCP - General Physician Flash Welder 08/15/20 Abbey Bagley PA-C Physician Flash Welder 04/11/20 05/02/23 Ino Robbins MD [address] [place] [address] Assigned OBGYN Provider 01/01/23 documented as of this encounter
--- OUTSIDE RECORDS SUMMARY | 2023-11-04 21:57 | XMS_ITS | Encounter Summary ---
Author Name Unknown Organization [facility] Address [address] [place] [address] Care Team Providers Care Service Bar Cashier Name Role Phone Abbey Bagley PA-C Unavailable Unavailable Abbey Bagley PA-C Primary Care Provider Unava ilIno Reynolds MD Unavailable [phone] Reason for Referral * Home Health Therapies & Aides (Priority: 1-2 Weeks) Specialty Diagnoses / Procedures Referred By Bernardo belle Referred To Contact [facility] [address] [place] [address] Referral ID Status Reason Start Date Expiration Date Visits Re quested Visits Authorized Question Answer Please see patient within 96 hours of discharge Reason for Referral /Low Milk Supply Comments If your home visit was not scheduled during your hospital stay, you should receive a call from [facility] within 24 hours after discharge to schedule your ordered home visit. If you have not heard by then, please call [phone]. Reason for Visit * Reason Comments Induction Of Labor * Auth/Cert (Routine) Specialty Diagnoses / Procedures Referred By Contac t Referred To Contact chief building inspector Diagnoses Indication for care in labor or delivery Indication for care in labor or delivery Rh [address] [place] [address] Referral ID Status Reason Start Date Expiration Date Visits Re quested Visits Authorized [id number] 1 1 Encounter Details Date Type Department Care Team (Latest Contact Info) Description 05/02/2023 7:24 AM CDT - 05/04/2023 12:33 PM CDT Hospital Encounter [facility] [address] [place] [phone] Kelley Diane, DO [address] [place] [address] Vaginal delivery (Primary Dx); Indication for care [...] Answer Date Recorded PHQ-2 Score 0 04/14/2023 [place] Depression Scale Answer Date Recorded Last EPDS [...] Rodriguez MD - 05/04/2023 7:54 AM CDT [facility] OB /Discharge Note S: Patient without complaints. [...] of your health care provider. Copyright 2020 [facility]. All rights reserved. Clinically reviewed by Gala Singh RNC-OB, MSN. [employer] [id number] - Rev 12/02. documented in this encounter [...] Dr. Kelley Diane DO Obstetrics and Gynecology [facility] and [facility] * Kelley Diane DO - 05/02/2023 4:06 PM CDT [facility] Labor and Delivery History and Physical Merry [...] be re-consulted if needs arise. DOUGLAS [facility] 05/04/2023 9:51 AM documented in this [...] in good and stable condition. Aidan Vargas [[id number]] Labor Event Times Dilation complete date: 05/03/23 [...] Keven Thao RN Delivery Nurse Mae Scott, wallpaper inspector Assist Vaginal Counts Initial count performed by 2 team members: Two Team Members Dr. Benedicto Stern RN [place] Suture [place] Sponges (RETIRED) Instruments Initial counts 2 5 [...] maternal chest. Stimulation and bulb suction provided [place] Measurements Weight: 7 lb 0.5 oz Length: 1' 8.5 Head circumference: 33 cm Skin to Skin and Feeding Plan Skin to skin initiation date/time: 10/16/1840 Skin to skin with: Mother Skin to skin end date/time: Labor Events and Shoulder Dystocia Tracing Prior to Delivery: Category 1 Shoulder dystocia present?: Neg Delivery (Maternal) (Provider to Complete) ([id number]) Episiotomy: None Perineal lacerations: None Repair suture: None Blood Loss Mother: Kristina Vargas Willam #[id number] Start of Mother's Information Delivery Blood Loss 05/02/23 1419 - 05/04/23 0219 Delivery QBL (mL) Hospital Encounter 100 mL Total 100 mL End of Mother's Information Mother: Chaz Vargasvivek Quarles #[id number] Delivery - Provider to Complete ([id number]) Delivering clinician: Kelley Diane DO Delivery Type [...] notified of room change. Report given to LCUÍA Morgan at 0450. Belongings sent to receiving [...] tianna q2-3 before epidural but difficult to pickling grader now that she is on her side. [...] Diane DO LAB - BLOOD ORDER [facility] Acute Care Lab [address] [facility] Lab (1st floor, no room number) [place] [address], [facility] [phone] * Adult Type and Screen (05/02/2023 9:21 AM CDT) ABO/RH(D) A POS 05/02/2023 8:50 AM CDT RH BLOOD BANK Antibody Screen Negative Negative 05/02/2023 8:50 AM CDT RH BLOOD BANK SPECIMEN EXPIRATION DATE [id number] 05/02/2023 8:50 AM CDT RH BLOOD BANK Blood BLOOD SPECIMEN / Unknown Venipuncture / Unknown 05/02/2023 9:21 AM CDT 05/02/2023 9:36 AM CDT Kelley Tobiase Benedicto GUZ[facility] LAB - BLOOD BANK TEST ORDER Performing Organization Address City/[facility]/ZIP Co de Phone Number BLOOD BANK [address] [place] [address], [facility] * Treponema Abs w Reflex to RPR and Titer (05/02/2023 9:21 AM CDT) Treponema Antibody Total Nonreactive Nonreactive 05/02/2023 3:59 PM CDT [facility]PROT/EN DO Blood BLOOD SPECIMEN / Unknown Venipuncture / Unknown 05/02/2023 9:21 AM CDT 05/02/2023 9:36 AM CDT Kelley Diane DO LAB - BLOOD ORDER [facility]/PROT/ENDO [facility] Special[facility] Core/Prot/Endo [address] Building, Room [address] [place] [address], [facility] [phone] * (ABNORMAL) Hemoglobin (05/02/2023 9:21 AM CDT) Hemoglobin 9.2(L) 11.7 - 15.7 g/dL 05/02/2023 9:40 AM CDT LABORATORY Blood BLOOD SPECIMEN / Unknown Venipuncture / Unknown 05/02/2023 9:21 AM CDT 05/02/2023 9:36 AM CDT Kelley Diane DO LAB - BLOOD ORDER [facility] Acute Care Lab [address] [facility] Lab (1st floor, no room number) [place] [address], [facility] [phone] documented in this encounter Visit Diagnoses Diagnosis [...] as of this encounter Care Teams Service Bar Cashier Relationship Specialty Start Date End Date Abbey Bagley PA-C PCP - General Physician Point Of Care Specialist 08/15/20 Abbey Bagley PA-C Physician Point Of Care Specialist 04/11/20 05/02/23 Ino Robbins MD [address] [place] [address] Assigned OBGYN Provider 01/01/23 documented as of this encounter
--- OUTSIDE RECORDS SUMMARY | 2023-11-04 21:57 | XMS_ITS | Encounter Summary ---
Author Name Unknown Organization [facility] Address [address] [place] [address] Care Team Providers Care Camera Maker Name Role Phone Abbey Bagley PA-C Unavailable Unavailable Abbey Bagley PA-C Primary Care Provider Americava ilIno Reynolds MD Unavailable Reason for Visit * Auth/Cert (Routine) Specialty Diagnoses / Procedures Referred By Bernardo t Referred To Contact utilization management rn Diagnoses Indication for care in labor or delivery Indication for care in labor or delivery Rh [address] [place] [address] Referral ID Status Reason Start Date Expiration Date Visits Re quested Visits Authorized [id number] 1 1 Encounter Details Date Type Department Care Team (Late st Contact Info) Description 05/02/2023 8:35 PM CDT Anesthesia Event [facility]place [address] [place] [address] Wagner Lynn MD [facility] ANESTHESIA [address] [place], [place] [address] Deangelo Gamboa MD [facility] [address] [place], [place] [address] Anesthesia Record Procedure Summary Procedure Name Responsible [...] Answer Date Recorded PHQ-2 Score 0 04/14/2023 [place] Depression Scale Answer Date Recorded Last EPDS [...] nursing care at necessary intervals. JAKollitzMD FOR [facility] ([facility] [place]) ONLY: Pain Team Contact information: please page the Pain Team Via [employer]Search Pain. During daytime hours, please page the [...] and realistic alternatives discussed. Questions answered and patient/apprenticeship training representative(s) expressed understanding. - Discussed: - Discussed [...] nursing care at necessary intervals. JAKollitzMD FOR [facility] ([facility]) ONLY: ?? Pain Team Contact information: please page the Pain Team Via [employer]. Search Pain. During daytime hours, please page the attending first. At night please page the resident first. Wagner Lynn MD [place] ANESTHESIA documented in this encounter Visit Diagnoses [...] documented as of this encounter Care Teams Camera Maker Relationship Specialty Start Date End Date Abbey Bagley PA-C PCP - General Physician Motion And Time Study Teacher 08/15/20 Abbey Bagley PA-C Physician Motion And Time Study Teacher 04/11/20 05/02/23 Ino Robbins MD [address] [place] [address] Assigned OBGYN Provider 01/01/23 documented as of this encounter
--- OUTSIDE RECORDS SUMMARY | 2023-11-04 21:58 | XMS_ITS | Encounter Summary ---
Author Name Unknown Organization [place] Address [facility] [place] [address] Care Team Providers Care Labourers Name Role Phone Abbey Bagley PA-C Unavailable Unavailable Abbey Bagley PA-C Primary Care Provider Ino Ken MD Unavailable Reason for Visit * Reason Comments Rule Out Labor Encounter Details Date Type Department Care Team (Latest Contact Info) Description 04/24/2023 11:01 PM CDT - 04/25/2023 1:18 AM CDT Hospital Encounter [facility] [address] [place] [phone] Kelley Diane, DO [address] [place] [address] Discharge Disposition: Home or Self Care Social History Tobacco Use Types Packs/Day Years Used Date Smoking Tobacco: Former Cigarettes 0.3 Q uit: 03/10/2023 Passive Smoke Exposure: Never Smokeless Tobacco: Never Alcohol Use Standard Drinks/Week Comments Not Currently 0 (1 standard drink = 0.6 oz pur e alcohol) Seldom PHQ-2 Answer Date Recorded PHQ-2 Score 0 04/14/2023 [place] Depression Scale Answer Date Recorded [place] Depression Score 13 03/10/2021 Last EPDS Self [...] (see handout) Call your doctor or nurse jewel grinder if your baby is moving less than [...] Your guide to early labor at home (Danish) documented in this encounter Medications at Time [...] RN - 04/24/2023 11:48 PM CDT 04/24/23 3424 Provider Notification Provider Name/Title Dr. Diane Method [...] Diane DO LAB - URINE ORDER [facility] Acute Care Lab [address] [facility] Lab (1st floor, no room number) [place] [address], [facility] [phone] * (ABNORMAL) CBC with platelets (04/25/2023 12:03 [...] 12:03 AM CDT 04/25/2023 12:16 AM CDT Kleley Diane DO LAB - BLOOD ORDER BROOKE [facility] LABORATORY [facility] Acute Care Lab [address] Lab (1st floor, no room number) [place] [address], [facility] [phone] * (ABNORMAL) Comprehensive metabolic panel (04/25/2023 12:03 AM CDT) Pathologist [facility] Sodium 139 136 - 145 mmol/L 04/25/2023 [...] Diane DO LAB - BLOOD ORDER BROOKE [facility] Acute Care Lab [address] Lab (1st floor, no room number) [place] [address], [facility] [phone] documented in this encounter Visit Diagnoses Diagnosis [...] documented as of this encounter Care Teams Labourers Relationship Specialty Start Date End Date Abbey Bagley PA-C PCP - General Physician Drums Teacher 08/15/20 Abbey Bagley PA-C Physician Drums Teacher 04/11/20 05/02/23 Ino Robbins MD [address] [place] [address] Assigned OBGYN Provider 01/01/23 documented as of this encounter
--- OUTSIDE RECORDS SUMMARY | 2023-11-04 21:58 | XMS_ITS | Encounter Summary ---
Author Name Unknown Organization [place] Address [facility] [place] [address] Care Team Providers Care Filter Changer Name Role Phone Abbey Bagley PA-C Unavailable Unavailable Abbey Bagley PA-C Primary Care Provider Ino Ken MD Unavailable [phone] Reason for Visit * Reason Comments Decreased Movement Abdominal Cramping Encounter Details Date Type Department Care Team (Latest Contact Info) Description 04/12/2023 3:31 PM CDT - 04/12/2023 5:05 PM CDT Hospital Encounter [facility] [address] [place] [address] [address] Kelley Diane, DO [address] [place] [address] Encounter for triage in patient (Primary Dx) [...] Answer Date Recorded PHQ-2 Score 4 03/30/2023 [place] Depression Scale Answer Date Recorded [place] Depression Score 13 03/10/2021 Last EPDS Self [...] (see handout) Call your doctor or nurse homebirth midwife if your baby is moving less than [...] sent through Care Everywhere. * Kick Counts (Maori) documented in this encounter Medications at Time [...] the bathroom, patient seen on 04/09 at [facility] for similar complaints. MD updated on FHR [...] Orde r Schedule Non Stress Test by Provider/backer up Routine One Time for 1 Occurrences starting [...] BIOPHY PROFILE W/O NST SINGLE W/LTD LOCATION: [facility] DATE: 04/12/2023 INDICATION: 36w4d with decreased movement COMPARISON: None. FINDINGS: Single living fetus, cephalic presentation. HEART RATE: 149 bpm. SDP 5.2 cm. PLACENTA: Anterior. No previa. CERVIX: Not visualized. 2/2 breathing 2/2 movements 2/2 tone 2/2 amniotic fluid Total biophysical profile 05/17 Procedure Note Danyell Hi MD - 04/12/2023 EXAM: US OB BIOPHY PROFILE W/O NST SINGLE W/LTD LOCATION: [facility] DATE: 04/12/2023 INDICATION: 36w4d with decreased [...] documented as of this encounter Care Teams Filter Changer Relationship Specialty Start Date End Date Abbey Bagley PA-C PCP - General Physician Correspondence Dictator 08/15/20 Abbey Bagley PA-C Physician Correspondence Dictator 04/11/20 05/02/23 Ino Robbins MD [address] [place] [address] Assigned OBGYN Provider 01/01/23 documented as of this encounter
--- OUTSIDE RECORDS SUMMARY | 2023-11-04 21:58 | XMS_ITS | Encounter Summary ---
Author Name Unknown Organization [place] Address [address] [facility] [place] [address] Care Team Providers Care Catering Barista Name Role Phone Abbey Bagley PA-C Unavailable Unavailable Abbey Bagley PA-C Primary Care Provider Ino Ken MD Unavailable [phone] Reason for Visit * Reason Comments Care Encounter Details Date Type Department Care Team (Late st Contact Info) Description 04/14/2023 4:15 PM CDT Office Visit [facility] [place] [address] [place] [phone] Kelley Diane, DO [address] [facility] [address] [place] [address] care in third trimester (Primary Dx) Social History Tobacco Use Types Packs/Day Years Used Date Smoking Tobacco: Some Days Cigarettes 0.3 Passive Smoke Exposure: Never Smokeless Tobacco: Never Alcohol Use Standard Drinks/Week Comments Not Currently 0 (1 standard drink = 0.6 oz pur e alcohol) Seldom PHQ-2 Answer Date Recorded PHQ-2 Score 0 04/14/2023 [place] Depression Scale Answer Date Recorded [place] Depression Score 13 03/10/2021 Last EPDS Self [...] weeks, then weekly till delivery Phone numbers [place]: Day/ night [phone] ask for ob triage Emergency: Call labor and delivery: [phone] What should I call about?? Contraction every [...] mother is at rest and focused on [facility] Address [address] [facility], [place] [address] Dr. Kelley Diane, DO GARMENT FORM ASSEMBLER [facility] documented in this encounter Progress Notes * [...] LABORATORY - 04/16/2023 9:09 AM CDT The CepMercatusid Xpert GBS LB Assay, performed on the [employer]?? Instrument Systems, is a qualitative in vitro [...] or monitor treatment for GBS infections. The CepMercatusid Xpert GBS LB Assay is intended for use in hospital, reference or state laboratory settings. The device is not intended for xfult-[id number]-pfku use. Kelley Diane DO LAB - MICRO GENER AL ORDERABLES [facility]ORAT[facility] Inf. Diseases Diag. Lab [address] [facility], [address] [place] [address], [facility] [phone] documented in this encounter Visit Diagnoses Diagnosis care in third trimester- Primary documented in this encounter Additional Health Concerns Assessment Noted Time PHQ-9 Depression Total Score: 21 023 12:25 PM CDT documented as of this encounter Care Teams Catering Barista Relationship Specialty Start Date End Date Abbey Bagley PA-C PCP - General Physician Rail Track Maintainer 08/15/20 Abbey Bagley PA-C Physician Rail Track Maintainer 04/11/20 05/02/23 Ino Robbins MD [address] [place] [address] Assigned OBGYN Provider 01/01/23 documented as of this encounter
--- OUTSIDE RECORDS SUMMARY | 2023-11-04 21:58 | XMS_ITS | Encounter Summary ---
Author Name Unknown Organization [place] Address [address] [facility] [place] [address] Care Team Providers Care Business Account Executive Name Role Phone Abbey Bagley PA-C Unavailable Unavailable Abbey Bagley PA-C Primary Care Provider Ino Ken MD Unavailable Reason for Visit * Reason Comments Vaginal Bleeding Encounter Details Date Type Department Care Team (Latest Contact Info) Description 04/09/2023 1:24 PM CDT - 04/09/2023 3:18 PM CDT Hospital Encounter [facility] [address] [place] [phone] Christie Medellin MD [address] [place] [address] Discharge Disposition: Home or Self Care Social History Tobacco Use Types Packs/Day Years Used Date Smoking Tobacco: Some Days Cigarettes 0.3 Smokeless Tobacco: Never Alcohol Use Standard Drinks/Week Comments Not Currently 0 (1 standard drink = 0.6 oz pur e alcohol) Seldom PHQ-2 Answer Date Recorded PHQ-2 Score 4 03/30/2023 [place] Depression Scale Answer Date Recorded [place] Depression Score 13 03/10/2021 Last EPDS Self [...] (see handout) Call your doctor or nurse carbon paper machine operator if your baby is moving [...] Orde r Schedule Non Stress Test by Provider/volunteer fire fighter Routine One Time for 1 Occurrences starting [...] mg/dL 04/09/2023 2:42 PM CDT LABORATORY Specific [place] Urine 1.027 1.003 - 1.035 04/09/2023 2:42 [...] MD LAB - URINE ORDERABL ES LABORATORY [facility] Lab [address] 1st floor, [address] [place] [address], [place] [phone] * (ABNORMAL) Wet preparation (04/09/2023 2:29 PM [...] MD LAB - MICRO GENERAL ORDERABLES LABORATORY [facility] Lab [address] 1st floor, [address] [place] [address], [place] [phone] * NON-STRESS TEST - HIM SCAN (04/09/2023 [...] as of this encounter Care Teams Business Account Executive Relationship Specialty Start Date End Date Abbey Bagley PA-C PCP - General Physician Mail Handler Sorter 08/15/20 Abbey Bagley PA-C Physician Mail Handler Sorter 04/11/20 05/02/23 Ino Robbins MD [address] [place] [address] Assigned OBGYN Provider 01/01/23 documented as of this encounter
--- OUTSIDE RECORDS SUMMARY | 2023-11-04 21:58 | XMS_ITS | Encounter Summary ---
Author Name Unknown Organization [place] Address [address] [place] [address] Care Team Providers Care Pantographer Name Role Phone Abbey Bagley PA-C Unavailable [...] Answer Date Recorded PHQ-2 Score 4 03/30/2023 [place] Depression Scale Answer Date Recorded [place] Depression Score 13 03/10/2021 Last EPDS Self [...] documented as of this encounter Care Teams Pantographer Relationship Specialty Start Date End Date Abbey Bagley PA-C PCP - General Physician Line Person 08/15/20 Abbey Bagley PA-C Physician Line Person 04/11/20 05/02/23 Ino Robbins MD [address] [place] [address] Assigned OBGYN Provider 01/01/23 documented as of this encounter
--- OUTSIDE RECORDS SUMMARY | 2023-11-04 21:58 | XMS_ITS | Encounter Summary ---
Author Name Unknown Organization [place] Address [address] [facility] [place] [address] Care Team Providers Care Spring Up Supervisor Name Role Phone Abbey Bagley PA-C Unavailable Unavailable Abbey Bagley PA-C Primary Care Provider Unava ilable Ino Robbins MD Unavailable [phone] Reason for Visit * Reason Comments Care Encounter Details Date Type Department Care Team (Late st Contact Info) Description 04/20/2023 1:30 PM CDT Office Visit [facility] [address] [place] [address] Ino Robbins MD [address] [place] [address] care in third trimester (Primary Dx) Social History Tobacco Use Types Packs/Day Years Used Date Smoking Tobacco: Former Cigarettes 0.3 Q uit: 03/10/2023 Passive Smoke Exposure: Never Smokeless Tobacco: Never Alcohol Use Standard Drinks/Week Comments Not Currently 0 (1 standard drink = 0.6 oz pur e alcohol) Seldom PHQ-2 Answer Date Recorded PHQ-2 Score 0 04/14/2023 [place] Depression Scale Answer Date Recorded [place] Depression Score 13 03/10/2021 Last EPDS Self [...] documented as of this encounter Care Teams Spring Up Supervisor Relationship Specialty Start Date End Date Abbey Bagley PA-C PCP - General Physician Cartoon Designer 08/15/20 Abbey Bagley PA-C Physician Cartoon Designer 04/11/20 05/02/23 Ino Robbins MD [address] [place] [address] Assigned OBGYN Provider 01/01/23 documented as of this encounter
--- OUTSIDE RECORDS SUMMARY | 2023-11-04 21:58 | XMS_ITS | Encounter Summary ---
Author Name Unknown Organization [place] Address [address] [facility] [place] [address] Care Team Providers Care Bullet Swaging Machine Adjuster Name Role Phone Abbey Bagley PA-C Unavailable Unavailable Abbey Bagley PA-C Primary Care Provider Unava ilable Ino Robbins MD Unavailable Reason for Visit * Reason Comments Care Encounter Details Date Type Department Care Team (Late st Contact Info) Description 03/30/2023 11:45 AM CDT Office Visit [facility] [address] [place] [address] Ino Robbins MD [address] [place], [place] [address] care in third trimester (Primary Dx); HSV [...] Answer Date Recorded PHQ-2 Score 4 03/30/2023 [place] Depression Scale Answer Date Recorded [place] Depression Score 13 03/10/2021 Last EPDS [...] Body Mass Index 33.52 11/04/2022 3:15 PM DIESEL ENGINE TESTER documented in this encounter Progress Notes * Ino Robbins MD - 03/30/2023 11:45 AM CDT 22yo at 34w5d. Care has been intermittent due primarily to familial chaos. Moved to [place] and living arrangements were not as advertised. [...] Robbins MD LAB - BLOOD OR DERABLES [place] LABORATORY [facility] [address] [facility], [address] [place] [address], [facility] [phone] * Treponema Abs w Reflex to RPR and Titer (03/30/2023 12:53 PM CDT) Pathologist [facility] Treponema Antibody Total Nonreactive Nonreactive 03/31/2023 9:50 AM CDT SPECIALTY CORE/PROT/EN DO Blood BLOOD SPECIMEN / Unknown Venipuncture / Unknown 03/30/2023 12:53 PM CDT 03/30/2023 12:53 PM CDT Ino Robbins MD LAB - BLOOD OR DERABLES [facility] SPECIALTY CORE/PROT/ENDO UM Specialty Core/Prot/Endo [address] [facility] [address] [facility], [address] [place] [address], [facility] [phone] * (ABNORMAL) CBC with platelets (03/30/2023 12:53 [...] LAB - BLOOD OR DERABLES [place] LABORATORY [facility] [address], [address] [place] [address], [facility] [phone] documented in this encounter Visit Diagnoses Diagnosis care in third trimester- Primary HSV (herpes simplex virus) infection Herpes simplex without mention of complication documented in this encounter Additional Health Concerns Assessment Noted Time PHQ-9 Depression Total Score: 023 12:25 PM CDT documented as of this encounter Care Teams Bullet Swaging Machine Adjuster Relationship Specialty Start Date End Date Abbey Bagley PA-C PCP - General Physician Application Consultant 08/15/20 Abbey Bagley PA-C Physician Application Consultant 04/11/20 05/02/23 Ino Robbins MD [address] [place] [address] Assigned OBGYN Provider 01/01/23 documented as of this encounter
--- OUTSIDE RECORDS SUMMARY | 2023-11-04 21:58 | XMS_ITS | Encounter Summary ---
Author Name Unknown Organization [place] Address [address] [facility] [place] [address] Care Team Providers Care Ship Boat Or Barge Mate Name Role Phone Abbey Bagley PA-C Unavailable Unavailable Abbey Bagley PA-C Primary Care Provider Unava ilable Ino Robbins MD Unavailable Encounter Details Date Type Department Care Team (Late st Contact Info) Description 03/30/2023 Orders Only [facility] [place] [address] [facility] [address] [place] [address] Ino Robbins MD [address] [place] [address] Abnormal maternal glucose tolerance, antepartum (Primary Dx) Social History Tobacco Use Types Packs/Day Years Used Date Smoking Tobacco: Some Days Cigarettes 0.3 Smokeless Tobacco: Never Alcohol Use Standard Drinks/Week Comments Not Currently 0 (1 standard drink = 0.6 oz pur e alcohol) Seldom PHQ-2 Answer Date Recorded PHQ-2 Score 4 03/30/2023 [place] Depression Scale Answer Date Recorded [place] Depression Score 13 03/10/2021 Last EPDS Self [...] documented as of this encounter Care Teams Ship Boat Or Barge Mate Relationship Specialty Start Date End Date Abbey Bagley PA-C PCP - General Physician Client Technologies Analyst 08/15/20 Abbey Bagley PA-C Physician Client Technologies Analyst 04/11/20 05/02/23 Ino Robbins MD [address] [place] [address] Assigned OBGYN Provider 01/01/23 documented as of this encounter
--- OUTSIDE RECORDS SUMMARY | 2023-11-04 21:58 | XMS_ITS | Encounter Summary ---
Author Name Unknown Organization [place] Address [address] [place] [address] Care Team Providers Care Refrigeration Engine Operator Name Role Phone Abbey Bagley PA-C Unavailable Unavailable Abbey Bagley PA-C Primary Care Provider Ino Ken MD Unavailable [phone] Encounter Details Date Type Department Care Team (Latest Contact Info) Description 04/12/2023 Travel Social History Tobacco Use Types Packs/Day Years Used Date Smoking Tobacco: Some Days Cigarettes 0.3 Passive Smoke Exposure: Never Smokeless Tobacco: Never Alcohol Use Standard Drinks/Week Comments Not Currently 0 (1 standard drink = 0.6 oz pur e alcohol) Seldom PHQ-2 Answer Date Recorded PHQ-2 Score 4 03/30/2023 [place] Depression Scale Answer Date Recorded [place] [...] documented as of this encounter Care Teams Refrigeration Engine Operator Relationship Specialty Start Date End Date Abbey Bagley PA-C PCP - General Physician Bottom Precipitator Operator 08/15/20 Abbey Bagley PA-C Physician Bottom Precipitator Operator 04/11/20 05/02/23 Ino Robbins MD [address] [place] [address] Assigned OBGYN Provider 01/01/23 documented as of this encounter
--- OUTSIDE RECORDS SUMMARY | 2023-11-04 21:58 | XMS_ITS | Encounter Summary ---
Author Name Unknown Organization [place] Address [address] [facility] [place] [address] Care Team Providers Care Feed Mill Lab Technician Name Role Phone Abbey Bagley PA-C Unavailable Unavailable Abbey Bagley PA-C Primary Care Provider Unava ilable Ino Robbins MD Unavailable Reason for Visit * Reason Onset Date Comments Care 04/26/2023 Encounter Details Date Type Department Care Team (Late st Contact Info) Description 04/26/2023 MyC Medical Advice [facility] [address] [place] [phone] Ino Robbins MD [address] [place], [place] [address] Care Social History Tobacco Use Types Packs/Day Years Used Date Smoking Tobacco: Former Cigarettes 0.3 Q uit: 03/10/2023 Passive Smoke Exposure: Never Smokeless Tobacco: Never Alcohol Use Standard Drinks/Week Comments Not Currently 0 (1 standard drink = 0.6 oz pur e alcohol) Seldom PHQ-2 Answer Date Recorded PHQ-2 Score 0 04/14/2023 [place] Depression Scale Answer Date Recorded [place] Depression Score 13 03/10/2021 Last EPDS Self [...] documented as of this encounter Care Teams Feed Mill Lab Technician Relationship Specialty Start Date End Date Abbey Bagley PA-C PCP - General Physician Setter Juice Packaging Machines 08/15/20 Abbey Bagley PA-C Physician Setter Juice Packaging Machines 04/11/20 05/02/23 Ino Robbins MD [address] [place] [address] Assigned OBGYN Provider 01/01/23 documented as of this encounter
--- OUTSIDE RECORDS SUMMARY | 2023-11-04 21:58 | XMS_ITS | Encounter Summary ---
Author Name Unknown Organization [place] Address [address] [facility] [place] [address] Care Team Providers Care Hydroelectric Component Machinist Name Role Phone Abbey Bagley PA-C Unavailable Unavailable Abbey Bagley PA-C Primary Care Provider Unava ilable Ino Robbins MD Unavailable [phone] Reason for Visit * Reason Comments Care Encounter Details Date Type Department Care Team (Late st Contact Info) Description 04/27/2023 3:45 PM CDT Office Visit [facility] [address] [place] [phone] Ino Robbins MD [address] [place], [place] [address] care in third trimester (Primary Dx) Social History Tobacco Use Types Packs/Day Years Used Date Smoking Tobacco: Former Cigarettes 0.3 Q uit: 03/10/2023 Passive Smoke Exposure: Never Smokeless Tobacco: Never Alcohol Use Standard Drinks/Week Comments Not Currently 0 (1 standard drink = 0.6 oz pur e alcohol) Seldom PHQ-2 Answer Date Recorded PHQ-2 Score 0 04/14/2023 [place] Depression Scale Answer Date Recorded [place] Depression Score 13 03/10/2021 Last EPDS Self [...] documented as of this encounter Care Teams Hydroelectric Component Machinist Relationship Specialty Start Date End Date Abbey Bagley PA-C PCP - General Physician Money Room Teller 08/15/20 Abbey Bagley PA-C Physician Money Room Teller 04/11/20 05/02/23 [place] [address] Assigned OBGYN Provider 01/01/23 documented as of this encounter
--- OUTSIDE RECORDS SUMMARY | 2023-11-04 21:58 | XMS_ITS | Encounter Summary ---
Author Name Unknown Organization [place] Address [address] [place] [address] Care Team Providers Care Lead Radiologic Technologist Name Role Phone Abbey Bagley PA-C Unavailable [...] Answer Date Recorded PHQ-2 Score 4 03/30/2023 [place] Depression Scale Answer Date Recorded [place] Depression Score 13 03/10/2021 Last EPDS Self [...] documented as of this encounter Care Teams Lead Radiologic Technologist Relationship Specialty Start Date End Date Abbey Bagley PA-C PCP - General Physician Communications Administrator 08/15/20 Abbey Bagley PA-C Physician Communications Administrator 04/11/20 05/02/23 Ino Robbins MD [address] [place] [address] Assigned OBGYN Provider 01/01/23 documented as of this encounter
--- OUTSIDE RECORDS SUMMARY | 2023-11-04 21:58 | XMS_ITS | Encounter Summary ---
Author Name Unknown Organization [place] Address [address] [place] [address] Care Team Providers Care Traffic Chief Name Role Phone Abbey Bagley PA-C Unavailable Unavailable Abbey Bagley PA-C Primary Care Provider Ino Ken MD Unavailable [phone] Encounter Details Date Type Department Care Team (Latest Contact Info) Description 04/20/2023 Travel Social History Tobacco Use Types Packs/Day Years Used Date Smoking Tobacco: Former Cigarettes 0.3 Q uit: 03/10/2023 Passive Smoke Exposure: Never Smokeless Tobacco: Never Alcohol Use Standard Drinks/Week Comments Not Currently 0 (1 standard drink = 0.6 oz pur e alcohol) Seldom PHQ-2 Answer Date Recorded PHQ-2 Score 0 04/14/2023 [place] Depression Scale Answer Date Recorded [place] Depression Score 13 03/10/2021 Last EPDS Self [...] documented as of this encounter Care Teams Traffic Chief Relationship Specialty Start Date End Date Abbey Bagley PA-C PCP - General Physician Switchboard Installer 08/15/20 Abbey Bagley PA-C Physician Switchboard Installer 04/11/20 05/02/23 Ino Robbins MD [address] [place] [address] Assigned OBGYN Provider 01/01/23 documented as of this encounter
--- OUTSIDE RECORDS SUMMARY | 2023-11-04 21:58 | XMS_ITS | Encounter Summary ---
Author Name Unknown Organization [place] Address [address] [place] [address] Care Team Providers Care Lace Pinner Name Role Phone Abbey Bagley PA-C Unavailable [...] Answer Date Recorded PHQ-2 Score 0 04/14/2023 [place] Depression Scale Answer Date Recorded [place] Depression Score 13 03/10/2021 Last EPDS Self [...] documented as of this encounter Care Teams Lace Pinner Relationship Specialty Start Date End Date Abbey Bagley PA-C PCP - General Physician Integration Lead 08/15/20 Abbey Bagley PA-C Physician Integration Lead 04/11/20 05/02/23 Ino Robbins MD [address] [place] [address] Assigned OBGYN Provider 01/01/23 documented as of this encounter
--- OUTSIDE RECORDS SUMMARY | 2023-11-04 21:58 | XMS_ITS | Encounter Summary ---
Author Name Unknown Organization [place] Address [address] [facility] [place] [address] Care Team Providers Care Automatic Seamer Name Role Phone Abbey Bagley PA-C Unavailable Unavailable Abbey Bagley PA-C Primary Care Provider Ino Ken MD Unavailable [phone] Encounter Details Date Type Department Care Team (Late st Contact Info) Description 04/01/2023 8:30 AM CDT Lab [facility] Laboratory [address] [place] [address] Abnormal maternal glucose tolerance, antepartum Social History Tobacco Use Types Packs/Day Years Used Date Smoking Tobacco: Some Days Cigarettes 0.3 Smokeless Tobacco: Never Alcohol Use Standard Drinks/Week Comments Not Currently 0 (1 standard drink = 0.6 oz pur e alcohol) Seldom PHQ-2 Answer Date Recorded PHQ-2 Score 4 03/30/2023 [place] Depression Scale Answer Date Recorded [place] Depression Score 13 03/10/2021 Last EPDS Self [...] LAB - BLOOD OR DERABLES [facility] [place] [facility] Lab [address] [facility], [address] [place] [phone], [facility] [phone] * Gestational Glucose Tolerance Testing, 2 Hour (04/01/2023 10:38 AM CDT) Gestational GTT 2 Hr Post Dose 117 60 - 154 mg/dL 04/02/2023 12:23 AM CDT [facility] Blood BLOOD SPECIMEN / Unknown Venipuncture / Unknown 04/01/2023 10:38 AM CDT 04/01/2023 10:38 AM CDT Ino Robbins MD LAB - BLOOD OR DERABLES Performing Organization Address [facility] de Phone Number [facility] [place] [facility] Lab [address] [facility], [address] [place] [phone], [facility] [phone] * Gestational Glucose Tolerance Testing, 1 Hour (04/01/2023 9:37 AM CDT) Gestational GTT 1 Hr Post Dose 151 60 - 179 mg/dL 04/02/2023 12:16 AM CDT U LABORATORY Blood BLOOD SPECIMEN / Unknown Venipuncture / Unknown 04/01/2023 9:37 AM CDT 04/01/2023 9:37 AM CDT Ino Robbins MD LAB - BLOOD OR DERABLES [facility]ATORY [facility] [place] [facility] Lab [address] [facility], [address] [place] [address], [facility] [phone] * Gestational Glucose Tolerance Testing, Fasting (04/01/2023 8:31 AM CDT) Gestational GTT Fasting 89 60 - 94 mg/dL 04/01/2023 7:17 PM CDT [facility] Blood BLOOD SPECIMEN / Unknown Venipuncture / Unknown 04/01/2023 8:31 AM CDT 04/01/2023 8:35 AM CDT Ino Robbins MD LAB - BLOOD OR DERABLES [facility] LAB[facility]ATORY [facility] Core Lab [address] [facility], [address] [place] [address], [facility] [phone] documented in this encounter Visit Diagnoses Diagnosis Abnormal maternal glucose tolerance, antepartum documented in this encounter Additional Health Concerns Assessment Noted Time PHQ-9 Depression Total Score: 21 023 12:25 PM CDT documented as of this encounter Care Teams Automatic Seamer Relationship Specialty Start Date End Date Abbey Bagley PA-C PCP - General Physician Welding Machine Operator/Tender 08/15/20 Abbey Bagley PA-C Physician Welding Machine Operator/Tender 04/11/20 05/02/23 Ino Robbins MD [address] [place] [address] Assigned OBGYN Provider 01/01/23 documented as of this encounter
--- OUTSIDE RECORDS SUMMARY | 2023-11-04 21:58 | XMS_ITS | Encounter Summary ---
Author Name Unknown Organization [place] Address [address] [place] [address] Care Team Providers Care Race Relations Professor Name Role Phone Abbey Bagley PA-C Unavailable [...] Answer Date Recorded PHQ-2 Score 2 11/26/2022 [place] Depression Scale Answer Date Recorded [place] Depression Score 13 03/10/2021 Last EPDS Self [...] documented as of this encounter Care Teams Race Relations Professor Relationship Specialty Start Date End Date Abbey Bagley PA-C PCP - General Physician Straight Edger 08/15/20 Abbey Bagley PA-C Physician Straight Edger 04/11/20 05/02/23 Ino Robbins MD [address] [place] [address] Assigned OBGYN Provider 01/01/23 documented as of this encounter
--- OUTSIDE RECORDS SUMMARY | 2023-11-04 21:58 | XMS_ITS | Encounter Summary ---
Author Name Unknown Organization [place] Address [address] [facility] [place] [address] Care Team Providers Care Golf Ball Cover Treater Name Role Phone Abbey Bagley PA-C Unavailable Unavailable Abbey Bagley PA-C Primary Care Provider Ino Ken MD Unavailable Reason for Visit * Reason Comments Rule Out Labor Encounter Details Date Type Department Care Team (Latest Contact Info) Description 04/22/2023 12:14 PM CDT - 04/22/2023 3:10 PM CDT Hospital Encounter [facility] [address] [place] [id number] Vanessa Lopes MD [address] [place] [address] Discharge Disposition: Home or Self Care Social History Tobacco Use Types Packs/Day Years Used Date Smoking Tobacco: Former Cigarettes 0.3 Q uit: 03/10/2023 Passive Smoke Exposure: Never Smokeless Tobacco: Never Alcohol Use Standard Drinks/Week Comments Not Currently 0 (1 standard drink = 0.6 oz pur e alcohol) Seldom PHQ-2 Answer Date Recorded PHQ-2 Score 0 04/14/2023 [place] Depression Scale Answer Date Recorded [place] Depression Score 13 03/10/2021 Last EPDS Self [...] day. Activity: Call your doctor or nurse fabric worker leader if your baby is moving less than [...] CDT Goal Outcome Evaluation: Patient present to [facility] for labor evaluation-patient was being seen by [...] documented as of this encounter Care Teams Golf Ball Cover Treater Relationship Specialty Start Date End Date Abbey Bagley PA-C PCP - General Physician Conversion Worker 08/15/20 Abbey Bagley PA-C Physician Conversion Worker 04/11/20 05/02/23 Ino Robbins MD [address] [place] [address] Assigned OBGYN Provider 01/01/23 documented as of this encounter
--- OUTSIDE RECORDS SUMMARY | 2023-11-04 21:58 | XMS_ITS | Encounter Summary ---
Author Name Unknown Organization [place] Address [address] [place] [address] Care Team Providers Care Mine Laborer Name Role Phone Abbey Bagley PA-C Unavailable Unavailable Abbey Bagley PA-C Primary Care Provider Ino Ken MD Unavailable [phone] Encounter Details Date Type Department Care Team (Latest Contact Info) Description 04/14/2023 Travel Social History Tobacco Use Types Packs/Day Years Used Date Smoking Tobacco: Some Days Cigarettes 0.3 Passive Smoke Exposure: Never Smokeless Tobacco: Never Alcohol Use Standard Drinks/Week Comments Not Currently 0 (1 standard drink = 0.6 oz pur e alcohol) Seldom PHQ-2 Answer Date Recorded PHQ-2 Score 0 04/14/2023 [place] Depression Scale Answer Date Recorded [place] Depression Score 13 03/10/2021 Last EPDS Self [...] as of this encounter Care Teams Mine Laborer Relationship Specialty Start Date End Date Abbey Bagley PA-C PCP - General Physician Senior Policy Analyst 08/15/20 Abbey Bagley PA-C Physician Senior Policy Analyst 04/11/20 05/02/23 Ino Robbins MD [address] [place] [address] Assigned OBGYN Provider 01/01/23 documented as of this encounter
--- OUTSIDE RECORDS SUMMARY | 2023-11-04 21:59 | XMS_ITS | Encounter Summary ---
Author Name Unknown Organization [place] Address [address] [facility] [place] [address] Care Team Providers Care Mechanical Engineering Officer Name Role Phone Abbey Bagley PA-C Unavailable Unavailable Abbey Bagley PA-C Primary Care Provider Unava ilable Ino Robbins MD Unavailable Reason for Visit * Reason Comments Med Change Request Encounter Details Date Type Department Care Team (Late st Contact Info) Description 03/01/2023 [facility] Women's [facility] [address] [facility] [address] [place] [address] Ino Robbins MD [address] [place] [address] Med Change Request Social History Tobacco Use Types Packs/Day Years Used Date Smoking Tobacco: Some Days Cigarettes 0.3 Smokeless Tobacco: Never Alcohol Use Standard Drinks/Week Comments Not Currently 0 (1 standard drink = 0.6 oz pur e alcohol) Seldom PHQ-2 Answer Date Recorded PHQ-2 Score 2 11/26/2022 [place] Depression Scale Answer Date Recorded [place] Depression Score 13 03/10/2021 Last EPDS Self [...] 03/01/2023 12:31 PM CDT Prescription approved per [facility] Refill Protocol. Diana Rodrigues RN documented in this encounter Plan of Treatment Not on file documented as of this encounter Visit Diagnoses Diagnosis HSV (herpes simplex virus) infection Herpes simplex without mention of complication documented in this encounter Additional Health Concerns Assessment Noted Time PHQ-9 Depression Total Score: 19 021 3:52 PM CDT documented as of this encounter Care Teams Mechanical Engineering Officer Relationship Specialty Start Date End Date Abbey Bagley PA-C PCP - General Physician Qc Analyst 08/15/20 Abbey Bagley PA-C Physician Qc Analyst 04/11/20 05/02/23 Ino Robbins MD [address] [place] [address] Assigned OBGYN Provider 01/01/23 documented as of this encounter
--- OUTSIDE RECORDS SUMMARY | 2023-11-04 21:59 | XMS_ITS | Encounter Summary ---
Author Name Unknown Organization [place] Address [address] [facility] [place] [address] Care Team Providers Care Motor Coach Bus Driver Name Role Phone Abbey Bagley PA-C Unavailable Unavailable Abbey Bagley PA-C Primary Care Provider Unava ilable Ino Robbins MD Unavailable Reason for Visit * Reason Comments Medication Refill Encounter Details Date Type Department Care Team (Late st Contact Info) Description [facility] [address] [place] [address] Ino Robbins MD [address] [place] [address] Medication Refill Social History Tobacco Use Types Packs/Day Years Used Date Smoking Tobacco: Some Days Cigarettes 0.3 Smokeless Tobacco: Never Alcohol Use Standard Drinks/Week Comments Not Currently 0 (1 standard drink = 0.6 oz pur e alcohol) Seldom PHQ-2 Answer Date Recorded PHQ-2 Score 2 11/26/2022 [place] Depression Scale Answer Date Recorded [place] Depression Score 13 03/10/2021 Last EPDS Self [...] 02/10/2023 10:55 AM CDT Prescription approved per [facility] Refill Protocol. Last OV: 01/19/23 which provider [...] documented as of this encounter Care Teams Motor Coach Bus Driver Relationship Specialty Start Date End Date Abbey Bagley PA-C PCP - General Physician Crown Assembly Machine Set Up Mechanic 08/15/20 Abbey Bagley PA-C Physician Crown Assembly Machine Set Up Mechanic 04/11/20 05/02/23 Ino Robbins MD [facility] [place] [address] Assigned OBGYN Provider 01/01/23 documented as of this encounter
--- OUTSIDE RECORDS SUMMARY | 2023-11-04 21:59 | XMS_ITS | Encounter Summary ---
Author Name Unknown Organization [place] Address [address] [place] [address] Care Team Providers Care Developing Machine Tender Name Role Phone Abbey Bagley PA-C Unavailable [...] Coronavirus/COVID-19? No / Unsure 11/26/2022 1:26 PM CHEF ASSISTANT documented as of this encounter Plan of Treatment Not on file documented as of this encounter Visit Diagnoses Not on filedocumented in this encounter Additional Health Concerns Assessment Noted Time PHQ-9 Depression Total Score: 19 021 3:52 PM CDT documented as of this encounter Care Teams Developing Machine Tender Relationship Specialty Start Date End Date Abbey Bagley PA-C PCP - General Physician Customer Experience Manager 08/15/20 Abbey Bagley PA-C Physician Customer Experience Manager 04/11/20 05/02/23 documented as of this encounter
--- OUTSIDE RECORDS SUMMARY | 2023-11-04 21:59 | XMS_ITS | Encounter Summary ---
Author Name Unknown Organization [place] Address [address] [place] [address] Care Team Providers Care Molder Offbearer Name Role Phone Abbey Bagley PA-C Unavailable [...] Answer Date Recorded PHQ-2 Score 2 11/26/2022 [place] Depression Scale Answer Date Recorded [place] Depression Score 13 03/10/2021 Last EPDS Self [...] documented as of this encounter Care Teams Molder Offbearer Relationship Specialty Start Date End Date Abbey Bagley PA-C PCP - General Physician Managed Care Liaison 08/15/20 Abbey Bagley PA-C Physician Managed Care Liaison 04/11/20 05/02/23 Ino Robbins MD [address] [place] [address] Assigned OBGYN Provider 01/01/23 documented as of this encounter
--- OUTSIDE RECORDS SUMMARY | 2023-11-04 21:59 | XMS_ITS | Encounter Summary ---
Author Name Unknown Organization [place] Address [address] [place] [address] Care Team Providers Care Garbage Collector Supervisor Name Role Phone Abbey Bagley PA-C Unavailable Unavailable Abbey Bagley PA-C Primary Care Provider Ino Ken MD Unavailable [phone] Encounter Details Date Type Department Care Team (Latest Contact Info) Description 01/25/2023 Travel Social History Tobacco Use Types Packs/Day Years Used Date Smoking Tobacco: Some Days Cigarettes 0.3 Smokeless Tobacco: Never Alcohol Use Standard Drinks/Week Comments Not Currently 0 (1 standard drink = 0.6 oz pur e alcohol) Seldom PHQ-2 Answer Date Recorded PHQ-2 Score 2 11/26/2022 [place] Depression Scale Answer Date Recorded [place] Depression Score 13 03/10/2021 Last EPDS Self [...] documented as of this encounter Care Teams Garbage Collector Supervisor Relationship Specialty Start Date End Date Abbey Bagley PA-C PCP - General Physician Family Helper 08/15/20 Abbey Bagley PA-C Physician Family Helper 04/11/20 05/02/23 Ino Robbins MD [address] [place] [address] Assigned OBGYN Provider 01/01/23 documented as of this encounter
--- OUTSIDE RECORDS SUMMARY | 2023-11-04 21:59 | XMS_ITS | Encounter Summary ---
Author Name Unknown Organization [place] Address [facility] [place] [address] Care Team Providers Care Diesel Technician Mechanic Name Role Phone Abbey Bagley PA-C Unavailable Unavailable Abbey Bagley PA-C Primary Care Provider Unava ilable Ino Robbins MD Unavailable Reason for Referral * Consultation (Routine) - Pending Review Specialty Diagnoses / Procedures Referred By Bernardo t Referred To Contact Diagnoses care in second trimester Ino Robbins MD [address] [place] [address] [facility] Maternal [facility] [address] [place] [address] Referral ID Status Reason Start Date Expiration Date V isits Requested Visits Authorized [id number] Pending Review 01/19/2023 01/19/2024 1 1 Question Answer Preferred Location: [facility] [place] 05/06/2023 Ultrasound Comprehensive US (>than 18 [...] where they were done to arrange for product picker prior to your scheduled appointment. Any new CT, MRI or other procedures ordered by your specialist must be performed at a [facility] or coordinated by your clinic's referral office. >> List of current medications >> This referral request >> Any documents/labs given to you for this referral Reason for Visit * Reason Comments Care Encounter Details Date Type Department Care Team (Late st Contact Info) Description 01/19/2023 1:30 PM CDT Office Visit [facility] Women's [address] [place] [address] Ino Robbins MD [facility] [place] [address] HSV (herpes simplex virus) infection (Primary Dx); [...] Answer Date Recorded PHQ-2 Score 2 11/26/2022 [place] Depression Scale Answer Date Recorded [place] Depression Score 13 03/10/2021 Last EPDS Self [...] Body Mass Index 32.36 11/04/2022 3:15 PM SUPERVISOR LEAF SPRING REPAIR documented in this encounter Progress Notes * Ino Robbins MD - 01/19/2023 1:30 PM CDT 22yo at 24w5d. Was planning to relocate to [place] but found housing conditions filthy. Ants,mold, etc. Has had diarrhea off and on. Concerned about an intestinal parasite. Will check stool culture and O&P. Needs follow up U/S to visualize LVOT not yet well seen. MFM referral placed. Unsure if she plans to remain in [place] for delivery. RTC 4 weeks with GCT documented in this encounter Nursing Notes * Shelly Pedraza CMA - 01/19/2023 1:30 PM CDT Chief Complaint Patient presents with ??? Care 24w5d Moving back from [place] initial BP 114/74 Wt 93.7 kg (206 [...] performed by multiplexed, qualitative PCR using the XYDO Enteric Pathogens Nucleic Acid Test. Results should [...] 2. Ino Robbins MD LAB - MICRO [employer] ORDERABLES Performing Organization Address City/[facility] Co de Phone Number UU IDD LABORATORY [facility] Inf. Diseases Diag. Lab [address] [facility], [address] [address], [facility] [phone] * Ova and Parasite Exam Routine (01/19/2023 2:50 PM CDT) [facility] OVA AND PARASITE EXAM Negative Negative RHIANNA [...] method. Ino Robbins MD LAB - MICRO [employer] ORDERABLES [facility] IDD LABORATORY [facility] Inf. Diseases Diag. Lab [address] [facility], [address] [address], [facility] [phone] * (ABNORMAL) Wet prep - Clinic Collect [...] - MICRO GE NERAL ORDERABLES [place] LABORATORY [facility] [address] [facility], [address] [place] [address] [phone] documented in this encounter Visit Diagnoses Diagnosis HSV (herpes simplex virus) infection- Primary Herpes simplex without mention of complication Current mild episode of major depressive disorder, unspecified whether recurrent (H24) care in second trimester documented in this encounter Additional Health Concerns Assessment Noted Time PHQ-9 Depression Total Score: 19 08/2 021 3:52 PM CDT documented as of this encounter Care Teams Diesel Technician Mechanic Relationship Specialty Start Date End Date Abbey Bagley PA-C PCP - General Physician Specialty Trimmer 08/15/20 Abbey Bagley PA-C Physician Specialty Trimmer 04/11/20 05/02/23 Ino Robbins MD [address] [place] [address] Assigned OBGYN Provider 01/01/23 documented as of this encounter
--- OUTSIDE RECORDS SUMMARY | 2023-11-04 21:59 | XMS_ITS | Encounter Summary ---
Author Name Unknown Organization [place] Address [address] [facility] [place] [address] Care Team Providers Care Hip Hop Dancer Name Role Phone Abbey Bagley PA-C Unavailable Unavailable Abbey Bagley PA-C Primary Care Provider Unava ilIno Reynolds MD Unavailable [phone] Reason for Visit * Reason Comments Ultrasound L2-LVOT not well see n Encounter Details Date Type Department Care Team (Late st Contact Info) Description 01/19/2023 PRE VISIT [facility] [place] [address] [facility] [address] [place] [address] Michelle Avina, LUCÍA Ultrasound (L2-LVOT not well seen) Social History Tobacco Use Types Packs/Day Years Used Date Smoking Tobacco: Some Days Cigarettes 0.3 Smokeless Tobacco: Never Alcohol Use Standard Drinks/Week Comments Not Currently 0 (1 standard drink = 0.6 oz pur e alcohol) Seldom PHQ-2 Answer Date Recorded PHQ-2 Score 2 11/26/2022 [place] Depression Scale Answer Date Recorded [place] Depression Score 13 03/10/2021 Last EPDS Self [...] documented as of this encounter Care Teams Hip Hop Dancer Relationship Specialty Start Date End Date Abeby Bagley PA-C PCP - General Physician Inventory Associate And Driver 08/15/20 Abbey Bagley PA-C Physician Inventory Associate And Driver 04/11/20 05/02/23 Ino Robbins MD [facility] [place] [place] [address] Assigned OBGYN Provider 01/01/23 documented as of this encounter
--- OUTSIDE RECORDS SUMMARY | 2023-11-04 21:59 | XMS_ITS | Encounter Summary ---
Author Name Unknown Organization [place] Address [facility] [place] [address] Care Team Providers Care Busperson Name Role Phone Abbey Bagley PA-C Unavailable Unavailable Abbey Bagley PA-C Primary Care Provider Kelley Ko DO Unavailable [phone] Encounter Details Date Type Department Care Team (Latest Contact Info) Description 12/24/2022 Travel Social History Tobacco Use Types Packs/Day Years Used Date Smoking Tobacco: Some Days Cigarettes 0.3 Smokeless Tobacco: Never Alcohol Use Standard Drinks/Week Comments Not Currently 0 (1 standard drink = 0.6 oz pur e alcohol) Seldom PHQ-2 Answer Date Recorded PHQ-2 Score 2 11/26/2022 [place] Depression Scale Answer Date Recorded [place] Depression Score 13 03/10/2021 Last EPDS Self [...] documented as of this encounter Care Teams Busperson Relationship Specialty Start Date End Date Abbey Bagley PA-C PCP - General Physician Urban Planning Teacher 08/15/20 Abbey Bagley PA-C Physician Urban Planning Teacher 04/11/20 05/02/23 Kelley Diane DO [address] [address] Assigned OBGYN Provider 12/04/22 documented as of this encounter
--- OUTSIDE RECORDS SUMMARY | 2023-11-04 21:59 | XMS_ITS | Encounter Summary ---
Author Name Unknown Organization [place] Address [address] [place] [address] Care Team Providers Care Recreation Therapist Name Role Phone Abbey Bagley PA-C Unavailable Unavailable Abbey Bagley PA-C Primary Care Provider Kelley Ko DO Unavailable Reason for Visit * Diagnostic Imaging Ultrasound (Routine) - Pending Review Specialty Diagnoses / Procedures Referred By Bernardo belle Referred To Contact Radiology. Diagnoses care in second trimester Procedures US OB >14 Weeks Follow Up Ino Robbins MD [address] [place] [address] Referral ID Status Reason Start Date Expiration Date V isits Requested Visits Authorized [id number] Pending Review 12/14/2022 12/14/2023 1 1 Encounter Details Date Type Department Care Team (Late st Contact Info) Description 12/30/2022 3:40 PM CDT Ancillary Procedure [address] [address] Ino Robbins MD [address] [place], [place] [address] care in second trimester Social History Tobacco Use Types Packs/Day Years Used Date Smoking Tobacco: Some Days Cigarettes 0.3 Smokeless Tobacco: Never Alcohol Use Standard Drinks/Week Comments Not Currently 0 (1 standard drink = 0.6 oz pur e alcohol) Seldom PHQ-2 Answer Date Recorded PHQ-2 Score 2 11/26/2022 [place] Depression Scale Answer Date Recorded [place] Depression Score 13 03/10/2021 Last EPDS Self [...] from the original result was not included. [facility] ULTRASOUND - OB FOLLOW UP > [...] documented as of this encounter Care Teams Recreation Therapist Relationship Specialty Start Date End Date Abbey Bagley PA-C PCP - General Physician Depot Manager 08/15/20 Abbey Bagley PA-C Physician Depot Manager 04/11/20 05/02/23 Kelley Diane DO [address] [address] Assigned OBGYN Provider 12/04/22 documented as of this encounter
--- OUTSIDE RECORDS SUMMARY | 2023-11-04 21:59 | XMS_ITS | Encounter Summary ---
Author Name Unknown Organization [place] Address [address] [facility] [place] [address] Care Team Providers Care All Around Presser Name Role Phone Abbey [place] PA-C Unavailable Unavailable Abbey [place] PA-C Primary Care Provider Kelley Ko DO Unavailable [phone] Reason for Visit * Diagnostic Imaging Ultrasound (Routine) - Pending Review Specialty Diagnoses / Procedures Referred By Bernardo t Referred To Contact Radiology. Diagnoses Encounter for supervision of other normal in second trimester Procedures US OB > 14 Weeks Ino Robbins MD [address] [place] [address] Referral ID Status Reason Start Date Expiration Date V isits Requested Visits Authorized [id number] Pending Review 11/23/2022 11/23/2023 1 1 Encounter Details Date Type Department Care Team (Late st Contact Info) Description 12/13/2022 11:00 AM LIAISON PLANNER Ancillary Procedure [facility] [address] [facility] [address] [place] [address] Ino Robbins MD [address] [place] [address] Encounter for supervision of other normal in second trimester Social History Tobacco Use Types Packs/Day Years Used Date Smoking Tobacco: Some Days Cigarettes 0.3 Smokeless Tobacco: Never Alcohol Use Standard Drinks/Week Comments Not Currently 0 (1 standard drink = 0.6 oz pur e alcohol) Seldom PHQ-2 Answer Date Recorded PHQ-2 Score 2 11/26/2022 [place] Depression Scale Answer Date Recorded [place] Depression Score 13 03/10/2021 Last EPDS Self [...] Coronavirus/COVID-19? No / Unsure 12/13/2022 10:57 AM LIAISON PLANNER documented as of this encounter Plan of Treatment Not on file documented as of this encounter Procedures Procedure Name Priority Date/Time Associated Diagnosis Comments US OB > 14 WEEKS Routine 12/13/2022 11:5 0 AM LIAISON PLANNER Encounter for supervision of other normal in second trimester documented in this encounter Results * US OB > 14 Weeks (12/13/2022 11:50 AM LIAISON PLANNER) Anatomical Region Laterality Modality Abdomen/Pelvis Ultrasound Narrative 12/13/2022 1:08 PM LIAISON PLANNER Table formatting from the original result was not included. [facility] Obstetrics and Gynecology ?? ULTRASOUND [...] Godwin Latham MD FACOG Obstetrics and Gynecology [facility] Ino Robbins MD IMG US ORDERAB LES documented in this encounter Visit Diagnoses Diagnosis Encounter for supervision of other normal in second trimester documented in this encounter Additional Health Concerns Assessment Noted Time PHQ-9 Depression Total Score: 19 021 3:52 PM CDT documented as of this encounter Care Teams All Around Presser Relationship Specialty Start Date End Date Abbey [place] PA-C PCP - General Physician Chip Crusher Operator 08/15/20 Abbey [place] PA-C Physician Chip Crusher Operator 04/11/20 05/02/23 Kelley Diane DO [address] [address] Assigned OBGYN Provider 12/04/22 documented as of this encounter
--- OUTSIDE RECORDS SUMMARY | 2023-11-04 21:59 | XMS_ITS | Encounter Summary ---
Author Name Unknown Organization [place] Address [address] [place] [address] Care Team Providers Care Wastewater Superintendent Name Role Phone Abbey [place] PA-C Unavailable Unavailable Abbey [place] PA-C Primary Care Provider Unava ilable Pawel Guardado MD Unavailable Reason for Referral * Diagnostic Imaging Ultrasound (Routine) - Pending Review Specialty Diagnoses / Procedures Referred By Contac t Referred To Contact Radiology. Diagnoses related condition, antepartum Procedures [facility] US Pawel Forte MD [address] [place] [address] Referral ID Status Reason Start Date Expiration Date V isits Requested Visits Authorized [id number] Pending Review 01/19/2023 01/19/2024 1 1 Reason for Visit * Diagnostic Imaging Ultrasound (Routine) - Pending Review Specialty Diagnoses / Procedures Referred By Contac t Referred To Contact Radiology. Diagnoses related condition, antepartum Procedures [facility] US Pawel Forte MD [address] [place] [address] Referral ID Status Reason Start Date Expiration Date V isits Requested Visits Authorized [id number] Pending Review 01/19/2023 01/19/2024 1 1 Encounter Details Date Type Department Care Team (Late st Contact Info) Description 01/25/2023 10:11 AM CDT - 01/25/2023 11:59 PM CDT Hospital Encounter [facility] [address] [facility] [address] [place] [address] Pawel Guardado MD [address] [place] [address] Camden Flores MD [address] [place] [address] [address] [place], [place] [id number] related condition, antepartum Discharge Disposition: Home or Self Care Social History Tobacco Use Types Packs/Day Years Used Date Smoking Tobacco: Some Days Cigarettes 0.3 Smokeless Tobacco: Never Alcohol Use Standard Drinks/Week Comments Not Currently 0 (1 standard drink = 0.6 oz pur e alcohol) Seldom PHQ-2 Answer Date Recorded PHQ-2 Score 2 11/26/2022 [place] Depression Scale Answer Date Recorded [place] Depression Score 13 03/10/2021 Last EPDS Self [...] Procedure Name Priority Date/Time Associated Diagnosis Comments [facility] US COMPREHENSIVE SINGLE Routine 01/25/2023 11:28 AM CDT related condition, antepartum documented in this encounter Results * [facility] US Comprehensive Single (01/25/2023 11:28 AM [...] JACK Study Date: 01/25/2023 10:19am Pat. NO: [id number] Referring ??MD: PAWEL GUARDADO Site: [facility] Reach Lift Truck Driver: Arthur Herman RDMS : 2000 Age: 22 [...] lb 13 ? oz EFW by ?Hadlock ([id number]) Head / Face / Neck Biometry: Heeler ? 7.7 ? mm CM ?6.9 ? [...] vena cava. Inferior vena cava. 3-vessel view. 1-mivjqy-gncohla view. ? Cardiac position. Cardiac size. Cardiac [...] Pat. Name:Loki JACK Date:01/25/2023 10:19am Pat. NO: [id number] MD:PAWEL GUARDADO [facility] Herman RD[facility] :2000Age:22 ----- INDICATION ----- [...] 1 lb 13 oz EFW by Hadlock ([id number]) Head / Face / Neck Biometry: Heeler 7.7 mm CM 6.9 mm ANATOMY ----- The following structures appear normal: Head / Neck Cranium. Head size. Head shape.Lateral ventricles. Choroid plexus. Midline falx. Cavum septi pellucidi.Cerebellum. Cisterna magna. Parenchyma. Thalami. Vermis. Neck. Face Lips. Heart / Thorax RVOT view. LVOT view. Situs. Aorticarch view. Bicaval view. Superior vena cava. Inferior vena cava. 3-vesselview. 9-kdhnls-ulzoxij view. Cardiac position. Cardiac size.Cardiac rhythm. Diaphragm. [...] normal for gestational age. Pawel Guardado MD [facility] ORD RADHA documented in this encounter Visit Diagnoses Diagnosis related condition, antepartum documented in this encounter Additional Health Concerns Assessment Noted Time PHQ-9 Depression Total Score: 19 021 3:52 PM CDT documented as of this encounter Care Teams Wastewater Superintendent Relationship Specialty Start Date End Date Abbey [place] PA-C PCP - General Physician Machine Grainer 08/15/20 Abbey [place] PA-C Physician Machine Grainer 04/11/20 05/02/23 Pawel Guardado MD [facility] [address] [address] Assigned OBGYN Provider 01/01/23 documented as of this encounter
--- OUTSIDE RECORDS SUMMARY | 2023-11-04 21:59 | XMS_ITS | Encounter Summary ---
Author Name Unknown Organization [place] Address [facility] [place] [address] Care Team Providers Care Rewinder Operator Helper Name Role Phone Abbey [place] PA-C Unavailable Unavailable Abbey [place] PA-C Primary Care Provider Kelley Ko DO Unavailable [phone] Reason for Visit * Reason Comments Care Encounter Details Date Type Department Care Team (Late st Contact Info) Description 12/24/2022 1:30 PM CDT Office Visit [address] [place] [address] Ino Robbins MD [address] [place], [place] [address] care in second trimester (Primary Dx) Social History Tobacco Use Types Packs/Day Years Used Date Smoking Tobacco: Some Days Cigarettes 0.3 Smokeless Tobacco: Never Tobacco Cessation:Ready to Q uit: Not Asked; Counseling Given: Not Answered Alcohol Use Standard Drinks/Week Comments Not Currently 0 (1 standard drink = 0.6 oz pur e alcohol) Seldom PHQ-2 Answer Date Recorded PHQ-2 Score 2 11/26/2022 [place] Depression Scale Answer Date Recorded [place] Depression Score 13 03/10/2021 Last EPDS Self [...] Body Mass Index 31.48 11/04/2022 3:15 PM WELDER ASSEMBLER documented in this encounter Progress Notes * Ino Robbins MD - 12/24/2022 1:30 PM CDT 22yo at 23w0d. Relocating to [place] at the end of the month. Has [...] documented as of this encounter Care Teams Rewinder Operator Helper Relationship Specialty Start Date End Date Abbey [place] PA-C PCP - General Physician Russet Repairer 08/15/20 Abbey [place] PA-C Physician Russet Repairer 04/11/20 05/02/23 Kelley Diane DO [address] [address] Assigned OBGYN Provider 12/04/22 documented as of this encounter
--- OUTSIDE RECORDS SUMMARY | 2023-11-04 21:59 | XMS_ITS | Encounter Summary ---
Author Name Unknown Organization [place] Address [address] [facility] [place] [address] Care Team Providers Care Client Support Representative Name Role Phone Abbey [place] PA-C Unavailable Unavailable Abbey [place] PA-C Primary Care Provider UnaKelley Guillaume DO Unavailable [phone] Ino Robbins MD Unavailable [phone] Encounter Details Date Type Department Care Team (Late st Contact Info) Description 12/07/2022 [facility] [address] [place] [id number] Diana Rainey, RN Social History Tobacco Use Types Packs/Day Years Used Date Smoking Tobacco: Some Days Cigarettes 0.3 Smokeless Tobacco: Never Alcohol Use Standard Drinks/Week Comments Not Currently 0 (1 standard drink = 0.6 oz pur e alcohol) Seldom PHQ-2 Answer Date Recorded PHQ-2 Score 2 11/26/2022 [place] Depression Scale Answer Date Recorded [place] Depression Score 13 03/10/2021 Last EPDS Self [...] Coronavirus/COVID-19? No / Unsure 11/26/2022 1:26 PM BRIDGE BUILDER documented as of this encounter Plan of Treatment Not on file documented as of this encounter Visit Diagnoses Not on filedocumented in this encounter Additional Health Concerns Assessment Noted Time PHQ-9 Depression Total Score: 19 021 3:52 PM CDT documented as of this encounter Care Teams Client Support Representative Relationship Specialty Start Date End Date Abbey [place] PA-C PCP - General Physician Computer Systems Information Director 08/15/20 Abbey [place] PA-C Physician Computer Systems Information Director 04/11/20 05/02/23 Kelley Diane DO [address] [address] Assigned OBGYN Provider 12/04/22 Ino Robbins MD [address] [place] [address] Assigned OBGYN Provider 01/01/23 documented as of this encounter
--- OUTSIDE RECORDS SUMMARY | 2023-11-04 21:59 | XMS_ITS | Encounter Summary ---
Author Name Unknown Organization [place] Address [facility] [place] [address] Care Team Providers Care Board Design Engineer Name Role Phone Abbey [place] PA-C Unavailable Unavailable Abbey [place] PA-C Primary Care Provider Kelley Ko DO Unavailable [phone] Encounter Details Date Type Department Care Team (Latest Contact Info) Description 12/30/2022 Travel Social History Tobacco Use Types Packs/Day Years Used Date Smoking Tobacco: Some Days Cigarettes 0.3 Smokeless Tobacco: Never Alcohol Use Standard Drinks/Week Comments Not Currently 0 (1 standard drink = 0.6 oz pur e alcohol) Seldom PHQ-2 Answer Date Recorded PHQ-2 Score 2 11/26/2022 [place] Depression Scale Answer Date Recorded [place] Depression Score 13 03/10/2021 Last EPDS Self [...] documented as of this encounter Care Teams Board Design Engineer Relationship Specialty Start Date End Date Abbey [place] PA-C PCP - General Physician Oracle Programmer 08/15/20 Abbey [place] PA-C Physician Oracle Programmer 04/11/20 05/02/23 Kelley Diane DO [address] [address] Assigned OBGYN Provider 12/04/22 documented as of this encounter
--- OUTSIDE RECORDS SUMMARY | 2023-11-04 21:59 | XMS_ITS | Encounter Summary ---
Author Name Unknown Organization [place] Address [facility] [place] [address] Care Team Providers Care Woodyard Crane Operator Name Role Phone Abbey [place] PA-C Unavailable Unavailable Abbey [place] PA-C Primary Care Provider Kelley Ko DO Unavailable [phone] Encounter Details Date Type Department Care Team (Latest Contact Info) Description 12/13/2022 Travel Social History Tobacco Use Types Packs/Day Years Used Date Smoking Tobacco: Some Days Cigarettes 0.3 Smokeless Tobacco: Never Alcohol Use Standard Drinks/Week Comments Not Currently 0 (1 standard drink = 0.6 oz pur e alcohol) Seldom PHQ-2 Answer Date Recorded PHQ-2 Score 2 11/26/2022 [place] Depression Scale Answer Date Recorded [place] Depression Score 13 03/10/2021 Last EPDS Self [...] Coronavirus/COVID-19? No / Unsure 12/13/2022 10:57 AM FLIGHT DECK OFFICER documented as of this encounter Plan of Treatment Not on file documented as of this encounter Visit Diagnoses Not on filedocumented in this encounter Additional Health Concerns Assessment Noted Time PHQ-9 Depression Total Score: 19 021 3:52 PM CDT documented as of this encounter Care Teams Woodyard Crane Operator Relationship Specialty Start Date End Date Abbey [place] PA-C PCP - General Physician Assembly Machine Set Up Mechanic 08/15/20 Abbey [place] PA-C Physician Assembly Machine Set Up Mechanic 04/11/20 05/02/23 Kelley Diane DO [address] [address] Assigned OBGYN Provider 12/04/22 documented as of this encounter
--- OUTSIDE RECORDS SUMMARY | 2023-11-04 21:59 | XMS_ITS | Encounter Summary ---
Author Name Unknown Organization [place] Address [address] [facility] [place] [address] Care Team Providers Care Fire Hydrant Operator Name Role Phone Abbey [place] PA-C Unavailable Unavailable Abbey [place] PA-C Primary Care Provider Kelley Ko DO Unavailable [phone] Reason for Referral * Diagnostic Imaging Ultrasound (Routine) - Pending Review Specialty Diagnoses / Procedures Referred By Bernardo t Referred To Contact Radiology. Diagnoses care in second trimester Procedures US OB >14 Weeks Follow Up Ino Robbins MD [address] [place] [address] Referral ID Status Reason Start Date Expiration Date V isits Requested Visits Authorized [id number] Pending Review 12/14/2022 12/14/2023 1 1 TY SHERIFF LIEUTENANT Encounter Details Date Type Department Care Team (Late st Contact Info) Description 12/14/2022 Orders Only [facility] [address] [place] [address] Ino Robbins MD [address] [place], [place] [address] care in second trimester (Primary Dx) Social History Tobacco Use Types Packs/Day Years Used Date Smoking Tobacco: Some Days Cigarettes 0.3 Smokeless Tobacco: Never Alcohol Use Standard Drinks/Week Comments Not Currently 0 (1 standard drink = 0.6 oz pur e alcohol) Seldom PHQ-2 Answer Date Recorded PHQ-2 Score 2 11/26/2022 [place] Depression Scale Answer Date Recorded [place] Depression Score 13 03/10/2021 Last EPDS Self [...] Coronavirus/COVID-19? No / Unsure 12/13/2022 10:57 AM DEPUTY SHERIFF LIEUTENANT documented as of this encounter Plan of [...] satisfactory interval growth with composite EFW 24%ile aCmila Ledezma MD Note: federal law requires the [...] from the original result was not included. [facility] ULTRASOUND - OB FOLLOW UP > [...] documented as of this encounter Care Teams Fire Hydrant Operator Relationship Specialty Start Date End Date Abbey [place] PA-C PCP - General Physician Cement Mason 08/15/20 Abbey [place] PA-C Physician Cement Mason 04/11/20 05/02/23 Kelley Diane DO [address] [address] Assigned OBGYN Provider 12/04/22 documented as of this encounter
--- OUTSIDE RECORDS SUMMARY | 2023-11-04 21:59 | XMS_ITS | Encounter Summary ---
Author Name Unknown Organization [place] Address [facility] [place] [address] Care Team Providers Care Powdered Metal Supervisor Name Role Phone Abbey [place] PA-C Unavailable Unavailable Abbey [place] PA-C Primary Care Provider Kelley Ko DO Unavailable [phone] Encounter Details Date Type Department Care Team (Latest Contact Info) Description 12/12/2022 Travel Social History Tobacco Use Types Packs/Day Years Used Date Smoking Tobacco: Some Days Cigarettes 0.3 Smokeless Tobacco: Never Alcohol Use Standard Drinks/Week Comments Not Currently 0 (1 standard drink = 0.6 oz pur e alcohol) Seldom PHQ-2 Answer Date Recorded PHQ-2 Score 2 11/26/2022 [place] Depression Scale Answer Date Recorded [place] Depression Score 13 03/10/2021 Last EPDS Self [...] Coronavirus/COVID-19? No / Unsure 12/12/2022 12:48 PM DIRECTOR OF CORPORATE STRATEGY documented as of this encounter Plan of Treatment Not on file documented as of this encounter Visit Diagnoses Not on filedocumented in this encounter Additional Health Concerns Assessment Noted Time PHQ-9 Depression Total Score: 19 05/14/ 021 3:52 PM CDT documented as of this encounter Care Teams Powdered Metal Supervisor Relationship Specialty Start Date End Date Abbey [place] PA-C PCP - General Physician Senior Civil Engineer 08/15/20 Abbey [place] PA-C Physician Senior Civil Engineer 04/11/20 05/02/23 Kelley Diane DO [address] [address] Assigned OBGYN Provider 12/04/22 documented as of this encounter
--- OUTSIDE RECORDS SUMMARY | 2023-11-04 21:59 | XMS_ITS | Encounter Summary ---
Author Name Unknown Organization [place] Address [address] [facility] [place] [place] [address] Care Team Providers Care Meter Calibrator Name Role Phone Abbey [place] PA-C Unavailable Unavailable Abbey Bag[place] PA-C Primary Care Provider Unava ilable Ino Guardado MD Unavailable [phone] Reason for Referral * Diagnostic Imaging Ultrasound (Routine) - Pending Review Specialty Diagnoses / Procedures Referred By Contreno t Referred To Contact Radiology. Diagnoses related condition, antepartum Procedures [facility] US Comprehensive Single Ino Guardado MD [address] [place] [address] Referral ID Status Reason Start Date Expiration Date V isits Requested Visits Authorized [id number] Pending Review 01/19/2023 01/19/2024 1 1 Encounter Details Date Type Department Care Team (Late st Contact Info) Description 01/19/2023 Transcribe Orders [facility] [place] [address] [place] [address] Ino Guardado MD [address] [place], [place] [id number] related condition, antepartum (Primary Dx) Social History Tobacco Use Types Packs/Day Years Used Date Smoking Tobacco: Some Days Cigarettes 0.3 Smokeless Tobacco: Never Alcohol Use Standard Drinks/Week Comments Not Currently 0 (1 standard drink = 0.6 oz pur e alcohol) Seldom PHQ-2 Answer Date Recorded PHQ-2 Score 2 11/26/2022 [place] Depression Scale Answer Date Recorded [place] Depression Score 13 03/10/2021 Last EPDS Self [...] documented as of this encounter Results * [facility] Comprehensive Single (01/25/2023 11:28 AM CDT) [...] JACK Study Date: 01/25/2023 10:19am Pat. NO: [id number] Referring ??MD: INO GUARDADO Site: [facility] Armed Custom Protection Officer: Arthur Herman RDMS : 2000 Age: 22 [...] lb 13 ? oz EFW by ?Hadlock ([id number]) Head / Face / Neck Biometry: Supervisor Adult Education ? 7.7 ? mm CM ?6.9 ? [...] vena cava. Inferior vena cava. 3-vessel view. 3-mxnngx-gzdtdue view. ? Cardiac position. Cardiac size. Cardiac [...] Pat. Name:Loki JACK Date:01/25/2023 10:19am Pat. NO: [id number] MD:INO GUARDADO [facility] RD[facility] :2000Age:22 ----- INDICATION ----- LVOT [...] 1 lb 13 oz EFW by Lawanda ([id number]) Head / Face / Neck Biometry: Supervisor Adult Education 7.7 mm CM 6.9 mm ANATOMY ----- The following structures appear normal: Head / Neck Cranium. Head size. Head shape.Lateral ventricles. Choroid plexus. Midline falx. Cavum septi pellucidi.Cerebellum. Cisterna magna. Parenchyma. Thalami. Vermis. Neck. Face Lips. Heart / Thorax RVOT view. LVOT view. Situs. Aorticarch view. Bicaval view. Superior vena cava. Inferior vena cava. 3-vesselview. 8-dgnvpt-fgjinhh view. Cardiac position. Cardiac size.Cardiac rhythm. Diaphragm. [...] normal for gestational age. Ino Guardado MD [facility] ORD ERABLES documented in this encounter Visit Diagnoses Diagnosis related condition, antepartum- Primary related condition, antepartum documented in this encounter Additional Health Concerns Assessment Noted Time PHQ-9 Depression Total Score: 021 3:52 PM CDT documented as of this encounter Care Teams Meter Calibrator Relationship Specialty Start Date End Date Abbey [place] PA-C PCP - General Physician Crm Marketing Executive 08/15/20 Abbey [place] PA-C Physician Crm Marketing Executive 04/11/20 05/02/23 Ino Guardado MD [address] [place] [address] Assigned OBGYN Provider 01/01/23 documented as of this encounter
--- OUTSIDE RECORDS SUMMARY | 2023-11-04 21:59 | XMS_ITS | Encounter Summary ---
Author Name Unknown Organization [place] Address [address] [facility] [place] [address] Care Team Providers Care Collaborative Physician Name Role Phone Abbey [place] PA-C Unavailable Unavailable Abbey [place] PA-C Primary Care Provider Unava ilable Ino Robbins MD Unavailable [phone] Reason for Visit * Reason Comments Ultrasound L2-LVOT not well see n on outside scan Encounter Details Date Type Department Care Team (Late st Contact Info) Description 01/25/2023 10:45 AM CDT Office Visit [facility] [place] [address] [facility] [address] [place] [address] Ino Robbins MD [address] [place] [address] Camden Flores MD [address] [place] [address] Suspected anomaly, antepartum, single or unspecified fetus (Primary Dx); Encounter for follow-up ultrasound of anatomy Social History Tobacco Use Types Packs/Day Years Used Date Smoking Tobacco: Some Days Cigarettes 0.3 Smokeless Tobacco: Never Alcohol Use Standard Drinks/Week Comments Not Currently 0 (1 standard drink = 0.6 oz pur e alcohol) Seldom PHQ-2 Answer Date Recorded PHQ-2 Score 2 11/26/2022 [place] Depression Scale Answer Date Recorded [place] Depression Score 13 03/10/2021 Last EPDS Self [...] for details of today's US at the [facility]. Camden Flores MD Maternal- Medicine documented in this encounter Plan of Treatment Not on file documented as of this encounter Visit Diagnoses Diagnosis Suspected anomaly, antepartum, single or unspecified fetus- Primary Encounter for follow-up ultrasound of anatomy documented in this encounter Additional Health Concerns Assessment Noted Time PHQ-9 Depression Total Score: 19 021 3:52 PM CDT documented as of this encounter Care Teams Collaborative Physician Relationship Specialty Start Date End Date Abbey [place] PA-C PCP - General Physician Agency Sales Representative 08/15/20 Abbey [place] PA-C Physician Agency Sales Representative 04/11/20 05/02/23 Ino Robbins MD [address] [place] [address] Assigned OBGYN Provider 01/01/23 documented as of this encounter
--- OUTSIDE RECORDS SUMMARY | 2023-11-04 22:00 | XMS_ITS | Encounter Summary ---
Author Name Unknown Organization [place] Address [address] [facility] [place] [address] Care Team Providers Care Integrity Assessor Name Role Phone Abbey Bagley PA-C Unavailable Unavailable Abbey Bagley PA-C Primary Care Provider Unava ilable Ino Robbins MD Unavailable Azul Gilman DO Unavailable [phone] Kelley Diane DO Unavailable [phone] Ino Robbins MD Unavailable Encounter Details Date Type Department Care Team (Late st Contact Info) Description 04/07/2021 MyC Medical Advice [facility] [address] [place] [phone] Ino Robbins MD [address] [place] [address] Social History Tobacco Use Types Packs/Day Years Used Date Smoking Tobacco: Every Day Cigarettes 0.3 Smokeless Tobacco: Never Alcohol Use Standard Drinks/Week Comments Not Currently 0 (1 standard drink = 0.6 oz pur e alcohol) Seldom PHQ-2 Answer Date Recorded PHQ-2 Score 6 02/19/2021 [place] Depression Scale Answer Date Recorded [place] Depression Score 13 03/10/2021 Last EPDS Self [...] documented as of this encounter Care Teams Integrity Assessor Relationship Specialty Start Date End Date Abbey Bagley PA-C PCP - General Physician Horticulturalist 08/15/20 Abbey Bagley PA-C Physician Horticulturalist 04/11/20 05/02/23 Ino Robbins MD [address] [place] [address] Assigned OBGYN Provider 03/08/21 Azul Gilman DO [address] [place] [address] Assigned Heart and Vascular Provider 03/08/21 09/10/22 Kelley Diane DO [address] [place] [address] Assigned OBGYN Provider 12/04/22 Ino Robbins MD [address] [place] [address] Assigned OBGYN Provider 01/01/23 documented as of this encounter
--- OUTSIDE RECORDS SUMMARY | 2023-11-04 22:00 | XMS_ITS | Encounter Summary ---
Author Name Unknown Organization [place] Address [facility] [place] [address] Care Team Providers Care Community Health Representative Name Role Phone Abbey Bagley PA-C Unavailable Unavailable Abbey Bagley PA-C Primary Care Provider Kelley Ko DO Unavailable Ino Robbins MD Unavailable Encounter Details Date Type Department Care Team (Late st Contact Info) Description 11/22/2022 MyC Medical Advice [address] [place] [address] Di Sher RN Social History Tobacco Use Types Packs/Day Years Used Date Smoking Tobacco: Every Day Cigarettes 0.3 Smokeless Tobacco: Never Alcohol Use Standard Drinks/Week Comments Not Currently 0 (1 standard drink = 0.6 oz pur e alcohol) Seldom PHQ-2 Answer Date Recorded PHQ-2 Score 2 11/26/2022 [place] Depression Scale Answer Date Recorded [place] Depression Score 13 03/10/2021 Last EPDS Self [...] Coronavirus/COVID-19? No / Unsure 11/17/2022 6:32 PM ADVANCED NURSING PROFESSOR documented as of this encounter Plan of Treatment Not on file documented as of this encounter Visit Diagnoses Not on filedocumented in this encounter Additional Health Concerns Assessment Noted Time PHQ-9 Depression Total Score: 19 021 3:52 PM CDT documented as of this encounter Care Teams Community Health Representative Relationship Specialty Start Date End Date Abbey Bagley PA-C PCP - General Physician Cowlman 08/15/20 Abbey Bagley PA-C Physician Cowlman 04/11/20 05/02/23 Kelley Diane DO [address] [address] Assigned OBGYN Provider 12/04/22 Ino Robbins MD [address] [place] [address] Assigned OBGYN Provider 01/01/23 documented as of this encounter
--- OUTSIDE RECORDS SUMMARY | 2023-11-04 22:00 | XMS_ITS | Encounter Summary ---
Author Name Unknown Organization [place] Address [address] [place] [address] Care Team Providers Care Senior Inspector Name Role Phone Abbey Bagley PA-C [...] Answer Date Recorded PHQ-2 Score 4 05/14/2021 [place] Depression Scale Answer Date Recorded [place] Depression Score 13 03/10/2021 Last EPDS Self [...] Coronavirus/COVID-19? No / Unsure 11/04/2022 3:04 PM MAITRE D' documented as of this encounter Plan of Treatment Not on file documented as of this encounter Visit Diagnoses Not on filedocumented in this encounter Additional Health Concerns Assessment Noted Time PHQ-9 Depression Total Score: 19 021 3:52 PM CDT documented as of this encounter Care Teams Senior Inspector Relationship Specialty Start Date End Date Abbey Bagley PA-C PCP - General Physician Agricultural Education Professor 08/15/20 Abbey Bagley PA-C Physician Agricultural Education Professor 04/11/20 05/02/23 Ino Robbins MD [address] [place] [address] Assigned OBGYN Provider 03/08/21 documented as of this encounter
--- OUTSIDE RECORDS SUMMARY | 2023-11-04 22:00 | XMS_ITS | Encounter Summary ---
Author Name Unknown Organization [place] Address [address] [facility] [place] [address] Care Team Providers Care Circular Knife Cutter Machine Name Role Phone Abbey Bagley PA-C Unavailable Unavailable Abbey Bagley PA-C Primary Care Provider Unava ilable Reason for Referral * Diagnostic Imaging Ultrasound (Routine) - Pending Review Specialty Diagnoses / Procedures Referred By Bernardo belle Referred To Contact Radiology. Diagnoses Encounter for supervision of other normal in second trimester Procedures US OB > 14 Weeks Ino Robbins MD [address] [place] [address] Referral ID Status Reason Start Date Expiration Date V isits Requested Visits Authorized [id number] Pending Review 11/23/2022 11/23/2023 1 1 CAL ADMINISTRATOR Reason for Visit * Reason Comments Care New Nurse Doyle villalobos Visit Encounter Details Date Type Department Care Team (Latest Contact Info) Description 11/23/2022 2:15 PM MEDICAL ADMINISTRATOR Office Visit [address] [place] [address] Encounter for supervision of other [...] Answer Date Recorded PHQ-2 Score 2 11/23/2022 [place] Depression Scale Answer Date Recorded [place] Depression Score 13 03/10/2021 Last EPDS Self [...] Coronavirus/COVID-19? No / Unsure 11/17/2022 6:32 PM MEDICAL ADMINISTRATOR documented as of this encounter Progress Notes [...] to this ?: No Di Sher RN CAL ADMINISTRATOR documented in this encounter Plan of Treatment Not on file documented as of this encounter Results * US OB > 14 Weeks (12/13/2022 11:50 AM MEDICAL ADMINISTRATOR) Anatomical Region Laterality Modality Abdomen/Pelvis Ultrasound Narrative 12/13/2022 1:08 PM MEDICAL ADMINISTRATOR Table formatting from the original result was not included. [facility] Obstetrics and Gynecology ?? ULTRASOUND - OB [...] Godwin Latham MD FACOG Obstetrics and Gynecology [facility] Ino Robbins MD [facility] ORDERAB LES * Urine Culture Aerobic Bacterial (11/26/2022 2:37 PM MEDICAL ADMINISTRATOR) Culture 10,000-50,000 CFU/mL Mixture of urogenital chely RHIANNA 11/28/2022 10:50 AM MEDICAL ADMINISTRATOR [facility] Urine MID-STREAM URINE SPECIMEN / Unknown Non-blood Collection / Unknown 11/26/2022 2:37 PM MEDICAL ADMINISTRATOR 11/26/2022 2:37 PM MEDICAL ADMINISTRATOR Kelley Diane DO LAB - MICRO GENER AL ORDERABLES [facility] Inf. Diseases Diag. Lab [address] [facility], [address] [place] [address], [facility] [phone] * Hepatitis C antibody (11/26/2022 2:16 PM MEDICAL ADMINISTRATOR) Hepatitis C Antibody Nonreactive Nonreactive 11/27/2022 2:46 PM MEDICAL ADMINISTRATOR SPECIALTY CORE/PROT/EN DO Blood BLOOD SPECIMEN / Unknown Venipuncture / Unknown 11/26/2022 2:16 PM MEDICAL ADMINISTRATOR 11/26/2022 2:28 PM MEDICAL ADMINISTRATOR Narrative SPECIALTY CORE/PROT/ENDO - 11/27/2022 2:46 PM MEDICAL ADMINISTRATOR Assay performance characteristics have not been established for newborns, infants, and children. Kelley Diane DO LAB - BLOOD ORDER BROOKE UM SPECIALTY CORE/PROT/ENDO Specialty Core/Prot/Endo [address] [facility], [address] [place] [address], [facility] [phone] * Treponema Abs w Reflex to RPR and Titer (11/26/2022 2:16 PM MEDICAL ADMINISTRATOR) Treponema Antibody Total Nonreactive Nonreactive 11/27/2022 10:22 AM MEDICAL ADMINISTRATOR UM SPECIALTY CORE/PROT/EN DO Blood BLOOD SPECIMEN / Unknown Venipuncture / Unknown 11/26/2022 2:16 PM MEDICAL ADMINISTRATOR 11/26/2022 2:28 PM MEDICAL ADMINISTRATOR Kelley Diane DO LAB - BLOOD ORDER BROOKE UM SPECIALTY CORE/PROT/ENDO UM Specialty Core/Prot/Endo [address] [facility] [address], [address] [place] [address], [facility] [phone] * Rubella Antibody IgG Quantitative (11/26/2022 2:16 PM MEDICAL ADMINISTRATOR) Rubella Isabelle IgG Instrument Value 3.93 <0.90 Index 11/29/2022 12:01 PM MEDICAL ADMINISTRATOR SPECIALTY CORE/PROT/END O Rubella Antibody IgG Positive 11/29/2022 12:01 PM MEDICAL ADMINISTRATOR SPECIALTY CORE/PROT/END O Comment:Suggests previous ex posure or immunization and probable immunity. Blood BLOOD SPECIMEN / Unknown Venipuncture / Unknown 11/26/2022 2:16 PM MEDICAL ADMINISTRATOR 11/26/2022 2:27 PM MEDICAL ADMINISTRATOR Kelley Diane DO LAB - BLOOD ORDER BROOKE UM SPECIALTY CORE/PROT/ENDO Specialty Core/Prot/Endo [address] [facility] [address], [address] [place] [address], [facility] [phone] * HIV Antigen Antibody Combo (11/26/2022 2:16 PM MEDICAL ADMINISTRATOR) HIV Antigen Antibody Combo Nonreactive Nonreactive 11/27/2022 2:46 PM MEDICAL ADMINISTRATOR SPECIALTY CORE/PROT/EN DO Comment:HIV-1 p24 Ag & HIV-1 /HIV-2 Ab Not Detected Blood BLOOD SPECIMEN / Unknown Venipuncture / Unknown 11/26/2022 2:16 PM MEDICAL ADMINISTRATOR 11/26/2022 2:28 PM MEDICAL ADMINISTRATOR Kelley Diane DO LAB - BLOOD ORDER BROOKE UM SPECIALTY CORE/PROT/ENDO UM Specialty Core/Prot/Endo [address] [facility] [address], [address] [place] [address], [facility] [phone] * Hepatitis B surface antigen (11/26/2022 2:16 PM MEDICAL ADMINISTRATOR) Hepatitis B Surface Antigen Nonreactive Nonreactive 11/27/2022 2:46 PM MEDICAL ADMINISTRATOR UM SPECIALTY CORE/PROT/EN DO Blood BLOOD SPECIMEN / Unknown Venipuncture / Unknown 11/26/2022 2:16 PM MEDICAL ADMINISTRATOR 11/26/2022 2:28 PM MEDICAL ADMINISTRATOR Kelley Diane DO LAB - BLOOD ORDER BROOKE UM SPECIALTY CORE/PROT/ENDO UM Specialty Core/Prot/Endo [address] [facility] [address] [facility], [address] [place] [address] documented in this encounter Visit Diagnoses Diagnosis Encounter for supervision of other normal in second trimester- Primary Encounter for supervision of other normal in second trimester documented in this encounter Additional Health Concerns Assessment Noted Time PHQ-9 Depression Total Score: 19 05/14/2 021 3:52 PM CDT documented as of this encounter Care Teams Circular Knife Cutter Machine Relationship Specialty Start Date End Date Abbey Bagley PA-C PCP - General Physician Boat Finisher 08/15/20 Abbey Bagley PA-C Physician Boat Finisher 04/11/20 05/02/23 documented as of this encounter
--- OUTSIDE RECORDS SUMMARY | 2023-11-04 22:00 | XMS_ITS | Encounter Summary ---
Author Name Unknown Organization [place] Address [facility] [address] Care Team Providers Care Dirt Shoveler Name Role Phone Abbey Bagley PA-C Unavailable Unavailable Abbey Bagley PA-C Primary Care Provider Unava ilable Reason for Visit * Reason Comments Care New visit 1 7 weeks 0 days Labs & G/C due U/S 11/04 & 12/13/2022 Encounter Details Date Type Department Care Team (Late st Contact Info) Description 11/26/2022 1:30 PM VESSEL CAPTAIN Office Visit [facility] [place] [address] [place] [phone] Kelley Diane, DO [address] [facility] [address] [place] [address] Screen for STD (sexually transmitted disease) (Primary [...] Answer Date Recorded PHQ-2 Score 2 11/26/2022 [place] Depression Scale Answer Date Recorded [place] Depression Score 13 03/10/2021 Last EPDS Self [...] Coronavirus/COVID-19? No / Unsure 11/26/2022 1:26 PM VESSEL CAPTAIN documented as of this encounter Last Filed Vital Signs Vital Sign Reading Time Taken Comments Blood Pressure 92/64 11/26/2022 1:32 PM VESSEL CAPTAIN Pulse - - Temperature - - Respiratory Rate - - Oxygen Saturation - - Inhaled Oxygen Concentration - - Weight 89.9 kg (198 lb 4.8 oz) 11/26/2022 1:32 P M VESSEL CAPTAIN Height - - Body Mass Index 31.06 11/04/2022 3:15 PM VESSEL CAPTAIN documented in this encounter Patient Instructions * Patient Instructions* Kelley Diane, - 11/26/2022 1:30 PM VESSEL CAPTAIN Labs today Return 4 weeks Return to clinic: every 4 weeks till 28 weeks, then every 2 weeks till 36 weeks, then weekly till delivery Phone numbers [place]: Day/ night [phone] ask for ob triage Emergency: Call labor and delivery: [phone] What should I call about?? Contraction every [...] on counting [facility] Address [address], [place] [address] Dr. Kelley Diane DO BASKET BOTTOM MACHINE OPERATOR [facility] EL CAPTAIN documented in this encounter Progress Notes * [...] or equivalent Occupational History ??? 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 Smoking status: Some [...] GENITALIA: BUS WNL, no lesions noted VAGINA: Morning Sun, normal rugae and discharge normal and physiologic, [...] Return: [address] Kelley Diane DO BASKET BOTTOM MACHINE OPERATOR [facility] EL CAPTAIN documented in this encounter Nursing Notes * Kristyn Garland, RN PACU - 11/26/2022 1:30 PM CST Chief Complaint [...] Garland CMA on 11/26/2022 at 1:35 PM EL CAPTAIN documented in this encounter Plan of Treatment Scheduled Orders Name Type Priority Associated Diagnoses Orde r Schedule NEISSERIA GONORRHOEA PCR Microbiology Routine Screen for STD (sexually transmitted disease) Ordered: 11/26/2022 documented as of this encounter Procedures Procedure Name Priority Date/Time Associated Diagnosis Comments URINE CULTURE Routine 11/26/2022 2:37 PM VESSEL CAPTAIN Encounter for supervision of other normal in second trimester TYPE AND SCREEN, ADULT Routine 11/26/2022 2:16 PM VESSEL CAPTAIN Encounter for supervision of other normal in second trimester RUBELLA ANTIBODY IGG Routine 11/26/2022 2:16 PM VESSEL CAPTAIN Encounter for supervision of other normal in second trimester HIV ANTIGEN ANTIBODY COMBO Routine 11/26/2022 2:16 PM VESSEL CAPTAIN Encounter for supervision of other normal in second trimester TREPONEMA ABS W REFLEX TO RPR AND TITER Routine 11/26/2022 2:16 PM VESSEL CAPTAIN Encounter for supervision of other normal in second trimester HEPATITIS C ANTIBODY Routine 11/26/2022 2:16 PM VESSEL CAPTAIN Encounter for supervision of other normal in second trimester HEPATITIS B SURFACE ANTIGEN Routine 11/26/2022 2:16 PM VESSEL CAPTAIN Encounter for supervision of other normal in second trimester ABO/RH TYPE AND SCREEN Routine 11/26/2022 2:16 PM VESSEL CAPTAIN Encounter for supervision of other normal in second trimester CHLAMYDIA TRACHOMATIS PCR Routine 11/26/2022 1:42 PM VESSEL CAPTAIN Screen for STD (sexually transmitted disease) documented in this encounter Results * Urine Culture Aerobic Bacterial (11/26/2022 2:37 PM VESSEL CAPTAIN) Culture 10,000-50,000 CFU/mL Mixture of urogenital chely RHIANNA 11/28/2022 10:50 AM VESSEL CAPTAIN [facility] Urine MID-STREAM URINE SPECIMEN / Unknown Non-blood Collection / Unknown 11/26/2022 2:37 PM VESSEL CAPTAIN 11/26/2022 2:37 PM VESSEL CAPTAIN Kelley Diane DO LAB - MICRO GENER AL ORDERABLES [facility] Inf. Diseases Diag. Lab [address] [facility], [address] [place] [phone], [facility] [phone] * Adult Type and Screen (11/26/2022 2:16 PM VESSEL CAPTAIN) ABO/RH(D) A POS 11/25/2022 6:00 PM VESSEL CAPTAIN RH BLOOD BANK Antibody Screen Negative Negative 11/25/2022 6:00 PM VESSEL CAPTAIN RH BLOOD BANK SPECIMEN EXPIRATION DATE [id number] 11/25/2022 6:00 PM VESSEL CAPTAIN RH BLOOD BANK Blood BLOOD SPECIMEN / Unknown Venipuncture / Unknown 11/26/2022 2:16 PM VESSEL CAPTAIN 11/26/2022 2:27 PM VESSEL CAPTAIN Kelley Diane DO LAB - BLOOD BANK TEST ORDER BLOOD B[place] [address] * Hepatitis C antibody (11/26/2022 2:16 PM VESSEL CAPTAIN) Hepatitis C Antibody Nonreactive Nonreactive 11/27/2022 2:46 PM VESSEL CAPTAIN UM SPECIALTY CORE/PROT/EN DO Blood BLOOD SPECIMEN / Unknown Venipuncture / Unknown 11/26/2022 2:16 PM VESSEL CAPTAIN 11/26/2022 2:28 PM VESSEL CAPTAIN Narrative UM SPECIALTY CORE/PROT/ENDO - 11/27/2022 2:46 PM VESSEL CAPTAIN Assay performance characteristics have not been established for newborns, infants, and children. Kelley Diane DO LAB - BLOOD ORDER BROOKE Performing Organization Address City/[facility]/ZIP Co de Phone Number UM SPECIALTY CORE/PROT/ENDO Specialty Core/Prot/Endo [address] [facility], [address] [phone] * Treponema Abs w Reflex to RPR and Titer (11/26/2022 2:16 PM VESSEL CAPTAIN) Treponema Antibody Total Nonreactive Nonreactive 11/27/2022 10:22 AM VESSEL CAPTAIN SPECIALTY CORE/PROT/EN DO Blood BLOOD SPECIMEN / Unknown Venipuncture / Unknown 11/26/2022 2:16 PM VESSEL CAPTAIN 11/26/2022 2:28 PM VESSEL CAPTAIN Kelley Gloria Benedicto GUZMAN LAB - BLOOD ORDER BROOKE UM SPECIALTY CORE/PROT/ENDO Specialty Core/Prot/Endo [address] [facility], [address] [phone] * Rubella Antibody IgG Quantitative (11/26/2022 2:16 PM VESSEL CAPTAIN) Rubella Isabelle IgG Instrument Value 3.93 <0.90 Index 11/29/2022 12:01 PM VESSEL CAPTAIN UM SPECIALTY CORE/PROT/END O Rubella Antibody IgG Positive 11/29/2022 12:01 PM VESSEL CAPTAIN SPECIALTY CORE/PROT/END O Comment:Suggests previous ex posure or immunization and probable immunity. Blood BLOOD SPECIMEN / Unknown Venipuncture / Unknown 11/26/2022 2:16 PM VESSEL CAPTAIN 11/26/2022 2:27 PM VESSEL CAPTAIN Kelley Diane DO LAB - BLOOD ORDER BROOKE UM SPECIALTY CORE/PROT/ENDO UM Specialty Core/Prot/Endo [address] [facility], [address] [phone] * HIV Antigen Antibody Combo (11/26/2022 2:16 PM VESSEL CAPTAIN) HIV Antigen Antibody Combo Nonreactive Nonreactive 11/27/2022 2:46 PM VESSEL CAPTAIN SPECIALTY CORE/PROT/EN DO Comment:HIV-1 p24 Ag & HIV-1 /HIV-2 Ab Not Detected Blood BLOOD SPECIMEN / Unknown Venipuncture / Unknown 11/26/2022 2:16 PM VESSEL CAPTAIN 11/26/2022 2:28 PM VESSEL CAPTAIN Kelley Diane DO LAB - BLOOD ORDER BROOKE UM SPECIALTY CORE/PROT/ENDO Specialty Core/Prot/Endo [address] [facility], [address] [phone] * Hepatitis B surface antigen (11/26/2022 2:16 PM VESSEL CAPTAIN) Hepatitis B Surface Antigen Nonreactive Nonreactive 11/27/2022 2:46 PM VESSEL CAPTAIN UM SPECIALTY CORE/PROT/EN DO Blood BLOOD SPECIMEN / Unknown Venipuncture / Unknown 11/26/2022 2:16 PM VESSEL CAPTAIN 11/26/2022 2:28 PM VESSEL CAPTAIN Kelley Diane DO LAB - BLOOD ORDER BROOKE UM SPECIALTY CORE/PROT/ENDO UM Specialty Core/Prot/Endo [address] [facility], [address] [place] [address], [facility] [phone] * CHLAMYDIA TRACHOMATIS PCR (11/26/2022 1:42 PM VESSEL CAPTAIN) Chlamydia trachomatis Negative Negative 11/27/2022 12:55 PM VESSEL CAPTAIN [facility] Comment:A negative result by mold capper mediated amplification does not preclude the presence of C. trachomatis infection because results are dependent on proper and adequate collection, absence of inhibitors and sufficient rRNA to be detected. Swab CERVIX UTERI STRUCTURE / Unknown Non-blood Collection / Unknown 11/26/2022 1:42 PM VESSEL CAPTAIN 11/26/2022 3:02 PM VESSEL CAPTAIN Kelley Diane DO LAB - MICRO GENER AL ORDERABLES [facility] Inf. Diseases Diag. Lab [address] [facility], [address] [place] [address], [facility] [phone] documented in this encounter Visit Diagnoses Diagnosis Screen for STD (sexually transmitted disease)- Primary Screening examination for venereal disease care in second trimester Encounter for supervision of other normal in second trimester documented in this encounter Additional Health Concerns Assessment Noted Time PHQ-9 Depression Total Score: 19 08/ 021 3:52 PM CDT documented as of this encounter Care Teams Dirt Shoveler Relationship Specialty Start Date End Date Abbey Bagley PA-C PCP - General Physician Social Science Manager 08/15/20 Abbey Bagley PA-C Physician Social Science Manager 04/11/20 05/02/23 documented as of this encounter
--- OUTSIDE RECORDS SUMMARY | 2023-11-04 22:00 | XMS_ITS | Encounter Summary ---
Author Name Unknown Organization [facility] Address [address] [place] [address] Care Team Providers Care Cadastral Engineer Name Role Phone Abbey Bagley PA-C Unavailable Unavailable Abbey Bagley PA-C Primary Care Provider Unava ilIno Reynolds MD Unavailable [phone] Reason for Visit * Reason Comments Headache Abdominal Pain Back Pain Encounter Details Date Type Department Care Team (Late st Contact Info) Description 11/04/2022 5:28 PM PLANT ETIOLOGIST - 11/04/2022 7:04 PM [facility] Emergency Dept [address] [place] [address] Jillian Multani MD [facility] [address] [facility] [place] [id number] Nonintractable headache, unspecified chronicity pattern, unspecified headache type; 14 weeks gestation of Discharge Disposition: Left Against Medical Advice Social History Tobacco Use Types Packs/Day Years Used Date Smoking Tobacco: Every Day Cigarettes 0.3 Smokeless Tobacco: Never Alcohol Use Standard Drinks/Week Comments Not Currently 0 (1 standard drink = 0.6 oz pur e alcohol) Seldom PHQ-2 Answer Date Recorded PHQ-2 Score 4 05/14/2021 [place] Depression Scale Answer Date Recorded [place] Depression Score 13 03/10/2021 Last EPDS [...] Coronavirus/COVID-19? No / Unsure 11/04/2022 3:04 PM PLANT ETIOLOGIST documented as of this encounter Last Filed Vital Signs Vital Sign Reading Time Taken Comments Blood Pressure 115/79 11/04/2022 3:19 PM PLANT ETIOLOGIST Pulse 83 11/04/2022 3:15 PM PLANT ETIOLOGIST Temperature 36.6 ??C (97.8 ??F) 11/04/2022 3:15 PM CS T Respiratory Rate 16 11/04/2022 3:15 PM PLANT ETIOLOGIST Oxygen Saturation 100% 11/04/2022 3:15 PM PLANT ETIOLOGIST Inhaled Oxygen Concentration - - Weight 89.4 kg (197 lb) 11/04/2022 3:15 PM PLANT ETIOLOGIST Height 170.2 cm (5' 7) 11/04/2022 3:15 PM PLANT ETIOLOGIST Body Mass Index 30.85 11/04/2022 3:15 PM PLANT ETIOLOGIST documented in this encounter Medications at Time [...] states she had to leave to go filler picker child. Pt signed AMA paperwork after Dr. Multani went through risks of leaving. Pt was told to come back with any worsening symptoms. T ETIOLOGIST * Jacque Pitts RN - 11/04/2022 3:17 [...] WDL WDL Cognitive/Neuro/Behavioral WDL Cognitive/Neuro/Behavioral WDL WDL T ETIOLOGIST * Jillian Multani MD - 11/04/2022 3:04 [...] normal gait, negative romberg, no dysdiadochokinesia, normal [id number] testing Appropriate interventions for symptom management were [...] EDC 05/04/2023. CRUZ PATE MD SYSTEM ID: [id number] I mental decision making 14 weeks. I recommended MRI brain and MRV brain to the patient to evaluate for mass bleeding and venous sinus thrombosis given . I recommended treatment with headache medications and fluids. Ultrasound result was discussed with the patient. At this time, she states that she must leave to filler picker her child and is not able to stay for further diagnostic testing. She understands that she is leaving AGAINST MEDICAL ADVICE but may return at any time for further evaluation. She understands that risk of missed intracranial pathology. Jillian Multani MD 11/04/22 1840 Jillian Multani MD 11/05/22 0214 T ETIOLOGIST documented in this encounter Plan of Treatment Not on file documented as of this encounter Procedures Procedure Name Priority Date/Time Associated Diagnosis Comments US OB < 14 WEEKS SINGLE-TRANSABDOMINAL STAT 11/04/2022 4:09 PM PLANT ETIOLOGIST CBC WITH PLATELETS AND DIFFERENTIAL STAT 11/04/2022 3:22 PM PLANT ETIOLOGIST CBC WITH PLATELETS & DIFFERENTIAL STAT 11/04/2022 3:22 PM PLANT ETIOLOGIST HCG QUANTITATIVE STAT 11/04/2022 3:22 PM PLANT ETIOLOGIST documented in this encounter Results * US OB < 14 Weeks Single (11/04/2022 4:09 PM PLANT ETIOLOGIST) Anatomical Region Laterality Modality Abdomen/Pelvis Ultrasound Impressions 11/04/2022 7:34 PM PLANT ETIOLOGIST IMPRESSION: Single living intrauterine gestation at 14 weeks 1 day, EDC 05/04/2023. CRUZ PATE MD SYSTEM ID: [id number] Narrative 11/04/2022 7:34 PM PLANT ETIOLOGIST US OB < 14 WEEKS SINGLE-TRANSABDOMINAL 11/04/2022 [...] EDC 05/04/2023. CRUZ PATE MD SYSTEM ID: [id number] Wagner Moody MD IMG US ORDERABLES * (ABNORMAL) CBC with platelets and differential (11/04/2022 3:22 PM PLANT ETIOLOGIST) WBC Count 9.2 4.0 - 11.0 10e3/uL 11/04/2022 5:49 PM PLANT ETIOLOGIST [facility] RBC Count 5.16 3.80 - 5.20 10e6/uL 11/04/2022 5:49 PM PLANT ETIOLOGIST [facility] Hemoglobin 13.2 11.7 - 15.7 g/dL 11/04/2022 5:49 PM PLANT ETIOLOGIST [facility] Hematocrit 41.7 35.0 - 47.0 % 11/04/2022 5:49 PM PLANT ETIOLOGIST [facility] MCV 81 78 - 100 fL 11/04/2022 5:49 PM PLANT ETIOLOGIST [facility] MCH 25.6(L) 26.5 - 33.0 pg 11/04/2022 5:49 PM PLANT ETIOLOGIST [facility] MCHC 31.7 31.5 - 36.5 g/dL 11/04/2022 5:49 PM PLANT ETIOLOGIST [facility] RDW 15.4(H) 10.0 - 15.0 % 11/04/2022 5:49 PM PLANT ETIOLOGIST [facility] Platelet Count 264 150 - 450 10e3/uL 11/04/2022 5:49 PM PLANT ETIOLOGIST [facility] % Neutrophils 74 % 11/04/2022 5:49 PM PLANT ETIOLOGIST [facility] % Lymphocytes 17 % 11/04/2022 5:49 PM PLANT ETIOLOGIST [facility] % Monocytes 5 % 11/04/2022 5:49 PM PLANT ETIOLOGIST [facility] % Eosinophils 3 % 11/04/2022 5:49 PM PLANT ETIOLOGIST [facility] % Basophils 1 % 11/04/2022 5:49 PM PLANT ETIOLOGIST [facility] % Immature Granulocytes 0 % 11/04/2022 5:49 PM PLANT ETIOLOGIST [facility] NRBCs per 100 WBC 0 <1 /100 023 5:49 PM PLANT ETIOLOGIST [facility] Absolute Neutrophils 6.8 1.6 - 8.3 10e3/uL 11/04/2022 5:49 PM PLANT ETIOLOGIST [facility] Absolute Lymphocytes 1.5 0.8 - 5.3 10e3/uL 11/04/2022 5:49 PM PLANT ETIOLOGIST [facility] Absolute Monocytes 0.5 0.0 - 1.3 10e3/uL 11/04/2022 5:49 PM PLANT ETIOLOGIST [facility] Absolute Eosinophils 0.2 0.0 - 0.7 10e3/uL 11/04/2022 5:49 PM PLANT ETIOLOGIST [facility] Absolute Basophils 0.1 0.0 - 0.2 10e3/uL 11/04/2022 5:49 PM PLANT ETIOLOGIST [facility] Absolute Immature Granulocytes 0.0 <=0.4 10e3/uL 11/04/2022 5:49 PM PLANT ETIOLOGIST [facility] Absolute NRBCs 0.0 10e3/uL 11/04/2022 5:49 PM PLANT ETIOLOGIST [facility] Blood BLOOD SPECIMEN / Unknown Venipuncture / Unknown 11/04/2022 3:22 PM PLANT ETIOLOGIST 11/04/2022 5:43 PM PLANT ETIOLOGIST Jillian Multani MD LAB - BL OOD ORDERABLES [facility] [address] Lab (1st floor, no room number) [place] [address], [facility] [phone] * (ABNORMAL) HCG QUANTitative (blood) (11/04/2022 3:22 PM PLANT ETIOLOGIST) hCG Quantitative 43,965(H) <5 mIU/mL 11/04/19 6:59 PM PLANT ETIOLOGIST [facility] Comment: Adult: 0-5 mIU/mL for healthy non- person Neonates: Should be within normal ranges by 2 days after Blood BLOOD SPECIMEN / Unknown Venipuncture / Unknown 11/04/2022 3:22 PM PLANT ETIOLOGIST 11/04/2022 5:43 PM PLANT ETIOLOGIST Jillian Beba Multani MD LAB - BL OOD ORDERABLES LABORATORY [facility] Lab [address] Lab (1st floor, no room number) [place] [address], [facility] [phone] documented in this encounter Visit Diagnoses Diagnosis [...] Liquid not required. $Given 11/04/2022 3:33 PM PLANT ETIOLOGIST 4 mg documented in this encounter Active and Recently Administered Medications Times are shown in PLANT ETIOLOGIST. Scheduled Medication Order 11/02/2022 11/03/2022 11/04/2022 0.9% [...] documented as of this encounter Care Teams Cadastral Engineer Relationship Specialty Start Date End Date Abbey Bagley PA-C PCP - General Physician Offshore Wind Turbine Technician 08/15/20 Abbey Bagley PA-C Physician Offshore Wind Turbine Technician 04/11/20 05/02/23 Ino Robbins MD [address] [place] [address] Assigned OBGYN Provider 03/08/21 documented as of this encounter
--- OUTSIDE RECORDS SUMMARY | 2023-11-04 22:00 | XMS_ITS | Encounter Summary ---
Author Name Unknown Organization [facility] Address [address] [facility] [place] [address] Care Team Providers Care Seamless Tube Roller Name Role Phone Abbey Bagley PA-C Unavailable Unavailable Abbey Bagley PA-C Primary Care Provider Kelley Ko DO Unavailable [phone] Ino Robbins MD Unavailable [phone] Encounter Details Date Type Department Care Team (Late st Contact Info) Description 11/23/2022 MyC Medical Advice [address] [place] [address] Di Sher RN Social History Tobacco Use Types Packs/Day Years Used Date Smoking Tobacco: Some Days Cigarettes 0.3 Smokeless Tobacco: Never Alcohol Use Standard Drinks/Week Comments Not Currently 0 (1 standard drink = 0.6 oz pur e alcohol) Seldom PHQ-2 Answer Date Recorded PHQ-2 Score 2 11/26/2022 [place] Depression Scale Answer Date Recorded [place] Depression Score 13 03/10/2021 Last EPDS Self [...] Coronavirus/COVID-19? No / Unsure 11/26/2022 1:26 PM INFORMATION SYSTEMS SECURITY MANAGER documented as of this encounter Plan of Treatment Not on file documented as of this encounter Visit Diagnoses Not on filedocumented in this encounter Additional Health Concerns Assessment Noted Time PHQ-9 Depression Total Score: 19 021 3:52 PM CDT documented as of this encounter Care Teams Seamless Tube Roller Relationship Specialty Start Date End Date Abbey Bagley PA-C PCP - General Physician Tariff Compiling Clerk 08/15/20 Abbey Bagley PA-C Physician Tariff Compiling Clerk 04/11/20 05/02/23 Kelley Diane DO [address] [place] [address] [address] Assigned OBGYN Provider 12/04/22 Ino Robbins MD [address] [place] [address] Assigned OBGYN Provider 01/01/23 documented as of this encounter
--- OUTSIDE RECORDS SUMMARY | 2023-11-04 22:00 | XMS_ITS | Encounter Summary ---
Author Name Unknown Organization [facility] Address [address] [place] [address] Care Team Providers Care Coal Wheeler Name Role Phone Abbey Bagley PA-C Unavailable Unavailable Abbey Bagley PA-C Primary Care Provider Unava ilable Ino Robbins MD Unavailable Azul Gilman DO Unavailable [phone] Kelley Diane DO Unavailable [phone] Ino Robbins MD Unavailable Reason for Visit [...] Answer Date Recorded PHQ-2 Score 6 02/19/2021 [place] Depression Scale Answer Date Recorded [place] Depression Score 13 03/10/2021 Last EPDS Self [...] documented as of this encounter Care Teams Coal Wheeler Relationship Specialty Start Date End Date Abbey Bagley PA-C PCP - General Physician Outsole Handler 08/15/20 Abbey Bagley PA-C Physician Outsole Handler 04/11/20 05/02/23 Ino Robbins MD [address] [place] [address] Assigned OBGYN Provider 03/08/21 Azul Gilman DO [address] [place] [address] Assigned Heart and Vascular Provider 03/08/21 09/10/22 Kelley Diane DO [address] [place] [facility] [address] [place] [address] Assigned OBGYN Provider 12/04/22 Ino Robbins MD [address] [place] [address] Assigned OBGYN Provider 01/01/23 documented as of this encounter
--- OUTSIDE RECORDS SUMMARY | 2023-11-04 22:00 | XMS_ITS | Encounter Summary ---
Author Name Unknown Organization [facility] Address [address] [place] [address] Care Team Providers Care Child Care Lead Teacher Name Role Phone Abbey Bagley PA-C [...] points; Administer PHQ-9 if positive 2 11/17/2022 [place] Depression Scale Answer Date Recorded [place] Depression Score 13 03/10/2021 Last EPDS Self [...] Coronavirus/COVID-19? No / Unsure 11/17/2022 6:32 PM SECTION LEADER AND MACHINE SETTER documented as of this encounter Plan of Treatment Not on file documented as of this encounter Visit Diagnoses Not on filedocumented in this encounter Additional Health Concerns Assessment Noted Time PHQ-9 Depression Total Score: 19 021 3:52 PM CDT documented as of this encounter Care Teams Child Care Lead Teacher Relationship Specialty Start Date End Date Abbey Bagley PA-C PCP - General Physician Replenishment Buyer 08/15/20 Abbey Bagley PA-C Physician Replenishment Buyer 04/11/20 05/02/23 Ino Robbins MD [address] [place] [address] Assigned OBGYN Provider 03/08/21 documented as of this encounter
--- OUTSIDE RECORDS SUMMARY | 2023-11-04 22:00 | XMS_ITS ---
Author Name Unknown Organization [facility] Address [address] [place] [address] Care Team Providers Care Children'S Entertainer Name Role Phone Abbey Bagley PA-C Primary Care Provider Ino Ken MD Unavailable Transitional Care Management Status:Closed (Closed) Start date:05/05/2023 End date:05/05/2023 Continued Care and Services Coordination
--- OUTSIDE RECORDS SUMMARY | 2023-11-04 22:00 | XMS_ITS | Clinical Summary ---
Author Name Unknown Organization [employer] Address [place], [place] [address] Care Team Providers Care Oil Rag Washer Name Role Phone Staff, Other Clinical Primary [...] Name Administration Dates Next Due COVID-19 vaccine ([employer] 30mcg/0.3mL) PF, MDV 2021 DTaP 05/23/2007, 7,08/27/2004,08/27,2002,2002 [id number] (Pediarix) 07/16/2004,07/16/2004 HIB PRP-OMP (PedvaxHIB) 07/16/2004 HIB [...] Austin Ledezma MD Complications: Intolera nce Delivery Location:[facility] ( LABOR AND DELIVERY) 05/03 Term 39w [...] - Increase reliability General Yes Praful Orozco, CLIENT SUPPORT REPRESENTATIVE, CROP PULLER Note: Goal identified during: Initial Screening Status: [...] follow-up in two weeks to review her [facility] goals and get a status update [...] 3:46 PM 08/18/2016 1:40 PM Care Teams Oil Rag Washer Relationship Specialty Start Date End Date Staff, Other Clinical . PCP - General 06/05/23
== END 2023-11-04 21:53 | disposition home or self-care (01) ==
LOC: ED 21:51
PROVIDERS: Emergency Provider Internal Medicine; PCP Nurse Practitioner Family
DX: G47.00 Insomnia, unspecified (principal)
CPT/HCPCS: 99282; 99283

== ENCOUNTER 2023-11-10 14:59 | Outpatient (CLI) | payer MEDICAID, SELFPAY ==
--- NOTE | 2023-11-10 15:00 | CRLHL7_ITS ---
For Patients: As a result of the Century Cures Act, medical imaging exams and procedure reports are released immediately into your electronic medical record. You may view this report before your referring provider. If you have questions, please contact your health care provider. CLINICAL HISTORY: F/U on missing IUD String TECHNIQUE: 2D rand scale and color Doppler images were acquired of the pelvis using a transvaginal approach. Comparison 05/14/2023 FINDINGS: On transvaginal imaging, the myometrium has a heterogeneous echotexture. Uterus measures 8.6 x 5.2 x 4.2 cm. The endometrial lining appears normal and measures 5 mm in thickness. IUD in good position within the endometrial canal. The left ovary measures 3.6 x 2.4 x 1.4 cm in size and the right ovary measures 2.8 x 2.5 x 2.0 cm. The ovaries demonstrate normal arterial and venous blood flow on color Doppler analysis. Mild pelvic free fluid. IMPRESSION: IUD located in good position within the endometrial canal. Dictated by Ruddy Mosley MD @ 11/10/2023 3:52:48 PM (Electronically Signed)
--- OUTSIDE RECORDS SUMMARY | 2023-11-10 15:06 | XMS_ITS | Clinical Summary ---
Author Name Unknown Organization [facility] Address [address] [place] [address] Phone Care Team Providers Care Teachers Assistant Name Role Phone Unavailable Primary Care Provider Unavailabl e Source Comments KIHEITAI is fully rolled out on [employer]. Last update 03/14/09.[employer] Allergies Active Allergy Reactions Criticality Noted Date [...] screening 02/05/2005 06/08/20 23 Overview: LW Onset: [id number] ; Child and Teen Check Up Needs Resolved Problems Problem Noted Date Diagnosed Date Resolved Date Acute encephalopathy 05/07/2023 06/08/2023 023 Encounters Date Type Department Care Team Description 11/09/2023 4:30 PM [facility] Internal Medicine Clinics [address] [address] Alfred Lambert APRN, CNP Difficulty sleeping (Primary Dx); Palpitations; PVC (premature ventricular contraction); Carotid artery calcification, unspecified laterality Discharge Disposition: Discharged to home or self care (routine discharge) 10/14/2023 10:00 AM APPEALS WRITER Telemedicine [facility] for [address] [address] Claire Workman, [facility] Karoline Benson MD Discharge Disposition: Discharged to home or self care (routine discharge) 09/30/2023 10:00 AM APPEALS WRITER Telemedicine [facility] [address] [address] Claire Workman, [facility] Karoline Benson MD Discharge Disposition: Discharged to home or self care (routine discharge) 09/23/2023 10:00 AM APPEALS WRITER Telemedicine [facility] for [address] [address] Claire Workman, [facility] Mando Estes DO Discharge Disposition: Discharged to home or self care (routine discharge) 09/09/2023 10:00 AM APPEALS WRITER Telemedicine [facility] [address] [address] Claire Workman, [facility] Discharge Disposition: Discharged to home or self care (routine discharge) 09/07/2023 [facility] for [address] [address] Regina Romero MHW Mother Baby - Mental Health Outreach 08/26/2023 10:00 AM APPEALS WRITER Telemedicine [facility] for [address] [address] Claire Workman, [facility] Discharge Disposition: Discharged to home or self care (routine discharge) 08/19/2023 1:00 PM APPEALS WRITER Telemedicine [facility] [address] [address] Claire Workman, [facility] Mother Baby - Standard Diagnostic Assessment Discharge Disposition: Discharged to home or self care (routine discharge) 08/19/2023 10:00 AM APPEALS WRITER Tele[facility]icine [facility] [address] [address] Claire Workman, [facility] Discharge Disposition: Discharged to home or self care (routine discharge) 08/12/2023 10:00 AM CDT Telemedicine [facility] [address] [address] Claire Workman, [facility] Discharge Disposition: Discharged to home or self care (routine discharge) 08/12/2023 Documentation Only [address] [address] Kiana Borges RN Psych Rehab Health Screen from Last 3 Months [...] Encounters Date Type Department Care Team Description 11/24/2023 1:30 PM APPEALS WRITER Office Visit [facility] Cardiology [facility] [address] [address] Shahbaz Urias MD [address] [place] [address] Scheduled Discharge Disposition: Discharged to home or self care (routine discharge) 01/03/2024 3:00 PM CDT Telemedicine [facility] [address] [place], [place] [address] Trip Nieto MD [address] [place] [id number] Scheduled Discharge Disposition: Discharged to home or [...] 11/26/2022, 1212/2019, 07/01/2020, Additional history exists RSV Infant Immunoglobulin Aged Out No longer eligible based [...] to make safe choices No Claire Workman [facility] Reflective Functioning - MB OTP - To increase capacity to recognize and act on her child(deann)? s needs Care Plan MB OTP - To increase capacity to recognize and act on her child(deann)? s needs No Claire Workman [facility] Developmental Growth - MB OTP - Increase overall functioning and stability by working towards emotional safety, developmental growth and self-agency Care Plan MB OTP - Increase overall functioning and stability by working towards emotional safety, developmental growth and self-agency No Claire Workman [facility] Additional Health Concerns Problem Noted Date Diagnosed [...] Advance Directives For more information, please contact: [phone] Latest Code Status on File Code Status Date Activated Date Inactivated Comments Full Code 06/08/2023 10:12 PM 06/15/2023 1:52 PM Question Answer Comments Does the Patient have prefer ences regarding life sustaining measures (these options only apply when the patient has a pulse): No Discussed Code Status With Whom? Not discussed
--- OUTSIDE RECORDS SUMMARY | 2023-11-10 15:06 | XMS_ITS | Encounter Summary ---
Author Name Unknown Organization [facility] Address [address] [place] [address] Phone Care Team Providers Care Commercial Energy Auditor Name Role Phone Unavailable Primary Care Provider Unavailabl e Reason for Referral * Consult/Test/Treat (Routine) - New Request Specialty Diagnoses / Procedures Referred By Contac t Referred To Contact Neurology/Sleep / SLEEP NEUROLOGY Diagnoses Difficulty sleeping Alfred Lambert APRN, CNP [address] [address] Referral ID Status Reason Start Date Expiration Date V isits Requested Visits Authorized [id number] New Request 11/10/2023 11/09/2024 1 1 SOFTWARE DEVELOPMENT ENGINEER * Consult/Test/Treat (Routine) - New Request Specialty Diagnoses / Procedures Referred By Contac t Referred To Contact Cardiology / CARDIOLOGY Diagnoses Palpitations PVC (premature ventricular contraction) Carotid artery calcification, unspecified laterality Alfred Lambert APRN, CNP [address] [place] [address] Referral ID Status Reason Start Date Expiration Date V isits Requested Visits Authorized [id number] New Request 11/10/2023 11/08/2024 1 1 SOFTWARE DEVELOPMENT ENGINEER Reason for Visit * Reason Comments Referral Encounter Details Date Type Department Care Team Description 11/09/2023 4:30 PM LEAD SOFTWARE DEVELOPMENT ENGINEER [facility] [address] [address] Alfred Lambert APRN, AGRICULTURAL SCIENTIST [address] [address] Difficulty sleeping (Primary Dx); Palpitations; PVC (premature [...] as of this encounter Patient Instructions * Attachments The following attachments cannot be sent through Care Everywhere. * Tips for Getting Better Sleep (Andorran) documented in this encounter Progress Notes * Alfred Lambert APRN, LENNOX - 11/09/2023 4:30 PM CST [facility] Merry Rooney : 2000 Sex: female Medical Decision Makin. Difficulty sleeping Sleep problems - struggle with taking long time falling asleep. Starting at puberty. Sleeps at 1-2AM. Now since , had hypnic jerks keeping her up at night. Will fall asleep but not all the way and somewhat aware and then staying awake. Not panic attack. Some nights she does well and gets 7-9 hours of sleep. Other nights she is waking a lot and tossing and turning. Some nights no sleep. Tried melatonin, benadryl, gabapentin, ativan, magnesium. None of those work. Is not . Not drinking alcohol. She can try OTC meds such as tylenol pm and unisom in duration while awaiting sleep referral. Sleep hygiene written information sent to pt. She want to avoid zquil given adverse reaction to dayquil/nyquil in the past ----wired feeling. ORDERED: - REFERRAL TO SLEEP CENTER 2. Palpitations 3. PVC (premature ventricular contraction) 4. Carotid artery calcification, unspecified laterality Requesting POTS clinic referral for POTS testing. Was at [facility] baby clines corners. Have horrible temperature regulation, cold to hot and vice versa. Stand up her heart races. Sometimes vision goes back andwill want to pass out. Palpitations. Dizziness. Has been going on since teenager since 17 to 18 years old. Had JUDY and that has been corrected to her knowledge. Has been going to clinic in [place]---does not use PSYCHIATRIC. She will request MERY through [place]. 6 months ago had her second child. F/u arrhythmia since teenager. PVCs and holter before. Scan done in ICU and mild calcifications in carotid artery---[facility] records. Unable to view holter results through [facility]. CT HEAD BRAIN 05/06/23 from [facility] INDICATION: Seizure. TECHNIQUE: Noncontrast CT images acquired through the brain. COMPARISON: None. FINDINGS: The ventricles and sulci are within normal limits for patient age. No mass effect or midline shift.The rand-white differentiation is maintained. No acute intracranial hemorrhage or pathologic extra-axial fluid collection. Mild atherosclerotic calcifications in the carotid siphons. The globes are symmetric. The calvarium is intact. The visualized paranasal sinuses and mastoid aircells are clear. ORDERED: - REFERRAL TO CARDIOLOGY Return if symptoms worsen or fail to improve. History of Present Illness: Merry Rooney is a 23 year old female who presents for referral and sleep concerns. History of anxiety, asthma, bipolar, HTN, panic disorder, JUDY, depression, PTSD, among others. ROS See HPI and A/P. There were no vitals filed for this visit. Estimated body mass index is 30.38 kg/m?? as calculated from the following: Height as of 06/08/23: 1.708 m (5' 7.24). Weight as of 06/08/23: 88.6 kg (195 lb 6.4 oz). Physical Exam GENERAL: Nontoxic appearing. Speech is clear. Telemedicine: Buzzienthart Video Visit: This telemedicine visit is conducted by audio and video technology between thepatient and provider. Informed consent was provided during e-check in and signed by patient. Patient was offered opportunity to ask any questions. Patient's Physical Location: Home Provider's Physical Location: Offsite Participants in this Telemedicine Visit other than the patient/provided included: N/A This visit started at: 1640 PM and concluded at: 1700 PM. SOFTWARE DEVELOPMENT ENGINEER documented in this encounter Plan of Treatment Upcoming Encounters Date Type Department Care Team Description 11/24/2023 1:30 PM LEAD SOFTWARE DEVELOPMENT ENGINEER Office Visit [facility] Cardiology Clinic [address] [address] Shahbaz Urias MD [address] [place] [address] [address] [place] [address] Scheduled Discharge Disposition: Discharged to home or self care (routine discharge) 01/03/2024 3:00 PM CDT Telemedicine [facility] [place] [facility] 701 [facility] [address] [place], [place] [address] Trip Nieto MD [address] [place] [phone] Scheduled Discharge Disposition: Discharged to home or self care (routine discharge) Scheduled Referrals Name Type Priority Associated Diagnoses Orde r Schedule REFERRAL TO CARDIOLOGY Referral Routine Palpitations PVC (premature ventricular contraction) Carotid artery calcification, unspecified laterality Ordered: 11/10/2023 REFERRAL TO SLEEP CENTER Referral Routine Difficulty sleeping Ordered: 11/10/2023 documented as of this encounter Goals Goal [...] emotional safety, developmental growth and self-agency No Workman, Lashon, LPCC documented as of this encounter Visit Diagnoses Diagnosis Difficulty sleeping- Primary Sleep disturbance, unspecified Palpitations PVC (premature ventricular contraction) Other premature beats Carotid artery calcification, unspecified laterality documented in this encounter Additional Health Concerns [...] Total Score: 7 08/22/20 23 11:05 AM LEAD SOFTWARE DEVELOPMENT ENGINEER PHQ-2 Depression Total Score: 2 08/22/20 23 11:05 AM LEAD SOFTWARE DEVELOPMENT ENGINEER documented as of this encounter
--- OUTSIDE RECORDS SUMMARY | 2023-11-10 15:06 | XMS_ITS | Encounter Summary ---
Author Name Unknown Organization [facility] Address [address] [place] [address] Phone Care Team Providers Care Buffer Copper Name Role Phone Unavailable Primary Care Provider Unavailabl e Encounter Details Date Type Department Care Team Description 09/09/2023 10:00 AM HUMAN INTELLIGENCE Telemedicine Psych Rehab [facility] [address] [place] [address] [phone] Claire Workman LPCC [address] [place], [place] [address]53135 Discharge Disposition: Discharged to home or self [...] LPCC - 09/09/2023 10:00 AM CST Dept: [facility] Type of Service: Group Therapy Provider/Group Gas Engine Performance Engineer: Claire Workman LPCC Date of Service: 09/09/2023 [...] Total time spent on this visit, including wkmpyvnc-gu-cpaujrz interaction, review of medical record, and documentation: 100 minutes. Patient consents to this service: Yes Group Description: Tuesday Connections group consists of a psychotherapy group with content from [employer] Parenting. Session Content of Today's Group: Topics [...] () Claire Workman LPCC, 09/09/2023 11:54 AM N INTELLIGENCE documented in this encounter Plan of Treatment Upcoming Encounters Date Type Department Care Team Description 11/24/2023 1:30 PM HUMAN INTELLIGENCE Office Visit [facility] Cardiology Clinic [address] [address] Shahbaz Urias MD [address] [place] [address] O5 [place], [place] [address] Scheduled Discharge Disposition: Discharged to home or self care (routine discharge) 01/03/2024 3:00 PM CDT Telemedicine [facility] Sleep Center 701 [facility] [address] [place], [place] [phone] Trip Nieto MD 701 [place] [address] Scheduled Discharge Disposition: Discharged to home or [...] act on her child(deann)? s needs No Claier Workman LPCC Developmental Growth - MB OTP - Increase overall functioning and stability by working towards emotional safety, developmental growth and self-agency Care Plan NEIL OTP - Increase overall functioning and stability by working towards emotional safety, developmental growth and self-agency Claire Vazquez, [facility] documented as of this encounter Visit [...] Total Score: 7 08/22/20 23 11:05 AM HUMAN INTELLIGENCE PHQ-2 Depression Total Score: 2 08/22/20 23 11:05 AM HUMAN INTELLIGENCE documented as of this encounter
--- OUTSIDE RECORDS SUMMARY | 2023-11-10 15:06 | XMS_ITS | Encounter Summary ---
Author Name Unknown Organization [facility] Address [address] [place] [address] Phone Care Team Providers Care Seo Consultant Name Role Phone Unavailable Primary Care Provider Unavailabl e Encounter Details Date Type Department Care Team Description 10/14/2023 10:00 AM DATA ENTRY CLERK [facility]medicine [facility] 701 [place], [place] [phone] Claire Workman, [facility] 701 [place], [place] [address] Karoline Benson MD 701 [facility] S[address] [place], [place] [phone] Discharge Disposition: Discharged to home or self [...] Department Care Team Description 11/24/2023 1:30 PM DATA ENTRY CLERK Office Visit [facility] Cardiology Clinic [address] [phone] Shahbaz Urias MD 701 [facility] [address] [place] [address] Scheduled Discharge Disposition: Discharged to home or self care (routine discharge) 01/03/2024 3:00 PM CDT Telemedicine [facility] Sleep Center [address] [place], [place] [address] Trip Nieto MD 701 [place], [place] [address] Scheduled Discharge Disposition: Discharged to home or [...] to make safe choices No Claire Workman [facility] Reflective Functioning - MB OTP - To increase capacity to recognize and act on her child(deann)? s needs Care Plan MB OTP - To increase capacity to recognize and act on her child(deann)? s needs No Claire Workman [facility] Developmental Growth - MB OTP - [...] Total Score: 7 08/22/20 23 11:05 AM DATA ENTRY CLERK PHQ-2 Depression Total Score: 2 08/22/20 23 11:05 AM DATA ENTRY CLERK documented as of this encounter
--- OUTSIDE RECORDS SUMMARY | 2023-11-10 15:06 | XMS_ITS | Encounter Summary ---
Author Name Unknown Organization [facility] Address [address] [place] [address] Phone Care Team Providers Care Radio Engineer Name Role Phone Unavailable Primary Care Provider Unavailabl e Encounter Details Date Type Department Care Team Description 09/30/2023 10:00 AM VICE PRESIDENT OF INSTRUCTION Telemedicine Psych Rehab [facility] 701 [place] [address] Claire Workman, [facility] 701 [place], [place] [address] Karoline Benson MD 701 [facility] [address], [place] [address] Discharge Disposition: Discharged to home or self [...] LPCC - 09/30/2023 10:00 AM CST Dept: [facility] Type of Service: Group Therapy Provider/Group Ship'S Carpenter: Claire Workman [facility] Date of Service: 09/30/2023 Start Time: 10:00 [...] Location: Home Provider's Physical Location: Onsite at [facility] Participants in this Telemedicine Visit other than the patient/provider and other group attendees included: N/A This visit started at: 10 AM and concluded at: 11:30 AM. Total time spent on this visit, including ijzsgvmo-xq-vmzhhec interaction, review of medical record, and documentation: 100 minutes. Patient consents to this service: Yes Group Description: Tuesday Connections group consists of a psychotherapy group with content from [employer]. Session Content of Today Group: Topics [...] acts Claire Workman LPCC, 09/30/2023 1:35 PM PRESIDENT OF INSTRUCTION documented in this encounter Plan of Treatment Upcoming Encounters Date Type Department Care Team Description 11/24/2023 1:30 PM VICE PRESIDENT OF INSTRUCTION Office Visit [facility] Cardiology Clinic [address] [address] Shahbaz Urias MD [address] [place] [address] [address] [place] [address] Scheduled Discharge Disposition: Discharged to home or self care (routine discharge) 01/03/2024 3:00 PM CDT Telemedicine [facility] 701 [facility] G8.220 [place], [place] [address] Trip Nieto MD [address] [place] [address] Scheduled Discharge Disposition: Discharged to home or [...] her child(deann)? s needs No Claire Workman, [facility] Developmental Growth - MB OTP - Increase overall functioning and stability by working towards emotional safety, developmental growth and self-agency Care Plan MB OTP - Increase overall functioning and stability by working towards emotional safety, developmental growth and self-agency No Claire Workman, [facility] documented as of this encounter Visit Diagnoses Diagnosis PTSD (post-traumatic stress disorder)- Primary Posttraumatic stress disorder Mixed obsessional thoughts and acts documented in this encounter Additional Health Concerns Problem Noted Date Diagnosed Date MB OTP - To increase functio ali by decreasing mental health symptoms that impact the ability to make safe choices 07/22/2023 MB OTP - To increase capacit y to recognize and act on her child(deann)? s needs 07/22/2023 MB OTP - Increase overall fu nctioning and stability by working towards emotional safety, developmental growth and self-agency 07/22/2023 Assessment Noted Time PHQ-9 Depression Total Score: 7 08/22/20 23 11:05 AM VICE PRESIDENT OF INSTRUCTION PHQ-2 Depression Total Score: 2 08/22/20 23 11:05 AM VICE PRESIDENT OF INSTRUCTION documented as of this encounter
--- OUTSIDE RECORDS SUMMARY | 2023-11-10 15:06 | XMS_ITS ---
Care Plan Created on: November 10, 2023 Merry Rooney : 2000 Sex: Female Author Name Unknown Organization [facility] Address [address] [place] [address] Phone Care Team Providers Care Knowledge Analyst Name Role Phone Unavailable Primary Care [...] screening 02/05/2005 06/08/20 23 Overview: LW Onset: [id number] ; Child and Teen Check Up Needs [...] to make safe choices No Claire Workman, [facility] Reflective Functioning - MB OTP - To increase capacity to recognize and act on her child(deann)? s needs Care Plan MB OTP - To increase capacity to recognize and act on her child(deann)? s needs No Claire Workman, [facility] Developmental Growth - MB OTP - Increase overall functioning and stability by working towards emotional safety, developmental growth and self-agency Care Plan MB OTP - Increase overall functioning and stability by working towards emotional safety, developmental growth and self-agency No Claire Workman, [facility] Interventions Intervention Entry Date Outcome (Patient) Build [...]
--- OUTSIDE RECORDS SUMMARY | 2023-11-10 15:06 | XMS_ITS | Encounter Summary ---
Author Name Unknown Organization [facility] Address [address] [place] [address] Phone Care Team Providers Care Quality Assurance Representative Name Role Phone Unavailable Primary Care Provider Unavailabl e Encounter Details Date Type Department Care Team Description 09/23/2023 10:00 AM COMMERCIAL AIRLINE PILOT Telemedicine Psych Rehab [address] [phone] Claire Workman, [address] [phone] Mando Estes DO HENN [address] [phone] Discharge Disposition: Discharged to home or self [...] Notes * Group Note - Claire Workman [facility] - 09/23/2023 10:00 AM CST Dept: [facility] Type of Service: Group Therapy Provider/Group Test Engine Operator: Claire Workman [facility] Date of Service: 09/23/2023 Start Time: 10:00 [...] Home Provider's Physical Location: Onsite at [facility] Participants in this Telemedicine Visit other than the patient/provider and other group attendees included: N/A This visit started at: 10 AM and concluded at: 11:30 AM. Total time spent on this visit, including omhisjgk-fl-tqovwmi interaction, review of medical record, and documentation: 100 minutes. Patient consents to this service: Yes Group Description: Tuesday Connections group consists of a psychotherapy group with content from [email or web address]. Session Content of Today's Group: Topics [...] acts Claire Workman LPCC, 09/23/2023 1:01 PM ERCIAL AIRLINE PILOT documented in this encounter Plan of Treatment Upcoming Encounters Date Type Department Care Team Description 11/24/2023 1:30 PM COMMERCIAL AIRLINE PILOT Office Visit [facility] Cardiology Clinic [address] [address] Shahbaz Urias MD [address] [place] [address] O5 [place], [place] [address]125 Scheduled Discharge Disposition: Discharged to home or self care (routine discharge) 01/03/2024 3:00 PM CDT Telemedicine [facility] Sleep Center [address] [place] [address] G8.220 [place] [address] Trip Nieto MD [address] [place] [address] Scheduled Discharge Disposition: Discharged to home or [...] Total Score: 7 08/22/20 23 11:05 AM COMMERCIAL AIRLINE PILOT PHQ-2 Depression Total Score: 2 08/22/20 23 11:05 AM COMMERCIAL AIRLINE PILOT documented as of this encounter
--- OUTSIDE RECORDS SUMMARY | 2023-11-10 15:07 | XMS_ITS | Encounter Summary ---
Author Name Unknown Organization [facility] Address [address] [place] [address] Phone Care Team Providers Care Peanut Salter Name Role Phone Unavailable Primary Care Provider Unavailabl e Reason for Visit * Prior Authorization (Routine) - Closed Specialty Diagnoses / Procedures Referred By Contac t Referred To Contact Psych Rehab Diagnoses Bipolar II disorder () Trauma and stressor-related disorder Procedures MOTHER BABY ENROLLMENT Jazmine Potter, [facility] 701 [place] [address] [address] Referral ID Status Reason Start Date Expiration Date Visits Re quested Visits Authorized [id number] Closed 05/09/2023 06/24/2023 105 105 Encounter Details Date Type Department Care Team Description 06/23/2023 11:00 AM CDT [facility] [address] [place] [phone] Karoline Benson MD 701 [facility] S1 [address]60 [place], [place] [phone] Dh, Mother Baby Discharge Disposition: Discharged to [...] RN - 06/23/2023 11:00 AM CDT Dept: [facility] Family [facility] Type of Service: Group Therapy Provider/Group Control Systems Designer: Kiana Borges RN Date of Service: 06/23/2023 Start Time: 11:15 AM Stop Time: 12:00 PM Number of Group Members Present: 4 Name of Group: Movement Location of Service: Face to Face at [facility] WATER SUPERVISOR SERVICES PROVIDED (if applicable): No Session Content (Intervention) (including goal/intended outcome): Encouraged group members to participate in mind-body skills facilitated by [facility] Trauma- Informed Yoga providers. Trauma-sensitive mind-body skills [...] Department Care Team Description 11/24/2023 1:30 PM DIRECTOR HEMATOLOGY Office Visit [facility] Cardiology Clinic [address] [place] [address] Shahbaz Urias MD 701 [facility] O5 [place], [place] [address] Scheduled Discharge Disposition: Discharged to home or self care (routine discharge) 01/03/2024 3:00 PM CDT Telemedicine [facility] Sleep Center 701 [facility] G8.220 [place], [place] [address] Trip Nieto MD 701 [place] [address] Scheduled Discharge Disposition: Discharged to home or [...]
--- OUTSIDE RECORDS SUMMARY | 2023-11-10 15:07 | XMS_ITS | Encounter Summary ---
Author Name Unknown Organization [facility] Address [address] [place] [address] Phone Care Team Providers Care Custodial Officer Name Role Phone Unavailable Primary Care Provider Unavailabl e Reason for Visit * Prior Authorization (Routine) - Closed Specialty Diagnoses / Procedures Referred By Contac t Referred To Contact Psych Rehab Diagnoses Bipolar II disorder () Trauma and stressor-related disorder Procedures MOTHER BABY ENROLLMENT Jazmine Potter, [facility] [address] [place] [address] [address] [address] Referral ID Status Reason Start Date Expiration Date Visits Re quested Visits Authorized [id number] Closed 05/09/2023 06/24/2023 105 105 Encounter Details Date Type Department Care Team Description 06/23/2023 1:45 PM CDT [facility] [address] [place] [phone] Karoline Benson MD 701 [facility] [address]60 [place], [place] [phone] Dh, Mother Baby Discharge Disposition: Discharged to [...] LPCC - 06/23/2023 1:45 PM CDT Dept: [facility] Type of Service: Group Therapy Name of Group: Psychoeducation/Skills Group Provider/Group Parquetry Floor Layer: Claire Workman LPCC Date of Service: 06/23/2023 Start Time: 1:45 PM Stop Time: 2:30 PM Number of Group Members Present: 5 Location of Service: Face to Face at [facility] Session Content (Intervention): The purpose of [...] Department Care Team Description 11/24/2023 1:30 PM CIRCULATION SUPERVISOR Office Visit [facility] Cardiology Clinic [address] [address] Shahbaz Urias MD [address] [place] [address] Scheduled Discharge Disposition: Discharged to home or self care (routine discharge) 01/03/2024 3:00 PM CDT Telemedicine [facility] Sleep Center [address] [place] [address] Trip Nieto MD [address] [place] [address] Scheduled Discharge Disposition: Discharged to home or [...]
--- OUTSIDE RECORDS SUMMARY | 2023-11-10 15:07 | XMS_ITS | Encounter Summary ---
Author Name Unknown Organization [facility] Address [address] [place] [address] Phone Care Team Providers Care District Superintendent Name Role Phone Unavailable Primary Care Provider Unavailabl e Reason for Visit * Reason Comments Psych Rehab Health Screen Encounter Details Date Type Department Care Team Description 08/12/2023 Documentation Only [facility] [address] [place] [address] Kiana Borges, RN [facility] 701 [place] [address] Psych Rehab Health Screen Social History Tobacco [...] plan, below. Primary Care Provider: Emigdio Ambriz [facility] and hospital Date of last PCP visit: [...] Department Care Team Description 11/24/2023 1:30 PM WOOD MACHINIST Office [facility] [address] [address] Shahbaz Urias MD 701 [facility] O5 [place] [address] Scheduled Discharge Disposition: Discharged to home or self care (routine discharge) 01/03/2024 3:00 PM CDT Telemedicine [facility] [place] [place] Sleep Center [address] [place] [address] G8.220 [place] [address] Trip Nieto MD 701 [place] [address] Scheduled Discharge Disposition: Discharged to home or [...]
--- OUTSIDE RECORDS SUMMARY | 2023-11-10 15:07 | XMS_ITS | Encounter Summary ---
Author Name Unknown Organization [facility] Address 1 [place] [address] Phone Care Team Providers Care Warm In Name Role Phone Unavailable Primary Care Provider Unavailabl e Encounter Details Date Type Department Care Team Description 08/26/2023 10:00 AM FORENSIC MANAGER Telemedicine Psych Rehab [facility] [address] [place] [address] [phone] Claire Workman LPCC 701 [place], [place] 447405 Discharge Disposition: Discharged to home or self [...] LPCC - 08/26/2023 10:00 AM CST Dept: [facility] Type of Service: Group Therapy Provider/Group Invasive Cardiologist: Claire Workman LPCC Date of Service: 08/26/2023 [...] Location: Home Provider's Physical Location: Onsite at [facility] Participants in this Telemedicine Visit other than the patient/provider and other group attendees included: N/A This visit started at: 10 AM and concluded at: 11:30 AM. Total time spent on this visit, including xmxcbxig-hh-enhgosy interaction, review of medical record, and documentation: 100 minutes. Patient consents to this service: Yes Group Description: Tuesday Connections group consists of a psychotherapy group with content from [place] of [employer]. Session Content of Today's Group: Topics [...] Discharge Plan/Anticipated Discharge: 09/09, then transfer to [facility] Diagnoses: 1. PTSD (post-traumatic stress disorder) 2. Mixed obsessional thoughts and acts Claire Workman LPCC, 08/26/2023 1:21 PM NSIC MANAGER documented in this encounter Plan of Treatment Upcoming Encounters Date Type Department Care Team Description 11/24/2023 1:30 PM FORENSIC MANAGER [facility] [address] [address] Shahbaz Urias MD [address] [place] [address] O5 [place], [place] [phone] Scheduled Discharge Disposition: Discharged to home or self care (routine discharge) 01/03/2024 3:00 PM CDT Telemedicine [facility] Sleep Center 701 [facility] G8.220 [place], [place] 2[address]85 Trip Nieto MD 701 [place] [address] Scheduled Discharge Disposition: Discharged to home or [...] safety, developmental growth and self-agency Claire Vazquez, [facility] documented as of this encounter [...] Total Score: 7 08/22/20 23 11:05 AM FORENSIC MANAGER PHQ-2 Depression Total Score: 2 08/22/20 23 11:05 AM FORENSIC MANAGER documented as of this encounter
--- OUTSIDE RECORDS SUMMARY | 2023-11-10 15:07 | XMS_ITS | Encounter Summary ---
Author Name Unknown Organization [facility] Address 1 [place] [address] Phone Care Team Providers Care Sanforizing Machine Operator Name Role Phone Unavailable Primary Care Provider Unavailabl e Encounter Details Date Type Department Care Team Description 07/22/2023 10:00 AM CDT Telemedicine Psych Rehab [facility] [address] [place] [address] [phone] Claire Workman LPCC 701 [place], [place] 28[address] Discharge Disposition: Discharged to home or self [...] LPCC - 07/22/2023 10:00 AM CDT Dept: [facility] Type of Service: Group Therapy Provider/Group Chief Pilot: Claire Workman LPCC Date of Service: 07/22/2023 [...] of a psychotherapy group with content from [place] of [employer]. Session Content of Today's [...] Department Care Team Description 11/24/2023 1:30 PM SPLICING MACHINE OPERATOR AUTOMATIC Office [facility] [address] [address] Shahbaz Urias MD 701 [facility]5 [place], [place] 637[address] Scheduled Discharge Disposition: Discharged to home or self care (routine discharge) 01/03/2024 3:00 PM CDT Telemedicine [facility] G[facility].[address] [place], [place] [address] Trip Nieto MD 701 [place], [place] [phone] Scheduled Discharge Disposition: Discharged to home or [...]
--- OUTSIDE RECORDS SUMMARY | 2023-11-10 15:07 | XMS_ITS | Encounter Summary ---
Author Name Unknown Organization [facility] Address [address] [place] [address] Phone Care Team Providers Care Statistical Modeler Name Role Phone Unavailable Primary Care Provider Unavailabl e Reason for Visit * Prior Authorization (Routine) - Closed Specialty Diagnoses / Procedures Referred By Contac t Referred To Contact Psych Rehab Diagnoses Bipolar II disorder () Trauma and stressor-related disorder Procedures MOTHER BABY ENROLLMENT Jazmine Potter, [facility] [address] [place] [address] [address] Referral ID Status Reason Start Date Expiration Date Visits Re quested Visits Authorized [id number] Closed 05/09/2023 06/24/2023 105 105 Encounter Details Date Type Department Care Team Description 06/23/2023 9:30 AM CDT [facility] [address] [place] [address] [phone] Karoline Benson MD 701 [facility] S1 [address]60 [place], [place] 5[address] Dh, Mother Baby Discharge Disposition: Discharged to [...] LPCC - 06/23/2023 9:30 AM CDT Dept: [facility] Type of Service: Group Therapy Name of Group: Psychoeducation/Skills Group Provider/Group Work Measurement Engineer: Claire Workman LPCC Date of Service: 06/23/2023 Start Time: 9:30 AM Stop Time: 10:15 AM Number of Group Members Present: 4 Location of Service: Face to Face at [facility] Session Content (Intervention): Welcomed any new patients [...] Department Care Team Description 11/24/2023 1:30 PM BRANCH MANAGER Office [facility] [address] [place] [address] Shahbaz Urias MD [address] [place] [address] Scheduled Discharge Disposition: Discharged to home or self care (routine discharge) 01/03/2024 3:00 PM CDT Telemedicine [facility] [place] [facility] [address] [place] [address] Trip Nieto MD 701 [place] [address] Scheduled Discharge Disposition: Discharged to home or [...]
--- OUTSIDE RECORDS SUMMARY | 2023-11-10 15:07 | XMS_ITS | Encounter Summary ---
Author Name Unknown Organization [facility] Address 1 [place] [address] Phone Care Team Providers Care Hub Associate Name Role Phone Unavailable Primary Care Provider Unavailabl e Encounter Details Date Type Department Care Team Description 08/12/2023 10:00 AM CDT Telemedicine Psych Rehab [facility] [address] [place] [address] [phone] Claire Workman LPCC 701 [place], [place] 7[address] Discharge Disposition: Discharged to home or self [...] LPCC - 08/12/2023 10:00 AM CDT Dept: [facility] Type of Service: Group Therapy Provider/Group Prepared Foods Service Team Member: Claire Workman LPCC Date of Service: 08/12/2023 [...] Location: Home Provider's Physical Location: [facility] Participants in this Telemedicine Visit other than the patient/provider and other group attendees included: N/A This visit started at: 10 AM and concluded at: 11:30 AM. Total time spent on this visit, including cxvmmveo-oq-hxsncbu interaction, review of medical record, and documentation: 100 minutes. Patient consents to this service: Yes Group Description: Tuesday Connections group consists of a psychotherapy group with content from [place] of [employer]. Session Content of Today's Group: Topics [...] Department Care Team Description 11/24/2023 1:30 PM VIRTUALIZATION CONSULTANT [facility] [address] [address] Shahbaz Urias MD [address] [place] [address] O5 [place] [address] Scheduled Discharge Disposition: Discharged to home or self care (routine discharge) 01/03/2024 3:00 PM CDT Telemedicine [facility] 701 [facility] G8.[address] [place], [place] 7[address] Trip Nieto MD [address] [place] [address] Scheduled Discharge Disposition: Discharged to home or [...] her child(deann)? s needs No Claire Workman, [facility] Developmental Growth - MB OTP - Increase overall functioning and stability by working towards emotional safety, developmental growth and self-agency Care Plan MB OTP - Increase overall functioning and stability by working towards emotional safety, developmental growth and self-agency No Claire Workman, [facility] documented as of this encounter Visit Diagnoses [...]
--- OUTSIDE RECORDS SUMMARY | 2023-11-10 15:07 | XMS_ITS | Encounter Summary ---
Author Name Unknown Organization [facility] Address [address] [place] [address] Phone Care Team Providers Care Insurance Claims Supervisor Name Role Phone Unavailable Primary Care Provider Unavailabl e Reason for Visit * Prior Authorization (Routine) - Closed Specialty Diagnoses / Procedures Referred By Contac t Referred To Contact Psych Rehab Diagnoses Bipolar II disorder () Trauma and stressor-related disorder Procedures MOTHER BABY ENROLLMENT Jazmine Potter, [facility] 701 [place] [address] [address] Referral ID Status Reason Start Date Expiration Date Visits Re quested Visits Authorized [id number] Closed 05/09/2023 06/24/2023 105 105 Encounter Details Date Type Department Care Team Description 06/22/2023 3:00 PM CDT [facility] 701 [place], [place] [phone] Noy Chen, [facility] 701 [place], [place] 9[address] Karoline Benson MD 701 [facility] S1 [address]60 [place], [place] [phone] Discharge Disposition: Discharged to home or self [...] this encounter Progress Notes * Noy Chen, [facility] - 06/22/2023 3:00 PM CDT [facility] Progress Note Date of Service: 06/22/2023 Start Time: 3pm Stop Time: 4pm Location of Visit: Face to Face at [facility] Participants in this Visit other than the patient/provider included: Patient's partner. Pt was not present during today's visit. ORNAMENTAL BRICK INSTALLER SERVICES PROVIDED (if applicable): No Type of [...] to reach out if needed. Email sent: [email or web address] Patient Response to Intervention (including any plans [...] Plan: 1. Psychotherapy: Pt to continue in [facility] programming; partner to engage in brief, individual support through MB team to ensure he and partner are best supported at this time 2. Psychiatric care: Dr. Benson/Dr. Mejia 3. Utilize emergency resources ([facility], [facility]) Noy Chen LICSW, 06/24/2023 10:00 AM documented in this encounter Plan of Treatment Upcoming Encounters Date Type Department Care Team Description 11/24/2023 1:30 PM STRAINER CLEANER Office [facility] Clinic [address] [address] Shahbaz Urias MD [address] [place] [address] Scheduled Discharge Disposition: Discharged to home or self care (routine discharge) 01/03/2024 3:00 PM CDT Telemedicine [facility] Sleep Center [address] [place] [address] Trip Nieto MD [address] [place] [address] Scheduled Discharge Disposition: Discharged to home or [...]
--- OUTSIDE RECORDS SUMMARY | 2023-11-10 15:07 | XMS_ITS | Encounter Summary ---
Author Name Unknown Organization [facility] Address [address] [place] [address] Phone Care Team Providers Care Machine Finisher Name Role Phone Unavailable Primary Care Provider Unavailabl e Reason for Visit * Reason Onset Date Comments Mother Baby - Mental Health Outreach 09/07/2023 Encounter Details Date Type Department Care Team Description 09/07/2023 Telephone [facility] 701 [place] [address] Regina Romero [facility] 701 [place] [address] Mother Baby - Mental Health Outreach Social [...] Lor Romero Mental Health Worker Mother-Baby Program GAN CLERK documented in this encounter Plan of Treatment Upcoming Encounters Date Type Department Care Team Description 11/24/2023 1:30 PM WANIGAN CLERK [facility] [address] [address] Shahbaz Urias MD [address] [place] [address] Scheduled Discharge Disposition: Discharged to home or self care (routine discharge) 01/03/2024 3:00 PM CDT Telemedicine [facility] Sleep Center [address] [place], [place] 2[address] Trip Nieto MD [address] [place], [place] [phone] Scheduled Discharge Disposition: Discharged to home or [...] to make safe choices No [facility] Reflective Functioning - MB OTP - To increase capacity to recognize and act on her child(deann)? s needs Care Plan MB OTP - To increase capacity to recognize and act on her child(deann)? s needs No [facility] Developmental Growth - MB OTP - Increase overall functioning and stability by working towards emotional safety, developmental growth and self-agency Care Plan MB OTP - Increase overall functioning and stability by working towards emotional safety, developmental growth and self-agency No Claire Workman [facility] documented as of this encounter Visit Diagnoses [...] Total Score: 7 08/22/20 23 11:05 AM WANIGAN CLERK PHQ-2 Depression Total Score: 2 08/22/20 11:05 AM WANIGAN CLERK documented as of this encounter
--- OUTSIDE RECORDS SUMMARY | 2023-11-10 15:07 | XMS_ITS | Encounter Summary ---
Author Name Unknown Organization [facility] Address [address] [place] [address] Phone Care Team Providers Care Technology Applications Engineer Name Role Phone Unavailable Primary Care Provider Unavailabl e Reason for Visit * Reason Onset Date Comments Psych Medication Management 06/22/2023 Encounter Details Date Type Department Care Team Description 06/22/2023 11:00 AM CDT Psych Rehab [facility] [address] [place] [address] [phone] Karissa Sams MD [address] [place] [address] [phone] Psych Medication Management Discharge Disposition: Discharged to [...] [facility], Psychiatry Visit Started the [facility] on: 05/09/23 (ad[facility] to [facility] 06/08-06/15/23) Merry Rooney is a 23 y.o. mother of baby (Aidan born 05/03/23) and 2 year old son (Chuy). [facility] by [facility]. Also admitted while she was in the program to [place], [place]) 05/24-05/30/23. Cultural Context: white, Romanian and [place]olan Pronouns: she/her/hers; Supports: [place] -- supportive Therapist: ; PCP: ; OB-FIRE TENDER: Antonio Ob; Procedure Manager: Feeding Method: mainly formula because milk [...] the program to [facility] ([place], [place]) 05/24- 05/30/23. Multiple, recent ED visits for physical sx of anxiety as well as SI - mainly to [place] ED (see 06/02/[address] Esposito for recent summary of ED courses). Admitted to [facility] [place] 06/08-06/15/23) Diagnostic Impression(s) Bipolar II Disorder, current episode depressed, severe with previous psychotic symptoms PTSD and (Complex Developmental Trauma) Unspecified anxiety (intrusive thoughts) - R/O OCD Opioid and alcohol use disorders, by history Multiple closed head injuries and hx of seizure preeclampsia Assessment Berkey, caring, resilient 23 y.o. mother of 2 following a harrowing course with psychotic symptoms and possible preeclampsia leading to transfer to [place] ICU. Longitudinal course consistent with Complex Developmental Trauma and bipolar spectrum leading to a psychiatric admission ( 05/24- to [facility]) and recent admission to 06/08-06/15/23 [facility]. Improved depression and no current suicidal ideation. [...] DBT, medication management appt next week at [facility]. Intervening History Last seen 06/20 by [...] PM) Psychiatric History Hospitalizations: multiple-most recent at [facility] 06/08-06/15/23, admitted at 16 for first time [...] when she was 4. Mother lived in [place]. 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 Legal: no had involvement with the legal system. The patient reports the following spiritual and/or cultural history: Romanian and [place] background Relationship to her partner/father/co-parent of the [...] LICSW - 06/22/2023 11:00 AM CDT Dept: [facility] Type of Service: Group Therapy Provider/Group Cereal Miller: Jazmine Potter LICSW Date of Service: 06/22/2023 Start Time: 11:15 AM Stop Time: 12:00 PM Number of Group Members Present: 4 Name of Group: Movement Location of Service: Face to Face at [facility] MARINE ENGINEER CPV[employer] SERVICES PROVIDED (if applicable): No Session Content (Intervention) (including goal/intended outcome): Encouraged group members to participate in mind-body skills facilitated by [facility] Trauma-Informed Yoga providers. Trauma-sensitive mind-body skills and [...] Department Care Team Description 11/24/2023 1:30 PM TAP AND DIE MAKER TECHNICIAN Office [facility]iology Clinic [address] [address] Shahbaz Urias MD [facility] [address] [place] [address] Scheduled Discharge Disposition: Discharged to home or self care (routine discharge) 01/03/2024 3:00 PM CDT Telemedicine [facility] Center [facility] [address] G[address] [place], [place] 6[address] Trip Nieto MD [address] [place], [place] [address] Scheduled Discharge Disposition: Discharged to home or [...]
--- OUTSIDE RECORDS SUMMARY | 2023-11-10 15:07 | XMS_ITS | Encounter Summary ---
Author Name Unknown Organization [facility] Address 1 [place] [address] Phone Care Team Providers Care Holistic Health Practitioner Name Role Phone Unavailable Primary Care Provider Unavailabl e Reason for Visit * Reason Comments Mother Baby - Standard Diagnostic Assess ment Encounter Details Date Type Department Care Team Description 08/19/2023 1:00 PM MEXICAN FOOD MACHINE TENDER Telemedicine Psych Rehab [facility] 701 [place], [place] [phone] Claire Workman, [facility] [address] [place] [address] [phone] Mother Baby - Standard Diagnostic Assessment Discharge [...] this encounter Progress Notes * Claire Workman [facility] - 08/19/2023 1:00 PM CST [facility] [place] Name: Merry Rooney : 2000 STANDARD DIAGNOSTIC ASSESSMENT Date of Service: 08/19/2023 Start Time: 1:07 pm Stop Time: 1:48 pm Location: Telemedicine: [employer] Video Visit: This telemedicine visit is conducted by audio and video technology between thepatient and provider. Informed consent was provided during e-check in and signed by patient. Patient was offered opportunity to ask any questions. Patient's Physical Location: Home Provider's [facility] PRESENTING CONCERN: Referral Source: referred by inpatient team at [place] after traumatic of second child Reason for [...] who was referred by inpatient team at [place] for evaluation of PTSD and effects of [...] She reports a history of self-injury from [id number]. She reports violent behaviors have happened several [...] Resources Current psychiatry provider is Juanita at [facility]. Current therapist is Raegan at [facility]. Current treatment resources include group [...] and chemical health):?No Support for Sobriety Includes: Dale Support Group such as AA/SMART in the [...] Orientation: bisexual Race/Ethnicity: white History: No Belief System:?Sikh, non-buddhist Impact of Cultural Influences on Treatment: None [...] include Food stamps Medical insurance Employment [employer]. Significant Personal Relationships: Patient is . Patient [...] any services required by law. Claire Workman [facility], 08/19/2023 1:08 PM CAN FOOD MACHINE TENDER documented in this encounter Plan of Treatment Upcoming Encounters Date Type Department Care Team Description 11/24/2023 1:30 PM MEXICAN FOOD MACHINE TENDER Office Visit [facility] Cardiology Clinic [address] [address] Shahbaz Urias MD [address] [place], [place] [address]Cat O5 [place], [place] [address] Scheduled Discharge Disposition: Discharged to home or self care (routine discharge) 01/03/2024 3:00 PM CDT Telemedicine [facility] Sleep Center 701 [facility] G8.220 [place], [place] [address] Trip Nieto MD [address] [place] [phone] Scheduled Discharge Disposition: Discharged to home or [...] Total Score: 7 08/22/20 23 11:05 AM MEXICAN FOOD MACHINE TENDER PHQ-2 Depression Total Score: 2 08/22/20 23 11:05 AM MEXICAN FOOD MACHINE TENDER documented as of this encounter
--- OUTSIDE RECORDS SUMMARY | 2023-11-10 15:07 | XMS_ITS | Encounter Summary ---
Author Name Unknown Organization [facility] Address 1 [place] [address] Phone Care Team Providers Care Cultural Historian Name Role Phone Unavailable Primary Care Provider Unavailabl e Encounter Details Date Type Department Care Team Description 08/19/2023 10:00 AM BEHAVIORAL SCHOOL COUNSELORS Telemedicine Psych Rehab [facility] [address] [place] [address] [phone] Claire Workman LPCC 701 [place], [place] [phone] Discharge Disposition: Discharged to home or self [...] LPCC - 08/19/2023 10:00 AM CST Dept: [facility] Type of Service: Group Therapy Provider/Group Track Helper: Claire Workman LPCC Date of Service: [...] Location: Home Provider's Physical Location: Onsite at [facility]/Affiliate Participants in this Telemedicine Visit other than the patient/provider and other group attendees included: N/A This visit started at: 10 AM and concluded at: 11:30 AM. Total time spent on this visit, including [id number] interaction, review of medical record, and documentation: 100 minutes. Patient consents to this service: Yes Group Description: Tuesday Connections group consists of a psychotherapy group with content from [employer] [employer]. Session Content of Today's Group: Topics [...] disorder Claire Workman LPCC, 08/19/2023 2:14 PM VIORAL SCHOOL COUNSELORS documented in this encounter Plan of Treatment Upcoming Encounters Date Type Department Care Team Description 11/24/2023 1:30 PM BEHAVIORAL SCHOOL COUNSELORS [facility] [address] [address] Shahbaz Urias MD [address] [place] [address] O5 [place] [address] Scheduled Discharge Disposition: Discharged to home or self care (routine discharge) 01/03/2024 3:00 PM CDT Telemedicine [facility] 701 [facility] [address] [place] [address] Trip Nieto MD [address] [place] [address] Scheduled Discharge Disposition: Discharged to home or [...] act on her child(deann)? s needs No Workman, Lashon, LPCC Developmental Growth - MB OTP - [...]
--- OUTSIDE RECORDS SUMMARY | 2023-11-10 15:07 | XMS_ITS | Encounter Summary ---
Author Name Unknown Organization [facility] Address [address] [place] [address] Phone Care Team Providers Care [employer] Name Role Phone Unavailable Primary Care Provider Unavailabl e Reason for Visit * Prior Authorization (Routine) - Closed Specialty Diagnoses / Procedures Referred By Contac t Referred To Contact Psych Rehab Diagnoses Bipolar II disorder () Trauma and stressor-related disorder Procedures MOTHER BABY ENROLLMENT Jazmine Potter, [facility] [address] [place] [address] [place] [address] [address] Referral ID Status Reason Start Date Expiration Date Visits Re quested Visits Authorized [id number] Closed 05/09/2023 06/24/2023 105 105 Encounter Details Date Type Department Care Team Description 06/22/2023 1:45 PM CDT [facility] [address] [place] [address] [phone] Karoline Benson MD 701 [facility] S1 860 [place], [place] [phone] Dh, Mother Baby Discharge Disposition: Discharged to [...] LICSW - 06/22/2023 1:45 PM CDT Dept: [facility] Type of Service: Group Therapy Name of Group: Psychoeducation/Skills Group Provider/Group Final Inspector Truck Trailer: Jazmine Potter LICSW Date of Service: 06/22/2023 Start Time: 1:45 PM Stop Time: 2:30 PM Number of Group Members Present: 4 Location of Service: Face to Face at [facility] PRINCIPAL INVESTIGATOR SERVICES PROVIDED (if applicable): No Session Content [...] Department Care Team Description 11/24/2023 1:30 PM TEACHER DANCING [facility] [address] [place] [address] Shahbaz Urias MD [address] [place] [address] Scheduled Discharge Disposition: Discharged to home or self care (routine discharge) 01/03/2024 3:00 PM CDT Telemedicine [facility] Sleep [facility] [address] [place] [address] Trip Nieto MD [address] [place] [address] Scheduled Discharge Disposition: Discharged to home or [...]
--- OUTSIDE RECORDS SUMMARY | 2023-11-10 15:07 | XMS_ITS | Encounter Summary ---
Author Name Unknown Organization [facility] Address 701 [facility] [place] [address] Phone Care Team Providers Care Oiler Helper Name Role Phone Unavailable Primary Care Provider Unavailabl e Reason for Visit * Reason Onset Date Comments Mother Baby - Mental Health Outreach 07/11/2023 Encounter Details Date Type Department Care Team Description 07/11/2023 Telephone [facility] Family [facility] 701 [place], [place] [phone] Claire Workman LPCC 701 [place], [place] [phone] Mother Baby - Mental Health Outreach Social [...] Department Care Team Description 11/24/2023 1:30 PM DIGITAL MEDIA ASSOCIATE [facility] [address] [address] Shahbaz Urias MD [address] [facility] [place] [address] Scheduled Discharge Disposition: Discharged to home or self care (routine discharge) 01/03/2024 3:00 PM CDT Telemedicine [facility] 701 [facility] [address] [place] [address] Trip Nieto MD 701 [place] [address] Scheduled Discharge Disposition: Discharged to home or self care (routine discharge) documented as of this encounter Visit Diagnoses Not on filedocumented in this encounter Additional Health Concerns Assessment Noted Time PHQ-9 Depression Total Score: 19 023 4:26 PM CDT PHQ-2 Depression Total Score: 3 06/02/20 23 4:26 PM CDT documented as of this encounter
--- OUTSIDE RECORDS SUMMARY | 2023-11-10 15:07 | XMS_ITS | Encounter Summary ---
Author Name Unknown Organization [facility] Address 1 [facility] [place] [address] Phone Care Team Providers Care Computer Mechanic Name Role Phone Unavailable Primary Care Provider Unavailabl e Encounter Details Date Type Department Care Team Description 07/22/2023 Plan of Care Documentation [facility] [address] [phone] Social History Tobacco Use Types Packs/Day Years [...] Department Care Team Description 11/24/2023 1:30 PM ELECTRICIAN REFINERY [facility] [address] [address] Shahbaz Urias MD [address] [place] [address] O5 [place] [address] Scheduled Discharge Disposition: Discharged to home or self care (routine discharge) 01/03/2024 3:00 PM CDT Telemedicine [facility] 701 [facility] [address]8.[address] [place] [address] Trip Nieto MD 703 [facility] [place] [address] Scheduled Discharge Disposition: Discharged to home or [...]
--- OUTSIDE RECORDS SUMMARY | 2023-11-10 15:07 | XMS_ITS | Encounter Summary ---
Author Name Unknown Organization [facility] Address 1 [place] [address] Phone Care Team Providers Care Inside Channel Account Manager Name Role Phone Unavailable Primary Care Provider Unavailabl e Encounter Details Date Type Department Care Team Description 07/01/2023 10:00 AM CDT Telemedicine Psych Rehab [address] [phone] Claire Workman, [facility] 701 [place], [place] [address] Discharge Disposition: Discharged to home or self [...] Miscellaneous Notes * Group Note - [facility] - 07/01/2023 10:00 AM CDT Dept: [facility] Type of Service: Group Therapy Provider/Group Snack Foods Mixer Operator: Claire Workman [facility] Date of Service: 07/01/2023 Start Time: 10:00 AM Stop Time: 11:30 AM Number of Group Members Present: 4 Name of Group: Tuesday Connections Group Frequency: Weekly Location of Service: Hybrid Group (some participants face to face and some some on video): If this option is selected, telemed statement needs to be added for those who were on video. Telemedicine: Feedback Video Visit: This telemedicine visit is conducted by audio and video technology between thepatient and provider. Informed consent was provided during e-check in and signed by patient. Patient was offered opportunity to ask any questions. Patient's Physical Location: Home Provider's Physical Location: Onsite at [facility]/Affiliate Participants in this Telemedicine Visit other than the patient/provided included: Other group members This visit started at: 10 AM and concluded at: 11:30 AM. Group Description: Tuesday Connections group consists of a psychotherapy group with content from [place] [employer]. Session Content of Today's [...] 2. Trauma and stressor-related disorder Claire Workman [facility], 07/01/2023 11:49 AM documented in this encounter Plan of Treatment Upcoming Encounters Date Type Department Care Team Description 11/24/2023 1:30 PM MIXING TANK OPERATOR [facility] [address] [address] Shahbaz Urias MD [address] [place] [address] O5 [place] [address] Scheduled Discharge Disposition: Discharged to home or self care (routine discharge) 01/03/2024 3:00 PM CDT Telemedicine [facility] 701 [facility] [address].220 [place] [address] Trip Nieto MD [address] [place] [address] Scheduled Discharge Disposition: Discharged to home or [...]
--- OUTSIDE RECORDS SUMMARY | 2023-11-10 15:07 | XMS_ITS | Encounter Summary ---
Author Name Unknown Organization [facility] Address 1 [place] [address] Phone Care Team Providers Care Client Professional Name Role Phone Unavailable Primary Care Provider Unavailabl e Encounter Details Date Type Department Care Team Description 06/23/2023 12:30 PM CDT Psych Rehab [facility] [address] [place] [address] [phone] Ray Esposito MD [address] [phone] Discharge Disposition: Discharged to home or self [...] [facility] MB. Medication review. Recent chart notes reviewed on Epic - including most recent brief admission to [facility] in-patient psychiatry because of severe and unrelenting obsessional thoughts of harming her baby (06/08/23 - 06/15/23). Per therapy staff - (and confirmed by patient herself today) - Kristina is now living with her partner's family in [place] - until such time as she can summon the courage to return to the [facility] and her partner rent in [place] (which naturally had triggered a return of [...] Department Care Team Description 11/24/2023 1:30 PM MAGENTO DEVELOPER [facility] [address] [address] Shahbaz Urias MD 701 [facility] O5 [place], [place] 8[address] Scheduled Discharge Disposition: Discharged to home or self care (routine discharge) 01/03/2024 3:00 PM CDT Telemedicine [facility] Sleep Center 701 [facility] [address]8.[address] [place], [place] [address] Trip Nieto MD 701 [place], [place] [address] Scheduled Discharge Disposition: Discharged to home or self care (routine discharge) documented as of this encounter Visit Diagnoses Not on filedocumented in this encounter Additional Health Concerns Assessment Noted Time PHQ-9 Depression Total Score: 19 023 4:26 PM CDT PHQ-2 Depression Total Score: 3 06/02/20 23 4:26 PM CDT documented as of this encounter
--- OUTSIDE RECORDS SUMMARY | 2023-11-10 15:07 | XMS_ITS | Encounter Summary ---
Author Name Unknown Organization [facility] Address 1 [place] [address] Phone Care Team Providers Care Paintings Restorer Name Role Phone Unavailable Primary Care Provider Unavailabl e Encounter Details Date Type Department Care Team Description 07/15/2023 10:00 AM CDT Telemedicine Psych Rehab [facility] [address] [place] [address] [phone] Claire Workman LPCC 701 [place], [place] 2624[address] Discharge Disposition: Discharged to home or self [...] - 07/15/2023 10:00 AM CDT Dept: [facility] Type of Service: Group Therapy Provider/Group Circus Train Supervisor: Claire Workman LPCC Date of Service: 07/15/2023 Start Time: 10:00 AM Stop Time: 11:30 AM Number of Group Members Present: 5 Name of Group: Tuesday Connections Group Frequency: Weekly Location of Service: Hybrid Group (some participants face to face and some some on video): If this option is selected, telemed statement needs to be added for those who were on video. Telemedicine: I Love QC Video Visit: This telemedicine visit is conducted by audio and video technology between thepatient and provider. Informed consent was provided during e-check in and signed by patient. Patient was offered opportunity to ask any questions. Patient's Physical Location: Home Provider's Physical Location: Onsite at [facility]/Affiliate Participants in this Telemedicine Visit other than the patient/provided included: Group members This visit started at: 10 AM and concluded at: 11:30 AM. Group Description: Tuesday Connections group consists of a psychotherapy group with content from [place] [employer]. Session Content of Today's [...] 2. Trauma and stressor-related disorder Claire Workman [facility], 07/15/2023 11:53 AM documented in this encounter Plan of Treatment Upcoming Encounters Date Type Department Care Team Description 11/24/2023 1:30 PM SAP BOBJ DEVELOPER [facility] [address] [address] Shahbaz Urias MD 701 [facility] O5 [place] [address] Scheduled Discharge Disposition: Discharged to home or self care (routine discharge) 01/03/2024 3:00 PM CDT Telemedicine [facility] Sleep Center [address] [facility] [address]8.220 [place] [address] Trip Nieto MD 701 [place] [address] Scheduled Discharge Disposition: Discharged to home or [...]
--- OUTSIDE RECORDS SUMMARY | 2023-11-10 15:07 | XMS_ITS | Encounter Summary ---
Author Name Unknown Organization [facility] Address [address] [place] [address] Phone Care Team Providers Care Microsystems Engineer Name Role Phone Unavailable Primary Care Provider Unavailabl e Reason for Visit * Prior Authorization (Routine) - Closed Specialty Diagnoses / Procedures Referred By Contac t Referred To Contact Psych Rehab Diagnoses Bipolar II disorder () Trauma and stressor-related disorder Procedures MOTHER BABY ENROLLMENT Jazmine Potter, [facility] 701 [place] [address] [address] Referral ID Status Reason Start Date Expiration Date Visits Re quested Visits Authorized [id number] Closed 05/09/2023 06/24/2023 105 105 Encounter Details Date Type Department Care Team Description 06/23/2023 10:15 AM CDT [facility] [address] [place] [address] [phone] Karoline Bensno MD [address] [facility] S1 860 [place], [place] [phone] Dh, Mother Baby Discharge Disposition: Discharged to [...] LPCC - 06/23/2023 10:15 AM CDT Dept: [facility] Type of Service: Group Therapy Name of Group: Psychotherapy Process Group Provider/Group Plastic Mixer: Claire Workman LPCC Date of Service: 06/23/2023 Start Time: 10:15 AM Stop Time: 11:00 AM Number of Group Members Present: 4 Location of Service: Face to Face at [facility] Session Content of Today's Group: [...] 2. Trauma and stressor-related disorder [facility]man [facility] 06/23/2023 11:27 AM documented in this encounter Plan of Treatment Upcoming Encounters Date Type Department Care Team Description 11/24/2023 1:30 PM MOUNTING MACHINE OPERATOR [facility] [address] [address] Shahbaz Urias MD [address] [place] [address] O5 [place] [address] Scheduled Discharge Disposition: Discharged to home or self care (routine discharge) 01/03/2024 3:00 PM CDT Telemedicine [facility] Sleep Center [address] [place] [address] G8.220 [place] [address] Trip Nieto MD [address] [place] [address] Scheduled Discharge Disposition: Discharged to home or [...]
--- OUTSIDE RECORDS SUMMARY | 2023-11-10 15:08 | XMS_ITS | Encounter Summary ---
Author Name Unknown Organization [facility] Address [address] [place] [address] Phone Care Team Providers Care Lease Picker Name Role Phone Unavailable Primary Care Provider Unavailabl e Reason for Visit * Prior Authorization (Routine) - Closed Specialty Diagnoses / Procedures Referred By Contac t Referred To Contact Psych Rehab Diagnoses Bipolar II disorder () Trauma and stressor-related disorder Procedures MOTHER BABY ENROLLMENT Jazmine Potter, [facility] [address] [place] [address] [address] Referral ID Status Reason Start Date Expiration Date Visits Re quested Visits Authorized [id number] Closed 05/09/2023 06/24/2023 105 105 Encounter Details Date Type Department Care Team Description 06/16/2023 9:30 AM CDT [facility] [address] [place] [address] [phone] Karoline Benson MD 701 [facility] S1 [address]60 [place], [place] [phone] Dh, Mother Baby Discharge Disposition: Discharged to [...] Department Care Team Description 11/24/2023 1:30 PM CONTRACT ADMINISTRATION MANAGER Office [facility] [address] [address] Shahbaz Urias MD 701 [facility] O5 [place] [address] Scheduled Discharge Disposition: Discharged to home or self care (routine discharge) 01/03/2024 3:00 PM CDT Telemedicine [facility] Sleep Center 701 [place] [address] [place] [address] Trip Nieto MD 701 [place], [place] [address] Scheduled Discharge Disposition: Discharged to home or self care (routine discharge) documented as of this encounter Visit Diagnoses Not on filedocumented in this encounter Additional Health Concerns Assessment Noted Time PHQ-9 Depression Total Score: 19 023 4:26 PM CDT PHQ-2 Depression Total Score: 3 06/02/20 23 4:26 PM CDT documented as of this encounter
--- OUTSIDE RECORDS SUMMARY | 2023-11-10 15:08 | XMS_ITS | Encounter Summary ---
Author Name Unknown Organization [facility] Address [address] [place] [address] Phone Care Team Providers Care Maple Products Supervisor Name Role Phone Unavailable Primary Care Provider Unavailabl e Reason for Visit * Prior Authorization (Routine) - Closed Specialty Diagnoses / Procedures Referred By Contac t Referred To Contact Psych Rehab Diagnoses Bipolar II disorder () Trauma and stressor-related disorder Procedures MOTHER BABY ENROLLMENT Jazmine Potter, [facility] 701 [place] [address] [address] Referral ID Status Reason Start Date Expiration Date Visits Re quested Visits Authorized [id number] Closed 05/09/2023 06/24/2023 105 105 Encounter Details Date Type Department Care Team Description 06/20/2023 11:00 AM CDT [facility] [address] [place] [address] [phone] Karoline Benson MD 701 [facility] S1 860 [place], [place] [address] Dh, Mother Baby Discharge Disposition: Discharged to [...] LPCC - 06/20/2023 11:00 AM CDT Dept: [facility] Type of Service: Group Therapy Name of Group: Psychoeducation/Skills Group Provider/Group Well Driller Helper: Claire Workman LPCC Date of Service: 06/20/2023 Start Time: 11:15 AM Stop Time: 12:00 PM Number of Group Members Present: 3 Location of Service: Face to Face at [facility] Session Content (Intervention): The purpose of this group was to provide education through information-sharing and facilitated group discussion. Handouts were provided and covered in detail. Skills taught today included: Parenting Education (describe [place] [employer]) The patient???s response [...] Department Care Team Description 11/24/2023 1:30 PM SOA INTEGRATION ARCHITECT Office [facility] [address] [address] Shahbaz Urias MD 701 [facility] [address] [place] [address] Scheduled Discharge Disposition: Discharged to home or self care (routine discharge) 01/03/2024 3:00 PM CDT Telemedicine [facility] Sleep Center 701 [address] [place] [address] Trip Nieto MD 701 [place] [address] Scheduled Discharge Disposition: Discharged to home or [...]
--- OUTSIDE RECORDS SUMMARY | 2023-11-10 15:08 | XMS_ITS | Encounter Summary ---
Author Name Unknown Organization [facility] Address [address] [place] [address] Phone Care Team Providers Care Compressor Mechanic Name Role Phone Unavailable Primary Care Provider Unavailabl e Reason for Visit * Prior Authorization (Routine) - Closed Specialty Diagnoses / Procedures Referred By Contac t Referred To Contact Psych Rehab Diagnoses Bipolar II disorder () Trauma and stressor-related disorder Procedures MOTHER BABY ENROLLMENT Jazmine Potter, [facility] [address] [place] [address] [address] Referral ID Status Reason Start Date Expiration Date Visits Re quested Visits Authorized [id number] Closed 05/09/2023 06/24/2023 105 105 Encounter Details Date Type Department Care Team Description 06/20/2023 12:30 PM CDT [facility] [address] [place] [phone] Karoline Benson MD 701 [facility] S1 860 [place], [place] [address] Dh, Mother Baby Discharge Disposition: Discharged to [...] OTR/L - 06/20/2023 12:30 PM CDT Dept: [facility] Type of Service: Group Therapy Name of Group: Wellness Group Provider/Group Ore Bridge Operator: Alisha Hardy OTR/L Date of Service: 06/20/2023 Start Time: 12:45 PM Stop Time: 1:30 PM Number of Group Members Present: 4 Location of Service: Face to Face at [facility] ROCK DUSTER SERVICES PROVIDED (if applicable): No Session Content [...] Department Care Team Description 11/24/2023 1:30 PM SHAKE MAKER Office [facility] [address] [address] Shahbaz Urias MD 701 [facility] [place], [place] [address] Scheduled Discharge Disposition: Discharged to home or self care (routine discharge) 01/03/2024 3:00 PM CDT Telemedicine [facility] Sleep Center 701 [facility] [address]8.220 [place] [address] Trip Nieto MD 701 [place] [address] Scheduled Discharge Disposition: Discharged to home or [...]
--- OUTSIDE RECORDS SUMMARY | 2023-11-10 15:08 | XMS_ITS | Encounter Summary ---
Author Name Unknown Organization [facility] Address [address] [place] [address] Phone Care Team Providers Care Resident Care Manager Name Role Phone Unavailable Primary Care Provider Unavailabl e Reason for Visit * Prior Authorization (Routine) - Closed Specialty Diagnoses / Procedures Referred By Contac t Referred To Contact Psych Rehab Diagnoses Bipolar II disorder () Trauma and stressor-related disorder Procedures MOTHER BABY ENROLLMENT Jazmine Potter, [facility] [address] [place] [address] [address] Referral ID Status Reason Start Date Expiration Date Visits Re quested Visits Authorized [id number] Closed 05/09/2023 06/24/[phone] Encounter Details Date Type Department Care Team Description 06/16/2023 11:00 AM CDT Psych Rehab [facility] [address] [place] [address] 232295 Karoline Benson MD 701 [facility] S1 860 [place], [place] [address] Dh, Mother Baby Discharge Disposition: Discharged to [...] PT - 06/16/2023 11:00 AM CDT Dept: [facility] Type of Service: Group Therapy Provider/Group Electromechanical Assembler: Sara Cunha PT Date of Service: 06/16/2023 Start Time: 11:00 AM Stop Time: 12:00 PM Number of Group Members Present: 5 Name of Group: Movement Location of Service: Face to Face at a [facility] BRAND MARKETING MANAGER SERVICES PROVIDED (if applicable): No Session Content (Intervention) (including goal/intended outcome): Mindful Movement. Encouraged group members to participate in mind-body skills facilitated by [facility] Trauma-Informed Yoga providers. Trauma-sensitive mind-body skills and [...] Department Care Team Description 11/24/2023 1:30 PM CHILD DEVELOPMENT PROFESSOR Office [facility] [address] [address] Shahbaz Urias MD [address] [place] [address] Scheduled Discharge Disposition: Discharged to home or self care (routine discharge) 01/03/2024 3:00 PM CDT Telemedicine [facility] Sleep Center [address] [place] [address] Trip Nieto MD [address] [place] [address] Scheduled Discharge Disposition: Discharged to home or [...]
--- OUTSIDE RECORDS SUMMARY | 2023-11-10 15:08 | XMS_ITS | Encounter Summary ---
Author Name Unknown Organization [facility] Address [address] [place] [address] Phone Care Team Providers Care Safety Grooving Machine Operator Name Role Phone Unavailable Primary Care Provider Unavailabl e Reason for Visit * Prior Authorization (Routine) - Closed Specialty Diagnoses / Procedures Referred By Contac t Referred To Contact Psych Rehab Diagnoses Bipolar II disorder () Trauma and stressor-related disorder Procedures MOTHER BABY ENROLLMENT Jazmine Potter, [facility] 701 [place] [address] [address] Referral ID Status Reason Start Date Expiration Date Visits Re quested Visits Authorized [id number] Closed 05/09/2023 06/24/2023 105 105 Encounter Details Date Type Department Care Team Description 06/22/2023 10:15 AM CDT Psych Rehab [facility] [address] [place] [address] [phone] Karoline Benson MD 701 [facility] S1 860 [place], [place] 1737[address] Dh, Mother Baby Discharge Disposition: Discharged to [...] LPCC - 06/22/2023 10:15 AM CDT Dept: [facility] Family [facility] Type of Service: Group Therapy Name of Group: Psychotherapy Process Group Provider/Group Shot Fireman: Claire Workman LPCC Date of Service: 06/22/2023 Start Time: 10:15 AM Stop Time: 11:00 AM Number of Group Members Present: 5 Location of Service: Face to Face at [facility] Session Content of Today's Group: At the [...] 2. Trauma and stressor-related disorder Claire Workman [facility], 06/22/2023 12:58 PM documented in this encounter Plan of Treatment Upcoming Encounters Date Type Department Care Team Description 11/24/2023 1:30 PM ACCOUNTING CLERK Office [facility] [address] [address] Shahbaz Urias MD [address] [place] [address] O5 [place] [address] Scheduled Discharge Disposition: Discharged to home or self care (routine discharge) 01/03/2024 3:00 PM CDT Telemedicine [facility] Sleep Center [address] [place] [address] G[address].220 [place] [address] Trip Nieto MD [address] [place] [address] Scheduled Discharge Disposition: Discharged to home or self care (routine discharge) documented as of this encounter Visit Diagnoses Diagnosis Bipolar II disorder ()- Primary Other bipolar disorders Trauma and stressor-related disorder documented in this encounter Additional Health Concerns Assessment Noted Time PHQ-9 Depression Total Score: 19 08/2 023 4:26 PM CDT PHQ-2 Depression Total Score: 3 06/02/20 23 4:26 PM CDT documented as of this encounter
--- OUTSIDE RECORDS SUMMARY | 2023-11-10 15:08 | XMS_ITS | Encounter Summary ---
Author Name Unknown Organization [facility] Address [address] [place] [address] Phone Care Team Providers Care Network Infrastructure Architect Name Role Phone Unavailable Primary Care Provider Unavailabl e Reason for Visit * Prior Authorization (Routine) - Closed Specialty Diagnoses / Procedures Referred By Contac t Referred To Contact Psych Rehab Diagnoses Bipolar II disorder () Trauma and stressor-related disorder Procedures MOTHER BABY ENROLLMENT Jazmine Potter, [facility] [address] [place] [address] [address] Referral ID Status Reason Start Date Expiration Date Visits Re quested Visits Authorized [id number] Closed 05/09/2023 06/24/2023 105 105 Encounter Details Date Type Department Care Team Description 06/16/2023 1:45 PM CDT Psych Rehab [facility] [address] [place] [address] [phone] Karoline Benson MD 701 [facility] S1 860 [place], [place] [address] Dh, Mother Baby Discharge Disposition: Discharged to [...] LPCC - 06/16/2023 1:45 PM CDT Dept: [facility] Type of Service: Group Therapy Name of Group: Psychoeducation/Skills Group Provider/Group Structural Metal Worker: Claire Workman LPCC Date of Service: 06/16/2023 Start Time: 1:45 PM Stop Time: 2:30 PM Number of Group Members Present: 6 Location of Service: Face to Face at [facility] Session Content (Intervention): The purpose of [...] Department Care Team Description 11/24/2023 1:30 PM STRAIGHTEDGE WORKER Office [facility] [address] [address] Shahbaz Urias MD [address] [place] [address] Scheduled Discharge Disposition: Discharged to home or self care (routine discharge) 01/03/2024 3:00 PM CDT Telemedicine [facility] Sleep Center [address] [place] [address] Trip Nieto MD [address] [place] [address] Scheduled Discharge Disposition: Discharged to home or [...]
--- OUTSIDE RECORDS SUMMARY | 2023-11-10 15:08 | XMS_ITS | Encounter Summary ---
Author Name Unknown Organization [facility] Address 701 [place] [address] Phone Care Team Providers Care Manager Acquisition Name Role Phone Unavailable Primary Care Provider Unavailabl e Reason for Visit * Reason Comments Psych Medication Management Encounter Details Date Type Department Care Team Description 06/16/2023 10:00 AM CDT Psych Rehab [facility] 701 [place], [place] 223955 Karoline Benson MD 701 [facility] S1 860 [place], [place] [phone] Psych Medication Management Discharge Disposition: Discharged to [...] original note were not included. Mother Baby [facility], Psychiatry Visit Started the [facility] on: 05/09/23 (admitted to [facility] Psychiatry 06/08-06/15/23) Merry Rooney is a 23 y.o. mother of baby (Aidan born 05/03/23) and 2 year old son (Chuy). Referred by [place] inpatient initially to the [facility]. Also admitted while she was in the program to [facility] ([place], [place]) 05/24-05/30/23. Cultural Context: white, Tuvaluan and Arabic Pronouns: she/her/hers; Supports: [place] -- supportive Therapist: ; PCP: ; OB-CHIEF ARCHITECT: Antonio Ob; Rolled Materials Worker: Feeding Method: mainly formula because milk supply [...] she was in the program to [facility] ([place], [place]) 05/24- 05/30/23. Multiple, recent ED visits for physical sx of anxiety as well as SI - mainly to [place] ED (see 06/02/[address] Esposito for recent summary of ED courses). Admitted to [facility] Psychiatry 06/08-06/15/23) Diagnostic Impression(s) Bipolar II Disorder, current episode depressed, severe with psychotic symptoms PTSD and (Complex Developmental Trauma) Unspecified anxiety (intrusive thoughts) Opioid and alcohol use disorders, by history Multiple closed head injuries and hx of seizure preeclampsia Assessment [place], caring, resilient 23 y.o. mother of 2 following a harrowing course with psychotic symptoms and possible preeclampsia leading to transfer to [place] ICU. Longitudinal course consistent with Complex Developmental Trauma and bipolar spectrum leading to a psychiatric admission ( 05/24- to [facility]) and recent admission to 06/08-06/15/23 [facility]. Improved depression and no current suicidal ideation. [...] Discharge planning. Intervening History Recent admission to [facility] Psychiatry reviewed -- 06/08-06/15/23 Today -I feel [...] 150.0 ng/mL Final Comment: Test Performed by: [facility] Laboratory [address] [place] [address] Transferrin 06/12/2023 293 200 - 360 mg/dL [...] when she was 4. Mother lived in [place]. 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 Legal: no had involvement with the legal system. The patient reports the following spiritual and/or cultural history: Tuvaluan and Arabic background Relationship to her partner/father/co-parent [...] Department Care Team Description 11/24/2023 1:30 PM ABORIGINAL LIAISON OFFICER Office [facility] [address] [address] Shahbaz Urias MD [address] [place] [address] O5 [place] [address] Scheduled Discharge Disposition: Discharged to home or self care (routine discharge) 01/03/2024 3:00 PM CDT Telemedicine [facility] Sleep Center 1 [facility] G8.[address] [place], [place] 09[address] Trip Nieto MD [address] [place] [address] [phone] Scheduled Discharge Disposition: Discharged to home or self care (routine discharge) documented as of this encounter Visit Diagnoses Not on filedocumented in this encounter Additional Health Concerns Assessment Noted Time PHQ-9 Depression Total Score: 19 023 4:26 PM CDT PHQ-2 Depression Total Score: 3 06/02/20 23 4:26 PM CDT documented as of this encounter
--- OUTSIDE RECORDS SUMMARY | 2023-11-10 15:08 | XMS_ITS | Encounter Summary ---
Author Name Unknown Organization [facility] Address [address] [place] [address] Phone Care Team Providers Care Relocation Coordinator Name Role Phone Unavailable Primary Care Provider Unavailabl e Reason for Visit * Reason Comments Mother Baby - Individual Psychotherapy * Prior Authorization (Routine) - Closed Specialty Diagnoses / Procedures Referred By Bernardo t Referred To Contact Psych Rehab Diagnoses Bipolar II disorder () Trauma and stressor-related disorder Procedures MOTHER BABY ENROLLMENT Jazmine Potter, [facility] [address] [place] [address] [address] Referral ID Status Reason Start Date Expiration Date Visits Re quested Visits Authorized [id number] Closed 05/09/2023 06/24/2023 105 105 Encounter Details Date Type Department Care Team Description 06/20/2023 2:30 PM CDT Psych Rehab [facility] [address] [place] [address] [phone] Claire Workman, [facility] 701 [place], [place] [phone] Mother Baby - Individual Psychotherapy Discharge Disposition: [...] encounter Progress Notes * Ji Claire Garcia, [facility] - 06/20/2023 2:30 PM CDT [facility] for Family [facility] Progress Note Date of Service: 06/20/2023 Start Time: 2:30 pm Stop Time: 3 pm Location of Visit: Face to Face at [facility] Participants in this Visit other than [...] plan and plan for further services, including [facility] Psychotherapy outpatient services. Patient Response to Intervention [...] this provider in , then transition to [facility] Psychotherapy provider; therapy homework = n/a 2. Psychiatric care: Continue with providers, then transition to [facility] Psychotherapy prescriber 3. Utilize emergency resources (APS, COPE) if needed; Safety Plan created and in effect Claire Workman LPCC, 06/20/23, 3:14 PM documented in this encounter Plan of Treatment Upcoming Encounters Date Type Department Care Team Description 11/24/2023 1:30 PM CUSTOM FURRIER Office Visit [facility] [address] [address] Shahbaz Urias MD [address] [place] [address] [place] [address] Scheduled Discharge Disposition: Discharged to home or self care (routine discharge) 01/03/2024 3:00 PM CDT Telemedicine [facility] Sleep Center [address] [place] [address] Trip Nieto MD [address] [place] [address] Scheduled Discharge Disposition: Discharged to home or [...]
--- OUTSIDE RECORDS SUMMARY | 2023-11-10 15:08 | XMS_ITS | Encounter Summary ---
Author Name Unknown Organization [facility] Address 701 [place] [address] Phone Care Team Providers Care Forklift Truck Mechanic Name Role Phone Unavailable Primary Care Provider Unavailabl e Reason for Visit * Reason Onset Date Comments Mother Baby - Mental Health Outreach 06/17/2023 Encounter Details Date Type Department Care Team Description 06/17/2023 Telephone [facility] Family [facility] 701 [place] [address] Regina Romero [facility] 701 [place] [address] Mother Baby - Mental Health Outreach Social [...] Care Team Description 11/24/2023 1:30 PM HUMAN SERVICE WORKER Office Visit [facility] [address] [address] Shahbaz Urias MD 701 [place] O5 [place], [place] [phone] Scheduled Discharge Disposition: Discharged to home or self care (routine discharge) 01/03/2024 3:00 PM CDT Telemedicine [facility] Sleep Center 701 [facility] [address] [place], [place] 0867[address] Trip Nieto MD 701 [place] [address] Scheduled Discharge Disposition: Discharged to home or self care (routine discharge) documented as of this encounter Visit Diagnoses Not on filedocumented in this encounter Additional Health Concerns Assessment Noted Time PHQ-9 Depression Total Score: 19 023 4:26 PM CDT PHQ-2 Depression Total Score: 3 06/02/20 23 4:26 PM CDT documented as of this encounter
--- OUTSIDE RECORDS SUMMARY | 2023-11-10 15:08 | XMS_ITS | Encounter Summary ---
Author Name Unknown Organization [facility] Address 701 [place] [address] Phone Care Team Providers Care Cake Tester Name Role Phone Unavailable Primary Care Provider Unavailabl e Reason for Visit * Reason Comments Psych Medication Management Encounter Details Date Type Department Care Team Description 06/20/2023 10:00 AM CDT Psych Rehab [facility] 701 [place], [place] [phone] Karoline Benson MD 701 [facility] S1 [phone] Psych Medication Management Discharge Disposition: Discharged to [...] Hospital, Psychiatry Visit Started the [facility] on: 05/09/23 (admitted to [facility] Psychiatry 06/08-06/15/23) Merry Rooney is a 23 y.o. mother of baby (Aidan born 05/03/23) and 2 year old son (Chuy). Referred by [place] inpatient initially to the [facility]. Also admitted while she was in the program to [facility] ([place], [place]) 05/24-05/30/23. Cultural Context: white, Khmer and Ghanaian Pronouns: she/her/hers; Supports: [place] -- supportive Therapist: ; PCP: ; OB-INNOVATION MANAGER: Antonio Ob; Flight Test Engineer: Feeding Method: mainly formula because milk supply [...] while she was in the program to [facility] ([place] [place]) 05/24- 05/30/23. Multiple, recent ED visits for physical sx of anxiety as well as SI - mainly to [place] ED (see 06/02/[address] Esposito for recent summary of ED courses). Admitted to [facility] Psychiatry 06/08-06/15/23) Diagnostic Impression(s) Bipolar II Disorder, current episode depressed, severe with psychotic symptoms PTSD and (Complex Developmental Trauma) Unspecified anxiety (intrusive thoughts) Opioid and alcohol use disorders, by history Multiple closed head injuries and hx of seizure preeclampsia Assessment [place], caring, resilient 23 y.o. mother of 2 following a harrowing course with psychotic symptoms and possible preeclampsia leading to transfer to [place] ICU. Longitudinal course consistent with Complex Developmental Trauma and bipolar spectrum leading to a psychiatric admission ( 05/24- to [facility]) and recent admission to 06/08-06/15/23 [facility]. Improved depression and no current suicidal ideation. [...] Discharge planning. Intervening History Recent admission to [facility] Psychiatry reviewed -- 06/08-06/15/23 Today -Yesterday stopped [...] 150.0 ng/mL Final Comment: Test Performed by: [facility] Laboratory [address] [place] [address] Transferrin 06/12/2023 293 200 - 360 mg/dL [...] when she was 4. Mother lived in [place]. Mother's place was safe space but she [...] reports the following spiritual and/or cultural history: Khmer and Ghanaian background Relationship to her partner/father/co-parent of the [...] Department Care Team Description 11/24/2023 1:30 PM SMALL PRODUCTS I ASSEMBLER Office Visit [facility] Cardiology Clinic [address] [address] Shahbaz Urias MD [address] [place] [address] O5 [address] Scheduled Discharge Disposition: Discharged to home or self care (routine discharge) 01/03/2024 3:00 PM CDT Telemedicine [facility] Sleep Center [address] [place], [place] [address]cat G8.220 [place] [address] Trip Nieto MD [address] [place] [address] Scheduled Discharge Disposition: Discharged to home or self care (routine discharge) documented as of this encounter Visit Diagnoses Not on filedocumented in this encounter Additional Health Concerns Assessment Noted Time PHQ-9 Depression Total Score: 19 023 4:26 PM CDT PHQ-2 Depression Total Score: 3 06/02/20 23 4:26 PM CDT documented as of this encounter
--- OUTSIDE RECORDS SUMMARY | 2023-11-10 15:08 | XMS_ITS | Encounter Summary ---
Author Name Unknown Organization [facility] Address 701 [facility] [place] [address] Phone Care Team Providers Care Head Of Cytogenetics Name Role Phone Unavailable Primary Care Provider Unavailabl e Reason for Visit * Reason Comments Mother Baby - Family Session * Auth/Cert (Routine) Specialty Diagnoses / Procedures Referred By Contac t Referred To Contact PSYCHIATRY Diagnoses Bipolar II disorder () PTSD (post-traumatic stress disorder) Suicidal ideation Anxiety disorder, unspecified type Ildefonso Aviles MD 701 [place] [address] Psychiatry 3 Inpt (B5) 701 [facility] B5.360 [place] [address] Referral ID Status Reason Start Date Expiration Date Visits Re quested Visits Authorized [id number] 1 1 Encounter Details Date Type Department Care Team Description 06/15/2023 3:30 PM CDT Telemedicine Psych [facility] 701 [place], [place] [address] Noy Chen, CLINICAL WRITER 701 [facility] [place], [place] [phone] Mother Baby - Family Session Discharge Disposition: [...] this encounter Progress Notes * Noy Chen, CLINICAL WRITER - 06/15/2023 3:30 PM CDT [facility] for [facility] Progress Note Date of Service: 06/15/2023 Start Time: 3:30pm Stop Time: 4:30pm Location of Visit: Telemedicine: [employer] Video Visit: This telemedicine visit is conducted by audio and video technology between thepatient and provider. Informed consent was provided during e-check in and signed by patient. Patient was offered opportunity to ask any questions. Patient's Physical Location: Vehicle Provider's Physical Location: Onsite at [facility] Participants in this Visit other than the patient/provider included: Patient's partner. Pt was not present during today's visit. EXTRUSION MACHINE OPERATOR SERVICES PROVIDED (if applicable): No Type of [...] Plan: 1. Psychotherapy: Pt to continue in [facility] programming; partner to engage in brief, individual support through MB team to ensure he and partner are best supported at this time 2. Psychiatric care: Dr. Benson/Dr. Mejia 3. Utilize emergency resources (APS, COPE) Noy Chen LICSW, 06/17/2023 11:03 AM documented in this encounter Plan of Treatment Upcoming Encounters Date Type Department Care Team Description 11/24/2023 1:30 PM SCIENCES DEAN Office Visit [facility] Cardiology Clinic [address] [address] Shahbaz Urias MD [address] [place] [address] O5 [place] [address] Scheduled Discharge Disposition: Discharged to home or self care (routine discharge) 01/03/2024 3:00 PM CDT Telemedicine [facility] Sleep Center 701 [facility] G8.220 [place] [address] Trip Nieto MD [address] [place] [address] Scheduled Discharge Disposition: Discharged to home or [...]
--- OUTSIDE RECORDS SUMMARY | 2023-11-10 15:08 | XMS_ITS | Encounter Summary ---
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 Arranger Name Role Phone Unavailable Primary Care Provider Unavailabl e Reason for Visit * Prior Authorization (Routine) - Closed Specialty Diagnoses / Procedures Referred By Contac t Referred To Contact Psych Rehab Diagnoses Bipolar II disorder () Trauma and stressor-related disorder Procedures MOTHER BABY ENROLLMENT Jazmine Potter, [facility] [address] [place] [address] [address] Referral ID Status Reason Start Date Expiration Date Visits Re quested Visits Authorized [id number] Closed 05/09/2023 06/24/[phone] Encounter Details Date Type Department Care Team Description 06/20/2023 1:45 PM CDT [facility] [address] [place] [id number] Karoline Benson MD [address] [facility] [address] [place], [place] [phone] Dh, Mother Baby Discharge Disposition: Discharged to [...] LICSW - 06/20/2023 1:45 PM CDT Dept: [facility] Type of Service: Group Therapy Name of Group: Psychoeducation/Skills Group Provider/Group Mental Measurements Teacher: Jazmine Potter LICSW Date of Service: 06/20/2023 Start Time: 1:45 PM Stop Time: 2:30 PM Number of Group Members Present: 3 Location of Service: 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 SERVICES PROVIDED (if applicable): No [...] Department Care Team Description 11/24/2023 1:30 PM 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
--- OUTSIDE RECORDS SUMMARY | 2023-11-10 15:08 | XMS_ITS | Encounter Summary ---
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 of 7%,normal ferritin. Rosa Astudillo DO PGY-2 Supervisor Lending Activities * Nursing Assessment - Cyndie Gabriel RN [...] MURPHY says she will reach out to programming engineer to see if there can be an [...] phone and she did not have a facility maintenance mechanic. She also doesn't feel comfortable pumping [...] visit tomorrow and will bring her phone facility maintenance mechanic. LC talked to nursing staff. Nurse [...] 3 hours -Drinking and eating more -Getting facility maintenance mechanic for phone to charge for pictures [...] to page if you have questions. ++++++++++++++++++++++++++++++++++++++++++++++++++++++++++++++++ PURCHASING CONTRACTING CLERK PRESENT? NO LANGUAGE: Scottish [50] MEDICATIONS: No current facility-administered medications on [...] Counseling/Coordination/Education time 20 minutes. ALEXANDER Jin Services [phone] (MILK) * Nursing Assessment - Micha Yan [...] after she had been seen at the [facility] due to increased suicidal [...] Department Care Team Description 11/24/2023 1:30 PM HIGH SCHOOL SOCIAL STUDIES TEACHER Office Visit [facility] Cardiology Clinic [address] [address] Shahbaz Urias MD 701 [facility] O5 [place], [place] [address] Scheduled Discharge Disposition: Discharged to home or self care (routine discharge) 01/03/2024 3:00 PM CDT Telemedicine [facility] Sleep Center 701 [facility] [address] [place], [place] [address] Trip Nieto MD 701 [place], [place] [phone] Scheduled Discharge Disposition: Discharged to home or [...] CDT) Iron 32(L) 35 - 145 mcg/dL [facility] Blood 06/12/2023 8:27 AM CDT 06/12/2023 8:50 AM CDT Mervin Middleton MD LABORATORY [facility] [address] [address] * (ABNORMAL) TRANSFERRIN (INCLUDES TIBC) (06/12/2023 8:27 AM CDT) Transferrin 293 200 - 360 mg/dL [facility] IBC 437 298 - 536 mcg/dL [facility] Iron Saturation Percent 7(L) 20 - 50 % [facility] Blood 06/12/2023 8:27 AM CDT 06/12/2023 8:50 AM CDT Mervin Middleton MD LABORATORY Performing Organization Address City/[facility]/ZIP Co de Phone Number [facility] [address] [address] * FERRITIN (06/12/2023 8:27 AM CDT) Pathologist [facility] Ferritin 18.9 13.0 - 150.0 ng/mL [facility] Comment: Test Performed by: [facility] Laboratory [address] [place] [address] Blood 06/12/2023 8:27 AM CDT 06/12/2023 8:50 AM CDT Mervin Middleton MD LABORATORY Performing Organization Address City/[facility]/ZIP Co de Phone Number [facility] [address] [address] * (ABNORMAL) PANEL LIPID (06/11/2023 8:44 AM CDT) HDL 46(L) >=50 mg/dL [facility] Comment: Interpretive Data Normal > 40 Male > 50 Female Cholesterol 152 <=200 mg/dL [facility] Comment: Interpretive Data <200 Desirable 200-239 Borderline high >=240 High Triglyceride 104 <=150 mg/dL [facility] Comment: Interpretive Data <150 Normal 150-199 Borderline high 200-499 High >=500 Very high Calc LDL 85 <=100 mg/dL [facility] Comment: Interpretive Data <100 Desirable 100-129 Above desirable 130-159 Borderline high 160-189 High >=190 Very high Non-HDL Cholesterol Calculated 106 <=130 mg/dL [facility] Comment: Interpretive Data <130 Desirable 130-159 Above desirable 160-189 Borderline high 190-219 High >=220 Very high Blood 06/11/2023 8:44 AM CDT 06/11/2023 9:10 AM CDT Narrative [facility] - 06/11/2023 9:35 AM CDT Fasting: Yes Mervin Middleton MD LABORATORY [facility] [address] [address] * CT HEAD NO IV CONTRAST (06/10/2023 [...] Oral, BEDTIME, First dose on Tue06/08/23 at 2000, Until Discontinued Given 06/08/2023 8:18 PM CDT 5 mg tablet 1 tablet 1 tablet, Oral, BEDTIME, First dose on Tue06/10/23 at 2000, Until Discontinued Given 06/14/2023 8:06 PM CDT 1 tablet Given 06/13/2023 7:21 PM CDT 1 tablet Given 06/12/2023 7:28 PM CDT 1 tablet propranolol (INDERAL) tablet 10 mg 10 mg, Oral, BID, First dose on Tue06/08/23 at 2000, Until Discontinued Given 06/14/2023 9:04 AM CDT 10 mg Given 06/13/2023 7:21 PM CDT 10 mg Given 06/13/2023 8:24 AM CDT 10 mg risperiDONE (RISPERDAL) tablet 0.25 mg 0.25 mg, Oral, BEDTIME, First dose on Tue06/09/23 at 2000, Until Discontinued Given 06/09/2023 8:42 PM CDT [...] Until Discontinued 1317 (Given - Provider: Binu Street, LUCÍA) busPIRone (BUSPAR) tablet 7.5 mg 7.5 mg, Oral, BID, First dose on Tue06/08/23 at 2000, Until Discontinued 823 (Given - Provider: Humera Christiansen RN)1920 (Given - Provider: Humera Christiansen RN) 09 (Given - Provider: Binu [address], LUCÍA)2005 (Given - Provider: Amelia Benavides RN) 09 (Given - Provider: Eryn Romero, LUCÍA) DC MED REC REVIEW BY PHARMACY(Linked Group [...] 823 (Given - Provider: Humera Christiansen RN) 09 (Given - Provider: Eryn Romero, LUCÍA) lamoTRIgine (LaMICtal) tablet 25 mg (CANCELED) 25 mg, Oral, DAILY, First dose on Tue06/09/23 at 0800, Until Discontinued 0824 (Given - Provider: Humera Christiansen RN) 09 (Given - Provider: Binu Street RN) lamoTRIgine [...] 0827 (Given - Provider: Humera Christiansen RN) 033 (Given - Provider: Sharon Camarillo RN) hydrOXYzine [...] at 1418, Until Tue06/15/23 at 1352, Sleep 2006 (Given - Provider: Amelia Benavides RN) Linked [...]
--- OUTSIDE RECORDS SUMMARY | 2023-11-10 15:08 | XMS_ITS | Encounter Summary ---
Author Name Unknown Organization Formerly Named [facility] Address [address] [place] [address] Phone Care Team Providers Care Engineering Assistant Name Role Phone Unavailable Primary Care Provider Unavailabl e Reason for Visit * Prior Authorization (Routine) - Closed Specialty Diagnoses / Procedures Referred By Contac t Referred To Contact Psych Rehab Diagnoses Bipolar II disorder () Trauma and stressor-related disorder Procedures MOTHER BABY ENROLLMENT Jazmine Potter, [facility] [address] [place] [address] [address] Referral ID Status Reason Start Date Expiration Date Visits Re quested Visits Authorized [id number] Closed 05/09/2023 06/24/2023 105 105 Encounter Details Date Type Department Care Team Description 06/22/2023 12:30 PM CDT [facility] [address] [place] [phone] Karoline Benson MD 701 [facility] S1 [address]60 [place], [place] [phone] Dh, Mother Baby Discharge Disposition: Discharged to [...] OTR/L - 06/22/2023 12:30 PM CDT Dept: [facility] Family [facility] Type of Service: Group Therapy Name of Group: Wellness Group Provider/Group Teaseler: Alisha Hardy OTR/L Date of Service: 06/22/2023 Start Time: 12:45 PM Stop Time: 1:30 PM Number of Group Members Present: 5 Location of Service: Face to Face at [facility] PITCH GATHERER SERVICES PROVIDED (if applicable): No Session Content [...] Department Care Team Description 11/24/2023 1:30 PM NAVAL SCIENCE TEACHER Office Visit [facility] Cardiology Clinic [address] [address] Shahbaz Urias MD 701 [facility] O5 [place], [place] [phone] Scheduled Discharge Disposition: Discharged to home or self care (routine discharge) 01/03/2024 3:00 PM CDT Telemedicine [facility] Sleep Center 701 [facility] [address] [place], [place] [address] Trip Nieto MD 701 [place] [address] Scheduled Discharge Disposition: Discharged to home or [...]
--- OUTSIDE RECORDS SUMMARY | 2023-11-10 15:08 | XMS_ITS | Encounter Summary ---
Author Name Unknown Organization [facility] Address [address] [place] [address] Phone Care Team Providers Care Juke Box Servicer Name Role Phone Unavailable Primary Care Provider Unavailabl e Reason for Visit * Prior Authorization (Routine) - Closed Specialty Diagnoses / Procedures Referred By Contac t Referred To Contact Psych Rehab Diagnoses Bipolar II disorder () Trauma and stressor-related disorder Procedures MOTHER BABY ENROLLMENT Jazmine Potter, [facility] [address] [place] [address] [address] Referral ID Status Reason Start Date Expiration Date Visits Re quested Visits Authorized [id number] Closed 05/09/2023 06/24/2023 105 105 Encounter Details Date Type Department Care Team Description 06/22/2023 9:30 AM CDT [facility] [address] [place] [phone] Karoline Benson MD 701 [facility] S1 [address]60 [place], [place] [phone] Dh, Mother Baby Discharge Disposition: Discharged to [...] LPCC - 06/22/2023 9:30 AM CDT Dept: [facility] Family [facility] Type of Service: Group Therapy Name of Group: Psychoeducation/Skills Group Provider/Group Mining Engineering Technologist: Claire Workman LPCC Date of Service: 06/22/2023 Start Time: 9:30 AM Stop Time: 10:15 AM Number of Group Members Present: 4 Location of Service: Face to Face at [facility] Session Content (Intervention): Welcomed any [...] Department Care Team Description 11/24/2023 1:30 PM HAT BLOCK MAKER Office Visit [facility] Cardiology Clinic [address] [place] [address] Shahbaz Urias MD [address] [place] [address] Scheduled Discharge Disposition: Discharged to home or self care (routine discharge) 01/03/2024 3:00 PM CDT Telemedicine [facility] Sleep Center [address] [place] [address] [place] [address] Trip Nieto MD 701 [place] [address] Scheduled Discharge Disposition: Discharged to home or [...]
--- OUTSIDE RECORDS SUMMARY | 2023-11-10 15:09 | XMS_ITS | Encounter Summary ---
Author Name Unknown Organization [facility] Address 701 [place] [address] Phone Care Team Providers Care Research Pharmacist Name Role Phone Unavailable Primary Care Provider Unavailabl e Encounter Details Date Type Department Care Team Description 05/31/2023 Telephone [facility] 701 [place] [address] Kiana Borges RN [facility] 701 [place] [address] Social History Tobacco Use Types Packs/Day Years [...] Pt called and requested to speak with play writer. Pt reported she has an appt [...] Department Care Team Description 11/24/2023 1:30 PM PROJECT ASST Office [facility] [address] [address] Shahbaz Urias MD [address] [place] [address] [address]5 [place] [address] Scheduled Discharge Disposition: Discharged to home or self care (routine discharge) 01/03/2024 3:00 PM CDT Telemedicine [facility] 701 [facility] [address] [place], [place] [address] Trip Nieto MD 1 [place], [place] [address] Scheduled Discharge Disposition: Discharged to home or self care (routine discharge) documented as of this encounter Visit Diagnoses Not on filedocumented in this encounter Additional Health Concerns Assessment Noted Time PHQ-9 Depression Total Score: 12 023 3:14 PM CDT PHQ-2 Depression Total Score: 2 05/18/20 23 3:14 PM CDT documented as of this encounter
--- OUTSIDE RECORDS SUMMARY | 2023-11-10 15:09 | XMS_ITS | Encounter Summary ---
Author Name Unknown Organization [facility] Address [address] [place] [address] Phone Care Team Providers Care Union Representative Name Role Phone Unavailable Primary Care Provider Unavailabl e Reason for Visit * Reason Comments Mother Baby - Family Session * Prior Authorization (Routine) - Closed Specialty Diagnoses / Procedures Referred By Bernardo t Referred To Contact Psych Rehab Diagnoses Bipolar II disorder () Trauma and stressor-related disorder Procedures MOTHER BABY ENROLLMENT Jazmine Potter, [facility] [address] [place] [address] [address] Referral ID Status Reason Start Date Expiration Date Visits Re quested Visits Authorized [id number] Closed 05/09/2023 06/24/2023 105 105 Encounter Details Date Type Department Care Team Description 06/01/2023 9:00 AM CDT Psych Rehab [facility] [address] [place] [phone] Claire Workman, [facility] 701 [place], [place] [phone] Mother Baby - Family Session Discharge Disposition: [...] this encounter Progress Notes * Claire Workman, [facility] - 06/01/2023 9:00 AM CDT [facility] Progress Note Date of Service: 06/01/2023 Start Time: 9 am Stop Time: 9:30 am Location of Visit: Face to Face at [facility] Participants in this Visit other than [...] effect and pt has copy Claire Workman, [facility], 05/18/2023 3:15 PM documented in this encounter Plan of Treatment Upcoming Encounters Date Type Department Care Team Description 11/24/2023 1:30 PM REGISTERED NURSE CARDIOVASCULAR ICU Office Visit [facility] Clinic [address] [address] Shahbaz Urias MD 701 [place] [address] [address] [place], [place] [address] Scheduled Discharge Disposition: Discharged to home or self care (routine discharge) 01/03/2024 3:00 PM CDT Telemedicine [facility] Sleep Center [address] [facility] [address] [place], [place] [phone] Trip Nieto MD 701 [place], [place] [phone] Scheduled Discharge Disposition: Discharged to home or [...]
--- OUTSIDE RECORDS SUMMARY | 2023-11-10 15:09 | XMS_ITS | Encounter Summary ---
Author Name Unknown Organization [facility] Address 1 [place] [address] Phone Care Team Providers Care Social Media Coordinator Name Role Phone Unavailable Primary Care [...] Department Care Team Description 11/24/2023 1:30 PM SHOWROOM EXECUTIVE DIRECTOR Office Visit [facility] Cardiology Clinic [address] [place] [address] Shahbaz Urias MD 701 [facility] O5 [place] [address] Scheduled Discharge Disposition: Discharged to home or self care (routine discharge) 01/03/2024 3:00 PM CDT Telemedicine [facility] 701 [facility] [address] [place] [address] Trip Nieto MD [address] [place], [place] [address] Scheduled Discharge Disposition: Discharged to home or self care (routine discharge) documented as of this encounter Visit Diagnoses Not on filedocumented in this encounter Additional Health Concerns Assessment Noted Time PHQ-9 Depression Total Score: 19 023 4:26 PM CDT PHQ-2 Depression Total Score: 3 06/02/20 23 4:26 PM CDT documented as of this encounter
--- OUTSIDE RECORDS SUMMARY | 2023-11-10 15:09 | XMS_ITS | Encounter Summary ---
Author Name Unknown Organization [facility] Address [address] [place] [address] Phone Care Team Providers Care Jailer Chief Name Role Phone Unavailable Primary Care [...] Department Care Team Description 11/24/2023 1:30 PM ENVIRONMENTAL AIDE Office Visit [facility] Cardiology Clinic [address] [phone] Shahbaz Urias MD [address] [facility] [place] [address] Scheduled Discharge Disposition: Discharged to home or self care (routine discharge) 01/03/2024 3:00 PM CDT Telemedicine [facility] Sleep Center [address] [place] [address] Trip Nieto MD [address] [place] [address] Scheduled Discharge Disposition: Discharged to home or [...]
--- OUTSIDE RECORDS SUMMARY | 2023-11-10 15:09 | XMS_ITS | Encounter Summary ---
Author Name Unknown Organization [facility] Address 701 [place] [address] Phone Care Team Providers Care Delivery Rep Name Role Phone Unavailable Primary Care Provider Unavailabl e Reason for Visit * Reason Comments Mother Baby - Family Session Encounter Details Date Type Department Care Team Description 06/07/2023 12:15 PM CDT Telemedicine [facility] 701 [place], [place] [phone] Claire Workman, [facility] 701 [place], [place] [address] Karoline Benson MD 701 [facility] S1 [address]60 [place], [place] [address] Mother Baby - Family Session Discharge Disposition: [...] this encounter Progress Notes * Claire Workman, [facility] - 06/07/2023 12:15 PM CDT [facility] Progress Note Date of Service: 06/07/2023 Start Time: 12:15 pm Stop Time: 12:52 pm Location of Visit: Hybrid (pt and infant daughter in person, pt's present via telehealth) Telemedicine: [email or web address] Video Visit: This telemedicine visit is conducted by audio and video technology between thepatient and provider. Informed consent was provided during e-check in and signed by patient. Patient was offered opportunity to ask any questions. Patient's Physical Location: Home Provider's Physical Location: Onsite at [facility] Participants in this Telemedicine Visit other [...] Department Care Team Description 11/24/2023 1:30 PM HOME HEALTH SPECIALIST Office Visit [facility] Cardiology Clinic [address] [address] Shahbaz Urias MD 701 [place] [address] [place] [address] Scheduled Discharge Disposition: Discharged to home or self care (routine discharge) 01/03/2024 3:00 PM CDT Telemedicine [facility] Sleep Center 701 [facility] [address] [place] [address] Trip Nieto MD 701 [place] [address] Scheduled Discharge Disposition: Discharged to home or [...]
--- OUTSIDE RECORDS SUMMARY | 2023-11-10 15:09 | XMS_ITS | Encounter Summary ---
Author Name Unknown Organization [facility] Address [address] [place] [address] Phone Care Team Providers Care Quality Control Microbiologist Name Role Phone Unavailable Primary Care Provider Unavailabl e Reason for Visit * Prior Authorization (Routine) - Closed Specialty Diagnoses / Procedures Referred By Contac t Referred To Contact Psych Rehab Diagnoses Bipolar II disorder () Trauma and stressor-related disorder Procedures MOTHER BABY ENROLLMENT Jazmine Potter, [facility] 701 [place] [address] [address] Referral ID Status Reason Start Date Expiration Date Visits Re quested Visits Authorized [id number] Closed 05/09/2023 06/24/2023 105 105 Encounter Details Date Type Department Care Team Description 06/01/2023 11:00 AM CDT [facility] [address] [place] [phone] Karoline Benson MD 701 [facility] [address] [place], [place] [address] Dh, Mother Baby Discharge Disposition: Discharged to [...] - 06/01/2023 11:00 AM CDT Dept: [facility] Type of Service: Group Therapy Provider/Group Soybean Grower: Kiana Borges RN Date of Service: 06/01/2023 Start Time: 11:15 AM Stop Time: 12:00 PM Number of Group Members Present: 5 Name of Group: Movement Location of Service: Face to Face at [facility] MANAGER COPY SERVICES PROVIDED (if applicable): No Session Content (Intervention) (including goal/intended outcome): Encouraged group members to participate in mind-body skills facilitated by [facility] Trauma- Informed Yoga [...] Department Care Team Description 11/24/2023 1:30 PM PATIENT CARE SECRETARY Office Visit [facility] Cardiology Clinic [address] [address] Shahbaz Urias MD 701 [facility] O5 [place] [address] Scheduled Discharge Disposition: Discharged to home or self care (routine discharge) 01/03/2024 3:00 PM CDT Telemedicine [facility] Sleep Center [address] [place] [address] Trip Nieto MD [address] [place] [address] Scheduled Discharge Disposition: Discharged to home or [...]
--- OUTSIDE RECORDS SUMMARY | 2023-11-10 15:09 | XMS_ITS | Encounter Summary ---
Author Name Unknown Organization [facility] Address [address] [place] [address] Phone Care Team Providers Care Director Speech Language Name Role Phone Unavailable Primary Care Provider Unavailabl e Reason for Visit * Reason Onset Date Comments Psych Medication Management 06/08/2023 Encounter Details Date Type Department Care Team Description 06/08/2023 11:30 AM CDT Psych Rehab [facility] [address] [place] [address] [phone] Karissa Mejia MD [address] [place] [address] [id number] Psych Medication Management Discharge Disposition: Discharged to [...] original note were not included. Mother Baby [facility], Psychiatry Visit Started the [facility] on: 05/09/23 Merry Rooney is a 23 y.o. mother of baby (Aidan born 05/03/23) and 2 year old son (Chuy). Referred by [facility] inpatient initially to the [facility]. Also admitted while she was in the program to [facility] ([place], [place]) 05/24-05/30/23. Cultural Context: white, Ukrainian and Lao Pronouns: she/her/hers; Supports: Espinosa -- supportive Therapist: ; PCP: ; OB-SEWER AND DRAIN TECHNICIAN: Antonio Ob; Venetian Blind Cleaner And Repairer: Feeding Method: mainly formula because milk supply [...] while she was in the program to [facility] ([place], [place]) 05/24- 05/30/23. Multiple, recent ED visits for physical sx of anxiety as well as SI - mainly to [place] ED (see 06/02/[address] Esposito for recent summary of ED courses). Diagnostic Impression(s) Bipolar II Disorder, current episode depressed, severe with psychotic symptoms PTSD and (Complex Developmental Trauma) Unspecified anxiety (intrusive thoughts) Opioid and alcohol use disorders, by history Multiple closed head injuries and hx of seizure preeclampsia Assessment Max, caring, resilient 23 y.o. mother of 2 following a harrowing course with psychotic symptoms and possible preeclampsia leading to transfer to [facility] ICU. Longitudinal course consistent with Complex Developmental Trauma and bipolar spectrum. Recent psychiatric admission (05/24- ) to [facility] and multiple, subsequent visits to [...] when she was 4. Mother lived in [place]. 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 Legal: no had involvement with the legal system. The patient reports the following spiritual and/or cultural history: Ukrainian and Lao background Relationship to her partner/father/co-parent of the [...] Department Care Team Description 11/24/2023 1:30 PM INTERNATIONAL MARKETING EXECUTIVE [facility] [address] [address] Shahbaz Urias MD 701 [facility] O5 [place] [address] Scheduled Discharge Disposition: Discharged to home or self care (routine discharge) 01/03/2024 3:00 PM CDT Telemedicine [facility] Sleep Center 701 [facility] [address] [place], [place] 159[address] Trip Nieto MD 701 [place], [place] [phone] Scheduled Discharge Disposition: Discharged to home or [...]
--- OUTSIDE RECORDS SUMMARY | 2023-11-10 15:09 | XMS_ITS | Encounter Summary ---
Author Name Unknown Organization [facility] Address [address] [place] [address] Phone Care Team Providers Care Coarse Wire Drawer Name Role Phone Unavailable Primary Care Provider Unavailabl e Reason for Visit * Prior Authorization (Routine) - Closed Specialty Diagnoses / Procedures Referred By Contac t Referred To Contact Psych Rehab Diagnoses Bipolar II disorder () Trauma and stressor-related disorder Procedures MOTHER BABY ENROLLMENT Jazmine Potter, [facility] [address] [place] [address] [address] Referral ID Status Reason Start Date Expiration Date Visits Re quested Visits Authorized [id number] Closed 05/09/2023 06/24/2023 105 105 Encounter Details Date Type Department Care Team Description 06/02/2023 1:45 PM CDT [facility] [address] [place] [address] [phone] Karoline Benson MD 701 [facility] S1 [address]60 [place], [place] [phone] Dh, Mother Baby Discharge Disposition: Discharged to [...] LPCC - 06/02/2023 1:45 PM CDT Dept: [facility] Type of Service: Group Therapy Name of Group: Psychoeducation/Skills Group Provider/Group Supervisor Communications And Signals: Claire Workman LPCC Date of Service: 06/02/2023 Start Time: 1:45 PM Stop Time: 2:30 PM Number of Group Members Present: 3 Location of Service: Face to Face at [facility] Session Content (Intervention): The purpose of [...] Department Care Team Description 11/24/2023 1:30 PM ESTIMATOR PRINTING [facility] [address] [address] Shahbaz Urias MD [address] [place], [place] [address] Scheduled Discharge Disposition: Discharged to home or self care (routine discharge) 01/03/2024 3:00 PM CDT Telemedicine [facility] Sleep Center [address] [place] [address] Trip Nieto MD [address] [place] [address] Scheduled Discharge Disposition: Discharged to home or [...]
--- OUTSIDE RECORDS SUMMARY | 2023-11-10 15:09 | XMS_ITS | Encounter Summary ---
Author Name Unknown Organization [facility] Address [address] [place] [address] Phone Care Team Providers Care Slasher Machine Operator Name Role Phone Unavailable Primary Care Provider Unavailabl e Encounter Details Date Type Department Care Team Description 06/02/2023 10:00 AM CDT Psych Rehab [facility] [address] [place] [address] Ray Esposito MD [address] [address] Discharge Disposition: Discharged to home or self [...] MD - 06/02/2023 10:00 AM CDT 06/02/2023 [facility] day hospital [facility] Medication follow-up Interim history - seen by this typewriter mechanic previously on 05/23/23 - and subsequently by on 06/01/23. After delivery of her baby girl on 05/03/23 had returned home - but had then experienced visual hallucinations. Her then called 911 and she was hospitalized in [place], [place]. While there her BP was very unstable and she had a seizure (imaging apparently demonstrated brain swelling and because of very elevated BP she was then airlifted to [facility] in [facility]. She was discharged home - then was seen on 05/23/23 ( [facility]) at which time she described worrisome symptoms which were felt to possibly represent akathesia. On a trial basis, Risperidone (even though in low dosage) was discontinued and prn Hydroxyzine substituted. However on 05/24/23 she became acutely paranoid and delusional - and was then transferred to [place], [place] ([facility]) - and stabilized there (on Olanzapine ) - eventually [place] on 05/30/23. Later on 06/01/23 she was again evaluated at the [facility] mother-baby clinic - by Karissa Mejia M.D. - who noted that patient had been again seen in a local urgent-care clinic (in [place], [place]) - where BP was elevated and [...] review. Today Merry is seen by this typewriter mechanic in the [facility]. All recent notes are reviewed. Fully [...] legs. However on formal evaluation by this typewriter mechanic today, there is no noticeable tremor and [...] dosage increases likely needed [facility] [place] - continue Lamictal titration (Guanfacine discontinued). - [...] Department Care Team Description 11/24/2023 1:30 PM PRODUCTION MACHINE COMPUTER OPERATOR Office [facility] [address] [place] [address] Shahbaz Urias MD [address] [place] [address] Scheduled Discharge Disposition: Discharged to home or self care (routine discharge) 01/03/2024 3:00 PM CDT Telemedicine [facility] Sleep Center [address] [place] [address] Trip Nieto MD 701 [place] [address] Scheduled Discharge Disposition: Discharged to home or self care (routine discharge) documented as of this encounter Visit Diagnoses Not on filedocumented in this encounter Additional Health Concerns Assessment Noted Time PHQ-9 Depression Total Score: 19 023 4:26 PM CDT PHQ-2 Depression Total Score: 3 06/02/20 23 4:26 PM CDT documented as of this encounter
--- OUTSIDE RECORDS SUMMARY | 2023-11-10 15:09 | XMS_ITS | Encounter Summary ---
Author Name Unknown Organization [facility] Address [address] [place] [address] Phone Care Team Providers Care Siene Maker Name Role Phone Unavailable Primary Care Provider Unavailabl e Reason for Visit * Reason Onset Date Comments Psych Medication Management 06/01/2023 * Prior Authorization (Routine) - Closed Specialty Diagnoses / Procedures Referred By Bernardo belle Referred To Contact Psych Rehab Diagnoses Bipolar II disorder () Trauma and stressor-related disorder Procedures MOTHER BABY ENROLLMENT Jazmine Potter, [facility] [address] [place] [address] [address] Referral ID Status Reason Start Date Expiration Date Visits Re quested Visits Authorized [id number] Closed 05/09/2023 06/24/2023 105 105 Encounter Details Date Type Department Care Team Description 06/01/2023 10:00 AM CDT [facility] [address] [place] [address] [phone] Karissa Mejia MD 701 [place], [place] [phone] Psych Medication Management Discharge Disposition: Discharged to [...] original note were not included. Mother Baby [facility], Psychiatry Visit Started the [facility] on: 05/09/23 Merry Rooney is a 23 y.o. mother of baby (Aidan born 05/03/23) and 2 year old son (Chuy). Referred by [facility] inpatient Cultural Context: white, Serbian and Hebrew Pronouns: she/her/hers; Supports: Espinosa -- supportive Therapist: ; PCP: ; OB-HAND FORMER HELPER: Antonio Ob; Director Industrial Relations: Feeding Method: breast and bottle feeding with [...] symptoms and possible preecl[facility] [place] [facility]. Longitudinal course consistent with Complex Developmental [...] individual and group therapy process in the [facility]. 6) Review old records. 7) Contact collateral [...] when she was 4. Mother lived in [place]. 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 Legal: no had involvement with the legal system. The patient reports the following spiritual and/or cultural history: Serbian and Hebrew background Relationship to her partner/father/co-parent of the [...] Department Care Team Description 11/24/2023 1:30 PM GYM SUPERVISOR Office [facility] [address] [address] Shahbaz Urias MD [address] [place] [address] Scheduled Discharge Disposition: Discharged to home or self care (routine discharge) 01/03/2024 3:00 PM CDT Telemedicine [facility] Sleep Center [address] [place] [address] Trip Nieto MD [address] [place] [address] Scheduled Discharge Disposition: Discharged to home or [...]
--- OUTSIDE RECORDS SUMMARY | 2023-11-10 15:09 | XMS_ITS | Encounter Summary ---
Author Name Unknown Organization [facility] Address [address] [place] [address] Phone Care Team Providers Care Spice Fumigator Name Role Phone Unavailable Primary Care Provider Unavailabl e Reason for Visit * Prior Authorization (Routine) - Closed Specialty Diagnoses / Procedures Referred By Contac t Referred To Contact Psych Rehab Diagnoses Bipolar II disorder () Trauma and stressor-related disorder Procedures MOTHER BABY ENROLLMENT Jazmine Potter, [facility] [address] [place] [address] [address] Referral ID Status Reason Start Date Expiration Date Visits Re quested Visits Authorized [id number] Closed 05/09/2023 06/24/2023 105 105 Encounter Details Date Type Department Care Team Description 06/07/2023 1:45 PM CDT Psych Rehab [facility] [address] [place] [address] [phone] Dh, Mother Baby Discharge Disposition: Discharged to [...] LPCC - 06/07/2023 1:45 PM CDT Dept: [facility] Type of Service: Group Therapy Name of Group: Psychoeducation/Skills Group Provider/Group Bat Boy/Girl: Claire Workman LPCC Date of Service: 06/07/2023 Start Time: 1:45 PM Stop Time: 2:30 PM Number of Group Members Present: 7 Location of Service: Face to Face at [facility] Session Content (Intervention): The purpose of this group was to provide education through information-sharing and facilitated group discussion. Handouts were provided and covered in detail. Skills taught today included: Parenting Education (describe [place] of Security Chapter 5) The patient???s response [...] Department Care Team Description 11/24/2023 1:30 PM BURNISHING MACHINE OPERATOR Office [facility] [address] [address] Shahbaz Urias MD [address] [place] [address] Scheduled Discharge Disposition: Discharged to home or self care (routine discharge) 01/03/2024 3:00 PM CDT Telemedicine [facility] Sleep Center [address] [place] [address] Trip Nieto MD [address] [place] [address] Scheduled Discharge Disposition: Discharged to home or [...]
--- OUTSIDE RECORDS SUMMARY | 2023-11-10 15:09 | XMS_ITS | Encounter Summary ---
Author Name Unknown Organization [facility] Address 701 [place] [address] Phone Care Team Providers Care Patient Advocate Name Role Phone Unavailable Primary Care Provider Unavailabl e Reason for Visit * Reason Comments Psych Medication Management Encounter Details Date Type Department Care Team Description 06/06/2023 10:00 AM CDT Psych Rehab [facility] 701 [place], [place] 109[address] Karoline Benson MD 701 [facility] S1 [address]60 [place], [place] [address] Psych Medication Management Discharge Disposition: Discharged to [...] original note were not included. Mother Baby [facility], Psychiatry Visit Started the [facility] on: 05/09/23 Merry Rooney is a 23 y.o. mother of baby (Aidan born 05/03/23) and 2 year old son (Chuy). Referred by [facility] inpatient initially to the [facility]. Also admitted while she was in the program to [facility] ([place], [place]) 05/24-05/30/23. Cultural Context: white, Setswana and Ukrainian Pronouns: she/her/hers; Supports: Jesús -- supportive Therapist: ; PCP: ; OB-IT PROFESSIONAL: Antonio Ob; Crossing Flagman: Feeding Method: mainly formula because milk supply [...] while she was in the program to [facility] ([place]) 05/24-05/30/23. 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 mother of 2 following a harrowing course with psychotic symptoms and possible preeclampsia leading to transfer to [facility] ICU. Longitudinal course consistent with Complex Developmental Trauma and bipolar spectrum. Feeling better now after recent psy chiatric admission (05/24-) to [facility] for increased SI, paranoia, and [...] individual and group therapy process in the [facility]. 6) Review old records. 7) [...] when she was 4. Mother lived in [place]. 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 Legal: no had involvement with the legal system. The patient reports the following spiritual and/or cultural history: Setswana and Ukrainian background Relationship to her partner/father/co-parent of the [...] Department Care Team Description 11/24/2023 1:30 PM PARKS RECREATION COORDINATOR Office [facility] [address] [address] Shahbaz Urias MD [address] [place] [address] O5 [place] [address] Scheduled Discharge Disposition: Discharged to home or self care (routine discharge) 01/03/2024 3:00 PM CDT Telemedicine [facility] Sleep Center [address] [place] [address] [address] [place] [address] Trip Nieto MD [address] [place] [address] Scheduled Discharge Disposition: Discharged to home or self care (routine discharge) documented as of this encounter Visit Diagnoses Not on filedocumented in this encounter Additional Health Concerns Assessment Noted Time PHQ-9 Depression Total Score: 19 023 4:26 PM CDT PHQ-2 Depression Total Score: 3 06/02/20 23 4:26 PM CDT documented as of this encounter
--- OUTSIDE RECORDS SUMMARY | 2023-11-10 15:09 | XMS_ITS | Encounter Summary ---
Author Name Unknown Organization [facility] Address [address] [place] [address] Phone Care Team Providers Care School Psychology Specialist Name Role Phone Unavailable Primary Care Provider Unavailabl e Reason for Visit * Prior Authorization (Routine) - Closed Specialty Diagnoses / Procedures Referred By Contac t Referred To Contact Psych Rehab Diagnoses Bipolar II disorder () Trauma and stressor-related disorder Procedures MOTHER BABY ENROLLMENT Jazmine Potter, [facility] [address] [place] [address] [address] Referral ID Status Reason Start Date Expiration Date Visits Re quested Visits Authorized [id number] Closed 05/09/2023 06/24/2023 105 105 Encounter Details Date Type Department Care Team Description 06/02/2023 12:30 PM CDT [facility] [address] [place] [address] [phone] Karoline Benson MD 701 [facility] S[address]60 [place], [place] [phone] Dh, Mother Baby Discharge Disposition: Discharged to [...] LPCC - 06/02/2023 12:30 PM CDT Dept: [facility] Type of Service: Group Therapy Name of Group: Psychoeducation/Skills Group Provider/Group Distribution Accounting Clerk: Claire Workman LPCC Date of Service: 06/02/2023 Start Time: 12:45 PM Stop Time: 1:30 PM Number of Group Members Present: 4 Location of Service: Face to Face at [facility] Session Content (Intervention): The purpose of this group was to provide education through information-sharing and facilitated group discussion. Handouts were provided and covered in detail. Skills taught today included: Parenting Education (describe [place] of Security Chapter 4) The patient???s response [...] Department Care Team Description 11/24/2023 1:30 PM DESK CLERK Office [facility] [address] [address] Shahbaz Urias MD [address] [place], [place] [address] Scheduled Discharge Disposition: Discharged to home or self care (routine discharge) 01/03/2024 3:00 PM CDT Telemedicine [facility] Sleep Center [address] [place] [address] Trip Nieto MD [address] [place] [address] Scheduled Discharge Disposition: Discharged to home or [...]
--- OUTSIDE RECORDS SUMMARY | 2023-11-10 15:09 | XMS_ITS | Encounter Summary ---
Author Name Unknown Organization [facility] Address [address] [place] [address] Phone Care Team Providers Care Phosphorus Processing Supervisor Name Role Phone Unavailable Primary Care Provider Unavailabl e Reason for Visit * Prior Authorization (Routine) - Closed Specialty Diagnoses / Procedures Referred By Contac t Referred To Contact Psych Rehab Diagnoses Bipolar II disorder () Trauma and stressor-related disorder Procedures MOTHER BABY ENROLLMENT Jazmine Potter, [facility] 701 [place] [address] [address] Referral ID Status Reason Start Date Expiration Date Visits Re quested Visits Authorized [id number] Closed 05/09/2023 06/24/2023 105 105 Encounter Details Date Type Department Care Team Description 06/06/2023 9:30 AM CDT [facility] [address] [place] [address] [phone] Karoline Benson MD 701 [facility] [address]60 [place], [place] [phone] Dh, Mother Baby Discharge Disposition: Discharged to [...] LICSW - 06/06/2023 9:30 AM CDT Dept: [facility] Type of Service: Group Therapy Name of Group: Psychoeducation/Skills Group Provider/Group Account Resolution Analyst: Jazmine Potter LICSW Date of Service: 06/06/2023 Start Time: 9:30 AM Stop Time: 10:15 AM Number of Group Members Present: 5 Location of Service: Face to Face at [facility] EVENT SECURITY OFFICER SERVICES PROVIDED (if applicable): No Session [...] Department Care Team Description 11/24/2023 1:30 PM SPOT WELDER LINE Office [facility] [address] [address] Shahbaz Urias MD 701 [facility] [address] [place] [address] Scheduled Discharge Disposition: Discharged to home or self care (routine discharge) 01/03/2024 3:00 PM CDT Telemedicine [facility] [address] [place] [address] Trip Nieto MD [address] [place] [address] Scheduled Discharge Disposition: Discharged to home or [...]
--- OUTSIDE RECORDS SUMMARY | 2023-11-10 15:09 | XMS_ITS | Encounter Summary ---
Author Name Unknown Organization [facility] Address [address] [place] [address] Phone Care Team Providers Care Oil Mixer Name Role Phone Unavailable Primary Care Provider Unavailabl e Reason for Visit * Prior Authorization (Routine) - Closed Specialty Diagnoses / Procedures Referred By Contac t Referred To Contact Psych Rehab Diagnoses Bipolar II disorder () Trauma and stressor-related disorder Procedures MOTHER BABY ENROLLMENT Jazmine Potter, [facility] [address] [place] [address] [address] Referral ID Status Reason Start Date Expiration Date Visits Re quested Visits Authorized [id number] Closed 05/09/2023 06/24/2023 105 105 Encounter Details Date Type Department Care Team Description 06/06/2023 12:30 PM CDT Psych Rehab [facility] [address] [place] [address] [phone] Karoline Benson MD 701 [facility] S1 860 [place], [place] [address]275 Dh, Mother Baby Discharge Disposition: Discharged to [...] OTR/L - 06/06/2023 12:30 PM CDT Dept: [facility] Type of Service: Group Therapy Name of Group: Wellness Group Provider/Group Bank Vault Clerk: Alisha Hardy OTR/L Date of Service: 06/06/2023 Start Time: 12:45 PM Stop Time: 1:30 PM Number of Group Members Present: 4 Location of Service: Face to Face at [facility] PRN PHYSICAL THERAPIST SERVICES PROVIDED (if applicable): No Session Content [...] Team Description 11/24/2023 1:30 PM DIGITAL MEDIA STRATEGIST [facility] [address] [place] [address] Shahbaz Urias MD [address] [place] [address] Scheduled Discharge Disposition: Discharged to home or self care (routine discharge) 01/03/2024 3:00 PM CDT Telemedicine [facility] [address] [place] [address] [place] [address] Trip Nieto MD 701 [place] [address] Scheduled Discharge Disposition: Discharged to home or [...]
--- OUTSIDE RECORDS SUMMARY | 2023-11-10 15:09 | XMS_ITS | Encounter Summary ---
Author Name Unknown Organization [facility] Address 701 [place] [address] Phone Care Team Providers Care Starting Sheet Tank Operator Name Role Phone Unavailable Primary Care Provider Unavailabl e Reason for Visit * Reason Onset Date Comments Mother Baby Documentation 06/08/2023 Encounter Details Date Type Department Care Team Description 06/08/2023 Telephone [facility] Family [facility] 701 [place], [place] [phone] Claire Workman [facility] [address] [facility] [place], [place] [phone] Mother Baby Documentation Social History Tobacco Use [...] Department Care Team Description 11/24/2023 1:30 PM COMPUTATIONAL PHYSICIST [facility] [address] [address] Shahbaz Urias MD [address] [place] [address] O5 [place] [address] Scheduled Discharge Disposition: Discharged to home or self care (routine discharge) 01/03/2024 3:00 PM CDT Telemedicine [facility] Sleep [facility] [address] [place] [address] [address] [place] [address] Trip Nieto MD [address] [place] [address] Scheduled Discharge Disposition: Discharged to home or self care (routine discharge) documented as of this encounter Visit Diagnoses Not on filedocumented in this encounter Additional Health Concerns Assessment Noted Time PHQ-9 Depression Total Score: 19 023 4:26 PM CDT PHQ-2 Depression Total Score: 3 06/02/20 23 4:26 PM CDT documented as of this encounter
--- OUTSIDE RECORDS SUMMARY | 2023-11-10 15:09 | XMS_ITS | Encounter Summary ---
Author Name Unknown Organization [facility] Address 701 [facility] [place] [address] Phone Care Team Providers Care Baffle Mounter Name Role Phone Unavailable Primary Care Provider Unavailabl e Reason for Visit * Reason Onset Date Comments Mother Baby - Mental Health Outreach 06/03/2023 Encounter Details Date Type Department Care Team Description 06/03/2023 Telephone [facility] 701 [place], [place] 112635 Claire Workman, [facility] 701 [facility] [place], [place] [phone] Mother Baby - Mental Health Outreach Social [...] Miscellaneous Notes * Telephone Encounter - Claire Workamn, [facility] - 06/03/2023 12:57 PM CDT Called pt [...] Department Care Team Description 11/24/2023 1:30 PM DELIVERY MAN [facility] [address] [address] Shahbaz Urias MD 701 [facility] O5 [place] [address] Scheduled Discharge Disposition: Discharged to home or self care (routine discharge) 01/03/2024 3:00 PM CDT Telemedicine [facility] 701 [facility] [address] [place] [address] Trip Nieto MD 701 [place] [address] Scheduled Discharge Disposition: Discharged to home or self care (routine discharge) documented as of this encounter Visit Diagnoses Not on filedocumented in this encounter Additional Health Concerns Assessment Noted Time PHQ-9 Depression Total Score: 19 023 4:26 PM CDT PHQ-2 Depression Total Score: 3 06/02/20 23 4:26 PM CDT documented as of this encounter
--- OUTSIDE RECORDS SUMMARY | 2023-11-10 15:09 | XMS_ITS | Encounter Summary ---
Author Name Unknown Organization [facility] Address [address] [place] [address] Phone Care Team Providers Care Agriculture Engineer Name Role Phone Unavailable Primary Care Provider Unavailabl e Reason for Visit * Prior Authorization (Routine) - Closed Specialty Diagnoses / Procedures Referred By Contac t Referred To Contact Psych Rehab Diagnoses Bipolar II disorder () Trauma and stressor-related disorder Procedures MOTHER BABY ENROLLMENT Jazmine Potter, [facility] 701 [place] [address] [address] Referral ID Status Reason Start Date Expiration Date Visits Re quested Visits Authorized [id number] Closed 05/09/2023 06/24/2023 105 105 Encounter Details Date Type Department Care Team Description 06/06/2023 11:00 AM CDT Psych Rehab [facility] [address] [place] [address] [phone] Karoline Benson MD 701 [facility] S1 860 [place], [place] [phone] Dh, Mother Baby Discharge Disposition: Discharged to [...] LICSW - 06/06/2023 11:00 AM CDT Dept: [facility] Type of Service: Group Therapy Name of Group: Psychoeducation/Skills Group Provider/Group Tents Assembler: Jazmine Potter LICSW Date of Service: 06/06/2023 Start Time: 11:15 AM Stop Time: 12:00 PM Number of Group Members Present: 4 Location of Service: Face to Face at [facility] SPAR MACHINE OPERATOR HELPER SERVICES PROVIDED (if applicable): No [...] Department Care Team Description 11/24/2023 1:30 PM MOBILE THERAPIST [facility] [address] [address] Shahbaz Urias MD [address] [place], [place] [phone] Scheduled Discharge Disposition: Discharged to home or self care (routine discharge) 01/03/2024 3:00 PM CDT Telemedicine [facility] [address] [place] [address] Trip Nieto MD [address] [place], [place] 85[address] Scheduled Discharge Disposition: Discharged to home or [...]
--- OUTSIDE RECORDS SUMMARY | 2023-11-10 15:10 | XMS_ITS | Encounter Summary ---
Author Name Unknown Organization [facility] Address [address] [place] [address] Phone Care Team Providers Care Automotive Airconditioning Mechanic Name Role Phone Unavailable Primary Care Provider Unavailabl e Reason for Visit * Reason Comments Mother Baby - Individual Psychotherapy * Prior Authorization (Routine) - Closed Specialty Diagnoses / Procedures Referred By Bernardo t Referred To Contact Psych Rehab Diagnoses Bipolar II disorder () Trauma and stressor-related disorder Procedures MOTHER BABY ENROLLMENT Jazmine Potter, [facility] [address] [place] [address] [address] Referral ID Status Reason Start Date Expiration Date Visits Re quested Visits Authorized [id number] Closed 05/09/2023 06/24/2023 105 105 Encounter Details Date Type Department Care Team Description 05/18/2023 2:30 PM CDT Psych Rehab [facility] [address] [place] [address] [phone] Claire Workman, [facility] [address] [place] [phone] Mother Baby - Individual Psychotherapy Discharge Disposition: [...] [facility] - 05/18/2023 2:30 PM CDT [facility] Progress Note Date of Service: 05/18/2023 Start Time: 2:30 pm Stop Time: 3 pm Location of Visit: Face to Face at [facility] Participants in this Visit other than the [...] Department Care Team Description 11/24/2023 1:30 PM BOARDING MACHINE OPERATOR Office [facility] [address] [phone] Shahbaz Urias MD 701 [facility] O5 [place] [address] Scheduled Discharge Disposition: Discharged to home or self care (routine discharge) 01/03/2024 3:00 PM CDT Telemedicine [facility] Sleep [facility] [address] [place] [address] Trip Nieto MD [address] [place] [address] Scheduled Discharge Disposition: Discharged to home or [...]
--- OUTSIDE RECORDS SUMMARY | 2023-11-10 15:10 | XMS_ITS | Encounter Summary ---
Author Name Unknown Organization [facility] Address 701 [place] [address] Phone Care Team Providers Care Creative Director Name Role Phone Unavailable Primary Care Provider Unavailabl e Reason for Visit * Reason Onset Date Comments Mother Baby - Mental Health Outreach 05/24/2023 Encounter Details Date Type Department Care Team Description 05/24/2023 Telephone [facility] Family [facility] 701 [place], [place] [phone] Jazmine Potter, HEAT SET OPERATOR 701 [place], [place] [phone] Mother Baby - Mental Health Outreach Social [...] Notes * Telephone Encounter - Jazmine Potter HEAT SET OPERATOR - 05/25/2023 9:55 AM CDT Business Process Lead spoke with patient who reported that [facility] was [facility]. Patient stated, all signs are pointing to psychosis. Endorsed increased paranoia since Tuesday evening and hearing whispers. Business Process Lead offered emotional support and ensured patient that [facility] is available upon discharge from the hospital. Patient expressed relief to hear this. Ensured that she is currently safe in ED and stated that she will be in touch with [facility] upon discharge to return to [facility]. documented in this encounter Plan of Treatment Upcoming Encounters Date Type Department Care Team Description 11/24/2023 1:30 PM DIRECTOR OF BUSINESS OPERATIONS Office [facility] [address] [address] Shahbaz Urias MD [address] [place] [address] Scheduled Discharge Disposition: Discharged to home or self care (routine discharge) 01/03/2024 3:00 PM CDT Telemedicine [facility] Sleep Center [address] [place], [place] 2[address]75 Trip Nieto MD 701 [place], [place] [phone] Scheduled Discharge Disposition: Discharged to home or self care (routine discharge) documented as of this encounter Visit Diagnoses Not on filedocumented in this encounter Additional Health Concerns Assessment Noted Time PHQ-9 Depression Total Score: 12 023 3:14 PM CDT PHQ-2 Depression Total Score: 2 05/18/20 23 3:14 PM CDT documented as of this encounter
--- OUTSIDE RECORDS SUMMARY | 2023-11-10 15:10 | XMS_ITS | Encounter Summary ---
Author Name Unknown Organization [facility]Note 3[facility] Address [address] [place] [address] Phone Care Team Providers Care Music Cataloguer Name Role Phone Unavailable Primary Care Provider Unavailabl e Reason for Visit * Reason Comments Blood Pressure Check Encounter Details Date Type Department Care Team Description 05/18/2023 Documentation Only [facility] Family [facility] 701 [place], [place] 6[address]385 Kiana Borges RN [facility] 701 [place] [address] Blood Pressure Check Social History Tobacco Use [...] Department Care Team Description 11/24/2023 1:30 PM DRYING ROOM SUPERVISOR Office [facility] [address] [address] Shahbaz Urias MD 701 [facility] [place]5 [place] [address] Scheduled Discharge Disposition: Discharged to home or self care (routine discharge) 01/03/2024 3:00 PM CDT Telemedicine [facility] 701 [facility] [address]8.220 [place], [place] [phone] Trip Nieto MD 701 [place] [address] Scheduled Discharge Disposition: Discharged to home or self care (routine discharge) documented as of this encounter Visit Diagnoses Not on filedocumented in this encounter Additional Health Concerns Assessment Noted Time PHQ-9 Depression Total Score: 12 023 3:14 PM CDT PHQ-2 Depression Total Score: 2 05/18/20 23 3:14 PM CDT documented as of this encounter
--- OUTSIDE RECORDS SUMMARY | 2023-11-10 15:10 | XMS_ITS | Encounter Summary ---
Author Name Unknown Organization [facility] Address [address] [place] [address] Phone Care Team Providers Care Marker Maker Name Role Phone Unavailable Primary Care Provider Unavailabl e Reason for Visit * Prior Authorization (Routine) - Closed Specialty Diagnoses / Procedures Referred By Contac t Referred To Contact Psych Rehab Diagnoses Bipolar II disorder () Trauma and stressor-related disorder Procedures MOTHER BABY ENROLLMENT Jazmine Potter, [facility] 701 [place] [address] [address] Referral ID Status Reason Start Date Expiration Date Visits Re quested Visits Authorized [id number] Closed 05/09/2023 06/24/2023 105 105 Encounter Details Date Type Department Care Team Description 05/17/2023 10:15 AM CDT Psych Rehab [facility] [address] [place] [address] [phone] Karoline Benson MD 701 [facility] S1 860 [place], [place] [phone] Dh, Mother Baby Discharge Disposition: Discharged to [...] LICSW - 05/17/2023 10:15 AM CDT Dept: [facility] Type of Service: Group Therapy Name of Group: Psychotherapy Process Group Provider/Group Doughnut Maker: Jazmine Potter LICSW Date of Service: 05/17/2023 Start Time: 10:15 AM Stop Time: 11:00 AM Number of Group Members Present: 7 Location of Service: Face to Face at [facility] PRESSER AND SHAPER KNITTED GOODS SERVICES PROVIDED (if applicable): No Session Content [...] Department Care Team Description 11/24/2023 1:30 PM ROCK BREAKER Office [facility] [address] [address] Shahbaz Urias MD 701 [facility] [place], [place] [address] Scheduled Discharge Disposition: Discharged to home or self care (routine discharge) 01/03/2024 3:00 PM CDT Telemedicine [facility] Sleep Center 701 [facility] G[address].220 [place], [place] 8[address]255 Trip Nieto MD 701 [place], [place] [phone] Scheduled Discharge Disposition: Discharged to home or [...]
--- OUTSIDE RECORDS SUMMARY | 2023-11-10 15:10 | XMS_ITS | Encounter Summary ---
Author Name Unknown Organization [facility] Address 701 [place] [address] Phone Care Team Providers Care Auditor Appraiser Name Role Phone Unavailable Primary Care Provider Unavailabl e Reason for Visit * Reason Comments Psych Medication Management Encounter Details Date Type Department Care Team Description 05/16/2023 2:30 PM CDT Psych Rehab [facility] 701 [place], [place] [phone] Karoline Benson MD 701 [facility] S1 860 [place], [place] [phone] Psych Medication Management Discharge Disposition: Discharged to [...] Progress Notes * Karoline Benson MD - 05/16/2023 2:30 PM CDT Images from the original note were not included. Mother Baby [facility], Psychiatry Visit Started the Day [facility] on: 05/09/23 Merry Rooney is a 22 y.o. mother of baby (Latha b. 05/03/23) and 2 year old son (Chuy). Referred by [facility] Cultural Context: white, Emir[place] and [place]an Pronouns: she/her/hers; Supports: Jesús -- supportive Therapist: ; PCP: ; OB-BUGGY OPERATOR: Antonio Ob; Tenant Coordinator: Feeding Method: breast and bottle feeding with [...] symptoms and possible preeclampsia leading to transferto [facility] ICU. Seen by psychiatry (Dr Ortiz) at [place], discontinued from her sertraline and started on [...] individual and group therapy process in the [facility]. 6) Review old records. 7) Contact collateral [...] she was 4. Mother lived in [place]. 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 Legal: no had involvement with the legal system. The patient reports the following spiritual and/or cultural history: Emir[place] and [place] background Relationship to her partner/father/co-parent of the [...] Adequate PROVIDER: Karoline Benson MD Time In: 2:30PM Time Out: 3PM Total time spent on this encounter, on the date of service, including pre-visit review of separately obtained history, patient counseling/education, interpretation of diagnostic results, care coordination and documentation was 35 minutes. documented in this encounter Miscellaneous Notes * Addendum Note - Karoline Benson MD - 05/16/2023 2:30 PM CDTAddended by: KAROLINE BENSON on: 05/17/2023 10:47 AM Modules accepted: Orders * Addendum Note - Karoline Benson MD - 05/16/2023 2:30 PM CDTAddended by: KAROLINE BENSON on: 05/17/2023 05:32 PM Modules accepted: Orders documented in this encounter Plan of Treatment Upcoming Encounters Date Type Department Care Team Description 11/24/2023 1:30 PM COMMUNICATIONS SCIENTIST Office [facility] [address] [phone] Shahbaz Urias MD 701 [facility] O5 [place] [address] Scheduled Discharge Disposition: Discharged to home or self care (routine discharge) 01/03/2024 3:00 PM CDT Telemedicine [facility] [address] [place] [address] Trip Niteo MD [address] [place] [address] Scheduled Discharge Disposition: Discharged to home or self care (routine discharge) documented as of this encounter Visit Diagnoses Not on filedocumented in this encounter Additional Health Concerns Assessment Noted Time PHQ-9 Depression Total Score: 12 023 3:56 PM CDT PHQ-2 Depression Total Score: 1 05/11/20 23 3:56 PM CDT documented as of this encounter
--- OUTSIDE RECORDS SUMMARY | 2023-11-10 15:10 | XMS_ITS | Encounter Summary ---
Author Name Unknown Organization [facility] Address [address] [place] [address] Phone Care Team Providers Care Receiving Barn Custodian Name Role Phone Unavailable Primary Care Provider Unavailabl e Encounter Details Date Type Department Care Team Description 05/23/2023 10:00 AM CDT Psych Rehab [facility] [address] [place] [address] Ray Esposito MD [address] [address] Discharge Disposition: Discharged to home or self [...] - 05/23/2023 10:00 AM CDT 05/23/2023 [facility] mother-baby day [facility] ([facility]) Medication follow-up. Patient seen in-person today. Medical records reviewed (Epic). Recent clinical status discussed with therapy staff. Start time: 10:00 a.m. Finish time: 10:30 a.m. Interviewed in-person in [facility] today. Seen together with her baby [...] (prescription called in to [facility] in [place]) - continue Guanfacine (and Nifedipine basically on a prn basis). Ray Esposito M.D. documented in this encounter Miscellaneous Notes * Group Note - Jazmine Potter LICSW - 05/23/2023 10:00 AM CDT Dept: [facility] Type of Service: Group Therapy Name of Group: Psychoeducation/Skills Group Provider/Group Brine Mixer Operator: Jazmine Potter LICSW Date of Service: 05/23/2023 Start Time: 9:30 AM Stop Time: 10:15 AM Number of Group Members Present: 5 Location of Service: Face to Face at [facility] MATERIAL CONTROL SUPERVISOR SERVICES PROVIDED (if applicable): No Session [...] Department Care Team Description 11/24/2023 1:30 PM TRANSIT BUS OPERATOR Office [facility] [address] [place] [address] Shahbaz Urias MD 701 [facility] O5 [place], [place] [phone] Scheduled Discharge Disposition: Discharged to home or self care (routine discharge) 01/03/2024 3:00 PM CDT Telemedicine [facility] Sleep Center 701 [facility] G8.220 [place], [place] [address] Trip Nieto MD 701 [place] [address] Scheduled Discharge Disposition: Discharged to home or [...]
--- OUTSIDE RECORDS SUMMARY | 2023-11-10 15:10 | XMS_ITS | Encounter Summary ---
Author Name Unknown Organization [facility] Address [address] [place] [address] Phone Care Team Providers Care Wheat Cleaner Name Role Phone Unavailable Primary Care Provider Unavailabl e Encounter Details Date Type Department Care Team Description 05/19/2023 12:00 PM CDT Psych Rehab [facility] [address] [place] [address] [phone] Ray Esposito MD [address] [address] Discharge Disposition: Discharged to home or self [...] 12:00 PM CDT Not seen by this proposal lead writer in [facility] today. documented in this encounter Plan of Treatment Upcoming Encounters Date Type Department Care Team Description 11/24/2023 1:30 PM SOFTWARE DEVELOPMENT COORDINATOR Office [facility] [address] [place] [address] Shahbaz Urias MD [address] [place] [address] Scheduled Discharge Disposition: Discharged to home or self care (routine discharge) 01/03/2024 3:00 PM CDT Telemedicine [facility] [address] [employer], [place] [address] Trip Nieto MD 701 [place] [address] Scheduled Discharge Disposition: Discharged to home or self care (routine discharge) documented as of this encounter Visit Diagnoses Not on filedocumented in this encounter Additional Health Concerns Assessment Noted Time PHQ-9 Depression Total Score: 12 023 3:14 PM CDT PHQ-2 Depression Total Score: 2 05/18/20 23 3:14 PM CDT documented as of this encounter
--- OUTSIDE RECORDS SUMMARY | 2023-11-10 15:10 | XMS_ITS | Encounter Summary ---
Author Name Unknown Organization [facility] Address [address] [place] [address] Phone Care Team Providers Care Independent Driver Name Role Phone Unavailable Primary Care Provider Unavailabl e Reason for Visit * Reason Onset Date Comments Psych Medication Management 05/18/2023 Encounter Details Date Type Department Care Team Description 05/18/2023 11:00 AM CDT Psych Rehab [facility] [address] [place] [address] [phone] Karissa Mejia MD [address] [place] [address] [phone] Psych Medication Management Discharge Disposition: Discharged to [...] 2 year old son (Chuy). Referred by [facility] inpatient Cultural Context: white, Pashto and Citizen Of [place] Pronouns: she/her/hers; Supports: Espin[place] -- supportive Therapist: ; PCP: ; OB-CAPTAIN ROOM SERVICE: Antonio Ob; Grants Administrator: Feeding Method: breast and bottle feeding [...] possible pr eeclampsia leading to transfer to [facility] ICU. Seen by psychiatry (Dr Ortiz) at [facility], discontinued from her sertraline and started on [...] formula) 3) LABS: Will review labs in [facility] 4) Continue to monitor symptoms 5) Engage patient in individual and group therapy process in the [facility]. 6) Review old records. 7) Contact [...] when she was 4. Mother lived in [place]. 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 Legal: no had involvement with the legal system. The patient reports the following spiritual and/or cultural history: Pashto and Citizen Of [place] background Relationship to her partner/father/co-parent of the [...] Department Care Team Description 11/24/2023 1:30 PM RETAIL ACCOUNT SPECIALIST [facility] [address] [address] Shahbaz Urias MD [address] [place] [address] Scheduled Discharge Disposition: Discharged to home or self care (routine discharge) 01/03/2024 3:00 PM CDT Telemedicine [facility] Sleep Center [address] [place], [place] [phone] Trip Nieto MD [address] [place] [address] Scheduled Discharge Disposition: Discharged to home or [...]
--- OUTSIDE RECORDS SUMMARY | 2023-11-10 15:10 | XMS_ITS | Encounter Summary ---
Author Name Unknown Organization [facility] Address [address] [place] [address] Phone Care Team Providers Care Transport Corps Officer Name Role Phone Unavailable Primary Care Provider Unavailabl e Reason for Visit * Prior Authorization (Routine) - Closed Specialty Diagnoses / Procedures Referred By Contac t Referred To Contact Psych Rehab Diagnoses Bipolar II disorder () Trauma and stressor-related disorder Procedures MOTHER BABY ENROLLMENT Jazmine Potter, [facility] [address] [place] [address] [address] Referral ID Status Reason Start Date Expiration Date Visits Re quested Visits Authorized [id number] Closed 05/09/2023 06/24/2023 105 105 Encounter Details Date Type Department Care Team Description 05/23/2023 1:45 PM CDT [facility] [address] [place] [address] [phone] Karoline Benson MD 701 [facility] S1 [phone] Dh, Mother Baby Discharge Disposition: Discharged to [...] LICSW - 05/23/2023 1:45 PM CDT Dept: [facility] Type of Service: Group Therapy Name of Group: Psychoeducation/Skills Group Provider/Group Dental Internship: Jazmine Potter LICSW Date of Service: 05/23/2023 Start Time: 1:45 PM Stop Time: 2:30 PM Number of Group Members Present: 5 Location of Service: Face to Face at [facility] ABSTRACTOR SERVICES PROVIDED (if applicable): No Session Content [...] Department Care Team Description 11/24/2023 1:30 PM HEEL VARNISHER [facility] [address] [phone] Shahbaz Urias MD [address] [address] Scheduled Discharge Disposition: Discharged to home or self care (routine discharge) 01/03/2024 3:00 PM CDT Telemedicine [facility] [address] [place] [address] Trip Nieto MD [address] [address] Scheduled Discharge Disposition: Discharged to home or [...]
--- OUTSIDE RECORDS SUMMARY | 2023-11-10 15:10 | XMS_ITS | Encounter Summary ---
Author Name Unknown Organization [facility] Address [address] [place] [address] Phone Care Team Providers Care Welder Setter Electron Beam Machine Name Role Phone Unavailable Primary Care Provider Unavailabl e Reason for Visit * Prior Authorization (Routine) - Closed Specialty Diagnoses / Procedures Referred By Contac t Referred To Contact Psych Rehab Diagnoses Bipolar II disorder () Trauma and stressor-related disorder Procedures MOTHER BABY ENROLLMENT Jazmine Potter, [facility] 701 [place] [address] [address] Referral ID Status Reason Start Date Expiration Date Visits Re quested Visits Authorized [id number] Closed 05/09/2023 06/24/2023 105 105 Encounter Details Date Type Department Care Team Description 05/18/2023 10:15 AM CDT [facility] [address] [place] [address] [phone] Karoline Benson MD 701 [facility] S1 [address]60 [place], [place] [phone] Dh, Mother Baby Discharge Disposition: Discharged to [...] LPCC - 05/18/2023 10:15 AM CDT Dept: [facility] Type of Service: Group Therapy Name of Group: Psychotherapy Process Group Provider/Group Print Line Operator: Claire Workman LPCC Date of Service: 05/18/2023 Start Time: 10:15 AM Stop Time: 11:00 AM Number of Group Members Present: 5 Location of Service: Face to Face at [facility] Session Content of Today's Group: At the [...] Department Care Team Description 11/24/2023 1:30 PM CANAL SUPERINTENDENT [facility] [address] [address] Shahbaz Urias MD [address] [place] [address] [address] [place] [address] Scheduled Discharge Disposition: Discharged to home or self care (routine discharge) 01/03/2024 3:00 PM CDT Telemedicine [facility] Sleep Center 701 [facility] [address]8.220 [place] [address] Trip Nieto MD [address] [place] [address] Scheduled Discharge Disposition: Discharged to home or [...]
--- OUTSIDE RECORDS SUMMARY | 2023-11-10 15:10 | XMS_ITS | Encounter Summary ---
Author Name Unknown Organization [facility] Address [address] [place] [address] Phone Care Team Providers Care Sled Maker Name Role Phone Unavailable Primary Care Provider Unavailabl e Reason for Visit * Prior Authorization (Routine) - Closed Specialty Diagnoses / Procedures Referred By Contac t Referred To Contact Psych Rehab Diagnoses Bipolar II disorder () Trauma and stressor-related disorder Procedures MOTHER BABY ENROLLMENT Jazmine Potter, [facility] [address] [place] [address] [address] Referral ID Status Reason Start Date Expiration Date Visits Re quested Visits Authorized [id number] Closed 05/09/2023 06/24/2023 105 105 Encounter Details Date Type Department Care Team Description 05/23/2023 12:30 PM CDT [facility] [address] [place] [address] [phone] Karoline Benson MD 701 [facility] S1 860 [place], [place] [phone] Dh, Mother Baby Discharge Disposition: Discharged to [...] RN - 05/23/2023 12:30 PM CDT Dept: [facility] Type of Service: Group Therapy Provider/Group Electric System Operator: Kiana Borges RN Date of Service: 05/23/2023 Start Time: 12:45 PM Stop Time: 1:30 PM Number of Group Members Present: 6 Name of Group: Psycho education Location of Service: Face to Face at [facility] MEDICAL AND HEALTH SERVICES MANAGER SERVICES PROVIDED (if applicable): No Session Content of Today's Group (including goal/intended outcome): Medications. The patient's response to the intervention: Kiana Borges RN Name of Group: Psycho education Location of Service: Face to Face at [facility] MEDICAL AND HEALTH SERVICES MANAGER SERVICES PROVIDED (if applicable): No Session [...] present with her. P: To continue with [facility]. Encourage follow up in psychotherapy group regarding any outstanding issues. Observations of Individual Group Member: the patient arrived to group on time and remained the entire 45-minute session. Appeared alert and attentive to material presented and group members. Kiana Borges RN, 05/23/2023 3:16 PM documented in this encounter Plan of Treatment Upcoming Encounters Date Type Department Care Team Description 11/24/2023 1:30 PM SUBSTATION MANAGER Office [facility] [address] [address] Shahbaz Urias MD 701 [facility] O5 [place] [address] Scheduled Discharge Disposition: Discharged to home or self care (routine discharge) 01/03/2024 3:00 PM CDT Telemedicine [facility] [address] [place] [address] Trip Nieto MD [address] [place], [place] 147545 Scheduled Discharge Disposition: Discharged to home or [...]
--- OUTSIDE RECORDS SUMMARY | 2023-11-10 15:10 | XMS_ITS | Encounter Summary ---
Author Name Unknown Organization [facility] Address [address] [place] [address] Phone Care Team Providers Care Publication Specialist Name Role Phone Unavailable Primary Care Provider Unavailabl e Reason for Visit * Prior Authorization (Routine) - Closed Specialty Diagnoses / Procedures Referred By Contac t Referred To Contact Psych Rehab Diagnoses Bipolar II disorder () Trauma and stressor-related disorder Procedures MOTHER BABY ENROLLMENT Jazmine Potter, [facility] 701 [place] [address] [address] Referral ID Status Reason Start Date Expiration Date Visits Re quested Visits Authorized [id number] Closed 05/09/2023 06/24/2023 105 105 Encounter Details Date Type Department Care Team Description 05/17/2023 11:00 AM CDT [facility] [address] [place] [address] [phone] Karoline Benson MD 701 [facility] S1 860 [place], [place] [phone] Dh, Mother Baby Discharge Disposition: Discharged to [...] PT - 05/17/2023 11:00 AM CDT Dept: [facility] Type of Service: Group Therapy Provider/Group Melter Supervisor Oxygen Furnace: Sara Cunha PT Date of Service: 05/17/2023 Start Time: 11:00 AM Stop Time: 12:00 PM Number of Group Members Present: 4 Name of Group: Movement Location of Service: Face to Face at a [facility] CRM MARKETING MANAGER SERVICES PROVIDED (if applicable): No Session Content (Intervention) (including goal/intended outcome): Mindful Movement. Encouraged group members to participate in mind-body skills facilitated by [facility] Trauma-Informed Yoga providers. Trauma-sensitive mind-body skills and [...] Department Care Team Description 11/24/2023 1:30 PM SENIOR CREDIT ANALYST Office [facility] [address] [address] Shahbaz Urias MD [address] [place], [place] [phone] Scheduled Discharge Disposition: Discharged to home or self care (routine discharge) 01/03/2024 3:00 PM CDT Telemedicine [facility] Sleep Center [address] [place], [place] 467155 Trip Nieto MD [address] [place] [address] Scheduled Discharge Disposition: Discharged to home or [...]
--- OUTSIDE RECORDS SUMMARY | 2023-11-10 15:10 | XMS_ITS | Encounter Summary ---
Author Name Unknown Organization [facility] Address [address] [place] [address] Phone Care Team Providers Care Sock Boarder Name Role Phone Unavailable Primary Care Provider Unavailabl e Reason for Visit * Reason Comments Blood Pressure Check Encounter Details Date Type Department Care Team Description 05/23/2023 Documentation Only [facility] [address] [place] [address] [phone] Kiana Borges RN [facility] 701 [place] [address] Blood Pressure Check Social History Tobacco Use [...] Care Team Description 11/24/2023 1:30 PM HUMAN SERVICES INSTRUCTOR Office [facility] [address] [address] Shahbaz Urias MD 701 [facility] O5 [place], [place] [phone] Scheduled Discharge Disposition: Discharged to home or self care (routine discharge) 01/03/2024 3:00 PM CDT Telemedicine [facility] Sleep [facility] 701 [facility] [address].220 [place], [place] 421715 Trip Nieto MD 701 [place], [place] [phone] Scheduled Discharge Disposition: Discharged to home or self care (routine discharge) documented as of this encounter Visit Diagnoses Not on filedocumented in this encounter Additional Health Concerns Assessment Noted Time PHQ-9 Depression Total Score: 12 023 3:14 PM CDT PHQ-2 Depression Total Score: 2 05/18/20 23 3:14 PM CDT documented as of this encounter
--- OUTSIDE RECORDS SUMMARY | 2023-11-10 15:10 | XMS_ITS | Encounter Summary ---
Author Name Unknown Organization [facility] Address [address] [place] [address] Phone Care Team Providers Care Tankage Grinder Operator Name Role Phone Unavailable Primary Care Provider Unavailabl e Reason for Visit * Prior Authorization (Routine) - Closed Specialty Diagnoses / Procedures Referred By Contac t Referred To Contact Psych Rehab Diagnoses Bipolar II disorder () Trauma and stressor-related disorder Procedures MOTHER BABY ENROLLMENT Jazmine [place], [facility] 701 [place] [address] [address] Referral ID Status Reason Start Date Expiration Date Visits Re quested Visits Authorized [id number] Closed 05/09/2023 06/24/2023 105 105 Encounter Details Date Type Department Care Team Description 05/19/2023 10:15 AM CDT [facility] [address] [place] [address] [phone] Karoline Benson MD 701 [facility] S1 860 [place], [place] [phone] Dh, Mother Baby Discharge Disposition: Discharged to [...] LPCC - 05/19/2023 10:15 AM CDT Dept: [facility] Type of Service: Group Therapy Name of Group: Psychotherapy Process Group Provider/Group Mechanical Oxidizer: Claire Workman LPCC Date of Service: 05/19/2023 Start Time: 10:15 AM Stop Time: 11:00 AM Number of Group Members Present: 5 Location of Service: Face to Face at [facility] Session Content of Today's Group: At [...] 2. Trauma and stressor-related disorder Claire Workman [facility], 05/19/2023 3:34 PM documented in this encounter Plan of Treatment Upcoming Encounters Date Type Department Care Team Description 11/24/2023 1:30 PM FAMILY PHYSICIAN Office [facility] [address] [address] Shahbaz Urias MD 701 [facility] O5 [place] [address] Scheduled Discharge Disposition: Discharged to home or self care (routine discharge) 01/03/2024 3:00 PM CDT Telemedicine [facility] Sleep Center 701 [facility] G8.220 [place] [address] Trip Nieto MD 701 [place], [place] 763215 Scheduled Discharge Disposition: Discharged to home or [...]
--- OUTSIDE RECORDS SUMMARY | 2023-11-10 15:10 | XMS_ITS | Encounter Summary ---
Author Name Unknown Organization [facility] Address 701 [place] [address] Phone Care Team Providers Care Sergeant At Arms Name Role Phone Unavailable Primary Care Provider Unavailabl e Reason for Visit * Reason Onset Date Comments Follow-up 05/27/2023 Encounter Details Date Type Department Care Team Description 05/27/2023 Telephone [facility] 701 [place], [place] [phone] Kiana Borges RN [facility] 701 [place] [address] Follow-up Social History Tobacco Use Types Packs/Day [...] staff that she has been hospitalized in [place] at [facility]. Pt stated They have stated I have [...] Department Care Team Description 11/24/2023 1:30 PM CATHEAD OPERATOR Office [facility] [address] [address] Shahbaz Urias MD 701 [facility] O5 [place] [address] Scheduled Discharge Disposition: Discharged to home or self care (routine discharge) 01/03/2024 3:00 PM CDT Telemedicine [facility] Sleep Center [address] [facility] G8.220 [place], [place] 433335 Trip Nieto MD 701 [place] [address] Scheduled Discharge Disposition: Discharged to home or self care (routine discharge) documented as of this encounter Visit Diagnoses Not on filedocumented in this encounter Additional Health Concerns Assessment Noted Time PHQ-9 Depression Total Score: 12 023 3:14 PM CDT PHQ-2 Depression Total Score: 2 05/18/20 23 3:14 PM CDT documented as of this encounter
--- OUTSIDE RECORDS SUMMARY | 2023-11-10 15:10 | XMS_ITS | Encounter Summary ---
Author Name Unknown Organization [facility] Address [address] [place] [address] Phone Care Team Providers Care Motor Block Mechanic Name Role Phone Unavailable Primary Care Provider Unavailabl e Reason for Visit * Prior Authorization (Routine) - Closed Specialty Diagnoses / Procedures Referred By Contac t Referred To Contact Psych Rehab Diagnoses Bipolar II disorder () Trauma and stressor-related disorder Procedures MOTHER BABY ENROLLMENT Jazmine [place], [facility] [address] [place] [address] [address] Referral ID Status Reason Start Date Expiration Date Visits Re quested Visits Authorized [id number] Closed 05/09/2023 06/24/2023 105 105 Encounter Details Date Type Department Care Team Description 05/18/2023 12:30 PM CDT [facility] [address] [place] [address] [phone] Karoline Benson MD 701 [facility] S1 860 [place], [place] [phone] Dh, Mother Baby Discharge Disposition: Discharged to [...] OTR/L - 05/18/2023 12:30 PM CDT Dept: [facility] Type of Service: Group Therapy Name of Group: Wellness Group Provider/Group Icer Machine Operator: Alisha Hardy OTR/L Date of Service: 05/18/2023 Start Time: 12:45 PM Stop Time: 1:30 PM Number of Group Members Present: 6 Location of Service: Face to Face at [facility] INSERTER PROMOTIONAL ITEM SERVICES PROVIDED (if applicable): No Session Content [...] Department Care Team Description 11/24/2023 1:30 PM PHOTORESIST PRINTER [facility] [address] [address] Shahbaz Urias MD [address] [place] [address] Scheduled Discharge Disposition: Discharged to home or self care (routine discharge) 01/03/2024 3:00 PM CDT Telemedicine [facility] 701 [facility] G8.220 [place] [address] Trip Nieto MD 701 [place] [address] Scheduled Discharge Disposition: Discharged to home or [...]
--- OUTSIDE RECORDS SUMMARY | 2023-11-10 15:10 | XMS_ITS | Encounter Summary ---
Author Name Unknown Organization [facility] Address [address] [place] [address] Phone Care Team Providers Care Jig Inspector Name Role Phone Unavailable Primary Care Provider Unavailabl e Reason for Visit * Prior Authorization (Routine) - Closed Specialty Diagnoses / Procedures Referred By Contac t Referred To Contact Psych Rehab Diagnoses Bipolar II disorder () Trauma and stressor-related disorder Procedures MOTHER BABY ENROLLMENT Jazmine [place], [facility] [address] [place] [address] [address] Referral ID Status Reason Start Date Expiration Date Visits Re quested Visits Authorized [id number] Closed 05/09/2023 06/24/2023 105 105 Encounter Details Date Type Department Care Team Description 05/18/2023 1:45 PM CDT [facility] [address] [place] [address] 857005 Karoline Benson MD 701 [facility] S1 860 [place], [place] [phone] Dh, Mother Baby Discharge Disposition: Discharged to [...] LICSW - 05/18/2023 1:45 PM CDT Dept: [facility] Type of Service: Group Therapy Name of Group: Psychoeducation/Skills Group Provider/Group Brand Attendant: Jazmine Potter LICSW Date of Service: 05/18/2023 Start Time: 1:45 PM Stop Time: 2:30 PM Number of Group Members Present: 5 Location of Service: Face to Face at [facility] CHESS INSTRUCTOR SERVICES PROVIDED (if applicable): No Session [...] Department Care Team Description 11/24/2023 1:30 PM ASSEMBLY LEADER [facility] [address] [address] Shahbaz Urias MD 701 [facility] O5 [place] [address] Scheduled Discharge Disposition: Discharged to home or self care (routine discharge) 01/03/2024 3:00 PM CDT Telemedicine [facility] Sleep Center [address] [place] [address] Trip Nieto MD [address] [place] [address] Scheduled Discharge Disposition: Discharged to home or [...]
--- OUTSIDE RECORDS SUMMARY | 2023-11-10 15:10 | XMS_ITS | Encounter Summary ---
Author Name Unknown Organization [facility] Address [address] [place] [address] Phone Care Team Providers Care Educational Therapy Teacher Name Role Phone Unavailable Primary Care Provider Unavailabl e Reason for Visit * Prior Authorization (Routine) - Closed Specialty Diagnoses / Procedures Referred By Contac t Referred To Contact Psych Rehab Diagnoses Bipolar II disorder () Trauma and stressor-related disorder Procedures MOTHER BABY ENROLLMENT Jazmine Potter, [facility] 701 [place] [address] [address] Referral ID Status Reason Start Date Expiration Date Visits Re quested Visits Authorized [id number] Closed 05/09/2023 06/24/2023 105 105 Encounter Details Date Type Department Care Team Description 05/19/2023 1:30 PM CDT [facility] [address] [place] [address] [phone] Karoline Benson MD 701 [facility] S1 860 [place], [place] 568[address] Dh, Mother Baby Discharge Disposition: Discharged to [...] LPCC - 05/19/2023 1:30 PM CDT Dept: [facility] Type of Service: Group Therapy Name of Group: Psychoeducation/Skills Group Provider/Group Email Specialist: Claire Workman LPCC Date of Service: [...] Department Care Team Description 11/24/2023 1:30 PM RADIOLOGY TECHNICIAN [facility] [address] [address] Shahbaz Urias MD [address] [place], [place] 5975[address] Scheduled Discharge Disposition: Discharged to home or self care (routine discharge) 01/03/2024 3:00 PM CDT Telemedicine [facility] Sleep Center [address] [place] [address] Trip Nieto MD [address] [place] [address] Scheduled Discharge Disposition: Discharged to home or [...]
--- OUTSIDE RECORDS SUMMARY | 2023-11-10 15:10 | XMS_ITS | Encounter Summary ---
Author Name Unknown Organization [facility] Address [address] [place] [address] Phone Care Team Providers Care Coding Coordinator Name Role Phone Unavailable Primary Care Provider Unavailabl e Reason for Visit * Prior Authorization (Routine) - Closed Specialty Diagnoses / Procedures Referred By Contac t Referred To Contact Psych Rehab Diagnoses Bipolar II disorder () Trauma and stressor-related disorder Procedures MOTHER BABY ENROLLMENT Jazmine Potter, [facility] [address] [place] [address] [address] Referral ID Status Reason Start Date Expiration Date Visits Re quested Visits Authorized [id number] Closed 05/09/2023 06/24/2023 105 105 Encounter Details Date Type Department Care Team Description 05/19/2023 12:30 PM CDT Psych [facility] [address] [place] [address] [phone] Karoline Benson MD 701 [facility] S[address]60 [place], [place] [phone] Dh, Mother Baby Discharge Disposition: Discharged to [...] LPCC - 05/19/2023 12:30 PM CDT Dept: [facility] Type of Service: Group Therapy Name of Group: Psychoeducation/Skills Group Provider/Group Roving Machine Operator: Claire Workman LPCC Date of Service: 05/19/2023 Start Time: 12:45 PM Stop Time: 1:30 PM Number of Group Members Present: 5 Location of Service: Face to Face at [facility] Session Content (Intervention): The purpose of this group was to provide education through information-sharing and facilitated group discussion. Handouts were provided and covered in detail. Skills taught today included: Parenting Education (describe [place] of Security Chapters 1 and 2) The [...] Care Team Description 11/24/2023 1:30 PM SENIOR ANALYST [facility] [address] [address] Shahbaz Urias MD [address] [place], [place] [address] Scheduled Discharge Disposition: Discharged to home or self care (routine discharge) 01/03/2024 3:00 PM CDT Telemedicine [facility] Sleep Center [address] [place] [address] Trip Nieto MD 701 [place], [place] [phone] Scheduled Discharge Disposition: Discharged to home or self care (routine discharge) documented as of this encounter Visit Diagnoses Not on filedocumented in this encounter Additional Health Concerns Assessment Noted Time PHQ-9 Depression Total Score: 12 023 3:14 PM CDT PHQ-2 Depression Total Score: 2 05/18/20 23 3:14 PM CDT documented as of this encounter
--- OUTSIDE RECORDS SUMMARY | 2023-11-10 15:10 | XMS_ITS | Encounter Summary ---
Author Name Unknown Organization [facility] Address [address] [place] [address] Phone Care Team Providers Care Print Cutter Name Role Phone Unavailable Primary Care Provider Unavailabl e Reason for Visit * Prior Authorization (Routine) - Closed Specialty Diagnoses / Procedures Referred By Contac t Referred To Contact Psych Rehab Diagnoses Bipolar II disorder () Trauma and stressor-related disorder Procedures MOTHER BABY ENROLLMENT Jazmine Potter, [facility] [address] [place] [address] [address] Referral ID Status Reason Start Date Expiration Date Visits Re quested Visits Authorized [id number] Closed 05/09/2023 06/24/2023 105 105 Encounter Details Date Type Department Care Team Description 05/18/2023 9:30 AM CDT Psych [facility] [address] [place] [address] [phone] Karoline Benson MD 701 [facility] S1 860 [place], [place] 720[address] Dh, Mother Baby Discharge Disposition: Discharged to [...] LPCC - 05/18/2023 9:30 AM CDT Dept: [facility] Type of Service: Group Therapy Name of Group: Psychoeducation/Skills Group Provider/Group Dredge Deckhand: Claire Workman LPCC Date of Service: 05/18/2023 Start Time: 9:30 AM Stop Time: 10:15 AM Number of Group Members Present: 4 Location of Service: Face to Face at [facility] Session Content (Intervention): Welcomed any new [...] Department Care Team Description 11/24/2023 1:30 PM CHANNEL BUSINESS MANAGER [facility] [address] [address] Shahbaz Urias MD [address] [place] [address] [place] [address] Scheduled Discharge Disposition: Discharged to home or self care (routine discharge) 01/03/2024 3:[address] [facility] [place] Sleep Center [address] [place], [place] [phone] Trip Nieto MD [address] [place] [address] Scheduled Discharge Disposition: Discharged to home or [...]
--- OUTSIDE RECORDS SUMMARY | 2023-11-10 15:10 | XMS_ITS | Encounter Summary ---
Author Name Unknown Organization [facility] Address [address] [place] [address] Phone Care Team Providers Care Filenet Architect Name Role Phone Unavailable Primary Care Provider Unavailabl e Reason for Visit * Prior Authorization (Routine) - Closed Specialty Diagnoses / Procedures Referred By Contac t Referred To Contact Psych Rehab Diagnoses Bipolar II disorder () Trauma and stressor-related disorder Procedures MOTHER BABY ENROLLMENT Jazmine Potter, [facility] 701 [place] [address] [address] Referral ID Status Reason Start Date Expiration Date Visits Re quested Visits Authorized [id number] Closed 05/09/2023 06/24/2023 105 105 Encounter Details Date Type Department Care Team Description 05/23/2023 11:00 AM CDT [facility] [address] [place] [address] [phone] Karoline Benson MD 701 [facility] S[address]60 [place], [place] [phone] Dh, Mother Baby Discharge Disposition: Discharged to [...] LPCC - 05/23/2023 11:00 AM CDT Dept: [facility] Type of Service: Group Therapy Name of Group: Psychoeducation/Skills Group Provider/Group Formal Service Waiter: Claire Workman LPCC Date of Service: 05/23/2023 Start Time: 11:15 AM Stop Time: 12:00 PM Number of Group Members Present: 5 Location of Service: Face to Face at [facility] Session Content (Intervention): The purpose of this group was to provide education through information-sharing and facilitated group discussion. Handouts were provided and covered in detail. Skills taught today included: Parenting Education (describe [place] of Security Chapter 2) The patient???s response [...] Department Care Team Description 11/24/2023 1:30 PM TRACK SUPERINTENDENT [facility] [address] [address] Shahbaz Urias MD [address] [place], [place] [address] Scheduled Discharge Disposition: Discharged to home or self care (routine discharge) 01/03/2024 3:00 PM CDT Telemedicine [facility] Sleep Center [address] [place] [address] Trip Nieto MD [address] [place] [address] Scheduled Discharge Disposition: Discharged to home or [...]
--- OUTSIDE RECORDS SUMMARY | 2023-11-10 15:11 | XMS_ITS | Encounter Summary ---
Author Name Unknown Organization [facility] Address 701 [place] [address] Phone Care Team Providers Care Halal Butcher Name Role Phone Unavailable Primary Care Provider Unavailabl e Encounter Details Date Type Department Care Team Description 05/13/2023 9:00 AM CDT Telemedicine Psych Rehab [facility] 701 [place], [place] [phone] Karoline Benson MD 701 [facility] [address]60 [place] [address] Left without seen Discharge Disposition: Discharged to [...] Department Care Team Description 11/24/2023 1:30 PM AVIATION PROJECT ENGINEER [facility] [address] [phone] Shahbaz Urias MD [address] [place] [address] Scheduled Discharge Disposition: Discharged to home or self care (routine discharge) 01/03/2024 3:00 PM CDT Telemedicine [facility] Sleep Center [address] [place] [address] Trip Nieto MD 701 [place] [address] Scheduled Discharge Disposition: Discharged to home or self care (routine discharge) documented as of this encounter Visit Diagnoses Not on filedocumented in this encounter Additional Health Concerns Assessment Noted Time PHQ-9 Depression Total Score: 12 023 3:56 PM CDT PHQ-2 Depression Total Score: 1 05/11/20 23 3:56 PM CDT documented as of this encounter
--- OUTSIDE RECORDS SUMMARY | 2023-11-10 15:11 | XMS_ITS | Encounter Summary ---
Author Name Unknown Organization [facility] Address [address] [place] [address] Phone Care Team Providers Care Center Sales And Service Associate Name Role Phone Unavailable Primary Care Provider Unavailabl e Reason for Visit * Prior Authorization (Routine) - Closed Specialty Diagnoses / Procedures Referred By Contac t Referred To Contact Psych Rehab Diagnoses Bipolar II disorder () Trauma and stressor-related disorder Procedures MOTHER BABY ENROLLMENT Jazmine Potter, [facility] [address] [place] [address] [address] Referral ID Status Reason Start Date Expiration Date Visits Re quested Visits Authorized [id number] Closed 05/09/2023 06/24/2023 105 105 Encounter Details Date Type Department Care Team Description 05/10/2023 12:30 PM CDT [facility] [address] [place] [address] [phone] Karoline Benson MD 701 [facility] S[address]60 [place], [place] [phone] Dh, Mother Baby Discharge Disposition: Discharged to [...] OTR/L - 05/10/2023 12:30 PM CDT Dept: [facility] Type of Service: Group Therapy Name of Group: Wellness Group Provider/Group Talent Acquisition Project Manager: Alisha Hardy OTR/L Date of Service: 05/10/2023 Start Time: 12:45 PM Stop Time: 1:30 PM Number of Group Members Present: 5 Location of Service: Face to Face at [facility] WARRANTY ADMINISTRATOR SERVICES PROVIDED (if applicable): No Session [...] Department Care Team Description 11/24/2023 1:30 PM CREDIT CARD SPECIALIST [facility] [address] [address] Shahbaz Urias MD [address] [address] Scheduled Discharge Disposition: Discharged to home or self care (routine discharge) 01/03/2024 3:00 PM CDT Telemedicine [facility] Sleep Center [address] [place] [address] Trip Nieto MD [address] [place] [address] Scheduled Discharge Disposition: Discharged to home or self care (routine discharge) documented as of this encounter Visit Diagnoses Diagnosis Bipolar II disorder ()- Primary Other bipolar disorders documented in this encounter
--- OUTSIDE RECORDS SUMMARY | 2023-11-10 15:11 | XMS_ITS | Encounter Summary ---
Author Name Unknown Organization [facility] Address [address] [place] [address] Phone Care Team Providers Care Manager Center Name Role Phone Unavailable Primary Care Provider Unavailabl e Reason for Visit * Prior Authorization (Routine) - Closed Specialty Diagnoses / Procedures Referred By Contac t Referred To Contact Psych Rehab Diagnoses Bipolar II disorder () Trauma and stressor-related disorder Procedures MOTHER BABY ENROLLMENT Jazmine Potter, [facility] [address] [place] [address] [address] Referral ID Status Reason Start Date Expiration Date Visits Re quested Visits Authorized [id number] Closed 05/09/2023 06/24/2023 105 105 Encounter Details Date Type Department Care Team Description 05/10/2023 9:30 AM CDT Psych [facility] [address] [place] [address] [phone] Karoline Benson MD 701 [facility] S[address]60 [place], [place] [phone] Dh, Mother Baby Discharge Disposition: Discharged to [...] LICSW - 05/10/2023 9:30 AM CDT Dept: [facility] Type of Service: Group Therapy Name of Group: Psychoeducation/Skills Group Provider/Group Medical Coding Instructor: Jazmine Potter LICSW Date of Service: 05/10/2023 Start Time: 9:30 AM Stop Time: 10:15 AM Number of Group Members Present: 4 Location of Service: Face to Face at [facility] CENSUS TAKER SERVICES PROVIDED (if applicable): No Session Content [...] Department Care Team Description 11/24/2023 1:30 PM RESEARCH AND DEVELOPMENT MANAGER [facility] [address] [address] Shahbaz Urias MD [address] [place], [place] 7[address] Scheduled Discharge Disposition: Discharged to home or self care (routine discharge) 01/03/2024 3:00 PM CDT Telemedicine [facility] Sleep Center [address] [place], [place] [phone] Trip Nieto MD [address] [place] [address] Scheduled Discharge Disposition: Discharged to home or self care (routine discharge) documented as of this encounter Visit Diagnoses Diagnosis Bipolar II disorder ()- Primary Other bipolar disorders Trauma and stressor-related disorder documented in this encounter
--- OUTSIDE RECORDS SUMMARY | 2023-11-10 15:11 | XMS_ITS | Encounter Summary ---
Author Name Unknown Organization [facility] Address [address] [place] [address] Phone Care Team Providers Care Electronics Lead Name Role Phone Unavailable Primary Care Provider Unavailabl e Reason for Visit * Prior Authorization (Routine) - Closed Specialty Diagnoses / Procedures Referred By Contac t Referred To Contact Psych Rehab Diagnoses Bipolar II disorder () Trauma and stressor-related disorder Procedures MOTHER BABY ENROLLMENT Jazmine Potter, [facility] 701 [place] [address] [address] Referral ID Status Reason Start Date Expiration Date Visits Re quested Visits Authorized [id number] Closed 05/09/2023 06/24/2023 105 105 Encounter Details Date Type Department Care Team Description 05/10/2023 11:00 AM CDT [facility] [address] [place] [address] [phone] Karoline Benson MD 701 [facility] S1 [address]60 [place], [place] [phone] Dh, Mother Baby Discharge Disposition: Discharged to [...] Center Type of Service: Group Therapy Provider/Group Lumber Press Operator: Sara Cunha PT Date of Service: 05/10/2023 Start Time: 11:00 AM Stop Time: 12:00 PM Number of Group Members Present: 5 Name of Group: Movement Location of Service: Face to Face at a [facility] PRODUCT CRAFTSMAN SERVICES PROVIDED (if applicable): No Session Content (Intervention) (including goal/intended outcome): Mindful Movement. Encouraged group members to participate in mind-body skills facilitated by [facility] Trauma-Informed Yoga providers. Trauma-sensitive mind-body skills and [...] Department Care Team Description 11/24/2023 1:30 PM TOWER EXCAVATOR OPERATOR [facility] [address] [address] Shahbaz Urias MD [address] [place], [place] 16[address]15 Scheduled Discharge Disposition: Discharged to home or self care (routine discharge) 01/03/2024 3:00 PM CDT Telemedicine [facility] Sleep Center [address] [place], [place] [phone] Trip Nieto MD [address] [place] [address] Scheduled Discharge Disposition: Discharged to home or self care (routine discharge) documented as of this encounter Visit Diagnoses Diagnosis Trauma and stressor-related disorder- Primary documented in this encounter
--- OUTSIDE RECORDS SUMMARY | 2023-11-10 15:11 | XMS_ITS | Encounter Summary ---
Author Name Unknown Organization [facility] Address [address] [place] [address] Phone Care Team Providers Care Director Medical Writing Name Role Phone Unavailable Primary Care Provider Unavailabl e Reason for Visit * Prior Authorization (Routine) - Closed Specialty Diagnoses / Procedures Referred By Contac t Referred To Contact Psych Rehab Diagnoses Bipolar II disorder () Trauma and stressor-related disorder Procedures MOTHER BABY ENROLLMENT Jazmine Potter, [facility] 701 [place] [address] [address] Referral ID Status Reason Start Date Expiration Date Visits Re quested Visits Authorized [id number] Closed 05/09/2023 06/24/2023 105 105 Encounter Details Date Type Department Care Team Description 05/12/2023 11:00 AM CDT [facility] [address] [place] [address] [phone] Karoline Benson MD 701 [facility] S1 860 [place], [place] [phone] Dh, Mother Baby Discharge Disposition: Discharged to [...] - 05/12/2023 11:00 AM CDT Dept: [facility] Type of Service: Group Therapy Provider/Group Bacteriology Teacher: Sara Cunha PT Date of Service: 05/12/2023 Start Time: 11:00 AM Stop Time: 12:00 PM Number of Group Members Present: 5 Name of Group: Movement Location of Service: Face to Face at a [facility] COMMERCIAL LINES ACCOUNT EXECUTIVE SERVICES PROVIDED (if applicable): No Session Content (Intervention) (including goal/intended outcome): Mindful Movement. Encouraged group members to participate in mind-body skills facilitated by [facility] Trauma-Informed Yoga providers. Trauma-sensitive mind-body skills and [...] Department Care Team Description 11/24/2023 1:30 PM EMPLOYMENT ADJUDICATOR [facility] [address] [address] Shahbaz Urias MD [address] [place] [address] Scheduled Discharge Disposition: Discharged to home or self care (routine discharge) 01/03/2024 3:00 PM CDT Telemedicine [facility] Sleep Center [address] [place] [address] Trip Nieto MD [address] [place] [address] Scheduled Discharge Disposition: Discharged to home or [...]
--- OUTSIDE RECORDS SUMMARY | 2023-11-10 15:11 | XMS_ITS | Encounter Summary ---
Author Name Unknown Organization [facility] Address [address] [place] [address] Phone Care Team Providers Care Room Service Manager Name Role Phone Unavailable Primary Care Provider Unavailabl e Reason for Visit * Prior Authorization (Routine) - Closed Specialty Diagnoses / Procedures Referred By Contac t Referred To Contact Psych Rehab Diagnoses Bipolar II disorder () Trauma and stressor-related disorder Procedures MOTHER BABY ENROLLMENT Jazmine Potter, [facility] [address] [place] [address] [address] Referral ID Status Reason Start Date Expiration Date Visits Re quested Visits Authorized [id number] Closed 05/09/2023 06/24/2023 105 105 Encounter Details Date Type Department Care Team Description 05/16/2023 12:30 PM CDT Psych [facility] [address] [place] [address] Karoline Benson MD 701 [facility] S[address]60 [place], [place] [phone] Dh, Mother Baby Discharge Disposition: Discharged to [...] OTR/L - 05/16/2023 12:30 PM CDT Dept: [facility] Type of Service: Group Therapy Name of Group: Wellness Group Provider/Group Cardiac Monitor Technician: Alisha Hardy OTR/L Date of Service: 05/16/2023 Start Time: 12:45 PM Stop Time: 1:30 PM Number of Group Members Present: 6 Location of Service: Face to Face at [facility] HYBRID CORN BREEDER SERVICES PROVIDED (if applicable): No Session Content [...] Department Care Team Description 11/24/2023 1:30 PM HEALTH ASSISTANT [facility] [address] [address] Shahbaz Urias MD [address] [place] [address] Scheduled Discharge Disposition: Discharged to home or self care (routine discharge) 01/03/2024 3:[address] [facility] Sleep [facility] [address] [place] [address] Trip Nieto MD 701 [place], [place] 17[address] Scheduled Discharge Disposition: Discharged to home or [...]
--- OUTSIDE RECORDS SUMMARY | 2023-11-10 15:11 | XMS_ITS | Encounter Summary ---
Author Name Unknown Organization [facility] Address [address] [place] [address] Phone Care Team Providers Care Flex O Writer Operator Name Role Phone Unavailable Primary Care Provider Unavailabl e Reason for Visit * Prior Authorization (Routine) - Closed Specialty Diagnoses / Procedures Referred By Contac t Referred To Contact Psych Rehab Diagnoses Bipolar II disorder () Trauma and stressor-related disorder Procedures MOTHER BABY ENROLLMENT Jazmine Potter, [facility] [address] [place] [address] [address] Referral ID Status Reason Start Date Expiration Date Visits Re quested Visits Authorized [id number] Closed 05/09/2023 06/24/2023 105 105 Encounter Details Date Type Department Care Team Description 05/11/2023 12:30 PM CDT [facility] [address] [place] [address] [phone] Karoline Benson MD 701 [facility] S[address]60 [place], [place] 107[address] Dh, Mother Baby Discharge Disposition: Discharged to [...] Therapy Name of Group: Wellness Group Provider/Group Parking Enforcement Officer: Alisha Hardy OTR/L Date of Service: 05/11/2023 Start Time: 12:45 PM Stop Time: 1:30 PM Number of Group Members Present: 6 Location of Service: Face to Face at [facility] CASE FINISHER SERVICES PROVIDED (if applicable): No Session Content [...] Department Care Team Description 11/24/2023 1:30 PM MIDDLE SCHOOL COACH [facility] [address] [address] Shahbaz Urias MD [address] [place] [address] Scheduled Discharge Disposition: Discharged to home or self care (routine discharge) 01/03/2024 3:00 PM CDT Telemedicine [facility] Sleep Center [address] [place] [address] Trip Nieto MD 701 [place] [address] Scheduled Discharge Disposition: Discharged to home or [...]
--- OUTSIDE RECORDS SUMMARY | 2023-11-10 15:11 | XMS_ITS | Encounter Summary ---
Author Name Unknown Organization [facility] Address [address] [place] [address] Phone Care Team Providers Care Plastics Repairer Name Role Phone Unavailable Primary Care Provider Unavailabl e Reason for Visit * Prior Authorization (Routine) - Closed Specialty Diagnoses / Procedures Referred By Contac t Referred To Contact Psych Rehab Diagnoses Bipolar II disorder () Trauma and stressor-related disorder Procedures MOTHER BABY ENROLLMENT Jazmine Potter, [facility] [address] [place] [address] [address] Referral ID Status Reason Start Date Expiration Date Visits Re quested Visits Authorized [id number] Closed 05/09/2023 06/24/2023 105 105 Encounter Details Date Type Department Care Team Description 05/10/2023 1:45 PM CDT [facility] [address] [place] [address] [phone] Karoline Benson MD 701 [facility] S1 860 [place], [place] [phone] Dh, Mother Baby Discharge Disposition: Discharged to [...] Name of Group: Psychoeducation/Skills Group Provider/Group Ham Pumper: Noy Chen LICSW Date of Service: 05/10/2023 Start Time: 1:45 PM Stop Time: 2:30 PM Number of Group Members Present: 5 Location of Service: Face to Face at [facility] ELECTRONIC WIRER SERVICES PROVIDED (if applicable): No Session Content (Intervention): The purpose of this group was to provide education through information-sharing and facilitated group discussion. Skills taught today included: Parenting Education (describe [place] [employer] Parenting) The patient???s response to [...] Department Care Team Description 11/24/2023 1:30 PM TAVERN CAR ATTENDANT [facility] [address] [address] Shahbaz Urias MD [address] [place] [address] Scheduled Discharge Disposition: Discharged to home or self care (routine discharge) 01/03/2024 3:00 PM CDT Telemedicine [facility] [address] [place] [address] Trip Nieto MD [address] [place] [address] Scheduled Discharge Disposition: Discharged to home or self care (routine discharge) documented as of this encounter Visit Diagnoses Diagnosis Bipolar II disorder ()- Primary Other bipolar disorders Trauma and stressor-related disorder documented in this encounter
--- OUTSIDE RECORDS SUMMARY | 2023-11-10 15:11 | XMS_ITS | Encounter Summary ---
Author Name Unknown Organization [facility] Address [address] [place] [address] Phone Care Team Providers Care Esthetician Spa Name Role Phone Unavailable Primary Care Provider Unavailabl e Reason for Visit * Prior Authorization (Routine) - Closed Specialty Diagnoses / Procedures Referred By Contac t Referred To Contact Psych Rehab Diagnoses Bipolar II disorder () Trauma and stressor-related disorder Procedures MOTHER BABY ENROLLMENT Jazmine Potter, [facility] [address] [place] [address] [address] Referral ID Status Reason Start Date Expiration Date Visits Re quested Visits Authorized [id number] Closed 05/09/2023 06/24/2023 105 105 Encounter Details Date Type Department Care Team Description 05/12/2023 12:30 PM CDT Psych [facility] [address] [place] [address] [phone] Karoline Benson MD 701 [facility] S1 860 [place], [place] 6[address] Dh, Mother Baby Discharge Disposition: Discharged to [...] LICSW - 05/12/2023 12:30 PM CDT Dept: [facility] Type of Service: Group Therapy Name of Group: Psychoeducation/Skills Group Provider/Group Carpenter Supervisor: Noy Chen LICSW Date of Service: 05/12/2023 Start Time: 12:45 PM Stop Time: 1:30 PM Number of Group Members Present: 5 Location of Service: Face to Face at [facility] PARTS INSPECTOR SERVICES PROVIDED (if applicable): No Session Content (Intervention): The purpose of this group was to provide education through information-sharing and facilitated group discussion. Handouts were provided and covered in detail. Skills taught today included: Parenting Education (describe [place] of Security) The patient???s response to the [...] Department Care Team Description 11/24/2023 1:30 PM ENGINE GENERATOR ASSEMBLER [facility] [address] [address] Shahbaz Urias MD [address] [place], [place] [phone] Scheduled Discharge Disposition: Discharged to home or self care (routine discharge) 01/03/2024 3:00 PM CDT Telemedicine [facility] Sleep Center [address] [place], [place] 798195 Trip Nieto MD 701 [place] [address] Scheduled Discharge Disposition: Discharged to home or [...]
--- OUTSIDE RECORDS SUMMARY | 2023-11-10 15:11 | XMS_ITS | Encounter Summary ---
Author Name Unknown Organization [facility] Address [address] [place] [address] Phone Care Team Providers Care Lactation Nurse Name Role Phone Unavailable Primary Care Provider Unavailabl e Reason for Visit * Prior Authorization (Routine) - Closed Specialty Diagnoses / Procedures Referred By Contac t Referred To Contact Psych Rehab Diagnoses Bipolar II disorder () Trauma and stressor-related disorder Procedures MOTHER BABY ENROLLMENT Jazmine Potter, [facility] 701 [place] [address] [address] Referral ID Status Reason Start Date Expiration Date Visits Re quested Visits Authorized [id number] Closed 05/09/2023 06/24/2023 105 105 Encounter Details Date Type Department Care Team Description 05/10/2023 10:15 AM CDT [facility] [address] [place] [address] [phone] Karoline Benson MD 701 [facility] S1 860 [place], [place] [phone] Dh, Mother Baby Discharge Disposition: Discharged to [...] LICSW - 05/10/2023 10:15 AM CDT Dept: [facility] Type of Service: Group Therapy Name of Group: Psychotherapy Process Group Provider/Group Design Coordinator: Jazmine Potter LICSW Date of Service: 05/10/2023 Start Time: 10:15 AM Stop Time: 11:00 AM Number of Group Members Present: 4 Location of Service: [facility] Face at [facility] CUT OFF MACHINE UNLOADER SERVICES PROVIDED (if applicable): No Session Content [...] Department Care Team Description 11/24/2023 1:30 PM PARACHUTE REPAIRER [facility] [address] [address] Shahbaz Urias MD 701 [facility] O5 [place] [address] Scheduled Discharge Disposition: Discharged to home or self care (routine discharge) 01/03/2024 3:00 PM CDT Telemedicine [facility] Sleep Center 701 [facility] [address] [place], [place] 466[address] Trip Nieto MD [address] [place] [address] 678165 Scheduled Discharge Disposition: Discharged to home or self care (routine discharge) documented as of this encounter Visit Diagnoses Diagnosis Bipolar II disorder ()- Primary Other bipolar disorders Trauma and stressor-related disorder documented in this encounter
--- OUTSIDE RECORDS SUMMARY | 2023-11-10 15:11 | XMS_ITS | Encounter Summary ---
Author Name Unknown Organization [facility] Address [address] [place] [address] Phone Care Team Providers Care Director Of Community Center Name Role Phone Unavailable Primary Care Provider Unavailabl e Reason for Visit * Prior Authorization (Routine) - Closed Specialty Diagnoses / Procedures Referred By Contac t Referred To Contact Psych Rehab Diagnoses Bipolar II disorder () Trauma and stressor-related disorder Procedures MOTHER BABY ENROLLMENT Jazmine Potter, [facility] [address] [place] [address] [address] Referral ID Status Reason Start Date Expiration Date Visits Re quested Visits Authorized [id number] Closed 05/09/2023 06/24/2023 105 105 Encounter Details Date Type Department Care Team Description 05/16/2023 1:45 PM CDT [facility] [address] [place] [address] [phone] Karoline Benson MD 701 [facility] S1 [address]60 [place], [place] [phone] Dh, Mother Baby Discharge Disposition: Discharged to [...] LICSW - 05/16/2023 1:45 PM CDT Dept: [facility] Type of Service: Group Therapy Name of Group: Psychoeducation/Skills Group Provider/Group Strike On Machine Operator: Jazmine Potter LICSW Date of Service: 05/16/2023 Start Time: 1:45 PM Stop Time: 2:30 PM Number of Group Members Present: 7 Location of Service: Face to Face at [facility] JOURNEYMAN MOLDER SERVICES PROVIDED (if applicable): No Session Content [...] Department Care Team Description 11/24/2023 1:30 PM HOUSEKEEPING DEPARTMENT WORKER [facility] [address] [address] Shahbaz Urias MD [address] [place], [place] 386[address] Scheduled Discharge Disposition: Discharged to home or self care (routine discharge) 01/03/2024 3:00 PM CDT Telemedicine [facility] [address] [place], [place] 455045 Trip Nieto MD [address] [place] [address] Scheduled Discharge Disposition: Discharged to home or [...]
--- OUTSIDE RECORDS SUMMARY | 2023-11-10 15:11 | XMS_ITS | Encounter Summary ---
Author Name Unknown Organization [facility] Address [address] [place] [address] Phone Care Team Providers Care Elevator Pilot Name Role Phone Unavailable Primary Care Provider Unavailabl e Reason for Visit * Prior Authorization (Routine) - Closed Specialty Diagnoses / Procedures Referred By Contac t Referred To Contact Psych Rehab Diagnoses Bipolar II disorder () Trauma and stressor-related disorder Procedures MOTHER BABY ENROLLMENT Jazmine Potter, [facility] 701 [place] [address] [address] Referral ID Status Reason Start Date Expiration Date Visits Re quested Visits Authorized [id number] Closed 05/09/2023 06/24/2023 105 105 Encounter Details Date Type Department Care Team Description 05/16/2023 10:15 AM CDT [facility] [address] [place] [address] [phone] Karoline Benson MD 701 [facility] S1 860 [place], [place] [phone] Dh, Mother Baby Discharge Disposition: Discharged to [...] LICSW - 05/16/2023 10:15 AM CDT Dept: [facility] Type of Service: Group Therapy Name of Group: Psychotherapy Process Group Provider/Group Primer Supervisor: Jazmine Potter LICSW Date of Service: 05/16/2023 Start Time: 10:15 AM Stop Time: 11:00 AM Number of Group Members Present: 6 Location of Service: Face to Face at [facility] PROPERTY CLAIMS ADJUSTER SERVICES PROVIDED (if applicable): No Session Content [...] Department Care Team Description 11/24/2023 1:30 PM SUPERVISOR DYER [facility] [address] [address] Shahbaz Urias MD 701 [facility] [place], [place] 421235 Scheduled Discharge Disposition: Discharged to home or self care (routine discharge) 01/03/2024 3:00 PM CDT Telemedicine [facility] 701 [facility] [address] [place], [place] 164525 Trip Nieto MD 701 [place] [address] Scheduled Discharge Disposition: Discharged to home or [...]
--- OUTSIDE RECORDS SUMMARY | 2023-11-10 15:11 | XMS_ITS | Encounter Summary ---
Author Name Unknown Organization [facility] Address [address] [place] [address] Phone Care Team Providers Care Acute Care Nurse Practitioner Name Role Phone Unavailable Primary Care Provider Unavailabl e Reason for Visit * Prior Authorization (Routine) - Closed Specialty Diagnoses / Procedures Referred By Contac t Referred To Contact Psych Rehab Diagnoses Bipolar II disorder () Trauma and stressor-related disorder Procedures MOTHER BABY ENROLLMENT Jazmine Potter, [facility] [address] [place] [address] [address] Referral ID Status Reason Start Date Expiration Date Visits Re quested Visits Authorized [id number] Closed 05/09/2023 06/24/2023 105 105 Encounter Details Date Type Department Care Team Description 05/12/2023 1:30 PM CDT [facility] [address] [place] [address] [phone] Karoline Benson MD 701 [facility] S1 860 [place], [place] [phone] Dh, Mother Baby Discharge Disposition: Discharged to [...] LICSW - 05/12/2023 1:30 PM CDT Dept: [facility] Type of Service: Group Therapy Name of Group: Psychoeducation/Skills Group Provider/Group Claim Service Representative: Noy Chen LICSW Date of Service: 05/12/2023 Start Time: 1:45 PM Stop Time: 2:30 PM Number of Group Members Present: 5 Location of Service: Face to Face at [facility] DIRECT SERVICE WORKER SERVICES PROVIDED (if applicable): No Session [...] No Other observations: NA Noy Chen LICSW, 05/13/2023 3:37 PM documented in this encounter Plan of Treatment Upcoming Encounters Date Type Department Care Team Description 11/24/2023 1:30 PM BLOCKER AND POLISHER GOLD WHEEL [facility] [address] [address] Shahbaz Urias MD [address] [place], [place] 9[address]315 Scheduled Discharge Disposition: Discharged to home or self care (routine discharge) 01/03/2024 3:00 PM CDT Telemedicine [facility] Sleep [facility] [address] [place], [place] 045[address] Trip Nieto MD [address] [place] [address] Scheduled Discharge Disposition: Discharged to home or [...]
--- OUTSIDE RECORDS SUMMARY | 2023-11-10 15:11 | XMS_ITS | Encounter Summary ---
Author Name Unknown Organization [facility] Address 701 [place] [address] Phone Care Team Providers Care Pediatric Dental Assistant Name Role Phone Unavailable Primary Care Provider Unavailabl e Reason for Visit * Reason Comments Psych Rehab Health Screen Encounter Details Date Type Department Care Team Description 05/10/2023 Documentation Only [facility] 701 [place], [place] [phone] Kiana Borges RN [facility] 701 [place] [address] Psych Rehab Health Screen Social History Tobacco [...] the patient was reviewedand updated during a [id number] meeting. The problem list will be updated as needed and the procedure for screening, assessment, and triage will be followed. See plan, below. Primary Care Provider: Getting established at [place] Date of last PCP visit: 10/2021 Primary [...] following questions. Difficult to pay for children's tutor? X 2. Difficult to pay your bills? [...] home. Pt verbalized an understanding and thanked ad writer. Healthcare Directive on File: No Healthcare [...] Care Team Description 11/24/2023 1:30 PM RESEARCH ANTHROPOLOGIST [facility] [address] [address] Shahbaz Urias MD 701 [facility] [place] [address] Scheduled Discharge Disposition: Discharged to home or self care (routine discharge) 01/03/2024 3:00 PM CDT Telemedicine [facility] 701 [facility] [address] [place] [address] Trip Nieto MD 701 [place] [address] Scheduled Discharge Disposition: Discharged to home or self care (routine discharge) documented as of this encounter Visit Diagnoses Not on filedocumented in this encounter
--- OUTSIDE RECORDS SUMMARY | 2023-11-10 15:11 | XMS_ITS | Encounter Summary ---
Author Name Unknown Organization [facility] Address [address] [place] [address] Phone Care Team Providers Care Civil Draftsman Name Role Phone Unavailable Primary Care Provider Unavailabl e Reason for Visit * Reason Comments Blood Pressure Check Encounter Details Date Type Department Care Team Description 05/09/2023 Documentation Only [facility] [address] [place] [address] 767255 Kiana Borges RN [facility] 701 [place] [address] Blood Pressure Check Social History Tobacco Use [...] Department Care Team Description 11/24/2023 1:30 PM LENS POLISHER [facility] [address] [address] Shahbaz Urias MD 701 [facility] O5 [place], [place] 8[address] Scheduled Discharge Disposition: Discharged to home or self care (routine discharge) 01/03/2024 3:00 PM CDT Telemedicine [facility] Sleep [facility] 701 [facility] [address] [place], [place] 665425 Trip Nieto MD 701 [place] [address] Scheduled Discharge Disposition: Discharged to home or self care (routine discharge) documented as of this encounter Visit Diagnoses Not on filedocumented in this encounter
--- OUTSIDE RECORDS SUMMARY | 2023-11-10 15:11 | XMS_ITS | Encounter Summary ---
Author Name Unknown Organization [facility] Address [address] [place] [address] Phone Care Team Providers Care Large Sheetfed Press Operator Name Role Phone Unavailable Primary Care Provider Unavailabl e Reason for Visit * Prior Authorization (Routine) - Closed Specialty Diagnoses / Procedures Referred By Contac t Referred To Contact Psych Rehab Diagnoses Bipolar II disorder () Trauma and stressor-related disorder Procedures MOTHER BABY ENROLLMENT Jazmine Potter, [facility] 701 [place] [address] [address] Referral ID Status Reason Start Date Expiration Date Visits Re quested Visits Authorized [id number] Closed 05/09/2023 06/24/2023 105 105 Encounter Details Date Type Department Care Team Description 05/12/2023 10:15 AM CDT [facility] [address] [place] [address] [phone] Karoline Benson MD 701 [facility] S1 [address]60 [place], [place] [phone] Dh, Mother Baby Discharge Disposition: Discharged to [...] LPCC - 05/12/2023 10:15 AM CDT Dept: [facility] Type of Service: Group Therapy Name of Group: Psychotherapy Process Group Provider/Group C Python Developer: Claire Workman LPCC Date of Service: 05/12/2023 Start Time: 10:15 AM Stop Time: 11:00 AM Number of Group Members Present: 5 Location of Service: Face to Face at [facility] Session Content of Today's Group: At [...] 2. Trauma and stressor-related disorder Claire Workman [facility], 05/12/2023 11:54 AM documented in this encounter Plan of Treatment Upcoming Encounters Date Type Department Care Team Description 11/24/2023 1:30 PM COMMERCIAL LOAN ASSISTANT [facility] [address] [address] Shahbaz Urias MD [address] [place] [address] O5 [place] [address] Scheduled Discharge Disposition: Discharged to home or self care (routine discharge) 01/03/2024 3:00 PM CDT Telemedicine [facility] Sleep Center [address] [place] [address] [address]220 [place] [address] Trip Nieto MD [address] [place] [address] Scheduled Discharge Disposition: Discharged to home or [...]
--- OUTSIDE RECORDS SUMMARY | 2023-11-10 15:11 | XMS_ITS | Encounter Summary ---
Author Name Unknown Organization [facility] Address [address] [place] [address]. [place] [address] Phone Care Team Providers Care Autocad Electrical Designer Name Role Phone Unavailable Primary Care Provider Unavailabl e Encounter Details Date Type Department Care Team Description 05/11/2023 Plan of Care Documentation [facility] Family [address] [address] Social History Tobacco Use Types Packs/Day Years [...] Department Care Team Description 11/24/2023 1:30 PM AUCTIONEER AUTOMOBILE [facility] [address] [address] Shahbaz Urias MD [address] [place] [address] O5 [place] [address] Scheduled Discharge Disposition: Discharged to home or self care (routine discharge) 01/03/2024 3:00 PM CDT Telemedicine [facility] 701 [facility] [address] [place] [address] Trip Nieto MD [address] [place] [address] Scheduled Discharge Disposition: Discharged to home or self care (routine discharge) documented as of this encounter Visit Diagnoses Not on filedocumented in this encounter
--- OUTSIDE RECORDS SUMMARY | 2023-11-10 15:11 | XMS_ITS | Encounter Summary ---
Author Name Unknown Organization [facility] Address 701 [facility] [place] [address] Phone Care Team Providers Care Fixed Income Portfolio Manager Name Role Phone Unavailable Primary Care Provider Unavailabl e Reason for Visit * Reason Comments Mother Baby - Individual Psychotherapy Encounter Details Date Type Department Care Team Description 05/11/2023 2:30 PM CDT Psych Rehab [facility] 701 [place], [place] [phone] Claire Workman, [facility] 701 [place], [place] 345385 Mother Baby - Individual Psychotherapy Discharge Disposition: [...] this encounter Progress Notes * [facility] Workman [facility]/11/2023 2:30 PM CDT [facility] Progress Note for Treatment Planning Sessions Start Time: 2:30 pm Stop Time: 2:55 pm Date of Service: 05/11/2023 Type of Therapy: Individual, Modality: Emotion Focused Therapy Type of Treatment Plan: Initial Location of Visit: Face to Face at [facility] Participants in this Visit other than the [...] Department Care Team Description 11/24/2023 1:30 PM QUALITY COMPLIANCE CONSULTANT [facility] [address] [address] Shahbaz Urias MD [address] [place] [address] O5 [place] [address] Scheduled Discharge Disposition: Discharged to home or self care (routine discharge) 01/03/2024 3:00 PM CDT Telemedicine [facility] Sleep Center 701 [facility] [address] [place] [address] Trip Nieto MD 701 [place] [address] Scheduled Discharge Disposition: Discharged to home or [...]
--- OUTSIDE RECORDS SUMMARY | 2023-11-10 15:11 | XMS_ITS | Encounter Summary ---
Author Name Unknown Organization [facility] Address [address] [place] [address] Phone Care Team Providers Care Public Health Administrator Name Role Phone Unavailable Primary Care Provider Unavailabl e Reason for Visit * Reason Comments Psych Medication Management Encounter Details Date Type Department Care Team Description 05/09/2023 11:30 AM CDT Psych Rehab [facility] [address] [place], [place] [address] Karoline Benson MD 701 [facility] [address] [place], [place] [address] Psych Medication Management Discharge Disposition: Discharged to [...] original note were not included. Mother Baby [facility], New Patient Psychiatry Evaluation Admitted to [facility] on: 05/09/23 Merry Rooney is a 22 y.o. mother of baby (Latha b. 05/03/23) and 2 year old son (Chuy). Referred by [facility] inpatient Cultural Context: white, Nepali and Maltese Pronouns: she/her/hers; Supports: Jesús -- supportive Therapist: ; PCP: ; OB-DIETARY SUPERVISOR: Antonio Ob; International Controller: Feeding Method: breast and bottle feeding with [...] symptoms and possible preeclampsia leading to transferto [facility] ICU. Seen by psychiatry (Dr Ortiz) at [facility], discontinued from her sertraline and started on [...] for admission to the [facility] and requires the structure, support and education [...] that is provided in the [facility]. Plan 1) Admit patient to the [facility] Discussed diagnosis and course and frame of [...] and back rather than drive herself from [place]. She'll talk with her about a sleep plan 2) MEDICATIONS: - Reviewed treatment options. Will cont seroquel 50mg hs and 12.5mg bid 3) LABS: Will review labs in Epic 4) Continue to monitor symptoms 5) Engage patient in individual and group therapy process in the [facility]. 6) Review old records. 7) Contact collateral informants as indicated. 8) Arrange appropriate outpatient follow-up at the conclusion of the [facility] Chief Concern I'm anxious all the time. I almost after I had my baby History of Present Illness Pertinent Background ([facility] notes reviewed) Dawson well during . Had taken Sertraline 50mg [...] it and it was scary. Went to [facility] and had a seizure and almost . Life flighted to [facility]. 05/05-05/07/23 (discharge note from [facility]): transferred to [facility] for further management inthe ICU and seen [...] though she is getting ride here from [place]. Feels anxious all of the time and struggles with PTSD symptoms -- has nightmares related to trauma andflashbacks, hypervigilance, and triggered by things that remind her of the experience she had. Last night had a headache and took her blood pressure 160/100 --- went to [facility], it was 150/100 and then started on a blood pressure med. Also taking: -Seroquel 50mg HS and 12.5mg bid -- has helped with sleep and staying calm. -Had depression at 6 months -- took seroquel 25mg for anxiety and insomnia. Diagnosed with bipolar == Sep 2021 admitted voluntarily at [facility] (had been all over [...] when she was 4. Mother lived in [place]. 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 Legal: no had involvement with the legal system. The patient reports the following spiritual and/or cultural history: Nepali and Maltese background Relationship to her partner/father/co-parent of the [...] Department Care Team Description 11/24/2023 1:30 PM DEAN Office [facility] [address] [address] Shahbaz Urias MD [address] [facility] [address] [place] [address] Scheduled Discharge Disposition: Discharged to home or self care (routine discharge) 01/03/2024 3:00 PM CDT Telemedicine [facility] Sleep Center [address] [place] [address] Trip Nieto MD [address] [place] [address] Scheduled Discharge Disposition: Discharged to home or self care (routine discharge) documented as of this encounter Visit Diagnoses Not on filedocumented in this encounter
--- OUTSIDE RECORDS SUMMARY | 2023-11-10 15:11 | XMS_ITS | Encounter Summary ---
Author Name Unknown Organization [facility] Address [address] [place] [address] Phone Care Team Providers Care Oven Baker Name Role Phone Unavailable Primary Care Provider Unavailabl e Reason for Visit * Prior Authorization (Routine) - Closed Specialty Diagnoses / Procedures Referred By Contac t Referred To Contact Psych Rehab Diagnoses Bipolar II disorder () Trauma and stressor-related disorder Procedures MOTHER BABY ENROLLMENT Jazmine Potter, [facility] [address] [place] [address] [address] Referral ID Status Reason Start Date Expiration Date Visits Re quested Visits Authorized [id number] Closed 05/09/2023 06/24/2023 105 105 Encounter Details Date Type Department Care Team Description 05/12/2023 9:30 AM CDT Psych Rehab [facility] [address] [place] [id number] Karoline Benson MD 701 [facility] [address] [place], [place] [address] Dh, Mother Baby Discharge Disposition: Discharged to [...] Therapy Name of Group: Psychoeducation/Skills Group Provider/Group Bookie: Claire Workman LPCC Date of Service: 05/12/2023 Start Time: 9:30 AM Stop Time: 10:15 AM Number of Group Members Present: 5 Location of Service: Face to Face at [facility] Session Content (Intervention): Welcomed any new patients [...] Department Care Team Description 11/24/2023 1:30 PM SPANISHER Office Visit [facility] [address] [address] Shahbaz Urias MD [address] [place] [address] [place] [address] Scheduled Discharge Disposition: Discharged to home or self care (routine discharge) 01/03/2024 3:00 PM CDT Telemedicine [facility] Sleep Center [address] [place], [place] [address] Trip Nieto MD [address] [place] [address] Scheduled Discharge Disposition: Discharged to home or [...]
--- OUTSIDE RECORDS SUMMARY | 2023-11-10 15:12 | XMS_ITS | Encounter Summary ---
Author Name Unknown Organization [facility] Address [address] [place] [address] Phone Care Team Providers Care Civil Transportation Engineer Name Role Phone Unavailable Primary Care Provider Unavailabl e Reason for Referral * Prior Authorization (Routine) - Closed Specialty Diagnoses / Procedures Referred By Contac t Referred To Contact Psych Rehab Diagnoses Bipolar II disorder () Trauma and stressor-related disorder Procedures MOTHER BABY ENROLLMENT Jazmine Potter [facility] [address] [place] [address] [address] Referral ID Status Reason Start Date Expiration Date Visits Re quested Visits Authorized [id number] Closed 05/09/2023 06/24/2023 105 105 Reason for Visit * Prior Authorization (Routine) - Closed Specialty Diagnoses / Procedures Referred By Contac t Referred To Contact Psych Rehab Diagnoses Bipolar II disorder () Trauma and stressor-related disorder Procedures MOTHER BABY ENROLLMENT Jazmine Potter MACHINE OVERHAULER [address] [place] [address] [address] Referral ID Status Reason Start Date Expiration Date Visits Re quested Visits Authorized [id number] Closed 05/09/2023 06/24/2023 105 105 Encounter Details Date Type Department Care Team Description 05/09/2023 9:30 AM CDT Psych Rehab [facility] [address] [place] [address] Karoline Benson MD 701 [facility] [address] [place] [address] Dh, Mother Baby Discharge Disposition: Discharged to [...] - 05/09/2023 9:30 AM CDT Dept: [facility] Type of Service: Group Therapy Name of Group: Psychoeducation/Skills Group Provider/Group Academic Services Professional: Jazmine Potter LICSW Date of Service: 05/09/2023 Start Time: 9:30 AM Stop Time: 10:15 AM Number of Group Members Present: 3 Location of Service: Face to Face at [facility] ENERGY AND CONSERVATION TECHNICIAN SERVICES PROVIDED (if applicable): No Session [...] Team Description 11/24/2023 1:30 PM DIRECTOR OF DESIGN Office Visit [facility] [address] [address] Shahbaz Urias MD 701 [facility] O5 [place], [place] [address] Scheduled Discharge Disposition: Discharged to home or self care (routine discharge) 01/03/2024 3:00 PM CDT Telemedicine [facility] Sleep Center 701 [facility] [address] [place], [place] [address] Trip Nieto MD [address] [place] [address] Scheduled Discharge Disposition: Discharged to home or self care (routine discharge) documented as of this encounter Visit Diagnoses Diagnosis Bipolar II disorder ()- Primary Other bipolar disorders Trauma and stressor-related disorder documented in this encounter
--- OUTSIDE RECORDS SUMMARY | 2023-11-10 15:12 | XMS_ITS | Referral Summary ---
Author Name Unknown Organization [facility] Address [address] [place] [address] Care Team Providers Care Semiconductor Testing Group Leader Name Role Phone Abbey Bagley PA-C Primary [...] Answer Date Recorded PHQ-2 Score 0 04/14/2023 [place] Depression Scale Answer Date Recorded Last EPDS [...] Advance Directives For more information, please contact: [phone] Latest Code Status on File Code Status [...] with patient/ legal decision maker Care Teams Semiconductor Testing Group Leader Relationship Specialty Start Date End Date Abbey Bagley PA-C PCP - General Physician Appliance Sales Associate 08/15/20 Ino Robbins MD [address] [place] [address] Assigned OBGYN Provider 3/25/23
--- OUTSIDE RECORDS SUMMARY | 2023-11-10 15:12 | XMS_ITS | Encounter Summary ---
Author Name Unknown Organization [facility] Address [address] [place] [address] Care Team Providers Care Lasting Machine Operator Name Role Phone Abbey Bagley PA-C Unavailable Unavailable Abbey Bagley PA-C Primary Care Provider Unava ilable Ino Robbins MD Unavailable Reason for Visit * Reason Comments Care Encounter Details Date Type Department Care Team (Late st Contact Info) Description 04/27/2023 3:45 PM CDT Office Visit [facility] [address] [place] [phone] Ino Robbins MD [address] [place] [address] care in third trimester (Primary Dx) Social History Tobacco Use Types Packs/Day Years Used Date Smoking Tobacco: Former Cigarettes 0.3 Q uit: 03/10/2023 Passive Smoke Exposure: Never Smokeless Tobacco: Never Alcohol Use Standard Drinks/Week Comments Not Currently 0 (1 standard drink = 0.6 oz pur e alcohol) Seldom PHQ-2 Answer Date Recorded PHQ-2 Score 0 04/14/2023 [place] Depression Scale Answer Date Recorded [place] Depression Score 13 03/10/2021 Last EPDS Self [...] documented as of this encounter Care Teams Lasting Machine Operator Relationship Specialty Start Date End Date Abbey Bagley PA-C PCP - General Physician Crop And Soil Scientist 08/15/20 Abbey Bagley PA-C Physician Crop And Soil Scientist 04/11/20 05/02/23 [place] [address] Assigned OBGYN Provider 01/01/23 documented as of this encounter
--- OUTSIDE RECORDS SUMMARY | 2023-11-10 15:12 | XMS_ITS | Encounter Summary ---
Author Name Unknown Organization [facility] Address [address] [facility] [place] [address] Care Team Providers Care Bacon Skinner Name Role Phone Abbey Bagley PA-C Unavailable Unavailable Abbey Bagley PA-C Primary Care Provider Unava ilable Ino Robbins MD Unavailable [phone] Reason for Visit * Reason Onset Date Comments Care 04/26/2023 Encounter Details Date Type Department Care Team (Late st Contact Info) Description 04/26/2023 MyC Medical Advice [facility] [address] [place] [phone] Ino Robbins MD [address] [place], [place] [phone] Care Social History Tobacco Use Types Packs/Day Years Used Date Smoking Tobacco: Former Cigarettes 0.3 Q uit: 03/10/2023 Passive Smoke Exposure: Never Smokeless Tobacco: Never Alcohol Use Standard Drinks/Week Comments Not Currently 0 (1 standard drink = 0.6 oz pur e alcohol) Seldom PHQ-2 Answer Date Recorded PHQ-2 Score 0 04/14/2023 [place] Depression Scale Answer Date Recorded [place] Depression Score 13 03/10/2021 Last EPDS Self [...] documented as of this encounter Care Teams Bacon Skinner Relationship Specialty Start Date End Date Abbey Bagley PA-C PCP - General Physician Nuclear Medicine Officer 08/15/20 Abbey Bagley PA-C Physician Nuclear Medicine Officer 04/11/20 05/02/23 Ino Robbins MD [address] [place] [address] Assigned OBGYN Provider 01/01/23 documented as of this encounter
--- OUTSIDE RECORDS SUMMARY | 2023-11-10 15:12 | XMS_ITS | Encounter Summary ---
Author Name Unknown Organization [facility] Address [facility] [place] [address] Care Team Providers Care Unemployment Benefits Claims Taker Name Role Phone Abbey Bagley PA-C Unavailable Unavailable Abbey Bagley PA-C Primary Care Provider Ino Ken MD Unavailable [phone] Reason for Visit * Reason Comments Rule Out Labor Encounter Details Date Type Department Care Team (Latest Contact Info) Description 04/24/2023 11:01 PM CDT - 04/25/2023 1:18 AM CDT Hospital Encounter [facility] [address] [place] [phone] Kelley Diane, DO [address] [place] [address] Discharge Disposition: Home or Self Care Social History Tobacco Use Types Packs/Day Years Used Date Smoking Tobacco: Former Cigarettes 0.3 Q uit: 03/10/2023 Passive Smoke Exposure: Never Smokeless Tobacco: Never Alcohol Use Standard Drinks/Week Comments Not Currently 0 (1 standard drink = 0.6 oz pur e alcohol) Seldom PHQ-2 Answer Date Recorded PHQ-2 Score 0 04/14/2023 [place] Depression Scale Answer Date Recorded [place] Depression Score 13 03/10/2021 Last EPDS [...] (see handout) Call your doctor or nurse booker if your baby is moving less than [...] Your guide to early labor at home (Lithuanian) documented in this encounter Medications at Time of Discharge Medication Sig Dispensed Refills Start Date End Date albuterol (PROAIR HFA/PROVENTIL HFA/VENTOLIN HFA) 108 (90 Base) MCG/ACT inhaler Inhale 1 puff into the lungs 0 11/26/2019 Vit-Fe Fumarate-FA ( MULTIVITAMIN W/IRON) 27-0.8 MG tabletIndications:Prenata l care in third trimester Take 1 tablet by mouth daily 90 tablet 3 03/30/2023 valACYclovir (VALTREX) 500 MG tabletIndications:HSV (herpes simplex virus) infection TAKE 1 TABLET BY MOUTH EVERY DAY 90 tablet 1 03/01/2023 sertraline (ZOLOFT) 50 MG tabletIndications:Current mild episode of major depressive disorder, unspecified whether recurrent (H24) Take 1 tablet (50 mg) by mouth daily 30 tablet 3 01/19/2023 ferrous sulfate (FEROSUL) 325 (65 Fe) MG [...] RN - 04/24/2023 11:48 PM CDT 04/24/23 1894 Provider Notification Provider Name/Title Dr. Diane Method [...] agreement with plan. Will contact Dr Kelley Daine with update and for further orders. documented [...] Diane DO LAB - URINE ORDER [facility] [address] [facility] Lab (1st floor, no room number) [place] [address], [facility] [phone] * (ABNORMAL) CBC with platelets (04/25/2023 12:03 [...] LAB - BLOOD ORDER [facility] Acute [facility] Lab [address] Lab (1st floor, no room number) [place] [address], [facility] [phone] * (ABNORMAL) Comprehensive metabolic panel (04/25/2023 12:03 [...] Diane DO LAB - BLOOD ORDER [facility] [address] Lab (1st floor, no room number) [place] [address], [facility] [phone] documented in this encounter Visit Diagnoses Diagnosis [...] documented as of this encounter Care Teams Unemployment Benefits Claims Taker Relationship Specialty Start Date End Date Abbey Bagley PA-C PCP - General Physician Coding Specialist 08/15/20 Abbey Bagley PA-C Physician Coding Specialist 04/11/20 05/02/23 Ino Robbins MD [address] [place] [address] Assigned OBGYN Provider 01/01/23 documented as of this encounter
--- OUTSIDE RECORDS SUMMARY | 2023-11-10 15:12 | XMS_ITS | Encounter Summary ---
Author Name Unknown Organization [facility] Address [address] [place] [address] Care Team Providers Care Stripping And Booking Machine Operator Name Role Phone Abbey Bagley PA-C Unavailable Unavailable Abbey Bagley PA-C Primary Care Provider Ino Ken MD Unavailable [phone] Encounter Details Date Type Department Care Team (Latest Contact Info) Description 04/27/2023 Travel Social History Tobacco Use Types Packs/Day Years Used Date Smoking Tobacco: Former Cigarettes 0.3 Q uit: 03/10/2023 Passive Smoke Exposure: Never Smokeless Tobacco: Never Alcohol Use Standard Drinks/Week Comments Not Currently 0 (1 standard drink = 0.6 oz pur e alcohol) Seldom PHQ-2 Answer Date Recorded PHQ-2 Score 0 04/14/2023 [place] Depression Scale Answer Date Recorded [place] Depression Score 13 03/10/2021 Last EPDS Self [...] documented as of this encounter Care Teams Stripping And Booking Machine Operator Relationship Specialty Start Date End Date Abbey Bagley PA-C PCP - General Physician Enrober 08/15/20 Abbey Bagley PA-C Physician Enrober 04/11/20 05/02/23 Ino Robbins MD [address] [place] [address] Assigned OBGYN Provider 01/01/23 documented as of this encounter
--- OUTSIDE RECORDS SUMMARY | 2023-11-10 15:12 | XMS_ITS | Encounter Summary ---
Author Name Unknown Organization [facility] Address [address] [place] [address] Care Team Providers Care Production Support Analyst Name Role Phone Abbey Bagley PA-C Unavailable Unavailable Abbey Bagley PA-C Primary Care Provider Unava ilIno Reynolds MD Unavailable [phone] Reason for Referral * Home Health Therapies & Aides (Priority: 1-2 Weeks) Specialty Diagnoses / Procedures Referred By Bernardo belle Referred To Contact [facility] [address] [place] [address] Referral ID Status Reason Start Date Expiration Date Visits Re quested Visits Authorized Question Answer Please see patient within 96 hours of discharge Reason for Referral /Low Milk Supply Comments If your home visit was not scheduled during your hospital stay, you should receive a call from [facility] within 24 hours after discharge to schedule your ordered home visit. If you have not heard by then, please call [phone]. Reason for Visit * Reason Comments Induction Of Labor * Auth/Cert (Routine) Specialty Diagnoses / Procedures Referred By Contac t Referred To Contact research asst Diagnoses Indication for care in labor or delivery Indication for care in labor or delivery Rh [address] [place] [address] Referral ID Status Reason Start Date Expiration Date Visits Re quested Visits Authorized [id number] 1 1 Encounter Details Date Type Department Care Team (Latest Contact Info) Description 05/02/2023 7:24 AM CDT - 05/04/2023 12:33 PM CDT Hospital Encounter [facility] [address] [place] [phone] Kelely Diane, DO [address] [place] [address] Vaginal delivery (Primary Dx); Indication for care [...] Answer Date Recorded PHQ-2 Score 0 04/14/2023 [place] Depression Scale Answer Date Recorded Last EPDS [...] Rodriguez MD - 05/04/2023 7:54 AM CDT [facility] OB /Discharge Note S: Patient without complaints. [...] of your health care provider. Copyright 2020 [facility]. All rights reserved. Clinically reviewed by Gala Singh RNC-OB, MSN. [employer] [id number] - Rev 12/02. documented in this encounter [...] MOUTH EVERY DAY 90 tablet 1 03/01/2023 ibuprofen (ADVIL/MOTRIN) 600 MG tabletIndications:Vagina l delivery Take 1 tablet (600 mg) by mouth every 6 hours as needed for mild pain or moderate pain Take w/ food 30 tablet 0 05/04/2023 sertraline (ZOLOFT) 50 MG tabletIndications:Curren t mild episode of major depressive disorder, [...] Dr. Kelley Diane DO Obstetrics and Gynecology [facility] [place] * Kelley Diane DO - 05/02/2023 4:06 PM CDT [facility] Labor and Delivery History and Physical [...] be re-consulted if needs arise. DOUGLAS Snyder [facility] 05/04/2023 9:51 AM documented in this [...] in good and stable condition. Aidan Vargas [[id number]] Labor Event Times Dilation complete date: 05/03/23 [...] Keven Thao RN Delivery Nurse Mae Scott, inside sales Assist Vaginal Counts Initial count performed by 2 team members: Two Team Members Dr. Benedicto Stern RN [place] Suture [place] Sponges (RETIRED) Instruments Initial counts 2 5 [...] maternal chest. Stimulation and bulb suction provided Earlimart Measurements Weight: 7 lb 0.5 oz Length: 1' 8.5 Head circumference: 33 cm Skin to Skin and Feeding Plan Skin to skin initiation date/time: 10/16/1840 Skin to skin with: Mother Skin to skin end date/time: Labor Events and Shoulder Dystocia Tracing Prior to Delivery: Category 1 Shoulder dystocia present?: Neg Delivery (Maternal) (Provider to Complete) ([id number]) Episiotomy: None Perineal lacerations: None Repair suture: None Blood Loss Mother: Kristina Vargas Willam #[id number] Start of Mother's Information Delivery Blood Loss 05/02/23 1419 - 05/04/23 0219 Delivery QBL (mL) Hospital Encounter 100 mL Total 100 mL End of Mother's Information Mother: Chaz Vargasvivek Quarles #[id number] Delivery - Provider to Complete ([id number]) Delivering clinician: Kelley Diane DO Delivery Type [...] tianna q2-3 before epidural but difficult to pick up and delivery driver now that she is on her side. [...] Diane DO LAB - BLOOD ORDER BROOKE [facility] Acute Care Lab [address] [facility] Lab (1st floor, no room number) [place] [address], [facility] [phone] * Adult Type and Screen (05/02/2023 9:21 AM CDT) ABO/RH(D) A POS 05/02/2023 8:50 AM CDT RH BLOOD BANK Antibody Screen Negative Negative 05/02/2023 8:50 AM CDT RH BLOOD BANK SPECIMEN EXPIRATION DATE [id number] 05/02/2023 8:50 AM CDT RH BLOOD BANK Blood BLOOD SPECIMEN / Unknown Venipuncture / Unknown 05/02/2023 9:21 AM CDT 05/02/2023 9:36 AM CDT Kelley Tobiase Benedicto [facility] LAB - BLOOD BANK TEST ORDER Performing Organization Address City/[facility]/ZIP Co de Phone Number BLOOD BANK [address] [place] [address], [facility] * Treponema Abs w Reflex to RPR and Titer (05/02/2023 9:21 AM CDT) Treponema Antibody Total Nonreactive Nonreactive 05/02/2023 3:59 PM CDT [facility]EN DO Blood BLOOD SPECIMEN / Unknown Venipuncture / Unknown 05/02/2023 9:21 AM CDT 05/02/2023 9:36 AM CDT Kelley Diane DO LAB - BLOOD ORDER BROOKE [facility]/PROT/ENDO [facility]/Prot/Endo [address], [address] [place] [address], [facility] [phone] * (ABNORMAL) Hemoglobin (05/02/2023 9:21 AM CDT) Hemoglobin 9.2(L) 11.7 - 15.7 g/dL 05/02/2023 9:40 AM CDT LABORATORY Blood BLOOD SPECIMEN / Unknown Venipuncture / Unknown 05/02/2023 9:21 AM CDT 05/02/2023 9:36 AM CDT Kelley Diane DO LAB - BLOOD ORDER BROOKE LABORATORY [facility] Acute Care Lab [address] [facility] Lab (1st floor, no room number) [place] [address], [facility] [phone] documented in this encounter Visit Diagnoses Diagnosis [...] discretion., 226 ($New Bag - Provider: Keven Thoa RN)0250 ($New Bag - Provider: Keven Thao [...] documented as of this encounter Care Teams Production Support Analyst Relationship Specialty Start Date End Date Abbey Bagley PA-C PCP - General Physician Bowling Alley Refinisher 08/15/20 Abbey Bagley PA-C Physician Bowling Alley Refinisher 04/11/20 05/02/23 Ino Robbins MD [address] [place] [address] Assigned OBGYN Provider 01/01/23 documented as of this encounter
--- OUTSIDE RECORDS SUMMARY | 2023-11-10 15:12 | XMS_ITS | Encounter Summary ---
Author Name Unknown Organization [facility] Address [address] [place] [address] Care Team Providers Care Tin Roller Hot Mill Name Role Phone Abbey Bagley PA-C Unavailable Unavailable Abbey Bagley PA-C Primary Care Provider Ino Ken MD Unavailable Encounter Details Date Type Department Care Team (Latest Contact Info) Description 05/02/2023 11:59 PM CDT Hospital Encounter [facility] Birthplace [address] [place] [phone] No Show Discharge Disposition: Home or Self Care Social History Tobacco Use Types Packs/Day Years Used Date Smoking Tobacco: Former Cigarettes 0.3 Q uit: 03/10/2023 Passive Smoke Exposure: Never Smokeless Tobacco: Never Alcohol Use Standard Drinks/Week Comments Not Currently 0 (1 standard drink = 0.6 oz pur e alcohol) Seldom PHQ-2 Answer Date Recorded PHQ-2 Score 0 04/14/2023 [place] Depression Scale Answer Date Recorded [place] Depression Score 13 03/10/2021 Last EPDS Self [...] Recorded In the last 10 days, have robetr u been in contact with someone who [...] tablet 0 05/04/2023 sertraline (ZOLOFT) 50 MG tabletIndications:Dain belle mild [...] documented as of this encounter Care Teams Tin Roller Hot Mill Relationship Specialty Start Date End Date Abbey Bagley PA-C PCP - General Physician Fishing Tool Supervisor 08/15/20 Abbey Bagley PA-C Physician Fishing Tool Supervisor 04/11/20 05/02/23 Ino Robbins MD [address] [place] [address] Assigned OBGYN Provider 01/01/23 documented as of this encounter
--- OUTSIDE RECORDS SUMMARY | 2023-11-10 15:12 | XMS_ITS | Clinical Summary ---
Author Name Unknown Organization [place] Address [address] [place] [address] Care Team Providers Care Manpower Development Specialist Manager Name Role Phone Abbey Bagley PA-C [...] Answer Date Recorded PHQ-2 Score 0 04/14/2023 [place] Depression Scale Answer Date Recorded Last EPDS [...] Advance Directives For more information, please contact: [phone] Latest Code Status on File Code Status [...] with patient/ legal decision maker Care Teams Manpower Development Specialist Manager Relationship Specialty Start Date End Date Abbey Bagley PA-C PCP - General Physician Diesel Powerplant Mechanic 08/15/20 Ino Robbins MD [address] [place] [address] Assigned OBGYN Provider 01/01/23
--- OUTSIDE RECORDS SUMMARY | 2023-11-10 15:12 | XMS_ITS | Encounter Summary ---
Author Name Unknown Organization [facility] Address [address] [place] [address] Phone Care Team Providers Care Sheet Folder Name Role Phone Unavailable Primary Care Provider Unavailabl e Reason for Visit * Prior Authorization (Routine) - Closed Specialty Diagnoses / Procedures Referred By Contac t Referred To Contact Psych Rehab Diagnoses Bipolar II disorder () Trauma and stressor-related disorder Procedures MOTHER BABY ENROLLMENT Jazmine Potter, [facility] [address] [place] [address] [address] Referral ID Status Reason Start Date Expiration Date Visits Re quested Visits Authorized [id number] Closed 05/09/2023 06/24/2023 105 105 Encounter Details Date Type Department Care Team Description 05/09/2023 10:15 AM CDT Psych Rehab [facility] [address] [place] [address] [phone] Karoline Benson MD [address] [facility] [address] [place], [place] [address] Dh, Mother Baby Discharge Disposition: Discharged to [...] LICSW - 05/09/2023 10:15 AM CDT Dept: [facility] Type of Service: Group Therapy Name of Group: Psychotherapy Process Group Provider/Group Chili Maker: Jazmine Potter LICSW Date of Service: 05/09/2023 Start Time: 10:15 AM Stop Time: 11:00 AM Number of Group Members Present: 2 Location of Service: Face to Face at [facility] REGISTERED NURSE RENAL SERVICES PROVIDED (if applicable): No Session Content [...] Department Care Team Description 11/24/2023 1:30 PM COMPUTER SCIENCE TEACHER Office [facility] [address] [address] Shahbaz Urias MD [address] [place] [address] [place] [address] Scheduled Discharge Disposition: Discharged to home or self care (routine discharge) 01/03/2024 3:00 PM CDT Telemedicine [facility] Sleep Center [address] [place] [address] Trip Nieto MD [address] [place] [address] Scheduled Discharge Disposition: Discharged to home or self care (routine discharge) documented as of this encounter Visit Diagnoses Diagnosis Bipolar II disorder ()- Primary Other bipolar disorders Trauma and stressor-related disorder documented in this encounter
--- OUTSIDE RECORDS SUMMARY | 2023-11-10 15:12 | XMS_ITS | Encounter Summary ---
Author Name Unknown Organization [facility] Address [address] [place] [address] Phone Care Team Providers Care Payloader Machine Operator Name Role Phone Unavailable Primary Care Provider Unavailabl e Reason for Visit * Prior Authorization (Routine) - Closed Specialty Diagnoses / Procedures Referred By Contac t Referred To Contact Psych Rehab Diagnoses Bipolar II disorder () Trauma and stressor-related disorder Procedures MOTHER BABY ENROLLMENT Jazmine Potter, [facility] [address] [place] [address] [address] Referral ID Status Reason Start Date Expiration Date Visits Re quested Visits Authorized [id number] Closed 05/09/2023 06/24/2023 105 105 Encounter Details Date Type Department Care Team Description 05/09/2023 1:45 PM CDT [facility] [address] [place] [address] [phone] Karoline Benson MD 701 [facility] [address] [place], [place] [phone] Dh, Mother Baby Discharge Disposition: Discharged to [...] LICSW - 05/09/2023 1:45 PM CDT Dept: [facility] Type of Service: Group Therapy Name of Group: Psychoeducation/Skills Group Provider/Group Securities Teller: Jazmine Potter LICSW Date of Service: 05/09/2023 Start Time: 1:45 PM Stop Time: 2:30 PM Number of Group Members Present: 5 Location of Service: Face to Face at [facility] Session Content (Intervention): The purpose of [...] Department Care Team Description 11/24/2023 1:30 PM SECONDARY SCHOOL SPECIAL ED TEACHER Office [facility] [address] [address] Shahbaz Urias MD [facility] [address] [place], [place] [phone] Scheduled Discharge Disposition: Discharged to home or self care (routine discharge) 01/03/2024 3:00 PM CDT Telemedicine [facility] Sleep Center [address] [place], [place] [address] Trip Nieto MD [address] [place] [address] Scheduled Discharge Disposition: Discharged to home or self care (routine discharge) documented as of this encounter Visit Diagnoses Diagnosis Bipolar II disorder ()- Primary Other bipolar disorders Trauma and stressor-related disorder documented in this encounter
--- OUTSIDE RECORDS SUMMARY | 2023-11-10 15:12 | XMS_ITS | Encounter Summary ---
Author Name Unknown Organization [facility] Address [address] [place] [address] Care Team Providers Care Document Control Supervisor Name Role Phone Abbey Bagley PA-C Unavailable Unavailable Abbey Bagley PA-C Primary Care Provider Americava Ino Mack MD Unavailable Reason for Visit * Auth/Cert (Routine) Specialty Diagnoses / Procedures Referred By Bernardo t Referred To Contact hide salter Diagnoses Indication for care in labor or delivery Indication for care in labor or delivery Rh [address] [place] [address] Referral ID Status Reason Start Date Expiration Date Visits Re quested Visits Authorized [id number] 1 1 Encounter Details Date Type Department Care Team (Late st Contact Info) Description 05/02/2023 8:35 PM CDT Anesthesia Event [facility] Birthplace [address] [place] [address] Wagner Lynn MD [facility] ANESTHESIA [address] [place], [place] [address] Deangelo Gamboa MD [facility] [address] [place], [place] [address] Anesthesia Record Procedure Summary Procedure Name Responsible [...] Answer Date Recorded PHQ-2 Score 0 04/14/2023 [place] Depression Scale Answer Date Recorded Last EPDS [...] nursing care at necessary intervals. [facility] ([facility]) ONLY: Pain Team Contact information: please page the Pain Team Via [employer]Search Pain. During daytime hours, please page the [...] and realistic alternatives discussed. Questions answered and patient/metals sales representative(s) expressed understanding. - Discussed: - Discussed [...] nursing care at necessary intervals. [facility] ([facility]) ONLY: ?? Pain Team Contact information: please page the Pain Team Via [employer]. Search Pain. During daytime hours, please page the attending first. At night please page the resident first. Wagner Lynn MD [place] ANESTHESIA documented in this encounter Visit Diagnoses [...] as of this encounter Care Teams Document Control Supervisor Relationship Specialty Start Date End Date Abbey Bagley PA-C PCP - General Physician Design Engineering Specialist 08/15/20 Abbey Bagley PA-C Physician Design Engineering Specialist 04/11/20 05/02/23 Ino Robbins MD [address] [place] [address] Assigned OBGYN Provider 01/01/23 documented as of this encounter
--- OUTSIDE RECORDS SUMMARY | 2023-11-10 15:12 | XMS_ITS | Encounter Summary ---
Author Name Unknown Organization [facility] Address [address] [place] [address] Care Team Providers Care Neuroscience Director Na Name Role Phone Abbey Bagley PA-C Unavailable [...] Answer Date Recorded PHQ-2 Score 0 04/14/2023 [place] Depression Scale Answer Date Recorded [place] Depression Score 13 03/10/2021 Last EPDS Self [...] documented as of this encounter Care Teams Neuroscience Director Na Relationship Specialty Start Date End Date Abbey Bagley PA-C PCP - General Physician Adjuster Leader 08/15/20 Abbey Bagley PA-C Physician Adjuster Leader 04/11/20 05/02/23 Ino Robbins MD [address] [place] [address] Assigned OBGYN Provider 01/01/23 documented as of this encounter
--- OUTSIDE RECORDS SUMMARY | 2023-11-10 15:12 | XMS_ITS | Encounter Summary ---
Author Name Unknown Organization [facility] Address [address] [place] [address] Phone Care Team Providers Care Marketing Automation Analyst Name Role Phone Unavailable Primary Care Provider Unavailabl e Reason for Visit * Prior Authorization (Routine) - Closed Specialty Diagnoses / Procedures Referred By Contac t Referred To Contact Psych Rehab Diagnoses Bipolar II disorder () Trauma and stressor-related disorder Procedures MOTHER BABY ENROLLMENT Jazmine Potter, [facility] [address] [place] [address] [address] Referral ID Status Reason Start Date Expiration Date Visits Re quested Visits Authorized [id number] Closed 05/09/2023 06/24/2023 105 105 Encounter Details Date Type Department Care Team Description 05/09/2023 12:30 PM CDT Psych [facility] [address] [place] [address] Karoline Benson MD [address] [facility] [address] [place], [place] [phone] Dh, Mother Baby Discharge Disposition: Discharged to [...] OTR/L - 05/09/2023 12:30 PM CDT Dept: [facility] Type of Service: Group Therapy Name of Group: Wellness Group Provider/Group Bilingual Spanish Inbound Sales: Alisha Hardy OTR/L Date of Service: 05/09/2023 Start Time: 12:45 PM Stop Time: 1:30 PM Number of Group Members Present: 5 Location of Service: Face to Face at [facility] QUALITY ASSURANCE SUPERVISOR TRIM SERVICES PROVIDED (if applicable): No Session Content [...] implement meaningful activity into daily plans. Alisha Hadry OTR/L, 05/23/2023 1:53 PM documented in this encounter Plan of Treatment Upcoming Encounters Date Type Department Care Team Description 11/24/2023 1:30 PM GLAZIER SUPERVISOR Office Visit [facility] Clinic [address] [address] Shahbaz Urias MD [address] [place] [address] Scheduled Discharge Disposition: Discharged to home or self care (routine discharge) 01/03/2024 3:00 PM CDT Telemedicine [facility] Sleep Center [address] [place], [place] [phone] Trip Nieto MD [address] [place] [address] Scheduled Discharge Disposition: Discharged to home or self care (routine discharge) documented as of this encounter Visit Diagnoses Diagnosis Bipolar II disorder ()- Primary Other bipolar disorders documented in this encounter
--- OUTSIDE RECORDS SUMMARY | 2023-11-10 15:13 | XMS_ITS | Encounter Summary ---
Author Name Unknown Organization [place] Address [address] [facility] [place] [address] Care Team Providers Care Ankle Patch Molder Name Role Phone Abbey Bagley PA-C Unavailable Unavailable Abbey Bagley PA-C Primary Care Provider Ino Ken MD Unavailable Reason for Visit * Reason Comments Vaginal Bleeding Encounter Details Date Type Department Care Team (Latest Contact Info) Description 04/09/2023 1:24 PM CDT - 04/09/2023 3:18 PM CDT Hospital Encounter [facility]place [address] [place] [phone] Christie Medellin MD [address] [place] [address] Discharge Disposition: Home or Self Care Social History Tobacco Use Types Packs/Day Years Used Date Smoking Tobacco: Some Days Cigarettes 0.3 Smokeless Tobacco: Never Alcohol Use Standard Drinks/Week Comments Not Currently 0 (1 standard drink = 0.6 oz pur e alcohol) Seldom PHQ-2 Answer Date Recorded PHQ-2 Score 4 03/30/2023 [place] Depression Scale Answer Date Recorded [place] Depression Score 13 03/10/2021 Last EPDS Self [...] (see handout) Call your doctor or nurse landscape crew leader if your baby is moving less [...] tablet 1 03/01/2023 sertraline (ZOLOFT) 50 MG tabletIndications:Dain belle mild [...] Orde r Schedule Non Stress Test by Provider/store sales manager Routine One Time for 1 Occurrences starting [...] mg/dL 04/09/2023 2:42 PM CDT LABORATORY Specific [facility] Urine 1.027 1.003 - 1.035 04/09/2023 2:42 [...] MD LAB - URINE ORDERABL ES LABORATORY [facility] [address] 1[address] floor, [address] [place] [address], [place] [phone] * (ABNORMAL) Wet preparation (04/09/2023 2:29 PM [...] MD LAB - MICRO GENERAL ORDERABLES LABORATORY [facility] [address] floor, [address] [place] [address], [place] [phone] * NON-STRESS TEST - HIM SCAN (04/09/2023 [...] documented as of this encounter Care Teams Ankle Patch Molder Relationship Specialty Start Date End Date Abbey Bagley PA-C PCP - General Physician Lining Baster 08/15/20 Abbey Bagley PA-C Physician Lining Baster 04/11/20 05/02/23 Ino Robbins MD [address] [place] [address] Assigned OBGYN Provider 01/01/23 documented as of this encounter
--- OUTSIDE RECORDS SUMMARY | 2023-11-10 15:13 | XMS_ITS | Encounter Summary ---
Author Name Unknown Organization [place] Address [address] [place] [address] Care Team Providers Care Farm Operations Technical Director Name Role Phone Abbey Bagley PA-C Unavailable Unavailable Abbey Bagley PA-C Primary Care Provider Ino Ken MD Unavailable [phone] Encounter Details Date Type Department Care Team (Latest Contact Info) Description 04/01/2023 Travel Social History Tobacco Use Types Packs/Day Years Used Date Smoking Tobacco: Some Days Cigarettes 0.3 Smokeless Tobacco: Never Alcohol Use Standard Drinks/Week Comments Not Currently 0 (1 standard drink = 0.6 oz pur e alcohol) Seldom PHQ-2 Answer Date Recorded PHQ-2 Score 4 03/30/2023 [place] Depression Scale Answer Date Recorded [place] Depression Score 13 03/10/2021 Last EPDS Self [...] documented as of this encounter Care Teams Farm Operations Technical Director Relationship Specialty Start Date End Date Abbey Bagley PA-C PCP - General Physician Knot Cutter 08/15/20 Abbey Bagley PA-C Physician Knot Cutter 04/11/20 05/02/23 Ino Robbins MD [address] [place] [address] Assigned OBGYN Provider 01/01/23 documented as of this encounter
--- OUTSIDE RECORDS SUMMARY | 2023-11-10 15:13 | XMS_ITS | Encounter Summary ---
Author Name Unknown Organization [place] Address [address] [facility] [place] [address] Care Team Providers Care Boat Officer Name Role Phone Abbey Balgey PA-C Unavailable Unavailable Abbey Bagley PA-C Primary Care Provider Unava ilable Ino Robbins MD Unavailable Reason for Visit * Reason Comments Care Encounter Details Date Type Department Care Team (Late st Contact Info) Description 03/30/2023 11:45 AM CDT Office Visit [facility] [address] [place] [address] Ino Robbins MD [address] [place], [place] [id number] care in third trimester (Primary Dx); HSV [...] Answer Date Recorded PHQ-2 Score 4 03/30/2023 [place] Depression Scale Answer Date Recorded [place] Depression Score 13 03/10/2021 Last EPDS Self [...] Body Mass Index 33.52 11/04/2022 3:15 PM BUSINESS ACCOUNT MANAGER documented in this encounter Progress Notes * Ino Robbins MD - 03/30/2023 11:45 AM CDT 22yo at 34w5d. Care has been intermittent due primarily to familial chaos. Moved to [place] and living arrangements were not as advertised. [...] Robbins MD LAB - BLOOD OR DERABLES DC LABORATORY [facility] [address] [facility], [address] [place] [address], [facility] [phone] * Treponema Abs w Reflex to RPR and Titer (03/30/2023 12:53 PM CDT) Pathologist [facility] Treponema Antibody Total Nonreactive Nonreactive 03/31/2023 9:50 AM CDT SPECIALTY CORE/PROT/EN DO Blood BLOOD SPECIMEN / Unknown Venipuncture / Unknown 03/30/2023 12:53 PM CDT 03/30/2023 12:53 PM CDT Ino Robbins MD LAB - BLOOD OR DERABLES UM SPECIALTY CORE/PROT/ENDO UM Specialty Core/Prot/Endo [address] [facility] [address] [facility], [address] [place] [address], [facility] [phone] * (ABNORMAL) CBC with platelets (03/30/2023 12:53 [...] LAB - BLOOD OR DERABLES RI LABORATORY [facility] [address], [address] [place] [address], [facility] [phone] documented in this encounter Visit Diagnoses Diagnosis care in third trimester- Primary HSV (herpes simplex virus) infection Herpes simplex without mention of complication documented in this encounter Additional Health Concerns Assessment Noted Time PHQ-9 Depression Total Score: 023 12:25 PM CDT documented as of this encounter Care Teams Boat Officer Relationship Specialty Start Date End Date Abbey Bagley PA-C PCP - General Physician Cloud Systems Administrator 08/15/20 Abbey Bagley PA-C Physician Cloud Systems Administrator 04/11/20 05/02/23 Ino Robbins MD [address] [place] [address] Assigned OBGYN Provider 01/01/23 documented as of this encounter
--- OUTSIDE RECORDS SUMMARY | 2023-11-10 15:13 | XMS_ITS | Encounter Summary ---
Author Name Unknown Organization [place] Address [address] [place] [address] Care Team Providers Care Recreation Therapy Director Name Role Phone Abbey Bagley PA-C [...] Answer Date Recorded PHQ-2 Score 2 11/26/2022 [place] Depression Scale Answer Date Recorded [place] Depression Score 13 03/10/2021 Last EPDS Self [...] as of this encounter Care Teams Recreation Therapy Director Relationship Specialty Start Date End Date Abbey Bagley PA-C PCP - General Physician Inspector Weights And Measures 08/15/20 Abbey Bagley PA-C Physician Inspector Weights And Measures 04/11/20 05/02/23 Ino Robbins MD [address] [place] [address] Assigned OBGYN Provider 01/01/23 documented as of this encounter
--- OUTSIDE RECORDS SUMMARY | 2023-11-10 15:13 | XMS_ITS | Encounter Summary ---
Author Name Unknown Organization [place] Address [address] [facility] [place] [address] Care Team Providers Care Grade Teacher Name Role Phone Abbey Bagley PA-C Unavailable Unavailable Abbey Bagley PA-C Primary Care Provider Unava ilable Ino Robbins MD Unavailable Reason for Visit * Reason Comments Medication Refill Encounter Details Date Type Department Care Team (Late st Contact Info) Description 02/10/[facility] [address] [place] [address] Ino Robbins MD [address] [place] [address] Medication Refill Social History Tobacco Use Types Packs/Day Years Used Date Smoking Tobacco: Some Days Cigarettes 0.3 Smokeless Tobacco: Never Alcohol Use Standard Drinks/Week Comments Not Currently 0 (1 standard drink = 0.6 oz pur e alcohol) Seldom PHQ-2 Answer Date Recorded PHQ-2 Score 2 11/26/2022 [place] Depression Scale Answer Date Recorded [place] Depression Score 13 03/10/2021 Last EPDS Self [...] 02/10/2023 10:55 AM CDT Prescription approved per [facility] Refill Protocol. Last OV: 01/19/23 which [...] documented as of this encounter Care Teams Grade Teacher Relationship Specialty Start Date End Date Abbey Bagley PA-C PCP - General Physician Social Work Therapist 08/15/20 Abbey Bagley PA-C Physician Social Work Therapist 04/11/20 05/02/23 Ino Robbins MD [facility] [place] [address] Assigned OBGYN Provider 01/01/23 documented as of this encounter
--- OUTSIDE RECORDS SUMMARY | 2023-11-10 15:13 | XMS_ITS | Encounter Summary ---
Author Name Unknown Organization [place] Address [facility] [place] [address] Care Team Providers Care Locomotive Crane Operator Helper Name Role Phone Abbey Bagley PA-C Unavailable Unavailable Abbey Bagley PA-C Primary Care Provider Ino Ken MD Unavailable [phone] Reason for Visit * Reason Comments Decreased Movement Abdominal Cramping Encounter Details Date Type Department Care Team (Latest Contact Info) Description 04/12/2023 3:31 PM CDT - 04/12/2023 5:05 PM CDT Hospital Encounter [facility] [address] [place] [address] Kelley Diane, DO [address] [place] [address] Encounter for triage in patient (Primary Dx) [...] Answer Date Recorded PHQ-2 Score 4 03/30/2023 [place] Depression Scale Answer Date Recorded [place] Depression Score 13 03/10/2021 Last EPDS Self [...] (see handout) Call your doctor or nurse fish bait picker if your baby is moving less than [...] sent through Care Everywhere. * Kick Counts (Turkmen) documented in this encounter Medications at Time [...] Notes * Plan of Care - Bernadette Blari RN - 04/12/2023 5:06 PM CDT Data: [...] the bathroom, patient seen on 04/09 at [facility] for similar complaints. MD updated [...] Orde r Schedule Non Stress Test by Provider/meal packer Routine One Time for 1 Occurrences starting [...] BIOPHY PROFILE W/O NST SINGLE W/LTD LOCATION: [facility] DATE: 04/12/2023 INDICATION: 36w4d with decreased movement COMPARISON: None. FINDINGS: Single living fetus, cephalic presentation. HEART RATE: 149 bpm. SDP 5.2 cm. PLACENTA: Anterior. No previa. CERVIX: Not visualized. 2/2 breathing 2/2 movements 2/2 tone 2/2 amniotic fluid Total biophysical profile 05/17 Procedure Note Danyell Hi MD - 04/12/2023 EXAM: US OB BIOPHY PROFILE W/O NST SINGLE W/LTD LOCATION: [facility] DATE: 04/12/2023 INDICATION: 36w4d with decreased movement [...] documented as of this encounter Care Teams Locomotive Crane Operator Helper Relationship Specialty Start Date End Date Abbey Bagley PA-C PCP - General Physician Dressage Judge 08/15/20 Abbey Bagley PA-C Physician Dressage Judge 04/11/20 05/02/23 Ino Robbins MD [address] [place] [address] Assigned OBGYN Provider 01/01/23 documented as of this encounter
--- OUTSIDE RECORDS SUMMARY | 2023-11-10 15:13 | XMS_ITS | Encounter Summary ---
Author Name Unknown Organization [place] Address [address] [place] [address] Care Team Providers Care Upper Trimmer Name Role Phone Abbey Bagley PA-C Unavailable Unavailable Abbey Bagley PA-C Primary Care Provider Ino Ken MD Unavailable [phone] Reason for Visit * Reason Comments Care Encounter Details Date Type Department Care Team (Late st Contact Info) Description 04/14/2023 4:15 PM CDT Office Visit [facility] [place] [address] [place] [phone] Kelley Diane, DO [address] [facility] [address] [place] [address] care in third trimester (Primary Dx) Social History Tobacco Use Types Packs/Day Years Used Date Smoking Tobacco: Some Days Cigarettes 0.3 Passive Smoke Exposure: Never Smokeless Tobacco: Never Alcohol Use Standard Drinks/Week Comments Not Currently 0 (1 standard drink = 0.6 oz pur e alcohol) Seldom PHQ-2 Answer Date Recorded PHQ-2 Score 0 04/14/2023 [place] Depression Scale Answer Date Recorded [place] Depression Score 13 03/10/2021 Last EPDS Self [...] weeks, then weekly till delivery Phone numbers [place]: Day/ night [phone] ask for ob triage Emergency: Call labor and delivery: [phone] What should I call about?? Contraction every [...] mother is at rest and focused on [facility] Address [address]igi [facility], [place] [address] Dr. Kelley Diane, DO PRESCRIPTION CLERK [facility] documented in this encounter Progress Notes [...] LABORATORY - 04/16/2023 9:09 AM CDT The CepStayfilmid Xpert GBS LB Assay, performed on the [employer]annabee?? Instrument Systems, is a qualitative in vitro [...] or monitor treatment for GBS infections. The CepStayfilmid Xpert GBS LB Assay is intended for use in hospital, reference or state laboratory settings. The device is not intended for [id number] use. Kelley Diane DO LAB - MICRO GENER AL ORDERABLES [facility] ID[facility] LABORATORY [facility] Inf. Diseases Diag. Lab [address] [facility], [address] [place] [address], [facility] [phone] documented in this encounter Visit Diagnoses Diagnosis care in third trimester- Primary documented in this encounter Additional Health Concerns Assessment Noted Time PHQ-9 Depression Total Score: 21 023 12:25 PM CDT documented as of this encounter Care Teams Upper Trimmer Relationship Specialty Start Date End Date Abbey Bagley PA-C PCP - General Physician Fur Drummer 08/15/20 Abbey Bagley PA-C Physician Fur Drummer 04/11/20 05/02/23 Ino Robbins MD [address] [place] [address] Assigned OBGYN Provider 01/01/23 documented as of this encounter
--- OUTSIDE RECORDS SUMMARY | 2023-11-10 15:13 | XMS_ITS | Encounter Summary ---
Author Name Unknown Organization [place] Address [address] [facility] [place] [address] Care Team Providers Care Curer Foam Rubber Name Role Phone Abbey Bagley PA-C Unavailable Unavailable Abbey Bagley PA-C Primary Care Provider Unava ilable Ino Robbins MD Unavailable Reason for Visit * Reason Comments Care Encounter Details Date Type Department Care Team (Late st Contact Info) Description 04/20/2023 1:30 PM CDT Office Visit [facility] [address] [place] [phone] Ino Robbins MD [address] [place] [address] care in third trimester (Primary Dx) Social History Tobacco Use Types Packs/Day Years Used Date Smoking Tobacco: Former Cigarettes 0.3 Q uit: 03/10/2023 Passive Smoke Exposure: Never Smokeless Tobacco: Never Alcohol Use Standard Drinks/Week Comments Not Currently 0 (1 standard drink = 0.6 oz pur e alcohol) Seldom PHQ-2 Answer Date Recorded PHQ-2 Score 0 04/14/2023 [place] Depression Scale Answer Date Recorded [place] Depression Score 13 03/10/2021 Last EPDS Self [...] documented as of this encounter Care Teams Curer Foam Rubber Relationship Specialty Start Date End Date Abbey Bagley PA-C PCP - General Physician Furniture Installer 08/15/20 Abbey Bagley PA-C Physician Furniture Installer 04/11/20 05/02/23 Ino Robbins MD [address] [place] [address] Assigned OBGYN Provider 01/01/23 documented as of this encounter
--- OUTSIDE RECORDS SUMMARY | 2023-11-10 15:13 | XMS_ITS | Encounter Summary ---
Author Name Unknown Organization [place] Address [address] [facility] [place] [address] Care Team Providers Care Lecturer In Computer Science Name Role Phone Abbey Bagley PA-C Unavailable Unavailable Abbey Bagley PA-C Primary Care Provider Unava ilable Ino Robbins MD Unavailable [phone] Reason for Visit * Reason Comments Med Change Request Encounter Details Date Type Department Care Team (Late st Contact Info) Description 03/01/2023 [facility] [address] [place] [address] Ino Robbins MD [address] [place] [address] Med Change Request Social History Tobacco Use Types Packs/Day Years Used Date Smoking Tobacco: Some Days Cigarettes 0.3 Smokeless Tobacco: Never Alcohol Use Standard Drinks/Week Comments Not Currently 0 (1 standard drink = 0.6 oz pur e alcohol) Seldom PHQ-2 Answer Date Recorded PHQ-2 Score 2 11/26/2022 [place] Depression Scale Answer Date Recorded [place] Depression Score 13 03/10/2021 Last EPDS Self [...] 03/01/2023 12:31 PM CDT Prescription approved per [facility] Refill Protocol. Diana Rodrigues RN documented in this encounter Plan of Treatment Not on file documented as of this encounter Visit Diagnoses Diagnosis HSV (herpes simplex virus) infection Herpes simplex without mention of complication documented in this encounter Additional Health Concerns Assessment Noted Time PHQ-9 Depression Total Score: 19 021 3:52 PM CDT documented as of this encounter Care Teams Lecturer In Computer Science Relationship Specialty Start Date End Date Abbey Bagley PA-C PCP - General Physician Line Haul Driver 08/15/20 Abbey Bagley PA-C Physician Line Haul Driver 04/11/20 05/02/23 Ino Robbins MD [address] [place] [address] Assigned OBGYN Provider 01/01/23 documented as of this encounter
--- OUTSIDE RECORDS SUMMARY | 2023-11-10 15:13 | XMS_ITS | Encounter Summary ---
Author Name Unknown Organization [place] Address [address] [place] [address] Care Team Providers Care Supervisor Backfilling Name Role Phone bAbey Bagley PA-C Unavailable Unavailable Abbey Bagley PA-C [...] Answer Date Recorded PHQ-2 Score 4 03/30/2023 [place] Depression Scale Answer Date Recorded [place] Depression Score 13 03/10/2021 Last EPDS Self [...] as of this encounter Care Teams Supervisor Backfilling Relationship Specialty Start Date End Date Abbey Bagley PA-C PCP - General Physician Heel Seat Laster 08/15/20 Abbey Bagley PA-C Physician Heel Seat Laster 04/11/20 05/02/23 Ino Robbins MD [address] [place] [address] Assigned OBGYN Provider 01/01/23 documented as of this encounter
--- OUTSIDE RECORDS SUMMARY | 2023-11-10 15:13 | XMS_ITS | Encounter Summary ---
Author Name Unknown Organization [place] Address [address] [place] [address] Care Team Providers Care Wire Sawyer Name Role Phone Abbey Bagley PA-C Unavailable Unavailable Abbey Bagley PA-C Primary Care Provider Ino Ken MD Unavailable [phone] Encounter Details Date Type Department Care Team [...] documented as of this encounter Care Teams Wire Sawyer Relationship Specialty Start Date End Date Abbey Bagley PA-C PCP - General Physician Personal Lines Underwriter 08/15/20 Abbey Bagley PA-C Physician Personal Lines Underwriter 04/11/20 05/02/23 Ino Robbins MD [address] [place] [address] Assigned OBGYN Provider 01/01/23 documented as of this encounter
--- OUTSIDE RECORDS SUMMARY | 2023-11-10 15:13 | XMS_ITS | Encounter Summary ---
Author Name Unknown Organization [place] Address [address] [facility] [place] [address] Care Team Providers Care Home Theater Specialist Name Role Phone Abbey Bagley PA-C Unavailable Unavailable Abbey Bagley PA-C Primary Care Provider Unava ilable Ino Robbins MD Unavailable Encounter Details Date Type Department Care Team (Late st Contact Info) Description 03/30/2023 Orders Only [facility] [place] [address] [facility] [address] [place] [address] Ino Robbins MD [address] [place] [address] Abnormal maternal glucose tolerance, antepartum (Primary Dx) Social History Tobacco Use Types Packs/Day Years Used Date Smoking Tobacco: Some Days Cigarettes 0.3 Smokeless Tobacco: Never Alcohol Use Standard Drinks/Week Comments Not Currently 0 (1 standard drink = 0.6 oz pur e alcohol) Seldom PHQ-2 Answer Date Recorded PHQ-2 Score 4 03/30/2023 [place] Depression Scale Answer Date Recorded [place] Depression Score 13 03/10/2021 Last EPDS Self [...] as of this encounter Care Teams Home Theater Specialist Relationship Specialty Start Date End Date Abbey Bagley PA-C PCP - General Physician Infrastructure Software Engineer 08/15/20 Abbey Bagley PA-C Physician Infrastructure Software Engineer 04/11/20 05/02/23 Ino Robbins MD [address] [place] [address] Assigned OBGYN Provider 01/01/23 documented as of this encounter
--- OUTSIDE RECORDS SUMMARY | 2023-11-10 15:13 | XMS_ITS | Encounter Summary ---
Author Name Unknown Organization [place] Address [address] [facility] [place] [address] Care Team Providers Care Beam Builder Helper Name Role Phone Abbey Bagley PA-C Unavailable Unavailable Abbey Bagley PA-C Primary Care Provider Ino Ken MD Unavailable Encounter Details Date Type Department Care Team (Late st Contact Info) Description 04/01/2023 8:30 AM CDT Lab [facility] [address] [place] [address] Abnormal maternal glucose tolerance, antepartum Social History Tobacco Use Types Packs/Day Years Used Date Smoking Tobacco: Some Days Cigarettes 0.3 Smokeless Tobacco: Never Alcohol Use Standard Drinks/Week Comments Not Currently 0 (1 standard drink = 0.6 oz pur e alcohol) Seldom PHQ-2 Answer Date Recorded PHQ-2 Score 4 03/30/2023 [place] Depression Scale Answer Date Recorded [place] Depression Score 13 03/10/2021 Last EPDS Self [...] LAB - BLOOD OR DERABLES U LABORATORY [facility] [address] [facility], [address] [place] [phone], [facility] [phone] * Gestational Glucose Tolerance Testing, 2 Hour (04/01/2023 10:38 AM CDT) Gestational GTT 2 Hr Post Dose 117 60 - 154 mg/dL 04/02/2023 12:23 AM CDT [facility] LABORATORY Blood BLOOD SPECIMEN / Unknown Venipuncture / Unknown 04/01/2023 10:38 AM CDT 04/01/2023 10:38 AM CDT Ino Robbins MD LAB - BLOOD OR DERABLES Performing Organization Address [facility] de Phone Number U LABORATORY [facility] [address] [facility], [address] [place] [phone], [facility] [phone] * Gestational Glucose Tolerance Testing, 1 Hour (04/01/2023 9:37 AM CDT) Gestational GTT 1 Hr Post Dose 151 60 - 179 mg/dL 04/02/2023 12:16 AM CDT U LABORATORY Blood BLOOD SPECIMEN / Unknown Venipuncture / Unknown 04/01/2023 9:37 AM CDT 04/01/2023 9:37 AM CDT Ino Robbins MD LAB - BLOOD OR DERABLES LABORATORY [facility] [address] [facility], [address] [place] [address], [facility] [phone] * Gestational Glucose Tolerance Testing, Fasting (04/01/2023 8:31 AM CDT) Gestational GTT Fasting 89 60 - 94 mg/dL 04/01/2023 7:17 PM CDT [facility] LAB[facility]ATORY Blood BLOOD SPECIMEN / Unknown Venipuncture / Unknown 04/01/2023 8:31 AM CDT 04/01/2023 8:35 AM CDT Ino Robbins MD LAB - BLOOD OR DERABLES [facility] LABORATORY [facility] Lab [address] [facility], [address] [place] [address], [facility] [phone] documented in this encounter Visit Diagnoses Diagnosis Abnormal maternal glucose tolerance, antepartum documented in this encounter Additional Health Concerns Assessment Noted Time PHQ-9 Depression Total Score: 21 023 12:25 PM CDT documented as of this encounter Care Teams Beam Builder Helper Relationship Specialty Start Date End Date Abbey Bagley PA-C PCP - General Physician Assembler Fishing Floats 08/15/20 Abbey Bagley PA-C Physician Assembler Fishing Floats 04/11/20 05/02/23 Ino Robbins MD [address] [place] [address] Assigned OBGYN Provider 01/01/23 documented as of this encounter
--- OUTSIDE RECORDS SUMMARY | 2023-11-10 15:13 | XMS_ITS | Encounter Summary ---
Author Name Unknown Organization [place] Address [address] [place] [address] Care Team Providers Care Morgue Librarian Name Role Phone Abbey Bagley PA-C Unavailable [...] Answer Date Recorded PHQ-2 Score 0 04/14/2023 [place] Depression Scale Answer Date Recorded [place] Depression Score 13 03/10/2021 Last EPDS Self [...] documented as of this encounter Care Teams Morgue Librarian Relationship Specialty Start Date End Date Abbey Bagley PA-C PCP - General Physician Process Control Programmer 08/15/20 Abbey Bagley PA-C Physician Process Control Programmer 04/11/20 05/02/23 Ino Robbins MD [address] [place] [address] Assigned OBGYN Provider 01/01/23 documented as of this encounter
--- OUTSIDE RECORDS SUMMARY | 2023-11-10 15:13 | XMS_ITS | Encounter Summary ---
Author Name Unknown Organization [place] Address [address] [place] [address] Care Team Providers Care Coal Trimmer Name Role Phone Abbey Bagley PA-C [...] Answer Date Recorded PHQ-2 Score 0 04/14/2023 [place] Depression Scale Answer Date Recorded [place] Depression Score 13 03/10/2021 Last EPDS Self [...] as of this encounter Care Teams Coal Trimmer Relationship Specialty Start Date End Date Abbey Bagley PA-C PCP - General Physician Non Destructive Tester 08/15/20 Abbey Bagley PA-C Physician Non Destructive Tester 04/11/20 05/02/23 Ino Robbins MD [address] [place] [address] Assigned OBGYN Provider 01/01/23 documented as of this encounter
--- OUTSIDE RECORDS SUMMARY | 2023-11-10 15:13 | XMS_ITS | Encounter Summary ---
Author Name Unknown Organization [place] Address [address] [facility] [place] [address] Care Team Providers Care Oil Furnace Installer Name Role Phone Abbey Bagley PA-C Unavailable Unavailable Abbey Bagley PA-C Primary Care Provider Ino Ken MD Unavailable [phone] Reason for Visit * Reason Comments Rule Out Labor Encounter Details Date Type Department Care Team (Latest Contact Info) Description 04/22/2023 12:14 PM CDT - 04/22/2023 3:10 PM CDT Hospital Encounter [facility] [address], [address] [place] [phone] Vanessa Lopes MD [address] [place] [address] Discharge Disposition: Home or Self Care Social History Tobacco Use Types Packs/Day Years Used Date Smoking Tobacco: Former Cigarettes 0.3 Q uit: 03/10/2023 Passive Smoke Exposure: Never Smokeless Tobacco: Never Alcohol Use Standard Drinks/Week Comments Not Currently 0 (1 standard drink = 0.6 oz pur e alcohol) Seldom PHQ-2 Answer Date Recorded PHQ-2 Score 0 04/14/2023 [place] Depression Scale Answer Date Recorded [place] Depression Score 13 03/10/2021 Last EPDS Self [...] day. Activity: Call your doctor or nurse platform worker if your baby is moving less than [...] Evaluation: [facility] [place] [facility] [place]-patient was being seen by [...] documented as of this encounter Care Teams Oil Furnace Installer Relationship Specialty Start Date End Date Abbey Bagley PA-C PCP - General Physician Cloth Shearer 08/15/20 Abbey Bagley PA-C Physician Cloth Shearer 04/11/20 05/02/23 Ino Robbins MD [address] [place] [address] Assigned OBGYN Provider 01/01/23 documented as of this encounter
--- OUTSIDE RECORDS SUMMARY | 2023-11-10 15:14 | XMS_ITS | Encounter Summary ---
Author Name Unknown Organization [place] Address [facility] [place] [address] Care Team Providers Care Yard Cleaner Name Role Phone Abbey Bagley PA-C Unavailable Unavailable Abbey Bagley PA-C Primary Care Provider Kelley Ko DO Unavailable [phone] Encounter Details Date Type Department Care Team (Latest Contact Info) Description 12/12/2022 Travel Social History Tobacco Use Types Packs/Day Years Used Date Smoking Tobacco: Some Days Cigarettes 0.3 Smokeless Tobacco: Never Alcohol Use Standard Drinks/Week Comments Not Currently 0 (1 standard drink = 0.6 oz pur e alcohol) Seldom PHQ-2 Answer Date Recorded PHQ-2 Score 2 11/26/2022 [place] Depression Scale Answer Date Recorded [place] Depression Score 13 03/10/2021 Last EPDS Self [...] Coronavirus/COVID-19? No / Unsure 12/12/2022 12:48 PM COMPLAINT EVALUATION OFFICER documented as of this encounter Plan of Treatment Not on file documented as of this encounter Visit Diagnoses Not on filedocumented in this encounter Additional Health Concerns Assessment Noted Time PHQ-9 Depression Total Score: 19 05/14/ 021 3:52 PM CDT documented as of this encounter Care Teams Yard Cleaner Relationship Specialty Start Date End Date Abbey Bagley PA-C PCP - General Physician Baggage Smasher 08/15/20 Abbey Bagley PA-C Physician Baggage Smasher 04/11/20 05/02/23 Kelley Diane DO [address] [address] Assigned OBGYN Provider 12/04/22 documented as of this encounter
--- OUTSIDE RECORDS SUMMARY | 2023-11-10 15:14 | XMS_ITS | Encounter Summary ---
Author Name Unknown Organization [place] Address [address] [facility] [place] [address] Care Team Providers Care Cabana Attendant Name Role Phone Abbey Bagley PA-C Unavailable Unavailable Abbey Bagley PA-C Primary Care Provider Kelley Ko DO Unavailable [phone] Reason for Referral * Diagnostic Imaging Ultrasound (Routine) - Pending Review Specialty Diagnoses / Procedures Referred By Bernardo t Referred To Contact Radiology. Diagnoses care in second trimester Procedures US OB >14 Weeks Follow Up Ino Robbins MD [address] [place] [address] Referral ID Status Reason Start Date Expiration Date V isits Requested Visits Authorized [id number] Pending Review 12/14/2022 12/14/2023 1 1 HER OF THE EMOTIONALLY DISTURBED Encounter Details Date Type Department Care Team (Late st Contact Info) Description 12/14/2022 Orders Only [facility] [address] [place] [address] Ino Robbins MD [address] [place], [place] [id number] care in second trimester (Primary Dx) Social History Tobacco Use Types Packs/Day Years Used Date Smoking Tobacco: Some Days Cigarettes 0.3 Smokeless Tobacco: Never Alcohol Use Standard Drinks/Week Comments Not Currently 0 (1 standard drink = 0.6 oz pur e alcohol) Seldom PHQ-2 Answer Date Recorded PHQ-2 Score 2 11/26/2022 [place] Depression Scale Answer Date Recorded [place] Depression Score 13 03/10/2021 Last EPDS Self [...] Coronavirus/COVID-19? No / Unsure 12/13/2022 10:57 AM TEACHER OF THE EMOTIONALLY DISTURBED documented as of this encounter Plan of [...] from the original result was not included. [facility] ULTRASOUND - OB FOLLOW UP > 14 [...] documented as of this encounter Care Teams Cabana Attendant Relationship Specialty Start Date End Date Abbey Bagley PA-C PCP - General Physician Plastic Cablemaking Machine Operator 08/15/20 Abbey Bagley PA-C Physician Plastic Cablemaking Machine Operator 04/11/20 05/02/23 Kelley Diane DO [address] [address] Assigned OBGYN Provider 12/04/22 documented as of this encounter
--- OUTSIDE RECORDS SUMMARY | 2023-11-10 15:14 | XMS_ITS | Encounter Summary ---
Author Name Unknown Organization [place] Address [address] [place] [address] Care Team Providers Care Rfid Manager Name Role Phone Abbey Bagley PA-C [...] Answer Date Recorded PHQ-2 Score 2 11/26/2022 [place] Depression Scale Answer Date Recorded [place] Depression Score 13 03/10/2021 Last EPDS Self [...] documented as of this encounter Care Teams Rfid Manager Relationship Specialty Start Date End Date Abbey Bagley PA-C PCP - General Physician Mainspring Winder And Oiler 08/15/20 Abbey Bagley PA-C Physician Mainspring Winder And Oiler 04/11/20 05/02/23 Ino Robbins MD [address] [place] [address] Assigned OBGYN Provider 01/01/23 documented as of this encounter
--- OUTSIDE RECORDS SUMMARY | 2023-11-10 15:14 | XMS_ITS | Encounter Summary ---
Author Name Unknown Organization [place] Address [address] [facility] [place] [address] Care Team Providers Care Assembler Seat Name Role Phone Abbey Bagley PA-C Unavailable Unavailable Abbey Bagley PA-C Primary Care Provider Unava ilable Ino Robbins MD Unavailable Reason for Visit * Reason Comments Ultrasound L2-LVOT not well see n on outside scan Encounter Details Date Type Department Care Team (Late st Contact Info) Description 01/25/2023 10:45 AM CDT Office Visit [facility] [place] [address] [facility] [address] [place] [address] Ino Robbins MD [address] [place] [address] Camden Flores MD [address] [place] [address] Suspected anomaly, antepartum, single or unspecified fetus (Primary Dx); Encounter for follow-up ultrasound of anatomy Social History Tobacco Use Types Packs/Day Years Used Date Smoking Tobacco: Some Days Cigarettes 0.3 Smokeless Tobacco: Never Alcohol Use Standard Drinks/Week Comments Not Currently 0 (1 standard drink = 0.6 oz pur e alcohol) Seldom PHQ-2 Answer Date Recorded PHQ-2 Score 2 11/26/2022 [place] Depression Scale Answer Date Recorded [place] Depression Score 13 03/10/2021 Last EPDS Self [...] for details of today's US at the [facility]. Camden Flores MD Maternal- Medicine documented in this encounter Plan of Treatment Not on file documented as of this encounter Visit Diagnoses Diagnosis Suspected anomaly, antepartum, single or unspecified fetus- Primary Encounter for follow-up ultrasound of anatomy documented in this encounter Additional Health Concerns Assessment Noted Time PHQ-9 Depression Total Score: 19 021 3:52 PM CDT documented as of this encounter Care Teams Assembler Seat Relationship Specialty Start Date End Date Abbey Bagley PA-C PCP - General Physician Shell Mold Bonding Machine Operator 08/15/20 Abbey Bagley PA-C Physician Shell Mold Bonding Machine Operator 04/11/20 05/02/23 Ino Robbins MD [address] [place] [address] Assigned OBGYN Provider 01/01/23 documented as of this encounter
--- OUTSIDE RECORDS SUMMARY | 2023-11-10 15:14 | XMS_ITS | Encounter Summary ---
Author Name Unknown Organization [place] Address [address] [place] [address] Care Team Providers Care Hvac R Instructor Name Role Phone Abbey Bagley PA-C [...] Answer Date Recorded PHQ-2 Score 2 11/26/2022 [place] Depression Scale Answer Date Recorded [place] Depression Score 13 03/10/2021 Last EPDS Self [...] Coronavirus/COVID-19? No / Unsure 11/26/2022 1:26 PM MEDICAL EDITOR documented as of this encounter Plan of Treatment Not on file documented as of this encounter Visit Diagnoses Not on filedocumented in this encounter Additional Health Concerns Assessment Noted Time PHQ-9 Depression Total Score: 19 021 3:52 PM CDT documented as of this encounter Care Teams Hvac R Instructor Relationship Specialty Start Date End Date Abbey Bagley PA-C PCP - General Physician Broadcast Traffic Coordinator 08/15/20 Abbey Bagley PA-C Physician Broadcast Traffic Coordinator 04/11/20 05/02/23 documented as of this encounter
--- OUTSIDE RECORDS SUMMARY | 2023-11-10 15:14 | XMS_ITS | Encounter Summary ---
Author Name Unknown Organization [place] Address [facility] [place] [address] Care Team Providers Care Electrical Accessories Assembler Name Role Phone Abbey Bagley PA-C Unavailable Unavailable Abbey Bagley PA-C Primary Care Provider Unava ilable Ino Robbins MD Unavailable Reason for Referral * Consultation (Routine) - Pending Review Specialty Diagnoses / Procedures Referred By Bernardo t Referred To Contact Diagnoses care in second trimester Ino Robbins MD [address] [place] [address] [facility] [address] [place] [address] Referral ID Status Reason Start Date Expiration Date V isits Requested Visits Authorized [id number] Pending Review 01/19/2023 01/19/2024 1 1 Question Answer Preferred Location: [facility] 05/06/2023 Ultrasound Comprehensive US (>than 18 [...] where they were done to arrange for excelsior picker prior to your scheduled appointment. Any new CT, MRI or other procedures ordered by your specialist must be performed at a [facility] or coordinated by your clinic's referral office. >> List of current medications >> This referral request >> Any documents/labs given to you for this referral Reason for Visit * Reason Comments Care Encounter Details Date Type Department Care Team (Late st Contact Info) Description 01/19/2023 1:30 PM CDT Office Visit [facility] [address] [place] [address] Ino Robbins MD [facility] [place] [address] HSV (herpes simplex virus) infection (Primary Dx); [...] Body Mass Index 32.36 11/04/2022 3:15 PM NURSERY ATTENDANT documented in this encounter Progress Notes * Ino Robbins MD - 01/19/2023 1:30 PM CDT 22yo at 24w5d. Was planning to relocate to [place] but found housing conditions filthy. Ants,mold, etc. Has had diarrhea off and on. Concerned about an intestinal parasite. Will check stool culture and O&P. Needs follow up U/S to visualize LVOT not yet well seen. MFM referral placed. Unsure if she plans to remain in [place] for delivery. RTC 4 weeks with GCT documented in this encounter Nursing Notes * Shelly Pedraza CMA - 01/19/2023 1:30 PM CDT Chief Complaint Patient presents with ??? Care 24w5d Moving back from [place] initial BP 114/74 Wt 93.7 kg (206 [...] performed by multiplexed, qualitative PCR using the [place] Enteric Pathogens Nucleic Acid Test. Results should [...] 2. Ino Robbins MD LAB - MICRO [employer] ORDERABLES Performing Organization Address City/[facility] Co de Phone Number [facility] Inf. Diseases Diag. Lab [address] [facility][1], Room [address] [address], [facility] [phone] * Ova and Parasite Exam Routine (01/19/2023 2:50 PM CDT) [facility] OVA AND PARASITE EXAM Negative Negative [...] method. Ino Robbins MD LAB - MICRO [employer] ORDERABLES [facility] Inf. Diseases Diag. Lab [address] [facility][1], [address] [address], [facility] [phone] * (ABNORMAL) Wet prep - Clinic Collect [...] - MICRO GE NERAL ORDERABLES RI LABORATORY [facility] Lab [address] [facility], [address] [place] [address] [phone] documented in this encounter Visit Diagnoses Diagnosis HSV (herpes simplex virus) infection- Primary Herpes simplex without mention of complication Current mild episode of major depressive disorder, unspecified whether recurrent (H24) care in second trimester documented in this encounter Additional Health Concerns Assessment Noted Time PHQ-9 Depression Total Score: 19 08/2 021 3:52 PM CDT documented as of this encounter Care Teams Electrical Accessories Assembler Relationship Specialty Start Date End Date Abbey Bagley PA-C PCP - General Physician Traffic Sign Erection Supervisor 08/15/20 Abbey Bagley PA-C Physician Traffic Sign Erection Supervisor 04/11/20 05/02/23 Ino Robbins MD [address] [place] [address] Assigned OBGYN Provider 01/01/23 documented as of this encounter
--- OUTSIDE RECORDS SUMMARY | 2023-11-10 15:14 | XMS_ITS | Encounter Summary ---
Author Name Unknown Organization [place] Address [facility] [place] [address] Care Team Providers Care Power Chisel Operator Name Role Phone Abbey Bagley PA-C Unavailable Unavailable Abbey Bagley PA-C Primary Care Provider Kelley Ko DO Unavailable [phone] Encounter Details Date Type Department Care Team (Latest Contact Info) Description 12/24/2022 Travel Social History Tobacco Use Types Packs/Day Years Used Date Smoking Tobacco: Some Days Cigarettes 0.3 Smokeless Tobacco: Never Alcohol Use Standard Drinks/Week Comments Not Currently 0 (1 standard drink = 0.6 oz pur e alcohol) Seldom PHQ-2 Answer Date Recorded PHQ-2 Score 2 11/26/2022 [place] Depression Scale Answer Date Recorded [place] Depression Score 13 03/10/2021 Last EPDS Self [...] documented as of this encounter Care Teams Power Chisel Operator Relationship Specialty Start Date End Date Abbey Bagley PA-C PCP - General Physician Renal Dialysis Technician 08/15/20 Abbey Bagley PA-C Physician Renal Dialysis Technician 04/11/20 05/02/23 Kelley Diane DO [address] [address] Assigned OBGYN Provider 12/04/22 documented as of this encounter
--- OUTSIDE RECORDS SUMMARY | 2023-11-10 15:14 | XMS_ITS | Encounter Summary ---
Author Name Unknown Organization [place] Address [facility] [place] [address] Care Team Providers Care Frame And Scrap Crusher Name Role Phone Abbey Bagley PA-C Unavailable Unavailable Abbey Bagley PA-C Primary Care Provider Kelley Ko DO Unavailable [phone] Encounter Details Date Type Department Care Team (Latest Contact Info) Description 12/30/2022 Travel Social History Tobacco Use Types Packs/Day Years Used Date Smoking Tobacco: Some Days Cigarettes 0.3 Smokeless Tobacco: Never Alcohol Use Standard Drinks/Week Comments Not Currently 0 (1 standard drink = 0.6 oz pur e alcohol) Seldom PHQ-2 Answer Date Recorded PHQ-2 Score 2 11/26/2022 [place] Depression Scale Answer Date Recorded [place] Depression Score 13 03/10/2021 Last EPDS [...] documented as of this encounter Care Teams Frame And Scrap Crusher Relationship Specialty Start Date End Date Abbey Bagley PA-C PCP - General Physician Headline Writer 08/15/20 Abbey Bagley PA-C Physician Headline Writer 04/11/20 05/02/23 Kelley Diane DO [address] [address] Assigned OBGYN Provider 12/04/22 documented as of this encounter
--- OUTSIDE RECORDS SUMMARY | 2023-11-10 15:14 | XMS_ITS | Encounter Summary ---
Author Name Unknown Organization [place] Address [facility] [place] [address] Care Team Providers Care World Designer Name Role Phone Abbey Bagley PA-C Unavailable Unavailable Abbey Bagley PA-C Primary Care Provider Kelley Ko DO Unavailable [phone] Reason for Visit * Reason Comments Care Encounter Details Date Type Department Care Team (Late st Contact Info) Description 12/24/2022 1:30 PM CDT Office Visit [address] [place] [address] Ino Robbins MD [address] [place], [place] [address] care in second trimester (Primary Dx) Social History Tobacco Use Types Packs/Day Years Used Date Smoking Tobacco: Some Days Cigarettes 0.3 Smokeless Tobacco: Never Tobacco Cessation:Ready to Q uit: Not Asked; Counseling Given: Not Answered Alcohol Use Standard Drinks/Week Comments Not Currently 0 (1 standard drink = 0.6 oz pur e alcohol) Seldom PHQ-2 Answer Date Recorded PHQ-2 Score 2 11/26/2022 [place] Depression Scale Answer Date Recorded [place] Depression Score 13 03/10/2021 Last EPDS Self [...] Body Mass Index 31.48 11/04/2022 3:15 PM COMPETENCY EVALUATED NURSE AIDE documented in this encounter Progress Notes * Ino Robbins MD - 12/24/2022 1:30 PM CDT 22yo at 21w0d. Relocating to [place] at the end of the month. Has [...] documented as of this encounter Care Teams World Designer Relationship Specialty Start Date End Date Abbey Bagley PA-C PCP - General Physician Travel Registered Nurse Oncology 08/15/20 Abbey Bagley PA-C Physician Travel Registered Nurse Oncology 04/11/20 05/02/23 Kelley Diane DO [address] [address] Assigned OBGYN Provider 12/04/22 documented as of this encounter
--- OUTSIDE RECORDS SUMMARY | 2023-11-10 15:14 | XMS_ITS | Encounter Summary ---
Author Name Unknown Organization [place] Address [address] [facility] [place] [address] Care Team Providers Care Safety Specialist Name Role Phone Abbey Bagley PA-C Unavailable Unavailable Abbey Bagley PA-C Primary Care Provider UnaKelley Guillaume DO Unavailable [phone] Ino Robbins MD Unavailable [phone] Encounter Details Date Type Department Care Team (Late st Contact Info) Description 12/07/2022 [facility] Medical Advice [facility] [address] [place] [phone] Diana Raieny, RN Social History Tobacco Use Types Packs/Day Years Used Date Smoking Tobacco: Some Days Cigarettes 0.3 Smokeless Tobacco: Never Alcohol Use Standard Drinks/Week Comments Not Currently 0 (1 standard drink = 0.6 oz pur e alcohol) Seldom PHQ-2 Answer Date Recorded PHQ-2 Score 2 11/26/2022 [place] Depression Scale Answer Date Recorded [place] Depression Score 13 03/10/2021 Last EPDS Self [...] Coronavirus/COVID-19? No / Unsure 11/26/2022 1:26 PM CONSTRUCTION CONTROLLER documented as of this encounter Plan of Treatment Not on file documented as of this encounter Visit Diagnoses Not on filedocumented in this encounter Additional Health Concerns Assessment Noted Time PHQ-9 Depression Total Score: 19 021 3:52 PM CDT documented as of this encounter Care Teams Safety Specialist Relationship Specialty Start Date End Date Abbey Bagley PA-C PCP - General Physician Customer Experience Specialist 08/15/20 Abbey Bagley PA-C Physician Customer Experience Specialist 04/11/20 05/02/23 Kelley Diane DO [address] [address] Assigned OBGYN Provider 12/04/22 Ino Robbins MD [address] [place] [address] Assigned OBGYN Provider 01/01/23 documented as of this encounter
--- OUTSIDE RECORDS SUMMARY | 2023-11-10 15:14 | XMS_ITS | Encounter Summary ---
Author Name Unknown Organization [place] Address [address] [place] [address] Care Team Providers Care Community Development Planner Name Role Phone Abbey Bagley PA-C Unavailable Unavailable Abbey Bagley PA-C Primary Care Provider Kelley Ko DO Unavailable Reason for Visit * Diagnostic Imaging Ultrasound (Routine) - Pending Review Specialty Diagnoses / Procedures Referred By Bernardo belle Referred To Contact Radiology. Diagnoses care in second trimester Procedures US OB >14 Weeks Follow Up Ino Robbins MD [address] [place] [address] Referral ID Status Reason Start Date Expiration Date V isits Requested Visits Authorized [id number] Pending Review 12/14/2022 12/14/2023 1 1 Encounter Details Date Type Department Care Team (Late st Contact Info) Description 12/30/2022 3:40 PM CDT Ancillary Procedure [address] [address] Ino Robbins MD [address] [place], [place] [id number] care in second trimester Social History Tobacco Use Types Packs/Day Years Used Date Smoking Tobacco: Some Days Cigarettes 0.3 Smokeless Tobacco: Never Alcohol Use Standard Drinks/Week Comments Not Currently 0 (1 standard drink = 0.6 oz pur e alcohol) Seldom PHQ-2 Answer Date Recorded PHQ-2 Score 2 11/26/2022 [place] Depression Scale Answer Date Recorded [place] Depression Score 13 03/10/2021 Last EPDS Self [...] from the original result was not included. [facility] ULTRASOUND - OB FOLLOW UP [...] as of this encounter Care Teams Community Development Planner Relationship Specialty Start Date End Date Abbey Bagley PA-C PCP - General Physician Second Cook And Baker 08/15/20 Abbey Bagley PA-C Physician Second Cook And Baker 04/11/20 05/02/23 Kelley Diane DO [address] [address] Assigned OBGYN Provider 12/04/22 documented as of this encounter
--- OUTSIDE RECORDS SUMMARY | 2023-11-10 15:14 | XMS_ITS | Encounter Summary ---
Author Name Unknown Organization [place] Address [address] [place] [address] Care Team Providers Care Timber Mill Worker Name Role Phone Abbey Bagley PA-C Unavailable Unavailable Abbey Bagley PA-C Primary Care Provider Unava ilable Pawel Guardado MD Unavailable Reason for Referral * Diagnostic Imaging Ultrasound (Routine) - Pending Review Specialty Diagnoses / Procedures Referred By Contac t Referred To Contact Radiology. Diagnoses related condition, antepartum Procedures [facility] US Pawel Forte MD [address] [place] [address] Referral ID Status Reason Start Date Expiration Date V isits Requested Visits Authorized [id number] Pending Review 01/19/2023 01/19/2024 1 1 Reason for Visit * Diagnostic Imaging Ultrasound (Routine) - Pending Review Specialty Diagnoses / Procedures Referred By Contac t Referred To Contact Radiology. Diagnoses related condition, antepartum Procedures [facility] US Pawel Forte MD [address] [place] [address] Referral ID Status Reason Start Date Expiration Date V isits Requested Visits Authorized [id number] Pending Review 01/19/2023 01/19/2024 1 1 Encounter Details Date Type Department Care Team (Late st Contact Info) Description 01/25/2023 10:11 AM CDT - 01/25/2023 11:59 PM CDT Hospital Encounter [facility] [address] [facility] [address] [place] [address] Pawel Guardado MD [address] [place] [address] Camden Flores MD [address] [place] [address] [address] [place], [place] [id number] related condition, antepartum Discharge Disposition: Home or Self Care Social History Tobacco Use Types Packs/Day Years Used Date Smoking Tobacco: Some Days Cigarettes 0.3 Smokeless Tobacco: Never Alcohol Use Standard Drinks/Week Comments Not Currently 0 (1 standard drink = 0.6 oz pur e alcohol) Seldom PHQ-2 Answer Date Recorded PHQ-2 Score 2 11/26/2022 [place] Depression Scale Answer Date Recorded [place] Depression Score 13 03/10/2021 Last EPDS Self [...] Procedure Name Priority Date/Time Associated Diagnosis Comments [facility] US COMPREHENSIVE SINGLE Routine 01/25/2023 11:28 AM CDT related condition, antepartum documented in this encounter Results * [facility] US Comprehensive Single (01/25/2023 11:28 AM [...] JACK Study Date: 01/25/2023 10:19am Pat. NO: [id number] Referring ??MD: PAWEL GUARDADO Site: [facility] Surveyor Instrument Assistant: Arthur Herman RDMS : 2000 Age: 22 [...] lb 13 ? oz EFW by ?Hadlock ([id number]) Head / Face / Neck Biometry: Case Mgr ? 7.7 ? mm CM ?6.9 ? [...] vena cava. Inferior vena cava. 3-vessel view. 5-zxpidj-kmqyuan view. ? Cardiac position. Cardiac size. Cardiac [...] Pat. Name:Loki JACK Date:01/25/2023 10:19am Pat. NO: [id number] MD:PAWEL GUARDADO [facility]Arthur Herman RDMS :2000Age:22 ----- INDICATION ----- [...] 1 lb 13 oz EFW by Hadlock ([id number]) Head / Face / Neck Biometry: Case Mgr 7.7 mm CM 6.9 mm ANATOMY ----- The following structures appear normal: Head / Neck Cranium. Head size. Head shape.Lateral ventricles. Choroid plexus. Midline falx. Cavum septi pellucidi.Cerebellum. Cisterna magna. Parenchyma. Thalami. Vermis. Neck. Face Lips. Heart / Thorax RVOT view. LVOT view. Situs. Aorticarch view. Bicaval view. Superior vena cava. Inferior vena cava. 3-vesselview. 8-plgvfa-qmpixfo view. Cardiac position. Cardiac size.Cardiac rhythm. Diaphragm. [...] normal for gestational age. Pawel Guardado MD [facility] ORD RADHA documented in this encounter Visit Diagnoses Diagnosis related condition, antepartum documented in this encounter Additional Health Concerns Assessment Noted Time PHQ-9 Depression Total Score: 19 021 3:52 PM CDT documented as of this encounter Care Teams Timber Mill Worker Relationship Specialty Start Date End Date Abbey Bagley PA-C PCP - General Physician Macadam Raker 08/15/20 Abbey Bagley PA-C Physician Macadam Raker 04/11/20 05/02/23 Pawel Guardado MD [facility] [address] [address] Assigned OBGYN Provider 01/01/23 documented as of this encounter
--- OUTSIDE RECORDS SUMMARY | 2023-11-10 15:14 | XMS_ITS | Encounter Summary ---
Author Name Unknown Organization [place] Address [address] [facility] [address] Care Team Providers Care Color Room Attendant Name Role Phone Abbey Bagley PA-C Unavailable Unavailable Abbey Bagley PA-C Primary Care Provider Unava ilIno Reynolds MD Unavailable Reason for Visit * Reason Comments Ultrasound L2-LVOT not well see n Encounter Details Date Type Department Care Team (Late st Contact Info) Description 01/19/2023 PRE VISIT [facility] [place] [address] [facility] [address] [place] [address] Michelle Avina, LUCÍA Ultrasound (L2-LVOT not well seen) Social History Tobacco Use Types Packs/Day Years Used Date Smoking Tobacco: Some Days Cigarettes 0.3 Smokeless Tobacco: Never Alcohol Use Standard Drinks/Week Comments Not Currently 0 (1 standard drink = 0.6 oz pur e alcohol) Seldom PHQ-2 Answer Date Recorded PHQ-2 Score 2 11/26/2022 [place] Depression Scale Answer Date Recorded [place] Depression Score 13 03/10/2021 Last EPDS Self [...] documented as of this encounter Care Teams Color Room Attendant Relationship Specialty Start Date End Date Abbey Bagley PA-C PCP - General Physician L Tacker 08/15/20 Abbey Bagley PA-C Physician L Tacker 04/11/20 05/02/23 Ino Robbins MD [facility] [place] [address] [place] [address] Assigned OBGYN Provider 01/01/23 documented as of this encounter
--- OUTSIDE RECORDS SUMMARY | 2023-11-10 15:14 | XMS_ITS | Encounter Summary ---
Author Name Unknown Organization [place] Address [facility] [place] [address] Care Team Providers Care Mri Ct Tech Name Role Phone Abbey Bagley PA-C Unavailable Unavailable Abbey Bagley PA-C Primary Care Provider Kelley Ko DO Unavailable [phone] Encounter Details Date Type Department Care Team (Latest Contact Info) Description 12/13/2022 Travel Social History Tobacco Use Types Packs/Day Years Used Date Smoking Tobacco: Some Days Cigarettes 0.3 Smokeless Tobacco: Never Alcohol Use Standard Drinks/Week Comments Not Currently 0 (1 standard drink = 0.6 oz pur e alcohol) Seldom PHQ-2 Answer Date Recorded PHQ-2 Score 2 11/26/2022 [place] Depression Scale Answer Date Recorded [place] Depression Score 13 03/10/2021 Last EPDS Self [...] Coronavirus/COVID-19? No / Unsure 12/13/2022 10:57 AM TRIM TECHNICIAN documented as of this encounter Plan of Treatment Not on file documented as of this encounter Visit Diagnoses Not on filedocumented in this encounter Additional Health Concerns Assessment Noted Time PHQ-9 Depression Total Score: 19 021 3:52 PM CDT documented as of this encounter Care Teams Mri Ct Tech Relationship Specialty Start Date End Date Abbey Bagley PA-C PCP - General Physician Unit Coordinator 08/15/20 Abbey Bagley PA-C Physician Unit Coordinator 04/11/20 05/02/23 Kelley Diane DO [address] [address] Assigned OBGYN Provider 12/04/22 documented as of this encounter
--- OUTSIDE RECORDS SUMMARY | 2023-11-10 15:14 | XMS_ITS | Encounter Summary ---
Author Name Unknown Organization [place] Address [address] [place] [address] Care Team Providers Care Panel Installer Name Role Phone Abbey Bagley PA-C [...] Answer Date Recorded PHQ-2 Score 2 11/26/2022 [place] Depression Scale Answer Date Recorded [place] Depression Score 13 03/10/2021 Last EPDS [...] documented as of this encounter Care Teams Panel Installer Relationship Specialty Start Date End Date Abbey Bagley PA-C PCP - General Physician Disease Management Nurse 08/15/20 Abbey Bagley PA-C Physician Disease Management Nurse 04/11/20 05/02/23 Ino Robbins MD [address] [place] [address] Assigned OBGYN Provider 01/01/23 documented as of this encounter
--- OUTSIDE RECORDS SUMMARY | 2023-11-10 15:14 | XMS_ITS | Encounter Summary ---
Author Name Unknown Organization [place] Address [address] [place] [address] Care Team Providers Care First Aid Trainer Name Role Phone Abbey Bagley PA-C Unavailable Unavailable Abbey Bagley PA-C Primary Care Provider Kelley Ko DO Unavailable [phone] Reason for Visit * Diagnostic Imaging Ultrasound (Routine) - Pending Review Specialty Diagnoses / Procedures Referred By Bernardo t Referred To Contact Radiology. Diagnoses Encounter for supervision of other normal in second trimester Procedures US OB > 14 Weeks Ino Robbins MD [address] [place] [address] Referral ID Status Reason Start Date Expiration Date V isits Requested Visits Authorized [id number] Pending Review 11/23/2022 11/23/2023 1 1 Encounter Details Date Type Department Care Team (Late st Contact Info) Description 12/13/2022 11:00 AM DENIAL RESOLUTION SPECIALIST Ancillary Procedure [facility] [address] [facility] [address] [place] [address] Ino Robbins MD [address] [place] [address] Encounter for supervision of other normal in second trimester Social History Tobacco Use Types Packs/Day Years Used Date Smoking Tobacco: Some Days Cigarettes 0.3 Smokeless Tobacco: Never Alcohol Use Standard Drinks/Week Comments Not Currently 0 (1 standard drink = 0.6 oz pur e alcohol) Seldom PHQ-2 Answer Date Recorded PHQ-2 Score 2 11/26/2022 [place] Depression Scale Answer Date Recorded [place] Depression Score 13 03/10/2021 Last EPDS Self [...] Coronavirus/COVID-19? No / Unsure 12/13/2022 10:57 AM DENIAL RESOLUTION SPECIALIST documented as of this encounter Plan of Treatment Not on file documented as of this encounter Procedures Procedure Name Priority Date/Time Associated Diagnosis Comments US OB > 14 WEEKS Routine 12/13/2022 11:5 0 AM DENIAL RESOLUTION SPECIALIST Encounter for supervision of other normal in second trimester documented in this encounter Results * US OB > 14 Weeks (12/13/2022 11:50 AM DENIAL RESOLUTION SPECIALIST) Anatomical Region Laterality Modality Abdomen/Pelvis Ultrasound Narrative 12/13/2022 1:08 PM DENIAL RESOLUTION SPECIALIST Table formatting from the original result was not included. [facility] Obstetrics and Gynecology ?? ULTRASOUND [...] Godwin Latham MD FACOG Obstetrics and Gynecology [facility] Ino Robbins MD IMG US ORDERAB LES documented in this encounter Visit Diagnoses Diagnosis Encounter for supervision of other normal in second trimester documented in this encounter Additional Health Concerns Assessment Noted Time PHQ-9 Depression Total Score: 19 021 3:52 PM CDT documented as of this encounter Care Teams First Aid Trainer Relationship Specialty Start Date End Date Abbey Bagley PA-C PCP - General Physician Egg Processing Supervisor 08/15/20 Abbey Bagley PA-C Physician Egg Processing Supervisor 04/11/20 05/02/23 Kelley Diane DO [address] [address] Assigned OBGYN Provider 12/04/22 documented as of this encounter
--- OUTSIDE RECORDS SUMMARY | 2023-11-10 15:14 | XMS_ITS | Encounter Summary ---
Author Name Unknown Organization [facility] Address [address] [facility] [place] [address] Care Team Providers Care Gripper Attacher Name Role Phone Abbey Bagley PA-C Unavailable Unavailable Abbey Bagley PA-C Primary Care Provider Unava ilable Ino Guardado MD Unavailable Reason for Referral * Diagnostic Imaging Ultrasound (Routine) - Pending Review Specialty Diagnoses / Procedures Referred By Contreno t Referred To Contact Radiology. Diagnoses related condition, antepartum Procedures [facility] US Comprehensive Single Ino Guardado MD [address] [place] [address] Referral ID Status Reason Start Date Expiration Date V isits Requested Visits Authorized [id number] Pending Review 01/19/2023 01/19/2024 1 1 Encounter Details Date Type Department Care Team (Late st Contact Info) Description 01/19/2023 Transcribe Orders [facility] [address] [place] [address] Ino Guardado MD [address] [place], [place] [id number] related condition, antepartum (Primary Dx) Social History [...] documented as of this encounter Results * [facility] Comprehensive Single (01/25/2023 11:28 AM [...] JACK Study Date: 01/25/2023 10:19am Pat. NO: [id number] Referring ??MD: INO GUARDADO Site: [facility] Psych Tech: Arthur Herman RDMS : 2000 Age: 22 [...] lb 13 ? oz EFW by ?Hadlock ([id number]) Head / Face / Neck Biometry: Transmitter Operator ? 7.7 ? mm CM ?6.9 [...] vena cava. Inferior vena cava. 3-vessel view. 7-lwrbcv-oneijbm view. ? Cardiac position. Cardiac size. Cardiac [...] Pat. Name:Loki JACK Date:01/25/2023 10:19am Pat. NO: [id number] MD:INO GUARDADO [facility] :2000Age:22 ----- INDICATION ----- [...] 1 lb 13 oz EFW by Lawanda ([id number]-FL) Head / Face / Neck Biometry: Transmitter Operator 7.7 mm CM 6.9 mm ANATOMY ----- The following structures appear normal: Head / Neck Cranium. Head size. Head shape.Lateral ventricles. Choroid plexus. Midline falx. Cavum septi pellucidi.Cerebellum. Cisterna magna. Parenchyma. Thalami. Vermis. Neck. Face Lips. Heart / Thorax RVOT view. LVOT view. Situs. Aorticarch view. Bicaval view. Superior vena cava. Inferior vena cava. 3-vesselview. 5-cechxl-yqzhivm view. Cardiac position. Cardiac size.Cardiac rhythm. Diaphragm. [...] normal for gestational age. Ino Guardado MD [facility] ORD ERABLES documented in this encounter Visit Diagnoses Diagnosis related condition, antepartum- Primary related condition, antepartum documented in this encounter Additional Health Concerns Assessment Noted Time PHQ-9 Depression Total Score: 021 3:52 PM CDT documented as of this encounter Care Teams Gripper Attacher Relationship Specialty Start Date End Date Abbey Bagley PA-C PCP - General Physician Captain Cannery Tender 08/15/20 Abbey Bagley PA-C Physician Captain Cannery Tender 04/11/20 05/02/23 Ino Guardado MD [address] [place] [address] Assigned OBGYN Provider 01/01/23 documented as of this encounter
--- OUTSIDE RECORDS SUMMARY | 2023-11-10 15:15 | XMS_ITS | Encounter Summary ---
Author Name Unknown Organization [place] Address [address] [facility] [place] [address] Care Team Providers Care Solar Electric Practitioner Name Role Phone Abbey Bagley PA-C Unavailable Unavailable Abbey Bagley PA-C Primary Care Provider Kelley Ko DO Unavailable [phone] Ino Robbins MD Unavailable Encounter Details Date Type Department Care Team (Late st Contact Info) Description 11/23/2022 MyC Medical Advice [address] [place] [address] Di Sher RN Social History [...] Coronavirus/COVID-19? No / Unsure 11/26/2022 1:26 PM WINDER HELPER documented as of this encounter Plan of Treatment Not on file documented as of this encounter Visit Diagnoses Not on filedocumented in this encounter Additional Health Concerns Assessment Noted Time PHQ-9 Depression Total Score: 19 021 3:52 PM CDT documented as of this encounter Care Teams Solar Electric Practitioner Relationship Specialty Start Date End Date Abbey Bagley PA-C PCP - General Physician Television Repairer 08/15/20 Abbey Bagley PA-C Physician Television Repairer 04/11/20 05/02/23 Kelley Diane DO [address] [address] Assigned OBGYN Provider 12/04/22 Ino Robbins MD [address] [place] [address] Assigned OBGYN Provider 01/01/23 documented as of this encounter
--- OUTSIDE RECORDS SUMMARY | 2023-11-10 15:15 | XMS_ITS | Encounter Summary ---
Author Name Unknown Organization [place] Address [address] [facility] [place] [address] Care Team Providers Care Board Certified Family Physician Name Role Phone Abbey Bagley PA-C Unavailable Unavailable Abbey aBgley PA-C Primary Care Provider Unava ilable Ino Robbins MD Unavailable Azul Gilman DO Unavailable [phone] Kelley Diane DO Unavailable [phone] Ino Robbins MD Unavailable Encounter Details Date Type Department Care Team (Late st Contact Info) Description 04/07/2021 MyC Medical Advice [facility] [address] [place] [phone] Ino Robbins MD [address] [place] [address] Social History Tobacco Use Types Packs/Day Years Used Date Smoking Tobacco: Every Day Cigarettes 0.3 Smokeless Tobacco: Never Alcohol Use Standard Drinks/Week Comments Not Currently 0 (1 standard drink = 0.6 oz pur e alcohol) Seldom PHQ-2 Answer Date Recorded PHQ-2 Score 6 02/19/2021 [place] Depression Scale Answer Date Recorded [place] Depression Score 13 03/10/2021 Last EPDS Self [...] as of this encounter Care Teams Board Certified Family Physician Relationship Specialty Start Date End Date Abbey Bagley PA-C PCP - General Physician Director Of Sales 08/15/20 Abbey Bagley PA-C Physician Director Of Sales 04/11/20 05/02/23 Ino Robbins MD [address] [place] [address] Assigned OBGYN Provider 03/08/21 Azul Gilman DO [address] [place] [address] Assigned Heart and Vascular Provider 03/08/21 09/10/22 Kelley Diane DO [address] [place] [address] Assigned OBGYN Provider 12/04/22 Ino Robbins MD [address] [place] [address] Assigned OBGYN Provider 01/01/23 documented as of this encounter
--- OUTSIDE RECORDS SUMMARY | 2023-11-10 15:15 | XMS_ITS | Encounter Summary ---
Author Name Unknown Organization [facility] Address [address] [facility] [place] [address] Care Team Providers Care Compacting Machine Operator/Tender Name Role Phone Abbey Bagley PA-C Unavailable Unavailable Abbey Bagley PA-C Primary Care Provider Unava ilable Reason for Referral * Diagnostic Imaging Ultrasound (Routine) - Pending Review Specialty Diagnoses / Procedures Referred By Bernardo belle Referred To Contact Radiology. Diagnoses Encounter for supervision of other normal in second trimester Procedures US OB > 14 Weeks Ino Robbins MD [address] [place] [address] Referral ID Status Reason Start Date Expiration Date V isits Requested Visits Authorized [id number] Pending Review 11/23/2022 11/23/2023 1 1 SECTION SUPERVISOR Reason for Visit * Reason Comments Care New Nurse Doyle villalobos Visit Encounter Details Date Type Department Care Team (Latest Contact Info) Description 11/23/2022 2:15 PM LEAD SECTION SUPERVISOR Office Visit [address] [place] [address] Encounter for supervision of other [...] Answer Date Recorded PHQ-2 Score 2 11/23/2022 [place] Depression Scale Answer Date Recorded [place] [...] Coronavirus/COVID-19? No / Unsure 11/17/2022 6:32 PM LEAD SECTION SUPERVISOR documented as of this encounter Progress Notes [...] to this ?: No Di Sher RN SECTION SUPERVISOR documented in this encounter Plan of Treatment Not on file documented as of this encounter Results * US OB > 14 Weeks (12/13/2022 11:50 AM LEAD SECTION SUPERVISOR) Anatomical Region Laterality Modality Abdomen/Pelvis Ultrasound Narrative 12/13/2022 1:08 PM LEAD SECTION SUPERVISOR Table formatting from the original result was not included. [facility] Obstetrics and Gynecology ?? ULTRASOUND [...] Godwin Latham MD FACOG Obstetrics and Gynecology [facility] Ino Robbins MD [facility] ORDERAB LES * Urine Culture Aerobic Bacterial (11/26/2022 2:37 PM LEAD SECTION SUPERVISOR) Culture 10,000-50,000 CFU/mL Mixture of urogenital chely RHIANNA 11/28/2022 10:50 AM LEAD SECTION SUPERVISOR [facility] Urine MID-STREAM URINE SPECIMEN / Unknown Non-blood Collection / Unknown 11/26/2022 2:37 PM LEAD SECTION SUPERVISOR 11/26/2022 2:37 PM LEAD SECTION SUPERVISOR Kelley Diane DO LAB - MICRO GENER AL ORDERABLES [facility] Inf. Diseases Diag. Lab [address] [facility] [place] [address], [facility] [phone] * Hepatitis C antibody (11/26/2022 2:16 PM LEAD SECTION SUPERVISOR) Hepatitis C Antibody Nonreactive Nonreactive 11/27/2022 2:46 PM LEAD SECTION SUPERVISOR SPECIALTY CORE/PROT/EN DO Blood BLOOD SPECIMEN / Unknown Venipuncture / Unknown 11/26/2022 2:16 PM LEAD SECTION SUPERVISOR 11/26/2022 2:28 PM LEAD SECTION SUPERVISOR Narrative SPECIALTY CORE/PROT/ENDO - 11/27/2022 2:46 PM LEAD SECTION SUPERVISOR Assay performance characteristics have not been established for newborns, infants, and children. Kelley Diane DO LAB - BLOOD ORDER [facility] SPECIALTY CORE/PROT/ENDO Specialty Core/Prot/Endo [address] [facility] [place] [address], [facility] [phone] * Treponema Abs w Reflex to RPR and Titer (11/26/2022 2:16 PM LEAD SECTION SUPERVISOR) Treponema Antibody Total Nonreactive Nonreactive 11/27/2022 10:22 AM LEAD SECTION SUPERVISOR [facility] SPECIALTY CORE/PROT/EN DO Blood BLOOD SPECIMEN / Unknown Venipuncture / Unknown 11/26/2022 2:16 PM LEAD SECTION SUPERVISOR 11/26/2022 2:28 PM LEAD SECTION SUPERVISOR Kelley Diane DO LAB - BLOOD ORDER [facility] SPECIALTY CORE/PROT/ENDO [facility] Specialty Core/Prot/Endo [address] [facility] [address], [address] [place] [address], [facility] [phone] * Rubella Antibody IgG Quantitative (11/26/2022 2:16 PM LEAD SECTION SUPERVISOR) Rubella Isabelle IgG Instrument Value 3.93 <0.90 Index 11/29/2022 12:01 PM LEAD SECTION SUPERVISOR SPECIALTY CORE/PROT/END O Rubella Antibody IgG Positive 11/29/2022 12:01 PM LEAD SECTION SUPERVISOR SPECIALTY CORE/PROT/END O Comment:Suggests previous ex posure or immunization and probable immunity. Blood BLOOD SPECIMEN / Unknown Venipuncture / Unknown 11/26/2022 2:16 PM LEAD SECTION SUPERVISOR 11/26/2022 2:27 PM LEAD SECTION SUPERVISOR Kelley Diane DO LAB - BLOOD ORDER [facility] SPECIALTY CORE/PROT/ENDO Specialty Core/Prot/Endo [address] [facility] [address], [address] [place] [address], [facility] [phone] * HIV Antigen Antibody Combo (11/26/2022 2:16 PM LEAD SECTION SUPERVISOR) HIV Antigen Antibody Combo Nonreactive Nonreactive 11/27/2022 2:46 PM LEAD SECTION SUPERVISOR SPECIALTY CORE/PROT/EN DO Comment:HIV-1 p24 Ag & HIV-1 /HIV-2 Ab Not Detected Blood BLOOD SPECIMEN / Unknown Venipuncture / Unknown 11/26/2022 2:16 PM LEAD SECTION SUPERVISOR 11/26/2022 2:28 PM LEAD SECTION SUPERVISOR Kelley Diane DO LAB - BLOOD ORDER [facility] SPECIALTY CORE/PROT/ENDO UM Specialty Core/Prot/Endo [address] [facility] [address], [address] [place] [address], [facility] [phone] * Hepatitis B surface antigen (11/26/2022 2:16 PM LEAD SECTION SUPERVISOR) Hepatitis B Surface Antigen Nonreactive Nonreactive 11/27/2022 2:46 PM LEAD SECTION SUPERVISOR UM SPECIALTY CORE/PROT/EN DO Blood BLOOD SPECIMEN / Unknown Venipuncture / Unknown 11/26/2022 2:16 PM LEAD SECTION SUPERVISOR 11/26/2022 2:28 PM LEAD SECTION SUPERVISOR Kelley Diane DO LAB - BLOOD ORDER [facility] SPECIALTY CORE/PROT/ENDO UM Specialty Core/Prot/Endo [address] [facility] [address] [facility], [address] [place] [address] documented in this encounter Visit Diagnoses Diagnosis Encounter for supervision of other normal in second trimester- Primary Encounter for supervision of other normal in second trimester documented in this encounter Additional Health Concerns Assessment Noted Time PHQ-9 Depression Total Score: 19 05/14/2 021 3:52 PM CDT documented as of this encounter Care Teams Compacting Machine Operator/Tender Relationship Specialty Start Date End Date Abbey Bagley PA-C PCP - General Physician Perforator Operator Oil Well 08/15/20 Abbey Bagley PA-C Physician Perforator Operator Oil Well 04/11/20 05/02/23 documented as of this encounter
--- OUTSIDE RECORDS SUMMARY | 2023-11-10 15:15 | XMS_ITS | Encounter Summary ---
Author Name Unknown Organization [place] Address [facility] [place] [address] Care Team Providers Care Metal Weigher Name Role Phone Abbey Bagley PA-C Unavailable Unavailable Abbey Bagley PA-C Primary Care Provider Unava ilable Reason for Visit * Reason Comments Care New visit 1 7 weeks 0 days Labs & G/C due U/S 11/04 & 12/13/2022 Encounter Details Date Type Department Care Team (Late st Contact Info) Description 11/26/2022 1:30 PM ORACLE ERP DEVELOPER Office Visit [facility] [place] [address] [place] [phone] Kelley Diane, DO [address] [facility] [address] [place] [address] Screen for STD (sexually transmitted disease) (Primary [...] Answer Date Recorded PHQ-2 Score 2 11/26/2022 [place] Depression Scale Answer Date Recorded [place] Depression Score 13 03/10/2021 Last EPDS Self [...] Coronavirus/COVID-19? No / Unsure 11/26/2022 1:26 PM ORACLE ERP DEVELOPER documented as of this encounter Last Filed Vital Signs Vital Sign Reading Time Taken Comments Blood Pressure 92/64 11/26/2022 1:32 PM ORACLE ERP DEVELOPER Pulse - - Temperature - - Respiratory Rate - - Oxygen Saturation - - Inhaled Oxygen Concentration - - Weight 89.9 kg (198 lb 4.8 oz) 11/26/2022 1:32 P M ORACLE ERP DEVELOPER Height - - Body Mass Index 31.06 11/04/2022 3:15 PM ORACLE ERP DEVELOPER documented in this encounter Patient Instructions * Patient Instructions* Kelley Diane, - 11/26/2022 1:30 PM ORACLE ERP DEVELOPER Labs today Return 4 weeks Return to clinic: every 4 weeks till 28 weeks, then every 2 weeks till 36 weeks, then weekly till delivery Phone numbers [place]: Day/ night [phone] ask for ob triage Emergency: Call labor and delivery: [phone] What should I call about?? Contraction every [...] on counting [facility] Address [address], [place] [address] Dr. Kelley Diane DO FOREIGN FOOD COOK SPECIALTY [facility] LE ERP DEVELOPER documented in this encounter Progress Notes * [...] equivalent Occupational History ??? 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 Tobacco Use ??? Smoking status: Some Days [...] GENITALIA: BUS WNL, no lesions noted VAGINA: Carlos, normal rugae and discharge normal and physiologic, [...] Return: [address] Kelley Diane DO [employer] SPECIALTY [facility] LE ERP DEVELOPER documented in this encounter Nursing Notes * Kristyn Garland, DOCTOR'S ASSISTANT - 11/26/2022 1:30 PM CST Chief [...] Garland CMA on 11/26/2022 at 1:35 PM LE ERP DEVELOPER documented in this encounter Plan of Treatment Scheduled Orders Name Type Priority Associated Diagnoses Orde r Schedule NEISSERIA GONORRHOEA PCR Microbiology Routine Screen for STD (sexually transmitted disease) Ordered: 11/26/2022 documented as of this encounter Procedures Procedure Name Priority Date/Time Associated Diagnosis Comments URINE CULTURE Routine 11/26/2022 2:37 PM ORACLE ERP DEVELOPER Encounter for supervision of other normal in second trimester TYPE AND SCREEN, ADULT Routine 11/26/2022 2:16 PM ORACLE ERP DEVELOPER Encounter for supervision of other normal in second trimester RUBELLA ANTIBODY IGG Routine 11/26/2022 2:16 PM ORACLE ERP DEVELOPER Encounter for supervision of other normal in second trimester HIV ANTIGEN ANTIBODY COMBO Routine 11/26/2022 2:16 PM ORACLE ERP DEVELOPER Encounter for supervision of other normal in second trimester TREPONEMA ABS W REFLEX TO RPR AND TITER Routine 11/26/2022 2:16 PM ORACLE ERP DEVELOPER Encounter for supervision of other normal in second trimester HEPATITIS C ANTIBODY Routine 11/26/2022 2:16 PM ORACLE ERP DEVELOPER Encounter for supervision of other normal in second trimester HEPATITIS B SURFACE ANTIGEN Routine 11/26/2022 2:16 PM ORACLE ERP DEVELOPER Encounter for supervision of other normal in second trimester ABO/RH TYPE AND SCREEN Routine 11/26/2022 2:16 PM ORACLE ERP DEVELOPER Encounter for supervision of other normal in second trimester CHLAMYDIA TRACHOMATIS PCR Routine 11/26/2022 1:42 PM ORACLE ERP DEVELOPER Screen for STD (sexually transmitted disease) documented in this encounter Results * Urine Culture Aerobic Bacterial (11/26/2022 2:37 PM ORACLE ERP DEVELOPER) Culture 10,000-50,000 CFU/mL Mixture of urogenital chely RHIANNA 11/28/2022 10:50 AM ORACLE ERP DEVELOPER [facility] Urine MID-STREAM URINE SPECIMEN / Unknown Non-blood Collection / Unknown 11/26/2022 2:37 PM ORACLE ERP DEVELOPER 11/26/2022 2:37 PM ORACLE ERP DEVELOPER Kelley Diane DO LAB - MICRO GENER AL ORDERABLES [facility] Inf. Diseases Diag. Lab [address] [facility], [address] [place] [id number], [facility] [phone] * Adult Type and Screen (11/26/2022 2:16 PM ORACLE ERP DEVELOPER) ABO/RH(D) A POS 11/25/2022 6:00 PM ORACLE ERP DEVELOPER RH BLOOD BANK Antibody Screen Negative Negative 11/25/2022 6:00 PM ORACLE ERP DEVELOPER RH BLOOD BANK SPECIMEN EXPIRATION DATE [id number] 11/25/2022 6:00 PM ORACLE ERP DEVELOPER RH BLOOD BANK Blood BLOOD SPECIMEN / Unknown Venipuncture / Unknown 11/26/2022 2:16 PM ORACLE ERP DEVELOPER 11/26/2022 2:27 PM ORACLE ERP DEVELOPER Kelley Diane DO LAB - BLOOD BANK TEST ORDER BLOOD [place] [address] * Hepatitis C antibody (11/26/2022 2:16 PM ORACLE ERP DEVELOPER) Hepatitis C Antibody Nonreactive Nonreactive 11/27/2022 2:46 PM ORACLE ERP DEVELOPER [facility]PROT/EN DO Blood BLOOD SPECIMEN / Unknown Venipuncture / Unknown 11/26/2022 2:16 PM ORACLE ERP DEVELOPER 11/26/2022 2:28 PM ORACLE ERP DEVELOPER Narrative [facility] C[facility]/PROT/ENDO - 11/27/2022 2:46 PM ORACLE ERP DEVELOPER Assay performance characteristics have not been established for newborns, infants, and children. Kelley Diane DO LAB - BLOOD ORDER BROOKE Performing Organization Address City/[facility]/ZIP Co de Phone Number [facility] SPECIAL[facility] CORE/PROT/ENDO Specialty Core/Prot/Endo [address] [facility], [address] [phone] * Treponema Abs w Reflex to RPR and Titer (11/26/2022 2:16 PM ORACLE ERP DEVELOPER) Treponema Antibody Total Nonreactive Nonreactive 11/27/2022 10:22 AM ORACLE ERP DEVELOPER SPECIALTY CORE/PROT/EN DO Blood BLOOD SPECIMEN / Unknown Venipuncture / Unknown 11/26/2022 2:16 PM ORACLE ERP DEVELOPER 11/26/2022 2:28 PM ORACLE ERP DEVELOPER Kelley Gloria Benedicto GUZMAN LAB - BLOOD ORDER BROOKE [facility] SPECIAL[facility] CORE/PROT/ENDO Specialty Core/Prot/Endo 500 [facility], [address] [phone] * Rubella Antibody IgG Quantitative (11/26/2022 2:16 PM ORACLE ERP DEVELOPER) Rubella Isabelle IgG Instrument Value 3.93 <0.90 Index 11/29/2022 12:01 PM ORACLE ERP DEVELOPER [facility]/PROT/END O Rubella Antibody IgG Positive 11/29/2022 12:01 PM ORACLE ERP DEVELOPER SPECIALTY CORE/PROT/END O Comment:Suggests previous ex posure or immunization and probable immunity. Blood BLOOD SPECIMEN / Unknown Venipuncture / Unknown 11/26/2022 2:16 PM ORACLE ERP DEVELOPER 11/26/2022 2:27 PM ORACLE ERP DEVELOPER Kelley Diane DO LAB - BLOOD ORDER BROOKE [facility] SPECIAL[facility] CORE/PROT/ENDO [facility] Specialty Core/Prot/Endo [address] [facility], [address] [phone] * HIV Antigen Antibody Combo (11/26/2022 2:16 PM ORACLE ERP DEVELOPER) HIV Antigen Antibody Combo Nonreactive Nonreactive 11/27/2022 2:46 PM ORACLE ERP DEVELOPER SPECIALTY CORE/PROT/EN DO Comment:HIV-1 p24 Ag & HIV-1 /HIV-2 Ab Not Detected Blood BLOOD SPECIMEN / Unknown Venipuncture / Unknown 11/26/2022 2:16 PM ORACLE ERP DEVELOPER 11/26/2022 2:28 PM ORACLE ERP DEVELOPER Kelley Diane DO LAB - BLOOD ORDER BROOKE [facility] SPECIALTY CORE/PROT/ENDO Specialty Core/Prot/Endo [address] [facility], [address] [phone] * Hepatitis B surface antigen (11/26/2022 2:16 PM ORACLE ERP DEVELOPER) Hepatitis B Surface Antigen Nonreactive Nonreactive 11/27/2022 2:46 PM ORACLE ERP DEVELOPER [facility] SPECIAL[facility] CORE/PROT/EN DO Blood BLOOD SPECIMEN / Unknown Venipuncture / Unknown 11/26/2022 2:16 PM ORACLE ERP DEVELOPER 11/26/2022 2:28 PM ORACLE ERP DEVELOPER Kelley Diane DO LAB - BLOOD ORDER BROOKE [facility] SPECIAL[facility] CORE/PROT/ENDO UM Specialty Core/Prot/Endo [address] [facility], [address] [place] [address], [facility] [phone] * CHLAMYDIA TRACHOMATIS PCR (11/26/2022 1:42 PM ORACLE ERP DEVELOPER) Chlamydia trachomatis Negative Negative 11/27/2022 12:55 PM ORACLE ERP DEVELOPER [facility] Comment:A negative result by jig boring machine operator for metal mediated amplification does not preclude the presence of C. trachomatis infection because results are dependent on proper and adequate collection, absence of inhibitors and sufficient rRNA to be detected. Swab CERVIX UTERI STRUCTURE / Unknown Non-blood Collection / Unknown 11/26/2022 1:42 PM ORACLE ERP DEVELOPER 11/26/2022 3:02 PM ORACLE ERP DEVELOPER Kelley Diane DO LAB - MICRO GENER AL ORDERABLES [facility] Inf. Diseases Diag. Lab 500 [facility], [address] [place] [address], [facility] [phone] documented in this encounter Visit Diagnoses Diagnosis Screen for STD (sexually transmitted disease)- Primary Screening examination for venereal disease care in second trimester Encounter for supervision of other normal in second trimester documented in this encounter Additional Health Concerns Assessment Noted Time PHQ-9 Depression Total Score: 19 08/ 021 3:52 PM CDT documented as of this encounter Care Teams Metal Weigher Relationship Specialty Start Date End Date Abbey Bagley PA-C PCP - General Physician Drafting Technician 08/15/20 Abbey Bagley PA-C Physician Drafting Technician 04/11/20 05/02/23 documented as of this encounter
--- OUTSIDE RECORDS SUMMARY | 2023-11-10 15:15 | XMS_ITS | Encounter Summary ---
Author Name Unknown Organization [place] Address [address] [place] [address] Care Team Providers Care Gas Cutter Name Role Phone Abbey Bagley PA-C [...] points; Administer PHQ-9 if positive 2 11/17/2022 [place] Depression Scale Answer Date Recorded [place] Depression Score 13 03/10/2021 Last EPDS Self [...] Coronavirus/COVID-19? No / Unsure 11/17/2022 6:32 PM DRAPERY OPERATOR documented as of this encounter Plan of Treatment Not on file documented as of this encounter Visit Diagnoses Not on filedocumented in this encounter Additional Health Concerns Assessment Noted Time PHQ-9 Depression Total Score: 19 021 3:52 PM CDT documented as of this encounter Care Teams Gas Cutter Relationship Specialty Start Date End Date Abbey Bagley PA-C PCP - General Physician Button And Buckle Maker 08/15/20 Abbey Bagley PA-C Physician Button And Buckle Maker 04/11/20 05/02/23 Ino Robbins MD [address] [place] [address] Assigned OBGYN Provider 03/08/21 documented as of this encounter
--- OUTSIDE RECORDS SUMMARY | 2023-11-10 15:15 | XMS_ITS ---
Author Name Unknown Organization [place] Address [address] [place] [address] Care Team Providers Care Painting Trades Worker Name Role Phone Abbey Bagley PA-C Primary Care Provider Ino Ken MD Unavailable Transitional Care Management Status:Closed (Closed) Start date:05/05/2023 End date:05/05/2023 Continued Care and Services Coordination
--- OUTSIDE RECORDS SUMMARY | 2023-11-10 15:15 | XMS_ITS | Encounter Summary ---
Author Name Unknown Organization [place] Address [facility] [place] [address] Care Team Providers Care Sock Boarder Name Role Phone Abbey Bagley PA-C Unavailable Unavailable Abbey Bagley PA-C Primary Care Provider Kelley oK DO Unavailable [phone] Ino Robbins MD Unavailable [phone] Encounter Details Date Type Department Care Team (Late st Contact Info) Description 11/22/2022 MyC Medical Advice [address] [place] [address] Di Sher RN Social History Tobacco Use Types Packs/Day Years Used Date Smoking Tobacco: Every Day Cigarettes 0.3 Smokeless Tobacco: Never Alcohol Use Standard Drinks/Week Comments Not Currently 0 (1 standard drink = 0.6 oz pur e alcohol) Seldom PHQ-2 Answer Date Recorded PHQ-2 Score 2 11/26/2022 [place] Depression Scale Answer Date Recorded [place] Depression Score 13 03/10/2021 Last EPDS Self [...] Coronavirus/COVID-19? No / Unsure 11/17/2022 6:32 PM FIELD CARE COORDINATOR documented as of this encounter Plan of Treatment Not on file documented as of this encounter Visit Diagnoses Not on filedocumented in this encounter Additional Health Concerns Assessment Noted Time PHQ-9 Depression Total Score: 19 021 3:52 PM CDT documented as of this encounter Care Teams Sock Boarder Relationship Specialty Start Date End Date Abbey Bagley PA-C PCP - General Physician Electric Organ Checker 08/15/20 Abbey Bagley PA-C Physician Electric Organ Checker 04/11/20 05/02/23 Kelley Diane DO [address] [address] Assigned OBGYN Provider 12/04/22 Ino Robbins MD [address] [place] [address] Assigned OBGYN Provider 01/01/23 documented as of this encounter
--- OUTSIDE RECORDS SUMMARY | 2023-11-10 15:15 | XMS_ITS | Encounter Summary ---
Author Name Unknown Organization [place] Address [address] [place] [address] Care Team Providers Care Wire Stripping Machine Operator Name Role Phone Abbey Bagley PA-C Unavailable Unavailable Abbey Bagley PA-C Primary Care Provider Unava ilable Ino Robbins MD Unavailable Azul Gilman DO Unavailable + [phone] Kelley Diane DO Unavailable [phone] Ino Robbins MD Unavailable [phone] Reason for Visit * Reason Onset Date [...] Answer Date Recorded PHQ-2 Score 6 02/19/2021 [place] Depression Scale Answer Date Recorded [place] Depression Score 13 03/10/2021 Last EPDS Self [...] as of this encounter Care Teams Wire Stripping Machine Operator Relationship Specialty Start Date End Date Abbey Bagley PA-C PCP - General Physician Choker Setter 08/15/20 Abbey Bagley PA-C Physician Choker Setter 04/11/20 05/02/23 Ino Robbins MD [address] [place] [address] Assigned OBGYN Provider 03/08/21 Azul Gilman DO [address] [place] [address] Assigned Heart and Vascular Provider 03/08/21 09/10/22 Kelley Diane DO [address] [facility] [address] [place] [address] Assigned OBGYN Provider 12/04/22 Ino Robbins MD [address] [place] [address] Assigned OBGYN Provider 01/01/23 documented as of this encounter
--- OUTSIDE RECORDS SUMMARY | 2023-11-10 15:15 | XMS_ITS | Clinical Summary ---
Author Name Unknown Organization [facility] Address [place], [place] [address] Care Team Providers Care Electroencephalograph Technologist Name Role Phone Staff, Other Clinical Primary [...] Name Administration Dates Next Due COVID-19 vaccine ([employer] NTGigmax 30mcg/0.3mL) PF, MDV 2021 DTaP 05/23/2007, 7,08/27/2004,08/27,2002,2002 [id number] (Pediarix) 07/16/2004,07/16/2004 HIB PRP-OMP (PedvaxHIB) 07/16/2004 HIB [...] Austin Ledezma MD Complications: Intolera nce Delivery Location:[facility] ( LABOR AND DELIVERY) 05/03 Term 39w [...] - Increase reliability General Yes Praful Orozco, ACID ETCH OPERATOR, TIP TESTER Note: Goal identified during: Initial Screening Status: [...] follow-up in two weeks to review her [facility] goals and get a status update [...] 3:46 PM 08/18/2016 1:40 PM Care Teams Electroencephalograph Technologist Relationship Specialty Start Date End Date Staff, Other Clinical . PCP - General 06/05/23
== END 2023-11-10 15:00 | disposition home or self-care (01) ==
LOC: US 15:00
PROVIDERS: PCP Nurse Practitioner Family; Visit Provider Physician Assistant
DX: T83.32XA Displacement of intrauterine contraceptive device, initial encounter (principal)
CPT/HCPCS: 76830

== ENCOUNTER 2024-01-09 11:37 | Outpatient (CLI) | payer MEDICAID, SELFPAY | END 2024-01-09 11:38 | disposition home or self-care (01) | LOC: NFLDREF 01-11 07:03 | PROVIDERS: PCP Nurse Practitioner Family; Referring Provider Nurse Practitioner Family; Visit Provider Nurse Practitioner Family | DX: D50.9 Iron deficiency anemia, unspecified (principal) | CPT/HCPCS: 82728; 83540; 83550 ==

== ENCOUNTER 2024-02-29 16:15 | Outpatient (CLI) | payer MEDICAID, SELFPAY ==
--- OUTSIDE RECORDS SUMMARY | 2024-03-20 10:08 | XMS_ITS | Encounter Summary ---
Author Organization [facility] Address [address] [place] [address] Phone Care Team Providers Care Yarn Skeins Examiner Name Role Phone Alfred Lambert APRN, CNP [...] Total Score: 7 08/22/20 23 11:05 AM TOOL ROOM LATHE OPERATOR PHQ-2 Depression Total Score: 2 08/22/20 23 11:05 AM TOOL ROOM LATHE OPERATOR documented as of this encounter Care Teams Yarn Skeins Examiner Relationship Specialty Start Date End Date Alfred Lambert APRN, CNP [address] [place] [address] PCP - General Internal Medicine 01/17/24 documented as of this encounter
--- OUTSIDE RECORDS SUMMARY | 2024-03-20 10:08 | XMS_ITS | Encounter Summary ---
Author Organization [facility] Address [address] [place] [address] Phone Care Team Providers Care Silver Buffer Name Role Phone Unavailable Primary Care Provider Unavailabl e Reason for Referral * Consult/Test/Treat (Routine) - New Request Specialty Diagnoses / Procedures Referred By Bernardo belle Referred To Contact SLEEP NEUROLOGY Diagnoses Insomnia, unspecified type Trip Nieto MD [address] [place] [address] Tonny Gold PsyD, DIETER [address] [place] [address] Referral ID Status Reason Start Date Expiration Date V isits Requested Visits Authorized [id number] New Request 01/03/2024 01/02/2025 1 1 Scheduling [...] SLEEP NEUROLOGY Diagnoses Difficulty sleeping Alfred Lambert, FARROWING MANAGER, NUT PROCESS HELPER [address] [place] [address] Referral ID Status Reason Start Date Expiration Date Visits Re quested Visits Authorized [id number] Closed 11/10/2023 11/09/2024 1 1 Encounter Details Date Type Department Care Team (Late st Contact Info) Description 01/03/2024 3:00 PM CDT Telemedicine [facility] Sleep Center [address] [place] [address] [address]8.220 [place] [address] Trip Nieto MD [address] [place] [address] Insomnia, unspecified type (Primary Dx) Discharge Disposition: [...] Nieto MD - 01/03/2024 3:00 PM CDT [facility] Sleep Center Merry Rooney : [...] complex behavior. 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 She is awake and alert [...] She sees mental health providers outside of [place]. Current medications include ferrous sulfate, valacyclovir, vitamin [...] Total Score: 7 08/22/20 23 11:05 AM ENVIRONMENTAL TEST TECHNICIAN PHQ-2 Depression Total Score: 2 08/22/20 23 11:05 AM ENVIRONMENTAL TEST TECHNICIAN documented as of this encounter
--- OUTSIDE RECORDS SUMMARY | 2024-03-20 10:08 | XMS_ITS | Encounter Summary ---
Author Organization [facility] Address [address] [facility] [place] [address] Phone Care Team Providers Care Service Provider Name Role Phone Alfred Lambert APRN, CNP Primary Care Provider [phone] Reason for Visit * Prior Authorization (Routine) - Closed Specialty Diagnoses / Procedures Referred By Contac t Referred To Contact CARDIOLOGY ECHO LAB Diagnoses POTS (postural orthostatic tachycardia syndrome) f/u POTS (postural orthostatic tachycardia syndrome) [G90.A] Procedures LA ECHO TTHRC R-T 2D W/WOM-MODE COMPL SPEC&COLR D Echo Lab [address] [employer] [address] [place] [address] Referral ID Status Reason Start Date Expiration Date Visits Re quested Visits Authorized [id number] Closed 1 1 Encounter Details Date Type Department Care Team (Latest Contact Info) Description 01/17/2024 12:05 PM CDT - 01/17/2024 11:59 PM CDT Hospital Encounter [facility] Echo Lab [address] [facility] [address] [place], [place] [address] Shahbaz Urias MD [address] [employer] [place] [address] Discharge Disposition: Discharged to home [...] 67.24 Inches RICHIE D Patient Number ?? [id number] ?Weight ? 197 Pounds Date of ?2000 ? BSA ?2.01 m^2 Age ?23 ? Tape Number Gender ? Female ? Study Date ? 01/17/2024 12:20 PM Induction Machine Operator ?PC ? Ordering Provider ??NINI Madrigal Referring ?NINI CORONA ??Interpreting ? Iain Tyler MD Physician ?A ?Physician ?[id number] Type of Study: TTE procedure: 2D echocardiogram, [...] Height 67.24 Inches RICHIE D Patient Number [id number] Weight 197 Pounds Date of 2000 BSA 2.01 m^2 Age 23 Tape Number Gender Female Study Date 01/17/2024 12:20 PM Induction Machine Operator PC Ordering Provider NINI Madrigal Referring NINI CORONA Interpreting Iain Tyler MD Physician A Physician [id number] Type of Study: TTE procedure: 2D echocardiogram, [...] True True True True Shahbaz Urias MD [facility] ECHO [facility] documented in this encounter Visit Diagnoses Diagnosis POTS (postural orthostatic tachycardia syndrome) Tachycardia, unspecified documented in this encounter Additional Health Concerns Assessment Noted Time PHQ-9 Depression Total Score: 7 08/22/20 11:05 AM GANG SAWYER PHQ-2 Depression Total Score: 2 08/22/20 11:05 AM GANG SAWYER documented as of this encounter Care Teams Service Provider Relationship Specialty Start Date End Date Alfred Lambert, MAPPING TECHNICIAN, WIRE LOOP MACHINE OPERATOR [address] [place] [address] PCP - General Internal Medicine 01/17/24 documented as of this encounter
--- OUTSIDE RECORDS SUMMARY | 2024-03-20 10:08 | XMS_ITS | Encounter Summary ---
Author Organization [place] Address [address] [facility] [place] [address] Care Team Providers Care Mend Worker Name Role Phone Abbey Bagley PA-C Unavailable Unavailable Abbey Bagley PA-C Primary Care Provider Kelley Ko DO Unavailable Ino Robbins MD Unavailable Encounter Details Date Type Department Care Team (Late st Contact Info) Description 12/07/2022 [facility] [address] [place] [phone] Diana Rainey, RN Social History Tobacco Use Types Packs/Day Years Used Date Smoking Tobacco: Some Days Cigarettes Smokeless Tobacco: Never Alcohol Use Standard Drinks/Week Comments Not Currently 0 (1 standard drink = 0.6 oz pur e alcohol) Seldom PHQ-2 Answer Date Recorded PHQ-2 Score 2 11/26/2022 [place] Depression Scale Answer Date Recorded [place] Depression Score 13 03/10/2021 Last EPDS Self [...] Coronavirus/COVID-19? No / Unsure 11/26/2022 1:26 PM DIRECTOR CRAFT CENTER documented as of this encounter Plan of Treatment Not on file documented as of this encounter Visit Diagnoses Not on filedocumented in this encounter Additional Health Concerns Assessment Noted Time PHQ-9 Depression Total Score: 19 021 3:52 PM CDT documented as of this encounter Care Teams Mend Worker Relationship Specialty Start Date End Date Abbey Bagley PA-C PCP - General Physician Byproduct Engineer 08/15/20 Abbey Bagley PA-C Physician Byproduct Engineer 04/11/20 05/02/23 Kelley Diane DO [address] [address] Assigned OBGYN Provider 12/04/22 Ino Robbins MD [address] [place] [address] Assigned OBGYN Provider 01/01/23 documented as of this encounter
--- OUTSIDE RECORDS SUMMARY | 2024-03-20 10:08 | XMS_ITS | Clinical Summary ---
Author Organization [facility] Address [address] [place] [address] Phone Care Team Providers Care Principal Technologist Name Role Phone Alfred Lambetr APRN, CNP Primary Care Provider Source Comments [employer] is fully rolled out on [email or web address]. 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 Encounter for screening 02/05/2005 06/08/20 Overview: LW Onset: [id number] ; Child and Teen Check Up Needs Resolved Problems Problem Noted Date Diagnosed Date Resolved Date Acute encephalopathy 05/07/2023 06/08/2023 023 Encounters Date Type Department Care Team Description 02/17/2024 11:30 AM CDT Erroneous Encounter [facility] [address] [place] [address] Ray Cutler PA-C ERRONEOUS ENCOUNTER-DISREGARD (Primary Dx) 01/24/2024 3:00 PM CDT [facility] [address] [address] Justina Bowser APRN, GUARD SUPERVISOR POTS (postural orthostatic tachycardia syndrome) (Primary Dx) Discharge Disposition: Discharged to home or self care (routine discharge) 01/17/2024 12:05 PM CDT - 01/17/2024 11:59 PM CDT Hospital Encounter [facility] Lab [address] [place] [address] Shahbaz Urias MD Discharge Disposition: Discharged to home or self care (routine discharge) 01/17/2024 Travel 01/03/2024 3:00 PM CDT Telemedicine [facility] Sleep Center [address] [place] [address] Trip Nieto MD Insomnia, unspecified type (Primary [...] Comments Blood Pressure 116/79 11/24/2023 1:18 PM INFECTION CONTROL PRACTITIONER Pulse 104 11/24/2023 1:18 PM INFECTION CONTROL PRACTITIONER Temperature 36.4 ??C (97.5 ??F) 06/14/2023 9:28 AM CD T Respiratory Rate 18 06/14/2023 9:28 AM CDT Oxygen Saturation 99% 06/14/2023 9:28 AM CDT Inhaled Oxygen Concentration - - Weight 89.4 kg (197 lb) 11/24/2023 1:18 PM INFECTION CONTROL PRACTITIONER Height 170.8 cm (5' 7.24) 06/08/2023 8:18 [...] 21-29 07/01/2026 07/01/2023 TD/TDAP ADULTS 03/30/2033 03/30/2023, 03/2 02/2021, 02/19/2014, Additional history exists HIB Completed 07/16/2004, [...] PM CDT POTS (postural orthostatic tachycardia syndrome) PAP TEST Routine 07/01/2023 3:00 PM CDT HIV COMBO Routine 11/26/2022 2:16 PM INFECTION CONTROL PRACTITIONER URINE CHLAMYDIA AND NEISSERIAE GONORRHOEAE AMPLIFICATION Routine 11/26/2022 1:42 PM INFECTION CONTROL PRACTITIONER from Last 3 Months or Most Recently [...] 67.24 Inches RICHIE D Patient Number ?? [id number] ?Weight ? 197 Pounds Date of ?2000 ? BSA ?2.01 m^2 Age ?23 ? Tape Number Gender ? Female ? Study Date ? 01/17/2024 12:20 PM Triple Drum Operator ?PC ? Ordering Provider ??NINI CORONA A Referring ?SIMEGN SHAHBAZ ??Interpreting ? Iain Tyler MD Physician ?A ?Physician ?[id number] Type of Study: TTE procedure: 2D echocardiogram, [...] Height 67.24 Inches RICHIE D Patient Number [id number] Weight 197 Pounds Date of 2000 BSA 2.01 m^2 Age 23 Tape Number Gender Female Study Date 01/17/2024 12:20 PM Triple Drum Operator PC Ordering Provider NINI Madrigal Referring NINI CORONA Interpreting Iain Tyler MD Physician A Physician [id number] Type of Study: TTE procedure: 2D echocardiogram, [...] True True True True Shahbaz Urias MD RAD ECHO [facility] from Last 3 Months or Most Recently Relevant to Health Maintenance Advance Directives For more information, please contact: [phone] * Full Code (Latest Code Status on File) Date Activated Date Inactivated Comments 06/08/2023 10:12 PM 06/15/2023 1:52 PM Question Answer Comments Does the Patient have prefer ences regarding life sustaining measures (these options only apply when the patient has a pulse): No Discussed Code Status With Whom? Not discussed Care Teams Principal Technologist Relationship Specialty Start Date End Date Alfred Lambert, PIERCER, GUARD SUPERVISOR [address] [place] [address] PCP - General Internal Medicine 01/17/24
--- OUTSIDE RECORDS SUMMARY | 2024-03-20 10:08 | XMS_ITS | Encounter Summary ---
Author Organization [facility] Address [address] [facility] [place] [address] Care Team Providers Care Manager Practice Name Role Phone Abbey Bagley PA-C Unavailable Unavailable Abbey Bagley PA-C Primary Care Provider Unava ilable Ino Robbins MD Unavailable [phone] Reason for Visit * Reason Onset Date Comments Care 04/26/2023 Encounter Details Date Type Department Care Team (Late st Contact Info) Description 04/26/2023 MyC Medical Advice [facility] [address] [place] [phone] Ino Robbins MD [address] [place], [place] [phone] Care Social History Tobacco Use Types Packs/Day Years Used Date Smoking Tobacco: Former Cigarettes Q uit: 03/10/2023 Passive Smoke Exposure: Never Smokeless Tobacco: Never Alcohol Use Standard Drinks/Week Comments Not Currently 0 (1 standard drink = 0.6 oz pur e alcohol) Seldom PHQ-2 Answer Date Recorded PHQ-2 Score 0 04/14/2023 [place] Depression Scale Answer Date Recorded [place] Depression Score 13 03/10/2021 Last EPDS Self [...] as of this encounter Care Teams Manager Practice Relationship Specialty Start Date End Date Abbey Bagley PA-C PCP - General Physician Sports Broadcasting Internship 08/15/20 Abbey Bagley PA-C Physician Sports Broadcasting Internship 04/11/20 05/02/23 Ino Robbins MD [address] [place] [address] Assigned OBGYN Provider 01/01/23 documented as of this encounter
--- OUTSIDE RECORDS SUMMARY | 2024-03-20 10:08 | XMS_ITS | Referral Summary ---
Author Organization [facility] Address [address] [place] [address] Phone Care Team Providers Care Collision Estimator Name Role Phone Alfred Lambert APRN, CNP Primary Care Provider Source Comments [employer] is fully rolled out on [employer]. Last update 03/14/09.[facility] [employer] Encounters Date Type Department Care Team Description 02/17/2024 11:30 AM CDT Erroneous Encounter [facility] [address] [place], [place] [address] Ray Cutler PA-C ERRONEOUS ENCOUNTER-DISREGARD (Primary Dx) 01/24/2024 3:00 PM CDT [facility] [address] [address] Justina Bowser APRN, CNP POTS (postural orthostatic tachycardia syndrome) (Primary Dx) Discharge Disposition: Discharged to home or self care (routine discharge) 01/17/2024 Travel 01/17/2024 12:05 PM CDT - 01/17/2024 11:59 PM CDT Hospital Encounter [facility] [address] [place] [address] Cj Urias MD Discharge Disposition: Discharged to home or self care (routine discharge) 01/03/2024 3:00 PM CDT Telemedicine [facility] [address] [place], [place] [phone] Trip Nieto MD Insomnia, unspecified type (Primary [...] (major depressive disord er), recurrent episode, moderate ([facility]) 08/19/2023 Suicidal ideation 06/09/2023 Asthma ([facility]) 06/08/2023 06/08/2023 Essential hypertension in patient ([facility]) 06/08/2023 06/08/2023 Hypertension 06/08/2023 06/08/2023 Iron deficiency anemia 06/08/2023 Anxiety 06/08/2023 06/08/2023 Anxiety disorder, unspecified type 06/08/2023 Bipolar II disorder ([facility]) 05/09/2023 PTSD (post-traumatic stress disorder) 05/09/2023 Eclampsia ([facility]) 05/05/2023 06/08/2023 History of depression 05/05/2023 06/08/2023 Iron deficiency 12/23/2020 06/08/2023 Chronic GERD 01/24/2020 06/08/2023 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 Encounter for screening 02/05/2005 06/08/20 23 Overview: LW Onset: [id number] ; Child and Teen Check Up Needs [...] Comments Blood Pressure 116/79 11/24/2023 1:18 PM METER INSTALLER Pulse 104 11/24/2023 1:18 PM METER INSTALLER Temperature 36.4 ??C (97.5 ??F) 06/14/2023 9:28 AM CD T Respiratory Rate 18 06/14/2023 9:28 AM CDT Oxygen Saturation 99% 06/14/2023 9:28 AM CDT Inhaled Oxygen Concentration - - Weight 89.4 kg (197 lb) 11/24/2023 1:18 PM METER INSTALLER Height 170.8 cm (5' 7.24) 06/08/2023 8:18 PM CD T Body Mass Index 30.63 06/08/2023 8:18 PM CDT Plan of Treatment Not on file Procedures Procedure Name Priority Date/Time Associated Diagnosis Comments ECH TRANSTHOR (TTE) COMPLETE WITHOUT CONTRAST Routine 01/17/2024 1:01 PM CDT POTS (postural orthostatic tachycardia syndrome) PAP TEST Routine 07/01/2023 3:00 PM CDT HIV COMBO Routine 11/26/2022 2:16 PM METER INSTALLER URINE CHLAMYDIA AND NEISSERIAE GONORRHOEAE AMPLIFICATION Routine 11/26/2022 1:42 PM METER INSTALLER from Last 3 Months or Most Recently [...] HEARTLAB 01/17/2024 12:0 5 PM CDT Narrative [facility] - 01/17/2024 12:00 AM CDT Report Status:Finalized Transthoracic Echocardiography Report (TTE) Demographics Patient Name ? MARCIE ? Height ? 67.24 Inches MERRY D Patient Number ?? [id number] ?Weight ? 197 Pounds Date of ?2000 ? BSA ?2.01 m^2 Age ?23 ? Tape Number Gender ? Female ? Study Date ? 01/17/2024 12:20 PM Pipe Fitter Marine ?PC ? Ordering Provider ??SIMEGN CJ A Referring ?SIMEGN CJ ??Interpreting ? Iain Tyler MD Physician ?A ?Physician ?[id number] Type of Study: TTE procedure: 2D echocardiogram, [...] Height 67.24 Inches MERRY Quarles Patient Number [id number] Weight 197 Pounds Date of 2000 BSA 2.01 m^2 Age 23 Tape Number Gender Female Study Date 01/17/2024 12:20 PM Pipe Fitter Marine PC Ordering Provider NINI Madrigal Referring NINI CORONA Interpreting Iain Tyler MD Physician A Physician [id number] Type of Study: TTE procedure: 2D echocardiogram, [...] True True Cj Urias MD RAD ECHO [facility] from Last 3 Months or Most Recently Relevant to Health Maintenance Advance Directives For more information, please contact: [phone] * Full Code (Latest Code Status on File) Date Activated Date Inactivated Comments 06/08/2023 10:12 PM 06/15/2023 1:52 PM Question Answer Comments Does the Patient have prefer ences regarding life sustaining measures (these options only apply when the patient has a pulse): No Discussed Code Status With Whom? Not discussed Care Teams Collision Estimator Relationship Specialty Start Date End Date Alfred Lambert, CONFIGURATION RELEASE MANAGER, TEACHER KINDERGARTEN [address] [place] [address] PCP - General Internal Medicine 01/17/24
--- OUTSIDE RECORDS SUMMARY | 2024-03-20 10:08 | XMS_ITS | Referral Summary ---
Author Organization [facility] Address [address] [facility] [place] [address] Care Team Providers Care Banquet Manager Name Role Phone Abbey Bagley PA-C Primary Care Provider Ino Ken MD Unavailable [phone] Allergies No known active allergies Medications Medication [...] Answer Date Recorded PHQ-2 Score 0 04/14/2023 [place] Depression Scale Answer Date Recorded Last EPDS [...] ANTIGEN ANTIBODY COMBO Routine 11/26/2022 2:16 PM TRANSITIONS MANAGER Encounter for supervision of other normal in second trimester HEPATITIS C ANTIBODY Routine 11/26/2022 2:16 PM TRANSITIONS MANAGER Encounter for supervision of other normal in second trimester CHLAMYDIA TRACHOMATIS PCR Routine 11/26/2022 1:42 PM TRANSITIONS MANAGER Screen for STD (sexually transmitted disease) from Last 3 Months or Most Recently Relevant to Health Maintenance Results * HIV Antigen Antibody Combo (11/26/2022 2:16 PM TRANSITIONS MANAGER) HIV Antigen Antibody Combo Nonreactive Nonreactive 11/27/2022 2:46 PM TRANSITIONS MANAGER [facility] DO Comment:HIV-1 p24 Ag & HIV-1 /HIV-2 Ab Not Detected Blood BLOOD SPECIMEN / Unknown Venipuncture / Unknown 11/26/2022 2:16 PM TRANSITIONS MANAGER 11/26/2022 2:28 PM TRANSITIONS MANAGER Kelley Diane DO LAB - BLOOD ORDER [facility]PROT/ENDO [facility]Prot/Endo [address] [facility], [address] [phone] * Hepatitis C antibody (11/26/2022 2:16 PM TRANSITIONS MANAGER) Pathologist [facility] Hepatitis C Antibody Nonreactive Nonreactive 11/27/2022 2:46 PM TRANSITIONS MANAGER SPECIALTY CORE/PROT/EN DO Blood BLOOD SPECIMEN / Unknown Venipuncture / Unknown 11/26/2022 2:16 PM TRANSITIONS MANAGER 11/26/2022 2:28 PM TRANSITIONS MANAGER Narrative SPECIALTY CORE/PROT/ENDO - 11/27/2022 2:46 PM TRANSITIONS MANAGER Assay performance characteristics have not been established for newborns, infants, and children. Kelley Diane DO LAB - BLOOD ORDER [place] SPECIALTY CORE/PROT/ENDO Specialty Core/Prot/Endo [address] [facility], [address] [place] [address], [facility] [phone] * CHLAMYDIA TRACHOMATIS PCR (11/26/2022 1:42 PM TRANSITIONS MANAGER) Pathologist [facility] Chlamydia trachomatis Negative Negative 11/27/2022 12:55 PM TRANSITIONS MANAGER [facility] Comment:A negative result by newspaper press operator apprentice mediated amplification does not preclude the presence of C. trachomatis infection because results are dependent on proper and adequate collection, absence of inhibitors and sufficient rRNA to be detected. Swab CERVIX UTERI STRUCTURE / Unknown Non-blood Collection / Unknown 11/26/2022 1:42 PM TRANSITIONS MANAGER 11/26/2022 3:02 PM TRANSITIONS MANAGER Kelley Diane DO LAB - MICRO GENER AL ORDERABLES [facility] Inf. Diseases Diag. Lab [address] [facility], [address] [place] [address], [facility] [phone] from Last 3 Months or Most Recently Relevant to Health Maintenance Advance Directives For more information, please contact: [phone] * Full Code (Latest Code Status on [...] aisha nt/ legal decision maker Care Teams Banquet Manager Relationship Specialty Start Date End Date Abbey Bagley PA-C PCP - General Physician Fine Arts Instructor 08/15/20 Ino Robbins MD [address] [place] [address] Assigned OBGYN Provider 01/01/23
--- OUTSIDE RECORDS SUMMARY | 2024-03-20 10:08 | XMS_ITS | Encounter Summary ---
Author Organization [facility] Address [address] [place] [address] Phone Care Team Providers Care Slat Grader Name Role Phone Alfred Lambert APRN, CNP Primary Care Provider Reason for Referral * Consult/Test/Treat (Routine) - New Request Specialty Diagnoses / Procedures Referred By Bernardo belle Referred To Contact Physical Medicine and Rehab / PHYSICAL MEDICINE AND REHAB Diagnoses POTS (postural orthostatic tachycardia syndrome) Justina Bowser APRN, CNP [address] [place] [address] [facility] [address] [place] [address] Referral ID Status Reason Start Date Expiration Date V isits Requested Visits Authorized [id number] New Request 01/24/2024 01/23/2025 1 1 Reason for Visit * Reason Comments Follow-up Encounter Details Date Type Department Care Team (Late st Contact Info) Description 01/24/2024 3:00 PM CDT [facility] [address] [place] [address] Justina Bowser APRN, CNP [address] [address] POTS (postural orthostatic tachycardia syndrome) (Primary Dx) [...] this encounter Progress Notes * Justina Bowser, LUMBER RACKER, INVESTMENTS MANAGER - 01/24/2024 3:00 PM CDT Images from [...] Previous cardiovascular evaluation I personally reviewed today: [facility] TRANSTHORACIC ECHO (TTE) (01/17/2024 13:01) I personally [...] care of this very pleasant patient. Justina Bowesr APRN, LENNOX [facility] [address] 01/24/2024 14:42 CC: Alfred [...] not prevent her from receiving futurecare at [facility]. - Patient acknowledges risks of telemedicine and agrees to follow provider's recommendations. Patient consents to this service: Yes. Patient's Physical Location: Home Provider's Physical Location: Onsite at [facility] Participants in this Telemedicine Visit other than [...] Total Score: 7 08/22/20 23 11:05 AM MAT SEWER PHQ-2 Depression Total Score: 2 08/22/20 23 11:05 AM MAT SEWER documented as of this encounter Care Teams Slat Grader Relationship Specialty Start Date End Date Alfred Lambert APRN, CNP [address] [address] PCP - General Internal Medicine 01/17/24 documented as of this encounter
--- OUTSIDE RECORDS SUMMARY | 2024-03-20 10:08 | XMS_ITS | Encounter Summary ---
Author Organization [facility] Address [address] [place] [address] Phone Care Team Providers Care Money Room Teller Name Role Phone Alfred Lambert APRN, CNP Primary Care Provider Reason for Visit * Reason Onset Date Comments Erroneous encounter-disregard 02/27/2024 Encounter Details Date Type Department Care Team (Latest Contact Info) Description 02/17/2024 11:30 AM CDT Erroneous Encounter [facility] [address] [place] [address] [phone] Ray Cutler PA-C [address] [place], [place] [address] ERRONEOUS ENCOUNTER-DISREGARD (Primary Dx) Social History Tobacco [...] Depression Total Score: 7 08/22/20 11:05 AM BATTER MIXER PHQ-2 Depression Total Score: 2 08/22/20 11:05 AM BATTER MIXER documented as of this encounter Care Teams Money Room Teller Relationship Specialty Start Date End Date Alfred Lambert APRN, ELECTRICAL CONTROLS ASSEMBLER [address] [place] [address] PCP - General Internal Medicine 01/17/24 documented as of this encounter
--- OUTSIDE RECORDS SUMMARY | 2024-03-20 10:08 | XMS_ITS | Encounter Summary ---
Author Organization [facility] Address [facility] [place] [address] Care Team Providers Care Harbor Boat Pilot Name Role Phone Abbey Bagley PA-C Unavailable Unavailable Abbey Bagley PA-C Primary Care Provider Kelley Ko DO Unavailable Ino Robbins MD Unavailable [phone] Encounter Details Date Type Department Care Team (Late st Contact Info) Description 11/22/2022 [facility] Medical Advice [address] [place] [address] Di Sher RN Social History Tobacco Use Types Packs/Day Years Used Date Smoking Tobacco: Every Day Cigarettes Smokeless Tobacco: Never Alcohol Use Standard Drinks/Week Comments Not Currently 0 (1 standard drink = 0.6 oz pur e alcohol) Seldom PHQ-2 Answer Date Recorded PHQ-2 Score 2 11/26/2022 [place] Depression Scale Answer Date Recorded [place] Depression Score 13 03/10/2021 Last EPDS Self [...] Coronavirus/COVID-19? No / Unsure 11/17/2022 6:32 PM ELECTROMEDICAL EQUIPMENT TECHNICIAN documented as of this encounter Plan of Treatment Not on file documented as of this encounter Visit Diagnoses Not on filedocumented in this encounter Additional Health Concerns Assessment Noted Time PHQ-9 Depression Total Score: 19 021 3:52 PM CDT documented as of this encounter Care Teams Harbor Boat Pilot Relationship Specialty Start Date End Date Abbey Bagley PA-C PCP - General Physician Knife Grinder 08/15/20 Abbey Bagley PA-C Physician Knife Grinder 04/11/20 05/02/23 Kelley Diane DO [address] [address] Assigned OBGYN Provider 12/04/22 Ino Robbins MD [address] [place] [address] Assigned OBGYN Provider 01/01/23 documented as of this encounter
--- OUTSIDE RECORDS SUMMARY | 2024-03-20 10:08 | XMS_ITS | Encounter Summary ---
Author Organization [facility] Address [address] [place] [address] Phone Care Team Providers Care Gutter Installer Name Role Phone Unavailable Primary Care Provider [...] Total Score: 7 08/22/20 23 11:05 AM HIGH HEEL BUILDER PHQ-2 Depression Total Score: 2 08/22/20 23 11:05 AM HIGH HEEL BUILDER documented as of this encounter
--- OUTSIDE RECORDS SUMMARY | 2024-03-20 10:08 | XMS_ITS | Encounter Summary ---
Author Organization [facility] Address [address] [place] [address] Phone Care Team Providers Care Plastics Technician Name Role Phone Unavailable Primary Care Provider Unavailabl e Encounter Details Date Type Department Care Team (Latest Contact Info) Description 12/13/2023 9:50 AM TOOL AND DIE TECHNICIAN - 12/13/2023 11:59 PM [facility] Hospital Encounter [facility] [address] [address] Shahbaz Urias MD [address] [facility] [address] [place], [place] [address] Discharge Disposition: Discharged to home or self [...] note were not included. [facility] DIAGNOSTIC LAB[facility]AT[facility] DEPARTMENT OF NEUROLOGY [address] [place] [address] Autonomic Test Report Visit Date: 12/13/2023 Autonomic Test Page 6 of 6 Name: Merry Rooney Referring Physician: Candelaria Urias MD Gender: Female Date: 2000 Referring Institution: [facility] Cardiology Height: 5' 7 Weight: 195 lbs [...] Table: [place] - 2004 Normative data courtesy [facility] Autonomic Test Page 6 of 6 Heart Rate Deep Breathing Test Test Data Max Rate Min Rate Difference 81.6 56.6 25.0 88.9 54.3 34.6 85.7 55.3 30.4 93.0 58.5 34.5 90.9 59.4 31.5 88.2 52.2 36.1 Analysis Summary Average HR Difference: 32.0 E:I Ratio: 1.57 5th Percentile: 14.0 95th Percentile: 41.0 Norms Table: HRDB - 2004 Normative data courtesy of [facility] Autonomic Test Page 6 of 6 Tilt Table Test documented in this encounter Plan of Treatment Not on file documented as of this encounter Procedures Procedure Name Priority Date/Time Associated Diagnosis Comments AUTONOMIC Routine 12/13/2023 9:50 AM TOOL AND DIE TECHNICIAN POTS (postural orthostatic tachycardia syndrome) documented in this encounter Visit Diagnoses Diagnosis POTS (postural orthostatic tachycardia syndrome) Tachycardia, unspecified documented in this encounter Additional Health Concerns Assessment Noted Time PHQ-9 Depression Total Score: 7 08/22/20 23 11:05 AM TOOL AND DIE TECHNICIAN PHQ-2 Depression Total Score: 2 08/22/20 23 11:05 AM TOOL AND DIE TECHNICIAN documented as of this encounter
--- OUTSIDE RECORDS SUMMARY | 2024-03-20 10:08 | XMS_ITS | Clinical Summary ---
Author Organization [place] Address [address] [facility] [place] [address] Care Team Providers Care Assistant Project Manager Name Role Phone Abbey Bagley [...] Answer Date Recorded PHQ-2 Score 0 04/14/2023 [place] Depression Scale Answer Date Recorded Last EPDS [...] ANTIGEN ANTIBODY COMBO Routine 11/26/2022 2:16 PM PERSONAL TRAINER Encounter for supervision of other normal in second trimester HEPATITIS C ANTIBODY Routine 11/26/2022 2:16 PM PERSONAL TRAINER Encounter for supervision of other normal in second trimester CHLAMYDIA TRACHOMATIS PCR Routine 11/26/2022 1:42 PM PERSONAL TRAINER Screen for STD (sexually transmitted disease) from Last 3 Months or Most Recently Relevant to Health Maintenance Results * HIV Antigen Antibody Combo (11/26/2022 2:16 PM PERSONAL TRAINER) HIV Antigen Antibody Combo Nonreactive Nonreactive 11/27/2022 2:46 PM PERSONAL TRAINER [facility] DO Comment:HIV-1 p24 Ag & HIV-1 /HIV-2 Ab Not Detected Blood BLOOD SPECIMEN / Unknown Venipuncture / Unknown 11/26/2022 2:16 PM PERSONAL TRAINER 11/26/2022 2:28 PM PERSONAL TRAINER Kelley Diane DO LAB - BLOOD ORDER BROOKE [facility] C[facility]/PROT/ENDO [facility] Specialty Core/Prot/Endo [address] [facility] [address] Building, Room 3[address] [phone] * Hepatitis C antibody (11/26/2022 2:16 PM PERSONAL TRAINER) Hepatitis C Antibody Nonreactive Nonreactive 11/27/2022 2:46 PM PERSONAL TRAINER [facility]PROT/EN DO Blood BLOOD SPECIMEN / Unknown Venipuncture / Unknown 11/26/2022 2:16 PM PERSONAL TRAINER 11/26/2022 2:28 PM PERSONAL TRAINER Narrative SPECIALTY CORE/PROT/ENDO - 11/27/2022 2:46 PM PERSONAL TRAINER Assay performance characteristics have not been established for newborns, infants, and children. Kelley Diane DO LAB - BLOOD ORDER BROOKE SPECIALTY CORE/PROT/ENDO Specialty Core/Prot/Endo [address] [facility], [address] [place], [place] [address] [phone] * CHLAMYDIA TRACHOMATIS PCR (11/26/2022 1:42 PM PERSONAL TRAINER) Chlamydia trachomatis Negative Negative 11/27/2022 12:55 PM PERSONAL TRAINER [facility] Comment:A negative result by gravity meter operator mediated amplification does not preclude the presence of C. trachomatis infection because results are dependent on proper and adequate collection, absence of inhibitors and sufficient rRNA to be detected. Swab CERVIX UTERI STRUCTURE / Unknown Non-blood Collection / Unknown 11/26/2022 1:42 PM PERSONAL TRAINER 11/26/2022 3:02 PM PERSONAL TRAINER Kelley Diane DO LAB - MICRO GENER AL ORDERABLES [facility] Inf. Diseases Diag. Lab [address] [facility], [address] [place] [address], [facility] [phone] from Last 3 Months or Most Recently Relevant to Health Maintenance Advance Directives For more information, please contact: [phone] * Full Code (Latest Code Status on [...] aisha nt/ legal decision maker Care Teams Assistant Project Manager Relationship Specialty Start Date End Date Abbey Bagley PA-C PCP - General Physician Screen Printing Inspector 08/15/20 Ino Robbins MD [address] [place] [address] Assigned OBGYN Provider 01/01/23
--- OUTSIDE RECORDS SUMMARY | 2024-03-20 10:08 | XMS_ITS | Encounter Summary ---
Author Organization [place] Address [facility] [place] [address] Care Team Providers Care Math Specialist Name Role Phone Abbey Bagley PA-C Unavailable Unavailable Abbey Bagley PA-C Primary Care Provider Kelley Ko DO Unavailable Ino Robbins MD Unavailable Encounter Details Date Type Department Care Team (Late st Contact Info) Description 11/23/2022 [facility] Medical Advice [address] [place] [address] Di Sher RN Social History Tobacco Use Types Packs/Day Years Used Date Smoking Tobacco: Some Days Cigarettes Smokeless Tobacco: Never Alcohol Use Standard Drinks/Week Comments Not Currently 0 (1 standard drink = 0.6 oz pur e alcohol) Seldom PHQ-2 Answer Date Recorded PHQ-2 Score 2 11/26/2022 [place] Depression Scale Answer Date Recorded [place] Depression Score 13 03/10/2021 Last EPDS Self [...] Coronavirus/COVID-19? No / Unsure 11/26/2022 1:26 PM CLASSIFIED AD TAKER documented as of this encounter Plan of Treatment Not on file documented as of this encounter Visit Diagnoses Not on filedocumented in this encounter Additional Health Concerns Assessment Noted Time PHQ-9 Depression Total Score: 19 021 3:52 PM CDT documented as of this encounter Care Teams Math Specialist Relationship Specialty Start Date End Date Abbey Bagley PA-C PCP - General Physician Soil Analyst 08/15/20 Abbey Bagley PA-C Physician Soil Analyst 04/11/20 05/02/23 Kelley Diane DO [address] [address] Assigned OBGYN Provider 12/04/22 Ino Robbins MD [address] [place] [address] Assigned OBGYN Provider 01/01/23 documented as of this encounter
--- OUTSIDE RECORDS SUMMARY | 2024-03-20 10:09 | XMS_ITS | Encounter Summary ---
Author Organization [place] Address [address] [place] [address] Care Team Providers Care Associate Teacher Name Role Phone Abbey Bagley PA-C Unavailable Unavailable Abbey Bagley PA-C Primary Care Provider Unava ilable Ino Robbins MD Unavailable [phone] Azul Gilman DO Unavailable [phone] Kelley Diane DO Unavailable [phone] Ino Robbins MD Unavailable Reason for Visit * Reason Onset Date Comments Refill Request 04/02/2021 Encounter Details Date Type Department Care Team (Late st Contact Info) Description 04/02/2021 MyC Refill Initial Department Abbey Bagley PA-C [facility] Refill Request Social History Tobacco Use Types Packs/Day Years Used Date Smoking Tobacco: Every Day Cigarettes Smokeless Tobacco: Never Alcohol Use Standard Drinks/Week Comments Not Currently 0 (1 standard drink = 0.6 oz pur e alcohol) Seldom PHQ-2 Answer Date Recorded PHQ-2 Score 6 02/19/2021 [place] Depression Scale Answer Date Recorded [place] Depression Score 13 03/10/2021 Last EPDS Self [...] documented as of this encounter Care Teams Associate Teacher Relationship Specialty Start Date End Date Abbey Bagley PA-C PCP - General Physician Runner Man 08/15/20 Abbey Bagley PA-C Physician Runner Man 04/11/20 05/02/23 Ino Robbins MD [address] [place] [address] Assigned OBGYN Provider 03/08/21 Azul Gilman DO [address] [place] [address] Assigned Heart and Vascular Provider 03/08/21 09/10/22 Kelley Diane DO [address] [facility] [address] [place] [address] Assigned OBGYN Provider 12/04/22 Ino Robbins MD [address] [place] [address] Assigned OBGYN Provider 01/01/23 documented as of this encounter
--- OUTSIDE RECORDS SUMMARY | 2024-03-20 10:09 | XMS_ITS | Clinical Summary ---
Author Organization [facility] Address [place], [place] [address] Care Team Providers Care Hand Sizer Name Role Phone Staff, Other Clinical Primary [...] Department Care Team Description 03/01/[address] [facility] [phone] Comfort Platt, FORMULA TECHNICIAN from Last 3 Months Immunizations Name Administration Dates Next Due COVID-19 vaccine (On-Ramp Wireless-Bio NTech 30mcg/0.3mL) [place] 2021 DTaP 05/23/2007, 7,08/27/2004,08/27,2002,2002 [id number] (Pediarix) 07/16/2004,07/16/2004 HIB PRP-OMP (PedvaxHIB) 07/16/2004 HIB [...] Outcome GA Total Labor Labor/2nd/3rd Weight Sex Type Anes PTL Heather A1 A5 Name Clin 2020 Term 38w 2d 5h 55m 5h 20m/0h 32m/0h 03m 2.86 kg (6 lb 4.9 oz) M Vag-V acuum Epidur al N Livin g 8 9 Benjam in Austin Ledezma MD Complications: Intolera nce Delivery Location:[facility] ( [facility]OR AND DEL[facility]) 2022 Term 39w 3d Vag Livin g Last Filed Vital Signs Vital Sign Reading [...] - Increase reliability General Yes Praful Orozco, TOP POLISHER, HOUSEKEEPER CAREGIVER Note: Goal identified during: Initial Screening Status: [...] follow-up in two weeks to review her [facility] goals and get a status update [...] GOLD PLUS Routine 02/29/2024 4:15 PM CDT PLATEN PRESS FEEDER THIN PREP PAP SCREEN IMAGED Routine 07/01/2023 3:00 PM CDT GC CHLAMYDIA TRACH PROBE Routine 09/21/2022 1:00 PM SYSTEMS QA ANALYST Cramping affecting , antepartum ANTI HIV 1/2 Routine 09/11/2020 8:23 AM SYSTEMS QA ANALYST Encounter for supervision of normal first in first trimester ANTI HCV Routine 09/11/2020 8:23 AM SYSTEMS QA ANALYST Encounter for supervision of normal first in first trimester from Last 3 Months or Most Recently Relevant to Health Maintenance Results * QFT MITOGEN PERFORMABLE (02/29/2024 4:15 PM CDT) MITOGEN 10.00 IU/mL 03/02/2024 12:58 PM CDT [facility] Blood BLOOD SPECIMEN / Unknown Client Collect / Unknown 02/29/2024 4:15 PM CDT 03/01/2024 9:47 PM CDT Comfort Platt NP CHEMISTRY Performing Organization Address City/[facility] Co de Phone Number [facility] [address] [place] [address], [place] * QFT TB2 PERFORMABLE (02/29/2024 4:15 PM CDT) TB2 0.02 IU/mL 03/02/2024 11:32 AM CDT [facility] Blood BLOOD SPECIMEN / Unknown Client Collect / Unknown 02/29/2024 4:15 PM CDT 03/01/2024 9:47 PM CDT Comfort Platt NP CHEMISTRY Performing Organization Address [facility] Co de Phone Number [facility] [address] [place] [address], [place] * QFT TB1 PERFORMABLE (02/29/2024 4:15 PM CDT) TB1 0.00 IU/mL 03/02/2024 11:33 AM CDT [facility] Blood BLOOD SPECIMEN / Unknown Client Collect / Unknown 02/29/2024 4:15 PM CDT 03/01/2024 9:47 PM CDT Comfort Platt NP CHEMISTRY Performing Organization Address [facility] Co de Phone Number [facility] [address] [place] [address], [place] * QUANTIFERON TB GOLD PLUS (02/29/2024 4:15 PM CDT) QFTP NIL 0.00 03/02/2024 2:53 PM CDT [facility] TB1 0.00 IU/mL 03/02/2024 2:53 PM CDT [facility] TB2 0.02 IU/mL 03/02/2024 2:53 PM CDT [facility] MITOGEN 10.00 IU/mL 03/02/2024 2:53 PM CDT [facility] QFTP TB AG1 - NIL 0.00 024 2:53 PM CDT [facility] TB1-NIL % OF NIL 03/02/20 2:53 PM CDT [facility] Comment:Unable to calculate QFTP TB AG2 - NIL 0.02 024 2:53 PM CDT [facility] TB2-NIL % OF NIL 03/02/20 2:53 PM CDT [facility] Comment:Unable to calculate QFTP MITOGEN - NIL 10.00 2023 2:53 PM CDT [facility] QFTP QUANTIFERON INTERPRETATION Negative Negative 03/02/2024 2:53 PM CDT [facility] Blood BLOOD SPECIMEN / Unknown Client Collect / Unknown 02/29/2024 4:15 PM CDT 03/01/2024 9:47 PM CDT [facility] LAB[facility]AT[facility] - 03/02/2024 2:53 PM CDT [...] old. - women Comfort Platt NP [facility] [address] [place] [address], * PLATEN PRESS FEEDER THIN PREP PAP SCREEN IMAGED (07/01/2023 3:00 PM CDT) Case Report Gynecologic Cytology Report ? Case: [id number] ? Authorizing Provider: ??Denise Fry, FORMULA TECHNICIAN ?? Collected: ? 07/01/2023 1500 ? Ordering Location: ? [facility] ?Received: ?07/05/2023 1303 ? First Screen: ?Ino Enriquez ? Specimen: ?PLATEN PRESS FEEDER ThinPrep Vial Screening, Cervical ? 07/12/2023 9:32 AM CDT [facility] INTERPRETATION/ RESULT NEGATIVE FOR INTRAEPITHELIAL LESION OR MALIGNANCY (NIL) (none) 07/12/2023 9:32 AM CDT [facility] IMEN ADEQUACY Satisfactory for evaluation Endocervical component present Scant cellularity 07/12/2023 9:32 AM CDT [facility] HPV REQUEST HPV not requested 10/03/ 2023 9:32 AM CDT [facility]ORATORY Date of LMP 06/15/2023 07/12/2023 9:32 AM CDT [facility] Last Pap Result First Pap/Unknown 9:32 AM CDT [facility] Abnormal Pap or Lane [place] Bx in last 5 years No 07/12/2023 9:32 AM CDT [facility] Menstrual Status Regular Periods 07/12/2023 9:32 AM CDT [facility] ENTRAL LABORATORY [place] Bx Done Today No 07/12/2023 9:32 AM CDT [facility] Additional Information 07/12/2023 9:32 AM CDT [facility] Comment: Interpreted at [facility] - [address] [place] [id number] Automated Review Successful 07/12/2023 9:32 AM CDT [facility] Comment:Specimen processed s uccessfully by automated sound printer device, ThinPrep Imaging System, [employer] Note The pap test is a [...] and malignant lesions. 07/12/2023 9:32 AM CDT [facility] Other (Cervical) 07/01/2023 3:00 PM CDT 07/05/2023 1:03 PM CDT Denise Fry NP PATHOLOGY/CYTOLOG [facility] [address] [place] [address], * GC CHLAMYDIA TRACH PROBE (09/21/2022 1:00 PM SYSTEMS QA ANALYST) CHLAMYDIA PROBE Negative 5:24 PM SYSTEMS QA ANALYST [facility] TR[facility] LABORAT[facility] N GONORRHOEAE PROBE Negative 09/22/2022 5:24 PM SYSTEMS QA ANALYST [facility] Other VAGINAL SWAB / Unknown Non-Blood / Unknown 09/21/2022 1:00 PM SYSTEMS QA ANALYST 09/21/2022 1:49 PM SYSTEMS QA ANALYST Deborah Senior NP MICROBIOLOGY Performing Organization Address City/[facility]/ZIP Co de Phone Number [facility] [address] [place] [address], [place] * ANTI HCV (09/11/2020 8:23 AM SYSTEMS QA ANALYST) HEPATITIS C ANTIBODY Non-React kamran Non-React kamran 09/11/2020 12:51 PM SYSTEMS QA ANALYST [facility] Comment:Antibodies to HCV no t detected; does not exclude the possibility of exposure to HCV. Blood BLOOD SPECIMEN / Unknown Butterfly / Unknown 09/11/2020 8:23 AM SYSTEMS QA ANALYST 09/11/2020 8:24 AM SYSTEMS QA ANALYST Kira Turner DO SEND OUTS Performing Organization Address [facility] Co de Phone Number [facility] [address] [place] [address], [place] * ANTI HIV 1/2 (09/11/2020 8:23 AM SYSTEMS QA ANALYST) Pathologist [facility] HIV-1/HIV-2 ANTIBODY Non-Reacti ve Non-Reacti ve 09/11/2020 12:38 PM SYSTEMS QA ANALYST [facility] Comment:HIV-1 p24 and HIV-1/ HIV-2 Ab not detected. Blood BLOOD SPECIMEN / Unknown Butterfly / Unknown 09/11/2020 8:23 AM SYSTEMS QA ANALYST 09/11/2020 8:24 AM SYSTEMS QA ANALYST Kira Turner DO SEND OUTS [facility] [address] [place] [address], [place] from Last 3 Months or Most [...] 3:46 PM 08/18/2016 1:40 PM Care Teams Hand Sizer Relationship Specialty Start Date End Date Staff, Other Clinical . PCP - General 06/05/23
--- OUTSIDE RECORDS SUMMARY | 2024-03-20 10:09 | XMS_ITS | Encounter Summary ---
Author Organization [place] Address [address] [facility] [place] [address] Care Team Providers Care Septic Pump Truck Driver Name Role Phone Abbey Bagley PA-C Unavailable Unavailable Abbey Bagley PA-C Primary Care Provider Unava ilable Ino Robbins MD Unavailable Azul Gilman DO Unavailable [phone] Kelley Diane DO Unavailable Ino Robbins MD Unavailable Encounter Details Date Type Department Care Team (Late st Contact Info) Description 04/07/[address] [facility] [address] [place] [phone] Ino Robbins MD [address] [place] [address] Social History Tobacco Use Types Packs/Day Years Used Date Smoking Tobacco: Every Day Cigarettes Smokeless Tobacco: Never Alcohol Use Standard Drinks/Week Comments Not Currently 0 (1 standard drink = 0.6 oz pur e alcohol) Seldom PHQ-2 Answer Date Recorded PHQ-2 Score 6 02/19/2021 [place] Depression Scale Answer Date Recorded [place] Depression Score 13 03/10/2021 Last EPDS Self [...] documented as of this encounter Care Teams Septic Pump Truck Driver Relationship Specialty Start Date End Date Abbey Bagley PA-C PCP - General Physician Assorter Laundry 08/15/20 Abbey Bagley PA-C Physician Assorter Laundry 04/11/20 05/02/23 Ino Robbins MD [address] [place] [address] Assigned OBGYN Provider 03/08/21 Azul Gilman DO [address] [place] [address] Assigned Heart and Vascular Provider 03/08/21 09/10/22 Kelley Diane DO [address] [facility] [address] [place] [address] Assigned OBGYN Provider 12/04/22 Ino Robbins MD [address] [place] [address] Assigned OBGYN Provider 01/01/23 documented as of this encounter
== END 2024-02-29 16:16 | disposition home or self-care (01) ==
LOC: NFLDREF 03-20 10:05
PROVIDERS: PCP Nurse Practitioner Family; Referring Provider Nurse Practitioner Family; Visit Provider Nurse Practitioner Family
DX: Z11.9 Encounter for screening for infectious and parasitic diseases, unspecified (principal)
CPT/HCPCS: 86480; 86787

== ENCOUNTER 2024-03-13 16:00 | Outpatient (CLI) | payer MEDICAID, SELFPAY ==
--- OUTSIDE RECORDS SUMMARY | 2024-03-13 16:03 | XMS_ITS | Encounter Summary ---
Author Organization [facility] Address [address] [facility] [place] [address] Phone Care Team Providers Care Mate First Name Role Phone Alfred Lambert APRN, CNP Primary Care Provider Reason for Visit * Prior Authorization (Routine) - Closed Specialty Diagnoses / Procedures Referred By Contac t Referred To Contact CARDIOLOGY ECHO LAB Diagnoses POTS (postural orthostatic tachycardia syndrome) f/u POTS (postural orthostatic tachycardia syndrome) [G90.A] Procedures SD ECHO TTHRC R-T 2D W/WOM-MODE COMPL SPEC&COLR D Echo Lab [address] [place] [address] Referral ID Status Reason Start Date Expiration Date Visits Re quested Visits Authorized [id number] Closed 1 1 Encounter Details Date Type Department Care Team (Latest Contact Info) Description 01/17/2024 12:05 PM CDT - 01/17/2024 11:59 PM CDT Hospital Encounter [facility] Echo Lab [address] [facility] [address] [place], [place] [address] Shahbaz Urias MD [address] [place] [address] Discharge Disposition: Discharged to home or self [...] on file documented as of this encounter Medications at Time of Discharge Medication Sig Dispensed Refills Start Date End Date ferrous sulfate 325 mg oral TABSIndications:Iron Deficiency Take 1 tablet (325 mg) by mouth every Tuesday, Tuesday and Tuesday for Iron Deficiency 30 tablet 06/15/2023 valACYclovir (VALTREX) 500 mg oral TABSIndications:Herpes Simplex Infection Take 2 Tablets (1,000 mg) by mouth once daily for 5 days for HSV outbreaks as needed cyanocobalamin (VITAMIN B-12) 1000 mcg oral TABSIndications:Vitamin B12 Deficiency Take 1 tablet (1,000 mcg) by mouth daily. Indications: Inadequate Vitamin B12 albuterol (VENTOLIN HFA;PROVENTIL HFA;PROAIR) 108 (90 BASE) mcg/act inhalation inhalerIndications:Asth ma Inhale 1-2 puffs into the lungs every 4 hours as needed for wheezing or shortness of breath documented as of this encounter Plan of Treatment Not on file documented as of this encounter Procedures Procedure Name Priority Date/Time Associated Diagnosis Comments ECH TRANSTHOR (TTE) COMPLETE WITHOUT CONTRAST Routine 01/17/2024 1:01 PM CDT POTS (postural orthostatic tachycardia syndrome) documented in this encounter Results * ECH TRANSTHOR (TTE) COMPLETE WITHOUT CONTRAST (01/17/2024 1:01 PM CDT) AoV root 2.6 cm [facility] AoV int. 26.6 m/s [facility] mnAoV grad. 3 mmHg [facility] AoV peak 5.95 mmHg [facility] Aov area 2.46 cm2 [facility] I.medina sept. 0.74 cm [facility] left atri. 3.1 cm [facility] LV E diast 5.01 cm [facility] LV wall 0.86 cm [facility] LV E syst 3.53 cm [facility] LVEF Calc 63.89 % [facility] LVOT diam 2 cm [facility] LVOT int 20.8 m/s [facility] E wave / A wave 1.53 [facility] MV T 1/2 51 msec [facility] MVA jarett 0.634 m/s [facility] MVE jarett 0.968 m/s [facility] mitrl area 4.31 cm2 [facility] TDI E' jarett 0.14 m/s [facility] FS 29.54 % [facility] LVOT peak 4 mmHg [facility] LVOT mn 2 mmHg [facility] heart rate 91 bpm [facility] BPS 99 mmHg [facility] BPD 73 mmHg [facility] LAvol IDX 17 ml/m2 [facility] 012SF True [facility] 010 True [facility] 009 True [facility] 013 True [facility] 017 True [facility] 014SF True [facility] 902NO True [facility] 920NO True [facility] 018SF True [facility] 026SF True [facility] 020SF True [facility] 024SF True [facility] 01/17/2024 12:0 5 PM CDT Narrative [facility] - 01/17/2024 12:00 AM CDT Report Status:Finalized Transthoracic Echocardiography Report (TTE) Demographics Patient Name ? MARCIE ? Height ? 67.24 Inches RICHIE D Patient Number ?? [id number] ?Weight ? 197 Pounds Date of ?2000 ? BSA ?2.01 m^2 Age ?23 ? Tape Number Gender ? Female ? Study Date ? 01/17/2024 12:20 PM Staff Research Scientist ?PC ? Ordering Provider ??NINI Madrigal Referring ?NINI CORONA ??Interpreting ? Iain Tyler MD Physician ?A ?Physician ?[id number] Type of Study: TTE procedure: 2D echocardiogram, M-Mode, Doppler , Color Doppler, ECH TRANSTHORACIC ECHO (TTE) HR: 91 bpmBP: 99/73 mmHgPatient Status: Routine Study Location: Echo LabTechnical Quality: Good visualization Contrast Medium: Not Used - no IV access. Indications Indications for Study:Abnormal ECG. CONCLUSIONS SUMMARY Normal left ventricular cavity size. Normal estimated left ventricular ejection fraction . No wall motion abnormality . The estimated left ventricular ejection fraction is 60-65 %. Redundant submitral chordal tissue Tricuspid regurgitation jet is not adequate for estimation of PA systolic pressure. Based on IVC geometry, the right atrial pressure is probably normal. ADDITIONAL REMARKS There is redundant and highly mobile chordal tissue which can be associated with myxomatous mitral valves. Therefore while there is no evidence of prolapse or MR on this exam, a mildly myxomatous valve cannot be excluded. Signature Valves Mitral Valve Area (PHT): 4.31 cm^2 Peak E-Wave: 1 m/s ?Deceleration Time: 173 msec Peak A-Wave: 0.6 m/s Peak Gradient: 3.75 mmHg ?E/A Ratio: 1.53 P1/2t: 51 msec Tissue Doppler E' Medial Velocity: 0.14 m/s E' Lateral Velocity: 0.272 m/s Mitral Valve Summary Normal mitral valve structure without evidence for significant regurgitation. Redundant chordal tissue Aortic Valve Peak Velocity: 1.2 m/s ?Area (continuity): 2.46 cm^2 Peak Gradient: 5.95 mmHg ?Mean Velocity: 0.9 m/s Mean Gradient: 3 mmHg AV VTI: 26.6cm Aortic Valve Summary Trileaflet aortic valve with no evidence for significant regurgitation. The visualized portion of the proximal aorta is normal in size. No evidence for atherosclerosis of the aorta. Tricuspid Valve Tricuspid Valve Summary Normal tricuspid valve structure with no evidence for significant regurgitation. Pulmonic Valve Pulmonic Valve Summary Normal pulmonic valve structure without evidence for significant regurgitation. LVOT Peak Velocity: 1 m/s ?Mean Velocity: 0.7 m/s Peak Gradient: 4 mmHg ? Mean Gradient: 2 mmHg LVOT Diameter: 2 cm ? LVOT VTI: 20.8cm Structures Left Atrium LA Dimension: 3.1 cm ?LA Area: 15 cm^2 LA/Aorta: 1.19 ?LA Volume Index: 17ml/m^2 Left Atrium Summary Normal left atrial size. Left Ventricle Diastolic Dimension: 5.01 cm ?Systolic Dimension: 3.53 cm Septum Diastolic: 0.74 cm PW Diastolic: 0.86 cm ? Area Systolic: 13.8 cm^2 Area Diastolic: 28.3 cm^2 EF Calculated: 63.89% ? CI: 2.96 l/min*m^2 CO: 5.94 l/min LV EDV/LV EDV Index: 92.5 ml/46 m^2 FS: 29.54 % ? LV ESV/LV ESV Index: 33.4 ml/17 m^2 LV Length: 7.4 cm LVOT Diameter: 2 cm Stroke Volume: 65.31 ml Left Ventricle Summary Normal left ventricular cavity size. Normal estimated left ventricular ejection fraction . No wall motion abnormality . Pulmonary vein doppler is normal . Doppler tissue imaging is normal . Right Atrium RA Area: 12 cm^2 Right Atrium Summary Normal right atrial size. Right Ventricle Right Ventricle Summary Normal right ventricular size and function. Miscellaneous Aorta Aortic Root: 2.6 cm Ascending Aorta: 2.7 cm Asc. Aorta Index:1.34 cm/m^2 LVOT Diameter: 2 cm Vena Cava IVC Maximum: 1.58 cm ? IVC Minimum: 0.57 cm Miscellaneous Summary Inferior vena cava is normal in size with respiratory variation. Pericardium Pericardial Effusion Summary No evidence for pericardial effusion. Pleura Pleural Effusion Summary No evidence for pleural effusion. True True True True True True Procedure Note Iain Tyler MD - 01/17/2024 Report Status:Finalized Transthoracic Echocardiography Report (TTE) Demographics Patient Name MARCIE Height 67.24 Inches RICHIE D Patient Number [id number] Weight 197 Pounds Date of 2000 BSA 2.01 m^2 Age 23 Tape Number Gender Female Study Date 01/17/2024 12:20 PM Staff Research Scientist PC Ordering Provider NINI Madrigal Referring NINI CORONA Interpreting Iain Tyler MD Physician A Physician [id number] Type of Study: TTE procedure: 2D echocardiogram, M-Mode, Doppler , Color Doppler, ECH TRANSTHORACIC ECHO (TTE) HR: 91 bpmBP: 99/73 mmHgPatient Status: Routine Study Location: Echo LabTechnical Quality: Good visualization Contrast Medium: Not Used - no IV access. Indications Indications for Study:Abnormal ECG. CONCLUSIONS SUMMARY Normal left ventricular cavity size. Normal estimated left ventricular ejection fraction . No wall motion abnormality . The estimated left ventricular ejection fraction is 60-65 %. Redundant submitral chordal tissue Tricuspid regurgitation jet is not adequate for estimation of PAsystolic pressure. Based on IVC geometry, the right atrial pressure is probably normal. ADDITIONAL REMARKS There is redundant and highly mobile chordal tissue which can be associated with myxomatous mitral valves. Therefore while there is no evidence of prolapse or MR on this exam, a mildly myxomatous valvecannot be excluded. Signature Valves Mitral Valve Area (PHT): 4.31 cm^2 Peak E-Wave: 1 m/s Deceleration Time: 173 msec Peak A-Wave: 0.6 m/s Peak Gradient: 3.75 mmHg E/A Ratio: 1.53 P1/2t: 51 msec Tissue Doppler E' Medial Velocity: 0.14 m/s E' Lateral Velocity: 0.272 m/s Mitral Valve Summary Normal mitral valve structure without evidence for significant regurgitation. Redundant chordal tissue Aortic Valve Peak Velocity: 1.2 m/s Area (continuity): 2.46 cm^2 Peak Gradient: 5.95 mmHg Mean Velocity: 0.9 m/s Mean Gradient: 3 mmHg AV VTI: 26.6cm Aortic Valve Summary Trileaflet aortic valve with no evidence for significant regurgitation. The visualized portion of the proximal aorta is normal in size. No evidence for atherosclerosis of the aorta. Tricuspid Valve Tricuspid Valve Summary Normal tricuspid valve structure with no evidence for significant regurgitation. Pulmonic Valve Pulmonic Valve Summary Normal pulmonic valve structure without evidence for significant regurgitation. LVOT Peak Velocity: 1 m/s Mean Velocity: 0.7 m/s Peak Gradient: 4 mmHg Mean Gradient: 2 mmHg LVOT Diameter: 2 cm LVOT VTI: 20.8cm Structures Left Atrium LA Dimension: 3.1 cm LA Area: 15 cm^2 LA/Aorta: 1.19 LA Volume Index: 17ml/m^2 Left Atrium Summary Normal left atrial size. Left Ventricle Diastolic Dimension: 5.01 cm Systolic Dimension: 3.53 cm Septum Diastolic: 0.74 cm PW Diastolic: 0.86 cm Area Systolic: 13.8 cm^2 Area Diastolic: 28.3 cm^2 EF Calculated: 63.89% CI: 2.96 l/min*m^2 CO: 5.94 l/min LV EDV/LV EDV Index: 92.5 ml/46 m^2 FS: 29.54 % LV ESV/LV ESV Index: 33.4 ml/17 m^2 LV Length: 7.4 cm LVOT Diameter: 2 cm Stroke Volume: 65.31 ml Left Ventricle Summary Normal left ventricular cavity size. Normal estimated left ventricular ejection fraction . No wall motion abnormality . Pulmonary vein doppler is normal . Doppler tissue imaging is normal . Right Atrium RA Area: 12 cm^2 Right Atrium Summary Normal right atrial size. Right Ventricle Right Ventricle Summary Normal right ventricular size and function. Miscellaneous Aorta Aortic Root: 2.6 cm Ascending Aorta: 2.7 cm Asc. Aorta Index:1.34 cm/m^2 LVOT Diameter: 2 cm Vena Cava IVC Maximum: 1.58 cm IVC Minimum: 0.57 cm Miscellaneous Summary Inferior vena cava is normal in size with respiratory variation. Pericardium Pericardial Effusion Summary No evidence for pericardial effusion. Pleura Pleural Effusion Summary No evidence for pleural effusion. True True True True True True Shahbaz Urias MD [facility] documented in this encounter Visit Diagnoses Diagnosis POTS (postural orthostatic tachycardia syndrome) Tachycardia, unspecified documented in this encounter Additional Health Concerns Assessment Noted Time PHQ-9 Depression Total Score: 7 08/22/20 11:05 AM TILTROTOR CREW CHIEF PHQ-2 Depression Total Score: 2 08/22/20 11:05 AM TILTROTOR CREW CHIEF documented as of this encounter Care Teams Mate First Relationship Specialty Start Date End Date Alfred Lambert, HEALTH TECHNICAL WRITER, TECHNICAL SERVICES SPECIALIST [address] [place] [id number] PCP - General Internal Medicine 01/17/24 documented as of this encounter
--- OUTSIDE RECORDS SUMMARY | 2024-03-13 16:03 | XMS_ITS | Encounter Summary ---
Author Organization [facility] Address [address] [place] [address] Phone Care Team Providers Care Ward Secretary Name Role Phone Unavailable Primary Care Provider Unavailabl e Encounter Details Date Type Department Care Team (Latest Contact Info) Description 12/13/2023 9:50 AM STAVE INSPECTOR - 12/13/2023 11:59 PM [facility] Hospital Encounter [facility] [address] [address] Shahbaz Urias MD [address] [facility] [address] [place], [place] [phone] Discharge Disposition: Discharged to home or self [...] of breath documented as of this encounter Procedure Notes * Power Swan MD - 12/13/2023 10:00 AM CSTProcedure(s): AUTONOMIC Images from the original note were not included. [facility] DEPARTMENT OF NEUROLOGY [address] [place] [id number] Autonomic Test Report Visit Date: 12/13/2023 Autonomic Test Page 6 of 6 Name: Merry Rooney Referring Physician: Candelaria Urias MD Gender: Female Date: 2000 Ref[place] [facility] Height: 5' 7 Weight: 195 lbs Physician: Power Swan MD Visit Remarks: Query POTS Autonomic Test Page 6 of 6 Interpretation Axon reflex sweating was normal at the forearm, knee, ankle and foot. Heart rate responses to deep breathing and Valsalva maneuver were normal. Heart rate recording is suggestive of frequent PVC artifacts. Blood pressure responses to Valsalva maneuver were normal. Prior to head up tilt blood pressure is 115/72 with heart rate of 66. Upon tilting up the patient reports dizziness, nausea and visual changes, as heart rate immediately rises by 42 bpm. Heart rate quickly improved nearer to baseline as symptoms improve. She is tilted down after 11 minutes upright with improvement of symptoms and return of blood pressure and heart rate to near baseline. Conclusion The findings do not provide evidence of autonomic failure. There is normal postganglionic sudomotor function, normal cardiovagal function, and normal adrenergic function. During head up tilt, the patient had an excessive rise in heart rate (>30bpm) accompanied by symptoms of orthostasis but without blood pressure drop, meeting diagnostic criteria for postural orthostatic tachycardia syndrome (POTS). Power Swan M.D. Diplomate, ABPN, Neurology and Neuromuscular Medicine Department of Neurology MEDICATIONS TAKEN DID NOT TAKE: Last taken None Ativan 3 weeks Autonomic Test Page 6 of 6 Sweat Response Test Test Site Forearm Prox Leg Dist Leg Foot Total Volume (??L) 0.177 0.275 0.501 0.533 Totalized Time 10:00 10:00 10:00 10:00 Response Latency 1:19 1:28 1:09 1:42 Baseline Rate (nL/min) 37.2 23.6 28.8 89.8 Ending Offset (nL/min) 2.6 7.6 15.1 -18.5 5th Percentile 0.2 0.36 0.61 0.23 95th Percentile 2.78 3.17 2.85 3.07 Right Forearm Right Prox Leg Right Dist Leg Right Foot Autonomic Test Page 6 of 6 Valsalva Maneuver Test Test Data Max Rate Min Rate Ratio 133.3 56.1 2.38 Analysis Summary Greatest HR Ratio: 2.38 5th Percentile: 1.46 95th Percentile: 2.73 Norms Table: Valsalva - 2004 Normative data courtesy [facility] Autonomic Test Page 6 of 6 Heart Rate Deep Breathing Test Test Data Max Rate Min Rate Difference 81.6 56.6 25.0 88.9 54.3 34.6 85.7 55.3 30.4 93.0 58.5 34.5 90.9 59.4 31.5 88.2 52.2 36.1 Analysis Summary Average HR Difference: 32.0 E:I Ratio: 1.57 5th Percentile: 14.0 95th Percentile: 41.0 Norms Table: HRDB - 2004 Normative data courtesy of [facility] Autonomic Test Page 6 of 6 Tilt Table Test documented in this encounter Plan of Treatment Not on file documented as of this encounter Procedures Procedure Name Priority Date/Time Associated Diagnosis Comments AUTONOMIC Routine 12/13/2023 9:50 AM STAVE INSPECTOR POTS (postural orthostatic tachycardia syndrome) documented in this encounter Visit Diagnoses Diagnosis POTS (postural orthostatic tachycardia syndrome) Tachycardia, unspecified documented in this encounter Additional Health Concerns Assessment Noted Time PHQ-9 Depression Total Score: 7 08/22/20 23 11:05 AM STAVE INSPECTOR PHQ-2 Depression Total Score: 2 08/22/20 23 11:05 AM STAVE INSPECTOR documented as of this encounter
--- OUTSIDE RECORDS SUMMARY | 2024-03-13 16:03 | XMS_ITS | Encounter Summary ---
Author Organization [facility] Address [address] [place] [phone] Phone Care Team Providers Care Sole Painter Name Role Phone Unavailable Primary Care Provider Unavailabl e Encounter Details Date Type Department Care Team (Latest Contact Info) Description 12/13/2023 Travel Social History Tobacco Use Types Packs/Day [...] Total Score: 7 08/22/20 23 11:05 AM RAW STOCK MACHINE FEEDER PHQ-2 Depression Total Score: 2 08/22/20 23 11:05 AM RAW STOCK MACHINE FEEDER documented as of this encounter
--- OUTSIDE RECORDS SUMMARY | 2024-03-13 16:03 | XMS_ITS | Encounter Summary ---
Author Organization [facility] Address [address] [place] [phone] Phone Care Team Providers Care Powder Line Repairer Name Role Phone Alfred Lambert APRN, CNP Primary Care Provider Reason for Visit * Reason Onset Date Comments Erroneous encounter-disregard 02/27/2024 Encounter Details Date Type Department Care Team (Latest Contact Info) Description 02/17/2024 11:30 AM CDT Erroneous Encounter [facility] [address] [place] [address] [id number] Ray Cutler PA-C [address] [place], [place] [address] ERRONEOUS ENCOUNTER-DISREGARD (Primary Dx) Social History Tobacco Use Types [...] of this encounter Progress Notes * Ray Cutler PA-C - 02/17/2024 11:30 AM CDT This encounter was opened in error. Please disregard. documented in this encounter Plan of Treatment Not on file documented as of this encounter Visit Diagnoses Diagnosis ERRONEOUS ENCOUNTER-DISREGARD- Primary documented in this encounter Additional Health Concerns Assessment Noted Time PHQ-9 Depression Total Score: 7 08/22/20 11:05 AM ART THERAPY SPECIALIST PHQ-2 Depression Total Score: 2 08/22/20 11:05 AM ART THERAPY SPECIALIST documented as of this encounter Care Teams Powder Line Repairer Relationship Specialty Start Date End Date Alfred Lambert APRN, CORE DRILLER HELPER [address] [place] [id number] PCP - General Internal Medicine 01/17/24 documented as of this encounter
--- OUTSIDE RECORDS SUMMARY | 2024-03-13 16:03 | XMS_ITS | Encounter Summary ---
Author Organization [facility] Address [address] [place] [address] Phone Care Team Providers Care Power Press Tender Name Role Phone Unavailable Primary Care Provider Unavailabl e Reason for Referral * Consult/Test/Treat (Routine) - New Request Specialty Diagnoses / Procedures Referred By Bernardo belle Referred To Contact SLEEP NEUROLOGY Diagnoses Insomnia, unspecified type Trip Nieto MD [address] [place] [address] Tonny Gold PsyD, DIETER [address] [place] [id number] Referral ID Status Reason Start Date Expiration Date V isits Requested Visits Authorized [id number] New Request 01/03/2024 01/02/2025 1 1 Scheduling Instructions Since eclampsia and hospitalization has had of daughter and persisting anxiety about falling asleep in her bed. She chooses to fall asleep initially in a chair in a different room, still with difficulty. Please evaluate for CBT approach to insomnia and desensitization to anxiety when retiring to her bed. Thanks. Reason for Visit * Consult/Test/Treat (Routine) - Closed Specialty Diagnoses / Procedures Referred By Contac t Referred To Contact Neurology/Sleep / SLEEP NEUROLOGY Diagnoses Difficulty sleeping Alfred Lambert, KILN WORKER, BULK SAUSAGE CASING TIER OFF [address] [place] [id number] Referral ID Status Reason Start Date Expiration Date Visits Re quested Visits Authorized [id number] Closed 11/10/2023 11/09/2024 1 1 Encounter Details Date Type Department Care Team (Late st Contact Info) Description 01/03/2024 3:00 PM CDT Telemedicine [facility] [address] [place] [address] [id number] [place] [address] Trip Nieto MD [address] [place] [phone] Insomnia, unspecified type (Primary Dx) Discharge Disposition: Discharged to home or self [...] as of this encounter Progress Notes * Trip Nieto MD - 01/03/2024 3:00 PM CDT [facility] Merry Rooney : 2000 Sex: female Medical Decision Making: Assessment: 1. Multifactorial insomnia with psychophysiological component 2. S/p complicated with eclampsia and seizure, now doing well with healthy infant. 3. History of drug and alcohol use disorders in prolonged remission. 4. Anxiety disorder including nocturnal panic, improving, bipolar II, and OCD.. 5. No restless legs syndrome and no indication of sleep-disordered breathing 6. Possible POTS syndrome Plan: 1. Refer to Dr. Gomez for consideration of CBT for insomnia and to help desensitize her to anxiety when attempting to retire to her bed. This Telemedicine visit conducted by audio/video between the patient and provider, is a billable service. Patient verbally consented to this service - yes. Patient was informed that certain health care needs can be provided without an in-person physical exam. Necessary prescriptions can be sent directly to patient???s pharmacy. Lab work, if indicated, can be ordered now to be performed at a latertime. Patient's Physical Location: Home Provider's Physical Location: Offsite Participants in this Telemedicine Visit other than the patient/provided included: N/A This visit started at: 3:15pm and concluded at: 3:40pm, 15 min chart review and documentation.. This 23-year-old mother of 2 was referred from primary care to evaluate sleep disorder. Shesays that she has always had difficulty with sleep onset and maintenance but that this has been magnified since the recent of her child prior to which she had significant eclampsia and seizure.Since then she has had anxiety including nocturnal panic as well as difficulty falling asleep during which she would experience a number of hypnic jerks as well as inability to achieve persisting sleep. This is also included some dreaming near sleep onset as well as occasional sleep paralysis. She is not going directly to bed for sleep onset because of anxiety about the symptoms that led up to her eclampsia. She retires to a rocking chair in her living room between 11:30 PM and midnight. She has the television on for background sound which she has used for many years. She falls asleep after 30 to 60 minutes during which her thoughts are quite active and she may drift in and out of sleep. She feels reasonably relaxed but with heart racing and variable anxiety. Her thoughts are usually related to plansfor the following day or experiences from the previous day. She does not experience restless legs. She then sleeps until her daughter awakens her at some point between 1 and 3 AM. She will feed the child at that time and then return to her own bed when she can then fall asleep more readily. She sleeps best between 3 AM and about 8 AM and she awakens at some point between 7 and 9 AM usually in response to her children. She is out of bed then at latest 9 AM and feels incompletely rested at that time. She has nocturnal anxiety spells now about once weekly which represents an improvement. On those occasions her heart will race but she does not experience shortness of breath. She denies nightmare s. has said that she does not snore although she may move a good deal during sleep but without any apparent purposeful movement or complex behavior. 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 She is awake and alert throughout the dayand will not nap. She denies any daytime sleepiness even when stimulation diminishes. If she were to lie down during the day she would not sleep. She drinks only 1 or 2 cups of coffee in a week but otherwise does take decaffeinated coffee. He drinks soda rarely, does not smoke, and drinks no alcohol. Past medical history is notable for orthostatic tachycardia which is being evaluated as possible POTS syndrome. She has had 2 children, 1 following eclampsia and seizures as noted above. She has had her tubes removed. There is some history of asthma. She also has history of anxiety as well as drug and alcohol use disorders which have been in remission for a year. She sees mental health providers outside of [place]. Current medications include ferrous sulfate, valacyclovir, vitamin B12, and albuterol when needed. Family history includes father with insomnia related to drug and alcohol abuse or dependence in mother who has had on diagnosed insomnia difficulties. She is currently with 2 children and not currently working outside the home. There were no vitals filed for this visit. Estimated body mass index is 30.63 kg/m?? as calculated from the following: Height as of 06/08/23: 1.708 m (5' 7.24). Weight as of 11/24/23: 89.4 kg (197 lb). Physical Exam is difficult by video. She is neatly dressed and groomed. She relates comfortably with good eye contact. Speech is lucid and coherent. Mood seems euthymic and affect is appropriate. Thought is well organized without aberrant form or content. She appears cognitively intact in the interview situation. documented in this encounter Plan of Treatment Scheduled Referrals Name Type Priority Associated Diagnoses Orde r Schedule REFERRAL TO SLEEP CENTER - PSYCHOLOGIST Referral Routine Insomnia, unspecified type Ordered: 01/03/2024 documented as of this encounter Visit Diagnoses Diagnosis Insomnia, unspecified type- Primary documented in this encounter Additional Health Concerns Assessment Noted Time PHQ-9 Depression Total Score: 7 08/22/20 23 11:05 AM CLASSIFICATION AND TREATMENT DIRECTOR PHQ-2 Depression Total Score: 2 08/22/20 23 11:05 AM CLASSIFICATION AND TREATMENT DIRECTOR documented as of this encounter
--- OUTSIDE RECORDS SUMMARY | 2024-03-13 16:03 | XMS_ITS | Referral Summary ---
Author Organization [facility] Address [address] [place] [address] Phone Care Team Providers Care Clinical Review Specialist Name Role Phone Alfred Lambert APRN, CNP Primary Care Provider Source Comments [employer] is fully rolled out on [employer]. Last update 03/14/09.[place] Encounters Date Type Department Care Team Description 02/17/2024 11:30 AM CDT Erroneous Encounter [facility] [address] [place], [place] [id number] Ray Cutler PA-C ERRONEOUS ENCOUNTER-DISREGARD (Primary Dx) 01/24/2024 3:00 PM CDT [facility] [address] [address] Justina Bowser APRN, CNP POTS (postural orthostatic tachycardia syndrome) (Primary Dx) Discharge Disposition: Discharged to home or self care (routine discharge) 01/17/2024 Travel 01/17/2024 12:05 PM CDT - 01/17/2024 11:59 PM CDT Hospital Encounter [facility] [address] [place] [address] Cj Urias MD Discharge Disposition: Discharged to home or self care (routine discharge) 01/03/2024 3:00 PM CDT Telemedicine [facility] [address] [place], [place] [id number] Trip Nieto MD Insomnia, unspecified type (Primary Dx) Discharge Disposition: Discharged to home or self care (routine discharge) 12/13/2023 Travel 12/13/2023 9:50 AM [facility] - 12/13/2023 11:59 PM [facility] Hospital Encounter [facility] [address] [address] Cj Urias MD Discharge Disposition: Discharged to home or self care (routine discharge) from Last 3 Months Allergies Active Allergy Reactions Criticality Noted Date [...] 5 days for HSV outbreaks as needed Active cyanocobalamin (VITAMIN B-12) 1000 mcg oral TABSIndications:Vit aguilar B12 Deficiency Take 1 tablet (1,000 mcg) by mouth daily. Indications: Inadequate Vitamin B12 Active albuterol (VENTOLIN HFA;PROVENTIL HFA;PROAIR) 108 (90 BASE) mcg/act inhalation inhalerIndications: Asthma Inhale 1-2 puffs into the lungs every 4 hours as needed for wheezing or shortness of breath Active ferrous sulfate 325 mg oral TABSIndications:Iro n Deficiency Take 1 tablet (325 mg) by mouth every Tuesday, Tuesday and Tuesday for Iron Deficiency 30 tablet 06/15/2023 Active Active Problems Problem Noted Date Diagnosed Date POTS (postural orthostatic tachycardia syndrome) 12/13/2023 Obsessive-compulsive disorder 08/19/2023 Panic disorder 08/19/2023 MDD (major depressive disord er), recurrent episode, moderate (CMS) 08/19/2023 Suicidal ideation 06/09/2023 Asthma (HHS) 06/08/2023 06/08/2023 Essential hypertension in patient (HH S) 06/08/2023 06/08/2023 Hypertension 06/08/2023 06/08/2023 Iron deficiency anemia 06/08/2023 Anxiety 06/08/2023 06/08/2023 Anxiety disorder, unspecified type 06/08/2023 Bipolar II disorder ([facility] 05/09/2023 PTSD (post-traumatic stress disorder) 05/09/2023 Eclampsia ([facility]) 05/05/2023 06/08/2023 History of depression 05/05/2023 06/08/2023 Iron deficiency 12/23/2020 06/08/2023 Chronic GERD 01/24/2020 06/08/2023 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 Encounter for screening 02/05/2005 06/08/20 Overview: LW Onset: [id number] ; Child and Teen Check Up Needs Resolved Problems Problem Noted Date Diagnosed Date Resolved Date Acute encephalopathy 05/07/2023 06/08/2023 023 Social History Tobacco Use Types Packs/Day Years [...] Sign Reading Time Taken Comments Blood Pressure 116/79 11/24/2023 1:18 PM MOTOR EQUIPMENT COMMANDING OFFICER Pulse 104 11/24/2023 1:18 PM MOTOR EQUIPMENT COMMANDING OFFICER Temperature 36.4 ??C (97.5 ??F) 06/14/2023 9:28 AM CD T Respiratory Rate 18 06/14/2023 9:28 AM CDT Oxygen Saturation 99% 06/14/2023 9:28 AM CDT Inhaled Oxygen Concentration - - Weight 89.4 kg (197 lb) 11/24/2023 1:18 PM MOTOR EQUIPMENT COMMANDING OFFICER Height 170.8 cm (5' 7.24) 06/08/2023 8:18 PM CD T Body Mass Index 30.63 06/08/2023 8:18 PM CDT Plan of Treatment Not on file Procedures Procedure Name Priority Date/Time Associated Diagnosis Comments ECH TRANSTHOR (TTE) COMPLETE WITHOUT CONTRAST Routine 01/17/2024 1:01 PM CDT POTS (postural orthostatic tachycardia syndrome) AUTONOMIC Routine 12/13/2023 9:50 AM MOTOR EQUIPMENT COMMANDING OFFICER POTS (postural orthostatic tachycardia syndrome) PAP TEST Routine 07/01/2023 3:00 PM CDT HIV COMBO Routine 11/26/2022 2:16 PM MOTOR EQUIPMENT COMMANDING OFFICER URINE CHLAMYDIA AND NEISSERIAE GONORRHOEAE AMPLIFICATION Routine 11/26/2022 1:42 PM MOTOR EQUIPMENT COMMANDING OFFICER from Last 3 Months or Most Recently Relevant to Health Maintenance Results * ECH TRANSTHOR (TTE) COMPLETE WITHOUT [...] ? MARCIE ? Height ? 67.24 Inches MERRY D Patient Number ?? [id number] ?Weight ? 197 Pounds Date of ?2000 ? BSA ?2.01 m^2 Age ?23 ? Tape Number Gender ? Female ? Study Date ? 01/17/2024 12:20 PM Horticultural Specialty Grower [employer] ?PC ? Ordering Provider ??SIMEGN CJ A Referring ?SIMEGN CJ ??Interpreting ? Iain Tyler MD Physician ?A ?Physician ?[id number] Type of Study: TTE procedure: 2D echocardiogram, [...] Demographics Patient Name MARCIE Height 67.24 Inches MERRY D Patient Number [id number] Weight 197 Pounds Date of 2000 BSA 2.01 m^2 Age 23 Tape Number Gender Female Study Date 01/17/2024 12:20 PM [employer] PC Ordering Provider NINI Madrigal Referring NINI CORONA Interpreting Iain Tyler MD Physician A Physician [id number] Type of Study: TTE procedure: 2D echocardiogram, [...] effusion. True True True True True True Cj Urias MD [facility] from Last 3 Months or Most Recently Relevant to Health Maintenance Advance Directives For more information, please contact: [phone] * Full Code (Latest Code Status on File) Date Activated Date Inactivated Comments 06/08/2023 10:12 PM 06/15/2023 1:52 PM Question Answer Comments Does the Patient have prefer ences regarding life sustaining measures (these options only apply when the patient has a pulse): No Discussed Code Status With Whom? Not discussed Care Teams Clinical Review Specialist Relationship Specialty Start Date End Date Alfred Lambert, ONLINE COMMUNICATIONS MANAGER, ELASTIC YARN TWISTER HELPER [address] [place] [address] PCP - General Internal Medicine 01/17/24
--- OUTSIDE RECORDS SUMMARY | 2024-03-13 16:03 | XMS_ITS | Encounter Summary ---
Author Organization [facility] Address [address] [place] [address] Phone Care Team Providers Care Fellmongering Machine Operator Name Role Phone Alfred Lambert APRN, CNP Primary Care Provider Reason for Referral * Consult/Test/Treat (Routine) - New Request Specialty Diagnoses / Procedures Referred By Bernardo belle Referred To Contact Physical Medicine and Rehab / PHYSICAL MEDICINE AND REHAB Diagnoses POTS (postural orthostatic tachycardia syndrome) Justina Bowser APRN, CNP [address] [place] [address] [facility] [address] [place] [address] Referral ID Status Reason Start Date Expiration Date V isits Requested Visits Authorized [id number] New Request 01/24/2024 01/23/2025 1 1 Reason for Visit * Reason Comments Follow-up Encounter Details Date Type Department Care Team (Late st Contact Info) Description 01/24/2024 3:00 PM CDT [facility] [address] [place] [phone] Justina Bowser APRN, CNP [address] [address] POTS (postural orthostatic tachycardia syndrome) (Primary Dx) [...] as of this encounter Progress Notes * Justina Bowser, VET ASSISTANT, SPLICER MACHINE OPERATOR - 01/24/2024 3:00 PM CDT Images from the original note were not included. CARDIOLOGY OFFICE VISIT -- FOLLOW UP Merry Rooney : 2000 Sex: female DATE OF VISIT: 01/24/2024 FOR VISIT: follow up ASSESSMENT AND RECOMMENDATIONS: POTS (postural orthostatic tachycardia syndrome) Underwent autonomic testing 12/13/23 which revealed excessive rise in heart rate (>30 bpm) accompanied by symptoms of orthostasis but without blood pressure drop, meeting diagnostic criteria for postural orthostatic tachycardia syndrome (POTS) -ensure adequate hydration: aim for 3L fluid daily -increase sodium intake -use compression stockings -PT with POTS specialist RTC if symptoms worsen or do not improve SUMMARY OF CARDIOVASCULAR/RELEVANT MEDICAL HISTORY: Previous cardiovascular evaluation: summarized below POTS Mild carotid siphon atherosclerotic plaque HTN PVC HISTORY OF PRESENT ILLNESS: The patient was last seen in clinic 11/24/23 for cardiovascular evaluation of orthostatic intolerance. She was observed to have heart rate in supine position of 60s, when sitting HR 100, and standing 125 bpm. It was recommended she undergo formal testing for suggested postural orthostatic tachycardia syndrome. She underwent autonomic testing 12/13/23 which revealed excessive rise in heart rate (>30 bpm) accompanied by symptoms of orthostasis but without blood pressure drop, meeting diagnostic criteria forpostural orthostatic tachycardia syndrome (POTS). TTE 01/17/24 showed LVEF 60-65%, no wall motion abnormality, noraml left ventricular cavity size; redundant sub mitral chordal tissue. Today, she reports doing well. She reports being terrible at drinking fluid because she doesn't feel thirsty. Tends to consume about 40-50 oz a day. She denies any exertional chest pain, dyspnea, syncope, orthopnea, edema or paroxysmal nocturnal dyspnea. I reviewed pathophysiology, causes, and management in detail with pt today. All questions answered to their stated satisfaction. Review of Systems: Pertinent ROS are noted in HPI. Otherwise a 10-point ROS was negative. Cardiac medications were reviewed and reconciled. Problem list reviewed and updated. Review of laboratory, radiology, imaging and pathology: see cardiac imaging reviewed below, No results found for: NA, K, CHLORIDE, CO2, GLU, UN, CR, CA Lab Results Component Value Date LPCHOL 152 06/11/2023 TRIGLYCERIDE 104 06/11/2023 HDL 46 (L) 06/11/2023 CALCLDL 85 06/11/2023 No results found for: HGBA1C Previous cardiovascular evaluation I personally reviewed today: [facility] TRANSTHORACIC ECHO (TTE) (01/17/2024 13:01) I personally reviewed the results listed above. Review of External Documents: see HPI, cardiology, neurology Social Determinants of Health Considered in above decision making: co-morbidities I have reviewed the patient's allergies, family history, medical history, social history, and surgical history as outlined in Epic. PHYSICAL EXAMINATION: There were no vitals filed for this visit. There is no height or weight on file to calculate BMI. NA Thank you for allowing us to take care of this very pleasant patient. Justina Bowser APRN, [place] [facility] [address] 01/24/2024 14:42 CC: Alfred Lambert APRN, CNP Telemedicine: Telephone Visit: This telemedicine visit is conducted by audio-only technology between the patient and provider. Patient was informed that: - Certain health care needs can be provided without an in-person exam - Telemedicine may limit provider's ability to fully diagnose a condition/disease. - Services are billable. - Patient may ask questions at any time during telephone visit. - Patient may opt out of telephone visit at any time and will not prevent her from receiving futurecare at [facility]. - Patient acknowledges risks of telemedicine and agrees to follow provider's recommendations. Patient consents to this service: Yes. Patient's Physical Location: Home Provider's Physical Location: Onsite at [facility] Participants in this Telemedicine Visit other than the patient/provided included: N/A This visit started at: 2:55 PM and concluded at: 3:10 PM. Total time spent on this audio-only encounter, on the date of service, including pre-visit review of separately obtained history, patient counseling/education, interpretation of diagnostic results, care coordination and documentation was 30 minutes. documented in this encounter Plan of Treatment Scheduled Referrals Name Type Priority Associated Diagnoses Orde r Schedule REFERRAL TO PHYSICAL MEDICINE & REHABILITATION Referral Routine POTS (postural orthostatic tachycardia syndrome) Ordered: 01/24/2024 documented as of this encounter Visit Diagnoses Diagnosis POTS (postural orthostatic tachycardia syndrome)- Primary Tachycardia, unspecified documented in this encounter Additional Health Concerns Assessment Noted Time PHQ-9 Depression Total Score: 7 08/22/20 23 11:05 AM BLASTING COAL MINER PHQ-2 Depression Total Score: 2 08/22/20 23 11:05 AM BLASTING COAL MINER documented as of this encounter Care Teams Fellmongering Machine Operator Relationship Specialty Start Date End Date Alfred Lambert APRN, CNP [address] [address] PCP - General Internal Medicine 01/17/24 documented as of this encounter
--- OUTSIDE RECORDS SUMMARY | 2024-03-13 16:03 | XMS_ITS | Encounter Summary ---
Author Organization [facility] Address [address] [place] [address] Phone Care Team Providers Care Mock Up Assembler Name Role Phone Alfred Lambert APRN, CNP Primary Care Provider Encounter Details Date Type Department Care Team (Latest Contact Info) Description 01/17/2024 Travel Social History Tobacco Use Types Packs/Day [...] Total Score: 7 08/22/20 23 11:05 AM CLEAT FEEDER PHQ-2 Depression Total Score: 2 08/22/20 23 11:05 AM CLEAT FEEDER documented as of this encounter Care Teams Mock Up Assembler Relationship Specialty Start Date End Date Alfred Lambert APRN, CNP [address] [place] [address] PCP - General Internal Medicine 01/17/24 documented as of this encounter
--- OUTSIDE RECORDS SUMMARY | 2024-03-13 16:03 | XMS_ITS | Clinical Summary ---
Author Organization [employer] Address [address] [place] [address] Phone Care Team Providers Care Program Manager Slp Name Role Phone Alfred Lambert APRN, CNP Primary Care Provider Source Comments [employer] is fully rolled out on Shock Treatment Management. 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 Encounter for screening 02/05/2005 06/08/20 Overview: LW Onset: [id number] ; Child and Teen Check Up Needs Resolved Problems Problem Noted Date Diagnosed Date Resolved Date Acute encephalopathy 05/07/2023 06/08/2023 023 Encounters Date Type Department Care Team Description 02/17/2024 11:30 AM CDT Erroneous Encounter [facility] [address] [place] [address] Ray Cutler PA-C ERRONEOUS ENCOUNTER-DISREGARD (Primary Dx) 01/24/2024 3:00 PM CDT [facility] [address] [address] Justina Bowser APRN, RETORT FEEDER GROUND BONE POTS (postural orthostatic tachycardia syndrome) (Primary Dx) Discharge Disposition: Discharged to home or self care (routine discharge) 01/17/2024 12:05 PM CDT - 01/17/2024 11:59 PM CDT Hospital Encounter [facility] [address] [place] [address] Cj Urias MD Discharge Disposition: Discharged to home or self care (routine discharge) 01/17/2024 Travel 01/03/2024 3:00 PM CDT Telemedicine [facility] [address] [place] [address] Trip Nieto MD Insomnia, unspecified type (Primary Dx) Discharge Disposition: Discharged to home or self care (routine discharge) 12/13/2023 9:50 AM CHUTE WORKER - 12/13/2023 11:59 PM CHUTE WORKER [facility] [address] [address] Cj Urias MD Discharge Disposition: Discharged to home or self care (routine discharge) 12/13/2023 Travel from Last 3 Months Social History Tobacco [...] Comments Blood Pressure 116/79 11/24/2023 1:18 PM CHUTE WORKER Pulse 104 11/24/2023 1:18 PM CHUTE WORKER Temperature 36.4 ??C (97.5 ??F) 06/14/2023 9:28 AM CD T Respiratory Rate 18 06/14/2023 9:28 AM CDT Oxygen Saturation 99% 06/14/2023 9:28 AM CDT Inhaled Oxygen Concentration - - Weight 89.4 kg (197 lb) 11/24/2023 1:18 PM CHUTE WORKER Height 170.8 cm (5' 7.24) 06/08/2023 8:18 PM CD T Body Mass Index 30.63 06/08/2023 8:18 PM CDT Plan of Treatment Health Maintenance Due Date Last Done Comments Asthma Action Plan 2002 Asthma Control Test 2002 Dental Oral Exam 2002 Dental Prophylaxis 2002 Dental X-Ray: Bitewings 2002 Well Child Check 2005 Imm: Pneumonia Peds or At-Risk less than 65 years (1 of 2 - PCV) 2008 07/16/2004, 07/16/2004, 2002, Additional history exists Periodontal Maintenance 2016 HEALTH MAINTENANCE PROTOCOL 2021 HPV (3 - 3-dose series) 01/13/2022 10/21/2021, 07/01 PREVENTATIVE VISIT 10/21/2022 10/21/2021 INFLUENZA VACCINE 05/10/2023 10/21/2021, , 08/20/2008, Additional history exists COVID-19 Vaccine ( season) 2023 09/30/2021, 2021 Chlamydia & Gonorrhea Screening 11/26/2023 11/26/2022, 09/21/2022, 10/21/2021, Additional history exists Depression Management 02/20/2024 08/22/2023 Cervical Cancer Screening Age 21-29 07/01/2026 07/01/2023 TD/TDAP ADULTS 03/30/2033 03/30/2023, 12/09, 02/19/2014, Additional history exists HIB Completed 07/16/2004, 2002 Imm: HepB Completed 07/08/2022, 04/2004, 2002, Additional history exists HIV Screening Completed 11/26/2022, 12/2019, 07/01/2020, Additional history exists RSV Infant Immunoglobulin Aged Out No longer eligible based on patient's age to complete this topic Procedures Procedure Name Priority Date/Time Associated Diagnosis Comments ECH TRANSTHOR (TTE) COMPLETE WITHOUT CONTRAST Routine 01/17/2024 1:01 PM CDT POTS (postural orthostatic tachycardia syndrome) AUTONOMIC Routine 12/13/2023 9:50 AM CHUTE WORKER POTS (postural orthostatic tachycardia syndrome) PAP TEST Routine 07/01/2023 3:00 PM CDT HIV COMBO Routine 11/26/2022 2:16 PM CHUTE WORKER URINE CHLAMYDIA AND NEISSERIAE GONORRHOEAE AMPLIFICATION Routine 11/26/2022 1:42 PM CHUTE WORKER from Last 3 Months or Most Recently [...] HEARTLAB 01/17/2024 12:0 5 PM CDT Narrative [facility] - 01/17/2024 12:00 AM CDT Report Status:Finalized Transthoracic Echocardiography Report (TTE) Demographics Patient Name ? MARCIE ? Height ? 67.24 Inches MERRY D Patient Number ?? [id number] ?Weight ? 197 Pounds Date of ?2000 ? BSA ?2.01 m^2 Age ?23 ? Tape Number Gender ? Female ? Study Date ? 01/17/2024 12:20 PM Raspberry Checker ?PC ? Ordering Provider ??FAWNEGFeng PULLIAMCJ A Referring ?SIMEGN JC ??Interpreting ? Iain Tyler MD Physician ?A ?Physician ?[id number] Type of Study: TTE procedure: 2D echocardiogram, [...] True True True True True Procedure Note Nunnelly, Iain R, MD - 01/17/2024 Report Status:Finalized Transthoracic Echocardiography Report (TTE) Demographics Patient Name MARCIE Height 67.24 Inches MERRY Quarles Patient Number [id number] Weight 197 Pounds Date of 2000 BSA 2.01 m^2 Age 23 Tape Number Gender Female Study Date 01/17/2024 12:20 PM Raspberry Checker PC Ordering Provider NINI Madrigal Referring NINI CORONA Interpreting Iain Tyler MD Physician A Physician [id number] Type of Study: TTE procedure: 2D echocardiogram, [...] True True True True Cj Urias MD RAD ECHO [facility] from Last 3 Months or Most Recently Relevant to Health Maintenance Advance Directives For more information, please contact: [phone] * Full Code (Latest Code Status on File) Date Activated Date Inactivated Comments 06/08/2023 10:12 PM 06/15/2023 1:52 PM Question Answer Comments Does the Patient have prefer ences regarding life sustaining measures (these options only apply when the patient has a pulse): No Discussed Code Status With Whom? Not discussed Care Teams Program Manager Slp Relationship Specialty Start Date End Date Alfred Lambert, NEWSPAPER STUFFER, RETORT FEEDER GROUND BONE [address] [place] [address] PCP - General Internal Medicine 01/17/24
--- OUTSIDE RECORDS SUMMARY | 2024-03-13 16:04 | XMS_ITS | Encounter Summary ---
Author Organization [facility] Address [address] [facility] [address] Care Team Providers Care Yardage Control Operator Name Role Phone Abbey Bagley PA-C Unavailable Unavailable Abbey Bagley PA-C Primary Care Provider Unava ilable Ino Robbins MD Unavailable Reason for Visit * Reason Onset Date Comments Care 04/26/2023 Encounter Details Date Type Department Care Team (Late st Contact Info) Description 04/26/2023 MyC Medical Advice [facility] [address] [place] [phone] Ino Robbins MD [address] [place], [place] [address] Care Social History Tobacco Use Types Packs/Day Years Used Date Smoking Tobacco: Former Cigarettes Q uit: 03/10/2023 Passive Smoke Exposure: Never Smokeless Tobacco: Never Alcohol Use Standard Drinks/Week Comments Not Currently 0 (1 standard drink = 0.6 oz pur e alcohol) Seldom PHQ-2 Answer Date Recorded PHQ-2 Score 0 04/14/2023 [place] Depression Scale Answer Date Recorded [place] [...] documented as of this encounter Care Teams Yardage Control Operator Relationship Specialty Start Date End Date Abbey Bagley PA-C PCP - General Physician Programming Director 08/15/20 Abbey Bagley PA-C Physician Programming Director 04/11/20 05/02/23 Ino Robbins MD [address] [place] [address] Assigned OBGYN Provider 01/01/23 documented as of this encounter
--- OUTSIDE RECORDS SUMMARY | 2024-03-13 16:04 | XMS_ITS | Referral Summary ---
Author Organization [place] Address [address] [facility] [address] Care Team Providers Care Mold Repairer Name Role Phone Abbey Bagley PA-C Primary Care Provider Ino Ken MD Unavailable Allergies No known active allergies Medications Medication Sig Dispensed Refills Start Date End Date Status albuterol (PROAIR HFA/PROVENTIL HFA/VENTOLIN HFA) 108 (90 Base) MCG/ACT inhaler Inhale 1 puff into the lungs 11/26/2019 Active sertraline (ZOLOFT) 50 MG tabletIndications:Cur [...] moderate pain Take w/ food 30 tablet 05/04/2023 Active Active Problems Problem Noted Date [...] IUD inserted : Due for removal 05/2026 04/200 5 05/04/2023 Immunizations Name Administration Dates Next Due COVID-19 MONOVALENT 12+ (Pfizer) 09/30/2021,05/10 DTAP (<7y) 05/23/2007,08/27/2004,2002 DTaP/HepB/IPV 07/16/2004 Flu, Unspecified 10/21/2021,08/27/2004 HEPATITIS A (PEDS 12M-18Y) 02/19/2014,05/23/2007 HIB (PRP-T) 07/16/2004,2002 HIB(PRP-OMP)(PedvaxHIB) 07/16/2004 HIB, Unspecified 2002 HPV9 10/21/2021,07/01/2020 Hep B, Adult (Heplisav- B) 07/08/2022 Hepatitis B, Peds 2002,2002 Influenza (IIV3) PF 07/01/2020,08/20/2008,2003 Influenza Intranasal Vaccine [...] Answer Date Recorded PHQ-2 Score 0 04/14/2023 [place] Depression Scale Answer Date Recorded Last EPDS [...] Procedure Name Priority Date/Time Associated Diagnosis Comments HIV ANTIGEN ANTIBODY COMBO Routine 11/26/2022 2:16 PM WORD PROCESSOR Encounter for supervision of other normal in second trimester HEPATITIS C ANTIBODY Routine 11/26/2022 2:16 PM WORD PROCESSOR Encounter for supervision of other normal in second trimester CHLAMYDIA TRACHOMATIS PCR Routine 11/26/2022 1:42 PM WORD PROCESSOR Screen for STD (sexually transmitted disease) from Last 3 Months or Most Recently Relevant to Health Maintenance Results * HIV Antigen Antibody Combo (11/26/2022 2:16 PM WORD PROCESSOR) HIV Antigen Antibody Combo Nonreactive Nonreactive 11/27/2022 2:46 PM WORD PROCESSOR [facility] DO Comment:HIV-1 p24 Ag & HIV-1 /HIV-2 Ab Not Detected Blood BLOOD SPECIMEN / Unknown Venipuncture / Unknown 11/26/2022 2:16 PM WORD PROCESSOR 11/26/2022 2:28 PM WORD PROCESSOR Kelley Diane DO LAB - BLOOD ORDER BROOKE [facility]/PROT/ENDO [facility]/Prot/Endo [address] [facility], [address] [phone] * Hepatitis C antibody (11/26/2022 2:16 PM WORD PROCESSOR) Pathologist [facility] Hepatitis C Antibody Nonreactive Nonreactive 11/27/2022 2:46 PM WORD PROCESSOR SPECIALTY CORE/PROT/EN DO Blood BLOOD SPECIMEN / Unknown Venipuncture / Unknown 11/26/2022 2:16 PM WORD PROCESSOR 11/26/2022 2:28 PM WORD PROCESSOR Narrative SPECIALTY CORE/PROT/ENDO - 11/27/2022 2:46 PM WORD PROCESSOR Assay performance characteristics have not been established for newborns, infants, and children. Kelley Diane DO LAB - BLOOD ORDER BROOKE SPECIALTY CORE/PROT/ENDO Specialty Core/Prot/Endo [address] [facility], [address] [place] [address], [facility] [phone] * CHLAMYDIA TRACHOMATIS PCR (11/26/2022 1:42 PM WORD PROCESSOR) Pathologist [facility] Chlamydia trachomatis Negative Negative 11/27/2022 12:55 PM WORD PROCESSOR [facility] Comment:A negative result by fabrication and layout craftsman mediated amplification does not preclude the presence of C. trachomatis infection because results are dependent on proper and adequate collection, absence of inhibitors and sufficient rRNA to be detected. Swab CERVIX UTERI STRUCTURE / Unknown Non-blood Collection / Unknown 11/26/2022 1:42 PM WORD PROCESSOR 11/26/2022 3:02 PM WORD PROCESSOR Kelley Diane DO LAB - MICRO GENER AL ORDERABLES [facility] Inf. Diseases Diag. Lab [address] [facility], [address] [place] [address], [facility] [phone] from Last 3 Months or Most Recently Relevant to Health Maintenance Advance Directives For more information, please contact: [phone] * Full Code (Latest Code Status on File) Date Activated Date Inactivated Comments 05/02/2023 8:49 AM 05/03/2023 5:05 AM All basic an d advanced life-sustaining interventions are performed as appropriate Question Answer Comments Code status determined by: Discussion with patie nt/ legal decision maker * Full Code Date Activated Date Inactivated Comments 03/10/2021 4:09 PM 03/10/2021 10:45 PM All basic and advanced life-sustaining interventions are performed as appropriate Question Answer Comments Code status determined by: Discussion with aisha nt/ legal decision maker Care Teams Mold Repairer Relationship Specialty Start Date End Date Abbey Bagley PA-C PCP - General Physician Tax Accounting Assistant 08/15/20 Ino Robbins MD [address] [place] [address] Assigned OBGYN Provider 01/01/23
--- OUTSIDE RECORDS SUMMARY | 2024-03-13 16:04 | XMS_ITS | Encounter Summary ---
Author Organization [place] Address [facility] [place] [address] Care Team Providers Care Licensed Occupational Therapy Assistant Name Role Phone Abbey Bagley PA-C Unavailable Unavailable Abbey Bagley PA-C Primary Care Provider Kelley Ko DO Unavailable Ino Robbins MD Unavailable Encounter Details Date Type Department Care Team (Late st Contact Info) Description 11/22/2022 [facility] [address] [place] [address] Di Sher RN Social History Tobacco Use Types Packs/Day Years Used Date Smoking Tobacco: Every Day Cigarettes Smokeless Tobacco: Never Alcohol Use Standard Drinks/Week Comments Not Currently 0 (1 standard drink = 0.6 oz pur e alcohol) Seldom PHQ-2 Answer Date Recorded PHQ-2 Score 2 11/26/2022 [place] Depression Scale Answer Date Recorded [place] Depression Score 13 03/10/2021 Last EPDS [...] Coronavirus/COVID-19? No / Unsure 11/17/2022 6:32 PM MINE MOTOR OPERATOR documented as of this encounter Plan of Treatment Not on file documented as of this encounter Visit Diagnoses Not on filedocumented in this encounter Additional Health Concerns Assessment Noted Time PHQ-9 Depression Total Score: 19 021 3:52 PM CDT documented as of this encounter Care Teams Licensed Occupational Therapy Assistant Relationship Specialty Start Date End Date Abbey Bagley PA-C PCP - General Physician Draftsperson 08/15/20 Abbey Bagley PA-C Physician Draftsperson 04/11/20 05/02/23 Kelley Diane DO [address] [address] Assigned OBGYN Provider 12/04/22 Ino Robbins MD [address] [place] [address] Assigned OBGYN Provider 01/01/23 documented as of this encounter
--- OUTSIDE RECORDS SUMMARY | 2024-03-13 16:04 | XMS_ITS | Encounter Summary ---
Author Organization [place] Address [address] [facility] [place] [address] Care Team Providers Care Cloth Carrier Name Role Phone Abbey Bagley PA-C Unavailable Unavailable Abbey Bagley PA-C Primary Care Provider Kelley Ko DO Unavailable [phone] Ino Robbins MD Unavailable Encounter Details Date Type Department Care Team (Late st Contact Info) Description 12/07/2022 [facility] Medical Advice [facility] Women[facility] Clinic [address] [place] [phone] Diana Rainey, RN Social History Tobacco Use Types Packs/Day Years Used Date Smoking Tobacco: Some Days Cigarettes Smokeless Tobacco: Never Alcohol Use Standard Drinks/Week Comments Not Currently 0 (1 standard drink = 0.6 oz pur e alcohol) Seldom PHQ-2 Answer Date Recorded PHQ-2 Score 2 11/26/2022 [place] Depression Scale Answer Date Recorded [place] Depression Score 13 03/10/2021 Last EPDS Self [...] Coronavirus/COVID-19? No / Unsure 11/26/2022 1:26 PM GENERATING STATION MECHANIC documented as of this encounter Plan of Treatment Not on file documented as of this encounter Visit Diagnoses Not on filedocumented in this encounter Additional Health Concerns Assessment Noted Time PHQ-9 Depression Total Score: 19 021 3:52 PM CDT documented as of this encounter Care Teams Cloth Carrier Relationship Specialty Start Date End Date Abbey Bagley PA-C PCP - General Physician Sterilization Tech 08/15/20 Abbey Bagley PA-C Physician Sterilization Tech 04/11/20 05/02/23 Kelley Diane DO [address] [address] Assigned OBGYN Provider 12/04/22 Ino Robbins MD [address] [place] [address] Assigned OBGYN Provider 01/01/23 documented as of this encounter
--- OUTSIDE RECORDS SUMMARY | 2024-03-13 16:04 | XMS_ITS | Encounter Summary ---
Author Organization [place] Address [address] [place] [address] Care Team Providers Care Medical Director Of Hospice Name Role Phone Abbey Bagley PA-C Unavailable Unavailable Abbey Bagley PA-C Primary Care Provider Unava ilable Ino Robbins MD Unavailable Azul Gilman DO Unavailable [phone] Kelley Diane DO Unavailable [phone] Ino Robbins MD Unavailable Reason for Visit * Reason Onset Date Comments Refill Request 04/02/2021 Encounter Details Date Type Department Care Team (Late st Contact Info) Description 04/02/2021 MyC Refill Initial Department Abbey Bagley PA-C [facility] Refill Request Social History Tobacco Use Types Packs/Day Years Used Date Smoking Tobacco: Every Day Cigarettes Smokeless Tobacco: Never Alcohol Use Standard Drinks/Week Comments Not Currently 0 (1 standard drink = 0.6 oz pur e alcohol) Seldom PHQ-2 Answer Date Recorded PHQ-2 Score 6 02/19/2021 [place] Depression Scale Answer Date Recorded [place] Depression Score 13 03/10/2021 Last EPDS Self [...] as of this encounter Care Teams Medical Director Of Hospice Relationship Specialty Start Date End Date Abbey Bagley PA-C PCP - General Physician Temporary Administrative Assistant 08/15/20 Abbey Bagley PA-C Physician Temporary Administrative Assistant 04/11/20 05/02/23 Ino Robbins MD [address] [place] [address] Assigned OBGYN Provider 03/08/21 Azul Gilman DO [address] [place] [address] Assigned Heart and Vascular Provider 03/08/21 09/10/22 Kelley Diane DO [address] [facility] [address] [place] [address] Assigned OBGYN Provider 12/04/22 Ino Robbins MD [address] [place] [address] Assigned OBGYN Provider 01/01/23 documented as of this encounter
--- OUTSIDE RECORDS SUMMARY | 2024-03-13 16:04 | XMS_ITS | Clinical Summary ---
Author Organization [place] Address [address] [facility] [place] [address] Care Team Providers Care Mill Roll Operator Name Role Phone Abbey Bagley PA-C Primary [...] Answer Date Recorded PHQ-2 Score 0 04/14/2023 [place] Depression Scale Answer Date Recorded Last EPDS [...] CONTROL TEST 2002 DEPRESSION ACTION PLAN 2002 Pneumococcal Vaccine: Pediatrics (0 to 5 Years) and At-Risk Patients (6 to 64 Years) (1 of 2 - PCV) 2008 07/16/2004, 2002 HPV IMMUNIZATION (3 - 3-dose series) 01/13/2022 10/21/2021, 07/01/2020 YEARLY PREVENTIVE VISIT 10/21/2022 10/21/2021, 08/20 PAP 2023 COVID-19 Vaccine ( season) 2023 09/30/2021, 2021 PHQ-9 09/29/2023 03/30/2023, 08/0 02/2021, 02/19/2021 CHLAMYDIA SCREENING 11/26/2023 11/26/2022, 09/21/2022, 12/23/2020, Additional history exists INFLUENZA VACCINE (Season Ended) 2024 10/21/2021, 10/21/2021, 07/01/2020, Additional history exists DTAP/TDAP/TD IMMUNIZATION (8 - Td or Tdap) 03/30/2033 03/30/2023, 01/01/2021, 02/19/2014, Additional history exists IPV IMMUNIZATION Completed 05/23/2007, , 07/16/2004, Additional [...] ANTIGEN ANTIBODY COMBO Routine 11/26/2022 2:16 PM PAINT STOCKMAN Encounter for supervision of other normal in second trimester HEPATITIS C ANTIBODY Routine 11/26/2022 2:16 PM PAINT STOCKMAN Encounter for supervision of other normal in second trimester CHLAMYDIA TRACHOMATIS PCR Routine 11/26/2022 1:42 PM PAINT STOCKMAN Screen for STD (sexually transmitted disease) from Last 3 Months or Most Recently Relevant to Health Maintenance Results * HIV Antigen Antibody Combo (11/26/2022 2:16 PM PAINT STOCKMAN) HIV Antigen Antibody Combo Nonreactive Nonreactive 11/27/2022 2:46 PM PAINT STOCKMAN [facility] DO Comment:HIV-1 p24 Ag & HIV-1 /HIV-2 Ab Not Detected Blood BLOOD SPECIMEN / Unknown Venipuncture / Unknown 11/26/2022 2:16 PM PAINT STOCKMAN 11/26/2022 2:28 PM PAINT STOCKMAN Kelley Diane DO LAB - BLOOD ORDER BROOKE [facility]/PROT/ENDO UM Specialty Core/Prot/Endo [address] [facility] [address], [address] [phone] * Hepatitis C antibody (11/26/2022 2:16 PM PAINT STOCKMAN) Hepatitis C Antibody Nonreactive Nonreactive 11/27/2022 2:46 PM PAINT STOCKMAN [facility]PROT/EN DO Blood BLOOD SPECIMEN / Unknown Venipuncture / Unknown 11/26/2022 2:16 PM PAINT STOCKMAN 11/26/2022 2:28 PM PAINT STOCKMAN Narrative SPECIALTY CORE/PROT/ENDO - 11/27/2022 2:46 PM PAINT STOCKMAN Assay performance characteristics have not been established for newborns, infants, and children. Kelley Diane DO LAB - BLOOD ORDER BROOKE SPECIALTY CORE/PROT/ENDO Specialty Core/Prot/Endo [address] [facility], [address] [place], [place] [address] [phone] * CHLAMYDIA TRACHOMATIS PCR (11/26/2022 1:42 PM PAINT STOCKMAN) Chlamydia trachomatis Negative Negative 11/27/2022 12:55 PM PAINT STOCKMAN [facility] Comment:A negative result by sap architect mediated amplification does not preclude the presence of C. trachomatis infection because results are dependent on proper and adequate collection, absence of inhibitors and sufficient rRNA to be detected. Swab CERVIX UTERI STRUCTURE / Unknown Non-blood Collection / Unknown 11/26/2022 1:42 PM PAINT STOCKMAN 11/26/2022 3:02 PM PAINT STOCKMAN Kelley Diane DO LAB - MICRO GENER AL ORDERABLES [facility] Inf. Diseases Diag. Lab [address] [facility], [address] [place] [address], [facility] [phone] from Last 3 Months or Most Recently Relevant to Health Maintenance Advance Directives For more information, please contact: [phone] * Full Code (Latest Code Status on File) Date Activated Date Inactivated Comments 05/02/2023 8:49 AM 05/03/2023 5:05 AM All basic an d advanced life-sustaining interventions are performed as appropriate Question Answer Comments Code status determined by: Discussion with aisha nt/ legal decision maker * Full Code Date Activated Date Inactivated Comments 03/10/2021 4:09 PM 03/10/2021 10:45 PM All basic and advanced life-sustaining interventions are performed as appropriate Question Answer Comments Code status determined by: Discussion with aisha nt/ legal decision maker Care Teams Mill Roll Operator Relationship Specialty Start Date End Date Abbey Bagley PA-C PCP - General Physician Renewable Energy Broker 08/15/20 Ino Robbins MD [address] [place] [address] Assigned OBGYN Provider 01/01/23
--- OUTSIDE RECORDS SUMMARY | 2024-03-13 16:04 | XMS_ITS | Clinical Summary ---
Author Organization [facility] Address [place], [place] [address] Care Team Providers Care Patient Services Representative Name Role Phone Staff, Other Clinical Primary [...] every 6 hours if needed for Pain. Active ferrous sulfate 325 mg delayed release tablet Take 325 mg by mouth once daily. Active QUEtiapine (SEROQUEL) 25 mg tabletIndications:PT SD (post-traumatic stress disorder),Brief psychotic disorder (HC) Take one-half tablet (12.5 mg) by mouth two times daily. 14 Tablet 05/07/2023 Active QUEtiapine (SEROQUEL) 50 mg tabletIndications:PT SD (post-traumatic stress disorder),Brief psychotic disorder (HC) Take 1 Tablet (50 mg) by mouth at bedtime. Refills per primary care provider / outpatient providers 14 Tablet 05/07/2023 Active NIFEdipine (PROCARDIA XL) 30 mg extended-release tablet Take 1 Tablet (30 mg) by mouth once daily before a meal. 0 05/11/2023 Active OLANzapine (ZyPREXA) 5 mg tablet Take 5 mg by mouth at bedtime. Active Active Problems Problem Noted Date Diagnosed [...] 02/05/2005 06/24/2021 BRANDON (generalized anxiety disorder) 01/24/2020 Encounters Date Type Department Care Team Description 03/01/2024 Lab Requisition [facility] [phone] Comfort Platt, MANAGER OF PLANNING from Last 3 Months Immunizations Name Administration Dates Next Due COVID-19 vaccine ([employer] NTech 30mcg/0.3mL) [place] K[place]ER 2021 DTaP 05/23/2007, 7,08/27/2004,08/27,2002,2002 TMzM-NioM-HFL (Pediarix) 07/16/2004,07/16/2004 HIB PRP-OMP (PedvaxHIB) 07/16/2004 HIB [...] Used Date Smoking Tobacco: Former Cigarettes 0.3 5.4 S tarted: 2018 Smokeless Tobacco: Former Tobacco Cessation:Counseling Given: Not [...] Austin Ledezma MD Complications: Intolera nce Delivery Location:[facility] ( LABOR AND DELIVERY) 05/03 [...] Health Maintenance Due Date Last Done Comments HPV series for age 9-26 (3 - 3-dose series) 01/13/2022 10/21/2021, 07/01/2020 COVID-19 vaccine series (2022- season) 2023 09/30/2021, 2021 Chlamydia for age 16-24 09/21/2023 09/21/20, 09/11/2020, 07/01/2020, Additional history exists Depression screening for age 12+ 09/24/2023 09/24/2022, 09/22/2022, 09/22/2022, Additional history exists BMI (ht and wt on same day) for age 18+ 05/11/2024 05/11/2023, 09/21/2022, 06/01/2021, Additional history exists Influenza for age 9-49 06/10/2024 , 10/21/2021, 07/01/2020, Additional history exists Pap test for age 21-65 07/01/2026 07/01/2023 Tetanus booster 01/01/2031 01/01/2021, 02/19/2014 Pneumococcal series for age 6-64 Aged Out 07/16/2004, 07/16/2004, 07/16/2004, Additional history exists No longer eligible based on patient's age to complete this topic Meningococcal series for age 11-21 Completed 11/27/2019, 02/19/2014, 02/19/2014 HIV for age 15-65 Completed 09/11/2020, , 07/05/2016 Hepatitis C screening for age 18-79 Completed 09/11/2020, 07/05/2016 Tdap Completed 01/01/2021, 02/19/2014 Goals Goal Patient Goal Type Associated Problems Recent Progress Patient-Stated? Author Transportation - Increase reliability General Yes Praful Orozco, LABORATORY ANALYST, PRINT [employer] STENOGRAPHER Note: Goal identified during: Initial Screening Status: [...] follow-up in two weeks to review her [facility] goals and get a status update on the outcome of her communication with resources in the community. Proposed timeline for goal completion: Ongoing until resolved. Notes: None. Date of follow up: 08/04/20 Procedures Procedure Name Priority Date/Time Associated Diagnosis Comments QFT MITOGEN PERFORMABLE Routine 02/29/2024 4:15 PM CDT QFT TB2 PERFORMABLE Routine 02/29/2024 4 :15 PM CDT QFT TB1 PERFORMABLE Routine 02/29/2024 4 :15 PM CDT QUANTIFERON TB GOLD PLUS Routine 02/29/2024 4:15 PM CDT QUANTIFERON TB GOLD PLUS Routine 02/29/2024 4:15 PM CDT ENVIRONMENTAL ENGINEERING INTERN THIN PREP PAP SCREEN IMAGED Routine 07/01/2023 3:00 PM CDT GC CHLAMYDIA TRACH PROBE Routine 09/21/2022 1:00 PM PUBLIC RELATIONS Cramping affecting , antepartum ANTI HIV 1/2 Routine 09/11/2020 8:23 AM PUBLIC RELATIONS Encounter for supervision of normal first in first trimester ANTI HCV Routine 09/11/2020 8:23 AM PUBLIC RELATIONS Encounter for supervision of normal first in first trimester from Last 3 Months or Most Recently Relevant to Health Maintenance Results * QFT MITOGEN PERFORMABLE (02/29/2024 4:15 PM CDT) MITOGEN 10.00 IU/mL 03/02/2024 12:58 PM CDT [facility] Blood BLOOD SPECIMEN / Unknown Client Collect / Unknown 02/29/2024 4:15 PM CDT 03/01/2024 9:47 PM CDT Comfort Platt NP CHEMISTRY Performing Organization Address City/[facility] Co de Phone Number [facility] [address] [place] [address], [place] * QFT TB2 PERFORMABLE (02/29/2024 4:15 PM CDT) TB2 0.02 IU/mL 03/02/2024 11:32 AM CDT [facility] Blood BLOOD SPECIMEN / Unknown Client Collect / Unknown 02/29/2024 4:15 PM CDT 03/01/2024 9:47 PM CDT Comfort Platt NP CHEMISTRY Performing Organization Address [facility] Co de Phone Number [facility] [address] [place] [address], [place] * QFT TB1 PERFORMABLE (02/29/2024 4:15 PM CDT) TB1 0.00 IU/mL 03/02/2024 11:33 AM CDT [facility] Blood BLOOD SPECIMEN / Unknown Client Collect / Unknown 02/29/2024 4:15 PM CDT 03/01/2024 9:47 PM CDT Comfort Platt NP CHEMISTRY Performing Organization Address [facility] Co de Phone Number [facility] [address] [place] [address], [place] * QUANTIFERON TB GOLD PLUS (02/29/2024 4:15 PM CDT) QFTP NIL 0.00 03/02/2024 2:53 PM CDT [facility] TB1 0.00 IU/mL 03/02/2024 2:53 PM CDT [facility] TB2 0.02 IU/mL 03/02/2024 2:53 PM CDT [facility] MITOGEN 10.00 IU/mL 03/02/2024 2:53 PM CDT [facility] QFTP TB AG1 - NIL 0.00 024 2:53 PM CDT [facility] TB1-NIL % OF NIL 03/02/20 2:53 PM CDT [facility] Comment:Unable to calculate QFTP TB AG2 - NIL 0.02 024 2:53 PM CDT [facility] TB2-NIL % OF NIL 03/02/20 2:53 PM CDT [facility] Comment:Unable to calculate QFTP MITOGEN - NIL 10.00 2023 2:53 PM CDT [facility] QFTP QUANTIFERON INTERPRETATION Negative Negative 03/02/2024 2:53 PM CDT [facility] Blood BLOOD SPECIMEN / Unknown Client Collect / Unknown 02/29/2024 4:15 PM CDT 03/01/2024 9:47 PM CDT [facility] - 03/02/2024 2:53 PM CDT M. tuberculosis infection not likely, but cannot be excluded in cases of immunosuppression. CAUTION: The performance of QuantiFERON-TB Gold Plus has not been evaluated in specimens from: - Individuals with impaired or altered immune factors (HIV infections, transplant patients, those receieving immunosuppressive drugs such as corticosteroids) and those with other clinical conditions (e.g., diabetes, hematological disorders). - Individuals younger than 17 years old. ??Refer to CDC website for testing recommendations in children 6-17 years old. - women Comfort Platt NP CHEMISTRY [facility] [address] [place] [address], * ENVIRONMENTAL ENGINEERING INTERN THIN PREP PAP SCREEN IMAGED (07/01/2023 3:00 PM CDT) Case Report Gynecologic Cytology Report ? Case: [id number] ? Authorizing Provider: ??Denise Fry, MANAGER OF PLANNING ?? Collected: ? 07/01/2023 1500 ? Ordering Location: ? [facility] ?Received: ?07/05/2023 1303 ? First Screen: ?Ino Enriquez ? Specimen: ?ENVIRONMENTAL ENGINEERING INTERN ThinPrep Vial Screening, Cervical ? 07/12/2023 9:32 AM CDT [facility] ENTRAL LABORATORY INTERPRETATION/ RESULT NEGATIVE FOR INTRAEPITHELIAL LESION OR MALIGNANCY (NIL) (none) 07/12/2023 9:32 AM CDT [facility] IMEN ADEQUACY Satisfactory for evaluation Endocervical component present Scant cellularity 07/12/2023 9:32 AM CDT [facility] HPV REQUEST HPV not requested 10/03/ 2023 9:32 AM CDT [facility] Date of LMP 06/15/2023 07/12/2023 9:32 AM CDT [facility] Last Pap Result First Pap/Unknown 9:32 AM CDT [facility] Abnormal Pap or Citronelle Bx in last 5 years No 07/12/2023 9:32 AM CDT [facility] Menstrual Status Regular Periods 07/12/2023 9:32 AM CDT [facility] Citronelle Bx Done Today No 07/12/2023 9:32 AM CDT [facility] Additional Information 07/12/2023 9:32 AM CDT [facility] Comment: Interpreted at [facility] - [address] [place] [id number] Automated Review Successful 07/12/2023 9:32 AM CDT [facility] Comment:Specimen processed s uccessfully by automated motorized squad lieutenant device, ThinPrep Imaging System, [facility] Note The pap test is a screening technique, not a diagnostic procedure. It is used primarily to screen for squamous cancers and precursor lesions. Published studies have shown that it is subject to both false negative and false positive results. The pap test should not be used as the sole means to diagnose or exclude pre-malignant and malignant lesions. 07/12/2023 9:32 AM CDT [facility] Other (Cervical) 07/01/2023 3:00 PM CDT 07/05/2023 1:03 PM CDT Denise Fry NP PATHOLOGY/CYTOLOG Y [facility] [address] [place] [address], * GC CHLAMYDIA TRACH PROBE (09/21/2022 1:00 PM PUBLIC RELATIONS) CHLAMYDIA PROBE Negative 5:24 PM PUBLIC RELATIONS [facility] N GONORRHOEAE PROBE Negative 09/22/2022 5:24 PM PUBLIC RELATIONS [facility] Other VAGINAL SWAB / Unknown Non-Blood / Unknown 09/21/2022 1:00 PM PUBLIC RELATIONS 09/21/2022 1:49 PM PUBLIC RELATIONS Deborah Senior NP MICROBIOLOGY Performing Organization Address City/[facility]/ZIP Co de Phone Number [facility] [address] [place] [address], [place] * ANTI HCV (09/11/2020 8:23 AM PUBLIC RELATIONS) HEPATITIS C ANTIBODY Non-React kamran Non-React kamran 09/11/2020 12:51 PM PUBLIC RELATIONS [facility] Comment:Antibodies to HCV no t detected; does not exclude the possibility of exposure to HCV. Blood BLOOD SPECIMEN / Unknown Butterfly / Unknown 09/11/2020 8:23 AM PUBLIC RELATIONS 09/11/2020 8:24 AM PUBLIC RELATIONS Kira Turner DO SEND OUTS Performing Organization Address [facility] Co de Phone Number [facility] [address] [place] [address], [place] * ANTI HIV 1/2 (09/11/2020 8:23 AM PUBLIC RELATIONS) Pathologist [facility] HIV-1/HIV-2 ANTIBODY Non-Reacti ve Non-Reacti ve 09/11/2020 12:38 PM PUBLIC RELATIONS [facility] Comment:HIV-1 p24 and HIV-1/ HIV-2 Ab not detected. Blood BLOOD SPECIMEN / Unknown Butterfly / Unknown 09/11/2020 8:23 AM PUBLIC RELATIONS 09/11/2020 8:24 AM PUBLIC RELATIONS Kira Turner DO SEND OUTS [facility] [address] [place] [address], [place] from Last 3 Months or Most Recently Relevant to Health Maintenance Advance Directives * Full Code (Latest Code Status on File) Date Activated Date Inactivated Comments 05/06/2023 8:15 AM 05/07/2023 4:11 PM Question Answer Comments Code Status Discussion: Reviewed Preferences * Full Code Date Activated Date Inactivated Comments 05/05/2023 11:14 AM 05/06/2023 8:15 AM Question Answer Comments Code Status Discussion: Unable to Assess Preferences, Provider to review later * Full Code Date Activated Date Inactivated Comments 08/09/2016 3:46 PM 08/18/2016 1:40 PM Care Teams Patient Services Representative Relationship Specialty Start Date End Date Staff, Other Clinical . PCP - General 06/05/23
--- OUTSIDE RECORDS SUMMARY | 2024-03-13 16:04 | XMS_ITS | Encounter Summary ---
Author Organization [place] Address [address] [facility] [place] [address] Care Team Providers Care Gas Generator Operator Name Role Phone Abbey Bagley PA-C Unavailable Unavailable Abbey Bagley PA-C Primary Care Provider Unava ilable Ino Robbins MD Unavailable Azul Gilman DO Unavailable [phone] Kelley Diane DO Unavailable Ino Robbins MD Unavailable [phone] Encounter Details Date Type Department Care Team (Late st Contact Info) Description 04/07/2021 MyC Medical Advice [facility] [address] [place] [phone] Ino Robbins MD [address] [place] [address] Social History Tobacco Use Types Packs/Day Years Used Date Smoking Tobacco: Every Day Cigarettes Smokeless Tobacco: Never Alcohol Use Standard Drinks/Week Comments Not Currently 0 (1 standard drink = 0.6 oz pur e alcohol) Seldom PHQ-2 Answer Date Recorded PHQ-2 Score 6 02/19/2021 [place] Depression Scale Answer Date Recorded [place] Depression Score 13 03/10/2021 Last EPDS Self [...] Noted Time PHQ-9 Depression Total Score: 021 2:42 PM CDT documented as of this encounter Care Teams Gas Generator Operator Relationship Specialty Start Date End Date Abbey Bagley PA-C PCP - General Physician Personal Vehicle Advisor 08/15/20 Abbey Bagley PA-C Physician Personal Vehicle Advisor 04/11/20 05/02/23 Ino Robbins MD [address] [place] [address] Assigned OBGYN Provider 03/08/21 Azul Gilman DO [address] [place] [address] Assigned Heart and Vascular Provider 03/08/21 09/10/22 Kelley Diane DO [address] [place] [address] Assigned OBGYN Provider 12/04/22 Ino Robbins MD [address] [place] [address] Assigned OBGYN Provider 01/01/23 documented as of this encounter
--- OUTSIDE RECORDS SUMMARY | 2024-03-13 16:04 | XMS_ITS | Encounter Summary ---
Author Organization [place] Address [facility] [place] [address] Care Team Providers Care Laminator Name Role Phone Abbey Bagley PA-C Unavailable Unavailable Abbey Bagley PA-C Primary Care Provider Kelley Ko DO Unavailable Ino Robbins MD Unavailable [phone] Encounter Details Date Type Department Care Team (Late st Contact Info) Description 11/23/2022 [facility] Advice [address] [place] [address] Di Sher RN Social History Tobacco Use Types Packs/Day Years Used Date Smoking Tobacco: Some Days Cigarettes Smokeless Tobacco: Never Alcohol Use Standard Drinks/Week Comments Not Currently 0 (1 standard drink = 0.6 oz pur e alcohol) Seldom PHQ-2 Answer Date Recorded PHQ-2 Score 2 11/26/2022 [place] Depression Scale Answer Date Recorded [place] Depression Score 13 03/10/2021 Last EPDS Self [...] Coronavirus/COVID-19? No / Unsure 11/26/2022 1:26 PM PSYCHOLOGY TEACHER documented as of this encounter Plan of Treatment Not on file documented as of this encounter Visit Diagnoses Not on filedocumented in this encounter Additional Health Concerns Assessment Noted Time PHQ-9 Depression Total Score: 19 021 3:52 PM CDT documented as of this encounter Care Teams Laminator Relationship Specialty Start Date End Date Abbey Bagley PA-C PCP - General Physician Galley Hand 08/15/20 Abbey Bagley PA-C Physician Galley Hand 04/11/20 05/02/23 Kelley Diane DO [address] [address] Assigned OBGYN Provider 12/04/22 Ino Robbins MD [address] [place] [address] Assigned OBGYN Provider 01/01/23 documented as of this encounter
[2024-03-13 19:48] LABS: Chlamydia DNA Amplified* NOT DETECTED (No Detected); GC DNA Amplified* NOT DETECTED (No Detected)
== END 2024-03-13 16:01 | disposition home or self-care (01) ==
LOC: NFLDREF 16:00
PROVIDERS: PCP Nurse Practitioner Family; Visit Provider Registered Nurse
DX: Z11.3 Encounter for screening for infections with a predominantly sexual mode of transmission (principal)
CPT/HCPCS: 87491; 87591

== ENCOUNTER 2024-03-14 11:05 | Outpatient (CLI) | payer MEDICAID, SELFPAY ==
--- OUTSIDE RECORDS SUMMARY | 2024-03-14 11:07 | XMS_ITS | Encounter Summary ---
Author Organization [facility] Address [address] [place] [address] Phone Care Team Providers Care Meat Products Demonstrator Name Role Phone Unavailable Primary Care Provider Unavailabl e Reason for Referral * Consult/Test/Treat (Routine) - New Request Specialty Diagnoses / Procedures Referred By Bernardo belle Referred To Contact SLEEP NEUROLOGY Diagnoses Insomnia, unspecified type Trip Nieto MD [address] [place] [address] Tonny Gold PsyD, DIETER [address] [place] [address] Referral ID Status Reason Start Date Expiration Date V isits Requested Visits Authorized [id number] New Request 01/03/2024 01/02/2025 1 1 Scheduling [...] SLEEP NEUROLOGY Diagnoses Difficulty sleeping Alfred Lambert, BOILING OFF WINDER, UNDERGROUND MINE SUPERINTENDENT [address] [place] [address] Referral ID Status Reason Start Date Expiration Date Visits Re quested Visits Authorized [id number] Closed 11/10/2023 11/09/2024 1 1 Encounter Details Date Type Department Care Team (Late st Contact Info) Description 01/03/2024 3:00 PM CDT Telemedicine [facility] Sleep [facility] [address] [place] [address] [id number] [place] [address] Trip Nieto MD [address] [place] [address] Insomnia, unspecified type (Primary Dx) Discharge Disposition: [...] Nieto MD - 01/03/2024 3:00 PM CDT [facility] Sleep Center Merry Rooney : 2000 Sex: [...] complex behavior. 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 She is awake and alert [...] She sees mental health providers outside of [place]. Current medications include ferrous sulfate, valacyclovir, vitamin [...] Total Score: 7 08/22/20 23 11:05 AM DINKEY BRAKEMAN PHQ-2 Depression Total Score: 2 08/22/20 23 11:05 AM DINKEY BRAKEMAN documented as of this encounter
--- OUTSIDE RECORDS SUMMARY | 2024-03-14 11:07 | XMS_ITS | Encounter Summary ---
Author Organization [facility] Address [address] [place] [address] Phone Care Team Providers Care Motor Electrician Name Role Phone Alfred Lambert APRN, CNP Primary Care Provider [phone] Encounter Details Date Type Department Care Team [...] Total Score: 7 08/22/20 23 11:05 AM ATMOSPHERIC PHYSICS PROFESSOR PHQ-2 Depression Total Score: 2 08/22/20 23 11:05 AM ATMOSPHERIC PHYSICS PROFESSOR documented as of this encounter Care Teams Motor Electrician Relationship Specialty Start Date End Date Alfred Lambert APRN, CNP [address] [place] [address] PCP - General Internal Medicine 01/17/24 documented as of this encounter
--- OUTSIDE RECORDS SUMMARY | 2024-03-14 11:07 | XMS_ITS | Clinical Summary ---
Author Organization [facility] Address [address] [place] [address] Phone Care Team Providers Care Radiology Rn Name Role Phone Alfred Lambert APRN, CNP Primary Care Provider Source Comments [employer] is fully rolled out on [employer]. 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 Encounter for screening 02/05/2005 06/08/20 Overview: LW Onset: [id number] ; Child and Teen Check Up Needs Resolved Problems Problem Noted Date Diagnosed Date Resolved Date Acute encephalopathy 05/07/2023 06/08/2023 023 Encounters Date Type Department Care Team Description 02/17/2024 11:30 AM CDT Erroneous Encounter [facility] [address] [place] [address] Ray Cutler PA-C ERRONEOUS ENCOUNTER-DISREGARD (Primary Dx) 01/24/2024 3:00 PM CDT [facility] [address] [address] Justina Bowser APRN, MAIL AGENT POTS (postural orthostatic tachycardia syndrome) (Primary Dx) Discharge Disposition: Discharged to home or self care (routine discharge) 01/17/2024 12:05 PM CDT - 01/17/2024 11:59 PM CDT Hospital Encounter [facility] Echo Lab [address] [place] [address] Cj Urias MD Discharge Disposition: Discharged to home or self care (routine discharge) 01/17/2024 Travel 01/03/2024 3:00 PM CDT Telemedicine [facility] Sleep Center [address] [place] [address] Trip Nieto MD Insomnia, unspecified type (Primary Dx) Discharge Disposition: Discharged to home or self care (routine discharge) 12/13/2023 9:50 AM SOUND EDITOR - 12/13/2023 11:59 PM SOUND EDITOR Hospital Encounter [facility] [address] [address] Cj rUias MD Discharge Disposition: Discharged to home or [...] Comments Blood Pressure 116/79 11/24/2023 1:18 PM SOUND EDITOR Pulse 104 11/24/2023 1:18 PM SOUND EDITOR Temperature 36.4 ??C (97.5 ??F) 06/14/2023 9:28 AM CD T Respiratory Rate 18 06/14/2023 9:28 AM CDT Oxygen Saturation 99% 06/14/2023 9:28 AM CDT Inhaled Oxygen Concentration - - Weight 89.4 kg (197 lb) 11/24/2023 1:18 PM SOUND EDITOR Height 170.8 cm (5' 7.24) 06/08/2023 8:18 [...] tachycardia syndrome) AUTONOMIC Routine 12/13/2023 9:50 AM SOUND EDITOR POTS (postural orthostatic tachycardia syndrome) PAP TEST Routine 07/01/2023 3:00 PM CDT HIV COMBO Routine 11/26/2022 2:16 PM SOUND EDITOR URINE CHLAMYDIA AND NEISSERIAE GONORRHOEAE AMPLIFICATION Routine 11/26/2022 1:42 PM SOUND EDITOR from Last 3 Months or Most Recently [...] HEARTLAB 01/17/2024 12:0 5 PM CDT Narrative [facility] HEARTLAB - 01/17/2024 12:00 AM CDT Report Status:Finalized Transthoracic Echocardiography Report (TTE) Demographics Patient Name ? MARCIE ? Height ? 67.24 Inches MERRY D Patient Number ?? [id number] ?Weight ? 197 Pounds Date of ?2000 ? BSA ?2.01 m^2 Age ?23 ? Tape Number Gender ? Female ? Study Date ? 01/17/2024 12:20 PM Utility Supervisor [employer] ?PC ? Ordering Provider ??FAWNEGFeng PULLIAMCJ A Referring ?SIMEGN CJ ??Interpreting ? Iain Tyler MD Physician ?A ?Physician ?[id number] Type of Study: TTE procedure: 2D echocardiogram, [...] True True True True True Procedure Note Novice, Iain R, MD - 01/17/2024 Report Status:Finalized Transthoracic Echocardiography Report (TTE) Demographics Patient Name MARCIE Height 67.24 Inches MERRY Quarles Patient Number [id number] Weight 197 Pounds Date of 2000 BSA 2.01 m^2 Age 23 Tape Number Gender Female Study Date 01/17/2024 12:20 PM Utility Super[employer] PC Ordering Provider NINI Madrigal Referring NINI CORONA Interpreting Iain Tyler MD Physician A Physician [id number] Type of Study: TTE procedure: 2D echocardiogram, [...] True True Cj Urias MD RAD ECHO [facility] HEARTLAB from Last 3 Months or Most Recently Relevant to Health Maintenance Advance Directives For more information, please contact: [phone] * Full Code (Latest Code Status on File) Date Activated Date Inactivated Comments 06/08/2023 10:12 PM 06/15/2023 1:52 PM Question Answer Comments Does the Patient have prefer ences regarding life sustaining measures (these options only apply when the patient has a pulse): No Discussed Code Status With Whom? Not discussed Care Teams Radiology Rn Relationship Specialty Start Date End Date Alfred Lambert, RECEIVING AND PROCESSING SUPERVISOR, MAIL AGENT [address] [place] [address] PCP - General Internal Medicine 01/17/24
--- OUTSIDE RECORDS SUMMARY | 2024-03-14 11:07 | XMS_ITS | Encounter Summary ---
Author Organization [facility] Address [address] [place] [address] Phone Care Team Providers Care Marine Pipefitter Name Role Phone Alfred Lambert APRN, CNP Primary Care Provider [phone] Reason for Visit * Reason Onset Date Comments Erroneous encounter-disregard 02/27/2024 Encounter Details Date Type Department Care Team (Latest Contact Info) Description 02/17/2024 11:30 AM CDT Erroneous Encounter [facility] [address] [place] [address] [id number] Ray Cutler PA-C [address] [place], [place] [address] ERRONEOUS ENCOUNTER-DISREGARD (Primary Dx) Social History Tobacco [...] Depression Total Score: 7 08/22/20 11:05 AM CARPENTERS SUPERVISOR PHQ-2 Depression Total Score: 2 08/22/20 11:05 AM CARPENTERS SUPERVISOR documented as of this encounter Care Teams Marine Pipefitter Relationship Specialty Start Date End Date Alfred Lambert APRN, DINNER COOK [address] [place] [address] PCP - General Internal Medicine 01/17/24 documented as of this encounter
--- OUTSIDE RECORDS SUMMARY | 2024-03-14 11:07 | XMS_ITS | Clinical Summary ---
Author Organization [place] Address [address] [facility] [place] [address] Care Team Providers Care Garment Manufacturer Name Role Phone Abbey Bagley PA-C Primary Care Provider Ino Ken MD Unavailable [phone] Allergies No known active allergies Medications Medication [...] Answer Date Recorded PHQ-2 Score 0 04/14/2023 [place] Depression Scale Answer Date Recorded Last EPDS [...] ANTIGEN ANTIBODY COMBO Routine 11/26/2022 2:16 PM SIZING SPRAYER Encounter for supervision of other normal in second trimester HEPATITIS C ANTIBODY Routine 11/26/2022 2:16 PM SIZING SPRAYER Encounter for supervision of other normal in second trimester CHLAMYDIA TRACHOMATIS PCR Routine 11/26/2022 1:42 PM SIZING SPRAYER Screen for STD (sexually transmitted disease) from Last 3 Months or Most Recently Relevant to Health Maintenance Results * HIV Antigen Antibody Combo (11/26/2022 2:16 PM SIZING SPRAYER) HIV Antigen Antibody Combo Nonreactive Nonreactive 11/27/2022 2:46 PM SIZING SPRAYER [facility] DO Comment:HIV-1 p24 Ag & HIV-1 /HIV-2 Ab Not Detected Blood BLOOD SPECIMEN / Unknown Venipuncture / Unknown 11/26/2022 2:16 PM SIZING SPRAYER 11/26/2022 2:28 PM SIZING SPRAYER Kelley Diane DO LAB - BLOOD ORDER [place] [facility]/PROT/ENDO [facility]/Prot/Endo [address] [facility] [address] Building, Room [address] [phone] * Hepatitis C antibody (11/26/2022 2:16 PM SIZING SPRAYER) Hepatitis C Antibody Nonreactive Nonreactive 11/27/2022 2:46 PM SIZING SPRAYER [facility] C[facility]/PROT/EN DO Blood BLOOD SPECIMEN / Unknown Venipuncture / Unknown 11/26/2022 2:16 PM SIZING SPRAYER 11/26/2022 2:28 PM SIZING SPRAYER Narrative SPECIALTY CORE/PROT/ENDO - 11/27/2022 2:46 PM SIZING SPRAYER Assay performance characteristics have not been established for newborns, infants, and children. Kelley Diane DO LAB - BLOOD ORDER [place]OO[place] SPECIALTY CORE/PROT/ENDO Specialty Core/Prot/Endo [address] [facility], [address] [place], [place] [address] [phone] * CHLAMYDIA TRACHOMATIS PCR (11/26/2022 1:42 PM SIZING SPRAYER) Chlamydia trachomatis Negative Negative 11/27/2022 12:55 PM SIZING SPRAYER [facility] Comment:A negative result by windows application developer mediated amplification does not preclude the presence of C. trachomatis infection because results are dependent on proper and adequate collection, absence of inhibitors and sufficient rRNA to be detected. Swab CERVIX UTERI STRUCTURE / Unknown Non-blood Collection / Unknown 11/26/2022 1:42 PM SIZING SPRAYER 11/26/2022 3:02 PM SIZING SPRAYER Kelley Diane DO LAB - MICRO GENER AL ORDERABLES [facility] Inf. Diseases Diag. Lab [address] [facility], [address] [place] [address], [facility] [phone] from Last 3 Months or Most Recently Relevant to Health Maintenance Advance Directives For more information, please contact: [phone] * Full Code (Latest Code Status on [...] aisha nt/ legal decision maker Care Teams Garment Manufacturer Relationship Specialty Start Date End Date Abbey Bagley PA-C PCP - General Physician Pond Supervisor 08/15/20 Ino Robbins MD [address] [place] [address] Assigned OBGYN Provider 01/01/23
--- OUTSIDE RECORDS SUMMARY | 2024-03-14 11:07 | XMS_ITS | Encounter Summary ---
Author Organization [facility] Address [address] [place] [address] Phone Care Team Providers Care Rayon Winder Name Role Phone Unavailable Primary Care Provider Unavailabl e Encounter Details Date Type Department Care Team (Latest Contact Info) Description 12/13/2023 9:50 AM FITTING ROOM INSPECTOR - 12/13/2023 11:59 PM [facility] Hospital Encounter [facility] [address] [address] Shahbaz Urias MD [address] [facility] [address] [place], [place] [address] Discharge Disposition: Discharged to home or self [...] note were not included. [facility] DIAGNOSTIC LAB[facility]ATORY [facility] DEPARTMENT OF NEUROLOGY [address] [place] [address] Autonomic Test Report Visit Date: 12/13/2023 Autonomic Test Page 6 of 6 Name: Merry Rooney Referring Physician: Candelaria Urias MD Gender: Female Date: 2000 Referring Institution: [facility] Cardiology Height: 5' 7 Weight: 195 lbs [...] Table: [place] - 2004 Normative data courtesy [facility] Autonomic Test Page 6 of 6 Heart Rate Deep Breathing Test Test Data Max Rate Min Rate Difference 81.6 56.6 25.0 88.9 54.3 34.6 85.7 55.3 30.4 93.0 58.5 34.5 90.9 59.4 31.5 88.2 52.2 36.1 Analysis Summary Average HR Difference: 32.0 E:I Ratio: 1.57 5th Percentile: 14.0 95th Percentile: 41.0 Norms Table: HRDB - 2004 Normative data courtesy of [facility] Autonomic Test Page 6 of 6 Tilt Table Test documented in this encounter Plan of Treatment Not on file documented as of this encounter Procedures Procedure Name Priority Date/Time Associated Diagnosis Comments AUTONOMIC Routine 12/13/2023 9:50 AM FITTING ROOM INSPECTOR POTS (postural orthostatic tachycardia syndrome) documented in this encounter Visit Diagnoses Diagnosis POTS (postural orthostatic tachycardia syndrome) Tachycardia, unspecified documented in this encounter Additional Health Concerns Assessment Noted Time PHQ-9 Depression Total Score: 7 08/22/20 23 11:05 AM FITTING ROOM INSPECTOR PHQ-2 Depression Total Score: 2 08/22/20 23 11:05 AM FITTING ROOM INSPECTOR documented as of this encounter
--- OUTSIDE RECORDS SUMMARY | 2024-03-14 11:07 | XMS_ITS | Referral Summary ---
Author Organization [facility] Address [address] [address] Phone Care Team Providers Care Production Assembler Name Role Phone Alfred Lambert APRN, CNP Primary Care Provider Source Comments [employer] is fully rolled out on [employer] Last update 03/14/09.[facility] [employer] Encounters Date Type Department Care Team Description 02/17/2024 11:30 AM CDT Erroneous Encounter [facility] [address] [place], [place] 64[address] Ray Cutler PA-C ERRONEOUS ENCOUNTER-DISREGARD (Primary Dx) 01/24/2024 3:00 PM CDT Office Visit [facility] [address] [address] Justina Bowser APRN, CNP POTS (postural orthostatic tachycardia syndrome) (Primary Dx) Discharge Disposition: Discharged to home or self care (routine discharge) 01/17/2024 Travel 01/17/2024 12:05 PM CDT - 01/17/2024 11:59 PM CDT Hospital Encounter [facility] Echo Lab [address] [place] [address] Cj Urias MD Discharge Disposition: Discharged to home or self care (routine discharge) 01/03/2024 3:00 PM CDT Telemedicine [facility] Sleep Center [address] [place], [place] [address] Trip Nieto MD Insomnia, unspecified type (Primary Dx) Discharge Disposition: Discharged to home or self care (routine discharge) 12/13/2023 Travel 12/13/2023 9:50 AM [facility] - 12/13/2023 11:59 PM [facility] Hospital Encounter [facility] [address] [address] Cj Urias MD Discharge Disposition: Discharged to [...] disorder, unspecified type 06/08/2023 Bipolar II disorder ([facility]) 05/09/2023 PTSD (post-traumatic stress disorder) 05/09/2023 Eclampsia (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 Encounter for screening 02/05/2005 06/08/20 Overview: LW Onset: [id number] ; Child and Teen Check Up Needs [...] Comments Blood Pressure 116/79 11/24/2023 1:18 PM DIRECTOR GRAPHICS Pulse 104 11/24/2023 1:18 PM DIRECTOR GRAPHICS Temperature 36.4 ??C (97.5 ??F) 06/14/2023 9:28 AM CD T Respiratory Rate 18 06/14/2023 9:28 AM CDT Oxygen Saturation 99% 06/14/2023 9:28 AM CDT Inhaled Oxygen Concentration - - Weight 89.4 kg (197 lb) 11/24/2023 1:18 PM DIRECTOR GRAPHICS Height 170.8 cm (5' 7.24) 06/08/2023 8:18 PM CD T Body Mass Index 30.63 06/08/2023 8:18 PM CDT Plan of Treatment Not on file Procedures Procedure Name Priority Date/Time Associated Diagnosis Comments ECH TRANSTHOR (TTE) COMPLETE WITHOUT CONTRAST Routine 01/17/2024 1:01 PM CDT POTS (postural orthostatic tachycardia syndrome) AUTONOMIC Routine 12/13/2023 9:50 AM DIRECTOR GRAPHICS POTS (postural orthostatic tachycardia syndrome) PAP TEST Routine 07/01/2023 3:00 PM CDT HIV COMBO Routine 11/26/2022 2:16 PM DIRECTOR GRAPHICS URINE CHLAMYDIA AND NEISSERIAE GONORRHOEAE AMPLIFICATION Routine 11/26/2022 1:42 PM DIRECTOR GRAPHICS from Last 3 Months or Most Recently [...] 67.24 Inches MERRY D Patient Number ?? [id number] ?Weight ? 197 Pounds Date of ?2000 ? BSA ?2.01 m^2 Age ?23 ? Tape Number Gender ? Female ? Study Date ? 01/17/2024 12:20 PM Fire Sprinkler Fitter ?PC ? Ordering Provider ??SIMEGN CJ A Referring ?SIMEGN CJ ??Interpreting ? Iain Tyler MD Physician ?A ?Physician ?[id number] Type of Study: TTE procedure: 2D echocardiogram, [...] Height 67.24 Inches MERRY D Patient Number [id number] Weight 197 Pounds Date of 2000 BSA 2.01 m^2 Age 23 Tape Number Gender Female Study Date 01/17/2024 12:20 PM Fire Sprinkler Fitter PC Ordering Provider NINI Madrigal Referring NINI CORONA Interpreting Iain Tyler MD Physician A Physician [id number] Type of Study: TTE procedure: 2D echocardiogram, [...] True True True True Cj Urias MD [facility] ECHO [facility] HEARTYieldPlanet from Last 3 Months or Most Recently Relevant to Health Maintenance Advance Directives For more information, please contact: [phone] * Full Code (Latest Code Status on File) Date Activated Date Inactivated Comments 06/08/2023 10:12 PM 06/15/2023 1:52 PM Question Answer Comments Does the Patient have prefer ences regarding life sustaining measures (these options only apply when the patient has a pulse): No Discussed Code Status With Whom? Not discussed Care Teams Production Assembler Relationship Specialty Start Date End Date Alfred Lambert, ELECTRONIC SERVICE TECHNICIAN, PURSE FRAMER [address] [place] [address] PCP - General Internal Medicine 01/17/24
--- OUTSIDE RECORDS SUMMARY | 2024-03-14 11:07 | XMS_ITS | Encounter Summary ---
Author Organization [facility] Address [address] [facility] [place] [address] Phone Care Team Providers Care Digital Strategy Specialist Name Role Phone Alfred Lambert APRN, CNP Primary Care Provider Reason for Visit * Prior Authorization (Routine) - Closed Specialty Diagnoses / Procedures Referred By Contac t Referred To Contact CARDIOLOGY ECHO LAB Diagnoses POTS (postural orthostatic tachycardia syndrome) f/u POTS (postural orthostatic tachycardia syndrome) [G90.A] Procedures [place] ECHO TTHRC R-T 2D W/WOM-MODE COMPL SPEC&COLR D Echo Lab [address] [place] [employer] [address] [place] [address] Referral ID Status Reason Start Date Expiration Date Visits Re quested Visits Authorized [id number] Closed 1 1 Encounter Details Date Type Department Care Team (Latest Contact Info) Description 01/17/2024 12:05 PM CDT - 01/17/2024 11:59 PM CDT Hospital Encounter [facility] Echo Lab [address] [facility] [address] [place], [place] [address] Shahbaz Urias MD [address] [place] [address] Discharge Disposition: Discharged to home [...] 67.24 Inches RICHIE D Patient Number ?? [id number] ?Weight ? 197 Pounds Date of ?2000 ? BSA ?2.01 m^2 Age ?23 ? Tape Number Gender ? Female ? Study Date ? 01/17/2024 12:20 PM Pick Up Operator ?PC ? Ordering Provider ??NINI Madrigal Referring ?NINI CORONA ??Interpreting ? Iain Tyler MD Physician ?A ?Physician ?[id number] Type of Study: TTE procedure: 2D echocardiogram, [...] Height 67.24 Inches RICHIE D Patient Number [id number] Weight 197 Pounds Date of 2000 BSA 2.01 m^2 Age 23 Tape Number Gender Female Study Date 01/17/2024 12:20 PM Pick Up Operator PC Ordering Provider NINI Madrigal Referring NINI CORONA Interpreting Iain Tyler MD Physician A Physician [id number] Type of Study: TTE procedure: 2D echocardiogram, [...] True True True True Shahbaz Urias MD [facility] ECHO [facility] documented in this encounter Visit Diagnoses Diagnosis POTS (postural orthostatic tachycardia syndrome) Tachycardia, unspecified documented in this encounter Additional Health Concerns Assessment Noted Time PHQ-9 Depression Total Score: 7 08/22/20 11:05 AM TUTORING MANAGER PHQ-2 Depression Total Score: 2 08/22/20 11:05 AM TUTORING MANAGER documented as of this encounter Care Teams Digital Strategy Specialist Relationship Specialty Start Date End Date Alfred Lambert, OCCUPATIONAL THERAPIST, CRUISE COORDINATOR [address] [place] [address] PCP - General Internal Medicine 01/17/24 documented as of this encounter
--- OUTSIDE RECORDS SUMMARY | 2024-03-14 11:07 | XMS_ITS | Encounter Summary ---
Author Organization [facility] Address [address] [place] [address] Phone Care Team Providers Care Emergency Worker Name Role Phone Alfred Lambert APRN, CNP Primary Care Provider [phone] Reason for Referral * Consult/Test/Treat (Routine) - New Request Specialty Diagnoses / Procedures Referred By Bernardo belle Referred To Contact Physical Medicine and Rehab / PHYSICAL MEDICINE AND REHAB Diagnoses POTS (postural orthostatic tachycardia syndrome) Justina Bowser APRN, CNP [address] [place] [address] [facility] [address] [place] [address] Referral ID Status Reason Start Date Expiration Date V isits Requested Visits Authorized [id number] New Request 01/24/2024 01/23/2025 1 1 Reason for Visit * Reason Comments Follow-up Encounter Details Date Type Department Care Team (Late st Contact Info) Description 01/24/2024 3:00 PM CDT Office Visit [facility] [address] [place] [address] Justina Bowser APRN, CNP [address] [address] POTS (postural orthostatic tachycardia syndrome) (Primary Dx) [...] as of this encounter Progress Notes * Jsutina Bowser, HEALTH CARE LEGAL ASSISTANT, SOFTWARE LEAD - 01/24/2024 3:00 PM CDT Images from [...] evaluation I personally reviewed today: [facility] TRANSTHORACIC ECHO (TTE) (01/17/2024 13:01) I personally [...] not prevent her from receiving futurecare at [facility]. - Patient acknowledges risks of telemedicine and agrees to follow provider's recommendations. Patient consents to this service: Yes. Patient's Physical Location: Home Provider's Physical Location: Onsite at [facility] Participants in this Telemedicine Visit other [...] Total Score: 7 08/22/20 23 11:05 AM PAWN SHOP KEEPER PHQ-2 Depression Total Score: 2 08/22/20 23 11:05 AM PAWN SHOP KEEPER documented as of this encounter Care Teams Emergency Worker Relationship Specialty Start Date End Date Alfred Lambert APRN, CNP [address] [address] PCP - General Internal Medicine 01/17/24 documented as of this encounter
--- OUTSIDE RECORDS SUMMARY | 2024-03-14 11:07 | XMS_ITS | Encounter Summary ---
Author Organization [facility] Address [address] [place] [address] Phone Care Team Providers Care Superintendent Operating Name Role Phone Unavailable Primary Care Provider [...] Total Score: 7 08/22/20 23 11:05 AM VISCOSE CELLAR WORKER PHQ-2 Depression Total Score: 2 08/22/20 23 11:05 AM VISCOSE CELLAR WORKER documented as of this encounter
--- OUTSIDE RECORDS SUMMARY | 2024-03-14 11:08 | XMS_ITS | Encounter Summary ---
Author Organization [place] Address [address] [facility] [address] Care Team Providers Care Senior Structural Engineer Name Role Phone Abbey Bagley PA-C Unavailable Unavailable Abbey Bagley PA-C Primary Care Provider Unava ilable Ino Robbins MD Unavailable [phone] Azul Gilman DO Unavailable [phone] Kelley Diane DO Unavailable [phone] Ino Robbins MD Unavailable Encounter Details Date Type Department Care Team (Late st Contact Info) Description 04/07/2021 MyC Medical Advice [facility] [address] [place] [phone] Ino Robbins MD [address] [place] [address] Social History Tobacco Use Types Packs/Day Years Used Date Smoking Tobacco: Every Day Cigarettes Smokeless Tobacco: Never Alcohol Use Standard Drinks/Week Comments Not Currently 0 (1 standard drink = 0.6 oz pur e alcohol) Seldom PHQ-2 Answer Date Recorded PHQ-2 Score 6 02/19/2021 [place] Depression Scale Answer Date Recorded [place] Depression Score 13 03/10/2021 Last EPDS Self [...] as of this encounter Care Teams Senior Structural Engineer Relationship Specialty Start Date End Date Abbey Bagley PA-C PCP - General Physician Track Layer 08/15/20 Abbey Bagley PA-C Physician Track Layer 04/11/20 05/02/23 Ino Robbins MD [address] [place] [address] Assigned OBGYN Provider 03/08/21 Azul Gilman DO [address] [place] [address] Assigned Heart and Vascular Provider 03/08/21 09/10/22 Kelley Diane DO [address] [place] [address] Assigned OBGYN Provider 12/04/22 Ino Robbins MD [address] [place] [address] Assigned OBGYN Provider 01/01/23 documented as of this encounter
--- OUTSIDE RECORDS SUMMARY | 2024-03-14 11:08 | XMS_ITS | Encounter Summary ---
Author Organization [place] Address [facility] [place] [address] Care Team Providers Care Public Health Aides Teacher Name Role Phone Abbey Bagley PA-C Unavailable Unavailable Abbey Bagley PA-C Primary Care Provider Kelley Ko DO Unavailable Ino Robbins MD Unavailable Encounter Details Date Type Department Care Team (Late st Contact Info) Description 11/22/2022 [facility] Medical Advice [address] [place] [address] Di Sher RN Social History Tobacco Use Types Packs/Day Years Used Date Smoking Tobacco: Every Day Cigarettes Smokeless Tobacco: Never Alcohol Use Standard Drinks/Week Comments Not Currently 0 (1 standard drink = 0.6 oz pur e alcohol) Seldom PHQ-2 Answer Date Recorded PHQ-2 Score 2 11/26/2022 [place] Depression Scale Answer Date Recorded [place] Depression Score 13 03/10/2021 Last EPDS Self [...] Coronavirus/COVID-19? No / Unsure 11/17/2022 6:32 PM HELICOPTER PILOT INSTRUCTOR documented as of this encounter Plan of Treatment Not on file documented as of this encounter Visit Diagnoses Not on filedocumented in this encounter Additional Health Concerns Assessment Noted Time PHQ-9 Depression Total Score: 19 021 3:52 PM CDT documented as of this encounter Care Teams Public Health Aides Teacher Relationship Specialty Start Date End Date Abbey Bagley PA-C PCP - General Physician Warehouse Delivery Driver 08/15/20 Abbey Bagley PA-C Physician Warehouse Delivery Driver 04/11/20 05/02/23 Kelley Diane DO [address] [address] Assigned OBGYN Provider 12/04/22 Ino Robbins MD [address] [place] [address] Assigned OBGYN Provider 01/01/23 documented as of this encounter
--- OUTSIDE RECORDS SUMMARY | 2024-03-14 11:08 | XMS_ITS | Encounter Summary ---
Author Organization [place] Address [facility] [place] [address] Care Team Providers Care Internal Affairs Commander Name Role Phone Abbey Bagley PA-C Unavailable Unavailable Abbey Bagley PA-C Primary Care Provider Kelley Ko DO Unavailable Ino Robbins MD Unavailable Encounter Details Date Type Department Care Team (Late st Contact Info) Description 11/23/2022 [facility] Medical Advice [address] [place] [address] Di Sher RN Social History Tobacco Use Types Packs/Day Years Used Date Smoking Tobacco: Some Days Cigarettes Smokeless Tobacco: Never Alcohol Use Standard Drinks/Week Comments Not Currently 0 (1 standard drink = 0.6 oz pur e alcohol) Seldom PHQ-2 Answer Date Recorded PHQ-2 Score 2 11/26/2022 [place] Depression Scale Answer Date Recorded [place] Depression Score 13 03/10/2021 Last EPDS Self [...] Coronavirus/COVID-19? No / Unsure 11/26/2022 1:26 PM SR COMMUNITY MANAGER documented as of this encounter Plan of Treatment Not on file documented as of this encounter Visit Diagnoses Not on filedocumented in this encounter Additional Health Concerns Assessment Noted Time PHQ-9 Depression Total Score: 19 021 3:52 PM CDT documented as of this encounter Care Teams Internal Affairs Commander Relationship Specialty Start Date End Date Abbey Bagley PA-C PCP - General Physician Brokerage Branch Manager 08/15/20 Abbey Bagley PA-C Physician Brokerage Branch Manager 04/11/20 05/02/23 Kelley Diane DO [address] [address] Assigned OBGYN Provider 12/04/22 Ino Robbins MD [address] [place] [address] Assigned OBGYN Provider 01/01/23 documented as of this encounter
--- OUTSIDE RECORDS SUMMARY | 2024-03-14 11:08 | XMS_ITS | Encounter Summary ---
Author Organization [facility] Address [address] [place] [address] Care Team Providers Care Crust Sorter Name Role Phone Abbey Bagley PA-C Unavailable Unavailable Abbey Bagley PA-C Primary Care Provider Unava ilable Ino Robbins MD Unavailable [phone] Azul Gilman DO Unavailable [phone] Kelley Diane DO Unavailable [phone] Ino Robbins MD Unavailable Reason for Visit * Reason Onset Date Comments Refill Request 04/02/2021 Encounter Details Date Type Department Care Team (Late st Contact Info) Description 04/02/2021 MyC Refill Initial Department Abbey Bagley PA-C [facility] Refill Request Social History Tobacco Use Types Packs/Day Years Used Date Smoking Tobacco: Every Day Cigarettes Smokeless Tobacco: Never Alcohol Use Standard Drinks/Week Comments Not Currently 0 (1 standard drink = 0.6 oz pur e alcohol) Seldom PHQ-2 Answer Date Recorded PHQ-2 Score 6 02/19/2021 [place] Depression Scale Answer Date Recorded [place] Depression Score 13 03/10/2021 Last EPDS Self [...] documented as of this encounter Care Teams Crust Sorter Relationship Specialty Start Date End Date Abbey Bagley PA-C PCP - General Physician Education Site Manager 08/15/20 Abbey Bagley PA-C Physician Education Site Manager 04/11/20 05/02/23 Ino Robbins MD [address] [place] [address] Assigned OBGYN Provider 03/08/21 Azul Gilman DO [address] [place] [address] Assigned Heart and Vascular Provider 03/08/21 09/10/22 Kelley Diane DO [address] [facility] [address] [place] [address] Assigned OBGYN Provider 12/04/22 Ino Robbins MD [address] [place] [address] Assigned OBGYN Provider 01/01/23 documented as of this encounter
--- OUTSIDE RECORDS SUMMARY | 2024-03-14 11:08 | XMS_ITS | Encounter Summary ---
Author Organization [place] Address [address] [facility] [place] [address] Care Team Providers Care Chief Investment Officer Name Role Phone Abbey Bagley PA-C Unavailable Unavailable Abbey Bagley PA-C Primary Care Provider Kelley Ko DO Unavailable Ino Robbins MD Unavailable Encounter Details Date Type Department Care Team (Late st Contact Info) Description 12/07/2022 [facility] [place] [facility] Medical Advice [facility] [address] [place] [phone] Diana Rainey, RN Social History Tobacco Use Types Packs/Day Years Used Date Smoking Tobacco: Some Days Cigarettes Smokeless Tobacco: Never Alcohol Use Standard Drinks/Week Comments Not Currently 0 (1 standard drink = 0.6 oz pur e alcohol) Seldom PHQ-2 Answer Date Recorded PHQ-2 Score 2 11/26/2022 Hernandez Depression Scale Answer Date Recorded Hernandez Depression Score 13 03/10/2021 Last EPDS Self [...] Coronavirus/COVID-19? No / Unsure 11/26/2022 1:26 PM BAND SALVAGER documented as of this encounter Plan of Treatment Not on file documented as of this encounter Visit Diagnoses Not on filedocumented in this encounter Additional Health Concerns Assessment Noted Time PHQ-9 Depression Total Score: 19 021 3:52 PM CDT documented as of this encounter Care Teams Chief Investment Officer Relationship Specialty Start Date End Date Abbey Bagley PA-C PCP - General Physician Landscape Architecture Teacher 08/15/20 Abbey Bagley PA-C Physician Landscape Architecture Teacher 04/11/20 05/02/23 Kelley Diane DO [address] [address] Assigned OBGYN Provider 12/04/22 Ino Robbins MD [address] [place] [address] Assigned OBGYN Provider 01/01/23 documented as of this encounter
--- OUTSIDE RECORDS SUMMARY | 2024-03-14 11:08 | XMS_ITS | Encounter Summary ---
Author Organization [place] Address Formerly [facility] [place] [address] Care Team Providers Care Photogrammetric Tech Name Role Phone Abbey Bagley PA-C Unavailable Unavailable Abbey Bagley PA-C Primary Care Provider Unava ilable Ino Robbins MD Unavailable [phone] Reason for Visit * Reason Onset Date Comments Care 04/26/2023 Encounter Details Date Type Department Care Team (Late st Contact Info) Description 04/26/2023 [facility] Medical Advice [facility] [address] [place] [phone] Ino Robbins MD [address] [place], [place] [address] Care Social History Tobacco Use Types Packs/Day Years Used Date Smoking Tobacco: Former Cigarettes Q uit: 03/10/2023 Passive Smoke Exposure: Never Smokeless Tobacco: Never Alcohol Use Standard Drinks/Week Comments Not Currently 0 (1 standard drink = 0.6 oz pur e alcohol) Seldom PHQ-2 Answer Date Recorded PHQ-2 Score 0 04/14/2023 [place] Depression Scale Answer Date Recorded [place] Depression Score 13 03/10/2021 Last EPDS Self [...] documented as of this encounter Care Teams Photogrammetric Tech Relationship Specialty Start Date End Date Abbey Bagley PA-C PCP - General Physician Mammographer 08/15/20 Abbey Bagley PA-C Physician Mammographer 04/11/20 05/02/23 Ino Robbins MD [address] [place] [address] Assigned OBGYN Provider 01/01/23 documented as of this encounter
--- OUTSIDE RECORDS SUMMARY | 2024-03-14 11:08 | XMS_ITS | Clinical Summary ---
Author Organization [facility] Address [place], [place] [address] Care Team Providers Care Buckshot Swage Operator Name Role Phone Staff, Other Clinical Primary [...] Lab Requisition [facility] [phone] Comfort Platt, CHIP LOFT WORKER from Last 3 Months Immunizations Name Administration Dates Next Due COVID-19 vaccine (Yell.ru-Bio NTech 30mcg/0.3mL) [place] KRAMER 2021 DTaP 05/23/2007, 7,08/27/2004,08/27,2002,2002 [id number] (Pediarix) 07/16/2004,07/16/2004 HIB PRP-OMP (PedvaxHIB) 07/16/2004 HIB [...] Austin Ledezma MD Complications: Intolera nce Delivery Location:[facility] ( LABOR AND DELIVERY) 05/03 Term [...] - Increase reliability General Yes Praful Orozco, HEEL BLACKER, COFFEE SOMMELIER Note: Goal identified during: Initial Screening Status: [...] follow-up in two weeks to review her [facility] goals and get a status update [...] GOLD PLUS Routine 02/29/2024 4:15 PM CDT RETAIL MAINTENANCE TECHNICIAN THIN PREP PAP SCREEN IMAGED Routine 07/01/2023 3:00 PM CDT GC CHLAMYDIA TRACH PROBE Routine 09/21/2022 1:00 PM ELECTRIC DISTRIBUTION ENGINEER Cramping affecting , antepartum ANTI HIV 1/2 Routine 09/11/2020 8:23 AM ELECTRIC DISTRIBUTION ENGINEER Encounter for supervision of normal first in first trimester ANTI HCV Routine 09/11/2020 8:23 AM ELECTRIC DISTRIBUTION ENGINEER Encounter for supervision of normal first in first trimester from Last 3 Months or Most Recently Relevant to Health Maintenance Results * QFT MITOGEN PERFORMABLE (02/29/2024 4:15 PM CDT) MITOGEN 10.00 IU/mL 03/02/2024 12:58 PM CDT [facility] Blood BLOOD SPECIMEN / Unknown Client Collect / Unknown 02/29/2024 4:15 PM CDT 03/01/2024 9:47 PM CDT Comfort Platt NP CHEMISTRY Performing Organization Address City/[facility] [[email or web address]] Co de Phone Number [facility] [address] [place] [address], [place] * QFT TB2 PERFORMABLE (02/29/2024 4:15 PM CDT) TB2 0.02 IU/mL 03/02/2024 11:32 AM CDT [facility] Blood BLOOD SPECIMEN / Unknown Client Collect / Unknown 02/29/2024 4:15 PM CDT 03/01/2024 9:47 PM CDT Comfort Platt NP CHEMISTRY Performing Organization Address [facility] [[email or web address]] Co de Phone Number [facility] [address] [place] [address], [place] * QFT TB1 PERFORMABLE (02/29/2024 4:15 PM CDT) TB1 0.00 IU/mL 03/02/2024 11:33 AM CDT [facility] Blood BLOOD SPECIMEN / Unknown Client Collect / Unknown 02/29/2024 4:15 PM CDT 03/01/2024 9:47 PM CDT Comfort Platt NP CHEMISTRY Performing Organization Address [facility] [[email or web address]] Co de Phone Number [facility] [address] [place] [address], [place] * QUANTIFERON TB GOLD PLUS (02/29/2024 4:15 PM CDT) QFTP NIL 0.00 03/02/2024 2:53 PM CDT [facility] TB1 0.00 IU/mL 03/02/2024 2:53 PM CDT [facility] TB2 0.02 IU/mL 03/02/2024 2:53 PM CDT [facility] MITOGEN 10.00 IU/mL 03/02/2024 2:53 PM CDT [facility] QFTP TB AG1 - NIL 0.00 024 2:53 PM CDT [facility] TB1-NIL % OF NIL 03/02/20 2:53 PM CDT [facility] Comment:Unable to calculate QFTP TB AG2 - NIL 0.02 024 2:53 PM CDT [facility] TB2-NIL % OF NIL 03/02/20 2:53 PM CDT [facility] Comment:Unable to calculate QFTP MITOGEN - NIL 10.00 2023 2:53 PM CDT [facility] QFTP QUANTIFERON INTERPRETATION Negative Negative 03/02/2024 2:53 PM CDT [facility] Blood BLOOD SPECIMEN / Unknown Client Collect / Unknown 02/29/2024 4:15 PM CDT 03/01/2024 9:47 PM CDT [facility] - 03/02/2024 2:53 PM CDT [...] old. - women Comfort Platt NP CHEMISTRY [facility] [address] [place] [address], * RETAIL MAINTENANCE TECHNICIAN THIN PREP PAP SCREEN IMAGED (07/01/2023 3:00 PM CDT) Case Report Gynecologic Cytology Report ? Case: [id number] ? Authorizing Provider: ??Denise Fry, CHIP LOFT WORKER ?? Collected: ? 07/01/2023 1500 ? Ordering Location: ? [facility] ?Received: ?07/05/2023 1303 ? First Screen: ?Ino Enriquez ? Specimen: ?RETAIL MAINTENANCE TECHNICIAN ThinPrep Vial Screening, Cervical ? 07/12/2023 9:32 AM CDT [facility]AL LABORATORY INTERPRETATION/ RESULT NEGATIVE FOR INTRAEPITHELIAL LESION OR MALIGNANCY (NIL) (none) 07/12/2023 9:32 AM CDT [facility] IMEN ADEQUACY Satisfactory for evaluation Endocervical component present Scant cellularity 07/12/2023 9:32 AM CDT [facility] HPV REQUEST HPV not requested 10/03/ 2023 9:32 AM CDT [facility] Date of LMP 06/15/2023 07/12/2023 9:32 AM CDT [facility] Last Pap Result First Pap/Unknown 9:32 AM CDT [facility] Abnormal Pap or [place] Bx in last 5 years No 07/12/2023 9:32 AM CDT [facility] Menstrual Status Regular Periods 07/12/2023 9:32 AM CDT [facility] [place] Bx Done Today No 07/12/2023 9:32 AM CDT [facility] Additional Information 07/12/2023 9:32 AM CDT [facility] Comment: Interpreted at [facility] - [address] [place] [address] Automated Review Successful 07/12/2023 9:32 AM CDT [facility] Comment:Specimen processed s uccessfully by automated wetlands conservation laborer device, ThinPrep Imaging System, [employer] Note The pap test is a [...] and malignant lesions. 07/12/2023 9:32 AM CDT [facility] Other (Cervical) 07/01/2023 3:00 PM CDT 07/05/2023 1:03 PM CDT Denise Fry NP PATHOLOGY/CYTOLOG Y [facility] [address] [place] [address], * GC CHLAMYDIA TRACH PROBE (09/21/2022 1:00 PM ELECTRIC DISTRIBUTION ENGINEER) CHLAMYDIA PROBE Negative 5:24 PM ELECTRIC DISTRIBUTION ENGINEER [facility] N GONORRHOEAE PROBE Negative 09/22/2022 5:24 PM ELECTRIC DISTRIBUTION ENGINEER [facility] Other VAGINAL SWAB / Unknown Non-Blood / Unknown 09/21/2022 1:00 PM ELECTRIC DISTRIBUTION ENGINEER 09/21/2022 1:49 PM ELECTRIC DISTRIBUTION ENGINEER Deborah Senior NP MICROBIOLOGY Performing Organization Address City/[facility]/ZIP Co de Phone Number [facility] [address] [place] [address], [place] * ANTI HCV (09/11/2020 8:23 AM ELECTRIC DISTRIBUTION ENGINEER) HEPATITIS C ANTIBODY Non-React kamrna Non-React kamran 09/11/2020 12:51 PM ELECTRIC DISTRIBUTION ENGINEER [facility] Comment:Antibodies to HCV no t detected; does not exclude the possibility of exposure to HCV. Blood BLOOD SPECIMEN / Unknown Butterfly / Unknown 09/11/2020 8:23 AM ELECTRIC DISTRIBUTION ENGINEER 09/11/2020 8:24 AM ELECTRIC DISTRIBUTION ENGINEER Kira Turner DO SEND OUTS Performing Organization Address [facility] [[email or web address]] Co de Phone Number [facility] [address] [place] [address], [place] * ANTI HIV 1/2 (09/11/2020 8:23 AM ELECTRIC DISTRIBUTION ENGINEER) Pathologist [facility] HIV-1/HIV-2 ANTIBODY Non-Reacti ve Non-Reacti ve 09/11/2020 12:38 PM ELECTRIC DISTRIBUTION ENGINEER [facility] Comment:HIV-1 p24 and HIV-1/ HIV-2 Ab not detected. Blood BLOOD SPECIMEN / Unknown Butterfly / Unknown 09/11/2020 8:23 AM ELECTRIC DISTRIBUTION ENGINEER 09/11/2020 8:24 AM ELECTRIC DISTRIBUTION ENGINEER Kira Turner DO SEND OUTS [facility] [address] [place] [address], [place] from Last 3 Months or Most [...] 3:46 PM 08/18/2016 1:40 PM Care Teams Buckshot Swage Operator Relationship Specialty Start Date End Date Staff, Other Clinical . PCP - General 06/05/23
--- OUTSIDE RECORDS SUMMARY | 2024-03-14 11:08 | XMS_ITS | Referral Summary ---
Author Organization [place] Address [address] [place] [place] [address] Care Team Providers Care Floor Refinisher Name Role Phone Abbey Bagley PA-C Primary [...] Answer Date Recorded PHQ-2 Score 0 04/14/2023 [place] Depression Scale Answer Date Recorded Last EPDS [...] ANTIGEN ANTIBODY COMBO Routine 11/26/2022 2:16 PM CONTROL TECHNICIAN Encounter for supervision of other normal in second trimester HEPATITIS C ANTIBODY Routine 11/26/2022 2:16 PM CONTROL TECHNICIAN Encounter for supervision of other normal in second trimester CHLAMYDIA TRACHOMATIS PCR Routine 11/26/2022 1:42 PM CONTROL TECHNICIAN Screen for STD (sexually transmitted disease) from Last 3 Months or Most Recently Relevant to Health Maintenance Results * HIV Antigen Antibody Combo (11/26/2022 2:16 PM CONTROL TECHNICIAN) HIV Antigen Antibody Combo Nonreactive Nonreactive 11/27/2022 2:46 PM CONTROL TECHNICIAN [facility]EN DO Comment:HIV-1 p24 Ag & HIV-1 /HIV-2 Ab Not Detected Blood BLOOD SPECIMEN / Unknown Venipuncture / Unknown 11/26/2022 2:16 PM CONTROL TECHNICIAN 11/26/2022 2:28 PM CONTROL TECHNICIAN Kelley Diane DO LAB - BLOOD ORDER [facility]/PROT/ENDO [facility]/Prot/Endo [address] [facility], [address] [phone] * Hepatitis C antibody (11/26/2022 2:16 PM CONTROL TECHNICIAN) Pathologist [facility] Hepatitis C Antibody Nonreactive Nonreactive 11/27/2022 2:46 PM CONTROL TECHNICIAN SPECIALTY CORE/PROT/EN DO Blood BLOOD SPECIMEN / Unknown Venipuncture / Unknown 11/26/2022 2:16 PM CONTROL TECHNICIAN 11/26/2022 2:28 PM CONTROL TECHNICIAN Narrative SPECIALTY CORE/PROT/ENDO - 11/27/2022 2:46 PM CONTROL TECHNICIAN Assay performance characteristics have not been established for newborns, infants, and children. Kelley Diane DO LAB - BLOOD ORDER [place] SPECIALTY CORE/PROT/ENDO Specialty Core/Prot/Endo [address] [facility] [place] [address], [facility] [phone] * CHLAMYDIA TRACHOMATIS PCR (11/26/2022 1:42 PM CONTROL TECHNICIAN) Pathologist [facility] Chlamydia trachomatis Negative Negative 11/27/2022 12:55 PM CONTROL TECHNICIAN [facility] Comment:A negative result by obiee obia solution architect mediated amplification does not preclude the presence of C. trachomatis infection because results are dependent on proper and adequate collection, absence of inhibitors and sufficient rRNA to be detected. Swab CERVIX UTERI STRUCTURE / Unknown Non-blood Collection / Unknown 11/26/2022 1:42 PM CONTROL TECHNICIAN 11/26/2022 3:02 PM CONTROL TECHNICIAN Kelley Diane DO LAB - MICRO GENER AL ORDERABLES [facility] Inf. Diseases Diag. Lab [address] [facility] [place] [address], [facility] [phone] from Last 3 Months or Most Recently Relevant to Health Maintenance Advance Directives For more information, please contact: [phone] * Full Code (Latest Code Status on [...] aisha nt/ legal decision maker Care Teams Floor Refinisher Relationship Specialty Start Date End Date Abbey Bagley PA-C PCP - General Physician Supervisor Finishing Department 08/15/20 Ino Robbins MD [address] [place] [address] Assigned OBGYN Provider 01/01/23
--- NOTE | 2024-03-14 11:15 | CRLHL7_ITS ---
For Patients: As a result of the Century Cures Act, medical imaging exams and procedure reports are released immediately into your electronic medical record. You may view this report before your referring provider. If you have questions, please contact your health care provider. CLINICAL HISTORY: PELVIC AND PERINEAL PAIN TECHNIQUE: 2D rand scale ultrasound. In addition color Doppler and spectral Doppler analysis was performed of the pelvis using a transabdominal and transvaginal approach. FINDINGS: The myometrium has a normal uniform echotexture. The uterus measures 9.2 x 4.2 x 5.0 cm. The endometrial lining appears normal and measures 13 mm in thickness. The right ovary measures 3.7 x 2.1 x 2.4 cm in size and the left ovary measures 4.8 x 1.5 x 2.4 cm. The ovaries demonstrate normal arterial and venous blood flow on color Doppler and spectral Doppler analysis. There are no suspicious fluid collections within the cul-de-sac. Trace physiologic free fluid. IMPRESSION: Normal pelvic ultrasound. No adnexal mass or ovarian torsion. No uterine fibroid. Dictated by Ruddy Mosley MD @ 03/15/2024 10:55:53 AM (Electronically Signed)
== END 2024-03-14 11:06 | disposition home or self-care (01) ==
LOC: US 11:05
PROVIDERS: PCP Nurse Practitioner Family; Visit Provider Registered Nurse
DX: R10.2 Pelvic and perineal pain (principal); R10.32 Left lower quadrant pain
CPT/HCPCS: 76830; 76856; 93976

== ENCOUNTER 2024-04-09 19:19 | Outpatient (CLI) | payer MEDICAID, SELFPAY ==
--- OUTSIDE RECORDS SUMMARY | 2024-04-09 19:21 | XMS_ITS | Encounter Summary ---
Author Organization [facility] Address [address] [place] [address] Phone Care Team Providers Care Merchandise Flow Team Leader Name Role Phone Unavailable Primary Care Provider Unavailabl e Reason for Referral * Consult/Test/Treat (Routine) - New Request Specialty Diagnoses / Procedures Referred By Bernardo belle Referred To Contact SLEEP NEUROLOGY Diagnoses Insomnia, unspecified type Trip Nieto MD [address] [place] [address] Tonny Gold PsyD, DIETER [address] [place] [address] Referral ID Status Reason Start Date Expiration Date V isits Requested Visits Authorized [id number] New Request 01/03/2024 01/02/2025 1 1 Scheduling [...] SLEEP NEUROLOGY Diagnoses Difficulty sleeping Alfred Lambert, LABORATORY ANIMAL CARETAKER, CARDIAC TECHNICIAN [address] [place] [phone] Referral ID Status Reason Start Date Expiration Date Visits Re quested Visits Authorized [id number] Closed 11/10/2023 11/09/2024 1 1 Encounter Details Date Type Department Care Team (Late st Contact Info) Description 01/03/2024 3:00 PM CDT Telemedicine [facility] [address] [place] [address] [id number] [place] [address] Trip Nieto MD [address] [place] [address] Insomnia, unspecified type (Primary Dx) Discharge Disposition: [...] Nieto MD - 01/03/2024 3:00 PM CDT [facility] Merry Rooney : 2000 Sex: [...] complex behavior. 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 She is awake and alert [...] She sees mental health providers outside of [place]. Current medications include ferrous sulfate, valacyclovir, vitamin [...] Score: 7 08/22/20 23 11:05 AM SUPERVISOR TUNNEL HEADING PHQ-2 Depression Total Score: 2 08/22/20 23 11:05 AM SUPERVISOR TUNNEL HEADING documented as of this encounter
--- OUTSIDE RECORDS SUMMARY | 2024-04-09 19:21 | XMS_ITS | Encounter Summary ---
Author Organization [facility] Address [address] [place] [address] Phone Care Team Providers Care Peoplesoft Crm Developer Name Role Phone Alfred Lambert APRN, CNP [...] Total Score: 7 08/22/20 23 11:05 AM TECHNOLOGY INTERN PHQ-2 Depression Total Score: 2 08/22/20 23 11:05 AM TECHNOLOGY INTERN documented as of this encounter Care Teams Peoplesoft Crm Developer Relationship Specialty Start Date End Date Alfred Lambert APRN, CNP [address] [place] [address] PCP - General Internal Medicine 01/17/24 documented as of this encounter
--- OUTSIDE RECORDS SUMMARY | 2024-04-09 19:21 | XMS_ITS | Clinical Summary ---
Author Organization [place] Address [address] [facility] [place] [address] Care Team Providers Care Milk Receiver Name Role Phone Abbey Bagley PA-C Primary [...] Answer Date Recorded PHQ-2 Score 0 04/14/2023 [place] Depression Scale Answer Date Recorded Last EPDS [...] ANTIGEN ANTIBODY COMBO Routine 11/26/2022 2:16 PM STRAP BUCKLER MACHINE Encounter for supervision of other normal in second trimester HEPATITIS C ANTIBODY Routine 11/26/2022 2:16 PM STRAP BUCKLER MACHINE Encounter for supervision of other normal in second trimester CHLAMYDIA TRACHOMATIS PCR Routine 11/26/2022 1:42 PM STRAP BUCKLER MACHINE Screen for STD (sexually transmitted disease) from Last 3 Months or Most Recently Relevant to Health Maintenance Results * HIV Antigen Antibody Combo (11/26/2022 2:16 PM STRAP BUCKLER MACHINE) HIV Antigen Antibody Combo Nonreactive Nonreactive 11/27/2022 2:46 PM STRAP BUCKLER MACHINE [facility] DO Comment:HIV-1 p24 Ag & HIV-1 /HIV-2 Ab Not Detected Blood BLOOD SPECIMEN / Unknown Venipuncture / Unknown 11/26/2022 2:16 PM STRAP BUCKLER MACHINE 11/26/2022 2:28 PM STRAP BUCKLER MACHINE Kelley Diane DO LAB - BLOOD ORDER BROOKE [facility] SPECIALTY CORE/PROT/ENDO [facility] Specialty Core/Prot/Endo [address] [facility] [address] Building, Room 3[address] [phone] * Hepatitis C antibody (11/26/2022 2:16 PM STRAP BUCKLER MACHINE) Hepatitis C Antibody Nonreactive Nonreactive 11/27/2022 2:46 PM STRAP BUCKLER MACHINE [facility]TY C[facility]/PROT/EN DO Blood BLOOD SPECIMEN / Unknown Venipuncture / Unknown 11/26/2022 2:16 PM STRAP BUCKLER MACHINE 11/26/2022 2:28 PM STRAP BUCKLER MACHINE Narrative SPECIALTY CORE/PROT/ENDO - 11/27/2022 2:46 PM STRAP BUCKLER MACHINE Assay performance characteristics have not been established for newborns, infants, and children. Kelley Diane DO LAB - BLOOD ORDER BROOKE SPECIALTY CORE/PROT/ENDO Specialty Core/Prot/Endo [address] [facility], [address] [place], [place] [address] [phone] * CHLAMYDIA TRACHOMATIS PCR (11/26/2022 1:42 PM STRAP BUCKLER MACHINE) Chlamydia trachomatis Negative Negative 11/27/2022 12:55 PM STRAP BUCKLER MACHINE [facility] Comment:A negative result by coal hiker mediated amplification does not preclude the presence of C. trachomatis infection because results are dependent on proper and adequate collection, absence of inhibitors and sufficient rRNA to be detected. Swab CERVIX UTERI STRUCTURE / Unknown Non-blood Collection / Unknown 11/26/2022 1:42 PM STRAP BUCKLER MACHINE 11/26/2022 3:02 PM STRAP BUCKLER MACHINE Kelley Diane DO LAB - MICRO GENER AL ORDERABLES [facility] Inf. Diseases Diag. Lab [address] [facility], [address] [place] [address], [facility] [phone] from Last 3 Months or Most Recently Relevant to Health Maintenance Advance Directives For more information, please contact: [phone] * Full Code (Latest Code Status on [...] aisha nt/ legal decision maker Care Teams Milk Receiver Relationship Specialty Start Date End Date Abbey Bagley PA-C PCP - General Physician Retail Experience Specialist 08/15/20 Ino Robbins MD [address] [place] [address] Assigned OBGYN Provider 01/01/23
--- OUTSIDE RECORDS SUMMARY | 2024-04-09 19:21 | XMS_ITS | Encounter Summary ---
Author Organization [place] Address [address] [facility] [place] [address] Care Team Providers Care Anesthesiologist Attending Name Role Phone Abbey Bagley PA-C Unavailable Unavailable Abbey Bagley PA-C Primary Care Provider Unava ilable Ino Robbins MD Unavailable Reason for Visit * Reason Onset Date Comments Care 04/26/2023 Encounter Details Date Type Department Care Team (Late st Contact Info) Description 04/26/2023 MyC Medical Advice [facility] [address] [place] [phone] Ino Robbins MD [address] [place], [place] [phone] Care Social History Tobacco Use Types Packs/Day Years Used Date Smoking Tobacco: Former Cigarettes Q uit: 03/10/2023 Passive Smoke Exposure: Never Smokeless Tobacco: Never Alcohol Use Standard Drinks/Week Comments Not Currently 0 (1 standard drink = 0.6 oz pur e alcohol) Seldom PHQ-2 Answer Date Recorded PHQ-2 Score 0 04/14/2023 [place] Depression Scale Answer Date Recorded [place] Depression Score 13 03/10/2021 Last EPDS Self [...] documented as of this encounter Care Teams Anesthesiologist Attending Relationship Specialty Start Date End Date Abbey Bagley PA-C PCP - General Physician Oil Refinery Process Technician 08/15/20 Abbey Bagley PA-C Physician Oil Refinery Process Technician 04/11/20 05/02/23 Ino Robbins MD [address] [place] [address] Assigned OBGYN Provider 01/01/23 documented as of this encounter
--- OUTSIDE RECORDS SUMMARY | 2024-04-09 19:21 | XMS_ITS | Encounter Summary ---
Author Organization [place] Address [address] [facility] [place] [address] Care Team Providers Care Director Of Contracts Name Role Phone Abbey Bagley PA-C Unavailable Unavailable Abbey Bagley PA-C Primary Care Provider Kelley Ko DO Unavailable Ino Robbins MD Unavailable Encounter Details Date Type Department Care Team (Late st Contact Info) Description 12/07/2022 [facility] [place] [facility] [address] [place] [phone] Diana Rainey, RN Social History Tobacco Use Types Packs/Day Years Used Date Smoking Tobacco: Some Days Cigarettes Smokeless Tobacco: Never Alcohol Use Standard Drinks/Week Comments Not Currently 0 (1 standard drink = 0.6 oz pur e alcohol) Seldom PHQ-2 Answer Date Recorded PHQ-2 Score 2 11/26/2022 [place] Depression Scale Answer Date Recorded [place] Depression Score 13 03/10/2021 Last EPDS Self [...] Coronavirus/COVID-19? No / Unsure 11/26/2022 1:26 PM FLEET SALES ASSOCIATE documented as of this encounter Plan of Treatment Not on file documented as of this encounter Visit Diagnoses Not on filedocumented in this encounter Additional Health Concerns Assessment Noted Time PHQ-9 Depression Total Score: 19 021 3:52 PM CDT documented as of this encounter Care Teams Director Of Contracts Relationship Specialty Start Date End Date Abbey Bagley PA-C PCP - General Physician Color Mixer 08/15/20 Abbey Bagley PA-C Physician Color Mixer 04/11/20 05/02/23 Kelley Diane DO [address] [address] Assigned OBGYN Provider 12/04/22 Ino Robbins MD [address] [place] [address] Assigned OBGYN Provider 01/01/23 documented as of this encounter
--- OUTSIDE RECORDS SUMMARY | 2024-04-09 19:21 | XMS_ITS | Clinical Summary ---
Author Organization [facility] Address [address] [place] [phone] Phone Care Team Providers Care Advertising Assistant Name Role Phone Alfred Lambert APRN, CNP Primary Care Provider Source Comments [employer] is fully rolled out on [employer]. Last update 03/14/09.[facility] Allergies Active Allergy Reactions Criticality Noted Date [...] (major depressive disord er), recurrent episode, moderate ([facility]) 08/19/2023 Suicidal ideation 06/09/2023 Asthma ([facility]) 06/08/2023 06/08/2023 Essential hypertension in patient (HH S) 06/08/2023 06/08/2023 Hypertension 06/08/2023 06/08/2023 Iron deficiency anemia 06/08/2023 Anxiety 06/08/2023 06/08/2023 Anxiety disorder, unspecified type 06/08/2023 Bipolar II disorder (CMS/HHS) 05/09/2023 PTSD (post-traumatic stress disorder) 05/09/2023 Eclampsia ([facility]) 05/05/2023 06/08/2023 History of depression 05/05/2023 06/08/2023 Iron deficiency 12/23/2020 06/08/2023 Chronic GERD 01/24/2020 06/08/2023 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 Encounter for screening 02/05/2005 06/08/20 Overview: LW Onset: [id number] ; Child and Teen Check Up Needs Resolved Problems Problem Noted Date Diagnosed Date Resolved Date Acute encephalopathy 05/07/2023 06/08/2023 023 Encounters Date Type Department Care Team Description 01/24/2024 3:00 PM CDT [facility] [address] [place] [phone] Justina Bowser APRN, MANAGER TRACK POTS (postural orthostatic tachycardia syndrome) (Primary Dx) Discharge Disposition: Discharged to home or self care (routine discharge) 01/17/2024 12:05 PM CDT - 01/17/2024 11:59 PM CDT Hospital En[place] [facility] [address] [place] [address] Shahbaz Urias MD Discharge Disposition: Discharged to home or self care (routine discharge) 01/17/2024 Travel from Last 3 Months Social History [...] Comments Blood Pressure 116/79 11/24/2023 1:18 PM FIRE FIGHTERS DISPATCHER Pulse 104 11/24/2023 1:18 PM FIRE FIGHTERS DISPATCHER Temperature 36.4 ??C (97.5 ??F) 06/14/2023 9:28 AM CD T Respiratory Rate 18 06/14/2023 9:28 AM CDT Oxygen Saturation 99% 06/14/2023 9:28 AM CDT Inhaled Oxygen Concentration - - Weight 89.4 kg (197 lb) 11/24/2023 1:18 PM FIRE FIGHTERS DISPATCHER Height 170.8 cm (5' 7.24) 06/08/2023 8:18 [...] 01/13/2022 10/21/2021, 07/01 PREVENTATIVE VISIT 10/21/2022 10/21/2021 COVID-19 Vaccine ( season) 2023 09/30/2021, 2021 Chlamydia & Gonorrhea Screening 11/26/2023 11/26/2022, 09/21/2022, 10/21/2021, Additional history exists Depression Management 02/20/2024 08/22/2023 INFLUENZA VACCINE 05/10/2024 10/21/2021, , 08/20/2008, Additional history exists Cervical Cancer Screening Age 21-29 07/01/2026 07/01/2023 TD/TDAP ADULTS 03/30/2033 03/30/2023, 03/02/2021, 02/19/2014, Additional [...] CDT HIV COMBO Routine 11/26/2022 2:16 PM FIRE FIGHTERS DISPATCHER URINE CHLAMYDIA AND NEISSERIAE GONORRHOEAE AMPLIFICATION Routine 11/26/2022 1:42 PM FIRE FIGHTERS DISPATCHER from Last 3 Months or Most Recently [...] 67.24 Inches RICHIE D Patient Number ?? [id number] ?Weight ? 197 Pounds Date of ?2000 ? BSA ?2.01 m^2 Age ?23 ? Tape Number Gender ? Female ? Study Date ? 01/17/2024 12:20 PM Verify Rep ?PC ? Ordering Provider ??NINI Madrigal Referring ?NINI CORONA ??Interpreting ? Iain Tyler MD Physician ?A ?Physician ?[id number] Type of Study: TTE procedure: 2D echocardiogram, [...] Height 67.24 Inches RICHIE D Patient Number [id number] Weight 197 Pounds Date of 2000 BSA 2.01 m^2 Age 23 Tape Number Gender Female Study Date 01/17/2024 12:20 PM Verify Rep PC Ordering Provider NINI Madrigal Referring NINI CORONA Interpreting Iain Tyler MD Physician A Physician [id number] Type of Study: TTE procedure: 2D echocardiogram, [...] True True True True Shahbaz Urias MD [facility] from Last 3 Months or Most Recently Relevant to Health Maintenance Advance Directives For more information, please contact: [phone] * Full Code (Latest Code Status on File) Date Activated Date Inactivated Comments 06/08/2023 10:12 PM 06/15/2023 1:52 PM Question Answer Comments Does the Patient have prefer ences regarding life sustaining measures (these options only apply when the patient has a pulse): No Discussed Code Status With Whom? Not discussed Care Teams Advertising Assistant Relationship Specialty Start Date End Date Alfred Lambert APRN, MANAGER TRACK [address] [place] [address] PCP - General Internal Medicine 01/17/24
--- OUTSIDE RECORDS SUMMARY | 2024-04-09 19:21 | XMS_ITS | Referral Summary ---
Author Organization [facility] Address [address] [place] [address] Phone Care Team Providers Care Sawmill Or Timber Yard Worker Name Role Phone Alfred Lambert APRN, CNP Primary Care Provider Source Comments [employer] is fully rolled out on [employer]. Last update 03/14/09.[place] [employer] Encounters Date Type Department Care Team Description 01/24/2024 3:00 PM CDT [facility] [address] [address] Justina Bowser APRN, CNP POTS (postural orthostatic tachycardia syndrome) (Primary Dx) Discharge Disposition: Discharged to home or self care (routine discharge) 01/17/2024 Travel 01/17/2024 12:05 PM CDT - 01/17/2024 11:59 PM CDT Hospital Encounter [facility] Echo Lab [address] [facility] [address] [place] [address] Shahbaz Urias MD Discharge Disposition: Discharged to [...] (major depressive disord er), recurrent episode, moderate ([facility]) 08/19/2023 Suicidal ideation 06/09/2023 Asthma ([facility]) 06/08/2023 06/08/2023 Essential hypertension in patient (HH S) 06/08/2023 06/08/2023 Hypertension 06/08/2023 06/08/2023 Iron deficiency anemia 06/08/2023 Anxiety 06/08/2023 06/08/2023 Anxiety disorder, unspecified type 06/08/2023 Bipolar II disorder ([facility]/HHS) 05/09/2023 PTSD (post-traumatic stress disorder) 05/09/2023 Eclampsia ([facility]) 05/05/2023 06/08/2023 History of depression 05/05/2023 06/08/2023 Iron deficiency 12/23/2020 06/08/2023 Chronic GERD 01/24/2020 06/08/2023 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 Encounter for screening 02/05/2005 06/08/20 Overview: LW Onset: [id number] ; Child and Teen Check Up Needs [...] Comments Blood Pressure 116/79 11/24/2023 1:18 PM CAREER SERVICES COORDINATOR Pulse 104 11/24/2023 1:18 PM CAREER SERVICES COORDINATOR Temperature 36.4 ??C (97.5 ??F) 06/14/2023 9:28 AM CD T Respiratory Rate 18 06/14/2023 9:28 AM CDT Oxygen Saturation 99% 06/14/2023 9:28 AM CDT Inhaled Oxygen Concentration - - Weight 89.4 kg (197 lb) 11/24/2023 1:18 PM CAREER SERVICES COORDINATOR Height 170.8 cm (5' 7.24) 06/08/2023 8:18 PM CD T Body Mass Index 30.63 06/08/2023 8:18 PM CDT Plan of Treatment Not on file Procedures Procedure Name Priority Date/Time Associated Diagnosis Comments ECH TRANSTHOR (TTE) COMPLETE WITHOUT CONTRAST Routine 01/17/2024 1:01 PM CDT POTS (postural orthostatic tachycardia syndrome) PAP TEST Routine 07/01/2023 3:00 PM CDT HIV COMBO Routine 11/26/2022 2:16 PM CAREER SERVICES COORDINATOR URINE CHLAMYDIA AND NEISSERIAE GONORRHOEAE AMPLIFICATION Routine 11/26/2022 1:42 PM CAREER SERVICES COORDINATOR from Last 3 Months or Most Recently Relevant to Health Maintenance Results * ECH TRANSTHOR (TTE) COMPLETE WITHOUT CONTRAST (01/17/2024 1:01 PM CDT) AoV root 2.6 cm [facility] AoV int. 26.6 m/s [facility] [...] Echocardiography Report (TTE) Demographics Patient Name ? AMRCIE ? Height ? 67.24 Inches RICHIE D Patient Number ?? [id number] ?Weight ? 197 Pounds Date of ?2000 ? BSA ?2.01 m^2 Age ?23 ? Tape Number Gender ? Female ? Study Date ? 01/17/2024 12:20 PM Reconciliation Machine Operator ?PC ? Ordering Provider ??SIMEGN SHAHBAZ A Referring ?SIMEGN SHAHBAZ ??Interpreting ? Iain Tyler MD Physician ?A ?Physician ?[id number] Type of Study: TTE procedure: 2D echocardiogram, [...] Height 67.24 Inches RICHIE D Patient Number [id number] Weight 197 Pounds Date of 2000 BSA 2.01 m^2 Age 23 Tape Number Gender Female Study Date 01/17/2024 12:20 PM Reconciliation Machine Operator PC Ordering Provider NINI Madrigal Referring NINI CORONA Interpreting Iain Tyler MD Physician A Physician [id number] Type of Study: TTE procedure: 2D echocardiogram, [...] True True True True Shahbaz Urias MD [facility] ECHO [facility] [employer] from Last 3 Months or Most Recently Relevant to Health Maintenance Advance Directives For more information, please contact: [phone] * Full Code (Latest Code Status on File) Date Activated Date Inactivated Comments 06/08/2023 10:12 PM 06/15/2023 1:52 PM Question Answer Comments Does the Patient have prefer ences regarding life sustaining measures (these options only apply when the patient has a pulse): No Discussed Code Status With Whom? Not discussed Care Teams Sawmill Or Timber Yard Worker Relationship Specialty Start Date End Date Alfred Lambert APRN, CAR WORKER HELPER [address] [place] [address] PCP - General Internal Medicine 01/17/24
--- OUTSIDE RECORDS SUMMARY | 2024-04-09 19:21 | XMS_ITS | Encounter Summary ---
Author Organization [facility] Address [address] [place] [address] Phone Care Team Providers Care Technical Testing Engineer Name Role Phone Alfred Lambert APRN, CNP Primary Care Provider Reason for Referral * Consult/Test/Treat (Routine) - New Request Specialty Diagnoses / Procedures Referred By Bernardo belle Referred To Contact Physical Medicine and Rehab / PHYSICAL MEDICINE AND REHAB Diagnoses POTS (postural orthostatic tachycardia syndrome) Justina Bowser APRN, CNP [address] [place] [address] [facility] [address] [place] [address] Referral ID Status Reason Start Date Expiration Date V isits Requested Visits Authorized [id number] New Request 01/24/2024 01/23/2025 1 1 Reason for Visit * Reason Comments Follow-up Encounter Details Date Type Department Care Team (Late st Contact Info) Description 01/24/2024 3:00 PM CDT Office [facility] [address] [place] [address] Justina Bowser APRN, CNP [address] [address] POTS (postural orthostatic tachycardia syndrome) (Primary Dx) [...] this encounter Progress Notes * Justina Bowser, BOOKSTORE CLERK, CROWN POUNCER - 01/24/2024 3:00 PM CDT Images from [...] Previous cardiovascular evaluation I personally reviewed today: PENDING SALE TO [facility] TRANSTHORACIC ECHO (TTE) (01/17/2024 13:01) I personally [...] very pleasant patient. Justina Bowser APRN, [facility] [address] 01/24/2024 14:42 CC: Alfred [...] not prevent her from receiving futurecare at [facility]. - Patient acknowledges risks of telemedicine and agrees to follow provider's recommendations. Patient consents to this service: Yes. Patient's Physical Location: Home Provider's Physical Location: Onsite at [facility]/Affiliate Participants in this Telemedicine Visit [...] Total Score: 7 08/22/20 23 11:05 AM ALGOLOGIST PHQ-2 Depression Total Score: 2 08/22/20 23 11:05 AM ALGOLOGIST documented as of this encounter Care Teams Technical Testing Engineer Relationship Specialty Start Date End Date Alfred Lambert APRN, CNP [address] [address] PCP - General Internal Medicine 01/17/24 documented as of this encounter
--- OUTSIDE RECORDS SUMMARY | 2024-04-09 19:21 | XMS_ITS | Encounter Summary ---
Author Organization [place] Address [facility] [place] [address] Care Team Providers Care Burnisher And Bumper Name Role Phone Abbey Bagley PA-C Unavailable Unavailable Abbey Bagley PA-C Primary Care Provider Kelley Ko DO Unavailable Ino Robbins MD Unavailable Encounter Details Date Type Department Care Team (Late st Contact Info) Description 11/23/2022 [facility] Medical Advice [address] [place] [address] Di Sher RN Social History Tobacco Use Types Packs/Day Years Used Date Smoking Tobacco: Some Days Cigarettes Smokeless Tobacco: Never Alcohol Use Standard Drinks/Week Comments Not Currently 0 (1 standard drink = 0.6 oz pur e alcohol) Seldom PHQ-2 Answer Date Recorded PHQ-2 Score 2 11/26/2022 [place] Depression Scale Answer Date Recorded [place] Depression Score 13 03/10/2021 Last EPDS Self [...] Coronavirus/COVID-19? No / Unsure 11/26/2022 1:26 PM SENIOR ENGINEERING SPECIALIST documented as of this encounter Plan of Treatment Not on file documented as of this encounter Visit Diagnoses Not on filedocumented in this encounter Additional Health Concerns Assessment Noted Time PHQ-9 Depression Total Score: 19 021 3:52 PM CDT documented as of this encounter Care Teams Burnisher And Bumper Relationship Specialty Start Date End Date Abbey Bagley PA-C PCP - General Physician Bearing Maker 08/15/20 Abbey Bagley PA-C Physician Bearing Maker 04/11/20 05/02/23 Kelley Diane DO [address] [address] Assigned OBGYN Provider 12/04/22 Ino Robbins MD [address] [place] [address] Assigned OBGYN Provider 01/01/23 documented as of this encounter
--- OUTSIDE RECORDS SUMMARY | 2024-04-09 19:21 | XMS_ITS | Encounter Summary ---
Author Organization [place] Address [facility] [place] [address] Care Team Providers Care Rust Proofer Name Role Phone Abbey Bagley PA-C Unavailable Unavailable Abbey Bagley PA-C Primary Care Provider Kelley Ko DO Unavailable Ino Robbins MD Unavailable Encounter Details Date Type Department Care Team (Late st Contact Info) Description 11/22/2022 [facility] [place] Medical Advice [address] [place] [address] Di Sher RN Social History Tobacco Use Types Packs/Day Years Used Date Smoking Tobacco: Every Day Cigarettes Smokeless Tobacco: Never Alcohol Use Standard Drinks/Week Comments Not Currently 0 (1 standard drink = 0.6 oz pur e alcohol) Seldom PHQ-2 Answer Date Recorded PHQ-2 Score 2 11/26/2022 [place] Depression Scale Answer Date Recorded [place] Depression Score 13 03/10/2021 Last EPDS [...] Coronavirus/COVID-19? No / Unsure 11/17/2022 6:32 PM TRAIN CONTROLLER documented as of this encounter Plan of Treatment Not on file documented as of this encounter Visit Diagnoses Not on filedocumented in this encounter Additional Health Concerns Assessment Noted Time PHQ-9 Depression Total Score: 19 021 3:52 PM CDT documented as of this encounter Care Teams Rust Proofer Relationship Specialty Start Date End Date Abbey Bagley PA-C PCP - General Physician Mold Car Pusher 08/15/20 Abbey Bagley PA-C Physician Mold Car Pusher 04/11/20 05/02/23 Kelley Diane DO [address] [address] Assigned OBGYN Provider 12/04/22 Ino Robbins MD [address] [place] [address] Assigned OBGYN Provider 01/01/23 documented as of this encounter
--- OUTSIDE RECORDS SUMMARY | 2024-04-09 19:21 | XMS_ITS | Referral Summary ---
Author Organization [place] Address [address] [facility] [address] Care Team Providers Care Business Support Professional Name Role Phone Abbey Bagley PA-C Primary [...] Answer Date Recorded PHQ-2 Score 0 04/14/2023 [place] Depression Scale Answer Date Recorded Last EPDS [...] ANTIGEN ANTIBODY COMBO Routine 11/26/2022 2:16 PM SQUAD BOSS Encounter for supervision of other normal in second trimester HEPATITIS C ANTIBODY Routine 11/26/2022 2:16 PM SQUAD BOSS Encounter for supervision of other normal in second trimester CHLAMYDIA TRACHOMATIS PCR Routine 11/26/2022 1:42 PM SQUAD BOSS Screen for STD (sexually transmitted disease) from Last 3 Months or Most Recently Relevant to Health Maintenance Results * HIV Antigen Antibody Combo (11/26/2022 2:16 PM SQUAD BOSS) HIV Antigen Antibody Combo Nonreactive Nonreactive 11/27/2022 2:46 PM SQUAD BOSS [facility] DO Comment:HIV-1 p24 Ag & HIV-1 /HIV-2 Ab Not Detected Blood BLOOD SPECIMEN / Unknown Venipuncture / Unknown 11/26/2022 2:16 PM SQUAD BOSS 11/26/2022 2:28 PM SQUAD BOSS Kelley Diane DO LAB - BLOOD ORDER [place] [facility]PROT/ENDO [facility]/Prot/Endo [address] [facility], [address] [phone] * Hepatitis C antibody (11/26/2022 2:16 PM SQUAD BOSS) Pathologist [facility] Hepatitis C Antibody Nonreactive Nonreactive 11/27/2022 2:46 PM SQUAD BOSS SPECIALTY CORE/PROT/EN DO Blood BLOOD SPECIMEN / Unknown Venipuncture / Unknown 11/26/2022 2:16 PM SQUAD BOSS 11/26/2022 2:28 PM SQUAD BOSS Narrative SPECIALTY CORE/PROT/ENDO - 11/27/2022 2:46 PM SQUAD BOSS Assay performance characteristics have not been established for newborns, infants, and children. Kelley Diane DO LAB - BLOOD ORDER [place] SPECIALTY CORE/PROT/ENDO Specialty Core/Prot/Endo [address] [facility], [address] [place] [address], [facility] [phone] * CHLAMYDIA TRACHOMATIS PCR (11/26/2022 1:42 PM SQUAD BOSS) Pathologist [facility] Chlamydia trachomatis Negative Negative 11/27/2022 12:55 PM SQUAD BOSS [facility] Comment:A negative result by computer networking instructor adjunct mediated amplification does not preclude the presence of C. trachomatis infection because results are dependent on proper and adequate collection, absence of inhibitors and sufficient rRNA to be detected. Swab CERVIX UTERI STRUCTURE / Unknown Non-blood Collection / Unknown 11/26/2022 1:42 PM SQUAD BOSS 11/26/2022 3:02 PM SQUAD BOSS Kelley Diane DO LAB - MICRO GENER AL ORDERABLES [facility] Inf. Diseases Diag. Lab [address] [facility], [address] [place] [address], [facility] [phone] from Last 3 Months or Most Recently Relevant to Health Maintenance Advance Directives For more information, please contact: [phone] * Full Code (Latest Code Status on [...] aisha nt/ legal decision maker Care Teams Business Support Professional Relationship Specialty Start Date End Date Abbey Bagley PA-C PCP - General Physician Computer Network And Systems Engineer 08/15/20 Ino Robbins MD [address] [place] [address] Assigned OBGYN Provider 01/01/23
--- OUTSIDE RECORDS SUMMARY | 2024-04-09 19:21 | XMS_ITS | Encounter Summary ---
Author Organization [facility] Address [address] [facility] [place] [address] Phone Care Team Providers Care Resident Physician Name Role Phone Alfred Lambert APRN, CNP Primary Care Provider Reason for Visit * Prior Authorization (Routine) - Closed Specialty Diagnoses / Procedures Referred By Contac t Referred To Contact CARDIOLOGY ECHO LAB Diagnoses POTS (postural orthostatic tachycardia syndrome) f/u POTS (postural orthostatic tachycardia syndrome) [G90.A] Procedures OK ECHO TTHRC R-T 2D W/WOM-MODE COMPL SPEC&COLR D Echo Lab [address] [place] [address] Referral ID Status Reason Start Date Expiration Date Visits Re quested Visits Authorized [id number] Closed 1 1 Encounter Details Date Type Department Care Team (Latest Contact Info) Description 01/17/2024 12:05 PM CDT - 01/17/2024 11:59 PM CDT Hospital Encounter [facility] Echo Lab [address] [facility] [address] [place], [place] [address] Shahbaz Urias MD [address] [place] [address] Discharge Disposition: Discharged to home [...] 67.24 Inches RICHIE D Patient Number ?? [id number] ?Weight ? 197 Pounds Date of ?2000 ? BSA ?2.01 m^2 Age ?23 ? Tape Number Gender ? Female ? Study Date ? 01/17/2024 12:20 PM Butadiene Convertor Operator ?PC ? Ordering Provider ??NINI Madrigal Referring ?NINI CORONA ??Interpreting ? Iain Tyler MD Physician ?A ?Physician ?[id number] Type of Study: TTE procedure: 2D echocardiogram, [...] Height 67.24 Inches RICHIE D Patient Number [id number] Weight 197 Pounds Date of 2000 BSA 2.01 m^2 Age 23 Tape Number Gender Female Study Date 01/17/2024 12:20 PM Butadiene Convertor Operator PC Ordering Provider NINI Madrigal Referring NINI CORONA Interpreting Iain Tyler MD Physician A Physician [id number] Type of Study: TTE procedure: 2D echocardiogram, [...] True True True True Shahbaz Urias MD [facility] documented in this encounter Visit Diagnoses Diagnosis POTS (postural orthostatic tachycardia syndrome) Tachycardia, unspecified documented in this encounter Additional Health Concerns Assessment Noted Time PHQ-9 Depression Total Score: 7 08/22/20 11:05 AM DRILLING FIELD OPERATOR PHQ-2 Depression Total Score: 2 08/22/20 11:05 AM DRILLING FIELD OPERATOR documented as of this encounter Care Teams Resident Physician Relationship Specialty Start Date End Date Alfred Lambert, WAREHOUSE MANAGER, CREDIT RATING CHECKER [address] [place] [address] PCP - General Internal Medicine 01/17/24 documented as of this encounter
--- OUTSIDE RECORDS SUMMARY | 2024-04-09 19:22 | XMS_ITS | Encounter Summary ---
Author Organization [place] Address [address] [facility] [place] [address] Care Team Providers Care Predatory Animal Trapper Name Role Phone Abbey Bagley PA-C Unavailable Unavailable Abbey Bagley PA-C Primary Care Provider Unava ilable Ino Robbins MD Unavailable Azul Gilman DO Unavailable [phone] Kelley Diane DO Unavailable Ino Robbins MD Unavailable [phone] Encounter Details Date Type Department Care Team (Late st Contact Info) Description 04/07/2021 MyC Medical Advice [facility] Women's [facility] [address] [place] [phone] Ino Robbins MD [address] [place] [address] Social History Tobacco Use Types Packs/Day Years Used Date Smoking Tobacco: Every Day Cigarettes Smokeless Tobacco: Never Alcohol Use Standard Drinks/Week Comments Not Currently 0 (1 standard drink = 0.6 oz pur e alcohol) Seldom PHQ-2 Answer Date Recorded PHQ-2 Score 6 02/19/2021 [place] Depression Scale Answer Date Recorded [place] Depression Score 13 03/10/2021 Last EPDS Self [...] documented as of this encounter Care Teams Predatory Animal Trapper Relationship Specialty Start Date End Date Abbey Bagley PA-C PCP - General Physician Accounting Generalist 08/15/20 Abbey Bagley PA-C Physician Accounting Generalist 04/11/20 05/02/23 Ino Robbins MD [address] [place] [address] Assigned OBGYN Provider 03/08/21 Azul Gilman DO [address] [place] [address] Assigned Heart and Vascular Provider 03/08/21 09/10/22 Kelley Diane DO [address] [place] [address] Assigned OBGYN Provider 12/04/22 Ino Robbins MD [address] [place] [address] Assigned OBGYN Provider 01/01/23 documented as of this encounter
--- OUTSIDE RECORDS SUMMARY | 2024-04-09 19:22 | XMS_ITS | Encounter Summary ---
Author Organization [place] Address [address] [place] [address] Care Team Providers Care Ring Sewer Name Role Phone Abbey Bagley PA-C Unavailable Unavailable Abbey Bagley PA-C Primary Care Provider Unava ilable Ino Robbins MD Unavailable [phone] Azul Gilman DO Unavailable [phone] Kelley Diane DO Unavailable [phone] Ino Robbins MD Unavailable Reason for Visit * Reason Onset Date Comments Refill Request 04/02/2021 Encounter Details Date Type Department Care Team (Late st Contact Info) Description 04/02/2021 MyC Refill Initial Department Abbey Bagley [facility]-C [facility] Refill Request Social History Tobacco Use Types Packs/Day Years Used Date Smoking Tobacco: Every Day Cigarettes Smokeless Tobacco: Never Alcohol Use Standard Drinks/Week Comments Not Currently 0 (1 standard drink = 0.6 oz pur e alcohol) Seldom PHQ-2 Answer Date Recorded PHQ-2 Score 6 02/19/2021 [place] Depression Scale Answer Date Recorded [place] Depression Score 13 03/10/2021 Last EPDS Self [...] documented as of this encounter Care Teams Ring Sewer Relationship Specialty Start Date End Date Abbey Bagley PA-C PCP - General Physician Dopeman 08/15/20 Abbey Bagley PA-C Physician Dopeman 04/11/20 05/02/23 Ino Robbins MD [address] [place] [address] Assigned OBGYN Provider 03/08/21 Azul Gilman DO [address] [place] [address] Assigned Heart and Vascular Provider 03/08/21 09/10/22 Kelley Diane DO [address] [facility] [address] [place] [address] Assigned OBGYN Provider 12/04/22 Ino Robbins MD [address] [place] [address] Assigned OBGYN Provider 01/01/23 documented as of this encounter
--- OUTSIDE RECORDS SUMMARY | 2024-04-09 19:22 | XMS_ITS | Clinical Summary ---
Author Organization [facility] Address [place], [place] [address] Care Team Providers Care Manager Card Name Role Phone Staff, Other Clinical Primary [...] Department Care Team Description 03/01/2024 Lab Requisition [facility] [phone] Comfort Platt, AUTOMOBILE UPHOLSTERER APPRENTICE from Last 3 Months Immunizations Name Administration Dates Next Due COVID-19 vaccine ([employer]-Bio NTech 30mcg/0.3mL) [place] KRAMER 2021 DTaP 05/23/2007, 7,08/27/2004,08/27,2002,2002 [id number] (Pediarix) 07/16/2004,07/16/2004 HIB PRP-OMP (PedvaxHIB) 07/16/2004 HIB [...] Used Date Smoking Tobacco: Former Cigarettes 0.3 5.5 S tarted: 2018 Smokeless Tobacco: Former Tobacco [...] Austin Ledezma MD Complications: Intolera nce Delivery Location:[facility] ( LABOR AND DELIVERY) 2022 Term 39w [...] - Increase reliability General Yes Praful Orozco, SITE PROMOTION AGENT, RAILWAY PATROL OFFICER Note: Goal identified during: Initial Screening Status: [...] follow-up in two weeks to review her [facility] goals and get a status update [...] GOLD PLUS Routine 02/29/2024 4:15 PM CDT PRODUCTION ASSISTANT THIN PREP PAP SCREEN IMAGED Routine 07/01/2023 3:00 PM CDT GC CHLAMYDIA TRACH PROBE Routine 09/21/2022 1:00 PM COMPUTER EDUCATION PROFESSOR Cramping affecting , antepartum ANTI HIV 1/2 Routine 09/11/2020 8:23 AM COMPUTER EDUCATION PROFESSOR Encounter for supervision of normal first in first trimester ANTI HCV Routine 09/11/2020 8:23 AM COMPUTER EDUCATION PROFESSOR Encounter for supervision of normal first in first trimester from Last 3 Months or Most Recently Relevant to Health Maintenance Results * QFT MITOGEN PERFORMABLE (02/29/2024 4:15 PM CDT) MITOGEN 10.00 IU/mL 03/02/2024 12:58 PM CDT [facility] Blood BLOOD SPECIMEN / Unknown Client Collect / Unknown 02/29/2024 4:15 PM CDT 03/01/2024 9:47 PM CDT Comfort Platt NP CHEMISTRY Performing Organization Address City/[facility] [[email or web address]] Co de Phone Number [facility] [address] [place] [address], [place] * QFT TB2 PERFORMABLE (02/29/2024 4:15 PM CDT) TB2 0.02 IU/mL 03/02/2024 11:32 AM CDT [facility] Blood BLOOD SPECIMEN / Unknown Client Collect / Unknown 02/29/2024 4:15 PM CDT 03/01/2024 9:47 PM CDT Comfort Platt NP CHEMISTRY Performing Organization Address [facility] [[email or web address]] Co de Phone Number [facility] [address] [place] [address], [place] * QFT TB1 PERFORMABLE (02/29/2024 4:15 PM CDT) TB1 0.00 IU/mL 03/02/2024 11:33 AM CDT [facility] Blood BLOOD SPECIMEN / Unknown Client Collect / Unknown 02/29/2024 4:15 PM CDT 03/01/2024 9:47 PM CDT Comfort Paltt NP CHEMISTRY Performing Organization Address [facility] [[email or web address]] Co de Phone Number [facility] [address] [place] [address], [place] * QUANTIFERON TB GOLD PLUS (02/29/2024 4:15 PM CDT) QFTP NIL 0.00 03/02/2024 2:53 PM CDT [facility] TB1 0.00 IU/mL 03/02/2024 2:53 PM CDT [facility] TB2 0.02 IU/mL 03/02/2024 2:53 PM CDT [facility] MITOGEN 10.00 IU/mL 03/02/2024 2:53 PM CDT [facility] QFTP TB AG1 - NIL 0.00 024 2:53 PM CDT [facility] TB1-NIL % OF NIL 03/02/20 2:53 PM CDT [facility] Comment:Unable to calculate QFTP TB AG2 - NIL 0.02 024 2:53 PM CDT [facility] TB2-NIL % OF NIL 03/02/20 2:53 PM CDT [facility] Comment:Unable to calculate QFTP MITOGEN - NIL 10.00 2023 2:53 PM CDT [facility] QFTP QUANTIFERON INTERPRETATION Negative Negative 03/02/2024 2:53 PM CDT [facility] Blood BLOOD SPECIMEN / Unknown Client Collect / Unknown 02/29/2024 4:15 PM CDT 03/01/2024 9:47 PM CDT [facility] - 03/02/2024 2:53 PM CDT [...] old. - women Comfort Platt NP CHEMISTRY [facility] [address] [place] [address], * PRODUCTION ASSISTANT THIN PREP PAP SCREEN IMAGED (07/01/2023 3:00 PM CDT) Case Report Gynecologic Cytology Report ? Case: [id number] ? Authorizing Provider: ??Denise Fry, AUTOMOBILE UPHOLSTERER APPRENTICE ?? Collected: ? 07/01/2023 1500 ? Ordering Location: ? [facility] ?Received: ?07/05/2023 1303 ? First Screen: ?Ino Enriquez ? Specimen: ?PRODUCTION ASSISTANT ThinPrep Vial Screening, Cervical ? 07/12/2023 9:32 AM CDT [facility] INTERPRETATION/ RESULT NEGATIVE FOR INTRAEPITHELIAL LESION OR MALIGNANCY (NIL) (none) 07/12/2023 9:32 AM CDT [facility] IMEN ADEQUACY Satisfactory for evaluation Endocervical component present Scant cellularity 07/12/2023 9:32 AM CDT [facility] HPV REQUEST HPV not requested 10/03/ 2023 9:32 AM CDT [facility] Date of LMP 06/15/2023 07/12/2023 9:32 AM CDT [facility] Last Pap Result First Pap/Unknown 9:32 AM CDT [facility] Abnormal Pap or [place] Bx in last 5 years No 07/12/2023 9:32 AM CDT [facility] Menstrual Status Regular Periods 07/12/2023 9:32 AM CDT [facility] [place] Bx Done Today No 07/12/2023 9:32 AM CDT [facility] Additional Information 07/12/2023 9:32 AM CDT [facility] Comment: Interpreted at [facility] - [address] [place] [id number] Automated Review Successful 07/12/2023 9:32 AM CDT [facility] Comment:Specimen processed s uccessfully by automated softlines supervisor device, ThinPrep Imaging System, [employer] Note The pap test is a [...] and malignant lesions. 07/12/2023 9:32 AM CDT [facility] Other (Cervical) 07/01/2023 3:00 PM CDT 07/05/2023 1:03 PM CDT Denise Fry NP PATHOLOGY/[facility] [address] [place] [address], * GC CHLAMYDIA TRACH PROBE (09/21/2022 1:00 PM COMPUTER EDUCATION PROFESSOR) CHLAMYDIA PROBE Negative 5:24 PM COMPUTER EDUCATION PROFESSOR [facility] N GONORRHOEAE PROBE Negative 09/22/2022 5:24 PM COMPUTER EDUCATION PROFESSOR [facility] Other VAGINAL SWAB / Unknown Non-Blood / Unknown 09/21/2022 1:00 PM COMPUTER EDUCATION PROFESSOR 09/21/2022 1:49 PM COMPUTER EDUCATION PROFESSOR Deborah Senior NP MICROBIOLOGY Performing Organization Address City/[facility]/ZIP Co de Phone Number [facility] [address] [place] [address], [place] * ANTI HCV (09/11/2020 8:23 AM COMPUTER EDUCATION PROFESSOR) HEPATITIS C ANTIBODY Non-React kamran Non-React kamran 09/11/2020 12:51 PM COMPUTER EDUCATION PROFESSOR [facility] Comment:Antibodies to HCV no t detected; does not exclude the possibility of exposure to HCV. Blood BLOOD SPECIMEN / Unknown Butterfly / Unknown 09/11/2020 8:23 AM COMPUTER EDUCATION PROFESSOR 09/11/2020 8:24 AM COMPUTER EDUCATION PROFESSOR Kira Turner DO SEND OUTS Performing Organization Address [facility] [[email or web address]] Co de Phone Number [facility] [address] [place] [address], [place] * ANTI HIV 1/2 (09/11/2020 8:23 AM COMPUTER EDUCATION PROFESSOR) Pathologist [facility] HIV-1/HIV-2 ANTIBODY Non-Reacti ve Non-Reacti ve 09/11/2020 12:38 PM COMPUTER EDUCATION PROFESSOR [facility] Comment:HIV-1 p24 and HIV-1/ HIV-2 Ab not detected. Blood BLOOD SPECIMEN / Unknown Butterfly / Unknown 09/11/2020 8:23 AM COMPUTER EDUCATION PROFESSOR 09/11/2020 8:24 AM COMPUTER EDUCATION PROFESSOR Kira Turner DO SEND OUTS [facility] [address] [place] [address], [place] from Last 3 Months or Most [...] 3:46 PM 08/18/2016 1:40 PM Care Teams Manager Card Relationship Specialty Start Date End Date Staff, Other Clinical . PCP - General 06/05/23
== END 2024-04-09 19:20 | disposition home or self-care (01) ==
LOC: NFLDUCREF 19:19
PROVIDERS: PCP Nurse Practitioner Family; Visit Provider Nurse Practitioner
DX: R21 Rash and other nonspecific skin eruption (principal)
CPT/HCPCS: 86618

== ENCOUNTER 2024-04-24 15:58 | Outpatient (CLI) | payer MEDICAID, SELFPAY ==
--- OUTSIDE RECORDS SUMMARY | 2024-04-24 16:01 | XMS_ITS | Encounter Summary ---
Author Organization [place] Address [address] [facility] [place] [address] Care Team Providers Care Telecommunications Project Manager Name Role Phone Abbey Bagley PA-C Unavailable Unavailable Abbey Bagley PA-C Primary Care Provider Kelley Ko DO Unavailable Ino Robbins MD Unavailable [phone] Encounter Details Date Type Department Care Team (Late st Contact Info) Description 12/07/2022 [facility] [address] [place] [phone] Diana Rainey, RN Social History Tobacco Use Types Packs/Day Years Used Date Smoking Tobacco: Some Days Cigarettes Smokeless Tobacco: Never Alcohol Use Standard Drinks/Week Comments Not Currently 0 (1 standard drink = 0.6 oz pur e alcohol) Seldom PHQ-2 Answer Date Recorded PHQ-2 Score 2 11/26/2022 [place] Depression Scale Answer Date Recorded [place] Depression Score 13 03/10/2021 Last EPDS Self [...] Coronavirus/COVID-19? No / Unsure 11/26/2022 1:26 PM THRESHING OPERATOR documented as of this encounter Plan of Treatment Not on file documented as of this encounter Visit Diagnoses Not on filedocumented in this encounter Additional Health Concerns Assessment Noted Time PHQ-9 Depression Total Score: 19 021 3:52 PM CDT documented as of this encounter Care Teams Telecommunications Project Manager Relationship Specialty Start Date End Date Abbey Bagley PA-C PCP - General Physician Screw Machine Setter 08/15/20 Abbey Bagley PA-C Physician Screw Machine Setter 04/11/20 05/02/23 Kelley Diane DO [address] [address] Assigned OBGYN Provider 12/04/22 Ino Robbins MD [address] [place] [address] Assigned OBGYN Provider 01/01/23 documented as of this encounter
--- OUTSIDE RECORDS SUMMARY | 2024-04-24 16:01 | XMS_ITS | Clinical Summary ---
Author Organization [place] Address [address] [facility] [place] [address] Care Team Providers Care Outside Sales Account Executive Name Role Phone Abbey Bagley PA-C Primary [...] Answer Date Recorded PHQ-2 Score 0 04/14/2023 [place] Depression Scale Answer Date Recorded Last EPDS [...] ANTIGEN ANTIBODY COMBO Routine 11/26/2022 2:16 PM COMMUNITY RELATIONS REPRESENTATIVE Encounter for supervision of other normal in second trimester HEPATITIS C ANTIBODY Routine 11/26/2022 2:16 PM COMMUNITY RELATIONS REPRESENTATIVE Encounter for supervision of other normal in second trimester CHLAMYDIA TRACHOMATIS PCR Routine 11/26/2022 1:42 PM COMMUNITY RELATIONS REPRESENTATIVE Screen for STD (sexually transmitted disease) from Last 3 Months or Most Recently Relevant to Health Maintenance Results * HIV Antigen Antibody Combo (11/26/2022 2:16 PM COMMUNITY RELATIONS REPRESENTATIVE) HIV Antigen Antibody Combo Nonreactive Nonreactive 11/27/2022 2:46 PM COMMUNITY RELATIONS REPRESENTATIVE [facility] DO Comment:HIV-1 p24 Ag & HIV-1 /HIV-2 Ab Not Detected Blood BLOOD SPECIMEN / Unknown Venipuncture / Unknown 11/26/2022 2:16 PM COMMUNITY RELATIONS REPRESENTATIVE 11/26/2022 2:28 PM COMMUNITY RELATIONS REPRESENTATIVE Kelley Diane DO LAB - BLOOD ORDER [facility] [facility]PROT/ENDO [facility]Prot/Endo [address] [facility] [address], [address] [phone] * Hepatitis C antibody (11/26/2022 2:16 PM COMMUNITY RELATIONS REPRESENTATIVE) Hepatitis C Antibody Nonreactive Nonreactive 11/27/2022 2:46 PM COMMUNITY RELATIONS REPRESENTATIVE [facility] DO Blood BLOOD SPECIMEN / Unknown Venipuncture / Unknown 11/26/2022 2:16 PM COMMUNITY RELATIONS REPRESENTATIVE 11/26/2022 2:28 PM COMMUNITY RELATIONS REPRESENTATIVE Narrative SPECIALTY CORE/PROT/ENDO - 11/27/2022 2:46 PM COMMUNITY RELATIONS REPRESENTATIVE Assay performance characteristics have not been established for newborns, infants, and children. Kelley Diane DO LAB - BLOOD ORDER [place] [facility]/PROT/ENDO Specialty Core/Prot/Endo [address] [facility], [address] [place], [place] [address] [phone] * CHLAMYDIA TRACHOMATIS PCR (11/26/2022 1:42 PM COMMUNITY RELATIONS REPRESENTATIVE) Chlamydia trachomatis Negative Negative 11/27/2022 12:55 PM COMMUNITY RELATIONS REPRESENTATIVE [facility] Comment:A negative result by treatment plant mechanic mediated amplification does not preclude the presence of C. trachomatis infection because results are dependent on proper and adequate collection, absence of inhibitors and sufficient rRNA to be detected. Swab CERVIX UTERI STRUCTURE / Unknown Non-blood Collection / Unknown 11/26/2022 1:42 PM COMMUNITY RELATIONS REPRESENTATIVE 11/26/2022 3:02 PM COMMUNITY RELATIONS REPRESENTATIVE Kelley Diane DO LAB - MICRO GENER AL ORDERABLES [facility] Inf. Diseases Diag. Lab [address] [facility], [address] [place] [address], [facility] [phone] from Last 3 Months or Most Recently Relevant to Health Maintenance Advance Directives For more information, please contact: [phone] * Full Code (Latest Code Status on [...] aisha nt/ legal decision maker Care Teams Outside Sales Account Executive Relationship Specialty Start Date End Date Abbey Bagley PA-C PCP - General Physician [employer] Equipment Operator 08/15/20 Ino Robbins MD [address] [place] [address] Assigned OBGYN Provider 01/01/23
--- OUTSIDE RECORDS SUMMARY | 2024-04-24 16:01 | XMS_ITS | Referral Summary ---
Author Organization [facility] Address [address] [place] [id number] Phone Care Team Providers Care Climatologist Name Role Phone Alfred Lambert APRN, CNP Primary Care Provider [phone] Source Comments Babytree is fully rolled out on Epiclist. Last update 03/14/09.[employer] Encounters Date Type Department Care Team Description 01/24/2024 3:00 PM CDT [facility] Cardiology Clinic [address] [phone] Justina Bowser APRN, CNP POTS (postural orthostatic [...] (major depressive disord er), recurrent episode, moderate ([facility]) 08/19/2023 Suicidal ideation 06/09/2023 Asthma ([facility]) 06/08/2023 06/08/2023 Essential hypertension in patient ( S) 06/08/2023 06/08/2023 Hypertension 06/08/2023 06/08/2023 Iron deficiency anemia 06/08/2023 Anxiety 06/08/2023 06/08/2023 Anxiety disorder, unspecified type 06/08/2023 Bipolar II disorder ([facility]) 05/09/2023 PTSD (post-traumatic stress disorder) 05/09/2023 Eclampsia ([facility]) 05/05/2023 06/08/2023 History of depression 05/05/2023 06/08/2023 Iron deficiency 12/23/2020 06/08/2023 Chronic GERD 01/24/2020 06/08/2023 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 Encounter for screening 02/05/2005 06/08/20 23 Overview: LW Onset: [id number] ; Child and Teen Check Up Needs [...] Comments Blood Pressure 116/79 11/24/2023 1:18 PM DECKER OPERATOR Pulse 104 11/24/2023 1:18 PM DECKER OPERATOR Temperature 36.4 ??C (97.5 ??F) 06/14/2023 9:28 AM CD T Respiratory Rate 18 06/14/2023 9:28 AM CDT Oxygen Saturation 99% 06/14/2023 9:28 AM CDT Inhaled Oxygen Concentration - - Weight 89.4 kg (197 lb) 11/24/2023 1:18 PM DECKER OPERATOR Height 170.8 cm (5' 7.24) 06/08/2023 8:18 PM CD T Body Mass Index 30.63 06/08/2023 8:18 PM CDT Plan of Treatment Not on file Procedures Procedure Name Priority Date/Time Associated Diagnosis Comments PAP TEST Routine 07/01/2023 3:00 PM CDT HIV COMBO Routine 11/26/2022 2:16 PM DECKER OPERATOR URINE CHLAMYDIA AND NEISSERIAE GONORRHOEAE AMPLIFICATION Routine 11/26/2022 1:42 PM DECKER OPERATOR from Last 3 Months or Most Recently Relevant to Health Maintenance Advance Directives For more information, please contact: [phone] * Full Code (Latest Code Status on File) Date Activated Date Inactivated Comments 06/08/2023 10:12 PM 06/15/2023 1:52 PM Question Answer Comments Does the Patient have prefer ences regarding life sustaining measures (these options only apply when the patient has a pulse): No Discussed Code Status With Whom? Not discussed Care Teams Climatologist Relationship Specialty Start Date End Date Alfred Lambert, SLICE PLUG CUTTER OPERATOR, BLOOD BANK CALENDAR CONTROL CLERK [address] [place] [address] PCP - General Internal Medicine 01/17/24
--- OUTSIDE RECORDS SUMMARY | 2024-04-24 16:01 | XMS_ITS | Encounter Summary ---
Author Organization [place] Address [facility] [place] [address] Care Team Providers Care Hog Ribber Name Role Phone Abbey Bagley PA-C Unavailable Unavailable Abbey Bagley PA-C Primary Care Provider Kelley Ko DO Unavailable Ino Robbins MD Unavailable Encounter Details Date Type Department Care Team (Late st Contact Info) Description 11/23/2022 [facility] [place] [address] [place] [address] Di Sher RN Social History Tobacco Use Types Packs/Day Years Used Date Smoking Tobacco: Some Days Cigarettes Smokeless Tobacco: Never Alcohol Use Standard Drinks/Week Comments Not Currently 0 (1 standard drink = 0.6 oz pur e alcohol) Seldom PHQ-2 Answer Date Recorded PHQ-2 Score 2 11/26/2022 [place] Depression Scale Answer Date Recorded [place] Depression Score 13 03/10/2021 Last EPDS Self [...] Coronavirus/COVID-19? No / Unsure 11/26/2022 1:26 PM BODY SHOP MECHANIC documented as of this encounter Plan of Treatment Not on file documented as of this encounter Visit Diagnoses Not on filedocumented in this encounter Additional Health Concerns Assessment Noted Time PHQ-9 Depression Total Score: 19 021 3:52 PM CDT documented as of this encounter Care Teams Hog Ribber Relationship Specialty Start Date End Date Abbey Bagley PA-C PCP - General Physician Human Resources Temp 08/15/20 Abbey Bagley PA-C Physician Human Resources Temp 04/11/20 05/02/23 Kelley Diane DO [address] [address] Assigned OBGYN Provider 12/04/22 Ino Robbins MD [address] [place] [address] Assigned OBGYN Provider 01/01/23 documented as of this encounter
--- OUTSIDE RECORDS SUMMARY | 2024-04-24 16:01 | XMS_ITS | Encounter Summary ---
Author Organization [facility] Address [address] [facility] [place] [address] Phone Care Team Providers Care County Agricultural Agent Name Role Phone Alfred Lambert APRN, CNP Primary Care Provider Reason for Visit * Prior Authorization (Routine) - Closed Specialty Diagnoses / Procedures Referred By Contac t Referred To Contact CARDIOLOGY ECHO LAB Diagnoses POTS (postural orthostatic tachycardia syndrome) f/u POTS (postural orthostatic tachycardia syndrome) [G90.A] Procedures PA ECHO TTHRC R-T 2D W/WOM-MODE COMPL SPEC&COLR D Echo Lab [address] [place] [address] Referral ID Status Reason Start Date Expiration Date Visits Re quested Visits Authorized [id number] Closed 1 1 Encounter Details Date Type Department Care Team (Latest Contact Info) Description 01/17/2024 12:05 PM CDT - 01/17/2024 11:59 PM CDT Hospital Encounter [facility] Echo Lab [address] [facility] [address] [place], [place] [id number] Shahbaz Urias MD [address] [place] [address] Discharge Disposition: Discharged to home [...] 67.24 Inches RICHIE D Patient Number ?? [id number] ?Weight ? 197 Pounds Date of ?2000 ? BSA ?2.01 m^2 Age ?23 ? Tape Number Gender ? Female ? Study Date ? 01/17/2024 12:20 PM Precipitator Supervisor ?PC ? Ordering Provider ??NIIN Madrigal Referring ?NINI CORONA ??Interpreting ? Iain Tyler MD Physician ?A ?Physician ?[id number] Type of Study: TTE procedure: 2D echocardiogram, [...] Height 67.24 Inches RICHIE D Patient Number [id number] Weight 197 Pounds Date of 2000 BSA 2.01 m^2 Age 23 Tape Number Gender Female Study Date 01/17/2024 12:20 PM Precipitator Supervisor PC Ordering Provider NINI Madrigal Referring NINI CORONA Interpreting Iain Tyler MD Physician A Physician [id number] Type of Study: TTE procedure: 2D echocardiogram, [...] True True Shahbaz Urias MD [facility] documented in this encounter Visit Diagnoses Diagnosis POTS (postural orthostatic tachycardia syndrome) Tachycardia, unspecified documented in this encounter Additional Health Concerns Assessment Noted Time PHQ-9 Depression Total Score: 7 08/22/20 11:05 AM REAL ESTATE ASSOCIATE PHQ-2 Depression Total Score: 2 08/22/20 11:05 AM REAL ESTATE ASSOCIATE documented as of this encounter Care Teams County Agricultural Agent Relationship Specialty Start Date End Date Alfred Lambert APRN, INVESTOR RELATIONS COORDINATOR [address] [place] [id number] PCP - General Internal Medicine 01/17/24 documented as of this encounter
--- OUTSIDE RECORDS SUMMARY | 2024-04-24 16:01 | XMS_ITS | Encounter Summary ---
Author Organization [facility] Address [address] [place] [phone] Phone Care Team Providers Care Cash Applications Specialist Name Role Phone Alfred Lambert APRN, CNP Primary Care Provider Reason for Referral * Consult/Test/Treat (Routine) - New Request Specialty Diagnoses / Procedures Referred By Bernardo belle Referred To Contact Physical Medicine and Rehab / PHYSICAL MEDICINE AND REHAB Diagnoses POTS (postural orthostatic tachycardia syndrome) Justina Bowser APRN, CNP [address] [address] [facility] [address] [place] [address] Referral ID Status Reason Start Date Expiration Date V isits Requested Visits Authorized [id number] New Request 01/24/2024 01/23/2025 1 1 Reason for Visit * Reason Comments Follow-up Encounter Details Date Type Department Care Team (Late st Contact Info) Description 01/24/2024 3:00 PM CDT [facility] Cardiology Clinic [address] [place] [id number] Justina Bowser APRN, CNP [address] [address] POTS (postural orthostatic tachycardia syndrome) (Primary Dx) [...] this encounter Progress Notes * Justina Bowser, GENERAL SURGEON, SAT INSTRUCTOR - 01/24/2024 3:00 PM CDT Images from [...] Previous cardiovascular evaluation I personally reviewed today: [facility] TRANSTHORACIC ECHO (TTE) (01/17/2024 13:01) I personally [...] very pleasant patient. Justina Bowser APRN, [facility] [address] 01/24/2024 14:42 CC: [...] not prevent her from receiving futurecare at [facility]. - Patient acknowledges risks of telemedicine and agrees to follow provider's recommendations. Patient consents to this service: Yes. Patient's Physical Location: Home Provider's Physical Location: Onsite at [facility] Participants in this Telemedicine Visit [...] Total Score: 7 08/22/20 23 11:05 AM ETYMOLOGY PROFESSOR PHQ-2 Depression Total Score: 2 08/22/20 23 11:05 AM ETYMOLOGY PROFESSOR documented as of this encounter Care Teams Cash Applications Specialist Relationship Specialty Start Date End Date Alfred Lambert APRN, CNP [address] [address] PCP - General Internal Medicine 01/17/24 documented as of this encounter
--- OUTSIDE RECORDS SUMMARY | 2024-04-24 16:01 | XMS_ITS | Encounter Summary ---
Author Organization [facility] Address [address] [place] [address] Phone Care Team Providers Care Slot Machine Department Floorperson Name Role Phone Alfred Lambert APRN, CNP [...] Total Score: 7 08/22/20 23 11:05 AM CONSTRUCTION DIRECTOR PHQ-2 Depression Total Score: 2 08/22/20 23 11:05 AM CONSTRUCTION DIRECTOR documented as of this encounter Care Teams Slot Machine Department Floorperson Relationship Specialty Start Date End Date Alfred Lambert APRN, CNP [address] [place] [address] PCP - General Internal Medicine 01/17/24 documented as of this encounter
--- OUTSIDE RECORDS SUMMARY | 2024-04-24 16:01 | XMS_ITS | Encounter Summary ---
Author Organization [place] Address [facility] [place] [address] Care Team Providers Care Bag Filler Name Role Phone Abbey Bagley PA-C Unavailable Unavailable Abbey Bagley PA-C Primary Care Provider Kelley Ko DO Unavailable Ino Robbins MD Unavailable Encounter Details Date Type Department Care Team (Late st Contact Info) Description 11/22/2022 [facility] Medical Advice [address] [place] [address] Di Sher RN Social History Tobacco Use Types Packs/Day Years Used Date Smoking Tobacco: Every Day Cigarettes Smokeless Tobacco: Never Alcohol Use Standard Drinks/Week Comments Not Currently 0 (1 standard drink = 0.6 oz pur e alcohol) Seldom PHQ-2 Answer Date Recorded PHQ-2 Score 2 11/26/2022 [place] Depression Scale Answer Date Recorded [place] Depression Score 13 03/10/2021 Last EPDS Self [...] Coronavirus/COVID-19? No / Unsure 11/17/2022 6:32 PM FINANCIAL SERVICES AGENT documented as of this encounter Plan of Treatment Not on file documented as of this encounter Visit Diagnoses Not on filedocumented in this encounter Additional Health Concerns Assessment Noted Time PHQ-9 Depression Total Score: 19 021 3:52 PM CDT documented as of this encounter Care Teams Bag Filler Relationship Specialty Start Date End Date Abbey Bagley PA-C PCP - General Physician Manager Telemetry 08/15/20 Abbey Bagley PA-C Physician Manager Telemetry 04/11/20 05/02/23 Kelley Diane DO [address] [address] Assigned OBGYN Provider 12/04/22 Ino Robbins MD [address] [place] [address] Assigned OBGYN Provider 01/01/23 documented as of this encounter
--- OUTSIDE RECORDS SUMMARY | 2024-04-24 16:01 | XMS_ITS | Encounter Summary ---
Author Organization [place] Address [address] [facility] [place] [address] Care Team Providers Care Data Processing Specialist Name Role Phone Abbey Bagley PA-C Unavailable Unavailable Abbey Bagley PA-C Primary Care Provider Unava ilable Ino Robbins MD Unavailable Reason for Visit * Reason Onset Date Comments Care 04/26/2023 Encounter Details Date Type Department Care Team (Late st Contact Info) Description 04/26/2023 [facility] Medical Advice [facility] [address] [place] [phone] Ino Robbins MD [address] [place], [place] [phone] Care Social History Tobacco Use Types Packs/Day Years Used Date Smoking Tobacco: Former Cigarettes Q uit: 03/10/2023 Passive Smoke Exposure: Never Smokeless Tobacco: Never Alcohol Use Standard Drinks/Week Comments Not Currently 0 (1 standard drink = 0.6 oz pur e alcohol) Seldom PHQ-2 Answer Date Recorded PHQ-2 Score 0 04/14/2023 [place] Depression Scale Answer Date Recorded [place] Depression Score 13 03/10/2021 Last EPDS Self [...] documented as of this encounter Care Teams Data Processing Specialist Relationship Specialty Start Date End Date Abbey Bagley PA-C PCP - General Physician Salvationist 08/15/20 Abbey Bagley PA-C Physician Salvationist 04/11/20 05/02/23 Ino Robbins MD [address] [place] [address] Assigned OBGYN Provider 01/01/23 documented as of this encounter
--- OUTSIDE RECORDS SUMMARY | 2024-04-24 16:01 | XMS_ITS | Clinical Summary ---
Author Organization [employer] Address [address] [place] [address] Phone Care Team Providers Care Merchant Mariner Name Role Phone lAfred Lambert APRN, CNP Primary Care Provider Source Comments [employer] is fully rolled out on [employer]. Last update 03/14/09.[employer] Allergies Active Allergy Reactions Criticality Noted Date [...] (major depressive disord er), recurrent episode, moderate ([facility]) 08/19/2023 Suicidal ideation 06/09/2023 Asthma ([facility]) 06/08/2023 06/08/2023 Essential hypertension in patient (HH S) 06/08/2023 06/08/2023 Hypertension 06/08/2023 06/08/2023 Iron deficiency anemia 06/08/2023 Anxiety 06/08/2023 06/08/2023 Anxiety disorder, unspecified type 06/08/2023 Bipolar II disorder (CMS/HHS) 05/09/2023 PTSD (post-traumatic stress disorder) 05/09/2023 Eclampsia ([facility]) 05/05/2023 06/08/2023 History of depression 05/05/2023 06/08/2023 Iron deficiency 12/23/2020 06/08/2023 Chronic GERD 01/24/2020 06/08/2023 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 Encounter for screening 02/05/2005 06/08/20 Overview: LW Onset: [id number] ; Child and Teen Check Up Needs Resolved Problems Problem Noted Date Diagnosed Date Resolved Date Acute encephalopathy 05/07/2023 06/08/2023 023 Encounters Date Type Department Care Team Description 01/24/2024 3:00 PM CDT Telemedicine Clinic [facility] Specialty Center Cardiology Clinic [address] [place] [phone] Justina Bowser APRN, TRANSPLANT NURSE PRACTITIONER POTS (postural orthostatic tachycardia syndrome) (Primary Dx) [...] Comments Blood Pressure 116/79 11/24/2023 1:18 PM RAIL TRANSPORTATION OPERATOR Pulse 104 11/24/2023 1:18 PM RAIL TRANSPORTATION OPERATOR Temperature 36.4 ??C (97.5 ??F) 06/14/2023 9:28 AM CD T Respiratory Rate 18 06/14/2023 9:28 AM CDT Oxygen Saturation 99% 06/14/2023 9:28 AM CDT Inhaled Oxygen Concentration - - Weight 89.4 kg (197 lb) 11/24/2023 1:18 PM RAIL TRANSPORTATION OPERATOR Height 170.8 cm (5' 7.24) 06/08/2023 [...] CDT HIV COMBO Routine 11/26/2022 2:16 PM RAIL TRANSPORTATION OPERATOR URINE CHLAMYDIA AND NEISSERIAE GONORRHOEAE AMPLIFICATION Routine 11/26/2022 1:42 PM RAIL TRANSPORTATION OPERATOR from Last 3 Months or Most Recently Relevant to Health Maintenance Advance Directives For more information, please contact: [phone] * Full Code (Latest Code Status on File) Date Activated Date Inactivated Comments 06/08/2023 10:12 PM 06/15/2023 1:52 PM Question Answer Comments Does the Patient have prefer ences regarding life sustaining measures (these options only apply when the patient has a pulse): No Discussed Code Status With Whom? Not discussed Care Teams Merchant Mariner Relationship Specialty Start Date End Date Alfred Lambert, SOLUTIONS ANALYST, TRANSPLANT NURSE PRACTITIONER [address] [place] [address] PCP - General Internal Medicine 01/17/24
--- OUTSIDE RECORDS SUMMARY | 2024-04-24 16:01 | XMS_ITS | Referral Summary ---
Author Organization [place] Address [address] [facility] [place] [address] Care Team Providers Care Curing Room Worker Name Role Phone Abbey Bagley PA-C [...] Answer Date Recorded PHQ-2 Score 0 04/14/2023 [place] Depression Scale Answer Date Recorded Last EPDS [...] ANTIGEN ANTIBODY COMBO Routine 11/26/2022 2:16 PM PULMONARY PHYSICAL THERAPIST Encounter for supervision of other normal in second trimester HEPATITIS C ANTIBODY Routine 11/26/2022 2:16 PM PULMONARY PHYSICAL THERAPIST Encounter for supervision of other normal in second trimester CHLAMYDIA TRACHOMATIS PCR Routine 11/26/2022 1:42 PM PULMONARY PHYSICAL THERAPIST Screen for STD (sexually transmitted disease) from Last 3 Months or Most Recently Relevant to Health Maintenance Results * HIV Antigen Antibody Combo (11/26/2022 2:16 PM PULMONARY PHYSICAL THERAPIST) HIV Antigen Antibody Combo Nonreactive Nonreactive 11/27/2022 2:46 PM PULMONARY PHYSICAL THERAPIST [facility]/EN DO Comment:HIV-1 p24 Ag & HIV-1 /HIV-2 Ab Not Detected Blood BLOOD SPECIMEN / Unknown Venipuncture / Unknown 11/26/2022 2:16 PM PULMONARY PHYSICAL THERAPIST 11/26/2022 2:28 PM PULMONARY PHYSICAL THERAPIST Kelley Diane DO LAB - BLOOD ORDER [place] [facility]/PROT/ENDO [facility] Special[facility] Core/Prot/Endo [address] [facility], [address] [phone] * Hepatitis C antibody (11/26/2022 2:16 PM PULMONARY PHYSICAL THERAPIST) Pathologist [facility] Hepatitis C Antibody Nonreactive Nonreactive 11/27/2022 2:46 PM PULMONARY PHYSICAL THERAPIST SPECIALTY CORE/PROT/EN DO Blood BLOOD SPECIMEN / Unknown Venipuncture / Unknown 11/26/2022 2:16 PM PULMONARY PHYSICAL THERAPIST 11/26/2022 2:28 PM PULMONARY PHYSICAL THERAPIST Narrative SPECIALTY CORE/PROT/ENDO - 11/27/2022 2:46 PM PULMONARY PHYSICAL THERAPIST Assay performance characteristics have not been established for newborns, infants, and children. Kelley Diane DO LAB - BLOOD ORDER [place] SPECIALTY CORE/PROT/ENDO Specialty Core/Prot/Endo [address] [facility], [address] [place] [address], [facility] [phone] * CHLAMYDIA TRACHOMATIS PCR (11/26/2022 1:42 PM PULMONARY PHYSICAL THERAPIST) Pathologist [facility] Chlamydia trachomatis Negative Negative 11/27/2022 12:55 PM PULMONARY PHYSICAL THERAPIST [facility] Comment:A negative result by corporate travel consultant mediated amplification does not preclude the presence of C. trachomatis infection because results are dependent on proper and adequate collection, absence of inhibitors and sufficient rRNA to be detected. Swab CERVIX UTERI STRUCTURE / Unknown Non-blood Collection / Unknown 11/26/2022 1:42 PM PULMONARY PHYSICAL THERAPIST 11/26/2022 3:02 PM PULMONARY PHYSICAL THERAPIST Kelley Diane DO LAB - MICRO GENER AL ORDERABLES [facility] Inf. Diseases Diag. Lab [address] [facility], [address] [place] [address], [facility] [phone] from Last 3 Months or Most Recently Relevant to Health Maintenance Advance Directives For more information, please contact: [phone] * Full Code (Latest Code Status on [...] aisha nt/ legal decision maker Care Teams Curing Room Worker Relationship Specialty Start Date End Date Abbey Bagley PA-C PCP - General Physician Manufacturing Maintenance Mechanic 08/15/20 Ino Robbins MD [address] [place] [address] Assigned OBGYN Provider 01/01/23
--- OUTSIDE RECORDS SUMMARY | 2024-04-24 16:02 | XMS_ITS | Clinical Summary ---
Author Organization [employer] [facility] [employer] Address [place], [place] [address] Care Team Providers Care Laborer Stores Name Role Phone Staff, Other Clinical Primary [...] Department Care Team Description 03/01/2024 Lab Requisition [facility] [phone] Comfort Platt, ADMITTED ATTORNEYS from Last 3 Months Immunizations Name Administration Dates Next Due COVID-19 vaccine (CompleteSet-Bio NTech 30mcg/0.3mL) [place] 2021 DTaP 05/23/2007, 7,08/27/2004,08/27,2002,2002 [id number] (Pediarix) 07/16/2004,07/16/2004 HIB PRP-OMP (PedvaxHIB) 07/16/2004 HIB [...] Austin Ledezma MD Complications: Intolera nce Delivery Location:[facility] ( LABOR AND DELIVERY) 2022 Term 39w [...] - Increase reliability General Yes Praful Orozco, SENIOR WEB APPLICATIONS DEVELOPER, TOPPER PACKER Note: Goal identified during: Initial Screening Status: [...] weeks to review her [facility] goals and get a status update on [...] GOLD PLUS Routine 02/29/2024 4:15 PM CDT PRACTICE OR STUDENT TEACHER THIN PREP PAP SCREEN IMAGED Routine 07/01/2023 3:00 PM CDT GC CHLAMYDIA TRACH PROBE Routine 09/21/2022 1:00 PM SALES EXHIBITOR Cramping affecting , antepartum ANTI HIV 1/2 Routine 09/11/2020 8:23 AM SALES EXHIBITOR Encounter for supervision of normal first in first trimester ANTI HCV Routine 09/11/2020 8:23 AM SALES EXHIBITOR Encounter for supervision of normal first in first trimester from Last 3 Months or Most Recently Relevant to Health Maintenance Results * QFT MITOGEN PERFORMABLE (02/29/2024 4:15 PM CDT) MITOGEN 10.00 IU/mL 03/02/2024 12:58 PM CDT [facility] Blood BLOOD SPECIMEN / Unknown Client Collect / Unknown 02/29/2024 4:15 PM CDT 03/01/2024 9:47 PM CDT Comfort Platt NP CHEMISTRY Performing Organization Address City/[facility] Co de Phone Number [facility] [address] [place] [address], [place] * QFT TB2 PERFORMABLE (02/29/2024 4:15 PM CDT) TB2 0.02 IU/mL 03/02/2024 11:32 AM CDT [facility] Blood BLOOD SPECIMEN / Unknown Client Collect / Unknown 02/29/2024 4:15 PM CDT 03/01/2024 9:47 PM CDT Comfort Platt NP CHEMISTRY Performing Organization Address [facility] Co de Phone Number [facility] [address] [place] [address], [place] * QFT TB1 PERFORMABLE (02/29/2024 4:15 PM CDT) TB1 0.00 IU/mL 03/02/2024 11:33 AM CDT [facility] Blood BLOOD SPECIMEN / Unknown Client Collect / Unknown 02/29/2024 4:15 PM CDT 03/01/2024 9:47 PM CDT Comfort Platt NP CHEMISTRY Performing Organization Address [facility] Co de Phone Number [facility] [address] [place] [address], [place] * QUANTIFERON TB GOLD PLUS (02/29/2024 4:15 PM CDT) QFTP NIL 0.00 03/02/2024 2:53 PM CDT [facility] TB1 0.00 IU/mL 03/02/2024 2:53 PM CDT [facility] TB2 0.02 IU/mL 03/02/2024 2:53 PM CDT [facility] MITOGEN 10.00 IU/mL 03/02/2024 2:53 PM CDT [facility] QFTP TB AG1 - NIL 0.00 024 2:53 PM CDT [facility] TB1-NIL % OF NIL 03/02/20 2:53 PM CDT [facility] Comment:Unable to calculate QFTP TB AG2 - NIL 0.02 024 2:53 PM CDT [facility] TB2-NIL % OF NIL 03/02/20 2:53 PM CDT [facility] Comment:Unable to calculate QFTP MITOGEN - NIL 10.00 2023 2:53 PM CDT [facility] QFTP QUANTIFERON INTERPRETATION Negative Negative 03/02/2024 2:53 PM CDT [facility] Blood BLOOD SPECIMEN / Unknown Client Collect / Unknown 02/29/2024 4:15 PM CDT 03/01/2024 9:47 PM CDT [facility] - 03/02/2024 2:53 PM CDT [...] old. - women Comfort Platt NP CHEMISTRY [facility] [address] [place] [address], * PRACTICE OR STUDENT TEACHER THIN PREP PAP SCREEN IMAGED (07/01/2023 3:00 PM CDT) Case Report Gynecologic Cytology Report ? Case: [id number] ? Authorizing Provider: ??Denise Fry, ADMITTED ATTORNEYS ?? Collected: ? 07/01/2023 1500 ? Ordering Location: ? [facility] ?Received: ?07/05/2023 1303 ? First Screen: ?Ino Enriquez ? Specimen: ?PRACTICE OR STUDENT TEACHER ThinPrep Vial Screening, Cervical ? 07/12/2023 9:32 AM CDT [facility] INTERPRETATION/ RESULT NEGATIVE FOR INTRAEPITHELIAL LESION OR MALIGNANCY (NIL) (none) 07/12/2023 9:32 AM CDT [facility] IMEN ADEQUACY Satisfactory for evaluation Endocervical component present Scant cellularity 07/12/2023 9:32 AM CDT [facility] HPV REQUEST HPV not requested 10/03/ 2023 9:32 AM CDT [facility] Date of LMP 06/15/2023 07/12/2023 9:32 AM CDT [facility] Last Pap Result First Pap/Unknown 9:32 AM CDT [facility] Abnormal Pap or [place] Bx in last 5 years No 07/12/2023 9:32 AM CDT [facility] Menstrual Status Regular Periods 07/12/2023 9:32 AM CDT [facility] [place] Bx Done Today No 07/12/2023 9:32 AM CDT [facility] Additional Information 07/12/2023 9:32 AM CDT [facility] Comment: Interpreted at [facility] - [address] [place] [id number] Automated Review Successful 07/12/2023 9:32 AM CDT [facility] Comment:Specimen processed s uccessfully by automated drafter (cad) electronic device, ThinPrep Imaging System, [employer] Note The pap test is a [...] and malignant lesions. 07/12/2023 9:32 AM CDT [facility] Other (Cervical) 07/01/2023 3:00 PM CDT 07/05/2023 1:03 PM CDT Denise Fry NP PATHOLOGY/CYTOLOG [facility] [address] [place] [address], * GC CHLAMYDIA TRACH PROBE (09/21/2022 1:00 PM SALES EXHIBITOR) CHLAMYDIA PROBE Negative 5:24 PM SALES EXHIBITOR [facility] N GONORRHOEAE PROBE Negative 09/22/2022 5:24 PM SALES EXHIBITOR [facility] Other VAGINAL SWAB / Unknown Non-Blood / Unknown 09/21/2022 1:00 PM SALES EXHIBITOR 09/21/2022 1:49 PM SALES EXHIBITOR Deborah Senior NP MICROBIOLOGY Performing Organization Address City/[facility]/ZIP Co de Phone Number [facility] [address] [place] [address], [place] * ANTI HCV (09/11/2020 8:23 AM SALES EXHIBITOR) HEPATITIS C ANTIBODY Non-React kamran Non-React kamran 09/11/2020 12:51 PM SALES EXHIBITOR [facility] Comment:Antibodies to HCV no t detected; does not exclude the possibility of exposure to HCV. Blood BLOOD SPECIMEN / Unknown Butterfly / Unknown 09/11/2020 8:23 AM SALES EXHIBITOR 09/11/2020 8:24 AM SALES EXHIBITOR Kira Turner DO SEND OUTS Performing Organization Address [facility] Co de Phone Number [facility] [address] [place] [address], [place] * ANTI HIV 1/2 (09/11/2020 8:23 AM SALES EXHIBITOR) Pathologist [facility] HIV-1/HIV-2 ANTIBODY Non-Reacti ve Non-Reacti ve 09/11/2020 12:38 PM SALES EXHIBITOR [facility] Comment:HIV-1 p24 and HIV-1/ HIV-2 Ab not detected. Blood BLOOD SPECIMEN / Unknown Butterfly / Unknown 09/11/2020 8:23 AM SALES EXHIBITOR 09/11/2020 8:24 AM SALES EXHIBITOR Kira Turner DO SEND OUTS [facility] [address] [place] [address], [place] from Last 3 Months or Most [...] 3:46 PM 08/18/2016 1:40 PM Care Teams Laborer Stores Relationship Specialty Start Date End Date Staff, Other Clinical . PCP - General 06/05/23
--- OUTSIDE RECORDS SUMMARY | 2024-04-24 16:02 | XMS_ITS | Encounter Summary ---
Author Organization [place] Address [address] [facility] [place] [address] Care Team Providers Care Investment Associate Name Role Phone Abbey Bagley PA-C Unavailable Unavailable Abbey Bagley PA-C Primary Care Provider Unava ilable Ino Robbins MD Unavailable Azul Gilman DO Unavailable [phone] Kelley Diane DO Unavailable Ino Robbins MD Unavailable [phone] Encounter Details Date Type Department Care Team (Late st Contact Info) Description 04/07/2021 MyC Medical Advice [facility] [address] [place] [phone] Ino Robbins MD [address] [place] [address] Social History Tobacco Use Types Packs/Day Years Used Date Smoking Tobacco: Every Day Cigarettes Smokeless Tobacco: Never Alcohol Use Standard Drinks/Week Comments Not Currently 0 (1 standard drink = 0.6 oz pur e alcohol) Seldom PHQ-2 Answer Date Recorded PHQ-2 Score 6 02/19/2021 [place] Depression Scale Answer Date Recorded [place] [...] documented as of this encounter Care Teams Investment Associate Relationship Specialty Start Date End Date Abbey Bagley PA-C PCP - General Physician Blood Bank Manager 08/15/20 Abbey Bagley PA-C Physician Blood Bank Manager 04/11/20 05/02/23 Ino Robbins MD [address] [place] [address] Assigned OBGYN Provider 03/08/21 Azul Gilman DO [address] [place] [address] Assigned Heart and Vascular Provider 03/08/21 09/10/22 Kelley Diane DO [address] [place] [address] Assigned OBGYN Provider 12/04/22 Ino Robbins MD [address] [place] [address] Assigned OBGYN Provider 01/01/23 documented as of this encounter
--- OUTSIDE RECORDS SUMMARY | 2024-04-24 16:02 | XMS_ITS | Encounter Summary ---
Author Organization [employer] Address [address] [place] [address] Care Team Providers Care Iron Cutter Name Role Phone Abbey Bagley PA-C Unavailable Unavailable Abbey Bagley PA-C Primary Care Provider Unava ilable Ino Robbins MD Unavailable [phone] Azul Gilman DO Unavailable [phone] Kelley Diane DO Unavailable [phone] Ino Robbins MD Unavailable Reason for Visit * Reason Onset Date Comments Refill Request 04/02/2021 Encounter Details Date Type Department Care Team (Late st Contact Info) Description 04/02/2021 MyC Refill Initial Department [facility] Refill Request Social History Tobacco Use Types Packs/Day Years Used Date Smoking Tobacco: Every Day Cigarettes Smokeless Tobacco: Never Alcohol Use Standard Drinks/Week Comments Not Currently 0 (1 standard drink = 0.6 oz pur e alcohol) Seldom PHQ-2 Answer Date Recorded PHQ-2 Score 6 02/19/2021 [place] Depression Scale Answer Date Recorded [place] Depression Score 13 03/10/2021 Last EPDS Self [...] documented as of this encounter Care Teams Iron Cutter Relationship Specialty Start Date End Date Abbey Bagley PA-C PCP - General Physician Charge Auditor 08/15/20 Abbey Bagley PA-C Physician Charge Auditor 04/11/20 05/02/23 Ino Robbins MD [address] [place] [address] Assigned OBGYN Provider 03/08/21 Azul Gilman DO [address] [place] [address] Assigned Heart and Vascular Provider 03/08/21 09/10/22 Kelley Diane DO [address] [facility] [address] [place] [address] Assigned OBGYN Provider 12/04/22 Ino Robbins MD [address] [place] [address] Assigned OBGYN Provider 01/01/23 documented as of this encounter
== END 2024-04-24 15:59 | disposition home or self-care (01) ==
PROVIDERS: PCP Nurse Practitioner Family; Visit Provider Nurse Practitioner Family
DX: R41.840 Attention and concentration deficit (principal); R10.32 Left lower quadrant pain
CPT/HCPCS: 81001; 85025; 87086

== ENCOUNTER 2024-04-30 20:26 | Emergency (ER) | payer MEDICAID, SELFPAY ==
[2024-04-30 20:34] VITALS: BP 135/70; PULSE 107; RESP 16; TEMP 36.6; O2SAT 98
--- NOTE | 2024-04-30 20:50 | ED_ITS ---
HPI - Abdominal Pain General Time Seen by Provider: 20:51 Date Seen: 04/30/24 Chief Complaint: Abdominal Pain Stated Complaint: abdominal pain Time Seen by Provider: 04/30/24 20:49 Source: patient, RN notes reviewed and old records reviewed Mode of arrival: ambulatory Limitations: no limitations History of Present Illness HPI narrative: This 23-year-old female presenting to the ER tonight with ongoing diarrhea, nausea, not feeling well, possibly dehydrated. She was in urgent care earlier today, was diagnosed with constipation. She did go home and take MiraLax into an enema. She states she had a large result after that but then started to feel nauseated, feels like she is dehydrated. She started noticing some small amounts of diarrhea on Tuesday, did get worse through the weekend. She maybe had temperatures up to 99 but nothing higher than that. She was not eating much through the weekend but was drinking fluids. She feels like she was already dehydrated when she went to urgent care today. She did have x-ray imaging that showed moderate to large colonic stool volume. She had a normal white blood count and urinalysis did not support any evidence of infection. She notes that she has had left upper quadrant pain through this, is still present tonight. She does not have an IUD any longer, has had a tubal ligation. No travel, no ill contacts. Tuesday she did use some Imodium. She went into Urgent Care for worsening abdominal pain today. No vomiting. She has a mild headache that feels like she is dehydrated. MD elicited complaint: abdominal pain Related Data Home Medications ?Medication ?Instructions ?Recorded ?Confirmed valacyclovir 500 mg tablet 500 mg PO DAILY 05/10/23 04/30/24 (Valtrex) ascorbic acid (vitamin C) 1,000 mg 1 g PO Q6H 06/28/23 04/30/24 tablet ferrous sulfate 325 mg (65 mg 325 mg PO QDAY 06/28/23 04/30/24 iron) tablet (Iron (ferrous sulfate)) Previous Rx's ?Medication ?Instructions ?Recorded albuterol sulfate 90 mcg/actuation 2 puff inhalation Q4-6H PRN 08/30/23 aerosol inhaler shortness of breath or wheezing #8.5 grams Allergies Allergy/AdvReac Type Severity Reaction Status Date / Time tea tree Allergy Mild Verified 04/30/24 23:20 adhesive Allergy Rash Verified 04/30/24 23:20 lamotrigine [From Lamictal] Allergy Verified 04/30/24 23:20 Review of Systems Status of ROS Reports: 6 or more systems reviewed and unremarkable except as noted in History and [facility] History IUD (intrauterine device) in place ?Z97.5 - Presence of (intrauterine) contraceptive device (ICD-10) PTSD (post-traumatic stress disorder) ?F43.10 - Post-traumatic stress disorder, unspecified (ICD-10) Palpitations ?R00.2 - Palpitations (ICD-10) Hypertension ?I10 - Essential (primary) hypertension (ICD-10) Eclampsia ?O15.9 - Eclampsia, unspecified as to time period (ICD-10) Anxiety, generalized ?F41.1 - Generalized anxiety disorder (ICD-10) Migraines ?G43.909 - Migraine, unspecified, not intractable, without status migrainosus (ICD-10) Seizure ?R56.9 - Unspecified convulsions (ICD-10) Surgical History Status post bilateral salpingectomy ?Z90.79 - Acquired absence of other genital organ(s) (ICD-10) Family History Maternal Grandfather Heart disease Father Depression Anxiety Alcohol dependence Drug dependence Paternal Grandmother Anxiety Depression Mother Anxiety Depression Diabetes Alcohol dependence Drug dependence Maternal Grandmother Preeclampsia Paternal Grandfather Anxiety Depression Alcohol dependence Eczema Social History Narrative: . 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 No alcohol. No illicit drug use. What is your current living situation?: I presently have a place to live Problems where you live: no known problems In the past 12 months, utilities in danger of being shut off: no In past 12 months, lack of transportation kept you from medical appts, meetings, work, or getting things needed for daily living: no In the past 12 mos, have been you worried that your food would run out before you had money to buy more?: never true In the past 12 mos, the food you bought just didn't last and you didn't have money to buy more?: never true Smoking Status: Current every day smoker What tobacco products do you use: kai gabrieltes Do you use any of these nicotine containing products: None Second hand tobacco smoke exposure: Yes How often do you have a drink containing alcohol: never How often do you have six or more drinks on one occasion: Never AUDIT-C Alcohol total score: 0 Non-prescribed substance use: denies use Caffeine: Yes How often does anyone, including family, friends and others, physically hurt you : never How often does anyone, including family, friends and others, insult or talk down to you: never How often does anyone, including family, friends and others, threaten you with harm: never How often does anyone, including family, friends and others, scream or curse at you: never Little interest or pleasure in doing things: not at all Feeling down, depressed, or hopeless: more than half the days service: No Exam Const: Vital Signs, click to edit/add: Vital Signs - 24 hr 04/30/24 20:34 04/30/24 23:12 Temperature 97.8 F Pulse Rate [Pulse Oximeter] 107 H 87 Respiratory Rate 16 18 Blood Pressure [Ri ght Upper Arm] 135/70 120/69 Pulse Oximetry 98 99 Oxygen Delivery Me thod Room Air Room Air This 23-year-old female is ambulatory into the ED of her own accord, normal gait, did watch her walk in. Very pleasant, alert, interactive, no apparent distress. Sclera clear, pupils equal round. Oropharynx was normal mucosa, somewhat dry tongue. Lips are not dry or cracked. Lungs are clear come good air entry, no wheezing crackles. CV regular rate and rhythm, no murmur, normal S1-S2, no S3-S4. Abdomen is soft, nondistended, no organomegaly, no rebound or guarding, bowel sounds are present, no masses. Documenting provider has reviewed patient's vital signs: yes Course Course ED Course: Discussed with end-stage a that we certainly can place an IV, will give her L of normal saline and 4 mg IV Zofran. I have reviewed with her that I would like to recheck a CBC, will also get a comprehensive metabolic panel. Like to see if there is any abnormalities on those, make sure her white count is not going up. Her belly film certainly would support constipation, she took Imodium yesterday and was constipated, this could give her increased cramping. Her abdominal exam certainly is benign. Will see were some of her labs are, review with her further imaging with either x-ray or CT. Did discuss this initially but she is unsure at this point. Thus, we will see how she feels with some fluids and Zofran, check some initial labs on her before doing any imaging. Reevaluation(s) Time of Reevaluation #1: 21:38 Reevaluation #1: Have ordered abdominal imaging in the form of CT scan with IV contrast. With low count is elevating, was 5800 earlier today, is now 9280 with increasing neutrophils, the absolute neutrophil count is now elevated at 7500. This was 3620 earlier today. Patient is about 2/3 done with her IV fluids, states the headache is gone but she is still feeling the left upper quadrant discomfort and pressure. We will give her a dose of IV Toradol while we await the CT to be done. Time of Reevaluation #2: 23:25 Reevaluation #2: Have reviewed CT findings with patient. She unfortunately has splenomegaly of unknown etiology at this time. This certainly could be responsible for her left upper quadrant abdominal symptoms. The stool is largely gone from the lower colon, still has some right-sided stool. Constipation has improved. We discussed pain management. She has 2 small children at home and did have a component of constipation, thus, making narcotic usage not advantageous. We did discuss ongoing Tylenol and ibuprofen. I will add on EBV and CMV titers to her blood work. We discussed viral etiology is certainly a common causative etiology of splenomegaly. She needs to follow up with her primary care provider in clinic. She is not in any contact sports which we discussed is a contraindication with splenomegaly. Reimaging should be considered and can be reviewed with her primary care provider. There is nothing further for us to do emergently tonight. Vital Signs Vital signs: Initial Vital Signs Temperature 97.8 F 04/30/24 20:34 Temperature Source Temporal Artery Scan 04/30/24 20:34 Pulse Rate 107 H 04/30/24 20:34 Respiratory Rate 16 04/30/24 20:34 Blood Pressure 135/70 04/30/24 20:34 Blood Pressure Mean 91 04/30/24 20:34 Blood Pressure Position Sitting 04/30/24 20:34 Pulse Oximetry 98 04/30/24 20:34 Oxygen Delivery Method Room Air 04/30/24 20:34 Vital Signs Temperature 97.8 F 04/30/24 20:34 Pulse Rate 107 H 04/30/24 20:34 Respiratory Rate 16 04/30/24 20:34 Blood Pressure 135/70 04/30/24 20:34 Pulse Oximetry 98 04/30/24 20:34 Oxygen Delivery Method Room Air 04/30/24 20:34 Temperature 97.8 F 04/30/24 20:34 Pulse Rate 87 04/30/24 23:12 Respiratory Rate 18 04/30/24 23:12 Blood Pressure 120/69 04/30/24 23:12 Pulse Oximetry 99 04/30/24 23:12 Oxygen Delivery Method Room Air 04/30/24 23:12 Medications Administered Medications: Discontinued Medications Generic Name Dose Route Start Last Admin Trade Name Evens PRN Reason Stop Dose Admin Sodium Chloride 1,000 mls @ 1,000 mls/hr 04/30/24 20:57 04/30/24 22:07 0.9 % Sodium Chloride 1000 Ml IV 04/30/24 21:56 Infused .Q1H JAYDON Infusion Ketorolac Tromethamine 15 mg 04/30/24 21:42 04/30/24 21:45 Ketorolac 15 Mg/Ml Inj IVP 04/30/24 21:43 15 mg ONCE ONE Administration Ondansetron HCl 4 mg 04/30/24 20:57 04/30/24 21:13 Ondansetron 2 Mg/Ml Inj IVP 04/30/24 20:58 4 mg ONCE ONE Administration MDM - Abdominal Pain Lab Data Attestation: I reviewed the patient's lab results. Labs: Lab Results 04/30/24 Range/Units 21:18 WBC 9.28 (4.50-11.00) K/uL RBC 4.85 (4.00-5.20) m/uL Hgb 13.1 (12.0-16.0) gm/dL Hct 41.1 (33.0-51.0) % MCV 85 (80-100) fL MCH 27 (26-34) pg MCHC 32 (32-36) gm/dL RDW Coeff of Destini 13.3 (11.5-15.5) % Plt Count 232 (140-440) K/uL Neut % (Auto) 80.3 H (42.0-72.0) % Lymph % (Auto) 13.5 L (20-44) % Logan % (Auto) 4.8 (0.0-11.0) % Eos % (Auto) 0.9 (0.0-7.0) % Baso % (Auto) 0.4 (0.0-3.0) % Neut # (Auto) 7.50 H (1.7-7.0) K/uL Lymph # (Auto) 1.30 (0.90-2.90) K/uL Logan # (Auto) 0.40 (0.00-0.90) K/UL Eos # (Auto) 0.08 (0.00-0.50) K/uL Baso # (Auto) 0.04 (0.00-0.30) K/uL Abs Immat Gran (auto) 0.01 (0.00-0.30) K/uL Imm/Tot Granulo (auto) 0.1 % Sodium 137 (135-149) mmol/L Potassium 3.8 (3.6-5.1) mmol/L Chloride 108 (96-114) mmol/L Carbon Dioxide 21 (20-32) mmol/L Anion Gap 8 (7-15) mEq/L BUN 9 (5-24) mg/dL Creatinine 0.6 (0.5-1.5) mg/dL Estimated GFR 131 ml/min Glucose 118 H (60-115) mg/dL Lactate 1.0 (0.5-1.9) mmol/L Calcium 9.1 (8.4-10.6) mg/dL Total Bilirubin 0.4 (0.1-1.5) mg/dL AST 18 (12-35) U/L ALT 15 (4-35) U/L Alkaline Phosphatase 48 (40-150) U/L C-Reactive Protein < 0.5 L (0.5-1.0) mg/dL Total Protein 6.8 (6.0-8.3) g/dL Albumin 4.2 (3.3-5.0) g/dL Imaging Data CT scan - abdomen: Attestation: I have reviewed the pertinent imaging results. Radiologist's impression: Patient: RICHEI QUIÑONES Facility:?[facility] Patient ID:?[id number] Site Patient ID:?[id number]. Site :?[id number] Study:?CT-Abdomen/Pelvis WITH ISOVUE 370 98cc-04/30/2024 10:17:10 PM Ordering Physician:?Alejandra Suarez Final Report: INDICATION: Increasing left upper quadrant abdominal pain. TECHNIQUE: CT of the abdomen and pelvis acquired with 98 cc Isovue 370 IV contrast. Coronal and sagittal reconstructions. COMPARISON: CT of the abdomen and pelvis 06/03/2023. FINDINGS: The liver, gallbladder, pancreas, and adrenal glands are negative. The spleen is enlarged measuring 13.5 cm in AP dimension. No focal splenic lesions. No biliary dilation. Hepatic and portal veins are patent. Symmetric enhancement of the kidneys. No hydronephrosis or ureteral dilation. No obstructing urinary calculi identified. No bladder wall thickening. Uterus and adnexa are unremarkable. No small bowel dilation. Moderate amount of stool in the proximal colon. The distal colon is decompressed. Negative appendix. Trace free fluid in the pelvis is likely physiologic. No intraperitoneal free air. No lymphadenopathy. The lung bases are clear. The bones are unremarkable. IMPRESSION: 1. No acute findings in the abdomen or pelvis. 2. Mild splenomegaly. Please note that all CT scans at this facility use dose modulation, iterative reconstruction, and/or weight-based dosing when appropriate to reduce radiation dose to as low as reasonably achievable. Dictated by Kiesha Dickinson MD @ 04/30/2024 10:40:48 PM (Electronic Signature) Discharge Plan Discharge Clinical Impression: Abdominal pain, left upper quadrant, Splenomegaly Constipation Qualifiers: Constipation type: unspecified constipation type Qualified Code(s): K59.00 - Constipation, unspecified Patient Disposition: Home, Self-Care Condition: Stable Instructions: Constipation (ED), High Fiber Diet (ED), Acute Abdominal Pain (ED) Additional Instructions: Please follow-up with Shakeel Platt in clinic this week. Can continue to try Tylenol and ibuprofen as needed for pain management. Do recommend using MiraLax 17 g daily for goal of a soft but formed stool, can back off if stools become too soft or just have ongoing diarrhea. Try to eat small frequent meals, drink small amounts of fluid every 5-10 minutes while awake, will help counteract any nausea or diminished appetite that you may have. If you develop increasing abdominal pain, have abdominal pain with for development of fever or vomiting, need to be re-evaluated. Prescriptions: No Action albuterol sulfate 90 mcg/actuation HFA aerosol inhaler 2 puff inhalation Q4-6H PRN (Reason: shortness of breath or wheezing) Qty: 8.5 0RF ferrous sulfate [Iron (ferrous sulfate)] 325 mg (65 mg iron) tablet 325 mg PO QDAY ascorbic acid (vitamin C) 1,000 mg tablet 1 g PO Q6H valacyclovir [Valtrex] 500 mg tablet 500 mg PO DAILY Follow Up/Referrals: Comfort Platt, VICE PRESIDENT OF COMMUNICATIONS, PLATE TAKE OUT WORKER [Primary Care Provider] - Stand Alone Forms: [employer] Info Instructions
--- OUTSIDE RECORDS SUMMARY | 2024-04-30 21:12 | XMS_ITS | Encounter Summary ---
Author Organization [place] Address [address] [place] [address] Care Team Providers Care Pot Fisher Name Role Phone Abbey Bagley PA-C Unavailable Unavailable Abbey Bagley PA-C Primary Care Provider Unava ilable Ino Robbins MD Unavailable Azul Gilman DO Unavailable [phone] Kelley Diane DO Unavailable [phone] Ino Robbins MD Unavailable Reason for Visit [...] Answer Date Recorded PHQ-2 Score 6 02/19/2021 [place] Depression Scale Answer Date Recorded [place] Depression Score 13 03/10/2021 Last EPDS [...] documented as of this encounter Care Teams Pot Fisher Relationship Specialty Start Date End Date Abbey Bagley PA-C PCP - General Physician Pt Escort 08/15/20 Abbey Bagley PA-C Physician Pt Escort 04/11/20 05/02/23 Ino Robbins MD [address] [place] [address] Assigned OBGYN Provider 03/08/21 Azul Gilman DO [address] [place] [address] Assigned Heart and Vascular Provider 03/08/21 09/10/22 Kelley Diane DO [address] [place] [address] Assigned OBGYN Provider 12/04/22 Ino Robbins MD [address] [place] [address] Assigned OBGYN Provider 01/01/23 documented as of this encounter
--- OUTSIDE RECORDS SUMMARY | 2024-04-30 21:12 | XMS_ITS | Clinical Summary ---
Author Organization [place] Address [address] [place] [address] Care Team Providers Care Program Project Manager Name Role Phone Abbey Bagley [...] Answer Date Recorded PHQ-2 Score 0 04/14/2023 [place] Depression Scale Answer Date Recorded Last EPDS [...] 09/21/2022, 12/23/2020, Additional history exists INFLUENZA VACCINE (#1) 2024 , 10/21/2021, 07/01/2020, Additional history exists DTAP/TDAP/TD IMMUNIZATION [...] ANTIGEN ANTIBODY COMBO Routine 11/26/2022 2:16 PM SENIOR NET SOFTWARE ENGINEER Encounter for supervision of other normal in second trimester HEPATITIS C ANTIBODY Routine 11/26/2022 2:16 PM SENIOR NET SOFTWARE ENGINEER Encounter for supervision of other normal in second trimester CHLAMYDIA TRACHOMATIS PCR Routine 11/26/2022 1:42 PM SENIOR NET SOFTWARE ENGINEER Screen for STD (sexually transmitted disease) from Last 3 Months or Most Recently Relevant to Health Maintenance Results * HIV Antigen Antibody Combo (11/26/2022 2:16 PM SENIOR NET SOFTWARE ENGINEER) HIV Antigen Antibody Combo Nonreactive Nonreactive 11/27/2022 2:46 PM SENIOR NET SOFTWARE ENGINEER [facility] DO Comment:HIV-1 p24 Ag & HIV-1 /HIV-2 Ab Not Detected Blood BLOOD SPECIMEN / Unknown Venipuncture / Unknown 11/26/2022 2:16 PM SENIOR NET SOFTWARE ENGINEER 11/26/2022 2:28 PM SENIOR NET SOFTWARE ENGINEER Kelley Diane DO LAB - BLOOD ORDER [place] [facility]ENDO [facility]Prot/Endo [address] [facility] [address], [address] [phone] * Hepatitis C antibody (11/26/2022 2:16 PM SENIOR NET SOFTWARE ENGINEER) Hepatitis C Antibody Nonreactive Nonreactive 11/27/2022 2:46 PM SENIOR NET SOFTWARE ENGINEER [facility] DO Blood BLOOD SPECIMEN / Unknown Venipuncture / Unknown 11/26/2022 2:16 PM SENIOR NET SOFTWARE ENGINEER 11/26/2022 2:28 PM SENIOR NET SOFTWARE ENGINEER Narrative SPECIALTY CORE/PROT/ENDO - 11/27/2022 2:46 PM SENIOR NET SOFTWARE ENGINEER Assay performance characteristics have not been established for newborns, infants, and children. Kelley Diane DO LAB - BLOOD ORDER [place] SPECIALTY C[facility]/PROT/ENDO Specialty Core/Prot/Endo [address] [facility], [address] [place], [place] [address] [phone] * CHLAMYDIA TRACHOMATIS PCR (11/26/2022 1:42 PM SENIOR NET SOFTWARE ENGINEER) Chlamydia trachomatis Negative Negative 11/27/2022 12:55 PM SENIOR NET SOFTWARE ENGINEER [facility] Comment:A negative result by building carpenter helper mediated amplification does not preclude the presence of C. trachomatis infection because results are dependent on proper and adequate collection, absence of inhibitors and sufficient rRNA to be detected. Swab CERVIX UTERI STRUCTURE / Unknown Non-blood Collection / Unknown 11/26/2022 1:42 PM SENIOR NET SOFTWARE ENGINEER 11/26/2022 3:02 PM SENIOR NET SOFTWARE ENGINEER Kelley Diane DO LAB - MICRO GENER AL ORDERABLES [facility] Inf. Diseases Diag. Lab [address] [facility] [place] [address], [facility] [phone] from Last 3 Months or Most Recently Relevant to Health Maintenance Advance Directives For more information, please contact: [phone] * Full Code (Latest Code Status on [...] aisha nt/ legal decision maker Care Teams Program Project Manager Relationship Specialty Start Date End Date Abbey Bagley PA-C PCP - General Physician Irrigation Service Technician 08/15/20 Ino Robbins MD [address] [place] [address] Assigned OBGYN Provider 01/01/23
--- OUTSIDE RECORDS SUMMARY | 2024-04-30 21:12 | XMS_ITS | Encounter Summary ---
Author Organization [place] Address [facility] [place] [address] Care Team Providers Care Smocker Name Role Phone Abbey Bagley PA-C Unavailable Unavailable Abbey Bagley PA-C Primary Care Provider Kelley Ko DO Unavailable [phone] Ino Robbins MD Unavailable Encounter Details Date Type Department Care Team (Late st Contact Info) Description 11/23/2022 [facility] Medical Advice [address] [place] [address] Di Sher RN Social History Tobacco Use Types Packs/Day Years Used Date Smoking Tobacco: Some Days Cigarettes Smokeless Tobacco: Never Alcohol Use Standard Drinks/Week Comments Not Currently 0 (1 standard drink = 0.6 oz pur e alcohol) Seldom PHQ-2 Answer Date Recorded PHQ-2 Score 2 11/26/2022 [place] Depression Scale Answer Date Recorded [place] Depression Score 13 03/10/2021 Last EPDS Self [...] Coronavirus/COVID-19? No / Unsure 11/26/2022 1:26 PM HUNTING SALES ASSOCIATE documented as of this encounter Plan of Treatment Not on file documented as of this encounter Visit Diagnoses Not on filedocumented in this encounter Additional Health Concerns Assessment Noted Time PHQ-9 Depression Total Score: 19 021 3:52 PM CDT documented as of this encounter Care Teams Smocker Relationship Specialty Start Date End Date Abbey Bagley PA-C PCP - General Physician Milling Operator 08/15/20 Abbey Bagley PA-C Physician Milling Operator 04/11/20 05/02/23 Kelley Diane DO [address] [address] Assigned OBGYN Provider 12/04/22 Ino Robbins MD [address] [place] [address] Assigned OBGYN Provider 01/01/23 documented as of this encounter
--- OUTSIDE RECORDS SUMMARY | 2024-04-30 21:12 | XMS_ITS | Encounter Summary ---
Author Organization [place] Address [address] [facility] [place] [address] Care Team Providers Care Cell Biology Scientist Name Role Phone Abbey Bagley PA-C Unavailable Unavailable Abbey Bagley PA-C Primary Care Provider Unava ilable Ino Robbins MD Unavailable Azul Gilman DO Unavailable [phone] Kelley Diane DO Unavailable Ino Robbins MD Unavailable Encounter Details Date Type Department Care Team (Late st Contact Info) Description 04/07/2021 [facility] Medical Advice [facility] [address] [place] [phone] Ino Robbins MD [address] [place] [address] Social History Tobacco Use Types Packs/Day Years Used Date Smoking Tobacco: Every Day Cigarettes Smokeless Tobacco: Never Alcohol Use Standard Drinks/Week Comments Not Currently 0 (1 standard drink = 0.6 oz pur e alcohol) Seldom PHQ-2 Answer Date Recorded PHQ-2 Score 6 02/19/2021 [place] Depression Scale Answer Date Recorded [place] Depression Score 13 03/10/2021 Last EPDS Self [...] documented as of this encounter Care Teams Cell Biology Scientist Relationship Specialty Start Date End Date Abbey Bagley PA-C PCP - General Physician Lens Edge Grinder Machine 08/15/20 Abbey Bagley PA-C Physician Lens Edge Grinder Machine 04/11/20 05/02/23 Ino Robbins MD [address] [place] [address] Assigned OBGYN Provider 03/08/21 Azul Gilman DO [address] [place] [address] Assigned Heart and Vascular Provider 03/08/21 09/10/22 Kelley Diane DO [address] [place] [address] Assigned OBGYN Provider 12/04/22 Ino Robbins MD [address] [place] [address] Assigned OBGYN Provider 01/01/23 documented as of this encounter
--- OUTSIDE RECORDS SUMMARY | 2024-04-30 21:12 | XMS_ITS | Encounter Summary ---
Author Organization [facility] Address [address] [place] [address] Phone Care Team Providers Care Senior Administrative Associate Name Role Phone Alfred Lambert APRN, CNP Primary Care Provider Reason for Referral * Consult/Test/Treat (Routine) - New Request Specialty Diagnoses / Procedures Referred By Bernardo belle Referred To Contact Physical Medicine and Rehab / PHYSICAL MEDICINE AND REHAB Diagnoses POTS (postural orthostatic tachycardia syndrome) Justina Bowser APRN, CNP [address] [address] [facility] [address] [place] [address] Referral ID Status Reason Start Date Expiration Date V isits Requested Visits Authorized [id number] New Request 01/24/2024 01/23/2025 1 1 Reason for Visit * Reason Comments Follow-up Encounter Details Date Type Department Care Team (Late st Contact Info) Description 01/24/2024 3:00 PM CDT [facility] Card[facility] Clinic [address] [place] [phone] Justina Bowser APRN, CNP [address] [address] POTS (postural orthostatic tachycardia syndrome) (Primary Dx) [...] this encounter Progress Notes * Justina Bowser, STEEL SPAR OPERATOR, GENERAL OPERATIONS AGENT - 01/24/2024 3:00 PM CDT Images from [...] Previous cardiovascular evaluation I personally reviewed today: [facility] (TTE) (01/17/2024 13:01) I [...] very pleasant patient. Justina Bowser APRN, [facility] [address] 01/24/2024 14:42 [...] not prevent her from receiving futurecare at [facility]. - Patient acknowledges risks of telemedicine and agrees to follow provider's recommendations. Patient consents to this service: Yes. Patient's Physical Location: Home Provider's Physical Location: Onsite at [facility] Participants in this Telemedicine Visit other [...] Total Score: 7 08/22/20 23 11:05 AM NETWORK FIREWALL ENGINEER PHQ-2 Depression Total Score: 2 08/22/20 23 11:05 AM NETWORK FIREWALL ENGINEER documented as of this encounter Care Teams Senior Administrative Associate Relationship Specialty Start Date End Date Alfred Lambert APRN, CNP [address] [address] PCP - General Internal Medicine 01/17/24 documented as of this encounter
--- OUTSIDE RECORDS SUMMARY | 2024-04-30 21:12 | XMS_ITS | Referral Summary ---
Author Organization [employer] Address [address] [place] [address] Phone Care Team Providers Care Glass Designer Name Role Phone Alfred Lambert APRN, CNP Primary Care Provider Source Comments [employer] is fully rolled out on [employer]. Last update 03/14/09.[facility] Allergies Active Allergy Reactions Criticality Noted Date [...] (major depressive disord er), recurrent episode, moderate ([facility]) 08/19/2023 Suicidal ideation 06/09/2023 Asthma ([facility]) 06/08/2023 06/08/2023 Essential hypertension in patient (HH S) 06/08/2023 06/08/2023 Hypertension 06/08/2023 06/08/2023 Iron deficiency anemia 06/08/2023 Anxiety 06/08/2023 06/08/2023 Anxiety disorder, unspecified type 06/08/2023 Bipolar II disorder ([facility]) 05/09/2023 PTSD (post-traumatic stress disorder) 05/09/2023 Eclampsia ([facility]) 05/05/2023 06/08/2023 History of depression 05/05/2023 06/08/2023 Iron deficiency 12/23/2020 06/08/2023 Chronic GERD 01/24/2020 06/08/2023 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 Encounter for screening 02/05/2005 06/08/20 Overview: LW Onset: [id number] ; Child and Teen Check Up Needs [...] Comments Blood Pressure 116/79 11/24/2023 1:18 PM REWORK OPERATOR Pulse 104 11/24/2023 1:18 PM REWORK OPERATOR Temperature 36.4 ??C (97.5 ??F) 06/14/2023 9:28 AM CD T Respiratory Rate 18 06/14/2023 9:28 AM CDT Oxygen Saturation 99% 06/14/2023 9:28 AM CDT Inhaled Oxygen Concentration - - Weight 89.4 kg (197 lb) 11/24/2023 1:18 PM REWORK OPERATOR Height 170.8 cm (5' 7.24) 06/08/2023 8:18 PM CD T Body Mass Index 30.63 06/08/2023 8:18 PM CDT Plan of Treatment Not on file Procedures Procedure Name Priority Date/Time Associated Diagnosis Comments PAP TEST Routine 07/01/2023 3:00 PM CDT HIV COMBO Routine 11/26/2022 2:16 PM REWORK OPERATOR URINE CHLAMYDIA AND NEISSERIAE GONORRHOEAE AMPLIFICATION Routine 11/26/2022 1:42 PM REWORK OPERATOR from Last 3 Months or Most Recently Relevant to Health Maintenance Advance Directives For more information, please contact: [phone] * Full Code (Latest Code Status on File) Date Activated Date Inactivated Comments 06/08/2023 10:12 PM 06/15/2023 1:52 PM Question Answer Comments Does the Patient have prefer ences regarding life sustaining measures (these options only apply when the patient has a pulse): No Discussed Code Status With Whom? Not discussed Care Teams Glass Designer Relationship Specialty Start Date End Date Alfred Lambert, SLURRY WORKER, STORY WRITER [address] [place] [address] PCP - General Internal Medicine 01/17/24
--- OUTSIDE RECORDS SUMMARY | 2024-04-30 21:12 | XMS_ITS | Referral Summary ---
Author Organization [facility] Address [address] [place] [place] [address] Care Team Providers Care Territory Business Manager Name Role Phone Abbey Bagley PA-C [...] Answer Date Recorded PHQ-2 Score 0 04/14/2023 [place] Depression Scale Answer Date Recorded Last EPDS [...] ANTIGEN ANTIBODY COMBO Routine 11/26/2022 2:16 PM PIANO SOUNDING BOARD MATCHER Encounter for supervision of other normal in second trimester HEPATITIS C ANTIBODY Routine 11/26/2022 2:16 PM PIANO SOUNDING BOARD MATCHER Encounter for supervision of other normal in second trimester CHLAMYDIA TRACHOMATIS PCR Routine 11/26/2022 1:42 PM PIANO SOUNDING BOARD MATCHER Screen for STD (sexually transmitted disease) from Last 3 Months or Most Recently Relevant to Health Maintenance Results * HIV Antigen Antibody Combo (11/26/2022 2:16 PM PIANO SOUNDING BOARD MATCHER) HIV Antigen Antibody Combo Nonreactive Nonreactive 11/27/2022 2:46 PM PIANO SOUNDING BOARD MATCHER [facility] DO Comment:HIV-1 p24 Ag & HIV-1 /HIV-2 Ab Not Detected Blood BLOOD SPECIMEN / Unknown Venipuncture / Unknown 11/26/2022 2:16 PM PIANO SOUNDING BOARD MATCHER 11/26/2022 2:28 PM PIANO SOUNDING BOARD MATCHER Kelley Diane DO LAB - BLOOD ORDER [place]PROT/ENDO [facility]/Prot/Endo [address] [facility], [address] [phone] * Hepatitis C antibody (11/26/2022 2:16 PM PIANO SOUNDING BOARD MATCHER) Pathologist [facility] Hepatitis C Antibody Nonreactive Nonreactive 11/27/2022 2:46 PM PIANO SOUNDING BOARD MATCHER SPECIALTY CORE/PROT/EN DO Blood BLOOD SPECIMEN / Unknown Venipuncture / Unknown 11/26/2022 2:16 PM PIANO SOUNDING BOARD MATCHER 11/26/2022 2:28 PM PIANO SOUNDING BOARD MATCHER Narrative SPECIALTY CORE/PROT/ENDO - 11/27/2022 2:46 PM PIANO SOUNDING BOARD MATCHER Assay performance characteristics have not been established for newborns, infants, and children. Kelley Diane DO LAB - BLOOD ORDER [place] SPECIALTY CORE/PROT/ENDO Specialty Core/Prot/Endo [address] [facility], [address] [place] [address], [facility] [phone] * CHLAMYDIA TRACHOMATIS PCR (11/26/2022 1:42 PM PIANO SOUNDING BOARD MATCHER) Pathologist [facility] Chlamydia trachomatis Negative Negative 11/27/2022 12:55 PM PIANO SOUNDING BOARD MATCHER [facility] Comment:A negative result by alley tender mediated amplification does not preclude the presence of C. trachomatis infection because results are dependent on proper and adequate collection, absence of inhibitors and sufficient rRNA to be detected. Swab CERVIX UTERI STRUCTURE / Unknown Non-blood Collection / Unknown 11/26/2022 1:42 PM PIANO SOUNDING BOARD MATCHER 11/26/2022 3:02 PM PIANO SOUNDING BOARD MATCHER Kelley Diane DO LAB - MICRO GENER AL ORDERABLES [facility] Inf. Diseases Diag. Lab [address] [facility], [address] [place] [address], [facility] [phone] from Last 3 Months or Most Recently Relevant to Health Maintenance Advance Directives For more information, please contact: [phone] * Full Code (Latest Code Status on [...] aisha nt/ legal decision maker Care Teams Territory Business Manager Relationship Specialty Start Date End Date Abbey Bagley PA-C PCP - General Physician Sports Reporter 08/15/20 Ino Robbins MD [address] [place] [address] Assigned OBGYN Provider 01/01/23
--- OUTSIDE RECORDS SUMMARY | 2024-04-30 21:12 | XMS_ITS | Clinical Summary ---
Author Organization [employer] Address [address] [place] [phone] Phone Care Team Providers Care Transportation Security Officer Name Role Phone Alfred Lambert APRN, CNP Primary Care Provider Source Comments [employer] is fully rolled out on [employer]. Last update 03/14/09.[employer] Allergies Active Allergy Reactions Criticality Noted Date [...] (major depressive disord er), recurrent episode, moderate ([facility]) 08/19/2023 Suicidal ideation 06/09/2023 Asthma ([facility]) 06/08/2023 06/08/2023 Essential hypertension in patient (HH S) 06/08/2023 06/08/2023 Hypertension 06/08/2023 06/08/2023 Iron deficiency anemia 06/08/2023 Anxiety 06/08/2023 06/08/2023 Anxiety disorder, unspecified type 06/08/2023 Bipolar II disorder ([facility]) 05/09/2023 PTSD (post-traumatic stress disorder) 05/09/2023 Eclampsia ([facility]) 05/05/2023 06/08/2023 History of depression 05/05/2023 06/08/2023 Iron deficiency 12/23/2020 06/08/2023 Chronic GERD 01/24/2020 06/08/2023 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 Encounter for screening 02/05/2005 06/08/20 Overview: LW Onset: [id number] ; Child and Teen Check Up Needs [...] Comments Blood Pressure 116/79 11/24/2023 1:18 PM GENERAL FOREMAN Pulse 104 11/24/2023 1:18 PM GENERAL FOREMAN Temperature 36.4 ??C (97.5 ??F) 06/14/2023 9:28 AM CD T Respiratory Rate 18 06/14/2023 9:28 AM CDT Oxygen Saturation 99% 06/14/2023 9:28 AM CDT Inhaled Oxygen Concentration - - Weight 89.4 kg (197 lb) 11/24/2023 1:18 PM GENERAL FOREMAN Height 170.8 cm (5' 7.24) 06/08/2023 8:18 [...] CDT HIV COMBO Routine 11/26/2022 2:16 PM GENERAL FOREMAN URINE CHLAMYDIA AND NEISSERIAE GONORRHOEAE AMPLIFICATION Routine 11/26/2022 1:42 PM GENERAL FOREMAN from Last 3 Months or Most Recently Relevant to Health Maintenance Advance Directives For more information, please contact: [phone] * Full Code (Latest Code Status on File) Date Activated Date Inactivated Comments 06/08/2023 10:12 PM 06/15/2023 1:52 PM Question Answer Comments Does the Patient have prefer ences regarding life sustaining measures (these options only apply when the patient has a pulse): No Discussed Code Status With Whom? Not discussed Care Teams Transportation Security Officer Relationship Specialty Start Date End Date Alfred Lambert, VEHICLE BODY BUILDER, ORNAMENTAL IRON WORKER APPRENTICE [address] [place] [address] PCP - General Internal Medicine 01/17/24
--- OUTSIDE RECORDS SUMMARY | 2024-04-30 21:12 | XMS_ITS | Encounter Summary ---
Author Organization [facility] Address [facility] [place] [address] Care Team Providers Care Lace And Textiles Restorer Name Role Phone Abbey Bagley PA-C Unavailable Unavailable Abbey Bagley PA-C Primary Care Provider Kelley Ko DO Unavailable Ino Robbins MD Unavailable Encounter Details Date Type Department Care Team (Late st Contact Info) Description 11/22/2022 [facility] Medical Advice [address] [place] [address] Di Sher RN Social History Tobacco Use Types Packs/Day Years Used Date Smoking Tobacco: Every Day Cigarettes Smokeless Tobacco: Never Alcohol Use Standard Drinks/Week Comments Not Currently 0 (1 standard drink = 0.6 oz pur e alcohol) Seldom PHQ-2 Answer Date Recorded PHQ-2 Score 2 11/26/2022 [place] Depression Scale Answer Date Recorded [place] Depression Score 13 03/10/2021 Last EPDS [...] Coronavirus/COVID-19? No / Unsure 11/17/2022 6:32 PM SPLICING TECHNICIAN documented as of this encounter Plan of Treatment Not on file documented as of this encounter Visit Diagnoses Not on filedocumented in this encounter Additional Health Concerns Assessment Noted Time PHQ-9 Depression Total Score: 19 021 3:52 PM CDT documented as of this encounter Care Teams Lace And Textiles Restorer Relationship Specialty Start Date End Date Abbey Bagley PA-C PCP - General Physician Water Resources Technical Officer 08/15/20 Abbey Bagley PA-C Physician Water Resources Technical Officer 04/11/20 05/02/23 Kelley Diane DO [address] [address] Assigned OBGYN Provider 12/04/22 Ino Robbins MD [address] [place] [address] Assigned OBGYN Provider 01/01/23 documented as of this encounter
--- OUTSIDE RECORDS SUMMARY | 2024-04-30 21:12 | XMS_ITS | Encounter Summary ---
Author Organization [facility] Address [address] [facility] [place] [address] Care Team Providers Care Medical Technologist Name Role Phone Abbey Bagley PA-C Unavailable Unavailable Abbey Bagley PA-C Primary Care Provider Unava ilable Ino Robbins MD Unavailable Reason for Visit * Reason Onset Date Comments Care 04/26/2023 Encounter Details Date Type Department Care Team (Late st Contact Info) Description 04/26/2023 [facility] Medical Advice [facility] Women's Clinic [address] [place] [phone] Ino Robbins MD [address] [place], [place] [phone] Care Social History Tobacco Use Types Packs/Day Years Used Date Smoking Tobacco: Former Cigarettes Q uit: 03/10/2023 Passive Smoke Exposure: Never Smokeless Tobacco: Never Alcohol Use Standard Drinks/Week Comments Not Currently 0 (1 standard drink = 0.6 oz pur e alcohol) Seldom PHQ-2 Answer Date Recorded PHQ-2 Score 0 04/14/2023 [place] Depression Scale Answer Date Recorded [place] Depression Score 13 03/10/2021 Last EPDS Self [...] as of this encounter Care Teams Medical Technologist Relationship Specialty Start Date End Date Abbey Bagley PA-C PCP - General Physician Credit Analysis Manager 08/15/20 Abbey Bagley PA-C Physician Credit Analysis Manager 04/11/20 05/02/23 Ino Robbins MD [address] [place] [address] Assigned OBGYN Provider 01/01/23 documented as of this encounter
--- OUTSIDE RECORDS SUMMARY | 2024-04-30 21:12 | XMS_ITS | Encounter Summary ---
Author Organization [facility] Address [address] [facility]. [address] Care Team Providers Care Electronic Resources Librarian Name Role Phone Abbey Bagley PA-C Unavailable Unavailable Abbey Bagley PA-C Primary Care Provider Kelley Ko DO Unavailable Ino Robbins MD Unavailable Encounter Details Date Type Department Care Team (Late st Contact Info) Description 12/07/2022 [facility] Medical Advice [facility] [address] [place] [phone] Diana Rainey, RN Social History Tobacco Use Types Packs/Day Years Used Date Smoking Tobacco: Some Days Cigarettes Smokeless Tobacco: Never Alcohol Use Standard Drinks/Week Comments Not Currently 0 (1 standard drink = 0.6 oz pur e alcohol) Seldom PHQ-2 Answer Date Recorded PHQ-2 Score 2 11/26/2022 [place] Depression Scale Answer Date Recorded [place] Depression Score 13 03/10/2021 Last EPDS Self [...] Coronavirus/COVID-19? No / Unsure 11/26/2022 1:26 PM SINGING TELEGRAM PERFORMER documented as of this encounter Plan of Treatment Not on file documented as of this encounter Visit Diagnoses Not on filedocumented in this encounter Additional Health Concerns Assessment Noted Time PHQ-9 Depression Total Score: 19 021 3:52 PM CDT documented as of this encounter Care Teams Electronic Resources Librarian Relationship Specialty Start Date End Date Abbey Bagley PA-C PCP - General Physician Transport Assistant 08/15/20 Abbey Bagley PA-C Physician Transport Assistant 04/11/20 05/02/23 Kelley Diane DO [address] [address] Assigned OBGYN Provider 12/04/22 Ino Robbins MD [address] [place] [address] Assigned OBGYN Provider 01/01/23 documented as of this encounter
[2024-04-30] MEDS: ONDANSETRON 2 MG/ML inj 4 MG IVP (21:13)
--- OUTSIDE RECORDS SUMMARY | 2024-04-30 21:13 | XMS_ITS | Clinical Summary ---
Author Organization [facility] Address [place], [place] [address] Care Team Providers Care Malted Milk Masher Name Role Phone Staff, Other Clinical Primary [...] Department Care Team Description 03/01/2024 Lab Requisition [facility] [phone] Comfort Platt, LIBERAL ARTS TEACHER from Last 3 Months Immunizations Name Administration Dates Next Due COVID-19 vaccine ([employer] NTech 30mcg/0.3mL) [place]ER 2021 DTaP 05/23/2007, 7,08/27/2004,08/27,2002,2002 [id number] (Pediarix) 07/16/2004,07/16/2004 HIB PRP-OMP (PedvaxHIB) 07/16/2004 HIB [...] Used Date Smoking Tobacco: Former Cigarettes 0.3 5.6 S tarted: 2018 Smokeless Tobacco: Former Tobacco [...] Ledezma MD Complications: Intolera nce Delivery Location:[facility] ( LABOR AND DELIVERY) 2022 Term 39w [...] - Increase reliability General Yes Praful Orozco, WATER TREATMENT OPERATOR, MORTGAGE COLLECTOR Note: Goal identified during: Initial Screening Status: [...] in two weeks to review her [facility] goals and get a status [...] GOLD PLUS Routine 02/29/2024 4:15 PM CDT DEPUTY SHERIFF LIEUTENANT THIN PREP PAP SCREEN IMAGED Routine 07/01/2023 3:00 PM CDT GC CHLAMYDIA TRACH PROBE Routine 09/21/2022 1:00 PM SALOON KEEPER Cramping affecting , antepartum ANTI HIV 1/2 Routine 09/11/2020 8:23 AM SALOON KEEPER Encounter for supervision of normal first in first trimester ANTI HCV Routine 09/11/2020 8:23 AM SALOON KEEPER Encounter for supervision of normal first in first trimester from Last 3 Months or Most Recently Relevant to Health Maintenance Results * QFT MITOGEN PERFORMABLE (02/29/2024 4:15 PM CDT) MITOGEN 10.00 IU/mL 03/02/2024 12:58 PM CDT [facility] Blood BLOOD SPECIMEN / Unknown Client Collect / Unknown 02/29/2024 4:15 PM CDT 03/01/2024 9:47 PM CDT Comfort Platt NP CHEMISTRY Performing Organization Address City/[facility] Co de Phone Number [facility] [address] [place] [address], [place] * QFT TB2 PERFORMABLE (02/29/2024 4:15 PM CDT) TB2 0.02 IU/mL 03/02/2024 11:32 AM CDT [facility] Blood BLOOD SPECIMEN / Unknown Client Collect / Unknown 02/29/2024 4:15 PM CDT 03/01/2024 9:47 PM CDT Comfort Platt NP CHEMISTRY Performing Organization Address [facility] Co de Phone Number [facility] [address] [place] [address], [place] * QFT TB1 PERFORMABLE (02/29/2024 4:15 PM CDT) TB1 0.00 IU/mL 03/02/2024 11:33 AM CDT [facility] Blood BLOOD SPECIMEN / Unknown Client Collect / Unknown 02/29/2024 4:15 PM CDT 03/01/2024 9:47 PM CDT Comfort Platt NP CHEMISTRY Performing Organization Address [facility] Co de Phone Number [facility] [address] [place] [address], [place] * QUANTIFERON TB GOLD PLUS (02/29/2024 4:15 PM CDT) QFTP NIL 0.00 03/02/2024 2:53 PM CDT [facility] TB1 0.00 IU/mL 03/02/2024 2:53 PM CDT [facility] TB2 0.02 IU/mL 03/02/2024 2:53 PM CDT [facility] MITOGEN 10.00 IU/mL 03/02/2024 2:53 PM CDT [facility] QFTP TB AG1 - NIL 0.00 024 2:53 PM CDT [facility] TB1-NIL % OF NIL 03/02/20 2:53 PM CDT [facility] Comment:Unable to calculate QFTP TB AG2 - NIL 0.02 024 2:53 PM CDT [facility] TB2-NIL % OF NIL 03/02/20 2:53 PM CDT [facility] Comment:Unable to calculate QFTP MITOGEN - NIL 10.00 2023 2:53 PM CDT [facility] QFTP QUANTIFERON INTERPRETATION Negative Negative 03/02/2024 2:53 PM CDT [facility] Blood BLOOD SPECIMEN / Unknown Client Collect / Unknown 02/29/2024 4:15 PM CDT 03/01/2024 9:47 PM CDT [facility] - 03/02/2024 2:53 PM CDT [...] old. - women Comfort Platt NP CHEMISTRY [facility] [address] [place] [address], * DEPUTY SHERIFF LIEUTENANT THIN PREP PAP SCREEN IMAGED (07/01/2023 3:00 PM CDT) Case Report Gynecologic Cytology Report ? Case: [id number] ? Authorizing Provider: ??Denise Fry, LIBERAL ARTS TEACHER ?? Collected: ? 07/01/2023 1500 ? Ordering Location: ? [facility] ?Received: ?07/05/2023 1303 ? First Screen: ?Ino Enriquez ? Specimen: ?DEPUTY SHERIFF LIEUTENANT ThinPrep Vial Screening, Cervical ? 07/12/2023 9:32 AM CDT [facility] INTERPRETATION/ RESULT NEGATIVE FOR INTRAEPITHELIAL LESION OR MALIGNANCY (NIL) (none) 07/12/2023 9:32 AM CDT [facility] IMEN ADEQUACY Satisfactory for evaluation Endocervical component present Scant cellularity 07/12/2023 9:32 AM CDT [facility] HPV REQUEST HPV not requested 10/03/ 2023 9:32 AM CDT [facility] Date of LMP 06/15/2023 07/12/2023 9:32 AM CDT [facility] Last Pap Result First Pap/Unknown 9:32 AM CDT [facility] Abnormal Pap or Conklin Bx in last 5 years No 07/12/2023 9:32 AM CDT [facility] Menstrual Status Regular Periods 07/12/2023 9:32 AM CDT [facility] Conklin Bx Done Today No 07/12/2023 9:32 AM CDT [facility] Additional Information 07/12/2023 9:32 AM CDT [facility] Comment: Interpreted at [facility] - [address] [place] [id number] Automated Review Successful 07/12/2023 9:32 AM CDT [facility] Comment:Specimen processed s uccessfully by automated junior programmer analyst device, ThinPrep Imaging System, [employer] Note The pap test is a [...] and malignant lesions. 07/12/2023 9:32 AM CDT [facility] Other (Cervical) 07/01/2023 3:00 PM CDT 07/05/2023 1:03 PM CDT Denise Fry NP PATHOLOGY/CYTOLOG [facility] [address] [place] [address], * GC CHLAMYDIA TRACH PROBE (09/21/2022 1:00 PM SALOON KEEPER) CHLAMYDIA PROBE Negative 5:24 PM SALOON KEEPER [facility] N GONORRHOEAE PROBE Negative 09/22/2022 5:24 PM SALOON KEEPER [facility] Other VAGINAL SWAB / Unknown Non-Blood / Unknown 09/21/2022 1:00 PM SALOON KEEPER 09/21/2022 1:49 PM SALOON KEEPER Deborah Senior NP MICROBIOLOGY Performing Organization Address City/[facility]/ZIP Co de Phone Number [facility] [address] [place] [address], [place] * ANTI HCV (09/11/2020 8:23 AM SALOON KEEPER) HEPATITIS C ANTIBODY Non-React kamran Non-React kamran 09/11/2020 12:51 PM SALOON KEEPER [facility] Comment:Antibodies to HCV no t detected; does not exclude the possibility of exposure to HCV. Blood BLOOD SPECIMEN / Unknown Butterfly / Unknown 09/11/2020 8:23 AM SALOON KEEPER 09/11/2020 8:24 AM SALOON KEEPER Kira Turner DO SEND OUTS Performing Organization Address [facility] Co de Phone Number [facility] [address] [place] [address], [place] * ANTI HIV 1/2 (09/11/2020 8:23 AM SALOON KEEPER) Pathologist [facility] HIV-1/HIV-2 ANTIBODY Non-Reacti ve Non-Reacti ve 09/11/2020 12:38 PM SALOON KEEPER [facility] Comment:HIV-1 p24 and HIV-1/ HIV-2 Ab not detected. Blood BLOOD SPECIMEN / Unknown Butterfly / Unknown 09/11/2020 8:23 AM SALOON KEEPER 09/11/2020 8:24 AM SALOON KEEPER Kira Turner DO SEND OUTS [facility] [address] [place] [address], [place] from Last 3 Months or Most [...] 3:46 PM 08/18/2016 1:40 PM Care Teams Malted Milk Masher Relationship Specialty Start Date End Date Staff, Other Clinical . PCP - General 06/05/23
[2024-04-30] MEDS: 0.9 % SODIUM CHLORIDE 1000 ml 1,000 ML IV (21:15)
[2024-04-30 21:26] LABS: Basophils Absolute Auto 0.04 K/uL (0.00-0.30); Basophils Percent Auto 0.4 % (0.0-3.0); Eosinophils Absolute Auto 0.08 K/uL (0.00-0.50); Eosinophils Percent Auto 0.9 % (0.0-7.0); Hematocrit 41.1 % (33.0-51.0); Hemoglobin* 13.1 gm/dL (12.0-16.0); Immature Granulocytes Abs Auto 0.01 K/uL (0.00-0.30); Immature Granulocytes Pct Auto 0.1 %; Lymphocytes Percent Auto 13.5 % (20-44); Mean Corpuscular HGB Conc 32 gm/dL (32-36); Mean Corpuscular Hemoglobin 27 pg (26-34); Mean Corpuscular Volume 85 fL (80-100); Monocytes Percent Auto 4.8 % (0.0-11.0); Neutrophils Percent Auto 80.3 % (42.0-72.0); Platelet Count* 232 K/uL (140-440); RDW Coefficient of Variation % 13.3 % (11.5-15.5); Red Blood Count 4.85 m/uL (4.00-5.20); White Blood Count* 9.28 K/uL (4.50-11.00)
[2024-04-30 21:35] LABS: Slide Review Reflex No
--- NOTE | 2024-04-30 21:37 | CRLHL7_ITS ---
For Patients: As a result of the Century Cures Act, medical imaging exams and procedure reports are released immediately into your electronic medical record. You may view this report before your referring provider. If you have questions, please contact your health care provider. INDICATION: Increasing left upper quadrant abdominal pain. TECHNIQUE: CT of the abdomen and pelvis acquired with 98 cc Isovue 370 IV contrast. Coronal and sagittal reconstructions. COMPARISON: CT of the abdomen and pelvis 06/03/2023. FINDINGS: The liver, gallbladder, pancreas, and adrenal glands are negative. The spleen is enlarged measuring 13.5 cm in AP dimension. No focal splenic lesions. No biliary dilation. Hepatic and portal veins are patent. Symmetric enhancement of the kidneys. No hydronephrosis or ureteral dilation. No obstructing urinary calculi identified. No bladder wall thickening. Uterus and adnexa are unremarkable. No small bowel dilation. Moderate amount of stool in the proximal colon. The distal colon is decompressed. Negative appendix. Trace free fluid in the pelvis is likely physiologic. No intraperitoneal free air. No lymphadenopathy. The lung bases are clear. The bones are unremarkable. IMPRESSION: 1. No acute findings in the abdomen or pelvis. 2. Mild splenomegaly. Please note that all CT scans at this facility use dose modulation, iterative reconstruction, and/or weight-based dosing when appropriate to reduce radiation dose to as low as reasonably achievable. Dictated by Kiesha Dickinson MD @ 04/30/2024 10:40:48 PM (Electronically Signed)
[2024-04-30 21:38] LABS: Albumin* 4.2 g/dL (3.3-5.0); Chloride* 108 mmol/L (96-114); Sodium* 137 mmol/L (135-149)
[2024-04-30 21:39] LABS: Potassium* 3.8 mmol/L (3.6-5.1)
[2024-04-30 21:42] LABS: Alanine Aminotransferase* 15 U/L (4-35); Alkaline Phosphatase* 48 U/L (40-150); Anion Gap 8 mEq/L (7-15); Aspartate Amino Transferase* 18 U/L (12-35); Bilirubin Total* 0.4 mg/dL (0.1-1.5); Blood Urea Nitrogen* 9 mg/dL (5-24); Calcium* 9.1 mg/dL (8.4-10.6); Carbon Dioxide* 21 mmol/L (20-32); Creatinine* 0.6 mg/dL (0.5-1.5); Estimated Glomerular Filt Rate 131 ml/min; Glucose* 118 mg/dL (60-115); Total Protein* 6.8 g/dL (6.0-8.3)
[2024-04-30] MEDS: KETOROLAC 15 MG/ML inj IVP (21:45)
[2024-04-30 22:10] LABS: C Reactive Protein* < 0.5 mg/dL (0.5-1.0)
[2024-04-30 23:12] VITALS: BP 120/69; PULSE 87; RESP 18; O2SAT 99
[2024-05-02 22:58] LABS: CMV Antibody IgG <0.20 U/mL (<=0.70); CMV Antibody IgM <8.0 AU/mL (<=29.9)
[2024-05-02 22:59] LABS: EBV Ab Nuclear Ag IgG <3.0 U/mL (0.0-21.9); EBV Ab Viral Capsid Ag IgG <10.0 U/mL (0.0-21.9); EBV Ab Viral Capsid Ag IgM <10.0 U/mL (0.0-43.9); EBV Ab to Early (D) Ag IgG <5.0 U/mL (0.0-10.9)
== END 2024-04-30 23:42 | disposition home or self-care (01) ==
PROVIDERS: Emergency Provider Family Medicine; PCP Nurse Practitioner Family
DX: R10.12 Left upper quadrant pain (principal); K59.00 Constipation, unspecified; R16.1 Splenomegaly, not elsewhere classified
CPT/HCPCS: 36415; 74177; 80053; 83605; 85025; 86140; 86644; 86645; 86663; 86664; 86665; 96374; 96375; 99284; J1885; J2405; J7030; Q9967

== ENCOUNTER 2024-05-01 08:50 | Emergency (ER) | payer MEDICAID, SELFPAY ==
[2024-05-01 09:08] VITALS: BP 116/78; PULSE 81; RESP 18; TEMP 37.2; O2SAT 97; BMI 31.3
--- NOTE | 2024-05-01 09:33 | ED_ITS ---
HPI - General Adult General Chief complaint: Flank Pain Stated complaint: Adb pain, vomiting, enlarged spleen seen yesterday Time Seen by Provider: 05/01/24 09:33 History of Present Illness HPI narrative: Patient presents to the emergency department complaining of left flank pain radiating to her left shoulder. Patient states she was seen yesterday and instructed to return if she was experiencing increased pain and/or vomiting . Patient states she has vomited this morning around 0730. 23-year-old young woman presenting to the emergency department with concern of abdominal pain with increasing left shoulder pain as well. Was instructed after evaluation yesterday to return if vomiting or increasing pain both of which have occurred now. She had trouble sleeping overnight due to pain. She has not had any fever. Recently with CT imaging showing a constipation and imaging also noting mild splenomegaly of unclear etiology. Pending are EBV and CMV titers. Related Data Home Medications ?Medication ?Instructions ?Recorded ?Confirmed valacyclovir 500 mg tablet 500 mg PO DAILY 05/10/23 05/29/24 (Valtrex) ascorbic acid (vitamin C) 1,000 mg 1 g PO Q6H 06/28/23 05/29/24 tablet ferrous sulfate 325 mg (65 mg 325 mg PO QDAY 06/28/23 05/29/24 iron) tablet (Iron (ferrous sulfate)) Previous Rx's ?Medication ?Instructions ?Recorded albuterol sulfate 90 mcg/actuation 2 puff inhalation Q4-6H PRN 08/30/23 aerosol inhaler shortness of breath or wheezing #8.5 grams esomeprazole magnesium 40 mg 40 mg PO QDAY #90 caps 05/29/24 capsule,delayed release (Nexium) Allergies Allergy/AdvReac Type Severity Reaction Status Date / Time tea tree Allergy Mild Verified 05/29/24 13:55 adhesive Allergy Rash Verified 05/29/24 13:55 lamotrigine [From Lamictal] Allergy Verified 05/29/24 13:55 Review of Systems Status of ROS: Reports: 6 or more systems reviewed and unremarkable except as noted in History and below [facility] Medical History Iron deficiency anemia ?D50.9 - Iron deficiency anemia, unspecified (ICD-10) Constipation ?K59.00 - Constipation, unspecified (ICD-10) Heterozygous MTHFR mutation C677T ?Z15.89 - Genetic susceptibility to other disease (ICD-10) GERD (gastroesophageal reflux disease) ?K21.9 - Gastro-esophageal reflux disease without esophagitis (ICD-10) Genital HSV ?A60.00 - Herpesviral infection of urogenital system, unspecified (ICD-10) Mild intermittent asthma ?J45.20 - Mild intermittent asthma, uncomplicated (ICD-10) Depression, recurrent ?F33.9 - Major depressive disorder, recurrent, unspecified (ICD-10) Generalized anxiety disorder ?F41.1 - Generalized anxiety disorder (ICD-10) IUD (intrauterine device) in place ?Z97.5 - Presence of (intrauterine) contraceptive device (ICD-10) PTSD (post-traumatic stress disorder) ?F43.10 - Post-traumatic stress disorder, unspecified (ICD-10) Eclampsia ?O15.9 - Eclampsia, unspecified as to time period (ICD-10) Migraines ?G43.909 - Migraine, unspecified, not intractable, without status migrainosus (ICD-10) Surgical History Status post bilateral salpingectomy ?Z90.79 - Acquired absence of other genital organ(s) (ICD-10) Family History Maternal Grandfather Heart disease Father Depression Anxiety Alcohol dependence Drug dependence Paternal Grandmother Anxiety Depression Mother Anxiety Depression Diabetes Alcohol dependence Drug dependence Maternal Grandmother Preeclampsia Paternal Grandfather Anxiety Depression Alcohol dependence Eczema Social History Narrative: . 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 No alcohol. No illicit drug use. What is your current living situation?: I presently have a place to live Problems where you live: no known problems In the past 12 months, utilities in danger of being shut off: no In past 12 months, lack of transportation kept you from medical appts, meetings, work, or getting things needed for daily living: no In the past 12 mos, have been you worried that your food would run out before you had money to buy more?: never true In the past 12 mos, the food you bought just didn't last and you didn't have money to buy more?: never true Smoking Status: Current every day smoker What tobacco products do you use: cigarettes Do you use any of these nicotine containing products: None Second hand tobacco smoke exposure: Yes How often do you have a drink containing alcohol: never How often do you have six or more drinks on one occasion: Never AUDIT-C Alcohol total score: 0 Non-prescribed substance use: denies use Caffeine: Yes How often does anyone, including family, friends and others, physically hurt you : never How often does anyone, including family, friends and others, insult or talk down to you: never How often does anyone, including family, friends and others, threaten you with harm: never How often does anyone, including family, friends and others, scream or curse at you: never Little interest or pleasure in doing things: not at all Feeling down, depressed, or hopeless: more than half the days service: No Exam Narrative: Exam Narrative: Breathing easily. Appears little uncomfortable. Mildly anxious. Skin is warm and dry. No rashes. Well-perfused peripherally. Heart in regular rate and rhythm. Breathing easily. Abdomen is soft. Tender across the upper abdomen and little in the flank without peritoneal signs Const: Vital Signs, click to edit/add: Vital Signs - 24 hr 05/01/24 09:08 Temperature 99.0 F Pulse Rate [Right Pulse Oximeter] 81 Respiratory Rate 18 Blood Pressure [Ri ght Upper Arm] 116/78 Pulse Oximetry 97 Oxygen Delivery Me thod Room Air Documenting provider has reviewed patient's vital signs: yes Course Vital Signs Vital signs: Initial Vital Signs Temperature 99.0 F 05/01/24 09:08 Temperature Source Temporal Artery Scan 05/01/24 09:08 Pulse Rate 81 05/01/24 09:08 Pulse Rhythm Regular 05/01/24 09:08 Pulse Strength 3+ Normal 05/01/24 09:08 Respiratory Rate 18 05/01/24 09:08 Blood Pressure 116/78 05/01/24 09:08 Blood Pressure Mean 90 05/01/24 09:08 Blood Pressure Position Sitting 05/01/24 09:08 Pulse Oximetry 97 05/01/24 09:08 Oxygen Delivery Method Room Air 05/01/24 09:08 Vital Signs Temperature 99.0 F 05/01/24 09:08 Pulse Rate 81 05/01/24 09:08 Respiratory Rate 18 05/01/24 09:08 Blood Pressure 116/78 05/01/24 09:08 Pulse Oximetry 97 05/01/24 09:08 Oxygen Delivery Method Room Air 05/01/24 09:08 Temperature 99.0 F 05/01/24 09:08 Pulse Rate 81 05/01/24 09:08 Respiratory Rate 18 05/01/24 09:08 Blood Pressure 116/78 05/01/24 09:08 Pulse Oximetry 97 05/01/24 09:08 Oxygen Delivery Method Room Air 05/01/24 09:08 Medical Decision Making MDM Narrative Medical decision making narrative: Presents here due to recommendations for follow-up. Does not appear to be much worse than prior. Understandably concerned. Had extensive evaluation already. Would consider rechecking labs for progression of disease. With reported increased pain can do a limited abdominal ultrasound as well to look for any evidence of bleed or rapid enlargement, cyst or clot perhaps, ascites. Does not have urinary tract symptoms. Does not feel the that needs treatment otherwise. Labs are reassuring. Ultrasound as discussed with chief fishery division is similar to imaging yesterday. INDICATION: Increased abdominal pain COMPARISON: CT 06.03.23 TECHNIQUE: Real time rand scale imaging and color Doppler analysis was performed of the spleen. FINDINGS: Spleen measures 11.2 cm. No splenic mass. No ascites. IMPRESSION: Spleen measures 11.2 cm. Titers are still pending. Continue to monitor for this. Otherwise continue recommendations as per last visit. See patient discharge plan for further discussion Medical Records Medical records reviewed: Yes I reviewed the patient's medical records Lab Data Lab results reviewed: Yes I reviewed the patient's lab results Labs: Lab Results 05/01/24 Range/Units 10:05 WBC 5.01 (4.50-11.00) K/uL RBC 4.75 (4.00-5.20) m/uL Hgb 12.9 (12.0-16.0) gm/dL Hct 40.4 (33.0-51.0) % MCV 85 (80-100) fL MCH 27 (26-34) pg MCHC 32 (32-36) gm/dL RDW Coeff of [place]ini 13.4 (11.5-15.5) % Plt Count 209 (140-440) K/uL Neut % (Auto) 70.4 (42.0-72.0) % Lymph % (Auto) 21.2 (20-44) % [place] % (Auto) 5.0 (0.0-11.0) % Eos % (Auto) 2.4 (0.0-7.0) % Baso % (Auto) 0.8 (0.0-3.0) % Neut # (Auto) 3.53 (1.7-7.0) K/uL Lymph # (Auto) 1.06 (0.90-2.90) K/uL [place] # (Auto) 0.30 (0.00-0.90) K/UL Eos # (Auto) 0.12 (0.00-0.50) K/uL Baso # (Auto) 0.04 (0.00-0.30) K/uL Abs Immat Gran (auto) 0.01 (0.00-0.30) K/uL Imm/Tot Granulo (auto) 0.2 % Sodium 139 (135-149) mmol/L Potassium 4.2 (3.6-5.1) mmol/L Chloride 108 (96-114) mmol/L Carbon Dioxide 25 (20-32) mmol/L Anion Gap 6 L (7-15) mEq/L BUN 7 (5-24) mg/dL Creatinine 0.7 (0.5-1.5) mg/dL Estimated Creat Clear 123.63 Estimated GFR 126 ml/min Glucose 97 (60-115) mg/dL Calcium 9.1 (8.4-10.6) mg/dL Total Bilirubin 0.5 (0.1-1.5) mg/dL Direct Bilirubin 0.2 (0.0-0.5) mg/dL AST 18 (12-35) U/L ALT 15 (4-35) U/L Alkaline Phosphatase 49 (40-150) U/L C-Reactive Protein < 0.5 L (0.5-1.0) mg/dL Total Protein 6.5 (6.0-8.3) g/dL Albumin 4.0 (3.3-5.0) g/dL Discharge Plan Discharge Clinical Impression: Left flank pain, Splenomegaly Patient Disposition: Home w/ Parent or Adult Condition: Improved Additional Instructions: This observed splenomegaly is mild. And otherwise I think you are safe. Some labs are still pending from your last visit. I would refer to Dr. Medrano's discharge instructions regarding constipation and follow-up. Zofran from [facility] if needed. Prescriptions: No Action albuterol sulfate 90 mcg/actuation HFA aerosol inhaler 2 puff inhalation Q4-6H PRN (Reason: shortness of breath or wheezing) Qty: 8.5 0RF ferrous sulfate [Iron (ferrous sulfate)] 325 mg (65 mg iron) tablet 325 mg PO QDAY ascorbic acid (vitamin C) 1,000 mg tablet 1 g PO Q6H esomeprazole magnesium [Nexium] 40 mg capsule,delayed release(DR/EC) 40 mg PO QDAY Qty: 90 0RF valacyclovir [Valtrex] 500 mg tablet 500 mg PO DAILY Follow Up/Referrals: Comfort Platt, ROLL TENSION TESTER, LIAISON ENGINEER [Primary Care Provider] - Stand Alone Forms: [facility] Info Instructions
--- NOTE | 2024-05-01 09:46 | CRLHL7_ITS ---
For Patients: As a result of the Century Cures Act, medical imaging exams and procedure reports are released immediately into your electronic medical record. You may view this report before your referring provider. If you have questions, please contact your health care provider. INDICATION: Increased abdominal pain COMPARISON: CT 06.03.23 TECHNIQUE: Real time rand scale imaging and color Doppler analysis was performed of the spleen. FINDINGS: Spleen measures 11.2 cm. No splenic mass. No ascites. IMPRESSION: Spleen measures 11.2 cm. Dictated by Ruddy Mosley MD @ 05/01/2024 11:16:29 AM (Electronically Signed)
--- OUTSIDE RECORDS SUMMARY | 2024-05-01 10:00 | XMS_ITS | Encounter Summary ---
Author Organization [facility] Address [address] [place] [address] Care Team Providers Care Regional Geodetic Advisor Name Role Phone Abbey Bagley PA-C Unavailable Unavailable Abbey Bagley PA-C Primary Care Provider Unava ilable Ino Robbins MD Unavailable Azul Gilman DO Unavailable [phone] Kelley Diane DO Unavailable [phone] Ino Robbins MD Unavailable [phone] Reason for Visit * Reason Onset Date Comments Refill Request 04/02/2021 Encounter Details Date Type Department Care Team (Late st Contact Info) Description 04/02/2021 MyC Refill Initial Department Abbey Bag[facility] PA-C [facility] Refill Request Social History Tobacco Use Types Packs/Day Years Used Date Smoking Tobacco: Every Day Cigarettes Smokeless Tobacco: Never Alcohol Use Standard Drinks/Week Comments Not Currently 0 (1 standard drink = 0.6 oz pur e alcohol) Seldom PHQ-2 Answer Date Recorded PHQ-2 Score 6 02/19/2021 Aurora Depression Scale Answer Date Recorded Aurora Depression Score 13 03/10/2021 Last EPDS Self [...] as of this encounter Care Teams Regional Geodetic Advisor Relationship Specialty Start Date End Date Abbey Bagley PA-C PCP - General Physician Electronic Warfare Technician 08/15/20 Abbey Bagley PA-C Physician Electronic Warfare Technician 04/11/20 05/02/23 Ino Robbins MD [address] [place] [address] Assigned OBGYN Provider 03/08/21 Azul Gilman DO [address] [place] [address] Assigned Heart and Vascular Provider 03/08/21 09/10/22 Kelley Diane DO [address] [facility] [address] [place] [address] Assigned OBGYN Provider 12/04/22 Ino Robbins MD [address] [place] [address] Assigned OBGYN Provider 01/01/23 documented as of this encounter
--- OUTSIDE RECORDS SUMMARY | 2024-05-01 10:00 | XMS_ITS | Referral Summary ---
Author Organization [facility] Address [address] [place] [address] Phone Care Team Providers Care Mobile Ui Designer Name Role Phone Alfred Lambert APRN, CNP Primary Care Provider [phone] Source Comments MINDBODY is fully rolled out on [employer]. Last update 03/14/09.[facility] Allergies Active Allergy Reactions Criticality Noted Date [...] (major depressive disord er), recurrent episode, moderate ([facility]) 08/19/2023 Suicidal ideation 06/09/2023 Asthma ([facility]) 06/08/2023 06/08/2023 Essential hypertension in patient (HH S) 06/08/2023 06/08/2023 Hypertension 06/08/2023 06/08/2023 Iron deficiency anemia 06/08/2023 Anxiety 06/08/2023 06/08/2023 Anxiety disorder, unspecified type 06/08/2023 Bipolar II disorder ([facility]) 05/09/2023 PTSD (post-traumatic stress disorder) 05/09/2023 Eclampsia ([facility]) 05/05/2023 06/08/2023 History of depression 05/05/2023 06/08/2023 Iron deficiency 12/23/2020 06/08/2023 Chronic GERD 01/24/2020 06/08/2023 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 Encounter for screening 02/05/2005 06/08/20 Overview: LW Onset: [id number] ; Child and Teen Check Up Needs [...] Comments Blood Pressure 116/79 11/24/2023 1:18 PM INDEPENDENT LIVING SPECIALIST Pulse 104 11/24/2023 1:18 PM INDEPENDENT LIVING SPECIALIST Temperature 36.4 ??C (97.5 ??F) 06/14/2023 9:28 AM CD T Respiratory Rate 18 06/14/2023 9:28 AM CDT Oxygen Saturation 99% 06/14/2023 9:28 AM CDT Inhaled Oxygen Concentration - - Weight 89.4 kg (197 lb) 11/24/2023 1:18 PM INDEPENDENT LIVING SPECIALIST Height 170.8 cm (5' 7.24) 06/08/2023 8:18 PM CD T Body Mass Index 30.63 06/08/2023 8:18 PM CDT Plan of Treatment Not on file Procedures Procedure Name Priority Date/Time Associated Diagnosis Comments PAP TEST Routine 07/01/2023 3:00 PM CDT HIV COMBO Routine 11/26/2022 2:16 PM INDEPENDENT LIVING SPECIALIST URINE CHLAMYDIA AND NEISSERIAE GONORRHOEAE AMPLIFICATION Routine 11/26/2022 1:42 PM INDEPENDENT LIVING SPECIALIST from Last 3 Months or Most Recently Relevant to Health Maintenance Advance Directives For more information, please contact: [phone] * Full Code (Latest Code Status on File) Date Activated Date Inactivated Comments 06/08/2023 10:12 PM 06/15/2023 1:52 PM Question Answer Comments Does the Patient have prefer ences regarding life sustaining measures (these options only apply when the patient has a pulse): No Discussed Code Status With Whom? Not discussed Care Teams Mobile Ui Designer Relationship Specialty Start Date End Date Alfred Lambert, SEED POTATO ARRANGER, DIMENSIONAL ENGINEER [address] [place] [address] PCP - General Internal Medicine 01/17/24
--- OUTSIDE RECORDS SUMMARY | 2024-05-01 10:00 | XMS_ITS | Encounter Summary ---
Author Organization [facility] Address [address] [place] [address] Phone Care Team Providers Care Door Framer Name Role Phone Alfred Lambert APRN, CNP Primary Care Provider [phone] Reason for Referral * Consult/Test/Treat (Routine) - New Request Specialty Diagnoses / Procedures Referred By Bernardo belle Referred To Contact Physical Medicine and Rehab / PHYSICAL MEDICINE AND REHAB Diagnoses POTS (postural orthostatic tachycardia syndrome) Justina Bowser APRN, CNP [address] [address] [facility] [address] [place] [address] Referral ID Status Reason Start Date Expiration Date V isits Requested Visits Authorized [id number] New Request 01/24/2024 01/23/2025 1 1 Reason for Visit * Reason Comments Follow-up Encounter Details Date Type Department Care Team (Late st Contact Info) Description 01/24/2024 3:00 PM CDT [facility] [address] [place] [address] Justina Bowser APRN, CNP [address] [address] POTS (postural orthostatic tachycardia syndrome) (Primary Dx) [...] this encounter Progress Notes * Justina Bowser, PATROL AGENT, RETAIL MERCHANDISING SPECIALIST - 01/24/2024 3:00 PM CDT Images from [...] Previous cardiovascular evaluation I personally reviewed today: [facility] TRANSTHORACIC ECHO (TTE) (01/17/2024 13:01) [...] very pleasant patient. Justina Bowser APRN, [facility] [address] 01/24/2024 14:42 CC: Alfred [...] not prevent her from receiving futurecare at [facility]. - Patient acknowledges risks of telemedicine and agrees to follow provider's recommendations. Patient consents to this service: Yes. Patient's Physical Location: Home Provider's Physical Location: Onsite at [facility] Participants in this Telemedicine Visit other [...] Total Score: 7 08/22/20 23 11:05 AM CHAPLAIN PHQ-2 Depression Total Score: 2 08/22/20 23 11:05 AM CHAPLAIN documented as of this encounter Care Teams Door Framer Relationship Specialty Start Date End Date Alfred Lambert APRN, CNP [address] [address] PCP - General Internal Medicine 01/17/24 documented as of this encounter
--- OUTSIDE RECORDS SUMMARY | 2024-05-01 10:00 | XMS_ITS | Encounter Summary ---
Author Organization [facility] Address [address] [facility] [place] [address] Care Team Providers Care Material Chaser Name Role Phone Abbey Bagley PA-C Unavailable Unavailable Abbey Bagley PA-C Primary Care Provider Unava ilable Ino Robbins MD Unavailable [phone] Azul Gilman DO Unavailable [phone] Kelley Diane DO Unavailable [phone] Ino Robbins MD Unavailable [phone] Encounter Details Date Type Department Care Team (Late st Contact Info) Description 04/07/2021 MyC Medical Advice [facility] [address] [place] [phone] Ino Robbins MD [address] [place] [address] Social History Tobacco Use Types Packs/Day Years Used Date Smoking Tobacco: Every Day Cigarettes Smokeless Tobacco: Never Alcohol Use Standard Drinks/Week Comments Not Currently 0 (1 standard drink = 0.6 oz pur e alcohol) Seldom PHQ-2 Answer Date Recorded PHQ-2 Score 6 02/19/2021 Erin Depression Scale Answer Date Recorded Erin Depression Score 13 03/10/2021 Last EPDS Self [...] documented as of this encounter Care Teams Material Chaser Relationship Specialty Start Date End Date Abbey Bagley PA-C PCP - General Physician Innovation Analyst 08/15/20 Abbey Bagley PA-C Physician Innovation Analyst 04/11/20 05/02/23 Ino Robbins MD [address] [place] [address] Assigned OBGYN Provider 03/08/21 Azul Gilman DO [address] [place] [address] Assigned Heart and Vascular Provider 03/08/21 09/10/22 Kelley Diane DO [address] [place] [address] Assigned OBGYN Provider 12/04/22 Ino Robbins MD [address] [place] [address] Assigned OBGYN Provider 01/01/23 documented as of this encounter
--- OUTSIDE RECORDS SUMMARY | 2024-05-01 10:00 | XMS_ITS | Referral Summary ---
Author Organization [facility] Address [address] [facility] [place] [address] Care Team Providers Care Shaker Operator Name Role Phone Abbey Bagley PA-C [...] Answer Date Recorded PHQ-2 Score 0 04/14/2023 [place] Depression Scale Answer Date Recorded Last EPDS [...] ANTIGEN ANTIBODY COMBO Routine 11/26/2022 2:16 PM SECURITY ASSURANCE SPECIALIST Encounter for supervision of other normal in second trimester HEPATITIS C ANTIBODY Routine 11/26/2022 2:16 PM SECURITY ASSURANCE SPECIALIST Encounter for supervision of other normal in second trimester CHLAMYDIA TRACHOMATIS PCR Routine 11/26/2022 1:42 PM SECURITY ASSURANCE SPECIALIST Screen for STD (sexually transmitted disease) from Last 3 Months or Most Recently Relevant to Health Maintenance Results * HIV Antigen Antibody Combo (11/26/2022 2:16 PM SECURITY ASSURANCE SPECIALIST) HIV Antigen Antibody Combo Nonreactive Nonreactive 11/27/2022 2:46 PM SECURITY ASSURANCE SPECIALIST [facility] C[facility]/PROT/EN DO Comment:HIV-1 p24 Ag & HIV-1 /HIV-2 Ab Not Detected Blood BLOOD SPECIMEN / Unknown Venipuncture / Unknown 11/26/2022 2:16 PM SECURITY ASSURANCE SPECIALIST 11/26/2022 2:28 PM SECURITY ASSURANCE SPECIALIST Kelley Diane DO LAB - BLOOD ORDER BROOKE [facility] SPECIAL[facility] CORE/PROT/ENDO UM Specialty Core/Prot/Endo [address] [facility], [address] [phone] * Hepatitis C antibody (11/26/2022 2:16 PM SECURITY ASSURANCE SPECIALIST) Pathologist [facility] [place] Hepatitis C Antibody Nonreactive Nonreactive 11/27/2022 2:46 PM SECURITY ASSURANCE SPECIALIST SPECIALTY CORE/PROT/EN DO Blood BLOOD SPECIMEN / Unknown Venipuncture / Unknown 11/26/2022 2:16 PM SECURITY ASSURANCE SPECIALIST 11/26/2022 2:28 PM SECURITY ASSURANCE SPECIALIST Narrative SPECIALTY CORE/PROT/ENDO - 11/27/2022 2:46 PM SECURITY ASSURANCE SPECIALIST Assay performance characteristics have not been established for newborns, infants, and children. Kelley Diane DO LAB - BLOOD ORDER BROOKE SPECIALTY CORE/PROT/ENDO Specialty Core/Prot/Endo [address] [facility], [address] [place] [address], [facility] [phone] * CHLAMYDIA TRACHOMATIS PCR (11/26/2022 1:42 PM SECURITY ASSURANCE SPECIALIST) Pathologist [facility] [place] Chlamydia trachomatis Negative Negative 11/27/2022 12:55 PM SECURITY ASSURANCE SPECIALIST [facility] Comment:A negative result by missing persons investigator mediated amplification does not preclude the presence of C. trachomatis infection because results are dependent on proper and adequate collection, absence of inhibitors and sufficient rRNA to be detected. Swab CERVIX UTERI STRUCTURE / Unknown Non-blood Collection / Unknown 11/26/2022 1:42 PM SECURITY ASSURANCE SPECIALIST 11/26/2022 3:02 PM SECURITY ASSURANCE SPECIALIST Kelley Diane DO LAB - MICRO GENER AL ORDERABLES [facility] Inf. Diseases Diag. Lab [address] [facility], [address] [place] [address], [facility] [phone] from Last 3 Months or Most Recently Relevant to Health Maintenance Advance Directives For more information, please contact: [phone] * Full Code (Latest Code Status on [...] aisha nt/ legal decision maker Care Teams Shaker Operator Relationship Specialty Start Date End Date Abbey Bagley PA-C PCP - General Physician Management Expert 08/15/20 Ino Robbins MD [address] [place] [address] Assigned OBGYN Provider 01/01/23
--- OUTSIDE RECORDS SUMMARY | 2024-05-01 10:00 | XMS_ITS | Clinical Summary ---
Author Organization [facility] Address [address] [facility] [place] [address] Care Team Providers Care It Technical Architect Name Role Phone Abbey Bagley PA-C Primary Care Provider Ino Ken MD Unavailable [phone] Allergies No known active allergies Medications Medication [...] Answer Date Recorded PHQ-2 Score 0 04/14/2023 [place] Depression Scale Answer Date Recorded Last EPDS [...] ANTIGEN ANTIBODY COMBO Routine 11/26/2022 2:16 PM DIRECTOR ONCOLOGY Encounter for supervision of other normal in second trimester HEPATITIS C ANTIBODY Routine 11/26/2022 2:16 PM DIRECTOR ONCOLOGY Encounter for supervision of other normal in second trimester CHLAMYDIA TRACHOMATIS PCR Routine 11/26/2022 1:42 PM DIRECTOR ONCOLOGY Screen for STD (sexually transmitted disease) from Last 3 Months or Most Recently Relevant to Health Maintenance Results * HIV Antigen Antibody Combo (11/26/2022 2:16 PM DIRECTOR ONCOLOGY) HIV Antigen Antibody Combo Nonreactive Nonreactive 11/27/2022 2:46 PM DIRECTOR ONCOLOGY [facility]/PROT/EN DO Comment:HIV-1 p24 Ag & HIV-1 /HIV-2 Ab Not Detected Blood BLOOD SPECIMEN / Unknown Venipuncture / Unknown 11/26/2022 2:16 PM DIRECTOR ONCOLOGY 11/26/2022 2:28 PM DIRECTOR ONCOLOGY Kelley Diane DO LAB - BLOOD ORDER BROOKE [facility] SPECIALTY CORE/PROT/ENDO UM Specialty Core/Prot/Endo [address] [facility] [address] Building, [address] [phone] * Hepatitis C antibody (11/26/2022 2:16 PM DIRECTOR ONCOLOGY) Hepatitis C Antibody Nonreactive Nonreactive 11/27/2022 2:46 PM DIRECTOR ONCOLOGY [facility] SPECIAL[facility] CORE/PROT/EN DO Blood BLOOD SPECIMEN / Unknown Venipuncture / Unknown 11/26/2022 2:16 PM DIRECTOR ONCOLOGY 11/26/2022 2:28 PM DIRECTOR ONCOLOGY Narrative SPECIALTY CORE/PROT/ENDO - 11/27/2022 2:46 PM DIRECTOR ONCOLOGY Assay performance characteristics have not been established for newborns, infants, and children. Kelley Diane DO LAB - BLOOD ORDER BROOKE SPECIALTY CORE/PROT/ENDO Specialty Core/Prot/Endo [address] [facility], [address] [place], [place] [address] [phone] * CHLAMYDIA TRACHOMATIS PCR (11/26/2022 1:42 PM DIRECTOR ONCOLOGY) Chlamydia trachomatis Negative Negative 11/27/2022 12:55 PM DIRECTOR ONCOLOGY [facility] Comment:A negative result by film splicer mediated amplification does not preclude the presence of C. trachomatis infection because results are dependent on proper and adequate collection, absence of inhibitors and sufficient rRNA to be detected. Swab CERVIX UTERI STRUCTURE / Unknown Non-blood Collection / Unknown 11/26/2022 1:42 PM DIRECTOR ONCOLOGY 11/26/2022 3:02 PM DIRECTOR ONCOLOGY Kelley Diane DO LAB - MICRO GENER AL ORDERABLES [facility] Inf. Diseases Diag. Lab [address] [facility], [address] [place] [address], [facility] [phone] from Last 3 Months or Most Recently Relevant to Health Maintenance Advance Directives For more information, please contact: [phone] * Full Code (Latest Code Status on [...] aisha nt/ legal decision maker Care Teams It Technical Architect Relationship Specialty Start Date End Date Abbey Bagley PA-C PCP - General Physician Project Geophysicist 08/15/20 Ino Robbins MD [address] [place] [address] Assigned OBGYN Provider 01/01/23
--- OUTSIDE RECORDS SUMMARY | 2024-05-01 10:00 | XMS_ITS | Encounter Summary ---
Author Organization [facility] Address [facility] [place] [address] Care Team Providers Care Floral Department Specialist Name Role Phone Abbey Bagley PA-C Unavailable Unavailable Abbey Bagley PA-C Primary Care Provider Kelley Ko DO Unavailable [phone] Ino Robbins MD Unavailable [phone] Encounter Details Date Type Department Care Team (Late st Contact Info) Description 11/22/2022 [facility] Medical Advice [address] [place] [address] Di Sher RN Social History Tobacco Use Types Packs/Day Years Used Date Smoking Tobacco: Every Day Cigarettes Smokeless Tobacco: Never Alcohol Use Standard Drinks/Week Comments Not Currently 0 (1 standard drink = 0.6 oz pur e alcohol) Seldom PHQ-2 Answer Date Recorded PHQ-2 Score 2 11/26/2022 [place] Depression Scale Answer Date Recorded [place] Depression Score 13 03/10/2021 Last EPDS [...] Coronavirus/COVID-19? No / Unsure 11/17/2022 6:32 PM BAKERY MACHINE MECHANIC SUPERVISOR documented as of this encounter Plan of Treatment Not on file documented as of this encounter Visit Diagnoses Not on filedocumented in this encounter Additional Health Concerns Assessment Noted Time PHQ-9 Depression Total Score: 19 021 3:52 PM CDT documented as of this encounter Care Teams Floral Department Specialist Relationship Specialty Start Date End Date Abbey Bagley PA-C PCP - General Physician Elevator Mechanic Apprentice 08/15/20 Abbey Bagley PA-C Physician Elevator Mechanic Apprentice 04/11/20 05/02/23 Kelley Diane DO [address] [address] Assigned OBGYN Provider 12/04/22 Ino Robbins MD [address] [place] [address] Assigned OBGYN Provider 01/01/23 documented as of this encounter
--- OUTSIDE RECORDS SUMMARY | 2024-05-01 10:00 | XMS_ITS | Clinical Summary ---
Author Organization [facility] Address [address] [place] [address] Phone Care Team Providers Care Substance Abuse Services Director Name Role Phone Alfred Lambert APRN, CNP Primary Care Provider [phone] Source Comments [employer] is fully rolled out on [employer]. Last update 03/14/09.[facility] Allergies Active Allergy Reactions Criticality Noted Date [...] (major depressive disord er), recurrent episode, moderate ([facility]) 08/19/2023 Suicidal ideation 06/09/2023 Asthma ([facility]) 06/08/2023 06/08/2023 Essential hypertension in patient (HH S) 06/08/2023 06/08/2023 Hypertension 06/08/2023 06/08/2023 Iron deficiency anemia 06/08/2023 Anxiety 06/08/2023 06/08/2023 Anxiety disorder, unspecified type 06/08/2023 Bipolar II disorder ([facility]) 05/09/2023 PTSD (post-traumatic stress disorder) 05/09/2023 Eclampsia ([facility]) 05/05/2023 06/08/2023 History of depression 05/05/2023 06/08/2023 Iron deficiency 12/23/2020 06/08/2023 Chronic GERD 01/24/2020 06/08/2023 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 Encounter for screening 02/05/2005 06/08/20 Overview: LW Onset: [id number] ; Child and Teen Check Up Needs [...] Comments Blood Pressure 116/79 11/24/2023 1:18 PM DISTRICT RANGER Pulse 104 11/24/2023 1:18 PM DISTRICT RANGER Temperature 36.4 ??C (97.5 ??F) 06/14/2023 9:28 AM CD T Respiratory Rate 18 06/14/2023 9:28 AM CDT Oxygen Saturation 99% 06/14/2023 9:28 AM CDT Inhaled Oxygen Concentration - - Weight 89.4 kg (197 lb) 11/24/2023 1:18 PM DISTRICT RANGER Height 170.8 cm (5' 7.24) 06/08/2023 8:18 [...] CDT HIV COMBO Routine 11/26/2022 2:16 PM DISTRICT RANGER URINE CHLAMYDIA AND NEISSERIAE GONORRHOEAE AMPLIFICATION Routine 11/26/2022 1:42 PM DISTRICT RANGER from Last 3 Months or Most Recently Relevant to Health Maintenance Advance Directives For more information, please contact: [phone] * Full Code (Latest Code Status on File) Date Activated Date Inactivated Comments 06/08/2023 10:12 PM 06/15/2023 1:52 PM Question Answer Comments Does the Patient have prefer ences regarding life sustaining measures (these options only apply when the patient has a pulse): No Discussed Code Status With Whom? Not discussed Care Teams Substance Abuse Services Director Relationship Specialty Start Date End Date Alfred Lambert, MAGAZINE EDITOR, INTERIOR SPECIALIST [address] [place] [address] PCP - General Internal Medicine 01/17/24
--- OUTSIDE RECORDS SUMMARY | 2024-05-01 10:00 | XMS_ITS | Encounter Summary ---
Author Organization [facility] Address [address] [facility] [place] [address] Care Team Providers Care Gear Milling Machine Set Up Operator Name Role Phone Abbey Bagley PA-C Unavailable Unavailable bAbey Bagley PA-C Primary Care Provider Kelley Ko DO Unavailable [phone] Ino Robbins MD Unavailable Encounter Details Date Type Department Care Team (Late st Contact Info) Description 12/07/2022 [facility] Medical Advice [facility] [address] [place] [phone] Diana Rainey, RN Social History Tobacco Use Types Packs/Day Years Used Date Smoking Tobacco: Some Days Cigarettes Smokeless Tobacco: Never Alcohol Use Standard Drinks/Week Comments Not Currently 0 (1 standard drink = 0.6 oz pur e alcohol) Seldom PHQ-2 Answer Date Recorded PHQ-2 Score 2 11/26/2022 [place] Depression Scale Answer Date Recorded [place] Depression Score 13 03/10/2021 Last EPDS Self [...] Coronavirus/COVID-19? No / Unsure 11/26/2022 1:26 PM PAYROLL SUPERVISOR documented as of this encounter Plan of Treatment Not on file documented as of this encounter Visit Diagnoses Not on filedocumented in this encounter Additional Health Concerns Assessment Noted Time PHQ-9 Depression Total Score: 19 021 3:52 PM CDT documented as of this encounter Care Teams Gear Milling Machine Set Up Operator Relationship Specialty Start Date End Date Abbey Bagley PA-C PCP - General Physician Brine Plant Operator 08/15/20 Abbey Bagley PA-C Physician Brine Plant Operator 04/11/20 05/02/23 Kelley Diane DO [address] [address] Assigned OBGYN Provider 12/04/22 Ino Robbins MD [address] [place] [address] Assigned OBGYN Provider 01/01/23 documented as of this encounter
--- OUTSIDE RECORDS SUMMARY | 2024-05-01 10:00 | XMS_ITS | Encounter Summary ---
Author Organization [facility] Address [facility] [place] [address] Care Team Providers Care Gift Packer Name Role Phone Abbey Bagley PA-C Unavailable Unavailable Abbey Bagley PA-C Primary Care Provider Kelley Ko DO Unavailable Ino Robbins MD Unavailable Encounter Details Date Type Department Care Team (Late st Contact Info) Description 11/23/2022 [facility] Medical Advice [address] [place] [address] Di Sher RN Social History Tobacco Use Types Packs/Day Years Used Date Smoking Tobacco: Some Days Cigarettes Smokeless Tobacco: Never Alcohol Use Standard Drinks/Week Comments Not Currently 0 (1 standard drink = 0.6 oz pur e alcohol) Seldom PHQ-2 Answer Date Recorded PHQ-2 Score 2 11/26/2022 [place] Depression Scale Answer Date Recorded [place] Depression Score 13 03/10/2021 Last EPDS Self [...] Coronavirus/COVID-19? No / Unsure 11/26/2022 1:26 PM MERCHANDISE PRESENTATION MANAGER documented as of this encounter Plan of Treatment Not on file documented as of this encounter Visit Diagnoses Not on filedocumented in this encounter Additional Health Concerns Assessment Noted Time PHQ-9 Depression Total Score: 19 021 3:52 PM CDT documented as of this encounter Care Teams Gift Packer Relationship Specialty Start Date End Date Abbey Bagley PA-C PCP - General Physician Drafter Plumbing 08/15/20 Abbey Bagley PA-C Physician Drafter Plumbing 04/11/20 05/02/23 Kelley Diane DO [address] [address] Assigned OBGYN Provider 12/04/22 Ino Robbins MD [address] [place] [address] Assigned OBGYN Provider 01/01/23 documented as of this encounter
--- OUTSIDE RECORDS SUMMARY | 2024-05-01 10:00 | XMS_ITS | Encounter Summary ---
Author Organization [facility] Address [address] [facility] [place] [address] Care Team Providers Care Octave Board Assembler Name Role Phone Abbey Bagley PA-C Unavailable Unavailable Abbey Bagley PA-C Primary Care Provider Unava ilable Ino Robbins MD Unavailable Reason for Visit * Reason Onset Date Comments Care 04/26/2023 Encounter Details Date Type Department Care Team (Late st Contact Info) Description 04/26/2023 MyC Medical Advice [facility] [address] [place] [phone] Ino Robbins MD [address] [place], [place] [phone] Care Social History Tobacco Use Types Packs/Day Years Used Date Smoking Tobacco: Former Cigarettes Q uit: 03/10/2023 Passive Smoke Exposure: Never Smokeless Tobacco: Never Alcohol Use Standard Drinks/Week Comments Not Currently 0 (1 standard drink = 0.6 oz pur e alcohol) Seldom PHQ-2 Answer Date Recorded PHQ-2 Score 0 04/14/2023 [place] Depression Scale Answer Date Recorded [place] Depression Score 13 03/10/2021 Last EPDS Self [...] documented as of this encounter Care Teams Octave Board Assembler Relationship Specialty Start Date End Date Abbey Bagley PA-C PCP - General Physician Enrollment Services Dean 08/15/20 Abbey Bagley PA-C Physician Enrollment Services Dean 04/11/20 05/02/23 Ino Robbins MD [address] [place] [address] Assigned OBGYN Provider 01/01/23 documented as of this encounter
--- OUTSIDE RECORDS SUMMARY | 2024-05-01 10:01 | XMS_ITS | Clinical Summary ---
Author Organization [employer] Address [place], [place] [address] Care Team Providers Care Access Registrar Name Role Phone Staff, Other Clinical Primary [...] Department Care Team Description 03/01/2024 Lab Requisition [facility] [phone] Comfort Platt, OPERATIONS MANAGER ASSISTANT from Last 3 Months Immunizations Name Administration Dates Next Due COVID-19 vaccine (AcuFocus-Bio NTech 30mcg/0.3mL) [place]ER 2021 DTaP 05/23/2007, 7,08/27/2004,08/27,2002,2002 [id number] (Pediarix) 07/16/2004,07/16/2004 HIB PRP-OMP (PedvaxHIB) 07/16/2004 HIB [...] Austin Ledezma MD Complications: Intolera nce Delivery Location:[facility] ( LABOR AND DELIVERY) 2022 Term [...] - Increase reliability General Yes Praful Orozco, AUTOMOBILE CONTRACT CLERK, DIRECTOR TRAFFIC AND PLANNING Note: Goal identified during: Initial Screening Status: [...] follow-up in two weeks to review her [facility] goals and get a status update on [...] GOLD PLUS Routine 02/29/2024 4:15 PM CDT TROLLEY OPERATOR THIN PREP PAP SCREEN IMAGED Routine 07/01/2023 3:00 PM CDT GC CHLAMYDIA TRACH PROBE Routine 09/21/2022 1:00 PM DISASTER RECOVERY MANAGER Cramping affecting , antepartum ANTI HIV 1/2 Routine 09/11/2020 8:23 AM DISASTER RECOVERY MANAGER Encounter for supervision of normal first in first trimester ANTI HCV Routine 09/11/2020 8:23 AM DISASTER RECOVERY MANAGER Encounter for supervision of normal first in first trimester from Last 3 Months or Most Recently Relevant to Health Maintenance Results * QFT MITOGEN PERFORMABLE (02/29/2024 4:15 PM CDT) MITOGEN 10.00 IU/mL 03/02/2024 12:58 PM CDT [facility] Blood BLOOD SPECIMEN / Unknown Client Collect / Unknown 02/29/2024 4:15 PM CDT 03/01/2024 9:47 PM CDT Comfort Platt NP CHEMISTRY Performing Organization Address City/[facility] Co de Phone Number [facility] [address] [place] [address], [place] * QFT TB2 PERFORMABLE (02/29/2024 4:15 PM CDT) TB2 0.02 IU/mL 03/02/2024 11:32 AM CDT [facility] Blood BLOOD SPECIMEN / Unknown Client Collect / Unknown 02/29/2024 4:15 PM CDT 03/01/2024 9:47 PM CDT Comfort Platt NP CHEMISTRY Performing Organization Address [facility] Co de Phone Number [facility] [address] [place] [address], [place] * QFT TB1 PERFORMABLE (02/29/2024 4:15 PM CDT) TB1 0.00 IU/mL 03/02/2024 11:33 AM CDT [facility] Blood BLOOD SPECIMEN / Unknown Client Collect / Unknown 02/29/2024 4:15 PM CDT 03/01/2024 9:47 PM CDT Comfort Platt NP CHEMISTRY Performing Organization Address [facility] Co de Phone Number [facility] [address] [place] [address], [place] * QUANTIFERON TB GOLD PLUS (02/29/2024 4:15 PM CDT) QFTP NIL 0.00 03/02/2024 2:53 PM CDT [facility] TB1 0.00 IU/mL 03/02/2024 2:53 PM CDT [facility] TB2 0.02 IU/mL 03/02/2024 2:53 PM CDT [facility] MITOGEN 10.00 IU/mL 03/02/2024 2:53 PM CDT [facility] QFTP TB AG1 - NIL 0.00 024 2:53 PM CDT [facility] TB1-NIL % OF NIL 03/02/20 2:53 PM CDT [facility] Comment:Unable to calculate QFTP TB AG2 - NIL 0.02 024 2:53 PM CDT [facility] TB2-NIL % OF NIL 03/02/20 2:53 PM CDT [facility] Comment:Unable to calculate QFTP MITOGEN - NIL 10.00 2023 2:53 PM CDT [facility] QFTP QUANTIFERON INTERPRETATION Negative Negative 03/02/2024 2:53 PM CDT [facility] Blood BLOOD SPECIMEN / Unknown Client Collect / Unknown 02/29/2024 4:15 PM CDT 03/01/2024 9:47 PM CDT [facility] - 03/02/2024 2:53 PM CDT M. [...] old. - women Comfort Platt NP CHEMISTRY [facility] [address] [place] [address], * TROLLEY OPERATOR THIN PREP PAP SCREEN IMAGED (07/01/2023 3:00 PM CDT) Case Report Gynecologic Cytology Report ? Case: [id number] ? Authorizing Provider: ??Denise Fry, OPERATIONS MANAGER ASSISTANT ?? Collected: ? 07/01/2023 1500 ? Ordering Location: ? [facility] ?Received: ?07/05/2023 1303 ? First Screen: ?Ino Enriquez ? Specimen: ?TROLLEY OPERATOR ThinPrep Vial Screening, Cervical ? 07/12/2023 9:32 AM CDT [facility] LABORAT[facility]-C ENTRAL LABORATORY INTERPRETATION/ RESULT NEGATIVE FOR INTRAEPITHELIAL LESION OR MALIGNANCY (NIL) (none) 07/12/2023 9:32 AM CDT [facility] EN[facility]AL LABORATORY IMEN ADEQUACY Satisfactory for evaluation Endocervical component present Scant cellularity 07/12/2023 9:32 AM CDT [facility] ENTRAL LABORATORY HPV REQUEST HPV not requested 10/03/ 2023 9:32 AM CDT [facility] Date of LMP 06/15/2023 07/12/2023 9:32 AM CDT [facility] Last Pap Result First Pap/Unknown 9:32 AM CDT [facility] Abnormal Pap or Traer Bx in last 5 years No 07/12/2023 9:32 AM CDT [facility] Menstrual Status Regular Periods 07/12/2023 9:32 AM CDT [facility] EN[facility] Traer Bx Done Today No 07/12/2023 9:32 AM CDT [facility] Additional Information 07/12/2023 9:32 AM CDT [facility] Comment: Interpreted at [facility] - [address] [place] [id number] Automated Review Successful 07/12/2023 9:32 AM CDT [facility] Comment:Specimen processed s uccessfully by automated punch press feeder device, ThinPrep Imaging System, [employer] Note The pap test is a [...] and malignant lesions. 07/12/2023 9:32 AM CDT [facility] Other (Cervical) 07/01/2023 3:00 PM CDT 07/05/2023 1:03 PM CDT Denise Fry NP PATHOLOGY/CYTOLOG Y [facility] [address] [place] [address], * GC CHLAMYDIA TRACH PROBE (09/21/2022 1:00 PM DISASTER RECOVERY MANAGER) CHLAMYDIA PROBE Negative 5:24 PM DISASTER RECOVERY MANAGER [facility] TRAL LABORATORY N GONORRHOEAE PROBE Negative 09/22/2022 5:24 PM DISASTER RECOVERY MANAGER [facility] TR[facility] Other VAGINAL SWAB / Unknown Non-Blood / Unknown 09/21/2022 1:00 PM DISASTER RECOVERY MANAGER 09/21/2022 1:49 PM DISASTER RECOVERY MANAGER Deborah Senior NP MICROBIOLOGY Performing Organization Address City/[facility]/ZIP Co de Phone Number [facility] [address] [place] [address], [place] * ANTI HCV (09/11/2020 8:23 AM DISASTER RECOVERY MANAGER) HEPATITIS C ANTIBODY Non-React kamran Non-React kamran 09/11/2020 12:51 PM DISASTER RECOVERY MANAGER [facility] TR[facility] Comment:Antibodies to HCV no t detected; does not exclude the possibility of exposure to HCV. Blood BLOOD SPECIMEN / Unknown Butterfly / Unknown 09/11/2020 8:23 AM DISASTER RECOVERY MANAGER 09/11/2020 8:24 AM DISASTER RECOVERY MANAGER Kira Turner DO SEND OUTS Performing Organization Address [facility] Co de Phone Number [facility] [address] [place] [address], [place] * ANTI HIV 1/2 (09/11/2020 8:23 AM DISASTER RECOVERY MANAGER) Pathologist [facility] HIV-1/HIV-2 ANTIBODY Non-Reacti ve Non-Reacti ve 09/11/2020 12:38 PM DISASTER RECOVERY MANAGER [facility] Comment:HIV-1 p24 and HIV-1/ HIV-2 Ab not detected. Blood BLOOD SPECIMEN / Unknown Butterfly / Unknown 09/11/2020 8:23 AM DISASTER RECOVERY MANAGER 09/11/2020 8:24 AM DISASTER RECOVERY MANAGER Kira Turner DO SEND OUTS [facility] [address] [place] [address], [place] from Last 3 Months or Most [...] 3:46 PM 08/18/2016 1:40 PM Care Teams Access Registrar Relationship Specialty Start Date End Date Staff, Other Clinical . PCP - General 06/05/23
[2024-05-01 10:16] LABS: Basophils Absolute Auto 0.04 K/uL (0.00-0.30); Basophils Percent Auto 0.8 % (0.0-3.0); Eosinophils Absolute Auto 0.12 K/uL (0.00-0.50); Eosinophils Percent Auto 2.4 % (0.0-7.0); Hematocrit 40.4 % (33.0-51.0); Hemoglobin* 12.9 gm/dL (12.0-16.0); Immature Granulocytes Abs Auto 0.01 K/uL (0.00-0.30); Immature Granulocytes Pct Auto 0.2 %; Lymphocytes Absolute Auto 1.06 K/uL (0.90-2.90); Lymphocytes Percent Auto 21.2 % (20-44); Mean Corpuscular HGB Conc 32 gm/dL (32-36); Mean Corpuscular Hemoglobin 27 pg (26-34); Mean Corpuscular Volume 85 fL (80-100); Neutrophils Absolute Auto 3.53 K/uL (1.7-7.0); Neutrophils Percent Auto 70.4 % (42.0-72.0); Platelet Count* 209 K/uL (140-440); RDW Coefficient of Variation % 13.4 % (11.5-15.5); Red Blood Count 4.75 m/uL (4.00-5.20); White Blood Count* 5.01 K/uL (4.50-11.00)
[2024-05-01 10:24] LABS: Slide Review Reflex No
[2024-05-01 10:27] LABS: Chloride* 108 mmol/L (96-114)
[2024-05-01 10:28] LABS: Potassium* 4.2 mmol/L (3.6-5.1); Sodium* 139 mmol/L (135-149)
[2024-05-01 10:30] LABS: Anion Gap 6 mEq/L (7-15); Aspartate Amino Transferase* 18 U/L (12-35); Bilirubin Direct* 0.2 mg/dL (0.0-0.5); Bilirubin Total* 0.5 mg/dL (0.1-1.5); Blood Urea Nitrogen* 7 mg/dL (5-24); Carbon Dioxide* 25 mmol/L (20-32); Creatinine* 0.7 mg/dL (0.5-1.5); Est. Creatinine Clearance* 123.63; Estimated Glomerular Filt Rate 126 ml/min
[2024-05-01 10:31] LABS: Alanine Aminotransferase* 15 U/L (4-35); Alkaline Phosphatase* 49 U/L (40-150); Calcium* 9.1 mg/dL (8.4-10.6); Glucose* 97 mg/dL (60-115)
[2024-05-01 10:35] LABS: C Reactive Protein* < 0.5 mg/dL (0.5-1.0)
[2024-05-01 10:42] LABS: Total Protein* 6.5 g/dL (6.0-8.3)
== END 2024-05-01 11:46 | disposition home or self-care (01) ==
PROVIDERS: Emergency Provider Family Medicine; PCP Nurse Practitioner Family
DX: R10.9 Unspecified abdominal pain (principal); R16.1 Splenomegaly, not elsewhere classified
CPT/HCPCS: 36415; 76705; 80048; 80076; 81001; 85025; 86140; 87631; 96374; 96375; 99284

== ENCOUNTER 2024-05-07 10:43 | Outpatient (CLI) | payer MEDICAID, SELFPAY ==
--- OUTSIDE RECORDS SUMMARY | 2024-05-07 10:46 | XMS_ITS | Encounter Summary ---
Author Organization [place] Address [address] [facility] [place] [address] Care Team Providers Care Cord Maker Name Role Phone Abbey Bagley PA-C Unavailable Unavailable Abbey Bagley PA-C Primary Care Provider Kelley Ko DO Unavailable Ino Robbins MD Unavailable Encounter Details Date Type Department Care Team (Late st Contact Info) Description 12/07/2022 [facility] Medical Advice [facility] [address] [place] [phone] Diana Rainey, RN Social History Tobacco Use Types Packs/Day Years Used Date Smoking Tobacco: Some Days Cigarettes Smokeless Tobacco: Never Alcohol Use Standard Drinks/Week Comments Not Currently 0 (1 standard drink = 0.6 oz pur e alcohol) Seldom PHQ-2 Answer Date Recorded PHQ-2 Score 2 11/26/2022 [place] Depression Scale Answer Date Recorded [place] Depression Score 13 03/10/2021 Last EPDS Self [...] Coronavirus/COVID-19? No / Unsure 11/26/2022 1:26 PM RECRUIT INSTRUCTOR documented as of this encounter Plan of Treatment Not on file documented as of this encounter Visit Diagnoses Not on filedocumented in this encounter Additional Health Concerns Assessment Noted Time PHQ-9 Depression Total Score: 19 021 3:52 PM CDT documented as of this encounter Care Teams Cord Maker Relationship Specialty Start Date End Date Abbey Bagley PA-C PCP - General Physician Enrollment Services Vice President 08/15/20 Abbey Bagley PA-C Physician Enrollment Services Vice President 04/11/20 05/02/23 Kelley Diane DO [address] [address] Assigned OBGYN Provider 12/04/22 Ino Robbins MD [address] [place] [address] Assigned OBGYN Provider 01/01/23 documented as of this encounter
--- OUTSIDE RECORDS SUMMARY | 2024-05-07 10:46 | XMS_ITS | Encounter Summary ---
Author Organization [place] Address [address] [facility] [place] [address] Care Team Providers Care Hand Shaper Name Role Phone Abbey Bagley PA-C Unavailable Unavailable Abbey Bagley PA-C Primary Care Provider Unava ilable Ino Robbins MD Unavailable Reason for Visit * Reason Onset Date Comments Care 04/26/2023 Encounter Details Date Type Department Care Team (Late st Contact Info) Description 04/26/2023 [facility] Medical Advice [facility] [address] [place] [phone] Ino Robbins MD [address] [place], [place] [phone] Care Social History Tobacco Use Types Packs/Day Years Used Date Smoking Tobacco: Former Cigarettes Q uit: 03/10/2023 Passive Smoke Exposure: Never Smokeless Tobacco: Never Alcohol Use Standard Drinks/Week Comments Not Currently 0 (1 standard drink = 0.6 oz pur e alcohol) Seldom PHQ-2 Answer Date Recorded PHQ-2 Score 0 04/14/2023 [place] Depression Scale Answer Date Recorded [place] Depression Score 13 03/10/2021 Last EPDS Self [...] documented as of this encounter Care Teams Hand Shaper Relationship Specialty Start Date End Date Abbey Bagley PA-C PCP - General Physician Gasoline Power Shovel Operator 08/15/20 Abbey Bagley PA-C Physician Gasoline Power Shovel Operator 04/11/20 05/02/23 Ino Robbins MD [address] [place] [address] Assigned OBGYN Provider 01/01/23 documented as of this encounter
--- OUTSIDE RECORDS SUMMARY | 2024-05-07 10:46 | XMS_ITS | Referral Summary ---
Author Organization [place] Address [address] [facility] [place] [address] Care Team Providers Care Tile Helper Name Role Phone Abbey Bagley PA-C Primary [...] Answer Date Recorded PHQ-2 Score 0 04/14/2023 [place] Depression Scale Answer Date Recorded Last EPDS [...] ANTIGEN ANTIBODY COMBO Routine 11/26/2022 2:16 PM DRY STARCH SUPERVISOR Encounter for supervision of other normal in second trimester HEPATITIS C ANTIBODY Routine 11/26/2022 2:16 PM DRY STARCH SUPERVISOR Encounter for supervision of other normal in second trimester CHLAMYDIA TRACHOMATIS PCR Routine 11/26/2022 1:42 PM DRY STARCH SUPERVISOR Screen for STD (sexually transmitted disease) from Last 3 Months or Most Recently Relevant to Health Maintenance Results * HIV Antigen Antibody Combo (11/26/2022 2:16 PM DRY STARCH SUPERVISOR) HIV Antigen Antibody Combo Nonreactive Nonreactive 11/27/2022 2:46 PM DRY STARCH SUPERVISOR [facility] DO Comment:HIV-1 p24 Ag & HIV-1 /HIV-2 Ab Not Detected Blood BLOOD SPECIMEN / Unknown Venipuncture / Unknown 11/26/2022 2:16 PM DRY STARCH SUPERVISOR 11/26/2022 2:28 PM DRY STARCH SUPERVISOR Kelley Diane DO LAB - BLOOD ORDER [facility]/ENDO [facility]Prot[facility]Endo [address] [facility], [address] [phone] * Hepatitis C antibody (11/26/2022 2:16 PM DRY STARCH SUPERVISOR) Pathologist [facility] Hepatitis C Antibody Nonreactive Nonreactive 11/27/2022 2:46 PM DRY STARCH SUPERVISOR SPECIALTY CORE/PROT/EN DO Blood BLOOD SPECIMEN / Unknown Venipuncture / Unknown 11/26/2022 2:16 PM DRY STARCH SUPERVISOR 11/26/2022 2:28 PM DRY STARCH SUPERVISOR Narrative SPECIALTY CORE/PROT/ENDO - 11/27/2022 2:46 PM DRY STARCH SUPERVISOR Assay performance characteristics have not been established for newborns, infants, and children. Kelley Diane DO LAB - BLOOD ORDER [place] SPECIAL[facility] CORE/PROT/ENDO Specialty Core/Prot/Endo [address] [facility], [address] [place] [address], [facility] [phone] * CHLAMYDIA TRACHOMATIS PCR (11/26/2022 1:42 PM DRY STARCH SUPERVISOR) Pathologist [facility] Chlamydia trachomatis Negative Negative 11/27/2022 12:55 PM DRY STARCH SUPERVISOR [facility] Comment:A negative result by die finisher forging mediated amplification does not preclude the presence of C. trachomatis infection because results are dependent on proper and adequate collection, absence of inhibitors and sufficient rRNA to be detected. Swab CERVIX UTERI STRUCTURE / Unknown Non-blood Collection / Unknown 11/26/2022 1:42 PM DRY STARCH SUPERVISOR 11/26/2022 3:02 PM DRY STARCH SUPERVISOR Kelley Diane DO LAB - MICRO GENER AL ORDERABLES [facility] Inf. Diseases Diag. Lab [address] [facility] [place] [address], [facility] [phone] from Last 3 Months or Most Recently Relevant to Health Maintenance Advance Directives For more information, please contact: [phone] * Full Code (Latest Code Status on [...] aisha nt/ legal decision maker Care Teams Tile Helper Relationship Specialty Start Date End Date Abbey Bagley PA-C PCP - General Physician Psychiatric Nursing Assistant 08/15/20 Ino Robbins MD [address] [place] [address] Assigned OBGYN Provider 01/01/23
--- OUTSIDE RECORDS SUMMARY | 2024-05-07 10:46 | XMS_ITS | Encounter Summary ---
Author Organization [place] Address [facility] [place] [address] Care Team Providers Care Leather Toggler Name Role Phone Abbey Bagley PA-C Unavailable Unavailable Abbey Bagley PA-C Primary Care Provider Kelley Ko DO Unavailable [phone] Ino Robbins MD Unavailable [phone] Encounter Details Date Type Department Care Team (Late st Contact Info) Description 11/23/2022 [facility] Medical Advice [address] [place] [address] Di Sher RN Social History Tobacco Use Types Packs/Day Years Used Date Smoking Tobacco: Some Days Cigarettes Smokeless Tobacco: Never Alcohol Use Standard Drinks/Week Comments Not Currently 0 (1 standard drink = 0.6 oz pur e alcohol) Seldom PHQ-2 Answer Date Recorded PHQ-2 Score 2 11/26/2022 [place] Depression Scale Answer Date Recorded [place] Depression Score 13 03/10/2021 Last EPDS Self [...] Coronavirus/COVID-19? No / Unsure 11/26/2022 1:26 PM COAGULATING BATH OPERATOR documented as of this encounter Plan of Treatment Not on file documented as of this encounter Visit Diagnoses Not on filedocumented in this encounter Additional Health Concerns Assessment Noted Time PHQ-9 Depression Total Score: 19 021 3:52 PM CDT documented as of this encounter Care Teams Leather Toggler Relationship Specialty Start Date End Date Abbey Bagley PA-C PCP - General Physician Fruit Coordinator 08/15/20 Abbey Bagley PA-C Physician Fruit Coordinator 04/11/20 05/02/23 Kelley Diane DO [address] [address] Assigned OBGYN Provider 12/04/22 Ino Robbins MD [address] [place] [address] Assigned OBGYN Provider 01/01/23 documented as of this encounter
--- OUTSIDE RECORDS SUMMARY | 2024-05-07 10:46 | XMS_ITS | Referral Summary ---
Author Organization [employer] Address [address] [place] [phone] Phone Care Team Providers Care Autos Disassembler Name Role Phone Alfred Lambert APRN, CNP Primary Care Provider Source Comments [employer] is fully rolled out on [employer]. Last update 03/14/09.[facility] Allergies Active Allergy Reactions Criticality Noted Date [...] (major depressive disord er), recurrent episode, moderate ([facility]) 08/19/2023 Suicidal ideation 06/09/2023 Asthma ([facility]) 06/08/2023 06/08/2023 Essential hypertension in patient ([facility]) 06/08/2023 06/08/2023 Hypertension 06/08/2023 06/08/2023 Iron deficiency anemia 06/08/2023 Anxiety 06/08/2023 06/08/2023 Anxiety disorder, unspecified type 06/08/2023 Bipolar II disorder ([facility]) 05/09/2023 PTSD (post-traumatic stress disorder) 05/09/2023 Eclampsia ([facility]) 05/05/2023 06/08/2023 History of depression 05/05/2023 06/08/2023 Iron deficiency 12/23/2020 06/08/2023 Chronic GERD 01/24/2020 06/08/2023 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 Encounter for screening 02/05/2005 06/08/20 Overview: LW Onset: [id number] ; Child and Teen Check Up Needs [...] Comments Blood Pressure 116/79 11/24/2023 1:18 PM DOWELER Pulse 104 11/24/2023 1:18 PM DOWELER Temperature 36.4 ??C (97.5 ??F) 06/14/2023 9:28 AM CD T Respiratory Rate 18 06/14/2023 9:28 AM CDT Oxygen Saturation 99% 06/14/2023 9:28 AM CDT Inhaled Oxygen Concentration - - Weight 89.4 kg (197 lb) 11/24/2023 1:18 PM DOWELER Height 170.8 cm (5' 7.24) 06/08/2023 8:18 PM CD T Body Mass Index 30.63 06/08/2023 8:18 PM CDT Plan of Treatment Not on file Procedures Procedure Name Priority Date/Time Associated Diagnosis Comments PAP TEST Routine 07/01/2023 3:00 PM CDT HIV COMBO Routine 11/26/2022 2:16 PM DOWELER URINE CHLAMYDIA AND NEISSERIAE GONORRHOEAE AMPLIFICATION Routine 11/26/2022 1:42 PM DOWELER from Last 3 Months or Most Recently Relevant to Health Maintenance Advance Directives For more information, please contact: [phone] * Full Code (Latest Code Status on File) Date Activated Date Inactivated Comments 06/08/2023 10:12 PM 06/15/2023 1:52 PM Question Answer Comments Does the Patient have prefer ences regarding life sustaining measures (these options only apply when the patient has a pulse): No Discussed Code Status With Whom? Not discussed Care Teams Autos Disassembler Relationship Specialty Start Date End Date Alfred Lambert, JOINERY PATTERNMAKER, STEEL ERECTOR [address] [place] [address] PCP - General Internal Medicine 01/17/24
--- OUTSIDE RECORDS SUMMARY | 2024-05-07 10:46 | XMS_ITS | Encounter Summary ---
Author Organization [place] Address [facility] [place] [address] Care Team Providers Care Paddock Judge Name Role Phone Abbey Bagley PA-C Unavailable Unavailable Abbey Bagley PA-C Primary Care Provider Kelley Ko DO Unavailable Ino Robbins MD Unavailable [phone] Encounter Details Date Type Department Care Team (Late st Contact Info) Description 11/22/2022 [facility] Medical Advice [address] [place] [address] Di Sher RN Social History Tobacco Use Types Packs/Day Years Used Date Smoking Tobacco: Every Day Cigarettes Smokeless Tobacco: Never Alcohol Use Standard Drinks/Week Comments Not Currently 0 (1 standard drink = 0.6 oz pur e alcohol) Seldom PHQ-2 Answer Date Recorded PHQ-2 Score 2 11/26/2022 [place] Depression Scale Answer Date Recorded [place] Depression Score 13 03/10/2021 Last EPDS Self [...] Coronavirus/COVID-19? No / Unsure 11/17/2022 6:32 PM PRINT LINE TAILER documented as of this encounter Plan of Treatment Not on file documented as of this encounter Visit Diagnoses Not on filedocumented in this encounter Additional Health Concerns Assessment Noted Time PHQ-9 Depression Total Score: 19 021 3:52 PM CDT documented as of this encounter Care Teams Paddock Judge Relationship Specialty Start Date End Date Abbey Bagley PA-C PCP - General Physician Cable Maintainer 08/15/20 Abbey Bagley PA-C Physician Cable Maintainer 04/11/20 05/02/23 Kelley Diane DO [address] [address] Assigned OBGYN Provider 12/04/22 Ino Robbins MD [address] [place] [address] Assigned OBGYN Provider 01/01/23 documented as of this encounter
--- OUTSIDE RECORDS SUMMARY | 2024-05-07 10:46 | XMS_ITS | Clinical Summary ---
Author Organization [place] Address [address] [facility] [place] [address] Care Team Providers Care Automotive Consultant Name Role Phone Abbey Bagley PA-C [...] Answer Date Recorded PHQ-2 Score 0 04/14/2023 [place] Depression Scale Answer Date Recorded Last EPDS [...] ANTIGEN ANTIBODY COMBO Routine 11/26/2022 2:16 PM METAL CASKET MAKER Encounter for supervision of other normal in second trimester HEPATITIS C ANTIBODY Routine 11/26/2022 2:16 PM METAL CASKET MAKER Encounter for supervision of other normal in second trimester CHLAMYDIA TRACHOMATIS PCR Routine 11/26/2022 1:42 PM METAL CASKET MAKER Screen for STD (sexually transmitted disease) from Last 3 Months or Most Recently Relevant to Health Maintenance Results * HIV Antigen Antibody Combo (11/26/2022 2:16 PM METAL CASKET MAKER) HIV Antigen Antibody Combo Nonreactive Nonreactive 11/27/2022 2:46 PM METAL CASKET MAKER [facility] DO Comment:HIV-1 p24 Ag & HIV-1 /HIV-2 Ab Not Detected Blood BLOOD SPECIMEN / Unknown Venipuncture / Unknown 11/26/2022 2:16 PM METAL CASKET MAKER 11/26/2022 2:28 PM METAL CASKET MAKER Kelley Diane DO LAB - BLOOD ORDER [facility]PROT/ENDO [facility]/Prot/Endo [address] [facility] [address] Building, Room [address] [phone] * Hepatitis C antibody (11/26/2022 2:16 PM METAL CASKET MAKER) Hepatitis C Antibody Nonreactive Nonreactive 11/27/2022 2:46 PM METAL CASKET MAKER [facility] DO Blood BLOOD SPECIMEN / Unknown Venipuncture / Unknown 11/26/2022 2:16 PM METAL CASKET MAKER 11/26/2022 2:28 PM METAL CASKET MAKER Narrative SPECIALTY CORE/PROT/ENDO - 11/27/2022 2:46 PM METAL CASKET MAKER Assay performance characteristics have not been established for newborns, infants, and children. Kelley Diane DO LAB - BLOOD ORDER [place] [facility]/PROT/ENDO Specialty Core/Prot/Endo [address] [facility], [address] [place], [place] [address] [phone] * CHLAMYDIA TRACHOMATIS PCR (11/26/2022 1:42 PM METAL CASKET MAKER) Chlamydia trachomatis Negative Negative 11/27/2022 12:55 PM METAL CASKET MAKER [facility] Comment:A negative result by clinical data associate mediated amplification does not preclude the presence of C. trachomatis infection because results are dependent on proper and adequate collection, absence of inhibitors and sufficient rRNA to be detected. Swab CERVIX UTERI STRUCTURE / Unknown Non-blood Collection / Unknown 11/26/2022 1:42 PM METAL CASKET MAKER 11/26/2022 3:02 PM METAL CASKET MAKER Kelley Diane DO LAB - MICRO GENER AL ORDERABLES [facility] Inf. Diseases Diag. Lab [address] [facility], [address] [place] [address], [facility] [phone] from Last 3 Months or Most Recently Relevant to Health Maintenance Advance Directives For more information, please contact: [phone] * Full Code (Latest Code Status on [...] aisha nt/ legal decision maker Care Teams Automotive Consultant Relationship Specialty Start Date End Date Abbey Bagley PA-C PCP - General Physician Ob/Gyn Nurse 08/15/20 Ino Robbins MD [address] [place] [address] Assigned OBGYN Provider 01/01/23
--- OUTSIDE RECORDS SUMMARY | 2024-05-07 10:46 | XMS_ITS | Clinical Summary ---
Author Organization [facility] Address [address] [place] [address] Phone Care Team Providers Care Supervisor Metal Placing Name Role Phone Alfred Lambert APRN, CNP Primary Care Provider Source Comments Bizible is fully rolled out on [employer]. Last update 03/14/09.[facility] Allergies Active Allergy Reactions Criticality Noted Date [...] (major depressive disord er), recurrent episode, moderate ([facility]) 08/19/2023 Suicidal ideation 06/09/2023 Asthma ([facility]) 06/08/2023 06/08/2023 Essential hypertension in patient ([facility]) 06/08/2023 06/08/2023 Hypertension 06/08/2023 06/08/2023 Iron deficiency anemia 06/08/2023 Anxiety 06/08/2023 06/08/2023 Anxiety disorder, unspecified type 06/08/2023 Bipolar II disorder ([facility]) 05/09/2023 PTSD (post-traumatic stress disorder) 05/09/2023 Eclampsia ([facility]) 05/05/2023 06/08/2023 History of depression 05/05/2023 06/08/2023 Iron deficiency 12/23/2020 06/08/2023 Chronic GERD 01/24/2020 06/08/2023 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 Encounter for screening 02/05/2005 06/08/20 Overview: LW Onset: [id number] ; Child and Teen Check Up Needs [...] Comments Blood Pressure 116/79 11/24/2023 1:18 PM LINOTYPER Pulse 104 11/24/2023 1:18 PM LINOTYPER Temperature 36.4 ??C (97.5 ??F) 06/14/2023 9:28 AM CD T Respiratory Rate 18 06/14/2023 9:28 AM CDT Oxygen Saturation 99% 06/14/2023 9:28 AM CDT Inhaled Oxygen Concentration - - Weight 89.4 kg (197 lb) 11/24/2023 1:18 PM LINOTYPER Height 170.8 cm (5' 7.24) 06/08/2023 8:18 [...] CDT HIV COMBO Routine 11/26/2022 2:16 PM LINOTYPER URINE CHLAMYDIA AND NEISSERIAE GONORRHOEAE AMPLIFICATION Routine 11/26/2022 1:42 PM LINOTYPER from Last 3 Months or Most Recently Relevant to Health Maintenance Advance Directives For more information, please contact: [phone] * Full Code (Latest Code Status on File) Date Activated Date Inactivated Comments 06/08/2023 10:12 PM 06/15/2023 1:52 PM Question Answer Comments Does the Patient have prefer ences regarding life sustaining measures (these options only apply when the patient has a pulse): No Discussed Code Status With Whom? Not discussed Care Teams Supervisor Metal Placing Relationship Specialty Start Date End Date Alfred Lambert, LEATHER SORTER, WIDE AREA NETWORK ADMINISTRATOR [address] [place] [id number] PCP - General Internal Medicine 01/17/24
--- OUTSIDE RECORDS SUMMARY | 2024-05-07 10:47 | XMS_ITS | Clinical Summary ---
Author Organization [facility] Address [place], [place] [address] Care Team Providers Care Superintendent Refuse Disposal Name Role Phone Staff, Other Clinical Primary [...] Department Care Team Description 03/01/2024 Lab Requisition [facility] [phone] Comfort Platt, CIGARETTE PACKING MACHINE OPERATOR from Last 3 Months Immunizations Name Administration Dates Next Due COVID-19 vaccine (Seratis-Bio NTech 30mcg/0.3mL) [place] 2021 DTaP 05/23/2007, 7,08/27/2004,08/27,2002,2002 [id number] (Pediarix) 07/16/2004,07/16/2004 HIB PRP-OMP (PedvaxHIB) 07/16/2004 HIB [...] Austin Ledezma MD Complications: Intolera nce Delivery Location:[facility] ( LABOR AND DELIVERY) 2022 Term [...] - Increase reliability General Yes Praful Orozco, MAILROOM PERSONNEL, LINE CONSTRUCTION SUPERINTENDENT Note: Goal identified during: Initial Screening Status: [...] follow-up in two weeks to review her [facility] goals and get a status update [...] GOLD PLUS Routine 02/29/2024 4:15 PM CDT FOOD PHOTOGRAPHER THIN PREP PAP SCREEN IMAGED Routine 07/01/2023 3:00 PM CDT GC CHLAMYDIA TRACH PROBE Routine 09/21/2022 1:00 PM FLOORING MACHINE FEEDER Cramping affecting , antepartum ANTI HIV 1/2 Routine 09/11/2020 8:23 AM FLOORING MACHINE FEEDER Encounter for supervision of normal first in first trimester ANTI HCV Routine 09/11/2020 8:23 AM FLOORING MACHINE FEEDER Encounter for supervision of normal first in first trimester from Last 3 Months or Most Recently Relevant to Health Maintenance Results * QFT MITOGEN PERFORMABLE (02/29/2024 4:15 PM CDT) MITOGEN 10.00 IU/mL 03/02/2024 12:58 PM CDT [facility] Blood BLOOD SPECIMEN / Unknown Client Collect / Unknown 02/29/2024 4:15 PM CDT 03/01/2024 9:47 PM CDT Comfort Paltt NP CHEMISTRY Performing Organization Address City/[facility] Co de Phone Number [facility] [address] [place] [address], [place] * QFT TB2 PERFORMABLE (02/29/2024 4:15 PM CDT) TB2 0.02 IU/mL 03/02/2024 11:32 AM CDT [facility] Blood BLOOD SPECIMEN / Unknown Client Collect / Unknown 02/29/2024 4:15 PM CDT 03/01/2024 9:47 PM CDT Comfort Platt NP CHEMISTRY Performing Organization Address [facility] Co de Phone Number [facility] [address] [place] [address], [place] * QFT TB1 PERFORMABLE (02/29/2024 4:15 PM CDT) TB1 0.00 IU/mL 03/02/2024 11:33 AM CDT [facility] Blood BLOOD SPECIMEN / Unknown Client Collect / Unknown 02/29/2024 4:15 PM CDT 03/01/2024 9:47 PM CDT Comfort Platt NP CHEMISTRY Performing Organization Address [facility] Co de Phone Number [facility] [address] [place] [address], [place] * QUANTIFERON TB GOLD PLUS (02/29/2024 4:15 PM CDT) QFTP NIL 0.00 03/02/2024 2:53 PM CDT [facility] TB1 0.00 IU/mL 03/02/2024 2:53 PM CDT [facility] TB2 0.02 IU/mL 03/02/2024 2:53 PM CDT [facility] MITOGEN 10.00 IU/mL 03/02/2024 2:53 PM CDT [facility] QFTP TB AG1 - NIL 0.00 024 2:53 PM CDT [facility] TB1-NIL % OF NIL 03/02/20 2:53 PM CDT [facility] Comment:Unable to calculate QFTP TB AG2 - NIL 0.02 024 2:53 PM CDT [facility] TB2-NIL % OF NIL 03/02/20 2:53 PM CDT [facility] Comment:Unable to calculate QFTP MITOGEN - NIL 10.00 2023 2:53 PM CDT [facility] QFTP QUANTIFERON INTERPRETATION Negative Negative 03/02/2024 2:53 PM CDT [facility] Blood BLOOD SPECIMEN / Unknown Client Collect / Unknown 02/29/2024 4:15 PM CDT 03/01/2024 9:47 PM CDT [facility] - 03/02/2024 2:53 PM CDT [...] old. - women Comfort Platt NP CHEMISTRY [facility] [address] [place] [address], * FOOD PHOTOGRAPHER THIN PREP PAP SCREEN IMAGED (07/01/2023 3:00 PM CDT) Case Report Gynecologic Cytology Report ? Case: [id number] ? Authorizing Provider: ??Denise Fry, CIGARETTE PACKING MACHINE OPERATOR ?? Collected: ? 07/01/2023 1500 ? Ordering Location: ? [facility] ?Received: ?07/05/2023 1303 ? First Screen: ?Ino Enriquez ? Specimen: ?FOOD PHOTOGRAPHER ThinPrep Vial Screening, Cervical ? 07/12/2023 9:32 AM CDT [facility] INTERPRETATION/ RESULT NEGATIVE FOR INTRAEPITHELIAL LESION OR MALIGNANCY (NIL) (none) 07/12/2023 9:32 AM CDT [facility] IMEN ADEQUACY Satisfactory for evaluation Endocervical component present Scant cellularity 07/12/2023 9:32 AM CDT [facility] HPV REQUEST HPV not requested 10/03/ 2023 9:32 AM CDT [facility] Date of LMP 06/15/2023 07/12/2023 9:32 AM CDT [facility] Last Pap Result First Pap/Unknown 9:32 AM CDT [facility] Abnormal Pap or [place] Bx in last 5 years No 07/12/2023 9:32 AM CDT [facility] Menstrual Status Regular Periods 07/12/2023 9:32 AM CDT [facility] [place] Bx Done Today No 07/12/2023 9:32 AM CDT [facility] Additional Information 07/12/2023 9:32 AM CDT [facility] Comment: Interpreted at [facility] - [address] [place] [id number] Automated Review Successful 07/12/2023 9:32 AM CDT [facility] Comment:Specimen processed s uccessfully by automated rn pool device, ThinPrep Imaging System, [employer] Note The pap test is a [...] and malignant lesions. 07/12/2023 9:32 AM CDT [facility] Other (Cervical) 07/01/2023 3:00 PM CDT 07/05/2023 1:03 PM CDT Denise Fry NP PATHOLOGY/CYTOLOG Y [facility] [address] [place] [address], * GC CHLAMYDIA TRACH PROBE (09/21/2022 1:00 PM FLOORING MACHINE FEEDER) CHLAMYDIA PROBE Negative 5:24 PM FLOORING MACHINE FEEDER [facility] N GONORRHOEAE PROBE Negative 09/22/2022 5:24 PM FLOORING MACHINE FEEDER [facility] Other VAGINAL SWAB / Unknown Non-Blood / Unknown 09/21/2022 1:00 PM FLOORING MACHINE FEEDER 09/21/2022 1:49 PM FLOORING MACHINE FEEDER Deborah Senior NP MICROBIOLOGY Performing Organization Address City/[facility]/ZIP Co de Phone Number [facility] [address] [place] [address], [place] * ANTI HCV (09/11/2020 8:23 AM FLOORING MACHINE FEEDER) HEPATITIS C ANTIBODY Non-React kamran Non-React kamran 09/11/2020 12:51 PM FLOORING MACHINE FEEDER [facility] Comment:Antibodies to HCV no t detected; does not exclude the possibility of exposure to HCV. Blood BLOOD SPECIMEN / Unknown Butterfly / Unknown 09/11/2020 8:23 AM FLOORING MACHINE FEEDER 09/11/2020 8:24 AM FLOORING MACHINE FEEDER Kira Turner DO SEND OUTS Performing Organization Address [facility] Co de Phone Number [facility] [address] [place] [address], [place] * ANTI HIV 1/2 (09/11/2020 8:23 AM FLOORING MACHINE FEEDER) Pathologist [facility] HIV-1/HIV-2 ANTIBODY Non-Reacti ve Non-Reacti ve 09/11/2020 12:38 PM FLOORING MACHINE FEEDER [facility] Comment:HIV-1 p24 and HIV-1/ HIV-2 Ab not detected. Blood BLOOD SPECIMEN / Unknown Butterfly / Unknown 09/11/2020 8:23 AM FLOORING MACHINE FEEDER 09/11/2020 8:24 AM FLOORING MACHINE FEEDER Kira Turner DO SEND OUTS [facility] [address] [place] [address], [place] from Last 3 Months or Most [...] 3:46 PM 08/18/2016 1:40 PM Care Teams Superintendent Refuse Disposal Relationship Specialty Start Date End Date Staff, Other Clinical . PCP - General 06/05/23
--- OUTSIDE RECORDS SUMMARY | 2024-05-07 10:47 | XMS_ITS | Encounter Summary ---
Author Organization [facility] Address [address] [place] [address] Care Team Providers Care Brick Chimney Supervisor Name Role Phone Abbey Bagley PA-C Unavailable Unavailable Abbey Bagley PA-C Primary Care Provider Unava ilable Ino Robbins MD Unavailable [phone] Azul Gilman DO Unavailable [phone] Kelley Diane DO Unavailable [phone] Ino Robbins MD Unavailable Reason for Visit * Reason Onset Date Comments Refill Request 04/02/2021 Encounter Details Date Type Department Care Team (Late st Contact Info) Description 04/02/2021 MyC Refill Initial Department Abbey Bagley PA-C [facility] Refill Request Social History Tobacco Use Types Packs/Day Years Used Date Smoking Tobacco: Every Day Cigarettes Smokeless Tobacco: Never Alcohol Use Standard Drinks/Week Comments Not Currently 0 (1 standard drink = 0.6 oz pur e alcohol) Seldom PHQ-2 Answer Date Recorded PHQ-2 Score 6 02/19/2021 [place] Depression Scale Answer Date Recorded [place] Depression Score 13 03/10/2021 Last EPDS Self [...] documented as of this encounter Care Teams Brick Chimney Supervisor Relationship Specialty Start Date End Date Abbey Bagley PA-C PCP - General Physician Senior Hadoop Developer 08/15/20 Abbey Bagley PA-C Physician Senior Hadoop Developer 04/11/20 05/02/23 Ino Robbins MD [address] [place] [address] Assigned OBGYN Provider 03/08/21 Azul Gilman DO [address] [place] [address] Assigned Heart and Vascular Provider 03/08/21 09/10/22 Kelley Diane DO [address] [facility] [address] [place] [address] Assigned OBGYN Provider 12/04/22 Ino Robbins MD [address] [place] [address] Assigned OBGYN Provider 01/01/23 documented as of this encounter
--- OUTSIDE RECORDS SUMMARY | 2024-05-07 10:47 | XMS_ITS | Encounter Summary ---
Author Organization [facility] Address [address] [place] [address] Care Team Providers Care Helicopter Pilot Instructor Name Role Phone Abbey Bagley PA-C Unavailable Unavailable Abeby Bagley PA-C Primary Care Provider Unava ilable Ino Robbins MD Unavailable Azul Gilman DO Unavailable [phone] Kelley Diane DO Unavailable [phone] Ino Robbins MD Unavailable [phone] Encounter Details Date Type Department Care Team (Late st Contact Info) Description 04/07/2021 MyC Medical Advice [facility] [address] [place] [phone] Ino Robbins MD [address] [place] [address] Social History Tobacco Use Types Packs/Day Years Used Date Smoking Tobacco: Every Day Cigarettes Smokeless Tobacco: Never Alcohol Use Standard Drinks/Week Comments Not Currently 0 (1 standard drink = 0.6 oz pur e alcohol) Seldom PHQ-2 Answer Date Recorded PHQ-2 Score 6 02/19/2021 [place] Depression Scale Answer Date Recorded [place] Depression Score 13 03/10/2021 Last EPDS Self [...] documented as of this encounter Care Teams Helicopter Pilot Instructor Relationship Specialty Start Date End Date Abbey Bagley PA-C PCP - General Physician Manager Health 08/15/20 Abbey Bagley PA-C Physician Manager Health 04/11/20 05/02/23 Ino Robbins MD [address] [place] [address] Assigned OBGYN Provider 03/08/21 Azul Gilman DO [address] [place] [address] Assigned Heart and Vascular Provider 03/08/21 09/10/22 Kelley Diane DO [address] [place] [address] Assigned OBGYN Provider 12/04/22 Ino Robbins MD [address] [place] [address] Assigned OBGYN Provider 01/01/23 documented as of this encounter
--- NOTE | 2024-05-07 11:00 | CRLHL7_ITS ---
For Patients: As a result of the Century Cures Act, medical imaging exams and procedure reports are released immediately into your electronic medical record. You may view this report before your referring provider. If you have questions, please contact your health care provider. INDICATION: Splenomegaly COMPARISON: CT 04/30/2024 TECHNIQUE: Real time rand scale imaging and color Doppler analysis was performed of the spleen. FINDINGS: The spleen measures 10.2 x 9.5 x 4.7 cm. No ascites. Normal visualized left kidney. Normal vascularity. IMPRESSION: The spleen measures 10.2 cm. Dictated by Ruddy Mosley MD @ 05/07/2024 11:37:08 AM (Electronically Signed)
== END 2024-05-07 10:44 | disposition home or self-care (01) ==
LOC: US 10:44
PROVIDERS: PCP Nurse Practitioner Family; Visit Provider Nurse Practitioner Family
DX: R16.1 Splenomegaly, not elsewhere classified (principal); R10.12 Left upper quadrant pain
CPT/HCPCS: 76705

== ENCOUNTER 2024-05-12 21:09 | Emergency (ER) | payer MEDICAID, SELFPAY ==
[2024-05-12 21:21] VITALS: BP 141/84; PULSE 114; RESP 20; TEMP 36.8; O2SAT 99; BMI 31.0
--- NOTE | 2024-05-12 21:26 | ED_ITS ---
HPI - General Adult General Time Seen by Provider: 21:27 Date Seen: 05/12/24 Chief complaint: Back Injury/Pain Stated complaint: chest pain into her back. Time Seen by Provider: 05/12/24 21:26 Source: patient and RN notes reviewed Mode of arrival: ambulatory Limitations: no limitations History of Present Illness HPI narrative: This 23-year-old female is coming in with a squeezing sensation in her chest that radiates into her back. This started about 3-4 days ago. It feels like it is getting worse. She maybe feels short of breath with it but she admits that she does not know if that is her anxiety. She does have significant health anxiety. She tried Maalox and stkh-ozl-msjehdq meds at home thinking it might be heartburn and did not help. She went to urgent care earlier today, reportedly had a normal chest x-ray and EKG. A GI cocktail ill helped, she was given a month's trial of omeprazole 40 mg. This was just earlier today, omeprazole would not be effective at this point. This is different than prior heartburn that she has had before. Heartburn was a burning in regurgitant sensation. She states this is different it is almost a continual squeezing type feeling, almost feels like somebody is got a rope pulling through her chest. She does have POTS, she is heterozygous for MTHFR mutation. She has not been sick with anything, no cough or cold symptoms with this. No fevers or chills. No trauma. It is not positional, movement does not change her symptoms. I did ask her if she has hydroxyzine or Vistaril at home. She states that this is not effective for her. She reportedly has done some gene testing for medicines and she is reportedly a nonresponder from what she is telling me. Her chest x-ray from earlier today showed no acute cardiopulmonary disease. The EKG from Urgent Care has not been scanned in yet, cannot see this. Related Data Home Medications ?Medication ?Instructions ?Recorded ?Confirmed valacyclovir 500 mg tablet 500 mg PO DAILY 05/10/23 05/12/24 (Valtrex) ascorbic acid (vitamin C) 1,000 mg 1 g PO Q6H 06/28/23 05/12/24 tablet ferrous sulfate 325 mg (65 mg 325 mg PO QDAY 06/28/23 05/12/24 iron) tablet (Iron (ferrous sulfate)) Previous Rx's ?Medication ?Instructions ?Recorded albuterol sulfate 90 mcg/actuation 2 puff inhalation Q4-6H PRN 08/30/23 aerosol inhaler shortness of breath or wheezing #8.5 grams omeprazole 40 mg capsule,delayed 40 mg PO QDAY 30 days #30 caps 05/12/24 release Allergies Allergy/AdvReac Type Severity Reaction Status Date / Time tea tree Allergy Mild Verified 05/12/24 11:58 adhesive Allergy Rash Verified 05/12/24 11:58 lamotrigine [From Lamictal] Allergy Verified 05/12/24 11:58 Review of Systems Status of ROS: Reports: 6 or more systems reviewed and unremarkable except as noted in History and below PFSH PFS Medical History IUD (intrauterine device) in place ?Z97.5 - Presence of (intrauterine) contraceptive device (ICD-10) PTSD (post-traumatic stress disorder) ?F43.10 - Post-traumatic stress disorder, unspecified (ICD-10) Palpitations ?R00.2 - Palpitations (ICD-10) Hypertension ?I10 - Essential (primary) hypertension (ICD-10) Eclampsia ?O15.9 - Eclampsia, unspecified as to time period (ICD-10) Anxiety, generalized ?F41.1 - Generalized anxiety disorder (ICD-10) Migraines ?G43.909 - Migraine, unspecified, not intractable, without status migrainosus (ICD-10) Seizure ?R56.9 - Unspecified convulsions (ICD-10) Surgical History Status post bilateral salpingectomy ?Z90.79 - Acquired absence of other genital organ(s) (ICD-10) Family History Maternal Grandfather Heart disease Father Depression Anxiety Alcohol dependence Drug dependence Paternal Grandmother Anxiety Depression Mother Anxiety Depression Diabetes Alcohol dependence Drug dependence Maternal Grandmother Preeclampsia Paternal Grandfather Anxiety Depression Alcohol dependence Eczema Social History Narrative: . 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 No alcohol. No illicit drug use. What is your current living situation?: I presently have a place to live Problems where you live: no known problems In the past 12 months, utilities in danger of being shut off: no In past 12 months, lack of transportation kept you from medical appts, meetings, work, or getting things needed for daily living: no In the past 12 mos, have been you worried that your food would run out before you had money to buy more?: never true In the past 12 mos, the food you bought just didn't last and you didn't have money to buy more?: never true Smoking Status: Current every day smoker What tobacco products do you use: cigarettes Do you use any of these nicotine containing products: None Second hand tobacco smoke exposure: Yes How often do you have a drink containing alcohol: never How often do you have six or more drinks on one occasion: Never AUDIT-C Alcohol total score: 0 Non-prescribed substance use: denies use Caffeine: Yes How often does anyone, including family, friends and others, physically hurt you : never How often does anyone, including family, friends and others, insult or talk down to you: never How often does anyone, including family, friends and others, threaten you with harm: never How often does anyone, including family, friends and others, scream or curse at you: never Little interest or pleasure in doing things: not at all Feeling down, depressed, or hopeless: more than half the days service: No Exam Const: Vital Signs, click to edit/add: Vital Signs - 24 hr 05/12/24 21:21 Temperature 98.2 F Pulse Rate [Left P ulse Oximeter] 114 H Respiratory Rate 20 Blood Pressure [Ri ght Upper Arm] 141/84 H Pulse Oximetry 99 Oxygen Delivery Me thod Room Air Merry is a 23-year-old female that is alert, interactive, no apparent distress. She is very pleasant and overall quite calm. She has got good eye contact, sclera clear, face atraumatic. Lungs are clear, good air entry, no wheezing or crackles. CV regular rate and rhythm no murmur, normal S1-S2, no S3-S4. Abdomen is soft, nontender, nondistended, no organomegaly, no rebound or guarding, no masses. No lower extremity edema, ambulatory into the ED of her own accord. Documenting provider has reviewed patient's vital signs: yes Course Course ED Course: Merry in I reviewed her genetic carrier status putting her at increased risk for thromboembolic disease, she states she did think of that. I do not think we need repeat basic chest imaging with a chest x-ray and she does agree. We will do labs and an EKG. I discussed with her D-dimer verses going directly to chest CT PE protocol. She would prefer to do the D-dimer and not proceed directly to chest CT imaging. There certainly are risks of radiation with this. She does have significant health anxiety and do understand that. Nonetheless, I find her quite reasonable to deal with and feel that she is not overly anxious at this time. We do not want to minimize her symptoms either and she does understand this. I believe her request to proceed with d dimer is appropriate. Will watch her on pulse oximeter and get appropriate labs. Did review that we can look at cardiac labs, look at screening D-dimer for thromboembolic disease. If our labs in EKG are normal, I may not have a definitive diagnosis as to what her symptoms are. We did talk about esophageal spasms, other musculoskeletal potential issues as well. This does not sound like pleurisy or pericarditis. Will get EKG and labs for reassurance. Reevaluation(s) Time of Reevaluation #1: 21:49 Reevaluation #1: Merry is advised that her EKG looks good and is normal, she is happy to hear that. Time of Reevaluation #2: 23:07 Reevaluation #2: Reviewed with Merry normal labs including troponin, d dimer, cbc, cmp. She is reassured. She did look up esophageal spasms and wonders if it could be that. Some of the medications that I am more familiar with for treatment of this disorder are in the class of blood pressure medications, nitroglycerin too and all can cause blood pressure issues. She isn't interested in trying these tonight given her POTS diagnosis. Vital Signs Vital signs: Initial Vital Signs Temperature 98.2 F 05/12/24 21:21 Temperature Source Temporal Artery Scan 05/12/24 21:21 Pulse Rate 114 H 05/12/24 21:21 Pulse Rhythm Regular 08/03/24 21:21 Respiratory Rate 05/12/24 21:21 Blood Pressure 141/84 H 05/12/24 21:21 Blood Pressure Mean 103 05/12/24 21:21 Blood Pressure Position Sitting 05/12/24 21:21 Pulse Oximetry 99 05/12/24 21:21 Oxygen Delivery Method Room Air 05/12/24 21:21 Vital Signs Temperature 98.2 F 05/12/24 21:21 Pulse Rate 114 H 05/12/24 21:21 Respiratory Rate 05/12/24 21:21 Blood Pressure 141/84 H 05/12/24 21:21 Pulse Oximetry 99 05/12/24 21:21 Oxygen Delivery Method Room Air 05/12/24 21:21 Temperature 98.2 F 05/12/24 21:21 Pulse Rate 114 H 05/12/24 21:21 Respiratory Rate 05/12/24 21:21 Blood Pressure 141/84 H 05/12/24 21:21 Pulse Oximetry 99 05/12/24 21:21 Oxygen Delivery Method Room Air 05/12/24 21:21 Medical Decision Making Lab Data Lab results reviewed: Yes I reviewed the patient's lab results Labs: Lab Results 05/12/24 05/12/24 Range/Units 21:36 21:51 WBC 7.65 (4.50-11.00) K/uL RBC 5.15 (4.00-5.20) m/uL Hgb 14.0 (12.0-16.0) gm/dL Hct 43.1 (33.0-51.0) % MCV 84 (80-100) fL MCH 27 (26-34) pg MCHC 33 (32-36) gm/dL RDW Coeff of [place] 13.1 (11.5-15.5) % Plt Count 220 (140-440) K/uL Neut % (Auto) 67.4 (42.0-72.0) % Lymph % (Auto) 22.7 (20-44) % [place] % (Auto) 6.3 (0.0-11.0) % Eos % (Auto) 2.7 (0.0-7.0) % Baso % (Auto) 0.8 (0.0-3.0) % Neut # (Auto) 5.15 (1.7-7.0) K/uL Lymph # (Auto) 1.74 (0.90-2.90) K/uL [place] # (Auto) 0.50 (0.00-0.90) K/UL Eos # (Auto) 0.21 (0.00-0.50) K/uL Baso # (Auto) 0.06 (0.00-0.30) K/uL Abs Immat Gran (auto) 0.01 (0.00-0.30) K/uL Imm/Tot Granulo (auto) 0.1 % D-Dimer Quant (PE/DVT) < 0.27 (0.00-0.50) ug/ml Sodium 138 (135-149) mmol/L Potassium 3.7 (3.6-5.1) mmol/L Chloride 108 (96-114) mmol/L Carbon Dioxide 21 (20-32) mmol/L Anion Gap 9 (7-15) mEq/L BUN 12 (5-24) mg/dL Creatinine 0.7 (0.5-1.5) mg/dL Estimated Creat Clear 123.63 Estimated GFR 126 ml/min Glucose 98 (60-115) mg/dL Calcium 9.3 (8.4-10.6) mg/dL Total Bilirubin 0.5 (0.1-1.5) mg/dL AST 18 (12-35) U/L ALT 13 (4-35) U/L Alkaline Phosphatase 58 (40-150) U/L Troponin I < 0.01 L (0.01-0.04) ng/mL C-Reactive Protein 0.7 (0.5-1.0) mg/dL NT-Pro-B Natriuret Pep 26 pg/mL Total Protein 7.4 (6.0-8.3) g/dL Albumin 4.6 (3.3-5.0) g/dL POC Troponin I 0.00 L (0.01-0.04) ng/ml ECG Data Attestation: I personally reviewed and interpreted this ECG as follows: (Normal sinus rhythm, 83 beats per minute. No ischemia, no infarct.) Prior ECG tracings: available for review (Compared to 11/03/2023, PVCs are no longer present on today's EKG.) Discharge Plan Discharge Clinical Impression: Atypical chest pain Patient Disposition: Home, Self-Care Condition: Stable Instructions: Chest Pain (ED), Noncardiac Chest Pain (ED) Additional Instructions: Stay on the omeprazole. Follow up with your clinic provider when she is back. I do wonder if this could be something like esophageal spasms. Activity Level: Activity as Tolerated Discharge Diet: Regular Prescriptions: No Action albuterol sulfate 90 mcg/actuation HFA aerosol inhaler 2 puff inhalation Q4-6H PRN (Reason: shortness of breath or wheezing) Qty: 8.5 0RF ferrous sulfate [Iron (ferrous sulfate)] 325 mg (65 mg iron) tablet 325 mg PO QDAY ascorbic acid (vitamin C) 1,000 mg tablet 1 g PO Q6H omeprazole 40 mg capsule,delayed release(DR/EC) 40 mg PO QDAY 30 Days Qty: 30 0RF valacyclovir [Valtrex] 500 mg tablet 500 mg PO DAILY Follow Up/Referrals: Comfort Platt, POWER REACTOR SUPERVISOR, LITHOSTRIPPER [Primary Care Provider] - Stand Alone Forms: [employer] Info Instructions
[2024-05-12 21:58] LABS: Basophils Absolute Auto 0.06 K/uL (0.00-0.30); Basophils Percent Auto 0.8 % (0.0-3.0); Eosinophils Absolute Auto 0.21 K/uL (0.00-0.50); Eosinophils Percent Auto 2.7 % (0.0-7.0); Hematocrit 43.1 % (33.0-51.0); Immature Granulocytes Abs Auto 0.01 K/uL (0.00-0.30); Immature Granulocytes Pct Auto 0.1 %; Lymphocytes Absolute Auto 1.74 K/uL (0.90-2.90); Lymphocytes Percent Auto 22.7 % (20-44); Mean Corpuscular HGB Conc 33 gm/dL (32-36); Mean Corpuscular Hemoglobin 27 pg (26-34); Mean Corpuscular Volume 84 fL (80-100); Monocytes Percent Auto 6.3 % (0.0-11.0); Neutrophils Absolute Auto 5.15 K/uL (1.7-7.0); Neutrophils Percent Auto 67.4 % (42.0-72.0); Platelet Count* 220 K/uL (140-440); RDW Coefficient of Variation % 13.1 % (11.5-15.5); Red Blood Count 5.15 m/uL (4.00-5.20); White Blood Count* 7.65 K/uL (4.50-11.00)
[2024-05-12 22:03] LABS: Slide Review Reflex No
--- OUTSIDE RECORDS SUMMARY | 2024-05-12 22:10 | XMS_ITS | Clinical Summary ---
Author Organization [facility] Address [address] [place] [id number] Phone Care Team Providers Care Freelance Translator Name Role Phone Alfred Lambert APRN, CNP Primary Care Provider Source Comments Colibri IO is fully rolled out on [employer]. Last update 03/14/09.[facility] Allergies Active Allergy Reactions Criticality Noted Date [...] (major depressive disord er), recurrent episode, moderate ([facility]) 08/19/2023 Suicidal ideation 06/09/2023 Asthma ([facility]) 06/08/2023 06/08/2023 Essential hypertension in patient ([facility]) 06/08/2023 06/08/2023 Hypertension 06/08/2023 06/08/2023 Iron deficiency anemia 06/08/2023 Anxiety 06/08/2023 06/08/2023 Anxiety disorder, unspecified type 06/08/2023 Bipolar II disorder ([facility]) 05/09/2023 PTSD (post-traumatic stress disorder) 05/09/2023 Eclampsia (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 Encounter for screening 02/05/2005 06/08/20 Overview: LW Onset: [id number] ; Child and Teen Check Up Needs [...] Comments Blood Pressure 116/79 11/24/2023 1:18 PM TOASTER ELEMENT REPAIRER Pulse 104 11/24/2023 1:18 PM TOASTER ELEMENT REPAIRER Temperature 36.4 ??C (97.5 ??F) 06/14/2023 9:28 AM CD T Respiratory Rate 18 06/14/2023 9:28 AM CDT Oxygen Saturation 99% 06/14/2023 9:28 AM CDT Inhaled Oxygen Concentration - - Weight 89.4 kg (197 lb) 11/24/2023 1:18 PM TOASTER ELEMENT REPAIRER Height 170.8 cm (5' 7.24) 06/08/2023 8:18 PM CD T Body Mass Index 30.63 06/08/2023 8:18 PM CDT Plan of Treatment Health Maintenance Due Date Last Done Comments Asthma Action Plan 2002 Asthma Control Test 2002 Dental Oral Exam 2002 Dental Prophylaxis 2002 Dental X-Ray: Bitewings 2002 Well Child Check 2005 Imm: Pneumonia Peds or At-Ri sk less than 65 years (1 of 2 - PCV) 2008 07/16/2004, 07/16/20 04, 2002, Additional history exists Periodontal Maintenance 2016 HEALTH MAINTENANCE PROTOCOL 2021 Imm: HPV (3 - 3-dose series) 01/13/2022 10/21/2021, 07/01/2020 PREVENTATIVE VISIT 10/21/2022 10/21/2021 Imm: COVID-19 ( season) 06/10/20232020, 2021 Chlamydia & Gonorrhea Screening 11/26/2023 11/26/2022, 09/21/2022, 10/21/2021, Additional history exists Depression Management 02/20/2024 08/22/2023 Imm: Flu (#1) 06/10/2024 10/21/2021, 06/11, 08/20/2008, Additional history exists Cervical Cancer Screening Ag e 21-07/01/2026 07/01/2023 Imm: DTaP/Tdap (8 - Td or Tdap) 03/30/2033 03/30/2023, 01/01/2021, 02/19/2014, Additional history exists Imm: Zoster (1 of 2) 2052 Imm: Hib Completed 07/16/2004, 2002 Imm: HepA Completed 02/19/2014, 05/23/2007 Imm: Meningitis Completed 11/27/2019, 02/19/2014 Imm: HepB Completed 07/08/2022, 04/2004, 2002, Additional history exists HIV Screening Completed 11/26/2022, 12/2019, 07/01/2020, Additional history exists Procedures Procedure Name Priority Date/Time Associated Diagnosis Comments PAP TEST Routine 07/01/2023 3:00 PM CDT HIV COMBO Routine 11/26/2022 2:16 PM TOASTER ELEMENT REPAIRER URINE CHLAMYDIA AND NEISSERIAE GONORRHOEAE AMPLIFICATION Routine 11/26/2022 1:42 PM TOASTER ELEMENT REPAIRER from Last 3 Months or Most Recently Relevant to Health Maintenance Advance Directives For more information, please contact: [phone] * Full Code (Latest Code Status on File) Date Activated Date Inactivated Comments 06/08/2023 10:12 PM 06/15/2023 1:52 PM Question Answer Comments Does the Patient have prefer ences regarding life sustaining measures (these options only apply when the patient has a pulse): No Discussed Code Status With Whom? Not discussed Care Teams Freelance Translator Relationship Specialty Start Date End Date Alfred Lambert, PERSON INVESTIGATOR, SALES REPRESENTATIVE [employer] [address] [place] [address] PCP - General Internal Medicine 01/17/24
[2024-05-12 22:11] LABS: Chloride* 108 mmol/L (96-114)
--- OUTSIDE RECORDS SUMMARY | 2024-05-12 22:11 | XMS_ITS | Clinical Summary ---
Author Organization [facility] Address [address] [facility] [place] [address] Care Team Providers Care Medical Office Assistant Name Role Phone Abbey Bagley PA-C Primary [...] Answer Date Recorded PHQ-2 Score 0 04/14/2023 [place] Depression Scale Answer Date Recorded Last EPDS [...] ANTIGEN ANTIBODY COMBO Routine 11/26/2022 2:16 PM HEAD OF MARKETING ADOMETRY Encounter for supervision of other normal in second trimester HEPATITIS C ANTIBODY Routine 11/26/2022 2:16 PM HEAD OF MARKETING ADOMETRY Encounter for supervision of other normal in second trimester CHLAMYDIA TRACHOMATIS PCR Routine 11/26/2022 1:42 PM HEAD OF MARKETING ADOMETRY Screen for STD (sexually transmitted disease) from Last 3 Months or Most Recently Relevant to Health Maintenance Results * HIV Antigen Antibody Combo (11/26/2022 2:16 PM HEAD OF MARKETING ADOMETRY) HIV Antigen Antibody Combo Nonreactive Nonreactive 11/27/2022 2:46 PM HEAD OF MARKETING ADOMETRY [facility] Comment:HIV-1 p24 Ag & HIV-1 /HIV-2 Ab Not Detected Blood BLOOD SPECIMEN / Unknown Venipuncture / Unknown 11/26/2022 2:16 PM HEAD OF MARKETING ADOMETRY 11/26/2022 2:28 PM HEAD OF MARKETING ADOMETRY Kelley Diane DO LAB - BLOOD ORDER [facility]Endo [address] [facility] [address], [address] [phone] * Hepatitis C antibody (11/26/2022 2:16 PM HEAD OF MARKETING ADOMETRY) Hepatitis C Antibody Nonreactive Nonreactive 11/27/2022 2:46 PM HEAD OF MARKETING ADOMETRY [facility] DO Blood BLOOD SPECIMEN / Unknown Venipuncture / Unknown 11/26/2022 2:16 PM HEAD OF MARKETING ADOMETRY 11/26/2022 2:28 PM HEAD OF MARKETING ADOMETRY Narrative SPECIALTY CORE/PROT/ENDO - 11/27/2022 2:46 PM HEAD OF MARKETING ADOMETRY Assay performance characteristics have not been established for newborns, infants, and children. Kelley Diane DO LAB - BLOOD ORDER [place] [facility]PROT/ENDO Specialty Core/Prot/Endo [address] [facility], [address] [place], [place] [address] [phone] * CHLAMYDIA TRACHOMATIS PCR (11/26/2022 1:42 PM HEAD OF MARKETING ADOMETRY) Chlamydia trachomatis Negative Negative 11/27/2022 12:55 PM HEAD OF MARKETING ADOMETRY [facility] Comment:A negative result by sugar mixer mediated amplification does not preclude the presence of C. trachomatis infection because results are dependent on proper and adequate collection, absence of inhibitors and sufficient rRNA to be detected. Swab CERVIX UTERI STRUCTURE / Unknown Non-blood Collection / Unknown 11/26/2022 1:42 PM HEAD OF MARKETING ADOMETRY 11/26/2022 3:02 PM HEAD OF MARKETING ADOMETRY eKlley Diane DO LAB - MICRO GENER AL ORDERABLES [facility] Inf. Diseases Diag. Lab [address] [facility] [place] [address], [facility] [phone] from Last 3 Months or Most Recently Relevant to Health Maintenance Advance Directives For more information, please contact: [phone] * Full Code (Latest Code Status on [...] aisha nt/ legal decision maker Care Teams Medical Office Assistant Relationship Specialty Start Date End Date Abbey Bagley PA-C PCP - General Physician Motor Installer 08/15/20 Ino Robbins MD [address] [place] [address] Assigned OBGYN Provider 01/01/23
--- OUTSIDE RECORDS SUMMARY | 2024-05-12 22:11 | XMS_ITS | Encounter Summary ---
Author Organization [facility] Address [address] [facility] [place] [address] Care Team Providers Care Prepress Technician Name Role Phone Abbey Bagley PA-C Unavailable Unavailable Abbey Bagley PA-C Primary Care Provider Unava ilable Ino Robbins MD Unavailable Azul Gilman DO Unavailable [phone] Kelley Diane DO Unavailable Ino Robbins MD Unavailable Encounter Details Date Type Department Care Team (Late st Contact Info) Description 04/07/2021 MyC Medical Advice [facility] [address] [place] [phone] Ino Robbins MD [address] [place] [address] Social History Tobacco Use Types Packs/Day Years Used Date Smoking Tobacco: Every Day Cigarettes Smokeless Tobacco: Never Alcohol Use Standard Drinks/Week Comments Not Currently 0 (1 standard drink = 0.6 oz pur e alcohol) Seldom PHQ-2 Answer Date Recorded PHQ-2 Score 6 02/19/2021 [place] Depression Scale Answer Date Recorded [place] Depression Score 13 03/10/2021 Last EPDS Self [...] documented as of this encounter Care Teams Prepress Technician Relationship Specialty Start Date End Date Abbey Bagley PA-C PCP - General Physician Trauma Coordinator 08/15/20 Abbey Bagley PA-C Physician Trauma Coordinator 04/11/20 05/02/23 Ino Robbins MD [address] [place] [address] Assigned OBGYN Provider 03/08/21 Azul Gilman DO [address] [place] [address] Assigned Heart and Vascular Provider 03/08/21 09/10/22 Kelley Diane DO [address] [place] [address] Assigned OBGYN Provider 12/04/22 Ino Robbnis MD [address] [place] [address] Assigned OBGYN Provider 01/01/23 documented as of this encounter
--- OUTSIDE RECORDS SUMMARY | 2024-05-12 22:11 | XMS_ITS | Referral Summary ---
Author Organization [place] Address [address] [facility] [place] [address] Care Team Providers Care Receptionist Secretary Name Role Phone Abbey Bagley PA-C Primary Care Provider Ino Ken MD Unavailable [phone] Allergies No known active allergies Medications Medication [...] Answer Date Recorded PHQ-2 Score 0 04/14/2023 [place] Depression Scale Answer Date Recorded Last EPDS [...] ANTIGEN ANTIBODY COMBO Routine 11/26/2022 2:16 PM KOHINOOR OPERATOR Encounter for supervision of other normal in second trimester HEPATITIS C ANTIBODY Routine 11/26/2022 2:16 PM KOHINOOR OPERATOR Encounter for supervision of other normal in second trimester CHLAMYDIA TRACHOMATIS PCR Routine 11/26/2022 1:42 PM KOHINOOR OPERATOR Screen for STD (sexually transmitted disease) from Last 3 Months or Most Recently Relevant to Health Maintenance Results * HIV Antigen Antibody Combo (11/26/2022 2:16 PM KOHINOOR OPERATOR) HIV Antigen Antibody Combo Nonreactive Nonreactive 11/27/2022 2:46 PM KOHINOOR OPERATOR [facility]/EN DO Comment:HIV-1 p24 Ag & HIV-1 /HIV-2 Ab Not Detected Blood BLOOD SPECIMEN / Unknown Venipuncture / Unknown 11/26/2022 2:16 PM KOHINOOR OPERATOR 11/26/2022 2:28 PM KOHINOOR OPERATOR Kelley Diane DO LAB - BLOOD ORDER [facility]/PROT/ENDO [facility] Special[facility] Core/Prot/Endo [address] [facility], [address] [phone] * Hepatitis C antibody (11/26/2022 2:16 PM KOHINOOR OPERATOR) Pathologist [facility] Hepatitis C Antibody Nonreactive Nonreactive 11/27/2022 2:46 PM KOHINOOR OPERATOR SPECIALTY CORE/PROT/EN DO Blood BLOOD SPECIMEN / Unknown Venipuncture / Unknown 11/26/2022 2:16 PM KOHINOOR OPERATOR 11/26/2022 2:28 PM KOHINOOR OPERATOR Narrative SPECIALTY CORE/PROT/ENDO - 11/27/2022 2:46 PM KOHINOOR OPERATOR Assay performance characteristics have not been established for newborns, infants, and children. Kelley Diane DO LAB - BLOOD ORDER [place] SPECIALTY CORE/PROT/ENDO Specialty Core/Prot/Endo [address] [facility], [address] [place] [address], [facility] [phone] * CHLAMYDIA TRACHOMATIS PCR (11/26/2022 1:42 PM KOHINOOR OPERATOR) Pathologist [facility] Chlamydia trachomatis Negative Negative 11/27/2022 12:55 PM KOHINOOR OPERATOR [facility] Comment:A negative result by apron operator mediated amplification does not preclude the presence of C. trachomatis infection because results are dependent on proper and adequate collection, absence of inhibitors and sufficient rRNA to be detected. Swab CERVIX UTERI STRUCTURE / Unknown Non-blood Collection / Unknown 11/26/2022 1:42 PM KOHINOOR OPERATOR 11/26/2022 3:02 PM KOHINOOR OPERATOR Kelley Diane DO LAB - MICRO GENER AL ORDERABLES [facility] Inf. Diseases Diag. Lab [address] [facility], [address] [place] [address], [facility] [phone] from Last 3 Months or Most Recently Relevant to Health Maintenance Advance Directives For more information, please contact: [phone] * Full Code (Latest Code Status on [...] aisha nt/ legal decision maker Care Teams Receptionist Secretary Relationship Specialty Start Date End Date Abbey Bagley PA-C PCP - General Physician Pantograph Ii Engraver 08/15/20 Ino Robbins MD [address] [place] [address] Assigned OBGYN Provider 01/01/23
--- OUTSIDE RECORDS SUMMARY | 2024-05-12 22:11 | XMS_ITS | Encounter Summary ---
Author Organization [place] Address [address] [place] [address] Care Team Providers Care Automotive Engineering Technician Name Role Phone Abbey Bagley PA-C Unavailable Unavailable Abbey Bagley PA-C Primary Care Provider Unava ilable Ino Robbins MD Unavailable Azul Gilman DO Unavailable [phone] Kelley Diane DO Unavailable [phone] Ino Robbins MD Unavailable [phone] Reason for Visit * Reason Onset Date Comments Refill Request 04/02/2021 Encounter Details Date Type Department Care Team (Late st Contact Info) Description 04/02/2021 MyC Refill Initial Department Abbey Bagley PA-C [facility] Refill Request Social [...] documented as of this encounter Care Teams Automotive Engineering Technician Relationship Specialty Start Date End Date Abbey Bagley PA-C PCP - General Physician Apple Turner 08/15/20 Abbey Bagley PA-C Physician Apple Turner 04/11/20 05/02/23 Ino Robbins MD [address] [place] [address] Assigned OBGYN Provider 03/08/21 Azul Gilman DO [address] [place] [address] Assigned Heart and Vascular Provider 03/08/21 09/10/22 Kelley Diane DO [address] [facility] [address] [place] [address] Assigned OBGYN Provider 12/04/22 Ino Robbins MD [address] [place] [address] Assigned OBGYN Provider 01/01/23 documented as of this encounter
--- OUTSIDE RECORDS SUMMARY | 2024-05-12 22:11 | XMS_ITS | Encounter Summary ---
Author Organization [place] Address [address] [facility] [place] [address] Care Team Providers Care Carton And Can Supply Supervisor Name Role Phone Abbey Bagley PA-C Unavailable Unavailable Abbey Bagley PA-C Primary Care Provider Kelley Ko DO Unavailable Ino Robbins MD Unavailable [phone] Encounter Details Date Type Department Care Team (Late st Contact Info) Description 12/07/2022 [facility] Medical Advice [facility] [address] [place] [phone] Diana Rainey, RN Social History Tobacco Use Types Packs/Day Years Used Date Smoking Tobacco: Some Days Cigarettes Smokeless Tobacco: Never Alcohol Use Standard Drinks/Week Comments Not Currently 0 (1 standard drink = 0.6 oz pur e alcohol) Seldom PHQ-2 Answer Date Recorded PHQ-2 Score 2 11/26/2022 [place] Depression Scale Answer Date Recorded [place] Depression Score 13 03/10/2021 Last EPDS Self [...] Coronavirus/COVID-19? No / Unsure 11/26/2022 1:26 PM MATHEMATICIAN RESEARCH documented as of this encounter Plan of Treatment Not on file documented as of this encounter Visit Diagnoses Not on filedocumented in this encounter Additional Health Concerns Assessment Noted Time PHQ-9 Depression Total Score: 19 021 3:52 PM CDT documented as of this encounter Care Teams Carton And Can Supply Supervisor Relationship Specialty Start Date End Date Abbey Bagley PA-C PCP - General Physician Bottom Loader 08/15/20 Abbey Bagley PA-C Physician Bottom Loader 04/11/20 05/02/23 Kelley Diane DO [address] [address] Assigned OBGYN Provider 12/04/22 Ino Robbins MD [address] [place] [address] Assigned OBGYN Provider 01/01/23 documented as of this encounter
--- OUTSIDE RECORDS SUMMARY | 2024-05-12 22:11 | XMS_ITS | Clinical Summary ---
Author Organization [facility] Address [place], [place] [address] Care Team Providers Care Surgical Coordinator Name Role Phone Staff, Other Clinical Primary [...] Department Care Team Description 03/01/2024 Lab Requisition [facility] [phone] Comfort Platt, LAST CHALKER from Last 3 Months Immunizations Name Administration Dates Next Due COVID-19 vaccine ([employer] 30mcg/0.3mL) [place] 2021 DTaP 05/23/2007, 7,08/27/2004,08/27,2002,2002 [id number] (Pediarix) 07/16/2004,07/16/2004 HIB PRP-OMP (PedvaxHIB) 07/16/2004 HIB [...] of Communication with Friends and Fami ly Not on file 05/11/2024 Financial Resource Strain Answer Date R ecorded [...] Ledezma MD Complications: Intolera nce Delivery Location:[facility] ( LABOR AND DELIVERY) 2022 [...] - Increase reliability General Yes Praful Orozco, MANAGER DOCUMENT, YARD JACKER Note: Goal identified during: Initial Screening Status: [...] follow-up in two weeks to review her [facility] goals and get a status update [...] GOLD PLUS Routine 02/29/2024 4:15 PM CDT DOLL WIGS HACKLER THIN PREP PAP SCREEN IMAGED Routine 07/01/2023 3:00 PM CDT GC CHLAMYDIA TRACH PROBE Routine 09/21/2022 1:00 PM ELECTRIC PILE DRIVER OPERATOR Cramping affecting , antepartum ANTI HIV 1/2 Routine 09/11/2020 8:23 AM ELECTRIC PILE DRIVER OPERATOR Encounter for supervision of normal first in first trimester ANTI HCV Routine 09/11/2020 8:23 AM ELECTRIC PILE DRIVER OPERATOR Encounter for supervision of normal first in first trimester from Last 3 Months or Most Recently Relevant to Health Maintenance Results * QFT MITOGEN PERFORMABLE (02/29/2024 4:15 PM CDT) MITOGEN 10.00 IU/mL 03/02/2024 12:58 PM CDT [facility] Blood BLOOD SPECIMEN / Unknown Client Collect / Unknown 02/29/2024 4:15 PM CDT 03/01/2024 9:47 PM CDT Comfort Platt NP CHEMISTRY Performing Organization Address City/[facility]/ZIP Co de Phone Number [facility] [address] [place] [address], [place] * QFT TB2 PERFORMABLE (02/29/2024 4:15 PM CDT) TB2 0.02 IU/mL 03/02/2024 11:32 AM CDT [facility] Blood BLOOD SPECIMEN / Unknown Client Collect / Unknown 02/29/2024 4:15 PM CDT 03/01/2024 9:47 PM CDT Comfort Platt NP CHEMISTRY Performing Organization Address [facility] Co de Phone Number [facility] [address] [place] [address], [place] * QFT TB1 PERFORMABLE (02/29/2024 4:15 PM CDT) TB1 0.00 IU/mL 03/02/2024 11:33 AM CDT [facility] Blood BLOOD SPECIMEN / Unknown Client Collect / Unknown 02/29/2024 4:15 PM CDT 03/01/2024 9:47 PM CDT Comfort Platt NP CHEMISTRY Performing Organization Address [facility] Co de Phone Number [facility] [address] [place] [address], [place] * QUANTIFERON TB GOLD PLUS (02/29/2024 4:15 PM CDT) QFTP NIL 0.00 03/02/2024 2:53 PM CDT [facility] TB1 0.00 IU/mL 03/02/2024 2:53 PM CDT [facility] TB2 0.02 IU/mL 03/02/2024 2:53 PM CDT [facility] MITOGEN 10.00 IU/mL 03/02/2024 2:53 PM CDT [facility] QFTP TB AG1 - NIL 0.00 024 2:53 PM CDT [facility] TB1-NIL % OF NIL 03/02/20 2:53 PM CDT [facility] Comment:Unable to calculate QFTP TB AG2 - NIL 0.02 024 2:53 PM CDT [facility] TB2-NIL % OF NIL 03/02/20 2:53 PM CDT [facility] Comment:Unable to calculate QFTP MITOGEN - NIL 10.00 2023 2:53 PM CDT [facility] QFTP QUANTIFERON INTERPRETATION Negative Negative 03/02/2024 2:53 PM CDT [facility] Blood BLOOD SPECIMEN / Unknown Client Collect / Unknown 02/29/2024 4:15 PM CDT 03/01/2024 9:47 PM CDT [facility] LABORATORY - 03/02/2024 2:53 PM [...] old. - women Comfort Platt NP CHEMISTRY [facility] [employer] LABORATORY-CENTRAL LABORATORY [address] [place] [address], * DOLL WIGS HACKLER THIN PREP PAP SCREEN IMAGED (07/01/2023 3:00 PM CDT) Case Report Gynecologic Cytology Report ? Case: [id number] ? Authorizing Provider: ??Denise Fry, LAST CHALKER ?? Collected: ? 07/01/2023 1500 ? Ordering Location: ? [facility] ?Received: ?07/05/2023 1303 ? First Screen: ?Ino Enriquez ? Specimen: ?DOLL WIGS HACKLER ThinPrep Vial Screening, Cervical ? 07/12/2023 9:32 AM CDT [employer] LABORAT[facility]-C ENTRAL LABORATORY INTERPRETATION/ RESULT NEGATIVE FOR INTRAEPITHELIAL LESION OR MALIGNANCY (NIL) (none) 07/12/2023 9:32 AM CDT [facility]AL LAB[facility]ATORY IMEN ADEQUACY Satisfactory for evaluation Endocervical component present Scant cellularity 07/12/2023 9:32 AM CDT [facility] EN[facility]AL LABORAT[facility] HPV REQUEST HPV not requested 2022 9:32 AM CDT [facility] Date of LMP 06/15/2023 07/12/2023 9:32 AM CDT [facility] Last Pap Result First Pap/Unknown 9:32 AM CDT [facility] Abnormal Pap or [place] Bx in last 5 years No 07/12/2023 9:32 AM CDT [facility] Menstrual Status Regular Periods 07/12/2023 9:32 AM CDT [facility] [place] Bx Done Today No 07/12/2023 9:32 AM CDT [facility] Additional Information 07/12/2023 9:32 AM CDT [facility] Comment: Interpreted at [facility] - [address] [place] [id number] Automated Review Successful 07/12/2023 9:32 AM CDT [facility] Comment:Specimen processed s uccessfully by automated thread separator device, ThinPrep Imaging System, [employer] Note The pap test is a [...] and malignant lesions. 07/12/2023 9:32 AM CDT [facility] Other (Cervical) 07/01/2023 3:00 PM CDT 07/05/2023 1:03 PM CDT Denise Fry NP PATHOLOGY/CYTOLOG Y [facility] [address] [place] [address], * GC CHLAMYDIA TRACH PROBE (09/21/2022 1:00 PM ELECTRIC PILE DRIVER OPERATOR) CHLAMYDIA PROBE Negative 5:24 PM ELECTRIC PILE DRIVER OPERATOR [facility] N GONORRHOEAE PROBE Negative 09/22/2022 5:24 PM ELECTRIC PILE DRIVER OPERATOR [facility] Other VAGINAL SWAB / Unknown Non-Blood / Unknown 09/21/2022 1:00 PM ELECTRIC PILE DRIVER OPERATOR 09/21/2022 1:49 PM ELECTRIC PILE DRIVER OPERATOR Deborah Senior NP MICROBIOLOGY Performing Organization Address City/[facility]/ZIP Co de Phone Number [facility] [address] [place] [address], [place] * ANTI HCV (09/11/2020 8:23 AM ELECTRIC PILE DRIVER OPERATOR) HEPATITIS C ANTIBODY Non-React kamran Non-React kamran 09/11/2020 12:51 PM ELECTRIC PILE DRIVER OPERATOR [facility] Comment:Antibodies to HCV no t detected; does not exclude the possibility of exposure to HCV. Blood BLOOD SPECIMEN / Unknown Butterfly / Unknown 09/11/2020 8:23 AM ELECTRIC PILE DRIVER OPERATOR 09/11/2020 8:24 AM ELECTRIC PILE DRIVER OPERATOR Kira Turner DO SEND OUTS Performing Organization Address [facility] Co de Phone Number [facility] [address] [place] [address], [place] * ANTI HIV 1/2 (09/11/2020 8:23 AM ELECTRIC PILE DRIVER OPERATOR) Pathologist [facility] HIV-1/HIV-2 ANTIBODY Non-Reacti ve Non-Reacti ve 09/11/2020 12:38 PM ELECTRIC PILE DRIVER OPERATOR [facility] Comment:HIV-1 p24 and HIV-1/ HIV-2 Ab not detected. Blood BLOOD SPECIMEN / Unknown Butterfly / Unknown 09/11/2020 8:23 AM ELECTRIC PILE DRIVER OPERATOR 09/11/2020 8:24 AM ELECTRIC PILE DRIVER OPERATOR Kira Turner DO SEND OUTS [facility] [address] [place] [address], [place] from Last 3 Months or Most [...] 3:46 PM 08/18/2016 1:40 PM Care Teams Surgical Coordinator Relationship Specialty Start Date End Date Staff, Other Clinical . PCP - General 06/05/23
--- OUTSIDE RECORDS SUMMARY | 2024-05-12 22:11 | XMS_ITS | Encounter Summary ---
Author Organization [place] Address [facility] [place] [address] Care Team Providers Care Prescriptionist Name Role Phone Abbey Bagley PA-C Unavailable Unavailable Abbey Bagley PA-C Primary Care Provider Kelley Ko DO Unavailable Ino Robbins MD Unavailable [phone] Encounter Details Date Type Department Care Team (Late st Contact Info) Description 11/23/2022 [facility] Medical Advice [address] [place] [address] Di Sher RN Social History Tobacco Use Types Packs/Day Years Used Date Smoking Tobacco: Some Days Cigarettes Smokeless Tobacco: Never Alcohol Use Standard Drinks/Week Comments Not Currently 0 (1 standard drink = 0.6 oz pur e alcohol) Seldom PHQ-2 Answer Date Recorded PHQ-2 Score 2 11/26/2022 [place] Depression Scale Answer Date Recorded [place] Depression Score 13 03/10/2021 Last EPDS Self [...] Coronavirus/COVID-19? No / Unsure 11/26/2022 1:26 PM STOGIE PACKER documented as of this encounter Plan of Treatment Not on file documented as of this encounter Visit Diagnoses Not on filedocumented in this encounter Additional Health Concerns Assessment Noted Time PHQ-9 Depression Total Score: 19 021 3:52 PM CDT documented as of this encounter Care Teams Prescriptionist Relationship Specialty Start Date End Date Abbey Bagley PA-C PCP - General Physician Golf Coach 08/15/20 Abbey Bagley PA-C Physician Golf Coach 04/11/20 05/02/23 Kelley Diane DO [address] [address] Assigned OBGYN Provider 12/04/22 Ino Robbins MD [address] [place] [address] Assigned OBGYN Provider 01/01/23 documented as of this encounter
--- OUTSIDE RECORDS SUMMARY | 2024-05-12 22:11 | XMS_ITS | Referral Summary ---
Author Organization [place] Address [address] [place] [id number] Phone Care Team Providers Care Auto Wrecker Name Role Phone Alfred Lambert APRN, CNP Primary Care Provider Source Comments [employer] is fully rolled out on [employer]. Last update 03/14/09.[facility] Allergies Active Allergy Reactions Criticality Noted Date [...] (major depressive disord er), recurrent episode, moderate ([facility]) 08/19/2023 Suicidal ideation 06/09/2023 Asthma ([facility]) 06/08/2023 06/08/2023 Essential hypertension in patient ([facility]) 06/08/2023 06/08/2023 Hypertension 06/08/2023 06/08/2023 Iron deficiency anemia 06/08/2023 Anxiety 06/08/2023 06/08/2023 Anxiety disorder, unspecified type 06/08/2023 Bipolar II disorder ([facility]) 05/09/2023 PTSD (post-traumatic stress disorder) 05/09/2023 Eclampsia ([facility]) 05/05/2023 06/08/2023 History of depression 05/05/2023 06/08/2023 Iron deficiency 12/23/2020 06/08/2023 Chronic GERD 01/24/2020 06/08/2023 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 Encounter for screening 02/05/2005 06/08/20 Overview: LW Onset: [id number] ; Child and Teen Check Up Needs [...] Comments Blood Pressure 116/79 11/24/2023 1:18 PM DEGREASER Pulse 104 11/24/2023 1:18 PM DEGREASER Temperature 36.4 ??C (97.5 ??F) 06/14/2023 9:28 AM CD T Respiratory Rate 18 06/14/2023 9:28 AM CDT Oxygen Saturation 99% 06/14/2023 9:28 AM CDT Inhaled Oxygen Concentration - - Weight 89.4 kg (197 lb) 11/24/2023 1:18 PM DEGREASER Height 170.8 cm (5' 7.24) 06/08/2023 8:18 PM CD T Body Mass Index 30.63 06/08/2023 8:18 PM CDT Plan of Treatment Not on file Procedures Procedure Name Priority Date/Time Associated Diagnosis Comments PAP TEST Routine 07/01/2023 3:00 PM CDT HIV COMBO Routine 11/26/2022 2:16 PM DEGREASER URINE CHLAMYDIA AND NEISSERIAE GONORRHOEAE AMPLIFICATION Routine 11/26/2022 1:42 PM DEGREASER from Last 3 Months or Most Recently Relevant to Health Maintenance Advance Directives For more information, please contact: [phone] * Full Code (Latest Code Status on File) Date Activated Date Inactivated Comments 06/08/2023 10:12 PM 06/15/2023 1:52 PM Question Answer Comments Does the Patient have prefer ences regarding life sustaining measures (these options only apply when the patient has a pulse): No Discussed Code Status With Whom? Not discussed Care Teams Auto Wrecker Relationship Specialty Start Date End Date Alfred Lambert, ACQUISITION MARKETING COORDINATOR, HOT CAR OPERATOR [address] [place] [address] PCP - General Internal Medicine 01/17/24
--- OUTSIDE RECORDS SUMMARY | 2024-05-12 22:11 | XMS_ITS | Encounter Summary ---
Author Organization [place] Address [address] [facility] [place] [address] Care Team Providers Care Filter Cleaner Name Role Phone Abbey Bagley PA-C Unavailable Unavailable Abbey Bagley PA-C Primary Care Provider Unava ilable Ino Robbins MD Unavailable Reason for Visit * Reason Onset Date Comments Care 04/26/2023 Encounter Details Date Type Department Care Team (Late st Contact Info) Description 04/26/2023 MyC Medical Advice [facility] [address] [place] [phone] Ino Robbins MD [address] [place], [place] [address] Care Social History Tobacco Use Types Packs/Day Years Used Date Smoking Tobacco: Former Cigarettes Q uit: 03/10/2023 Passive Smoke Exposure: Never Smokeless Tobacco: Never Alcohol Use Standard Drinks/Week Comments Not Currently 0 (1 standard drink = 0.6 oz pur e alcohol) Seldom PHQ-2 Answer Date Recorded PHQ-2 Score 0 04/14/2023 [place] Depression Scale Answer Date Recorded [place] Depression Score 13 03/10/2021 Last EPDS Self [...] as of this encounter Care Teams Filter Cleaner Relationship Specialty Start Date End Date Abbey Bagley PA-C PCP - General Physician Internal Sales 08/15/20 Abbey Bagley PA-C Physician Internal Sales 04/11/20 05/02/23 Ino Robbins MD [address] [place] [address] Assigned OBGYN Provider 01/01/23 documented as of this encounter
--- OUTSIDE RECORDS SUMMARY | 2024-05-12 22:11 | XMS_ITS | Encounter Summary ---
Author Organization [place] Address [facility] [place] [address] Care Team Providers Care Electrical Products Sales Engineer Name Role Phone Abbey Bagley PA-C Unavailable Unavailable Abbey Bagley PA-C Primary Care Provider Kelley Ko DO Unavailable Ino Robbins MD Unavailable Encounter Details Date Type Department Care Team (Late st Contact Info) Description 11/22/2022 [facility] [place] [address] [place] [address] Di Sher RN Social History Tobacco Use Types Packs/Day Years Used Date Smoking Tobacco: Every Day Cigarettes Smokeless Tobacco: Never Alcohol Use Standard Drinks/Week Comments Not Currently 0 (1 standard drink = 0.6 oz pur e alcohol) Seldom PHQ-2 Answer Date Recorded PHQ-2 Score 2 11/26/2022 [place] Depression Scale Answer Date Recorded [place] Depression Score 13 03/10/2021 Last EPDS Self [...] Coronavirus/COVID-19? No / Unsure 11/17/2022 6:32 PM ELECTRICAL ASSEMBLY TECHNICIAN documented as of this encounter Plan of Treatment Not on file documented as of this encounter Visit Diagnoses Not on filedocumented in this encounter Additional Health Concerns Assessment Noted Time PHQ-9 Depression Total Score: 19 021 3:52 PM CDT documented as of this encounter Care Teams Electrical Products Sales Engineer Relationship Specialty Start Date End Date Abbey Bagley PA-C PCP - General Physician Roller Printer 08/15/20 Abbey Bagley PA-C Physician Roller Printer 04/11/20 05/02/23 Kelley Diane DO [address] [address] Assigned OBGYN Provider 12/04/22 Ino Robbins MD [address] [place] [address] Assigned OBGYN Provider 01/01/23 documented as of this encounter
[2024-05-12 22:12] LABS: Albumin* 4.6 g/dL (3.3-5.0); Potassium* 3.7 mmol/L (3.6-5.1); Sodium* 138 mmol/L (135-149)
[2024-05-12 22:14] LABS: Creatinine* 0.7 mg/dL (0.5-1.5); Est. Creatinine Clearance* 123.63; Estimated Glomerular Filt Rate 126 ml/min
[2024-05-12 22:15] LABS: Alanine Aminotransferase* 13 U/L (4-35); Alkaline Phosphatase* 58 U/L (40-150); Anion Gap 9 mEq/L (7-15); Aspartate Amino Transferase* 18 U/L (12-35); Bilirubin Total* 0.5 mg/dL (0.1-1.5); Blood Urea Nitrogen* 12 mg/dL (5-24); Calcium* 9.3 mg/dL (8.4-10.6); Carbon Dioxide* 21 mmol/L (20-32); Glucose* 98 mg/dL (60-115); Total Protein* 7.4 g/dL (6.0-8.3)
[2024-05-12 22:18] LABS: C Reactive Protein* 0.7 mg/dL (0.5-1.0)
[2024-05-12 22:20] LABS: D Dimer Quantitative* < 0.27 ug/ml (0.00-0.50)
[2024-05-12 22:28] LABS: NT Pro B Type NatriureticPept* 26 pg/mL; Troponin I* < 0.01 ng/mL (0.01-0.04)
[2024-05-12 23:24] VITALS: BP 144/71; PULSE 95; RESP 18
== END 2024-05-12 23:25 | disposition home or self-care (01) ==
PROVIDERS: Emergency Provider Family Medicine; PCP Nurse Practitioner Family
DX: R07.9 Chest pain, unspecified (principal)
CPT/HCPCS: 36415; 80053; 83880; 84484; 85025; 85379; 86140; 93005; 99284

== ENCOUNTER 2024-05-29 14:16 | Outpatient (CLI) | payer MEDICAID, SELFPAY ==
--- OUTSIDE RECORDS SUMMARY | 2024-05-29 14:19 | XMS_ITS | Clinical Summary ---
Author Organization [facility] Address [address] [place] [address] Phone Care Team Providers Care Technical Sales Representative Name Role Phone Alfred Lambert APRN, CNP Primary Care Provider Source Comments [employer] is fully rolled out on [employer]. Last update 03/14/09.[facility] Allergies Active Allergy Reactions Criticality Noted Date [...] [facility]) 08/19/2023 Suicidal ideation 06/09/2023 Asthma ([facility]) 06/08/2023 06/08/2023 Essential hypertension in patient (HH S) 06/08/2023 06/08/2023 Hypertension 06/08/2023 06/08/2023 Iron deficiency anemia 06/08/2023 Anxiety 06/08/2023 06/08/2023 Anxiety disorder, unspecified type 06/08/2023 Bipolar II disorder ([facility]) 05/09/2023 PTSD (post-traumatic stress disorder) 05/09/2023 Eclampsia ([facility]) 05/05/2023 06/08/2023 History of depression 05/05/2023 06/08/2023 Iron deficiency 12/23/2020 06/08/2023 Chronic GERD 01/24/2020 06/08/2023 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 Encounter for screening 02/05/2005 06/08/20 Overview: LW Onset: [id number] ; Child and Teen Check Up Needs [...] Comments Blood Pressure 116/79 11/24/2023 1:18 PM RANGE RIDER Pulse 104 11/24/2023 1:18 PM RANGE RIDER Temperature 36.4 ??C (97.5 ??F) 06/14/2023 9:28 AM CD T Respiratory Rate 18 06/14/2023 9:28 AM CDT Oxygen Saturation 99% 06/14/2023 9:28 AM CDT Inhaled Oxygen Concentration - - Weight 89.4 kg (197 lb) 11/24/2023 1:18 PM RANGE RIDER Height 170.8 cm (5' 7.24) 06/08/2023 8:18 PM CD T Body Mass Index 30.63 06/08/2023 8:18 PM CDT Plan of Treatment Health Maintenance Due Date Last Done Comments Asthma Action Plan 2002 Asthma Control Test 2002 Dental Oral Exam 2002 Dental Prophylaxis 2002 Dental X-Ray: Bitewings 2002 Imm: Pneumonia Peds or At-Ri sk less [...] history exists Cervical Cancer Screening Ag e 21-29 07/01/2026 07/01/2023 Imm: DTaP/Tdap (8 - Td or Tdap) 03/30/2033 03/30/2023, 01/01/2021, 02/19/2014, Additional history exists Imm: Zoster (1 of 2) 2052 Imm: Hib Completed 07/16/2004, 2002 Imm: HepA Completed 02/19/2014, 05/23/2007 Imm: Meningitis Completed 11/27/2019, 02/19/2014 Imm: HepB Completed 07/08/2022, 04/2004, 2002, Additional history exists HIV Screening Completed 11/26/2022, 12/2019, 07/01/2020, Additional history exists Advance Directives For more information, please contact: [phone] * Full Code (Latest Code Status on File) Date Activated Date Inactivated Comments 06/08/2023 10:12 PM 06/15/2023 1:52 PM Question Answer Comments Does the Patient have prefer ences regarding life sustaining measures (these options only apply when the patient has a pulse): No Discussed Code Status With Whom? Not discussed Care Teams Technical Sales Representative Relationship Specialty Start Date End Date Alfred Lambert APRN, DEVICE REPAIR TECHNICIAN [address] [place] [address] PCP - General Internal Medicine 01/17/24
--- OUTSIDE RECORDS SUMMARY | 2024-05-29 14:19 | XMS_ITS | Encounter Summary ---
Author Organization [facility] Address [address] [facility] [place] [address] Care Team Providers Care Multiple Knife Edge Trimmer Operator Name Role Phone Abbey Bagley PA-C Unavailable Unavailable Abbey Bagley PA-C Primary Care Provider Kelley Ko DO Unavailable [phone] Ino Robbins MD Unavailable Encounter Details Date Type Department Care Team (Late st Contact Info) Description 12/07/2022 [facility] Medical Advice [facility] [address] [place] [phone] Diana Rainey, RN Social History Tobacco Use Types Packs/Day Years Used Date Smoking Tobacco: Some Days Cigarettes Smokeless Tobacco: Never Alcohol Use Standard Drinks/Week Comments Not Currently 0 (1 standard drink = 0.6 oz pur e alcohol) Seldom PHQ-2 Answer Date Recorded PHQ-2 Score 2 11/26/2022 [place] Depression Scale Answer Date Recorded [place] Depression Score 13 03/10/2021 Last EPDS Self [...] Coronavirus/COVID-19? No / Unsure 11/26/2022 1:26 PM ARCHITECTURE DEPARTMENT CHAIR documented as of this encounter Plan of Treatment Not on file documented as of this encounter Visit Diagnoses Not on filedocumented in this encounter Additional Health Concerns Assessment Noted Time PHQ-9 Depression Total Score: 19 021 3:52 PM CDT documented as of this encounter Care Teams Multiple Knife Edge Trimmer Operator Relationship Specialty Start Date End Date Abbey Bagley PA-C PCP - General Physician Concrete Curer 08/15/20 Abbey Bagley PA-C Physician Concrete Curer 04/11/20 05/02/23 Kelley Diane DO [address] [address] Assigned OBGYN Provider 12/04/22 Ino Robbins MD [address] [place] [address] Assigned OBGYN Provider 01/01/23 documented as of this encounter
--- OUTSIDE RECORDS SUMMARY | 2024-05-29 14:19 | XMS_ITS | Encounter Summary ---
Author Organization [facility] Address [address] [facility] [place] [address] Care Team Providers Care Certified Alcohol Counselor Name Role Phone Abbey Bagley PA-C Unavailable Unavailable Abbey Bagley PA-C Primary Care Provider Unava ilable Ino Robbins MD Unavailable Reason for Visit * Reason Onset Date Comments Care 04/26/2023 Encounter Details Date Type Department Care Team (Late st Contact Info) Description 04/26/2023 MyC Medical Advice [facility] [address] [place] [phone] Ino Robbins MD [address] [place], [place] [id number] Care Social History Tobacco Use Types Packs/Day [...] documented as of this encounter Care Teams Certified Alcohol Counselor Relationship Specialty Start Date End Date Abbey Bagley PA-C PCP - General Physician Grey Roll Man 08/15/20 Abbey Bagley PA-C Physician Grey Roll Man 04/11/20 05/02/23 Ino Robbins MD [address] [place] [address] Assigned OBGYN Provider 01/01/23 documented as of this encounter
--- OUTSIDE RECORDS SUMMARY | 2024-05-29 14:19 | XMS_ITS | Clinical Summary ---
Author Organization [facility] Address [address] [place] [address] Care Team Providers Care Controlled Area Checker Name Role Phone Abbey Bagley PA-C [...] Answer Date Recorded PHQ-2 Score 0 04/14/2023 [place] Depression Scale Answer Date Recorded Last EPDS [...] ANTIGEN ANTIBODY COMBO Routine 11/26/2022 2:16 PM TELECOM COORDINATOR Encounter for supervision of other normal in second trimester HEPATITIS C ANTIBODY Routine 11/26/2022 2:16 PM TELECOM COORDINATOR Encounter for supervision of other normal in second trimester CHLAMYDIA TRACHOMATIS PCR Routine 11/26/2022 1:42 PM TELECOM COORDINATOR Screen for STD (sexually transmitted disease) from Last 3 Months or Most Recently Relevant to Health Maintenance Results * HIV Antigen Antibody Combo (11/26/2022 2:16 PM TELECOM COORDINATOR) HIV Antigen Antibody Combo Nonreactive Nonreactive 11/27/2022 2:46 PM TELECOM COORDINATOR [facility] DO Comment:HIV-1 p24 Ag & HIV-1 /HIV-2 Ab Not Detected Blood BLOOD SPECIMEN / Unknown Venipuncture / Unknown 11/26/2022 2:16 PM TELECOM COORDINATOR 11/26/2022 2:28 PM TELECOM COORDINATOR Kelley Diane DO LAB - BLOOD ORDER BROO[place] [facility]/PROT/ENDO [facility] Special[facility] Core/Prot/Endo [address] [facility] [address], [address] [phone] * Hepatitis C antibody (11/26/2022 2:16 PM TELECOM COORDINATOR) Hepatitis C Antibody Nonreactive Nonreactive 11/27/2022 2:46 PM TELECOM COORDINATOR [facility]/EN DO Blood BLOOD SPECIMEN / Unknown Venipuncture / Unknown 11/26/2022 2:16 PM TELECOM COORDINATOR 11/26/2022 2:28 PM TELECOM COORDINATOR Narrative SPECIALTY CORE/PROT/ENDO - 11/27/2022 2:46 PM TELECOM COORDINATOR Assay performance characteristics have not been established for newborns, infants, and children. Kelley Diane DO LAB - BLOOD ORDER [place]OO[place] SPECIALTY CORE/PROT/ENDO Specialty Core/Prot/Endo [address] [facility], [address] [place], [place] [address] [phone] * CHLAMYDIA TRACHOMATIS PCR (11/26/2022 1:42 PM TELECOM COORDINATOR) Chlamydia trachomatis Negative Negative 11/27/2022 12:55 PM TELECOM COORDINATOR [facility] Comment:A negative result by correspondence section supervisor mediated amplification does not preclude the presence of C. trachomatis infection because results are dependent on proper and adequate collection, absence of inhibitors and sufficient rRNA to be detected. Swab CERVIX UTERI STRUCTURE / Unknown Non-blood Collection / Unknown 11/26/2022 1:42 PM TELECOM COORDINATOR 11/26/2022 3:02 PM TELECOM COORDINATOR Kelley Diane DO LAB - MICRO GENER AL ORDERABLES [facility] Inf. Diseases Diag. Lab [address] [facility], [address] [place] [address], [facility] [phone] from Last 3 Months or Most Recently Relevant to Health Maintenance Advance Directives For more information, please contact: [phone] * Full Code (Latest Code Status on [...] aisha nt/ legal decision maker Care Teams Controlled Area Checker Relationship Specialty Start Date End Date Abbey Bagley PA-C PCP - General Physician Boat Tester 08/15/20 Ino Robbins MD [address] [place] [address] Assigned OBGYN Provider 01/01/23
--- OUTSIDE RECORDS SUMMARY | 2024-05-29 14:19 | XMS_ITS | Referral Summary ---
Author Organization [facility] Address [address] [place] [address] Care Team Providers Care Producer Name Role Phone Abbey Bagley PA-C Primary [...] Answer Date Recorded PHQ-2 Score 0 04/14/2023 [place] Depression Scale Answer Date Recorded Last EPDS [...] ANTIGEN ANTIBODY COMBO Routine 11/26/2022 2:16 PM FAMILY ENGAGEMENT SPECIALIST Encounter for supervision of other normal in second trimester HEPATITIS C ANTIBODY Routine 11/26/2022 2:16 PM FAMILY ENGAGEMENT SPECIALIST Encounter for supervision of other normal in second trimester CHLAMYDIA TRACHOMATIS PCR Routine 11/26/2022 1:42 PM FAMILY ENGAGEMENT SPECIALIST Screen for STD (sexually transmitted disease) from Last 3 Months or Most Recently Relevant to Health Maintenance Results * HIV Antigen Antibody Combo (11/26/2022 2:16 PM FAMILY ENGAGEMENT SPECIALIST) HIV Antigen Antibody Combo Nonreactive Nonreactive 11/27/2022 2:46 PM FAMILY ENGAGEMENT SPECIALIST [facility] DO Comment:HIV-1 p24 Ag & HIV-1 /HIV-2 Ab Not Detected Blood BLOOD SPECIMEN / Unknown Venipuncture / Unknown 11/26/2022 2:16 PM FAMILY ENGAGEMENT SPECIALIST 11/26/2022 2:28 PM FAMILY ENGAGEMENT SPECIALIST Kelley Diane DO LAB - BLOOD ORDER BROOKE [facility]/PROT/ENDO [facility] Specialty Core/Prot/Endo [address] [facility], [address] [phone] * Hepatitis C antibody (11/26/2022 2:16 PM FAMILY ENGAGEMENT SPECIALIST) Pathologist [facility] Hepatitis C Antibody Nonreactive Nonreactive 11/27/2022 2:46 PM FAMILY ENGAGEMENT SPECIALIST SPECIALTY CORE/PROT/EN DO Blood BLOOD SPECIMEN / Unknown Venipuncture / Unknown 11/26/2022 2:16 PM FAMILY ENGAGEMENT SPECIALIST 11/26/2022 2:28 PM FAMILY ENGAGEMENT SPECIALIST Narrative SPECIALTY CORE/PROT/ENDO - 11/27/2022 2:46 PM FAMILY ENGAGEMENT SPECIALIST Assay performance characteristics have not been established for newborns, infants, and children. Kelley Diane DO LAB - BLOOD ORDER BROO[place] SPECIALTY CORE/PROT/ENDO Specialty Core/Prot/Endo [address] [facility] [place], [address] [place] [address], [facility] [phone] * CHLAMYDIA TRACHOMATIS PCR (11/26/2022 1:42 PM FAMILY ENGAGEMENT SPECIALIST) Pathologist [facility] Chlamydia trachomatis Negative Negative 11/27/2022 12:55 PM FAMILY ENGAGEMENT SPECIALIST [facility] Comment:A negative result by highway maintenance crew worker mediated amplification does not preclude the presence of C. trachomatis infection because results are dependent on proper and adequate collection, absence of inhibitors and sufficient rRNA to be detected. Swab CERVIX UTERI STRUCTURE / Unknown Non-blood Collection / Unknown 11/26/2022 1:42 PM FAMILY ENGAGEMENT SPECIALIST 11/26/2022 3:02 PM FAMILY ENGAGEMENT SPECIALIST Kelley Diane DO LAB - MICRO GENER AL ORDERABLES [facility] Inf. Diseases Diag. Lab [address] [facility], [address] [place] [address], [facility] [phone] from Last 3 Months or Most Recently Relevant to Health Maintenance Advance Directives For more information, please contact: [phone] * Full Code (Latest Code Status on [...] aisha nt/ legal decision maker Care Teams Producer Relationship Specialty Start Date End Date Abbey Bagley PA-C PCP - General Physician Social Services Designee 08/15/20 Ino Robbins MD [address] [place] [address] Assigned OBGYN Provider 01/01/23
--- OUTSIDE RECORDS SUMMARY | 2024-05-29 14:19 | XMS_ITS | Referral Summary ---
Author Organization [facility] Address [address] [place] [address] Phone Care Team Providers Care Pathology Lab Technician Name Role Phone Alfred Lambert APRN, CNP Primary Care Provider [phone] Source Comments [employer] is fully rolled out on [employer]. Last update 03/14/09.[facility] Allergies Active Allergy Reactions Criticality Noted Date [...] recurrent episode, moderate ([facility]) 08/19/2023 Suicidal ideation 06/09/2023 Asthma ([facility]) 06/08/2023 06/08/2023 Essential hypertension in patient (HH S) 06/08/2023 06/08/2023 Hypertension 06/08/2023 06/08/2023 Iron deficiency anemia 06/08/2023 Anxiety 06/08/2023 06/08/2023 Anxiety disorder, unspecified type 06/08/2023 Bipolar II disorder ([facility]) 05/09/2023 PTSD (post-traumatic stress disorder) 05/09/2023 Eclampsia ([facility]) 05/05/2023 06/08/2023 History of depression 05/05/2023 06/08/2023 Iron deficiency 12/23/2020 06/08/2023 Chronic GERD 01/24/2020 06/08/2023 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 Encounter for screening 02/05/2005 06/08/20 Overview: LW Onset: [id number] ; Child and Teen Check Up Needs [...] Comments Blood Pressure 116/79 11/24/2023 1:[address] INSTRUCTOR Pulse 104 11/24/2023 1:[address] INSTRUCTOR Temperature 36.4 ??C (97.5 ??F) 06/14/2023 9:28 AM CD T Respiratory Rate 18 06/14/2023 9:28 AM CDT Oxygen Saturation 99% 06/14/2023 9:28 AM CDT Inhaled Oxygen Concentration - - Weight 89.4 kg (197 lb) 11/24/2023 1:[address] INSTRUCTOR Height 170.8 cm (5' 7.24) 06/08/2023 8:18 PM CD T Body Mass Index 30.63 06/08/2023 8:18 PM CDT Plan of Treatment Not on file Advance Directives For more information, please contact: [phone] * Full Code (Latest Code Status on File) Date Activated Date Inactivated Comments 06/08/2023 10:12 PM 06/15/2023 1:52 PM Question Answer Comments Does the Patient have prefer ences regarding life sustaining measures (these options only apply when the patient has a pulse): No Discussed Code Status With Whom? Not discussed Care Teams Pathology Lab Technician Relationship Specialty Start Date End Date Alfred Lambert APRN, HANDLE BAR ASSEMBLER [address] [place] [address] PCP - General Internal Medicine 01/17/24
--- OUTSIDE RECORDS SUMMARY | 2024-05-29 14:20 | XMS_ITS | Encounter Summary ---
Author Organization [place] Address [address] [facility] [place] [address] Care Team Providers Care Grants Administrator Name Role Phone Abbey Bagley PA-C Unavailable Unavailable Abbey Bagley PA-C Primary Care Provider Unava ilable Ino Robbins MD Unavailable Azul Gilman DO Unavailable [phone] Kelley Diane DO Unavailable Ino Robbins MD Unavailable Encounter Details Date Type Department Care Team (Late st Contact Info) Description 04/07/2021 MyC Medical Advice [facility] [address] [place] [phone] Ino Robbins MD [address] [place] [address] Social History Tobacco Use Types Packs/Day Years Used Date Smoking Tobacco: Every Day Cigarettes Smokeless Tobacco: Never Alcohol Use Standard Drinks/Week Comments Not Currently 0 (1 standard drink = 0.6 oz pur e alcohol) Seldom PHQ-2 Answer Date Recorded PHQ-2 Score 6 02/19/2021 [place] Depression Scale Answer Date Recorded [place] Depression Score 13 03/10/2021 Last EPDS Self [...] documented as of this encounter Care Teams Grants Administrator Relationship Specialty Start Date End Date Abbey Bagley PA-C PCP - General Physician Hyperbaric Technician 08/15/20 Abbey Bagley PA-C Physician Hyperbaric Technician 04/11/20 05/02/23 Ino Robbins MD [address] [place] [address] Assigned OBGYN Provider 03/08/21 Azul Gilman DO [address] [place] [address] Assigned Heart and Vascular Provider 03/08/21 09/10/22 Kelley Diane DO [address] [place] [address] Assigned OBGYN Provider 12/04/22 Ino Robbins MD [address] [place] [address] Assigned OBGYN Provider 01/01/23 documented as of this encounter
--- OUTSIDE RECORDS SUMMARY | 2024-05-29 14:20 | XMS_ITS | Clinical Summary ---
Author Organization [facility] Address [place], [place] [address] Care Team Providers Care Salad Maker Name Role Phone Staff, Other Clinical Primary [...] Requisition [facility] [phone] Comfort Platt, MANAGER SAP from Last 3 Months Immunizations Name Administration Dates Next Due COVID-19 vaccine (Embarkly-Bio NTech 30mcg/0.3mL) [place] 2021 DTaP 05/23/2007, 7,08/27/2004,08/27,2002,2002 [id number] (Pediarix) 07/16/2004,07/16/2004 HIB PRP-OMP (PedvaxHIB) 07/16/2004 HIB [...] Austin Ledezma MD Complications: Intolera nce Delivery Location:[facility] ( LABOR AND DELIVERY) 2022 Term [...] on patient's age to complete this topic HIV for age 15-65 Completed 09/11/2020, , 07/05/2016 Hepatitis C screening for age 18-79 Completed 09/11/2020, 07/05/2016 Tdap Completed 01/01/2021, 02/19/2014 Goals Goal Patient Goal Type Associated Problems Recent Progress Patient-Stated? Author Transportation - Increase reliability General Yes Praful Orozco, GEROPSYCHOLOGIST, GALLERY OR MUSEUM CURATOR Note: Goal identified during: Initial Screening Status: [...] follow-up in two weeks to review her [facility] goals and get a status update [...] GOLD PLUS Routine 02/29/2024 4:15 PM CDT CERTIFIED ORTHOTIST/PEDORTHIST THIN PREP PAP SCREEN IMAGED Routine 07/01/2023 3:00 PM CDT GC CHLAMYDIA TRACH PROBE Routine 09/21/2022 1:00 PM TRAVELING FREIGHT AGENT Cramping affecting , antepartum ANTI HIV 1/2 Routine 09/11/2020 8:23 AM TRAVELING FREIGHT AGENT Encounter for supervision of normal first in first trimester ANTI HCV Routine 09/11/2020 8:23 AM TRAVELING FREIGHT AGENT Encounter for supervision of normal first in first trimester from Last 3 Months or Most Recently Relevant to Health Maintenance Results * QFT MITOGEN PERFORMABLE (02/29/2024 4:15 PM CDT) MITOGEN 10.00 IU/mL 03/02/2024 12:58 PM CDT [facility] Blood BLOOD SPECIMEN / Unknown Client Collect / Unknown 02/29/2024 4:15 PM CDT 03/01/2024 9:47 PM CDT Comfort Platt NP CHEMISTRY Performing Organization Address [facility] Co de Phone Number [facility] [address] [place] [address], [place] * QFT TB2 PERFORMABLE (02/29/2024 4:15 PM CDT) TB2 0.02 IU/mL 03/02/2024 11:32 AM CDT [facility] Blood BLOOD SPECIMEN / Unknown Client Collect / Unknown 02/29/2024 4:15 PM CDT 03/01/2024 9:47 PM CDT Comfort Platt NP CHEMISTRY Performing Organization Address [facility] de Phone Number [facility] [address] [place] [address], [place] * QFT TB1 PERFORMABLE (02/29/2024 4:15 PM CDT) TB1 0.00 IU/mL 03/02/2024 11:33 AM CDT [facility] Blood BLOOD SPECIMEN / Unknown Client Collect / Unknown 02/29/2024 4:15 PM CDT 03/01/2024 9:47 PM CDT Comfort Platt NP CHEMISTRY Performing Organization Address [facility] Co de Phone Number [facility] [address] [place] [address], [place] * QUANTIFERON TB GOLD PLUS (02/29/2024 4:15 PM CDT) QFTP NIL 0.00 03/02/2024 2:53 PM CDT [facility] TB1 0.00 IU/mL 03/02/2024 2:53 PM CDT [facility] TB2 0.02 IU/mL 03/02/2024 2:53 PM CDT [facility] MITOGEN 10.00 IU/mL 03/02/2024 2:53 PM CDT [facility] QFTP TB AG1 - NIL 0.00 024 2:53 PM CDT [facility] TB1-NIL % OF NIL 03/02/20 2:53 PM CDT [facility] Comment:Unable to calculate QFTP TB AG2 - NIL 0.02 024 2:53 PM CDT [facility] TB2-NIL % OF NIL 03/02/20 2:53 PM CDT [facility] Comment:Unable to calculate QFTP MITOGEN - NIL 10.00 2023 2:53 PM CDT [facility] QFTP QUANTIFERON INTERPRETATION Negative Negative 03/02/2024 2:53 PM CDT [facility] Blood BLOOD SPECIMEN / Unknown Client Collect / Unknown 02/29/2024 4:15 PM CDT 03/01/2024 9:47 PM CDT Narrative [facility] - 03/02/2024 2:53 PM CDT M. [...] old. - women Comfort Platt NP CHEMISTRY [facility] [address] [place] [address], * CERTIFIED ORTHOTIST/PEDORTHIST THIN PREP PAP SCREEN IMAGED (07/01/2023 3:00 PM CDT) Case Report Gynecologic Cytology Report ? Case: [id number] ? Authorizing Provider: ??Denise Fry, MANAGER SAP ?? Collected: ? 07/01/2023 1500 ? Ordering Location: ? [facility] ?Received: ?07/05/2023 1303 ? First Screen: ?Ino Enriquez ? Specimen: ?CERTIFIED ORTHOTIST/PEDORTHIST ThinPrep Vial Screening, Cervical ? 07/12/2023 9:32 AM CDT [facility]AL LABORAT[facility] INTERPRETATION/ RESULT NEGATIVE FOR INTRAEPITHELIAL LESION OR MALIGNANCY (NIL) (none) 07/12/2023 9:32 AM CDT [facility] IMEN ADEQUACY Satisfactory for evaluation Endocervical component present Scant cellularity 07/12/2023 9:32 AM CDT [facility] HPV REQUEST HPV not requested 2022 9:32 AM CDT [facility] Date of LMP 06/15/2023 07/12/2023 9:32 AM CDT [facility] Last Pap Result First Pap/Unknown 9:32 AM CDT [facility] Abnormal Pap or Climax Bx in last 5 years No 07/12/2023 9:32 AM CDT [facility] Menstrual Status Regular Periods 07/12/2023 9:32 AM CDT [facility] Climax Bx Done Today No 07/12/2023 9:32 AM CDT [facility] Additional Information 07/12/2023 9:32 AM CDT [facility] Comment: Interpreted at [facility] - [address] [place] [address] [place] [address] Automated Review Successful 07/12/2023 9:32 AM CDT [facility] Comment:Specimen processed s uccessfully by automated butter melter device, ThinPrep Imaging System, [employer] Note The pap test is a [...] and malignant lesions. 07/12/2023 9:[address] [facility] Other (Cervical) 07/01/2023 3:00 PM CDT 07/05/2023 1:03 PM CDT Denise Fry NP PATHOLOGY/CYTOLOG Y [facility] [address] [place] [address], [place] * GC CHLAMYDIA TRACH PROBE (09/21/2022 1:00 PM TRAVELING FREIGHT AGENT) CHLAMYDIA PROBE Negative 5:24 PM TRAVELING FREIGHT AGENT [facility] N GONORRHOEAE PROBE Negative 09/22/2022 5:24 PM TRAVELING FREIGHT AGENT [facility] Other VAGINAL SWAB / Unknown Non-Blood / Unknown 09/21/2022 1:00 PM TRAVELING FREIGHT AGENT 09/21/2022 1:49 PM TRAVELING FREIGHT AGENT Deborah Senior NP MICROBIOLOGY Performing Organization Address City/[facility]/ZIP Co de Phone Number [facility] [address] [place] [address], [place] * ANTI HCV (09/11/2020 8:23 AM TRAVELING FREIGHT AGENT) HEPATITIS C ANTIBODY Non-React kamran Non-React kamran 09/11/2020 12:51 PM TRAVELING FREIGHT AGENT [facility] Comment:Antibodies to HCV no t detected; does not exclude the possibility of exposure to HCV. Blood BLOOD SPECIMEN / Unknown Butterfly / Unknown 09/11/2020 8:23 AM TRAVELING FREIGHT AGENT 09/11/2020 8:24 AM TRAVELING FREIGHT AGENT Kira Turner DO SEND OUTS Performing Organization Address [facility] Co de Phone Number [facility] [address] [place] [phone], [place] * ANTI HIV 1/2 (09/11/2020 8:23 AM TRAVELING FREIGHT AGENT) HIV-1/HIV-2 ANTIBODY Non-Reacti ve Non-Reacti ve 09/11/2020 12:38 PM TRAVELING FREIGHT AGENT [facility] Comment:HIV-1 p24 and HIV-1/ HIV-2 Ab not detected. Blood BLOOD SPECIMEN / Unknown Butterfly / Unknown 09/11/2020 8:23 AM TRAVELING FREIGHT AGENT 09/11/2020 8:24 AM TRAVELING FREIGHT AGENT Kira Turner DO SEND OUTS [facility] [address] [place] [address], [place] from Last 3 Months or Most [...] 3:46 PM 08/18/2016 1:40 PM Care Teams Salad Maker Relationship Specialty Start Date End Date Staff, Other Clinical . PCP - General 06/05/23
--- OUTSIDE RECORDS SUMMARY | 2024-05-29 14:20 | XMS_ITS | Encounter Summary ---
Author Organization [place] Address [address] [place] [address] Care Team Providers Care Modeling Agent Name Role Phone Abbey Bagley PA-C Unavailable Unavailable Abbey Bagley PA-C Primary Care Provider Unava ilable Ino Robbins MD Unavailable Azul Gilman DO Unavailable [phone] Kelley Diane DO Unavailable [phone] Ino Robbins MD Unavailable [phone] Reason for Visit * Reason Onset Date Comments Refill Request 04/02/2021 Encounter Details Date Type Department Care Team (Late st Contact Info) Description 04/02/2021 MyC Refill Initial Department Abbey Bagley PA-C [facility] Refill Request Social History Tobacco Use Types Packs/Day Years Used Date Smoking Tobacco: Every Day Cigarettes Smokeless Tobacco: Never Alcohol Use Standard Drinks/Week Comments Not Currently 0 (1 standard drink = 0.6 oz pur e alcohol) Seldom PHQ-2 Answer Date Recorded PHQ-2 Score 6 02/19/2021 [place] Depression Scale Answer Date Recorded [place] Depression Score 13 03/10/2021 Last EPDS [...] documented as of this encounter Care Teams Modeling Agent Relationship Specialty Start Date End Date Abbey Bagley PA-C PCP - General Physician Overhead Foreman 08/15/20 Abbey Bagley PA-C Physician Overhead Foreman 04/11/20 05/02/23 Ino Robbins MD [address] [place] [address] Assigned OBGYN Provider 03/08/21 Azul Gilman DO [address] [place] [address] Assigned Heart and Vascular Provider 03/08/21 09/10/22 Kelley Diane DO [address] [facility] [address] [place] [address] Assigned OBGYN Provider 12/04/22 Ino Robbins MD [address] [place] [address] Assigned OBGYN Provider 01/01/23 documented as of this encounter
--- OUTSIDE RECORDS SUMMARY | 2024-05-29 14:20 | XMS_ITS | Encounter Summary ---
Author Organization [place] Address [facility] [place] [address] Care Team Providers Care Land Management Forester Name Role Phone Abbey Bagley PA-C Unavailable Unavailable Abbey Bagley PA-C Primary Care Provider Kelley Ko DO Unavailable Ino Robbins MD Unavailable Encounter Details Date Type Department Care Team (Late st Contact Info) Description 11/22/2022 [facility] [address] [place] [address] Di Sher RN Social History [...] Coronavirus/COVID-19? No / Unsure 11/17/2022 6:32 PM TIE TAPE MACHINE OPERATOR documented as of this encounter Plan of Treatment Not on file documented as of this encounter Visit Diagnoses Not on filedocumented in this encounter Additional Health Concerns Assessment Noted Time PHQ-9 Depression Total Score: 19 021 3:52 PM CDT documented as of this encounter Care Teams Land Management Forester Relationship Specialty Start Date End Date Abbey Bagley PA-C PCP - General Physician Director Franchise Sales 08/15/20 Abbey Bagley PA-C Physician Director Franchise Sales 04/11/20 05/02/23 Kelley Diane DO [address] [address] Assigned OBGYN Provider 12/04/22 Ino Robbins MD [address] [place] [address] Assigned OBGYN Provider 01/01/23 documented as of this encounter
--- OUTSIDE RECORDS SUMMARY | 2024-05-29 14:20 | XMS_ITS | Encounter Summary ---
Author Organization [place] Address [facility] [address] Care Team Providers Care Rn Hedis Name Role Phone Abbey Bagley PA-C Unavailable Unavailable Abbey Bagley PA-C Primary Care Provider Kelley Ko DO Unavailable [phone] Ino Robbins MD Unavailable Encounter Details Date Type Department Care Team (Late st Contact Info) Description 11/23/2022 [facility] Medical Advice [address] [place] [address] Di Sher RN Social History Tobacco Use Types Packs/Day Years Used Date Smoking Tobacco: Some Days Cigarettes Smokeless Tobacco: Never Alcohol Use Standard Drinks/Week Comments Not Currently 0 (1 standard drink = 0.6 oz pur e alcohol) Seldom PHQ-2 Answer Date Recorded PHQ-2 Score 2 11/26/2022 [place] Depression Scale Answer Date Recorded [place] Depression Score 13 03/10/2021 Last EPDS Self [...] Coronavirus/COVID-19? No / Unsure 11/26/2022 1:26 PM BINDER STRIPPER MACHINE documented as of this encounter Plan of Treatment Not on file documented as of this encounter Visit Diagnoses Not on filedocumented in this encounter Additional Health Concerns Assessment Noted Time PHQ-9 Depression Total Score: 19 021 3:52 PM CDT documented as of this encounter Care Teams Rn Hedis Relationship Specialty Start Date End Date Abbey Bagley PA-C PCP - General Physician Customer Service And Sales Consultant 08/15/20 Abbey Bagley PA-C Physician Customer Service And Sales Consultant 04/11/20 05/02/23 Kelley Diane DO [address] [address] Assigned OBGYN Provider 12/04/22 Ino Robbins MD [address] [place] [address] Assigned OBGYN Provider 01/01/23 documented as of this encounter
== END 2024-05-29 14:17 | disposition home or self-care (01) ==
PROVIDERS: PCP Nurse Practitioner Family; Visit Provider Nurse Practitioner Family
DX: R10.13 Epigastric pain (principal); K59.00 Constipation, unspecified
CPT/HCPCS: 84443; 86231; 86258; 86364

== ENCOUNTER 2024-05-31 10:09 | Outpatient (CLI) | payer MEDICAID, SELFPAY | END 2024-05-31 10:10 | disposition home or self-care (01) | LOC: NFLDREF 06-03 18:06 | PROVIDERS: PCP Nurse Practitioner Family; Referring Provider Nurse Practitioner Family; Visit Provider Nurse Practitioner Family | DX: R10.13 Epigastric pain (principal) | CPT/HCPCS: 87338 ==

== ENCOUNTER 2024-08-15 12:03 | Outpatient (CLI) | payer MEDICAID, SELFPAY ==
--- OUTSIDE RECORDS SUMMARY | 2024-08-15 12:08 | XMS_ITS | Encounter Summary ---
Author Organization [place] Address [address] [facility] [place] [address] Care Team Providers Care Political Aide Name Role Phone Abbey Bagley PA-C Unavailable Unavailable Abbey Bagley PA-C Primary Care Provider Unava ilable Ino Robbins MD Unavailable [phone] Reason for Visit * Reason Onset Date Comments Care 04/26/2023 Encounter Details Date Type Department Care Team (Late st Contact Info) Description 04/26/2023 MyC Medical Advice [facility] [address] [place] [phone] Ino Robbins MD [address] [place], [place] [phone] Care Social History Tobacco Use Types Packs/Day Years Used Date Smoking Tobacco: Former Cigarettes Q uit: 03/10/2023 Passive Smoke Exposure: Never Smokeless Tobacco: Never Alcohol Use Standard Drinks/Week Comments Not Currently 0 (1 standard drink = 0.6 oz pur e alcohol) Seldom PHQ-2 Answer Date Recorded PHQ-2 Score 0 04/14/2023 [place] Depression Scale Answer Date Recorded [place] Depression Score 13 03/10/2021 Last EPDS Self Harm Result Not on file 03/10 Education Answer Date Recorded What is the highest level of school you have completed or the highest degree you have received? 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
--- OUTSIDE RECORDS SUMMARY | 2024-08-15 12:08 | XMS_ITS | Encounter Summary ---
Author Organization [place] Address [address] [facility] [place] [address] Care Team Providers Care Supervisor Wrapping Room Name Role Phone Abbey Bagley PA-C Unavailable Unavailable Abbey Bagley PA-C Primary Care Provider Kelley Ko DO Unavailable [phone] Ino Robbins MD Unavailable Encounter Details Date Type Department Care Team (Late st Contact Info) Description 11/23/2022 [facility] [place] [address] [place] [address] Di Sher RN Social History Tobacco Use Types Packs/Day Years Used Date Smoking Tobacco: Some Days Cigarettes Smokeless Tobacco: Never Alcohol Use Standard Drinks/Week Comments Not Currently 0 (1 standard drink = 0.6 oz pur e alcohol) Seldom PHQ-2 Answer Date Recorded PHQ-2 Score 2 11/26/2022 [place] Depression Scale Answer Date Recorded [place] Depression Score 13 03/10/2021 Last EPDS Self Harm Result Not on file 03/10 Education Answer Date Recorded What is the highest level of school you have completed or the highest degree you have received? 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 No / Unsure 11/26/2022 1:26 PM AUTOMOTIVE ENGINEERING TEACHER documented as of this encounter Plan of Treatment Not on file documented as of this encounter Visit Diagnoses Not on filedocumented in this encounter Additional Health Concerns Assessment Noted Time PHQ-9 Depression Total Score: 19 021 3:52 PM CDT documented as of this encounter Care Teams Supervisor Wrapping Room Relationship Specialty Start Date End Date Abbey Bagley PA-C PCP - General Physician Security Sales Manager 08/15/20 Abbey Bagley PA-C Physician Security Sales Manager 04/11/20 05/02/23 Kelley Diane DO [address] [address] Assigned OBGYN Provider 12/04/22 Ino Robbins MD [address] [place] [address] Assigned OBGYN Provider 01/01/23 documented as of this encounter
--- OUTSIDE RECORDS SUMMARY | 2024-08-15 12:08 | XMS_ITS | Encounter Summary ---
Author Organization [place] Address [address] [facility] [place] [address] Care Team Providers Care Tools And Parts Attendant Name Role Phone Abbey Bagley PA-C Unavailable Unavailable Abbey Bagley PA-C Primary Care Provider Unava ilable Ino Robbins MD Unavailable Azul Gilman DO Unavailable [phone] Kelley Diane DO Unavailable [phone] Ino Robbins MD Unavailable Encounter Details Date Type Department Care Team (Late st Contact Info) Description 04/07/2021 MyC Medical Advice [facility] [address] [place] [phone] Ino Robbins MD [address] [place], [place] [phone] Social History Tobacco Use Types Packs/Day Years Used Date Smoking Tobacco: Every Day Cigarettes Smokeless Tobacco: Never Alcohol Use Standard Drinks/Week Comments Not Currently 0 (1 standard drink = 0.6 oz pur e alcohol) Seldom PHQ-2 Answer Date Recorded PHQ-2 Score 6 02/19/2021 [place] Depression Scale Answer Date Recorded [place] Depression Score 13 03/10/2021 Last EPDS Self Harm Result Not on file 03/10 Comments No Sex and Gender Information Value Date Recorded Sex Assigned at Female 07/13/2020 10:08 AM CDT Legal Sex Female 4:48 AM SUMMER ANALYST Gender Identity Female 07/13/2020 10:08 AM CDT Sexual Orientation Bisexual 07/13/2020 10 :08 AM CDT Occupation Industry Job Start Date Job End Date not working Not on file Not on file Not on file COVID-19 Exposure Response Date [...] documented as of this encounter Care Teams Tools And Parts Attendant Relationship Specialty Start Date End Date Abbey Bagley PA-C PCP - General Physician Script Worker 08/15/20 Abbey Bagley PA-C Physician Script Worker 04/11/20 05/02/23 Ino Robbins MD [address] [place] [address] Assigned OBGYN Provider 03/08/21 Azul Gilman DO [address] [place] [address] Assigned Heart and Vascular Provider 03/08/21 09/10/22 Kelley Diane DO [address] [place] [address] Assigned OBGYN Provider 12/04/22 Ino Robbins MD [address] [place] [address] Assigned OBGYN Provider 01/01/23 documented as of this encounter
--- OUTSIDE RECORDS SUMMARY | 2024-08-15 12:08 | XMS_ITS | Encounter Summary ---
Author Organization [place] Address [facility] [place] [address] Care Team Providers Care Pattern And Chain Maker Name Role Phone Abbey Bagley PA-C Unavailable Unavailable Abbey Bagley PA-C Primary Care Provider Kelley Ko DO Unavailable Ino Robbins MD Unavailable Encounter Details Date Type Department Care Team (Late st Contact Info) Description 11/22/2022 [facility] Medical Advice [address] [place] [address] Di Sher RN Social History Tobacco Use Types Packs/Day Years Used Date Smoking Tobacco: Every Day Cigarettes Smokeless Tobacco: Never Alcohol Use Standard Drinks/Week Comments Not Currently 0 (1 standard drink = 0.6 oz pur e alcohol) Seldom PHQ-2 Answer Date Recorded PHQ-2 Score 2 11/26/2022 [place] Depression Scale Answer Date Recorded [place] Depression Score 13 03/10/2021 Last EPDS Self Harm Result Not on file 03/10 Comments Yes Sex and Gender Information Value Date Recorded Sex Assigned at Female 07/13/2020 10:08 AM CDT Legal Sex Female 4:48 AM WET MACHINE TENDER Gender Identity Female 07/13/2020 10:08 AM CDT [...] Coronavirus/COVID-19? No / Unsure 11/17/2022 6:32 PM WET MACHINE TENDER documented as of this encounter Plan of Treatment Not on file documented as of this encounter Visit Diagnoses Not on filedocumented in this encounter Additional Health Concerns Assessment Noted Time PHQ-9 Depression Total Score: 19 021 3:52 PM CDT documented as of this encounter Care Teams Pattern And Chain Maker Relationship Specialty Start Date End Date Abbey Bagley PA-C PCP - General Physician Cistern Room Working Supervisor 08/15/20 Abbey Bagley PA-C Physician Cistern Room Working Supervisor 04/11/20 05/02/23 Kelley Diane DO [address] [address] Assigned OBGYN Provider 12/04/22 Ino Robbins MD [address] [place] [address] Assigned OBGYN Provider 01/01/23 documented as of this encounter
--- OUTSIDE RECORDS SUMMARY | 2024-08-15 12:08 | XMS_ITS | Encounter Summary ---
Author Organization [place] Address [address] [facility] [place] [address] Care Team Providers Care Environmental Technology Professor Name Role Phone Abbey Bagley PA-C Unavailable Unavailable Abbey Bagley PA-C Primary Care Provider Kelley Ko DO Unavailable [phone] Ino Robbins MD Unavailable [phone] Encounter Details Date Type Department Care Team (Late st Contact Info) Description 12/07/2022 [facility] Medical Advice [facility] [address] [place] [id number] Diana Rainey, RN Social History Tobacco Use [...] AM CDT Legal Sex Female 4:48 AM TRANSPORT SPECIALIST Gender Identity Female 07/13/2020 10:08 AM CDT Sexual Orientation Bisexual 07/13/2020 10 :08 AM CDT Occupation Industry Job Start Date Job End Date 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 No / Unsure 11/26/2022 1:26 PM TRANSPORT SPECIALIST documented as of this encounter Plan of Treatment Not on file documented as of this encounter Visit Diagnoses Not on filedocumented in this encounter Additional Health Concerns Assessment Noted Time PHQ-9 Depression Total Score: 19 021 3:52 PM CDT documented as of this encounter Care Teams Environmental Technology Professor Relationship Specialty Start Date End Date Abbey Bagley PA-C PCP - General Physician Pattern Stamper 08/15/20 Abbey Bagley PA-C Physician Pattern Stamper 04/11/20 05/02/23 Kelley Diane DO [address] [address] Assigned OBGYN Provider 12/04/22 Ino Robbins MD [address] [place] [address] Assigned OBGYN Provider 01/01/23 documented as of this encounter
--- OUTSIDE RECORDS SUMMARY | 2024-08-15 12:08 | XMS_ITS | Encounter Summary ---
Author Organization [place] Address [facility] [place] [address] Care Team Providers Care Line Walker Name Role Phone Abbey Bagley PA-C Unavailable Unavailable Abbey Bagley PA-C Primary Care Provider Unava ilable Ino Robbins MD Unavailable Azul Gilman DO Unavailable [phone] Kelley Diane DO Unavailable [phone] Ino Robbins MD Unavailable Reason for Visit [...] Answer Date Recorded PHQ-2 Score 6 02/19/2021 [place] Depression Scale Answer Date Recorded [place] Depression Score 13 03/10/2021 Last EPDS Self Harm Result Not on file 03/10 Comments No Sex and Gender Information Value Date Recorded Sex Assigned at Female 07/13/2020 10:08 AM CDT Legal Sex Female 4:48 AM KITCHEN HAND Gender Identity Female 07/13/2020 10:08 AM CDT [...] documented as of this encounter Care Teams Line Walker Relationship Specialty Start Date End Date Abbey Bagley PA-C PCP - General Physician Director Group Sales 08/15/20 Abbey Bagley PA-C Physician Director Group Sales 04/11/20 05/02/23 Ino Robbins MD [address] [place] [address] Assigned OBGYN Provider 03/08/21 Azul Gilman DO [address] [place] [address] Assigned Heart and Vascular Provider 03/08/21 09/10/22 Kelley Diane DO [address] [place] [address] Assigned OBGYN Provider 12/04/22 Ino Robbins MD [address] [place] [address] Assigned OBGYN Provider 01/01/23 documented as of this encounter
--- OUTSIDE RECORDS SUMMARY | 2024-08-15 12:08 | XMS_ITS | Clinical Summary ---
Author Organization [place] Address [address] [place] [address] Care Team Providers Care Executive Administrative Asst Name Role Phone Abbey Bagley PA-C Primary Care Provider Ino Ken MD Unavailable [phone] Allergies No known active allergies Medications albuterol (PROAIR HFA/PROVENTIL HFA/VENTOLIN HFA) 108 (90 Base) MCG/ACT inhaler Inhale 1 puff into the lungs 0 Active sertraline (ZOLOFT) 50 MG tabletIndications :Current mild episode of major depressive disorder, unspecified whether recurrent (H) Take 1 tablet (50 mg) by mouth daily 30 tablet 3 3 Active valACYclovir (VALTREX) 500 MG tabletIndications :HSV (herpes simplex virus) infection TAKE 1 TABLET BY MOUTH EVERY DAY 90 tablet 1 3 Active Vit-Fe Fumarate-FA ( MULTIVITAMIN W/IRON) 27-0.8 MG tabletIndications : care in third trimester Take 1 tablet by mouth daily 90 tablet 3 3 Active ibuprofen (ADVIL/MOTRIN) 600 MG tabletIndications :Vaginal delivery Take 1 tablet (600 mg) by mouth every 6 hours as needed for mild pain or moderate pain Take w/ food 30 tablet 3 Active Active Problems Problem Noted Date Diagnosed Date anemia 05/04/2023 Depression 11/23/2022 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 02/18/2021 Overview (02/18/2021): valtrex prn, lidocaine Vaginal delivery 01/14/2021 Iron deficiency 12/23/2020 Mild intermittent asthma 12/23/2020 Overview (02/18/2021): albuterol as needed albuterol as needed Chronic GERD 01/24/2020 PTSD (post-traumatic stress disorder) 08/10/2016 Resolved Problems Problem Noted Date Diagnosed Date Resolved Date Encounter for triage in patient 04/09/2023 05/04/2023 Club foot of fetus affecting antepartum care of mother 01/13/2021 05/04/2023 Echogenic intracardiac focus of fetus on ultrasound 01/13/2021 05/04/2023 Herpes simplex virus (HSV) infection 09/09/2019 02/18/2021 Overview (02/18/2021): Type 1 HSV per PCR 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 Mirena IUD inserted : Due for removal 05/2026/200 5 05/04/2023 Immunizations Name Administration Dates Next [...] you have received? 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 on file Last Filed Vital Signs Vital [...] PREVENTIVE VISIT 10/21/2022 10/21/2021, 08/20 PAP 2023 PHQ-9 09/29/2023 03/30/2023, 08/0 02/2021, 02/19/2021 CHLAMYDIA SCREENING 11/26/2023 11/26/2022, 09/21/2022, 12/23/2020, Additional history exists COVID-19 Vaccine ( - season) 2024 09/30/2021, 2021 INFLUENZA VACCINE (#1) 2024 , 10/21/2021, 07/01/2020, Additional history exists DTAP/TDAP/TD IMMUNIZATION (8 - Td or Tdap) 03/30/2033 03/30/2023, 01/01/2021, 02/19/2014, Additional history exists RSV VACCINE (1 - 1-dose 75+ series) 2077 MENINGITIS IMMUNIZATION Completed 11/27/19 20, 02/19/2014, 02/19/2014 HEPATITIS B IMMUNIZATION Completed 022, 07/16/2004, 2002, Additional history exists HEPATITIS C SCREENING Completed 11/26/2022 HIV SCREENING Completed 11/26/2022, 09/11/2020 RSV MONOCLONAL ANTIBODY Aged Out No l onger eligible based on patient's age to complete this topic Procedures Procedure Name Priority Date/Time Associated Diagnosis Comments HIV ANTIGEN ANTIBODY COMBO Routine 11/26/2022 2:16 PM WEB COMMUNICATIONS SPECIALIST Encounter for supervision of other normal in second trimester HEPATITIS C ANTIBODY Routine 11/26/2022 2:16 PM WEB COMMUNICATIONS SPECIALIST Encounter for supervision of other normal in second trimester CHLAMYDIA TRACHOMATIS PCR Routine 11/26/2022 1:42 PM WEB COMMUNICATIONS SPECIALIST Screen for STD (sexually transmitted disease) from Last 3 Months or Most Recently Relevant to Health Maintenance Results * HIV Antigen Antibody Combo (11/26/2022 2:16 PM WEB COMMUNICATIONS SPECIALIST) HIV Antigen Antibody Combo Nonreactive Nonreactive 11/27/2022 2:46 PM WEB COMMUNICATIONS SPECIALIST [facility]/PROT/EN DO Comment:HIV-1 p24 Ag & HIV-1 /HIV-2 Ab Not Detected Blood BLOOD SPECIMEN / Unknown Venipuncture / Unknown 11/26/2022 2:16 PM WEB COMMUNICATIONS SPECIALIST 11/26/2022 2:28 PM WEB COMMUNICATIONS SPECIALIST us Kelley Diane DO LAB - BLOOD ORDERABLES Fi nal Result UM SPECIALTY CORE/PROT/ENDO UM Specialty Core/Prot/Endo [address] [facility] [address] [facility], [address] [place] [address], [facility] [phone] * Hepatitis C antibody (11/26/2022 2:16 PM WEB COMMUNICATIONS SPECIALIST) Pathologist [facility] Hepatitis C Antibody Nonreactive Nonreactive 11/27/2022 2:46 PM WEB COMMUNICATIONS SPECIALIST [facility] SPECIAL[facility] CORE/PROT/EN DO Blood BLOOD SPECIMEN / Unknown Venipuncture / Unknown 11/26/2022 2:16 PM WEB COMMUNICATIONS SPECIALIST 11/26/2022 2:28 PM WEB COMMUNICATIONS SPECIALIST Narrative [facility] SPECIALTY CORE/PROT/ENDO - 11/27/2022 2:46 PM WEB COMMUNICATIONS SPECIALIST Assay performance characteristics have not been established for newborns, infants, and children. Kelley Diane DO LAB - BLOOD ORDERABLES Fi nal Result SPECIALTY CORE/PROT/ENDO Specialty Core/Prot/Endo [address] [facility], [address] [place] [address], [facility] [phone] * CHLAMYDIA TRACHOMATIS PCR (11/26/2022 1:42 PM WEB COMMUNICATIONS SPECIALIST) Pathologist [facility] Chlamydia trachomatis Negative Negative 11/27/2022 12:55 PM WEB COMMUNICATIONS SPECIALIST [facility] Comment:A negative result by supervisor properties mediated amplification does not preclude the presence of C. trachomatis infection because results are dependent on proper and adequate collection, absence of inhibitors and sufficient rRNA to be detected. Swab CERVIX UTERI STRUCTURE / Unknown Non-blood Collection / Unknown 11/26/2022 1:42 PM WEB COMMUNICATIONS SPECIALIST 11/26/2022 3:02 PM WEB COMMUNICATIONS SPECIALIST Kelley Diane DO LAB - MICRO GENERAL ORDER BROOKE Final Result [facility] Inf. Diseases Diag. Lab [address] [facility], [address] [place] [address], [facility] [phone] from Last 3 Months or Most Recently Relevant to Health Maintenance Insurance MEDICAID [place] Advance Directives For more information, please contact: [phone] * Full Code (Latest Code Status on [...] Discussion with patie nt/ legal decision maker Care Teams Executive Administrative Asst Relationship Specialty Start Date End Date Abbey Bagley PA-C PCP - General Physician Flight Engineer Inspector 08/15/20 Ino Robbins MD [address] [place] [address] Assigned OBGYN Provider 01/01/23
--- OUTSIDE RECORDS SUMMARY | 2024-08-15 12:08 | XMS_ITS | Referral Summary ---
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 [...] ANTIGEN ANTIBODY COMBO Routine 11/26/2022 2:16 PM BELT KNIFE FEEDER Encounter for supervision of other normal in second trimester HEPATITIS C ANTIBODY Routine 11/26/2022 2:16 PM BELT KNIFE FEEDER Encounter for supervision of other normal in second trimester CHLAMYDIA TRACHOMATIS PCR Routine 11/26/2022 1:42 PM BELT KNIFE FEEDER Screen for STD (sexually transmitted disease) from Last 3 Months or Most Recently Relevant to Health Maintenance Results * HIV Antigen Antibody Combo (11/26/2022 2:16 PM BELT KNIFE FEEDER) HIV Antigen Antibody Combo Nonreactive Nonreactive 11/27/2022 2:46 PM BELT KNIFE FEEDER SPECIALTY CORE/PROT/EN DO Comment:HIV-1 p24 Ag & HIV-1 /HIV-2 Ab Not Detected Blood BLOOD SPECIMEN / Unknown Venipuncture / Unknown 11/26/2022 2:16 PM BELT KNIFE FEEDER 11/26/2022 2:28 PM BELT KNIFE FEEDER Kelley Diane DO LAB - BLOOD ORDERABLES Fi nal Result [facility] SPECIALTY CORE/PROT/ENDO Specialty Core/Prot/Endo [address] [facility], [address] [phone] * Hepatitis C antibody (11/26/2022 2:16 PM BELT KNIFE FEEDER) [facility] Hepatitis C Antibody Nonreactive Nonreactive 11/27/2022 2:46 PM BELT KNIFE FEEDER SPECIALTY CORE/PROT/EN DO Blood BLOOD SPECIMEN / Unknown Venipuncture / Unknown 11/26/2022 2:16 PM BELT KNIFE FEEDER 11/26/2022 2:28 PM BELT KNIFE FEEDER Narrative SPECIALTY CORE/PROT/ENDO - 11/27/2022 2:46 PM BELT KNIFE FEEDER Assay performance characteristics have not been established for newborns, infants, and children. us Kelley Diane DO LAB - BLOOD ORDERABLES Fi nal Result Performing Organization Address [facility] Co de Phone Number SPECIALTY CORE/PROT/ENDO Specialty Core/Prot/Endo [address] [facility], [address] [address], [facility] [phone] * CHLAMYDIA TRACHOMATIS PCR (11/26/2022 1:42 PM BELT KNIFE FEEDER) [facility] Chlamydia trachomatis Negative Negative 11/27/2022 12:55 PM BELT KNIFE FEEDER [facility] Comment:A negative result by supervisor knitting mediated amplification does not preclude the presence of C. trachomatis infection because results are dependent on proper and adequate collection, absence of inhibitors and sufficient rRNA to be detected. Swab CERVIX UTERI STRUCTURE / Unknown Non-blood Collection / Unknown 11/26/2022 1:42 PM BELT KNIFE FEEDER 11/26/2022 3:02 PM BELT KNIFE FEEDER us Kelley Diane DO LAB - MICRO GENERAL ORDER BROOKE Final Result [facility] Inf. Diseases Diag. Lab [address] [facility], [address] [place] [address], [facility] [phone] from Last 3 Months or Most Recently Relevant to Health Maintenance Insurance MEDICAID [place] Advance Directives For more information, please contact: [phone] * Full Code (Latest Code Status on [...] patie nt/ legal decision maker Care Teams Pit Worker Power Shovel Relationship Specialty Start Date End Date Abbey Bagley PA-C PCP - General Physician Motion Picture Film Examiner 08/15/20 Ino Robbins MD [address] [place] [address] Assigned OBGYN Provider 01/01/23
--- OUTSIDE RECORDS SUMMARY | 2024-08-15 12:08 | XMS_ITS | Clinical Summary ---
Author Organization [facility] Address [place], [place] [address] Care Team Providers Care Linux Kernel Engineer Name Role Phone Staff, Other Clinical Primary [...] 05/05/2023 History of depression 05/05/2023 Depression 09/21/2022 Overview (09/21/2022): Sertraline. Past trial: lexapro (not effective) Bipolar disorder 10/21/2021 Chronic GERD 01/24/2020 PTSD (post-traumatic stress disorder) 08/10/2016 Generalized anxiety disorder 08/10/2016 Panic disorder 08/10/2016 Vitamin D deficiency Iron deficiency Mild intermittent asthma Overview (07/01/2020): albuterol as needed 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 Resolved Problems Problem Noted Date Diagnosed Date Resolved Date Depression 09/21/2022 09/21/2022 Overview (09/21/2022): on fluoxetine. Past trial: lexapro (not effective) [...] Overweight 02/19/2014 07/01/2020 Encounter for insertion of Mirena IUD 02/05/2005 06/24/2021 BRANDON (generalized anxiety disorder) 01/24/2020 Immunizations Name Administration Dates Next Due COVID-19 vaccine (PartnerbyteBio NTech 30mcg/0.3mL) PF, MDV 2021 DTaP 05/23/2007, 7,08/27/2004,08/27,2002,2002 [id number] (Pediarix) 07/16/2004,07/16/2004 HIB PRP-OMP (PedvaxHIB) 07/16/2004 HIB [...] 10/21/2021,07/01/2020,08/20/2008 Influenza,LAIV4 Live Intrana dee (Flumist) 08/20/2008,08/20/2008 MENINGOCOCCAL VACCINE 2 VIAL [id number] (MENVEO) 11/27/2019,02/19/2014 MMR 05/23/2007, 7,07/16/2004,07/16 Meningococcal, Unspecified 02/19/2014 Pneumococcal conj 7-Valent (Prevnar [...] Used Date Smoking Tobacco: Former Cigarettes 0.3 5.8 S tarted: 2019 Smokeless Tobacco: Former Tobacco [...] Austin Ledezma MD Complications: Intolera nce Delivery Location:[facility] ( LABOR AND DELIVERY) 2022 [...] (3 - 3-dose series) 01/13/2022 10/21/2021, 07/01/2020 Chlamydia for age 16-24 09/21/2023 09/21/20, 09/11/2020, 07/01/2020, Additional history exists Depression screening for age 12+ 09/24/2023 09/24/2022, 09/22/2022, 09/22/2022, Additional history exists BMI (ht and wt on same day) for age 18+ 05/11/2024 05/11/2023, 09/21/2022, 06/01/2021, Additional history exists COVID-19 vaccine series ( season) 2024 09/30/2021, 2021 Influenza for age 9-49 06/10/2024 , 10/21/2021, [...] - Increase reliability General Yes Praful Orozco, BRAKE REPAIRER HYDRAULIC, INTERPRETIVE PROGRAM COORDINATOR Note: Goal identified during: Initial Screening Status: [...] in two weeks to review her [facility] goals and get a status update on the outcome of her communication with resources in the community. Proposed timeline for goal completion: Ongoing until resolved. Notes: None. Date of follow up: 08/04/20 Procedures Procedure Name Priority Date/Time Associated Diagnosis Comments K [employer] SCHOOL PROFESSIONAL THIN PREP PAP SCREEN IMAGED Routine 07/01/2023 3:00 PM CDT GC CHLAMYDIA TRACH PROBE Routine 09/21/2022 1:00 PM MORNING CAREGIVER Cramping affecting , antepartum ANTI HIV 1/2 Routine 09/11/2020 8:23 AM MORNING CAREGIVER Encounter for supervision of normal first in first trimester ANTI HCV Routine 09/11/2020 8:23 AM MORNING CAREGIVER Encounter for supervision of normal first in first trimester from Last 3 Months or Most Recently Relevant to Health Maintenance Results * K 12 SCHOOL PROFESSIONAL THIN PREP PAP SCREEN IMAGED (07/01/2023 3:00 PM CDT) Case Report Gynecologic Cytology Report ? Case: [id number] ? Authorizing Provider: ??Denise Fry, LUIS ANTONIO ?? Collected: ? 07/01/2023 1500 ? Ordering Location: ? [facility] ?Received: ?07/05/2023 1303 ? First Screen: ?Ino Enriquez ? Specimen: ?K [employer] S[employer]OL PROFESSIONAL ThinPrep Vial Screening, Cervical ? 07/12/2023 9:32 AM CDT [facility] INTERPRETATION/ RESULT NEGATIVE FOR INTRAEPITHELIAL LESION OR MALIGNANCY (NIL) (none) 07/12/2023 9:32 AM CDT [facility] IMEN ADEQUACY Satisfactory for evaluation Endocervical component present Scant cellularity 07/12/2023 9:32 AM CDT [facility] HPV REQUEST HPV not requested 2022 9:32 AM CDT [facility] Date of LMP 06/15/2023 07/12/2023 9:32 AM CDT [facility] Last Pap Result First Pap/Unknown 9:32 AM CDT [facility] Abnormal Pap or Lathrop Bx in last 5 years No 07/12/2023 9:32 AM CDT [facility] Menstrual Status Regular Periods 07/12/2023 9:32 AM CDT [facility] Lathrop Bx Done Today No 07/12/2023 9:32 AM CDT [facility] Additional Information 07/12/2023 9:32 AM CDT [facility] Comment: Interpreted at [facility] [place] [address] Automated Review Successful 07/12/2023 9:32 AM CDT [facility] Comment:Specimen processed s uccessfully by automated biometrics head device, ThinPrep Imaging System, [employer] Note The pap test is a [...] and malignant lesions. 07/12/2023 9:32 AM CDT [facility] Other (Cervical) 07/01/2023 3:00 PM CDT 07/05/2023 1:03 PM CDT Denise Fry NP PATHOLOGY/CYTOLOG Y [facility] [address] [place] [address], [place] * GC CHLAMYDIA TRACH PROBE (09/21/2022 1:00 PM MORNING CAREGIVER) CHLAMYDIA PROBE Negative 5:24 PM MORNING CAREGIVER [facility] N GONORRHOEAE PROBE Negative 09/22/2022 5:24 PM MORNING CAREGIVER [facility] Other VAGINAL SWAB / Unknown Non-Blood / Unknown 09/21/2022 1:00 PM MORNING CAREGIVER 09/21/2022 1:49 PM MORNING CAREGIVER Deborah Senior NP MICROBIOLOGY Performing Organization Address City/[facility]/ZIP Co de Phone Number [facility] [address] [place] [address], [place] * ANTI HCV (09/11/2020 8:23 AM MORNING CAREGIVER) HEPATITIS C ANTIBODY Non-React kamran Non-React kamran 09/11/2020 12:51 PM MORNING CAREGIVER [facility] Comment:Antibodies to HCV no t detected; does not exclude the possibility of exposure to HCV. Blood BLOOD SPECIMEN / Unknown Butterfly / Unknown 09/11/2020 8:23 AM MORNING CAREGIVER 09/11/2020 8:24 AM MORNING CAREGIVER Kirashai Turner DO SEND OUTS [facility] [address] [place] [address], * ANTI HIV 1/2 (09/11/2020 8:23 AM MORNING CAREGIVER) HIV-1/HIV-2 ANTIBODY Non-Reacti ve Non-Reacti ve 09/11/2020 12:38 PM MORNING CAREGIVER [facility] [employer] [facility] [employer] [facility] TRAL LABORATORY Comment:HIV-1 p24 and HIV-1/ HIV-2 Ab not detected. Blood BLOOD SPECIMEN / Unknown Butterfly / Unknown 09/11/2020 8:23 AM MORNING CAREGIVER 09/11/2020 8:24 AM MORNING CAREGIVER Kira Turner DO SEND OUTS Performing Organization Address City/[facility]/ZIP Co de Phone Number [facility]AL LABORATORY [address] [place] [address], from Last 3 Months or Most Recently [...] 3:46 PM 08/18/2016 1:40 PM Care Teams Linux Kernel Engineer Relationship Specialty Start Date End Date Staff, Other Clinical . PCP - General 06/05/23
== END 2024-08-15 12:04 | disposition home or self-care (01) ==
PROVIDERS: PCP Nurse Practitioner Family; Visit Provider Registered Nurse
DX: N93.9 Abnormal uterine and vaginal bleeding, unspecified (principal); N64.3 Galactorrhea not associated with childbirth
CPT/HCPCS: 82565; 82670; 83001; 83002; 84146; 84443; 84520

== ENCOUNTER 2024-08-23 15:45 | Outpatient (CLI) | payer MEDICAID, SELFPAY ==
--- OUTSIDE RECORDS SUMMARY | 2024-08-23 15:51 | XMS_ITS | Encounter Summary ---
Author Organization [place] Address [address] [facility] [place] [address] Care Team Providers Care Port Captain Name Role Phone Abbey Bagley PA-C Unavailable Unavailable Abbey Bagley PA-C Primary Care Provider Kelley Ko DO Unavailable [phone] Ino Robbins MD Unavailable Encounter Details Date Type Department Care Team (Late st Contact Info) Description 11/23/2022 [facility] [place] [address] [place] [address] Di Sher RN Social History Tobacco Use Types Packs/Day Years Used Date Smoking Tobacco: Some Days Cigarettes Smokeless Tobacco: Never Alcohol Use Standard Drinks/Week Comments Not Currently 0 (1 standard drink = 0.6 oz pur e alcohol) Seldom PHQ-2 Answer Date Recorded PHQ-2 Score 2 11/26/2022 [place] Depression Scale Answer Date Recorded [place] Depression Score 13 03/10/2021 Last EPDS Self Harm Result Not on file 03/10 Education Answer Date Recorded What is the highest level of school you have completed or the highest degree you have received? 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 No / Unsure 11/26/2022 1:26 PM ENVIRONMENTAL SAMPLING TECHNICIAN documented as of this encounter Plan of Treatment Not on file documented as of this encounter Visit Diagnoses Not on filedocumented in this encounter Additional Health Concerns Assessment Noted Time PHQ-9 Depression Total Score: 19 021 3:52 PM CDT documented as of this encounter Care Teams Port Captain Relationship Specialty Start Date End Date Abbey Bagley PA-C PCP - General Physician Allergist/Immunologist 08/15/20 Abbey Bagley PA-C Physician Allergist/Immunologist 04/11/20 05/02/23 Kelley Diane DO [address] [address] Assigned OBGYN Provider 12/04/22 Ino Robbins MD [address] [place] [address] Assigned OBGYN Provider 01/01/23 documented as of this encounter
--- OUTSIDE RECORDS SUMMARY | 2024-08-23 15:51 | XMS_ITS | Clinical Summary ---
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 on file No [...] ANTIGEN ANTIBODY COMBO Routine 11/26/2022 2:16 PM HAMMERER Encounter for supervision of other normal in second trimester HEPATITIS C ANTIBODY Routine 11/26/2022 2:16 PM HAMMERER Encounter for supervision of other normal in second trimester CHLAMYDIA TRACHOMATIS PCR Routine 11/26/2022 1:42 PM HAMMERER Screen for STD (sexually transmitted disease) from Last 3 Months or Most Recently Relevant to Health Maintenance Results * HIV Antigen Antibody Combo (11/26/2022 2:16 PM HAMMERER) HIV Antigen Antibody Combo Nonreactive Nonreactive 11/27/2022 2:46 PM HAMMERER [facility]PROT/EN DO Comment:HIV-1 p24 Ag & HIV-1 /HIV-2 Ab Not Detected Blood BLOOD SPECIMEN / Unknown Venipuncture / Unknown 11/26/2022 2:16 PM HAMMERER 11/26/2022 2:28 PM HAMMERER us Kelley Diane DO LAB - BLOOD ORDERABLES Fi nal Result UM SPECIALTY CORE/PROT/ENDO [facility] Specialty Core/Prot/Endo [address] [facility] [address] [facility], [address] [place] [address], [place] [phone] * Hepatitis C antibody (11/26/2022 2:16 PM HAMMERER) Pathologist [facility] Hepatitis C Antibody Nonreactive Nonreactive 11/27/2022 2:46 PM HAMMERER [facility] SPECIAL[facility] CORE/PROT/EN DO Blood BLOOD SPECIMEN / Unknown Venipuncture / Unknown 11/26/2022 2:16 PM HAMMERER 11/26/2022 2:28 PM HAMMERER Narrative [facility] SPECIALTY CORE/PROT/ENDO - 11/27/2022 2:46 PM HAMMERER Assay performance characteristics have not been established for newborns, infants, and children. Kelley Diane DO LAB - BLOOD ORDERABLES Fi nal Result SPECIALTY CORE/PROT/ENDO Specialty Core/Prot/Endo [address] [facility], [address] [place] [address], [place] [phone] * CHLAMYDIA TRACHOMATIS PCR (11/26/2022 1:42 PM HAMMERER) Pathologist [facility] Chlamydia trachomatis Negative Negative 11/27/2022 12:55 PM HAMMERER [facility] Comment:A negative result by rfid engineer mediated amplification does not preclude the presence of C. trachomatis infection because results are dependent on proper and adequate collection, absence of inhibitors and sufficient rRNA to be detected. Swab CERVIX UTERI STRUCTURE / Unknown Non-blood Collection / Unknown 11/26/2022 1:42 PM HAMMERER 11/26/2022 3:02 PM HAMMERER Kelley Diane DO LAB - MICRO GENERAL ORDER BROOKE Final Result [facility] Inf. Diseases Diag. Lab [address] [facility], [address] [place] [address], [place] [phone] from Last 3 Months or Most Recently Relevant to Health Maintenance Insurance MEDICAID [place] Advance Directives For more information, please contact: [phone] * Full Code (Latest Code Status on [...] patie nt/ legal decision maker Care Teams Expedition Supervisor Relationship Specialty Start Date End Date Abbey Bagley PA-C PCP - General Physician Line Crew Supervisor 08/15/20 Ino Robbins MD [address] [place] [address] Assigned OBGYN Provider 01/01/23
--- OUTSIDE RECORDS SUMMARY | 2024-08-23 15:51 | XMS_ITS | Encounter Summary ---
Author Organization [place] Address [address] [place] [address] Care Team Providers Care Salesperson Handbags Name Role Phone Abbey Bagley PA-C Unavailable Unavailable Abbey Bagley PA-C Primary Care Provider Unava ilable Ino Robbins MD Unavailable Reason for Visit * Reason Onset Date Comments Care 04/26/2023 Encounter Details Date Type Department Care Team (Late st Contact Info) Description 04/26/2023 [facility] Medical Advice [facility] [address] [place] [phone] Ino Robbins MD [address] [place], [place] [address] Care Social History Tobacco Use Types Packs/Day Years Used Date Smoking Tobacco: Former Cigarettes Q uit: 03/10/2023 Passive Smoke Exposure: Never Smokeless Tobacco: Never Alcohol Use Standard Drinks/Week Comments Not Currently 0 (1 standard drink = 0.6 oz pur e alcohol) Seldom PHQ-2 Answer Date Recorded PHQ-2 Score 0 04/14/2023 [place] Depression Scale Answer Date Recorded [place] Depression Score 13 03/10/2021 Last EPDS Self Harm Result Not on file 03/10 Education Answer Date Recorded What is the highest level of school you have completed or the highest degree you have received? 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
--- OUTSIDE RECORDS SUMMARY | 2024-08-23 15:51 | XMS_ITS | Referral Summary ---
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 [...] ANTIGEN ANTIBODY COMBO Routine 11/26/2022 2:16 PM PIPE STRESS ENGINEER Encounter for supervision of other normal in second trimester HEPATITIS C ANTIBODY Routine 11/26/2022 2:16 PM PIPE STRESS ENGINEER Encounter for supervision of other normal in second trimester CHLAMYDIA TRACHOMATIS PCR Routine 11/26/2022 1:42 PM PIPE STRESS ENGINEER Screen for STD (sexually transmitted disease) from Last 3 Months or Most Recently Relevant to Health Maintenance Results * HIV Antigen Antibody Combo (11/26/2022 2:16 PM PIPE STRESS ENGINEER) HIV Antigen Antibody Combo Nonreactive Nonreactive 11/27/2022 2:46 PM PIPE STRESS ENGINEER SPECIALTY CORE/PROT/EN DO Comment:HIV-1 p24 Ag & HIV-1 /HIV-2 Ab Not Detected Blood BLOOD SPECIMEN / Unknown Venipuncture / Unknown 11/26/2022 2:16 PM PIPE STRESS ENGINEER 11/26/2022 2:28 PM PIPE STRESS ENGINEER Kelley Diane DO LAB - BLOOD ORDERABLES Fi nal Result [facility] SPECIALTY CORE/PROT/ENDO Specialty Core/Prot/Endo [address] [facility], [address] [phone] * Hepatitis C antibody (11/26/2022 2:16 PM PIPE STRESS ENGINEER) [facility] Hepatitis C Antibody Nonreactive Nonreactive 11/27/2022 2:46 PM PIPE STRESS ENGINEER SPECIALTY CORE/PROT/EN DO Blood BLOOD SPECIMEN / Unknown Venipuncture / Unknown 11/26/2022 2:16 PM PIPE STRESS ENGINEER 11/26/2022 2:28 PM PIPE STRESS ENGINEER Narrative SPECIALTY CORE/PROT/ENDO - 11/27/2022 2:46 PM PIPE STRESS ENGINEER Assay performance characteristics have not been established for newborns, infants, and children. us Kelley Diane DO LAB - BLOOD ORDERABLES Fi nal Result Performing Organization Address [facility] Co de Phone Number SPECIALTY CORE/PROT/ENDO Specialty Core/Prot/Endo [address] [facility], [address] [address], [facility] [phone] * CHLAMYDIA TRACHOMATIS PCR (11/26/2022 1:42 PM PIPE STRESS ENGINEER) [facility] Chlamydia trachomatis Negative Negative 11/27/2022 12:55 PM PIPE STRESS ENGINEER [facility] Comment:A negative result by whiskey regauger mediated amplification does not preclude the presence of C. trachomatis infection because results are dependent on proper and adequate collection, absence of inhibitors and sufficient rRNA to be detected. Swab CERVIX UTERI STRUCTURE / Unknown Non-blood Collection / Unknown 11/26/2022 1:42 PM PIPE STRESS ENGINEER 11/26/2022 3:02 PM PIPE STRESS ENGINEER us Kelley Diane DO LAB - MICRO GENERAL ORDER BROOKE Final Result [facility] Inf. Diseases Diag. Lab [address] [facility], [address] [place] [address], [facility] [phone] from Last 3 Months or Most Recently Relevant to Health Maintenance Insurance [place]ICAID [place] Advance Directives For more information, please contact: [phone] * Full Code (Latest Code Status on [...] patie nt/ legal decision maker Care Teams Open Claims Representative Relationship Specialty Start Date End Date Abbey Bagley PA-C PCP - General Physician Hotel Guest Service Agent 08/15/20 Ino Robbins MD [address] [place] [address] Assigned OBGYN Provider 01/01/23
--- OUTSIDE RECORDS SUMMARY | 2024-08-23 15:51 | XMS_ITS | Encounter Summary ---
Author Organization [place] Address [address] [facility] [place] [address] Care Team Providers Care Museum Informatics Specialist Name Role Phone Abbey Bagley PA-C Unavailable Unavailable Abbey Bagley PA-C Primary Care Provider Kelley Ko DO Unavailable [phone] Ino Robbins MD Unavailable [phone] Encounter Details Date Type Department Care Team (Late st Contact Info) Description 12/07/2022 [facility] [place] [facility] [address] [place] [phone] Diana Rainey, RN Social History Tobacco Use Types Packs/Day Years Used Date Smoking Tobacco: Some Days Cigarettes Smokeless Tobacco: Never Alcohol Use Standard Drinks/Week Comments Not Currently 0 (1 standard drink = 0.6 oz pur e alcohol) Seldom PHQ-2 Answer Date Recorded PHQ-2 Score 2 11/26/2022 [place] Depression Scale Answer Date Recorded [place] Depression Score 13 03/10/2021 Last EPDS Self Harm Result Not on file 03/10 Education Answer Date Recorded What is the highest level of school you have completed or the highest degree you have received? 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 No / Unsure 11/26/2022 1:26 PM YARD HAND documented as of this encounter Plan of Treatment Not on file documented as of this encounter Visit Diagnoses Not on filedocumented in this encounter Additional Health Concerns Assessment Noted Time PHQ-9 Depression Total Score: 19 021 3:52 PM CDT documented as of this encounter Care Teams Museum Informatics Specialist Relationship Specialty Start Date End Date Abbey Bagley PA-C PCP - General Physician Warehouse Engineer 08/15/20 Abbey Bagley PA-C Physician Warehouse Engineer 04/11/20 05/02/23 Kelley Diane DO [address] [address] Assigned OBGYN Provider 12/04/22 Ino Robbins MD [address] [place] [address] Assigned OBGYN Provider 01/01/23 documented as of this encounter
--- OUTSIDE RECORDS SUMMARY | 2024-08-23 15:52 | XMS_ITS | Encounter Summary ---
Author Organization [place] Address [facility] [place] [address] Care Team Providers Care Stockbroking Dealer Name Role Phone Abbey Bagley PA-C Unavailable Unavailable Abbey Bagley PA-C Primary Care Provider Unava ilable Ino Robbins MD Unavailable Azul Gilman DO Unavailable [phone] Kelley Diane DO Unavailable [phone] Ino Robbins MD Unavailable Reason for Visit [...] Answer Date Recorded PHQ-2 Score 6 02/19/2021 [place] Depression Scale Answer Date Recorded [place] Depression Score 13 03/10/2021 Last EPDS Self Harm Result Not on file 03/10 Comments No Sex and Gender Information Value Date Recorded Sex Assigned at Female 07/13/2020 10:08 AM CDT Legal Sex Female 4:48 AM MILLINERY DEPARTMENT MANAGER Gender Identity Female 07/13/2020 10:08 AM CDT [...] documented as of this encounter Care Teams Stockbroking Dealer Relationship Specialty Start Date End Date Abbey Bagley PA-C PCP - General Physician Contact Lens Polisher 08/15/20 Abbey Bagley PA-C Physician Contact Lens Polisher 04/11/20 05/02/23 Ino Robbins MD [address] [place] [address] Assigned OBGYN Provider 03/08/21 Azul Gilman DO [address] [place] [address] Assigned Heart and Vascular Provider 03/08/21 09/10/22 Kelley Diane DO [address] [place] [address] Assigned OBGYN Provider 12/04/22 Ino Robbins MD [address] [place] [address] Assigned OBGYN Provider 01/01/23 documented as of this encounter
--- OUTSIDE RECORDS SUMMARY | 2024-08-23 15:52 | XMS_ITS | Clinical Summary ---
Author Organization [facility] Address [place], [place] [address] Care Team Providers Care Bufferer Name Role Phone Staff, Other Clinical Primary [...] Name Administration Dates Next Due COVID-19 vaccine (KaloBios PharmaceuticalsBio NTech 30mcg/0.3mL) PF, MDV 2021 DTaP 05/23/2007, 7,08/27/2004,08/27,2002,2002 [id number] (Pediarix) 07/16/2004,07/16/2004 HIB PRP-OMP (PedvaxHIB) 07/16/2004 HIB [...] Used Date Smoking Tobacco: Former Cigarettes 0.3 5.9 S tarted: 2019 Smokeless Tobacco: Former Tobacco [...] Austin Ledezma MD Complications: Intolera nce Delivery Location:[facility] 2022 Term [...] - Increase reliability General Yes Praful Orozco, SECOND WORKER, COUNTY AGENT Note: Goal identified during: Initial Screening Status: [...] follow-up in two weeks to review her [facility] goals and get a status update on the outcome of her communication with resources in the community. Proposed timeline for goal completion: Ongoing until resolved. Notes: None. Date of follow up: 08/04/20 Procedures Procedure Name Priority Date/Time Associated Diagnosis Comments ASSOCIATE ATTORNEY THIN PREP PAP SCREEN IMAGED Routine 07/01/2023 3:00 PM CDT GC CHLAMYDIA TRACH PROBE Routine 09/21/2022 1:00 PM DIVISION TOLL WIRE CHIEF Cramping affecting , antepartum ANTI HIV 1/2 Routine 09/11/2020 8:23 AM DIVISION TOLL WIRE CHIEF Encounter for supervision of normal first in first trimester ANTI HCV Routine 09/11/2020 8:23 AM DIVISION TOLL WIRE CHIEF Encounter for supervision of normal first in first trimester from Last 3 Months or Most Recently Relevant to Health Maintenance Results * ASSOCIATE ATTORNEY THIN PREP PAP SCREEN IMAGED (07/01/2023 3:00 PM CDT) Case Report Gynecologic Cytology Report ? Case: [id number] ? Authorizing Provider: ??Denise Fry, LUIS ANTONIO ?? Collected: ? 07/01/2023 1500 ? Ordering Location: ? [facility] ?Received: ?07/05/2023 1303 ? First Screen: ?Ino Enriquez ? Specimen: ?ASSOCIATE ATTORNEY ThinPrep Vial Screening, Cervical ? 07/12/2023 9:32 AM CDT [facility] INTERPRETATION/ RESULT NEGATIVE FOR INTRAEPITHELIAL LESION OR MALIGNANCY (NIL) (none) 07/12/2023 9:32 AM CDT [facility] IMEN ADEQUACY Satisfactory for evaluation Endocervical component present Scant cellularity 07/12/2023 9:32 AM CDT [facility] HPV REQUEST HPV not requested 2022 9:32 AM CDT [facility] Date of LMP 06/15/2023 07/12/2023 9:32 AM CDT [facility] Last Pap Result First Pap/Unknown 9:32 AM CDT [facility] Abnormal Pap or [place] Bx in last 5 years No 07/12/2023 9:32 AM CDT [facility] Menstrual Status Regular Periods 07/12/2023 9:32 AM CDT [facility] [place] Bx Done Today No 07/12/2023 9:32 AM CDT [facility] Additional Information 07/12/2023 9:32 AM CDT [facility] Comment: Interpreted at [facility] [place] [address] Automated Review Successful 07/12/2023 9:32 AM CDT [facility] Comment:Specimen processed s uccessfully by automated ash handler device, ThinPrep Imaging System, [employer] Note The pap test is a [...] and malignant lesions. 07/12/2023 9:32 AM CDT [facility] Other (Cervical) 07/01/2023 3:00 PM CDT 07/05/2023 1:03 PM CDT Denise Fry NP PATHOLOGY/CYTOLOG Y [facility] [address] [place] [address], [place] * GC CHLAMYDIA TRACH PROBE (09/21/2022 1:00 PM DIVISION TOLL WIRE CHIEF) CHLAMYDIA PROBE Negative 5:24 PM DIVISION TOLL WIRE CHIEF [facility] N GONORRHOEAE PROBE Negative 09/22/2022 5:24 PM DIVISION TOLL WIRE CHIEF [facility] Other VAGINAL SWAB / Unknown Non-Blood / Unknown 09/21/2022 1:00 PM DIVISION TOLL WIRE CHIEF 09/21/2022 1:49 PM DIVISION TOLL WIRE CHIEF Deborah Senior NP MICROBIOLOGY Performing Organization Address City/[facility]/ZIP Co de Phone Number [facility] [address] [place] [address], [place] * ANTI HCV (09/11/2020 8:23 AM DIVISION TOLL WIRE CHIEF) HEPATITIS C ANTIBODY Non-React kamran Non-React kamran 09/11/2020 12:51 PM DIVISION TOLL WIRE CHIEF [facility] Comment:Antibodies to HCV no t detected; does not exclude the possibility of exposure to HCV. Blood BLOOD SPECIMEN / Unknown Butterfly / Unknown 09/11/2020 8:23 AM DIVISION TOLL WIRE CHIEF 09/11/2020 8:24 AM DIVISION TOLL WIRE CHIEF Kirashai Turner DO SEND OUTS [facility] [address] [place] [address], * ANTI HIV 1/2 (09/11/2020 8:23 AM DIVISION TOLL WIRE CHIEF) HIV-1/HIV-2 ANTIBODY Non-Reacti ve Non-Reacti ve 09/11/2020 12:38 PM DIVISION TOLL WIRE CHIEF [facility] [employer] LABORATORY-[facility]ORY Comment:HIV-1 p24 and HIV-1/ HIV-2 Ab not detected. Blood BLOOD SPECIMEN / Unknown Butterfly / Unknown 09/11/2020 8:23 AM DIVISION TOLL WIRE CHIEF 09/11/2020 8:24 AM DIVISION TOLL WIRE CHIEF Kira Turner DO SEND OUTS Performing Organization Address City/[facility]/ZIP Co de Phone Number [facility] [employer]-CENTRAL LABORATORY [address] [place] [address], from Last 3 Months or Most Recently [...] 3:46 PM 08/18/2016 1:40 PM Care Teams Bufferer Relationship Specialty Start Date End Date Staff, Other Clinical . PCP - General 06/05/23
--- OUTSIDE RECORDS SUMMARY | 2024-08-23 15:52 | XMS_ITS | Encounter Summary ---
Author Organization [place] Address [facility] [place] [address] Care Team Providers Care Charge Account Clerk Name Role Phone Abbey Bagley PA-C Unavailable Unavailable Abbey Bagley PA-C Primary Care Provider Kelley Ko DO Unavailable Ino Robbins MD Unavailable Encounter Details Date Type Department Care Team (Late st Contact Info) Description 11/22/2022 [facility] [place] Medical Advice [address] [place] [address] Di Sher RN Social History Tobacco Use Types Packs/Day Years Used Date Smoking Tobacco: Every Day Cigarettes Smokeless Tobacco: Never Alcohol Use Standard Drinks/Week Comments Not Currently 0 (1 standard drink = 0.6 oz pur e alcohol) Seldom PHQ-2 Answer Date Recorded PHQ-2 Score 2 11/26/2022 [place] Depression Scale Answer Date Recorded [place] Depression Score 13 03/10/2021 Last EPDS Self Harm Result Not on file 03/10 Comments Yes Sex and Gender Information Value Date Recorded Sex Assigned at Female 07/13/2020 10:08 AM CDT Legal Sex Female 4:48 AM SEWING SUPERVISOR Gender Identity Female 07/13/2020 10:08 AM CDT [...] Coronavirus/COVID-19? No / Unsure 11/17/2022 6:32 PM SEWING SUPERVISOR documented as of this encounter Plan of Treatment Not on file documented as of this encounter Visit Diagnoses Not on filedocumented in this encounter Additional Health Concerns Assessment Noted Time PHQ-9 Depression Total Score: 19 021 3:52 PM CDT documented as of this encounter Care Teams Charge Account Clerk Relationship Specialty Start Date End Date Abbey Bagley PA-C PCP - General Physician Manager Android 08/15/20 Abbey Bagley PA-C Physician Manager Android 04/11/20 05/02/23 Kelley Diane DO [address] [address] Assigned OBGYN Provider 12/04/22 Ino Robbins MD [address] [place] [address] Assigned OBGYN Provider 01/01/23 documented as of this encounter
--- OUTSIDE RECORDS SUMMARY | 2024-08-23 15:52 | XMS_ITS | Encounter Summary ---
Author Organization [place] Address [address] [facility] [place] [address] Care Team Providers Care Radiology Supervisor Name Role Phone Abbey Bagley PA-C Unavailable Unavailable Abbey Bagley PA-C Primary Care Provider Unava ilable Ino Robbins MD Unavailable Azul Gilman DO Unavailable [phone] Kelley Diane DO Unavailable Ino Robbins MD Unavailable Encounter Details Date Type Department Care Team (Late st Contact Info) Description 04/07/2021 MyC Medical Advice [facility] [address] [place] [phone] Ino Robbins MD [address] [place], [place] [id number] Social History Tobacco Use Types Packs/Day Years Used Date Smoking Tobacco: Every Day Cigarettes Smokeless Tobacco: Never Alcohol Use Standard Drinks/Week Comments Not Currently 0 (1 standard drink = 0.6 oz pur e alcohol) Seldom PHQ-2 Answer Date Recorded PHQ-2 Score 6 02/19/2021 [place] Depression Scale Answer Date Recorded [place] Depression Score 13 03/10/2021 Last EPDS Self Harm Result Not on file 03/10 Comments No Sex and Gender Information Value Date Recorded Sex Assigned at Female 07/13/2020 10:08 AM CDT Legal Sex Female 4:48 AM LICENSED PLUMBER Gender Identity Female 07/13/2020 10:08 AM CDT [...] documented as of this encounter Care Teams Radiology Supervisor Relationship Specialty Start Date End Date Abbey Bagley PA-C PCP - General Physician Sales Representative 08/15/20 Abbey Bagley PA-C Physician Sales Representative 04/11/20 05/02/23 Ino Robbins MD [address] [place] [address] Assigned OBGYN Provider 03/08/21 Azul Gilman DO [address] [place] [address] Assigned Heart and Vascular Provider 03/08/21 09/10/22 Kelley Diane DO [address] [place] [address] Assigned OBGYN Provider 12/04/22 Ino Robbins MD [address] [place] [address] Assigned OBGYN Provider 01/01/23 documented as of this encounter
--- NOTE | 2024-08-23 16:00 | CRLHL7_ITS ---
For Patients: As a result of the Century Cures Act, medical imaging exams and procedure reports are released immediately into your electronic medical record. You may view this report before your referring provider. If you have questions, please contact your health care provider. INDICATION: Splenomegaly. Left upper quadrant pain TECHNIQUE: Conventional two-dimensional grayscale ultrasound of the spleen COMPARISON: Abdomen/pelvis CT of 04/30/2024 FINDINGS: The spleen is now normal in size, measuring 10.2 x 9.5 x 4.7 cm with volume of 237 cc. IMPRESSION: Normal spleen Dictated by Trip Farfan MD @ 08/24/2024 4:04:41 PM (Electronically Signed)
== END 2024-08-23 15:46 | disposition home or self-care (01) ==
LOC: US 15:49
PROVIDERS: PCP Nurse Practitioner Family; Visit Provider Internal Medicine
DX: R16.1 Splenomegaly, not elsewhere classified (principal); R10.12 Left upper quadrant pain
CPT/HCPCS: 76700; 76705

== ENCOUNTER 2024-08-26 14:33 | Emergency (ER) | payer MEDICAID, SELFPAY ==
[2024-08-26 14:39] VITALS: BP 139/83; PULSE 100; RESP 16; TEMP 36.4; O2SAT 99; BMI 30.2
--- NOTE | 2024-08-26 16:37 | ED_ITS ---
HPI - Dizziness General Chief Complaint: Dizziness/Vertigo Stated Complaint: Dizziness, lightheaded, shortness of breathe Time Seen by Provider: 08/26/24 16:16 History of Present Illness HPI Narrative: This 24-year-old female reports a history of POTS syndrome and states that she noted her heart rate sometimes being slow at around 50 beats per minute and other times up around 140 beats per minute. She does report some lightheadedness symptoms but does not directly correlate her dizziness with her heart rate. She has not had loss of consciousness. She is not report any fevers or symptoms of infection. She has not had any chest pain. She is not taking any new medications. Related Data Home Medications ?Medication ?Instructions ?Recorded ?Confirmed valacyclovir 500 mg tablet 500 mg PO DAILY 05/10/23 08/26/24 (Valtrex) ascorbic acid (vitamin C) 1,000 mg 1 g PO Q6H 06/28/23 08/26/24 tablet ferrous sulfate 325 mg (65 mg 325 mg PO QDAY 06/28/23 08/26/24 iron) tablet (Iron (ferrous sulfate)) Previous Rx's ?Medication ?Instructions ?Recorded albuterol sulfate 90 mcg/actuation 2 puff inhalation Q4-6H PRN 08/30/23 aerosol inhaler shortness of breath or wheezing #8.5 grams esomeprazole magnesium 40 mg 40 mg PO QDAY #90 caps 05/29/24 capsule,delayed release (Nexium) Allergies Allergy/AdvReac Type Severity Reaction Status Date / Time tea tree Allergy Mild Verified 08/15/24 10:56 adhesive Allergy Rash Verified 08/15/24 10:56 lamotrigine (From Lamictal) Allergy Verified 08/15/24 10:56 Review of Systems Status of ROS: Reports: 10 or more systems reviewed and unremarkable except as noted in History and below Narrative: Constitutional: No fevers, no weight gain or loss. Eyes: No discharge. No vision changes. HENT: No congestion, no sore throat, no ear pain. Cardiovascular: No chest pain, no palpitations. Respiratory: No shortness of breath, no wheezes, no cough. Gastrointestinal: No abdominal pain, no vomiting, no diarrhea. Genitourinary: No dysuria, no hematuria. Musculoskeletal: Normal range of motion. Skin: No rashes, no pruritis. Neurological: No dizziness, weakness, sensory change, speech change. Endo/Heme/Allergies: No bruising or bleeding. No polydipsia. Pysch: no suicidality, no anxiety, no insomnia. All other systems reviewed and are negative. [facility] Medical History Iron deficiency anemia ?D50.9 - Iron deficiency anemia, unspecified (ICD-10) Constipation ?K59.00 - Constipation, unspecified (ICD-10) Heterozygous MTHFR mutation C677T ?Z15.89 - Genetic susceptibility to other disease (ICD-10) GERD (gastroesophageal reflux disease) ?K21.9 - Gastro-esophageal reflux disease without esophagitis (ICD-10) Genital HSV ?A60.00 - Herpesviral infection of urogenital system, unspecified (ICD-10) Mild intermittent asthma ?J45.20 - Mild intermittent asthma, uncomplicated (ICD-10) Depression, recurrent ?F33.9 - Major depressive disorder, recurrent, unspecified (ICD-10) Generalized anxiety disorder ?F41.1 - Generalized anxiety disorder (ICD-10) IUD (intrauterine device) in place ?Z97.5 - Presence of (intrauterine) contraceptive device (ICD-10) PTSD (post-traumatic stress disorder) ?F43.10 - Post-traumatic stress disorder, unspecified (ICD-10) Eclampsia ?O15.9 - Eclampsia, unspecified as to time period (ICD-10) Migraines ?G43.909 - Migraine, unspecified, not intractable, without status migrainosus (ICD-10) Surgical History Status post bilateral salpingectomy ?Z90.79 - Acquired absence of other genital organ(s) (ICD-10) Family History Maternal Grandfather Heart disease Father Depression Anxiety Alcohol dependence Drug dependence Paternal Grandmother Anxiety Depression Mother Anxiety Depression Diabetes Alcohol dependence Drug dependence Maternal Grandmother Preeclampsia Paternal Grandfather Anxiety Depression Alcohol dependence Eczema Social History Narrative: . 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 No alcohol. No illicit drug use. What is your current living situation?: I presently have a place to live Problems where you live: no known problems In the past 12 months, utilities in danger of being shut off: no In the past 12 mos, have been you worried that your food would run out before you had money to buy more?: never true In the past 12 mos, the food you bought just didn't last and you didn't have money to buy more?: never true Smoking Status: Current every day smoker What tobacco products do you use: cigarettes Do you use any of these nicotine containing products: None Second hand tobacco smoke exposure: Yes How often do you have a drink containing alcohol: never How often do you have six or more drinks on one occasion: Never AUDIT-C Alcohol total score: 0 Non-prescribed substance use: denies use Caffeine: Yes How often does anyone, including family, friends and others, physically hurt you : never How often does anyone, including family, friends and others, insult or talk down to you: never How often does anyone, including family, friends and others, threaten you with harm: never How often does anyone, including family, friends and others, scream or curse at you: never service: No Exam Const: Vital Signs, click to edit/add: Vital Signs - 24 hr 08/26/24 14:39 Temperature 97.6 F Pulse Rate [Pulse Oximeter] 100 Respiratory Rate 16 Blood Pressure [Ri ght Upper Arm] 139/83 Pulse Oximetry 99 Oxygen Delivery Me thod Room Air Course Vital Signs Vital signs: Initial Vital Signs Temperature 97.6 F 08/26/24 14:39 Temperature Source Temporal Artery Scan 08/26/24 14:39 Pulse Rate 100 08/26/24 14:39 Respiratory Rate 16 08/26/24 14:39 Blood Pressure 139/83 08/26/24 14:39 Blood Pressure Mean 101 08/26/24 14:39 Pulse Oximetry 99 08/26/24 14:39 Oxygen Delivery Method Room Air 08/26/24 14:39 Vital Signs Temperature 97.6 F 08/26/24 14:39 Pulse Rate 100 08/26/24 14:39 Respiratory Rate 16 08/26/24 14:39 Blood Pressure 139/83 08/26/24 14:39 Pulse Oximetry 99 08/26/24 14:39 Oxygen Delivery Method Room Air 08/26/24 14:39 Temperature 97.6 F 08/26/24 14:39 Pulse Rate 100 08/26/24 14:39 Respiratory Rate 16 08/26/24 14:39 Blood Pressure 139/83 08/26/24 14:39 Pulse Oximetry 99 08/26/24 14:39 Oxygen Delivery Method Room Air 08/26/24 14:39 MDM - Dizziness MDM Narrative Medical decision making narrative: This patient comes in reporting some lightheadedness symptoms and relates this to POTS syndrome and she noted also that her heart rate seemed to go slow and then fast at various times today. Throughout her stay here she has had heart rate in normal range. Other vital signs also are reassuring as well as her exam. I did check labs and these all returned with normal results. I also used bedside ultrasound to take looks at her heart and lungs and saw normal findings there also. This was reassuring to the patient. She is okay to be discharged home. She plans to follow-up with her city jailer for ongoing management. Lab Data Labs: Lab Results 08/26/24 Range/Units 16:46 WBC 5.30 (4.50-11.00) K/uL RBC 4.87 (4.00-5.20) m/uL Hgb 13.2 (12.0-16.0) gm/dL Hct 41.2 (33.0-51.0) % MCV 85 (80-100) fL MCH 27 (26-34) pg MCHC 32 (32-36) gm/dL RDW Coeff of Destini 13.5 (11.5-15.5) % Plt Count 233 (140-440) K/uL Neut % (Auto) 70.3 (42.0-72.0) % Lymph % (Auto) 21.9 (20-44) % Trego % (Auto) 4.9 (0.0-11.0) % Eos % (Auto) 2.1 (0.0-7.0) % Baso % (Auto) 0.6 (0.0-3.0) % Neut # (Auto) 3.73 (1.7-7.0) K/uL Lymph # (Auto) 1.16 (0.90-2.90) K/uL [place] # (Auto) 0.30 (0.00-0.90) K/UL Eos # (Auto) 0.11 (0.00-0.50) K/uL Baso # (Auto) 0.03 (0.00-0.30) K/uL Abs Immat Gran (auto) 0.01 (0.00-0.30) K/uL Imm/Tot Granulo (auto) 0.2 % Sodium 138 (135-149) mmol/L Potassium 3.8 (3.6-5.1) mmol/L Chloride 104 (96-114) mmol/L Carbon Dioxide 23 (20-32) mmol/L Anion Gap 11 (7-15) mEq/L BUN 8 (5-24) mg/dL Creatinine 0.7 (0.5-1.5) mg/dL Estimated Creat Clear 122.59 Estimated GFR 125 ml/min Glucose 90 (60-115) mg/dL Calcium 9.3 (8.4-10.6) mg/dL Magnesium 2.2 (1.5-2.6) mg/dL Discharge Plan Discharge Clinical Impression: Episodic lightheadedness Additional Instructions: Continue current plans. Follow up with MD as needed or return if symptoms are recurrent or worsening. Prescriptions: No Action albuterol sulfate 90 mcg/actuation HFA aerosol inhaler 2 puff inhalation Q4-6H PRN (Reason: shortness of breath or wheezing) Qty: 8.5 0RF ferrous sulfate [Iron (ferrous sulfate)] 325 mg (65 mg iron) tablet 325 mg PO QDAY ascorbic acid (vitamin C) 1,000 mg tablet 1 g PO Q6H esomeprazole magnesium [Nexium] 40 mg capsule,delayed release(DR/EC) 40 mg PO QDAY Qty: 90 0RF valacyclovir [Valtrex] 500 mg tablet 500 mg PO DAILY Follow Up/Referrals: Comfort Platt, TOOL AND MACHINE MAINTAINER, CT SCAN TECHNOLOGIST [Primary Care Provider] - Procedures Ultrasound Cardiac exam #1: Anatomical areas examined: subxiphoid, parasternal long and parasternal short Indications: other Exam type: limited transthoracic echocardiogram Impression: negative exam
[2024-08-26 16:51] LABS: Hematocrit 41.2 % (33.0-51.0); Hemoglobin* 13.2 gm/dL (12.0-16.0); Lymphocytes Percent Auto 21.9 % (20-44); Mean Corpuscular HGB Conc 32 gm/dL (32-36); Mean Corpuscular Hemoglobin 27 pg (26-34); Mean Corpuscular Volume 85 fL (80-100); Monocytes Percent Auto 4.9 % (0.0-11.0); Neutrophils Percent Auto 70.3 % (42.0-72.0); Platelet Count* 233 K/uL (140-440); RDW Coefficient of Variation % 13.5 % (11.5-15.5); Red Blood Count 4.87 m/uL (4.00-5.20)
[2024-08-26 16:52] LABS: Basophils Absolute Auto 0.03 K/uL (0.00-0.30); Basophils Percent Auto 0.6 % (0.0-3.0); Eosinophils Absolute Auto 0.11 K/uL (0.00-0.50); Eosinophils Percent Auto 2.1 % (0.0-7.0); Immature Granulocytes Abs Auto 0.01 K/uL (0.00-0.30); Immature Granulocytes Pct Auto 0.2 %; Lymphocytes Absolute Auto 1.16 K/uL (0.90-2.90); Neutrophils Absolute Auto 3.73 K/uL (1.7-7.0)
[2024-08-26 16:53] LABS: Slide Review Reflex No
[2024-08-26 17:04] LABS: Chloride* 104 mmol/L (96-114); Potassium* 3.8 mmol/L (3.6-5.1); Sodium* 138 mmol/L (135-149)
[2024-08-26 17:07] LABS: Anion Gap 11 mEq/L (7-15); Blood Urea Nitrogen* 8 mg/dL (5-24); Carbon Dioxide* 23 mmol/L (20-32); Creatinine* 0.7 mg/dL (0.5-1.5); Est. Creatinine Clearance* 122.59; Estimated Glomerular Filt Rate 125 ml/min
[2024-08-26 17:08] LABS: Calcium* 9.3 mg/dL (8.4-10.6); Glucose* 90 mg/dL (60-115); Magnesium* 2.2 mg/dL (1.5-2.6)
== END 2024-08-26 17:36 | disposition home or self-care (01) ==
LOC: ED 16:41
PROVIDERS: Emergency Provider Emergency Medicine Emergency Medical Services; PCP Nurse Practitioner Family
DX: R42 Dizziness and giddiness (principal)
CPT/HCPCS: 36415; 76604; 76705; 80048; 83735; 85025; 93308; 99283; 99284

== ENCOUNTER 2024-08-28 11:03 | Outpatient (CLI) | payer MEDICAID, SELFPAY ==
--- OUTSIDE RECORDS SUMMARY | 2024-08-28 11:08 | XMS_ITS | Encounter Summary ---
Author Organization [place] Address [address] [facility] [place] [address] Care Team Providers Care Blast Furnace Blower Name Role Phone Abbey Bagley PA-C Unavailable Unavailable Abbey Bagley PA-C Primary Care Provider Unava ilable Ino Robbins MD Unavailable Azul Gilman DO Unavailable [phone] Kelley Diane DO Unavailable [phone] Ino Robbins MD Unavailable Encounter Details Date Type Department Care Team (Late st Contact Info) Description 04/07/2021 MyC Medical Advice [facility] [address] [place] [phone] Ino Robbins MD [address] [place], [place] [address] Social History Tobacco Use Types Packs/Day Years Used Date Smoking Tobacco: Every Day Cigarettes Smokeless Tobacco: Never Alcohol Use Standard Drinks/Week Comments Not Currently 0 (1 standard drink = 0.6 oz pur e alcohol) Seldom PHQ-2 Answer Date Recorded PHQ-2 Score 6 02/19/2021 [place] Depression Scale Answer Date Recorded [place] Depression Score 13 03/10/2021 Last EPDS Self Harm Result Not on file 03/10 Comments No Sex and Gender Information Value Date Recorded Sex Assigned at Female 07/13/2020 10:08 AM CDT Legal Sex Female 4:48 AM WATER REUSE PROGRAM MANAGER Gender Identity Female 07/13/2020 10:08 AM [...] documented as of this encounter Care Teams Blast Furnace Blower Relationship Specialty Start Date End Date Abbey Bagley PA-C PCP - General Physician Underground Foreman 08/15/20 Abbey Bagley PA-C Physician Underground Foreman 04/11/20 05/02/23 Ino Robbins MD [address] [place] [address] Assigned OBGYN Provider 03/08/21 Azul Gilman DO [address] [place] [address] Assigned Heart and Vascular Provider 03/08/21 09/10/22 Kelley Diane DO [address] [place] [address] Assigned OBGYN Provider 12/04/22 Ino Robbins MD [address] [place] [place] [address] Assigned OBGYN Provider 01/01/23 documented as of this encounter
--- OUTSIDE RECORDS SUMMARY | 2024-08-28 11:08 | XMS_ITS | Encounter Summary ---
Author Organization [place] Address [facility] [place] [address] Care Team Providers Care Metal Turner Name Role Phone Abbey Bagley PA-C Unavailable Unavailable Abbey Bagley PA-C Primary Care Provider Kelley Ko DO Unavailable Ino Robbins MD Unavailable Encounter Details Date Type Department Care Team (Late st Contact Info) Description 11/22/2022 [facility] Medical Advice [address] [place] [address] Di Sher RN Social History Tobacco Use Types Packs/Day Years Used Date Smoking Tobacco: Every Day Cigarettes Smokeless Tobacco: Never Alcohol Use Standard Drinks/Week Comments Not Currently 0 (1 standard drink = 0.6 oz pur e alcohol) Seldom PHQ-2 Answer Date Recorded PHQ-2 Score 2 11/26/2022 [place] Depression Scale Answer Date Recorded [place] Depression Score 13 03/10/2021 Last EPDS Self Harm Result Not on file 03/10 Comments Yes Sex and Gender Information Value Date Recorded Sex Assigned at Female 07/13/2020 10:08 AM CDT Legal Sex Female 4:48 AM GAS MASK INSPECTOR Gender Identity Female 07/13/2020 10:08 AM CDT [...] Coronavirus/COVID-19? No / Unsure 11/17/2022 6:32 PM GAS MASK INSPECTOR documented as of this encounter Plan of Treatment Not on file documented as of this encounter Visit Diagnoses Not on filedocumented in this encounter Additional Health Concerns Assessment Noted Time PHQ-9 Depression Total Score: 19 021 3:52 PM CDT documented as of this encounter Care Teams Metal Turner Relationship Specialty Start Date End Date Abbey Bagley PA-C PCP - General Physician Highway Engineer 08/15/20 Abbey Bagley PA-C Physician Highway Engineer 04/11/20 05/02/23 Kelley Diane DO [address] [address] Assigned OBGYN Provider 12/04/22 Ino Robbins MD [address] [place] [address] Assigned OBGYN Provider 01/01/23 documented as of this encounter
--- OUTSIDE RECORDS SUMMARY | 2024-08-28 11:08 | XMS_ITS | Encounter Summary ---
Author Organization [place] Address [address] [facility] [place] [address] Care Team Providers Care Inorganic Chemistry Teacher Name Role Phone Abbey Bagley PA-C Unavailable Unavailable Abbey Bagley PA-C Primary Care Provider Kelley Ko DO Unavailable [phone] Ino Robbins MD Unavailable [phone] Encounter Details Date Type Department Care Team (Late st Contact Info) Description 12/07/2022 [facility] Medical Advice [facility] [address] [place] [phone] Diana Rainey, RN Social History Tobacco Use Types Packs/Day Years Used Date Smoking Tobacco: Some Days Cigarettes Smokeless Tobacco: Never Alcohol Use Standard Drinks/Week Comments Not Currently 0 (1 standard drink = 0.6 oz pur e alcohol) Seldom PHQ-2 Answer Date Recorded PHQ-2 Score 2 11/26/2022 [place] Depression Scale Answer Date Recorded [place] Depression Score 13 03/10/2021 Last EPDS Self Harm Result Not on file 03/10 Education Answer Date Recorded What is the highest level of school you have completed or the highest degree you have received? 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 No / Unsure 11/26/2022 1:26 PM TUFTER HAND documented as of this encounter Plan of Treatment Not on file documented as of this encounter Visit Diagnoses Not on filedocumented in this encounter Additional Health Concerns Assessment Noted Time PHQ-9 Depression Total Score: 19 021 3:52 PM CDT documented as of this encounter Care Teams Inorganic Chemistry Teacher Relationship Specialty Start Date End Date Abbey Bagley PA-C PCP - General Physician Transfer Station Operator 08/15/20 Abbey Bagley PA-C Physician Transfer Station Operator 04/11/20 05/02/23 Kelley Diane DO [address] [address] Assigned OBGYN Provider 12/04/22 Ino Robbins MD [address] [place] [address] Assigned OBGYN Provider 01/01/23 documented as of this encounter
--- OUTSIDE RECORDS SUMMARY | 2024-08-28 11:08 | XMS_ITS | Referral Summary ---
Author Organization [place] Address [address] [place] [address] Care Team Providers Care Operating Room Rn Name Role Phone Abbey Bagley PA-C Primary [...] Peds 2002,2002 Influenza (IIV3) PF 07/01/2020,08/20/2008,2003 Influenza (prior to 2023) 08/27/2004 Influenza Intranasal Vaccine 08/20/2008 Influenza Vaccine >6 months,quad, PF 10/21/2021, 07/01/2020,08/20/2008 MMR 05/23/2007,07/16/2004 Meningococcal ACWY (Menveo ) 11/27/2019,02/19/2014 Meningococcal,unspecified 02/19/2014 Nasal Influenza Vaccine 2-49 (FluMist) [...] Answer Date Recorded PHQ-2 Score 0 04/14/2023 [place] Depression Scale Answer Date Recorded Last EPDS [...] AM CDT Legal Sex Female 4:48 AM PRINCIPAL TECHNICAL ARCHITECT Gender Identity Female 07/13/2020 10:08 AM CDT Sexual Orientation Bisexual 07/13/2020 10 :08 AM CDT Occupation Industry Job Start Date Job End Date 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 t on file Last Filed Vital Signs Vital Sign Reading Time Taken Comments Blood Pressure 125/66 05/04/2023 10:00 AM CDT Pulse 70 05/04/2023 4:19 AM CDT Temperature 36.8 C (98.2 F) 05/04/2023 10:00 AM CDT Respiratory Rate 16 05/04/2023 10:00 AM CDT [...] ANTIGEN ANTIBODY COMBO Routine 11/26/2022 2:16 PM PRINCIPAL TECHNICAL ARCHITECT Encounter for supervision of other normal in second trimester HEPATITIS C ANTIBODY Routine 11/26/2022 2:16 PM PRINCIPAL TECHNICAL ARCHITECT Encounter for supervision of other normal in second trimester CHLAMYDIA TRACHOMATIS PCR Routine 11/26/2022 1:42 PM PRINCIPAL TECHNICAL ARCHITECT Screen for STD (sexually transmitted disease) from Last 3 Months or Most Recently Relevant to Health Maintenance Results * HIV Antigen Antibody Combo (11/26/2022 2:16 PM PRINCIPAL TECHNICAL ARCHITECT) HIV Antigen Antibody Combo Nonreactive Nonreactive 11/27/2022 2:46 PM PRINCIPAL TECHNICAL ARCHITECT [facility] DO Comment:HIV-1 p24 Ag & HIV-1 /HIV-2 Ab Not Detected Blood BLOOD SPECIMEN / Unknown Venipuncture / Unknown 11/26/2022 2:16 PM PRINCIPAL TECHNICAL ARCHITECT 11/26/2022 2:28 PM PRINCIPAL TECHNICAL ARCHITECT us Kelley Diane DO LAB - BLOOD ORDERABLES Fi nal Result [facility]ENDO Specialty Core/Prot/Endo [address] [facility], [address] [place] [address], [facility] [phone] * Hepatitis C antibody (11/26/2022 2:16 PM PRINCIPAL TECHNICAL ARCHITECT) Pathologist [facility] Hepatitis C Antibody Nonreactive Nonreactive 11/27/2022 2:46 PM PRINCIPAL TECHNICAL ARCHITECT SPECIALTY CORE/PROT/EN DO Blood BLOOD SPECIMEN / Unknown Venipuncture / Unknown 11/26/2022 2:16 PM PRINCIPAL TECHNICAL ARCHITECT 11/26/2022 2:28 PM PRINCIPAL TECHNICAL ARCHITECT Narrative SPECIALTY CORE/PROT/ENDO - 11/27/2022 2:46 PM PRINCIPAL TECHNICAL ARCHITECT Assay performance characteristics have not been established for newborns, infants, and children. us Kelley Diane DO LAB - BLOOD ORDERABLES Fi nal Result Performing Organization Address City/[facility]/ZIP Co de Phone Number SPECIALTY CORE/PROT/ENDO Specialty Core/Prot/Endo [address] [facility], [address] [place] [address], [facility] [phone] * CHLAMYDIA TRACHOMATIS PCR (11/26/2022 1:42 PM PRINCIPAL TECHNICAL ARCHITECT) [facility] Chlamydia trachomatis Negative Negative 11/27/2022 12:55 PM PRINCIPAL TECHNICAL ARCHITECT [facility] Comment:A negative result by employment attorney mediated amplification does not preclude the presence of C. trachomatis infection because results are dependent on proper and adequate collection, absence of inhibitors and sufficient rRNA to be detected. Swab CERVIX UTERI STRUCTURE / Unknown Non-blood Collection / Unknown 11/26/2022 1:42 PM PRINCIPAL TECHNICAL ARCHITECT 11/26/2022 3:02 PM PRINCIPAL TECHNICAL ARCHITECT Kelley Diane DO LAB - MICRO GENERAL ORDER BROOKE Final Result [facility] Inf. Diseases Diag. Lab [address] [facility] [place] [address], [facility] [phone] from Last 3 Months or Most Recently Relevant to Health Maintenance Insurance MEDICAID MD Advance Directives For more information, please contact: [phone] * Full Code (Latest Code Status on [...] patie nt/ legal decision maker Care Teams Operating Room Rn Relationship Specialty Start Date End Date Abbey Bagley PA-C PCP - General Physician Zipper Cutter 08/15/20 Ino Robbins MD [address] [place] [address] Assigned OBGYN Provider 01/01/23
--- OUTSIDE RECORDS SUMMARY | 2024-08-28 11:08 | XMS_ITS | Encounter Summary ---
Author Organization [place] Address [address] [facility] [place] [address] Care Team Providers Care Patch Press Operator Name Role Phone Abbey Bagley PA-C Unavailable Unavailable Abbey Bagley PA-C Primary Care Provider Unava ilable Ino Robbins MD Unavailable [phone] Reason for Visit * Reason Onset Date Comments Care 04/26/2023 Encounter Details Date Type Department Care Team (Late st Contact Info) Description 04/26/2023 MyC Medical Advice [facility] [address] [place] [id number] Ino Robbins MD [address], [place] [id number] Care Social History Tobacco Use Types Packs/Day Years Used Date Smoking Tobacco: Former Cigarettes Q uit: 03/10/2023 Passive Smoke Exposure: Never Smokeless Tobacco: Never Alcohol Use Standard Drinks/Week Comments Not Currently 0 (1 standard drink = 0.6 oz pur e alcohol) Seldom PHQ-2 Answer Date Recorded PHQ-2 Score 0 04/14/2023 [place] Depression Scale Answer Date Recorded [place] Depression Score 13 03/10/2021 Last EPDS Self Harm Result Not on file 03/10 Education Answer Date Recorded What is the highest level of school you have completed or the highest degree you have received? 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
--- OUTSIDE RECORDS SUMMARY | 2024-08-28 11:08 | XMS_ITS | Clinical Summary ---
Author Organization [facility] Address [place], [place] [address] Care Team Providers Care Fitness Sales Associate Name Role Phone Staff, Other Clinical Primary [...] Name Administration Dates Next Due COVID-19 vaccine (BreconRidgeBio NTech 30mcg/0.3mL) PF, MDV 2021 DTaP 05/23/2007, 7,08/27/2004,08/27,2002,2002 [id number] (Pediarix) 07/16/2004,07/16/2004 HIB PRP-OMP (PedvaxHIB) 07/16/2004 HIB [...] Austin Ledezma MD Complications: Intolera nce Delivery Location:[facility] ( LABOR AND DELIVERY) 2022 Term 39w 3d Vag Livin g Last Filed Vital Signs Vital Sign Reading Time Taken Comments Blood Pressure 125/79 06/05/2023 8:00 AM CDT Pulse 84 06/05/2023 8:00 AM CDT Temperature 36.9 C (98.4 F) 06/05/2023 3:26 AM CDT Respiratory Rate 20 06/05/2023 3:26 AM CDT [...] 06/01/2021, Additional history exists COVID-19 vaccine series (2023- season) 2024 09/30/2021, 2021 Influenza for age [...] - Increase reliability General Yes Praful Orozco, LOG STACKER OPERATOR, SPLIT LEATHER DEPARTMENT SUPERVISOR Note: Goal identified during: Initial Screening Status: [...] follow-up in two weeks to review her [facility] goals and get a status update on the outcome of her communication with resources in the community. Proposed timeline for goal completion: Ongoing until resolved. Notes: None. Date of follow up: 08/04/20 Procedures Procedure Name Priority Date/Time Associated Diagnosis Comments IT BUSINESS SYSTEMS ANALYST THIN PREP PAP SCREEN IMAGED Routine 07/01/2023 3:00 PM CDT GC CHLAMYDIA TRACH PROBE Routine 09/21/2022 1:00 PM WOOD PILER Cramping affecting , antepartum ANTI HIV 1/2 Routine 09/11/2020 8:23 AM WOOD PILER Encounter for supervision of normal first in first trimester ANTI HCV Routine 09/11/2020 8:23 AM WOOD PILER Encounter for supervision of normal first in first trimester from Last 3 Months or Most Recently Relevant to Health Maintenance Results * IT BUSINESS SYSTEMS ANALYST THIN PREP PAP SCREEN IMAGED (07/01/2023 3:00 PM CDT) Case Report Gynecologic Cytology Report Case: [id number] Authorizing Provider: Denise Fry NP Collected: 07/01/2023 1500 Ordering Location: [facility] Received: 07/05/2023 1303 First Screen: Ino Enriquez Specimen: IT BUSINESS SYSTEMS ANALYST ThinPrep Vial Screening, Cervical 07/12/2023 9:32 AM CDT [facility] INTERPRETATION/ RESULT NEGATIVE FOR INTRAEPITHELIAL LESION OR MALIGNANCY (NIL) (none) 07/12/2023 9:32 AM CDT [facility] LABORATORY-C ENTRAL LABORATORY IMEN ADEQUACY Satisfactory for evaluation Endocervical component present Scant cellularity 07/12/2023 9:32 AM CDT [facility] ENTRAL LABORATORY HPV REQUEST HPV not requested 2022 9:32 AM CDT [facility] EN[facility] LAB[facility]ORY Date of LMP 06/15/2023 07/12/2023 9:32 AM CDT [facility] EN[facility] Last Pap Result First Pap/Unknown 9:32 AM CDT [facility] Abnormal Pap or [place] Bx in last 5 years No 07/12/2023 9:32 AM CDT [facility] EN[facility]ORY Menstrual Status Regular Periods 07/12/2023 9:32 AM CDT [facility] LAB[facility] Hil[place] Bx Done Today No 07/12/2023 9:32 AM CDT [facility] Additional Information 07/12/2023 9:32 AM CDT [facility] Comment: Interpreted at [facility] - [address] [place] [id number] Automated Review Successful 07/12/2023 9:32 AM CDT [facility] Comment:Specimen processed s uccessfully by automated electrophysiologist device, ThinPrep Imaging System, [employer] Note The pap test is a [...] PM CDT Denise Fry NP PATHOLOGY/CYTOLOG Y [facility] [address] [place] [address], [place] * GC CHLAMYDIA TRACH PROBE (09/21/2022 1:00 PM WOOD PILER) CHLAMYDIA PROBE Negative 5:24 PM WOOD PILER [facility] TRAL LABORATORY N GONORRHOEAE PROBE Negative 09/22/2022 5:24 PM WOOD PILER [facility] TRAL LABORATORY Other VAGINAL SWAB / Unknown Non-Blood / Unknown 09/21/2022 1:00 PM WOOD PILER 09/21/2022 1:49 PM WOOD PILER Deborah Senior DIRECTOR OF ACQUISITIONS MICROBIOLOGY [facility] [address] [place] [address], * ANTI HCV (09/11/2020 8:23 AM WOOD PILER) HEPATITIS C ANTIBODY Non-React kamran Non-React kamran 09/11/2020 12:51 PM WOOD PILER [facility] TRAL LABORATORY Comment:Antibodies to HCV no t detected; does not exclude the possibility of exposure to HCV. Blood BLOOD SPECIMEN / Unknown Butterfly / Unknown 09/11/2020 8:23 AM WOOD PILER 09/11/2020 8:24 AM WOOD PILER Kira Turner DO SEND OUTS Performing Organization Address City/[facility]/ZIP Co de Phone Number [facility] [address] [place] [address], * ANTI HIV 1/2 (09/11/2020 8:23 AM WOOD PILER) HIV-1/HIV-2 ANTIBODY Non-Reacti ve Non-Reacti ve 09/11/2020 12:38 PM WOOD PILER [facility] TRAL LABORATORY Comment:HIV-1 p24 and HIV-1/ HIV-2 Ab not detected. Blood BLOOD SPECIMEN / Unknown Butterfly / Unknown 09/11/2020 8:23 AM WOOD PILER 09/11/2020 8:24 AM WOOD PILER Kira Turner DO SEND OUTS [facility] [address] [place] [address], from Last 3 Months or Most Recently [...] 3:46 PM 08/18/2016 1:40 PM Care Teams Fitness Sales Associate Relationship Specialty Start Date End Date Staff, Other Clinical . PCP - General 06/05/23
--- OUTSIDE RECORDS SUMMARY | 2024-08-28 11:08 | XMS_ITS | Encounter Summary ---
Author Organization [place] Address [facility] [place] [address] Care Team Providers Care Curtain Stitcher Name Role Phone Abbey Bagley PA-C Unavailable Unavailable Abbey Bagley PA-C Primary Care Provider Unava ilable Ino Robbins MD Unavailable Azul Gilman DO Unavailable [phone] Kelley Diane DO Unavailable [phone] Ino Robbins MD Unavailable Reason for Visit [...] Answer Date Recorded PHQ-2 Score 6 02/19/2021 [place] Depression Scale Answer Date Recorded [place] Depression Score 13 03/10/2021 Last EPDS Self Harm Result Not on file 03/10 Comments No Sex and Gender Information Value Date Recorded Sex Assigned at Female 07/13/2020 10:08 AM CDT Legal Sex Female 4:48 AM C WPF DEVELOPER Gender Identity Female 07/13/2020 10:08 AM CDT [...] documented as of this encounter Care Teams Curtain Stitcher Relationship Specialty Start Date End Date Abbey Bagley PA-C PCP - General Physician Support Director 08/15/20 Abbey Bagley PA-C Physician Support Director 04/11/20 05/02/23 Ino Robbins MD [address] [place] [address] Assigned OBGYN Provider 03/08/21 Azul Gilman DO [address] [place] [address] Assigned Heart and Vascular Provider 03/08/21 09/10/22 Kelley Diane DO [address] [place] [address] Assigned OBGYN Provider 12/04/22 Ino Robbins MD [address] [place] [address] Assigned OBGYN Provider 01/01/23 documented as of this encounter
--- OUTSIDE RECORDS SUMMARY | 2024-08-28 11:08 | XMS_ITS | Clinical Summary ---
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 [...] 2024 09/30/2021, 2021 INFLUENZA VACCINE (#1) 2024 2, 10/21/2021, 07/01/2020, Additional history exists DTAP/TDAP/TD IMMUNIZATION [...] ANTIGEN ANTIBODY COMBO Routine 11/26/2022 2:16 PM MEDICAL EDITOR Encounter for supervision of other normal in second trimester HEPATITIS C ANTIBODY Routine 11/26/2022 2:16 PM MEDICAL EDITOR Encounter for supervision of other normal in second trimester CHLAMYDIA TRACHOMATIS PCR Routine 11/26/2022 1:42 PM MEDICAL EDITOR Screen for STD (sexually transmitted disease) from Last 3 Months or Most Recently Relevant to Health Maintenance Results * HIV Antigen Antibody Combo (11/26/2022 2:16 PM MEDICAL EDITOR) HIV Antigen Antibody Combo Nonreactive Nonreactive 11/27/2022 2:46 PM MEDICAL EDITOR [facility] DO Comment:HIV-1 p24 Ag & HIV-1 /HIV-2 Ab Not Detected Blood BLOOD SPECIMEN / Unknown Venipuncture / Unknown 11/26/2022 2:16 PM MEDICAL EDITOR 11/26/2022 2:28 PM MEDICAL EDITOR us Kelley Diane DO LAB - BLOOD ORDERABLES Fi nal Result [facility]ENDO [facility]Endo [address] [address], [facility] [phone] * Hepatitis C antibody (11/26/2022 2:16 PM MEDICAL EDITOR) Hepatitis C Antibody Nonreactive Nonreactive 11/27/2022 2:46 PM MEDICAL EDITOR SPECIALTY CORE/PROT/EN DO Blood BLOOD SPECIMEN / Unknown Venipuncture / Unknown 11/26/2022 2:16 PM MEDICAL EDITOR 11/26/2022 2:28 PM MEDICAL EDITOR Narrative [facility]ENDO - 11/27/2022 2:46 PM MEDICAL EDITOR Assay performance characteristics have not been established for newborns, infants, and children. Kelley Diane DO LAB - BLOOD ORDERABLES Fi nal Result SPECIALTY CORE/PROT/ENDO Specialty Core/Prot/Endo [address] [facility] [place] [address], [facility] [phone] * CHLAMYDIA TRACHOMATIS PCR (11/26/2022 1:42 PM MEDICAL EDITOR) Pathologist [facility] Chlamydia trachomatis Negative Negative 11/27/2022 12:55 PM MEDICAL EDITOR [facility] Comment:A negative result by cupola repairer mediated amplification does not preclude the presence of C. trachomatis infection because results are dependent on proper and adequate collection, absence of inhibitors and sufficient rRNA to be detected. Swab CERVIX UTERI STRUCTURE / Unknown Non-blood Collection / Unknown 11/26/2022 1:42 PM MEDICAL EDITOR 11/26/2022 3:02 PM MEDICAL EDITOR Kelley Diane DO LAB - MICRO GENERAL ORDER BROOKE Final Result [facility] Inf. Diseases Diag. Lab [address] [facility] [place] [address], [facility] [phone] from Last 3 Months or Most Recently Relevant to Health Maintenance Insurance [place] Advance Directives For more information, please contact: [phone] * Full Code (Latest Code Status on [...] patie nt/ legal decision maker Care Teams String Laster Relationship Specialty Start Date End Date Abbey Bagley PA-C PCP - General Physician Linen Attendant 08/15/20 Ino Robbins MD [address] [place] [address] Assigned OBGYN Provider 01/01/23
--- OUTSIDE RECORDS SUMMARY | 2024-08-28 11:08 | XMS_ITS | Encounter Summary ---
Author Organization [place] Address [address] [facility] [place] [address] Care Team Providers Care Business Transformation Manager Name Role Phone Abbey Bagley PA-C Unavailable Unavailable Abbey Bagley PA-C Primary Care Provider Kelley Ko DO Unavailable [phone] Ino Robbins MD Unavailable [phone] Encounter Details Date Type Department Care Team (Late st Contact Info) Description 11/23/2022 [facility] Medical Advice [address] [place] [address] Di Sher RN Social History Tobacco Use Types Packs/Day Years Used Date Smoking Tobacco: Some Days Cigarettes Smokeless Tobacco: Never Alcohol Use Standard Drinks/Week Comments Not Currently 0 (1 standard drink = 0.6 oz pur e alcohol) Seldom PHQ-2 Answer Date Recorded PHQ-2 Score 2 11/26/2022 [place] Depression Scale Answer Date Recorded [place] Depression Score 13 03/10/2021 Last EPDS Self Harm Result Not on file 03/10 Education Answer Date Recorded What is the highest level of school you have completed or the highest degree you have received? 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 No / Unsure 11/26/2022 1:26 PM SANITARY AIDE documented as of this encounter Plan of Treatment Not on file documented as of this encounter Visit Diagnoses Not on filedocumented in this encounter Additional Health Concerns Assessment Noted Time PHQ-9 Depression Total Score: 19 021 3:52 PM CDT documented as of this encounter Care Teams Business Transformation Manager Relationship Specialty Start Date End Date Abbey Bagley PA-C PCP - General Physician Mud Mixer Operator 08/15/20 Abbey Bagley PA-C Physician Mud Mixer Operator 04/11/20 05/02/23 Kelley Diane DO [address] [address] Assigned OBGYN Provider 12/04/22 Ino Robbins MD [address] [place] [address] Assigned OBGYN Provider 01/01/23 documented as of this encounter
--- NOTE | 2024-08-28 11:15 | CRLHL7_ITS ---
For Patients: As a result of the Cures Act, medical imaging exams and procedure reports are released immediately into your electronic medical record. You may view this report before your referring provider. If you have questions, please contact your health care provider. LEFT BREAST ULTRASOUND CLINICAL HISTORY: LEFT breast nipple discharge. COMPARISON: None. TECHNIQUE: Real-time ultrasound imaging of LEFT breast with imaging documentation. FINDINGS: Targeted sonogram LEFT breast in the subareolar region performed. No dilated ducts. No solid mass. No abscess. IMPRESSION: No suspicious findings. No abscess. RECOMMENDATIONS: Clinical follow-up. Results and recommendations were discussed with the patient at the time of the exam. A lay language report of this examination will be provided to the patient. BI-RADS Category 2: Benign Dictated by Ruddy Mosley MD @ 08/28/2024 12:18:46 PM /Dictated by: Ruddy Mosley MD @ 08/28/2024 12:18:00 PM (Electronically Signed)
== END 2024-08-28 11:04 | disposition home or self-care (01) ==
PROVIDERS: PCP Nurse Practitioner Family; Visit Provider Registered Nurse
DX: N64.3 Galactorrhea not associated with childbirth (principal); N93.9 Abnormal uterine and vaginal bleeding, unspecified
CPT/HCPCS: 76642

== ENCOUNTER 2024-09-10 17:05 | Emergency (ER) | payer MEDICAID, SELFPAY ==
[2024-09-10 17:18] VITALS: BP 112/73; PULSE 76; RESP 16; TEMP 35.8; O2SAT 97; BMI 30.2
--- NOTE | 2024-09-10 17:23 | ED_ITS ---
HPI - Wound/Laceration General Chief Complaint: Laceration/Wound Stated Complaint: cut on left hand Time Seen by Provider: 09/10/24 17:09 History of Present Illness HPI narrative: This 24-year-old female comes in with an injury to her left little finger that occurred prior to arrival. She was using a cheese Grater and accidentally scraped the lateral portion of her left little finger. She is uncertain of her tetanus status. Related Data Home Medications ?Medication ?Instructions ?Recorded ?Confirmed omeprazole 40 mg capsule,delayed 40 mg PO DAILY 09/10/24 09/10/24 release Allergies Allergy/AdvReac Type Severity Reaction Status Date / Time tea tree Allergy Mild Verified 08/15/24 10:56 adhesive Allergy Rash Verified 08/15/24 10:56 lamotrigine (From Lamictal) Allergy Verified 08/15/24 10:56 Review of Systems Status of ROS: Reports: 10 or more systems reviewed and unremarkable except as noted in History and below Narrative: Constitutional: No fevers, no weight gain or loss. Eyes: No discharge. No vision changes. HENT: No congestion, no sore throat, no ear pain. Cardiovascular: No chest pain, no palpitations. Respiratory: No shortness of breath, no wheezes, no cough. Gastrointestinal: No abdominal pain, no vomiting, no diarrhea. Genitourinary: No dysuria, no hematuria. Musculoskeletal: Normal range of motion. Skin: No rashes, no pruritis. Neurological: No dizziness, weakness, sensory change, speech change. Endo/Heme/Allergies: No bruising or bleeding. No polydipsia. Pysch: no suicidality, no anxiety, no insomnia. All other systems reviewed and are negative. [facility] Medical History Iron deficiency anemia ?D50.9 - Iron deficiency anemia, unspecified (ICD-10) Constipation ?K59.00 - Constipation, unspecified (ICD-10) Heterozygous MTHFR mutation C677T ?Z15.89 - Genetic susceptibility to other disease (ICD-10) GERD (gastroesophageal reflux disease) ?K21.9 - Gastro-esophageal reflux disease without esophagitis (ICD-10) Genital HSV ?A60.00 - Herpesviral infection of urogenital system, unspecified (ICD-10) Mild intermittent asthma ?J45.20 - Mild intermittent asthma, uncomplicated (ICD-10) Depression, recurrent ?F33.9 - Major depressive disorder, recurrent, unspecified (ICD-10) Generalized anxiety disorder ?F41.1 - Generalized anxiety disorder (ICD-10) IUD (intrauterine device) in place ?Z97.5 - Presence of (intrauterine) contraceptive device (ICD-10) PTSD (post-traumatic stress disorder) ?F43.10 - Post-traumatic stress disorder, unspecified (ICD-10) Eclampsia ?O15.9 - Eclampsia, unspecified as to time period (ICD-10) Migraines ?G43.909 - Migraine, unspecified, not intractable, without status migrainosus (ICD-10) Surgical History Status post bilateral salpingectomy ?Z90.79 - Acquired absence of other genital organ(s) (ICD-10) Family History Maternal Grandfather Heart disease Father Depression Anxiety Alcohol dependence Drug dependence Paternal Grandmother Anxiety Depression Mother Anxiety Depression Diabetes Alcohol dependence Drug dependence Maternal Grandmother Preeclampsia Paternal Grandfather Anxiety Depression Alcohol dependence Eczema Social History Narrative: . 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 No alcohol. No illicit drug use. What is your current living situation?: I presently have a place to live Problems where you live: no known problems In the past 12 months, utilities in danger of being shut off: no In the past 12 mos, have been you worried that your food would run out before you had money to buy more?: never true In the past 12 mos, the food you bought just didn't last and you didn't have money to buy more?: never true Smoking Status: Current every day smoker What tobacco products do you use: cigarettes Do you use any of these nicotine containing products: None Second hand tobacco smoke exposure: Yes How often do you have a drink containing alcohol: never How often do you have six or more drinks on one occasion: Never AUDIT-C Alcohol total score: 0 Non-prescribed substance use: denies use Caffeine: Yes How often does anyone, including family, friends and others, physically hurt you : never How often does anyone, including family, friends and others, insult or talk down to you: never How often does anyone, including family, friends and others, threaten you with harm: never How often does anyone, including family, friends and others, scream or curse at you: never service: No Exam Narrative: Exam Narrative: Constitutional: Well-developed, well-nourished, no acute distress. HEENT: Normocephalic, atraumatic. Neck: Normal range of motion. Nontender. Supple. Heart: Intact distal pulses. Lungs: No chest discomfort. No wheezes, rhonchi, or rales. Abdomen: Nontender. Back: Normal range of motion. Extremities: Normal range of motion. Left little finger has superficial abrasions on the lateral aspect in the distal portion of the finger. Skin: Intact. No rash. Warm. No erythema or pallor. Neurologic: No altered sensation. No weakness. Alert and oriented. Psychiatric: No suicidality. No anxiety or depression. No insomnia. Nursing notes and vitals signs are reviewed. Const: Vital Signs, click to edit/add: Vital Signs - 24 hr 09/10/24 17:18 Temperature 96.5 F L Pulse Rate [Pulse Oximeter] 76 Respiratory Rate 16 Blood Pressure [Ri ght Upper Arm] 112/73 Pulse Oximetry 97 Oxygen Delivery Me thod Room Air Course Vital Signs Vital signs: Initial Vital Signs Temperature 96.5 F L 09/10/24 17:18 Temperature Source Temporal Artery Scan 09/10/24 17:18 Pulse Rate 76 09/10/24 17:18 Respiratory Rate 16 09/10/24 17:18 Blood Pressure 112/73 09/10/24 17:18 Blood Pressure Mean 86 09/10/24 17:18 Blood Pressure Position Supine 09/10/24 17:18 Pulse Oximetry 97 09/10/24 17:18 Oxygen Delivery Method Room Air 09/10/24 17:18 Vital Signs Temperature 96.5 F L 09/10/24 17:18 Pulse Rate 76 09/10/24 17:18 Respiratory Rate 16 09/10/24 17:18 Blood Pressure 112/73 09/10/24 17:18 Pulse Oximetry 97 09/10/24 17:18 Oxygen Delivery Method Room Air 09/10/24 17:18 Temperature 96.5 F L 09/10/24 17:18 Pulse Rate 76 09/10/24 17:18 Respiratory Rate 16 09/10/24 17:18 Blood Pressure 112/73 09/10/24 17:18 Pulse Oximetry 97 09/10/24 17:18 Oxygen Delivery Method Room Air 09/10/24 17:18 MDM - Wound/Laceration MDM Narrative Medical decision making narrative: This patient has superficial abrasion on the left little finger. There is no indication for suture repair. I did apply Dermabond to seal the wound and instructions regarding wound care given. Her tetanus was last updated a year and a half ago. Discharge Plan Discharge Clinical Impression: Laceration Patient Disposition: Home, Self-Care Condition: Improved Additional Instructions: Keep wound clean and dry. Use [id number] medicines as needed and directed. Follow up with MD return if worsening. Prescriptions: No Action omeprazole 40 mg capsule,delayed release(DR/EC) 40 mg PO DAILY Follow Up/Referrals: Comfort Platt, VESSEL MANAGER, WEAPONS OFFICER [employer] [Primary Care Provider] - Stand Alone Forms: [employer]ocial Info Instructions
== END 2024-09-10 17:41 | disposition home or self-care (01) ==
LOC: ED 17:39
PROVIDERS: Emergency Provider Emergency Medicine Emergency Medical Services; PCP Nurse Practitioner Family
DX: S61.412A Laceration without foreign body of left hand, initial encounter (principal); W45.8XXA Other foreign body or object entering through skin, initial encounter; Y93.G3 Activity, cooking and baking
CPT/HCPCS: 12001; 99282; 99284